=== PATIENT | female | born 1945 | race Caucasian/White ===

== ENCOUNTER 2022-10-04 09:24 | Outpatient (OUT) | payer MEDICARE, SELFPAY ==
--- NOTE | 2022-10-04 10:12 | CONS_ITS ---
CONSULTATION DATE: ??10/04/2022 TO:? Rusty Newman D.O. HISTORY:? Patient returns today complaining of 0-4/10 pain in her lower back, dull aching character, increased with activities such as standing, walking and performing transitioning maneuvers.? She feels most comfortable in the semi- recumbent position.? Denies any change in bowel and bladder habits or new sensorimotor changes in the lower extremities.? She has not required any tramadol since her last visit.? She is also taking Zanaflex infrequently, 2 mg b.i.d. as needed. EXAM:? Notable for patient having no clinical radiculopathy or myelopathy involving the lower extremities.? She had no pain with lumbar facet loading maneuvers.? She has nothing to suggest SI joint dysfunction.? In fact, her dysesthesia and hyperesthesia overlying the distribution of the lateral cutaneous branch of the iliohypogastric nerve has improved, and her myofascial spasm of the gluteus medius is also improved.? IMPRESSION:? Patient appears to have residual pain secondary to myofascial spasm, which is mild, of the gluteus medius muscle bilaterally.? She has undergone a successful radiofrequency ablation of the lateral cutaneous branch of the iliohypogastric nerve and she reports the pain as being improved by 90- 95%.? RECOMMENDATIONS:? I have asked her to discontinue tramadol altogether and to use the Zanaflex p.r.n.? We will see her back in the office in three months? time.? I recommend no further intervention for her residual pain symptoms.? As part of providing excellent, safe, comprehensive care, the following was completed at our patient's visit: 1. A medication reconciliation and review to ensure accurate knowledge of current/active medications, including asking our patients to inform us about any [id number]-[id number] medications or herbal remedies/nutritional supplements/alternative remedies. 2. A review to specifically ensure our patients have had annual screening for: elevated body mass index (BMI, see intake chart for exact total), tobacco use, screening for depression, and screening for unhealthy alcohol use.? When screening is concerning, patients are provided with education and the specific recommendation to discuss the concerning health issue and treatment options with their primary care provider. AVERY
== END 2022-10-04 09:25 | disposition home or self-care (01) ==
LOC: PM 09:24
PROVIDERS: PCP Internal Medicine; Visit Provider Anesthesiology Pain Medicine
DX: M62.838 Other muscle spasm (principal)
CPT/HCPCS: G0463

== ENCOUNTER 2023-01-10 08:38 | Outpatient (OUT) | payer MEDICARE, SELFPAY ==
--- NOTE | 2023-01-10 09:05 | P.CN_ITS ---
Consult Note: HPI Data of Consult Patient: known to practice within the last 3 years Requesting Physician: MIREYA KOROMA NP Primary Care Provider: SANGEETHA QUICK Consult Narrative Reason for consult: f/u Narrative: Rach Hernandez a pleasant 77 year old female presents for evalaution and management of chronic low back and bilateral buttock pain. Continues to have >50% pain relief and functional improvement from left and right LCIH RFAs from 09/04. Patient rating pain 6/10 today, had reclast infusion yesterday and has noticed increase in body aches and pain. Has not had zanaflex for one week and has noticed increase in pain. cc:: CC: MIREYA KOROMA NP Review of Systems ROS Status of ROS 10 or more systems reviewed and unremarkable except as noted in history and below Musculoskeletal Reports: back pain and joint pain Meds Home Medications and Allergies Home Medications Medication Instructions Recorded Confirmed Type acetaminophen 325 mg tablet (Aphen) 650 mg PO Q6H PRN pain 10/10/22 10/10/22 History levothyroxine 50 mcg capsule 50 mcg PO DAILY 10/11/22 10/11/22 History ropinirole 0.25 mg tablet 0.25 mg PO DAILY 10/11/22 10/11/22 History rosuvastatin 10 mg tablet 10 mg PO DAILY 10/11/22 10/11/22 History tizanidine 2 mg tablet 2 mg PO BID PRN spasm 10/11/22 10/11/22 History tramadol 50 mg tablet 50 mg PO BID 10/11/22 10/11/22 History zoledronic acid 5 mg/100 mL in ea IV .1 YEAR 01/10/23 History mannitol 5 %-water intravenous piggybck (Reclast) Allergies Allergy/AdvReac Type Severity Reaction Status Date / Time aspirin Allergy Verified 10/10/22 16:09 codeine Allergy Verified 10/10/22 16:09 iodine Allergy Verified 10/10/22 16:09 latex Allergy Verified 10/10/22 16:09 pregabalin [From Lyrica] Allergy Verified 10/10/22 16:09 Sulfa (Sulfonamide Allergy Verified 10/10/22 16:09 Antibiotics) lodine Allergy Uncoded 10/10/22 16:09 Exam Constitutional Documenting provider has reviewed patient's vital signs: yes Common normals: no apparent distress, oriented x3, healthy appearing, alert and well nourished General appearance: cooperative HENMA Common normals: normocephalic, hearing grossly normal bilaterally and moist oral mucous membranes Head and scalp: normocephalic Eye Common normals: PERRL Pupil: PERRL Neck & C-Spine Common normals: full ROM General: normal visual inspection Chest Common normals: inspection of chest normal Respiratory Common normals: normal respiratory effort, no retractions and no use of accessory muscles Back & Pelvis Thoracic spine/upper back: pain with ROM Lumbar spine/lower back: pain with ROM Sacroiliac joints: SI joint(s) abnormal Other: pain with jose l, FADER, ga[place]len. Right>L Extremity Common normals: normal to inspection and full ROM Other: diffuse mild joint pain Neuro Common normals: oriented x3, CN's II-XII intact bilaterally, moves all extremities, no focal motor deficits, no sensory deficits noted and deep tendon reflexes 2+ bilaterally Sensorium/orientation: alert Motor exam: strength 5/5 throughout and no movement abnormalities noted Psych Common normals: mental status grossly normal, thought process normal, cooperative, affect normal, speech normal and activity/motor behavior normal Speech: normal speech Thought process: normal thought process Results Additional Findings Additional findings: I have checked an [place]AR[place] report on this patient today and there are no aberrancies noted in the prescribing history.?? A drug screen was completed and reviewed within the last year, and if there has not been a drug screen completed we ordered one today to monitor higher risk, state monitored pain medication use. As part of providing excellent, safe, comprehensive care, the following was completed at our patient's visit: 1. A medication reconciliation and review to ensure accurate knowledge of current/active medications, including asking our patients to inform us about any [id number] medications or herbal remedies/nutritional supplements/alternative remedies. 2. A review to specifically ensure our patients have had annual screening for: elevated body mass index (BMI), tobacco use, screening for depression, and screening for unhealthy alcohol use. When screening is concerning, patients are provided with education and the specific recommendation to discuss the concerning health issue and treatment options with their primary care provider. Assessment and Plan Assessment and Plan (1) Chronic prescription opiate use: Assessment and Plan: UDS up to date discussed naloxone today, previously prescribed I feel these medications are improving the patient's quality of life and allow them to tolerate activities of daily living as well as participate in recreational activity.? The patient does not report intolerable side effects. The patient is NOT opioid naive and non-pharmacologic and non-opioid treatment has failed to significantly relieve the patient's pain and improve functionality. The patient has a diagnosis that is related to a somatic or visceral pain etiology. ? ?? I reviewed with the patient the potential risks and side effects with the use of? opioid medications including but not limited to respiratory depression,? sedation, and even . I verified the patient has access to naloxone should? these effects occur. I advised the patient to avoid the use of any other? sedation substances including alcohol, THC, and benzodiazepines while? taking opioid medications due to the risk of compounding side effects and? detrimental outcomes. I reviewed the [facility] [facility], pain treatment agreement, urine? drug screen, and opioid start talking forms. The patient was advised to let? their family know they had Naloxone in case they would need to administer? the medication.? ?? (2) Myalgia: (3) Osteoarthritis: (4) Chronic pain syndrome: (5) Lumbar spondylosis: (6) Unspecified mononeuropathy of right lower limb: Assessment and Plan: right LCIH neuritis >50% ongoing pain relief and functional improvement post RFA (7) Unspecified mononeuropathy of left lower limb: Assessment and Plan: right LCIH neuritis >50% ongoing pain relief and functional improvement post RFA (8) Osteoporosis: Assessment and Plan: yearly reclast, had yesterday Plan continue current medications f/u 3 months
== END 2023-01-10 08:39 | disposition home or self-care (01) ==
PROVIDERS: PCP Internal Medicine; Visit Provider Nurse Practitioner
DX: G89.29 Other chronic pain (principal); M47.816 Spondylosis without myelopathy or radiculopathy, lumbar region; M79.10 Myalgia, unspecified site; M19.90 Unspecified osteoarthritis, unspecified site; Z79.891 Long term (current) use of opiate analgesic
CPT/HCPCS: G0463

== ENCOUNTER 2023-04-10 08:35 | Outpatient (OUT) | payer MEDICARE, SELFPAY ==
--- NOTE | 2023-04-10 09:05 | P.CN_ITS ---
Consult Note: HPI Data of Consult Patient: known to practice within the last 3 years Requesting Physician: Rosina Fleming NP Primary Care Provider: SANGEETHA QUICK Consult Narrative Reason for consult: f/u Narrative: Rach Hernandez a pleasant 77 year old female presents for evalaution and management of chronic low back pain with radiculopathy.. Continues to have >50% pain relief and functional improvement from left and right [facility] RFAs from 09/04. Patient rating pain 6/10 today, worse with all activity improved with rest. Patient has been following with [facility] for left shoulder pain and cervical radiculopathy. cc:: CC: Rosina Fleming NP Review of Systems ROS Status of ROS 10 or more systems reviewed and unremark able except as noted in history and below Musculoskeletal Reports: back pain, neck pain, extremity pain and joint pain Meds Home Medications and Allergies Home Medications Medication Instructions Recorded Confirmed Type acetaminophen 325 mg tablet (Aphen) 650 mg PO Q6H PRN pain 10/10/22 10/10/22 History levothyroxine 50 mcg capsule 50 mcg PO DAILY 10/11/22 10/11/22 History ropinirole 0.25 mg tablet 0.25 mg PO DAILY 10/11/22 10/11/22 History rosuvastatin 10 mg tablet 10 mg PO DAILY 10/11/22 10/11/22 History tizanidine 2 mg tablet 2 mg PO BID PRN spasm 10/11/22 10/11/22 History tramadol 50 mg tablet 50 mg PO BID 10/11/22 10/11/22 History zoledronic acid 5 mg/100 mL in ea IV .1 YEAR 01/10/23 History mannitol 5 %-water intravenous piggybck (Reclast) Allergies Allergy/AdvReac Type Severity Reaction Status Date / Time aspirin Allergy Verified 10/10/22 16:09 codeine Allergy Verified 10/10/22 16:09 iodine Allergy Verified 10/10/22 16:09 latex Allergy Verified 10/10/22 16:09 pregabalin [From Lyrica] Allergy Verified 10/10/22 16:09 Sulfa (Sulfonamide Allergy Verified 10/10/22 16:09 Antibiotics) lodine Allergy Uncoded 10/10/22 16:09 Exam Constitutional Documenting provider has reviewed patient's vital signs: yes Common normals: no apparent distress, oriented x3, healthy appearing, alert and well nourished General appearance: cooperative HENNV Common normals: normocephalic, hearing grossly normal bilaterally and moist oral mucous membranes Head and scalp: normocephalic Eye Common normals: PERRL Pupil: PERRL Neck & C-Spine Common normals: full ROM General: normal visual inspection Other: pain with ROM positive spurlings left intermittent radiculopathy to left arm Chest Common normals: inspection of chest normal Respiratory Common normals: normal respiratory effort, no retractions and no use of accessory muscles Back & Pelvis Thoracic spine/upper back: pain with ROM Lumbar spine/lower back: pain with ROM and straight leg raise positive right Sacroiliac joints: SI joint(s) abnormal Other: pain with jose l, FADER, [place]. Right>L patient reports numbness tingling of left foot, positive right straight leg test Extremity Common normals: normal to inspection and full ROM Other: diffuse mild joint pain Neuro Common normals: oriented x3, CN's II-XII intact bilaterally, moves all extremities, no focal motor deficits, no sensory deficits noted and deep tendon reflexes 2+ bilaterally Sensorium/orientation: alert Motor exam: no movement abnormalities noted and strength abnormal (4/5 lue and BLE ) Psych Common normals: mental status grossly normal, thought process normal, cooperative, affect normal, speech normal and activity/motor behavior normal Speech: normal speech Thought process: normal thought process Assessment and Plan Assessment and Plan (1) Lumbar radiculopathy: (2) Chronic prescription opiate use: (3) Myalgia: (4) Chronic pain syndrome: (5) Lumbar spondylosis: (6) Osteoarthritis: (7) Osteoporosis: Plan L5 LENY under fluoroscopy with Dr Baker continue f/u with orthopedics at [facility] for left shoulder OA and cervical radiculopathy continue tramadol 50mg BID PRN and zanaflex 2mg PRN continue tylenol arthritis PRN f/u 2 weeks after injeciton
== END 2023-04-10 08:36 | disposition home or self-care (01) ==
LOC: PM 08:39
PROVIDERS: PCP Internal Medicine; Visit Provider Nurse Practitioner
DX: M54.16 Radiculopathy, lumbar region (principal); Z79.891 Long term (current) use of opiate analgesic; M79.10 Myalgia, unspecified site; G89.4 Chronic pain syndrome; M47.816 Spondylosis without myelopathy or radiculopathy, lumbar region; M19.90 Unspecified osteoarthritis, unspecified site; M81.0 Age-related osteoporosis without current pathological fracture
CPT/HCPCS: G0463

== ENCOUNTER 2023-05-07 07:18 | Day surgery (SDC) | payer MEDICARE, SELFPAY ==
--- OUTSIDE RECORDS SUMMARY | 2023-05-07 07:20 | XMS_ITS | CCD ---
Author Name Unknown Address [address] [place] [address] Organization [facility] Care Team Providers Care Backshoe Person Name Role Phone LAKSHMIPATHY, NARENDRANATH Attending Unava ilable LAKSHMIPATHY, NARENDRANATH Admitting Unava ilable YUHAS, DR VIVAS Primary Care Unavailable LAKSHMIPATHY, NARFAUSTINO Consulting Unava ilable FRACNI .MIREYA Consulting Unavailable BARRAZA ., DR YINKA Alford Consulting Unavailable BARRAZA ., DR YINKA Alford Attending Unavailable BARRAZA ., DR YINKA Alford Admitting Unavailable YUHAS, DR VIVAS Primary Care Unavailable BARRAZA ., DR YINKA Alford Attending Unavailable BARRAZA ., DR YINKA Alford Admitting Unavailable YUAN ., MARIELY Consulting Unavailable YUHAS, DR VIVAS Primary Care Unavailable LAKSHMIPATHY, TOÑA Attending Unava ilable LAKSHMIPATHY, NARENDBHUMIATH Admitting Unava ilable YUHAS, DR VIVAS Primary Care Unavailable LAKSHMIPATHY, NARFAUSTINO Admitting Unava ilable YUHAS, DR VIVAS Primary Care Unavailable LAKSHMIPATHY, TOÑA Attending Unava ilable BARRAZA ., DR YINKA Alford Attending Unavailable BARRAZA ., DR YINKA Alford Admitting Unavailable YUAN ., MARIELY Consulting Unavailable YUHAS, DR VIVAS Primary Care Unavailable LAKSHMIPATHY, TOÑA Attending Unava ilable LAKSHMIPATHY, NARENDBHUMIATH Admitting Unava ilable YUHAS, DR VIVAS Primary Care Unavailable LAKSHMIPATHY, TOÑA Consulting Unava ilable BARRAZA ., DR YINKA Alford Consulting Unavailable BARRAZA ., DR YINKA Alford Attending Unavailable BARRAZA ., DR YINKA Alford Admitting Unavailable YUHAS, DR VIVAS Primary Care Unavailable YUHAS, DR VIVAS Consulting Unavailable YUHAS, DR VIVAS Attending Unavailable YUHAS, DR VIVAS Admitting Unavailable YUHAS, DR VIVAS Primary Care Unavailable Ronaldo Rangel Consulting Unavailable BARRAZA ., DR YINKA Alford Consulting Unavailable BARRAZA ., DR YINKA Alford Attending Unavailable BARRAZA ., DR YINKA Alford Admitting Unavailable YUHAS, DR VIVAS Primary Care Unavailable YUAN ., MARIELY Consulting Unavailable BARRAZA ., DR YINKA Alford Attending Unavailable BARRAZA ., DR YINKA Alford Admitting Unavailable YUAN ., MARIELY Consulting Unavailable YUHAS, DR VIVAS Primary Care Unavailable BARRAZA ., DR YINKA Alford Attending Unavailable BARRAZA ., DR YINKA Alford Admitting Unavailable YUAN ., MARIELY Consulting Unavailable YUHAS, DR VIVAS Primary Care Unavailable BARRAZA ., DR YINKA Alford Attending Unavailable YUAN ., MARIELY Consulting Unavailable YUHAS, DR VIVAS Primary Care Unavailable BARRAZA ., DR YINKA Alford Admitting Unavailable LAKSHMIPATHY, NARENDRANATH Attending Unava ilable LAKSHMIPATHY, NARENDOMAR Admitting Unava ilable YURAFIQ, DR VIVAS Primary Care Unavailable LAKSHMIPATHY, NARENDRANATH Consulting Unava ilable SHANNEN BLAIR Consulting Unavailable LAKSHMIPATHY, NARENDRANATH Attending Unava ilable YUHAS, DR VIVAS Primary Care Unavailable LAKSHMIPATHY, NARENDRANATH Admitting Unava ilable LAKSHMIPATHY, NARENDRANATH Consulting Unava ilable Allergies Allergy Classification Reported Allergen(s) Allergy Type Date of Onset Reaction(s) Facility (1 source) Aspirin Drug Allergy [facility] Repository (1 source) Codeine Drug Allergy [facility] Rep[facility] (1 source) Etodolac Drug Allergy [facility] (1 source) Iodine Drug Allergy [facility] Rep[facility] (1 source) Latex Drug allergy (disorder) [facility] (1 source) pregabalin Drug Allergy [facility] Rep[facility] (1 source) Sulfonamides (Antibiotic) Drug allergy (disorder) [facility] Rep[facility] Problems Active Problems Problem Classification Problem Date Documented Date Episodic/Chronic Anxiety disorders (1 source) Anxiety disorder, unspecified; Translations: [ANXIETY DISORDER UNSPECIFIED] Onset: 08-22-2022 Chronic Other connective tissue disease (1 source) Other muscle spasm; Translations: [OTHER MUSCLE SPASM] Onset: 08-22-2022 Episodic Other hereditary and degenerative nervous system conditions (1 source) Restless legs syndrome; Translations: [RESTLESS LEGS SYNDROME] Onset: 01-13-2022 Chronic Other nervous system disorders (5 sources) Other specified mononeuropathies; Translations: [OTHER SPECIFIED MONONEUROPATHIES] Onset: 07-28-2022 Chronic Other nervous system disorders (4 sources) Other specified mononeuropathies of bilateral lower limbs; Translations: [OTH SPEC MONONEUROPATH MARCIANO LOW LIMB] Onset: 07-24-2022 Chronic Other nervous system disorders (5 sources) Other chronic pain; Translations: [OTHER CHRONIC PAIN] Onset: 02-13-2022 Chronic Other non-traumatic joint disorders (4 sources) Other specific arthropathies, not elsewhere classified, left shoulder; Translations: [OTH SPEC ARTHROPATHIES NEC LT SHLDR] Onset: 05-18-2022 Chronic Spondylosis; intervertebral disc disorders; other back problems (5 sources) Intervertebral disc disorders with myelopathy, lumbar region; Translations: [Other spondylosis with radiculopathy, lumbar region] Onset: 09-07-2021 Chronic Unclassified (1 source) LOW BACK PAIN, UNSPECIFIED; Translations: [LOW BACK PAIN, UNSPECIFIED] Onset: 02-13-2022 Past or Other Problems Problem Classification Problem Date Documented Date Episodic/Chronic Spondylosis; intervertebral disc disorders; other back problems (14 sources) Intervertebral disc disorders with radiculopathy, lumbar region; Translations: [Spinal stenosis, lumbar region without neurogenic claudication] Onset: 12-14-2021 Episodic Results Test Name Value Interpretation Reference Range Facility MRI SHOULDER LT WO CONon MRI SHOULDER LT WO CON EXAMINATION: MRI SHOULDER LT WO CON HISTORY: Arthropathy of left shoulder ; left shoulder pain since falling 2 months ago COMPARISON: No relevant comparison available. TECHNIQUE: A variety of imaging planes and parameters were utilized for visualization of suspected pathology. Imaging was performed without contrast. FINDINGS: ROTATOR CUFF REGION CUFF TENDONS: Disruption of the supraspinatus tendon with approximately 1.5 cm retraction. Evidence of prior rotator cuff repair. Narrowing of the acromial-humeral interval. CUFF MUSCLES: Normal appearing muscles. DELTOID: No significant atrophy or tear. LONG BICEPS TENDON: Poorly seen, but suspected to be intact. No increased fluid surrounding the visible tendon. LABRUM/BICEPS ANCHOR SUPERIOR: No visible labral tear or biceps anchor pathology. ANTERIOR/INFERIOR: No visible tear or attrition. POSTERIOR: No posterior labrum abnormality. CAPSULE No visible capsular laxity or thickening. AC JOINT REGION AC JOINT: Moderate to marked osteoarthropathy with mild-moderate narrowing of the underlying coracoacromial arch. AC LIGAMENTS: Normal acromioclavicular ligament. CC LIGAMENTS: Normal coracoclavicular ligaments. ACROMION: Normal horizontal (Type I) configuration. SUBACROMIAL BURSA: Small effusion. HYALINE CARTILAGE: Moderate marked thinning. OTHER BONES: Changes within lateral humeral head from prior rotator cuff repair. OTHER OBSERVATIONS: Negative. IMPRESSION: 1. Disruption and retraction of the supraspinatus tendon and moderate degenerative changes of the acromioclavicular joint.. 2. Prior rotator cuff repair. 3. Poorly seen long biceps tendon, but suspected to be intact. 4. Small subacromial-subdeltoid bursal fluid collection. 5. Thinning of articular cartilage. Electronically authenticated by: RONALDO RANGEL Date: 2022-05-18 09:45 Normal [facility] 08-29-2021 Albumin [Mass/Vol] 4.0 g/dL Normal 3.6-5.1 [facility] Comment on above: Performed By: #### 7 603, 879, 32640 #### [facility] [place] [address] Test Engine Operator: Finn Akins MD Albumin/Globulin [Mass ratio] 1.9 {ratio} Normal 1.0-2.5 [facility] Comment on above: Performed By: #### 7 946, 373, 73371 #### [facility] [place] [address] Test Engine Operator: Finn Akins MD ALP [Catalytic activity/Vol] 56 U/L Normal 37-153 [facility] Comment on above: Performed By: #### 7 010, 498, 19525 #### [facility] [place] [address] Test Engine Operator: Finn Akins MD ALT [Catalytic activity/Vol] 18 U/L Normal 6-29 [facility] Comment on above: Performed By: #### 7 600, 927, 50380 #### [facility] of [address], [address] [place] [address] Test Engine Operator: Finn Akins MD AST [Catalytic activity/Vol] 18 U/L Normal 10-35 [facility] Comment on above: Performed By: #### 7 600, 927, 76953 #### [facility] of [address], [address] [place] [address] Test Engine Operator: Finn Akins MD Bilirubin [Mass/Vol] 0.4 mg/dL Normal 0.2-1.2 [facility] Comment on above: Performed By: #### 7 600, 927, 29316 #### [facility] of [place] [address] Test Engine Operator: Finn Akins MD BUN/CREATININE RATIO NOT APPLICABLE Normal 6-22 [facility] Comment on above: Performed By: #### 7 600, 927, 79623 #### [facility] of [address], [address] [place] [address] Test Engine Operator: Finn Akins MD Calcium [Mass/Vol] 8.8 mg/dL Normal 8.6-10.4 [facility] Comment on above: Performed By: #### 7 600, 927, 08749 #### [facility] of [place] [address] Test Engine Operator: Finn Akins MD Chloride [Moles/Vol] 106 mmol/L Normal 98-110 [facility] Comment on above: Performed By: #### 7 600, 927, 61007 #### [facility] of [address], [address] [place] [address] Test Engine Operator: Finn Akins MD CO2 [Moles/Vol] 30 mmol/L Normal 20-32 [facility] Comment on above: Performed By: #### 7 600, 927, 32544 #### [facility] of [address], [address] [place] [address] Test Engine Operator: Finn Akins MD Creatinine [Mass/Vol] 0.67 mg/dL Normal 0.60-0.93 [facility] Comment on above: Result Comment: For patients >49 years of age, the reference limit for Creatinine is approximately 13% higher for people identified as -Tuvaluan. Performed By: #### 7 600, 927, 01041 #### [facility] [address], [address] [place] [address] Test Engine Operator: Finn Aikns MD eGFR NON-AFR. SUDANESE 87 mL/min/1.73m2 Normal > OR = 60 [facility] Comment on above: Performed By: #### 7 600, 927, 73316 #### [facility] [address], [address] [place] [address] Test Engine Operator: Finn Akins MD GFR/1.73 sq M.predicted among blacks MDRD (S/P/Bld) [Vol rate/Area] 101 mL/min/{1.73_m2} Normal > OR = 60 [facility] Comment on above: Performed By: #### 7 600, 927, 17437 #### [facility] [address], [address] [place] [address] Test Engine Operator: Finn Akins MD Globulin (S) [Mass/Vol] 2.1 g/dL Normal 1.9-3.7 [facility] Comment on above: Performed By: #### 7 600, 927, 99253 #### [facility] [address], [address] [place] [address] Test Engine Operator: Finn Akins MD Glucose [Mass/Vol] 96 mg/dL Normal 65-99 [facility] Comment on above: Result Comment: Fasting reference interval Performed By: #### 7 600, 927, 32833 #### [facility] [place] [address] Test Engine Operator: Finn Akins MD Potassium [Moles/Vol] 3.9 mmol/L Normal 3.5-5.3 [facility] Comment on above: Performed By: #### 7 600, 927, 69862 #### [facility] of [address], [address] [place] [address] Test Engine Operator: Finn Akins MD Protein [Mass/Vol] 6.1 g/dL Normal 6.1-8.1 [facility] Comment on above: Performed By: #### 7 600, 927, 24012 #### [facility] of [address], [address] [place] [address] Test Engine Operator: Finn Akins MD Sodium [Moles/Vol] 143 mmol/L Normal 135-146 [facility] Comment on above: Performed By: #### 7 600, 927, 32491 #### [facility] of [place] [address] Test Engine Operator: Finn Akins MD Urea nitrogen [Mass/Vol] 17 mg/dL Normal 7-25 [facility] Comment on above: Performed By: #### 7 600, 927, 50814 #### [facility] [place] [address] Test Engine Operator: Finn Akins MD LIPID PANEL, [address] Cholesterol [Mass/Vol] 126 mg/dL Normal <200 [facility] Comment on above: Order Comment: FASTI NG:YES FASTING: YES Performed By: #### 7 600, 927, 64597 #### [facility] of [place] [address] Test Engine Operator: Finn Akins MD Cholesterol in HDL [Mass/Vol] 46 mg/dL Low > OR = 50 [facility] Comment on above: Order Comment: FASTI NG:YES FASTING: YES Performed By: #### 7 600, 927, 42471 #### [facility] of [place] [address] Test Engine Operator: Finn Akins MD Cholesterol in LDL [Mass/Vol] 63 mg/dL Normal [facility] Comment on above: Order Comment: FASTI NG:YES FASTING: YES Result Comment: Refe rence range: <100 Desirable range <100 mg/dL for primary prevention; <70 mg/dL for patients with CHD or diabetic patients with > or = 2 CHD risk factors. LDL-C is now calculated using the Agnes calculation, which is a validated novel method providing better accuracy than the Friedewald equation in the estimation of LDL-C. Aguilar HOLCOMB et al. MCKAY. 2013;310(19): 8763-6774 (http://education.Traffio/faq/WUZ823) Performed By: #### 7 600, 927, 46964 #### [facility] [address], [address] [place] [address] Test Engine Operator: Finn Akins MD Cholesterol.total/ Cholesterol in HDL [Mass ratio] 2.7 {ratio} Normal <5.0 [facility] Comment on above: Order Comment: FASTI NG:YES FASTING: YES Performed By: #### 7 600, 927, 77439 #### [facility] [place] [address] Test Engine Operator: Finn Akins MD NON HDL CHOLESTEROL 80 mg/dL (calc) Normal <130 [facility] Comment on above: Order Comment: FASTI NG:YES FASTING: YES Result Comment: For patients with diabetes plus 1 major ASCVD risk factor, treating to a non-HDL-C goal of <100 mg/dL (LDL-C of <70 mg/dL) is considered a therapeutic option. Performed By: #### 7 600, 927, 47171 #### [facility] [place] [address] Test Engine Operator: Finn Akins MD Triglyceride [Mass/Vol] 86 mg/dL Normal <150 [facility] Comment on above: Order Comment: FASTI NG:YES FASTING: YES Performed By: #### 7 600, 927, 11855 #### [facility] [place] [address] Test Engine Operator: Finn Akins MD VITAMIN B12on 08-29-2021 Cobalamin (Vitamin B12) [Mass/Vol] 184 pg/mL Low 200-1100 [facility] Comment on above: Performed By: #### 7 600, 927, 74798 #### [facility] [place] [address] Test Engine Operator: Finn Akins MD BASIC METABOLIC PANELon Calcium [Mass/Vol] 9.2 mg/dL Normal 8.6-10.4 [facility] Comment on above: Performed By: #### 9 27, 27163, 30259 #### [facility] [place] [address] Test Engine Operator: Finn Akins MD Chloride [Moles/Vol] 102 mmol/L Normal 98-110 [facility] Comment on above: Performed By: #### 9 , 83577, 19207 #### [facility] [place] [address] Test Engine Operator: Finn Akins MD CO2 [Moles/Vol] 28 mmol/L Normal 20-32 [facility] Comment on above: Performed By: #### 9 , 09441, 03309 #### [facility] [place] [address] Test Engine Operator: Finn Akins MD Creatinine [Mass/Vol] 0.56 mg/dL Low 0.60-0.93 [facility] Comment on above: Result Comment: For patients >49 years of age, the reference limit for Creatinine is approximately 13% higher for people identified as -Tuvaluan. Performed By: #### 9 27, 31439, 55156 #### [facility] [place] [address] Test Engine Operator: Finn Akins MD eGFR NON-AFR. SUDANESE 93 mL/min/1.73m2 Normal > OR = 60 [facility] Comment on above: Performed By: #### 9 , 16566, 22660 #### [facility] [place] [address] Test Engine Operator: Finn Akins MD GFR/1.73 sq M.predicted among blacks MDRD (S/P/Bld) [Vol rate/Area] 107 mL/min/{1.73_m2} Normal > OR = 60 [facility] Comment on above: Performed By: #### 9 27, 75281, 30803 #### [facility] [place] [address] Test Engine Operator: Finn Akins MD Glucose [Mass/Vol] 97 mg/dL Normal 65-99 [facility] Comment on above: Result Comment: Fasting reference interval Performed By: #### 9 27, 23951, 94997 #### [facility] [address], [address] [place] [address] Test Engine Operator: Finn Akins MD Potassium [Moles/Vol] 3.8 mmol/L Normal 3.5-5.3 [facility] Comment on above: Performed By: #### 9 27, 99660, 72773 #### [facility] [place] [address] Test Engine Operator: Finn Akins MD Sodium [Moles/Vol] 140 mmol/L Normal 135-146 [facility] Comment on above: Performed By: #### 9 27, 95314, 24276 #### [facility] [place] [address] Test Engine Operator: Finn Akins MD Urea nitrogen [Mass/Vol] 14 mg/dL Normal 7-25 [facility] Comment on above: Performed By: #### 9 27, 63276, 75348 #### [facility] [place] [address] Test Engine Operator: Finn Akins MD Urea nitrogen/Creatinin e [Mass ratio] 25 mg/mg High 6-22 [facility] Comment on above: Performed By: #### 9 27, 67833, 99772 #### [facility] [place] [address] Test Engine Operator: Finn Akins MD TSH+FREE T4on 04-19-2021 Free T4 [Mass/Vol] 1.2 ng/dL Normal 0.8-1.8 [facility] Comment on above: Performed By: #### 9 27, 76679, 98701 #### [facility] [address], [address] [place] [address] Test Engine Operator: Finn Akins MD TSH Qn 0.55 m[IU]/L Normal 0.40-4.50 [facility] Comment on above: Performed By: #### 9 27, 14891, 23879 #### [facility] [address], [address] [place] [address] Test Engine Operator: Finn Akins MD VITAMIN B12on 04-19-2021 Cobalamin (Vitamin B12) [Mass/Vol] 133 pg/mL Low 200-1100 [facility] Comment on above: Performed By: #### 9 27, 46908, 26317 #### [facility] [address], [address] [place] [address] Test Engine Operator: Finn Akins MD Encounters Encounter Date Encounter Type Care Provider Facility Start: 09-28-2022 ambulatory NARENDRANATH LAKSHMIPAT HY Facility:[facility] Start: 09-04-2022 ambulatory NARENDRANATH LAKSHMIPAT HY Facility:[facility] Start: 08-28-2022 End: 08-28-2022 ambulatory NARENDRANATH LAKSHMIPATHY Facility:[facility] Start: 08-16-2022 End: 08-17-2022 ambulatory NARENDRANATH LAKSHMIPATHY Facility:[facility] Start: 07-24-2022 End: 07-24-2022 ambulatory NARENDRANATH LAKSHMIPATHY Facility:[facility] Start: 07-19-2022 End: 07-20-2022 ambulatory NARENDRANATH LAKSHMIPATHY Facility:[facility] Start: 05-18-2022 End: 05-19-[address] SANGEETHA QUICK Facility:[facility] Start: 04-26-2022 End: 04-27-[address] YINKA BARRAZA . Facility:[facility] Start: 04-03-2022 End: 04-03-[address] YINKA BARRAZA . Facility:[facility] Start: 03-27-2022 End: 03-28-[address] YINKA BARRAZA . Facility:[facility] Start: 02-08-2022 End: 02-09-[address] YINKA BARRAZA . Facility:[facility] Start: 01-16-2022 End: 01-16-[address] YINKA BARRAZA . Facility:[facility] Start: 01-11-2022 End: 01-12-[address] YINKA BARRAZA . Facility:[facility] Start: 12-14-2021 End: 12-15-[address] YINKA BARRAZA . Facility:[facility] Start: 09-07-2021 End: 09-08-[address] YINKA BARRAZA . Facility:[facility] Payers Date Payer Category Payer Medicare [id number] 1957 Private Health Insurance CLI [id number] 1945 Unknown [id number] 2.16.84 [id number] 1945 Unknown [id number] 2.16.84 [id number] 1945 Unknown [id number] 2.16.84 [id number] 1945 Unknown [id number] 2.16.84 0.1.235583.3.579.2.593 1945 Unknown [id number] 2.16.84 0.1.383825.3.579.2.593 1945 Unknown [id number] 2.16.84 0.1.974034.3.579.2.593 1945 Unknown [id number] 2.16.84 0.1.210028.3.579.2.593 1945 Unknown [id number] 2.16.84 0.1.153150.3.579.2.593 1945 Unknown [id number] 2.16.84 0.1.036461.3.579.2.593 1945 Unknown [id number] 2.16.84 0.1.039036.3.579.2.593 1945 Unknown [id number] 2.16.84 0.1.461350.3.579.2.593 1945 Unknown [id number] 2.16.84 0.1.850222.3.579.2.593 1945 Unknown [id number] 2.16.84 0.1.424674.3.579.2.593 1945 Unknown [id number] 2.16.84 [id number] 1945 Unknown [id number] 2.16.84 [id number] Consultation note 07-19-2022 Note Date & Type Note Facility 07-19-2022 Note CONSULTATION CONSULTATION DATE: 07/19/2022 TO: Dr. Quick CHIEF COMPLAINT: Includes severe bilateral, right worse than left, buttock pain, hip pain. HISTORY: She describes the pain as 5-7/10 pain, burning in nature with a sharp component, increases with light touch to the area as well as pain with standing, walking and performing transitioning maneuvers. She feels most comfortable in the semi-recumbent position. Denies any change in bowel and bladder habits or new sensorimotor changes in the lower extremities EXAM: Notable for patient having no clinical radiculopathy or myelopathy involving the lower extremities. No pain with lumbar facet joint loading maneuvers. There was significant dysesthesia and hyperesthesia overlying the distribution of the lateral cutaneous branch of the iliohypogastric nerve, more significant on the right than the left side. She had associated myofascial spasm of the lumbar paravertebral muscles as well as the gluteus medius, more significant on the right than the left side. 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 RECOMMENDATIONS: I have increased her Zanaflex 2 mg pill, half a pill to one pill b.i.d. She currently is taking it not on a daily basis. I placed her on Neurontin 100 mg b.i.d. Will proceed with an injection of the lateral cutaneous branch of the iliohypogastric nerve bilaterally under fluoroscopic guidance. As part of providing excellent, safe, comprehensive care, the following was completed at our patient's visit: 1. A medication reconciliation and review to ensure accurate knowledge of current/active medications, including asking our patients to inform us about any [id number] medications or herbal remedies/nutritional supplements/alternative remedies. 2. A review to specifically ensure our patients have had annual screening for: elevated body mass index (BMI, see intake chart for exact total), tobacco use, screening for depression, and screening for unhealthy alcohol use. When screening is concerning, patients are provided with education and the specific recommendation to discuss the concerning health issue and treatment options with their primary care provider. [facility] Consultation note 04-26-2022 Note Date & Type Note Facility 04-26-2022 Note CONSULTATION CONSULTATION DATE: 04/26/2022 HISTORY OF PRESENT ILLNESS: This is a very active, 76-year-old female who returns to the clinic status post lumbar epidural steroid injection completed on 04/03/2022. The patient has received 90% relief and it is ongoing. The patient has commented she is able to lie in bed, transition from bed to standing and just sit without any pain. Her functionality has greatly increased. She does have some increased pain during the evening hours or with increased activity. During those times, her pain will increase to 4/10. At rest today, she is 2/10. She did have a fall last month and hurt her left shoulder, and she is currently under the care of her PCP, Dr. Quick for that management. He has placed her on Zanaflex 4 mg daily and a short course of oral prednisone. Our clinic gives her Requip 1 mg at h.s. and tramadol 50 mg 1- 2 daily p.r.n. Since the procedure, the patient rarely needs the tramadol more than once a day. Patient's REVIEW OF SYSTEMS / PAST MEDICAL HISTORY / ALLERGIES and IMAGES have been reviewed and noted in the chart. PHYSICAL EXAM: VITAL SIGNS: Blood pressure is 148/80. Heart rate is 77. Temperature is 97.7. She is 4'10 and weighs 68 kg. GENERAL IMPRESSION: Pleasant, appropriate, no acute distress. FOCUSED EXAM - BACK: Range of motion is functional in lateral rotation and flexion/extension. Paravertebral muscles are non-spasmodic. No spinal axial pain to deep compression on her lumbar spine. Nicky's point mildly tender to the left. Negative FABERs and compression test. MUSCULOSKELETAL: Motor is intact bilaterally, 4/5. Patient walks unassisted with a steady gait. NEUROLOGICALLY: Patchy hypoesthesia noted along the L1-L2 distribution to the mid thigh region. +1 bilateral patellar and Achilles reflexes. DIAGNOSIS: Lumbar degenerative disc disease, lumbar spinal canal stenosis, lumbar radiculopathy. PLAN: Overall, the patient is doing great. She is not needing her tramadol as often, even though it was increased at her last visit. For her next refill, we will decrease it to 50 mg b.i.d. only. Patient has a pending Neurosurgery consult within the next month or so, and she was asked to update our office once she has that appointment. We will continue to manage her medications for her, at this time, with no other changes. We will see her in three months' time unless otherwise indicated. [facility] Consultation note 03-27-2022 Note Date & Type Note Facility 03-27-2022 Note CONSULTATION CONSULTATION DATE: 03/27/2022 CHIEF COMPLAINT: Low back pain with radiating pain into her leg. HISTORY OF PRESENT ILLNESS: This is a very pleasant, 76-year-old female who is known to the Pain Clinic. The patient has an MRI of 03/29/2021, which was reviewed in office today. She had spinal canal stenosis at the level of L4-L5, herniated disc at the level of L3-L4. The patient reports having increasing pain, radiating into her leg bilaterally. She rates it as a 10/10, electrical feeling. Sitting aggravates the pain. Standing, walking mitigate the pain. Laying down mitigates the pain. She has difficulty with sleeping. She uses Salonpas patch. Bearing down with bowel movements aggravate the patient's pain. The patient currently takes Requip 1 mg, takes tramadol 50 mg daily. We will increase this to t.i.d. The patient also takes Tylenol Arthritis. Baclofen 10 mg h.s. will be added. The patient's PAST MEDICAL HISTORY / SURGICAL HISTORY / REVIEW OF SYSTEMS are noted on the chart along with the MEDICATION LIST / ALLERGIES and the MRI. PHYSICAL EXAM: Upon physical examination, this is a pleasant, cooperative female who looks uncomfortable. VITAL SIGNS: Elevated at 162/98 with a heart rate of 68. At a height of 4'10 , the patient weighs 67 kg. HEAD: Atraumatic. NECK: No overt crepitus is noted. HEART: No orthopnea. LUNGS: No dyspnea. ABDOMEN: Soft, non-distended. BACK: No tenderness or paravertebral spasming is noted. EXTREMITIES: Hypoesthesia is present along the L4 distribution on the left hand side compared to the right hand side. Motor is intact. Slight fade is noted along the anterior tibialis on the left hand side. PSYCHIATRICALLY: Affect is appropriate. IMPRESSION: Lumbar radiculitis, radiculopathy, lumbar spinal canal stenosis, lumbar degenerative disc disease, lumbar disc displacement. PLAN: We will add the baclofen 10 mg h.s. Tramadol will be increased to t.i.d. We shall request a Neurosurgical consult. The patient, in the interim, will receive a lumbar epidural steroid injection to help her through the holidays. The patient understands and would like to proceed. CC: Sangeetha Quick D.O. [facility] Consultation note 02-08-2022 Note Date & Type Note Facility 02-08-2022 Note CONSULTATION CONSULTATION DATE: 02/08/2022 This is a very pleasant and active 76-year-old female who returned to the clinic status post lumbar epidural steroid injection completed on 01/17/2022. The patient states she was afforded 75% relief and it is ongoing. She still experiences night time leg cramps despite being on Requip 1 mg q.h.s. She does take tramadol 50 mg q. day p.r.n. in addition to vitamin B 12. She has tried Lyrica and gabapentin in the past, she is unable to tolerate it due to significant GI upset. She still experiences some right lower lumbar pain but it is episodic, depending on her activity. Housework, sitting, pushing, pulling and lifting aggravates her pain. She does use heat which is beneficial to her. She denies any lower extremity weakness. REVIEW OF SYSTEMS, PAST MEDICAL HISTORY, ALLERGIES AND IMAGES: Have been reviewed and noted in the chart. PHYSICAL EXAM: VITAL SIGNS: Blood pressure 126/74, heart rate is 65, temperature is 97.3. Height is 4'10, weighs 68 kg. GENERAL APPEARANCE: Pleasant, appropriate and in no acute distress. FOCUSED EXAM: BACK: Range of motion was functional in lateral rotation and flexion/extension. Paravertebral muscles are non-spasmodic. Mild spinoaxial pain upon compression of the lower lumbar facets of L4, L5 and S1 to the right. Nicky's point nontender bilaterally. MUSCULOSKELETAL: Muscle atrophy noted bilateral lower extremities, however, she has a stable and steady gait. She does not use an assistive device. Slight motor weakness to bilateral anterior tibialis, extensors are intact. NEUROLOGICAL: Diffuse polyneuropathy bilateral lower extremities to the foot. Plus 1 bilateral patellar reflexes. DIAGNOSIS: Lumbar spinal canal stenosis, lumbar radiculitis, lumbar degenerative diffuse and chronic lower back pain. PLAN: I did recommend her to take magnesium 400 mg q. day. I explained that this possibly helped with her leg cramps. She currently does not take a multivitamin but was strongly encouraged to do so. We will send a refill for her Tramadol 50 mg q. day p.r.n. We will see her in three months' time unless otherwise indicated. The patient agrees with this plan. [facility] Consultation note 01-11-2022 Note Date & Type Note Facility 01-11-2022 Note CONSULTATION CONSULTATION DATE: 01/11/2022 HISTORY OF PRESENT ILLNESS: This is a pleasant and active, 76-year-old female returning to the clinic for a one month follow up and medication evaluation. Patient was last seen on 12/14/2021 which, at that time, she was placed on Lyrica 50 mg daily for 30 days. Patient unfortunately experienced projectile vomiting with the medication despite taking it with food and different times during the day. She has since stopped taking it. Patient does have known spinal canal stenosis and restless leg syndrome. She was placed on Requip in the past at 0.25 mg. The patient is feeling slight benefit to it, but her evening and sleep hours are the worst. She feels her restless leg is getting progressively worse. She does occasionally do stretches in a sitting forward flexion stance, which decreases the radiating pain down her right leg. Activities that aggravate her pain are twisting, prolonged sitting, lying down and transitioning positions. She currently does not use heat or ice. In addition to the Requip, she takes tramadol 50 mg daily p.r.n. in addition to Tylenol Arthritis. The patient is unable to take NSAIDs due to GI issues. The patient denies any new pain pattern, falls or vasomotor weakness. Patient's REVIEW OF SYSTEMS / PAST MEDICAL HISTORY / ALLERGIES and IMAGES have been reviewed and they are noted on the chart. PHYSICAL EXAM: VITAL SIGNS: Blood pressure 137/77, heart rate is 69. Temperature is 97.5. She is 4'10 and weighs 65.8 kg. GENERAL IMPRESSION: Pleasant, appropriate, no acute distress. FOCUSED EXAM - BACK: Range of motion is functional in lateral rotation and flexion/extension. Paravertebral muscles are non-spasmodic. Upon compression of the posterior elements of the lumbar facets, no reproduction of spinal axial pain. Nicky's point mildly tender to the right with no radiating pain. FABERs and compression test are negative MUSCULOSKELETAL: Muscle atrophy noted diffusely bilateral lower extremities, right greater than left. There is atrophy to the right anterior tibialis. Extensors are intact. +1 bilateral patellar and Achilles reflexes. NEUROLOGICAL: Patchy hypoesthesia noted along the L5-S1 dermatome to the right to the level of the toes. DIAGNOSIS: Lumbar spinal canal stenosis, lumbar radiculitis, lumbar degenerative disc disease and restless leg syndrome. PLAN: We will increase the Requip to 1 mg q.h.s. Unfortunately, since the patient is unable to tolerate the Lyrica, that medication will be discontinued. We will move forward with a lumbar epidural steroid injection at the level of L3, L4 and patient was instructed to continue doing the seated flexion stretches for relief. I did encourage a menthol heat rub and heat application. The patient will be brought back to the clinic post procedure and all questions answered. Patient would like to move forward. [facility] Consultation note 12-14-2021 Note Date & Type Note Facility 12-14-2021 Note CONSULTATION PROCEDURE DATE: 12/14/2021 PREOPERATIVE DIAGNOSIS: Bilateral lumbar paravertebral spasms. POSTOPERATIVE DIAGNOSIS: Bilateral lumbar paravertebral spasms. PROCEDURE: Bilateral lumbar trigger point injection x2. Subsequent to obtaining informed consent, the patient was placed in the upright standing forward flexion position. Alcohol prep was used to sterilize the site. A 25 gauge needle with 0.125% Marcaine and 40 mg of Kenalog was divided into two locations. The needle was placed to rest inside the trigger zone. Negative heme. Medication was directed in a fan-like pattern. Patient tolerated the procedure well with no overt complications and will be followed up in the office. [facility] Consultation note 12-14-2021 Note Date & Type Note Facility 12-14-2021 Note CONSULTATION CONSULTATION DATE: 12/14/2021 HISTORY OF PRESENT ILLNESS: This is a pleasant, 75-year-old female returning to the clinic for a three month follow up for her chronic lower back pain. She had lumbar RFAs bilaterally completed in June of 2021. She is complaining of 6-7/10 sharp pain today diffusely across her lower back and radiating pain down her left leg to the level of the dorsum of her foot. It is aggravated by pushing, pulling, lifting, bending and walking. Intermittent use of alternating heat and ice decreases her pain. Medications include tramadol 50 mg daily p.r.n. and Requip 0.25 mg p.r.n. She does use Salonpas patches which are helpful. She does not use an assistive device to walk, and she is ambulatory, active and caring for her two elderly parents. Patient's REVIEW OF SYSTEMS / PAST MEDICAL HISTORY / ALLERGIES and IMAGES have been reviewed and they are noted on the chart. PHYSICAL EXAM: VITAL SIGNS: Blood pressure 118/74, heart rate is 73. Temperature is 97.3. She is 4'10 and weighs 67.6 kg. GENERAL APPEARANCE: Pleasant, appropriate, in no acute distress. FOCUSED EXAM - BACK: Range of motion is functional in lateral rotation and flexion/extension. Paravertebral muscles are taut bilaterally with trigger points identified in bilateral lower lumbar regions. Compression on those regions reproduces patient's pain symptomatology. Nicky's point is non-tender bilaterally and no reproduction of spinal axial pain to compression over the lumbar facets. MUSCULOSKELETAL: Motor is intact, 4/5 bilaterally. Diffuse muscle atrophy noted to bilateral lower extremities. Patient walks with a stable antalgic gait. NEUROLOGICAL: Patchy hypoesthesia noted along the L5 dermatome to the left to the dorsum of the foot. Bilateral patellar and Achilles reflexes are +1. DIAGNOSIS: Lumbar radiculitis, lumbar paravertebral spasms, lumbar degenerative disc disease. PLAN: I discussed with the patient regarding treatment for her radicular pain. We could approach this from a lumbar epidural steroid injection or try a conservative approach with Lyrica. Patient prefers to try the Lyrica first. We will begin with 50 mg in the evening for 30 days. She will be brought back to the clinic in 30 days time for re-evaluation and to revise her plan of as needed. Refill for her tramadol 50 mg daily p.r.n. and Requip 0.25 mg will be sent for her today. She will receive bilateral lumbar trigger point injections, as well, which she does consent to. [facility] Consultation note 09-07-2021 Note Date & Type Note Facility 09-07-2021 Note CONSULTATION CONSULTATION DATE: 09/07/2021 HISTORY OF PRESENT ILLNESS: This is a pleasant, 75-year-old patient who returns to the clinic for a one month appointment following bilateral trigger point injections. The patient states she feels better than she has in a long, long time. At her last appointment, we also restarted her Requip and tramadol. Since then, patient feels her muscle cramps in her lower extremities as well as her back pain and neuropathy are much better controlled. She has also lost 12 pounds in preparation for surgery in the fall. She was referred to [facility] Neuro[facility] and is planning to have surgery in the fall following harvest season. 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 Patient feels that she can make it through the summer with a combination of her medication and occasional trigger point injections. 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 She uses heat daily which decreases her pain. In addition to the Requip and tramadol, she does use Salonpas patches. Patient's REVIEW OF SYSTEMS / PAST MEDICAL HISTORY / ALLERGIES and IMAGES have been reviewed and they are noted on the chart. PHYSICAL EXAM: VITALS: Blood pressure 114/59, heart rate is 74. Temperature is 97.5. She is 4'10 and weighs 71 kg. GENERAL APPEARANCE: Pleasant, appropriate and vital. FOCUSED EXAM - BACK: Range of motion is somewhat guarded in lateral rotation and flexion/extension. No reproduction of spinal axial pain to direct compression along the posterior elements of the facets. Bilateral paravertebral muscles are non-spasmodic. MUSCULOSKELETAL: Patient with obvious weight loss. Slight muscle disuse to her lower extremities. Patient ambulates with a steady gait, does not use assistive device. NEUROLOGICALLY: Patchy hypoesthesia noted along L4-5 dermatomes bilaterally. Diffuse polyneuropathy. IMPRESSION: Lumbar spinal canal stenosis, lumbar radiculopathy, lumbar degenerative disc disease and lumbar spondylosis. PLAN: Overall, patient feels her pain is very well managed. We will obtain a U-Tox in the office today. We will continue to maintain her Requip and tramadol. Nutrition and vitamin importance was stressed, as was encouraging her to continue her weight loss journey. Patient was informed that she may call mid summer if she feels the need for trigger point injections that can bridge her to her surgery in the fall. Patient states understanding and agrees with the plan of care. She will be seen in three months' time, unless otherwise indicated. [facility] Signed and Approved by: MARIELY YUAN . 09/14/2021 16:04:00 [facility] Summary Purpose Family History No Family History Records FoundNo Family History Records Found Advance Directives No Advanced Directives Records FoundNo Advanced Directives Records Found Additional Source Comments INFORMATION SOURCE (unrecogn ized section and content) DATE CREATED AUTHOR 09/01/2021 [facility] DATE CREATED AUTHOR AUTHOR'S ORGANIZ ATION 08/29/2022 [facility] FOR RECORDS PERTAINING TO PATIENTS WHO ARE OR HAVE BEEN ENROLLED IN A CHEMICAL DEPENDENCY/SUBSTANCEABUSE PROGRAM, SOME INFORMATION MAY BE OMITTED. This clinical summary was aggregated from multiple sources. Caution should be exercised in using it in the provision of clinical care. This summary normalizes information from multiple sources, and as a consequence, information in this document may materially change the coding, format and clinical context of patient data. In addition, data may be omitted in some cases. CLINICAL DECISIONS SHOULD BE BASED ON THE PRIMARY CLINICAL RECORDS. [employer] [facility]. provides no warranty or guarantee of the accuracy or completeness of information in this document.
[2023-05-07 07:35] VITALS: BP 151/79; PULSE 77; RESP 16; TEMP 36.2; O2SAT 98
[2023-05-07] MEDS: IOHEXOL 240 MG/ML - 10 ML VIAL INJ (08:45)
[2023-05-07] MEDS: 0.9 % SODIUM CHLORIDE 10 ML SYRINGE - SALINE FLUSH 2 ML INJ (08:45)
[2023-05-07] MEDS: BUPIVACAINE HCL 0.25% PF 25 MG/10 ML VIAL 2 ML INJ (08:45)
[2023-05-07] MEDS: METHYLPREDNISOLONE ACETATE 80 MG/ML VIAL INJ (08:45)
[2023-05-07] MEDS: LIDOCAINE HCL 2% PF 100 MG/5 ML VIAL 3 ML INJ (08:45)
[2023-05-07 08:47] VITALS: BP 188/84; BP 188/99; PULSE 78; PULSE 80; RESP 16; RESP 17; O2SAT 97; O2SAT 98
--- NOTE | 2023-05-07 09:10 | P.ON_ITS ---
Date of procedure: 05/07/23 Pre-op diagnosis: Lumbar Radiculopathy Post-op diagnosis: same as pre-op Procedure: Lumbar 5 Epidural Steroid Injection Under fluoroscopic guidance Immediate complications none Solution used for injection: Marcaine 0.25% 2mL, 2cc Normal saline, Depo-Medrol 80mg Omnipaque 3 mL Anesthesia local 2% lidocaine up to 4ml Timeout process compliant After informed consent obtained. Patient brought to the procedure room placed in the prone position. Skin overlying the area was prepped and draped in a sterile fashion using betadine. 25 gauge needle used to raise a skin wheel with local anesthetic over the target area identified under fluoroscopy. A 17 gauge Touhy n eedle Was inserted over the anesthetized area and directed towards the inter- space under fluoroscopic guidance. Epidural space was identified with loss of resistance technique to air. Needle Tip placement confirmed with injection of contrast solution. Steroid solution was then injected. Anesthesia: Local Surgeon: Suma Baker Condition: stable
== END 2023-05-07 08:54 | disposition home or self-care (01) ==
LOC: SURGOUT 07:18
PROVIDERS: PCP Internal Medicine; Visit Provider Anesthesiology Pain Medicine
DX: M54.16 Radiculopathy, lumbar region (principal)
CPT/HCPCS: 62323; J0665; J1040; Q9966

== ENCOUNTER 2023-05-23 09:45 | Outpatient (OUT) | payer MEDICARE, SELFPAY ==
--- NOTE | 2023-05-23 10:06 | PM.CN ---
Consult Note: HPI Data of Consult Patient: known to practice within the last 3 years Requesting Physician: Rosina Fleming NP Primary Care Provider: SANGEETHA QUICK Consult Narrative Reason for consult: f/u Narrative: Rach Hernandez a pleasant 77 year old female presents for evalaution and management of chronic low back pain with radiculopathy.. Continues to have >50% pain relief and functional improvement from left and right [facility] RFAs from 09/04. Patient rating pain 4/10 today.. Patient has been following with [facility] for left shoulder pain and cervical radiculopathy. recent L5 LENY providing 80% ongoing relief and functional improvement. Now having mild to moderate midline low back aching. hx of RFA with benefit, not interested at this time. cc:: CC: Rosina Fleming NP Review of Systems ROS Status of ROS 10 or more systems reviewed and unremarkable except as noted in history and below Musculoskeletal Reports: back pain, neck pain and joint pain Meds Home Medications and Allergies Home Medications Medication Instructions Recorded Confirmed Type acetaminophen 325 mg tablet (Aphen) 650 mg PO Q6H PRN pain 10/10/22 05/07/23 History levothyroxine 50 mcg capsule 50 mcg PO DAILY 10/11/22 05/07/23 History ropinirole 0.25 mg tablet 0.25 mg PO DAILY 10/11/22 05/07/23 History rosuvastatin 10 mg tablet 10 mg PO DAILY 10/11/22 05/07/23 History tizanidine 2 mg tablet 2 mg PO BID PRN spasm 10/11/22 05/07/23 History tramadol 50 mg tablet 50 mg PO BID 10/11/22 05/07/23 History zoledronic acid 5 mg/100 mL in ea IV .1 YEAR 01/10/23 History mannitol 5 %-water intravenous piggybck (Reclast) Allergies Allergy/AdvReac Type Severity Reaction Status Date / Time aspirin Allergy Verified 05/07/23 07:42 codeine Allergy Verified 05/07/23 07:42 iodine Allergy Verified 05/07/23 07:42 latex Allergy Verified 05/07/23 07:42 pregabalin [From Lyrica] Allergy Verified 05/07/23 07:42 Sulfa (Sulfonamide Allergy Verified 05/07/23 07:42 Antibiotics) Exam Constitutional Documenting provider has reviewed patient's vital signs: yes Common normals: no apparent distress, oriented x3, healthy appearing, alert and well nourished General appearance: cooperative HENMT Common normals: normocephalic, hearing grossly normal bilaterally and moist oral mucous membranes Head and scalp: normocephalic Eye Common normals: PERRL Pupil: PERRL Neck & C-Spine Common normals: full ROM General: normal visual inspection Other: pain with ROM positive spurlings left intermittent radiculopathy to left arm Chest Common normals: inspection of chest normal Respiratory Common normals: normal respiratory effort, no retractions and no use of accessory muscles Back & Pelvis Thoracic spine/upper back: pain with ROM Lumbar spine/lower back: pain with ROM and straight leg raise negative bilaterally Sacroiliac joints: SI joint(s) abnormal Other: pain with jose l, FADER, [place]. Right>L Extremity Common normals: normal to inspection and full ROM Other: diffuse mild joint pain Neuro Common normals: oriented x3, CN's II-XII intact bilaterally, moves all extremities, no focal motor deficits, no sensory deficits noted and deep tendon reflexes 2+ bilaterally Sensorium/orientation: alert Motor exam: strength 5/5 throughout and no movement abnormalities noted Psych Common normals: mental status grossly normal, thought process normal, cooperative, affect normal, speech normal and activity/motor behavior normal Speech: normal speech Thought process: normal thought process Results Additional Findings Additional findings: I have checked an OARRS report on this patient today and there are no aberrancies noted in the prescribing history.?? A drug screen was completed and reviewed within the last year, and if there has not been a drug screen completed we ordered one today to monitor higher risk, state monitored pain medication use. As part of providing excellent, safe, comprehensive care, the following was completed at our patient's visit: 1. A medication reconciliation and review to ensure accurate knowledge of current/active medications, including asking our patients to inform us about any [id number]-myl-cwenlrh medications or herbal remedies/nutritional supplements/alternative remedies. 2. A review to specifically ensure our patients have had annual screening for: elevated body mass index (BMI), tobacco use, screening for depression, and screening for unhealthy alcohol use. When screening is concerning, patients are provided with education and the specific recommendation to discuss the concerning health issue and treatment options with their primary care provider. Assessment and Plan Assessment and Plan (1) Lumbar radiculopathy: (2) Chronic prescription opiate use: Assessment and Plan: I have refilled the patient's opioid prescriptions at the above noted dose and schedule.? I feel these medications are improving the patient's quality of life and allow them to tolerate activities of daily living as well as participate in recreational activity.? The patient does not report intolerable side effects. The patient is NOT opioid naive and non-pharmacologic and non-opioid treatment has failed to significantly relieve the patient's pain and improve functionality. The patient has a diagnosis that is related to a somatic or visceral pain etiology. ? ?? I reviewed with the patient the potential risks and side effects with the use of? opioid medications including but not limited to respiratory depression,? sedation, and even . I verified the patient has access to naloxone should? these effects occur. I advised the patient to avoid the use of any other? sedation substances including alcohol, THC, and benzodiazepines while? taking opioid medications due to the risk of compounding side effects and? detrimental outcomes. I reviewed the [employer], pain treatment agreement, urine? drug screen, and opioid start talking forms. The patient was advised to let? their family know they had Naloxone in case they would need to administer? the medication.? ?? A drug screen was completed within the last year, and no aberrancies were noted regarding their use of controlled substances. The patient understands they are subject to the terms and conditions of the pain contract that they have signed. ? ?? I have checked an OARRS report on this patient today and there are no aberrancies noted in the prescribing history.? (3) Myalgia: (4) Chronic pain syndrome: (5) Lumbar spondylosis: (6) Osteoarthritis: (7) Osteoporosis: Plan doing well over all at this time, continues to have abe horse cramps at night but patient has talked with PCP who encourages her to drink more water/electrolytes as patient hates water continue f[facility] OA and cervical radiculopathy continue tramadol 50mg BID PRN and zanaflex 2mg PRN continue tylenol arthritis PRN f/u 2 weeks after injeciton
== END 2023-05-23 09:46 | disposition home or self-care (01) ==
LOC: PM 09:45
PROVIDERS: PCP Internal Medicine; Visit Provider Nurse Practitioner
DX: M54.16 Radiculopathy, lumbar region (principal); Z79.891 Long term (current) use of opiate analgesic; M79.10 Myalgia, unspecified site; G89.4 Chronic pain syndrome; M47.816 Spondylosis without myelopathy or radiculopathy, lumbar region; M19.90 Unspecified osteoarthritis, unspecified site; M81.0 Age-related osteoporosis without current pathological fracture
CPT/HCPCS: G0463

== ENCOUNTER 2023-08-22 09:54 | Outpatient (OUT) | payer MEDICARE, SELFPAY ==
--- NOTE | 2023-08-22 10:12 | P.CN_ITS ---
Consult Note: HPI Data of Consult Patient: known to practice within the last 3 years Requesting Physician: Rosina Fleming NP Primary Care Provider: SANGEETHA QUICK Consult Narrative Reason for consult: f/u Narrative: Rach Hernandez a pleasant 77 year old female presents for evaluation and management of chronic low back pain with radiculopathy.. Continues to have >50% pain relief and functional improvement from left LCIH RFAs from 09/04, less than 50% from right LCI[facility] RFA. Patient rating pain 10/10 today in low back, right posterior hip. Reports sharp stabbing pain increased with activity relieved with standing in one place. Finds benefit to medication regimen without side effect. Recently noticing increase in severe left knee pain, has discussed with PCP who ordered xray imaging consistent with OA, patient would like an orthopedic referral. cc:: CC: Rosina Fleming NP Review of Systems 2 ROS0 Status of ROS 10 or more systems reviewed and unremark able except as noted in history and below Musculoskeletal Reports: back pain, extremity pain and joint pain Meds Home Medications and Allergies Home Medications ?Medication ?Instructions ?Recorded ?Confirmed ?Type acetaminophen 325 mg tablet (Aphen) 650 mg PO Q6H PRN pain 10/10/22 05/07/23 History levothyroxine 50 mcg capsule 50 mcg PO DAILY 10/11/22 05/07/23 History ropinirole 0.25 mg tablet 0.25 mg PO DAILY 10/11/22 05/07/23 History rosuvastatin 10 mg tablet 10 mg PO DAILY 10/11/22 05/07/23 History tizanidine 2 mg tablet 2 mg PO BID PRN spasm 10/11/22 05/07/23 History tramadol 50 mg tablet 50 mg PO BID 10/11/22 05/07/23 History zoledronic acid 5 mg/100 mL in ea IV .1 YEAR 01/10/23 History mannitol 5 %-water intravenous piggybck (Reclast) Allergies Allergy/AdvReac Type Severity Reaction Status Date / Time aspirin Allergy Verified 05/07/23 07:42 codeine Allergy Verified 05/07/23 07:42 iodine Allergy Verified 05/07/23 07:42 latex Allergy Verified 05/07/23 07:42 pregabalin [From Lyrica] Allergy Verified 05/07/23 07:42 Sulfa (Sulfonamide Allergy Verified 05/07/23 07:42 Antibiotics) Exam Constitutional Documenting provider has reviewed patient's vital signs: yes Common normals: no apparent distress, oriented x3, healthy appearing, alert and well nourished General appearance: cooperative HENMT Common normals: normocephalic, hearing grossly normal bilaterally and moist oral mucous membranes Head and scalp: normocephalic Eye Common normals: PERRL Pupil: PERRL Neck & C-Spine Common normals: full ROM General: normal visual inspection Other: pain with ROM positive spurlings left intermittent radiculopathy to left arm Chest Common normals: inspection of chest normal Respiratory Common normals: normal respiratory effort, no retractions and no use of accessory muscles Back & Pelvis Thoracic spine/upper back: pain with ROM Lumbar spine/lower back: pain with ROM, paraspinal muscle spasm Lumbar paraspinal muscle spasm: right and straight leg raise negative bilaterally Sacroiliac joints: SI joint(s) abnormal Other: pain with jose l, FADER, [place]. Right>L Back image (female): 2 1. Trigger points noted below 2. Extremity Common normals: normal to inspection and full ROM Left lower extremity: knee joint Left knee: inspection (mild edema noted, no discoloration or redness), palpation (tenderness most significant over MCL and meniscus), ROM (limited due to pain) and special tests Other: diffuse mild joint pain Neuro Common normals: oriented x3, CN's II-XII intact bilaterally, moves all extremities, no focal motor deficits, no sensory deficits noted and deep tendon reflexes 2+ bilaterally Sensorium/orientation: alert Motor exam: strength 5/5 throughout and no movement abnormalities noted Psych Common normals: mental status grossly normal, thought process normal, cooperative, affect normal, speech normal and activity/motor behavior normal Speech: normal speech Thought process: normal thought process Assessment and Plan Assessment and Plan (1) Myofascial pain: Assessment and Plan: Right paralumbar spinal trigger point injection The procedure risks, hazards and alternatives were discussed with the patient and a proper consent was obtained. The area over the myofascial spasm was prepped with alcohol utilizing sterile technique. After isolating it between two palpating fingertips a 25-gauge 1.75 needle was placed in the center of the myofascial spasms and a negative aspiration was performed. Then 1cc lidocaine,/bupivicaine/kenalog was injected and repeated in two additional surrounding areas. The patient tolerated the procedure well without any apparent difficulties or complications. They were feeling relief by the time the block had set. (2) Chronic prescription opiate use: Assessment and Plan: I feel these medications are improving the patient's quality of life and allow them to tolerate activities of daily living as well as participate in recreational activity.? The patient does not report intolerable side effects. The patient is NOT opioid naive and non-pharmacologic and non-opioid treatment has failed to significantly relieve the patient's pain and improve functionality. The patient has a diagnosis that is related to a somatic or visceral pain etiology. ? ?? I reviewed with the patient the potential risks and side effects with the use of? opioid medications including but not limited to respiratory depression,? sedation, and even . I verified the patient has access to naloxone should? these effects occur. I advised the patient to avoid the use of any other? sedation substances including alcohol, THC, and benzodiazepines while? taking opioid medications due to the risk of compounding side effects and? detrimental outcomes. I reviewed the [employer], pain treatment agreement, urine? drug screen, and opioid start talking forms. The patient was advised to let? their family know they had Naloxone in case they would need to administer? the medication.? ?? A drug screen was completed within the last year, and no aberrancies were noted regarding their use of controlled substances. The patient understands they are subject to the terms and conditions of the pain contract that they have signed. ? ?? I have checked an [facility] report on this patient today and there are no aberrancies noted in the prescribing history.? (3) Unspecified mononeuropathy of left lower limb: Assessment and Plan: greater than 50% improvement ongoing from left LCI[facility] RFA (4) Unspecified mononeuropathy of right lower limb: Assessment and Plan: patient feels prior right LCIH RFA is wearing off, would like to consider repeating (5) Lumbar spondylosis: (6) Chronic pain syndrome: (7) Left knee pain: (8) Osteoarthritis of left knee: Plan TPI performed as noted above, significant improvement in low back pain upon completion continue medications referral to Dr Mckeon for evaluation of left knee pain/edema/OA f/u 1 month, can consider repeat right LCIH nerve RFA as previous RFA provided >50% improvement greater than 6 months if moderate to severe pain persits
--- OUTSIDE RECORDS SUMMARY | 2023-08-22 10:18 | XMS_ITS | CCD ---
Author Organization [facility] Care Team Providers Care Supervisor [facility] Name Role Phone LAKSHMIPATHY, NARENDRANATH Attending Unava ilable LAKSHMIPATHY, NARENDRANATH Admitting Unava ilable YUHAS, DR VIVAS Primary Care Unavailable LAKSHMIPATHY, NARFAUSTINO Consulting Unava ilable FRANCI .MIREYA Consulting Unavailable BARRAZA ., DR YINKA Mon Consulting Unavailable BARRAZA ., DR YINKA Mon Attending Unavailable BARRAZA ., DR YINKA Mon Admitting Unavailable YUHAS, DR VIVAS Primary Care Unavailable BARRAZA ., DR YINKA Mon Attending Unavailable BARRAZA ., DR YINKA Mon Admitting Unavailable YUAN ., MARIELY Consulting Unavailable ABDELRAHMAN, DR VIVAS Primary Care Unavailable LAKSHMIPATHY, TOÑA Attending Unava ilable LAKSHMIPATHY, NARENDBHUMIATH Admitting Unava ilable YUHAS, DR VIVAS Primary Care Unavailable LAKSHMIPATHY, NARENDOMAR Admitting Unava ilable YUHAS, DR VIVAS Primary Care Unavailable LAKSHMIPATHY, TOÑA Attending Unava ilable CHRISTI ., DR YINKA Mon Attending Unavailable BARRAZA ., DR YINKA Mon Admitting Unavailable YUAN ., MARIELY Consulting Unavailable YUHAS, DR VIVAS Primary Care Unavailable LAKSHMIPATHY, NARFAUSTINO Attending Unava ilable LAKSHMIPATHY, NARENDOMAR Admitting Unava ilable YUHAS, DR VIVAS Primary Care Unavailable LAKSHMIPATHY, NARFAUSTINO Consulting Unava ilable BARRAZA ., DR YINKA Mon Consulting Unavailable BARRAZA ., DR YINKA Mon Attending Unavailable BARRAZA ., DR YINKA Mon Admitting Unavailable YUHAS, DR VIVAS Primary Care Unavailable YUHAPrashanth, DR VIVAS Consulting Unavailable YUHAS, DR VIVAS Attending Unavailable YUHAS, DR VIVAS Admitting Unavailable YUHAPrashanth, DR VIVAS Primary Care Unavailable Ronaldo Rangel Consulting Unavailable BARRAZA ., DR YINKA Mon Consulting Unavailable BARRAZA ., DR YINKA Mon Attending Unavailable BARRAZA ., DR YINKA Mon Admitting Unavailable YUHAS, DR VIVAS Primary Care Unavailable YUAN ., MARIELY Consulting Unavailable BARRAZA ., DR YINKA Mon Attending Unavailable BARRAZA ., DR YINKA Mon Admitting Unavailable YUAN ., MARIELY Consulting Unavailable YUHAS, DR VIVAS Primary Care Unavailable BARRAZA ., DR YINKA Mon Attending Unavailable BARRAZA ., DR YINKA Mon Admitting Unavailable YUAN ., MARIELY Consulting Unavailable YUHAS, DR VIVAS Primary Care Unavailable BARRAZA ., DR YINKA Mon Attending Unavailable YUAN ., MARIELY Consulting Unavailable YUHAS, DR VIVAS Primary Care Unavailable BARRAZA ., DR YINKA Mon Admitting Unavailable LAKSHMIPATHY, NARENDRANATH Attending Unava ilable LAKSHMIPATHY, NARENDBHUMIATH Admitting Unava ilable YUHAS, DR VIVAS Primary Care Unavailable LAKSHMIPATHY, NARENDRANATH Consulting Unava ilable SHANNEN BLAIR Consulting Unavailable LAKSHMIPATHY, NARENDRANATH Attending Unava ilable YUHAS, DR VIVAS Primary Care Unavailable LAKSHMIPATHY, NARENDRANATH Admitting Unava ilable LAKSHMIPATHY, NARENDRANATH Consulting Unava ilable YuhaSangeetha mon DO Primary Care Provider [phone] SANGEETHA QUICK Referring Unavailable YUHAS, SANGEETHA L Primary Care Unavailable YUMAYOS, SANGEETHA L Attending Unavailable YUHAS, SANGEETHA L Referring Unavailable YUHAS, SANGEETHA L Primary Care Unavailable YUHAS, SANGEETHA L Attending Unavailable YUHAS, SANGEETHA L Referring Unavailable YUHAS, SANGEETHA L Primary Care Unavailable YUHAS, SANGEETHA L Attending Unavailable YUHAS, SANGEETHA L Referring Unavailable YUHAS, SANGEETHA L Primary Care Unavailable YUHAS, SANGEETHA L Attending Unavailable YUHAS, SANGEETHA L Referring Unavailable YUHAS, SANGEETHA L Primary Care Unavailable YUHAS, SANGEETHA L Attending Unavailable YUHAS, SANGEETHA L Referring Unavailable YUHAS, SANGEETHA L Primary Care Unavailable Allergies Allergy Classification Reported Allergen(s) Allergy Type Date of Onset Reaction(s) Facility (1 source) Aspirin Drug Allergy [facility] Repository (4 sources) Codeine; Translations: [CODEINE] Drug Allergy 8 [facility]ository (1 source) Etodolac Drug Allergy [facility] (4 sources) Iodine; Translations: [IODINE] Drug Allergy 8 [facility] (4 sources) Latex; Translations: [LATEX] Drug allergy (disorder) 3 [facility] (1 source) pregabalin Drug Allergy [facility] (1 source) Sulfonamides (Antibiotic) Drug allergy (disorder) [facility] (6 sources) Aspirin; Translations: [ASPIRIN, BUFFERED] Drug Allergy 8 [facility] (3 sources) Codeine Drug Allergy 8 Rash [facility] (6 sources) Etodolac; Translations: [ETODOLAC] Drug Allergy 3 [facility] (3 sources) Iodine Drug Allergy 8 Anaphylaxis [facility] (3 sources) Latex Propensity to adverse reactions to drug 3 [facility] (6 sources) Penicillins; Translations: [PENICILLINS] Propensity to adverse reactions to drug 8 [facility] (6 sources) Sulfonamides (Antibiotic); Translations: [SULFA (SULFONAMIDE ANTIBIOTICS)] Propensity to adverse reactions to drug 8 Rash [facility] Medications Current Medications Medication Drug Class(es) Dates Sig (Normalized) Sig (Original) 8 hr acetaminophen 650 mg extended release oral tablet (3 sources) take 1 tablet by mouth every eight hours in the morning acetaminophen (TYLENOL) 650 mg 8 hr tablet Take 1 tablet (650 mg total) by mouth in the morning. 0 Active cholecalciferol 1.25 mg oral capsule (2 sources) Vitamin D Start: 05-22-2023 take 1 capsule by mouth every week cholecalciferol (VITAMIN D3) 50,000 units capsule TAKE 1 CAPSULE BY MOUTH ONCE WEEKLY 0 05/22/2023 Active ergocalciferol 1.25 mg oral capsule (3 sources) Provitamin D2 Compound Start: 02-16-2023 take 1 capsule by mouth every week ergocalciferol (DRISDOL) 1,250 mcg (50,000 unit) capsule TAKE 1 CASPULE BY MOUTH ONCE TIME PER WEEK 0 02/16/2023 Active estradiol 0.1 mg/ml vaginal cream (3 sources) Estrogen Start: 03-19-2023 estradioL (ESTRACE) 0.01 % (0.1 mg/gram) vaginal cream Indications: Lichen planus atrophicus Use at night once or twice weekly 42.5 g 1 03/19/2023 Active levothyroxine sodium 0.05 mg oral tablet (3 sources) l-Thyroxine Start: 05-21-2023 take 1 tablet by mouth once daily levothyroxine (SYNTHROID, LEVOTHROID) 50 MCG tablet Indications: Hypothyroidism TAKE 1 TABLET BY MOUTH EVERY DAY 90 tablet 1 05/31/2023 Active predniSONE 20 mg oral tablet (1 source) Start: 06-25-2023 End: 06-30-2023 take 2 tablets by mouth in the morning predniSONE (DELTASONE) 20 mg tablet Indications: Localized osteoarthritis of left knee Take 2 tablets (40 mg total) by mouth in the morning for 5 days. 10 tablet 0 06/25/2023 06/30/2023 Active rOPINIRole 0.25 mg oral tablet (3 sources) Nonergot Dopamine Agonist Start: 03-15-2022 take 1 tablet by mouth once daily at bedtime rOPINIRole (REQUIP) 0.25 mg tablet TAKE 1 TABLET BY MOUTH EVERY DAY 1-3 HOURS BEFORE BEDTIME 0 03/15/2022 Active rosuvastatin calcium 10 mg oral tablet (3 sources) HMG-CoA Reductase Inhibitor Start: 05-21-2023 take 1 tablet by mouth once daily rosuvastatin (CRESTOR) 10 mg tablet Indications: Hyperlipidemia, unspecified TAKE 1 TABLET BY MOUTH EVERY DAY 90 tablet 1 05/31/2023 Active tiZANidine 2 mg oral tablet (3 sources) Central alpha-2 Adrenergic Agonist Start: 07-14-2022 take 1 tablet by mouth twice daily as needed for muscle spasms tiZANidine (ZANAFLEX) 2 mg tablet Indications: Left cervical radiculopathy TAKE 1 TABLET BY MOUTH TWICE DAILY NEEDED FOR MUSCLE SPASMS 30 tablet 2 07/14/2022 Active traMADol hydrochloride 50 mg oral tablet (3 sources) Opioid Agonist Start: 03-19-2022 traMADoL (ULTRAM) 50 mg tablet vitamin b12 1 mg extended release oral tablet (3 sources) Vitamin B12 Start: 11-07-2022 take 2 tablets by mouth once daily cyanocobalamin, vitamin B-12, (VITAMIN B-12) 1,000 mcg tablet extended release Indications: Deficiency of other specified B group vitamins TAKE 2 TABLETS BY MOUTH EVERY DAY 180 tablet 3 11/07/2022 Active Completed/Discontinued Medications Medication Drug Class(es) Dates Sig (Normalized) Sig (Original) adjuvant AS01B, PF,vial 1 of 2 (SHINGRIX ADJUVANT COMPONENT-PF) suspension (1 source) Start: 07-01-2023 End: 07-01-2023 adjuvant AS01B, PF,vial 1 of 2 (SHINGRIX ADJUVANT COMPONENT-PF) suspension Indications: Immunization due Inject 0.5 mL into the appropriate muscle once for 1 dose. Repeat dose in 2 -4 months 0.5 mL 1 07/01/2023 07/01/2023 clobetasol propionate 0.5 mg/ml topical cream (1 source) Corticosteroid Start: 03-19-2023 End: 05-30-2023 clobetasoL (TEMOVATE) 0.05 % cream Indications: Lichen planus atrophicus Apply 1 Application topically in the morning and 1 Application before bedtime. 30 g 0 03/19/2023 05/30/2023 Discontinued (Patient Stopped On Own) loperamide hydrochloride 2 mg oral tablet (1 source) Opioid Agonist Start: 12-31-2022 End: 05-30-2023 take 1 tablet by mouth four times daily as needed for diarrhea loperamide (IMODIUM A-D) 2 mg tablet Indications: Diarrhea, unspecified type Take 1 tablet (2 mg total) by mouth 4 (four) times a day as needed for diarrhea. 30 tablet 0 12/31/2022 05/30/2023 Discontinued (Patient Stopped On Own) Problems Active Problems Problem Classification Problem Date Documented Date Episodic/Chronic Anxiety disorders (1 source) Anxiety disorder, unspecified; Translations: [ANXIETY DISORDER UNSPECIFIED] Onset: 08-22-2022 Chronic Disorders of lipid metabolism (7 sources) Hyperlipidemia; Translations: [Hyperlipidemia, unspecified] Onset: 12-15-2020 05-30-2023 Chronic Immunizations and screening for infectious disease (1 source) Immunization due; Translations: [Encounter for immunization] 07-01-2023 Episodic Mood disorders (3 sources) Depressive disorder; Translations: [Depressive disorder] Onset: 03-27-2018 12-15-2020 Chronic Osteoarthritis (10 sources) Osteoarthritis of joint of left shoulder region; Translations: [Primary osteoarthritis, left shoulder] Onset: 12-15-2020 05-30-2023 Chronic Osteoporosis (3 sources) Senile osteoporosis; Translations: [Age-related osteoporosis without current pathological fracture] Onset: 12-31-2022 12-31-2022 Chronic Other connective tissue disease (1 source) [...] ARTHROPATHIES NEC LT SHLDR] Onset: 05-18-2022 Chronic Other non-traumatic joint disorders (1 source) Knee pain Onset: 06-25-2023 Episodic 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 sources) Cystocele; Translations: [Cystocele, unspecified] Onset: 12-15-2020 12-15-2020 Chronic Residual codes; unclassified (3 sources) Obstructive sleep apnea syndrome; Translations: [Obstructive sleep apnea (adult) (pediatric)] Onset: 12-15-2020 12-15-2020 Chronic Spondylosis; intervertebral disc disorders; other back problems (8 sources) Intervertebral disc disorders with myelopathy, lumbar region; Translations: [Other spondylosis with radiculopathy, lumbar region] Onset: 05-27-2017 Chronic Thyroid disorders (6 sources) Hypothyroidism; Translations: [Hypothyroidism, unspecified] Onset: 12-15-2020 05-30-2023 Chronic Unclassified (1 source) LOW BACK PAIN, UNSPECIFIED; Translations: [LOW BACK PAIN, UNSPECIFIED] Onset: 02-13-2022 Unclassified (1 source) Injection Onset: 07-25-2023 Unclassified (1 source) lt knee injury, now both hurting Onset: 07-01-2023 Unclassified (1 source) Thyroid Problem Onset: 05-30-2023 Past or Other Problems Problem Classification Problem Date Documented Date Episodic/Chronic Abdominal hernia (3 sources) Hiatal hernia; Translations: [Diaphragmatic hernia without obstruction or gangrene] Onset: 04-17-2022 04-17-2022 Episodic Mood disorders (3 sources) Mood disorders Onset: 05-30-2023 Resolved: 07-01-2023 05-30-2023 Nutritional deficiencies (5 sources) Cobalamin deficiency; Translations: [Deficiency of other specified B group vitamins] Onset: 04-19-2021 05-30-2023 Episodic Other female genital disorders (3 sources) Leukoplakia of vulva; Translations: [Circumscribed scleroderma] Onset: 06-30-2018 12-15-2020 Episodic Other skin disorders (3 sources) Alopecia; Translations: [Nonscarring hair loss, unspecified] Onset: 12-15-2020 12-15-2020 Episodic Spondylosis; intervertebral disc disorders; other back problems (14 sources) Intervertebral disc disorders with radiculopathy, lumbar region; Translations: [Spinal stenosis, lumbar region without neurogenic claudication] Onset: 12-14-2021 Episodic Results Test Name Value Interpretation Reference Range Facility XR KNEE LT 3 VWSon XR KNEE LT 3 VWS XR KNEE LT 3 VWS CLINICAL INFORMATION: Localized osteoarthritis of left knee TECHNIQUE: XR KNEE LT 3 VWS 3 views left knee were obtained. Moderate tricompartmental osteoarthritic changes noted with osteophytes both medially and laterally. No joint effusion is seen. No evidence of fracture. IMPRESSION: Moderate tricompartmental osteoarthritis. Finalized by Jaylen Alejandro MD on 06/27/2023 1:51 PM Normal [facility] COMPREHENSIVE METABOLIC PANE [place] 05-30-2023 Albumin [Mass/Vol] 4.3 g/dL Normal 3.2-5.3 [facility] Comment on above: Performed By: #### C KIMBERLY, 91799-1, THYR #### [facility] ([id number]) [address], [address] [place] [address] ALP [Catalytic activity/Vol] 63 U/L Normal 39-130 [facility] Comment on above: Performed By: #### C KIMBERLY, 86365-3, THYR #### [facility] ([id number]) [address], [address] [place] [address] ALT [Catalytic activity/Vol] 15 U/L Normal 0-31 [facility] Comment on above: Performed By: #### C KIMBERLY, 61052-9, THYR #### [facility] ([id number]) [address], [address] [place] [address] Anion gap [Moles/Vol] 6 mmol/L Normal 5-15 [facility] Comment on above: Performed By: #### C KIMBERLY, 91719-3, THYR #### [facility] ([id number]) [address], [address] [place] [address] AST [Catalytic activity/Vol] 15 U/L Normal 0-41 [facility] Comment on above: Performed By: #### Renee HARRIS, 39832-4, THYR #### [facility] ([id number]) [address], [address] [place] [address] Bilirubin [Mass/Vol] 0.3 mg/dL Normal 0.3-1.2 [facility] Comment on above: Performed By: #### C KIMBERLY, 09963-6, THYR #### [facility] ([id number]) [address], [address] [place] [address] Calcium [Mass/Vol] 9.1 mg/dL Normal 8.5-10.5 [facility] Comment on above: Performed By: #### Renee HARRIS, 12468-4, THYR #### [facility] ([id number]) [address], [address] [place] [address] Chloride [Moles/Vol] 105 mmol/L Normal 98-109 [facility] Comment on above: Performed By: #### C KIMBERLY, 92864-1, THYR #### [facility] ([id number]) [address], [address] [place] [address] CO2 [Moles/Vol] 31 mmol/L Normal 22-32 [facility] Comment on above: Performed By: #### Renee HARRIS, 05733-4, THYR #### [facility] ([id number]) [address], [facility] [address] [place] [address] Creatinine [Mass/Vol] 0.65 mg/dL Normal 0.40-1.00 [facility] Comment on above: Result Comment: METH OD TRACEABLE TO IDMS STANDARD Performed By: #### Renee HARRIS, 40089-2, THYR #### [facility] ([id number]) [address] [place] [address] eGFR (CKD-EPI) NON-RACE DEPENDENT >90 Normal >59 [facility] Comment on above: Result Comment: Reported eGFR is based on the CKD-EPI 2020 equation that does not use a race coefficient. Performed By: #### Renee HARRIS, 41760-1, THYR #### [facility] ([id number]) [address], [address] [place] [address] Glucose [Mass/Vol] 101 mg/dL High 65-99 [facility] Comment on above: Performed By: #### Renee HARRIS, 92872-3, THYR #### [facility] ([id number]) [address] [address] [place] [address] Potassium [Moles/Vol] 4.4 mmol/L Normal 3.5-5.0 [facility] Comment on above: Performed By: #### Renee HARRIS, 37331-1, THYR #### [facility] ([id number]) [address], [address] [place] [address] Protein [Mass/Vol] 6.9 g/dL Normal 6.0-8.0 [facility] Comment on above: Performed By: #### C KIMBERLY, 64800-5, THYR #### [facility] ([id number]) [address], [address] [place] [address] Sodium [Moles/Vol] 142 mmol/L Normal 134-146 [facility] Comment on above: Performed By: #### C KIMBERLY, 74315-5, THYR #### [facility] ([id number]) [address], [address] [place] [address] Urea nitrogen [Mass/Vol] 18 mg/dL Normal 5-27 [facility] Comment on above: Performed By: #### Renee HARRIS, 13315-4, THYR #### [facility] ([id number]) [address], [address] [place] [address] Comprehensive metabolic pane ulices 05-30-2023 Albumin [Mass/Vol] 4.3 g/dL 3.2 - 5.3 g/dL [facility] ALP [Catalytic activity/Vol] 63 U/L 39 - 130 U/L [facility] ALT No additional P-5'-P [Catalytic activity/Vol] 15 U/L 0 - 31 U/L [facility] Anion gap [Moles/Vol] 6 mmol/L 5 - 15 mmol/L [facility] AST [Catalytic activity/Vol] 15 U/L 0 - 41 U/L [facility] Bilirubin [Mass/Vol] 0.3 mg/dL 0.3 - 1.2 mg/dL [facility] Calcium [Mass/Vol] 9.1 mg/dL 8.5 - 10. 5 mg/dL [facility] Chloride [Moles/Vol] 105 mmol/L 98 - 109 mmol/L [facility] CO2 [Moles/Vol] 31 mmol/L 22 - 32 mmol/L [facility] Creatinine [Mass/Vol] 0.65 mg/dL 0.40 - 1.00 mg/dL [facility] Comment on above: METHOD TRACEABLE TO [facility] STANDARD eGFR (CKD-EPI)non-race dependent - PINF [facility] Comment on above: Reported eGFR is based on the CKD-EPI 2020 equation that does not use a race coefficient. Glucose [Mass/Vol] 101 mg/dL High 65 - 99 mg/dL [facility] Potassium [Moles/Vol] 4.4 mmol/L 3.5 - 5.0 mmol/L [facility] Protein [Mass/Vol] 6.9 g/dL 6.0 - 8.0 g/dL [facility] Sodium [Moles/Vol] 142 mmol/L 134 - 146 mmol/L [facility] Urea nitrogen [Mass/Vol] 18 mg/dL 5 - 27 mg/dL [facility] Lipid 1996 panelon Cholesterol [Mass/Vol] 140 mg/dL Low 150 - 200 mg/dL [facility] Cholesterol in HDL [Mass/Vol] 55 mg/dL 39 - PINF mg/dL [facility] Comment on above: HDL <40 mg/dL - High Risk HDL > or = 40mg/dL- Desirable HDL >60 mg/dL - Negative Risk Cholesterol in LDL [Mass/Vol] 69 mg/dL NINF - 130 mg/dL [facility] Comment on above: LDL <100 mg/dL - Desirable LDL >160 mg/dL - High Risk Cholesterol in VLDL [Mass/Vol] 16 mg/dL 0 - 30 mg/dL [facility] Cholesterol.total/C holesterol in HDL [Mass ratio] 2.5 {ratio} 1.0 - 5.0 [facility] Triglyceride [Mass/Vol] 82 mg/dL 27 - 150 mg/dL [facility] Cholesterol [Mass/Vol] 140 mg/dL Low 150-200 [facility] Comment on above: Performed By: #### Renee HARRIS, 47218-0, THYR #### [facility] ([id number]) [address], [address] [place] [address] Cholesterol in HDL [Mass/Vol] 55 mg/dL Normal >39 [facility] Comment on above: Result Comment: HDL <40 mg/dL - High Risk HDL > or = 40mg/dL- Desirable HDL >60 mg/dL - Negative Risk Performed By: #### Renee HARRIS, 46373-7, THYR #### [facility] ([id number]) [address], [address] [place] [address] Cholesterol in LDL [Mass/Vol] 69 mg/dL Normal <130 [facility] Comment on above: Result Comment: LDL <100 mg/dL - Desirable LDL >160 mg/dL - High Risk Performed By: #### Renee HARRIS, 81328-3, THYR #### [facility] ([id number]) [address], [address] [place] [address] Cholesterol in VLDL [Mass/Vol] 16 mg/dL Normal 0-30 [facility] Comment on above: Performed By: #### Renee HARRIS, 47198-7, THYR #### [facility] ([id number]) [address], [address] [place] [address] CHOLESTEROL:HDL 2.5 Normal 1.0-5.0 [facility] Comment on above: Performed By: #### Renee HARRIS, 61860-1, THYR #### [facility] ([id number]) [address], [address] [place] [address] Triglyceride [Mass/Vol] 82 mg/dL Normal 27-150 [facility] Comment on above: Performed By: #### Renee HARRIS, 65331-4, THYR #### [facility] ([id number]) [address], [address] [place] [address] No Panel Informationon 05-30 Interpretation and review of laboratory results Abnormal [facility] THYROID PROFILEon 05-30-2023 Free T4 [Mass/Vol] 0.92 ng/dL Normal 0.61-1.60 [facility] Comment on above: Performed By: #### Renee HARRIS, 68313-0, THYR #### [facility] ([id number]) [address], [address] [place] [address] TSH 0.95 uIU/mL Normal 0.49-4.67 [facility] Comment on above: Performed By: #### Renee HARRIS, 22181-7, THYR #### [facility] ([id number]) [address], [address] [place] [address] Thyroid profile includes TSH FT4on 05-30-2023 Free T4 [Mass/Vol] 0.92 ng/dL 0.61 - 1. 60 ng/dL [facility] TSH Qn 0.95 m[IU]/L [facility] MRI SHOULDER LT WO CONon MRI SHOULDER [...] by: RONALDO RANGEL Date: 2022-05-18 09:45 Normal [facility] METABOLIC PANE [facility] 08-29-2021 Albumin [Mass/Vol] 4.0 g/dL Normal 3.6-5.1 [facility] Comment on above: Performed By: #### 7 655, 728, 23823 #### [facility] [address] [employer]: Finn Akins MD Albumin/Globulin [Mass ratio] 1.9 {ratio} Normal 1.0-2.5 [facility] Comment on above: Performed By: #### 7 683, 880, 56805 #### [facility] [address] [employer] Grinder: Finn Akins MD ALP [Catalytic activity/Vol] 56 U/L Normal 37-153 [facility] Comment on above: Performed By: #### 7 009, 435, 09160 #### [facility] [address], [address] [place], [place] [id number] [employer]: Finn Akins MD ALT [Catalytic activity/Vol] 18 U/L Normal 6-29 [facility] Comment on above: Performed By: #### 7 600, 927, 29730 #### [facility] [place] [address] [employer]: Finn Akins MD AST [Catalytic activity/Vol] 18 U/L Normal 10-35 [facility] Comment on above: Performed By: #### 7 600, 927, 05429 #### [facility] [place] [address] [employer]inder: Finn Akins MD Bilirubin [Mass/Vol] 0.4 mg/dL Normal 0.2-1.2 [facility] Comment on above: Performed By: #### 7 600, 927, 20532 #### [facility] [place] [address] [employer]inder: Finn Akins MD BUN/CREATININE RATIO NOT APPLICABLE Normal 6-22 [facility] Comment on above: Performed By: #### 7 600, 927, 02968 #### [facility] [place] [address] [employer]inder: Finn Akins MD Calcium [Mass/Vol] 8.8 mg/dL Normal 8.6-10.4 [facility] Comment on above: Performed By: #### 7 600, 927, 62209 #### [facility] [place] [address] [employer]inder: Finn Akins MD Chloride [Moles/Vol] 106 mmol/L Normal 98-110 [facility] Comment on above: Performed By: #### 7 600, 927, 99122 #### [facility] [place] [address] [employer]inder: Finn Akins MD CO2 [Moles/Vol] 30 mmol/L Normal 20-32 [facility] Comment on above: Performed By: #### 7 600, 927, 27561 #### [facility] [place] [address] [employer]inder: Finn Akins MD Creatinine [Mass/Vol] 0.67 mg/dL Normal 0.60-0.93 [facility] Comment on above: Result Comment: For patients >49 years of age, the reference limit for Creatinine is approximately 13% higher for people identified as -Gambian. Performed By: #### 7 600, 927, 87566 #### [facility] [place] [place] [address] [employer]: Finn Akins MD eGFR NON-AFR. BARBADIAN 87 mL/min/1.73m2 Normal > OR = 60 [facility] Comment on above: Performed By: #### 7 600, 927, 93544 #### [facility] [place] [address] [employer]inder: Finn Akins MD GFR/1.73 sq M.predicted among blacks MDRD (S/P/Bld) [Vol rate/Area] 101 mL/min/{1.73_m2} Normal > OR = 60 [facility] Comment on above: Performed By: #### 7 600, 927, 70876 #### [facility] [place] [address] [employer] Grinder: Finn Akins MD Globulin (S) [Mass/Vol] 2.1 g/dL Normal 1.9-3.7 [facility] Comment on above: Performed By: #### 7 600, 927, 15176 #### [facility] [place] [address] [employer]inder: Finn Akins MD Glucose [Mass/Vol] 96 mg/dL Normal 65-99 [facility] Comment on above: Result Comment: Fasting reference interval Performed By: #### 7 600, 927, 38150 #### [facility] [place] [address] [employer]inder: Finn Akins MD Potassium [Moles/Vol] 3.9 mmol/L Normal 3.5-5.3 [facility] Comment on above: Performed By: #### 7 600, 927, 81032 #### [facility] [place] [address] [employer]inder: Finn Akins MD Protein [Mass/Vol] 6.1 g/dL Normal 6.1-8.1 [facility] Comment on above: Performed By: #### 7 600, 927, 17525 #### [facility] [place] [address] [employer]inder: Finn Akins MD Sodium [Moles/Vol] 143 mmol/L Normal 135-146 [facility] Comment on above: Performed By: #### 7 600, 927, 99396 #### [facility] [place] [address] [employer]inder: Finn Akins MD Urea nitrogen [Mass/Vol] 17 mg/dL Normal 7-25 [facility] Comment on above: Performed By: #### 7 600, 927, 25236 #### [facility] [place] [address] [employer] Grinder: Finn Akins MD LIPID PANEL, [address] Cholesterol [Mass/Vol] 126 mg/dL Normal <200 [facility] Comment on above: Order Comment: FASTI NG:YES FASTING: YES Performed By: #### 7 600, 927, 94056 #### [facility] [place] [address] [employer]inder: Finn Akins MD Cholesterol in HDL [Mass/Vol] 46 mg/dL Low > OR = 50 [facility] Comment on above: Order Comment: FASTI NG:YES FASTING: YES Performed By: #### 7 600, 927, 49749 #### [facility] [place] [address] [employer]inder: Finn Akins MD Cholesterol in LDL [Mass/Vol] [...] LDL-C. Aguilar HOLCOMB et al. MCKAY. 2013;310(19): 2750-5918 (http://education.Book of Odds.Foldax/faq/HAO602) Performed By: #### 7 600, 927, 27868 #### [facility] [address], [address] [place] [address] Steel Grinder: Finn Akins MD Cholesterol.total/C holesterol in HDL [Mass ratio] 2.7 {ratio} Normal <5.0 [facility] Comment on above: Order Comment: FASTI NG:YES FASTING: YES Performed By: #### 7 600, 927, 37500 #### [facility] [address], [address] [place] [address] Steel Grinder: Finn Akins MD NON HDL CHOLESTEROL 80 mg/dL (calc) Normal <130 [facility] Comment on above: Order Comment: FASTI NG:YES FASTING: YES Result Comment: For patients with diabetes plus 1 major ASCVD risk factor, treating to a non-HDL-C goal of <100 mg/dL (LDL-C of <70 mg/dL) is considered a therapeutic option. Performed By: #### 7 600, 927, 62196 #### [facility] [place] [address] [employer] Grinder: Finn Akins MD Triglyceride [Mass/Vol] 86 mg/dL Normal <150 [facility] Comment on above: Order Comment: FASTI NG:YES FASTING: YES Performed By: #### 7 600, 927, 72763 #### [facility] [place] [address] [employer]inder: Finn Akins MD VITAMIN B12on 08-29-2021 Cobalamin (Vitamin B12) [Mass/Vol] 184 pg/mL Low 200-1100 [facility] Comment on above: Performed By: #### 7 600, 927, 55327 #### [facility] [address], [address] [place] [address] Steel Grinder: Finn Akins MD BASIC METABOLIC PANELon Calcium [Mass/Vol] 9.2 mg/dL Normal 8.6-10.4 [facility] Comment on above: Performed By: #### 9 , 04741, 01843 #### [facility] [address], [address] [place] [address] Steel Grinder: Finn Akins MD Chloride [Moles/Vol] 102 mmol/L Normal 98-110 [facility] Comment on above: Performed By: #### 9 , 16073, 67572 #### [facility] [address], [address] [place] [address] Steel Grinder: Finn Akins MD CO2 [Moles/Vol] 28 mmol/L Normal 20-32 [facility] Comment on above: Performed By: #### 9 , 04685, 17518 #### [facility] [place] [address] [employer] Grinder: Finn Akins MD Creatinine [Mass/Vol] 0.56 mg/dL Low 0.60-0.93 [facility] Comment on above: Result Comment: For patients >49 years of age, the reference limit for Creatinine is approximately 13% higher for people identified as -Gambian. Performed By: #### 9 27, 81101, 54325 #### [facility] [place] [address] [employer] Grinder: Finn Akins MD eGFR NON-AFR. BARBADIAN 93 mL/min/1.73m2 Normal > OR = 60 [facility] Comment on above: Performed By: #### 9 27, 50954, 95555 #### [facility] [place] [address] [employer] Grinder: Finn Akins MD GFR/1.73 sq M.predicted among blacks MDRD (S/P/Bld) [Vol rate/Area] 107 mL/min/{1.73_m2} Normal > OR = 60 [facility] Comment on above: Performed By: #### 9 27, 41799, 66464 #### [facility] [place] [address] [employer]inder: Finn Akins MD Glucose [Mass/Vol] 97 mg/dL Normal 65-99 [facility] Comment on above: Result Comment: Fasting reference interval Performed By: #### 9 27, 47794, 20101 #### [facility] [address], [address] [place] [address] Steel Grinder: Finn Akins MD Potassium [Moles/Vol] 3.8 mmol/L Normal 3.5-5.3 [facility] Comment on above: Performed By: #### 9 , 52173, 69156 #### [facility] [place] [address] [employer] Grinder: Finn Akins MD Sodium [Moles/Vol] 140 mmol/L Normal 135-146 [facility] Comment on above: Performed By: #### 9 27, 24998, 36473 #### [facility] [place] [address] [employer]inder: Finn Akins MD Urea nitrogen [Mass/Vol] 14 mg/dL Normal 7-25 [facility] Comment on above: Performed By: #### 9 27, 37772, 67802 #### [facility] [place] [address] [employer] Grinder: iFnn Akins MD Urea nitrogen/Creatinine [Mass ratio] 25 mg/mg High 6-22 [facility] Comment on above: Performed By: #### 9 , 97413, 94352 #### [facility] [place] [address] [employer] Grinder: Finn Akins MD TSH+FREE T4on 04-19-2021 Free T4 [Mass/Vol] 1.2 ng/dL Normal 0.8-1.8 [facility] Comment on above: Performed By: #### 9 27, 75490, 94822 #### [facility] [address], [address] [place] [address] Steel Grinder: Finn Akins MD TSH Qn 0.55 m[IU]/L Normal 0.40-4.50 [facility] Comment on above: Performed By: #### 9 27, 37677, 88349 #### [facility] [address], [address] [place] [address] Steel Grinder: Finn Akins MD VITAMIN B12on 04-19-2021 Cobalamin (Vitamin B12) [Mass/Vol] 133 pg/mL Low 200-1100 [facility] Comment on above: Performed By: #### 9 27, 45812, 43788 #### [facility] [address], [address] [place] [address] Steel Grinder: Finn Akins MD Vital Signs Date Time Vital Sign Value Performing Clinician Facility 07-01-2023 15:40-0400 Body height 149.9 cm Sangeetha Quick DO Work Phone: [facility] 07-01-2023 15:40-0400 Body mass index (BMI) [Ratio] 31.1 kg/m2 Sangeetha Quick DO Work Phone: [facility] 07-01-2023 15:40-0400 Body temperature 98.2 [degF] Sangeetha Quick DO Work Phone: [facility] 07-01-2023 15:40-0400 Body weight 69.85 kg Sangeetha Quick DO Work Phone: [facility] 07-01-2023 15:40-0400 Diastolic blood pressure 70 mm[Hg] Sangeetha Quick DO Work Phone: [facility] 07-01-2023 15:40-0400 Heart rate 87 /min Sangeetha Quick DO Work Phone: [facility] 07-01-2023 15:40-0400 SaO2% (BldA) [Mass fraction] 99 % Sangeetha Quick DO Work Phone: [facility] 07-01-2023 15:40-0400 Systolic blood pressure 136 mm[Hg] Sangeetha Dunbars DO Work Phone: [facility] 06-25-2023 11:23-0400 Body height 149.9 cm Sangeetha Dunbars DO Work Phone: [facility] 06-25-2023 11:23-0400 Body mass index (BMI) [Ratio] 31.06 kg/m2 Sangeetha Dunbars DO Work Phone: [facility] 06-25-2023 11:23-0400 Body temperature 98.29 [degF] Sangeetha Quick DO Work Phone: [facility] 06-25-2023 11:23-0400 Body weight 69.76 kg Sangeetha Quick DO Work Phone: [facility] 06-25-2023 11:23-0400 Diastolic blood pressure 70 mm[Hg] Sangeetha Quick DO Work Phone: [facility] 06-25-2023 11:23-0400 Heart rate 73 /min Sangeetha Quick DO Work Phone: [facility] 06-25-2023 11:23-0400 SaO2% (BldA) [Mass fraction] 97 % Sangeetha Quick DO Work Phone: [facility] 06-25-2023 11:23-0400 Systolic blood pressure 120 mm[Hg] Sangeetha Dunbars DO Work Phone: [facility] 05-30-2023 10:29-0500 Body height 149.9 cm Sangeetha Dunbars DO Work Phone: [facility] 05-30-2023 10:29-0500 Body mass index (BMI) [Ratio] 30.7 kg/m2 Sangeetha Dunbars DO Work Phone: [facility] 05-30-2023 10:29-0500 Body temperature 98.1 [degF] Sangeetha Dunbars DO Work Phone: [facility] 05-30-2023 10:29-0500 Body weight 68.95 kg Sangeetha Dunbars DO Work Phone: [facility] 05-30-2023 10:29-0500 Diastolic blood pressure 70 mm[Hg] Sangeetha Dunbars DO Work Phone: [facility] 05-30-2023 10:29-0500 Heart rate 71 /min Sangeetha Quick DO Work Phone: [facility] 05-30-2023 10:29-0500 SaO2% (BldA) [Mass fraction] 96 % Sangeetha Quick DO Work Phone: [facility] 05-30-2023 10:29-0500 Systolic blood pressure 120 mm[Hg] Sangeetha Quick DO Work Phone: [facility] Encounters Encounter Date Encounter Type Care Provider Facility Start: 07-25-2023 End: 07-25-2023 ambulatory [facility] Start: 07-01-2023 End: 07-01-2023 ambulatory [facility] Start: 07-01-2023 End: 07-01-2023 Office outpatient visit 25 minutes Sangeetha Quick DO Work Phone: [facility] Comment on above: 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, bilateral (Primary Dx); Osteoarthritis of left shoulder, unspecified osteoarthritis type; Immunization due Start: 06-27-2023 End: 06-28-2023 ambulatory [facility] Start: 06-25-2023 End: 06-25-2023 ambulatory [facility] Start: 06-25-2023 End: 06-25-2023 Office outpatient visit 25 minutes Sangeetha Quick DO Work Phone: [facility] Comment on above: Localized osteoarthr itis of left knee (Primary Dx) Start: 05-30-2023 End: 05-31-2023 ambulatory SANGEETHA Alek QUICK [facility] Start: 05-30-2023 End: 05-30-2023 ambulatory [facility] Start: 05-30-2023 End: 05-30-2023 Office outpatient visit 25 minutes Sangeetha Quick DO Work Phone: [facility] Comment on above: Hypothyroidism, unsp ecified type (Primary Dx); Cobalamin deficiency; Hyperlipidemia, unspecified hyperlipidemia type; Osteoarthritis of left shoulder, unspecified osteoarthritis type Start: 09-28-2022 ambulatory NARENDRANATH LAKSHMIPATHY Facility:[facility] Start: 09-04-2022 ambulatory NARENDRANATH LAKSHMIPATHY Facility:[facility] Start: 08-28-2022 End: 08-28-2022 ambulatory NARENDRANATH [...] End: 01-12-[address] YINKA BARRAZA . Facility: Start: 12-14-2021 End: 12-15-[address] YINKA BARRAZA . Facility:[facility] Start: 09-07-2021 End: 09-08-[address] YINKA BARRAZA . Facility: Procedures Date Procedure Procedure Detail Performing Clinician Start: 07-01-2023 Adult depression screening assessment Sangeetha Quick DO Work Phone: Start: 06-25-2023 Adult depression screening assessment Sangeetha Quick DO Work Phone: Start: 05-30-2023 Adult depression screening assessment Sangeetha Quick DO Work Phone: Plan of Treatment Date Care Activity Detail Author Start: 06-30-2024 Adult BMI Screening Adult BMI Screen ing [facility] Start: 06-30-2024 Depression Screening Depression Scre ening [facility] Start: 06-30-2024 Fall Risk Screening Fall Risk Screen ing [facility] Start: 06-30-2024 Tobacco Screening Tobacco Screening [facility] Start: 06-24-2024 Adult BMI Screening Adult BMI Screen ing [facility] Start: 06-24-2024 Depression Screening Depression Scre ening [facility] Start: 06-24-2024 Fall Risk Screening Fall Risk Screen ing [facility] Start: 06-24-2024 Tobacco Screening Tobacco Screening [facility] Start: 05-30-2024 Adult BMI Screening Adult BMI Screen ing [facility] Start: 05-30-2024 Depression Screening Depression Scre ening [facility] Start: 05-30-2024 Fall Risk Screening Fall Risk Screen ing [facility] Start: 05-30-2024 Tobacco Screening Tobacco Screening [facility] Start: 05-21-2024 DTaP,Tdap and Td Vaccines (2 - Td or Tdap) DTaP,Tdap and Td Vaccines (2 - Td or Tdap) [facility] Start: 12-03-2023 End: 12-03-2023 Patient encounter procedure 12/03/2023 2:00 PM EDT Office Visit [facility] [address] [place] [id number] [facility] Start: 11-28-2023 Medicare Annual Well ness Visit Medicare Annual Wellness Visit [facility] Start: 07-14-2023 Influenza vaccination Influenza Vacc ine [facility] Comment on above: Postponed from 12/14 (Vaccine Not Available) Start: 06-25-2023 End: 06-24-2024 XR Knee - left 3 Views X-ray knee left 3 views Imaging Routine Localized osteoarthritis of left knee Expected: 06/25/2023, Expires: 06/24/2024 [facility] Work Phone: Comment on above: Expected: 06/25/2023 , Expires: 06/24/2024 Start: 12-14-2022 COVID-19 Vaccine ( season) COVID-19 Vaccine ( season) [facility] Start: 12-14-2022 Influenza vaccination Influenza Vacc ine [facility] Start: 12-20-1997 Administration of varicella zoster vaccine Zoster (Shingles) Vaccine (1 of 2) [facility] Start: 12-20-1965 Adult BMI Follow Up Plan Adult BMI F ollow Up Plan [facility] Immunizations Immunization Date Immunization Notes Care Provider Dima landon 04-24-2017 Influenza, injectabl e, Madin [place] Canine Kidney, preservative free, quadrivalent Sangeetha Yuhas DO Work Phone: [facility] 04-24-2017 influenza virus vacc ine, unspecified formulation Sangeetha Dunbars DO Work Phone: [facility] 03-15-2016 pneumococcal polysaccharide vaccine, 23 valent Sangeetha Yuhas DO Work Phone: [facility] 01-11-2016 influenza, seasonal, injectable, preservative free Sangeetha Yuhas DO Work Phone: [facility] 01-05-2015 influenza, seasonal, injectable, preservative free Sangeetha Yuhas DO Work Phone: [facility] 01-05-2015 pneumococcal conjuga te vaccine, 13 valent Sangeetha Yuhas DO Work Phone: [facility] 05-21-2014 pneumococcal polysaccharide vaccine, 23 valent Sangeetha Quick DO Work Phone: [facility] 05-21-2014 tetanus toxoid, redu mary diphtheria toxoid, and acellular pertussis vaccine, adsorbed Sangeetha Quick DO Work Phone: [facility] Payers Date Payer Category Payer Private Health Insurance [employer] [id number] 2021-Present [phone] [address] [address] [place] [address] [id number] 2010 Medicare MEDICARE MEDICAR E PART A & B [id number] 2010-Present [phone] [address] [place] [address] [id number] 1959 Medicare [id number] 1959 Private Health Insurance CLI [id number] 1945 Unknown [id number] [id number] .2.593 1945 Unknown [id number] 2.16.840.1.483842.3.579 .2.59 1945 Unknown [id number] 2.16.840.1.185758.3.579 .2.593 1947 Unknown [id number] 2.16.840.1.105481.3.579 .2.593 1947 Unknown [id number] 2.16.840.1.818443.3.579 .2.593 1947 Unknown [id number] 2.16.840.1.723133.3.579 .2.593 1947 Unknown [id number] 2.16.840.1.766058.3.579 .2.593 1947 Unknown [id number] 2.16.840.1.829662.3.579 .2.593 1947 Unknown [id number] 2.16.840.1.392840.3.579 .2.593 1947 Unknown [id number] 2.16.840.1.191470.3.579 .2.593 1947 Unknown [id number] 2.16.840.1.795100.3.579 .2.593 1947 Unknown [id number] 2.16.840.1.039028.3.579 .2.593 1947 Unknown [id number] 2.16.840.1.443039.3.579 .2.593 1947 Unknown [id number] 2.16840.1.470425.3.579 .2.593 1947 Unknown [id number] 2.16.840.1.694191.3.579 .2.593 1947 Unknown [id number] 2.16.840.1.690979.3.579 .2.1286 1947 Unknown [id number] 2.16.840.1.803925.3.579 .2.1286 1947 Unknown [id number] 2.16840.1.417531.3.579 .2.1286 1947 Unknown [id number] 2.16.840.1.637256.3.579 .2.1286 1947 Unknown [id number] 2.16840.1.492607.3.579 .2.1286 1945 Unknown [id number] 2.16840.1.926803.3.579 .2.1286 Social History Date Type Detail Facility Start: 05-14-2022 Tobacco smoking stat [facility] Never smoked tobacco [facility] Start: 05-14-2022 Tobacco use and exposure Smoke less tobacco non-user [facility] Start: 05-30-2023 End: 07-01-2023 Alcohol intake Current non-drinker of alcohol (finding) [facility] Start: 11-27-2022 End: 07-01-2023 History of Social function [facility] Start: 11-27-2022 End: 07-01-2023 Social connection and isolation panel [facility] Do you belong to any clubs or organizations such as mandaeism groups, unions, fraternal or athletic groups, or school groups? Yes [facility] Are you now , , , , never or living with a partner? [facility] How often to you hav e a drink containing alcohol? Never [facility] How many standard dr inks containing alcohol do you have on a typical day? Patient does not drink [facility] How hard is it for y ou to pay for the very basics like food, housing, medical care, and heating Hard [facility] Do you feel stress - tense, restless, nervous, or anxious, or unable to sleep at night because your mind is troubled all the time - these days [OSQ] Very much [facility] Start: 1945 Sex Assigned At Not on file P [facility] Clinical Notes 09-07-2021 to 07-01-2023 Sangeetha Quick, DO - 07/01/2023 3:45 PM Denise Qucik, DO - 06/25/2023 11:15 AM Denise Quick, DO - 05/30/2023 10:10 AM EST Note Date & Type Note Facility 07-01-2023 History of Present illness Narrative IM PROGRESS NOTE Patient - Rach Munroe Age - 77 y.o. - 1945 ASSESSMENT & PLAN 1. Primary osteoarthritis of knees, bilateral -I reviewed the results of the x-rays recently performed with the patient. Has moderate tricompartmental disease. -has gotten fair to good relief with prednisone orally. -advised patient no absolute indication for injection today since her pain is better. However if the pain would return once the prednisone is gone we can consider another steroid injection, or evaluate for repeat Synvisc injection. 2. Osteoarthritis of left shoulder, unspecified osteoarthritis type -currently seeing pain management for this problem. -no changes today 3. Immunization due -I reviewed the recommended vaccinations with the patient. -she is at the end of season for flu vaccinations. It is not available here in the clinic. I told her to wear a mask if she is in a crowded room at least for the next several weeks. -does need Shingrix vaccination. Written instructions given to the patient, and an order was sent to her pharmacy. Subjective 77-year-old female presents for recheck her knee pain. At last visit was evaluated for knee pain and had x-rays performed which showed moderate tricompartmental osteoarthritis of both knees, especially on the left. She was started on a prednisone burst, and says the pain is much improved, although not gone completely. -she has been able to walk without pain, and able to operate the pedals on her cars, and go up and down stairs without discomfort as she previously noted. -she is here to discuss potential knee injections. She did have Synvisc injections with Orthopedic surgery 5-6 years ago. -no current falls, but the knee does feel unstable. A review of systems was negative except for the following: General: Has questions about what immunizations are needed. Musculoskeletal: gait disturbance, joint pain, and joint stiffness. Exam BP 136/70 (BP Site: Left Arm, BP Postition: Sitting) Pulse 87 Temp 36.8 C (98.2 F) (Oral) Ht 149.9 cm (4' 11 ) Wt 69.9 kg (154 lb) SpO2 99% BMI 31.10 kg/m Physical Exam Vitals reviewed. Constitutional: General: She is not in acute distress. Appearance: She is well-developed. She is obese. She is not toxic-appearing. HENT: Head: Normocephalic. Right Ear: External ear normal. Left Ear: External ear normal. Nose: Nose normal. Mouth/Throat: Mouth: Mucous membranes are moist. Eyes: General: No scleral icterus. Neck: Vascular: No carotid bruit. Cardiovascular: Rate and Rhythm: Normal rate and regular rhythm. Pulses: Normal pulses. Heart sounds: No murmur heard. No gallop. Pulmonary: Effort: Pulmonary effort is normal. Breath sounds: No wheezing or rales. Abdominal: Palpations: Abdomen is soft. Musculoskeletal: General: Tenderness (Medial and lateral joint space on the left knee. Crepitance and possible positive Cody.) present. Right lower leg: No edema. Left lower leg: No edema. Skin: General: Skin is warm and dry. Coloration: Skin is not jaundiced. Findings: No bruising. Neurological: General: No focal deficit present. Mental Status: She is alert and oriented to person, place, and time. Sensory: No sensory deficit. Motor: No weakness. Coordination: Coordination normal. Deep Tendon Reflexes: Reflexes are normal and symmetric. Psychiatric: Mood and Affect: Mood normal. Behavior: Behavior normal. Meds Current Outpatient Medications: acetaminophen (TYLENOL) 650 mg 8 hr tablet, Take 1 tablet (650 mg total) by mouth in the morning., Disp: , Rfl: cholecalciferol (VITAMIN D3) 50,000 units capsule, TAKE 1 CAPSULE BY MOUTH ONCE WEEKLY, Disp: , Rfl: cyanocobalamin, vitamin B-12, (VITAMIN B-12) 1,000 mcg tablet extended release, TAKE 2 TABLETS BY MOUTH EVERY DAY, Disp: 180 tablet, Rfl: 3 ergocalciferol (DRISDOL) 1,250 mcg (50,000 unit) capsule, TAKE 1 CASPULE BY MOUTH ONCE TIME PER WEEK, Disp: , Rfl: estradioL (ESTRACE) 0.01 % (0.1 mg/gram) vaginal cream, Use at night once or twice weekly, Disp: 42.5 g, Rfl: 1 levothyroxine (SYNTHROID, LEVOTHROID) 50 MCG tablet, TAKE 1 TABLET BY MOUTH EVERY DAY, Disp: 90 tablet, Rfl: 1 rOPINIRole (REQUIP) 0.25 mg tablet, TAKE 1 TABLET BY MOUTH EVERY DAY 1-3 HOURS BEFORE BEDTIME, Disp: , Rfl: rosuvastatin (CRESTOR) 10 mg tablet, TAKE 1 TABLET BY MOUTH EVERY DAY, Disp: 90 tablet, Rfl: 1 tiZANidine (ZANAFLEX) 2 mg tablet, TAKE 1 TABLET BY MOUTH TWICE DAILY NEEDED FOR MUSCLE SPASMS, Disp: 30 tablet, Rfl: 2 traMADoL (ULTRAM) 50 mg tablet, , Disp: , Rfl: Lab Results No visits with results within 1 Month(s) from this visit. Latest known visit with results is: Hospital Outpatient Visit on 05/30/2023 Component Date Value Ref Range Status TSH 05/30/2023 0.95 0.49 - 4.67 uIU/mL Final T4, free 05/30/2023 0.92 0.61 - 1.60 ng/dL Final Cholesterol 05/30/2023 140 (L) 150 - 200 mg/dL Final Triglycerides 05/30/2023 82 27 - 150 mg/dL Final HDL Cholesterol 05/30/2023 55 >39 mg/dL Final VLDL 05/30/2023 16 0 - 30 mg/dL Final LDL (calc) 05/30/2023 69 <130 mg/dL Final Cholesterol:HDL Ratio 05/30/2023 2.5 1.0 - 5.0 Final Sodium 05/30/2023 142 134 - 146 mmol/L Final Potassium, Bld 05/30/2023 4.4 3.5 - 5.0 mmol/L Final Chloride 05/30/2023 105 98 - 109 mmol/L Final CO2 05/30/2023 31 22 - 32 mmol/L Final Anion gap 05/30/2023 6 5 - 15 mmol/L Final BUN 05/30/2023 18 5 - 27 mg/dL Final Creatinine 05/30/2023 0.65 0.40 - 1.00 mg/dL Final Glucose 05/30/2023 101 (H) 65 - 99 mg/dL Final Calcium 05/30/2023 9.1 8.5 - 10.5 mg/dL Final Total Protein 05/30/2023 6.9 6.0 - 8.0 g/dL Final Albumin 05/30/2023 4.3 3.2 - 5.3 g/dL Final Alkaline Phosphatase 05/30/2023 63 39 - 130 U/L Final AST 05/30/2023 15 0 - 41 U/L Final ALT 05/30/2023 15 0 - 31 U/L Final Total bilirubin 05/30/2023 0.3 0.3 - 1.2 mg/dL Final eGFR (CKD-EPI)non-race dependent 05/30/2023 >90 >59 ml/min/1.73sq.m Final Other Testing No results found. Sangeetha Quick DO., [facility] Office: [phone] documented in this encounter [facility] 06-25-2023 History of Present illness Narrative IM PROGRESS NOTE Patient - Rach Munroe Age - 77 y.o. - 1945 ASSESSMENT & PLAN 1. Localized osteoarthritis of left knee -still with tenderness and pain, although unable to reproduce any instability on exam today -will obtain x-ray of the knee to look for any significant bony changes -prednisone 40 mg daily for the next 5 days -most likely will need orthopedic re-evaluation - predniSONE (DELTASONE) 20 mg tablet; Take 2 tablets (40 mg total) by mouth in the morning for 5 days. Dispense: 10 tablet; Refill: 0 - X-ray knee left 3 views; Future Subjective 77-year-old female presents for evaluation of left leg pain. Pain located in the left knee area, has been progressively worsening over the past several months. Has had no falls, but it is feeling more unstable. -currently using OTC medications such as Tylenol, topical liniment such as Voltaren gel or icy hot, and getting minimal if any relief. -does apply heat and ice without relief. -does have a history of injections in the left knee by Orthopedics, which she thought gave some temporary partial relief. -there have been no new injuries or trauma to the knee. -it hurts if she tries to bend or get down on her hands and knees to play with her grandchildren. -she did try stopping the tramadol which has been prescribed by pain clinic, and the pain in her knees has gotten much worse. She did restart taking it yesterday. A review of systems was negative except for the following: Musculoskeletal: gait disturbance, joint pain, joint stiffness, and pain in knee - left. Exam BP 120/70 (BP Site: Left Arm, BP Postition: Sitting) Pulse 73 Temp 36.8 C (98.3 F) (Tympanic) Ht 149.9 cm (4' 11 ) Wt 69.8 kg (153 lb 12.8 oz) SpO2 97% BMI 31.06 kg/m Physical Exam Vitals reviewed. Constitutional: General: She is not in acute distress. Appearance: She is well-developed. She is obese. She is not toxic-appearing. HENT: Head: Normocephalic. Right Ear: External ear normal. Left Ear: External ear normal. Nose: Nose normal. Mouth/Throat: Mouth: Mucous membranes are moist. Eyes: General: No scleral icterus. Neck: Vascular: No carotid bruit. Cardiovascular: Rate and Rhythm: Normal rate and regular rhythm. Pulses: Normal pulses. Heart sounds: No murmur heard. No gallop. Pulmonary: Effort: Pulmonary effort is normal. Breath sounds: No wheezing or rales. Abdominal: Palpations: Abdomen is soft. Musculoskeletal: General: Tenderness (Medial and lateral joint space on the left knee. Crepitance and possible positive Cody.) present. Right lower leg: No edema. Left lower leg: No edema. Skin: General: Skin is warm and dry. Coloration: Skin is not jaundiced. Findings: No bruising. Neurological: General: No focal deficit present. Mental Status: She is alert and oriented to person, place, and time. Sensory: No sensory deficit. Motor: No weakness. Coordination: Coordination normal. Deep Tendon Reflexes: Reflexes are normal and symmetric. Psychiatric: Mood and Affect: Mood normal. Behavior: Behavior normal. Meds Current Outpatient Medications: acetaminophen (TYLENOL) 650 mg 8 hr tablet, Take 1 tablet (650 mg total) by mouth in the morning., Disp: , Rfl: cholecalciferol (VITAMIN D3) 50,000 units capsule, TAKE 1 CAPSULE BY MOUTH ONCE WEEKLY, Disp: , Rfl: cyanocobalamin, vitamin B-12, (VITAMIN B-12) 1,000 mcg tablet extended release, TAKE 2 TABLETS BY MOUTH EVERY DAY, Disp: 180 tablet, Rfl: 3 ergocalciferol (DRISDOL) 1,250 mcg (50,000 unit) capsule, TAKE 1 CASPULE BY MOUTH ONCE TIME PER WEEK, Disp: , Rfl: estradioL (ESTRACE) 0.01 % (0.1 mg/gram) vaginal cream, Use at night once or twice weekly, Disp: 42.5 g, Rfl: 1 levothyroxine (SYNTHROID, LEVOTHROID) 50 MCG tablet, TAKE 1 TABLET BY MOUTH EVERY DAY, Disp: 90 tablet, Rfl: 1 rOPINIRole (REQUIP) 0.25 mg tablet, TAKE 1 TABLET BY MOUTH EVERY DAY 1-3 HOURS BEFORE BEDTIME, Disp: , Rfl: rosuvastatin (CRESTOR) 10 mg tablet, TAKE 1 TABLET BY MOUTH EVERY DAY, Disp: 90 tablet, Rfl: 1 tiZANidine (ZANAFLEX) 2 mg tablet, TAKE 1 TABLET BY MOUTH TWICE DAILY NEEDED FOR MUSCLE SPASMS, Disp: 30 tablet, Rfl: 2 traMADoL (ULTRAM) 50 mg tablet, , Disp: , Rfl: predniSONE (DELTASONE) 20 mg tablet, Take 2 tablets (40 mg total) by mouth in the morning for 5 days., Disp: 10 tablet, Rfl: 0 Lab Results Hospital Outpatient Visit on 05/30/2023 Component Date Value Ref Range Status TSH 05/30/2023 0.95 0.49 - 4.67 uIU/mL Final T4, free 05/30/2023 0.92 0.61 - 1.60 ng/dL Final Cholesterol 05/30/2023 140 (L) 150 - 200 mg/dL Final Triglycerides 05/30/2023 82 27 - 150 mg/dL Final HDL Cholesterol 05/30/2023 55 >39 mg/dL Final VLDL 05/30/2023 16 0 - 30 mg/dL Final LDL (calc) 05/30/2023 69 <130 mg/dL Final Cholesterol:HDL Ratio 05/30/2023 2.5 1.0 - 5.0 Final Sodium 05/30/2023 142 134 - 146 mmol/L Final Potassium, Bld 05/30/2023 4.4 3.5 - 5.0 mmol/L Final Chloride 05/30/2023 105 98 - 109 mmol/L Final CO2 05/30/2023 31 22 - 32 mmol/L Final Anion gap 05/30/2023 6 5 - 15 mmol/L Final BUN 05/30/2023 18 5 - 27 mg/dL Final Creatinine 05/30/2023 0.65 0.40 - 1.00 mg/dL Final Glucose 05/30/2023 101 (H) 65 - 99 mg/dL Final Calcium 05/30/2023 9.1 8.5 - 10.5 mg/dL Final Total Protein 05/30/2023 6.9 6.0 - 8.0 g/dL Final Albumin 05/30/2023 4.3 3.2 - 5.3 g/dL Final Alkaline Phosphatase 05/30/2023 63 39 - 130 U/L Final AST 05/30/2023 15 0 - 41 U/L Final ALT 05/30/2023 15 0 - 31 U/L Final Total bilirubin 05/30/2023 0.3 0.3 - 1.2 mg/dL Final eGFR (CKD-EPI)non-race dependent 05/30/2023 >90 >59 ml/min/1.73sq.m Final Other Testing No results found. Sangeetha Quick DO., [facility] Office: [phone] documented in this encounter [facility] 05-30-2023 History of Present illness Narrative IM PROGRESS NOTE Patient - Rach Munroe Age - 77 [facility] 1945 [id number] ASSESSMENT & PLAN 1. Hypothyroidism, unspecified type -currently taking levothyroxine 50 mcg daily -repeat TFT to assess efficacy of current replacement therapy - Thyroid profile includes TSH FT4; Future 2. Cobalamin deficiency -currently taking cyanocobalamin 1000 mcg daily -no change to current treatment 3. Hyperlipidemia, unspecified hyperlipidemia type -currently taking rosuvastatin 10 mg daily -repeat lipid panel to assess efficacy and side effects of current treatment - Lipid profile; Future - Comprehensive metabolic panel; Future 4. Osteoarthritis of left shoulder, unspecified osteoarthritis type -multiple joints, especially low back and left knee -keep routine follow-up with Pain Clinic and orthopedics Subjective 77-year-old female presents for recheck visit on multiple medical conditions. Since her last visit here, has had increased personal stress due to family conditions. Her father . Her mother has moved into a memory unit at a [facility], and a son was found at home. She continues to deal with this, along with the recent of her . She is having trouble communicating with the staff wear her mother's residing now and this causes her much consternation. -she continues to have joint pain in her back, knees, neck. She is going to pain management for LENY of the lumbar spine which overall seem to be helping. Still on tramadol and tizanidine regularly. -she is taking her thyroid medication routinely. Has not had thyroid function checked for nearly a year or more. -previously had a very low B12 level, and is taking B12 supplementation. -bowel symptoms have improved, no longer having diarrhea. -she is concerned that she might be having memory loss. Sometimes forget some names, and feels flustered when lots of things are happening at once. A review of systems was negative except for the following: Psychiatric: concentration difficulties and depression ENT: hearing change and frequent sinus congestion Genito-Urinary: urinary frequency/urgency Musculoskeletal: joint pain, joint stiffness, and occasional instability in the left knee Neurological: numbness/tingling. Exam BP 120/70 (BP Site: Left Arm, BP Postition: Sitting) Pulse 71 Temp 36.7 C (98.1 F) (Oral) Ht 149.9 cm (4' 11 ) Wt 68.9 kg (152 lb) SpO2 96% BMI 30.70 kg/m Physical Exam Vitals reviewed. Constitutional: General: She is not in acute distress. Appearance: She is well-developed. She is obese. She is not toxic-appearing. HENT: Head: Normocephalic. Right Ear: External ear normal. Left Ear: External ear normal. Nose: Nose normal. Mouth/Throat: Mouth: Mucous membranes are moist. Eyes: General: No scleral icterus. Conjunctiva/sclera: Conjunctivae normal. Neck: Vascular: No carotid bruit. Cardiovascular: Rate and Rhythm: Normal rate and regular rhythm. Pulses: Normal pulses. Heart sounds: No murmur heard. No gallop. Pulmonary: Effort: Pulmonary effort is normal. Breath sounds: No wheezing or rales. Abdominal: Palpations: Abdomen is soft. Musculoskeletal: General: Tenderness (Medial and lateral joint space on the left knee. Crepitance and positive Cody.) present. Right lower leg: No edema. Left lower leg: No edema. Skin: General: Skin is warm and dry. Coloration: Skin is not jaundiced. Findings: No bruising. Neurological: General: No focal deficit present. Mental Status: She is alert and oriented to person, place, and time. Sensory: No sensory deficit. Deep Tendon Reflexes: Reflexes are normal and symmetric. Comments: 6CIT 06/12 Psychiatric: Mood and Affect: Mood normal. Behavior: Behavior normal. Meds Current Outpatient Medications: acetaminophen (TYLENOL) 650 mg 8 hr tablet, Take 1 tablet (650 mg total) by mouth in the morning., Disp: , Rfl: cyanocobalamin, vitamin B-12, (VITAMIN B-12) 1,000 mcg tablet extended release, TAKE 2 TABLETS BY MOUTH EVERY DAY, Disp: 180 tablet, Rfl: 3 ergocalciferol (DRISDOL) 1,250 mcg (50,000 unit) capsule, TAKE 1 CASPULE BY MOUTH ONCE TIME PER WEEK, Disp: , Rfl: estradioL (ESTRACE) 0.01 % (0.1 mg/gram) vaginal cream, Use at night once or twice weekly, Disp: 42.5 g, Rfl: 1 levothyroxine (SYNTHROID, LEVOTHROID) 50 MCG tablet, TAKE 1 TABLET BY MOUTH EVERY DAY, Disp: 90 tablet, Rfl: 0 rOPINIRole (REQUIP) 0.25 mg tablet, TAKE 1 TABLET BY MOUTH EVERY DAY 1-3 HOURS BEFORE BEDTIME, Disp: , Rfl: rosuvastatin (CRESTOR) 10 mg tablet, TAKE 1 TABLET BY MOUTH EVERY DAY, Disp: 90 tablet, Rfl: 1 tiZANidine (ZANAFLEX) 2 mg tablet, TAKE 1 TABLET BY MOUTH TWICE DAILY NEEDED FOR MUSCLE SPASMS, Disp: 30 tablet, Rfl: 2 traMADoL (ULTRAM) 50 mg tablet, , Disp: , Rfl: Lab Results No visits with results within 1 Month(s) from this visit. Latest known visit with results is: Hospital Outpatient Visit on 12/31/2022 Component Date Value Ref Range Status Sodium 12/31/2022 143 134 - 146 mmol/L Final Potassium, Bld 12/31/2022 3.9 3.5 - 5.0 mmol/L Final Chloride 12/31/2022 108 98 - 109 mmol/L Final CO2 12/31/2022 27 22 - 32 mmol/L Final Anion gap 12/31/2022 8 5 - 15 mmol/L Final BUN 12/31/2022 15 5 - 27 mg/dL Final Creatinine 12/31/2022 0.59 0.40 - 1.00 mg/dL Final Glucose 12/31/2022 99 65 - 99 mg/dL Final Calcium 12/31/2022 8.8 8.5 - 10.5 mg/dL Final eGFR (CKD-EPI)non-race dependent 12/31/2022 >90 >59 ml/min/1.73sq.m Final Vit D, 25-Hydroxy 12/31/2022 50.1 30 - 100 ng/mL Final Other Testing No results found. Sangeetha Quick DO., [facility] Office: [phone] documented in this encounter [facility] 07-19-2022 Note CONSULTATION CONSULTATION DATE: 07/19/2022 TO: [...] our patients to inform us about any [id number] medications or herbal remedies/nutritional supplements/alternative remedies. 2. [...] options with their primary care provider. [facility] 04-26-2022 Note CONSULTATION CONSULTATION DATE: 04/26/2022 HISTORY [...] three months' time unless otherwise indicated. [facility] 03-27-2022 Note CONSULTATION CONSULTATION DATE: 03/27/2022 CHIEF [...] to proceed. CC: Sangeetha Quick D.O. [facility] 02-08-2022 Note CONSULTATION CONSULTATION DATE: 02/08/2022 This [...] The patient agrees with this plan. [facility] 01-11-2022 Note CONSULTATION CONSULTATION DATE: 01/11/2022 HISTORY [...] Patient would like to move forward. [facility] 12-14-2021 Note CONSULTATION PROCEDURE DATE: 12/14/2021 PREOPERATIVE [...] be followed up in the office. [facility] 12-14-2021 Note CONSULTATION CONSULTATION DATE: 12/14/2021 HISTORY [...] well, which she does consent to. [facility] 09-07-2021 Note CONSULTATION CONSULTATION DATE: 09/07/2021 HISTORY [...] in the fall. She was referred to [facility] Neuro[facility] and is planning to have surgery in the fall following harvest season. 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 Patient feels that she can make it through the summer with a combination of her medication and occasional trigger point injections. 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 She uses heat [...] in three months' time, unless otherwise indicated. [facility] Signed and Approved by: MARIELY YUAN . 09/14/2021 16:04:00 [facility] Evaluation note Diagnosis Hypothyroidism, unspecified type- Primary Cobalamin deficiency Other B-complex deficiencies Hyperlipidemia, unspecified hyperlipidemia type Osteoarthritis of left shoulder, unspecified osteoarthritis type documented in this encounter [facility]* Diagnosis Localized osteoarthritis of left knee- Primary documented in this encounter [facility]* Diagnosis Primary osteoarthritis of knees, bilateral- Primary Osteoarthritis of left shoulder, unspecified osteoarthritis type Immunization due documented in this encounter [facility] SystemInstructionsNot on filedocumented in this encounter [facility] SystemInstructionsNot on filedocumented in this encounter [facility] SystemInstructions* Attachments The following attachments cannot be sent through Care Everywhere. * Osteoarthritis Discharge Instructions (Singaporean) [facility] Purpose Family History No Family History Records FoundNo Family History Records FoundNo Family History Records FoundNo Family History Records FoundNo Family History Records Found Advance Directives No Advanced Directives Records FoundNo Advanced Directives Records FoundNo Advanced Directives Records FoundNo Advanced Directives Records FoundNo Advanced Directives Records Found Additional Source Comments INFORMATION SOURCE (unrecogn ized section and content) DATE CREATED AUTHOR 09/01/2021 [facility] DATE CREATED AUTHOR AUTHOR'S ORGANIZ ATION 08/29/2022 [facility] DATE CREATED AUTHOR AUTHOR'S ORGANIZ ATION 06/01/2023 [facility] DATE CREATED AUTHOR AUTHOR'S ORGANIZ ATION 06/28/2023 [facility] DATE CREATED AUTHOR AUTHOR'S ORGANIZ ATION 07/26/2023 [facility] Reason for Visit (unrecogniz ed section and content) Reason Comments Thyroid Problem Hyperlipidemia Reason Comments Knee Pain Left knee Reason Comments lt knee injury, now both hurting Feeling better. Pain level is at a 6 Care Teams (unrecognized sec tion and content) [employer] Relationship Specialty Start Date End Date Sangeetha Quick DO [address] [place] [address] PCP - General 11/09/13 [employer] Relationship Specialty Start Date End Date Sangeetha Quick DO [address] [place] [address] PCP - General 11/09/13 [employer] Relationship Specialty Start Date End Date Sangeetha Quick DO [address] [place] [address] [facility] 11/09/13 FOR RECORDS PERTAINING TO PATIENTS WHO ARE [...] BE BASED ON THE PRIMARY CLINICAL RECORDS. [facility]. provides no warranty or guarantee of the accuracy or completeness of information in this document.
== END 2023-08-22 09:55 | disposition home or self-care (01) ==
LOC: PM 09:55
PROVIDERS: PCP Internal Medicine; Visit Provider Nurse Practitioner
DX: M79.18 Myalgia, other site (principal); Z79.891 Long term (current) use of opiate analgesic; M47.816 Spondylosis without myelopathy or radiculopathy, lumbar region; G89.4 Chronic pain syndrome; M25.562 Pain in left knee; M17.12 Unilateral primary osteoarthritis, left knee; G57.93 Unspecified mononeuropathy of bilateral lower limbs
CPT/HCPCS: 20552

== ENCOUNTER 2023-09-11 14:20 | Outpatient (OUT) | payer MEDICARE, SELFPAY ==
--- NOTE | 2023-09-11 14:51 | P.CN_ITS ---
Consult Note: HPI Data of Consult Patient: known to practice within the last 3 years Requesting Physician: Rosina Fleming NP Primary Care Provider: SANGEETHA QUICK Consult Narrative Reason for consult: f/u Narrative: Rach Hernandez a pleasant 77 year old female presents for evaluation and management of chronic left knee pain. Patient has a hx of left knee OA that responds well to HUBER injections, failed to benefit from steroid based injections most recently 07/01/23 helped for 2 days before pain returned to baseline. Unfortunately patient fell down the steps yesterday and landed on her right knee, reporting severe pain of right knee as well. Pain today 8/10 increasing to 10/10 with standing, weight bearing, activity. Improved with medications. Tolerating tylenol arthritis and tramadol 50mg BID PRN well without side effects, finds benefit. cc:: CC: Rosina Fleming NP Review of Systems 2 ROS0 Status of ROS 10 or more systems reviewed and unremark able except as noted in history and below Musculoskeletal Reports: back pain and extremity pain Meds Home Medications and Allergies Home Medications ?Medication ?Instructions ?Recorded ?Confirmed ?Type acetaminophen 325 mg tablet (Aphen) 650 mg PO Q6H PRN pain 10/10/22 05/07/23 History levothyroxine 50 mcg capsule 50 mcg PO DAILY 10/11/22 05/07/23 History ropinirole 0.25 mg tablet 0.25 mg PO DAILY 10/11/22 05/07/23 History rosuvastatin 10 mg tablet 10 mg PO DAILY 10/11/22 05/07/23 History tizanidine 2 mg tablet 2 mg PO BID PRN spasm 10/11/22 05/07/23 History tramadol 50 mg tablet 50 mg PO BID 10/11/22 05/07/23 History zoledronic acid 5 mg/100 mL in ea IV .1 YEAR 01/10/23 History mannitol 5 %-water intravenous piggybck (Reclast) Allergies Allergy/AdvReac Type Severity Reaction Status Date / Time aspirin Allergy Verified 05/07/23 07:42 codeine Allergy Verified 05/07/23 07:42 iodine Allergy Verified 05/07/23 07:42 latex Allergy Verified 05/07/23 07:42 pregabalin [From Lyrica] Allergy Verified 05/07/23 07:42 Sulfa (Sulfonamide Allergy Verified 05/07/23 07:42 Antibiotics) Exam Constitutional Documenting provider has reviewed patient's vital signs: yes Common normals: no apparent distress, oriented x3, healthy appearing, alert and well nourished General appearance: cooperative HENMT Common normals: normocephalic, hearing grossly normal bilaterally and moist oral mucous membranes Head and scalp: normocephalic Eye Common normals: PERRL Pupil: PERRL Neck & C-Spine Common normals: full ROM General: normal visual inspection Other: pain with ROM positive spurlings left intermittent radiculopathy to left arm Chest Common normals: inspection of chest normal Respiratory Common normals: normal respiratory effort, no retractions and no use of accessory muscles Back & Pelvis Thoracic spine/upper back: pain with ROM Lumbar spine/lower back: pain with ROM, paraspinal muscle spasm Lumbar paraspinal muscle spasm: right and straight leg raise negative bilaterally Sacroiliac joints: SI joint(s) abnormal Other: pain with jose l, FADER, gaenslen. Right>L Extremity Common normals: normal to inspection and full ROM Left lower extremity: knee joint Left knee: inspection (mild edema noted, no discoloration or redness), palpation (tenderness most significant over MCL and meniscus), ROM (limited due to pain) and special tests Other: diffuse mild joint pain to left knee right knee enlarged, warm to touch, severe tenderness, limited ROM. Pain increased over patellar ligament insertion site. no instability noted Extremity image (front): 2 1. Neuro Common normals: oriented x3, CN's II-XII intact bilaterally, moves all extremities, no focal motor deficits, no sensory deficits noted and deep tendon reflexes 2+ bilaterally Sensorium/orientation: alert Motor exam: strength 5/5 throughout and no movement abnormalities noted Psych Common normals: mental status grossly normal, thought process normal, cooperative, affect normal, speech normal and activity/motor behavior normal Speech: normal speech Thought process: normal thought process Results Additional Findings Additional findings: If on a controlled substance or opioids, I have checked an OARRS report on this patient and there are no aberrancies noted in the prescribing history.??If on a controlled substance or opioid a drug screen was completed and reviewed within the last year, and if there has not been a drug screen completed we ordered one today to monitor higher risk, state monitored pain medication use. As part of providing excellent, safe, comprehensive care, the following was completed at our patient's visit: 1. A medication reconciliation and review to ensure accurate knowledge of current/active medications, including asking our patients to inform us about any jxpz-[id number] medications or herbal remedies/nutritional supplements/alternative remedies. 2. A review to specifically ensure our patients have had annual screening for screening for depression, screening for tobacco use, and screening for unhealthy alcohol use. For concerning screenings had a discussion with the patient, provided patient education, and recommended follow-up with primary care provider when appropriate. If patient noted with a risk of falling, they received education on strength, gait, and balance training to prevent future risk of falling. Assessment and Plan Assessment and Plan (1) Fall: (2) Osteoarthritis of left knee: (3) Acute pain of right knee: (4) Myofascial pain: (5) Lumbar spondylosis: (6) Chronic pain syndrome: (7) Chronic prescription opiate use: Assessment and Plan: I feel these medications are improving the patient's quality of life and allow them to tolerate activities of daily living as well as participate in recreational activity.? The patient does not report intolerable side effects. The patient is NOT opioid naive and non-pharmacologic and non-opioid treatment has failed to significantly relieve the patient's pain and improve functionality. The patient has a diagnosis that is related to a somatic or visceral pain etiology. ? ?? I reviewed with the patient the potential risks and side effects with the use of? opioid medications including but not limited to respiratory depression,? sedation, and even . I verified the patient has access to naloxone should? these effects occur. I advised the patient to avoid the use of any other? sedation substances including alcohol, THC, and benzodiazepines while? taking opioid medications due to the risk of compounding side effects and? detrimental outcomes. I reviewed the CREAM [employer]ER, pain treatment agreement, urine? drug screen, and opioid start talking forms. The patient was advised to let? their family know they had Naloxone in case they would need to administer? the medication.? ?? A drug screen was completed within the last year, and no aberrancies were noted regarding their use of controlled substances. The patient understands they are subject to the terms and conditions of the pain contract that they have signed. ? ?? I have checked an OARRS report on this patient today and there are no aberrancies noted in the prescribing history.? Plan update right knee xray left knee HUBER based injection under fluoroscopy with Dr Baker, risks vs benefits reviewed encouraged rest, ice, elevation for right knee pain declining PT for balance/gait training, 1 fall with injury refill and continue tramadol 50mg BID PRN moderate to severe pain, patient utilizes appropriately reports significant improvement in pain and function and denies side effects UDS today f/u after knee injection
== END 2023-09-11 14:21 | disposition home or self-care (01) ==
PROVIDERS: PCP Internal Medicine; Visit Provider Nurse Practitioner
DX: M25.561 Pain in right knee (principal); M79.18 Myalgia, other site; M47.816 Spondylosis without myelopathy or radiculopathy, lumbar region; G89.4 Chronic pain syndrome; Z79.891 Long term (current) use of opiate analgesic; M17.0 Bilateral primary osteoarthritis of knee
CPT/HCPCS: 73564; G0463

== ENCOUNTER 2023-09-11 15:00 | Outpatient (OUT) | payer MEDICARE, SELFPAY ==
--- NOTE | 2023-09-11 15:08 | XR_ITS ---
The [address] [address] Patient Name: PARMINDER MUNROE MRN: [id number] date: 1945 Sex: F Assigned Patient Location: [facility] Current Patient Location: [facility] Accession/Order Number: [id number] Exam Date: 09/11/2023 15:10 Report Date: 09/11/2023 15:33 At the request of: JB HOUSE Procedure: XR knee RT 4V PROCEDURE: XR knee RT 4V COMPARISON: None. HISTORY: Acute right knee pain, fall FINDINGS: BONES:No acute fracture or dislocation. Moderate to severe tricompartmental osteoarthritis. Extensive marginal osteophyte formation. Moderate narrowing medial joint space. SOFT TISSUES:Negative. No visible soft tissue swelling. EFFUSION:Moderate suprapatellar joint effusion OTHER: Negative. XR/XR knee RT 4V IMPRESSION: Moderate to severe tricompartmental osteoarthritis Electronically authenticated by: YONI PRESTON Date: 09/11/2023 15:33
== END 2023-09-11 15:01 | disposition home or self-care (01) ==
PROVIDERS: PCP Internal Medicine; Visit Provider Nurse Practitioner
DX: M25.561 Pain in right knee (principal); M17.11 Unilateral primary osteoarthritis, right knee
CPT/HCPCS: 73564

== ENCOUNTER 2023-10-01 07:50 | Day surgery (SDC) | payer MEDICARE, SELFPAY ==
[2023-10-01 08:24] VITALS: BP 133/58; PULSE 78; TEMP 36.8; O2SAT 98
[2023-10-01 08:51] VITALS: BP 175/72; BP 175/79; PULSE 73; PULSE 76; O2SAT 98; O2SAT 99
[2023-10-01] MEDS: IOHEXOL 240 MG/ML - 10 ML VIAL 12 MG INJ (08:54)
[2023-10-01] MEDS: LIDOCAINE HCL 2% PF 100 MG/5 ML VIAL 2 ML INJ (08:54)
[2023-10-01] MEDS: HYALURONATE SODIUM, STABILIZED 60 MG/3 ML SYRINGE IU (08:54)
--- NOTE | 2023-10-01 09:26 | P.ON_ITS ---
Date of procedure: 10/01/23 Pre-op diagnosis: Left knee osteoarthritis Post-op diagnosis: same as pre-op Procedure: Procedure: Left knee joint injection using Durolane 3ml. Immediate complications none. Anesthesia: 2% lidocaine plain for skin wheal. After informed consent was obtained, patient brought to the OR placed in the supine position. Skin overlying the area was prepped and draped using Betadine. 25-gauge 1/2 inch needle was used for skin wheal over the medial aspect of the k nee joint identified under fluoroscopy. Omnipaque dye was used to confirm needle tip placement within the knee joint space 0.5 mL use of the injection. Subsequently 3ml of durolane was injected into the space. No indication of intravascular or intraneuronal needle tip placement or injection was noted post procedure. The needle was removed, patient transferred to Recovery room in stable condition to discharged home after meeting criteria. Anesthesia: Local Surgeon: Suma Baker Condition: stable
== END 2023-10-01 08:57 | disposition home or self-care (01) ==
LOC: SURGOUT 07:51
PROVIDERS: PCP Internal Medicine; Visit Provider Anesthesiology Pain Medicine
DX: M17.12 Unilateral primary osteoarthritis, left knee (principal)
CPT/HCPCS: 20610; 77002; J7318; Q9966

== ENCOUNTER 2023-10-10 09:52 | Outpatient (OUT) | payer MEDICARE, SELFPAY ==
--- NOTE | 2023-10-10 09:52 | PM.CN ---
Consult Note: HPI Data of Consult Patient: known to practice within the last 3 years Requesting Physician: Rosina Fleming NP Primary Care Provider: SANGEETHA QUICK Consult Narrative Reason for consult: f/u Narrative: Rach Hernandez a pleasant 77 year old female presents for evaluation and management of chronic bilateral knee pain/OA. Patient has a hx of left knee OA that responds well to HUBER injections. Tolerating tylenol arthritis and tramadol 50mg BID PRN well without side effects, finds benefit. Recently underwent left knee durolane injection with 30% improvement ongoing. cc:: CC: Rosina Fleming NP Review of Systems ROS Status of ROS 10 or more systems reviewed and unremarkable except as noted in history and below Musculoskeletal Reports: back pain and joint pain Meds Home Medications and Allergies Home Medications ?Medication ?Instructions ?Recorded ?Confirmed ?Type acetaminophen 325 mg tablet (Aphen) 650 mg PO Q6H PRN pain 10/10/22 10/01/23 History levothyroxine 50 mcg capsule 50 mcg PO DAILY 10/11/22 10/01/23 History ropinirole 0.25 mg tablet 0.25 mg PO DAILY 10/11/22 10/01/23 History rosuvastatin 10 mg tablet 10 mg PO DAILY 10/11/22 10/01/23 History tizanidine 2 mg tablet 2 mg PO BID PRN spasm 10/11/22 10/01/23 History tramadol 50 mg tablet 50 mg PO BID 10/11/22 10/01/23 History zoledronic acid 5 mg/100 mL in ea IV .1 YEAR 01/10/23 History mannitol 5 %-water intravenous piggybck (Reclast) cholecalciferol (vitamin D3) 1,250 50,000 unit PO QWEEK 09/11/23 10/01/23 History mcg (50,000 unit) capsule ergocalciferol (vitamin D2) 1,250 1,250 mcg PO QWEEK 09/11/23 10/01/23 History mcg (50,000 unit) capsule estradiol 0.01% (0.1 mg/gram) 0.25 appful vaginal DAILY PRN 09/11/23 10/01/23 History vaginal cream itching Allergies Allergy/AdvReac Type Severity Reaction Status Date / Time aspirin Allergy Verified 10/01/23 08:26 codeine Allergy Verified 10/01/23 08:26 iodine Allergy Verified 10/01/23 08:26 latex Allergy Verified 10/01/23 08:26 pregabalin [From Lyrica] Allergy Verified 10/01/23 08:26 Sulfa (Sulfonamide Allergy Verified 10/01/23 08:26 Antibiotics) Exam Constitutional Documenting provider has reviewed patient's vital signs: yes Common normals: no apparent distress, oriented x3, healthy appearing, alert and well nourished General appearance: cooperative HENMT Common normals: normocephalic, hearing grossly normal bilaterally and moist oral mucous membranes Head and scalp: normocephalic Eye Common normals: PERRL Pupil: PERRL Neck & C-Spine Common normals: full ROM General: normal visual inspection Other: pain with ROM positive spurlings left intermittent radiculopathy to left arm Chest Common normals: inspection of chest normal Respiratory Common normals: normal respiratory effort, no retractions and no use of accessory muscles Back & Pelvis Thoracic spine/upper back: pain with ROM Lumbar spine/lower back: pain with ROM, paraspinal muscle spasm Lumbar paraspinal muscle spasm: right and straight leg raise negative bilaterally Sacroiliac joints: SI joint(s) abnormal Other: pain with jose l, FADER, [place]. Right>L Extremity Common normals: normal to inspection and full ROM Right lower extremity: knee joint Left lower extremity: knee joint Left knee: inspection (mild edema noted, no discoloration or redness), palpation (tenderness most significant over MCL and meniscus), ROM (limited due to pain) and special tests Other: moderate crepitus to bilateral knees, pain with medial and lateral stress testing, enlarged diameters, mild edema to bilateral knees. no instability noted Neuro Common normals: oriented x3, CN's II-XII intact bilaterally, moves all extremities, no focal motor deficits, no sensory deficits noted and deep tendon reflexes 2+ bilaterally Sensorium/orientation: alert Motor exam: strength 5/5 throughout and no movement abnormalities noted Psych Common normals: mental status grossly normal, thought process normal, cooperative, affect normal, speech normal and activity/motor behavior normal Speech: normal speech Thought process: normal thought process Results Additional Findings Additional findings: If on a controlled substance or opioids, I have checked an OARRS report on this patient and there are no aberrancies noted in the prescribing history.??If on a controlled substance or opioid a drug screen was completed and reviewed within the last year, and if there has not been a drug screen completed we ordered one today to monitor higher risk, state monitored pain medication use. As part of providing excellent, safe, comprehensive care, the following was completed at our patient's visit: 1. A medication reconciliation and review to ensure accurate knowledge of current/active medications, including asking our patients to inform us about any [id number] medications or herbal remedies/nutritional supplements/alternative remedies. 2. A review to specifically ensure our patients have had annual screening for screening for depression, screening for tobacco use, and screening for unhealthy alcohol use. For concerning screenings had a discussion with the patient, provided patient education, and recommended follow-up with primary care provider when appropriate. If patient noted with a risk of falling, they received education on strength, gait, and balance training to prevent future risk of falling. Assessment and Plan Assessment and Plan (1) Osteoarthritis of right knee: (2) Osteoarthritis of left knee: (3) Myofascial pain: (4) Lumbar spondylosis: (5) Chronic pain syndrome: (6) Chronic prescription opiate use: Assessment and Plan: I feel these medications are improving the patient's quality of life and allow them to tolerate activities of daily living as well as participate in recreational activity.? The patient does not report intolerable side effects. The patient is NOT opioid naive and non-pharmacologic and non-opioid treatment has failed to significantly relieve the patient's pain and improve functionality. The patient has a diagnosis that is related to a somatic or visceral pain etiology. ? ?? I reviewed with the patient the potential risks and side effects with the use of? opioid medications including but not limited to respiratory depression,? sedation, and even . I verified the patient has access to naloxone should? these effects occur. I advised the patient to avoid the use of any other? sedation substances including alcohol, THC, and benzodiazepines while? taking opioid medications due to the risk of compounding side effects and? detrimental outcomes. I reviewed the [employer] TECHNICIAN, pain treatment agreement, urine? drug screen, and opioid start talking forms. The patient was advised to let? their family know they had Naloxone in case they would need to administer? the medication.? ?? A drug screen was completed within the last year, and no aberrancies were noted regarding their use of controlled substances. The patient understands they are subject to the terms and conditions of the pain contract that they have signed. ? ?? I have checked an OARRS report on this patient today and there are no aberrancies noted in the prescribing history.? Plan right knee HUBER based injection under fluoroscopy with Dr Baker, risks vs benefits reviewed refill and continue tramadol 50mg BID PRN moderate to severe pain, patient utilizes appropriately reports significant improvement in pain and function and denies side effects. She has been trying to decrease to once daily as needed consider genicular nerve block working towards RFA if left knee pain does not improve, discussed today f/u after right knee injection
--- OUTSIDE RECORDS SUMMARY | 2023-10-10 10:01 | XMS_ITS | CCD ---
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 Name Role Phone LAKSHMIPATHY, NARENDRANATH Attending Unava ilable LAKSHMIPATHY, NARENDRANATH Admitting Unava ilable YUHAS, DR VIVAS Primary Care Unavailable LAKSHMIPATHY, NARENDOMAR Consulting Unava ilable FRANCI .MIREYA Consulting Unavailable [...] Unavailable LAKSHMIPATHY, TOÑA Attending Unava ilable LAKSHMIPATHY, NARENDRANATH Admitting Unava ilable YUHAS, DR VIVAS Primary Care Unavailable LAKSHMIPATHY, NARENDOMAR Admitting Unava ilable YUHAS, DR VIAVS Primary Care Unavailable LAKSHMIPATHY, TOÑA Attending Unava ilable BARRAZA ., DR YINKA Alford Attending Unavailable BARRAZA ., DR YINKA Al[place] Admitting Unavailable YUAN ., MARIELY Consulting Unavailable YUHAS, DR VIVAS Primary Care Unavailable LAKSHMIPATHY, NARENDOMAR Attending Unava ilable LAKSHMIPATHY, NARENDRANATH Admitting Unava [...] Unavailable LAKSHMIPATHY, NARENDRANATH Attending Unava ilable LAKSHMIPATHY, NARFAUSTINO Admitting Unava ilable YUHAS, DR VIVAS Primary Care Unavailable LAKSHMIPATHY, NARENDRANATH Consulting Unava ilable SHANNEN BLAIR Consulting Unavailable LAKSHMIPATHY, NARENDBHUMIATH Attending Unava ilable YUHAS, DR VIVAS Primary Care Unavailable LAKSHMIPATHY, NARENDRANATH Admitting Unava ilable LAKSHMIPATHY, NARENDRANATH Consulting Unava ilable Yuhas Sangeetha [place] Primary Care Provider [phone] SANGEETHA QUICK L Referring Unavailable YUHAS, SANGEETHA L Primary [...] Unavailable YUHAS, SANGEETHA L Primary Care Unavailable KATHRYN CAGLE Attending Unavailable Allergies Allergy Classification Reported Allergen(s) Allergy Type Date of Onset Reaction(s) Facility (1 source) Aspirin Drug Allergy [facility] Repository (4 sources) Codeine; Translations: [CODEINE] Drug Allergy 8 [facility]ository (1 source) Etodolac Drug Allergy [facility] (4 sources) Iodine; Translations: [IODINE] Drug Allergy 8 [facility] (4 sources) Latex; Translations: [LATEX] Drug allergy (disorder) 3 [facility] (1 source) pregabalin Drug Allergy [facility] (1 source) Sulfonamides (Antibiotic) Drug allergy (disorder) [facility] Repository (6 sources) Aspirin; Translations: [ASPIRIN, BUFFERED] Drug Allergy 8 [facility] (3 sources) Codeine Drug Allergy 8 Rash [facility] (6 sources) Etodolac; Translations: [ETODOLAC] Drug Allergy 3 [facility] (3 sources) Iodine Drug Allergy 8 Anaphylaxis [facility] (3 sources) Latex Propensity to adverse reactions to drug 3 [facility] (6 sources) Penicillins; Translations: [PENICILLINS] Propensity to adverse reactions to drug 8 [facility] (6 sources) Sulfonamides (Antibiotic); Translations: [SULFA (SULFONAMIDE ANTIBIOTICS)] Propensity to adverse reactions to drug 8 Rash [facility] Medications Current Medications Medication Drug Class(es) Dates [...] Alejandro MD on 06/27/2023 1:51 PM Normal [facility] COMPREHENSIVE METABOLIC PANE Ulices 05-30-2023 Albumin [Mass/Vol] 4.3 g/dL Normal 3.2-5.3 [facility] Comment on above: Performed By: #### C KIMBERLY, 34297-1, THYR #### [facility] ([id number]) [address], [address] [place] [address] ALP [Catalytic activity/Vol] 63 U/L Normal 39-130 [facility] Comment on above: Performed By: #### C KIMBERLY, 19409-1, THYR #### [facility] ([id number]) [address], [address] [place] [address] ALT [Catalytic activity/Vol] 15 U/L Normal 0-31 [facility] Comment on above: Performed By: #### C KIMBERLY, 84578-3, THYR #### [facility] ([id number]) [address], [address] [place] [address] Anion gap [Moles/Vol] 6 mmol/L Normal 5-15 [facility] Comment on above: Performed By: #### Renee HARRIS, 14221-7, THYR #### [facility] ([id number]) [address], [address] [place] [address] AST [Catalytic activity/Vol] 15 U/L Normal 0-41 [facility] Comment on above: Performed By: #### Renee HARRIS, 07049-2, THYR #### [facility] ([id number]) [address], [address] [place] [address] Bilirubin [Mass/Vol] 0.3 mg/dL Normal 0.3-1.2 [facility] Comment on above: Performed By: #### C KIMBERLY, 32865-3, THYR #### [facility] ([id number]) [address], [address] [place] [address] Calcium [Mass/Vol] 9.1 mg/dL Normal 8.5-10.5 [facility] Comment on above: Performed By: #### Renee HARRIS, 53255-7, THYR #### [facility] ([id number]) [address], [address] [place] [address] Chloride [Moles/Vol] 105 mmol/L Normal 98-109 [facility] Comment on above: Performed By: #### C KIMBERLY, 41163-6, THYR #### [facility] ([id number]) [address], [address] [place] [address] CO2 [Moles/Vol] 31 mmol/L Normal 22-32 [facility] Comment on above: Performed By: #### C KIMBERLY, 69829-9, THYR #### [facility] ([id number]) [address], [address] [place] [address] Creatinine [Mass/Vol] 0.65 mg/dL Normal 0.40-1.00 [facility] Comment on above: Result Comment: METH OD TRACEABLE TO IDMS STANDARD Performed By: #### C KIMBERLY, 16512-3, THYR #### [facility] ([id number]) [address], [address] [place] [address] eGFR (CKD-EPI) NON-RACE DEPENDENT >90 Normal >59 [facility] Comment on above: Result Comment: Reported eGFR is based on the CKD-EPI 2020 equation that does not use a race coefficient. Performed By: #### C KIMBERLY, 64410-7, THYR #### [facility] ([id number]) [address], [address] [place] [address] Glucose [Mass/Vol] 101 mg/dL High 65-99 [facility] Comment on above: Performed By: #### C KIMBERLY, 09900-3, THYR #### [facility] ([id number]) [address], [address] [place] [address] Potassium [Moles/Vol] 4.4 mmol/L Normal 3.5-5.0 [facility] Comment on above: Performed By: #### C KIMBERLY, 71119-8, THYR #### [facility] ([id number]) [address], [address] [place] [address] Protein [Mass/Vol] 6.9 g/dL Normal 6.0-8.0 [facility] Comment on above: Performed By: #### C KIMBERLY, 28919-1, THYR #### [facility] ([id number]) [address], [address] [place] [address] Sodium [Moles/Vol] 142 mmol/L Normal 134-146 [facility] Comment on above: Performed By: #### C KIMBERLY, 86071-6, THYR #### [facility] ([id number]) [address], [address] [place] [address] Urea nitrogen [Mass/Vol] 18 mg/dL Normal 5-27 [facility] Comment on above: Performed By: #### Renee HARRIS, 31092-1, THYR #### [facility] ([id number]) [address], [address] [place] [address] Comprehensive metabolic pane ulices 05-30-2023 Albumin [Mass/Vol] 4.3 g/dL 3.2 - 5.3 g/dL [facility] ALP [Catalytic activity/Vol] 63 U/L 39 - 130 U/L [facility] ALT No additional P-5'-P [Catalytic activity/Vol] 15 U/L 0 - 31 U/L [facility] Anion gap [Moles/Vol] 6 mmol/L 5 - 15 mmol/L [facility] AST [Catalytic activity/Vol] 15 U/L 0 - 41 U/L [facility] Bilirubin [Mass/Vol] 0.3 mg/dL 0.3 - 1.2 mg/dL [facility] Calcium [Mass/Vol] 9.1 mg/dL 8.5 - 10. 5 mg/dL [facility] Chloride [Moles/Vol] 105 mmol/L 98 - 109 mmol/L [facility] CO2 [Moles/Vol] 31 mmol/L 22 - 32 mmol/L [facility] Creatinine [Mass/Vol] 0.65 mg/dL 0.40 - 1.00 mg/dL [facility] Comment on above: METHOD TRACEABLE TO [facility] STANDARD eGFR (CKD-EPI)non-race dependent - PINF [facility] Comment on above: Reported eGFR is based on the CKD-EPI 2020 equation that does not use a race coefficient. Glucose [Mass/Vol] 101 mg/dL High 65 - 99 mg/dL [facility] Potassium [Moles/Vol] 4.4 mmol/L 3.5 - 5.0 mmol/L [facility] Protein [Mass/Vol] 6.9 g/dL 6.0 - 8.0 g/dL [facility] Sodium [Moles/Vol] 142 mmol/L 134 - 146 mmol/L [facility] Urea nitrogen [Mass/Vol] 18 mg/dL 5 - 27 mg/dL [facility] Lipid 1996 panelon Cholesterol [Mass/Vol] 140 mg/dL Low 150 - 200 mg/dL [facility] Cholesterol in HDL [Mass/Vol] 55 mg/dL 39 - PINF mg/dL [facility] Comment on above: HDL <40 mg/dL - High Risk HDL > or = 40mg/dL- Desirable HDL >60 mg/dL - Negative Risk Cholesterol in LDL [Mass/Vol] 69 mg/dL NINF - 130 mg/dL [facility] Comment on above: LDL <100 mg/dL - Desirable LDL >160 mg/dL - High Risk Cholesterol in VLDL [Mass/Vol] 16 mg/dL 0 - 30 mg/dL [facility] Cholesterol.total/C holesterol in HDL [Mass ratio] 2.5 {ratio} 1.0 - 5.0 [facility] Triglyceride [Mass/Vol] 82 mg/dL 27 - 150 mg/dL [facility] Cholesterol [Mass/Vol] 140 mg/dL Low 150-200 [facility] Comment on above: Performed By: #### Renee HARRIS, 79005-7, THYR #### [facility] ([id number]) [address], [address] [place] [address] Cholesterol in HDL [Mass/Vol] 55 mg/dL Normal >39 [facility] Comment on above: Result Comment: HDL <40 mg/dL - High Risk HDL > or = 40mg/dL- Desirable HDL >60 mg/dL - Negative Risk Performed By: #### Renee HARRIS, 97825-5, THYR #### [facility] ([id number]) [address], [address] [place] [address] Cholesterol in LDL [Mass/Vol] 69 mg/dL Normal <130 [facility] Comment on above: Result Comment: LDL <100 mg/dL - Desirable LDL >160 mg/dL - High Risk Performed By: #### Renee HARRIS, 16547-7, THYR #### [facility] ([id number]) [address], [address] [place] [address] Cholesterol in VLDL [Mass/Vol] 16 mg/dL Normal 0-30 [facility] Comment on above: Performed By: #### Renee HARRIS, 22795-7, THYR #### [facility] ([id number]) [address], [address] [place] [address] CHOLESTEROL:HDL 2.5 Normal 1.0-5.0 [facility] Comment on above: Performed By: #### Renee HARRIS, 88400-0, THYR #### [facility] ([id number]) [address], [address] [place] [address] Triglyceride [Mass/Vol] 82 mg/dL Normal 27-150 [facility] Comment on above: Performed By: #### Renee HARRIS, 23538-7, THYR #### [facility] ([id number]) [address], [address] [place] [address] No Panel Informationon 05-30 Interpretation and review of laboratory results Abnormal [facility] THYROID PROFILEon 05-30-2023 Free T4 [Mass/Vol] 0.92 ng/dL Normal 0.61-1.60 [facility] Comment on above: Performed By: #### Renee HARRIS, 14381-4, THYR #### [facility] ([id number]) [address], [address] [place] [address] TSH 0.95 uIU/mL Normal 0.49-4.67 [facility] Comment on above: Performed By: #### Renee HARRIS, 73949-7, THYR #### [facility] ([id number]) [address], [address] [place] [address] Thyroid profile includes TSH FT4on 05-30-2023 Free T4 [Mass/Vol] 0.92 ng/dL 0.61 - 1. 60 ng/dL [facility] TSH Qn 0.95 m[IU]/L [facility] MRI SHOULDER LT WO CONon MRI SHOULDER [...] by: RONALDO RANGEL Date: 2022-05-18 09:45 Normal [facility] METABOLIC PANE [facility] 08-29-2021 Albumin [Mass/Vol] 4.0 g/dL Normal 3.6-5.1 [facility] Comment on above: Performed By: #### 7 484, 519, 57857 #### [facility] [place] [address] Dish Person: Finn Akins MD Albumin/Globulin [Mass ratio] 1.9 {ratio} Normal 1.0-2.5 [facility] Comment on above: Performed By: #### 7 273, 286, 69470 #### [facility] [address] Dish Person: Finn Akins MD ALP [Catalytic activity/Vol] 56 U/L Normal 37-153 [facility] Comment on above: Performed By: #### 7 438, 101, 83950 #### [facility] [address], [address] [place], [place] [address] Dish Person: Finn Akins MD ALT [Catalytic activity/Vol] 18 U/L Normal 6-29 [facility] Comment on above: Performed By: #### 7 600, 927, 12722 #### [facility] of [place] [address] Dish Person: Finn Akins MD AST [Catalytic activity/Vol] 18 U/L Normal 10-35 [facility] Comment on above: Performed By: #### 7 600, 927, 12723 #### [facility] [place] [address] Dish Person: Finn Akins MD Bilirubin [Mass/Vol] 0.4 mg/dL Normal 0.2-1.2 [facility] Comment on above: Performed By: #### 7 600, 927, 26409 #### [facility] [place] [address] Dish Person: Finn Akins MD BUN/CREATININE RATIO NOT APPLICABLE Normal 6-22 [facility] Comment on above: Performed By: #### 7 600, 927, 72432 #### [facility] [place] [address] Dish Person: Finn Akins MD Calcium [Mass/Vol] 8.8 mg/dL Normal 8.6-10.4 [facility] Comment on above: Performed By: #### 7 600, 927, 57778 #### [facility] [place] [address] Dish Person: Finn Akins MD Chloride [Moles/Vol] 106 mmol/L Normal 98-110 [facility] Comment on above: Performed By: #### 7 600, 927, 94511 #### [facility] [place] [address] Dish Person: Finn Akins MD CO2 [Moles/Vol] 30 mmol/L Normal 20-32 [facility] Comment on above: Performed By: #### 7 600, 927, 83029 #### [facility] of [address] Dish Person: Finn Akins MD Creatinine [Mass/Vol] 0.67 mg/dL Normal 0.60-0.93 [facility] Comment on above: Result Comment: For patients >49 years of age, the reference limit for Creatinine is approximately 13% higher for people identified as -Northern Irish. Performed By: #### 7 600, 927, 83881 #### [facility] [place] [address] Dish Person: Finn Akins MD eGFR NON-AFR. PARAGUAYAN 87 mL/min/1.73m2 Normal > OR = 60 [facility] Comment on above: Performed By: #### 7 600, 927, 20545 #### [facility] [place] [address] Dish Person: Finn Akins MD GFR/1.73 sq M.predicted among blacks MDRD (S/P/Bld) [Vol rate/Area] 101 mL/min/{1.73_m2} Normal > OR = 60 [facility] Comment on above: Performed By: #### 7 600, 927, 56060 #### [facility] [place] [address] Dish Person: Finn Akins MD Globulin (S) [Mass/Vol] 2.1 g/dL Normal 1.9-3.7 [facility] Comment on above: Performed By: #### 7 600, 927, 91197 #### [facility] [place] [address] Dish Person: Finn Akins MD Glucose [Mass/Vol] 96 mg/dL Normal 65-99 [facility] Comment on above: Result Comment: Fasting reference interval Performed By: #### 7 600, 927, 30794 #### [facility] [place] [address] Dish Person: Finn Akins MD Potassium [Moles/Vol] 3.9 mmol/L Normal 3.5-5.3 [facility] Comment on above: Performed By: #### 7 600, 927, 94482 #### [facility] of [address], [address] [place] [address] Dish Person: Finn Akins MD Protein [Mass/Vol] 6.1 g/dL Normal 6.1-8.1 [facility] Comment on above: Performed By: #### 7 600, 927, 64998 #### [facility] of [address], [address] [place] [address] Dish Person: Finn Akins MD Sodium [Moles/Vol] 143 mmol/L Normal 135-146 [facility] Comment on above: Performed By: #### 7 600, 927, 83448 #### [facility] [place] [address] Dish Person: Finn Akins MD Urea nitrogen [Mass/Vol] 17 mg/dL Normal 7-25 [facility] Comment on above: Performed By: #### 7 600, 927, 35617 #### [facility] [place] [address] Dish Person: Finn Akins MD LIPID PANEL, [address] Cholesterol [Mass/Vol] 126 mg/dL Normal <200 [facility] Comment on above: Order Comment: FASTI NG:YES FASTING: YES Performed By: #### 7 600, 927, 87118 #### [facility] of [place] [address] Dish Person: Finn Akins MD Cholesterol in HDL [Mass/Vol] 46 mg/dL Low > OR = 50 [facility] Comment on above: Order Comment: FASTI NG:YES FASTING: YES Performed By: #### 7 600, 927, 34301 #### [facility] [place] [address] Dish Person: Finn Akins MD Cholesterol in LDL [Mass/Vol] [...] LDL-C. Aguilar HOLCOMB et al. MCKAY. 2013;310(19): 4838-0933 (http://education.[employer]/faq/EPB093) Performed By: #### 7 600, 927, 97698 #### [facility] [address], [address] [place] [address] Dish Person: Finn Akins MD Cholesterol.total/C holesterol in HDL [Mass ratio] 2.7 {ratio} Normal <5.0 [facility] Comment on above: Order Comment: FASTI NG:YES FASTING: YES Performed By: #### 7 600, 927, 38472 #### [facility] [address], [address] [place] [address] Dish Person: Finn Akins MD NON HDL CHOLESTEROL 80 mg/dL (calc) Normal <130 [facility] Comment on above: Order Comment: FASTI NG:YES FASTING: YES Result Comment: For patients with diabetes plus 1 major ASCVD risk factor, treating to a non-HDL-C goal of <100 mg/dL (LDL-C of <70 mg/dL) is considered a therapeutic option. Performed By: #### 7 600, 927, 97833 #### [facility] [place] [address] Dish Person: Finn Akins MD Triglyceride [Mass/Vol] 86 mg/dL Normal <150 [facility] Comment on above: Order Comment: FASTI NG:YES FASTING: YES Performed By: #### 7 600, 927, 98541 #### [facility] [place] [address] Dish Person: Finn Akins MD VITAMIN B12on 08-29-2021 Cobalamin (Vitamin B12) [Mass/Vol] 184 pg/mL Low 200-1100 [facility] Comment on above: Performed By: #### 7 600, 927, 31052 #### [facility] [address], [address] [place] [address] Dish Person: Finn Akins MD BASIC METABOLIC PANELon Calcium [Mass/Vol] 9.2 mg/dL Normal 8.6-10.4 [facility] Comment on above: Performed By: #### 9 , 18362, 13191 #### [facility] [address], [address] [place] [address] Dish Person: Finn Akins MD Chloride [Moles/Vol] 102 mmol/L Normal 98-110 [facility] Comment on above: Performed By: #### 9 27, 36818, 34469 #### [facility] [address], [address] [place] [address] Dish Person: Finn Akins MD CO2 [Moles/Vol] 28 mmol/L Normal 20-32 [facility] Comment on above: Performed By: #### 9 , 23874, 95036 #### [facility] [address], [address] [place] [address] Dish Person: Finn Akins MD Creatinine [Mass/Vol] 0.56 mg/dL Low 0.60-0.93 [facility] Comment on above: Result Comment: For patients >49 years of age, the reference limit for Creatinine is approximately 13% higher for people identified as -Northern Irish. Performed By: #### 9 27, 68751, 62425 #### [facility] [address], [address] [place] [address] Dish Person: Finn Akins MD eGFR NON-AFR. PARAGUAYAN 93 mL/min/1.73m2 Normal > OR = 60 [facility] Comment on above: Performed By: #### 9 27, 80862, 40273 #### [facility] [address], [address] [place] [address] Dish Person: Finn Akins MD GFR/1.73 sq M.predicted among blacks MDRD (S/P/Bld) [Vol rate/Area] 107 mL/min/{1.73_m2} Normal > OR = 60 [facility] Comment on above: Performed By: #### 9 27, 83848, 31298 #### [facility] [place] [address] Dish Person: Finn Akins MD Glucose [Mass/Vol] 97 mg/dL Normal 65-99 [facility] Comment on above: Result Comment: Fasting reference interval Performed By: #### 9 27, 86259, 06782 #### [facility] [address], [address] [place] [address] Dish Person: Finn Akins MD Potassium [Moles/Vol] 3.8 mmol/L Normal 3.5-5.3 [facility] Comment on above: Performed By: #### 9 , 43730, 26609 #### [facility] [place] [address] Dish Person: Finn Akins MD Sodium [Moles/Vol] 140 mmol/L Normal 135-146 [facility] Comment on above: Performed By: #### 9 27, 39628, 02405 #### [facility] [place] [address] Dish Person: Finn Akins MD Urea nitrogen [Mass/Vol] 14 mg/dL Normal 7-25 [facility] Comment on above: Performed By: #### 9 27, 17835, 27655 #### [facility] [place] [address] Dish Person: Finn Akins MD Urea nitrogen/Creatinine [Mass ratio] 25 mg/mg High 6-22 [facility] Comment on above: Performed By: #### 9 , 73482, 48601 #### [facility] [place] [address] Dish Person: Finn Akins MD TSH+FREE T4on 04-19-2021 Free T4 [Mass/Vol] 1.2 ng/dL Normal 0.8-1.8 [facility] Comment on above: Performed By: #### 9 27, 82828, 56940 #### [facility] [address], [address] [place] [address] Dish Person: Finn Akins MD TSH Qn 0.55 m[IU]/L Normal 0.40-4.50 [facility] Comment on above: Performed By: #### 9 27, 54637, 34940 #### [facility] [address], [address] [place] [address] Dish Person: Finn Akins MD VITAMIN B12on 04-19-2021 Cobalamin (Vitamin B12) [Mass/Vol] 133 pg/mL Low 200-1100 [facility] Comment on above: Performed By: #### 9 27, 13032, 24700 #### [facility] [address], [address] [place] [address] Dish Person: Finn Akins MD Vital Signs Date Time Vital Sign Value Performing Clinician Facility 07-01-2023 15:40-0400 Body height 149.9 cm Sangeetha Quick DO Work Phone: [facility] 07-01-2023 15:40-0400 Body mass index (BMI) [Ratio] 31.1 kg/m2 Sangeetha Quick DO Work Phone: [facility] 07-01-2023 15:40-0400 Body temperature 98.2 [degF] Sangeetha Quick DO Work Phone: [facility] 07-01-2023 15:40-0400 Body weight 69.85 kg Sangeetha Quick DO Work Phone: [facility] 07-01-2023 15:40-0400 Diastolic blood pressure 70 mm[Hg] Sangeetha Quick DO Work Phone: [facility] 07-01-2023 15:40-0400 Heart rate 87 /min Sangeetha Quick DO Work Phone: [facility] 07-01-2023 15:40-0400 SaO2% (BldA) [Mass fraction] 99 % Sangeetha Quick DO Work Phone: [facility] 07-01-2023 15:40-0400 Systolic blood pressure 136 mm[Hg] Sangeetha Quick DO Work Phone: [facility] 06-25-2023 11:23-0400 Body height 149.9 cm Sangeetha Quick DO Work Phone: [facility] 06-25-2023 11:23-0400 Body mass index (BMI) [Ratio] 31.06 kg/m2 Sangeetha Quick DO Work Phone: [facility] 06-25-2023 11:23-0400 Body temperature 98.29 [degF] Sangeetha Quick DO Work Phone: [facility] 06-25-2023 11:23-0400 Body weight 69.76 kg Sangeetha Quick DO Work Phone: [facility] 06-25-2023 11:23-0400 Diastolic blood pressure 70 mm[Hg] Sangeetha Quick DO Work Phone: [facility] 06-25-2023 11:23-0400 Heart rate 73 /min Sangeetha Quick DO Work Phone: [facility] [address] 06-25-2023 11:23-0400 SaO2% (BldA) [Mass fraction] 97 % Sangeetha Quick DO Work Phone: [facility] 06-25-2023 11:23-0400 Systolic blood pressure 120 mm[Hg] Sangeetha Quick DO Work Phone: [facility] 05-30-2023 10:29-0500 Body height 149.9 cm Sangeetha Quick DO Work Phone: [facility] 05-30-2023 10:29-0500 Body mass index (BMI) [Ratio] 30.7 kg/m2 Sangeetha Yuhas DO Work Phone: [facility] 05-30-2023 10:29-0500 Body temperature 98.1 [degF] Sangeetha Quick DO Work Phone: [facility] 05-30-2023 10:29-0500 Body weight 68.95 kg Sangeetha Quick DO Work Phone: [facility] 05-30-2023 10:29-0500 Diastolic blood pressure 70 mm[Hg] Sangeetha Quick DO Work Phone: [facility] 05-30-2023 10:29-0500 Heart rate 71 /min Sangeetha Quick DO Work Phone: [facility] [address] 05-30-2023 10:29-0500 SaO2% (BldA) [Mass fraction] 96 % Sangeetha Quick DO Work Phone: [facility] 05-30-2023 10:29-0500 Systolic blood pressure 120 mm[Hg] Sangeetha Quick DO Work Phone: [facility] [address] Encounters Encounter Date Encounter Type Care Provider Facility Start: 09-10-2023 End: 09-10-2023 ambulatory KATHRYN CAGLE Not Available Start: 07-25-2023 End: 07-25-2023 ambulatory [facility] Start: 07-01-2023 End: 07-01-2023 ambulatory [facility] Start: 07-01-2023 End: 07-01-2023 Office outpatient visit 25 minutes Sangeetha Quick DO Work Phone: [facility] Internal [facility] - Family Medicine Comment on above: 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, bilateral (Primary Dx); Osteoarthritis of left shoulder, unspecified osteoarthritis type; Immunization due Start: 06-27-2023 End: 06-28-2023 ambulatory [facility] Start: 06-25-2023 End: 06-25-2023 ambulatory [facility] Start: 06-25-2023 End: 06-25-2023 Office outpatient visit 25 minutes Sangeetha Quick DO Work Phone: [facility] - Family Medicine Comment on above: Localized osteoarthr itis of left knee (Primary Dx) Start: 05-30-2023 End: 05-31-2023 ambulatory SANGEETHA QUICK [facility] Start: 05-30-2023 End: 05-30-2023 ambulatory [facility] Alek [facility] Start: 05-30-2023 End: 05-30-2023 Office outpatient visit 25 minutes Sangeetha Quick DO Work Phone: [facility] Internal Medicine - Family Medicine [...] Adult BMI Screening Adult BMI Screen ing [facility] Start: 06-30-2024 Depression Screening Depression Scre ening [facility] Start: 06-30-2024 Fall Risk Screening Fall Risk Screen ing [facility] Start: 06-30-2024 Tobacco Screening Tobacco Screening [facility] Start: 06-24-2024 Adult BMI Screening Adult BMI Screen ing [facility] Start: 06-24-2024 Depression Screening Depression Scre ening [facility] Start: 06-24-2024 Fall Risk Screening Fall Risk Screen ing [facility] Start: 06-24-2024 Tobacco Screening Tobacco Screening [facility] Start: 05-30-2024 Adult BMI Screening Adult BMI Screen ing [facility] Start: 05-30-2024 Depression Screening Depression Scre ening [facility] Start: 05-30-2024 Fall Risk Screening Fall Risk Screen ing [facility] Start: 05-30-2024 Tobacco Screening Tobacco Screening [facility] Start: 05-21-2024 DTaP,Tdap and Td Vaccines (2 - Td or Tdap) DTaP,Tdap and Td Vaccines (2 - Td or Tdap) [facility] Start: 12-03-2023 End: 12-03-2023 Patient encounter procedure 12/03/2023 2:00 PM EDT Office Visit [facility] - Family Medicine [address] [place] [address] [facility] - [facility] Start: 11-28-2023 Medicare Annual Well ness Visit Medicare Annual Wellness Visit [facility] Start: 07-14-2023 Influenza vaccination Influenza Vacc ine [facility] Comment on above: Postponed from 12/14 (Vaccine Not Available) Start: 06-25-2023 End: 06-24-2024 XR Knee - left 3 Views X-ray knee left 3 views Imaging Routine Localized osteoarthritis of left knee Expected: 06/25/2023, Expires: 06/24/2024 [facility] Work Phone: Comment on above: Expected: 06/25/2023 , Expires: 06/24/2024 Start: 12-14-2022 COVID-19 Vaccine ( season) COVID-19 Vaccine ( season) [facility] Start: 12-14-2022 Influenza vaccination Influenza Vacc ine [facility] Start: 12-20-1997 Administration of varicella zoster vaccine Zoster (Shingles) Vaccine (1 of 2) [facility] Start: 12-20-1965 Adult BMI Follow Up Plan Adult BMI F ollow Up Plan [facility] Immunizations Immunization Date Immunization Notes Care Provider Dima landon 04-24-2017 Influenza, injectabl e, Madin Shirley Canine Kidney, preservative free, quadrivalent Sangeetha Quick DO Work Phone: [facility] 04-24-2017 influenza virus vacc ine, unspecified formulation Sangeetha Quick DO Work Phone: [facility] 03-15-2016 pneumococcal polysaccharide vaccine, 23 valent Sangeetha Quick DO Work Phone: [facility] 01-11-2016 influenza, seasonal, injectable, preservative free Sangeetha Quick DO Work Phone: [facility] 01-05-2015 influenza, seasonal, injectable, preservative free Sangeetha Quick DO Work Phone: [facility] 01-05-2015 pneumococcal conjuga te vaccine, 13 valent Sangeetha Quick DO Work Phone: [facility] 05-21-2014 pneumococcal polysaccharide vaccine, 23 valent Sangeetha Quick DO Work Phone: [facility] 05-21-2014 tetanus toxoid, redu mary diphtheria toxoid, and acellular pertussis vaccine, adsorbed Sangeetha Quick DO Work Phone: [facility] Payers Date Payer Category Payer Private Health Insurance [employer] [id number] 2021-Present [phone] [address] [address] [place] [address] [id number] 2010 Medicare MEDICARE MEDICAR E PART A & B [id number] 2010-Present [phone] [address] [place] [address] [id number] 1959 Medicare [id number] 1959 Private Health Insurance [id number] 1947 Unknown [id number] 2.16.840.1.427139.3.579 .2.593 1947 Unknown [id number] 2.16.840.1.659219.3.579 .2.593 1947 Unknown [id number] 2.16.840.1.625726.3.579 .2.593 1947 Unknown [id number] 2.16.840.1.011006.3.579 .2.593 1947 Unknown [id number] 2.16.840.1.282005.3.579 .2.593 1947 Unknown [id number] 2.16.840.1.103917.3.579 .2.593 1947 Unknown [id number] 2.16.840.1.640457.3.579 .2.593 1947 Unknown [id number] 2.16.840.1.972208.3.579 .2.593 1947 Unknown [id number] 2.16840.1.357226.3.579 .2.593 1947 Unknown [id number] 2.16.840.1.384163.3.579 .2.593 1947 Unknown [id number] 2.16840.1.264391.3.579 .2.593 1947 Unknown [id number] 2.16840.1.323385.3.579 .2.593 1947 Unknown [id number] 2.840.1.434914.3.579 .2.593 1947 Unknown [id number] 2.840.1.717492.3.579 .2.593 1947 Unknown [id number] 2.840.1.971692.3.579 .2.593 1947 Unknown [id number] 2.840.1.801185.3.579 .2.1286 1947 Unknown [id number] 2.840.1.323179.3.579 .2.128 1947 Unknown [id number] 2.16840.1.207893.3.579 .2.128 1947 Unknown [id number] 2.16840.1.071030.3.579 .2.128 1947 Unknown [id number] 2.16840.1.988190.3.579 .2.128 1947 Unknown [id number] 2.16840.1.124508.3.579 .2.128 1947 Unknown [id number] 2.16840.1.857564.3.579 .2.1259 Social History Date Type Detail Facility [facility]: [facility] Start: 05-14-2022 Tobacco use and exposure Smoke less tobacco non-user [facility] Start: 05-30-2023 End: 07-01-2023 Alcohol intake Current non-drinker of alcohol (finding) [facility] Start: 11-27-2022 End: 07-01-2023 History of Social function [facility] Start: 11-27-2022 End: 07-01-2023 Social connection and isolation panel [facility] Do you belong to any clubs or organizations such as baptism groups, unions, fraternal or athletic groups, or school groups? Yes [facility] Are you now , , , , never or living with a partner? [facility] How often to you hav e a drink containing alcohol? Never [facility] How many standard dr inks containing alcohol do you have on a typical day? Patient does not drink [facility] How hard is it for y ou to pay for the very basics like food, housing, medical care, and heating Hard [facility] Do you feel stress - tense, restless, nervous, or anxious, or unable to sleep at night because your mind is troubled all the time - these days [OSQ] Very much [facility] Start: 1945 Sex Assigned At Not on file P [facility] Clinical Notes 09-07-2021 to 07-01-2023 Sangeetha Quick, DO - 07/01/2023 3:45 PM Denise Quick, DO - 06/25/2023 11:15 AM Denise Quick, [...] Testing No results found. Sangeetha Quick DO., [facility] Office: [phone] documented in this encounter [facility] History of Present illness Narrative IM [...] ml/min/1.73sq.m Final Other Testing No results found. Sanegetha Quick DO., [facility] Office: [phone] documented in this encounter [facility] 05-30-2023 History of Present illness Narrative IM PROGRESS NOTE Patient - Rach Munroe Age - 77 y[facility] 1945 [id number] ASSESS[facility] & PLAN 1. Hypothyroidism, unspecified type [...] moved into a [facility] a [facility], and a son was found at home. [...] Testing No results found. Sangeetha Quick DO., [facility] Office: [phone] documented in this encounter [facility] 07-19-2022 Note CONSULTATION CONSULTATION DATE: 07/19/2022 TO: [...] our patients to inform us about any [id number] medications or herbal remedies/nutritional supplements/alternative remedies. 2. [...] options with their primary care provider. [facility] 04-26-2022 Note CONSULTATION CONSULTATION DATE: 04/26/2022 HISTORY [...] three months' time unless otherwise indicated. [facility] 03-27-2022 Note CONSULTATION CONSULTATION DATE: 03/27/2022 CHIEF [...] to proceed. CC: Sangeetha Quick D.O. [facility] 02-08-2022 Note CONSULTATION CONSULTATION DATE: 02/08/2022 This [...] The patient agrees with this plan. [facility] 01-11-2022 Note CONSULTATION CONSULTATION DATE: 01/11/2022 HISTORY [...] Patient would like to move forward. [facility] 12-14-2021 Note CONSULTATION PROCEDURE DATE: 12/14/2021 PREOPERATIVE [...] be followed up in the office. [facility] 12-14-2021 Note CONSULTATION CONSULTATION DATE: 12/14/2021 HISTORY [...] well, which she does consent to. [facility] 09-07-2021 Note CONSULTATION CONSULTATION DATE: 09/07/2021 HISTORY [...] in the fall. She was referred to [facility] Neurosurgery and is planning to have surgery in the fall following harvest season. 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 Patient feels that she can make it through the summer with a combination of her medication and occasional trigger point injections. 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 She uses heat [...] in three months' time, unless otherwise indicated. IF Signed and Approved by: MARIELY YUAN . 09/14/2021 16:04:00 [facility] Evaluation note Diagnosis Hypothyroidism, unspecified type- Primary Cobalamin deficiency Other B-complex deficiencies Hyperlipidemia, unspecified hyperlipidemia type Osteoarthritis of left shoulder, unspecified osteoarthritis type [facility] Diagnosis Localized osteoarthritis of left knee- Primary [facility] Diagnosis Primary osteoarthritis of knees, bilateral- Primary Osteoarthritis of left shoulder, unspecified osteoarthritis type Immunization due documented in this encounter [facility] System[facility]ructionsNot on filedocumented in this encounter [facility] System[facility]ructionsNot on filedocumented in this encounter [facility]* Attachments The following attachments cannot be sent through Care Everywhere. * Osteoarthritis Discharge Instructions (German) [facility] Purpose Family History No Family [...] DATE CREATED AUTHOR AUTHOR'S ORGANIZ ATION 08/29/2022 [facility] DATE CREATED AUTHOR AUTHOR'S ORGANIZ ATION 06/01/2023 [facility] DATE CREATED AUTHOR AUTHOR'S ORGANIZ ATION 06/28/2023 [facility] DATE CREATED AUTHOR AUTHOR'S ORGANIZ ATION 07/26/2023 [facility] DATE CREATED AUTHOR AUTHOR'S RICHMOND ATION 09/10/2023 [facility] EPIC Reason for Visit (unrecogniz ed section and content) Reason Comments Thyroid Problem Hyperlipidemia Reason Comments Knee Pain Left knee Reason Comments lt knee injury, now both hurting Feeling better. 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 [facility] [employer] [facility]. provides no warranty or guarantee of the accuracy or completeness of information in this document.
== END 2023-10-10 09:53 | disposition home or self-care (01) ==
LOC: PM 09:52
PROVIDERS: PCP Internal Medicine; Visit Provider Nurse Practitioner
DX: M17.0 Bilateral primary osteoarthritis of knee (principal); M79.10 Myalgia, unspecified site; M47.816 Spondylosis without myelopathy or radiculopathy, lumbar region; Z79.899 Other long term (current) drug therapy; G89.4 Chronic pain syndrome
CPT/HCPCS: G0463

== ENCOUNTER 2023-10-29 07:40 | Day surgery (SDC) | payer MEDICARE, SELFPAY ==
--- OUTSIDE RECORDS SUMMARY | 2023-10-29 07:43 | XMS_ITS | CCD ---
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 Role Phone LAKSHMIPATHY, NARENDRANATH Attending Unava [...] Primary Care Unavailable BARRAZA ., DR YINKA Alfodr Attending Unavailable YUAN ., MARIELY Consulting Unavailable [...] ilable Yuhas Sangeetha [place] Primary Care Provider [phone] SANGEETHA QUICK L Referring Unavailable YUHAS, SANGEETHA [...] Facility (1 source) Aspirin Drug Allergy [facility] Repository (4 sources) Codeine; Translations: [CODEINE] Drug Allergy 8 [facility] Repository (1 source) Etodolac Drug Allergy [facility] Rep[facility] (4 sources) Iodine; Translations: [IODINE] Drug Allergy 8 [facility] Rep[facility] (4 sources) Latex; Translations: [LATEX] Drug allergy (disorder) 3 [facility] Repository (1 source) pregabalin Drug Allergy [facility] Rep[facility] (1 source) Sulfonamides (Antibiotic) Drug allergy (disorder) [facility] Rep[facility] (6 sources) Aspirin; Translations: [ASPIRIN, BUFFERED] Drug Allergy 8 [facility] (3 sources) Codeine Drug Allergy 8 Rash [facility] (6 sources) Etodolac; Translations: [ETODOLAC] Drug Allergy 3 [facility] (3 sources) Iodine Drug Allergy 8 Anaphylaxis [facility] (3 sources) Latex Propensity to adverse reactions to drug 3 [facility] (6 sources) Penicillins; Translations: [PENICILLINS] Propensity to adverse reactions to drug 8 [facility] (6 sources) Sulfonamides (Antibiotic); Translations: [SULFA (SULFONAMIDE ANTIBIOTICS)] Propensity to adverse reactions to drug 8 Rash [facility] Medications Current Medications Medication Drug [...] Alejandro MD on 06/27/2023 1:51 PM Normal [facility] COMPREHENSIVE METABOLIC PANE Ulices 05-30-2023 Albumin [Mass/Vol] 4.3 g/dL Normal 3.2-5.3 [facility] Comment on above: Performed By: #### C KIMBERLY, 94286-3, THYR #### [facility] ([id number]) [address], [address] [place] [address] ALP [Catalytic activity/Vol] 63 U/L Normal 39-130 [facility] Comment on above: Performed By: #### C KIMBERLY, 98444-7, THYR #### [facility] ([id number]) [address], [address] [place] [address] ALT [Catalytic activity/Vol] 15 U/L Normal 0-31 [facility] Comment on above: Performed By: #### C KIMBERLY, 84752-5, THYR #### [facility] ([id number]) [address], [address] [place] [address] Anion gap [Moles/Vol] 6 mmol/L Normal 5-15 [facility] Comment on above: Performed By: #### Renee HARRIS, 85919-8, THYR #### [facility] ([id number]) [address], [address] [place] [address] AST [Catalytic activity/Vol] 15 U/L Normal 0-41 [facility] Comment on above: Performed By: #### Renee HARRIS, 34457-0, THYR #### [facility] ([id number]) [address], [address] [place] [address] Bilirubin [Mass/Vol] 0.3 mg/dL Normal 0.3-1.2 [facility] Comment on above: Performed By: #### C KIMBERLY, 71286-9, THYR #### [facility] ([id number]) [address], [address] [place] [address] Calcium [Mass/Vol] 9.1 mg/dL Normal 8.5-10.5 [facility] Comment on above: Performed By: #### Renee HARRIS, 07323-7, THYR #### [facility] ([id number]) [address], [address] [place] [address] Chloride [Moles/Vol] 105 mmol/L Normal 98-109 [facility] Comment on above: Performed By: #### C KIMBERLY, 56402-4, THYR #### [facility] ([id number]) [address], [address] [place] [address] CO2 [Moles/Vol] 31 mmol/L Normal 22-32 [facility] Comment on above: Performed By: #### C KIMBERLY, 75330-9, THYR #### [facility] ([id number]) [address] [place] [address] Creatinine [Mass/Vol] 0.65 mg/dL Normal 0.40-1.00 [facility] Comment on above: Result Comment: METH OD TRACEABLE TO IDMS STANDARD Performed By: #### C KIMBERLY, 71840-6, THYR #### [facility] ([id number]) [address] [place] [address] eGFR (CKD-EPI) NON-RACE DEPENDENT >90 Normal >59 [facility] Comment on above: Result Comment: Reported eGFR is based on the CKD-EPI 2020 equation that does not use a race coefficient. Performed By: #### C KIMBERLY, 80739-9, THYR #### [facility] ([id number]) [address], [address] [place] [address] Glucose [Mass/Vol] 101 mg/dL High 65-99 [facility] Comment on above: Performed By: #### C KIMBERLY, 40831-3, THYR #### [facility] ([id number]) [address], [address] [place] [address] Potassium [Moles/Vol] 4.4 mmol/L Normal 3.5-5.0 [facility] Comment on above: Performed By: #### C KIMBERLY, 68235-0, THYR #### [facility] ([id number]) [address], [address] [place] [address] Protein [Mass/Vol] 6.9 g/dL Normal 6.0-8.0 [facility] Comment on above: Performed By: #### C KIMBERYL, 99668-9, THYR #### [facility] ([id number]) [address], [address] [place] [address] Sodium [Moles/Vol] 142 mmol/L Normal 134-146 [facility] Comment on above: Performed By: #### C KIMBERLY, 00436-5, THYR #### [facility] ([id number]) [address], [address] [place] [address] Urea nitrogen [Mass/Vol] 18 mg/dL Normal 5-27 [facility] Comment on above: Performed By: #### Renee HARRIS, 00571-2, THYR #### [facility] ([id number]) [address], [address] [place] [address] Comprehensive metabolic pane ulices 05-30-2023 Albumin [Mass/Vol] 4.3 g/dL 3.2 - 5.3 g/dL [facility] ALP [Catalytic activity/Vol] 63 U/L 39 - 130 U/L [facility] ALT No additional P-5'-P [Catalytic activity/Vol] 15 U/L 0 - 31 U/L [facility] Anion gap [Moles/Vol] 6 mmol/L 5 - 15 mmol/L [facility] AST [Catalytic activity/Vol] 15 U/L 0 - 41 U/L [facility] Bilirubin [Mass/Vol] 0.3 mg/dL 0.3 - 1.2 mg/dL [facility] Calcium [Mass/Vol] 9.1 mg/dL 8.5 - 10. 5 mg/dL [facility] Chloride [Moles/Vol] 105 mmol/L 98 - 109 mmol/L [facility] CO2 [Moles/Vol] 31 mmol/L 22 - 32 mmol/L [facility] Creatinine [Mass/Vol] 0.65 mg/dL 0.40 - 1.00 mg/dL [facility] Comment on above: METHOD TRACEABLE TO [facility] STANDARD eGFR (CKD-EPI)non-race dependent - PINF [facility] Comment on above: Reported eGFR is based on the CKD-EPI 2020 equation that does not use a race coefficient. Glucose [Mass/Vol] 101 mg/dL High 65 - 99 mg/dL [facility] Potassium [Moles/Vol] 4.4 mmol/L 3.5 - 5.0 mmol/L [facility] Protein [Mass/Vol] 6.9 g/dL 6.0 - 8.0 g/dL [facility] Sodium [Moles/Vol] 142 mmol/L 134 - 146 mmol/L [facility] Urea nitrogen [Mass/Vol] 18 mg/dL 5 - 27 mg/dL [facility] Lipid 1996 panelon Cholesterol [Mass/Vol] 140 mg/dL Low 150 - 200 mg/dL [facility] Cholesterol in HDL [Mass/Vol] 55 mg/dL 39 - PINF mg/dL [facility] Comment on above: HDL <40 mg/dL - High Risk HDL > or = 40mg/dL- Desirable HDL >60 mg/dL - Negative Risk Cholesterol in LDL [Mass/Vol] 69 mg/dL NINF - 130 mg/dL [facility] Comment on above: LDL <100 mg/dL - Desirable LDL >160 mg/dL - High Risk Cholesterol in VLDL [Mass/Vol] 16 mg/dL 0 - 30 mg/dL [facility] Cholesterol.total/C holesterol in HDL [Mass ratio] 2.5 {ratio} 1.0 - 5.0 [facility] Triglyceride [Mass/Vol] 82 mg/dL 27 - 150 mg/dL [facility] Cholesterol [Mass/Vol] 140 mg/dL Low 150-200 [facility] Comment on above: Performed By: #### Renee HARRIS, 27768-3, THYR #### [facility] ([id number]) [address] [place] [address] Cholesterol in HDL [Mass/Vol] 55 mg/dL Normal >39 [facility] Comment on above: Result Comment: HDL <40 mg/dL - High Risk HDL > or = 40mg/dL- Desirable HDL >60 mg/dL - Negative Risk Performed By: #### Renee HARRIS, 41207-0, THYR #### [facility] ([id number]) [address] [place] [address] Cholesterol in LDL [Mass/Vol] 69 mg/dL Normal <130 [facility] Comment on above: Result Comment: LDL <100 mg/dL - Desirable LDL >160 mg/dL - High Risk Performed By: #### Renee HARRIS, 75870-7, THYR #### [facility] ([id number]) [address] [place] [address] Cholesterol in VLDL [Mass/Vol] 16 mg/dL Normal 0-30 [facility] Comment on above: Performed By: #### Renee HARRIS, 05158-1, THYR #### [facility] ([id number]) [address] [place] [address] CHOLESTEROL:HDL 2.5 Normal 1.0-5.0 [facility] Comment on above: Performed By: #### Renee HARRIS, 99093-7, THYR #### [facility] ([id number]) [address], [address] [place] [address] Triglyceride [Mass/Vol] 82 mg/dL Normal 27-150 [facility] Comment on above: Performed By: #### Renee HARRIS, 88555-1, THYR #### [facility] ([id number]) [address], [address] [place] [address] No Panel Informationon 05-30 Interpretation and review of laboratory results Abnormal [facility] THYROID PROFILEon 05-30-2023 Free T4 [Mass/Vol] 0.92 ng/dL Normal 0.61-1.60 [facility] Comment on above: Performed By: #### Renee HARRIS, 15233-2, THYR #### [facility] ([id number]) [address], [address] [place] [address] TSH 0.95 uIU/mL Normal 0.49-4.67 [facility] Comment on above: Performed By: #### Renee HARRIS, 60238-4, THYR #### [facility] ([id number]) [address], [address] [place] [address] Thyroid profile includes TSH FT4on 05-30-2023 Free T4 [Mass/Vol] 0.92 ng/dL 0.61 - 1. 60 ng/dL [facility] TSH Qn 0.95 m[IU]/L [facility] MRI SHOULDER LT WO CONon MRI SHOULDER [...] by: RONALDO RANGEL Date: 2022-05-18 09:45 Normal [facility] METABOLIC PANE [facility] 08-29-2021 Albumin [Mass/Vol] 4.0 g/dL Normal 3.6-5.1 [facility] Comment on above: Performed By: #### 7 125, 129, 05408 #### [facility] [place] [address] Lab Tech: Finn Akins MD Albumin/Globulin [Mass ratio] 1.9 {ratio} Normal 1.0-2.5 [facility] Comment on above: Performed By: #### 7 115, 603, 06591 #### [facility] [address] Lab Tech: Finn Akins MD ALP [Catalytic activity/Vol] 56 U/L Normal 37-153 [facility] Comment on above: Performed By: #### 7 951, 570, 75425 #### [facility] [address], [address] [place], [place] [id number] Lab Tech: Finn Akins MD ALT [Catalytic activity/Vol] 18 U/L Normal 6-29 [facility] Comment on above: Performed By: #### 7 600, 927, 61730 #### [facility] of [place] [address] Lab Tech: Finn Akins MD AST [Catalytic activity/Vol] 18 U/L Normal 10-35 [facility] Comment on above: Performed By: #### 7 600, 927, 62953 #### [facility] [place] [address] Lab Tech: Finn Akins MD Bilirubin [Mass/Vol] 0.4 mg/dL Normal 0.2-1.2 [facility] Comment on above: Performed By: #### 7 600, 927, 66706 #### [facility] [place] [address] Lab Tech: Finn Akins MD BUN/CREATININE RATIO NOT APPLICABLE Normal 6-22 [facility] Comment on above: Performed By: #### 7 600, 927, 19215 #### [facility] [place] [address] Lab Tech: Finn Akins MD Calcium [Mass/Vol] 8.8 mg/dL Normal 8.6-10.4 [facility] Comment on above: Performed By: #### 7 600, 927, 87080 #### [facility] [place] [address] Lab Tech: Finn Akins MD Chloride [Moles/Vol] 106 mmol/L Normal 98-110 [facility] Comment on above: Performed By: #### 7 600, 927, 46590 #### [facility] [place] [address] Lab Tech: Finn Akins MD CO2 [Moles/Vol] 30 mmol/L Normal 20-32 [facility] Comment on above: Performed By: #### 7 600, 927, 11300 #### [facility] of [address] Lab Tech: Finn Akins MD Creatinine [Mass/Vol] 0.67 mg/dL Normal 0.60-0.93 [facility] Comment on above: Result Comment: For patients >49 years of age, the reference limit for Creatinine is approximately 13% higher for people identified as -Fijian. Performed By: #### 7 600, 927, 52434 #### [facility] [place] [address] Lab Tech: Finn Akins MD eGFR NON-AFR. PALESTINIAN 87 mL/min/1.73m2 Normal > OR = 60 [facility] Comment on above: Performed By: #### 7 600, 927, 93123 #### [facility] [place] [address] Lab Tech: Finn Akins MD GFR/1.73 sq M.predicted among blacks MDRD (S/P/Bld) [Vol rate/Area] 101 mL/min/{1.73_m2} Normal > OR = 60 [facility] Comment on above: Performed By: #### 7 600, 927, 72217 #### [facility] [place] [address] Lab Tech: Finn Akins MD Globulin (S) [Mass/Vol] 2.1 g/dL Normal 1.9-3.7 [facility] Comment on above: Performed By: #### 7 600, 927, 55230 #### [facility] [place] [address] Lab Tech: Finn Akins MD Glucose [Mass/Vol] 96 mg/dL Normal 65-99 [facility] Comment on above: Result Comment: Fasting reference interval Performed By: #### 7 600, 927, 09806 #### [facility] [place] [address] Lab Tech: Finn Akins MD Potassium [Moles/Vol] 3.9 mmol/L Normal 3.5-5.3 [facility] Comment on above: Performed By: #### 7 600, 927, 41469 #### [facility] of [address], [address] [place] [address] Lab Tech: Finn Akins MD Protein [Mass/Vol] 6.1 g/dL Normal 6.1-8.1 [facility] Comment on above: Performed By: #### 7 600, 927, 03623 #### [facility] of [address], [address] [place] [address] Lab Tech: Finn Akins MD Sodium [Moles/Vol] 143 mmol/L Normal 135-146 [facility] Comment on above: Performed By: #### 7 600, 927, 45454 #### [facility] [place] [address] Lab Tech: Finn Akins MD Urea nitrogen [Mass/Vol] 17 mg/dL Normal 7-25 [facility] Comment on above: Performed By: #### 7 600, 927, 14309 #### [facility] [place] [address] Lab Tech: Finn Akins MD LIPID PANEL, [address] Cholesterol [Mass/Vol] 126 mg/dL Normal <200 [facility] Comment on above: Order Comment: FASTI NG:YES FASTING: YES Performed By: #### 7 600, 927, 60899 #### [facility] [place] [address] Lab Tech: Finn Akins MD Cholesterol in HDL [Mass/Vol] 46 mg/dL Low > OR = 50 [facility] Comment on above: Order Comment: FASTI NG:YES FASTING: YES Performed By: #### 7 600, 927, 06965 #### [facility] [place] [address] Lab Tech: Finn Akins MD Cholesterol in LDL [Mass/Vol] [...] LDL-C. Aguilar HOLCOMB et al. MCKAY. 2013;310(19): 5605-9975 (http://[email or web address].OnMyBlock/faq/NOS700) Performed By: #### 7 600, 927, 82306 #### [facility] [address], [address] [place] [address] Lab Tech: Finn Akins MD Cholesterol.total/C holesterol in HDL [Mass ratio] 2.7 {ratio} Normal <5.0 [facility] Comment on above: Order Comment: FASTI NG:YES FASTING: YES Performed By: #### 7 600, 927, 01702 #### [facility] [address], [address] [place] [address] Lab Tech: Finn Akins MD NON HDL CHOLESTEROL 80 mg/dL (calc) Normal <130 [facility] Comment on above: Order Comment: FASTI NG:YES FASTING: YES Result Comment: For patients with diabetes plus 1 major ASCVD risk factor, treating to a non-HDL-C goal of <100 mg/dL (LDL-C of <70 mg/dL) is considered a therapeutic option. Performed By: #### 7 600, 927, 08929 #### [facility] [place] [address] Lab Tech: Finn Akins MD Triglyceride [Mass/Vol] 86 mg/dL Normal <150 [facility] Comment on above: Order Comment: FASTI NG:YES FASTING: YES Performed By: #### 7 600, 927, 11480 #### [facility] [place] [address] Lab Tech: Finn Akins MD VITAMIN B12on 08-29-2021 Cobalamin (Vitamin B12) [Mass/Vol] 184 pg/mL Low 200-1100 [facility] Comment on above: Performed By: #### 7 600, 927, 49909 #### [facility] [address], [address] [place] [address] Lab Tech: Finn Akins MD BASIC METABOLIC PANELon Calcium [Mass/Vol] 9.2 mg/dL Normal 8.6-10.4 [facility] Comment on above: Performed By: #### 9 , 20061, 40810 #### [facility] [address], [address] [place] [address] Lab Tech: Finn Akins MD Chloride [Moles/Vol] 102 mmol/L Normal 98-110 [facility] Comment on above: Performed By: #### 9 27, 15452, 61968 #### [facility] [address], [address] [place] [address] Lab Tech: Finn Akins MD CO2 [Moles/Vol] 28 mmol/L Normal 20-32 [facility] Comment on above: Performed By: #### 9 , 11655, 86542 #### [facility] [address], [address] [place] [address] Lab Tech: Finn Akins MD Creatinine [Mass/Vol] 0.56 mg/dL Low 0.60-0.93 [facility] Comment on above: Result Comment: For patients >49 years of age, the reference limit for Creatinine is approximately 13% higher for people identified as -Fijian. Performed By: #### 9 27, 19874, 48559 #### [facility] [address], [address] [place] [address] Lab Tech: Finn Akins MD eGFR NON-AFR. PALESTINIAN 93 mL/min/1.73m2 Normal > OR = 60 [facility] Comment on above: Performed By: #### 9 27, 49238, 24250 #### [facility] [address], [address] [place] [address] Lab Tech: Finn Akins MD GFR/1.73 sq M.predicted among blacks MDRD (S/P/Bld) [Vol rate/Area] 107 mL/min/{1.73_m2} Normal > OR = 60 [facility] Comment on above: Performed By: #### 9 27, 94164, 34523 #### [facility] [place] [address] Lab Tech: Finn Akins MD Glucose [Mass/Vol] 97 mg/dL Normal 65-99 [facility] Comment on above: Result Comment: Fasting reference interval Performed By: #### 9 27, 57331, 73758 #### [facility] [address], [address] [place] [address] Lab Tech: Finn Akins MD Potassium [Moles/Vol] 3.8 mmol/L Normal 3.5-5.3 [facility] Comment on above: Performed By: #### 9 , 68554, 84048 #### [facility] [place] [address] Lab Tech: Finn Akins MD Sodium [Moles/Vol] 140 mmol/L Normal 135-146 [facility] Comment on above: Performed By: #### 9 27, 35953, 78862 #### [facility] [place] [address] Lab Tech: Finn Akins MD Urea nitrogen [Mass/Vol] 14 mg/dL Normal 7-25 [facility] Comment on above: Performed By: #### 9 27, 88085, 37014 #### [facility] [place] [address] Lab Tech: Finn Akins MD Urea nitrogen/Creatinine [Mass ratio] 25 mg/mg High 6-22 [facility] Comment on above: Performed By: #### 9 , 98215, 32123 #### [facility] [place] [address] Lab Tech: Finn Akins MD TSH+FREE T4on 04-19-2021 Free T4 [Mass/Vol] 1.2 ng/dL Normal 0.8-1.8 [facility] Comment on above: Performed By: #### 9 27, 39257, 19785 #### [facility] [address], [address] [place] [address] Lab Tech: Finn Akins MD TSH Qn 0.55 m[IU]/L Normal 0.40-4.50 [facility] Comment on above: Performed By: #### 9 27, 97873, 15140 #### [facility] [address], [address] [place] [address] Lab Tech: Finn Akins MD VITAMIN B12on 04-19-2021 Cobalamin (Vitamin B12) [Mass/Vol] 133 pg/mL Low 200-1100 [facility] Comment on above: Performed By: #### 9 27, 36605, 15107 #### [facility] [address], [address] [place] [address] Lab Tech: Finn Akins MD Vital Signs Date Time Vital Sign Value Performing Clinician Facility 07-01-2023 15:40-0400 Body height 149.9 cm Sangeetha Quick DO Work Phone: [facility] 07-01-2023 15:40-0400 Body mass index (BMI) [Ratio] 31.1 kg/m2 Sangeetha Quick DO Work Phone: [facility] 07-01-2023 15:40-0400 Body temperature 98.2 [degF] Sangeetha Quick DO Work Phone: [facility] 07-01-2023 15:40-0400 Body weight 69.85 kg Sangeetha Quick DO Work Phone: [facility] 07-01-2023 15:40-0400 Diastolic blood pressure 70 mm[Hg] Sangeetha Quick DO Work Phone: [facility] 07-01-2023 15:40-0400 Heart rate 87 /min Sangeetha Quick DO Work Phone: [facility] 07-01-2023 15:40-0400 SaO2% (BldA) [Mass fraction] 99 % Sangeetha Quick DO Work Phone: [facility] 07-01-2023 15:40-0400 Systolic blood pressure 136 mm[Hg] Sangeetha Quick DO Work Phone: [facility] 06-25-2023 11:23-0400 Body height 149.9 cm Sangeetha Quick DO Work Phone: [facility] 06-25-2023 11:23-0400 Body mass index (BMI) [Ratio] 31.06 kg/m2 Sangeetha Quick DO Work Phone: [facility] 06-25-2023 11:23-0400 Body temperature 98.29 [degF] Sangeetha Quick DO Work Phone: [facility] 06-25-2023 11:23-0400 Body weight 69.76 kg Sangeetha Quick DO Work Phone: [facility] 06-25-2023 11:23-0400 Diastolic blood pressure 70 mm[Hg] Sangeetha Quick DO Work Phone: [facility] 06-25-2023 11:23-0400 Heart rate 73 /min Sangeetha Quick DO Work Phone: [facility] 06-25-2023 11:23-0400 SaO2% (BldA) [Mass fraction] 97 % Sangeetha Quick DO Work Phone: [facility] 06-25-2023 11:23-0400 Systolic blood pressure 120 mm[Hg] Sangeetha Quick DO Work Phone: [facility] 05-30-2023 10:29-0500 Body height 149.9 cm Sangeetha Quick DO Work Phone: [facility] 05-30-2023 10:29-0500 Body mass index (BMI) [Ratio] 30.7 kg/m2 [facility] 05-30-2023 10:29-0500 Body temperature 98.1 [degF] [facility] Quick [facility] 05-30-2023 10:29-0500 Body weight 68.95 kg Sangeetha Quick [facility] 05-30-2023 10:29-0500 Diastolic blood pressure 70 mm[Hg] Sangeetha Quick DO Work Phone: [facility] 05-30-2023 10:29-0500 Heart rate 71 /min Sangeetha Quick DO Work Phone: [facility] 05-30-2023 10:29-0500 SaO2% (BldA) [Mass fraction] 96 % Sangeetha Quick DO Work Phone: [facility] 05-30-2023 10:29-0500 Systolic blood pressure 120 mm[Hg] Sangeetha Quick DO Work Phone: [facility] Encounters Encounter Date Encounter Type Care Provider Facility Start: 09-10-2023 End: 09-10-2023 ambulatory KATHRYN CAGLE Not Available Start: 07-25-2023 End: 07-25-2023 ambulatory [facility] Start: 07-01-2023 End: 07-01-2023 ambulatory [facility] Start: 07-01-2023 End: 07-01-2023 Office outpatient visit 25 minutes Sangeetha Quick DO Work Phone: [facility] - Family Medicine Comment on above: 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 Start: 06-25-2023 End: 06-25-2023 ambulatory [facility] [facility] Start: 06-25-2023 End: 06-25-2023 Office outpatient visit 25 minutes Sangeetha Quick DO Work Phone: [facility] Internal Medicine - Family Medicine Comment on above: Localized osteoarthr itis of left knee (Primary Dx) Start: 05-30-2023 End: 05-31-2023 ambulatory SANGEETHA QUICK [facility] Start: 05-30-2023 End: 05-30-2023 ambulatory [facility] Start: 05-30-2023 End: 05-30-2023 Office outpatient visit 25 minutes Sangeetha Quick DO Work Phone: [facility] Internal Medicine - Family Medicine [...] Adult BMI Screening Adult BMI Screen ing [facility] Start: 06-30-2024 Depression Screening Depression Scre ening [facility] Start: 06-30-2024 Fall Risk Screening Fall Risk Screen ing [facility] Start: 06-30-2024 Tobacco Screening Tobacco Screening [facility] Start: 06-24-2024 Adult BMI Screening Adult BMI Screen ing [facility] Start: 06-24-2024 Depression Screening Depression Scre ening [facility] Start: 06-24-2024 Fall Risk Screening Fall Risk Screen ing [facility] Start: 06-24-2024 Tobacco Screening Tobacco Screening [facility] Start: 05-30-2024 Adult BMI Screening Adult BMI Screen ing [facility] Start: 05-30-2024 Depression Screening Depression Scre ening [facility] Start: 05-30-2024 Fall Risk Screening Fall Risk Screen ing [facility] Start: 05-30-2024 Tobacco Screening Tobacco Screening [facility] Start: 05-21-2024 DTaP,Tdap and Td Vaccines (2 - Td or Tdap) DTaP,Tdap and Td Vaccines (2 - Td or Tdap) [facility] Start: 12-03-2023 End: 12-03-2023 Patient encounter procedure 12/03/2023 2:00 PM EDT Office Visit [facility] Internal Medicine - Family Medicine [address] [place] [address] [facility] Internal Medicine - Family Medicine Start: 11-28-2023 Medicare Annual Well ness Visit Medicare Annual Wellness Visit [facility] Start: 07-14-2023 Influenza vaccination Influenza Vacc ine [facility] Comment on above: Postponed from 12/14 (Vaccine Not Available) Start: 06-25-2023 End: 06-24-2024 XR Knee - left 3 Views X-ray knee left 3 views Imaging Routine Localized osteoarthritis of left knee Expected: 06/25/2023, Expires: 06/24/2024 [facility] Work Phone: Comment on above: Expected: 06/25/2023 , Expires: 06/24/2024 Start: 12-14-2022 COVID-19 Vaccine ( season) COVID-19 Vaccine ( season) [facility] Start: 12-14-2022 Influenza vaccination Influenza Vacc ine [facility] Start: 12-20-1997 Administration of varicella zoster vaccine Zoster (Shingles) Vaccine (1 of 2) [facility] Start: 12-20-1965 Adult BMI Follow Up Plan Adult BMI F ollow Up Plan [facility] Immunizations Immunization Date Immunization Notes Care Provider Dima landon 04-24-2017 Influenza, injectabl e, Madin [place] Canine Kidney, preservative free, quadrivalent Sangeetha Quick DO Work Phone: [facility] 04-24-2017 influenza virus vacc ine, unspecified formulation Sangeetha Quick DO Work Phone: [facility] 03-15-2016 pneumococcal polysaccharide vaccine, 23 valent Sangeetha Quick DO Work Phone: [facility] 01-11-2016 influenza, seasonal, injectable, preservative free Sangeetha Quick DO Work Phone: [facility] 01-05-2015 influenza, seasonal, injectable, preservative free Sangeetha Quick DO Work Phone: [facility] 01-05-2015 pneumococcal conjuga te vaccine, 13 valent Sangeetha Quick DO Work Phone: [facility] 05-21-2014 pneumococcal polysaccharide vaccine, 23 valent Sangeetha Quick DO Work Phone: [facility] 05-21-2014 tetanus toxoid, redu mary diphtheria toxoid, and acellular pertussis vaccine, adsorbed Sangeetha Quick DO Work Phone: [facility] Payers Date Payer Category Payer Private Health Insurance [employer] [id number] 2021-Present [phone] [address] [address] [place] [address] [id number] 2010 Medicare MEDICARE MEDICAR E PART A & B [id number] 2010-Present [phone] [address] [place] [address] [id number] 1959 Medicare [id number] 1959 Private Health Insurance CLI [id number] 1945 Unknown [id number] 2.16.840.1.920280.3.579 .2.593 1945 Unknown [id number] 2.16.840.1.376586.3.579 .2.593 1947 Unknown [id number] 2.16.840.1.583544.3.579 .2.593 1947 Unknown [id number] 2.16.840.1.955009.3.579 .2.593 1947 Unknown [id number] 2.16.840.1.760033.3.579 .2.593 1947 Unknown [id number] 2.16.840.1.790506.3.579 .2.593 1947 Unknown [id number] 2.16.840.1.032896.3.579 .2.593 1947 Unknown [id number] 2.16.840.1.220024.3.579 .2.593 1947 Unknown [id number] 2.16840.1.511193.3.579 .2.593 1947 Unknown [id number] 2.16.840.1.032044.3.579 .2.593 1947 Unknown [id number] 2.16840.1.439950.3.579 .2.593 1947 Unknown [id number] 2.16840.1.454302.3.579 .2.593 1947 Unknown [id number] 2.840.1.104287.3.579 .2.593 1947 Unknown [id number] 2.840.1.624421.3.579 .2.593 1947 Unknown [id number] 2.840.1.001420.3.579 .2.593 1947 Unknown [id number] 2.840.1.147325.3.579 .2.1286 1947 Unknown [id number] 2.840.1.430721.3.579 .2.128 1947 Unknown [id number] 2.16840.1.117143.3.579 .2.128 1947 Unknown [id number] 2.16840.1.650436.3.579 .2.128 1947 Unknown [id number] 2.16840.1.768966.3.579 .2.128 1945 Unknown [id number] 2.16840.1.555263.3.579 .2.128 1945 Unknown [id number] 2.16840.1.023242.3.579 .2.1259 Social History Date Type Detail Facility [facility]: [facility] Start: 05-14-2022 Tobacco use and exposure Smoke less tobacco non-user [facility] Start: 05-30-2023 End: 07-01-2023 Alcohol intake Current non-drinker of alcohol (finding) [facility] Start: 11-27-2022 End: 07-01-2023 History of Social function [facility] Start: 11-27-2022 End: 07-01-2023 Social connection and isolation panel [facility] Do you belong to any clubs or organizations such as rastafari groups, unions, fraternal or athletic groups, or school groups? Yes [facility] Are you now , , , , never or living with a partner? [facility] How often to you hav e a drink containing alcohol? Never [facility] How many standard dr inks containing alcohol do you have on a typical day? Patient does not drink [facility] How hard is it for y ou to pay for the very basics like food, housing, medical care, and heating Hard [facility] Do you feel stress - tense, restless, nervous, or anxious, or unable to sleep at night because your mind is troubled all the time - these days [OSQ] Very much [facility] Start: 1945 Sex Assigned At Not on file P [facility] Clinical Notes 09-07-2021 to 07-01-2023 Sangeetha [...] Testing No results found. Sangeetha Quick DO., [facility] Office: [phone] documented in this encounter [facility] 06-25-2023 History of Present illness Narrative [...] Testing No results found. Sangeetha Quick DO., [facility] Office: [phone] documented in this encounter [facility] 05-30-2023 History of Present illness Narrative IM PROGRESS NOTE Patient - Rach Munroe Age - 77 [facility] 1945 [id number] ASSESS[facility] & PLAN 1. Hypothyroidism, unspecified type [...] [facility] at a [facility], and a son was found at home. [...] Testing No results found. Sangeetha Quick DO., [facility] Office: [phone] documented in this encounter [facility] 07-19-2022 Note CONSULTATION CONSULTATION DATE: [...] our patients to inform us about any [id number]-[id number] medications or herbal remedies/nutritional supplements/alternative remedies. 2. [...] options with their primary care provider. [facility] 04-26-2022 Note CONSULTATION CONSULTATION DATE: 04/26/2022 [...] three months' time unless otherwise indicated. [facility] 03-27-2022 Note CONSULTATION CONSULTATION DATE: 03/27/2022 [...] to proceed. CC: Sangeetha Quick D.O. [facility] 02-08-2022 Note CONSULTATION CONSULTATION DATE: 02/08/2022 [...] The patient agrees with this plan. [facility] 01-11-2022 Note CONSULTATION CONSULTATION DATE: 01/11/2022 [...] Patient would like to move forward. [facility] 12-14-2021 Note CONSULTATION PROCEDURE DATE: 12/14/2021 [...] be followed up in the office. [facility] 12-14-2021 Note CONSULTATION CONSULTATION DATE: 12/14/2021 [...] well, which she does consent to. [facility] 09-07-2021 Note CONSULTATION CONSULTATION DATE: 09/07/2021 [...] in the fall. She was referred to [facility] Neurosurgery and is planning to have surgery in the fall following harvest season. 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 Patient feels that she can make it through the summer with a combination of her medication and occasional trigger point injections. Activities that aggravate her pain are early childhood specialist hours, housework and lifting. She uses heat [...] by: MARIELY YUAN . 09/14/2021 16:04:00 [facility] Evaluation note Diagnosis Hypothyroidism, unspecified type- Primary Cobalamin deficiency Other B-complex deficiencies Hyperlipidemia, unspecified hyperlipidemia type Osteoarthritis of left shoulder, unspecified osteoarthritis type [facility] Localized osteoarthritis of left knee- Primary [facility] Diagnosis Primary osteoarthritis of knees, bilateral- Primary Osteoarthritis of left shoulder, unspecified osteoarthritis type Immunization due documented [facility] filedocumented in this encounter [facility]ructionsNot on filedocumented in this encounter [facility]* Attachments The following attachments cannot be sent through Care Everywhere. * Osteoarthritis Discharge Instructions (Pakistani) [facility] Purpose Family History No Family [...] AUTHOR AUTHOR'S ORGANIZ ATION 08/29/2022 [facility] DATE CREATED AUTHOR AUTHOR'S ORGANIZ ATION 06/01/2023 [facility] DATE CREATED AUTHOR AUTHOR'S ORGANIZ ATION 06/28/2023 [facility] DATE CREATED AUTHOR AUTHOR'S ORGANIZ ATION 07/26/2023 [facility] DATE CREATED AUTHOR AUTHOR'S RICHMOND ATION 09/10/2023 [facility] EPIC Reason for Visit (unrecogniz ed section and content) Reason Comments Thyroid Problem Hyperlipidemia Reason Comments Knee Pain Left knee Reason Comments lt knee injury, now both hurting Feeling better. 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 [facility] [employer] [facility]. provides no warranty or guarantee of the accuracy or completeness of information in this document.
[2023-10-29 07:54] VITALS: BP 140/80; PULSE 72; TEMP 36.3; O2SAT 98
[2023-10-29 08:13] VITALS: BP 180/79; PULSE 70; O2SAT 93
[2023-10-29 08:17] VITALS: BP 188/83; PULSE 71; O2SAT 91
[2023-10-29] MEDS: LIDOCAINE HCL 2% PF 100 MG/5 ML VIAL 2 ML INJ (08:19)
[2023-10-29] MEDS: HYALURONATE SODIUM, STABILIZED 60 MG/3 ML SYRINGE IU (08:19)
[2023-10-29] MEDS: IOHEXOL 240 MG/ML - 10 ML VIAL 12 MG INJ (08:19)
--- NOTE | 2023-10-29 08:57 | W.PM.PROCNOT ---
Date of procedure: 10/29/23 Pre-op diagnosis: Right knee osteoarthritis Post-op diagnosis: same as pre-op Procedure: Procedure: Right knee joint injection using Durolane 3ml. Immediate complications none. Anesthesia: 2% lidocaine plain for skin wheal. After informed consent was obtained, patient brought to the OR placed in the supine position. Skin overlying the area was prepped and draped using Betadine. 25-gauge 1/2 inch needle was used for skin wheal over the medial aspect of the knee joint identified under fluoroscopy. Omnipaque dye was used to confirm needle tip placement within the knee joint space 0.5 mL use of the injection. Subsequently 3ml of durolane was injected into the space. No indication of intravascular or intraneuronal needle tip placement or injection was noted post procedure. The needle was removed, patient transferred to Recovery room in stable condition to discharged home after meeting criteria. Anesthesia: Local Surgeon: Suma Baker Condition: stable
== END 2023-10-29 08:20 | disposition home or self-care (01) ==
LOC: SURGOUT 07:40
PROVIDERS: PCP Internal Medicine; Visit Provider Anesthesiology Pain Medicine
DX: M17.11 Unilateral primary osteoarthritis, right knee (principal)
CPT/HCPCS: 20610; 77002; J7318; Q9966

== ENCOUNTER 2023-11-07 09:49 | Outpatient (OUT) | payer MEDICARE, SELFPAY ==
--- OUTSIDE RECORDS SUMMARY | 2023-11-07 09:52 | XMS_ITS | CCD ---
Author Organization [facility] Care Team Providers Care Internal Medicine Nurse Practitioner Name Role Phone LAKSHMIPATHY, NARENDRANATH Attending Unava [...] ilable Yuhas Sangeetha [place] Primary Care Provider SANGEETHA QUICK L Referring Unavailable YUHAS, SANGEETHA [...] Facility (1 source) Aspirin Drug Allergy [facility] Repository (4 sources) Codeine; Translations: [CODEINE] Drug Allergy 8 [facility] (1 source) Etodolac Drug Allergy [facility] (4 sources) Iodine; Translations: [IODINE] Drug Allergy 8 [facility] (4 sources) Latex; Translations: [LATEX] Drug allergy (disorder) 3 [facility] (1 source) pregabalin Drug Allergy [facility] (1 source) Sulfonamides (Antibiotic) Drug allergy (disorder) [facility] (6 sources) Aspirin; Translations: [ASPIRIN, BUFFERED] Drug Allergy 8 [facility] (3 sources) Codeine Drug Allergy 8 Rash [facility] (6 sources) Etodolac; Translations: [ETODOLAC] Drug Allergy 3 [facility] (3 sources) Iodine Drug Allergy 8 Anaphylaxis [facility] (3 sources) Latex Propensity to adverse reactions to drug 3 [facility] (6 sources) Penicillins; Translations: [PENICILLINS] Propensity to adverse reactions to drug 8 [facility] (6 sources) Sulfonamides (Antibiotic); Translations: [SULFA (SULFONAMIDE ANTIBIOTICS)] Propensity to adverse reactions to drug 8 Rash [facility] Medications Current Medications Medication Drug Class(es) Dates [...] Alejandro MD on 06/27/2023 1:51 PM Normal [facility] COMPREHENSIVE METABOLIC PANE Ulices 05-30-2023 Albumin [Mass/Vol] 4.3 g/dL Normal 3.2-5.3 [facility] Comment on above: Performed By: #### C KIMBERLY, 63097-3, THYR #### [facility] ([id number]) [address], [address] [place] [address] ALP [Catalytic activity/Vol] 63 U/L Normal 39-130 [facility] Comment on above: Performed By: #### C KIMBERLY, 43912-7, THYR #### [facility] ([id number]) [address], [address] [place] [address] ALT [Catalytic activity/Vol] 15 U/L Normal 0-31 [facility] Comment on above: Performed By: #### C KIMBERLY, 10872-5, THYR #### [facility] ([id number]) [address], [address] [place] [address] Anion gap [Moles/Vol] 6 mmol/L Normal 5-15 [facility] Comment on above: Performed By: #### Renee HARRIS, 97739-9, THYR #### [facility] ([id number]) [address], [address] [place] [address] AST [Catalytic activity/Vol] 15 U/L Normal 0-41 [facility] Comment on above: Performed By: #### Renee HARRIS, 93307-6, THYR #### [facility] ([id number]) [address], [address] [place] [address] Bilirubin [Mass/Vol] 0.3 mg/dL Normal 0.3-1.2 [facility] Comment on above: Performed By: #### C KIMBERLY, 62144-5, THYR #### [facility] ([id number]) [address], [address] [place] [address] Calcium [Mass/Vol] 9.1 mg/dL Normal 8.5-10.5 [facility] Comment on above: Performed By: #### Renee HARRIS, 89944-4, THYR #### [facility] ([id number]) [address], [address] [place] [address] Chloride [Moles/Vol] 105 mmol/L Normal 98-109 [facility] Comment on above: Performed By: #### C KIMBERLY, 40172-2, THYR #### [facility] ([id number]) [address], [address] [place] [address] CO2 [Moles/Vol] 31 mmol/L Normal 22-32 [facility] Comment on above: Performed By: #### C KIMBERLY, 88725-1, THYR #### [facility] ([id number]) [address], [address] [place] [address] Creatinine [Mass/Vol] 0.65 mg/dL Normal 0.40-1.00 [facility] Comment on above: Result Comment: METH OD TRACEABLE TO IDMS STANDARD Performed By: #### C KIMBERLY, 38876-6, THYR #### [facility] ([id number]) [address], [address] [place] [address] eGFR (CKD-EPI) NON-RACE DEPENDENT >90 Normal >59 [facility] Comment on above: Result Comment: Reported eGFR is based on the CKD-EPI 2020 equation that does not use a race coefficient. Performed By: #### C KIMBERLY, 21018-2, THYR #### [facility] ([id number]) [address], [address] [place] [address] Glucose [Mass/Vol] 101 mg/dL High 65-99 [facility] Comment on above: Performed By: #### C KIMBERLY, 10657-4, THYR #### [facility] ([id number]) [address], [address] [place] [address] Potassium [Moles/Vol] 4.4 mmol/L Normal 3.5-5.0 [facility] Comment on above: Performed By: #### C KIMBERLY, 38145-2, THYR #### [facility] ([id number]) [address], [address] [place] [address] Protein [Mass/Vol] 6.9 g/dL Normal 6.0-8.0 [facility] Comment on above: Performed By: #### C KIMBERLY, 19679-3, THYR #### [facility] ([id number]) [address], [address] [place] [address] Sodium [Moles/Vol] 142 mmol/L Normal 134-146 [facility] Comment on above: Performed By: #### C KIMBERLY, 14273-2, THYR #### [facility] ([id number]) [address], [address] [place] [address] Urea nitrogen [Mass/Vol] 18 mg/dL Normal 5-27 [facility] Comment on above: Performed By: #### Renee HARRIS, 59048-1, THYR #### [facility] ([id number]) [address], [address] [place] [address] Comprehensive metabolic pane ulices 05-30-2023 Albumin [Mass/Vol] 4.3 g/dL 3.2 - 5.3 g/dL [facility] ALP [Catalytic activity/Vol] 63 U/L 39 - 130 U/L [facility] ALT No additional P-5'-P [Catalytic activity/Vol] 15 U/L 0 - 31 U/L [facility] Anion gap [Moles/Vol] 6 mmol/L 5 - 15 mmol/L [facility] AST [Catalytic activity/Vol] 15 U/L 0 - 41 U/L [facility] Bilirubin [Mass/Vol] 0.3 mg/dL 0.3 - 1.2 mg/dL [facility] Calcium [Mass/Vol] 9.1 mg/dL 8.5 - 10. 5 mg/dL [facility] Chloride [Moles/Vol] 105 mmol/L 98 - 109 mmol/L [facility] CO2 [Moles/Vol] 31 mmol/L 22 - 32 mmol/L [facility] Creatinine [Mass/Vol] 0.65 mg/dL 0.40 - 1.00 mg/dL [facility] Comment on above: METHOD TRACEABLE TO [facility] STANDARD eGFR (CKD-EPI)non-race dependent - PINF [facility] Comment on above: Reported eGFR is based on the CKD-EPI 2020 equation that does not use a race coefficient. Glucose [Mass/Vol] 101 mg/dL High 65 - 99 mg/dL [facility] Potassium [Moles/Vol] 4.4 mmol/L 3.5 - 5.0 mmol/L [facility] Protein [Mass/Vol] 6.9 g/dL 6.0 - 8.0 g/dL [facility] Sodium [Moles/Vol] 142 mmol/L 134 - 146 mmol/L [facility] Urea nitrogen [Mass/Vol] 18 mg/dL 5 - 27 mg/dL [facility] Lipid 1996 panelon Cholesterol [Mass/Vol] 140 mg/dL Low 150 - 200 mg/dL [facility] Cholesterol in HDL [Mass/Vol] 55 mg/dL 39 - PINF mg/dL [facility] Comment on above: HDL <40 mg/dL - High Risk HDL > or = 40mg/dL- Desirable HDL >60 mg/dL - Negative Risk Cholesterol in LDL [Mass/Vol] 69 mg/dL NINF - 130 mg/dL [facility] Comment on above: LDL <100 mg/dL - Desirable LDL >160 mg/dL - High Risk Cholesterol in VLDL [Mass/Vol] 16 mg/dL 0 - 30 mg/dL [facility] Cholesterol.total/C holesterol in HDL [Mass ratio] 2.5 {ratio} 1.0 - 5.0 [facility] Triglyceride [Mass/Vol] 82 mg/dL 27 - 150 mg/dL [facility] Cholesterol [Mass/Vol] 140 mg/dL Low 150-200 [facility] Comment on above: Performed By: #### Renee HARRIS, 48320-8, THYR #### [facility] ([id number]) [address], [address] [place] [address] Cholesterol in HDL [Mass/Vol] 55 mg/dL Normal >39 [facility] Comment on above: Result Comment: HDL <40 mg/dL - High Risk HDL > or = 40mg/dL- Desirable HDL >60 mg/dL - Negative Risk Performed By: #### Renee HARRIS, 09640-1, THYR #### [facility] ([id number]) [address], [address] [place] [address] Cholesterol in LDL [Mass/Vol] 69 mg/dL Normal <130 [facility] Comment on above: Result Comment: LDL <100 mg/dL - Desirable LDL >160 mg/dL - High Risk Performed By: #### Renee HARRIS, 53060-1, THYR #### [facility] ([id number]) [address], [address] [place] [address] Cholesterol in VLDL [Mass/Vol] 16 mg/dL Normal 0-30 [facility] Comment on above: Performed By: #### Renee HARRIS, 63757-0, THYR #### [facility] ([id number]) [address], [address] [place] [address] CHOLESTEROL:HDL 2.5 Normal 1.0-5.0 [facility] Comment on above: Performed By: #### Renee HARRIS, 03573-3, THYR #### [facility] ([id number]) [address], [address] [place] [address] Triglyceride [Mass/Vol] 82 mg/dL Normal 27-150 [facility] Comment on above: Performed By: #### Renee HARRIS, 59334-7, THYR #### [facility] ([id number]) [address], [address] [place] [address] No Panel Informationon 05-30 Interpretation and review of laboratory results Abnormal [facility] THYROID PROFILEon 05-30-2023 Free T4 [Mass/Vol] 0.92 ng/dL Normal 0.61-1.60 [facility] Comment on above: Performed By: #### Renee HARRIS, 24244-5, THYR #### [facility] ([id number]) [address], [address] [place] [address] TSH 0.95 uIU/mL Normal 0.49-4.67 [facility] Comment on above: Performed By: #### Renee HARRIS, 49452-2, THYR #### [facility] ([id number]) [address], [address] [place] [address] Thyroid profile includes TSH FT4on 05-30-2023 Free T4 [Mass/Vol] 0.92 ng/dL 0.61 - 1. 60 ng/dL [facility] TSH Qn 0.95 m[IU]/L [facility] MRI SHOULDER LT WO CONon MRI [...] by: RONALDO RANGEL Date: 2022-05-18 09:45 Normal [facility] METABOLIC PANE [facility] 08-29-2021 Albumin [Mass/Vol] 4.0 g/dL Normal 3.6-5.1 [facility] Comment on above: Performed By: #### 7 675, 054, 55090 #### [facility] [place] [address] Acid Pump Operator: Finn Akins MD Albumin/Globulin [Mass ratio] 1.9 {ratio} Normal 1.0-2.5 [facility] Comment on above: Performed By: #### 7 032, 847, 40961 #### [facility] [address] Acid Pump Operator: Finn Akins MD ALP [Catalytic activity/Vol] 56 U/L Normal 37-153 [facility] Comment on above: Performed By: #### 7 903, 113, 91309 #### [facility] [address], [address] [place], [place] [address] Acid Pump Operator: Finn Akins MD ALT [Catalytic activity/Vol] 18 U/L Normal 6-29 [facility] Comment on above: Performed By: #### 7 600, 927, 01610 #### [facility] of [place] [address] Acid Pump Operator: Finn Akins MD AST [Catalytic activity/Vol] 18 U/L Normal 10-35 [facility] Comment on above: Performed By: #### 7 600, 927, 59457 #### [facility] of [place] [address] Acid Pump Operator: Finn Akins MD Bilirubin [Mass/Vol] 0.4 mg/dL Normal 0.2-1.2 [facility] Comment on above: Performed By: #### 7 600, 927, 10487 #### [facility] of [place] [address] Acid Pump Operator: Finn Akins MD BUN/CREATININE RATIO NOT APPLICABLE Normal 6-22 [facility] Comment on above: Performed By: #### 7 600, 927, 03167 #### [facility] [place] [address] Acid Pump Operator: Finn Akins MD Calcium [Mass/Vol] 8.8 mg/dL Normal 8.6-10.4 [facility] Comment on above: Performed By: #### 7 600, 927, 58556 #### [facility] of [place] [address] Acid Pump Operator: Finn Akins MD Chloride [Moles/Vol] 106 mmol/L Normal 98-110 [facility] Comment on above: Performed By: #### 7 600, 927, 17479 #### [facility] of [place] [address] Acid Pump Operator: Finn Akins MD CO2 [Moles/Vol] 30 mmol/L Normal 20-32 [facility] Comment on above: Performed By: #### 7 600, 927, 95632 #### [facility] of [address] Acid Pump Operator: Finn Akins MD Creatinine [Mass/Vol] 0.67 mg/dL Normal 0.60-0.93 [facility] Comment on above: Result Comment: For patients >49 years of age, the reference limit for Creatinine is approximately 13% higher for people identified as -Singaporean. Performed By: #### 7 600, 927, 50659 #### [facility] [place] [address] Acid Pump Operator: Finn Akins MD eGFR NON-AFR. BURKINAN 87 mL/min/1.73m2 Normal > OR = 60 [facility] Comment on above: Performed By: #### 7 600, 927, 04437 #### [facility] [place] [address] Acid Pump Operator: Finn Akins MD GFR/1.73 sq M.predicted among blacks MDRD (S/P/Bld) [Vol rate/Area] 101 mL/min/{1.73_m2} Normal > OR = 60 [facility] Comment on above: Performed By: #### 7 600, 927, 14864 #### [facility] [place] [address] Acid Pump Operator: Finn Akins MD Globulin (S) [Mass/Vol] 2.1 g/dL Normal 1.9-3.7 [facility] Comment on above: Performed By: #### 7 600, 927, 03376 #### [facility] [place] [address] Acid Pump Operator: Finn Akins MD Glucose [Mass/Vol] 96 mg/dL Normal 65-99 [facility] Comment on above: Result Comment: Fasting reference interval Performed By: #### 7 600, 927, 14243 #### [facility] [place] [address] Acid Pump Operator: Finn Akins MD Potassium [Moles/Vol] 3.9 mmol/L Normal 3.5-5.3 [facility] Comment on above: Performed By: #### 7 600, 927, 89956 #### [facility] of [address], [address] [place] [address] Acid Pump Operator: Finn Akins MD Protein [Mass/Vol] 6.1 g/dL Normal 6.1-8.1 [facility] Comment on above: Performed By: #### 7 600, 927, 81580 #### [facility] of [address], [address] [place] [address] Acid Pump Operator: Finn Akins MD Sodium [Moles/Vol] 143 mmol/L Normal 135-146 [facility] Comment on above: Performed By: #### 7 600, 927, 01389 #### [facility] of [place] [address] Acid Pump Operator: Finn Akins MD Urea nitrogen [Mass/Vol] 17 mg/dL Normal 7-25 [facility] Comment on above: Performed By: #### 7 600, 927, 33700 #### [facility] [place] [address] Acid Pump Operator: Finn Akins MD LIPID PANEL, [address] Cholesterol [Mass/Vol] 126 mg/dL Normal <200 [facility] Comment on above: Order Comment: FASTI NG:YES FASTING: YES Performed By: #### 7 600, 927, 46050 #### [facility] of [place] [address] Acid Pump Operator: Finn Akins MD Cholesterol in HDL [Mass/Vol] 46 mg/dL Low > OR = 50 [facility] Comment on above: Order Comment: FASTI NG:YES FASTING: YES Performed By: #### 7 600, 927, 93343 #### [facility] of [place] [address] Acid Pump Operator: Finn Akins MD Cholesterol in LDL [...] LDL-C. Aguilar HOLCOMB et al. MCKAY. 2013;310(19): 2822-8073 (http://education.Jia.com.Ryla/faq/AVF251) Performed By: #### 7 600, 927, 84175 #### [facility] [address], [address] [place] [address] Acid Pump Operator: Finn Akins MD Cholesterol.total/C holesterol in HDL [Mass ratio] 2.7 {ratio} Normal <5.0 [facility] Comment on above: Order Comment: FASTI NG:YES FASTING: YES Performed By: #### 7 600, 927, 81976 #### [facility] [address], [address] [place] [address] Acid Pump Operator: Finn Akins MD NON HDL CHOLESTEROL 80 mg/dL (calc) Normal <130 [facility] Comment on above: Order Comment: FASTI NG:YES FASTING: YES Result Comment: For patients with diabetes plus 1 major ASCVD risk factor, treating to a non-HDL-C goal of <100 mg/dL (LDL-C of <70 mg/dL) is considered a therapeutic option. Performed By: #### 7 600, 927, 64619 #### [facility] [place] [address] Acid Pump Operator: Finn Akins MD Triglyceride [Mass/Vol] 86 mg/dL Normal <150 [facility] Comment on above: Order Comment: FASTI NG:YES FASTING: YES Performed By: #### 7 600, 927, 23872 #### [facility] [place] [address] Acid Pump Operator: Finn Akins MD VITAMIN B12on 08-29-2021 Cobalamin (Vitamin B12) [Mass/Vol] 184 pg/mL Low 200-1100 [facility] Comment on above: Performed By: #### 7 600, 927, 85521 #### [facility] [address], [address] [place] [address] Acid Pump Operator: Finn Akins MD BASIC METABOLIC PANELon Calcium [Mass/Vol] 9.2 mg/dL Normal 8.6-10.4 [facility] Comment on above: Performed By: #### 9 , 99845, 94541 #### [facility] [address], [address] [place] [address] Acid Pump Operator: Finn Akins MD Chloride [Moles/Vol] 102 mmol/L Normal 98-110 [facility] Comment on above: Performed By: #### 9 27, 39773, 44833 #### [facility] [address], [address] [place] [address] Acid Pump Operator: Finn Akins MD CO2 [Moles/Vol] 28 mmol/L Normal 20-32 [facility] Comment on above: Performed By: #### 9 , 65114, 20207 #### [facility] [address], [address] [place] [address] Acid Pump Operator: Finn Akins MD Creatinine [Mass/Vol] 0.56 mg/dL Low 0.60-0.93 [facility] Comment on above: Result Comment: For patients >49 years of age, the reference limit for Creatinine is approximately 13% higher for people identified as -Singaporean. Performed By: #### 9 27, 68040, 30903 #### [facility] [address], [address] [place] [address] Acid Pump Operator: Finn Akins MD eGFR NON-AFR. BURKINAN 93 mL/min/1.73m2 Normal > OR = 60 [facility] Comment on above: Performed By: #### 9 27, 68529, 39796 #### [facility] [address], [address] [place] [address] Acid Pump Operator: Finn Akins MD GFR/1.73 sq M.predicted among blacks MDRD (S/P/Bld) [Vol rate/Area] 107 mL/min/{1.73_m2} Normal > OR = 60 [facility] Comment on above: Performed By: #### 9 27, 59721, 42279 #### [facility] [place] [address] Acid Pump Operator: Finn Akins MD Glucose [Mass/Vol] 97 mg/dL Normal 65-99 [facility] Comment on above: Result Comment: Fasting reference interval Performed By: #### 9 27, 08907, 56193 #### [facility] [address], [address] [place] [address] Acid Pump Operator: Finn Akins MD Potassium [Moles/Vol] 3.8 mmol/L Normal 3.5-5.3 [facility] Comment on above: Performed By: #### 9 , 62009, 96164 #### [facility] [place] [address] Acid Pump Operator: Finn Akins MD Sodium [Moles/Vol] 140 mmol/L Normal 135-146 [facility] Comment on above: Performed By: #### 9 27, 24806, 19542 #### [facility] [place] [address] Acid Pump Operator: Finn Akins MD Urea nitrogen [Mass/Vol] 14 mg/dL Normal 7-25 [facility] Comment on above: Performed By: #### 9 27, 52641, 23985 #### [facility] [place] [address] Acid Pump Operator: Finn Akins MD Urea nitrogen/Creatinine [Mass ratio] 25 mg/mg High 6-22 [facility] Comment on above: Performed By: #### 9 , 86731, 10940 #### [facility] [place] [address] Acid Pump Operator: Finn Akins MD TSH+FREE T4on 04-19-2021 Free T4 [Mass/Vol] 1.2 ng/dL Normal 0.8-1.8 [facility] Comment on above: Performed By: #### 9 27, 84682, 10986 #### [facility] [address], [address] [place] [address] Acid Pump Operator: Finn Akins MD TSH Qn 0.55 m[IU]/L Normal 0.40-4.50 [facility] Comment on above: Performed By: #### 9 27, 43577, 34022 #### [facility] [address], [address] [place] [address] Acid Pump Operator: Finn Akins MD VITAMIN B12on 04-19-2021 Cobalamin (Vitamin B12) [Mass/Vol] 133 pg/mL Low 200-1100 [facility] Comment on above: Performed By: #### 9 27, 39390, 50362 #### [facility] [address], [address] [place] [address] Acid Pump Operator: Finn Akins MD Vital Signs Date Time Vital Sign Value Performing Clinician Facility 07-01-2023 15:40-0400 Body height 149.9 cm Sangeetha Quick DO Work Phone: [facility] 07-01-2023 15:40-0400 Body mass index (BMI) [Ratio] 31.1 kg/m2 Sangeetha Quick DO Work Phone: [facility] 07-01-2023 15:40-0400 Body temperature 98.2 [degF] Sangeetha Quick DO Work Phone: [facility] 07-01-2023 15:40-0400 Body weight 69.85 kg Sangeetha Quick DO Work Phone: [facility] 07-01-2023 15:40-0400 Diastolic blood pressure 70 mm[Hg] Sangeetha Quick DO Work Phone: [facility] 07-01-2023 15:40-0400 Heart rate 87 /min Sangeetha Quick DO Work Phone: [facility] 07-01-2023 15:40-0400 SaO2% (BldA) [Mass fraction] 99 % Sangeetha Quick DO Work Phone: [facility] 07-01-2023 15:40-0400 Systolic blood pressure 136 mm[Hg] Sangeetha Quick DO Work Phone: [facility] 06-25-2023 11:23-0400 Body height 149.9 cm Sangeetha Quick DO Work Phone: [facility] 06-25-2023 11:23-0400 Body mass index (BMI) [Ratio] 31.06 kg/m2 Sangeetha Quick DO Work Phone: [facility] 06-25-2023 11:23-0400 Body temperature 98.29 [degF] Sangeetha Quick DO Work Phone: [facility] 06-25-2023 11:23-0400 Body weight 69.76 kg Sangeetha Quick DO Work Phone: [facility] 06-25-2023 11:23-0400 Diastolic blood pressure 70 mm[Hg] Sangeetha Quick DO Work Phone: [facility] 06-25-2023 11:23-0400 Heart rate 73 /min Sangeetha Quick DO Work Phone: [facility] [employer] 06-25-2023 11:23-0400 SaO2% (BldA) [Mass fraction] 97 % Sangeetha Quick DO Work Phone: [facility] 06-25-2023 11:23-0400 Systolic blood pressure 120 mm[Hg] Sangeetha Quick DO Work Phone: [facility] 05-30-2023 10:29-0500 Body height 149.9 cm Sangeetha Quick DO Work Phone: [facility] 05-30-2023 10:29-0500 Body mass index (BMI) [Ratio] 30.7 kg/m2 S[facility]etha [facility]as [facility] 05-30-2023 10:29-0500 Body temperature 98.1 [degF] [facility] Quick [facility] 05-30-2023 10:29-0500 Body weight 68.95 kg S[facility]etha Quick [facility] 05-30-2023 10:29-0500 Diastolic blood pressure 70 mm[Hg] Sangeetha Quick DO Work Phone: [facility] 05-30-2023 10:29-0500 Heart rate 71 /min Sangeetha Quick DO Work Phone: [facility] [employer] 05-30-2023 10:29-0500 SaO2% (BldA) [Mass fraction] 96 % Sangeetha Quick DO Work Phone: [facility] 05-30-2023 10:29-0500 Systolic blood pressure 120 mm[Hg] Sangeetha Quick DO Work Phone: [facility] [employer] Encounters Encounter Date Encounter Type Care Provider Facility Start: 09-10-2023 End: 09-10-2023 ambulatory KATHRYN CAGLE Not Available Start: 07-25-2023 End: 07-25-2023 ambulatory [facility] Start: 07-01-2023 End: 07-01-2023 ambulatory [facility] Start: 07-01-2023 End: 07-01-2023 Office outpatient visit 25 minutes Sangeetha Quick DO Work Phone: [facility] Internal [facility] - [facility] Comment on above: 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, bilateral (Primary Dx); Osteoarthritis of left shoulder, unspecified osteoarthritis type; Immunization due Start: 06-27-2023 End: 06-28-2023 ambulatory [facility] Start: 06-25-2023 End: 06-25-2023 ambulatory [facility] Start: 06-25-2023 End: 06-25-2023 Office outpatient visit 25 minutes Sangeetha Quick DO Work Phone: [facility] - [facility] Comment on above: Localized osteoarthr itis of left knee (Primary Dx) Start: 05-30-2023 End: 05-31-2023 ambulatory SANGEETHA QUICK [facility] Start: 05-30-2023 End: 05-30-2023 ambulatory [facility] Amb[facility] Start: 05-30-2023 End: 05-30-2023 Office outpatient visit 25 minutes Sangeetha Quick DO Work Phone: [facility] Internal [facility] - Family Medicine Comment [...] Adult BMI Screening Adult BMI Screen ing [facility] Start: 06-30-2024 Depression Screening Depression Scre ening [facility] Start: 06-30-2024 Fall Risk Screening Fall Risk Screen ing [facility] Start: 06-30-2024 Tobacco Screening Tobacco Screening [facility] Start: 06-24-2024 Adult BMI Screening Adult BMI Screen ing [facility] Start: 06-24-2024 Depression Screening Depression Scre ening [facility] Start: 06-24-2024 Fall Risk Screening Fall Risk Screen ing [facility] Start: 06-24-2024 Tobacco Screening Tobacco Screening [facility] Start: 05-30-2024 Adult BMI Screening Adult BMI Screen ing [facility] Start: 05-30-2024 Depression Screening Depression Scre ening [facility] Start: 05-30-2024 Fall Risk Screening Fall Risk Screen ing [facility] Start: 05-30-2024 Tobacco Screening Tobacco Screening [facility] Start: 05-21-2024 DTaP,Tdap and Td Vaccines (2 - Td or Tdap) DTaP,Tdap and Td Vaccines (2 - Td or Tdap) [facility] Start: 12-03-2023 End: 12-03-2023 Patient encounter procedure 12/03/2023 2:00 PM EDT Office Visit [facility] [address] [place] [address] [facility] Start: 11-28-2023 Medicare Annual Well ness Visit Medicare Annual Wellness Visit [facility] Start: 07-14-2023 Influenza vaccination Influenza Vacc ine [facility] Comment on above: Postponed from 12/14 (Vaccine Not Available) Start: 06-25-2023 End: 06-24-2024 XR Knee - left 3 Views X-ray knee left 3 views Imaging Routine Localized osteoarthritis of left knee Expected: 06/25/2023, Expires: 06/24/2024 [facility] Work Phone: Comment on above: Expected: 06/25/2023 , Expires: 06/24/2024 Start: 12-14-2022 COVID-19 Vaccine ( season) COVID-19 Vaccine ( season) [facility] Start: 12-14-2022 Influenza vaccination Influenza Vacc ine [facility] Start: 12-20-1997 Administration of varicella zoster vaccine Zoster (Shingles) Vaccine (1 of 2) [facility] Start: 12-20-1965 Adult BMI Follow Up Plan Adult BMI F ollow Up Plan [facility] Immunizations Immunization Date Immunization Notes Care Provider Dima landon 04-24-2017 Influenza, injectabl e, Madin [place] [place] Canine Kidney, preservative free, quadrivalent Sangeetha Quick DO Work Phone: [facility] 04-24-2017 influenza virus vacc ine, unspecified formulation Sangeetha Quick DO Work Phone: [facility] 03-15-2016 pneumococcal polysaccharide vaccine, 23 valent Sangeetha Quick DO Work Phone: [facility] 01-11-2016 influenza, seasonal, injectable, preservative free Sangeetha Quick DO Work Phone: [facility] 01-05-2015 influenza, seasonal, injectable, preservative free Sangeetha Quick DO Work Phone: [facility] 01-05-2015 pneumococcal conjuga te vaccine, 13 valent Sangeetha Quick DO Work Phone: [facility] 05-21-2014 pneumococcal polysaccharide vaccine, 23 valent Sangeetha Quick DO Work Phone: [facility] 05-21-2014 tetanus toxoid, redu mary diphtheria toxoid, and acellular pertussis vaccine, adsorbed Sangeetha Quick DO Work Phone: [facility] Payers Date Payer Category Payer Private Health Insurance [employer] [id number] 2021-Present [phone] [address] [address] [place] [address] [id number] 2010 Medicare MEDICARE MEDICAR E PART A & B [id number] 2010-Present [phone] [address] [place] [address] [id number] 1959 Medicare [id number] 1959 Private Health Insurance CLI [id number] 1945 Unknown [id number] [id number] .2.593 1947 Unknown [id number] 2.16.840.1.181037.3.579 .2.593 1947 Unknown [id number] 2.16.840.1.740641.3.579 .2.593 1947 Unknown [id number] 2.16.840.1.183866.3.579 .2.593 1947 Unknown [id number] 2.16.840.1.561995.3.579 .2.593 1947 Unknown [id number] 2.16.840.1.264531.3.579 .2.593 1947 Unknown [id number] 2.16.840.1.390110.3.579 .2.593 1947 Unknown [id number] 2.16.840.1.126240.3.579 .2.593 1947 Unknown [id number] 2.16840.1.967911.3.579 .2.593 1947 Unknown [id number] 2.16.840.1.418163.3.579 .2.593 1947 Unknown [id number] 2.16840.1.334256.3.579 .2.593 1947 Unknown [id number] 2.16840.1.816627.3.579 .2.593 1947 Unknown [id number] 2.840.1.251965.3.579 .2.593 1947 Unknown [id number] 2.840.1.744320.3.579 .2.593 1947 Unknown [id number] 2.840.1.682349.3.579 .2.593 1947 Unknown [id number] 2.840.1.549573.3.579 .2.1286 1947 Unknown [id number] 2.840.1.154653.3.579 .2.128 1947 Unknown [id number] 2.16840.1.578997.3.579 .2.128 1947 Unknown [id number] 2.16840.1.766878.3.579 .2.128 1947 Unknown [id number] 2.16840.1.548462.3.579 .2.128 1947 Unknown [id number] 2.16840.1.337233.3.579 .2.128 1945 Unknown [id number] 2.16840.1.882371.3.579 .2.1259 Social History Date Type Detail Facility Start: [facility] Start: 05-14-2022 Tobacco use and exposure Smoke less tobacco non-user [facility] Start: 05-30-2023 End: 07-01-2023 Alcohol intake Current non-drinker of alcohol (finding) [facility] Start: 11-27-2022 End: 07-01-2023 History of Social function [facility] Start: 11-27-2022 End: 07-01-2023 Social connection and isolation panel [facility] Do you belong to any clubs or organizations such as sikh groups, unions, fraternal or athletic groups, or school groups? Yes [facility] Are you now , , , , never or living with a partner? [facility] How often to you hav e a drink containing alcohol? Never [facility] How many standard dr inks containing alcohol do you have on a typical day? Patient does not drink [facility] How hard is it for y ou to pay for the very basics like food, housing, medical care, and heating Hard [facility] Do you feel stress - tense, restless, nervous, or anxious, or unable to sleep at night because your mind is troubled all the time - these days [OSQ] Very much [facility] Start: 1945 Sex Assigned At Not on file P [facility] Clinical Notes 09-07-2021 to 07-01-2023 Sangeetha Quick, [...] Testing No results found. Sangeetha Quick DO., [facility] Office: [phone] documented in this encounter [facility] 06-25-2023 History of Present illness Narrative [...] Testing No results found. Sangeetha Quick DO., [facility] Office: [phone] documented in this encounter [facility] 05-30-2023 History of Present illness Narrative IM PROGRESS NOTE Patient - Rach Munroe Age - 77 [facility] 1945 [id number] ASSESSMENT & PLAN 1. Hypothyroidism, unspecified type [...] [facility] into a memory unit at a [facility], and a son was found at home. [...] Testing No results found. Sangeetha Quick DO., [facility] Office: [phone] documented in this encounter [facility] 07-19-2022 Note CONSULTATION CONSULTATION DATE: 07/19/2022 TO: [...] our patients to inform us about any [id number] medications or herbal remedies/nutritional supplements/alternative remedies. 2. [...] options with their primary care provider. [facility] 04-26-2022 Note CONSULTATION CONSULTATION DATE: 04/26/2022 [...] three months' time unless otherwise indicated. [facility] 03-27-2022 Note CONSULTATION CONSULTATION DATE: 03/27/2022 [...] to proceed. CC: Sangeetha Quick D.O. [facility] 02-08-2022 Note CONSULTATION CONSULTATION DATE: 02/08/2022 [...] The patient agrees with this plan. [facility] 01-11-2022 Note CONSULTATION CONSULTATION DATE: 01/11/2022 [...] Patient would like to move forward. [facility] 12-14-2021 Note CONSULTATION PROCEDURE DATE: 12/14/2021 [...] be followed up in the office. [facility] 12-14-2021 Note CONSULTATION CONSULTATION DATE: 12/14/2021 [...] well, which she does consent to. [facility] 09-07-2021 Note CONSULTATION CONSULTATION DATE: 09/07/2021 [...] in the fall. She was referred to [facility] Neuro[facility] and is planning to have surgery in the fall following harvest season. 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 Patient feels that she can make it through the summer with a combination of her medication and occasional trigger point injections. 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 She uses heat [...] by: MARIELY YUAN . 09/14/2021 16:04:00 [facility] Evaluation note Diagnosis Hypothyroidism, unspecified type- Primary Cobalamin deficiency Other B-complex deficiencies Hyperlipidemia, unspecified hyperlipidemia type Osteoarthritis of left shoulder, unspecified osteoarthritis type [facility] Localized osteoarthritis of left knee- Primary [facility] Diagnosis Primary osteoarthritis of knees, bilateral- Primary Osteoarthritis of left shoulder, unspecified osteoarthritis type Immunization due documented [facility] filedocumented in this encounter [facility] filedocumented in [facility] encounter [facility]* Attachments The following attachments cannot be sent through Care Everywhere. * Osteoarthritis Discharge Instructions ([place]) [facility] Purpose Family History No [...] DATE CREATED AUTHOR AUTHOR'S ORGANIZ ATION 08/29/2022 [facility] DATE CREATED AUTHOR AUTHOR'S ORGANIZ ATION 06/01/2023 [facility] DATE CREATED AUTHOR AUTHOR'S ORGANIZ ATION 06/28/2023 [facility] DATE CREATED AUTHOR AUTHOR'S ORGANIZ ATION 07/26/2023 [facility] DATE CREATED AUTHOR AUTHOR'S RICHMOND ATION 09/10/2023 [facility] EPIC Reason for Visit (unrecogniz ed section and content) Reason Comments Thyroid Problem Hyperlipidemia Reason Comments Knee Pain Left knee Reason Comments lt knee injury, now both hurting Feeling better. Pain level is at a 6 Care Teams (unrecognized sec tion and content) Internal Medicine Nurse Practitioner Relationship Specialty Start Date End Date Sangeetha Quick DO [address] [place] [address] PCP - General 11/09/13 Internal Medicine Nurse Practitioner Relationship Specialty Start Date End Date Sangeetha Quick DO [address] [place] [address] PCP - General 11/09/13 Internal Medicine Nurse Practitioner Relationship Specialty Start Date End Date Sangeetha Quick DO [address] [place] [address] PCP - General 11/09/13 FOR RECORDS PERTAINING [...] BE BASED ON THE PRIMARY CLINICAL RECORDS. [facility] [employer] [facility]. provides no warranty or guarantee of the accuracy or completeness of information in this document.
--- NOTE | 2023-11-07 10:04 | P.CN_ITS ---
Consult Note: HPI Data of Consult Patient: known to practice within the last 3 years Requesting Physician: Rosina Fleming NP Primary Care Provider: SANGEETHA QUICK Consult Narrative Reason for consult: f/u Narrative: Rach Hernandez a pleasant 77 year old female presents for evaluation and management of chronic bilateral knee pain/OA. Tolerating tylenol arthritis, tizanidine 2mg BID PRN, and tramadol 50mg BID PRN well without side effects, finds mild benefit. Recently underwent right knee durolane injection with 50% improvement ongoing, now reporting 50% improvement in left knee pain. continues to use lidocaine patches for low back pain. ropinorole 0.25 HS has been helpful for RLS but she has ran out. cc:: CC: Rosina Fleming NP Review of Systems ROS Status of ROS 10 or more systems reviewed and unremark able except as noted in history and below Musculoskeletal Reports: back pain and joint pain Meds Home Medications and Allergies Home Medications ?Medication ?Instructions ?Recorded ?Confirmed ?Type acetaminophen 325 mg tablet (Aphen) 650 mg PO Q6H PRN pain 10/10/22 10/29/23 History levothyroxine 50 mcg capsule 50 mcg PO DAILY 10/11/22 10/29/23 History ropinirole 0.25 mg tablet 0.25 mg PO DAILY 10/11/22 10/29/23 History rosuvastatin 10 mg tablet 10 mg PO DAILY 10/11/22 10/29/23 History tizanidine 2 mg tablet 2 mg PO BID PRN spasm 10/11/22 10/29/23 History tramadol 50 mg tablet 50 mg PO BID 10/11/22 10/29/23 History zoledronic acid 5 mg/100 mL in ea IV .1 YEAR 01/10/23 History mannitol 5 %-water intravenous piggybck (Reclast) cholecalciferol (vitamin D3) 1,250 50,000 unit PO QWEEK 09/11/23 10/29/23 History mcg (50,000 unit) capsule ergocalciferol (vitamin D2) 1,250 1,250 mcg PO QWEEK 09/11/23 10/29/23 History mcg (50,000 unit) capsule estradiol 0.01% (0.1 mg/gram) 0.25 appful vaginal DAILY PRN 09/11/23 10/29/23 History vaginal cream itching Allergies Allergy/AdvReac Type Severity Reaction Status Date / Time aspirin Allergy Hives Verified 10/29/23 07:52 codeine Allergy Hives Verified 10/29/23 07:52 iodine Allergy Blister Verified 10/29/23 07:52 latex Allergy Blister Verified 10/29/23 07:52 pregabalin [From Lyrica] Allergy Abdominal Verified 10/29/23 07:52 Pain Sulfa (Sulfonamide Allergy Abdominal Verified 10/29/23 07:52 Antibiotics) Pain Exam Constitutional Documenting provider has reviewed patient's vital signs: yes Common normals: no apparent distress, oriented x3, healthy appearing, alert and well nourished General appearance: cooperative HENMT Common normals: normocephalic, hearing grossly normal bilaterally and moist oral mucous membranes Head and scalp: normocephalic Eye Common normals: PERRL Pupil: PERRL Neck & C-Spine Common normals: full ROM General: normal visual inspection Other: pain with ROM positive spurlings left intermittent radiculopathy to left arm Chest Common normals: inspection of chest normal Respiratory Common normals: normal respiratory effort, no retractions and no use of accessory muscles Back & Pelvis Thoracic spine/upper back: pain with ROM Lumbar spine/lower back: lumbar ROM normal and pain with ROM Sacroiliac joints: SI joint(s) abnormal Other: pain with jose l, FADER, ga[place]. Right>L Extremity Common normals: normal to inspection and full ROM Right lower extremity: knee joint Left lower extremity: knee joint Left knee: inspection (mild edema noted, no discoloration or redness), palpation (tenderness most significant over MCL and meniscus), ROM (limited due to pain) and special tests Other: moderate crepitus to bilateral knees, pain with medial and lateral stress testing, enlarged diameters, mild edema to bilateral knees. no instability noted Neuro Common normals: oriented x3, CN's II-XII intact bilaterally, moves all extremities, no focal motor deficits, no sensory deficits noted and deep tendon reflexes 2+ bilaterally Sensorium/orientation: alert Motor exam: strength 5/5 throughout and no movement abnormalities noted Psych Common normals: mental status grossly normal, thought process normal, cooperative, affect normal, speech normal and activity/motor behavior normal Speech: normal speech Thought process: normal thought process Results Additional Findings Additional findings: If on a controlled substance or opioids, I have checked an [place]ARRS report on this patient and there are no aberrancies noted in the prescribing history.??If on a controlled substance or opioid a drug screen was completed and reviewed within the last year, and if there has not been a drug screen completed we ordered one today to monitor higher risk, state monitored pain medication use. As part of providing excellent, safe, comprehensive care, the following was completed at our patient's visit: 1. A medication reconciliation and review to ensure accurate knowledge of current/active medications, including asking our patients to inform us about any [id number] medications or herbal remedies/nutritional suppl ements/alternative remedies. 2. A review to specifically ensure our patients have had annual screening for screening for depression, screening for tobacco use, and screening for unhealthy alcohol use. For concerning screenings had a discussion with the patient, provided patient education, and recommended follow-up with primary care provider when appropriate. If patient noted with a risk of falling, they received education on strength, gait, and balance training to prevent future risk of falling. Assessment and Plan Assessment and Plan (1) Osteoarthritis of right knee: (2) Osteoarthritis of left knee: (3) Myofascial pain: (4) Lumbar spondylosis: (5) Chronic pain syndrome: (6) Chronic prescription opiate use: Assessment and Plan: I feel these medications are improving the patient's quality of life and allow them to tolerate activities of daily living as well as participate in recreational activity.? The patient does not report intolerable side effects. The patient is NOT opioid naive and non-pharmacologic and non-opioid treatment has failed to significantly relieve the patient's pain and improve functionality. The patient has a diagnosis that is related to a somatic or visceral pain etiology. ? ?? I reviewed with the patient the potential risks and side effects with the use of? opioid medications including but not limited to respiratory depression,? sedation, and even . I verified the patient has access to naloxone should? these effects occur. I advised the patient to avoid the use of any other? sedation substances including alcohol, THC, and benzodiazepines while? taking opioid medications due to the risk of compounding side effects and? detrimental outcomes. I reviewed the QUANTITATIVE RESEARCHER, pain treatment agreement, urine? drug screen, and opioid start talking forms. The patient was advised to let? their family know they had Naloxone in case they would need to administer? the medication.? ?? A drug screen was completed within the last year, and no aberrancies were noted regarding their use of controlled substances. The patient understands they are subject to the terms and conditions of the pain contract that they have signed. ? ?? I have checked an OARRS report on this patient today and there are no aberrancies noted in the prescribing history.? (7) Restless leg syndrome: Plan increase tramadol 50-100mg BID PRN moderate to severe pain refill and continue ropinirole 0,25mg HS for RLS continue zanaflex 2mg BID PRN pain/spasms continue PRN tylenol not to exceed 3000mg day f/u 3 months, sooner if needed
== END 2023-11-07 09:50 | disposition home or self-care (01) ==
LOC: PM 09:49
PROVIDERS: PCP Internal Medicine; Visit Provider Nurse Practitioner
DX: M17.0 Bilateral primary osteoarthritis of knee (principal); M79.18 Myalgia, other site; M47.816 Spondylosis without myelopathy or radiculopathy, lumbar region; G89.4 Chronic pain syndrome; Z79.891 Long term (current) use of opiate analgesic; G25.81 Restless legs syndrome
CPT/HCPCS: G0463

== ENCOUNTER 2023-12-25 08:01 | Outpatient (OUT) | payer MEDICARE, SELFPAY ==
--- OUTSIDE RECORDS SUMMARY | 2023-12-25 08:06 | XMS_ITS | CCD ---
Author Organization [facility] Care Team Providers Care Clothes Marker Name Role Phone LAKSHMIPATHY, NARENDRANATH Attending Unava [...] YUHAS, DR VIVAS Primary Care Unavailable LAKSHMIPATHY, NARENDBHUMIATH Admitting Unava ilable YUHAS, DR VIVAS Primary Care Unavailable LAKSHMIPATHY, TOÑA Attending Unava ilable BARRAZA ., DR YINKA Mon Attending Unavailable [...] Mon Consulting Unavailable BARRAZA ., DR YINKA Mno Attending Unavailable BARRAZA ., DR YINKA Mon [...] ilable YuhaSangeetha mon DO Primary Care Provider [phone] SANGEETHA QUICK Referring Unavailable YUHAS, SANGEETHA L Primary Care Unavailable ARRONHAS, SANGEETHA L Attending Unavailable YUHAS, SANGEETHA L Referring Unavailable YUHAS, SANGEETHA Gaston Primary Care Unavailable ARRONHAS, SANGEETHA L Attending Unavailable YUHAS, SANGEETHA L Referring Unavailable YUHAS, SANGEETHA L Primary Care Unavailable YUHAS, SANGEETHA L Attending Unavailable YUHAS, SANGEETHA L Referring Unavailable YUHAS, SANGEETHA L Primary Care Unavailable YUHAS, SANGEETHA L Attending Unavailable YUHAS, SANGEETHA L Referring Unavailable YUHAS, SANGEETHA L Primary Care Unavailable KATHRYN CAGLE Attending Unavailable YUHAS, SANGEETHA Gaston Attending Unavailable YUHAS, SANGEETHA L Referring Unavailable YUHAS, SANGEETHA L Primary Care Unavailable YUHAS, SANGEETHA L Primary Care Unavailable MARCIO BRIGGS Attending Unavailable Allergies Allergy Classification Reported Allergen(s) Allergy Type Date of Onset Reaction(s) Facility (1 source) Aspirin Drug Allergy [facility] Repository (4 sources) Codeine; Translations: [CODEINE] Drug Allergy 8 [facility] Repository (1 source) Etodolac Drug Allergy [facility] Rep[facility] (4 sources) Iodine; Translations: [IODINE] Drug Allergy 8 [facility] Repository (4 sources) Latex; Translations: [LATEX] Drug allergy (disorder) 3 [facility] Repository (1 source) pregabalin Drug Allergy [facility] Rep[facility] (1 source) Sulfonamides (Antibiotic) Drug allergy (disorder) [facility] Repository (6 sources) Aspirin; Translations: [ASPIRIN, BUFFERED] Drug Allergy 8 [facility] (3 sources) Codeine Drug Allergy 8 Rash [facility] (6 sources) Etodolac; Translations: [ETODOLAC] Drug Allergy 3 [facility] (3 sources) Iodine Drug Allergy 8 Anaphylaxis [facility] (3 sources) Latex Propensity to adverse reactions to drug 3 [facility] (6 sources) Penicillins; Translations: [PENICILLINS] Propensity to adverse reactions to drug 8 [facility] (6 sources) Sulfonamides (Antibiotic); Translations: [SULFA (SULFONAMIDE ANTIBIOTICS)] Propensity to adverse reactions to drug 8 Rash [facility] Medications Current Medications Medication Drug Class(es) Dates [...] Active Problems Problem Classification Problem Date Documented Da te Episodic/Chronic Anxiety disorders (1 source) Anxiety disorder, unspecified; Translations: [ANXIETY DISORDER UNSPECIFIED] Onset: 3 Chronic Disorders of lipid metabolism (7 sources) Hyperlipidemia; Translations: [Hyperlipidemia, unspecified] Onset: 1 05-30-2023 Chronic Immunizations and screening for infectious disease (1 source) Immunization due; Translations: [Encounter for immunization] 07-01-2023 Episodic Intestinal infection (1 source) Viral intestinal infection, unspecified; Translations: [Viral intestinal infection, unspecified] Onset: 4 Episodic Mood disorders (3 sources) Depressive disorder; Translations: [Depressive disorder] Onset: 8 12-15-2020 Chronic Nausea and vomiting (2 sources) Vomiting; Translations: [Nausea] Onset: 4 Episodic Osteoarthritis (10 sources) Osteoarthritis of joint of left shoulder region; Translations: [Primary osteoarthritis, left shoulder] Onset: 1 05-30-2023 Chronic Osteoporosis (3 sources) Senile osteoporosis; Translations: [Age-related osteoporosis without current pathological fracture] Onset: 3 12-31-2022 Chronic Other connective tissue disease (1 source) Other muscle spasm; Translations: [OTHER MUSCLE SPASM] Onset: 3 Episodic Other gastrointestinal disorders (1 source) Diarrhea Onset: 4 Episodic Other hereditary and degenerative nervous system conditions (1 source) Restless legs syndrome; Translations: [RESTLESS LEGS SYNDROME] Onset: 2 Chronic Other nervous system disorders (5 sources) Other specified mononeuropathies; Translations: [OTHER SPECIFIED MONONEUROPATHIES] Onset: 3 Chronic Other nervous system disorders (4 sources) Other specified mononeuropathies of bilateral lower limbs; Translations: [OTH SPEC MONONEUROPATH MARCIANO LOW LIMB] Onset: 3 Chronic Other nervous system disorders (5 sources) Other chronic pain; Translations: [OTHER CHRONIC PAIN] Onset: 2 Chronic Other non-traumatic joint disorders (4 sources) Other specific arthropathies, not elsewhere classified, left shoulder; Translations: [OTH SPEC ARTHROPATHIES NEC LT SHLDR] Onset: 3 Chronic Other non-traumatic joint disorders (1 source) Knee pain Onset: 4 Episodic 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 sources) Cystocele; Translations: [Cystocele, unspecified] Onset: 1 12-15-2020 Chronic Residual codes; unclassified (3 sources) Obstructive sleep apnea syndrome; Translations: [Obstructive sleep apnea (adult) (pediatric)] Onset: 1 12-15-2020 Chronic Spondylosis; intervertebral disc disorders; other back problems (8 sources) Intervertebral disc disorders with myelopathy, lumbar region; Translations: [Other spondylosis with radiculopathy, lumbar region] Onset: 8 Chronic Thyroid disorders (6 sources) Hypothyroidism; Translations: [Hypothyroidism, unspecified] Onset: 1 05-30-2023 Chronic Unclassified (1 source) LOW BACK PAIN, UNSPECIFIED; Translations: [LOW BACK PAIN, UNSPECIFIED] Onset: 2 Unclassified (1 source) Injection Onset: 4 Unclassified (1 source) lt knee injury, now both hurting Onset: 4 Unclassified (1 source) Thyroid Problem Onset: 4 Unclassified (1 source) vomiting, diarrhea Onset: 4 Past or Other Problems Problem Classification Problem [...] Test Name Value Interpretation Reference Range Facility CBC AND AUTO DIFFon 12-21-19 24 ABSOLUTE BASOPHIL 0.0 X10E9/L Normal 0.0-0.2 [facility] Comment on above: Performed By: #### 3 040-3, CBCA, CMP #### [facility] ([id number]) [address] [place] [address] 31380 ABSOLUTE NEUTROPHIL 7.4 X10E9/L High 1.5-6.6 [facility] Comment on above: Performed By: #### 3 040-3, CBCA, CMP #### [facility] ([id number]) [address] [place] [address] 70372 Basophils/100 WBC (Bld) 0.3 % Normal [facility] Comment on above: Performed By: #### 3 040-3, CBCA, CMP #### [facility] ([id number]) [address] [place] [address] 05930 Eosinophils (Bld) [#/Vol] 0.1 10*3/uL Normal 0.0-0.4 [facility] Comment on above: Performed By: #### 3 040-3, CBCA, CMP #### [facility] ([id number]) [address] [place] [address] 50407 Eosinophils/100 WBC (Bld) 0.7 % Normal [facility] Comment on above: Performed By: #### 3 040-3, CBCA, CMP #### [facility] ([id number]) [address] [place] [address] 91649 Erythrocyte distribution width (RBC) [Ratio] 15.3 % High 11.5-15.0 [facility] Comment on above: Performed By: #### 3 040-3, CBCA, CMP #### [facility] ([id number]) [address] [place] [address] 19998 Hematocrit (Bld) [Volume fraction] 35.6 % Normal 35-47 [facility] Comment on above: Performed By: #### 3 040-3, CBCA, CMP #### [facility] ([id number]) [address] [place] [address] 57589 Hemoglobin (Bld) [Mass/Vol] 11.8 g/dL Normal 11.7-15.5 [facility] Comment on above: Performed By: #### 3 040-3, CBCA, CMP #### [facility] ([id number]) [address] [place] [address] 98203 Lymphocytes (Bld) [#/Vol] 1.1 10*3/uL Normal 1.0-3.5 [facility] Comment on above: Performed By: #### 3 040-3, CBCA, CMP #### [facility] ([id number]) [address] [place] [address] 76717 Lymphocytes/100 WBC (Bld) 11.6 % Normal [facility] Comment on above: Performed By: #### 3 040-3, CBCA, CMP #### [facility] ([id number]) [address] [place] [address] 04955 MCH (RBC) [Entitic mass] 27.8 pg Normal 27-34 [facility] Comment on above: Performed By: #### 3 040-3, CBCA, CMP #### [facility] ([id number]) [address] [place] [address] 40268 MCHC (RBC) [Mass/Vol] 33.1 g/dL Normal 32-36 [facility] Comment on above: Performed By: #### 3 040-3, CBCA, CMP #### [facility] ([id number]) [address] [place] [address] 57529 MCV (RBC) [Entitic vol] 84 fL Normal 80-100 [facility] Comment on above: Performed By: #### 3 040-3, CBCA, CMP #### [facility] ([id number]) [address] [place] [address] 50377 Monocytes (Bld) [#/Vol] 0.6 10*3/uL Normal 0-0.9 [facility] Comment on above: Performed By: #### 3 040-3, CBCA, CMP #### [facility] ([id number]) [address] [place] [address] 56521 Monocytes/100 WBC (Bld) 6.4 % Normal [facility] Comment on above: Performed By: #### 3 040-3, CBCA, CMP #### [facility] ([id number]) [address] [place] [address] 41842 Neutrophils/100 WBC (Bld) 81.0 % Normal [facility] Comment on above: Performed By: #### 3 040-3, CBCA, CMP #### [facility] ([id number]) [address] [place] [address] 48857 Platelet mean volume (Bld) [Entitic vol] 8.9 fL Normal 7-12 [facility] Comment on above: Performed By: #### 3 040-3, CBCA, CMP #### [facility] ([id number]) [address] [place] [address] 00371 Platelets (Bld) [#/Vol] 255 10*3/uL Normal 150-450 [facility] Comment on above: Performed By: #### 3 040-3, CBCA, CMP #### [facility] ([id number]) [address] [place] [address] 18111 RBC COUNT 4.24 X10E12/L Normal 3.80-5.20 [facility] Comment on above: Performed By: #### 3 040-3, CBCA, CMP #### [facility] ([id number]) [address] [place] [address] 23469 WBC (Bld) [#/Vol] 9.1 10*3/uL Normal 4.0-11.0 [facility] Comment on above: Performed By: #### 3 040-3, CBCA, CMP #### [facility] ([id number]) [address] [place] [address] 52978 COMPREHENSIVE METABOLIC PANE Ulices 2023 Albumin [Mass/Vol] 4.2 g/dL Normal 3.2-5.3 [facility] Comment on above: Performed By: #### 3 040-3, CBCA, CMP #### [facility] ([id number]) [address] [place] [address] 04549 ALP [Catalytic activity/Vol] 63 U/L Normal 39-130 [facility] Comment on above: Performed By: #### 3 040-3, CBCA, CMP #### [facility] ([id number]) [address] [place] [address] 29338 ALT [Catalytic activity/Vol] 14 U/L Normal 0-31 [facility] Comment on above: Performed By: #### 3 040-3, CBCA, CMP #### [facility] ([id number]) [address] [place] [address] [place] [address] Anion gap [Moles/Vol] 7 mmol/L Normal 5-15 [facility] Comment on above: Performed By: #### 3 040-3, CBCA, CMP #### [facility] ([id number]) [address] [place] [address] 61520 AST [Catalytic activity/Vol] 20 U/L Normal 0-41 [facility] Comment on above: Performed By: #### 3 040-3, CBCA, CMP #### [facility] ([id number]) [address] [place] [address] 41343 Bilirubin [Mass/Vol] 0.5 mg/dL Normal 0.3-1.2 [facility] Comment on above: Performed By: #### 3 040-3, CBCA, CMP #### [facility] ([id number]) [address] [place] [address] 92861 Calcium [Mass/Vol] 8.5 mg/dL Normal 8.5-10.5 [facility] Comment on above: Performed By: #### 3 040-3, CBCA, CMP #### [facility] ([id number]) [address] [place] [address] 08342 Chloride [Moles/Vol] 105 mmol/L Normal 98-109 [facility] Comment on above: Performed By: #### 3 040-3, CBCA, CMP #### [facility] ([id number]) [address] [place] [address] 74321 CO2 [Moles/Vol] 22 mmol/L Normal 22-32 [facility] Comment on above: Performed By: #### 3 040-3, CBCA, CMP #### [facility] ([id number]) [address] [place] [address] 54474 Creatinine [Mass/Vol] 0.64 mg/dL Normal 0.40-1.00 [facility] Comment on above: Result Comment: METH OD TRACEABLE TO IDMS STANDARD Performed By: #### 3 040-3, CBCCelestina, CMP #### [facility] ([id number]) [address] [place] [address] 30114 eGFR (CKD-EPI) NON-RACE DEPENDENT >90 Normal >59 [facility] Comment on above: Result Comment: Reported eGFR is based on the CKD-EPI 2020 equation that does not use a race coefficient. Performed By: #### 3 040-3, CBCA, CMP #### [facility] ([id number]) [address] [place] [address] 06570 Glucose [Mass/Vol] 123 mg/dL High 65-99 [facility] Comment on above: Performed By: #### 3 040-3, CBCA, CMP #### [facility] ([id number]) [address] [place] [address] 97708 Potassium [Moles/Vol] 3.8 mmol/L Normal 3.5-5.0 [facility] Comment on above: Performed By: #### 3 040-3, CBCA, CMP #### [facility] ([id number]) [address] [place] [address] 40936 Protein [Mass/Vol] 7.3 g/dL Normal 6.0-8.0 [facility] Comment on above: Performed By: #### 3 040-3, CBCA, CMP #### [facility] ([id number]) [address] [place] [address] 95563 Sodium [Moles/Vol] 134 mmol/L Normal 134-146 [facility] Comment on above: Performed By: #### 3 040-3, CBCA, CMP #### [facility] ([id number]) [address] [place] [address] 07017 Urea nitrogen [Mass/Vol] 18 mg/dL Normal 5-27 [facility] Comment on above: Performed By: #### 3 040-3, CBCA, CMP #### [facility] ([id number]) [address] [place] [address] 94713 LIPASEon 2023 Lipase [Catalytic activity/Vol] 26 U/L Normal 17-40 [facility] Comment on above: Performed By: #### 3 040-3, CBCA, CMP #### [facility] ([id number]) [address] [place] [address] 84562 SARS/FLU A+B/RSV by NAAT/Mol ecularon 2023 SARS/FLU A+B/RSV by NAAT/Molecular FLU A PCR Negative (qualifier value) FLU B PCR Negative (qualifier value) RSV by PCR Negative (qualifier value) SARS CoV 2 Not detected (qualifier value) NOTE The Xpert Xpress SARS-CoV-2/Flu/RSV Plus test is a rapid, multiplexed real-time RT-PCR test intended for the simultaneous qualitative detection and differentiation of SARS-CoV-2, influenza A, influenza B and respiratory syncytial virus (RSV) viral RNA from individuals suspected of respiratory viral infection consistent with COVID-19 by their healthcare provider. This test has not been validated in asymptomatic patients. The Xpert Xpress SARS-CoV-2 test is intended for use by qualified and trained operators who are performing tests using either GeneYelloYello DX or Endosense systems and is limited to laboratories that meet the CLIA requirements to perform high and moderate complexity tests. The Xpert Xpress SARS-CoV-2/Flu/RSV Plus is only for use under the Food and Drug Administration's Emergency Use Authorization. Results are for the simultaneous detection and differentiation of SARS-CoV-2, influenza A, influenza B and RSV nucleic acids in clinical specimens. SARS-CoV-2, influenza A, influenza B and RSV RNA identified by this test are generally detectable in upper respiratory samples during the acute phase of infection. Positive results are indicative of the presence of the identified virus, but do not rule out bacterial infection or co-infection with other pathogens not detected by this test. Clinical correlation with patient history and other diagnostic information is necessary to determine patient infection status. The agent detected may not be the definite cause of disease. Negative results do not preclude SARS-CoV-2, influenza A, influenza B and RSV infection and should not be used as the sole basis for treatment or other patient management decisions. Negative results must be combined with clinical observations, patient history and epidemiological information. An Invalid result may occur with specimen-associated inhibition unable to be resolved with specimen repeat. Fact Sheet for Healthcare Providers: https://www.fda.gov/me yg/793306/download Fact Sheet for Patients: https://www.fda.gov/me yg/715153/download Normal [facility] Comment on above: Performed By: #### C OVFLR #### [facility] ([id number]) [address] [place] [address] 22850 URN MACROSCOPIC NURon 2023 BILIRUBIN STUART Negative Normal NEG [facility] Comment on above: Performed By: #### N UM #### [facility] ([id number]) [address] [place] [address] 50637 BLOOD/HGB STUART Small Abnormal NEG [facility] Comment on above: Performed By: #### N UM #### [facility] ([id number]) [address] [place] [address] [place] [address] GLUCOSE STUART Negative Normal NEG [facility] Comment on above: Performed By: #### N UM #### [facility] ([id number]) [address] [place] [address] [place] [address] KETONES STUART Trace Abnormal NEG [facility] Comment on above: Performed By: #### N UM #### [facility] ([id number]) [address] [place] [address] 97219 LEUKOCYTE ESTERASE STUART Trace Abnormal NEG [facility] Comment on above: Performed By: #### N UM #### [facility] ([id number]) [address] [place] [address] [place] [address] NITRITE STUART Negative Normal NEG [facility] Comment on above: Performed By: #### N UM #### [facility] ([id number]) [address] [place] [address] 60176 PH STUART 5.5 Normal 5.0-8.5 [facility] Comment on above: Performed By: #### N UM #### [facility] ([id number]) [address] [place] [address] 66736 PROTEIN STUART Negative Normal NEG [facility] Comment on above: Performed By: #### N UM #### [facility] ([id number]) [address] [place] [address] [place] [address] SPECIFIC GRAVITY STUART 1.015 Normal 1.003-1.035 [facility] Comment on above: Performed By: #### N UM #### [facility] ([id number]) [address] [place] [address] [place] [address] UROBILINOGEN STUART 0.2 eu/dL Normal <1.1 [facility] Comment on above: Performed By: #### N UM #### [facility] ([id number]) [address] [place] [address], [place] [address] XR KNEE LT 3 VWSon 4 XR KNEE LT 3 VWS XR KNEE LT 3 VWS CLINICAL INFORMATION: Localized osteoarthritis of left knee TECHNIQUE: XR KNEE LT 3 VWS 3 views left knee were obtained. Moderate tricompartmental osteoarthritic changes noted with osteophytes both medially and laterally. No joint effusion is seen. No evidence of fracture. IMPRESSION: Moderate tricompartmental osteoarthritis. Finalized by Jaylen Alejandro MD on 06/27/2023 1:51 PM Normal [facility] COMPREHENSIVE METABOLIC PANE Ulices 05-30-2023 Albumin [Mass/Vol] 4.3 g/dL Normal 3.2-5.3 [facility] Comment on above: Performed By: #### C KIMBERLY, 08378-8, THYR #### [facility] ([id number]) [address], [address] [place] [address] ALP [Catalytic activity/Vol] 63 U/L Normal 39-130 [facility] Comment on above: Performed By: #### C KIMBERLY, 94064-8, THYR #### [facility] ([id number]) [address], [address] [place] [address] ALT [Catalytic activity/Vol] 15 U/L Normal 0-31 [facility] Comment on above: Performed By: #### C KIMBERLY, 41424-0, THYR #### [facility] ([id number]) [address], [address] [place] [address] Anion gap [Moles/Vol] 6 mmol/L Normal 5-15 [facility] Comment on above: Performed By: #### C KIMBERLY, 53022-2, THYR #### [facility] ([id number]) [address], [address] [place] [address] AST [Catalytic activity/Vol] 15 U/L Normal 0-41 [facility] Comment on above: Performed By: #### Renee HARRIS 08870-6, THYR #### [facility] ([id number]) [address], [address] [place] [address] Bilirubin [Mass/Vol] 0.3 mg/dL Normal 0.3-1.2 [facility] Comment on above: Performed By: #### Renee HARRIS 89574-7, THYR #### [facility] ([id number]) [address], [facility] [address] [place] [address] Calcium [Mass/Vol] 9.1 mg/dL Normal 8.5-10.5 [facility] Comment on above: Performed By: #### Renee HARRIS 65111-3, THYR #### [facility] ([id number]) [address], [address] [place] [address] Chloride [Moles/Vol] 105 mmol/L Normal 98-109 [facility] Comment on above: Performed By: #### Renee HARRIS 10807-4, THYR #### [facility] ([id number]) [address] [place] [address] CO2 [Moles/Vol] 31 mmol/L Normal 22-32 [facility] Comment on above: Performed By: #### Renee HARRIS 66468-2, THYR #### [facility] ([id number]) [address], [address] [place] [address] Creatinine [Mass/Vol] 0.65 mg/dL Normal 0.40-1.00 [facility] Comment on above: Result Comment: METH OD TRACEABLE TO IDMS STANDARD Performed By: #### Renee HARRIS, 32426-3, THYR #### [facility] ([id number]) [address], [address] [place] [address] eGFR (CKD-EPI) NON-RACE DEPENDENT >90 Normal >59 [facility] Comment on above: Result Comment: Reported eGFR is based on the CKD-EPI 2020 equation that does not use a race coefficient. Performed By: #### C KIMBERLY 96367-1, THYR #### [facility] ([id number]) [address], [address] [place] [address] Glucose [Mass/Vol] 101 mg/dL High 65-99 [facility] Comment on above: Performed By: #### Divya Duran MP31-1, THYR #### [facility] ([id number]) [address], [address] [place] [address] Potassium [Moles/Vol] 4.4 mmol/L Normal 3.5-5.0 [facility] Comment on above: Performed By: #### Renee HARRIS 28732-8, THYR #### [facility] ([id number]) [address], [address] [place] [address] Protein [Mass/Vol] 6.9 g/dL Normal 6.0-8.0 [facility] Comment on above: Performed By: #### Renee HARRIS 34475-5, THYR #### [facility] ([id number]) [address], [address] [place] [address] Sodium [Moles/Vol] 142 mmol/L Normal 134-146 [facility] Comment on above: Performed By: #### Renee HARRIS 36244-1, THYR #### [facility] ([id number]) [address], [address] [place] [address] Urea nitrogen [Mass/Vol] 18 mg/dL Normal 5-27 [facility] Comment on above: Performed By: #### Renee HARRIS 39272-3, THYR #### [facility] ([id number]) [address], [address] [place] [address] Comprehensive metabolic pane ulices 05-30-2023 Albumin [Mass/Vol] 4.3 g/dL 3.2 - 5.3 g/dL Pr [facility] ALP [Catalytic activity/Vol] 63 U/L 39 - 130 U/L [facility] ALT No additional P-5'-P [Catalytic activity/Vol] 15 U/L 0 - 31 U/L [facility] Anion gap [Moles/Vol] 6 mmol/L 5 - 15 mmol/L [facility] AST [Catalytic activity/Vol] 15 U/L 0 - 41 U/L [facility] Bilirubin [Mass/Vol] 0.3 mg/dL 0.3 - 1.2 mg/dL [facility] Calcium [Mass/Vol] 9.1 mg/dL 8.5 - 10. 5 mg/dL [facility] Chloride [Moles/Vol] 105 mmol/L 98 - 109 mmol/L [facility] CO2 [Moles/Vol] 31 mmol/L 22 - 32 mmol/L [facility] [facility] Creatinine [Mass/Vol] 0.65 mg/dL 0.40 - 1.00 mg/dL [facility] Comment on above: METHOD TRACEABLE TO [facility] STANDARD eGFR (CKD-EPI)non-race dependent - PINF [facility] Comment on above: Reported eGFR is based on the CKD-EPI 2020 equation that does not use a race coefficient. Glucose [Mass/Vol] 101 mg/dL High 65 - 99 mg/dL [facility] Potassium [Moles/Vol] 4.4 mmol/L 3.5 - 5.0 mmol/L [facility] Protein [Mass/Vol] 6.9 g/dL 6.0 - 8.0 g/dL [facility] Sodium [Moles/Vol] 142 mmol/L 134 - 146 mmol/L [facility] Urea nitrogen [Mass/Vol] 18 mg/dL 5 - 27 mg/dL [facility] Lipid 1996 panelon 4 Cholesterol [Mass/Vol] 140 mg/dL Low 150 - 200 mg/dL [facility] Cholesterol in HDL [Mass/Vol] 55 mg/dL 39 - PINF mg/dL [facility] Comment on above: HDL <40 mg/dL - High Risk HDL > or = 40mg/dL- Desirable HDL >60 mg/dL - Negative Risk Cholesterol in LDL [Mass/Vol] 69 mg/dL NINF - 130 mg/dL [facility] Comment on above: LDL <100 mg/dL - Desirable LDL >160 mg/dL - High Risk Cholesterol in VLDL [Mass/Vol] 16 mg/dL 0 - 30 mg/dL [facility] Cholesterol.total/C holesterol in HDL [Mass ratio] 2.5 {ratio} 1.0 - 5.0 [facility] Triglyceride [Mass/Vol] 82 mg/dL 27 - 150 mg/dL [facility] Cholesterol [Mass/Vol] 140 mg/dL Low 150-200 [facility] Comment on above: Performed By: #### Renee HARRIS, 77056-2, THYR #### [facility] ([id number]) [address], [address] [place] [address] Cholesterol in HDL [Mass/Vol] 55 mg/dL Normal >39 [facility] Comment on above: Result Comment: HDL <40 mg/dL - High Risk HDL > or = 40mg/dL- Desirable HDL >60 mg/dL - Negative Risk Performed By: #### Renee HARRIS, 66519-0, THYR #### [facility] ([id number]) [address], [address] [place] [address] Cholesterol in LDL [Mass/Vol] 69 mg/dL Normal <130 [facility] Comment on above: Result Comment: LDL <100 mg/dL - Desirable LDL >160 mg/dL - High Risk Performed By: #### Renee HARRIS, 58177-5, THYR #### [facility] ([id number]) [address], [address] [place] [address] Cholesterol in VLDL [Mass/Vol] 16 mg/dL Normal 0-30 [facility] Comment on above: Performed By: #### Renee HARRIS, 01913-6, THYR #### [facility] ([id number]) [address], [address] [place] [address] CHOLESTEROL:HDL 2.5 Normal 1.0-5.0 [facility] Comment on above: Performed By: #### Renee HARRIS, 01714-3, THYR #### [facility] ([id number]) [address], [address] [place] [address] Triglyceride [Mass/Vol] 82 mg/dL Normal 27-150 [facility] Comment on above: Performed By: #### Renee HARRIS, 40076-5, THYR #### [facility] ([id number]) [address], [address] [place] [address] No Panel Informationon 05-30 Interpretation and review of laboratory results Abnormal [facility] THYROID PROFILEon 05-30-2023 Free T4 [Mass/Vol] 0.92 ng/dL Normal 0.61-1.60 [facility] Comment on above: Performed By: #### Renee HARRIS, 09547-9, THYR #### [facility] ([id number]) [address], [facility] [address] [place] [address] TSH 0.95 uIU/mL Normal 0.49-4.67 [facility] Comment on above: Performed By: #### Renee HARRIS, 24260-6, THYR #### [facility] ([id number]) [address], [address] [place] [address] Thyroid profile includes TSH FT4on 05-30-2023 Free T4 [Mass/Vol] 0.92 ng/dL 0.61 - 1. 60 ng/dL [facility] TSH Qn 0.95 m[IU]/L [facility] MRI SHOULDER LT WO CONon MRI [...] of articular cartilage. Electronically authenticated by: RONALDO RAGNEL Date: 2022-05-18 09:45 Normal [facility] METABOLIC PANE [facility] 08-29-2021 Albumin [Mass/Vol] 4.0 g/dL Normal 3.6-5.1 [facility] Comment on above: Performed By: #### 7 600, 927, 41719 #### [facility] of [place] [address] [employer]: Finn Akins MD Albumin/Globulin [Mass ratio] 1.9 {ratio} Normal 1.0-2.5 [facility] Comment on above: Performed By: #### 7 600, 927, 30928 #### [facility] of [address], [address] [place] [address] [employer]: Finn Akins MD ALP [Catalytic activity/Vol] 56 U/L Normal 37-153 [facility] Comment on above: Performed By: #### 7 600, 927, 04428 #### [facility] [place] [address] [employer]ic: Finn Akins MD ALT [Catalytic activity/Vol] 18 U/L Normal 6-29 [facility] Comment on above: Performed By: #### 7 600, 927, 25901 #### [facility] [place] [address] [employer] Mechanic: Finn Akins MD AST [Catalytic activity/Vol] 18 U/L Normal 10-35 [facility] Comment on above: Performed By: #### 7 600, 927, 08292 #### [facility] of [place] [address] [employer] Mechanic: Finn Akins MD Bilirubin [Mass/Vol] 0.4 mg/dL Normal 0.2-1.2 [facility] Comment on above: Performed By: #### 7 600, 927, 38544 #### [facility] [place] [address] [employer] Mechanic: Finn Akins MD BUN/CREATININE RATIO NOT APPLICABLE Normal 6-22 [facility] Comment on above: Performed By: #### 7 600, 927, 55675 #### [facility] [place] [address] [employer] Mechanic: Finn Akins MD Calcium [Mass/Vol] 8.8 mg/dL Normal 8.6-10.4 [facility] Comment on above: Performed By: #### 7 600, 927, 32151 #### [facility] [place] [address] [employer]ic: Finn Akins MD Chloride [Moles/Vol] 106 mmol/L Normal 98-110 [facility] Comment on above: Performed By: #### 7 600, 92, 85335 #### [facility] [place] [address] [employer]ic: Finn Akins MD CO2 [Moles/Vol] 30 mmol/L Normal 20-32 [facility] Comment on above: Performed By: #### 7 600, 927, 87083 #### [facility] [place] [address] [employer] Mechanic: Finn Akins MD Creatinine [Mass/Vol] 0.67 mg/dL Normal 0.60-0.93 [facility] Comment on above: Result Comment: For patients >49 years of age, the reference limit for Creatinine is approximately 13% higher for people identified as -[place]. Performed By: #### 7 600, 927, 35416 #### [facility] [place] [address] [employer]ic: Finn Akins MD eGFR NON-AFR. UZBEK 87 mL/min/1.73m2 Normal > OR = 60 [facility] Comment on above: Performed By: #### 7 600, 927, 61874 #### [facility] [place] [address] [employer]ic: Finn Akins MD GFR/1.73 sq M.predicted among blacks MDRD (S/P/Bld) [Vol rate/Area] 101 mL/min/{1.73_m2} Normal > OR = 60 [facility] Comment on above: Performed By: #### 7 600, 927, 37163 #### [facility] of [place] [address] [employer]ic: Finn Akins MD Globulin (S) [Mass/Vol] 2.1 g/dL Normal 1.9-3.7 [facility] Comment on above: Performed By: #### 7 600, 927, 13865 #### [facility] [place] [address] [employer]ic: Finn Akins MD Glucose [Mass/Vol] 96 mg/dL Normal 65-99 [facility] Comment on above: Result Comment: Fasting reference interval Performed By: #### 7 600, 927, 58353 #### [facility] [place] [address] [employer] Mechanic: Finn Akins MD Potassium [Moles/Vol] 3.9 mmol/L Normal 3.5-5.3 [facility] Comment on above: Performed By: #### 7 600, 927, 95796 #### [facility] [place] [address] [employer] Mechanic: Finn Akins MD Protein [Mass/Vol] 6.1 g/dL Normal 6.1-8.1 [facility] Comment on above: Performed By: #### 7 600, 927, 14677 #### [facility] [place] [address] [employer] Mechanic: Finn Akins MD Sodium [Moles/Vol] 143 mmol/L Normal 135-146 [facility] Comment on above: Performed By: #### 7 600, 927, 73627 #### [facility] [place] [address] [employer] Mechanic: Finn Akins MD Urea nitrogen [Mass/Vol] 17 mg/dL Normal 7-25 [facility] Comment on above: Performed By: #### 7 600, 927, 75071 #### [facility] of [place] [address] [employer] Mechanic: Finn Akins MD LIPID PANEL, [facility] 08-13 Cholesterol [Mass/Vol] 126 mg/dL Normal <200 [facility] Comment on above: Order Comment: FASTI NG:YES FASTING: YES Performed By: #### 7 600, 927, 14107 #### [facility] [address], [address] [place] [address] [employer]ic: Finn Akins MD Cholesterol in HDL [Mass/Vol] 46 mg/dL Low > OR = 50 [facility] Comment on above: Order Comment: FASTI NG:YES FASTING: YES Performed By: #### 7 600, 927, 17249 #### [facility] [address], [address] [place] [address] [employer] Mechanic: Finn Akins MD Cholesterol in LDL [Mass/Vol] 63 mg/dL Normal [facility] Comment on above: Order Comment: FASTI NG:YES FASTING: YES Result Comment: Refe rence range: <100 Desirable range <100 mg/dL for primary prevention; <70 mg/dL for patients with CHD or diabetic patients with > or = 2 CHD risk factors. LDL-C is now calculated using the Aguilar-Alexey calculation, which is a validated novel method providing better accuracy than the Friedewald equation in the estimation of LDL-C. Aguilar SS et al. MCKAY. 2013;310(19): 5247-1646 (http://education.GAMEVIL/faq/YOH285) Performed By: #### 7 600, 920, 73301 #### [facility] [address], [address] [place] [address] [employer] Mechanic: Finn Akins MD Cholesterol.total/C holesterol in HDL [Mass ratio] 2.7 {ratio} Normal <5.0 [facility] Comment on above: Order Comment: FASTI NG:YES FASTING: YES Performed By: #### 7 600, 927, 16726 #### [facility] [address], [address] [place], [place] [address] [employer] Computer Mechanic: Finn Akins MD NON HDL CHOLESTEROL 80 mg/dL (calc) Normal <130 [facility] Comment on above: Order Comment: FASTI NG:YES FASTING: YES Result Comment: For patients with diabetes plus 1 major ASCVD risk factor, treating to a non-HDL-C goal of <100 mg/dL (LDL-C of <70 mg/dL) is considered a therapeutic option. Performed By: #### 7 600, 927, 76661 #### [facility] [address], [address] [place] [address] [employer] Computer Mechanic: Finn Akins MD Triglyceride [Mass/Vol] 86 mg/dL Normal <150 [facility] Comment on above: Order Comment: FASTI NG:YES FASTING: YES Performed By: #### 7 600, 927, 07539 #### [facility] [place] [address] [employer]ic: Finn Akins MD VITAMIN B12on 08-29-2021 Cobalamin (Vitamin B12) [Mass/Vol] 184 pg/mL Low 200-1100 [facility] Comment on above: Performed By: #### 7 600, 927, 39948 #### [facility] [address], [address] [place] [address] [employer]ic: Finn Akins MD BASIC METABOLIC PANELon Calcium [Mass/Vol] 9.2 mg/dL Normal 8.6-10.4 [facility] Comment on above: Performed By: #### 9 27, 85806, 91055 #### [facility] [place] [address] [employer] Mechanic: Finn Akins MD Chloride [Moles/Vol] 102 mmol/L Normal 98-110 [facility] Comment on above: Performed By: #### 9 27, 07311, 18473 #### [facility] [place] [address] [employer] Mechanic: Finn Akins MD CO2 [Moles/Vol] 28 mmol/L Normal 20-32 [facility] Comment on above: Performed By: #### 9 27, 72735, 03183 #### [facility] [place] [address] [employer] Mechanic: Finn Akins MD Creatinine [Mass/Vol] 0.56 mg/dL Low 0.60-0.93 [facility] Comment on above: Result Comment: For patients >49 years of age, the reference limit for Creatinine is approximately 13% higher for people identified as -[place]. Performed By: #### 9 , 65674, 35069 #### [facility] [place] [address] [employer] Mechanic: Finn Akins MD eGFR NON-AFR. UZBEK 93 mL/min/1.73m2 Normal > OR = 60 [facility] Comment on above: Performed By: #### 9 , 69423, 17980 #### [facility] [place] [address] [employer] Mechanic: Finn Akins MD GFR/1.73 sq M.predicted among blacks MDRD (S/P/Bld) [Vol rate/Area] 107 mL/min/{1.73_m2} Normal > OR = 60 [facility] Comment on above: Performed By: #### 9 , 88000, 54494 #### [facility] [place] [address] [employer] Mechanic: Finn Akins MD Glucose [Mass/Vol] 97 mg/dL Normal 65-99 [facility] Comment on above: Result Comment: Fasting reference interval Performed By: #### 9 , 35046, 41076 #### [facility] [place] [address] [employer] Mechanic: Finn Akins MD Potassium [Moles/Vol] 3.8 mmol/L Normal 3.5-5.3 [facility] Comment on above: Performed By: #### 9 , 38090, 65352 #### [facility] [place] [address] [employer] Mechanic: Finn Akins MD Sodium [Moles/Vol] 140 mmol/L Normal 135-146 [facility] Comment on above: Performed By: #### 9 , 78376, 90694 #### [facility] of [address], [address] [place] [address] [employer] Mechanic: Finn Akins MD Urea nitrogen [Mass/Vol] 14 mg/dL Normal 7-25 [facility] Comment on above: Performed By: #### 9 , 40815, 97206 #### [facility] [place] [address] [employer] Mechanic: Finn Akins MD Urea nitrogen/Creatinine [Mass ratio] 25 mg/mg High 6-22 [facility] Comment on above: Performed By: #### 9 , 63826, 35927 #### [facility] [place] [address] [employer] Computer Mechanic: Finn Akins MD TSH+FREE T4on 04-19-2021 Free T4 [Mass/Vol] 1.2 ng/dL Normal 0.8-1.8 [facility] Comment on above: Performed By: #### 9 , 67424, 81626 #### [facility] [place] [address] [employer] Computer Mechanic: Finn Akins MD TSH Qn 0.55 m[IU]/L Normal 0.40-4.50 [facility] Comment on above: Performed By: #### 9 , 63409, 16575 #### [facility] [place] [address] [employer] Computer Mechanic: Finn Akins MD VITAMIN B12on 04-19-2021 Cobalamin (Vitamin B12) [Mass/Vol] 133 pg/mL Low 200-1100 [facility] Comment on above: Performed By: #### 9 , 39454, 02586 #### [facility] [place] [address] [employer] Mechanic: Finn Akins MD Vital Signs Date Time Vital Sign Value Performing Clinician Facility 07-01-2023 15:40-0400 Body height 149.9 cm Sangeetha Quick DO Work Phone: [facility] 07-01-2023 15:40-0400 Body mass index (BMI) [Ratio] 31.1 kg/m2 Sangeetha Dunbars DO Work Phone: [facility] 07-01-2023 15:40-0400 Body temperature 98.2 [degF] Sangeetha Jiménezhas DO Work Phone: [facility] 07-01-2023 15:40-0400 Body weight 69.85 kg Sangeetha Dunbars DO Work Phone: [facility] 07-01-2023 15:40-0400 Diastolic blood pressure 70 mm[Hg] Sangeetha Dunbars DO Work Phone: [facility] 07-01-2023 15:40-0400 Heart rate 87 /min Sangeetha Dunbars DO Work Phone: [facility] 07-01-2023 15:40-0400 SaO2% (BldA) [Mass fraction] 99 % Sangeetha Dunbars DO Work Phone: [facility] 07-01-2023 15:40-0400 Systolic blood pressure 136 mm[Hg] Sangeetha Dunbars DO Work Phone: [facility] 06-25-2023 11:23-0400 Body height 149.9 cm Sangeetha Dunbars DO Work Phone: [facility] 06-25-2023 11:23-0400 Body mass index (BMI) [Ratio] 31.06 kg/m2 Sangeetha Dunbars DO Work Phone: [facility] 06-25-2023 11:23-0400 Body temperature 98.29 [degF] Sangeetha Jiménezhas DO Work Phone: [facility] 06-25-2023 11:23-0400 Body weight 69.76 kg Sangeetha Dunbars DO Work Phone: [facility] 06-25-2023 11:23-0400 Diastolic blood pressure 70 mm[Hg] [facility]as [facility] 06-25-2023 11:23-0400 Heart rate 73 /min Sangeetha Quick DO [facility] 06-25-2023 11:23-0400 SaO2% (BldA) [Mass fraction] 97 % Sangeetha Quick DO [facility] 06-25-2023 11:23-0400 Systolic blood pressure 120 mm[Hg] Sangeetha Quick DO [facility] 05-30-2023 10:29-0500 Body height 149.9 cm Sangeetha Quick DO [facility] 05-30-2023 10:29-0500 Body mass index (BMI) [Ratio] 30.7 kg/m2 Sangeetha Quick DO Work Phone: [facility] [employer] 05-30-2023 10:29-0500 Body temperature 98.1 [degF] Sangeetha Quick DO [facility] 05-30-2023 10:29-0500 Body weight 68.95 kg Sangeetha Quick DO [facility] 05-30-2023 10:29-0500 Diastolic blood pressure 70 mm[Hg] Sangeetha Quick DO [facility] 05-30-2023 10:29-0500 Heart rate 71 /min Sangeetha Quick DO [facility] 05-30-2023 10:29-0500 SaO2% (BldA) [Mass fraction] 96 % Sangeetha Quick DO [facility] 05-30-2023 10:29-0500 Systolic blood pressure 120 mm[Hg] Sangeetha Quick DO Work Phone: [facility] [employer] Encounters Encounter Date Encounter Type Care Provider Facility Start: 2023 End: 2023 Emergency department patient visit [facility] Start: 09-10-2023 End: 09-10-2023 ambulatory KATHRYN CAGLE Not Available Start: 07-25-2023 End: 07-25-2023 ambulatory [facility] Start: 07-01-2023 End: 07-01-2023 ambulatory [facility] Start: 07-01-2023 End: 07-01-2023 Office outpatient visit 25 minutes Sangeetha Quick DO Work Phone: [facility] Comment on above: 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, bilateral (Primary Dx); Osteoarthritis of left shoulder, unspecified osteoarthritis type; Immunization due Start: 06-27-2023 End: 06-27-2023 ambulatory [facility] Start: 06-25-2023 End: 06-25-2023 ambulatory [facility] Start: 06-25-2023 End: 06-25-2023 Office outpatient visit 25 minutes [facility] DO [facility] Comment on above: Localized osteoarthr itis of left knee (Primary Dx) Start: 05-30-2023 End: 05-31-2023 ambulatory [facility] Start: 05-30-2023 End: 05-30-2023 ambulatory [facility] Start: 05-30-2023 End: 05-30-2023 Office outpatient visit 25 minutes Sangeetha Quick DO [facility] Comment on above: Hypothyroidism, unsp ecified type (Primary Dx); Cobalamin deficiency; Hyperlipidemia, unspecified hyperlipidemia type; Osteoarthritis of left shoulder, unspecified osteoarthritis type Start: 09-28-2022 [facility] Start: 09-04-2022 ambulatory [facility] Facility:[facility] Start: 08-28-2022 End: 08-28-2022 ambulatory NARENDRANATH [...] Adult BMI Screening Adult BMI Screen ing [facility] Start: 06-30-2024 Depression Screening Depression Scre ening [facility] Start: 06-30-2024 Fall Risk Screening Fall Risk Screen ing [facility] Start: 06-30-2024 Tobacco Screening Tobacco Screening [facility] Start: 06-24-2024 Adult BMI Screening Adult BMI Screen ing [facility] Start: 06-24-2024 Depression Screening Depression Scre ening [facility] Start: 06-24-2024 Fall Risk Screening Fall Risk Screen ing [facility] Start: 06-24-2024 Tobacco Screening Tobacco Screening [facility] Start: 05-30-2024 Adult BMI Screening Adult BMI Screen ing [facility] Start: 05-30-2024 Depression Screening Depression Scre ening [facility] Start: 05-30-2024 Fall Risk Screening Fall Risk Screen ing [facility] Start: 05-30-2024 Tobacco Screening Tobacco Screening [facility] Start: 05-21-2024 DTaP,Tdap and Td Vaccines (2 - Td or Tdap) DTaP,Tdap and Td Vaccines (2 - Td or Tdap) [facility] Start: 12-03-2023 End: 12-03-2023 Patient encounter procedure 12/03/2023 2:00 PM EDT Office Visit [facility] [address] [place] [id number] [facility] Start: 11-28-2023 Medicare Annual Well ness Visit Medicare Annual Wellness Visit [facility] Start: 07-14-2023 Influenza vaccination Influenza Vacc ine [facility] Comment on above: Postponed from 12/14 (Vaccine Not Available) Start: 06-25-2023 End: 06-24-2024 XR Knee - left 3 Views X-ray knee left 3 views Imaging Routine Localized osteoarthritis of left knee Expected: 06/25/2023, Expires: 06/24/2024 [facility] Work Phone: Comment on above: Expected: 06/25/2023 , Expires: 06/24/2024 Start: 12-14-2022 COVID-19 Vaccine ( season) COVID-19 Vaccine () [facility] Start: 12-14-2022 Influenza vaccination Influenza Vacc ine [facility] Start: 12-20-1997 Administration of varicella zoster vaccine Zoster (Shingles) Vaccine (1 of 2) [facility] Start: 12-20-1965 Adult BMI Follow Up Plan Adult BMI F ollow Up Plan [facility] Immunizations Immunization Date Immunization Notes Care Provider Dima christiancelso 04-24-2017 Influenza, injectabl e, Madin Ammy Canine Kidney, preservative free, quadrivalent Sangeetha Yuhas DO Work Phone: [facility] 04-24-2017 influenza virus vacc ine, unspecified formulation Sangeetha Yuhas DO Work Phone: [facility] 03-15-2016 pneumococcal polysaccharide vaccine, 23 valent Sangeetha Yuhas DO Work Phone: [facility] 01-11-2016 influenza, seasonal, injectable, preservative free Sangeetha Yuhas DO Work Phone: [facility] 01-05-2015 influenza, seasonal, injectable, preservative free Sangeetha Yuhas DO Work Phone: [facility] 01-05-2015 pneumococcal conjuga te vaccine, 13 valent Sangeetha Yuhas DO Work Phone: [facility] 05-21-2014 pneumococcal polysaccharide vaccine, 23 valent Sangeetha Yuhas DO Work Phone: [facility] 05-21-2014 tetanus toxoid, redu mary diphtheria toxoid, and acellular pertussis vaccine, adsorbed Sangeetha Yuhas DO Work Phone: [facility] Payers Date Payer Category Payer Private Health Insurance [employer] [id number] 2021-Present [phone] [address] [address] [place] [address] [id number] 2010 Medicare MEDICARE MEDICAR E PART A & B [id number] 2010-Present [phone] [address] [place] [address] [id number] 1959 Medicare [id number] 1959 Private Health Insurance I [id number] 1947 Unknown [id number] 2.16.840.1.697579.3.579 .2.593 1947 Unknown [id number] 2.16.840.1.508752.3.579 .2.593 1947 Unknown [id number] 2.16.840.1.957481.3.579 .2.593 1947 Unknown [id number] 2.16.840.1.732017.3.579 .2.593 1947 Unknown [id number] 2.16.840.1.789635.3.579 .2.593 1947 Unknown [id number] 2.16.840.1.187807.3.579 .2.593 1947 Unknown [id number] 2.16.840.1.292722.3.579 .2.593 1947 Unknown [id number] 2.16.840.1.282364.3.579 .2.593 1947 Unknown [id number] 2.16.840.1.136337.3.579 .2.593 1947 Unknown [id number] 2.16.840.1.411569.3.579 .2.593 1947 Unknown [id number] 2.16.840.1.166542.3.579 .2.593 1947 Unknown [id number] 2.16.840.1.805216.3.579 .2.593 1947 Unknown [id number] 2.16.840.1.804197.3.579 .2.593 1947 Unknown [id number] 2.16.840.1.147071.3.579 .2.593 1947 Unknown [id number] 2.16.840.1.304987.3.579 .2.593 1947 Unknown [id number] 2.16.840.1.343879.3.579 .2.1286 1947 Unknown [id number] 2.16.840.1.113470.3.579 .2.1286 1947 Unknown [id number] 2.16.840.1.966914.3.579 .2.1286 1947 Unknown [id number] 2.16.840.1.839087.3.579 .2.1286 1945 Unknown [id number] 1945 Unknown [id number] 1945 Unknown [id number] 1945 Unknown [id number] Social History Date Type Detail Facility Start: 05-14-2022 Tobacco smoking stat [facility] Never smoked tobacco [facility] Start: 05-14-2022 Tobacco use and exposure Smoke less tobacco non-user [facility] Start: 05-30-2023 End: 07-01-2023 Alcohol intake Current non-drinker of alcohol (finding) [facility] Start: 11-27-2022 End: 07-01-2023 History of Social function [facility] Start: 11-27-2022 End: 07-01-2023 Social connection and isolation panel [facility] Do you belong to any clubs or organizations such as sabianism groups, unions, fraternal or athletic groups, or school groups? Yes [facility] Are you now , , , , never or living with a partner? [facility] How often to you hav e a drink containing alcohol? Never [facility] How many standard dr inks containing alcohol do you have on a typical day? Patient does not drink [facility] How hard is it for y ou to pay for the very basics like food, housing, medical care, and heating Hard [facility] Do you feel stress - tense, restless, nervous, or anxious, or unable to sleep at night because your mind is troubled all the time - these days [OSQ] Very much [facility] Start: 1945 Sex Assigned At Not on file P [facility] Clinical Notes 09-07-2021 to 07-01-2023 Sangeetha Quick, DO - 07/01/2023 3:45 PM eDnise Quick, DO - 06/25/2023 11:15 AM Denise [...] Testing No results found. Sangeetha Quick DO., [facility] Office: [phone] documented in this encounter [facility] 06-25-2023 History of Present illness Narrative [...] Testing No results found. Sangeetha Quick DO., [facility] Office: [phone] documented in this encounter [facility] 05-30-2023 History of Present illness Narrative IM PROGRESS NOTE Patient - Rach Munroe Age - 77 y.o. - 1945 [facility] # - [id number] ASSESSMENT & PLAN 1. Hypothyroidism, unspecified type [...] Testing No results found. Sangeetha Quick DO., [facility] Office: [phone] documented in this encounter [facility] 07-19-2022 Note CONSULTATION CONSULTATION DATE: 07/19/2022 TO: [...] our patients to inform us about any [id number] medications or herbal remedies/nutritional supplements/alternative remedies. 2. [...] options with their primary care provider. [facility] 04-26-2022 Note CONSULTATION CONSULTATION DATE: 04/26/2022 [...] three months' time unless otherwise indicated. [facility] 03-27-2022 Note CONSULTATION CONSULTATION DATE: 03/27/2022 [...] to proceed. CC: Sangeetha Quick D.O. [facility] 02-08-2022 Note CONSULTATION CONSULTATION DATE: 02/08/2022 [...] The patient agrees with this plan. [facility] 01-11-2022 Note CONSULTATION CONSULTATION DATE: 01/11/2022 [...] Patient would like to move forward. [facility] 12-14-2021 Note CONSULTATION PROCEDURE DATE: 12/14/2021 [...] be followed up in the office. [facility] 12-14-2021 Note CONSULTATION CONSULTATION DATE: 12/14/2021 [...] well, which she does consent to. [facility] 09-07-2021 Note CONSULTATION CONSULTATION DATE: 09/07/2021 [...] in the fall. She was referred to [facility] Neurosurgery and is planning to have surgery in the fall following harvest season. 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 Patient feels that she can make it through the summer with a combination of her medication and occasional trigger point injections. Activities that aggravate her pain are doughnut glazier hours, housework and lifting. She uses heat [...] in three months' time, unless otherwise indicated. [facility] Signed and Approved by: MARIELY YUAN . 09/14/2021 16:04:00 [facility] Evaluation note Diagnosis Hypothyroidism, unspecified type- Primary Cobalamin deficiency Other B-complex deficiencies Hyperlipidemia, unspecified hyperlipidemia type Osteoarthritis of left shoulder, unspecified osteoarthritis type [facility] Localized osteoarthritis of left knee- Primary [facility] Primary osteoarthritis of knees, bilateral- Primary Osteoarthritis of left shoulder, unspecified osteoarthritis type Immunization due documented [facility] filedocumented in this encounter [facility] filedocumented in this encounter [facility] Attachments The following attachments cannot be sent through Care Everywhere. * Osteoarthritis Discharge Instructions (Armenian) [facility] Family History No [...] CREATED AUTHOR AUTHOR'S ORGANIZ ATION 08/29/2022 [facility] DATE CREATED AUTHOR AUTHOR'S ORGANIZ ATION 06/01/2023 [facility] DATE CREATED AUTHOR AUTHOR'S ORGANIZ ATION 07/26/2023 [facility] DATE CREATED AUTHOR AUTHOR'S ORGANIZ ATION 09/10/2023 [facility] DATE CREATED AUTHOR AUTHOR'S ORGANIZ ATION 12/22/2023 [facility] Reason for Visit (unrecogniz ed section and content) Reason Comments Thyroid Problem Hyperlipidemia Reason Comments Knee Pain Left knee Reason Comments lt knee injury, now both hurting Feeling better. Pain level is at a 6 Care Teams (unrecognized sec tion and content) Clothes Marker Relationship Specialty Start Date End Date Sangeetha Quick DO [address] [place] [address] PCP - General 11/09/13 Clothes Marker Relationship Specialty Start Date End Date Sangeetha Quick DO [address] [place] [address] PCP - General 11/09/13 Clothes Marker Relationship Specialty Start Date End Date Sangeetha Quick [address] [id number] PCP - General 11/09/13 FOR RECORDS PERTAINING [...] BE BASED ON THE PRIMARY CLINICAL RECORDS. [facility]. provides no warranty or guarantee of the accuracy or completeness of information in this document.
--- NOTE | 2023-12-25 08:27 | P.CN_ITS ---
Consult Note: HPI Data of Consult Patient: known to practice within the last 3 years Requesting Physician: Rosina Fleming NP Primary Care Provider: SANGEETHA QUICK Consult Narrative Reason for consult: f/u Narrative: Rach Hernandez a pleasant 77 year old female presents for evaluation and management of chronic low back pain and bilateral knee pain/OA. Tolerating tylenol arthritis, tizanidine 2mg BID PRN, and tramadol 50mg BID PRN well without side effects, finds mild benefit. Reporting previous bilateral knee durolane injections providing greater than 50% improvement in the right knee, less than 50% improvement in the right knee. Patient reports shes had reoccuring moderate to severe edema in left knee with redness and warmth to touch causing immobility, last flare two weeks ago. Patient has not been evaluated by orthopedics or sports medicine recently, previously saw Dr Aponte. Patient would like to discuss repeating L5-S1 LENY as previous injection provided >50% improvement greater than 3 months and shes noticing increase in pain radiating down bilateral legs. cc:: CC: Rosina Fleming NP Review of Systems ROS Status of ROS 10 or more systems reviewed and unremark able except as noted in history and below Musculoskeletal Reports: back pain and joint pain Meds Home Medications and Allergies Home Medications ?Medication ?Instructions ?Recorded ?Confirmed ?Type acetaminophen 325 mg tablet (Aphen) 650 mg PO Q6H PRN pain 10/10/22 10/29/23 History levothyroxine 50 mcg capsule 50 mcg PO DAILY 10/11/22 10/29/23 History ropinirole 0.25 mg tablet 0.25 mg PO DAILY 10/11/22 10/29/23 History rosuvastatin 10 mg tablet 10 mg PO DAILY 10/11/22 10/29/23 History tizanidine 2 mg tablet 2 mg PO BID PRN spasm 10/11/22 10/29/23 History tramadol 50 mg tablet 50 mg PO BID 10/11/22 10/29/23 History zoledronic acid 5 mg/100 mL in ea IV .1 YEAR 01/10/23 History mannitol 5 %-water intravenous piggybck (Reclast) cholecalciferol (vitamin D3) 1,250 50,000 unit PO QWEEK 09/11/23 10/29/23 History mcg (50,000 unit) capsule ergocalciferol (vitamin D2) 1,250 1,250 mcg PO QWEEK 09/11/23 10/29/23 History mcg (50,000 unit) capsule estradiol 0.01% (0.1 mg/gram) 0.25 appful vaginal DAILY PRN 09/11/23 10/29/23 History vaginal cream itching Allergies Allergy/AdvReac Type Severity Reaction Status Date / Time aspirin Allergy Hives Verified 10/29/23 07:52 codeine Allergy Hives Verified 10/29/23 07:52 iodine Allergy Blister Verified 10/29/23 07:52 latex Allergy Blister Verified 10/29/23 07:52 pregabalin [From Lyrica] Allergy Abdominal Verified 10/29/23 07:52 Pain Sulfa (Sulfonamide Allergy Abdominal Verified 10/29/23 07:52 Antibiotics) Pain Exam Constitutional Documenting provider has reviewed patient's vital signs: yes Common normals: no apparent distress, oriented x3, healthy appearing, alert and well nourished General appearance: cooperative HENMT Common normals: normocephalic, hearing grossly normal bilaterally and moist oral mucous membranes Head and scalp: normocephalic Eye Common normals: PERRL Pupil: PERRL Neck & C-Spine Common normals: full ROM General: normal visual inspection Other: pain with ROM positive spurlings left intermittent radiculopathy to left arm Chest Common normals: inspection of chest normal Respiratory Common normals: normal respiratory effort, no retractions and no use of accessory muscles Back & Pelvis Thoracic spine/upper back: pain with ROM Lumbar spine/lower back: pain with ROM, lumbar spinal tenderness, paraspinal muscle tenderness, straight leg raise positive right and straight leg raise positive left Sacroiliac joints: SI joint(s) abnormal Other: pain with jose l, FADER, [place]. Right>L lumbar radiculopathy to bilateral L5-S1, strength 5/5 in BLE positive facet loading, pain over L4-S1 facets Extremity Common normals: normal to inspection and full ROM Right lower extremity: knee joint Left lower extremity: knee joint Left knee: inspection (mild edema noted, no discoloration or redness), palpation (tenderness most significant over MCL and meniscus), ROM (limited due to pain) and special tests Other: moderate crepitus to bilateral knees, pain with medial and lateral stress testing, enlarged diameters, mild edema to bilateral knees. no instability noted Neuro Common normals: oriented x3, CN's II-XII intact bilaterally, moves all extremities, no focal motor deficits, no sensory deficits noted and deep tendon reflexes 2+ bilaterally Sensorium/orientation: alert Motor exam: strength 5/5 throughout and no movement abnormalities noted Psych Common normals: mental status grossly normal, thought process normal, cooperative, affect normal, speech normal and activity/motor behavior normal Speech: normal speech Thought process: normal thought process Results Additional Findings Additional findings: If on a controlled substance or opioids, I have checked an [place]AR[place] report on this patient and there are no aberrancies noted in the prescribing history.??If on a controlled substance or opioid a drug screen was completed and reviewed within the last year, and if there has not been a drug screen completed we ordered one today to monitor higher risk, state monitored pain medication use. As part of providing excellent, safe, comprehensive care, the following was completed at our patient's visit: 1. A medication reconciliation and review to ensure accurate knowledge of current/active medications, including asking our patients to inform us about any chqj-xkq-picpara medications or herbal remedies/nutritional supplements/alternative remedies. 2. A review to specifically ensure our patients have had annual screening for screening for depression, screening for tobacco use, and screening for unhealthy alcohol use. For concerning screenings had a discussion with the patient, provided patient education, and recommended follow-up with primary care provider when appropriate. If patient noted with a risk of falling, they received education on strength, gait, and balance training to prevent future risk of falling. Assessment and Plan Assessment and Plan (1) Bursitis of left knee: (2) Osteoarthritis of right knee: (3) Osteoarthritis of left knee: (4) Lumbar radiculopathy: (5) Chronic prescription opiate use: (6) Osteoporosis: (7) Lumbar spondylosis: (8) Chronic pain syndrome: (9) Osteoarthritis: Plan refer to dr aponte for evaluation of left knee bursitis, can consider genicular nerve blocks and RFA in the future for OA related pain unresponsive to steroidal injections and HUBER based injections repeat L5-S1 LENY under fluoroscopy for lumbar radiculopathy, risks vs benefits reviewed. previous injection provided >50% improvement greater than 3 months consider bilateral L4-5 L5-S1 facet RFAs in the future for axial low back pain secondary to lumbar spondylosis continue current medications, tolerating well without side effects f/u 2 weeks after LENY
== END 2023-12-25 08:02 | disposition home or self-care (01) ==
PROVIDERS: PCP Internal Medicine; Visit Provider Nurse Practitioner
DX: M70.52 Other bursitis of knee, left knee (principal); M17.0 Bilateral primary osteoarthritis of knee; M54.16 Radiculopathy, lumbar region; Z79.891 Long term (current) use of opiate analgesic; M81.0 Age-related osteoporosis without current pathological fracture; M47.816 Spondylosis without myelopathy or radiculopathy, lumbar region; G89.4 Chronic pain syndrome; M19.90 Unspecified osteoarthritis, unspecified site
CPT/HCPCS: G0463

== ENCOUNTER 2024-06-04 12:29 | Outpatient (OUT) | payer MEDICARE, SELFPAY ==
--- OUTSIDE RECORDS SUMMARY | 2024-06-04 12:42 | XMS_ITS | CCD ---
Author Organization [facility] Care Team Providers Care Family Medicine Resident Name Role Phone LAKSHMIPATHY, NARENDRANATH Attending Unava [...] Admitting Unavailable YUAN ., MARIELY Consulting Unavailable YUWILLIS, DR VIVAS Primary Care Unavailable LAKSHMIPATHY, TOÑA [...] Unavailable LAKSHMIPATHY, TOÑA Attending Unava ilable LAKSHMIPATHY, NARENDBHMUIATH Admitting Unava ilable YUHAS, DR VIVAS Primary Care Unavailable LAKSHMIPATHY, TOÑA Consulting Unava ilable BARRAZA ., DR YINKA Alford Consulting Unavailable BARRAZA ., DR YINKA Alford Attending Unavailable BARRAZA ., DR YINKA Alford Admitting Unavailable YUHAS, DR VIVAS Primary Care Unavailable YUHAS, DR VIVAS Consulting Unavailable YUHAS, DR VIVAS Attending Unavailable YUHAS, DR VIVAS Admitting Unavailable YUHAS, DR VIVAS Primary Care Unavailable Dl Rangel Consulting Unavailable BARRAZA ., DR YINKA [...] Unava ilable LAKSHMIPATHY, NARFAUSTINO Admitting Unava ilable YUHAElieser, DR VIVAS Primary Care Unavailable LAKSHMIPATHY, NARENDRANATH Consulting Unava ilable SHANNEN BLAIR Consulting Unavailable LAKSHMIPATHY, NARENDRANATH Attending Unava ilable YUHAS, DR VIVAS Primary Care Unavailable LAKSHMIPATHY, NARENDRANKIM Admitting Unava ilable LAKSHMIPATHY, NARENDRANATH Consulting Unava ilable KATHRYN CAGLE Attending Unavailable KATHRYN CAGLE Attending Unavailable KATHRYN CAGLE Referring Unavailable JR. MCKEON GEORGE C Attending Sangeetha Pimentel MD Primary Care Provider Sangeetha Quick DO Primary Care Provider SANGEETHA QUICK Attending Unavailable SANGEETHA QUICK Referring Unavailable SANGEETHA QUICK Primary Care Unavailable SANGEETHA QUICK Attending Unavailable SANGEETHA QUICK Referring Unavailable SANGEETHA QUICK Primary Care Unavailable SANGEETHA QUICK Attending Unavailable SANGEETHA QUICK Referring Unavailable SANGEETHA QUICK Primary Care Unavailable SANGEETHA QUICK Attending Unavailable SANGEETHA QUICK Referring Unavailable SANGEETHA QUICK Primary Care Unavailable SANGEETHA QUICK Attending Unavailable SANGEETHA QUICK Referring Unavailable SANGEETHA QUICK Primary Care Unavailable YUHAS, SANGEETHA L Referring Unavailable YUHAS, SANGEETHA L Primary Care Unavailable YUHAS, SANGEETHA L Attending Unavailable YUHAS, SANGEETHA L Referring Unavailable YUHAS, SANGEETHA L Primary Care Unavailable YUHAS, SANGEETHA L Attending Unavailable YUHAS, SANGEETHA L Referring Unavailable YUHAS, SANGEETHA L Primary Care Unavailable YUHAS, SANGEETHA L Referring Unavailable YUHAS, SANGEETHA L Primary Care Unavailable YUHAS, SANGEETHA L Referring Unavailable YUHAS, SANGEETHA L Primary Care Unavailable YUHAS, SANGEETHA L Attending Unavailable YUHAS, SANGEETHA L Referring Unavailable YUHAS, SANGEETHA L Primary Care Unavailable YUHAS, SANGEETHA L Primary Care Unavailable MARCIO BRIGGS Attending Unavailable YUHAS, SANGEETHA L Referring Unavailable YUHAS, SANGEETHA L Primary Care Unavailable YUHAS, SANGEETHA L Referring Unavailable YUHAS, SANGEETHA L Primary Care Unavailable YUHAS, SANGEETHA L Attending Unavailable YUHAS, SANGEETHA L Referring Unavailable YUHAS, SANGEETHA L Primary Care Unavailable YUHAS, SANGEETHA L Referring Unavailable YUHAS, SANGEETHA L Primary Care Unavailable YUHAS, SANGEETHA L Referring Unavailable YUHAS, SANGEETHA L Primary Care Unavailable YUHAS, SANGEETHA L Attending Unavailable YUHAS, SANGEETHA L Referring Unavailable YUHAS, SANGEETHA L Primary Care Unavailable Allergies Allergy Classification Reported Allergen(s) Allergy Type Date of Onset Reaction(s) Facility (1 source) Aspirin Drug Allergy [facility] (4 sources) Codeine; Translations: [CODEINE] Drug Allergy 8 [facility] (1 source) Etodolac Drug Allergy [facility] (4 sources) Iodine; Translations: [IODINE] Drug Allergy 8 [facility] (4 sources) Latex; Translations: [LATEX] Drug allergy (disorder) 3 [facility] (1 source) pregabalin Drug Allergy [facility] (1 source) Sulfonamides (Antibiotic) Drug allergy (disorder) [facility] (6 sources) Aluminum aspirin Drug Allergy 4 [facility] (20 sources) Codeine Drug Allergy 8 Rash, Unknown [facility] (9 sources) Etodolac; Translations: [ETODOLAC] Propensity to adverse reactions 3 [facility] (20 sources) Iodine Drug Allergy 8 Anaphylaxis [facility] (6 sources) Latex Propensity to adverse reactions 3 [facility] (9 sources) Penicillins; Translations: [PENICILLINS] Drug Intolerance 8 Hives [facility] (20 sources) Sulfonamides (Antibiotic) Drug Intolerance 8 Rash, Unknown [facility] (18 sources) Aspirin; Translations: [ASPIRIN, BUFFERED] Drug Allergy 8 [facility] (15 sources) Etodolac Drug Allergy 3 [facility] (15 sources) Latex Propensity to adverse reactions to drug 3 [facility] (15 sources) Penicillins Propensity to adverse reactions to drug 8 [facility] (3 sources) Sulfonamides (Antibiotic); Translations: [SULFA (SULFONAMIDE ANTIBIOTICS)] Propensity to adverse reactions to drug (disorder) 8 [facility] Medications Current Medications Medication Drug Class(es) Dates Sig (Normalized) Sig (Original) 8 hr acetaminophen 650 mg extended release oral tablet (20 sources) take 1 tablet by mouth every eight hours in the morning acetaminophen (TYLENOL) 650 mg 8 hr tablet Take 1 tablet (650 mg total) by mouth in the morning. Active atropine sulfate 0.025 mg / diphenoxylate hydrochloride 2.5 mg oral tablet (1 source) Anticholinergic, Cholinergic Muscarinic Antagonist, Antidiarrheal Start: 12-24-2023 End: 12-29-2023 take 1 tablet by mouth four times daily as needed for diarrhea diphenoxylate-atropi ne (LOMOTIL) 2.5-0.025 mg per tablet Indications: Diarrhea, unspecified type Take 1 tablet by mouth 4 (four) times a day as needed for diarrhea for up to 5 days. 20 tablet 12/24/2023 12/29/2023 Active cholecalciferol 1.25 mg oral capsule (18 sources) Vitamin D Start: 02-25-2024 take 1 capsule by mouth every week cholecalciferol (VITAMIN D3) 50,000 units capsule Indications: Vitamin D deficiency, unspecified TAKE 1 CAPSULE BY MOUTH ONCE WEEKLY 12 capsule 3 02/25/2024 Active Start: 05-22-2023 End: 02-25-2024 take 1 capsule by mouth every week cholecalciferol (VITAMIN D3) 50,000 units capsule Indications: Vitamin D deficiency, unspecified TAKE 1 CAPSULE BY MOUTH ONCE WEEKLY 12 capsule 3 02/25/2024 Active ergocalciferol 1.25 mg oral capsule (20 sources) Provitamin D2 Compound Start: 02-16-2023 take 1 capsule by mouth every week ergocalciferol (DRISDOL) 1,250 mcg (50,000 unit) capsule TAKE 1 CASPULE BY MOUTH ONCE TIME PER WEEK 02/16/2023 Active estradiol 0.1 mg/ml vaginal cream (20 sources) Estrogen Start: 03-19-2023 estradioL (ESTRACE) 0.01 % (0.1 mg/gram) vaginal cream Indications: Lichen planus atrophicus Use at night once or twice weekly 42.5 g 1 03/19/2023 Active Start: 03-19-2023 estradiol (Est race) 0.1 MG/GM vaginal cream Use at night once or twice weekly 03/19/2023 Active levothyroxine sodium 0.05 mg oral tablet (20 sources) l-Thyroxine Start: 02-25-2024 take 1 tablet by mouth once daily levothyroxine (SYNTHROID, LEVOTHROID) 50 MCG tablet Indications: Hypothyroidism TAKE 1 TABLET BY MOUTH EVERY DAY 90 tablet 1 02/25/2024 Active Start: 05-21-2023 End: 02-25-2024 take 1 tablet by mouth once daily levothyroxine (SYNTHROID, LEVOTHROID) 50 MCG tablet Indications: Hypothyroidism TAKE 1 TABLET BY MOUTH EVERY DAY 90 tablet 1 02/25/2024 Active ondansetron 4 mg disintegrating oral tablet (10 sources) Serotonin-3 Receptor Antagonist Start: 12-24-2023 ondansetron ODT (ZOFRAN ODT) 4 mg disintegrating tablet Indications: Nausea and vomiting, unspecified vomiting type Dissolve 1 tablet (4 mg total) on tongue every 8 (eight) hours as needed for nausea or vomiting. 20 tablet 12/24/2023 Active Start: 2023 End: 12-24-2023 ondansetron ODT (ZOFRAN ODT) 4 mg disintegrating tablet Dissolve 1 tablet (4 mg total) on tongue 3 (three) times a day as needed for nausea for up to 3 doses. 3 tablet 2023 12/24/2023 Discontinued (Duplicate Listing) predniSONE 20 mg oral tablet (1 source) Start: 06-25-2023 End: 06-30-2023 take 2 tablets by mouth in the morning predniSONE (DELTASONE) 20 mg tablet Indications: Localized osteoarthritis of left knee Take 2 tablets (40 mg total) by mouth in the morning for 5 days. 10 tablet 0 06/25/2023 06/30/2023 Active rOPINIRole 0.25 mg oral tablet (20 sources) Nonergot Dopamine Agonist Start: 03-15-2022 take 1 tablet by mouth at bedtime rOPINIRole (Requip) 0.25 MG tablet Take 0.25 mg by mouth at bedtime 05/27/2023 Active rosuvastatin calcium 10 mg oral tablet (20 sources) HMG-CoA Reductase Inhibitor Start: 05-21-2023 take 1 tablet by mouth once daily rosuvastatin (CRESTOR) 10 mg tablet Indications: Hyperlipidemia, unspecified TAKE 1 TABLET BY MOUTH EVERY DAY 90 tablet 1 05/31/2023 Active tiZANidine 4 mg oral tablet (20 sources) Central alpha-2 Adrenergic Agonist Start: 05-27-2023 take 1 tablet by mouth twice daily as needed tiZANidine (Zanaflex) 4 MG tablet TAKE 1/2-1 TABLET BY MOUTH TWICE A DAY NEEDED 05/27/2023 Active Start: 07-14-2022 take 1 tablet by mike twice daily as needed for muscle spasms tiZANidine (ZANAFLEX) 2 mg tablet Indications: Left cervical radiculopathy TAKE 1 TABLET BY MOUTH TWICE DAILY NEEDED FOR MUSCLE SPASMS 30 tablet 2 07/14/2022 Active traMADol hydrochloride 50 mg oral tablet (20 sources) Opioid Agonist Start: 03-19-2022 traMADoL (ULTR AM) 50 mg tablet 03/19/2022 Active Completed/Discontinued Medications Medication Drug Class(es) Dates Sig (Normalized) Sig (Original) adjuvant AS01B, PF,vial 1 of 2 (SHINGRIX ADJUVANT COMPONENT-PF) suspension (1 source) Start: End: adjuvant AS01B, PF,vial 1 of 2 (SHINGRIX ADJUVANT COMPONENT-PF) suspension Indications: Immunization due Inject 0.5 mL into the appropriate muscle once for 1 dose. Repeat dose in 2 -4 months 0.5 mL 1 07/01/2023 07/01/2023 clobetasol propionate 0.5 mg/ml topical cream (1 source) Corticosteroid Start: 3 End: 4 clobetasoL (TEMOVATE) 0.05 % cream Indications: Lichen planus atrophicus Apply 1 Application topically in the morning and 1 Application before bedtime. 30 g 0 03/19/2023 05/30/2023 Discontinued (Patient Stopped On Own) dexamethasone 0.001 mg/mg / neomycin 0.0035 mg/mg / polymyxin b 10 unt/mg ophthalmic ointment (6 sources) Aminoglycoside Antibacterial, Polymyxin-class Antibacterial, Corticosteroid Start: 4 End: 4 neomycin-polymyxin B-dexAMETH (MAXITROL) 3.5 mg/g-10,000 unit/g-0.1 % ointment Indications: Hordeolum externum of right upper eyelid Apply to base of eyelashes every 8 (eight) hours. 3.5 g 01/20/2024 02/27/2024 Discontinued (Therapy completed) loperamide hydrochloride 2 mg oral tablet (1 source) Opioid Agonist Start: 3 End: 4 take 1 tablet by mouth four times daily as needed for diarrhea loperamide (IMODIUM A-D) 2 mg tablet Indications: Diarrhea, unspecified type Take 1 tablet (2 mg total) by mouth 4 (four) times a day as needed for diarrhea. 30 tablet 0 12/31/2022 05/30/2023 Discontinued (Patient Stopped On Own) 1 ml methylPREDNISolone acetate 40 mg/ml injection (2 sources) Corticosteroid Start: 4 End: 4 methylPREDNISolone acetate (DEPO-MEDROL) injection 40 mg Start: 07-25-2023 End: 07-25-2023 40 mg, intra-articular, Once , On Marita 07/25/23 at 1145, For 1 dose, Look-alike/sound-alike medication - verify indication for use. May alter blood glucose or insulin requirements. vitamin b12 1 mg extended release oral tablet (14 sources) Vitamin B12 Start: 11-07-2022 End: 01-20-2024 take 2 tablets by mouth once daily Cyanocobalamin ER 1000 MCG tablet controlled-release Take 2 tablets by mouth Daily 11/07/2022 01/20/2024 Discontinued (Therapy completed) 100 ml zoledronic acid 0.05 mg/ml injection (1 source) Bisphosphonate Start: 02-06-2024 End: 02-06-2024 5 mg, intravenous, at 400 mL/hr, Administer over 15 Minutes, Once, On Marita 02/06/24 at 1445, For 1 dose, Run in a line infusing NS or D5W only. Flush with NS before and after each dose. Start: 02-06-2024 End: 02-06-2024 5 mg, intravenous, at 400 mL /hr, Administer over 15 Minutes, Once, On Marita 02/06/24 at 1445, For 1 dose, Run in a line infusing NS or D5W only. Flush with NS before and after each dose. Problems Active Problems Problem Classification Problem Date Documented Date Episodic/Chronic Anxiety disorders (1 source) Anxiety disorder, unspecified; Translations: [ANXIETY DISORDER UNSPECIFIED] Onset: 08-22-2022 Chronic Disorders of lipid metabolism (19 sources) Hyperlipidemia; Translations: [Hyperlipidemia, unspecified] Onset: 12-15-2020 12-15-2020 Chronic Mood disorders (15 sources) Depressive disorder; Translations: [Depressive disorder] Onset: 03-27-2018 12-15-2020 Chronic Nutritional deficiencies (5 sources) Vitamin D deficiency; Translations: [Vitamin D deficiency, unspecified] Onset: 12-24-2023 05-19-2024 Chronic Osteoarthritis (20 sources) Osteoarthritis of left knee joint; Translations: [Unilateral primary osteoarthritis, left knee] Onset: 12-15-2020 01-20-2024 Chronic Osteoporosis (20 sources) Senile osteoporosis; Translations: [Age-related osteoporosis without current pathological fracture] Onset: 12-31-2022 12-31-2022 Chronic Other connective tissue disease (1 source) Other muscle spasm; Translations: [OTHER MUSCLE SPASM] Onset: 08-22-2022 Episodic Other connective tissue disease (1 source) Pain in right foot; Translations: [Pain in right foot] 05-19-2024 Episodic Other connective tissue disease (2 sources) Pain in right foot; Translations: [Pain in right foot] Onset: 05-19-2024 Episodic Other hereditary and degenerative nervous system conditions (1 source) Restless legs syndrome; Translations: [RESTLESS LEGS SYNDROME] Onset: 01-13-2022 Chronic Other inflammatory condition of skin (1 source) Atrophic lichen planus; Translations: [Lichen planus, unspecified] 05-19-2024 Episodic Other inflammatory condition of skin (1 source) Lichen planus, unspecified; Translations: [Lichen planus, unspecified] Onset: 05-19-2024 Episodic Other nervous system disorders (5 sources) Other [...] Onset: 05-18-2022 Chronic Other non-traumatic joint disorders (2 sources) Pain in left knee; Translations: [Pain in joint, lower leg] 01-07-2024 Episodic Prolapse of female genital organs (15 sources) Cystocele; Translations: [Cystocele, unspecified] Onset: 12-15-2020 12-15-2020 Chronic Residual codes; unclassified (15 sources) Obstructive sleep apnea syndrome; Translations: [Obstructive sleep apnea (adult) (pediatric)] Onset: 12-15-2020 12-15-2020 Chronic Spondylosis; intervertebral disc disorders; other back problems (20 sources) Intervertebral disc disorders with myelopathy, lumbar region; Translations: [Other spondylosis with radiculopathy, lumbar region] Onset: 05-27-2017 Chronic Thyroid disorders (20 sources) Hypothyroidism; Translations: [Hypothyroidism, unspecified] Onset: 12-15-2020 05-19-2024 Chronic Unclassified (1 source) LOW BACK PAIN, UNSPECIFIED; Translations: [LOW BACK PAIN, UNSPECIFIED] Onset: 02-13-2022 Unclassified (1 source) Injection Onset: 07-25-2023 Unclassified (1 source) lt knee injury, now both hurting Onset: 07-01-2023 Unclassified (1 source) Thyroid Problem Onset: 05-30-2023 Unclassified (1 source) Outpatient Infusion Onset: 02-06-2024 Unclassified (1 source) vomiting, diarrhea Onset: 2023 Past or Other Problems Problem Classification Problem Date Documented Da te Episodic/Chronic Abdominal hernia (15 sources) Hiatal hernia; Translations: [Diaphragmatic hernia without obstruction or gangrene] Onset: 04-17-2022 04-17-2022 Episodic Immunizations and screening for infectious disease (2 sources) Immunization due; Translations: [Encounter for immunization] 07-01-2023 Episodic Inflammation; infection of eye (except that caused by tuberculosis or sexually transmitteddisease) (5 sources) Hordeolum externum right upper eyelid; Translations: [Unspecified blepharitis right upper eyelid] Onset: 01-20-2024 01-20-2024 Episodic Intestinal infection (1 source) Viral intestinal infection, unspecified; Translations: [Viral intestinal infection, unspecified] Onset: 2023 Episodic Mood disorders (15 sources) Mood disorders Onset: 02-27-2024 Resolved: 05-19-2024 05-19-2024 Nausea and vomiting (4 sources) Nausea with vomiting, unspecified; Translations: [Vomiting] Onset: 2023 12-24-2023 Episodic Nutritional deficiencies (20 sources) Cobalamin deficiency; Translations: [Deficiency of other specified B group vitamins] Onset: 04-19-2021 05-19-2024 Episodic Other female genital disorders (15 sources) Leukoplakia of vulva; Translations: [Circumscribed scleroderma] Onset: 06-30-2018 12-15-2020 Episodic Other gastrointestinal disorders (2 sources) Diarrhea, unspecified; Translations: [Diarrhea, unspecified] Onset: 12-24-2023 Episodic Other gastrointestinal disorders (2 sources) Diarrhea; Translations: [Diarrhea, unspecified] Onset: 2023 12-24-2023 Episodic Other non-traumatic joint disorders (1 source) Knee pain Onset: 06-25-2023 Episodic Other screening for suspected conditions (not mental disorders or infectious disease) (1 source) Encounter for screening mammogram for malignant neoplasm of breast; Translations: [Encounter for screening mammogram for malignant neoplasm of breast] Onset: 12-26-2023 Episodic Other skin disorders (15 sources) Alopecia; Translations: [Nonscarring hair loss, unspecified] Onset: 12-15-2020 12-15-2020 Episodic Spondylosis; intervertebral disc disorders; other back problems (14 sources) Intervertebral disc disorders with radiculopathy, lumbar region; Translations: [Spinal stenosis, lumbar region without neurogenic claudication] Onset: 12-14-2021 Episodic Results Test Name Value Interpretation Reference Range Facility XR FOOT RT MIN 3 VWSon 05-23 XR FOOT RT MIN 3 VWS XR FOOT RT MIN 3 VW S EXAM: XR FOOT RT MIN 3 VWS CLINICAL INFORMATION: Right foot pain. COMPARISON: None. FINDINGS: There is no evidence for an acute displaced fracture or malalignment of the foot. There is mild DJD of the first MTP joint. There are small calcaneal enthesophytes. IMPRESSION: 1. No evidence for an acute displaced fracture or malalignment of the foot. 2. 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 3. Small calcaneal enthesophytes. Finalized by Monroe Perez MD on 05/23/2024 9:[address] [facility] CBC AND AUTO DIFFon 05-19-19 25 ABSOLUTE BASOPHIL 0.0 X10E9/L Normal 0.0-0.2 [facility] Comment on above: Performed By: #### C BCA, CMP, THYR, 02170-7 #### [facility] ([id number]) [address], [address] [place] [address] ABSOLUTE NEUTROPHIL 4.4 X10E9/L Normal 1.5-6.6 [facility] Comment on above: Performed By: #### C BCA, CMP, THYR, 55862-7 #### [facility] ([id number]) [address], [address] [place] [address] Basophils/100 WBC (Bld) 0.2 % Normal [facility] Comment on above: Performed By: #### C BCA, CMP, THYR, 2131-12, 31115-9 #### [facility] ([id number]) [address], [address] [place] [address] Eosinophils (Bld) [#/Vol] 0.1 10*3/uL Normal 0.0-0.4 [facility] Comment on above: Performed By: #### C BCA, CMP, THYR, 2131-12, 62755-9 #### [facility] ([id number]) [address], [address] [place] [address] Eosinophils/100 WBC (Bld) 1.2 % Normal [facility] Comment on above: Performed By: #### C BCA, CMP, THYR, 2131-12, 26452-6 #### [facility] ([id number]) [address], [address] [place] [address] Erythrocyte distribution width (RBC) [Ratio] 14.9 % Normal 11.5-15.0 [facility] Comment on above: Performed By: #### C BCA, CMP, THYR, 2131-12, 97537-2 #### [facility] ([id number]) [address] [place] [address] Hematocrit (Bld) [Volume fraction] 34.6 % Low 35-47 [facility] Comment on above: Performed By: #### C BCA, CMP, THYR, 2131-12, 20898-6 #### [facility] ([id number]) [address], [address] [place] [address] Hemoglobin (Bld) [Mass/Vol] 11.2 g/dL Low 11.7-15.5 [facility] Comment on above: Performed By: #### C BCA, CMP, THYR, 2131-12, 39161-2 #### [facility] ([id number]) [address] [place] [address] Lymphocytes (Bld) [#/Vol] 2.5 10*3/uL Normal 1.0-3.5 [facility] Comment on above: Performed By: #### C BCA, CMP, THYR, 2131-12, 45826-0 #### [facility] ([id number]) [address], [address] [place] [address] Lymphocytes/100 WBC (Bld) 33.7 % Normal [facility] Comment on above: Performed By: #### C BCA, CMP, THYR, 2131-12, 59521-0 #### [facility] ([id number]) [address], [address] [place] [address] MCH (RBC) [Entitic mass] 27.7 pg Normal 27-34 [facility] Comment on above: Performed By: #### C BCA, CMP, THYR, 2131-12, 37442-3 #### [facility] ([id number]) [address], [address] [place] [address] MCHC (RBC) [Mass/Vol] 32.4 g/dL Normal 32-36 [facility] Comment on above: Performed By: #### C BCA, CMP, THYR, 2131-12, 94483-4 #### [facility] ([id number]) [address], [address] [place] [address] MCV (RBC) [Entitic vol] 86 fL Normal 80-100 [facility] Comment on above: Performed By: #### C BCA, CMP, THYR, 2131-12, 96010-6 #### [facility] ([id number]) [address], [address] [place] [address] Monocytes (Bld) [#/Vol] 0.4 10*3/uL Normal 0-0.9 [facility] Comment on above: Performed By: #### C BCA, CMP, THYR, 2131-12, 45889-5 #### [facility] ([id number]) [address], [address] [place] [address] Monocytes/100 WBC (Bld) 5.8 % Normal [facility] Comment on above: Performed By: #### C BCA, CMP, THYR, 2131-12, 86686-0 #### [facility] ([id number]) [address], [facility] [address] [place] [address] Neutrophils/100 WBC (Bld) 59.1 % Normal [facility] Comment on above: Performed By: #### C BCA, CMP, THYR, 2131-12, 93277-9 #### [facility] ([id number]) [address], [address] [place] [address] Platelet mean volume (Bld) [Entitic vol] 9.4 fL Normal 7-12 [facility] Comment on above: Performed By: #### C BCA, CMP, THYR, 2131-12, 54870-0 #### [facility] ([id number]) [address], [address] [place] [address] Platelets (Bld) [#/Vol] 242 10*3/uL Normal 150-450 [facility] Comment on above: Performed By: #### C BCA, CMP, THYR, 2131-12, 78653-0 #### [facility] ([id number]) [address], [address] [place] [address] RBC COUNT 4.04 X10E12/L Normal 3.80-5.20 [facility] Comment on above: Performed By: #### C BCA, CMP, THYR, 2131-12, 06342-5 #### [facility] ([id number]) [address], [address] [place] [address] WBC (Bld) [#/Vol] 7.5 10*3/uL Normal 4.0-11.0 [facility] Comment on above: Performed By: #### C BCA, CMP, THYR, 2131-12, 57144-2 #### [facility] ([id number]) [address], [address] [place] [address] COMPREHENSIVE METABOLIC PANE Ulices 05-19-2024 Albumin [Mass/Vol] 4.3 g/dL Normal 3.2-5.3 [facility] Comment on above: Performed By: #### C BCA, CMP, THYR, 2131-12, 84324-8 #### [facility] ([id number]) [address], [address] [place] [address] ALP [Catalytic activity/Vol] 51 U/L Normal 39-130 [facility] Comment on above: Performed By: #### C BCA, CMP, THYR, 2131-12, 84444-3 #### [facility] ([id number]) [address], [address] [place] [address] ALT [Catalytic activity/Vol] 10 U/L Normal 0-31 [facility] Comment on above: Performed By: #### C BCA, CMP, THYR, 2131-12, 02129-6 #### [facility] ([id number]) [address] [place] [address] Anion gap [Moles/Vol] 8 mmol/L Normal 5-15 [facility] Comment on above: Performed By: #### C BCA, CMP, THYR, 2131-12, 97228-0 #### [facility] ([id number]) [address], [address] [place] [address] AST [Catalytic activity/Vol] 17 U/L Normal 0-41 [facility] Comment on above: Performed By: #### C BCA, CMP, THYR, 2131-12, 99794-9 #### [facility] ([id number]) [address], [address] [place] [address] Bilirubin [Mass/Vol] 0.4 mg/dL Normal 0.3-1.2 [facility] Comment on above: Performed By: #### C BCA, CMP, THYR, 2131-12, 43375-5 #### [facility] ([id number]) [address], [address] [place] [address] Calcium [Mass/Vol] 8.8 mg/dL Normal 8.5-10.5 [facility] Comment on above: Performed By: #### C BCA, CMP, THYR, 2131-12, 49991-5 #### [facility] ([id number]) [address], [facility] [address] [place] [address] Chloride [Moles/Vol] 104 mmol/L Normal 98-109 [facility] Comment on above: Performed By: #### C BCA, CMP, THYR, 2131-12, 81872-4 #### [facility] ([id number]) [address], [address] [place] [address] CO2 [Moles/Vol] 28 mmol/L Normal 22-32 [facility] Comment on above: Performed By: #### C BCA, CMP, THYR, 2131-12, 80874-7 #### [facility] ([id number]) [address], [address] [place] [address] Creatinine [Mass/Vol] 0.93 mg/dL Normal 0.40-1.00 [facility] Comment on above: Result Comment: METH OD TRACEABLE TO IDMS STANDARD Performed By: #### C BCA, CMP, THYR, 2131-12, 12032-2 #### [facility] ([id number]) [address] [address] [place] [address] GFR/1.73 sq M.predicted among non-blacks MDRD (S/P/Bld) [Vol rate/Area] 64 mL/min/{1.73_m2} Normal >59 [facility] Comment on above: Result Comment: Reported eGFR is based on the CKD-EPI 2020 equation that does not use a race coefficient. Performed By: #### C BCA, CMP, THYR, 2131-12, 62547-9 #### [facility] ([id number]) [address], [address] [place] [address] Glucose [Mass/Vol] 87 mg/dL Normal 65-99 [facility] Comment on above: Performed By: #### C BCA, CMP, THYR, 2131-12, 39767-0 #### [facility] ([id number]) [address], [address] [place] [address] Potassium [Moles/Vol] 4.1 mmol/L Normal 3.5-5.0 [facility] Comment on above: Performed By: #### C BCA, CMP, THYR, 2131-12, 14497-0 #### [facility] ([id number]) [address], [address] [place] [address] Protein [Mass/Vol] 6.6 g/dL Normal 6.0-8.0 [facility] Comment on above: Performed By: #### C BCA, CMP, THYR, 2131-12, 06592-8 #### [facility] ([id number]) [address], [address] [place] [address] Sodium [Moles/Vol] 140 mmol/L Normal 134-146 [facility] Comment on above: Performed By: #### C BCA, CMP, THYR, 2131-12, 95267-3 #### [facility] ([id number]) [address], [address] [place] [address] Urea nitrogen [Mass/Vol] 20 mg/dL Normal 5-27 [facility] Comment on above: Performed By: #### C BCA, CMP, THYR, 2131-12, 41503-1 #### [facility] ([id number]) [address], [address] [place] [address] THYROID PROFILEon 05-19-2024 Free T4 [Mass/Vol] 0.95 ng/dL Normal 0.61-1.60 [facility] Comment on above: Performed By: #### C BCA, CMP, THYR, 2131-12, 69529-3 #### [facility] ([id number]) [address], [address] [place] [address] TSH 0.60 uIU/mL Normal 0.49-4.67 [facility] Comment on above: Performed By: #### C BCA, CMP, THYR, 2131-12, 07303-1 #### [facility] ([id number]) [address] [place] [address] VITAMIN B12on 05-19-2024 Cobalamin (Vitamin B12) [Mass/Vol] 319 pg/mL Normal 180-914 [facility] Comment on above: Performed By: #### C BCA, CMP, THYR, 2131-12, 36359-9 #### [facility] ([id number]) [address] [place] [address] Vitamin D+Metabolites [Mass/ Vol]on 05-19-2024 VITAMIN D 25 HYD TOT 97.5 ng/mL Normal 30-100 [facility] Comment on above: Result Comment: Vitamin D status 25 [place] Vitamin D Deficiency <20 ng/mL Insufficiency 20-29 ng/mL Sufficiency 30-100 ng/mL Toxicity >100 ng/mL NOTE: A pediatric reference range has not been established by the bus escort of this kit. The [place] [employer] recommends a Vitamin D level of = or >20ng/mL in infants and children. Performed By: #### C BCA, CMP, THYR, 2131-12, 86212-5 #### [facility] ([id number]) [address] [place] [address] ALBUMINon 02-05-2024 Albumin [Mass/Vol] 4.1 g/dL Normal 3.2-5.3 [facility] Comment on above: Performed By: #### C TANNER HARDY, 3040-3 #### [facility] ([id number]) [address] [place] [address] CALCIUMon 02-05-2024 Calcium [Mass/Vol] 8.9 mg/dL Normal 8.5-10.5 [facility] Comment on above: Performed By: #### C TANNER HARDY, 3040-3 #### [facility] ([id number]) [address] [place] [address] CREATININEon 02-05-2024 Creatinine [Mass/Vol] 0.70 mg/dL Normal 0.40-1.00 [facility] Comment on above: Result Comment: METH OD TRACEABLE TO IDMS STANDARD Performed By: #### C ATNNER HARDY, 3040-3 #### [facility] ([id number]) [address] [place] [address] GFR/1.73 sq M.predicted among non-blacks MDRD (S/P/Bld) [Vol rate/Area] 90 mL/min/{1.73_m2} Normal >59 [facility] Comment on above: Result Comment: Reported eGFR is based on the CKD-EPI 2020 equation that does not use a race coefficient. Performed By: #### C TANNER HARDY, 3040-3 #### [facility] ([id number]) [address] [place] [address] Vitamin D+Metabolites [Mass/ Vol]on 02-05-2024 VITAMIN D 25 HYD TOT 78.5 ng/mL Normal 30-100 [facility] Comment on above: Result Comment: Vitamin D status 25 [place] Vitamin D Deficiency <20 ng/mL Insufficiency 20-29 ng/mL Sufficiency 30-100 ng/mL Toxicity >100 ng/mL NOTE: A pediatric reference range has not been established by the bus escort of this kit. The [place] [employer] recommends a Vitamin D level of = or >20ng/mL in infants and children. Performed By: #### C BCA, CMP, 3040-3 #### [facility] ([id number]) [address] [place] [address], [place] [address] XR Knee - left 1 or 2 Viewso n 01-08-2024 Imaging Result: AP and lateral views of left knee showed severe varus deformity with vwna-ff-lebl articulation to the medial joint line, flattening of the articular surfaces to the medial joint line lateral joint line and patellofemoral joint. Subchondral sclerosis was noted at the medial joint line surfaces as well as the lateral joint line and patellofemoral joint. Marginal osteophytic formation was noted tricompartmentally. There is no evidence of fracture or dislocation. 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 Mckeon on 01-08-2024 [facility] [employer] Work Phone: XR Knee - left 1 or 2 Viewso n 01-07-2024 Radiology Study observation (narrative) [facility] GI PANELon 12-26-2023 Gastrointestinal pathogens DNA and RNA panel RADHA+non-probe (Stl) SPECIMEN SOURCE STOOL CAMPYLOBACTER Not detected (qualifier value) PLESIOMONAS Not detected (qualifier value) SALMONELLA Not detected (qualifier value) VIBRIO Not detected (qualifier value) VIBRIO CHOLERAE Not detected (qualifier value) Y. ENTEROCOLITICA Not detected (qualifier value) AGGREGATIVE E COLI Not detected (qualifier value) PATHOGENIC E COLI Detected (qualifier value) Enteropathogenic Escherichia coli TOXIGENIC E COLI Not detected (qualifier value) SHIGA TOXIN E COLI Not detected (qualifier value) SHIGELLA-E COLI Not detected (qualifier value) CRYPTOSPORIDIUM Not detected (qualifier value) CYCLOSPORA Not detected (qualifier value) E HISTOLYTICA Not detected (qualifier value) GIARDIA LAMBLIA Not detected (qualifier value) ADENOVIRUS Not detected (qualifier value) ASTROVIRUS Not detected (qualifier value) NOROVIRUS Not detected (qualifier value) ROTAVIRUS A Not detected (qualifier value) SAPOVIRUS Not detected (qualifier value) Normal NDET [facility] Comment on above: Performed By: #### 8 2195-9 #### [facility] ([id number]) [address], [place] [address] [facility] ([id number]) [address] [place] [address] MAMM SCREENING BILATERAL W C resident doctor 12-26-2023 MAMM SCREENING BILATERAL W CAD MAMM SCREENING BILATERAL W CAD RACH Diaz QUAINTANCE 1945 [id number] EXAM: MAMM SCREENING BILATERAL W CAD, 12/26/2023 1:09 PM CLINICAL INDICATIONS: Screening, Encounter for screening mammogram for malignant neoplasm of breast COMPARISON: Multiple prior mammograms were viewed for comparison dating back to 04/09/2017 TECHNIQUE: Bilateral digital tomosynthesis MLO and CC views of the breasts were obtained, with creation of synthetic 2D views. Computer aided detection was utilized. FINDINGS: The breasts are heterogeneously dense, which may obscure small masses. There are no suspicious masses, calcifications, or areas of architectural distortion. IMPRESSION: No mammographic evidence of malignancy. BI-RADS: BI-RADS 1 - Negative Recommendation: Routine screening mammogram in 1 year. Finalized by Telma Sheikh MD on 12/26/2023 1:46 PM 1 c MAMM [address] [facility] BASIC METABOLIC PANLon 12-24 Anion gap [Moles/Vol] 10 mmol/L Normal 5-15 [facility] Comment on above: Performed By: #### B KIMBERLY, 2131-12 #### [facility] ([id number]) [address] [facility] [facility] [address] [place] [address] Calcium [Mass/Vol] 8.8 mg/dL Normal 8.5-10.5 [facility] Comment on above: Performed By: #### B KIMBERLY, 2131-12 #### [facility] ([id number]) [address] [place] [address] Chloride [Moles/Vol] 105 mmol/L Normal 98-109 [facility] Comment on above: Performed By: #### Lm HARRIS, 2131-12 #### [facility] ([id number]) [address] [place] [address] CO2 [Moles/Vol] 26 mmol/L Normal 22-32 [facility] Comment on above: Performed By: #### Lm HARRIS, 2131-12 #### [facility] ([id number]) [address], [address] [place] [address] Creatinine [Mass/Vol] 0.73 mg/dL Normal 0.40-1.00 [facility] Comment on above: Result Comment: METH OD TRACEABLE TO IDMS STANDARD Performed By: #### Lm HARRIS, 2131-12 #### [facility] ([id number]) [address], [address] [place] [address] GFR/1.73 sq M.predicted among non-blacks MDRD (S/P/Bld) [Vol rate/Area] 85 mL/min/{1.73_m2} Normal >59 [facility] Comment on above: Result Comment: Reported eGFR is based on the CKD-EPI 2020 equation that does not use a race coefficient. Performed By: #### Lm HARRIS, 2131-12 #### [facility] ([id number]) [address], [address] [place] [address] Glucose [Mass/Vol] 92 mg/dL Normal 65-99 [facility] Comment on above: Performed By: #### Lm HARRIS, 2131-12 #### [facility] ([id number]) [address], [address] [place] [address] Potassium [Moles/Vol] 3.4 mmol/L Low 3.5-5.0 [facility] Comment on above: Performed By: #### Lm HARRIS, 2131-12 #### [facility] ([id number]) [address], [address] [place] [address] Sodium [Moles/Vol] 141 mmol/L Normal 134-146 [facility] Comment on above: Performed By: #### Lm HARRIS, 9 #### [facility] ([id number]) [address], [address] [place] [address] Urea nitrogen [Mass/Vol] 22 mg/dL Normal 5-27 [facility] Comment on above: Performed By: #### Lm HARRIS, 2131-12 #### [facility] ([id number]) [address], [address] [place] [address] VITAMIN B12on 12-25-2023 Cobalamin (Vitamin B12) [Mass/Vol] pg/mL High 180-914 [facility] Comment on above: Performed By: #### Lm HARRIS, 2131-12 #### [facility] ([id number]) [address], [address] [place] [address] CBC AND AUTO DIFFon 12-21-19 24 ABSOLUTE BASOPHIL 0.0 X10E9/L Normal 0.0-0.2 [facility] Comment on above: Performed By: #### C HAYLEY, CMP, 3040-3 #### [facility] ([id number]) [address] [place] [address] ABSOLUTE NEUTROPHIL 7.4 X10E9/L High 1.5-6.6 [facility] Comment on above: Performed By: #### C BCA, CMP, 3040-3 #### [facility] ([id number]) [address] [place] [address] Basophils/100 WBC (Bld) 0.3 % Normal [facility] Comment on above: Performed By: #### C BCA, CMP, 3040-3 #### [facility] ([id number]) [address] [place] [address] Eosinophils (Bld) [#/Vol] 0.1 10*3/uL Normal 0.0-0.4 [facility] Comment on above: Performed By: #### Renee HARDY CMP, 3 #### [facility] ([id number]) [address] [place] [address] Eosinophils/100 WBC (Bld) 0.7 % Normal [facility] Comment on above: Performed By: #### Renee HARDY [facility], 3039-06 #### [facility] ([id number]) [address] [place] [address] Erythrocyte distribution width (RBC) [Ratio] 15.3 % High 11.5-15.0 [facility] Comment on above: Performed By: #### Renee HARDY [facility], 3039-06 #### [facility] ([id number]) [address] [place] [address] Hematocrit (Bld) [Volume fraction] 35.6 % Normal 35-47 [facility] Comment on above: Performed By: #### Renee HARDY [facility], 3039-06 #### [facility] ([id number]) [address] [place] [address] Hemoglobin (Bld) [Mass/Vol] 11.8 g/dL Normal 11.7-15.5 [facility] Comment on above: Performed By: #### Renee HARDY [facility], 3039-06 #### [facility] ([id number]) [address] [place] [address] Lymphocytes (Bld) [#/Vol] 1.1 10*3/uL Normal 1.0-3.5 [facility] Comment on above: Performed By: #### Renee HARDY CMP, 3039-06 #### [facility] ([id number]) [address] [place] [address] Lymphocytes/100 WBC (Bld) 11.6 % Normal [facility] Comment on above: Performed By: #### Renee HARDY CMP, 3039-06 #### [facility] ([id number]) [address] [place] [address] MCH (RBC) [Entitic mass] 27.8 pg Normal 27-34 [facility] Comment on above: Performed By: #### Renee HARDY CMP, 3039-06 #### [facility] ([id number]) [address] [place] [address] MCHC (RBC) [Mass/Vol] 33.1 g/dL Normal 32-36 [facility] Comment on above: Performed By: #### Renee HARDY CMP, 3039-06 #### [facility] ([id number]) [address] [place] [address] MCV (RBC) [Entitic vol] 84 fL Normal 80-100 [facility] Comment on above: Performed By: #### Renee HARDY CMP, 3039-06 #### [facility] ([id number]) [address] [place] [address] Monocytes (Bld) [#/Vol] 0.6 10*3/uL Normal 0-0.9 [facility] Comment on above: Performed By: #### Renee HARDY CMP, 3039-06 #### [facility] ([id number]) [address] [place] [address] Monocytes/100 WBC (Bld) 6.4 % Normal [facility] Comment on above: Performed By: #### Renee HARDY CMP, 3039-06 #### [facility] ([id number]) [address] [place] [address] Neutrophils/100 WBC (Bld) 81.0 % Normal [facility] Comment on above: Performed By: #### Renee HARDY CMP, 3039-06 #### [facility] ([id number]) [address] [place] [address] Platelet mean volume (Bld) [Entitic vol] 8.9 fL Normal 7-12 [facility] Comment on above: Performed By: #### C BCA, CMP, 3040-3 #### [facility] ([id number]) [address] [place] [address] Platelets (Bld) [#/Vol] 255 10*3/uL Normal 150-450 [facility] Comment on above: Performed By: #### C BCA, CMP, 0-3 #### [facility] ([id number]) [address] [place] [address] RBC COUNT 4.24 X10E12/L Normal 3.80-5.20 [facility] Comment on above: Performed By: #### Renee BCA, CMP, 3039-3 #### [facility] ([id number]) [address] [place] [address] WBC (Bld) [#/Vol] 9.1 10*3/uL Normal 4.0-11.0 [facility] Comment on above: Performed By: #### Renee BCA, CMP, 0-3 #### [facility] ([id number]) [address] [place] [address] COMPREHENSIVE METABOLIC PANE Ulices 2023 Albumin [Mass/Vol] 4.2 g/dL Normal 3.2-5.3 [facility] Comment on above: Performed By: #### Renee BCA, CMP, 0-3 #### [facility] ([id number]) [address] [place] [address] ALP [Catalytic activity/Vol] 63 U/L Normal 39-130 [facility] Comment on above: Performed By: #### Renee BCA, CMP, 3039-3 #### [facility] ([id number]) [address] [place] [address] ALT [Catalytic activity/Vol] 14 U/L Normal 0-31 [facility] Comment on above: Performed By: #### C TANNER HARDY, 3040-3 #### [facility] ([id number]) [address] [place] [address] Anion gap [Moles/Vol] 7 mmol/L Normal 5-15 [facility] Comment on above: Performed By: #### C TANNER HARDY, 3039-3 #### [facility] ([id number]) [address] [place] [address] AST [Catalytic activity/Vol] 20 U/L Normal 0-41 [facility] Comment on above: Performed By: #### Renee HARDY CMP, 3039-3 #### [facility] ([id number]) [address] [place] [address] [place] [address] Bilirubin [Mass/Vol] 0.5 mg/dL Normal 0.3-1.2 [facility] Comment on above: Performed By: #### Renee HARDY [facility], 3039-3 #### [facility] ([id number]) [address] [place] [address] Calcium [Mass/Vol] 8.5 mg/dL Normal 8.5-10.5 [facility] Comment on above: Performed By: #### Renee HARDY CMP, 0-3 #### [facility] ([id number]) [address] [place] [address] [place] [address] Chloride [Moles/Vol] 105 mmol/L Normal 98-109 [facility] Comment on above: Performed By: #### Renee HARDY CMP, 0-3 #### [facility] ([id number]) [address] [place] [address] CO2 [Moles/Vol] 22 mmol/L Normal 22-32 [facility] Comment on above: Performed By: #### C HAYLEY [facility], 3040-3 #### [facility] ([id number]) [address] [place] [address] Creatinine [Mass/Vol] 0.64 mg/dL Normal 0.40-1.00 [facility] Comment on above: Result Comment: METH OD TRACEABLE TO IDMS STANDARD Performed By: #### C TANNER HARDY, 3 #### [facility] ([id number]) [address] [place] [address] eGFR (CKD-EPI) NON-RACE DEPENDENT >90 Normal >59 [facility] Comment on above: Result Comment: Reported eGFR is based on the CKD-EPI 2020 equation that does not use a race coefficient. Performed By: #### C TANNER HARDY, 3039-3 #### [facility] ([id number]) [address] [place] [address] Glucose [Mass/Vol] 123 mg/dL High 65-99 [facility] Comment on above: Performed By: #### C HAYLEY [facility], 3 #### [facility] ([id number]) [address] [place] [address] Potassium [Moles/Vol] 3.8 mmol/L Normal 3.5-5.0 [facility] Comment on above: Performed By: #### C TANNER HARDY, 3 #### [facility] ([id number]) [address] [place] [address] Protein [Mass/Vol] 7.3 g/dL Normal 6.0-8.0 [facility] Comment on above: Performed By: #### C TANNER HARDY, 3039-3 #### [facility] ([id number]) [address] [place] [address] Sodium [Moles/Vol] 134 mmol/L Normal 134-146 [facility] Comment on above: Performed By: #### C HAYLEY, [facility], 3040-3 #### [facility] ([id number]) [address] [place] [address] Urea nitrogen [Mass/Vol] 18 mg/dL Normal 5-27 [facility] Comment on above: Performed By: #### C BCA, [facility], 3040-3 #### [facility] ([id number]) [address] [place] [address] LIPASEon 2023 Lipase [Catalytic activity/Vol] 26 U/L Normal 17-40 [facility] Comment on above: Performed By: #### C HAYLEY, [facility], 3040-3 #### [facility] ([id number]) [address] [place] [address] SARS/FLU A+B/RSV by NAAT/Mol ecularon 2023 SARS/FLU [...] operators who are performing tests using either [employer] DX or [employer] systems and is limited to laboratories that [...] specimen repeat. Fact Sheet for Healthcare Providers: https://www.fda.gov/m edia/704587/download Fact Sheet for Patients: https://www.[facility].gov/m edia/869095/download Normal [facility] Comment on above: Performed By: #### C OVFLR #### [facility] ([id number]) [address] [place] [id number] URN MACROSCOPIC NURon 2023 BILIRUBIN STUART Negative Normal NEG [facility] Comment on above: Performed By: #### N UM #### [facility] ([id number]) [address] [place] [id number] BLOOD/HGB STUART Small Abnormal NEG [facility] Comment on above: Performed By: #### N UM #### [facility] ([id number]) [address] [place] [address] 72000 GLUCOSE STUART Negative Normal NEG [facility] Comment on above: Performed By: #### N UM #### [facility] ([id number]) [address] [place] [id number] KETONES STUART Trace Abnormal NEG [facility] Comment on above: Performed By: #### N UM #### [facility] ([id number]) [address] [address], [place] [address] LEUKOCYTE ESTERASE STUART Trace Abnormal NEG [facility] Comment on above: Performed By: #### N UM #### [facility] ([id number]) [address] [place] [address] NITRITE STUART Negative Normal NEG [facility] Comment on above: Performed By: #### N UM #### [facility] ([id number]) [address] [place] [address] PH STUART 5.5 Normal 5.0-8.5 [facility] Comment on above: Performed By: #### N UM #### [facility] ([id number]) [address] [place] [address] PROTEIN STUART Negative Normal NEG [facility] Comment on above: Performed By: #### N UM #### [facility] ([id number]) [address] [place] [address] SPECIFIC GRAVITY STUART 1.015 Normal 1.003-1.035 [facility] Comment on above: Performed By: #### N UM #### [facility] ([id number]) [address] [place] [address] UROBILINOGEN STUART 0.2 eu/dL Normal <1.1 [facility] Comment on above: Performed By: #### N UM #### [facility] ([id number]) [address] [place] [address] [place] [address] $ Arthrocentesison 4 Sangeetha Quick DO 07/25/2023 2:50 PM $ Arthrocentesis Date/Time: 07/25/2023 11:44 AM Performed by: Sangeetha Quick DO Authorized by: Sangeetha Quick DO Fire Risk Assessment Score Procedure site above the Xiphoid 0 Open O2 source (mask/cannula) 0 Ignition source (Cautery, Fiberoptic Light, Laser) 0 Total Fire Risk Assessment Score 0 Verbal consent obtained?: Yes Written consent obtained?: No Risks and benefits: Risks, benefits and alternatives were discussed Consent given by: Patient Patient states understanding of procedures being performed: Yes Patient's understanding of procedure matches consent: Yes Procedure consent matches procedure scheduled: Yes Relevant documents present and verified: Yes Test results available and properly labeled: Yes Site marked: Yes Imaging studies available: Yes Required items: Required blood products, implants, devices and special equipment available Patient identity confirmed: Verbally with patient Indications: Osteoarthritis Body area: Knee Joint: Left knee Preparation: Patient was prepped and draped in usual sterile fashion Needle size: 22 G Ultrasound guidance: No Approach: Medial Aspirate: Clear Lidocaine HCL 1% amount (ml): 1 Methylprednisolone amount (mg): 40 Patient tolerance: Patient tolerated the procedure well with no immediate complications Procedure was completed Vital signs stable during the procedure Complications: none Interventions: none Post Anesthesia Evaluation (excludes pre-procedural restrictions and appropriate to age) patient returned to pre-procedure baseline post-procedure nausea and vomiting status reviewed post-procedure vital signs reviewed and stable MANUALLY TRANSCRIBED RESULTS [facility] XR KNEE LT 3 VWSon XR KNEE [...] Alejandro MD on 06/27/2023 1:[address] [facility] COMPREHENSIVE METABOLIC PANE Ulices 05-30-2023 Albumin [Mass/Vol] 4.3 g/dL Normal 3.2-5.3 [facility] Comment on above: Performed By: #### C KIMBERLY, 39467-6, THYR #### [facility] ([id number]) [address], [address] [place] [address] ALP [Catalytic activity/Vol] 63 U/L Normal 39-130 [facility] Comment on above: Performed By: #### C KIMBERLY, 69918-7, THYR #### [facility] ([id number]) [address], [address] [place] [address] ALT [Catalytic activity/Vol] 15 U/L Normal 0-31 [facility] Comment on above: Performed By: #### Renee HARRIS, 94677-9, THYR #### [facility] ([id number]) [address], [address] [place] [address] Anion gap [Moles/Vol] 6 mmol/L Normal 5-15 [facility] Comment on above: Performed By: #### Renee HARRIS, 44609-6, THYR #### [facility] ([id number]) [address], [address] [place] [address] AST [Catalytic activity/Vol] 15 U/L Normal 0-41 [facility] Comment on above: Performed By: #### Renee HARRIS, 70080-2, THYR #### [facility] ([id number]) [address], [address] [place] [address] Bilirubin [Mass/Vol] 0.3 mg/dL Normal 0.3-1.2 [facility] Comment on above: Performed By: #### Renee HARRIS, 88570-2, THYR #### [facility] ([id number]) [address], [address] [place] [address] Calcium [Mass/Vol] 9.1 mg/dL Normal 8.5-10.5 [facility] Comment on above: Performed By: #### Renee HARRIS 00011-8, THYR #### [facility] ([id number]) [address], [address] [place] [address] Chloride [Moles/Vol] 105 mmol/L Normal 98-109 [facility] Comment on above: Performed By: #### Renee HARRIS, 15000-8, THYR #### [facility] ([id number]) [address], [address] [place] [address] CO2 [Moles/Vol] 31 mmol/L Normal 22-32 [facility] Comment on above: Performed By: #### C KIMBERLY, 72304-5, THYR #### [facility] ([id number]) [address], [address] [place] [address] Creatinine [Mass/Vol] 0.65 mg/dL Normal 0.40-1.00 [facility] Comment on above: Result Comment: METH OD TRACEABLE TO IDMS STANDARD Performed By: #### C KIMBERLY, 23583-6, THYR #### [facility] ([id number]) [address], [address] [place] [address] eGFR (CKD-EPI) NON-RACE DEPENDENT >90 Normal >59 [facility] Comment on above: Result Comment: Reported eGFR is based on the CKD-EPI 2020 equation that does not use a race coefficient. Performed By: #### Renee HARRIS 30262-2, THYR #### [facility] ([id number]) [address], [address] [place] [address] Glucose [Mass/Vol] 101 mg/dL High 65-99 [facility] Comment on above: Performed By: #### Renee HARRIS 57273-6, THYR #### [facility] ([id number]) [address], [address] [place] [address] Potassium [Moles/Vol] 4.4 mmol/L Normal 3.5-5.0 [facility] Comment on above: Performed By: #### Renee HARRIS 82971-3, THYR #### [facility] ([id number]) [address], [address] [place] [address] Protein [Mass/Vol] 6.9 g/dL Normal 6.0-8.0 [facility] Comment on above: Performed By: #### Renee HARRIS, 43201-3, THYR #### [facility] ([id number]) [address], [address] [place] [address] Sodium [Moles/Vol] 142 mmol/L Normal 134-146 [facility] Comment on above: Performed By: #### C KIMBERLY, 16843-6, THYR #### [facility] ([id number]) [address], [address] [place] [address] Urea nitrogen [Mass/Vol] 18 mg/dL Normal 5-27 [facility] Comment on above: Performed By: #### C KIMBERLY, 55373-4, THYR #### [facility] ([id number]) [address], [address] [place] [address] Comprehensive metabolic pane ulices 05-30-2023 Albumin [Mass/Vol] 4.3 g/dL 3.2 - 5.3 g/dL [facility] ALP [Catalytic activity/Vol] 63 U/L 39 - 130 U/L [facility] ALT No additional P-5'-P [Catalytic activity/Vol] 15 U/L 0 - 31 U/L [facility] Anion gap [Moles/Vol] 6 mmol/L 5 - 15 mmol/L [facility] AST [Catalytic activity/Vol] 15 U/L 0 - 41 U/L [facility] Bilirubin [Mass/Vol] 0.3 mg/dL 0.3 - 1 .2 mg/dL [facility] Calcium [Mass/Vol] 9.1 mg/dL 8.5 - 10. 5 mg/dL [facility] Chloride [Moles/Vol] 105 mmol/L 98 - 10 9 mmol/L [facility] CO2 [Moles/Vol] 31 mmol/L 22 - 32 mmol/L [facility] Creatinine [Mass/Vol] 0.65 mg/dL 0.40 - 1.00 mg/dL [facility] Comment on above: METHOD TRACEABLE TO IDMS STANDARD eGFR (CKD-EPI)non-race dependent - PINF [facility] Comment on above: Reported eGFR is based on the CKD-EPI 2020 equation that does not use a race coefficient. Glucose [Mass/Vol] 101 mg/dL High 65 - 99 mg/dL [facility] Potassium [Moles/Vol] 4.4 mmol/L 3.5 - 5.0 mmol/L [facility] Protein [Mass/Vol] 6.9 g/dL 6.0 - 8.0 g/dL [facility] Sodium [Moles/Vol] 142 mmol/L 134 - 146 mmol/L [facility] Urea nitrogen [Mass/Vol] 18 mg/dL 5 - 27 mg/dL [facility] Lipid 1996 panelon 4 Cholesterol [Mass/Vol] 140 mg/dL Low 150 - 200 mg/dL [facility] Cholesterol in HDL [Mass/Vol] 55 mg/dL 39 - PINF mg/dL [facility] Comment on above: HDL <40 mg/dL - High Risk HDL > or = 40mg/dL- Desirable HDL >60 mg/dL - Negative Risk Cholesterol in LDL [Mass/Vol] 69 mg/dL NINF - 130 mg/dL [facility] Comment on above: LDL <100 mg/dL - Desirable LDL >160 mg/dL - High Risk Cholesterol in VLDL [Mass/Vol] 16 mg/dL 0 - 30 mg/dL [facility] Cholesterol.total/Cho lesterol in HDL [Mass ratio] 2.5 {ratio} 1.0 - 5.0 [facility] Triglyceride [Mass/Vol] 82 mg/dL 27 - 150 mg/dL [facility] Cholesterol [Mass/Vol] 140 mg/dL Low 150-200 [facility] Comment on above: Performed By: #### C KIMBERLY, 34398-8, THYR #### [facility] ([id number]) [address] [place] [address] Cholesterol in HDL [Mass/Vol] 55 mg/dL Normal >39 [facility] Comment on above: Result Comment: HDL <40 mg/dL - High Risk HDL > or = 40mg/dL- Desirable HDL >60 mg/dL - Negative Risk Performed By: #### Renee HARRIS, 62617-4, THYR #### [facility] ([id number]) [address], [address] [place] [address] Cholesterol in LDL [Mass/Vol] 69 mg/dL Normal <130 [facility] Comment on above: Result Comment: LDL <100 mg/dL - Desirable LDL >160 mg/dL - High Risk Performed By: #### Renee HARRIS, 66308-2, THYR #### [facility] ([id number]) [address], [address] [place] [address] Cholesterol in VLDL [Mass/Vol] 16 mg/dL Normal 0-30 [facility] Comment on above: Performed By: #### Renee HARRIS, 41198-5, THYR #### [facility] ([id number]) [address], [address] [place] [address] CHOLESTEROL:HDL 2.5 Normal 1.0-5.0 [facility] Comment on above: Performed By: #### Renee HARRIS, 81493-9, THYR #### [facility] ([id number]) [address], [address] [place] [address] Triglyceride [Mass/Vol] 82 mg/dL Normal 27-150 [facility] Comment on above: Performed By: #### Renee HARRIS, 56043-4, THYR #### [facility] ([id number]) [address], [address] [place] [address] No Panel Informationon 05-30 Interpretation and review of laboratory results Abnormal [facility] THYROID PROFILEon 05-30-2023 Free T4 [Mass/Vol] 0.92 ng/dL Normal 0.61-1.60 [facility] Comment on above: Performed By: #### C KIMBERLY, 97028-6, THYR #### [facility] ([id number]) [address] [place] [address] TSH 0.95 uIU/mL Normal 0.49-4.67 [facility] Comment on above: Performed By: #### C KIMBERLY, 34508-1, THYR #### [facility] ([id number]) [address], [address] [place] [address] Thyroid profile includes TSH FT4on 05-30-2023 Free T4 [Mass/Vol] 0.92 ng/dL 0.61 - 1. 60 ng/dL [facility] TSH Qn 0.95 m[IU]/L [facility] MRI SHOULDER LT WO CONon MRI SHOULDER [...] but suspected to be intact. 4. Small subacromial-subdeltoi d bursal fluid collection. 5. Thinning of articular cartilage. Electronically authenticated by: DL RANGEL Date: 2022-05-18 09:45 Normal [facility] METABOLIC PANE [facility] 08-29-2021 Albumin [Mass/Vol] 4.0 g/dL Normal 3.6-5.1 [facility] Comment on above: Performed By: #### 7 600, 927, 56504 #### [facility] [place] [address] Silo Operator: Finn Akins MD Albumin/Globulin [Mass ratio] 1.9 {ratio} Normal 1.0-2.5 [facility] Comment on above: Performed By: #### 7 600, 927, 90531 #### [facility] [place] [address] Silo Operator: Finn Akins MD ALP [Catalytic activity/Vol] 56 U/L Normal 37-153 [facility] Comment on above: Performed By: #### 7 600, 927, 70575 #### [facility] [place] [address] Silo Operator: Finn Akins MD ALT [Catalytic activity/Vol] 18 U/L Normal 6-29 [facility] Comment on above: Performed By: #### 7 600, 927, 90488 #### [facility] [place] [address] Silo Operator: Finn Akins MD AST [Catalytic activity/Vol] 18 U/L Normal 10-35 [facility] Comment on above: Performed By: #### 7 600, 927, 95607 #### [facility] [place] [address] Silo Operator: Finn Akins MD Bilirubin [Mass/Vol] 0.4 mg/dL Normal 0.2-1.2 [facility] Comment on above: Performed By: #### 7 600, 927, 89168 #### [facility] [address], [address] [place] [address] Silo Operator: Finn Akins MD BUN/CREATININE RATIO NOT APPLICABLE Normal 6-22 [facility] Comment on above: Performed By: #### 7 600, 927, 33450 #### [facility] [place] [address] Silo Operator: Finn Akins MD Calcium [Mass/Vol] 8.8 mg/dL Normal 8.6-10.4 [facility] Comment on above: Performed By: #### 7 600, 927, 16798 #### [facility] [place] [address] Silo Operator: Finn Akins MD Chloride [Moles/Vol] 106 mmol/L Normal 98-110 [facility] Comment on above: Performed By: #### 7 600, 927, 70482 #### [facility] [place] [address] Silo Operator: Finn Akins MD CO2 [Moles/Vol] 30 mmol/L Normal 20-32 [facility] Comment on above: Performed By: #### 7 600, 927, 48204 #### [facility] [place] [address] Silo Operator: Finn Akins MD Creatinine [Mass/Vol] 0.67 mg/dL Normal 0.60-0.93 [facility] Comment on above: Result Comment: For patients >49 years of age, the reference limit for Creatinine is approximately 13% higher for people identified as -Beninese. Performed By: #### 7 600, 927, 88202 #### [facility] [address], [address] [place] [address] Silo Operator: Finn Akins MD eGFR NON-AFR. IRANIAN 87 mL/min/1.73m2 Normal > OR = 60 [facility] Comment on above: Performed By: #### 7 600, 927, 00256 #### [facility] of [place] [address] Silo Operator: Finn Akins MD GFR/1.73 sq M.predicted among blacks MDRD (S/P/Bld) [Vol rate/Area] 101 mL/min/{1.73_m2} Normal > OR = 60 [facility] Comment on above: Performed By: #### 7 600, 927, 41080 #### [facility] [place] [address] Silo Operator: Finn Akins MD Globulin (S) [Mass/Vol] 2.1 g/dL Normal 1.9-3.7 [facility] Comment on above: Performed By: #### 7 600, 927, 27156 #### [facility] of [address], [address] [place] [address] Silo Operator: Finn Akins MD Glucose [Mass/Vol] 96 mg/dL Normal 65-99 [facility] Comment on above: Result Comment: Fasting reference interval Performed By: #### 7 600, 927, 13402 #### [facility] [place] [address] Silo Operator: Finn Akins MD Potassium [Moles/Vol] 3.9 mmol/L Normal 3.5-5.3 [facility] Comment on above: Performed By: #### 7 600, 927, 04212 #### [facility] [place] [address] Silo Operator: Finn Akins MD Protein [Mass/Vol] 6.1 g/dL Normal 6.1-8.1 [facility] Comment on above: Performed By: #### 7 600, 927, 01203 #### [facility] [address] [address] Silo Operator: Finn Akins MD Sodium [Moles/Vol] 143 mmol/L Normal 135-146 [facility] Comment on above: Performed By: #### 7 600, 927, 23792 #### [facility] [place] [address] Silo Operator: Finn Akins MD Urea nitrogen [Mass/Vol] 17 mg/dL Normal 7-25 [facility] Comment on above: Performed By: #### 7 600, 927, 53324 #### [facility] [place] [address] Silo Operator: Finn Akins MD LIPID PANEL, [facility] 08-13 Cholesterol [Mass/Vol] 126 mg/dL Normal <200 [facility] Comment on above: Order Comment: FASTI NG:YES FASTING: YES Performed By: #### 7 600, 927, 20819 #### [facility] [place] [address] Silo Operator: Finn Akins MD Cholesterol in HDL [Mass/Vol] 46 mg/dL Low > OR = 50 [facility] Comment on above: Order Comment: FASTI NG:YES FASTING: YES Performed By: #### 7 600, 927, 52295 #### [facility] [place] [address] Silo Operator: Finn Akins MD Cholesterol in LDL [...] LDL-C. Aguilar HOLCOMB et al. MCKAY. 2013;310(19): 6834-8638 (http://education.[employer]/faq/ZZI102) Performed By: #### 7 600, 927, 04359 #### [facility] [address], [address] [place] [address] Silo Operator: Finn Akins MD Cholesterol.total/Cho lesterol in HDL [Mass ratio] 2.7 {ratio} Normal <5.0 [facility] Comment on above: Order Comment: FASTI NG:YES FASTING: YES Performed By: #### 7 600, 927, 83552 #### [facility] [address], [address] [place] [address] Silo Operator: Finn Akins MD NON HDL CHOLESTEROL 80 mg/dL (calc) Normal <130 [facility] Comment on above: Order Comment: FASTI NG:YES FASTING: YES Result Comment: For patients with diabetes plus 1 major ASCVD risk factor, treating to a non-HDL-C goal of <100 mg/dL (LDL-C of <70 mg/dL) is considered a therapeutic option. Performed By: #### 7 600, 927, 21572 #### [facility] [address], [address] [place] [address] Silo Operator: Finn Akins MD Triglyceride [Mass/Vol] 86 mg/dL Normal <150 [facility] Comment on above: Order Comment: FASTI NG:YES FASTING: YES Performed By: #### 7 600, 927, 87946 #### [facility] [place] [address] Silo Operator: Finn Akins MD VITAMIN B12on 08-29-2021 Cobalamin (Vitamin B12) [Mass/Vol] 184 pg/mL Low 200-1100 [facility] Comment on above: Performed By: #### 7 600, 927, 84101 #### [facility] [place] [address] Silo Operator: Finn Akins MD BASIC METABOLIC PANELon Calcium [Mass/Vol] 9.2 mg/dL Normal 8.6-10.4 [facility] Comment on above: Performed By: #### 9 38, 28016, 82462 #### [facility] [address], [address] [place] [address] Silo Operator: Finn Akins MD Chloride [Moles/Vol] 102 mmol/L Normal 98-110 [facility] Comment on above: Performed By: #### 9 27, 57592, 27056 #### [facility] [address], [address] [place] [address] Silo Operator: Finn Akins MD CO2 [Moles/Vol] 28 mmol/L Normal 20-32 [facility] Comment on above: Performed By: #### 9 , 37241, 80024 #### [facility] [address], [address] [place] [address] Silo Operator: Finn Akins MD Creatinine [Mass/Vol] 0.56 mg/dL Low 0.60-0.[address] [facility] Comment on above: Result Comment: For patients >49 years of age, the reference limit for Creatinine is approximately 13% higher for people identified as -Beninese. Performed By: #### 9 , 46779, 32225 #### [facility] [address], [address] [place] [address] Silo Operator: Finn Akins MD eGFR NON-AFR. IRANIAN 93 mL/min/1.73m2 Normal > OR = 60 [facility] Comment on above: Performed By: #### 9 , 77852, 18103 #### [facility] [address], [address] [place] [address] Silo Operator: Finn Akins MD GFR/1.73 sq M.predicted among blacks MDRD (S/P/Bld) [Vol rate/Area] 107 mL/min/{1.73_m2} Normal > OR = 60 [facility] Comment on above: Performed By: #### 9 , 96583, 02959 #### [facility] [address], [address] [place] [address] Silo Operator: Finn Akins MD Glucose [Mass/Vol] 97 mg/dL Normal 65-99 [facility] Comment on above: Result Comment: Fasting reference interval Performed By: #### 9 27, 41677, 10125 #### [facility] of [address], [address] [place] [address] Silo Operator: Finn Akins MD Potassium [Moles/Vol] 3.8 mmol/L Normal 3.5-5.[address] [facility] Comment on above: Performed By: #### 9 , 53960, 42114 #### [facility] of [address], [address] [place] [address] Silo Operator: Finn Akins MD Sodium [Moles/Vol] 140 mmol/L Normal 135-146 [facility] Comment on above: Performed By: #### 9 , 71927, 13229 #### [facility] of [address], [address] [place] [address] Silo Operator: Finn Akins MD Urea nitrogen [Mass/Vol] 14 mg/dL Normal 7-25 [facility] Comment on above: Performed By: #### 9 , 07453, 32463 #### [facility] of [address], [address] [place] [address] Silo Operator: Finn Akins MD Urea nitrogen/Creatinine [Mass ratio] 25 mg/mg High 6-22 [facility] Comment on above: Performed By: #### 9 , 50817, 98648 #### [facility] of [address], [address] [place] [address] Silo Operator: Finn Akins MD TSH+FREE T4on 04-19-2021 Free T4 [Mass/Vol] 1.2 ng/dL Normal 0.8-1.8 [facility] Comment on above: Performed By: #### 9 27, 30734, 44798 #### [facility] of [address], [address] [place] [address] Silo Operator: Finn Akins MD TSH Qn 0.55 m[IU]/L Normal 0.40-4.50 [facility] Comment on above: Performed By: #### 9 , 11077, 95465 #### [facility] [address], [address] [place] [address] Silo Operator: Finn Akins MD VITAMIN B12on 04-19-2021 Cobalamin (Vitamin B12) [Mass/Vol] 133 pg/mL Low 200-1100 [facility] Comment on above: Performed By: #### 9 27, 01700, 00155 #### [facility] [address] [place] [address], [address] [place] [address] Silo Operator: Finn Akins MD Vital Signs Date Time Vital Sign Value Performing Clinician Facility 05-19-2024 14:32-0500 Body height 149.9 cm Sangeetha Manjinderelieser [place] Work Phone: [facility] 05-19-2024 14:32-0500 Body mass index (BMI) [Ratio] 30.13 kg/m2 Sangeetha Quick DO Work Phone: [facility] 05-19-2024 14:32-0500 Body temperature 98.49 [degF] Sangeetha Quick DO Work Phone: [facility] 05-19-2024 14:32-0500 Body weight 67.68 kg Sangeetha Quick DO Work Phone: [facility] 05-19-2024 14:32-0500 Diastolic blood pressure 78 mm[Hg] Sangeetha Quick DO Work Phone: [facility] 05-19-2024 14:32-0500 Heart rate 79 /min Sangeetha Quick DO Work Phone: [facility] 05-19-2024 14:32-0500 SaO2% (BldA) [Mass fraction] 97 % Sangeetha Quick DO Work Phone: [facility] 05-19-2024 14:32-0500 Systolic blood pressure 110 mm[Hg] Sangeetha Quick DO Work Phone: [facility] 02-27-2024 13:55-0500 Body height 149.9 cm Sangeetha Quick DO Work Phone: [facility] [employer] 02-27-2024 13:55-0500 Body mass index (BMI) [Ratio] 29.49 kg/m2 Sangeetha Quick DO Work Phone: [facility] [employer] 02-27-2024 13:55-0500 Body weight 66.22 kg Sangeetha Quick DO Work Phone: [facility] [employer] 02-27-2024 13:55-0500 Diastolic blood pressure 56 mm[Hg] Sangeetha Quick DO Work Phone: [facility] [employer] 02-27-2024 13:55-0500 Systolic blood pressure 107 mm[Hg] Sangeetha Quick DO Work Phone: [facility] 02-06-2024 14:17-0400 Body height 149.9 cm Pfo 4 [facility] 02-06-2024 14:17-0400 Body mass index (BMI) [Ratio] 29.63 kg/m2 Pfo 4 [facility] 02-06-2024 14:17-0400 Body temperature 98.2 [degF] Pfo 4 [facility] 02-06-2024 14:17-0400 Body weight 66.59 kg Pfo 4 [facility] 02-06-2024 14:17-0400 Diastolic blood pressure 56 mm[Hg] Pfo 4 [facility] 02-06-2024 14:17-0400 Heart rate 79 /min Pfo 4 [facility] 02-06-2024 14:17-0400 Respiratory rate 16 /min Pfo 4 [facility] 02-06-2024 14:17-0400 SaO2% (BldA) [Mass fraction] 99 % Pfo 4 [facility] 02-06-2024 14:17-0400 Systolic blood pressure 107 mm[Hg] Pfo 4 [facility] 01-20-2024 11:57-0400 Body height 149.9 cm Sangeetha Quick DO Work Phone: [facility] 01-20-2024 11:57-0400 Body mass index (BMI) [Ratio] 28.92 kg/m2 Sangeetha Dunbars DO Work Phone: [facility] 01-20-2024 11:57-0400 Body temperature 97.3 [degF] Sangeetha Dunbars DO Work Phone: [facility] 01-20-2024 11:57-0400 Body weight 64.95 kg Sangeetha Dunbars DO Work Phone: [facility] 01-20-2024 11:57-0400 Diastolic blood pressure 80 mm[Hg] Sangeetha Dunbars DO Work Phone: [facility] 01-20-2024 11:57-0400 Heart rate 65 /min Sangeetha Dunbars DO Work Phone: [facility] 01-20-2024 11:57-0400 Respiratory rate 18 /min Sangeetha Dunbars DO Work Phone: [facility] 01-20-2024 11:57-0400 SaO2% (BldA) [Mass fraction] 100 % Sangeetha Dunbars DO Work Phone: [facility] 01-20-2024 11:57-0400 Systolic blood pressure 150 mm[Hg] Sangeetha Quick DO Work Phone: [facility] 12-24-2023 12:43-0400 Body height 149.9 cm Sangeetha Dunbars DO Work Phone: [facility] 12-24-2023 12:43-0400 Body mass index (BMI) [Ratio] 27.91 kg/m2 Sangeetha Dunbars DO Work Phone: [facility] 12-24-2023 12:43-0400 Body temperature 98.6 [degF] Sangeetha Dunbars DO Work Phone: [facility] 12-24-2023 12:43-0400 Body weight 62.69 kg Sangeetha Dunbars DO Work Phone: [facility] 12-24-2023 12:43-0400 Diastolic blood pressure 70 mm[Hg] Sangeetha Dunbars DO Work Phone: [facility] 12-24-2023 12:43-0400 Heart rate 83 /min aSngeetha Dunbars DO Work Phone: [facility] 12-24-2023 12:43-0400 SaO2% (BldA) [Mass fraction] 99 % Sangeetha Dunbars DO Work Phone: [facility] 12-24-2023 12:43-0400 Systolic blood pressure 120 mm[Hg] Sangeetha Jiménezhas DO Work Phone: [facility] 07-25-2023 10:52-0400 Body height 149.9 cm Sangeetha Dunbars DO Work Phone: [facility] 07-25-2023 10:52-0400 Body mass index (BMI) [Ratio] 30.98 kg/m2 Sangeetha Dunbars DO Work Phone: [facility] 07-25-2023 10:52-0400 Body temperature 99 [degF] Sangeetha Dunbars DO Work Phone: [facility] 07-25-2023 10:52-0400 Body weight 69.58 kg Sangeetha Dunbars DO Work Phone: [facility] 07-25-2023 10:52-0400 Diastolic blood pressure 72 mm[Hg] Sangeetha Jiménezhas DO Work Phone: [facility] 07-25-2023 10:52-0400 Heart rate 68 /min Sangeetha Jiménezhas DO Work Phone: [facility] 07-25-2023 10:52-0400 SaO2% (BldA) [Mass fraction] 98 % Sangeetha Dunbars DO Work Phone: [facility] 07-25-2023 10:52-0400 Systolic blood pressure 118 mm[Hg] Sangeetha Jiménezhas DO Work Phone: [facility] [employer] 07-01-2023 15:40-0400 Body height 149.9 cm Sangeetha Dnubars DO Work Phone: [facility] [employer] 07-01-2023 15:40-0400 Body mass index (BMI) [Ratio] 31.1 kg/m2 Sangeetha Dunbars DO Work Phone: [facility] [employer] 07-01-2023 15:40-0400 Body temperature 98.2 [degF] Sangeetha Dunbars DO Work Phone: [facility] [employer] 07-01-2023 15:40-0400 Body weight 69.85 kg Sangeetha Dunbars DO Work Phone: [facility] [employer] 07-01-2023 15:40-0400 Diastolic blood pressure 70 mm[Hg] Sangeetha Quick DO Work Phone: [facility] [employer] 07-01-2023 15:40-0400 Heart rate 87 /min Sangeetha Quick DO Work Phone: [facility] [employer] 07-01-2023 15:40-0400 SaO2% (BldA) [Mass fraction] 99 % Sangeetha Quick DO Work Phone: [facility] [employer] 07-01-2023 15:40-0400 Systolic blood pressure 136 mm[Hg] Sangeetha Quick DO Work Phone: [facility] 06-25-2023 11:23-0400 Body height 149.9 cm Sangeetha Dunbars DO Work Phone: [facility] [employer] 06-25-2023 11:23-0400 Body mass index (BMI) [Ratio] 31.06 kg/m2 Sangeetha Dunbars DO Work Phone: [facility] [employer] 06-25-2023 11:23-0400 Body temperature 98.29 [degF] Sangeetha Dunbars DO Work Phone: [facility] [employer] 06-25-2023 11:23-0400 Body weight 69.76 kg Sangeetha Dunbars DO Work Phone: [facility] [employer] 06-25-2023 11:23-0400 Diastolic blood pressure 70 mm[Hg] Sangeetha Dunbars DO Work Phone: [facility] 06-25-2023 11:23-0400 Heart rate 73 /min Sangeetha Dunbars DO Work Phone: [facility] 06-25-2023 11:23-0400 SaO2% (BldA) [Mass fraction] 97 % Sangeetha Dunbars DO Work Phone: [facility] [employer] 06-25-2023 11:23-0400 Systolic blood pressure 120 mm[Hg] Sangeetha Dunbars DO Work Phone: [facility] 05-30-2023 10:29-0500 Body height 149.9 cm Sangeetha Dunbars DO Work Phone: [facility] 05-30-2023 10:29-0500 Body mass index (BMI) [Ratio] 30.7 kg/m2 Sangeetha Dunbars DO Work Phone: [facility] 05-30-2023 10:29-0500 Body temperature 98.1 [degF] Sangeetha Dunbars DO Work Phone: [facility] 05-30-2023 10:29-0500 Body weight 68.95 kg Sangeetha Dunbars DO Work Phone: [facility] 05-30-2023 10:29-0500 Diastolic blood pressure 70 mm[Hg] Sangeetha Jiménezhas DO Work Phone: [facility] 05-30-2023 10:29-0500 Heart rate 71 /min Sangeetha Jiménezhas DO Work Phone: [facility] 05-30-2023 10:29-0500 SaO2% (BldA) [Mass fraction] 96 % Sangeetha Dunbars DO Work Phone: [facility] 05-30-2023 10:290500 Systolic blood pressure 120 mm[Hg] Sangeetha Quick DO Work Phone: [facility] Encounters Encounter Date Encounter Type Care Provider Facility Start: 05-22-2024 End: 05-22-2024 ambulatory [facility] Start: 05-19-2024 End: 05-19-2024 ambulatory [facility] Start: 05-19-2024 End: 05-19-2024 Office outpatient visit 25 minutes Sangeetha Dunbarelieser DO Work Phone: [facility] Comment on above: Hypothyroidism, unsp ecified type (Primary Dx); Right foot pain; Vitamin D deficiency; Cobalamin deficiency; Lichen planus atrophicus Start: 05-19-2024 End: 05-19-2024 ambulatory [facility] Start: 02-27-2024 End: 02-27-2024 ambulatory [facility] Start: 02-27-2024 End: 02-27-2024 Patient encounter procedure Sangeetha Dunbarelieser DO Work Phone: [facility] Comment on above: Encounter for subseq uent annual wellness visit (AWV) in Medicare patient (Primary Dx) Start: 02-25-2024 End: 02-25-2024 Refill Sangeetha Dunbarelieser DO Work Phone: [facility] Comment on above: Hypothyroidism; Deficiency of other specified B group vitamins; Vitamin D deficiency, unspecified; Hordeolum externum of right upper eyelid Start: 02-06-2024 End: 02-06-2024 [facility] Comment on above: Age-related osteopor osis without current pathological fracture (Primary Dx) Start: 02-05-2024 End: 02-05-2024 [facility] Start: 02-03-2024 End: 02-03-2024 Telephone encounter Fatoumata Chacko CMA [facility] - [facility] Start: 01-22-2024 End: 01-22-2024 Telephone encounter Sangeetha Quick DO Work Phone: [facility] Internal Medicine - Family Medicine Start: 01-20-2024 End: 01-20-2024 Bambojerson flowsheet Jr. Angella Mckeon DO Work Phone: [facility] Start: 01-20-2024 End: 01-20-2024 Bamboo flowsheet Jr. Angella Mckeon DO Work Phone: [facility] Start: 01-20-2024 End: 01-20-2024 ambulatory [facility] Start: 01-20-2024 End: 01-20-2024 Office outpatient visit 25 minutes Jr. Angella Mckeon DO Work Phone: [facility] Comment on above: Primary osteoarthrit is of left knee (Primary Dx) Hordeolum externum o f right upper eyelid (Primary Dx); Blepharitis of right upper eyelid, unspecified type; Age-related osteoporosis without current pathological fracture; Encounter for immunization Start: 01-20-2024 End: 01-20-2024 ambulatory ANGELLA PASTRANA Not Available Start: 01-07-2024 End: 01-07-2024 Bamboo flowsheet Kathryn Cagle NP Work Phone: [facility] Start: 01-07-2024 End: 01-07-2024 Bamboo flowsheet Kathryn Cagle DISSOLVER OPERATOR Work Phone: [facility] Start: 01-07-2024 End: 01-07-2024 Office outpatient visit 10 minutes Kathryn Cagle DISSOLVER OPERATOR Work Phone: [facility] Comment on above: Primary localized os teoarthritis of left knee (Primary Dx); Left knee pain, unspecified chronicity Start: 01-07-2024 End: 01-07-2024 ambulatory KATHRNY CAGLE Not Available Start: 12-26-2023 End: 12-26-2023 ambulatory [facility] Start: 12-25-2023 End: 12-25-2023 ambulatory [facility] Start: 12-24-2023 End: 12-24-2023 Office outpatient visit 25 minutes Sangeetha Quick DO Work Phone: [facility] Comment on above: Diarrhea, unspecifie d type (Primary Dx); Primary osteoarthritis of knees, bilateral; Vitamin D deficiency; Cobalamin deficiency; Age-related osteoporosis without current pathological fracture; Nausea and vomiting, unspecified vomiting type Start: 12-24-2023 End: 12-24-2023 ambulatory [facility] Start: 12-23-2023 End: 12-24-2023 Telephone encounter Marcia Holdre [facility] Comment on above: Er Follow-up Start: 2023 End: 2023 Emergency department patient visit [facility] Start: 12-11-2023 End: 12-12-2023 Telephone encounter Dipika Sagastume CMA [facility] Start: 09-10-2023 End: 09-10-2023 ambulatory KATHRYN CAGLE Not Available Start: 08-21-2023 End: 08-23-2023 Telephone encounter Dipika Sagastume [facility] Start: 07-25-2023 End: 07-25-2023 Office outpatient visit 15 minutes Sangeetha Quick DO Work Phone: [facility] Comment on above: Osteoarthritis of le ft shoulder, unspecified osteoarthritis type (Primary Dx) Start: 07-25-2023 End: 07-25-2023 ambulatory [facility] Start: 07-01-2023 End: 07-01-2023 Office outpatient visit 25 minutes Sangeetha Quick DO Work Phone: [facility] Comment on above: 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, bilateral (Primary Dx); Osteoarthritis of left shoulder, unspecified osteoarthritis type; Immunization due Start: 07-01-2023 End: 07-01-2023 ambulatory [facility] Start: 06-27-2023 End: 06-27-2023 ambulatory [facility] Start: 06-25-2023 End: 06-25-2023 ambulatory [facility] Start: 06-25-2023 End: 06-25-2023 Office outpatient visit 25 minutes Sangeetha Quick DO Work Phone: [facility] Comment on above: Localized osteoarthr itis of left knee (Primary Dx) Start: 05-30-2023 End: 05-30-2023 ambulatory [facility] Start: 05-30-2023 End: 05-30-2023 ambulatory [facility] Start: 05-30-2023 End: 05-30-2023 Office outpatient visit 25 minutes Sangeetha Quick DO Work Phone: [facility] [...] End: 02-09-[address] YINKA BARRAZA . Facility: Start: 01-16-2022 End: 01-16-[address] YINKA BARRAZA . Facility: Start: 01-11-2022 End: 01-12-[address] YINKA BARRAZA . Facility:[facility] Start: 12-14-2021 End: 12-15-[address] YINKA BARRAZA . Facility:[facility] Start: 09-07-2021 End: 09-08-[address] YINKA BARRAZA . Facility: Procedures Date Procedure Procedure Detail Performing Clinician Start: 05-19-2024 Adult depression scr eening assessment Sangeetha Manjinderelieser DO Work Phone: Start: 02-27-2024 Adult depression scr eening assessment Sangeetha Quick DO Work Phone: Start: 01-20-2024 Adult depression scr eening assessment Sangeetha Quick DO Work Phone: Start: 01-07-2024 Radiologic examinati on knee 1/2 views Kathryn Cagle DISSOLVER OPERATOR Work Phone: Start: 12-24-2023 Follow-up visit Follow-up SANGEETHA QUICK Start: 12-24-2023 Adult depression scr eening assessment Sangeetha Manjinderelieser DO Work Phone: Start: 07-25-2023 Arthrocentesis aspir &/inj major jt/bursa w/o us Sangeetha Alek Jessywillielieser DO Work Phone: Start: 07-25-2023 Adult depression scr eening assessment Sangeetha Manjinderelieser DO Work Phone: Start: 07-01-2023 Adult depression scr eening assessment Sangeetha Trent DO Work Phone: Start: 06-25-2023 Adult depression scr eening assessment Sangeetha Manjinderelieser DO Work Phone: Start: 05-30-2023 Adult depression scr eening assessment Sangeetha Quick DO Work Phone: Plan of Treatment Date Care Activity Detail Author Start: 05-19-2025 Depression Screening Depression Scre ening [facility] Start: 05-19-2025 Fall Risk Screening Fall Risk Screen ing [facility] Start: 05-19-2025 Tobacco Screening Tobacco Screening [facility] Start: 03-02-2025 End: 03-02-2025 Patient encounter procedure 03/02/2025 2:20 PM EST Office Visit [facility] [address] [place] [phone] [facility] Start: 02-26-2025 Depression Screening Depression Scre ening [facility] Start: 02-26-2025 Fall Risk Screening Fall Risk Screen ing [facility] Start: 02-26-2025 Medicare Annual Well ness Visit Medicare Annual Wellness Visit [facility] Start: 01-19-2025 Adult BMI Screening Adult BMI Screen ing [facility] Start: 01-19-2025 Depression Screening Depression Scre ening [facility] Start: 01-19-2025 Fall Risk Screening Fall Risk Screen ing [facility] Start: 01-19-2025 Tobacco Screening Tobacco Screening [facility] Start: 12-23-2024 Adult BMI Screening Adult BMI Screen ing [facility] Start: 12-23-2024 Depression Screening Depression Scre ening [facility] Start: 12-23-2024 Fall Risk Screening Fall Risk Screen ing [facility] Start: 12-23-2024 Tobacco Screening Tobacco Screening [facility] Start: 07-24-2024 Adult BMI Screening Adult BMI Screen ing [facility] Start: 07-24-2024 Depression Screening Depression Scre ening [facility] Start: 07-24-2024 Fall Risk Screening Fall Risk Screen ing [facility] Start: 07-24-2024 Tobacco Screening Tobacco Screening [facility] Start: 06-30-2024 Adult BMI Screening Adult BMI Screen ing [facility] Start: 06-30-2024 Depression Screening Depression Scre ening [facility] Start: 06-30-2024 Fall Risk Screening Fall Risk Screen ing [facility] Start: 06-30-2024 Tobacco Screening Tobacco Screening [facility] Start: 06-24-2024 Adult BMI Screening Adult BMI Screen ing [facility] Start: 06-24-2024 Depression Screening Depression Scre ening [facility] Start: 06-24-2024 Fall Risk Screening Fall Risk Screen ing [facility] Start: 06-24-2024 Tobacco Screening Tobacco Screening [facility] Start: 05-30-2024 Adult BMI Screening Adult BMI Screen ing [facility] Start: 05-30-2024 Depression Screening Depression Scre ening [facility] Start: 05-30-2024 Fall Risk Screening Fall Risk Screen ing [facility] Start: 05-30-2024 Tobacco Screening Tobacco Screening [facility] Start: 05-22-2024 COVID-19 Vaccine () COVID-19 Vaccine () [facility] Start: 05-21-2024 DTaP,Tdap and Td Vaccines (2 - Td or Tdap) DTaP,Tdap and Td Vaccines (2 - Td or Tdap) [facility] Start: 05-19-2024 End: 05-19-2025 XR Foot - right 3 Views X-ray foot right minimum 3 views Imaging Routine Right foot pain Expected: 05/19/2024, Expires: 05/19/2025 [facility] Work Phone: Comment on above: Expected: 05/19/2024 , Expires: 05/19/2025 Start: 03-19-2024 End: 03-19-2024 Patient encounter procedure 03/19/2024 4:15 PM EST Office Visit [facility] [address] [place] [address] Sangeetha Quick, [address] [place] [address] [facility] Start: 03-16-2024 End: 03-16-2024 Patient encounter procedure 03/16/2024 10:00 AM EST Office Visit [facility] [address] [place] [phone] Kathryn Cagle, [address] [place], [place] [id number] [facility] Start: 02-27-2024 End: 02-27-2024 Patient encounter procedure 02/27/2024 1:40 PM EST [facility] [address] [place] [phone] [facility] Start: 01-20-2024 End: 01-20-2024 Patient encounter procedure [facility] Comment on above: Arrived Start: 01-07-2024 End: 01-07-2024 Patient encounter procedure 01/07/2024 10:30 AM EDT Office Visit [facility] [address] [phone] Kathryn Cagle, [address] [place] [address] Arrived [facility] Comment on above: Arrived Start: 12-26-2023 End: 12-26-2023 Patient encounter procedure 12/26/2023 1:45 PM EDT Appointment [facility] - Mammogram DEXA [address] [place] [phone] Sangeetha Quick, DO [address] [facility] [place] [address] [facility] - Mammogram DEXA Start: 12-24-2023 End: 12-23-2024 GI Panel(stool pathogen panel) GI Panel(stool pathogen panel) Lab Routine Diarrhea, unspecified type Expected: 12/24/2023, Expires: 12/23/2024 [facility] Work Phone: Comment on above: Expected: 12/24/2023 , Expires: 12/23/2024 Start: 12-24-2023 End: 12-24-2023 Patient encounter procedure 12/24/2023 1:00 PM EDT Office Visit [facility] [address] [place] [phone] Sangeetha Quick DO [address] [facility] [address] [facility] Start: 12-15-2023 COVID-19 Vaccine ( season) COVID-19 Vaccine () [facility] Start: 12-15-2023 Influenza vaccination [facility] Start: 12-03-2023 End: 12-03-2023 Patient encounter procedure 12/03/2023 2:00 PM EDT Office Visit [facility] [address] [place] [address] [facility] Start: 11-28-2023 Medicare Annual Well ness Visit Medicare Annual Wellness Visit [facility] Start: 07-14-2023 Influenza vaccination Influenza Vacc ine [facility] Comment on above: Postponed from 12/14 (Vaccine Not Available) Start: 06-25-2023 End: 06-24-2024 XR Knee - left 3 Views X-ray knee left 3 views Imaging Routine Localized osteoarthritis of left knee Expected: 06/25/2023, Expires: 06/24/2024 [facility] [facility] Work Phone: Comment on above: Expected: 06/25/2023 , Expires: 06/24/2024 Start: 12-14-2022 COVID-19 Vaccine ( season) COVID-19 Vaccine () [facility] Start: 12-14-2022 Influenza vaccination Influenza Vacc ine [facility] Start: 12-20-1997 Administration of varicella zoster vaccine Zoster (Shingles) Vaccine (1 of 2) [facility] [employer] Start: 12-20-1965 Adult BMI Follow Up Plan Adult BMI Follow Up Plan [facility] End: 12-23-2024 Basic metabolic 2000 panel - Serum or Plasma Basic Metabolic Panel Lab Routine Diarrhea, unspecified type 1 Occurrences starting 12/24/2023 until 12/23/2024 [facility] Comment on above: 1 Occurrences starti ng 12/24/2023 until 12/23/2024 End: 05-19-2025 CBC W Auto Differential panel - Blood CBC auto differential Lab Routine Hypothyroidism, unspecified type 1 Occurrences starting 05/19/2024 until 05/19/2025 [facility] Comment on above: 1 Occurrences starti ng 05/19/2024 until 05/19/2025 End: 05-19-2025 Comprehensive metabolic 2000 panel - Serum or Plasma Comprehensive metabolic panel Lab Routine Hypothyroidism, unspecified type 1 Occurrences starting 05/19/2024 until 05/19/2025 [facility] Comment on above: 1 Occurrences starti ng 05/19/2024 until 05/19/2025 End: 05-19-2025 Cyanocobalamin vitamin b-12 Vitamin B12 Lab Routine Cobalamin deficiency 1 Occurrences starting 05/19/2024 until 05/19/2025 [facility] Comment on above: 1 Occurrences starti ng 05/19/2024 until 05/19/2025 End: 12-23-2024 Cyanocobalamin vitamin b-12 Vitamin B12 Lab Routine Cobalamin deficiency 1 Occurrences starting 12/24/2023 until 12/23/2024 [facility] Comment on above: 1 Occurrences starti ng 12/24/2023 until 12/23/2024 End: 05-19-2025 Thyroid profile includes TSH FT4 Thyroid profile includes TSH FT4 Lab Routine Hypothyroidism, unspecified type 1 Occurrences starting 05/19/2024 until 05/19/2025 [facility] Comment on above: 1 Occurrences starti ng 05/19/2024 until 05/19/2025 End: 05-19-2025 Vitamin D 25 hydroxy Vitamin D 25 hydroxy Lab Routine Vitamin D deficiency 1 Occurrences starting 05/19/2024 until 05/19/2025 [facility] Comment on above: 1 Occurrences starti ng 05/19/2024 until 05/19/2025 Immunizations Immunization Date Immunization Notes Care Provider Fa cili 01-20-2024 Covid-19, Mrna, Lnp- s, Pf,christian-sucrose,30 Mcg/0.3ml Fall Sangeetha Dunbars DO Work Phone: [facility] 01-20-2024 Seasonal trivalent influenza vaccine, adjuvanted, preservative free Sangeetha Dunbars DO Work Phone: [facility] 01-20-2024 Immunization, In Clinic,; Translations: [Drug or medicament (substance)] Sangeetha Dunbars DO Work Phone: [facility] 01-22-2022 influenza virus vacc ine, unspecified formulation Kathryn Cagle NP Work Phone: [facility] 04-24-2017 Influenza, injectabl e, Madin Ammy Canine Kidney, preservative free, quadrivalent Sangeetha Dunbars DO Work Phone: [facility] 04-24-2017 influenza virus vacc ine, unspecified formulation Sangeetha Jiménezhas DO Work Phone: [facility] 03-15-2016 pneumococcal polysaccharide vaccine, 23 valent Sangeetha Yuhas DO Work Phone: [facility] 01-11-2016 influenza, seasonal, injectable, preservative free Sangeetha Jiménezhas DO Work Phone: [facility] 01-05-2015 influenza, seasonal, injectable, preservative free Sangeetha Jiménezhas DO Work Phone: [facility] 01-05-2015 pneumococcal conjuga te vaccine, 13 valent Sangeetha Yuhas DO Work Phone: [facility] 05-21-2014 pneumococcal polysaccharide vaccine, 23 valent Sangeetha Yuhas DO Work Phone: [facility] 05-21-2014 tetanus toxoid, redu mary diphtheria toxoid, and acellular pertussis vaccine, adsorbed Sangeetha Yuhas DO Work Phone: [facility] Payers Date Payer Category Payer Managed Care Other (unspecified) [facility] [id number] 2021 Commercial Managed C are - POS [employer] [id number] 2021 Private Health Insurance [id number] .[id number] 2010 Medicare [id number] 1959 Medicare [id number] 1959 Private Health Insurance CLI [id number] 1947 Unknown [id number] 2.16.840.1.775571.3.579 .2.593 1947 Unknown [id number] 2.16.840.1.848392.3.579 .2.593 1947 Unknown [id number] 2.16.840.1.842327.3.579 .2.593 1947 Unknown [id number] 2.16.840.1.928916.3.579 .2.593 1947 Unknown [id number] 2.16.840.1.496712.3.579 .2.593 1947 Unknown [id number] 2.16.840.1.153627.3.579 .2.593 1947 Unknown [id number] 2.16.840.1.743294.3.579 .2.593 1947 Unknown [id number] 2.16.840.1.289077.3.579 .2.593 1947 Unknown [id number] 2.16.840.1.083869.3.579 .2.593 1947 Unknown [id number] 2.16.840.1.128138.3.579 .2.593 1947 Unknown [id number] 2.16.840.1.193516.3.579 .2.593 1947 Unknown [id number] 2.16.840.1.069037.3.579 .2.593 1947 Unknown [id number] 2.16.840.1.163869.3.579 .2.593 1947 Unknown [id number] 2.16.840.1.794542.3.579 .2.593 1947 Unknown [id number] 2.16.840.1.270295.3.579 .2.593 1947 Unknown [id number] 2.16.840.1.542815.3.579 .2.1259 1947 Unknown [id number] 2.16.840.1.093973.3.579 .2.1259 1947 Unknown [id number] 2.16.840.1.124163.3.579 .2.1259 1947 Unknown [id number] 2.16.840.1.624333.3.579 .2.1259 1947 Unknown [id number] 2.16.840.1.386338.3.579 .2.1285 1947 Unknown [id number] 2.16.840.1.752210.3.579 .2.1285 1947 Unknown [id number] 2.16.840.1.820275.3.579 .2.1285 1947 Unknown [id number] 2.16840.1.665416.3.579 .2.1285 1947 Unknown [id number] 2.16.840.1.127502.3.579 .2.1285 1947 Unknown [id number] 2..840.1.516260.3.579 .2.1285 1947 Unknown [id number] 2.840.1.219745.3.579 .2.1285 1947 Unknown [id number] 2.840.1.650546.3.579 .2.1285 1947 Unknown [id number] 2.840.1.520890.3.579 .2.1285 1947 Unknown [id number] 2.840.1.134040.3.579 .2.1285 1947 Unknown [id number] 2.840.1.385069.3.579 .2.1285 1947 Unknown [id number] 2.840.1.381704.3.579 .2.1285 1947 Unknown [id number] 2.840.1.053095.3.579 .2.1285 1947 Unknown [id number] 2.16.840.1.785187.3.579 .2.1285 1947 Unknown [id number] 2.16840.1.859067.3.579 .2.1285 1947 Unknown [id number] 2.16840.1.466806.3.579 .2.1286 1947 Unknown [id number] 2.16.840.1.973938.3.579 .2.1286 1947 Unknown [id number] 2.16.840.1.493069.3.579 .2.1286 Social History Date Type Detail Facility Start: 05-14-2022 End: 01-07-2024 Tobacco smoking status [facility] Never smoked tobacco [facility] Work Phone: Start: 05-14-2022 End: 01-07-2024 Tobacco use and exposure Smokeless tobacco non-user [facility] Start: 01-07-2024 End: 01-20-2024 Alcoholic beverage intake Ex-drinker (finding) [facility] Start: 11-27-2022 End: 01-07-2024 History of Social function [facility] Start: 11-27-2022 End: 01-07-2024 Tobacco use panel [facility] Start: 1945 Sex assigned at Not on file [facility] Tobacco smoking stat [facility] Tobacco smoking consumption unknown [facility] Start: 01-20-2024 End: 05-19-2024 Alcoholic beverage intake Current non-drinker of alcohol (finding) [facility] Has the [employer], or water [employer] threatened to shut off services in your home in past 12Mo No [facility] Do you belong to any clubs or organizations such as yarsanism groups, unions, fraternal or athletic groups, or school groups? Yes [facility] Are you now , , , , never or living with a partner? [facility] How often to you hav e a drink containing alcohol? Never [facility] How many standard dr inks containing alcohol do you have on a typical day? Patient does not drink [facility] How hard is it for y ou to pay for the very basics like food, housing, medical care, and heating Somewhat hard [facility] Do you feel stress - tense, restless, nervous, or anxious, or unable to sleep at night because your mind is troubled all the time - these days [OSQ] Rather much [facility] Start: 11-18-2014 Sex Female (finding) [facility] How hard is it for y ou to pay for the very basics like food, housing, medical care, and heating Hard [facility] Do you feel stress - tense, restless, nervous, or anxious, or unable to sleep at night because your mind is troubled all the time - these days [OSQ] Very much [facility] Clinical Notes 09-07-2021 to 05-19-2024 Sangeetha Quick, DO - 05/19/2024 2:30 PM Vinnie Quick, DO - 02/27/2024 1:40 PM Mahogany Hassan RN - 02/06/2024 2:30 PM EDTTelephone Encounter - Fatoumata Adlerelsa, [employer]IST - 02/03/2024 12:49 PM EDT Note Date & Type Note Facility 05-19-2024 History of Present illness Narrative IM PROGRESS NOTE Patient - Rach Munroe Age - 78 y.o. - 1945 ASSESSMENT & PLAN 1. Hypothyroidism, unspecified type (Primary) -patient currently on levothyroxine 50 mcg daily -repeat TFTs to assess efficacy of current replacement therapy and evaluate for potential adjustment - CBC auto differential; Future - Comprehensive metabolic panel; Future - Thyroid profile includes TSH FT4; Future 2. Right foot pain -I suspect this is a combination of radicular pain, but does have some tenderness in the joints which may represent worsened osteoarthritis -proceed with x-ray of the right foot -further recommendations following testing - X-ray foot right minimum 3 views; Future -in the meantime, patient was advised to contact pain clinic to be evaluated for repeat LENY 3. Vitamin D deficiency -currently taking D3 58966 units weekly because of low vitamin-D and osteoporosis -repeat levels to assess efficacy of current treatment - Vitamin D 25 hydroxy; Future 4. 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 Check serum values - Vitamin B12; Future 5. Lichen planus atrophicus -continue estrogen cream as prescribed by Gynecology Subjective 78-year-old female presents for a multitude of complaints includin. Hair loss. She thinks she is losing more hair than in the past. Has not noticed any patches, and generally occurs when she is washing her hair were combing her hair. No itching. No dandruff. This occurred once before when she was found to have hypothyroidism. She is concerned it might be her thyroid gland acting up again. Has not had her thyroid medication adjusted, or checked for approximately 1 year. 2. Complains of cramping, burning and abnormal sensation in her right leg. Similar to when she required LENY to her lumbar spine at pain clinic. Denies any falls or instability because of it. Involves the lateral right leg and foot. No new injuries. She has not taken or tried anything to help this. 3. Complains of dry eyes. Occasionally gets it visual blurring. Has history of cataract replacement. Has not seen her eye doctor in over a year. 4. Difficulty sleeping unless she uses tramadol and tizanidine. However is afraid to use it at the same time. A review of systems was negative except for the following: Ophthalmic: blurry vision Allergies: seasonal allergies Musculoskeletal: joint pain, joint stiffness, and pain in back - right, lower, and radiates to the right leg Neurological: numbness/tingling. Exam BP 110/78 (BP Site: Left Arm, BP Postition: Sitting) Pulse 79 Temp 36.9 C (98.5 F) (Tympanic) Ht 149.9 cm (4' 11 ) Wt 67.7 kg (149 lb 3.2 oz) SpO2 97% BMI 30.13 kg/m Physical Exam Vitals reviewed. Constitutional: Appearance: She is well-developed. She is obese. She is not toxic-appearing. Comments: Uncomfortable HENT: Head: Normocephalic. Right Ear: External ear [...] Palpations: Abdomen is soft. Musculoskeletal: General: Tenderness (Bilateral lumbar spine) present. Right lower leg: No edema. Left lower leg: No edema. Skin: General: Skin is warm and dry. Coloration: Skin is not jaundiced. Findings: No bruising. Neurological: Mental Status: She is alert and oriented to person, place, and time. Sensory: Sensory deficit (Decreased pinprick sensation in the L5 and S1 dermatome of the right leg and foot. Diminished vibratory sensation in the stocking-glove distribution of the right foot.) present. Deep Tendon Reflexes: Reflexes abnormal (Achilles 0+/4 bilaterally. Patella 1+/4 bilaterally.). Psychiatric: Mood and Affect: Mood normal. Behavior: Behavior normal. Meds Current Outpatient Medications: acetaminophen (TYLENOL) 650 mg 8 hr tablet, Take 1 tablet (650 mg total) by mouth in the morning., Disp: , Rfl: cholecalciferol (VITAMIN D3) 50,000 units capsule, TAKE 1 CAPSULE BY MOUTH ONCE WEEKLY, Disp: 12 capsule, Rfl: 3 ergocalciferol (DRISDOL) 1,250 mcg (50,000 unit) capsule, TAKE 1 CASPULE BY MOUTH ONCE TIME PER WEEK, Disp: , Rfl: estradioL (ESTRACE) 0.01 % (0.1 mg/gram) vaginal cream, Use at night once or twice weekly, Disp: 42.5 g, Rfl: 1 levothyroxine (SYNTHROID, LEVOTHROID) 50 MCG tablet, TAKE 1 TABLET BY MOUTH EVERY DAY, Disp: 90 tablet, Rfl: 1 ondansetron ODT (ZOFRAN ODT) 4 mg disintegrating tablet, Dissolve 1 tablet (4 mg total) on tongue every 8 (eight) hours as needed for nausea or vomiting., Disp: 20 tablet, Rfl: 0 rOPINIRole (REQUIP) 0.25 mg [...] with results is: Hospital Outpatient Visit on 02/05/2024 Component Date Value Ref Range Status Albumin 02/05/2024 4.1 3.2 - 5.3 g/dL Final Calcium 02/05/2024 8.9 8.5 - 10.5 mg/dL Final Creatinine 02/05/2024 0.70 0.40 - 1.00 mg/dL Final eGFR (CKD-EPI)non-race dependent 02/05/2024 90 >59 ml/min/1.73sq.m Final Vit D, 25-Hydroxy 02/05/2024 78.5 30 - 100 ng/mL Final Other Testing No results found. Sangeetha Quick DO., [facility] Office: [phone] documented in this encounter [facility] 02-27-2024 History of Present illness Narrative Subjective SUBJECTIVE: Patient ID: Rach Munroe is a 78 y.o. female who presents for a Medicare Annual Wellness exam. HPI The following portions of the patient's history were reviewed and updated as appropriate: allergies, current medications, past family history, past medical history, past social history, past surgical history and problem list. AWV FLOWSHEET : Lifestyle Assessment Do you smoke or use smokeless tobacco?: No If you smoke or use smokeless tobacco, are you ready to quit?: NA Are you exposed to secondhand smoke?: (!) Yes On average, how many drinks of alcohol do you consume in a week?: None Do you exercise for 30 or more minutes on average at least 3 days a week?: (!) Never Do you have any tooth, denture, or oral problems?: No Do you snore or has anyone told you that you snore?: No Do you try to eat a balanced diet?: Yes Do you experience leakage of urine, also known as urinary incontinence?: (!) Often Do you have difficulty performing any of these activities? (check all that apply): None Do you have difficulty performing any of these activities? (check all that apply): None Fall Risk Fall Risk Assessment Completed?: Yes Have you fallen in the past year?: No Are you worried about falling?: (!) Yes Do you feel unsteady when standing or walking?: (!) Yes Risk Stratification: Moderate Risk Depression Screening Little interest or pleasure in doing things: Not at all Feeling down, depressed, or hopeless: Not at all Trouble falling or staying asleep, or sleeping too much: Not at all Feeling tired or having little energy: Not at all Poor appetite or overeating: Not at all Feeling bad about yourself - or that you are a failure or have let yourself or your family down: Not at all Trouble concentrating on things, such as reading the newspaper or watching television: Not at all Moving or speaking so slowly that other people could have noticed. Or the opposite - being so fidgety or restless that you have been moving around a lot more than usual: Not at all Thoughts that you would be better off , or of hurting yourself in some way: Not at all PEG Scale Safety Assessment Do you have throw rugs on the floor?: No Do you feel safe at your home?: Yes Do you feel unsteady when walking?: (!) Yes Are you having difficulty with driving?: No Do you have trouble seeing?: No What assistive device do you use? (check all that apply): None Hearing Assessment Do you strain or struggle to hear/understand conversations?: No Do you have trouble hearing the television or radio when others do not?: No Does your family ever voice concerns about your hearing?: No Do you wear hearing aid/s?: No Personal Health During the past 4 weeks, how would you rate your overall health?: Good Do you understand how to take all of your medications?: Yes How confident are you that you can control and manage most of your health problems?: Very confident In the past 12 months, how many times have you been hospitalized?: None End of Life Planning Do you have a living will?: Yes Do you have a durable power of staff attorney?: Yes Cognitive Screening Do you have trouble remembering or recalling facts or events?: No Do family members or caregivers report that you have difficulty remembering things?: No 6-ClT: Normal 07/10 REVIEW OF SYSTEMS: Review of Systems Objective PHYSICAL EXAMINATION: Vitals: 02/27/24 1355 BP: 107/56 Weight: 66.2 kg (146 lb) Height: 149.9 cm (4' 11 ) Physical Exam Assessment/Plan ASSESSMENT/PLAN Rach was seen today for maw. Diagnoses and all orders for this visit: Encounter for subsequent annual wellness visit (AWV) in Medicare patient Return in about 1 year (around 02/26/2025). documented in this encounter [facility] 02-06-2024 History of Present illness Narrative Pt here for reclast as scheduled. Has had in the past without issues. PIV initiated to LAC. Brisk blood return. Flushes with ease. Reclast infused over 15 minutes without incident. Line flushed. PIV removed. Pt dc'd in stable ambulatory condition. documented in this encounter [facility] 02-03-2024 Miscellaneous Notes Called pt to let her know that she just has to go get her labs drawn at the hospital and the orders are already in. documented in this encounter [facility] 02-03-2024 Telephone encounter Note Called pt to let her know that she just has to go get her labs drawn at the hospital and the orders are already in. [facility] 01-22-2024 Miscellaneous Notes Patient called asking about an infusion at the [facility] that you were suppose to send over Message noted. The order was sent. She can call them at any time Mailbox is full documented in this encounter [facility] 01-22-2024 Telephone encounter Note Patient called asking about an infusion at the [facility] that you were suppose to send over [facility] 01-22-2024 Telephone encounter Note Message noted. The order was sent. She can call them at any time [facility] 01-22-2024 Telephone encounter Note Mailbox is full [facility] 01-20-2024 History of Present illness Narrative IM PROGRESS NOTE Patient - Rach Munroe Age - 78 y.o. - 1945 ASSESSMENT & PLAN Diagnosis Plan 1. Hordeolum externum of right upper eyelid neomycin-polymyxin B-dexAMETH (MAXITROL) 3.5 mg/g-10,000 unit/g-0.1 % ointment -patient was advised to start cool compresses to the eye for the next 48 hours at least 4-5 times a day for 30 minutes -apply antibiotic ointment along the base of the eyelashes b.i.d. -may gently massage eyelid to help prevent enlargement of the Hordeleum 2. Blepharitis of right upper eyelid, unspecified type -as above 3. Age-related osteoporosis without current pathological fracture -her Reclast infusion was renewed today 4. Encounter for immunization Influenza, Trivalent, Adjuvanted Immunization, In Clinic, COVID-19, mRNA, LNP-S, PF, christian-sucrose, 30 mcg/0.3 mL Immunization, In Clinic, -COVID and flu shot given today. Subjective 78-year-old female presents for swelling, itching, and feeling like there is something caught in her upper eyelid on the right side, for the past 1-2 days. This started after she was outside working in her garden, and had numerous bits of dust and plant material blow into her eyes. No real drainage and Nab which is present is clear. He has been applying warm compresses, which have not provided any relief. No big change in her vision. No pain. She is not having any other upper respiratory symptoms such as ear pain fullness, no nasal congestion and no sore throat. A review of systems was negative except for the following: Musculoskeletal: joint pain and was seen by Orthopedics earlier today, and total knee replacement was recommended. She is thinking about having this done in March 2024.. In addition, patient noted that it has been 1 year since her last Reclast infusion. Would like to continue using this for osteoporosis prevention. Exam BP 150/80 (BP Site: Left Arm, BP Postition: Sitting) Pulse 65 Temp 36.3 C (97.3 F) (Temporal) Resp 18 Ht 149.9 cm (4' 11 ) Wt 65 kg (143 lb 3.2 oz) SpO2 100% BMI 28.92 kg/m Physical Exam Vitals reviewed. Constitutional: General: She is not in acute distress. Appearance: She is not toxic-appearing. Comments: Overweight HENT: Head: Normocephalic. Right Ear: Tympanic membrane, ear canal and external ear normal. Left Ear: Tympanic membrane, ear canal and external ear normal. Nose: Rhinorrhea present. No congestion. Mouth/Throat: Mouth: Mucous membranes are moist. Eyes: General: Right eye: Hordeolum (Medial right upper eyelid) present. Extraocular Movements: Extraocular movements intact. Conjunctiva/sclera: Conjunctivae normal. Pupils: Pupils are equal, round, and reactive to light. Comments: VA right: 20/30 VA left: 20/30 9 right upper eyelid swollen with mild erythema and scaling of the skin. Lid was everted, no foreign body noted posteriorly or along the tarsal plate. Cardiovascular: Rate and Rhythm: Normal rate and regular rhythm. Lymphadenopathy: Cervical: No cervical adenopathy. Skin: General: Skin is warm and dry. Coloration: Skin is not jaundiced. Findings: No bruising. Neurological: Mental Status: She is alert and oriented to person, place, and time. Psychiatric: Mood and Affect: Mood normal. Behavior: Behavior normal. Meds Current Outpatient Medications: acetaminophen (TYLENOL) 650 mg 8 hr tablet, Take 1 tablet (650 mg total) by mouth in the morning., Disp: , Rfl: cholecalciferol (VITAMIN D3) 50,000 units capsule, Take 1 capsule (50,000 Units total) by mouth once a week., Disp: , Rfl: ergocalciferol (DRISDOL) 1,250 mcg (50,000 unit) capsule, TAKE 1 CASPULE BY MOUTH ONCE TIME PER WEEK, Disp: , Rfl: estradioL (ESTRACE) 0.01 % (0.1 mg/gram) vaginal cream, Use at night once or twice weekly, Disp: 42.5 g, Rfl: 1 levothyroxine (SYNTHROID, LEVOTHROID) 50 MCG tablet, TAKE 1 TABLET BY MOUTH EVERY DAY, Disp: 90 tablet, Rfl: 1 ondansetron ODT (ZOFRAN ODT) 4 mg disintegrating tablet, Dissolve 1 tablet (4 mg total) on tongue every 8 (eight) hours as needed for nausea or vomiting., Disp: 20 tablet, Rfl: 0 rOPINIRole (REQUIP) 0.25 mg [...] 50 mg tablet, , Disp: , Rfl: neomycin-polymyxin B-dexAMETH (MAXITROL) 3.5 mg/g-10,000 unit/g-0.1 % ointment, Apply to base of eyelashes every 8 (eight) hours., Disp: 3.5 g, Rfl: 0 Lab Results Hospital Outpatient Visit on 12/26/2023 Component Date Value Ref Range Status Specimen Source 12/26/2023 STOOL Final Campylobacter 12/26/2023 Not Detected Not Detected^Not Detected Final Plesiomonas 12/26/2023 Not Detected Not Detected^Not Detected Final Salmonella 12/26/2023 Not Detected Not Detected^Not Detected Final Vibrio 12/26/2023 Not Detected Not Detected^Not Detected Final Vibrio Cholerae 12/26/2023 Not Detected Not Detected^Not Detected Final Y Enterocolitica 12/26/2023 Not Detected Not Detected^Not Detected Final Aggregative E Coli 12/26/2023 Not Detected Not Detected^Not Detected Final Pathogenic E Coli 12/26/2023 Detected (A) Not Detected^Not Detected Final Toxigenic E Coli 12/26/2023 Not Detected Not Detected^Not Detected Final Shiga Toxin E Coli 12/26/2023 Not Detected Not Detected^Not Detected Final Shigella-E Coli 12/26/2023 Not Detected Not Detected^Not Detected Final Cryptosporidium 12/26/2023 Not Detected Not Detected^Not Detected Final Cyclospora 12/26/2023 Not Detected Not Detected^Not Detected Final E Histolytica 12/26/2023 Not Detected Not Detected^Not Detected Final Giardia Lamblia 12/26/2023 Not Detected Not Detected^Not Detected Final Adenovirus 12/26/2023 Not Detected Not Detected^Not Detected Final Astrovirus 12/26/2023 Not Detected Not Detected^Not Detected Final Norovirus 12/26/2023 Not Detected Not Detected^Not Detected Final Rotavirus A 12/26/2023 Not Detected Not Detected^Not Detected Final Sapovirus 12/26/2023 Not Detected Not Detected^Not Detected Final Hospital Outpatient Visit on 12/25/2023 Component Date Value Ref Range Status Vitamin B-12 12/25/2023 >1,500 (H) 180 - 914 pg/mL Final Sodium 12/25/2023 141 134 - 146 mmol/L Final Potassium, Bld 12/25/2023 3.4 (L) 3.5 - 5.0 mmol/L Final Chloride 12/25/2023 105 98 - 109 mmol/L Final CO2 12/25/2023 26 22 - 32 mmol/L Final Anion gap 12/25/2023 10 5 - 15 mmol/L Final BUN 12/25/2023 22 5 - 27 mg/dL Final Creatinine 12/25/2023 0.73 0.40 - 1.00 mg/dL Final Glucose 12/25/2023 92 65 - 99 mg/dL Final Calcium 12/25/2023 8.8 8.5 - 10.5 mg/dL Final eGFR (CKD-EPI)non-race dependent 12/25/2023 85 >59 ml/min/1.73sq.m Final Other Testing No results found. Sangeetha Quick DO., [facility] Office: [phone] documented in this encounter [facility] 01-20-2024 History of Present illness Narrative HISTORY OF PRESENT ILLNESS: EST PT Rach Munroe is an 78 y.o. @ female. (EST PT; MOST RECENT VISIT WITH KATHRYN) RECHECK LT KNEE PAIN - HERE TO POSSIBLY DISCUSS SURGERY; WOULD LIKE TO WAIT UNTIL THE BEGINNING OF NEXT YEAR PT DID HAVE VISCO PER PAIN MANAGEMENT [facility] ~4-5WKS AGO; SOME RELIEF XRAY CHANGE 01/07/24 XRAY [facility] 09/11/23 XRAY [facility] 06/27/23 XRAY (08/26/18) @ [facility] SYNVISC (01/18/17) PER DR MCKEON PREVIOUS XRAYS (10/17/16) (AP STANDING) @ [facility]. PHYSICAL THERAPY @ [facility] 08/26/18 DR QUICK TX; TRAMADOL PRN- - HX SYNVISC INJ LT KNEE (01/18/17) INJ 07/01/23; PREDNISONE BURST 06/25/23 PARTIAL RELIEF. PAIN MGMT [facility]- VISCO ~12/23/23 HX B/L KNEE SCOPE PER PT YRS AGO PAIN CAN BE GLOBAL- +INSTABILITY-+STIFFNESS WITH PROLONG SITTING- SOME SWELLING+TRAMADOL/TYLENOL/SALON PAS - +CLICKING - DIFFICULTY WITH STAIRS ALLERGIES: Allergies Allergen Reactions Iodine Anaphylaxis Other Reaction(s): SOB / Blisters Aspirin Other Reaction(s): Fever / Rash Etodolac Latex Penicillins Hives Codeine Rash and Unknown Sulfa Antibiotics Rash and Unknown HOME MEDICATIONS: Current Outpatient Medications Medication Instructions acetaminophen (TYLENOL 8 HOUR) 650 mg, Oral, Daily RT cholecalciferol (Vitamin D-3) 1.25 MG (26137 UT) capsule 1 capsule, Oral, Weekly ergocalciferol (Vitamin D2) 1.25 MG (79231 UT) capsule TAKE 1 CASPULE BY MOUTH ONCE TIME PER WEEK estradiol (Estrace) 0.1 MG/GM vaginal cream Use at night once or twice weekly levothyroxine (Synthroid, Levoxyl) 50 MCG tablet 1 tablet, Oral, Daily rOPINIRole (REQUIP) 0.25 mg, Oral, Nightly rosuvastatin (Crestor) 10 MG tablet 1 tablet, Oral, Daily tiZANidine (Zanaflex) 4 MG tablet TAKE 1/2-1 TABLET BY MOUTH TWICE A DAY NEEDED traMADol (ULTRAM) 50 mg, Oral, 2 times daily PRN PHYSICAL EXAM: Knee Musculoskeletal Exam Gait Antalgic: left Limp: left Inspection Leg length disparity: no discrepancy Left Erythema: none Effusion: moderate Edema: mild Ecchymosis: none Deformity: mild Alignment: varus Previous incision: no previous incision Palpation Left Increased warmth: none Masses: none Crepitus: patellofemoral and medial Tenderness: present Medial joint line: moderate Patella: mild Range of Motion Left Active extension: 10 Active flexion: 110 Strength Left Extension: 5/5. Flexion: 5/5. Instability Left Instability signs: none - stable Varus stress grade: normal Valgus stress grade: normal Pivot shift: normal Anterior drawer: normal Posterior drawer: normal Dial test: normal Quad active test: normal Medial Cody test: negative Lateral Cody test: negative Miguel: negative Neurovascular Left Left knee neurovascular exam is normal. Patella reflex: 2/4 Pulses - DP: normal Dorsalis pedis: 2+ Pulses - PT: normal Posterior tibial: 2+ Capillary refill: brisk Special Signs Left Patellar compression: moderate Patellar apprehension: none Vitals: There is no height or weight on file to calculate BMI. Tobacco Use: Low Risk (01/20/2024) Patient History Smoking Tobacco Use: Never Smokeless Tobacco Use: Never Passive Exposure: Not on file Alcohol Use: Not At Risk (11/27/2022) [facility], [facility] [employer] [facility] AUDIT-C Frequency of Alcohol Consumption: Never Average Number of Drinks: Patient does not drink Frequency of Binge Drinking: Never IMAGING: Procedures No orders of the defined types were placed in this encounter. ASSESSMENT: ICD-10-CM 1. Primary osteoarthritis of left knee M17.12 PLAN: We have answered all the patients questions and explained the patients condition, decision making and plan including the risks and benefits associated with said plan in layman''s terms in a language the patient could understand easily. If patient''s symptoms significantly worsen and they cannot get a hold of us or their family physician, we have recommended that the patient proceed to the nearest emergency department (room). Dr. Mckeon obtained history and examined the patient, I am acting as scribe for Dr. Mckeon/francois, PLAN: We have reviewed prior (L) knee xrays. After examination of her left knee today we have discussed both surgical and nonsurgical intervention, with the risks and benefits of both. She is refusing surgical intervention at this time as she would like to wait at least until after first of the year. We have discussed her HEP and restrictions and will see her back in early March to reassess her left knee, if exam warrants we may recommend with proceeding with a (L) TKA. Angella Mckeon D.O. documented in this encounter [facility] 01-07-2024 History of Present illness Narrative Images from the original note were not included. Chief Complaint Patient presents with Left Knee - Pain HISTORY OF PRESENT ILLNESS: Rach Munroe is an 78 y.o. @ female. (EST PT) LT KNEE PAIN 2015. STATES A COUPLE WKS AGO, HER KNEE SWELLED AND GOT WARM. STATES SHE GOT REALLY SICK, DIARRHEA AND VOMITING. LAST TX 09/10/23 WITH REFERRAL TO PAIN FOR INJECTIONS XRAY TODAY CHANGE 01/07/24 XRAY [facility] 09/11/23 XRAY [facility] 06/27/23 XRAY (08/26/18) @ [facility] SY[facility] (01/18/17) PER DR MCKEON PREVIOUS XRAYS (10/17/16) (AP STANDING) @ [facility]. PHYSICAL THERAPY @ [facility] 08/26/18 DR QUICK TX; TRAMADOL PRN- - HX SYNVISC INJ LT KNEE (01/18/17) INJ 07/01/23; PREDNISONE BURST 06/25/23 PARTIAL RELIEF. PAIN MGMT [facility] DID HAVE INJECTION BY PAIN MGMT - HAD GOOD RELIEF FOR A LITTLE WHILE. PAIN CLINIC WANTED HER TO BE RE-CHECKED. PAIN IS MEDIAL KNEE. TAKING TRAMADOL IN AM. TAKING TYL ARTHRITIS. USING A CREAM. TRIED BIOFREEZE AND VOLTAREN. DENIES NUMBNESS. ADMITS GIVING OUT. SWELLING HAS GONE DOWN. KEEPING PT UP AT HS. ADMITS POPPING/GRINDING. WORSE WITH GETTING UP FROM SITTING. ALLERGIES: Allergies Allergen Reactions Iodine Anaphylaxis Other Reaction(s): SOB / Blisters Aspirin Other Reaction(s): Fever / Rash Etodolac Latex Penicillins Hives Codeine Rash and Unknown Sulfa Antibiotics Rash and Unknown HOME MEDICATIONS: Current Outpatient Medications Medication Instructions acetaminophen (TYLENOL 8 HOUR) 650 mg, Oral, Daily RT cholecalciferol (Vitamin D-3) 1.25 MG (17146 UT) capsule 1 capsule, Oral, Weekly Cyanocobalamin ER 1000 MCG tablet controlled-release 2 tablets, Oral, Daily ergocalciferol (Vitamin D2) 1.25 MG (38024 UT) capsule TAKE 1 CASPULE BY MOUTH ONCE TIME PER WEEK estradiol (Estrace) 0.1 MG/GM vaginal cream Use at night once or twice weekly levothyroxine (Synthroid, Levoxyl) 50 MCG tablet 1 tablet, Oral, Daily rOPINIRole (REQUIP) 0.25 mg, Oral, Nightly rosuvastatin (Crestor) 10 MG tablet 1 tablet, Oral, Daily tiZANidine (Zanaflex) 4 MG tablet TAKE 1/2-1 TABLET BY MOUTH TWICE A DAY NEEDED traMADol (ULTRAM) 50 mg, Oral, 2 times daily PRN REVIEW OF SYSTEMS: General: Denies fever, fatigue or weight loss Skin: Denies rash, sores or skin changes Eyes: Denies visual disturbance or pain GI: Denies indigestion or abdominal pain Neuro: Denies numbness or tingling, denies new onset paralysis Musculoskeletal: ( see note) PHYSICAL EXAM: Right Knee Exam Tenderness The patient is experiencing tenderness in the medial joint line. Range of Motion Extension: -5 Flexion: 110 Other Erythema: absent Scars: absent Sensation: normal Pulse: present Swelling: mild Left Knee Exam Tenderness The patient is experiencing tenderness in the medial joint line. Range of Motion Extension: -10 Flexion: 110 Tests Varus: negative Valgus: negative Drawer: Anterior - negative Posterior - negative Other Erythema: absent Scars: absent Sensation: normal Pulse: present Swelling: mild Comments: Crepitus with ROM testing Vitals: There is no height or weight on file to calculate BMI. IMAGING: XR knee 1 or 2 views left Imaging Result: AP and lateral views of left knee showed severe varus deformity with [id number] articulation to the medial joint line, flattening of the articular surfaces to the medial joint line lateral joint line and patellofemoral joint. Subchondral sclerosis was noted at the medial joint line surfaces as well as the lateral joint line and patellofemoral joint. Marginal osteophytic formation was noted tricompartmentally. There is no evidence of fracture or dislocation. Impression: severe degenerative joint disease left knee with varus deformity ASSESSMENT: ICD-10-CM 1. Primary localized osteoarthritis of left knee M17.12 2. Left knee pain, unspecified chronicity M25.562 XR knee 1 or 2 views left Procedures PLAN: I reviewed xray findings with the patient and discussed treatment options, answered questions. She states that she had no relief with cortisone injection given by PCP and limited relief visco injections. She did have flare up of pre-patellar bursitis but his has mostly resolved. I recommend that she meet with Dr. Mckeon to further discuss TKA. Questions answered in laymen terms at the bedside. The diagnosis, home exercise plan and any ongoing restrictions/ recommendations reviewed. If unable to be reached in office, I recommend evaluation at nearest Emergency Room if any symptoms worsened or new symptoms develop for requiring urgent evaluation. Kathryn Cagle [employer]AGE RIGGER-[employer]ARD ASSISTANT documented in this encounter [facility] 12-24-2023 History of Present illness Narrative IM PROGRESS NOTE Patient - Rach Munroe Age - 78 y.o. - 1945 ASSESSMENT & PLAN 1. Diarrhea, unspecified type -onset and frequency and severity highly suggestive of a gastroenteritis -symptoms mainly lower gastrointestinal. Need to get a GI stool pathogen panel -in the meantime, start Lomotil symptomatic relief -further recommendations following results of testing -should continue clear liquid/low residue diet - GI Panel(stool pathogen panel); Future - diphenoxylate-atropine (LOMOTIL) 2.5-0.025 mg per tablet; Take 1 tablet by mouth 4 (four) times a day as needed for diarrhea for up to 5 days. Dispense: 20 tablet; Refill: 0 - Basic Metabolic Panel; Future 2. Primary osteoarthritis of knees, bilateral -currently stable -keep follow-up with Pain Management -we talked about potential future need for joint replacement 3. Vitamin D deficiency -currently on vitamin D2 47273 units weekly -no change today 4. Cobalamin deficiency -currently taking cyanocobalamin 1000 mcg daily -repeat levels to assess efficacy of replacement therapy. May need to switch to IM injections - Vitamin B12; Future 5. Age-related osteoporosis without current pathological fracture -Reclast infusion ordered for 2023. 6. Nausea and vomiting, unspecified vomiting type -suspect gastroenteritis as above. -refill on 0 density try on so she can maintain her hydration and nutrition - ondansetron ODT (ZOFRAN ODT) 4 mg disintegrating tablet; Dissolve 1 tablet (4 mg total) on tongue every 8 (eight) hours as needed for nausea or vomiting. Dispense: 20 tablet; Refill: 0 Subjective 78-year-old female originally scheduled for recheck on her osteoporosis and vitamin B12 deficiency now reports new problem involving diarrhea. Was actually seen in the emergency department 3 days ago for the same problem. She reports developing a sudden onset of loose watery diarrhea, perhaps 10-12 BMs daily. Nonbloody. Some cramping. Had associated nausea and occasional vomiting. Has been able to drink some liquids, but not really eat anything. -in the emergency department, was given Zofran, and lab work revealed normal kidney function, normal electrolytes in a normal white blood cell count. She was discharged home with Zofran, but has not used it. -she did take a single Imodium or Lomotil last night, which helped slightly, but the symptoms are back again today. -she has not had any recent travel. There have been no new pets and no new sources of water. [place] and person there was having diarrhea and she may have been exposed. She did handle some snakes earlier this week as well. A review of systems was negative except for the following: General: fatigue and weight loss Endocrine: Taking her thyroid medication regularly. She is taking her B12 supplementation regularly. Is using her vitamin D. Is due for a repeat Reclast infusion in several weeks. Breasts: No symptoms. A yearly mammogram has been ordered. Musculoskeletal: joint pain, joint stiffness, and noted especially in both knees. Is receiving injections at pain clinic. Prior to the episode of diarrhea, her left knee was swollen and tender without fever.. Exam BP 120/70 (BP Site: Left Arm, BP Postition: Sitting) Pulse 83 Temp 37 C (98.6 F) (Tympanic) Ht 149.9 cm (4' 11 ) Wt 62.7 kg (138 lb 3.2 oz) SpO2 99% BMI 27.91 kg/m Physical Exam Vitals reviewed. Constitutional: General: She is not in acute distress. Appearance: She is well-developed. She is not toxic-appearing. Comments: Overweight HENT: Head: Normocephalic. Right Ear: Tympanic membrane, ear canal and external ear normal. Left Ear: Tympanic membrane, ear canal and external ear normal. Nose: Nose normal. Mouth/Throat: Mouth: Mucous membranes are moist. Eyes: General: No scleral icterus. Neck: Vascular: No carotid bruit. Cardiovascular: Rate and Rhythm: Normal rate and regular rhythm. Pulses: Normal pulses. Heart sounds: No murmur heard. No gallop. Pulmonary: Effort: Pulmonary effort is normal. Breath sounds: No wheezing or rales. Abdominal: General: There is no distension. Palpations: Abdomen is soft. There is no mass. Tenderness: There is abdominal tenderness (Left lower quadrant). There is no guarding. Musculoskeletal: General: Tenderness (Medial and lateral joint space on the left knee.) present. Right lower leg: No edema. Left lower leg: No edema. Skin: General: Skin is warm and dry. Coloration: Skin is not jaundiced. Findings: No bruising. Neurological: General: No focal deficit present. Mental Status: She is alert and oriented to person, place, and time. Motor: No weakness. Coordination: Coordination normal. Deep [...] 50 mg tablet, , Disp: , Rfl: diphenoxylate-atropine (LOMOTIL) 2.5-0.025 mg per tablet, Take 1 tablet by mouth 4 (four) times a day as needed for diarrhea for up to 5 days., Disp: 20 tablet, Rfl: 0 ondansetron ODT (ZOFRAN ODT) 4 mg disintegrating tablet, Dissolve 1 tablet (4 mg total) on tongue every 8 (eight) hours as needed for nausea or vomiting., Disp: 20 tablet, Rfl: 0 Lab Results Admission on 2023, Discharged on 2023 Component Date Value Ref Range Status White Blood Cells 2023 9.1 4.0 - 11.0 X10E9/L Final RBC count 2023 4.24 3.80 - 5.20 X10E12/L Final Hemoglobin 2023 11.8 11.7 - 15.5 g/dL Final Hematocrit 2023 35.6 35 - 47 % Final MCV 2023 84 80 - 100 fL Final MCH 2023 27.8 27 - 34 pg Final MCHC 2023 33.1 32 - 36 g/dL Final RDW 2023 15.3 (H) 11.5 - 15.0 % Final Platelets 2023 255 150 - 450 X10E9/L Final MPV 2023 8.9 7 - 12 fL Final % neutrophils 2023 81.0 % Final % lymphocytes 2023 11.6 % Final % monocytes 2023 6.4 % Final % eosinophils 2023 0.7 % Final % Basophils 2023 0.3 % Final Neutrophils Absolute (A) 2023 7.4 (H) 1.5 - 6.6 X10E9/L Final Lymphocytes Absolute 2023 1.1 1.0 - 3.5 X10E9/L Final Monocytes Absolute 2023 0.6 0 - 0.9 X10E9/L Final Eosinophils Absolute 2023 0.1 0.0 - 0.4 X10E9/L Final Basophils Absolute 2023 0.0 0.0 - 0.2 X10E9/L Final Sodium 2023 134 134 - 146 mmol/L Final Potassium, Bld 2023 3.8 3.5 - 5.0 mmol/L Final Chloride 2023 105 98 - 109 mmol/L Final CO2 2023 22 22 - 32 mmol/L Final Anion gap 2023 7 5 - 15 mmol/L Final BUN 2023 18 5 - 27 mg/dL Final Creatinine 2023 0.64 0.40 - 1.00 mg/dL Final Glucose 2023 123 (H) 65 - 99 mg/dL Final Calcium 2023 8.5 8.5 - 10.5 mg/dL Final Total Protein 2023 7.3 6.0 - 8.0 g/dL Final Albumin 2023 4.2 3.2 - 5.3 g/dL Final Alkaline Phosphatase 2023 63 39 - 130 U/L Final AST 2023 20 0 - 41 U/L Final ALT 2023 14 0 - 31 U/L Final Total bilirubin 2023 0.5 0.3 - 1.2 mg/dL Final eGFR (CKD-EPI)non-race dependent 2023 >90 >59 ml/min/1.73sq.m Final Lipase 2023 26 17 - 40 U/L Final FLU A PCR 2023 Negative Negative^Negative Final FLU B PCR 2023 Negative Negative^Negative Final RSV by PCR 2023 Negative Negative^Negative Final SARS CoV 2 BY PCR 2023 Not Detected Not Detected^Not Detected Final Specific gravity [facility] 2023 1.015 1.003 - 1.035 Final Leukocyte esterase [facility] 2023 Trace (A) Negative^Negative Final Nitrite [facility] 2023 Negative Negative^Negative Final Ph 2023 5.5 5.0 - 8.5 Final Protein [facility] 2023 Negative Negative^Negative mg/dL Final Urine glucose [facility] 2023 Negative Negative^Negative mg/dL Final Ketones [facility] 2023 Trace (A) Negative^Negative mg/dL Final Urobilinogen [facility] 2023 0.2 <1.1 eu/dL Final Bilirubin [facility] 2023 Negative Negative^Negative Final Hemoglobin [facility] 2023 Small (A) Negative^Negative Final Other Testing No results found. Sangeetha Quick DO., [facility] Office: [phone] documented in this encounter [facility] 12-23-2023 Miscellaneous Notes ED Outreach This documentation is being used for Transition of Care purposes: Yes/No: Yes ED Outreach Date: December 23, 2023 ED Outreach Method: COMMUNICATION METHOD: Telephone ED Outreach Attempt: second ED Outreach Outcome: Contacted Patient Name of ED Facility: [facility] Date of ED Discharge: 2023 Discharge Diagnosis: Viral gastroenteritis ED Chief Complaint: vomiting, nausea, diarrhea Current Symptom Status: continuing- patient states that she is continuing to feel unwell. She is experiencing diarrhea. Nausea and vomiting have slowed. Denies other concerns at this time. Medication Changes Reviewed: yes Medication Questions/Concerns: denies concerns Follow-up PCP Scheduled: 12/24/2023 Follow-up Specialist Scheduled:n/a Follow up Testing Scheduled: n/a Patient Contacted Office Prior to ED Visit: No. Patient made aware of on-call provider and same day appointment availability. Additional Comments: Patient will contact the office with additional concerns. documented in this encounter [employer] 12-23-2023 Telephone encounter Note ED Outreach This documentation is being used for Transition of Care purposes: Yes/No: Yes ED Outreach Date: December 23, 2023 ED Outreach Method: COMMUNICATION METHOD: Telephone ED Outreach Attempt: second ED Outreach Outcome: Contacted Patient Name of ED Facility: [facility] Date of ED Discharge: 2023 Discharge Diagnosis: Viral gastroenteritis ED Chief Complaint: vomiting, nausea, diarrhea Current Symptom Status: continuing- patient states that she is continuing to feel unwell. She is experiencing diarrhea. Nausea and vomiting have slowed. Denies other concerns at this time. Medication Changes Reviewed: yes Medication Questions/Concerns: denies concerns Follow-up PCP Scheduled: 12/24/2023 Follow-up Specialist Scheduled:n/a Follow up Testing Scheduled: n/a Patient Contacted Office Prior to ED Visit: No. Patient made aware of on-call provider and same day appointment availability. Additional Comments: Patient will contact the office with additional concerns. [facility] 12-11-2023 Miscellaneous Notes Patient came in today and asked if her mammogram could be sent to [facility]. Also she was wondering if you would check into her in fusion at [facility]. Message noted. [facility] infusion at [facility]. She can call about setting up the infusion Informed patient via answering machine. documented in this encounter [facility] 12-11-2023 Telephone encounter Note Patient came in today and asked if her mammogram could be sent to [facility]. Also she was wondering if you would check into her in fusion at [facility]. [facility] 12-11-2023 Telephone encounter Note Message noted. The mammogram order was sent to [facility] I put a new order for the Reclast infusion at [facility]. She can call about setting up the infusion [facility] 12-11-2023 Telephone encounter Note Informed patient via answering machine. [facility] 08-21-2023 Miscellaneous Notes Patient called and the injection in her knee did not help. She wanted to know where to go from here. Does she need another apt? Message noted. She needs to see orthopedics about a knee replacement. Whom does she wish to see? LM for Patient to call back. She would like to use Dr. Mckeon Message noted. I made a referral to Dr. Mckeon. She can call his office and schedule at any time. Patient notified documented in this encounter [facility] 08-21-2023 Telephone encounter Note Patient called and the injection in her knee did not help. She wanted to know where to go from here. Does she need another apt? [facility] 08-21-2023 Telephone encounter Note Message noted. She needs to see orthopedics about a knee replacement. Whom does she wish to see? [facility] 08-21-2023 Telephone encounter Note LM for Patient to call back. [facility] 08-21-2023 Telephone encounter Note She would like to use Dr. Mckeon [facility] 08-21-2023 Telephone encounter Note Message noted. I made a referral to Dr. Mckeon. She can call his office and schedule at any time. [facility] 08-21-2023 Telephone encounter Note Patient notified [facility] [facility] 07-25-2023 History of Present illness Narrative Associated Order(s): $ Arthrocentesis Post-Procedure Diagnose(s): Osteoarthritis of left shoulder, unspecified osteoarthritis type $ Arthrocentesis Date/Time: 07/25/2023 11:44 AM Performed by: Sangeetha Quick DO Authorized by: Sangeetha Quick DO Fire Risk Assessment Score Procedure site above the Xiphoid 0 Open O2 source (mask/cannula) 0 Ignition source (Cautery, Fiberoptic Light, Laser) 0 Total Fire Risk Assessment Score 0 Verbal consent obtained?: Yes Written consent obtained?: No Risks and benefits: Risks, benefits and alternatives were discussed Consent given by: Patient Patient states understanding of procedures being performed: Yes Patient's understanding of procedure matches consent: Yes Procedure consent matches procedure scheduled: Yes Relevant documents present and verified: Yes Test results available and properly labeled: Yes Site marked: Yes Imaging studies available: Yes Required items: Required blood products, implants, devices and special equipment available Patient identity confirmed: Verbally with patient Indications: Osteoarthritis Body area: Knee Joint: Left knee Preparation: Patient was prepped and draped in usual sterile fashion Needle size: 22 G Ultrasound guidance: No Approach: Medial Aspirate: Clear Lidocaine HCL 1% amount (ml): 1 Methylprednisolone amount (mg): 40 Patient tolerance: Patient tolerated the procedure well with no immediate complications Procedure was completed Vital signs stable during the procedure Complications: none Interventions: none Post Anesthesia Evaluation (excludes pre-procedural restrictions and appropriate to age) patient returned to pre-procedure baseline post-procedure nausea and vomiting status reviewed post-procedure vital signs reviewed and stable IM PROGRESS NOTE Patient - Rach Munroe Age - 77 y.o. - 1945 ASSESSMENT & PLAN 1. Osteoarthritis of left shoulder, unspecified osteoarthritis type -discussed risks versus benefits of knee injection. Patient is agreeable to proceed. - methylPREDNISolone acetate (DEPO-MEDROL) injection 40 mg - $ Arthrocentesis Subjective 77-year-old female presents for left knee injection. Has known severe OA bilateral knees. Has been recommended to have joint replacement, but is not ready to do so. Has had knee injections in the past, but none more recently than several years ago. Left knee is most bothersome. Occasional unsteadiness and instability. A review of systems was negative except for the following: Musculoskeletal: gait disturbance, joint pain, and joint stiffness. Exam BP 118/72 (BP Site: Left Arm, BP Postition: Sitting) Pulse 68 Temp 37.2 C (99 F) (Tympanic) Ht 149.9 cm (4' 11 ) Wt 69.6 kg (153 lb 6.4 oz) SpO2 98% BMI 30.98 kg/m Physical Exam Constitutional: General: She is not in acute distress. Appearance: She is obese. She is not toxic-appearing. HENT: Head: Normocephalic. Musculoskeletal: General: Swelling (With small fusion noted in the left knee especially medially) and tenderness (Medial joint space left and right knees) present. Skin: General: Skin is warm and dry. Coloration: Skin is not jaundiced. Findings: No bruising. Neurological: General: No focal deficit present. Mental Status: She is alert and oriented to person, place, and time. Psychiatric: Mood and Affect: Mood normal. Behavior: [...] 50 mg tablet, , Disp: , Rfl: No current facility-administered medications for this visit. Lab Results No visits with results within [...] Testing No results found. Sangeetha Quick DO., [facility]: [phone] documented in this encounter [facility] 07-01-2023 History of Present illness Narrative IM [...] Testing No results found. Sangeetha Quick DO., [facility]: [phone] documented in this encounter [facility] 06-25-2023 History of Present illness Narrative IM [...] Testing No results found. Sangeetha Quick DO., [facility]: [phone] documented in this encounter [facility] 05-30-2023 History of Present illness Narrative IM PROGRESS NOTE Patient - Rach Munroe Age - 77 y.o. - 1945 ASSESSMENT & PLAN 1. Hypothyroidism, unspecified type [...] moved into a memory unit at a detention, and a son was found at home. [...] Testing No results found. Sangeetha Quick DO., [facility]: [phone] documented in this encounter [facility] 07-19-2022 Note CONSULTATION CONSULTATION DATE: 07/19/2022 TO: [...] our patients to inform us about any [id number] medications or herbal remedies/nutritional supplements/alternative remedies. 2. [...] options with their primary care provider. [facility] 04-26-2022 Note CONSULTATION CONSULTATION DATE: 04/26/2022 [...] three months' time unless otherwise indicated. [facility] 03-27-2022 Note CONSULTATION CONSULTATION DATE: 03/27/2022 [...] to proceed. CC: Sangeetha Quick D.O. [facility] 02-08-2022 Note CONSULTATION CONSULTATION DATE: 02/08/2022 [...] The patient agrees with this plan. [facility] 01-11-2022 Note CONSULTATION CONSULTATION DATE: 01/11/2022 [...] Patient would like to move forward. [facility] 12-14-2021 Note CONSULTATION PROCEDURE DATE: 12/14/2021 [...] be followed up in the office. [facility] 12-14-2021 Note CONSULTATION CONSULTATION DATE: 12/14/2021 [...] well, which she does consent to. [facility] 09-07-2021 Note CONSULTATION CONSULTATION DATE: 09/07/2021 [...] in the fall. She was referred to [facility] and is planning to have surgery in the fall following harvest season. 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 Patient feels that she can make it through the summer with a combination of her medication and occasional trigger point injections. 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 She uses heat [...] in three months' time, unless otherwise indicated. [facility] Signed and Approved by: MARIELY YUAN . 09/14/2021 16:04:00 [facility] Evaluation note Diagnosis Primary osteoarthritis of left knee- Primary [facility] Diagnosis Primary localized osteoarthritis of left knee- Primary Left knee pain, unspecified chronicity [facility] Diagnosis Hypothyroidism, unspecified type- Primary Right foot pain Pain in soft tissues of limb Vitamin D deficiency Cobalamin deficiency Other B-complex deficiencies Lichen planus atrophicus Lichen planus [facility] Diagnosis Hypothyroidism, unspecified type- Primary Cobalamin deficiency Other B-complex deficiencies Hyperlipidemia, unspecified hyperlipidemia type Osteoarthritis of left shoulder, unspecified osteoarthritis type [facility] Diagnosis Localized osteoarthritis of left knee- Primary [facility] Diagnosis Primary osteoarthritis of knees, bilateral- Primary Osteoarthritis of left shoulder, unspecified osteoarthritis type Immunization due [facility] Diagnosis Osteoarthritis of left shoulder, unspecified osteoarthritis type- Primary [facility]* Diagnosis Hordeolum externum of right upper eyelid- Primary Blepharitis of right upper eyelid, unspecified type Age-related osteoporosis without current pathological fracture Encounter for immunization [facility] Diagnosis Diarrhea, unspecified type- Primary Primary osteoarthritis of knees, bilateral Vitamin D deficiency Cobalamin deficiency Other B-complex deficiencies Age-related osteoporosis without current pathological fracture Nausea and vomiting, unspecified vomiting type [facility]* Diagnosis Age-related osteoporosis without current pathological fracture- Primary [facility]* Diagnosis Hypothyroidism Unspecified hypothyroidism Deficiency of other specified B group vitamins Vitamin D deficiency, unspecified Hordeolum externum of right upper eyelid [facility]* Diagnosis Encounter for subsequent annual wellness visit (AWV) in Medicare patient- Primary [facility] filed[facility] in [facility] filedocumented in this encounter [facility] filedocumented in this encounter [facility]* Attachments The following attachments cannot be sent through Care Everywhere. * Osteoarthritis Discharge Instructions ([place]ayan) [facility] on [facility] documented in [facility]ructionsNot on file documented in this [facility]ructionsNot on file documented in this encounter[facility] System[facility]ructionsNot on file documented in [facility] on file documented in [facility]ructionsNot on file [facility] in [facility] Summary Purpose Family History No [...] CREATED AUTHOR AUTHOR'S ORGANIZ ATION 08/29/2022 [facility] DATE CREATED AUTHOR AUTHOR'S ORGANIZ ATION 01/20/2024 [facility] EPIC DATE CREATED AUTHOR AUTHOR'S ORGANIZ ATION 05/21/2024 [facility] DATE CREATED AUTHOR AUTHOR'S ORGANIZ ATION 05/22/2024 [facility] DATE CREATED AUTHOR AUTHOR'S ORGANIZ ATION 05/24/2024 [facility] Care Teams (unrecognized sec tion and content) Family Medicine Resident Relationship Specialty Start Date End Date Sangeetha Quick MD [address] [place] [address] PCP - General Internal Medicine 09/10/23 Family Medicine Resident Relationship Specialty Start Date End Date Sangeetha Quick MD [address] [place] [address] PCP - General Internal Medicine 09/10/23 Family Medicine Resident Relationship Specialty Start Date End Date Sangeetha Quick MD [address] [place] [address] PCP - General Internal Medicine 09/10/23 Family Medicine Resident Relationship Specialty Start Date End Date Sangeetha Quick DO [address] [facility] [place] [address] PCP - General 11/09/13 Family Medicine Resident Relationship Specialty Start Date End Date Sangeetha Quick DO [address] [place] [address] PCP - General 11/09/13 Family Medicine Resident Relationship Specialty Start Date End Date Sangeetha Quick DO [address] [facility] [place] [address] PCP - General 11/09/13 Family Medicine Resident Relationship Specialty Start Date End Date Sangeetha Quick DO [address] [place] [address] PCP - General 11/09/13 Family Medicine Resident Relationship Specialty Start Date End Date Sangeetha Quick DO [address] [facility] [place] [address] PCP - General 11/09/13 Family Medicine Resident Relationship Specialty Start Date End Date Sangeetha Quick DO [address] [place] [place] [address] PCP - General 11/09/13 Family Medicine Resident Relationship Specialty Start Date End Date Sangeetha Quick DO [address] [facility] [place] [address] PCP - General 11/09/13 Family Medicine Resident Relationship Specialty Start Date End Date Sangeetha Quick DO [address] [place] [address] PCP - General 11/09/13 Family Medicine Resident Relationship Specialty Start Date End Date Sangeetha Quick DO [address] [facility] [place] [address] PCP - General 11/09/13 Family Medicine Resident Relationship Specialty Start Date End Date Sangeetha Quick DO [address] [place] [address] PCP - General 11/09/13 Family Medicine Resident Relationship Specialty Start Date End Date Sangeetha Quick DO [address] [place] [address] PCP - General 11/09/13 Family Medicine Resident Relationship Specialty Start Date End Date Sangeetha Quick DO [address] [place] [address] PCP - General 11/09/13 Family Medicine Resident Relationship Specialty Start Date End Date Sangeetha Quick DO [address] [place] [address] PCP - General 11/09/13 Reason for Visit (unrecogniz ed section and content) Reason Comments Pain Reason Comments Hair loss Reason Comments Thyroid Problem Hyperlipidemia Reason Comments Knee Pain Left knee Reason Comments lt knee injury, now both hurting Feeling better. Pain level is at a 6 Reason Comments Injection Left Knee Reason Comments swollen right eye.Since sat 01/17 Reason Onset Date Comments Er Follow-up 12/23/2023 Reason Comments Follow-up Reason Comments Outpatient Infusion reclast Specialty Diagnoses / Procedures Referred By Contac t Referred To Contact Diagnoses Age-related osteoporosis without current pathological fracture Procedures IL ZOLEDRONIC ACID 1MG IL INJECTION,THERAP/PROPH/DIAG NOST, IV PUSH, INITIAL DRUG TrentSangeetha, DO [address] [place] [address] Phone: tel: fax: Alicia Alek [facility] [address] [place] [address] Phone: tel: fax: Referral ID Status Reason Start Date Expiration Date V isits Requested Visits Authorized [id number] Authorized 12/31/2022 01/29/2025 1 1 Reason Comments Med Refill Reason Comments maw FOR RECORDS PERTAINING TO PATIENTS WHO ARE [...] BE BASED ON THE PRIMARY CLINICAL RECORDS. [facility]. provides no warranty or guarantee of the accuracy or completeness of information in this document.
--- NOTE | 2024-06-04 13:06 | PM.CN ---
Consult Note: HPI Data of Consult Patient: known to practice within the last 3 years Requesting Physician: Rosina Fleming NP Primary Care Provider: SANGEETHA QUICK Consult Narrative Reason for consult: f/u Narrative: Rach Hernandez a pleasant 78 year old female presents for evaluation and management of chronic low back pain and bilateral knee pain/OA. Tolerating tylenol arthritis, tizanidine 2mg BID PRN, and tramadol 50-100mg BID PRN well without side effects, finds mild benefit. since last visit has stopped requip with increased pain. After last visit did not get repeat L5-S1 LENY, would like to revisit today as prior lumbar LENY provided >50% improvement greater than 3 months. Pain today 6/10 burning cramping pain in low back radiating down bilateral legs cc:: CC: Rosina Fleming NP Review of Systems ROS Status of ROS 10 or more systems reviewed and unremarkable except as noted in history and below Musculoskeletal Reports: back pain and joint pain Meds Home Medications and Allergies Home Medications ?Medication ?Instructions ?Recorded ?Confirmed ?Type acetaminophen 325 mg tablet (Aphen) 650 mg PO Q6H PRN pain 10/10/22 10/29/23 History levothyroxine 50 mcg capsule 50 mcg PO DAILY 10/11/22 10/29/23 History ropinirole 0.25 mg tablet 0.25 mg PO DAILY 10/11/22 10/29/23 History rosuvastatin 10 mg tablet 10 mg PO DAILY 10/11/22 10/29/23 History tizanidine 2 mg tablet 2 mg PO BID PRN spasm 10/11/22 10/29/23 History tramadol 50 mg tablet 50 mg PO BID 10/11/22 10/29/23 History zoledronic acid 5 mg/100 mL in ea IV .1 YEAR 01/10/23 History mannitol 5 %-water intravenous piggybck (Reclast) cholecalciferol (vitamin D3) 1,250 50,000 unit PO QWEEK 09/11/23 10/29/23 History mcg (50,000 unit) capsule ergocalciferol (vitamin D2) 1,250 1,250 mcg PO QWEEK 09/11/23 10/29/23 History mcg (50,000 unit) capsule estradiol 0.01% (0.1 mg/gram) 0.25 appful vaginal DAILY PRN 09/11/23 10/29/23 History vaginal cream itching tramadol 50 mg tablet 100 mg (2 x 50 mg) PO BID PRN pain 12/25/23 Rx #120 tabs Allergies Allergy/AdvReac Type Severity Reaction Status Date / Time aspirin Allergy Hives Verified 10/29/23 07:52 codeine Allergy Hives Verified 10/29/23 07:52 iodine Allergy Blister Verified 10/29/23 07:52 latex Allergy Blister Verified 10/29/23 07:52 pregabalin (From Lyrica) Allergy Abdominal Verified 10/29/23 07:52 Pain Sulfa (Sulfonamide Allergy Abdominal Verified 10/29/23 07:52 Antibiotics) Pain Exam Constitutional Documenting provider has reviewed patient's vital signs: yes Common normals: no apparent distress, oriented x3, healthy appearing, alert and well nourished General appearance: cooperative HENMT Common normals: normocephalic, hearing grossly normal bilaterally and moist oral mucous membranes Head and scalp: normocephalic Eye Common normals: PERRL Pupil: PERRL Neck & C-Spine Common normals: full ROM General: normal visual inspection Other: pain with ROM positive spurlings left intermittent radiculopathy to left arm Chest Common normals: inspection of chest normal Respiratory Common normals: normal respiratory effort, no retractions and no use of accessory muscles Back & Pelvis Thoracic spine/upper back: pain with ROM Lumbar spine/lower back: pain with ROM, lumbar spinal tenderness, paraspinal muscle tenderness, straight leg raise positive right and straight leg raise positive left Sacroiliac joints: SI joint(s) abnormal Other: pain with jose l, FADER, gaenslen. Right>L lumbar radiculopathy to bilateral L5-S1, strength 5/5 in BLE positive facet loading, pain over L4-S1 facets Extremity Common normals: normal to inspection and full ROM Right lower extremity: knee joint Left lower extremity: knee joint Left knee: inspection (mild edema noted, no discoloration or redness), palpation (tenderness most significant over MCL and meniscus), ROM (limited due to pain) and special tests Other: moderate crepitus to bilateral knees, pain with medial and lateral stress testing, enlarged diameters, mild edema to bilateral knees. no instability noted Neuro Common normals: oriented x3, CN's II-XII intact bilaterally, moves all extremities, no focal motor deficits, no sensory deficits noted and deep tendon reflexes 2+ bilaterally Sensorium/orientation: alert Motor exam: strength 5/5 throughout and no movement abnormalities noted Psych Common normals: mental status grossly normal, thought process normal, cooperative, affect normal, speech normal and activity/motor behavior normal Speech: normal speech Thought process: normal thought process Results Additional Findings Additional findings: If on a controlled substance or opioids, I have checked an [place]AR[place] report on this patient and there are no aberrancies noted in the prescribing history.??If on a controlled substance or opioid a drug screen was completed and reviewed within the last year, and if there has not been a drug screen completed we ordered one today to monitor higher risk, state monitored pain medication use. As part of providing excellent, safe, comprehensive care, the following was completed at our patient's visit: 1. A medication reconciliation and review to ensure accurate knowledge of current/active medications, including asking our patients to inform us about any [id number] medications or herbal remedies/nutritional supplements/alternative remedies. 2. A review to specifically ensure our patients have had annual screening for screening for depression, screening for tobacco use, and screening for unhealthy alcohol use. For concerning screenings had a discussion with the patient, provided patient education, and recommended follow-up with primary care provider when appropriate. If patient noted with a risk of falling, they received education on strength, gait, and balance training to prevent future risk of falling. Assessment and Plan Assessment and Plan (1) Lumbar radiculopathy: (2) Osteoarthritis of right knee: (3) Osteoarthritis of left knee: (4) Chronic prescription opiate use: Assessment and Plan: I feel these medications are improving the patient's quality of life and allow them to tolerate activities of daily living as well as participate in recreational activity.? The patient does not report intolerable side effects. The patient is NOT opioid naive and non-pharmacologic and non-opioid treatment has failed to significantly relieve the patient's pain and improve functionality. The patient has a diagnosis that is related to a somatic or visceral pain etiology. ? ?? I reviewed with the patient the potential risks and side effects with the use of? opioid medications including but not limited to respiratory depression,? sedation, and even . Within the last 12 months I have verified the patient has access to naloxone should? these effects occur. The patient was advised to let? their family know they had Naloxone in case they would need to administer? the medication. I advised the patient to avoid the use of any other? sedation substances including alcohol, THC, and benzodiazepines while? taking opioid medications due to the risk of compounding side effects and? detrimental outcomes. within the last 12 months I have reviewed the [employer], pain treatment agreement and urine drug screen.? ?? A drug screen was completed within the last year, and no aberrancies were noted regarding their use of controlled substances. The patient understands they are subject to the terms and conditions of the pain contract that they have signed. ? ?? I have checked an OARRS report on this patient today and there are no aberrancies noted in the prescribing history.? (5) Lumbar spondylosis: (6) Osteoarthritis: Plan repeat L5-S1 LENY under fluoroscopy for lumbar radiculopathy, risks vs benefits reviewed. previous injection provided >50% improvement greater than 3 months consider bilateral L4-5 L5-S1 facet RFAs in the future for axial low back pain secondary to lumbar spondylosis consider genicular nerve blocks working towards RFA vs repeat durolane restart requip 0.25mg HS for restless legs continue current medications, tolerating well without side effects f/u 2 weeks after LENY
== END 2024-06-04 12:30 | disposition home or self-care (01) ==
PROVIDERS: PCP Internal Medicine; Visit Provider Nurse Practitioner
DX: M54.16 Radiculopathy, lumbar region (principal); M17.0 Bilateral primary osteoarthritis of knee; Z79.891 Long term (current) use of opiate analgesic; M47.816 Spondylosis without myelopathy or radiculopathy, lumbar region
CPT/HCPCS: G0463

== ENCOUNTER 2024-06-16 06:44 | Day surgery (SDC) | payer MEDICARE, SELFPAY ==
--- OUTSIDE RECORDS SUMMARY | 2024-06-16 06:48 | XMS_ITS | CCD ---
Author Organization [facility] Care Team Providers Care Hydropulper Operator Name Role Phone LAKSHMIPATHY, NARENDRANATH Attending Unava ilable LAKSHMIPATHY, NARENDRANATH Admitting Unava ilable YUHAS, DR VIVAS Primary Care Unavailable LAKSHMIPATHY, NARENDRANATH Consulting Unava ilable FRANCI .MRIEYA Consulting Unavailable BARRAZA ., DR YINKA Alford Consulting Unavailable BARRAZA ., DR YINKA Alford Attending Unavailable BARRAZA ., DR YINKA Alford Admitting Unavailable YUHAS, DR VIVAS Primary Care Unavailable BARRAZA ., DR YINKA Alford Attending Unavailable BARRAZA ., DR YINKA Alford Admitting Unavailable YUAN .MARIELY Consulting Unavailable YUHAS, DR VIVAS Primary Care Unavailable LAKSHMIPATHY, NARYANYATH Attending Unava ilable LAKSHMIPATHY, NARENDRANATH Admitting Unava ilable YUHAS, DR VIVAS Primary Care Unavailable LAKSHMIPATHY, NARENDRANATH Admitting Unava ilable YUHAS, DR VIVAS Primary Care Unavailable LAKSHMIPATHY, NARFAUSTINO Attending Unava ilable BARRAZA ., DR YINKA Alford Attending Unavailable BARRAZA ., DR YINKA Alford Admitting Unavailable YUAN ., MARIELY Consulting Unavailable YUHAS, DR VIVAS Primary Care Unavailable LAKSHMIPATHY, NARENDOMAR Attending Unava ilable LAKSHMIPATHY, NARENDRANATH Admitting Unava ilable YUHAS, DR VIVAS Primary Care Unavailable LAKSHMIPATHY, NARENDOMAR Consulting Unava ilable BARRAZA ., DR YINKA Alford Consulting Unavailable BARRAZA ., DR YINKA Alford Attending Unavailable BARRAZA ., DR YINKA Alford Admitting Unavailable YUHAS, DR VIVAS Primary Care Unavailable YUHAS, DR VIVAS Consulting Unavailable YUHAS, DR VIVAS Attending Unavailable YUHAS, DR VIVAS Admitting Unavailable YUHAS, DR VIVAS Primary Care Unavailable Zieber, Ronaldo Consulting Unavailable BARRAZA ., DR YINKA Alford [...] VIVAS Primary Care Unavailable BARRAZA ., DR YIKNA Alford Attending Unavailable YUAN ., MARIELY Consulting Unavailable YUHAS, DR VIVAS Primary Care Unavailable BRARAZA ., DR YINKA Alford Admitting Unavailable LAKSHMIPATHY, [...] Attending Sangeetha Pimentel MD Primary Care Provider [phone] Sangeetha Quick DO Primary Care Provider SANGEETHA [...] SANGEETHA QUICK Primary Care Unavailable SANGEETHA QUICK Referring Unavailable SANGEETHA QUICK Primary Care Unavailable YUHAS, SANGEETHA L Attending [...] Facility (1 source) Aspirin Drug Allergy [facility] Rep[facility] (4 sources) Codeine; Translations: [CODEINE] Drug Allergy 8 [facility] (1 source) Etodolac Drug Allergy [facility] (4 sources) Iodine; Translations: [IODINE] Drug Allergy 8 [facility] (4 sources) Latex; Translations: [LATEX] Drug allergy (disorder) 3 [facility] (1 source) pregabalin Drug Allergy [facility] (1 source) Sulfonamides (Antibiotic) Drug allergy (disorder) [facility] (6 sources) Aluminum aspirin Drug Allergy 4 [facility] (20 sources) Codeine Drug Allergy 8 Rash, Unknown [facility] (9 sources) Etodolac; Translations: [ETODOLAC] Propensity to adverse reactions 3 [facility] (20 sources) Iodine Drug Allergy 8 Anaphylaxis [facility] (6 sources) Latex Propensity to adverse reactions 3 [facility] (9 sources) Penicillins; Translations: [PENICILLINS] Drug Intolerance 8 Hives [facility] (20 sources) Sulfonamides (Antibiotic) Drug Intolerance 8 Rash, Unknown [facility] (19 sources) Aspirin; Translations: [ASPIRIN, BUFFERED] Drug Allergy 8 [facility] (16 sources) Etodolac Drug Allergy 3 [facility] (16 sources) Latex Propensity to adverse reactions to drug 3 [facility] (16 sources) Penicillins Propensity to adverse reactions to drug 8 [facility] (3 sources) Sulfonamides (Antibiotic); Translations: [SULFA (SULFONAMIDE ANTIBIOTICS)] Propensity to adverse reactions to drug (disorder) [address] [facility] Medications Current Medications Medication Drug Class(es) [...] 12/29/2023 Active cholecalciferol 1.25 mg oral capsule (19 sources) Vitamin D Start: 05-22-2023 End: 02-25-2024 take 1 capsule [...] mg oral tablet (20 sources) l-Thyroxine Start: 05-21-2023 End: 02-25-2024 take 1 tablet by mouth once daily levothyroxine (SYNTHROID, LEVOTHROID) 50 MCG tablet Indications: Hypothyroidism TAKE 1 TABLET BY MOUTH EVERY DAY 90 tablet 1 02/25/2024 Active ondansetron 4 mg disintegrating oral tablet (11 sources) Serotonin-3 Receptor Antagonist Start: 12-24-2023 ondansetron [...] tablet (20 sources) Nonergot Dopamine Agonist Start: 12-01-2022 take 1 tablet by mouth once daily at bedtime rOPINIRole (REQUIP) 0.25 mg tablet TAKE 1 TABLET BY MOUTH EVERY DAY 1-3 HOURS BEFORE BEDTIME 03/15/2022 Active rosuvastatin calcium 10 mg oral tablet (20 sources) HMG-CoA Reductase Inhibitor Start: 05-21-2023 End: 06-09-2024 take 1 tablet by mouth once daily rosuvastatin (CRESTOR) 10 mg tablet Indications: Hyperlipidemia, unspecified TAKE 1 TABLET BY MOUTH EVERY DAY 90 tablet 1 06/09/2024 Active tiZANidine 4 mg oral tablet (20 sources) Central alpha-2 Adrenergic Agonist Start: 05-27-2023 take 1 tablet by mouth twice daily as needed tiZANidine (Zanaflex) 4 MG tablet TAKE 1/2-1 TABLET BY MOUTH TWICE A DAY NEEDED 05/27/2023 Active Start: 07-14-2022 take 1 tablet by mike th twice daily as needed for muscle spasms tiZANidine (ZANAFLEX) 2 mg tablet Indications: Left cervical radiculopathy TAKE 1 TABLET BY MOUTH TWICE DAILY NEEDED FOR MUSCLE SPASMS 30 tablet 2 07/14/2022 Active traMADol hydrochloride 50 mg oral tablet (20 sources) Opioid Agonist Start: 03-19-2022 traMADoL (ULTR AM) 50 mg tablet 03/19/2022 Active vitamin b12 1 mg oral tablet (15 sources) Vitamin B12 Start: 05-20-2024 take 1 tablet by mouth in the morning cyanocobalamin (vitamin B-12) 1000 MCG tablet Indications: Cobalamin deficiency Take 1 tablet (1,000 mcg total) by mouth in the morning. 90 tablet 1 05/20/2024 Active Start: 11-07-2022 End: 01-20-2024 take 2 tablets by mouth once daily Cyanocobalamin ER 1000 MCG tablet controlled-release Take 2 tablets by mouth Daily 11/07/2022 01/20/2024 Discontinued (Therapy completed) Completed/Discontinued Medications Medication Drug Class(es) Dates Sig [...] injection (2 sources) Corticosteroid Start: 4 End: methylPREDNISolone acetate (DEPO-MEDROL) injection 40 mg Start: 07-25-2023 End: 07-25-2023 40 mg, intra-articular, Once , On Marita 07/25/23 at 1145, For 1 dose, Look-alike/sound-alike medication - verify indication for use. May alter blood glucose or insulin requirements. 100 ml zoledronic acid 0.05 mg/ml injection [...] Onset: 08-22-2022 Chronic Disorders of lipid metabolism (20 sources) Hyperlipidemia; Translations: [Hyperlipidemia, unspecified] Onset: 12-15-2020 12-15-2020 Chronic Mood disorders (16 sources) Depressive disorder; Translations: [Depressive disorder] Onset: [...] 01-07-2024 Episodic Prolapse of female genital organs (16 sources) Cystocele; Translations: [Cystocele, unspecified] Onset: 12-15-2020 12-15-2020 Chronic Residual codes; unclassified (16 sources) Obstructive sleep apnea syndrome; Translations: [Obstructive [...] Date Documented Da te Episodic/Chronic Abdominal hernia (16 sources) Hiatal hernia; Translations: [Diaphragmatic hernia without [...] infection, unspecified] Onset: 2023 Episodic Mood disorders (16 sources) Mood disorders Onset: 02-27-2024 Resolved: 05-19-2024 05-19-2024 Nausea and vomiting (4 sources) Nausea with vomiting, unspecified; Translations: [Vomiting] Onset: 2023 12-24-2023 Episodic Nutritional deficiencies (20 sources) Cobalamin deficiency; Translations: [Deficiency of other specified B group vitamins] Onset: 04-19-2021 05-19-2024 Episodic Other female genital disorders (16 sources) Leukoplakia of vulva; Translations: [Circumscribed scleroderma] [...] breast] Onset: 12-26-2023 Episodic Other skin disorders (16 sources) Alopecia; Translations: [Nonscarring hair loss, unspecified] [...] Perez MD on 05/23/2024 9:39 PM Normal [facility] CBC AND AUTO DIFFon 05-19-19 25 ABSOLUTE BASOPHIL 0.0 X10E9/L Normal 0.0-0.2 [facility] Comment on above: Performed By: #### C BCA, CMP, THYR, 2131-12, 20906-3 #### [facility] ([id number]) [address], [address] [place] [address] ABSOLUTE NEUTROPHIL 4.4 X10E9/L Normal 1.5-6.6 [facility] Comment on above: Performed By: #### C BCA, CMP, THYR, 2131-12, 79235-7 #### [facility] ([id number]) [address], [address] [place] [address] Basophils/100 WBC (Bld) 0.2 % Normal [facility] Comment on above: Performed By: #### C BCA, CMP, THYR, 2131-12, 28421-4 #### [facility] ([id number]) [address], [address] [place] [address] Eosinophils (Bld) [#/Vol] 0.1 10*3/uL Normal 0.0-0.4 [facility] Comment on above: Performed By: #### C BCA, CMP, THYR, 2131-12, 40760-5 #### [facility] ([id number]) [address] [place] [address] Eosinophils/100 WBC (Bld) 1.2 % Normal [facility] Comment on above: Performed By: #### C BCA, CMP, THYR, 2131-12, 16963-3 #### [facility] ([id number]) [address] [place] [address] Erythrocyte distribution width (RBC) [Ratio] 14.9 % Normal 11.5-15.0 [facility] Comment on above: Performed By: #### C BCA, CMP, THYR, 2131-12, 98753-7 #### [facility] ([id number]) [address] [place] [address] Hematocrit (Bld) [Volume fraction] 34.6 % Low 35-47 [facility] Comment on above: Performed By: #### C BCA, CMP, THYR, 2131-12, 90323-8 #### [facility] ([id number]) [address] [place] [address] Hemoglobin (Bld) [Mass/Vol] 11.2 g/dL Low 11.7-15.5 [facility] Comment on above: Performed By: #### C BCA, CMP, THYR, 2131-12, 83714-4 #### [facility] ([id number]) [address] [place] [address] Lymphocytes (Bld) [#/Vol] 2.5 10*3/uL Normal 1.0-3.5 [facility] Comment on above: Performed By: #### C BCA, CMP, THYR, 2131-12, 33564-6 #### [facility] ([id number]) [address], [address] [place] [address] Lymphocytes/100 WBC (Bld) 33.7 % Normal [facility] Comment on above: Performed By: #### C BCA, CMP, THYR, 2131-12, #### [facility] ([id number]) [address], [address] [place] [address] MCH (RBC) [Entitic mass] 27.7 pg Normal 27-34 [facility] Comment on above: Performed By: #### C BCA, CMP, THYR, 2131-12, 92365-3 #### [facility] ([id number]) [address], [address] [place] [address] MCHC (RBC) [Mass/Vol] 32.4 g/dL Normal 32-36 [facility] Comment on above: Performed By: #### C BCA, CMP, THYR, 2131-12, 54889-8 #### [facility] ([id number]) [address], [address] [place] [address] MCV (RBC) [Entitic vol] 86 fL Normal 80-100 [facility] Comment on above: Performed By: #### C BCA, CMP, THYR, 2131-12, 49748-6 #### [facility] ([id number]) [address], [address] [place] [address] Monocytes (Bld) [#/Vol] 0.4 10*3/uL Normal 0-0.9 [facility] Comment on above: Performed By: #### C BCA, CMP, THYR, 2131-12, 99070-9 #### [facility] ([id number]) [address], [address] [place] [address] Monocytes/100 WBC (Bld) 5.8 % Normal [facility] Comment on above: Performed By: #### C BCA, CMP, THYR, 2131-12, 12526-7 #### [facility] ([id number]) [address] [address] [place] [address] Neutrophils/100 WBC (Bld) 59.1 % Normal [facility] Comment on above: Performed By: #### C BCA, CMP, THYR, 2131-12, 34085-3 #### [facility] ([id number]) [address], [address] [place] [address] Platelet mean volume (Bld) [Entitic vol] 9.4 fL Normal 7-12 [facility] Comment on above: Performed By: #### C BCA, CMP, THYR, 2131-12, 16278-8 #### [facility] ([id number]) [address] [address] [place] [address] Platelets (Bld) [#/Vol] 242 10*3/uL Normal 150-450 [facility] Comment on above: Performed By: #### C BCA, CMP, THYR, 2131-12, 57594-9 #### [facility] ([id number]) [address] [place] [address] RBC COUNT 4.04 X10E12/L Normal 3.80-5.20 [facility] Comment on above: Performed By: #### C BCA, CMP, THYR, 2131-12, 90754-4 #### [facility] ([id number]) [address] [address] [place] [address] WBC (Bld) [#/Vol] 7.5 10*3/uL Normal 4.0-11.0 [facility] Comment on above: Performed By: #### C BCA, CMP, THYR, 2131-12, 05384-9 #### [facility] ([id number]) [address], [address] [place] [address] COMPREHENSIVE METABOLIC PANE Ulices 05-19-2024 Albumin [Mass/Vol] 4.3 g/dL Normal 3.2-5.3 [facility] Comment on above: Performed By: #### C BCA, CMP, THYR, 2131-12, 99833-6 #### [facility] ([id number]) [address], [address] [place] [address] ALP [Catalytic activity/Vol] 51 U/L Normal 39-130 [facility] Comment on above: Performed By: #### C BCA, CMP, THYR, 2131-12, 65446-8 #### [facility] ([id number]) [address], [address] [place] [address] ALT [Catalytic activity/Vol] 10 U/L Normal 0-31 [facility] Comment on above: Performed By: #### C BCA, CMP, THYR, 2131-12, 01068-0 #### [facility] ([id number]) [address], [address] [place] [address] Anion gap [Moles/Vol] 8 mmol/L Normal 5-15 [facility] Comment on above: Performed By: #### C BCA, CMP, THYR, 2131-12, 93757-7 #### [facility] ([id number]) [address], [address] [place] [address] AST [Catalytic activity/Vol] 17 U/L Normal 0-41 [facility] Comment on above: Performed By: #### C BCA, CMP, THYR, 2131-12, 17823-2 #### [facility] ([id number]) [address], [address] [place] [address] Bilirubin [Mass/Vol] 0.4 mg/dL Normal 0.3-1.2 [facility] Comment on above: Performed By: #### C BCA, CMP, THYR, 2131-12, 74392-2 #### [facility] ([id number]) [address], [address] [place] [address] Calcium [Mass/Vol] 8.8 mg/dL Normal 8.5-10.5 [facility] Comment on above: Performed By: #### C BCA, CMP, THYR, 2131-12, 44880-6 #### [facility] ([id number]) [address], [address] [place] [address] Chloride [Moles/Vol] 104 mmol/L Normal 98-109 [facility] Comment on above: Performed By: #### C BCA, CMP, THYR, 2131-12, 98555-2 #### [facility] ([id number]) [address] [place] [address] CO2 [Moles/Vol] 28 mmol/L Normal 22-32 [facility] Comment on above: Performed By: #### C BCA, CMP, THYR, 2131-12, 13984-4 #### [facility] ([id number]) [address] [address] [place] [address] Creatinine [Mass/Vol] 0.93 mg/dL Normal 0.40-1.00 [facility] Comment on above: Result Comment: METH OD TRACEABLE TO IDMS STANDARD Performed By: #### C BCA, CMP, THYR, 2131-12, 35995-1 #### [facility] ([id number]) [address], [address] [place] [address] GFR/1.73 sq M.predicted among non-blacks MDRD (S/P/Bld) [Vol rate/Area] 64 mL/min/{1.73_m2} Normal >59 [facility] Comment on above: Result Comment: Reported eGFR is based on the CKD-EPI 2020 equation that does not use a race coefficient. Performed By: #### C BCA, CMP, THYR, 2131-12, 55441-7 #### [facility] ([id number]) [address], [address] [place] [address] Glucose [Mass/Vol] 87 mg/dL Normal 65-99 [facility] Comment on above: Performed By: #### C BCA, CMP, THYR, 2131-12, 93501-9 #### [facility] ([id number]) [address], [address] [place] [address] Potassium [Moles/Vol] 4.1 mmol/L Normal 3.5-5.0 [facility] Comment on above: Performed By: #### C BCA, CMP, THYR, 2131-12, 18803-3 #### [facility] ([id number]) [address], [address] [place] [address] Protein [Mass/Vol] 6.6 g/dL Normal 6.0-8.0 [facility] Comment on above: Performed By: #### C BCA, CMP, THYR, 2131-12, 01218-9 #### [facility] ([id number]) [address], [address] [place] [address] Sodium [Moles/Vol] 140 mmol/L Normal 134-146 [facility] Comment on above: Performed By: #### C BCA, CMP, THYR, 2131-12, 24986-6 #### [facility] ([id number]) [address], [address] [place] [address] Urea nitrogen [Mass/Vol] 20 mg/dL Normal 5-27 [facility] Comment on above: Performed By: #### C BCA, CMP, THYR, 2131-12, 71897-2 #### [facility] ([id number]) [address], [address] [place] [address] THYROID PROFILEon 05-19-2024 Free T4 [Mass/Vol] 0.95 ng/dL Normal 0.61-1.60 [facility] Comment on above: Performed By: #### C BCA, CMP, THYR, 2131-12, 78540-2 #### [facility] ([id number]) [address] [facility] [place] [address] TSH 0.60 uIU/mL Normal 0.49-4.67 [facility] Comment on above: Performed By: #### C BCA, CMP, THYR, 2131-12, 62639-9 #### [facility] ([id number]) [address] [place] [address] VITAMIN B12on 05-19-2024 Cobalamin (Vitamin B12) [Mass/Vol] 319 pg/mL Normal 180-914 [facility] Comment on above: Performed By: #### C BCA, CMP, THYR, 2131-12, 65638-4 #### [facility] ([id number]) [address] [place] [address] Vitamin D+Metabolites [Mass/ Vol]on 05-19-2024 VITAMIN D 25 HYD TOT 97.5 ng/mL Normal 30-100 [facility] Comment on above: Result Comment: Vitamin D status 25 [place] Vitamin D Deficiency <20 ng/mL Insufficiency 20-29 ng/mL Sufficiency 30-100 ng/mL Toxicity >100 ng/mL NOTE: A pediatric reference range has not been established by the painter chassis of this kit. The [place] [employer] recommends a Vitamin D level of = or >20ng/mL in infants and children. Performed By: #### C BCA, CMP, THYR, 2131-12, 15451-7 #### [facility] ([id number]) [address] [place] [address] ALBUMINon 02-05-2024 Albumin [Mass/Vol] 4.1 g/dL Normal 3.2-5.3 [facility] Comment on above: Performed By: #### C BCA, CMP, 3040-3 #### [facility] ([id number]) [address] [place] [address] CALCIUMon 02-05-2024 Calcium [Mass/Vol] 8.9 mg/dL Normal 8.5-10.5 [facility] Comment on above: Performed By: #### C TANNER HARDY, 3040-3 #### [facility] ([id number]) [address] [place] [address] CREATININEon 02-05-2024 Creatinine [Mass/Vol] 0.70 mg/dL Normal 0.40-1.00 [facility] Comment on above: Result Comment: METH OD TRACEABLE TO IDMS STANDARD Performed By: #### C TANNER HARDY, 3040-3 #### [facility] ([id number]) [address] [place] [address] GFR/1.73 sq M.predicted among non-blacks MDRD (S/P/Bld) [Vol rate/Area] 90 mL/min/{1.73_m2} Normal >59 [facility] Comment on above: Result Comment: Reported eGFR is based on the CKD-EPI 2020 equation that does not use a race coefficient. Performed By: #### C TANNER HARDY, 3040-3 #### [facility] ([id number]) [address] [place] [address] Vitamin D+Metabolites [Mass/ Vol]on 02-05-2024 VITAMIN D 25 HYD TOT 78.5 ng/mL Normal 30-100 [facility] Comment on above: Result Comment: Vitamin D status 25 [place] Vitamin D Deficiency <20 ng/mL Insufficiency 20-29 ng/mL Sufficiency 30-100 ng/mL Toxicity >100 ng/mL NOTE: A pediatric reference range has not been established by the painter chassis of this kit. The [place] [employer] recommends a Vitamin D level of = or >20ng/mL in infants and children. Performed By: #### C [facility], [facility], 3040-3 #### [facility] ([id number]) [address] [place] [address], [place] [address] XR Knee - left 1 or 2 Viewso n 01-08-2024 Imaging Result: AP and lateral views of left knee showed severe varus deformity with [id number] articulation to the medial joint line, flattening [...] joint disease left knee with varus deformity [facility] XR Knee - left 1 or 2 ViewsO rdered By: Jr. Mckeon on 01-08-2024 [facility] [employer] Work Phone: XR Knee - left 1 or 2 Viewso n 01-07-2024 Radiology Study observation (narrative) [facility] GI PANELon 12-26-2023 Gastrointestinal pathogens DNA and [...] SAPOVIRUS Not detected (qualifier value) Normal NDET [facility] Comment on above: Performed By: #### 8 2195-9 #### [facility] ([id number]) [address] [place] [address] [facility] ([id number]) [address] [place] [address] MAMM SCREENING BILATERAL W C financial business analyst 12-26-2023 MAMM SCREENING BILATERAL W CAD MAMM SCREENING BILATERAL W CAD RACH MUNROE 1945 [id number] EXAM: MAMM SCREENING BILATERAL W CAD, 12/26/2023 [...] PM 1 c MAMM 1 YR Normal [facility] BASIC METABOLIC PANLon 12-24 Anion gap [Moles/Vol] 10 mmol/L Normal 5-15 [facility] Comment on above: Performed By: #### B KIMBERLY, 2131-12 #### [facility] ([id number]) [address], [address] [place] [address] Calcium [Mass/Vol] 8.8 mg/dL Normal 8.5-10.5 [facility] Comment on above: Performed By: #### B KIMBERLY, 2131-12 #### [facility] ([id number]) [address] [place] [address] Chloride [Moles/Vol] 105 mmol/L Normal 98-109 [facility] Comment on above: Performed By: #### B KIMBERLY 2131-12 #### [facility] ([id number]) [address] [place] [address] CO2 [Moles/Vol] 26 mmol/L Normal 22-32 [facility] Comment on above: Performed By: #### Lm HARRIS, 2131-12 #### [facility] ([id number]) [address] [place] [address] Creatinine [Mass/Vol] 0.73 mg/dL Normal 0.40-1.00 [facility] Comment on above: Result Comment: METH OD TRACEABLE TO IDMS STANDARD Performed By: #### Lm HARRIS, 2131-12 #### [facility] ([id number]) [address] [place] [address] GFR/1.73 sq M.predicted among non-blacks MDRD (S/P/Bld) [Vol rate/Area] 85 mL/min/{1.73_m2} Normal >59 [facility] Comment on above: Result Comment: Reported eGFR is based on the CKD-EPI 2020 equation that does not use a race coefficient. Performed By: #### Lm HARRIS, 2131-12 #### [facility] ([id number]) [address] [place] [address] Glucose [Mass/Vol] 92 mg/dL Normal 65-99 [facility] Comment on above: Performed By: #### Lm HARRIS, 2131-12 #### [facility] ([id number]) [address] [place] [address] Potassium [Moles/Vol] 3.4 mmol/L Low 3.5-5.0 [facility] Comment on above: Performed By: #### Lm HARRIS, 2131-12 #### [facility] ([id number]) [address] [place] [address] Sodium [Moles/Vol] 141 mmol/L Normal 134-146 [facility] Comment on above: Performed By: #### Lm HARRIS, 2131-12 #### [facility] ([id number]) [address] [place] [address] Urea nitrogen [Mass/Vol] 22 mg/dL Normal 5-27 [facility] Comment on above: Performed By: #### Lm HARRIS, 2131-12 #### [facility] ([id number]) [address] [place] [address] VITAMIN B12on 12-25-2023 Cobalamin (Vitamin B12) [Mass/Vol] pg/mL High 180-914 [facility] Comment on above: Performed By: #### Lm HARRIS, 2131-12 #### [facility] ([id number]) [address] [place] [address] CBC AND AUTO DIFFon 12-21-19 24 ABSOLUTE BASOPHIL 0.0 X10E9/L Normal 0.0-0.2 [facility] Comment on above: Performed By: #### C HAYLEY CMP, 3040-3 #### [facility] ([id number]) [address] [place] [address] 90424 ABSOLUTE NEUTROPHIL 7.4 X10E9/L High 1.5-6.6 [facility] Comment on above: Performed By: #### Renee HARDY CMP, 0-3 #### [facility] ([id number]) [address] [place] [address] 24387 Basophils/100 WBC (Bld) 0.3 % Normal [facility] Comment on above: Performed By: #### Renee HARDY CMP, 3040-3 #### [facility] ([id number]) [address] [place] [address] 39639 Eosinophils (Bld) [#/Vol] 0.1 10*3/uL Normal 0.0-0.4 [facility] Comment on above: Performed By: #### C BCA, CMP, 3039-06 #### [facility] ([id number]) [address] [place] [address] 39834 Eosinophils/100 WBC (Bld) 0.7 % Normal [facility] Comment on above: Performed By: #### Renee HARDY CMP, 3039-06 #### [facility] ([id number]) [address] [place] [address] 99790 Erythrocyte distribution width (RBC) [Ratio] 15.3 % High 11.5-15.0 [facility] Comment on above: Performed By: #### Renee HARDY CMP, 3039-06 #### [facility] ([id number]) [address] [place] [address] 47724 Hematocrit (Bld) [Volume fraction] 35.6 % Normal 35-47 [facility] Comment on above: Performed By: #### Renee HARDY CMP, 3039-06 #### [facility] ([id number]) [address] [place] [address] 08014 Hemoglobin (Bld) [Mass/Vol] 11.8 g/dL Normal 11.7-15.5 [facility] Comment on above: Performed By: #### Renee HARDY CMP, 3039-06 #### [facility] ([id number]) [address] [place] [address] 14546 Lymphocytes (Bld) [#/Vol] 1.1 10*3/uL Normal 1.0-3.5 [facility] Comment on above: Performed By: #### Renee HARDY CMP, 3039-06 #### [facility] ([id number]) [address] [place] [address] 75135 Lymphocytes/100 WBC (Bld) 11.6 % Normal [facility] Comment on above: Performed By: #### Renee HARDY CMP, 3039-06 #### [facility] ([id number]) [address] [place] [address] 25006 MCH (RBC) [Entitic mass] 27.8 pg Normal 27-34 [facility] Comment on above: Performed By: #### Renee HARDY CMP, 3039-3 #### [facility] ([id number]) [address] [place] [address] 72887 MCHC (RBC) [Mass/Vol] 33.1 g/dL Normal 32-36 [facility] Comment on above: Performed By: #### Renee HARDY CMP, 3039-06 #### [facility] ([id number]) [address] [place] [address] 24374 MCV (RBC) [Entitic vol] 84 fL Normal 80-100 [facility] Comment on above: Performed By: #### Renee HARDY CMP, 3 #### [facility] ([id number]) [address] [place] [address] 39344 Monocytes (Bld) [#/Vol] 0.6 10*3/uL Normal 0-0.9 [facility] Comment on above: Performed By: #### Renee HARDY CMP, 3039-06 #### [facility] ([id number]) [address] [place] [address] 30306 Monocytes/100 WBC (Bld) 6.4 % Normal [facility] Comment on above: Performed By: #### Renee HARDY CMP, 3039-06 #### [facility] ([id number]) [address] [place] [address] 29795 Neutrophils/100 WBC (Bld) 81.0 % Normal [facility] Comment on above: Performed By: #### Renee HARDY CMP, 3039-06 #### [facility] ([id number]) [address] [place] [address] 03932 Platelet mean volume (Bld) [Entitic vol] 8.9 fL Normal 7-12 [facility] Comment on above: Performed By: #### C HAYLEY, CMP, 0-3 #### [facility] ([id number]) [address] [place] [address] 33109 Platelets (Bld) [#/Vol] 255 10*3/uL Normal 150-450 [facility] Comment on above: Performed By: #### Renee HARDY CMP, 3039-3 #### [facility] ([id number]) [address] [place] [address] 14461 RBC COUNT 4.24 X10E12/L Normal 3.80-5.20 [facility] Comment on above: Performed By: #### Renee HARDY CMP, 3 #### [facility] ([id number]) [address] [place] [address] 19222 WBC (Bld) [#/Vol] 9.1 10*3/uL Normal 4.0-11.0 [facility] Comment on above: Performed By: #### Renee HARDY, CMP, 3039-3 #### [facility] ([id number]) [address] [place] [address] 22371 COMPREHENSIVE METABOLIC PANE [facility] 2023 Albumin [Mass/Vol] 4.2 g/dL Normal 3.2-5.3 [facility] Comment on above: Performed By: #### Renee HARDY, CMP, 3039-3 #### [facility] ([id number]) [address] [place] [address] 09107 ALP [Catalytic activity/Vol] 63 U/L Normal 39-130 [facility] Comment on above: Performed By: #### C BCA, CMP, 3039-3 #### [facility] ([id number]) [address] [place] [address] 08350 ALT [Catalytic activity/Vol] 14 U/L Normal 0-31 [facility] Comment on above: Performed By: #### C BCA, CMP, 3039-3 #### [facility] ([id number]) [address] [place] [address] 49579 Anion gap [Moles/Vol] 7 mmol/L Normal 5-15 [facility] Comment on above: Performed By: #### C BCA, CMP, 3039-3 #### [facility] ([id number]) [address] [place] [address] [place] [address] AST [Catalytic activity/Vol] 20 U/L Normal 0-41 [facility] Comment on above: Performed By: #### C BCA, CMP, 3039-3 #### [facility] ([id number]) [address] [place] [address] 80667 Bilirubin [Mass/Vol] 0.5 mg/dL Normal 0.3-1.2 [facility] Comment on above: Performed By: #### C BCA, CMP, 3 #### [facility] ([id number]) [address] [place] [address] 06041 Calcium [Mass/Vol] 8.5 mg/dL Normal 8.5-10.5 [facility] Comment on above: Performed By: #### C BCA, CMP, 3039-3 #### [facility] ([id number]) [address] [place] [address] 96240 Chloride [Moles/Vol] 105 mmol/L Normal 98-109 [facility] Comment on above: Performed By: #### C BCA, CMP, 0-3 #### [facility] ([id number]) [address] [place] [address] 05010 CO2 [Moles/Vol] 22 mmol/L Normal 22-32 [facility] Comment on above: Performed By: #### C BCA, CMP, 0-3 #### [facility] ([id number]) [address] [place] [address] Creatinine [Mass/Vol] 0.64 mg/dL Normal 0.40-1.00 [facility] Comment on above: Result Comment: METH OD TRACEABLE TO IDMS STANDARD Performed By: #### C TANNER HARDY, 3040-3 #### [facility] ([id number]) [address] [place] [address] 82264 eGFR (CKD-EPI) NON-RACE DEPENDENT >90 Normal >59 [facility] Comment on above: Result Comment: Reported eGFR is based on the CKD-EPI 2020 equation that does not use a race coefficient. Performed By: #### C TANNER HARDY, 3039-3 #### [facility] ([id number]) [address] [place] [address] 45348 Glucose [Mass/Vol] 123 mg/dL High 65-99 [facility] Comment on above: Performed By: #### C HAYLEY [facility], 3 #### [facility] ([id number]) [address] [place] [address] 20525 Potassium [Moles/Vol] 3.8 mmol/L Normal 3.5-5.0 [facility] Comment on above: Performed By: #### C HAYLEY [facility], 0-3 #### [facility] ([id number]) [address] [place] [address] 39832 Protein [Mass/Vol] 7.3 g/dL Normal 6.0-8.0 [facility] Comment on above: Performed By: #### C HAYLEY [facility], 0-3 #### [facility] ([id number]) [address] [place] [address] 33599 Sodium [Moles/Vol] 134 mmol/L Normal 134-146 [facility] Comment on above: Performed By: #### Renee HARDY CMP, 0-3 #### [facility] ([id number]) [address] [place] [address] [place] [address] Urea nitrogen [Mass/Vol] 18 mg/dL Normal 5-27 [facility] Comment on above: Performed By: #### C HAYLEY, [facility], 3040-3 #### [facility] ([id number]) [address] [place] [address] LIPASEon 2023 Lipase [Catalytic activity/Vol] 26 U/L Normal 17-40 [facility] Comment on above: Performed By: #### C HAYLEY, [facility], 3040-3 #### [facility] ([id number]) [address] [place] [address] SARS/FLU A+B/RSV by NAAT/Mol ecularon 2023 SARS/FLU [...] operators who are performing tests using either [employer] or [employer] systems and is limited to laboratories that [...] repeat. Fact Sheet for Healthcare Providers: https://www.fda.gov/m edia/778732/download Fact Sheet for Patients: https://www.fda.gov/m edia/520306/download Normal [facility] Comment on above: Performed By: #### C OVFLR #### [facility] ([id number]) [address] [place] [address] 27903 URN MACROSCOPIC NURon 2023 BILIRUBIN STUART Negative Normal NEG [facility] Comment on above: Performed By: #### N UM #### [facility] ([id number]) [address] [place] [address] 02658 BLOOD/HGB STUART Small Abnormal [facility] Comment on above: Performed By: #### N UM #### [facility] ([id number]) [address] [place] [address] 58345 GLUCOSE STUART Negative Normal NEG [facility] Comment on above: Performed By: #### N UM #### [facility] ([id number]) [address] [place] [address] [place] [address] KETONES STUART Trace Abnormal NEG [facility] Comment on above: Performed By: #### N UM #### [facility] ([id number]) [address] [place] [address] 64266 LEUKOCYTE ESTERASE STUART Trace Abnormal [facility] Comment on above: Performed By: #### N UM #### [facility] ([id number]) [address] [place] [address] 73779 NITRITE STUART Negative Normal NEG [facility] Comment on above: Performed By: #### N UM #### [facility] ([id number]) [address] [place] [address] 82313 PH STUART 5.5 Normal 5.0-8.5 [facility] Comment on above: Performed By: #### N UM #### [facility] ([id number]) [address] [place] [address] 45705 PROTEIN STUART Negative Normal NEG [facility] Comment on above: Performed By: #### N UM #### [facility] ([id number]) [address] [place] [address] 61925 SPECIFIC GRAVITY STUART 1.015 Normal 1.003-1.035 [facility] Comment on above: Performed By: #### N UM #### [facility] ([id number]) [address] [place] [address] 71604 UROBILINOGEN STUART 0.2 eu/dL Normal <1.1 [facility] Comment on above: Performed By: #### N UM #### [facility] ([id number]) [address] [place] [address] 74223 $ Arthrocentesison 4 Sangeetha Quick DO 07/25/2023 [...] signs reviewed and stable MANUALLY TRANSCRIBED [facility]ULTS [facility]R KNEE LT 3 VWSon XR KNEE [...] Alejandro MD on 06/27/2023 1:51 PM Normal [facility] COMPREHENSIVE METABOLIC PANE [facility] 05-30-2023 Albumin [Mass/Vol] 4.3 g/dL Normal 3.2-5.3 [facility] Comment on above: Performed By: #### C KIMBERLY, 96399-5, THYR #### [facility] ([id number]) [address], [address] [place] [address] ALP [Catalytic activity/Vol] 63 U/L Normal 39-130 [facility] Comment on above: Performed By: #### C KIMBERLY, 83779-2, THYR #### [facility] ([id number]) [address] [facility], [address] [place] [address] ALT [Catalytic activity/Vol] 15 U/L Normal 0-31 [facility] Comment on above: Performed By: #### C KIMBERLY, 42275-0, THYR #### [facility] ([id number]) [address], [address] [place] [address] Anion gap [Moles/Vol] 6 mmol/L Normal 5-15 [facility] Comment on above: Performed By: #### C KIMBERLY, 15029-8, THYR #### [facility] ([id number]) [address], [address] [place] [address] AST [Catalytic activity/Vol] 15 U/L Normal 0-41 [facility] Comment on above: Performed By: #### C KIMBERLY, 21272-4, THYR #### [facility] ([id number]) [address], [address] [place] [address] Bilirubin [Mass/Vol] 0.3 mg/dL Normal 0.3-1.2 [facility] Comment on above: Performed By: #### C KIMBERLY, 49059-9, THYR #### [facility] ([id number]) [address], [address] [place] [address] Calcium [Mass/Vol] 9.1 mg/dL Normal 8.5-10.5 [facility] Comment on above: Performed By: #### C KIMBERLY, 60999-9, THYR #### [facility] ([id number]) [address], [address] [place] [address] Chloride [Moles/Vol] 105 mmol/L Normal 98-109 [facility] Comment on above: Performed By: #### C KIMBERLY, 29141-9, THYR #### [facility] ([id number]) [address], [address] [place] [address] CO2 [Moles/Vol] 31 mmol/L Normal 22-32 [facility] Comment on above: Performed By: #### C KIMBERLY, 66955-7, THYR #### [facility] ([id number]) [address], [address] [place] [address] Creatinine [Mass/Vol] 0.65 mg/dL Normal 0.40-1.00 [facility] Comment on above: Result Comment: METH OD TRACEABLE TO IDMS STANDARD Performed By: #### C KIMBERLY 22047-8, THYR #### [facility] ([id number]) [address], [address] [place] [address] eGFR (CKD-EPI) NON-RACE DEPENDENT >90 Normal >59 [facility] Comment on above: Result Comment: Reported eGFR is based on the CKD-EPI 2020 equation that does not use a race coefficient. Performed By: #### Divya Duran MP31-1, THYR #### [facility] ([id number]) [address], [address] [place] [address] Glucose [Mass/Vol] 101 mg/dL High 65-99 [facility] Comment on above: Performed By: #### Divya Duran MP31-1, THYR #### [facility] ([id number]) [address], [address] [place] [address] Potassium [Moles/Vol] 4.4 mmol/L Normal 3.5-5.0 [facility] Comment on above: Performed By: #### Renee HARRIS 74800-9, THYR #### [facility] ([id number]) [address], [address] [place] [address] Protein [Mass/Vol] 6.9 g/dL Normal 6.0-8.0 [facility] Comment on above: Performed By: #### Divya Duran MP31-1, THYR #### [facility] ([id number]) [address], [address] [place] [address] Sodium [Moles/Vol] 142 mmol/L Normal 134-146 [facility] Comment on above: Performed By: #### Renee HARRIS 59090-5, THYR #### [facility] ([id number]) [address], [address] [place] [address] Urea nitrogen [Mass/Vol] 18 mg/dL Normal 5-27 [facility] Comment on above: Performed By: #### C MP, 90175-8, THYR #### [facility] ([id number]) [address], [address] [place] [address] Comprehensive metabolic pane ulices 05-30-2023 Albumin [Mass/Vol] 4.3 g/dL 3.2 - 5.3 g/dL [facility] ALP [Catalytic activity/Vol] 63 U/L 39 - 130 U/L [facility] ALT No additional P-5'-P [Catalytic activity/Vol] 15 U/L 0 - 31 U/L [facility] Anion gap [Moles/Vol] 6 mmol/L 5 - 15 mmol/L [facility] AST [Catalytic activity/Vol] 15 U/L 0 - 41 U/L [facility] Bilirubin [Mass/Vol] 0.3 mg/dL 0.3 - 1 .2 mg/dL [facility] Calcium [Mass/Vol] 9.1 mg/dL 8.5 - 10. 5 mg/dL [facility] Chloride [Moles/Vol] 105 mmol/L 98 - 10 9 mmol/L [facility] CO2 [Moles/Vol] 31 mmol/L 22 - 32 mmol/L [facility] Creatinine [Mass/Vol] 0.65 mg/dL 0.40 - 1.00 mg/dL [facility] Comment on above: METHOD TRACEABLE TO IDMS STANDARD eGFR (CKD-EPI)non-race dependent - PINF [facility] Comment on above: Reported eGFR is based on the CKD-EPI 2020 equation that does not use a race coefficient. Glucose [Mass/Vol] 101 mg/dL High 65 - 99 mg/dL [facility] Potassium [Moles/Vol] 4.4 mmol/L 3.5 - 5.0 mmol/L [facility] Protein [Mass/Vol] 6.9 g/dL 6.0 - 8.0 g/dL [facility] Sodium [Moles/Vol] 142 mmol/L 134 - 146 mmol/L [facility] Urea nitrogen [Mass/Vol] 18 mg/dL 5 - 27 mg/dL [facility] Lipid 1996 panelon 4 Cholesterol [Mass/Vol] 140 mg/dL Low 150 - 200 mg/dL [facility] Cholesterol in HDL [Mass/Vol] 55 mg/dL 39 - PINF mg/dL [facility] Comment on above: HDL <40 mg/dL - High Risk HDL > or = 40mg/dL- Desirable HDL >60 mg/dL - Negative Risk Cholesterol in LDL [Mass/Vol] 69 mg/dL NINF - 130 mg/dL [facility] Comment on above: LDL <100 mg/dL - Desirable LDL >160 mg/dL - High Risk Cholesterol in VLDL [Mass/Vol] 16 mg/dL 0 - 30 mg/dL [facility] Cholesterol.total/Cho lesterol in HDL [Mass ratio] 2.5 {ratio} 1.0 - 5.0 [facility] Triglyceride [Mass/Vol] 82 mg/dL 27 - 150 mg/dL [facility] Cholesterol [Mass/Vol] 140 mg/dL Low 150-200 [facility] Comment on above: Performed By: #### C , 44986-3, THYR #### [facility] ([id number]) [address], [address] [place] [address] Cholesterol in HDL [Mass/Vol] 55 mg/dL Normal >39 [facility] Comment on above: Result Comment: HDL <40 mg/dL - High Risk HDL > or = 40mg/dL- Desirable HDL >60 mg/dL - Negative Risk Performed By: #### Renee HARRIS, 32204-1, THYR #### [facility] ([id number]) [address], [facility] [address] [place] [address] Cholesterol in LDL [Mass/Vol] 69 mg/dL Normal <130 [facility] Comment on above: Result Comment: LDL <100 mg/dL - Desirable LDL >160 mg/dL - High Risk Performed By: #### Renee HARRIS, 94504-2, THYR #### [facility] ([id number]) [address], [address] [place] [address] Cholesterol in VLDL [Mass/Vol] 16 mg/dL Normal 0-30 [facility] Comment on above: Performed By: #### Renee HARRIS, 30574-4, THYR #### [facility] ([id number]) [address], [facility] [address] [place] [address] CHOLESTEROL:HDL 2.5 Normal 1.0-5.0 [facility] Comment on above: Performed By: #### Renee HARRIS, 90629-3, THYR #### [facility] ([id number]) [address], [facility] [address] [place] [address] Triglyceride [Mass/Vol] 82 mg/dL Normal 27-150 [facility] Comment on above: Performed By: #### Renee HARRIS, 94928-5, THYR #### [facility] ([id number]) [address], [address] [address] No Panel Informationon 05-30 Interpretation and review of laboratory results Abnormal [facility] THYROID PROFILEon 05-30-2023 Free T4 [Mass/Vol] 0.92 ng/dL Normal 0.61-1.60 [facility] Comment on above: Performed By: #### C , 52532-3, THYR #### [facility] ([id number]) [address], [address] [place] [address] TSH 0.95 uIU/mL Normal 0.49-4.67 [facility] Comment on above: Performed By: #### C , 27482-7, THYR #### [facility] ([id number]) [address], [address] [place] [address] Thyroid profile includes TSH FT4on 05-30-2023 Free T4 [Mass/Vol] 0.92 ng/dL 0.61 - 1. 60 ng/dL [facility] TSH Qn 0.95 m[IU]/L [facility] MRI SHOULDER LT WO CONon MRI [...] of articular cartilage. Electronically authenticated by: RONALDO JORGENSEN Date: 2022-05-18 09:45 Normal [facility] METABOLIC PANE [facility] 08-29-2021 Albumin [Mass/Vol] 4.0 g/dL Normal 3.6-5.1 [facility] Comment on above: Performed By: #### 7 600, 927, 73580 #### [facility] [place] [address] [employer] Administrator: Finn Akins MD Albumin/Globulin [Mass ratio] 1.9 {ratio} Normal 1.0-2.5 [facility] Comment on above: Performed By: #### 7 600, 927, 78558 #### [facility] [place] [address] [employer] Administrator: Finn Akins MD ALP [Catalytic activity/Vol] 56 U/L Normal 37-153 [facility] Comment on above: Performed By: #### 7 600, 927, 01244 #### [facility] [place] [address] [employer] Administrator: Finn Akins MD ALT [Catalytic activity/Vol] 18 U/L Normal 6-29 [facility] Comment on above: Performed By: #### 7 600, 927, 57414 #### [facility] [place] [address] [employer] Administrator: Finn Akins MD AST [Catalytic activity/Vol] 18 U/L Normal 10-35 [facility] Comment on above: Performed By: #### 7 600, 927, 51642 #### [facility] [place] [address] [employer] Administrator: Finn Akins MD Bilirubin [Mass/Vol] 0.4 mg/dL Normal 0.2-1.2 [facility] Comment on above: Performed By: #### 7 600, 927, 94257 #### [facility] [place] [address] [employer] Administrator: Finn Akins MD BUN/CREATININE RATIO NOT APPLICABLE Normal 6-22 [facility] Comment on above: Performed By: #### 7 600, 927, 46083 #### [facility] [place] [address] [employer] Administrator: Finn Akins MD Calcium [Mass/Vol] 8.8 mg/dL Normal 8.6-10.4 [facility] Comment on above: Performed By: #### 7 600, 927, 80763 #### [facility] [place] [address] [employer] Administrator: Finn Akins MD Chloride [Moles/Vol] 106 mmol/L Normal 98-110 [facility] Comment on above: Performed By: #### 7 600, 927, 65640 #### [facility] [place] [address] [employer] Administrator: Finn Akins MD CO2 [Moles/Vol] 30 mmol/L Normal 20-32 [facility] Comment on above: Performed By: #### 7 600, 927, 57674 #### [facility] [place] [address] [employer] Administrator: Finn Akins MD Creatinine [Mass/Vol] 0.67 mg/dL Normal 0.60-0.93 [facility] Comment on above: Result Comment: For patients >49 years of age, the reference limit for Creatinine is approximately 13% higher for people identified as -Citizen Of [place]. Performed By: #### 7 600, 927, 07943 #### [facility] [place] [address] [employer] Administrator: Finn Akins MD eGFR NON-AFR. TONGAN 87 mL/min/1.73m2 Normal > OR = 60 [facility] Comment on above: Performed By: #### 7 600, 927, 80858 #### [facility] [place] [address] [employer] Administrator: Finn Akins MD GFR/1.73 sq M.predicted among blacks MDRD (S/P/Bld) [Vol rate/Area] 101 mL/min/{1.73_m2} Normal > OR = 60 [facility] Comment on above: Performed By: #### 7 600, 927, 07188 #### [facility] [place] [address] [employer] Administrator: Finn Akins MD Globulin (S) [Mass/Vol] 2.1 g/dL Normal 1.9-3.7 [facility] Comment on above: Performed By: #### 7 600, 927, 26680 #### [facility] [place] [address] [employer] Administrator: Finn Akins MD Glucose [Mass/Vol] 96 mg/dL Normal 65-99 [facility] Comment on above: Result Comment: Fasting reference interval Performed By: #### 7 600, 927, 19446 #### [facility] [place] [address] [employer] Administrator: Finn Akins MD Potassium [Moles/Vol] 3.9 mmol/L Normal 3.5-5.3 [facility] Comment on above: Performed By: #### 7 600, 927, 78610 #### [facility] [place] [address] [employer] Administrator: Finn Akins MD Protein [Mass/Vol] 6.1 g/dL Normal 6.1-8.1 [facility] Comment on above: Performed By: #### 7 600, 927, 01395 #### [facility] [place] [address] [employer] Administrator: Finn Akins MD Sodium [Moles/Vol] 143 mmol/L Normal 135-146 [facility] Comment on above: Performed By: #### 7 600, 927, 86522 #### [facility] [address], [address] [place] [address] [employer] Administrator: Finn Akins MD Urea nitrogen [Mass/Vol] 17 mg/dL Normal 7- [facility] Comment on above: Performed By: #### 7 600, 927, [id number] #### [facility] [address], [address] [place] [address] [employer] Administrator: Finn Akins MD LIPID PANEL, [facility] 05- Cholesterol [Mass/Vol] 126 mg/dL Normal <200 [facility] Comment on above: Order Comment: FASTI NG:YES FASTING: YES Performed By: #### 7 600, 927, [id number] #### [facility] [address], [address] [place] [address] [employer] Administrator: Finn Akins MD Cholesterol in HDL [Mass/Vol] 46 mg/dL Low > OR = 50 [facility] Comment on above: Order Comment: FASTI NG:YES FASTING: YES Performed By: #### 7 600, 927, 16164 #### [facility] [address], [address] [place] [address] [employer] Administrator: Finn Akins MD Cholesterol in LDL [Mass/Vol] [...] LDL-C. Aguilar SS et al. MCKAY. 2013;310(19): 5272-2331 (http://education.[employer]/faq/CML902) Performed By: #### 7 600, 927, 58534 #### [facility] [address], [address] [place] [address] [employer] Administrator: Finn Akins MD Cholesterol.total/Cho lesterol in HDL [Mass ratio] 2.7 {ratio} Normal <5.0 [facility] Comment on above: Order Comment: FASTI NG:YES FASTING: YES Performed By: #### 7 600, 927, 76402 #### [facility] [place] [address] [employer] Administrator: Finn Akins MD NON HDL CHOLESTEROL 80 mg/dL (calc) Normal <130 [facility] Comment on above: Order Comment: FASTI NG:YES FASTING: YES Result Comment: For patients with diabetes plus 1 major ASCVD risk factor, treating to a non-HDL-C goal of <100 mg/dL (LDL-C of <70 mg/dL) is considered a therapeutic option. Performed By: #### 7 600, 927, 80284 #### [facility] [place] [address] [employer] Administrator: Finn Akins MD Triglyceride [Mass/Vol] 86 mg/dL Normal <150 [facility] Comment on above: Order Comment: FASTI NG:YES FASTING: YES Performed By: #### 7 600, 927, 80694 #### [facility] [place] [address] [employer] Administrator: Finn Akins MD VITAMIN B12on 08-29-2021 Cobalamin (Vitamin B12) [Mass/Vol] 184 pg/mL Low 200-1100 [facility] Comment on above: Performed By: #### 7 600, 927, 82175 #### [facility] [place] [address] [employer] Administrator: Finn Akins MD BASIC METABOLIC PANELon Calcium [Mass/Vol] 9.2 mg/dL Normal 8.6-10.4 [facility] Comment on above: Performed By: #### 9 38, 54962, 63390 #### [facility] [place] [address] [employer] Administrator: Finn Akins MD Chloride [Moles/Vol] 102 mmol/L Normal 98-110 [facility] Comment on above: Performed By: #### 9 , 72449, 91977 #### [facility] [address], [address] [place] [address] [employer] Administrator: Finn Akins MD CO2 [Moles/Vol] 28 mmol/L Normal 20-32 [facility] Comment on above: Performed By: #### 9 , 35753, 34140 #### [facility] [address], [address] [place] [address] [employer] Administrator: Finn Akins MD Creatinine [Mass/Vol] 0.56 mg/dL Low 0.60-0.[address] [facility] Comment on above: Result Comment: For patients >49 years of age, the reference limit for Creatinine is approximately 13% higher for people identified as -Citizen Of [place]. Performed By: #### 01 09, 21839, 02541 #### [facility] [address], [address] [place] [address] [employer] Administrator: Finn Akins MD eGFR NON-AFR. TONGAN 93 mL/min/1.73m2 Normal > OR = 60 [facility] Comment on above: Performed By: #### 9 , 27057, 94671 #### [facility] [place] [address] [employer] Administrator: Finn Akins MD GFR/1.73 sq M.predicted among blacks MDRD (S/P/Bld) [Vol rate/Area] 107 mL/min/{1.73_m2} Normal > OR = 60 [facility] Comment on above: Performed By: #### 9 27, 07987, 46064 #### [facility] [address], [address] [place] [address] [employer] Administrator: Finn Akins MD Glucose [Mass/Vol] 97 mg/dL Normal 65-99 [facility] Comment on above: Result Comment: Fasting reference interval Performed By: #### 9 , 64129, 98362 #### [facility] [address], [address] [place] [address] [employer] Administrator: Finn Akins MD Potassium [Moles/Vol] 3.8 mmol/L Normal 3.5-5.3 [facility] Comment on above: Performed By: #### 9 27, 52665, 64467 #### [facility] of [address], [address] [place] [address] [employer] Administrator: Finn Akins MD Sodium [Moles/Vol] 140 mmol/L Normal 135-146 [facility] Comment on above: Performed By: #### 9 , 32687, 76082 #### [facility] of [address], [address] [place] [address] [employer] Administrator: Finn Akins MD Urea nitrogen [Mass/Vol] 14 mg/dL Normal 7-25 [facility] Comment on above: Performed By: #### 9 , 39459, 54498 #### [facility] of [address], [address] [place] [address] [employer] Administrator: Finn Akins MD Urea nitrogen/Creatinine [Mass ratio] 25 mg/mg High 6-22 [facility] Comment on above: Performed By: #### 9 , 73713, 68607 #### [facility] of [place] [address] [employer] Administrator: Finn Akins MD TSH+FREE T4on 04-19-2021 Free T4 [Mass/Vol] 1.2 ng/dL Normal 0.8-1.8 [facility] Comment on above: Performed By: #### 9 , 76517, 46833 #### [facility] of [address], [address] [place] [address] [employer] Administrator: Finn Akins MD TSH Qn 0.55 m[IU]/L Normal 0.40-4.50 [facility] Comment on above: Performed By: #### 9 , 70116, 27114 #### [facility] of [address], [address] [place] [address] [employer] Administrator: Finn Akins MD VITAMIN B12on 04-19-2021 Cobalamin (Vitamin B12) [Mass/Vol] 133 pg/mL Low 200-1100 [facility] Comment on above: Performed By: #### 9 66, 61628, 66507 #### [facility] [address] [facility], [address] [place] [address] [employer] Administrator: Finn Akins MD Vital Signs Date Time Vital Sign Value Performing Clinician Facility 05-19-2024 14:32-0500 Body height 149.9 cm Sangeetha Quick DO Work Phone: [facility] 05-19-2024 14:32-0500 Body mass index (BMI) [Ratio] 30.13 kg/m2 Sangeetha Quick DO Work Phone: [facility] 05-19-2024 14:32-0500 Body temperature 98.49 [degF] Sangeetha Quick DO Work Phone: [facility] 05-19-2024 14:32-0500 Body weight 67.68 kg Sangeetha Quick DO Work Phone: [facility] 05-19-2024 14:32-0500 Diastolic blood pressure 78 mm[Hg] Sangeetha Quick DO Work Phone: [facility] 05-19-2024 14:32-0500 Heart rate 79 /min Sangeetha Quick DO Work Phone: [facility] 05-19-2024 14:32-0500 SaO2% (BldA) [Mass fraction] 97 % Sangeetha Quick DO Work Phone: [facility] 05-19-2024 14:32-0500 Systolic blood pressure 110 mm[Hg] Sangeetha Quick DO Work Phone: [facility] 02-27-2024 13:55-0500 Body height 149.9 cm Sangeetha Quick DO Work Phone: [facility] 02-27-2024 13:55-0500 Body mass index (BMI) [Ratio] 29.49 kg/m2 Sangeetha Quick DO Work Phone: [facility] 02-27-2024 13:55-0500 Body weight 66.22 kg Sangeetha Quick DO Work Phone: [facility] 02-27-2024 13:55-0500 Diastolic blood pressure 56 mm[Hg] Sangeetha Quick DO Work Phone: [facility] 02-27-2024 13:55-0500 Systolic blood pressure 107 mm[Hg] Sangeetha Quick DO Work Phone: [facility] 02-06-2024 14:17-0400 Body height 149.9 cm Pfo 4 [facility] 02-06-2024 14:17-0400 Body mass index (BMI) [Ratio] 29.63 kg/m2 Pfo 4 [facility] 02-06-2024 14:17-0400 Body temperature 98.2 [degF] Pfo 4 [facility] 02-06-2024 14:17-0400 Body weight 66.59 kg Pfo 4 [facility] 02-06-2024 14:17-0400 Diastolic blood pressure 56 mm[Hg] Pfo 4 [facility] 02-06-2024 14:17-0400 Heart rate 79 /min Pfo 4 [facility] 02-06-2024 14:17-0400 Respiratory rate 16 /min Pfo 4 [facility] 02-06-2024 14:17-0400 SaO2% (BldA) [Mass fraction] 99 % Pfo 4 [facility] 02-06-2024 14:17-0400 Systolic blood pressure 107 mm[Hg] Pfo 4 [facility] 01-20-2024 11:57-0400 Body height 149.9 cm Sangeetha Quick DO Work Phone: [facility] 01-20-2024 11:57-0400 Body mass index (BMI) [Ratio] 28.92 kg/m2 Sangeetha Quick DO Work Phone: [facility] 01-20-2024 11:57-0400 Body temperature 97.3 [degF] Sangeetha Quick DO Work Phone: [facility] 01-20-2024 11:57-0400 Body weight 64.95 kg Sangeetha Quick DO Work Phone: [facility] 01-20-2024 11:57-0400 Diastolic blood pressure 80 mm[Hg] Sangeetha Quick DO Work Phone: [facility] 01-20-2024 11:57-0400 Heart rate 65 /min Sangeetha Quick DO Work Phone: [facility] 01-20-2024 11:57-0400 Respiratory rate 18 /min Sangeetha Quick DO Work Phone: [facility] 01-20-2024 11:57-0400 SaO2% (BldA) [Mass fraction] 100 % Sangeetha Quick DO Work Phone: [facility] 01-20-2024 11:57-0400 Systolic blood pressure 150 mm[Hg] Sangeetha Quick DO Work Phone: [facility] 12-24-2023 12:43-0400 Body height 149.9 cm Sangeetha Quick DO Work Phone: [facility] 12-24-2023 12:43-0400 Body mass index (BMI) [Ratio] 27.91 kg/m2 Sangeetha Quick DO Work Phone: [facility] 12-24-2023 12:43-0400 Body temperature 98.6 [degF] Sangeetha Quick DO Work Phone: [facility] 12-24-2023 12:43-0400 Body weight 62.69 kg Sangeetha Quick DO Work Phone: [facility] 12-24-2023 12:43-0400 Diastolic blood pressure 70 mm[Hg] Sangeetha Quick DO Work Phone: [facility] 12-24-2023 12:43-0400 Heart rate 83 /min Sangeetha Dunbars DO Work Phone: [facility] 12-24-2023 12:43-0400 SaO2% (BldA) [Mass fraction] 99 % Sangeetha Dunbars DO Work Phone: [facility] 12-24-2023 12:43-0400 Systolic blood pressure 120 mm[Hg] Sangeetha Dunbars DO Work Phone: [facility] 07-25-2023 10:52-0400 Body height 149.9 cm Sangeetha Jiménezhas DO Work Phone: [facility] 07-25-2023 10:52-0400 Body mass index (BMI) [Ratio] 30.98 kg/m2 Sangeetha Dunbars DO Work Phone: [facility] 07-25-2023 10:52-0400 Body temperature 99 [degF] Sangeetha Dunbars DO Work Phone: [facility] 07-25-2023 10:52-0400 Body weight 69.58 kg Sangeetha Dunbars DO Work Phone: [facility] 07-25-2023 10:52-0400 Diastolic blood pressure 72 mm[Hg] Sangeetha Dunbars DO Work Phone: [facility] 07-25-2023 10:52-0400 Heart rate 68 /min Sangeetha Dunbars DO Work Phone: [facility] 07-25-2023 10:52-0400 SaO2% (BldA) [Mass fraction] 98 % Sangeetha Dunbars DO Work Phone: [facility] 07-25-2023 10:52-0400 Systolic blood pressure 118 mm[Hg] Sangeetha Jiménezhas DO Work Phone: [facility] 07-01-2023 15:40-0400 Body height 149.9 cm Sangeetha Dunbars DO Work Phone: [facility] 07-01-2023 15:40-0400 Body mass index (BMI) [Ratio] 31.1 kg/m2 Sangeetha Dunbars DO Work Phone: [facility] 07-01-2023 15:40-0400 Body temperature 98.2 [degF] Sangeetha Jiménezhas DO Work Phone: [facility] 07-01-2023 15:40-0400 Body weight 69.85 kg Sangeetha Dunbars DO Work Phone: [facility] 07-01-2023 15:40-0400 Diastolic blood pressure 70 mm[Hg] Sangeetha Dunbars DO Work Phone: [facility] 07-01-2023 15:40-0400 Heart rate 87 /min Sangeetha Dunbars DO Work Phone: [facility] 07-01-2023 15:40-0400 SaO2% (BldA) [Mass fraction] 99 % Sangeetha Dunbars DO Work Phone: [facility] 07-01-2023 15:40-0400 Systolic blood pressure 136 mm[Hg] Sangeetha Dunbars DO Work Phone: [facility] 06-25-2023 11:23-0400 Body height 149.9 cm Sangeetha Dunbars DO Work Phone: [facility] 06-25-2023 11:23-0400 Body mass index (BMI) [Ratio] 31.06 kg/m2 Sangeetha Jiménezhas DO Work Phone: [facility] 06-25-2023 11:23-0400 Body temperature 98.29 [degF] Sangeetha Jiménezhas DO Work Phone: [facility] 06-25-2023 11:23-0400 Body weight 69.76 kg Sangeetha Dunbars DO Work Phone: [facility] 06-25-2023 11:23-0400 Diastolic blood pressure 70 mm[Hg] S[facility] Quick DO [facility] 06-25-2023 11:23-0400 Heart rate 73 /min Sangeetha Quick DO Work Phone: [facility] 06-25-2023 11:23-0400 SaO2% (BldA) [Mass fraction] 97 % Sangeetha Quick DO Work Phone: [facility] 06-25-2023 11:23-0400 Systolic blood pressure 120 mm[Hg] Sangeetha Quick DO Work Phone: [facility] 05-30-2023 10:29-0500 Body height 149.9 cm Sangeetha Quick DO Work Phone: [facility] 05-30-2023 10:29-0500 Body mass index (BMI) [Ratio] 30.7 kg/m2 Sangeetha Quick DO Work Phone: [facility] 05-30-2023 10:29-0500 Body temperature 98.1 [degF] Sangeetha Quick DO Work Phone: [facility] 05-30-2023 10:29-0500 Body weight 68.95 kg Sangeetha Quick DO Work Phone: [facility] 05-30-2023 10:29-0500 Diastolic blood pressure 70 mm[Hg] Sangeetha Quick DO Work Phone: [facility] 05-30-2023 10:29-0500 Heart rate 71 /min Sangeetha Quick DO Work Phone: [facility] 05-30-2023 10:29-0500 SaO2% (BldA) [Mass fraction] 96 % Sangeetha Quick DO Work Phone: [facility] 05-30-2023 10:29-0500 Systolic blood pressure 120 mm[Hg] Sangeetha Quick DO Work Phone: [facility] Encounters Encounter Date Encounter Type Care Provider Facility Start: 06-09-2024 End: 06-09-2024 Refill Sangeetha Quick DO Work Phone: [facility] Comment on above: Hyperlipidemia, unsp ecified Start: 05-22-2024 End: 05-22-2024 [facility] Start: 05-19-2024 End: 05-19-2024 ambulatory [facility] Start: 05-19-2024 End: 05-19-2024 Office outpatient visit 25 minutes Sangeetha Quick DO Work Phone: [facility] Comment on above: Hypothyroidism, unsp ecified type (Primary Dx); Right foot pain; Vitamin D deficiency; Cobalamin deficiency; Lichen planus atrophicus Start: 05-19-2024 End: 05-19-2024 [facility] Start: 02-27-2024 End: 02-27-2024 [facility] Start: 02-27-2024 End: 02-27-2024 Patient encounter procedure Sangeetha Quick DO Work Phone: [facility] Comment on above: Encounter for subseq uent annual wellness visit (AWV) in Medicare patient (Primary Dx) Start: 02-25-2024 End: 02-25-2024 Refill Sangeetha Quick DO Work Phone: [facility] Comment on above: Hypothyroidism; Deficiency of other specified B group vitamins; Vitamin D deficiency, unspecified; Hordeolum externum of right upper eyelid Start: 02-06-2024 End: 02-06-2024 [facility] Comment on above: Age-related osteopor osis without current pathological fracture (Primary Dx) Start: 02-05-2024 End: 02-05-2024 [facility] Start: 02-03-2024 End: 02-03-2024 Telephone encounter Fatoumata Chacko [facility] Start: 01-22-2024 End: 01-22-2024 Telephone encounter Sangeetha Quick DO Work Phone: [facility] Start: 01-20-2024 End: 01-20-2024 Bamboo flowsheet Jr. Angella Mckeon DO Work Phone: [facility] Start: 01-20-2024 End: 01-20-2024 Bamboo flowsheet Jr. Angella Mckeon DO Work Phone: [facility] Start: 01-20-2024 End: 01-20-2024 ambulatory [facility] Start: 01-20-2024 End: 01-20-2024 Office outpatient visit 25 minutes Jr. Angella Mckeon DO Work Phone: [facility] Comment on above: Primary osteoarthrit is of left knee (Primary Dx) Hordeolum externum o f right upper eyelid (Primary Dx); Blepharitis of right upper eyelid, unspecified type; Age-related osteoporosis without current pathological fracture; Encounter for immunization Start: 01-20-2024 End: 01-20-2024 ambulatory ANGELLA PASTRANA Not Available Start: 01-07-2024 End: 01-07-2024 Bamboo flowsheet Kathryn Cagle NP Work Phone: [facility] Start: 01-07-2024 End: 01-07-2024 Bamboo flowsheet Kathryn Cagle SHIFT MANAGER Work Phone: [facility] Start: 01-07-2024 End: 01-07-2024 Office outpatient visit 10 minutes Kathryn Cagle SHIFT MANAGER Work Phone: [facility] Comment on above: Primary localized os teoarthritis of left knee (Primary Dx); Left knee pain, unspecified chronicity Start: 01-07-2024 End: 01-07-2024 ambulatory KATHRYN CAGLE Not Available Start: 12-26-2023 End: 12-26-2023 ambulatory [facility] Start: 12-25-2023 End: 12-25-2023 ambulatory [facility] Start: 12-24-2023 End: 12-24-2023 Office outpatient visit 25 minutes Sangeetha Quick DO Work Phone: [facility] Comment on above: Diarrhea, unspecifie d type (Primary Dx); Primary osteoarthritis of knees, bilateral; Vitamin D deficiency; Cobalamin deficiency; Age-related osteoporosis without current pathological fracture; Nausea and vomiting, unspecified vomiting type Start: 12-24-2023 End: 12-24-2023 ambulatory [facility] Start: 12-23-2023 End: 12-24-2023 Telephone encounter Marcia Holder [facility] Comment on above: Er Follow-up Start: 2023 End: 2023 Emergency department patient visit [facility] Start: 12-11-2023 End: 12-12-2023 Telephone encounter Dipika Sagastume [facility] Start: 09-10-2023 End: 09-10-2023 ambulatory KATHRYN CAGLE Not Available Start: 08-21-2023 End: 08-23-2023 Telephone encounter Dipika Sagastume [facility] Start: 07-25-2023 End: 07-25-2023 Office outpatient visit 15 minutes Sangeetha Quick DO Work Phone: [facility] Comment on above: Osteoarthritis of le ft shoulder, unspecified osteoarthritis type (Primary Dx) Start: 07-25-2023 End: 07-25-2023 ambulatory [facility] Start: 07-01-2023 End: 07-01-2023 Office outpatient visit 25 minutes Sangeetha Quick DO Work Phone: [facility] Comment on above: 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, bilateral (Primary Dx); Osteoarthritis of left shoulder, unspecified osteoarthritis type; Immunization due Start: 07-01-2023 End: 07-01-2023 ambulatory [facility] Start: 06-27-2023 End: 06-27-2023 ambulatory [facility] Start: 06-25-2023 End: 06-25-2023 ambulatory [facility] Start: 06-25-2023 End: 06-25-2023 Office outpatient visit 25 minutes Sangeetha Quick DO Work Phone: [facility] Comment on above: Localized osteoarthr itis of left knee (Primary Dx) Start: 05-30-2023 End: 05-30-2023 ambulatory [facility] Start: 05-30-2023 End: 05-30-2023 ambulatory [facility] Start: 05-30-2023 End: 05-30-2023 Office outpatient visit 25 minutes Sangeetha Quick DO Work Phone: [facility] [...] Start: 04-26-2022 End: 04-27-[address] YINKA [place] Facility:[facility] Start: 04-03-2022 End: 04-03-[address] YINKA BARRAZA . Facility: Start: 03-27-2022 End: 03-28-[address] YINKA [...] 05-19-2024 Adult depression scr eening assessment Sangeetha Dunbarelieser DO Work Phone: Start: 02-27-2024 Adult depression scr eening assessment Sangeetha Dunbarelieser DO Work Phone: Start: 01-20-2024 Adult depression scr eening assessment Sangeetha Quick DO Work Phone: Start: 01-07-2024 Radiologic examinati on knee 1/2 views Kathryn Cagle NP Work Phone: Start: 12-24-2023 Follow-up visit Follow-up SANGEETHA Alek ABDELRAHMAN Start: 12-24-2023 Adult depression scr eening assessment Sangeetha Dunbarelieser DO Work Phone: Start: 07-25-2023 Arthrocentesis aspir &/inj major jt/bursa w/o us Sangeetha Jiménezwillielieser DO Work Phone: Start: 07-25-2023 Adult depression scr eening assessment Sangeetha Quick DO Work Phone: Start: 07-01-2023 Adult depression scr eening assessment Sangeetha Quick DO Work Phone: Start: 06-25-2023 Adult depression scr eening assessment Sangeetha Quick DO Work Phone: Start: 05-30-2023 Adult depression scr eening assessment Sangeetha Quick DO Work Phone: Plan of Treatment Date Care Activity Detail Author Start: 05-19-2025 Depression Screening Depression Scre ening [facility] Start: 05-19-2025 Fall Risk Screening Fall Risk Screen ing [facility] Start: 05-19-2025 Tobacco Screening Tobacco Screening [facility] Start: 03-02-2025 End: 03-02-2025 Patient encounter procedure 03/02/2025 2:20 PM EST Office Visit [facility] [address] [place] [address] [facility] Start: 02-26-2025 Depression Screening Depression Scre ening [facility] Start: 02-26-2025 Fall Risk Screening Fall Risk Screen ing [facility] Start: 02-26-2025 Medicare Annual Well ness Visit Medicare Annual Wellness Visit [facility] Start: 01-19-2025 Adult BMI Screening Adult BMI Screen ing [facility] Start: 01-19-2025 Depression Screening Depression Scre ening [facility] Start: 01-19-2025 Fall Risk Screening Fall Risk Screen ing [facility] Start: 01-19-2025 Tobacco Screening Tobacco Screening [facility] Start: 12-23-2024 Adult BMI Screening Adult BMI Screen ing [facility] Start: 12-23-2024 Depression Screening Depression Scre ening [facility] Start: 12-23-2024 Fall Risk Screening Fall Risk Screen ing [facility] Start: 12-23-2024 Tobacco Screening Tobacco Screening [facility] Start: 07-24-2024 Adult BMI Screening Adult BMI Screen ing [facility] Start: 07-24-2024 Depression Screening Depression Scre ening [facility] Start: 07-24-2024 Fall Risk Screening Fall Risk Screen ing [facility] Start: 07-24-2024 Tobacco Screening Tobacco Screening [facility] Start: 06-30-2024 Adult BMI Screening Adult BMI Screen ing [facility] Start: 06-30-2024 Depression Screening Depression Scre ening [facility] Start: 06-30-2024 Fall Risk Screening Fall Risk Screen ing [facility] Start: 06-30-2024 Tobacco Screening Tobacco Screening [facility] Start: 06-24-2024 Adult BMI Screening Adult BMI Screen ing [facility] Start: 06-24-2024 Depression Screening Depression Scre ening [facility] Start: 06-24-2024 Fall Risk Screening Fall Risk Screen ing [facility] Start: 06-24-2024 Tobacco Screening Tobacco Screening [facility] Start: 05-30-2024 Adult BMI Screening Adult BMI Screen ing [facility] Start: 05-30-2024 Depression Screening Depression Scre ening [facility] Start: 05-30-2024 Fall Risk Screening Fall Risk Screen ing [facility] Start: 05-30-2024 Tobacco Screening Tobacco Screening [facility] Start: 05-22-2024 COVID-19 Vaccine ( season) COVID-19 Vaccine () [facility] Start: 05-21-2024 DTaP,Tdap and Td Vaccines (2 - Td or Tdap) DTaP,Tdap and Td Vaccines (2 - Td or Tdap) [facility] Start: 05-19-2024 End: 05-19-2025 XR Foot - right 3 Views X-ray foot right minimum 3 views Imaging Routine Right foot pain Expected: 05/19/2024, Expires: 05/19/2025 [facility] Work Phone: Comment on above: Expected: 05/19/2024 , Expires: 05/19/2025 Start: 03-19-2024 End: 03-19-2024 Patient encounter procedure 03/19/2024 4:15 PM EST Office Visit [facility] Internal Medicine - Family Medicine [address] [place] [address] Sangeetha Quick, [address] [place] [address] [facility] Internal Medicine - Family Medicine Start: 03-16-2024 End: 03-16-2024 Patient encounter procedure 03/16/2024 10:00 AM EST Office Visit [facility] [address] [place] [phone] Kathryn Cagle, SHIFT MANAGER [address] [place], [place] [phone] [facility] Start: 02-27-2024 End: 02-27-2024 Patient encounter procedure 02/27/2024 1:40 PM EST [facility] [address] [place] [address] [facility] Internal Medicine - Family Medicine Start: 01-20-2024 End: 01-20-2024 Patient encounter procedure [facility] Comment on above: Arrived Start: 01-07-2024 End: 01-07-2024 Patient encounter procedure 01/07/2024 10:30 AM EDT Office Visit [facility] [address] [phone] Kathryn Cagle, SALLIE [address], [place] [phone] Arrived [facility] Comment on above: Arrived Start: 12-26-2023 End: 12-26-2023 Patient encounter procedure 12/26/2023 1:45 PM EDT Appointment [facility] - Mammogram DEXA [address] [place] [phone] Sangeetha Quick, DO [address] [place] [address] [facility] - Mammogram DEXA Start: 12-24-2023 End: 12-23-2024 GI Panel(stool pathogen panel) GI Panel(stool pathogen panel) Lab Routine Diarrhea, unspecified type Expected: 12/24/2023, Expires: 12/23/2024 [facility] Work Phone: Comment on above: Expected: 12/24/2023 , Expires: 12/23/2024 Start: 12-24-2023 End: 12-24-2023 Patient encounter procedure 12/24/2023 1:00 PM EDT [facility] [address] [place] [phone] Sangeetha Quick, DO [address] [facility] [place] [address] [facility] Internal Medicine - Family Medicine Start: 12-15-2023 COVID-19 Vaccine ( season) COVID-19 Vaccine () [facility] Start: 12-15-2023 Influenza vaccination N [facility] Start: 12-03-2023 End: 12-03-2023 Patient encounter procedure 12/03/2023 2:00 PM EDT [facility] [address] [place] [address] [facility] Internal Medicine - Family Medicine Start: 11-28-2023 Medicare Annual Well ness Visit Medicare Annual Wellness Visit [facility] Start: 07-14-2023 Influenza vaccination Influenza Vacc ine [facility] Comment on above: Postponed from 12/14 (Vaccine Not Available) Start: 06-25-2023 End: 06-24-2024 XR Knee - left 3 Views X-ray knee left 3 views Imaging Routine Localized osteoarthritis of left knee Expected: 06/25/2023, Expires: 06/24/2024 [facility] Work Phone: Comment on above: Expected: 06/25/2023 , Expires: 06/24/2024 Start: 12-14-2022 COVID-19 Vaccine ( season) COVID-19 Vaccine ( season) [facility] Start: 12-14-2022 Influenza vaccination Influenza Vacc ine [facility] Start: 12-20-1997 Administration of varicella zoster vaccine Zoster (Shingles) Vaccine (1 of 2) [facility] Start: 12-20-1965 Adult BMI Follow Up Plan Adult BMI Follow Up Plan [facility] End: 12-23-2024 Basic metabolic 2000 panel - Serum or Plasma Basic Metabolic Panel Lab Routine Diarrhea, unspecified type 1 Occurrences starting 12/24/2023 until 12/23/2024 [facility] Comment on above: 1 Occurrences starti ng 12/24/2023 until 12/23/2024 End: 05-19-2025 CBC W Auto Differential panel - Blood CBC auto differential Lab Routine Hypothyroidism, unspecified type 1 Occurrences starting 05/19/2024 until 05/19/2025 [facility] Comment on above: 1 Occurrences starti ng 05/19/2024 until 05/19/2025 End: 05-19-2025 Comprehensive metabolic 2000 panel - Serum or Plasma Comprehensive metabolic panel Lab Routine Hypothyroidism, unspecified type 1 Occurrences starting 05/19/2024 until 05/19/2025 [facility] Comment on above: 1 Occurrences starti ng 05/19/2024 until 05/19/2025 End: 05-19-2025 Cyanocobalamin vitamin b-12 Vitamin B12 Lab Routine Cobalamin deficiency 1 Occurrences starting 05/19/2024 until 05/19/2025 [facility] Comment on above: 1 Occurrences starti ng 05/19/2024 until 05/19/2025 End: 12-23-2024 Cyanocobalamin vitamin b-12 Vitamin B12 Lab Routine Cobalamin deficiency 1 Occurrences starting 12/24/2023 until 12/23/2024 [facility] Comment on above: 1 Occurrences starti ng 12/24/2023 until 12/23/2024 End: 05-19-2025 Thyroid profile includes TSH FT4 Thyroid profile includes TSH FT4 Lab Routine Hypothyroidism, unspecified type 1 Occurrences starting 05/19/2024 until 05/19/2025 [facility] Comment on above: 1 Occurrences starti ng 05/19/2024 until 05/19/2025 End: 05-19-2025 Vitamin D 25 hydroxy Vitamin D 25 hydroxy Lab Routine Vitamin D deficiency 1 Occurrences starting 05/19/2024 until 05/19/2025 [facility] Comment on above: 1 Occurrences starti ng 05/19/2024 until 05/19/2025 Immunizations Immunization Date Immunization Notes Care Provider Fa cili 01-20-2024 Covid-19, Mrna, Lnp- s, Pf,christian-sucrose,30 Mcg/0.3ml Fall Sangeetha Dunbars DO Work Phone: [facility] 01-20-2024 Seasonal trivalent influenza vaccine, adjuvanted, preservative free Sangeetha Dunbars DO Work Phone: [facility] 01-20-2024 Immunization, In Clinic,; Translations: [Drug or medicament (substance)] Sangeetha Dunbars DO Work Phone: [facility] 01-22-2022 influenza virus vacc ine, unspecified formulation Kathryn Cagle NP Work Phone: [facility] 04-24-2017 Influenza, injectabl e, Madin Ammy Canine Kidney, preservative free, quadrivalent Sangeetha Dunbars DO Work Phone: [facility] 04-24-2017 influenza virus vacc ine, unspecified formulation Sangeetha Dunbars DO Work Phone: [facility] 03-15-2016 pneumococcal polysaccharide vaccine, 23 valent Sangeetha Dunbars DO Work Phone: [facility] 01-11-2016 influenza, seasonal, injectable, preservative free Sangeetha Dunbars DO Work Phone: [facility] 01-05-2015 influenza, seasonal, injectable, preservative free Sangeetha Dunbars DO Work Phone: [facility] 01-05-2015 pneumococcal conjuga te vaccine, 13 valent Sangeetha Dunbars DO Work Phone: [facility] 05-21-2014 pneumococcal polysaccharide vaccine, 23 valent Sangeetha Jiménezhas DO Work Phone: [facility] 05-21-2014 tetanus toxoid, redu mary diphtheria toxoid, and acellular pertussis vaccine, adsorbed Sangeetha Dunbars DO Work Phone: [facility] Payers Date Payer Category Payer Managed Care Other (unspecified) [employer] [id number] 2021 Commercial Managed C are - POS [employer] [id number] 2021 Private Health Insurance [id number] 2010 Medicare [id number] .[id number] 1959 Medicare [id number] 1959 Private Health Insurance CLI [id number] 1947 Unknown [id number] 2.16.840.1.386523.3.579 .2.593 1945 Unknown [id number] 2.16.840.1.789891.3.579 .2.593 1947 Unknown [id number] 2.16.840.1.325390.3.579 .2.593 1947 Unknown [id number] 2.16.840.1.104533.3.579 .2.593 1947 Unknown [id number] 2.16.840.1.991166.3.579 .2.593 1947 Unknown [id number] 2.16.840.1.918470.3.579 .2.593 1947 Unknown [id number] 2.16.840.1.862499.3.579 .2.593 1947 Unknown [id number] 2.16.840.1.782013.3.579 .2.593 1947 Unknown [id number] 2.16.840.1.879665.3.579 .2.593 1947 Unknown [id number] 2.16.840.1.702630.3.579 .2.593 1947 Unknown [id number] 2.16.840.1.703054.3.579 .2.593 1947 Unknown [id number] 2.16.840.1.642466.3.579 .2.593 1947 Unknown [id number] 2.16.840.1.515970.3.579 .2.593 1947 Unknown [id number] 2.16.840.1.661556.3.579 .2.593 1947 Unknown [id number] 2.16.840.1.652425.3.579 .2.593 1947 Unknown [id number] 2.16.840.1.381538.3.579 .2.1259 1947 Unknown [id number] 2.16.840.1.042975.3.579 .2.1259 1947 Unknown [id number] 2.16.840.1.171008.3.579 .2.1259 1947 Unknown [id number] 2.16.840.1.907155.3.579 .2.1259 1947 Unknown [id number] 2.16.840.1.994527.3.579 .2.1285 1947 Unknown [id number] 2.16.840.1.883369.3.579 .2.1285 1947 Unknown [id number] 2.16.840.1.349527.3.579 .2.1285 1947 Unknown [id number] 2.840.1.892933.3.579 .2.1285 1947 Unknown [id number] 2.840.1.318065.3.579 .2.1285 1947 Unknown [id number] 2.840.1.566539.3.579 .2.1285 1947 Unknown [id number] 2.840.1.568513.3.579 .2.1285 1947 Unknown [id number] 2.840.1.351262.3.579 .2.1285 1947 Unknown [id number] 2.840.1.227045.3.579 .2.1285 1947 Unknown [id number] 2.840.1.594232.3.579 .2.1285 1947 Unknown [id number] 2.840.1.806766.3.579 .2.1285 1947 Unknown [id number] 2.840.1.860883.3.579 .2.1285 1947 Unknown [id number] 2.840.1.214459.3.579 .2.1285 1947 Unknown [id number] 2.16840.1.228713.3.579 .2.1285 1947 Unknown [id number] 2.840.1.663967.3.579 .2.1285 1947 Unknown [id number] 2.16.840.1.285188.3.579 .2.1286 1947 Unknown [id number] 2.16.840.1.179242.3.579 .2.1286 1947 Unknown [id number] 2.16.840.1.917722.3.579 .2.1286 Social History Date Type Detail Facility Start: 05-14-2022 End: 01-07-2024 Tobacco smoking status [facility] Never smoked tobacco [facility] Work Phone: Start: 05-14-2022 End: 01-07-2024 Tobacco use and exposure Smokeless tobacco non-user [facility] Start: 01-07-2024 End: 01-20-2024 Alcoholic beverage intake Ex-drinker (finding) [facility] Start: 11-27-2022 End: 01-07-2024 History of Social function [facility] Start: 11-27-2022 End: 01-07-2024 Tobacco use panel [facility] Start: 1945 Sex assigned at Not on file [facility] Tobacco smoking stat [facility] Tobacco smoking consumption unknown [facility] Start: 01-20-2024 End: 05-19-2024 Alcoholic beverage intake Current non-drinker of alcohol (finding) [facility] Has the [employer], [employer], or water [employer] threatened to shut off services in your home in past 12Mo No [facility] Do you belong to any clubs or organizations such as rastafari groups, unions, fraternal or athletic groups, or school groups? Yes [facility] Are you now , , , , never or living with a partner? [facility] How often to you hav e a drink containing alcohol? Never [facility] How many standard dr inks containing alcohol do you have on a typical day? Patient does not drink [facility] How hard is it for y ou to pay for the very basics like food, housing, medical care, and heating Somewhat hard [facility] Do you feel stress - tense, restless, nervous, or anxious, or unable to sleep at night because your mind is troubled all the time - these days [OSQ] Rather much [facility] Start: 11-18-2014 Sex Female (finding) [facility] How hard is it for y ou to pay for the very basics like food, housing, medical care, and heating Hard [facility] Do you feel stress - tense, restless, nervous, or anxious, or unable to sleep at night because your mind is troubled all the time - these days [OSQ] Very much [facility] Clinical Notes 09-07-2021 to 05-19-2024 Sangeetha Quick, DO - 05/19/2024 2:30 PM Vinnie Quick, DO - 02/27/2024 1:40 PM Mahogany Hassan RN - 02/06/2024 2:30 PM EDTTelephone Encounter - Fatoumata Adlerelsa, JOSEY - 02/03/2024 12:49 PM EDT Note Date [...] 3. Vitamin D deficiency -currently taking D3 87415 units weekly because of low vitamin-D and [...] Testing No results found. Sangeetha Quick DO., [facility] Office: [phone] documented in this encounter [facility] 02-27-2024 History of Present illness Narrative Subjective [...] Do you have a durable power of rn palliative?: Yes Cognitive Screening Do you have trouble remembering or recalling facts or events?: No Do family members or caregivers report that you have difficulty remembering things?: No 6-ClT: Normal 3/28 REVIEW OF SYSTEMS: Review of Systems Objective PHYSICAL EXAMINATION: Vitals: 02/27/24 1355 BP: 107/56 Weight: 66.2 kg (146 lb) Height: 149.9 cm (4' 11 ) Physical Exam Assessment/Plan ASSESSMENT/PLAN Rach was seen today for maw. Diagnoses and all orders for this visit: Encounter for subsequent annual wellness visit (AWV) in Medicare patient Return in about 1 year (around 02/26/2025). documented in this encounter [facility] 02-06-2024 History of Present illness Narrative Pt here for reclast as scheduled. Has had in the past without issues. PIV initiated to LAC. Brisk blood return. Flushes with ease. Reclast infused over 15 minutes without incident. Line flushed. PIV removed. Pt dc'd in stable ambulatory condition. documented in this encounter [facility] 02-03-2024 Miscellaneous Notes Called pt to let her know that she just has to go get her labs drawn at the hospital and the orders are already in. documented in this encounter [facility] 02-03-2024 Telephone encounter Note Called pt to let her know that she just has to go get her labs drawn at the hospital and the orders are already in. [facility] 01-22-2024 Miscellaneous Notes Patient called asking about an infusion at the [facility] that you were suppose to send over Message noted. The order was sent. She can call them at any time Mailbox is full documented in this encounter [facility] 01-22-2024 Telephone encounter Note Patient called asking about an infusion at the [facility] that you were suppose to send over [facility] 01-22-2024 Telephone encounter Note Message noted. The order was sent. She can call them at any time [facility] 01-22-2024 Telephone encounter Note Mailbox is full [facility] 01-20-2024 History of Present illness Narrative IM [...] Testing No results found. Sangeetha Quick DO., [facility] Office: [phone] [facility] History of Present illness Narrative HISTORY [...] Daily RT cholecalciferol (Vitamin D-3) 1.25 MG (86487 UT) capsule 1 capsule, Oral, Weekly ergocalciferol (Vitamin D2) 1.25 MG (04264 UT) capsule TAKE 1 CASPULE BY MOUTH [...] Use: Not At Risk (11/27/2022) [facility] AUD[facility]C Frequency of Alcohol Consumption: Never [...] Angella Mckeon D.O. documented in this encounter [facility] 01-07-2024 History of Present illness Narrative Images [...] 09/11/23 XRAY [facility] 06/27/23 XRAY (08/26/18) @ [facility] SY[facility]ISC (01/18/17) PER DR MCKEON PREVIOUS XRAYS (10/17/16) (AP STANDING) @ [facility]. PHYSICAL THERAPY @ [facility] 08/26/18 DR QUICK TX; TRAMADOL PRN- - HX SYNVISC INJ LT KNEE (01/18/17) INJ 3/18/24; PREDNISONE BURST 06/25/23 PARTIAL RELIEF. PAIN MGMT [...] Daily RT cholecalciferol (Vitamin D-3) 1.25 MG (70755 UT) capsule 1 capsule, Oral, Weekly Cyanocobalamin ER 1000 MCG tablet controlled-release 2 tablets, Oral, Daily ergocalciferol (Vitamin D2) 1.25 MG (84886 UT) capsule TAKE 1 CASPULE BY MOUTH [...] left knee showed severe varus deformity with smwq-ad-[id number] articulation to the medial joint line, flattening [...] develop for requiring urgent evaluation. 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 Cobalamin [...] She was visiting her mother in the [place], and person there was having diarrhea and [...] Detected Not Detected^Not Detected Final Specific gravity [facility] 2023 1.015 1.003 - 1.035 Final Leukocyte esterase [facility] 2023 Trace (A) Negative^Negative Final Nitrite [facility] 2023 Negative Negative^Negative Final Ph 2023 5.5 5.0 - 8.5 Final Protein [facility] 2023 Negative Negative^Negative mg/dL Final Urine glucose [facility] 2023 Negative Negative^Negative mg/dL Final Ketones [facility] 2023 Trace (A) Negative^Negative mg/dL Final Urobilinogen [facility] 2023 0.2 <1.1 eu/dL Final Bilirubin [facility] 2023 Negative Negative^Negative Final Hemoglobin [facility] 2023 Small (A) Negative^Negative Final Other Testing No results found. Sangeetha Quick DO., [facility] Office: [phone] documented in this encounter [facility] 12-23-2023 Miscellaneous Notes ED Outreach This documentation is being used for Transition of Care purposes: Yes/No: Yes ED Outreach Date: December 23, 2023 ED Outreach Method: COMMUNICATION METHOD: Telephone ED Outreach Attempt: second ED Outreach Outcome: Contacted Patient Name of ED Facility: [facility] Date of ED Discharge: 2023 [...] with additional concerns. documented in this encounter [facility] 12-23-2023 Telephone encounter Note ED Outreach This documentation is being used for Transition of Care purposes: Yes/No: Yes ED Outreach Date: December 23, 2023 ED Outreach Method: COMMUNICATION METHOD: Telephone ED Outreach Attempt: second ED Outreach Outcome: Contacted Patient Name of ED Facility: [facility] Date of ED Discharge: 2023 [...] will contact the office with additional concerns. [facility] 12-11-2023 Miscellaneous Notes Patient came in today and asked if her mammogram could be sent to [facility]. Also she was wondering if you would check into her in fusion at [facility]. Message noted. [facility] Re[facility]ast infusion at [facility]. She can call about setting up the infusion Informed patient via answering machine. documented in this encounter [facility] 12-11-2023 Telephone encounter Note Patient came in today and asked if her mammogram could be sent to [facility]. Also she was wondering if you would check into her in fusion at [facility]. [facility] 12-11-2023 Telephone encounter Note Message noted. The mammogram order was sent to [facility] I put a new order for the Reclast infusion at [facility]. She can call about setting up the infusion [facility] 12-11-2023 Telephone encounter Note Informed patient via answering machine. [facility] 08-21-2023 Miscellaneous Notes Patient called and the [...] time. Patient notified documented in this encounter [facility] 08-21-2023 Telephone encounter Note Patient called and the injection in her knee did not help. She wanted to know where to go from here. Does she need another apt? [facility] 08-21-2023 Telephone encounter Note Message noted. She needs to see orthopedics about a knee replacement. Whom does she wish to see? [facility] 08-21-2023 Telephone encounter Note LM for Patient to call back. [facility] 08-21-2023 Telephone encounter Note She would like to use Dr. Mckeon [facility] 08-21-2023 Telephone encounter Note Message noted. I made a referral to Dr. Mckeon. She can call his office and schedule at any time. [facility] 08-21-2023 Telephone encounter Note Patient notified [facility] 07-25-2023 History of Present illness Narrative Associated [...] Testing No results found. Sangeetha Quick DO., [facility] Office: [phone] [facility]23 History of Present illness Narrative IM [...] Testing No results found. Sangeetha Quick DO., [facility] Office: [phone] documented in this encounter [facility] 06-25-2023 History of Present illness Narrative IM PROGRESS NOTE Patient - Rach Salcedoance Age - 77 y.o. - 1945 ASSESSMENT [...] Other Testing No results found. Sangeetha Quick DO.DAYNA [facility] Office: [phone] documented in this encounter [facility] 05-30-2023 History of Present illness [...] moved into a memory unit at a correction, and a son was found at home. [...] Testing No results found. Sangeetha Quick DO., [facility] Office: [phone] documented in this encounter [facility] 07-19-2022 Note CONSULTATION CONSULTATION DATE: [...] our patients to inform us about any [id number]-johztvm medications or herbal remedies/nutritional supplements/alternative remedies. 2. [...] options with their primary care provider. [facility] 04-26-2022 Note CONSULTATION CONSULTATION DATE: 04/26/2022 [...] three months' time unless otherwise indicated. [facility] 03-27-2022 Note CONSULTATION CONSULTATION DATE: 03/27/2022 [...] to proceed. CC: Sangeetha Quick D.O. [facility] 02-08-2022 Note CONSULTATION CONSULTATION DATE: 02/08/2022 [...] The patient agrees with this plan. [facility] 01-11-2022 Note CONSULTATION CONSULTATION DATE: 01/11/2022 [...] Patient would like to move forward. [facility] 12-14-2021 Note CONSULTATION PROCEDURE DATE: 12/14/2021 [...] be followed up in the office. [facility] 12-14-2021 Note CONSULTATION CONSULTATION DATE: 12/14/2021 [...] well, which she does consent to. [facility] 09-07-2021 Note CONSULTATION CONSULTATION DATE: 09/07/2021 [...] in the fall. She was referred to [facility] Neurosurgery and is planning to have surgery in the fall following harvest season. 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 Patient feels that she can make it through the summer with a combination of her medication and occasional trigger point injections. 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 She uses heat [...] in three months' time, unless otherwise indicated. [facility] Signed and Approved by: MARIELY YUAN . 09/14/2021 16:04:00 [facility] Evaluation note Diagnosis Primary osteoarthritis of left knee- Primary [facility] Diagnosis Primary localized osteoarthritis of left knee- Primary Left knee pain, unspecified chronicity [facility] Hypothyroidism, unspecified type- Primary Right foot pain Pain in soft tissues of limb Vitamin D deficiency Cobalamin deficiency Other B-complex deficiencies Lichen planus atrophicus Lichen planus [facility] Diagnosis Hypothyroidism, unspecified type- Primary Cobalamin deficiency Other B-complex deficiencies Hyperlipidemia, unspecified hyperlipidemia type Osteoarthritis of left shoulder, unspecified osteoarthritis type documented [facility] this [facility]* Diagnosis Localized osteoarthritis of left knee- Primary documented in this encounter [facility]* Diagnosis Primary osteoarthritis of knees, bilateral- Primary Osteoarthritis of left shoulder, unspecified osteoarthritis type Immunization due documented in this encounter [facility]* Diagnosis Osteoarthritis of left shoulder, unspecified osteoarthritis type- Primary documented [facility] this [facility]* Diagnosis Hordeolum externum of right upper eyelid- Primary Blepharitis of right upper eyelid, unspecified type Age-related osteoporosis without current pathological fracture Encounter for immunization documented [facility] this [facility]* Diagnosis Diarrhea, unspecified type- Primary Primary osteoarthritis of knees, bilateral Vitamin D deficiency Cobalamin deficiency Other B-complex deficiencies Age-related osteoporosis without current pathological fracture Nausea and vomiting, unspecified vomiting type documented in this encounter [facility]* Diagnosis Age-related osteoporosis without current pathological fracture- Primary documented in this encounter [facility]* Diagnosis Hypothyroidism Unspecified hypothyroidism Deficiency of other specified B group vitamins Vitamin D deficiency, unspecified Hordeolum externum of right upper eyelid documented in this encounter [facility]* Diagnosis Encounter for subsequent annual wellness visit (AWV) in Medicare patient- Primary documented in this encounter [facility]* Diagnosis Hyperlipidemia, unspecified documented [facility] filedocumented in this encounter [facility] filedocumented in this encounter [facility]Not on filedocumented in this encounter [facility]* Attachments The following attachments cannot be sent through Care Everywhere. * Osteoarthritis Discharge Instructions (Surinamese) documented [facility]ructionsNot on file documented in this encounter[facility] SystemInstructionsNot on file documented in [facility] SystemInstructionsNot on file documented in this [facility] SystemInstructionsNot on file documented in this encounterPro[facility] SystemInstructionsNot on file documented in this encounter[facility] SystemInstructionsNot on file [facility] Summary Purpose Family History No Family [...] CREATED AUTHOR AUTHOR'S ORGANIZ ATION 08/29/2022 [facility] DATE CREATED AUTHOR AUTHOR'S ORGANIZ ATION 01/20/2024 [facility] EPIC DATE CREATED AUTHOR AUTHOR'S ORGANIZ ATION 05/21/2024 [facility] DATE CREATED AUTHOR AUTHOR'S ORGANIZ ATION 05/22/2024 [facility] DATE CREATED AUTHOR AUTHOR'S ORGANIZ ATION 05/24/2024 [facility] Care Teams (unrecognized sec tion and content) 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 Operator Relationship Specialty Start Date End Date Sangeetha Quick MD [address] [place] [address] PCP - General Internal Medicine 09/10/23 Hydropulper Operator Relationship Specialty Start Date End Date Sangeetha Quick MD [address] [place] [address] PCP - General Internal Medicine 09/10/23 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 Operator Relationship Specialty Start Date End Date Sangeetha Quick MD [address] [place] [address] PCP - General Internal Medicine 09/10/23 Hydropulper Operator Relationship Specialty Start Date End Date Sangeetha Quick DO [address] [facility] [place] [address] PCP - General 11/09/13 Hydropulper Operator Relationship Specialty Start Date End Date Sangeetha Quick DO [address] [facility] [place] [address] PCP - General 11/09/13 Hydropulper Operator Relationship Specialty Start Date End Date Sangeetha Quick DO [address] [facility] [place] [address] PCP - General 11/09/13 Hydropulper Operator Relationship Specialty Start Date End Date Sangeetha Quick DO [address] [facility] [place] [address] PCP - General 11/09/13 Hydropulper Operator Relationship Specialty Start Date End Date Sangeetha Quick DO [address] [facility] [place] [address] PCP - General 11/09/13 Hydropulper Operator Relationship Specialty Start Date End Date Sangeetha Quick DO [address] [facility] [place] [address] PCP - General 11/09/13 Hydropulper Operator Relationship Specialty Start Date End Date Sangeetha Quick DO [address] [facility] [place] [address] PCP - General 11/09/13 Hydropulper Operator Relationship Specialty Start Date End Date Sangeetha Quick [address] [place] [address] PCP - General 11/09/13 Hydropulper Operator Relationship Specialty Start Date End Date Sangeetha Quick DO [address] [place] [address] PCP - General 11/09/13 Hydropulper Operator Relationship Specialty Start Date End Date Sangeetha Quick DO [address] [place] [address] PCP General 11/09/13 Hydropulper Operator Relationship Specialty Start Date End Date Sangeetha Quick [address] [place] [address] [facility] General 11/09/13 Hydropulper Operator Relationship Specialty Start Date End Date Sangeetha Quick [address] [place] [address] [facility] General 11/09/13 Hydropulper Operator Relationship Specialty Start Date End Date Sangeetha Quick DO [address] [place] [address] PCP General 11/09/13 Reason for Visit (unrecogniz ed [...] Age-related osteoporosis without current pathological fracture Procedures LA ZOLEDRONIC ACID 1MG LA INJECTION,THERAP/PROPH/DIAG NOST, IV PUSH, INITIAL DRUG Sangeetha Quick, DO [address] [place] [address] Phone: tel: fax: Alicia Gaston [facility] [address] [place] [address] Phone: tel: fax: Referral ID Status Reason Start Date Expiration Date V isits Requested Visits Authorized [id number] Authorized 12/31/2022 01/29/2025 1 1 Reason Comments [...] BE BASED ON THE PRIMARY CLINICAL RECORDS. [place] provides no warranty or guarantee of the accuracy or completeness of information in this document.
[2024-06-16 07:04] VITALS: BP 119/61; PULSE 80; TEMP 36.4; O2SAT 99
[2024-06-16 08:27] VITALS: BP 172/88; BP 200/86; PULSE 72; PULSE 80; O2SAT 100; O2SAT 99
[2024-06-16] MEDS: 0.9 % SODIUM CHLORIDE 10 ML SYRINGE - SALINE FLUSH INJ (08:28)
[2024-06-16] MEDS: BUPIVACAINE HCL 0.25% PF 25 MG/10 ML VIAL INJ (08:28)
[2024-06-16] MEDS: METHYLPREDNISOLONE ACETATE 80 MG/ML VIAL INJ (08:29)
[2024-06-16] MEDS: LIDOCAINE HCL 2% 400 MG/20 ML MDV 5 ML INJ (08:29)
[2024-06-16] MEDS: IOHEXOL 240 MG/ML - 10 ML VIAL INJ (08:33)
--- NOTE | 2024-06-16 08:43 | P.ON_ITS ---
Date of procedure: 06/16/24 Pre-op diagnosis: Lumbar radiculopathy Post-op diagnosis: same as pre-op Procedure: Lumbar 5/Sacral 1 Epidural Steroid Injection Under fluoroscopic guidance Immediate complications none Solution used for injection: Marcaine 0.25% 2mL, 2cc Normal saline, Depo-Medrol 80mg Omnipaque 3 mL Anesthesia local 2% lidocaine up to 4ml Timeout process compliant After informed consent obtained. Patient brought to the procedure room placed in the prone position. Skin overlying the area was prepped and draped in a sterile fashion using betadine. 25 gauge needle used to raise a skin wheel with local anesthetic over the target area identified under fluoroscopy. A 17 gauge Touhy needle Was inserted over the anesthetized area and directed towards the inter- space under fluoroscopic guidance. Epidural space was identified with loss of resistance technique to air. Needle Tip placement confirmed with injection of contrast solution in AP and Lateral views. Steroid solution was then injected. Anesthesia: Local Surgeon: Suma Baker Condition: stable
== END 2024-06-16 08:38 | disposition home or self-care (01) ==
LOC: SURGOUT 06:45
PROVIDERS: PCP Internal Medicine; Visit Provider Anesthesiology Pain Medicine
DX: M54.16 Radiculopathy, lumbar region (principal)
CPT/HCPCS: 62323; J0665; J1010; Q9966

== ENCOUNTER 2024-07-02 14:04 | Outpatient (OUT) | payer MEDICARE, SELFPAY ==
--- OUTSIDE RECORDS SUMMARY | 2024-07-02 14:25 | XMS_ITS | CCD ---
Author Organization [facility] Care Team Providers Care Oral And Maxillofacial Surgery Name Role Phone LAKSHMIPATHY, NARENDRANATH Attending Unava ilable LAKSHMIPATHY, NARENDRANATH Admitting Unava ilable YUHAS, DR VIVAS Primary Care Unavailable LAKSHMIPATHY, NARENDRANATH Consulting Unava ilable FRANCI .MIREYA Consulting Unavailable BARRAZA ., DR YINKA Alford Consulting Unavailable BRARAZA ., DR YINKA Alford Attending Unavailable BARRAZA [...] Attending Sangeetha Pimentel MD Primary Care Provider [phone] Sangeetha Quick DO Primary Care Provider SANGEETHA [...] Facility (1 source) Aspirin Drug Allergy [facility] Repository (4 sources) Codeine; Translations: [CODEINE] Drug Allergy 8 [facility] Repository (1 source) Etodolac Drug Allergy [facility] Repository (4 sources) Iodine; Translations: [IODINE] Drug Allergy 8 [facility] Repository (4 sources) Latex; Translations: [LATEX] Drug allergy (disorder) 3 [facility] Repository (1 source) pregabalin Drug Allergy [facility] (1 source) Sulfonamides (Antibiotic) Drug allergy (disorder) [facility] Rep[facility] (6 sources) Aluminum aspirin Drug Allergy 4 [facility] (20 sources) Codeine Drug Allergy 8 Rash, Unknown [facility] (9 sources) Etodolac; Translations: [ETODOLAC] Propensity to adverse reactions 3 [facility] (20 sources) Iodine Drug Allergy 8 Anaphylaxis [facility] (6 sources) Latex Propensity to adverse reactions 3 [facility] (9 sources) Penicillins; Translations: [PENICILLINS] Drug Intolerance 8 Hives [facility] (20 sources) Sulfonamides (Antibiotic) Drug Intolerance 8 Rash, Unknown [facility] (19 sources) Aspirin; Translations: [ASPIRIN, BUFFERED] Drug Allergy 8 [facility] (16 sources) Etodolac Drug Allergy 3 [facility] (16 sources) Latex Propensity to adverse reactions to drug 3 [facility] (16 sources) Penicillins Propensity to adverse reactions to drug 8 [facility] (3 sources) Sulfonamides (Antibiotic); Translations: [SULFA (SULFONAMIDE ANTIBIOTICS)] Propensity to adverse reactions to drug (disorder) 8 [facility] Rep[facility] Medications Current Medications Medication Drug [...] Perez MD on 05/23/2024 9:39 PM Normal [facility] CBC AND AUTO DIFFon 05-19-19 25 ABSOLUTE BASOPHIL 0.0 X10E9/L Normal 0.0-0.2 [facility] Comment on above: Performed By: #### C BCA, CMP, THYR, 2131-12, 81273-7 #### [facility] ([id number]) [address], [address] [place] [address] ABSOLUTE NEUTROPHIL 4.4 X10E9/L Normal 1.5-6.6 [facility] Comment on above: Performed By: #### C BCA, CMP, THYR, 2131-12, 73429-6 #### [facility] ([id number]) [address], [address] [place] [address] Basophils/100 WBC (Bld) 0.2 % Normal [facility] Comment on above: Performed By: #### C BCA, CMP, THYR, 2131-12, 65816-4 #### [facility] ([id number]) [address], [address] [place] [address] Eosinophils (Bld) [#/Vol] 0.1 10*3/uL Normal 0.0-0.4 [facility] Comment on above: Performed By: #### C BCA, CMP, THYR, 2131-12, 26086-1 #### [facility] ([id number]) [address] [place] [address] Eosinophils/100 WBC (Bld) 1.2 % Normal [facility] Comment on above: Performed By: #### C BCA, CMP, THYR, 2131-12, 61553-4 #### [facility] ([id number]) [address] [place] [address] Erythrocyte distribution width (RBC) [Ratio] 14.9 % Normal 11.5-15.0 [facility] Comment on above: Performed By: #### C BCA, CMP, THYR, 2131-12, 34662-9 #### [facility] ([id number]) [address] [place] [address] Hematocrit (Bld) [Volume fraction] 34.6 % Low 35-47 [facility] Comment on above: Performed By: #### C BCA, CMP, THYR, 2131-12, 87330-3 #### [facility] ([id number]) [address] [place] [address] Hemoglobin (Bld) [Mass/Vol] 11.2 g/dL Low 11.7-15.5 [facility] Comment on above: Performed By: #### C BCA, CMP, THYR, 2131-12, 86145-2 #### [facility] ([id number]) [address] [place] [address] Lymphocytes (Bld) [#/Vol] 2.5 10*3/uL Normal 1.0-3.5 [facility] Comment on above: Performed By: #### C BCA, CMP, THYR, 2131-12, 49769-1 #### [facility] ([id number]) [address] [place] [address] Lymphocytes/100 WBC (Bld) 33.7 % Normal [facility] Comment on above: Performed By: #### C BCA, CMP, THYR, 2131-12, #### [facility] ([id number]) [address] [place] [address] MCH (RBC) [Entitic mass] 27.7 pg Normal 27-34 [facility] Comment on above: Performed By: #### C BCA, CMP, THYR, 2131-12, 93208-7 #### [facility] ([id number]) [address] [place] [address] MCHC (RBC) [Mass/Vol] 32.4 g/dL Normal 32-36 [facility] Comment on above: Performed By: #### C BCA, CMP, THYR, 2131-12, 04872-7 #### [facility] ([id number]) [address] [place] [address] MCV (RBC) [Entitic vol] 86 fL Normal 80-100 [facility] Comment on above: Performed By: #### C BCA, CMP, THYR, 2131-12, 03678-1 #### [facility] ([id number]) [address] [place] [address] Monocytes (Bld) [#/Vol] 0.4 10*3/uL Normal 0-0.9 [facility] Comment on above: Performed By: #### C BCA, CMP, THYR, 2131-12, 15349-9 #### [facility] ([id number]) [address] [place] [address] Monocytes/100 WBC (Bld) 5.8 % Normal [facility] Comment on above: Performed By: #### C BCA, CMP, THYR, 2131-12, 52365-2 #### [facility] ([id number]) [address] [address] [place] [address] Neutrophils/100 WBC (Bld) 59.1 % Normal [facility] Comment on above: Performed By: #### C BCA, CMP, THYR, 2131-12, 75472-5 #### [facility] ([id number]) [address] [place] [address] Platelet mean volume (Bld) [Entitic vol] 9.4 fL Normal 7-12 [facility] Comment on above: Performed By: #### C BCA, CMP, THYR, 2131-12, 50751-3 #### [facility] ([id number]) [address] [address] [place] [address] Platelets (Bld) [#/Vol] 242 10*3/uL Normal 150-450 [facility] Comment on above: Performed By: #### C BCA, CMP, THYR, 2131-12, 23327-6 #### [facility] ([id number]) [address] [address] [place] [address] RBC COUNT 4.04 X10E12/L Normal 3.80-5.20 [facility] Comment on above: Performed By: #### C BCA, CMP, THYR, 2131-12, 65752-1 #### [facility] ([id number]) [address] [address] [place] [address] WBC (Bld) [#/Vol] 7.5 10*3/uL Normal 4.0-11.0 [facility] Comment on above: Performed By: #### C BCA, CMP, THYR, 2131-12, 07857-6 #### [facility] ([id number]) [address] [place] [address] COMPREHENSIVE METABOLIC PANE Ulices 05-19-2024 Albumin [Mass/Vol] 4.3 g/dL Normal 3.2-5.3 [facility] Comment on above: Performed By: #### C BCA, CMP, THYR, 2131-12, 02744-8 #### [facility] ([id number]) [address] [place] [address] ALP [Catalytic activity/Vol] 51 U/L Normal 39-130 [facility] Comment on above: Performed By: #### C BCA, CMP, THYR, 2131-12, 57508-6 #### [facility] ([id number]) [address] [place] [address] ALT [Catalytic activity/Vol] 10 U/L Normal 0-31 [facility] Comment on above: Performed By: #### C BCA, CMP, THYR, 2131-12, 90182-3 #### [facility] ([id number]) [address] [place] [address] Anion gap [Moles/Vol] 8 mmol/L Normal 5-15 [facility] Comment on above: Performed By: #### C BCA, CMP, THYR, 2131-12, 51758-9 #### [facility] ([id number]) [address] [place] [address] AST [Catalytic activity/Vol] 17 U/L Normal 0-41 [facility] Comment on above: Performed By: #### C BCA, CMP, THYR, 2131-12, 61801-0 #### [facility] ([id number]) [address] [place] [address] Bilirubin [Mass/Vol] 0.4 mg/dL Normal 0.3-1.2 [facility] Comment on above: Performed By: #### C BCA, CMP, THYR, 2131-12, 11663-1 #### [facility] ([id number]) [address] [place] [address] Calcium [Mass/Vol] 8.8 mg/dL Normal 8.5-10.5 [facility] Comment on above: Performed By: #### C BCA, CMP, THYR, 2131-12, 70630-3 #### [facility] ([id number]) [address] [place] [address] Chloride [Moles/Vol] 104 mmol/L Normal 98-109 [facility] Comment on above: Performed By: #### C BCA, CMP, THYR, 2131-12, 71166-8 #### [facility] ([id number]) [address] [place] [address] CO2 [Moles/Vol] 28 mmol/L Normal 22-32 [facility] Comment on above: Performed By: #### C BCA, CMP, THYR, 2131-12, 64282-6 #### [facility] ([id number]) [address] [address] [place] [address] Creatinine [Mass/Vol] 0.93 mg/dL Normal 0.40-1.00 [facility] Comment on above: Result Comment: METH OD TRACEABLE TO IDMS STANDARD Performed By: #### C BCA, CMP, THYR, 2131-12, 68212-3 #### [facility] ([id number]) [address] [place] [address] GFR/1.73 sq M.predicted among non-blacks MDRD (S/P/Bld) [Vol rate/Area] 64 mL/min/{1.73_m2} Normal >59 [facility] Comment on above: Result Comment: Reported eGFR is based on the CKD-EPI 2020 equation that does not use a race coefficient. Performed By: #### C BCA, CMP, THYR, 2131-12, 50883-1 #### [facility] ([id number]) [address] [place] [address] Glucose [Mass/Vol] 87 mg/dL Normal 65-99 [facility] Comment on above: Performed By: #### C BCA, CMP, THYR, 2131-12, 01147-1 #### [facility] ([id number]) [address] [place] [address] Potassium [Moles/Vol] 4.1 mmol/L Normal 3.5-5.0 [facility] Comment on above: Performed By: #### C BCA, CMP, THYR, 2131-12, 90651-1 #### [facility] ([id number]) [address] [place] [address] Protein [Mass/Vol] 6.6 g/dL Normal 6.0-8.0 [facility] Comment on above: Performed By: #### C BCA, CMP, THYR, 2131-12, 29860-3 #### [facility] ([id number]) [address] [place] [address] Sodium [Moles/Vol] 140 mmol/L Normal 134-146 [facility] Comment on above: Performed By: #### C BCA, CMP, THYR, 2131-12, 33631-8 #### [facility] ([id number]) [address] [place] [address] Urea nitrogen [Mass/Vol] 20 mg/dL Normal 5-27 [facility] Comment on above: Performed By: #### C BCA, CMP, THYR, 2131-12, 84198-6 #### [facility] ([id number]) [address] [place] [address] THYROID PROFILEon 05-19-2024 Free T4 [Mass/Vol] 0.95 ng/dL Normal 0.61-1.60 [facility] Comment on above: Performed By: #### C BCA, CMP, THYR, 2131-12, 20939-1 #### [facility] ([id number]) [address] [place] [address] TSH 0.60 uIU/mL Normal 0.49-4.67 [facility] Comment on above: Performed By: #### C BCA, CMP, THYR, 2131-12, 25795-6 #### [facility] ([id number]) [address] [facility] [place] [address] VITAMIN B12on 05-19-2024 Cobalamin (Vitamin B12) [Mass/Vol] 319 pg/mL Normal 180-914 [facility] Comment on above: Performed By: #### C BCA, CMP, THYR, 2131-12, 49592-2 #### [facility] ([id number]) [address] [address] [address] [place] [address] Vitamin D+Metabolites [Mass/ Vol]on 05-19-2024 VITAMIN D 25 HYD TOT 97.5 ng/mL Normal 30-100 [facility] Comment on above: Result Comment: Vitamin D status 25 [place] Vitamin D Deficiency <20 ng/mL Insufficiency 20-29 ng/mL Sufficiency 30-100 ng/mL Toxicity >100 ng/mL NOTE: A pediatric reference range has not been established by the elocution teacher of this kit. The [place] [employer] recommends a Vitamin D level of = or >20ng/mL in infants and children. Performed By: #### C BCA, CMP, THYR, 2131-12, 64487-9 #### [facility] ([id number]) [address] [facility] [place] [address] ALBUMINon 02-05-2024 Albumin [Mass/Vol] 4.1 g/dL Normal 3.2-5.3 [facility] Comment on above: Performed By: #### C BCA, CMP, 3040-3 #### [facility] ([id number]) [address] [place] [address] CALCIUMon 02-05-2024 Calcium [Mass/Vol] 8.9 mg/dL Normal 8.5-10.5 [facility] Comment on above: Performed By: #### C TANNER HARDY, 3040-3 #### [facility] ([id number]) [address] [place] [address] CREATININEon 02-05-2024 Creatinine [Mass/Vol] 0.70 mg/dL Normal 0.40-1.00 [facility] Comment on above: Result Comment: METH OD TRACEABLE TO IDMS STANDARD Performed By: #### C TANNER HARDY, 3040-3 #### [facility] ([id number]) [address] [place] [address] GFR/1.73 sq M.predicted among non-blacks MDRD (S/P/Bld) [Vol rate/Area] 90 mL/min/{1.73_m2} Normal >59 [facility] Comment on above: Result Comment: Reported eGFR is based on the CKD-EPI 2020 equation that does not use a race coefficient. Performed By: #### C TANNER HARDY, 3040-3 #### [facility] ([id number]) [address] [place] [address] Vitamin D+Metabolites [Mass/ Vol]on 02-05-2024 VITAMIN D 25 HYD TOT 78.5 ng/mL Normal 30-100 [facility] Comment on above: Result Comment: Vitamin D status 25 [place] Vitamin D Deficiency <20 ng/mL Insufficiency 20-29 ng/mL Sufficiency 30-100 ng/mL Toxicity >100 ng/mL NOTE: A pediatric reference range has not been established by the elocution teacher of this kit. The [place] [employer] recommends a Vitamin D level of = or >20ng/mL in infants and children. Performed By: #### C [facility], [facility], 3040-3 #### [facility] ([id number]) [address] [place] [address], [place] [address] XR Knee - left 1 or 2 Viewso n 01-08-2024 Imaging Result: AP and lateral views of left knee showed severe varus deformity with [id number] articulation to the medial joint line, flattening [...] joint disease left knee with varus deformity [facility] XR Knee - left 1 or 2 ViewsO rdered By: Jr. Mckeon on 01-08-2024 [facility] [employer] Work Phone: XR Knee - left 1 or 2 Viewso n 01-07-2024 Radiology Study observation (narrative) [facility] GI PANELon 12-26-2023 Gastrointestinal [...] SAPOVIRUS Not detected (qualifier value) Normal NDET [facility] Comment on above: Performed By: #### 8 2195-9 #### [facility] ([id number]) [address] [facility] [place] [address] [facility] ([id number]) [address] [place] [address] MAMM SCREENING BILATERAL W C absorption plant operator 12-26-2023 MAMM SCREENING BILATERAL W CAD MAMM SCREENING BILATERAL W CAD RACH MUNROE 1945 [id number] EXAM: MAMM SCREENING BILATERAL W CAD, 12/26/2023 [...] PM 1 c MAMM 1 YR Normal [facility] BASIC METABOLIC PANLon 12-24 Anion gap [Moles/Vol] 10 mmol/L Normal 5-15 [facility] Comment on above: Performed By: #### B KIMBERLY, 2131-12 #### [facility] ([id number]) [address] [place] [address] Calcium [Mass/Vol] 8.8 mg/dL Normal 8.5-10.5 [facility] Comment on above: Performed By: #### B KIMBERLY, 2131-12 #### [facility] ([id number]) [address] [place] [address] Chloride [Moles/Vol] 105 mmol/L Normal 98-109 [facility] Comment on above: Performed By: #### B KIMBERLY 2131-12 #### [facility] ([id number]) [address] [place] [address] CO2 [Moles/Vol] 26 mmol/L Normal 22-32 [facility] Comment on above: Performed By: #### Lm HARRIS, 2131-12 #### [facility] ([id number]) [address] [place] [address] Creatinine [Mass/Vol] 0.73 mg/dL Normal 0.40-1.00 [facility] Comment on above: Result Comment: METH OD TRACEABLE TO IDMS STANDARD Performed By: #### Lm HARRIS, 2131-12 #### [facility] ([id number]) [address] [place] [address] GFR/1.73 sq M.predicted among non-blacks MDRD (S/P/Bld) [Vol rate/Area] 85 mL/min/{1.73_m2} Normal >59 [facility] Comment on above: Result Comment: Reported eGFR is based on the CKD-EPI 2020 equation that does not use a race coefficient. Performed By: #### Lm HARRIS, 2131-12 #### [facility] ([id number]) [address] [place] [address] Glucose [Mass/Vol] 92 mg/dL Normal 65-99 [facility] Comment on above: Performed By: #### Lm HARRIS, 2131-12 #### [facility] ([id number]) [address] [place] [address] Potassium [Moles/Vol] 3.4 mmol/L Low 3.5-5.0 [facility] Comment on above: Performed By: #### Lm HARRIS, 2131-12 #### [facility] ([id number]) [address] [place] [address] Sodium [Moles/Vol] 141 mmol/L Normal 134-146 [facility] Comment on above: Performed By: #### Lm HARRIS, 2131-12 #### [facility] ([id number]) [address] [place] [address] Urea nitrogen [Mass/Vol] 22 mg/dL Normal 5-27 [facility] Comment on above: Performed By: #### Lm HARRIS, 2131-12 #### [facility] ([id number]) [address] [place] [address] VITAMIN B12on 12-25-2023 Cobalamin (Vitamin B12) [Mass/Vol] pg/mL High 180-914 [facility] Comment on above: Performed By: #### Lm HARRIS, 2131-12 #### [facility] ([id number]) [address] [place] [address] CBC AND AUTO DIFFon 12-21-19 24 ABSOLUTE BASOPHIL 0.0 X10E9/L Normal 0.0-0.2 [facility] Comment on above: Performed By: #### C HAYLEY CMP, 3040-3 #### [facility] ([id number]) [address] [place] [address] ABSOLUTE NEUTROPHIL 7.4 X10E9/L High 1.5-6.6 [facility] Comment on above: Performed By: #### Renee HARDY CMP, 0-3 #### [facility] ([id number]) [address] [place] [address] Basophils/100 WBC (Bld) 0.3 % Normal [facility] Comment on above: Performed By: #### Renee HARDY CMP, 3040-3 #### [facility] ([id number]) [address] [place] [address] Eosinophils (Bld) [#/Vol] 0.1 10*3/uL Normal 0.0-0.4 [facility] Comment on above: Performed By: #### C BCA, CMP, 3039-06 #### [facility] ([id number]) [address] [place] [address] Eosinophils/100 WBC (Bld) 0.7 % Normal [facility] Comment on above: Performed By: #### Renee HARDY CMP, 3039-06 #### [facility] ([id number]) [address] [place] [address] Erythrocyte distribution width (RBC) [Ratio] 15.3 % High 11.5-15.0 [facility] Comment on above: Performed By: #### Renee HARDY CMP, 3039-06 #### [facility] ([id number]) [address] [place] [address] Hematocrit (Bld) [Volume fraction] 35.6 % Normal 35-47 [facility] Comment on above: Performed By: #### Renee HARDY CMP, 3039-06 #### [facility] ([id number]) [address] [place] [address] Hemoglobin (Bld) [Mass/Vol] 11.8 g/dL Normal 11.7-15.5 [facility] Comment on above: Performed By: #### Renee HARDY CMP, 3039-06 #### [facility] ([id number]) [address] [place] [address] Lymphocytes (Bld) [#/Vol] 1.1 10*3/uL Normal 1.0-3.5 [facility] Comment on above: Performed By: #### Renee HARDY CMP, 3039-06 #### [facility] ([id number]) [address] [place] [address] Lymphocytes/100 WBC (Bld) 11.6 % Normal [facility] Comment on above: Performed By: #### Renee HARDY CMP, 3039-06 #### [facility] ([id number]) [address] [place] [address] MCH (RBC) [Entitic mass] 27.8 pg Normal 27-34 [facility] Comment on above: Performed By: #### Renee HARDY CMP, 3039-3 #### [facility] ([id number]) [address] [place] [address] MCHC (RBC) [Mass/Vol] 33.1 g/dL Normal 32-36 [facility] Comment on above: Performed By: #### Renee HARDY CMP, 3039-06 #### [facility] ([id number]) [address] [place] [address] MCV (RBC) [Entitic vol] 84 fL Normal 80-100 [facility] Comment on above: Performed By: #### Renee HARDY CMP, 3 #### [facility] ([id number]) [address] [place] [address] 93256 Monocytes (Bld) [#/Vol] 0.6 10*3/uL Normal 0-0.9 [facility] Comment on above: Performed By: #### Renee HARDY CMP, 3039-06 #### [facility] ([id number]) [address] [place] [address] 66725 Monocytes/100 WBC (Bld) 6.4 % Normal [facility] Comment on above: Performed By: #### Renee HARDY CMP, 3039-06 #### [facility] ([id number]) [address] [place] [address] 60051 Neutrophils/100 WBC (Bld) 81.0 % Normal [facility] Comment on above: Performed By: #### Renee HARDY CMP, 3039-06 #### [facility] ([id number]) [address] [place] [address] 32341 Platelet mean volume (Bld) [Entitic vol] 8.9 fL Normal 7-12 [facility] Comment on above: Performed By: #### C HAYLEY, CMP, 0-3 #### [facility] ([id number]) [address] [place] [address] 56482 Platelets (Bld) [#/Vol] 255 10*3/uL Normal 150-450 [facility] Comment on above: Performed By: #### Renee HARDY CMP, 3039-3 #### [facility] ([id number]) [address] [place] [address] 53428 RBC COUNT 4.24 X10E12/L Normal 3.80-5.20 [facility] Comment on above: Performed By: #### Renee HARDY CMP, 3 #### [facility] ([id number]) [address] [place] [address] WBC (Bld) [#/Vol] 9.1 10*3/uL Normal 4.0-11.0 [facility] Comment on above: Performed By: #### Renee HARDY, CMP, 3039-3 #### [facility] ([id number]) [address] [place] [address]1489 COMPREHENSIVE METABOLIC PANE [facility] 2023 Albumin [Mass/Vol] 4.2 g/dL Normal 3.2-5.3 [facility] Comment on above: Performed By: #### Renee HARDY, CMP, 3039-3 #### [facility] ([id number]) [address] [place] [address]574 ALP [Catalytic activity/Vol] 63 U/L Normal 39-130 [facility] Comment on above: Performed By: #### C BCA, CMP, 3039-3 #### [facility] ([id number]) [address] [place] [address] 97586 ALT [Catalytic activity/Vol] 14 U/L Normal 0-31 [facility] Comment on above: Performed By: #### C BCA, CMP, 3039-3 #### [facility] ([id number]) [address] [place] [address] 62761 Anion gap [Moles/Vol] 7 mmol/L Normal 5-15 [facility] Comment on above: Performed By: #### C BCA, CMP, 3039-3 #### [facility] ([id number]) [address] [place] [address] [place] [address] AST [Catalytic activity/Vol] 20 U/L Normal 0-41 [facility] Comment on above: Performed By: #### C BCA, CMP, 3039-3 #### [facility] ([id number]) [address] [place] [address] 01562 Bilirubin [Mass/Vol] 0.5 mg/dL Normal 0.3-1.2 [facility] Comment on above: Performed By: #### C BCA, CMP, 3 #### [facility] ([id number]) [address] [place] [address] 03390 Calcium [Mass/Vol] 8.5 mg/dL Normal 8.5-10.5 [facility] Comment on above: Performed By: #### C BCA, CMP, 3039-3 #### [facility] ([id number]) [address] [place] [address] 03504 Chloride [Moles/Vol] 105 mmol/L Normal 98-109 [facility] Comment on above: Performed By: #### C BCA, CMP, 0-3 #### [facility] ([id number]) [address] [place] [address] 43409 CO2 [Moles/Vol] 22 mmol/L Normal 22-32 [facility] Comment on above: Performed By: #### C BCA, CMP, 0-3 #### [facility] ([id number]) [address] [place] [address] Creatinine [Mass/Vol] 0.64 mg/dL Normal 0.40-1.00 [facility] Comment on above: Result Comment: METH OD TRACEABLE TO IDMS STANDARD Performed By: #### C TANNER HARDY, 3040-3 #### [facility] ([id number]) [address] [place] [address] 39041 eGFR (CKD-EPI) NON-RACE DEPENDENT >90 Normal >59 [facility] Comment on above: Result Comment: Reported eGFR is based on the CKD-EPI 2020 equation that does not use a race coefficient. Performed By: #### C TANNER HARDY, 3039-3 #### [facility] ([id number]) [address] [place] [address] 23277 Glucose [Mass/Vol] 123 mg/dL High 65-99 [facility] Comment on above: Performed By: #### C HAYLEY [facility], 3 #### [facility] ([id number]) [address] [place] [address] 61395 Potassium [Moles/Vol] 3.8 mmol/L Normal 3.5-5.0 [facility] Comment on above: Performed By: #### C HAYLEY [facility], 0-3 #### [facility] ([id number]) [address] [place] [address] 39338 Protein [Mass/Vol] 7.3 g/dL Normal 6.0-8.0 [facility] Comment on above: Performed By: #### C HAYLEY [facility], 0-3 #### [facility] ([id number]) [address] [place] [address] 06899 Sodium [Moles/Vol] 134 mmol/L Normal 134-146 [facility] Comment on above: Performed By: #### Renee HARDY CMP, 0-3 #### [facility] ([id number]) [address] [place] [address] [place] [address] Urea nitrogen [Mass/Vol] 18 mg/dL Normal 5-27 [facility] Comment on above: Performed By: #### C HAYLEY, [facility], 3040-3 #### [facility] ([id number]) [address] [place] [address] LIPASEon 2023 Lipase [Catalytic activity/Vol] 26 U/L Normal 17-40 [facility] Comment on above: Performed By: #### C HAYLEY, [facility], 3040-3 #### [facility] ([id number]) [address] [place] [address] SARS/FLU A+B/RSV by NAAT/Mol ecularon 2023 SARS/FLU [...] operators who are performing tests using either Unmetric DX or Invodo systems and is limited to laboratories that [...] repeat. Fact Sheet for Healthcare Providers: https://www.fda.gov/m edia/774748/download Fact Sheet for Patients: https://www.fda.gov/m edia/866722/download Normal [facility] Comment on above: Performed By: #### C OVFLR #### [facility] ([id number]) [address] [place] [address] 79054 URN MACROSCOPIC NURon 2023 BILIRUBIN STUART Negative Normal NEG [facility] Comment on above: Performed By: #### N UM #### [facility] ([id number]) [address] [place] [address] 21202 BLOOD/HGB STUART Small Abnormal [facility] Comment on above: Performed By: #### N UM #### [facility] ([id number]) [address] [place] [address] 31264 GLUCOSE STUART Negative Normal NEG [facility] Comment on above: Performed By: #### N UM #### [facility] ([id number]) [address] [place] [address] [place] [address] KETONES STUART Trace Abnormal [facility] Comment on above: Performed By: #### N UM #### [facility] ([id number]) [address] [place] [address] 80116 LEUKOCYTE ESTERASE STUART Trace Abnormal [facility] Comment on above: Performed By: #### N UM #### [facility] ([id number]) [address] [place] [address] 67148 NITRITE STUART Negative Normal NEG [facility] Comment on above: Performed By: #### N UM #### [facility] ([id number]) [address] [place] [address] 60294 PH STUART 5.5 Normal 5.0-8.5 [facility] Comment on above: Performed By: #### N UM #### [facility] ([id number]) [address] [place] [address] 97233 PROTEIN STUART Negative Normal NEG [facility] Comment on above: Performed By: #### N UM #### [facility] ([id number]) [address] [place] [address] 55696 SPECIFIC GRAVITY STUART 1.015 Normal 1.003-1.035 [facility] Comment on above: Performed By: #### N UM #### [facility] ([id number]) [address] [place] [address] 55400 UROBILINOGEN STUART 0.2 eu/dL Normal <1.1 [facility] Comment on above: Performed By: #### N UM #### [facility] ([id number]) [address] [place] [address] 98402 $ Arthrocentesison 4 Sangeetha Quick DO 07/25/2023 [...] signs reviewed and stable [facility] KNEE LT 3 VWSon XR [...] Alejandro MD on 06/27/2023 1:51 PM Normal [facility] COMPREHENSIVE METABOLIC PANE [facility] 05-30-2023 Albumin [Mass/Vol] 4.3 g/dL Normal 3.2-5.3 [facility] Comment on above: Performed By: #### C KIMBERLY, 49323-9, THYR #### [facility] ([id number]) [address], [address] [place] [address] ALP [Catalytic activity/Vol] 63 U/L Normal 39-130 [facility] Comment on above: Performed By: #### C KIMBERLY, 06996-5, THYR #### [facility] ([id number]) [address] [facility] [address], [address] [place] [address] ALT [Catalytic activity/Vol] 15 U/L Normal 0-31 [facility] Comment on above: Performed By: #### C KIMBERLY, 94064-6, THYR #### [facility] ([id number]) [address], [address] [place] [address] Anion gap [Moles/Vol] 6 mmol/L Normal 5-15 [facility] Comment on above: Performed By: #### C KIMBERLY, 98229-7, THYR #### [facility] ([id number]) [address], [address] [place] [address] AST [Catalytic activity/Vol] 15 U/L Normal 0-41 [facility] Comment on above: Performed By: #### C KIMBERLY, 99947-9, THYR #### [facility] ([id number]) [address], [address] [place] [address] Bilirubin [Mass/Vol] 0.3 mg/dL Normal 0.3-1.2 [facility] Comment on above: Performed By: #### C KIMBERLY, 12316-7, THYR #### [facility] ([id number]) [address], [address] [place] [address] Calcium [Mass/Vol] 9.1 mg/dL Normal 8.5-10.5 [facility] Comment on above: Performed By: #### C KIMBERLY, 74237-0, THYR #### [facility] ([id number]) [address], [address] [place] [address] Chloride [Moles/Vol] 105 mmol/L Normal 98-109 [facility] Comment on above: Performed By: #### C KIMBERLY, 71118-8, THYR #### [facility] ([id number]) [address], [address] [place] [address] CO2 [Moles/Vol] 31 mmol/L Normal 22-32 [facility] Comment on above: Performed By: #### C KIMBERLY, 14294-1, THYR #### [facility] ([id number]) [address], [address] [place] [address] Creatinine [Mass/Vol] 0.65 mg/dL Normal 0.40-1.00 [facility] Comment on above: Result Comment: METH OD TRACEABLE TO IDMS STANDARD Performed By: #### C KIMBERLY 91610-9, THYR #### [facility] ([id number]) [address], [address] [place] [address] eGFR (CKD-EPI) NON-RACE DEPENDENT >90 Normal >59 [facility] Comment on above: Result Comment: Reported eGFR is based on the CKD-EPI 2020 equation that does not use a race coefficient. Performed By: #### Divya Duran MP31-1, THYR #### [facility] ([id number]) [address], [address] [place] [address] Glucose [Mass/Vol] 101 mg/dL High 65-99 [facility] Comment on above: Performed By: #### Divya Duran MP31-1, THYR #### [facility] ([id number]) [address], [address] [place] [address] Potassium [Moles/Vol] 4.4 mmol/L Normal 3.5-5.0 [facility] Comment on above: Performed By: #### Renee HARRIS 22875-6, THYR #### [facility] ([id number]) [address], [address] [place] [address] Protein [Mass/Vol] 6.9 g/dL Normal 6.0-8.0 [facility] Comment on above: Performed By: #### Divya Duran MP31-1, THYR #### [facility] ([id number]) [address] [place] [address] Sodium [Moles/Vol] 142 mmol/L Normal 134-146 [facility] Comment on above: Performed By: #### Renee HARRIS 54355-0, THYR #### [facility] ([id number]) [address], [address] [place] [address] Urea nitrogen [Mass/Vol] 18 mg/dL Normal 5-27 [facility] Comment on above: Performed By: #### C MP, 64897-6, THYR #### [facility] ([id number]) [address] [place] [address] Comprehensive metabolic pane ulices 05-30-2023 Albumin [Mass/Vol] 4.3 g/dL 3.2 - 5.3 g/dL [facility] ALP [Catalytic activity/Vol] 63 U/L 39 - 130 U/L [facility] ALT No additional P-5'-P [Catalytic activity/Vol] 15 U/L 0 - 31 U/L [facility] Anion gap [Moles/Vol] 6 mmol/L 5 - 15 mmol/L [facility] AST [Catalytic activity/Vol] 15 U/L 0 - 41 U/L [facility] Bilirubin [Mass/Vol] 0.3 mg/dL 0.3 - 1 .2 mg/dL [facility] Calcium [Mass/Vol] 9.1 mg/dL 8.5 - 10. 5 mg/dL [facility] Chloride [Moles/Vol] 105 mmol/L 98 - 10 9 mmol/L [facility] CO2 [Moles/Vol] 31 mmol/L 22 - 32 mmol/L [facility] Creatinine [Mass/Vol] 0.65 mg/dL 0.40 - 1.00 mg/dL [facility] Comment on above: METHOD TRACEABLE TO IDMS STANDARD eGFR (CKD-EPI)non-race dependent - PINF [facility] Comment on above: Reported eGFR is based on the CKD-EPI 2020 equation that does not use a race coefficient. Glucose [Mass/Vol] 101 mg/dL High 65 - 99 mg/dL [facility] Potassium [Moles/Vol] 4.4 mmol/L 3.5 - 5.0 mmol/L [facility] Protein [Mass/Vol] 6.9 g/dL 6.0 - 8.0 g/dL [facility] Sodium [Moles/Vol] 142 mmol/L 134 - 146 mmol/L [facility] Urea nitrogen [Mass/Vol] 18 mg/dL 5 - 27 mg/dL [facility] Lipid 1996 panelon 4 Cholesterol [Mass/Vol] 140 mg/dL Low 150 - 200 mg/dL [facility] Cholesterol in HDL [Mass/Vol] 55 mg/dL 39 - PINF mg/dL [facility] Comment on above: HDL <40 mg/dL - High Risk HDL > or = 40mg/dL- Desirable HDL >60 mg/dL - Negative Risk Cholesterol in LDL [Mass/Vol] 69 mg/dL NINF - 130 mg/dL [facility] Comment on above: LDL <100 mg/dL - Desirable LDL >160 mg/dL - High Risk Cholesterol in VLDL [Mass/Vol] 16 mg/dL 0 - 30 mg/dL [facility] Cholesterol.total/Cho lesterol in HDL [Mass ratio] 2.5 {ratio} 1.0 - 5.0 [facility] Triglyceride [Mass/Vol] 82 mg/dL 27 - 150 mg/dL [facility] Cholesterol [Mass/Vol] 140 mg/dL Low 150-200 [facility] Comment on above: Performed By: #### C , 83680-3, THYR #### [facility] ([id number]) [address] [facility] [address] [address] [place] [address] Cholesterol in HDL [Mass/Vol] 55 mg/dL Normal >39 [facility] Comment on above: Result Comment: HDL <40 mg/dL - High Risk HDL > or = 40mg/dL- Desirable HDL >60 mg/dL - Negative Risk Performed By: #### Renee HARRIS, 42492-6, THYR #### [facility] ([id number]) [address] [facility] [address] [place] [address] Cholesterol in LDL [Mass/Vol] 69 mg/dL Normal <130 [facility] Comment on above: Result Comment: LDL <100 mg/dL - Desirable LDL >160 mg/dL - High Risk Performed By: #### Renee HARRIS, 01156-1, THYR #### [facility] ([id number]) [address] [place] [address] Cholesterol in VLDL [Mass/Vol] 16 mg/dL Normal 0-30 [facility] Comment on above: Performed By: #### Renee HARRIS, 26439-8, THYR #### [facility] ([id number]) [address], [facility] [address] [place] [address] CHOLESTEROL:HDL 2.5 Normal 1.0-5.0 [facility] Comment on above: Performed By: #### Renee HARRIS, 10264-7, THYR #### [facility] ([id number]) [address], [facility] [address] [place] [address] Triglyceride [Mass/Vol] 82 mg/dL Normal 27-150 [facility] Comment on above: Performed By: #### Renee HARRIS, 63377-2, THYR #### [facility] ([id number]) [address], [address] [address] No Panel Informationon 05-30 Interpretation and review of laboratory results Abnormal [facility] THYROID PROFILEon 05-30-2023 Free T4 [Mass/Vol] 0.92 ng/dL Normal 0.61-1.60 [facility] Comment on above: Performed By: #### C , 84083-0, THYR #### [facility] ([id number]) [address] [place] [address] TSH 0.95 uIU/mL Normal 0.49-4.67 [facility] Comment on above: Performed By: #### C , 15216-0, THYR #### [facility] ([id number]) [address] [place] [address] Thyroid profile includes TSH FT4on 05-30-2023 Free T4 [Mass/Vol] 0.92 ng/dL 0.61 - 1. 60 ng/dL [facility] TSH Qn 0.95 m[IU]/L [facility] MRI SHOULDER LT WO CONon MRI SHOULDER [...] RONALDO JORGENSEN Date: 2022-05-18 09:45 Normal [facility] METABOLIC PANE [facility] 08-29-2021 Albumin [Mass/Vol] 4.0 g/dL Normal 3.6-5.1 [facility] Comment on above: Performed By: #### 7 600, 927, 93367 #### [facility] [place] [address] Machine I Coremaker: Finn Akins MD Albumin/Globulin [Mass ratio] 1.9 {ratio} Normal 1.0-2.5 [facility] Comment on above: Performed By: #### 7 600, 927, 30263 #### [facility] [place] [address] Machine [employer] Coremaker: Finn Akins MD ALP [Catalytic activity/Vol] 56 U/L Normal 37-153 [facility] Comment on above: Performed By: #### 7 600, 927, 27496 #### [facility] [place] [address] Machine [employer] Coremaker: Finn Akins MD ALT [Catalytic activity/Vol] 18 U/L Normal 6-29 [facility] Comment on above: Performed By: #### 7 600, 927, 13646 #### [facility] [place] [address] Machine [employer] Coremaker: Finn Akins MD AST [Catalytic activity/Vol] 18 U/L Normal 10-35 [facility] Comment on above: Performed By: #### 7 600, 927, 48229 #### [facility] [place] [address] Machine I Coremaker: Finn Akins MD Bilirubin [Mass/Vol] 0.4 mg/dL Normal 0.2-1.2 [facility] Comment on above: Performed By: #### 7 600, 927, 70090 #### [facility] [place] [address] Machine [employer] Coremaker: Finn Akins MD BUN/CREATININE RATIO NOT APPLICABLE Normal 6-22 [facility] Comment on above: Performed By: #### 7 600, 927, 29582 #### [facility] [place] [address] Machine I Coremaker: Finn Akins MD Calcium [Mass/Vol] 8.8 mg/dL Normal 8.6-10.4 [facility] Comment on above: Performed By: #### 7 600, 927, 54659 #### [facility] [place] [address] Machine [employer] Coremaker: Finn Akins MD Chloride [Moles/Vol] 106 mmol/L Normal 98-110 [facility] Comment on above: Performed By: #### 7 600, 927, 54819 #### [facility] [place] [address] Machine I Coremaker: Finn Akins MD CO2 [Moles/Vol] 30 mmol/L Normal 20-32 [facility] Comment on above: Performed By: #### 7 600, 927, 22544 #### [facility] [place] [address] Machine [employer] Coremaker: Finn Akins MD Creatinine [Mass/Vol] 0.67 mg/dL Normal 0.60-0.93 [facility] Comment on above: Result Comment: For patients >49 years of age, the reference limit for Creatinine is approximately 13% higher for people identified as -Guinean. Performed By: #### 7 600, 927, 92340 #### [facility] [place] [address] Machine [employer] Coremaker: Finn Akins MD eGFR NON-AFR. MONTSERRATIAN 87 mL/min/1.73m2 Normal > OR = 60 [facility] Comment on above: Performed By: #### 7 600, 927, 25866 #### [facility] [place] [address] Machine I Coremaker: Finn Akins MD GFR/1.73 sq M.predicted among blacks MDRD (S/P/Bld) [Vol rate/Area] 101 mL/min/{1.73_m2} Normal > OR = 60 [facility] Comment on above: Performed By: #### 7 600, 927, 24888 #### [facility] [place] [address] Machine I Coremaker: Finn Akins MD Globulin (S) [Mass/Vol] 2.1 g/dL Normal 1.9-3.7 [facility] Comment on above: Performed By: #### 7 600, 927, 66160 #### [facility] [place] [address] Machine I Coremaker: Finn Akins MD Glucose [Mass/Vol] 96 mg/dL Normal 65-99 [facility] Comment on above: Result Comment: Fasting reference interval Performed By: #### 7 600, 927, 71745 #### [facility] [place] [address] Machine I Coremaker: Finn Akins MD Potassium [Moles/Vol] 3.9 mmol/L Normal 3.5-5.3 [facility] Comment on above: Performed By: #### 7 600, 927, 20616 #### [facility] [place] [address] Machine I Coremaker: Finn Akins MD Protein [Mass/Vol] 6.1 g/dL Normal 6.1-8.1 [facility] Comment on above: Performed By: #### 7 600, 927, 86024 #### [facility] [place] [address] Machine I Coremaker: Finn Akins MD Sodium [Moles/Vol] 143 mmol/L Normal 135-146 [facility] Comment on above: Performed By: #### 7 600, 927, 80757 #### [facility] [address], [address] [place] [address] Machine I Coremaker: Finn Akins MD Urea nitrogen [Mass/Vol] 17 mg/dL Normal 7- [facility] Comment on above: Performed By: #### 7 600, 927, 27673 #### [facility] [address], [address] [place] [address] Machine I Coremaker: Finn Akins MD LIPID PANEL, [facility] 05- Cholesterol [Mass/Vol] 126 mg/dL Normal <200 [facility] Comment on above: Order Comment: FASTI NG:YES FASTING: YES Performed By: #### 7 600, 927, 37873 #### [facility] [address], [address] [place] [address] Machine I Coremaker: Finn Akins MD Cholesterol in HDL [Mass/Vol] 46 mg/dL Low > OR = 50 [facility] Comment on above: Order Comment: FASTI NG:YES FASTING: YES Performed By: #### 7 600, 927, 00196 #### [facility] [address], [address] [place] [address] Machine I Coremaker: Finn Akins MD Cholesterol in LDL [Mass/Vol] [...] LDL-C. Aguilar SS et al. MCKAY. 2013;310(19): 0490-5494 (http://education.Echo it.Colto/faq/YGQ014) Performed By: #### 7 600, 927, 17778 #### [facility] [address], [address] [place] [address] Machine I Coremaker: Finn Akins MD Cholesterol.total/Cho lesterol in HDL [Mass ratio] 2.7 {ratio} Normal <5.0 [facility] Comment on above: Order Comment: FASTI NG:YES FASTING: YES Performed By: #### 7 600, 927, 09310 #### [facility] [place] [address] Machine I Coremaker: Finn Akins MD NON HDL CHOLESTEROL 80 mg/dL (calc) Normal <130 [facility] Comment on above: Order Comment: FASTI NG:YES FASTING: YES Result Comment: For patients with diabetes plus 1 major ASCVD risk factor, treating to a non-HDL-C goal of <100 mg/dL (LDL-C of <70 mg/dL) is considered a therapeutic option. Performed By: #### 7 600, 927, 48771 #### [facility] [place] [address] Machine I Coremaker: Finn Akins MD Triglyceride [Mass/Vol] 86 mg/dL Normal <150 [facility] Comment on above: Order Comment: FASTI NG:YES FASTING: YES Performed By: #### 7 600, 927, 41576 #### [facility] [place] [address] Machine I Coremaker: Finn Akins MD VITAMIN B12on 08-29-2021 Cobalamin (Vitamin B12) [Mass/Vol] 184 pg/mL Low 200-1100 [facility] Comment on above: Performed By: #### 7 600, 927, 64008 #### [facility] [place] [address] Machine I Coremaker: Finn Akins MD BASIC METABOLIC PANELon Calcium [Mass/Vol] 9.2 mg/dL Normal 8.6-10.4 [facility] Comment on above: Performed By: #### 9 36, 46101, 63895 #### [facility] [place] [address] Machine I Coremaker: Finn Akins MD Chloride [Moles/Vol] 102 mmol/L Normal 98-110 [facility] Comment on above: Performed By: #### 9 , 54223, 23991 #### [facility] [address], [address] [place] [address] Machine I Coremaker: Finn Akins MD CO2 [Moles/Vol] 28 mmol/L Normal 20-32 [facility] Comment on above: Performed By: #### 9 , 89633, 18265 #### [facility] [address], [address] [place] [address] Machine I Coremaker: Finn Akins MD Creatinine [Mass/Vol] 0.56 mg/dL Low 0.60-0.[address] [facility] Comment on above: Result Comment: For patients >49 years of age, the reference limit for Creatinine is approximately 13% higher for people identified as -Guinean. Performed By: #### 01 09, 87296, 10560 #### [facility] [address], [address] [place] [address] Machine I Coremaker: Finn Akins MD eGFR NON-AFR. MONTSERRATIAN 93 mL/min/1.73m2 Normal > OR = 60 [facility] Comment on above: Performed By: #### 9 , 75396, 11893 #### [facility] [place] [address] Machine I Coremaker: Finn Akins MD GFR/1.73 sq M.predicted among blacks MDRD (S/P/Bld) [Vol rate/Area] 107 mL/min/{1.73_m2} Normal > OR = 60 [facility] Comment on above: Performed By: #### 9 27, [id number], [id number] #### [facility] [address], [address] [place] [address] Machine I Coremaker: Finn Akins MD Glucose [Mass/Vol] 97 mg/dL Normal 65-99 [facility] Comment on above: Result Comment: Fasting reference interval Performed By: #### 9 , [id number], [id number] #### [facility] [address], [address] [place] [address] Machine I Coremaker: Finn Akins MD Potassium [Moles/Vol] 3.8 mmol/L Normal 3.5-5.3 [facility] Comment on above: Performed By: #### 9 27, [id number], [id number] #### [facility] of [address], [address] [place] [address] Machine I Coremaker: Finn Akins MD Sodium [Moles/Vol] 140 mmol/L Normal 135-146 [facility] Comment on above: Performed By: #### 9 , [id number], [id number] #### [facility] of [address], [address] [place] [address] Machine I Coremaker: Finn Akins MD Urea nitrogen [Mass/Vol] 14 mg/dL Normal 7-25 [facility] Comment on above: Performed By: #### 9 , 02022, [id number] #### [facility] of [address], [address] [place] [address] Machine I Coremaker: Finn Akins MD Urea nitrogen/Creatinine [Mass ratio] 25 mg/mg High 6-22 [facility] Comment on above: Performed By: #### 9 , 06559, 64923 #### [facility] of [place] [address] Machine I Coremaker: Finn Akins MD TSH+FREE T4on 04-19-2021 Free T4 [Mass/Vol] 1.2 ng/dL Normal 0.8-1.8 [facility] Comment on above: Performed By: #### 9 , 70812, [id number] #### [facility] of [address], [address] [place] [address] Machine I Coremaker: Finn Akins MD TSH Qn 0.55 m[IU]/L Normal 0.40-4.50 [facility] Comment on above: Performed By: #### 9 , 23161, [id number] #### [facility] of [address], [address] [place] [address] Machine I Coremaker: Finn Akins MD VITAMIN B12on 04-19-2021 Cobalamin (Vitamin B12) [Mass/Vol] 133 pg/mL Low 200-1100 [facility] Comment on above: Performed By: #### 9 77, 44553, [id number] #### [facility] [address] [facility], [address] [place] [address] Machine I Coremaker: Finn Akins MD Vital Signs Date Time Vital Sign Value Performing Clinician Facility 05-19-2024 14:32-0500 Body height 149.9 cm Sangeetha Quick DO Work Phone: [facility] 05-19-2024 14:32-0500 Body mass index (BMI) [Ratio] 30.13 kg/m2 Sangeetha Quick DO Work Phone: [facility] 05-19-2024 14:32-0500 Body temperature 98.49 [degF] Sangeetha Quick DO Work Phone: [facility] 05-19-2024 14:32-0500 Body weight 67.68 kg Sangeetha Quick DO Work Phone: [facility] 05-19-2024 14:32-0500 Diastolic blood pressure 78 mm[Hg] Sangeetha Quick DO Work Phone: [facility] 05-19-2024 14:32-0500 Heart rate 79 /min Sangeetha Quick DO Work Phone: [facility] 05-19-2024 14:32-0500 SaO2% (BldA) [Mass fraction] 97 % Sangeetha Quick DO Work Phone: [facility] 05-19-2024 14:32-0500 Systolic blood pressure 110 mm[Hg] Sangeetha Quick DO Work Phone: [facility] 02-27-2024 13:55-0500 Body height 149.9 cm Sangeetha Quick DO Work Phone: [facility] 02-27-2024 13:55-0500 Body mass index (BMI) [Ratio] 29.49 kg/m2 Sangeetha Quick DO Work Phone: [facility] 02-27-2024 13:55-0500 Body weight 66.22 kg Sangeetha Quick DO Work Phone: [facility] 02-27-2024 13:55-0500 Diastolic blood pressure 56 mm[Hg] Sangeetha Quick DO Work Phone: [facility] [employer] 02-27-2024 13:55-0500 Systolic blood pressure 107 mm[Hg] Sangeetha Quick DO Work Phone: [facility] 02-06-2024 14:17-0400 Body height 149.9 cm Pfo 4 [facility] 02-06-2024 14:17-0400 Body mass index (BMI) [Ratio] 29.63 kg/m2 Pfo 4 [facility] 02-06-2024 14:17-0400 Body temperature 98.2 [degF] Pfo 4 [facility] 02-06-2024 14:17-0400 Body weight 66.59 kg Pfo 4 [facility] 02-06-2024 14:17-0400 Diastolic blood pressure 56 mm[Hg] Pfo 4 [facility] 02-06-2024 14:17-0400 Heart rate 79 /min Pfo 4 [facility] 02-06-2024 14:17-0400 Respiratory rate 16 /min Pfo 4 [facility] 02-06-2024 14:17-0400 SaO2% (BldA) [Mass fraction] 99 % Pfo 4 [facility] 02-06-2024 14:17-0400 Systolic blood pressure 107 mm[Hg] Pfo 4 [facility] 01-20-2024 11:57-0400 Body height 149.9 cm Sangeetha Quick DO Work Phone: [facility] 01-20-2024 11:57-0400 Body mass index (BMI) [Ratio] 28.92 kg/m2 Sangeetha Quick DO Work Phone: [facility] 01-20-2024 11:57-0400 Body temperature 97.3 [degF] Sangeetha Quick DO Work Phone: [facility] 01-20-2024 11:57-0400 Body weight 64.95 kg Sangeetha Quick DO Work Phone: [facility] 01-20-2024 11:57-0400 Diastolic blood pressure 80 mm[Hg] Sangeetha Quick DO Work Phone: [facility] 01-20-2024 11:57-0400 Heart rate 65 /min Sangeetha Quick DO Work Phone: [facility] 01-20-2024 11:57-0400 Respiratory rate 18 /min Sangeetha Quick DO Work Phone: [facility] 01-20-2024 11:57-0400 SaO2% (BldA) [Mass fraction] 100 % Sangeetha Quick DO Work Phone: [facility] 01-20-2024 11:57-0400 Systolic blood pressure 150 mm[Hg] Sangeetha Quick DO Work Phone: [facility] 12-24-2023 12:43-0400 Body height 149.9 cm Sangeetha Quick DO Work Phone: [facility] 12-24-2023 12:43-0400 Body mass index (BMI) [Ratio] 27.91 kg/m2 Sangeetha Quick DO Work Phone: [facility] 12-24-2023 12:43-0400 Body temperature 98.6 [degF] Sangeetha Quick DO Work Phone: [facility] 12-24-2023 12:43-0400 Body weight 62.69 kg Sangeetha Quick DO Work Phone: [facility] 12-24-2023 12:43-0400 Diastolic blood pressure 70 mm[Hg] Sangeetah Quick DO Work Phone: [facility] 12-24-2023 12:43-0400 Heart rate 83 /min Sangeetha Dunbars DO Work Phone: [facility] 12-24-2023 12:43-0400 SaO2% (BldA) [Mass fraction] 99 % Sangeetha Dunbars DO Work Phone: [facility] 12-24-2023 12:43-0400 Systolic blood pressure 120 mm[Hg] Sangeetha Dunbars DO Work Phone: [facility] 07-25-2023 10:52-0400 Body height 149.9 cm Sangeetha Jiménezhas DO Work Phone: [facility] 07-25-2023 10:52-0400 Body mass index (BMI) [Ratio] 30.98 kg/m2 Sangeetha Dunbars DO Work Phone: [facility] 07-25-2023 10:52-0400 Body temperature 99 [degF] Sangeetha Dunbars DO Work Phone: [facility] 07-25-2023 10:52-0400 Body weight 69.58 kg Sangeetha Dunbars DO Work Phone: [facility] 07-25-2023 10:52-0400 Diastolic blood pressure 72 mm[Hg] Sangeetha Dunbars DO Work Phone: [facility] 07-25-2023 10:52-0400 Heart rate 68 /min Sangeetha Dunbars DO Work Phone: [facility] 07-25-2023 10:52-0400 SaO2% (BldA) [Mass fraction] 98 % Sangeetha Dunbars DO Work Phone: [facility] 07-25-2023 10:52-0400 Systolic blood pressure 118 mm[Hg] Sangeetha Jiménezhas DO Work Phone: [facility] 07-01-2023 15:40-0400 Body height 149.9 cm Sangeetha Dunbars DO Work Phone: [facility] [employer] 07-01-2023 15:40-0400 Body mass index (BMI) [Ratio] 31.1 kg/m2 Sangeetha Dunbars DO Work Phone: [facility] [employer] 07-01-2023 15:40-0400 Body temperature 98.2 [degF] Sangeetha Jiménezhas DO Work Phone: [facility] [employer] 07-01-2023 15:40-0400 Body weight 69.85 kg Sangeetha Dunbars DO Work Phone: [facility] [employer] 07-01-2023 15:40-0400 Diastolic blood pressure 70 mm[Hg] Sangeetha Dunbars DO Work Phone: [facility] 07-01-2023 15:40-0400 Heart rate 87 /min Sangeetha Dunbars DO Work Phone: [facility] [employer] 07-01-2023 15:40-0400 SaO2% (BldA) [Mass fraction] 99 % Sangeetha Dunbars DO Work Phone: [facility] [employer] 07-01-2023 15:40-0400 Systolic blood pressure 136 mm[Hg] Sangeetha Dunbars DO Work Phone: [facility] 06-25-2023 11:23-0400 Body height 149.9 cm Sangeetha Dunbars DO Work Phone: [facility] [employer] 06-25-2023 11:23-0400 Body mass index (BMI) [Ratio] 31.06 kg/m2 Sangeetha Jiménezhas DO Work Phone: [facility] 06-25-2023 11:23-0400 Body temperature 98.29 [degF] Sangeetha Jiménezhas DO Work Phone: [facility] 06-25-2023 11:23-0400 Body weight 69.76 kg Sangeetha Dunbars DO Work Phone: [facility] 06-25-2023 11:23-0400 Diastolic blood pressure 70 mm[Hg] [facility]-25-[facility] 11:23-0400 Heart rate 73 /min [facility] 06-25-2023 11:23-0400 SaO2% (BldA) [Mass fraction] 97 % [facility] 06-25-2023 11:23-0400 Systolic blood pressure 120 mm[Hg] [facility] 05-30-2023 10:29-0500 Body height 149.9 cm [facility] 05-30-2023 10:29-0500 Body mass index (BMI) [Ratio] 30.7 kg/m2 Sangeetha Quick DO Work Phone: [facility] [employer] 05-30-2023 10:29-0500 Body temperature 98.1 [degF] [facility] 05-30-2023 10:29-0500 Body weight 68.95 kg [facility]etha Quick [facility] 05-30-2023 10:29-0500 Diastolic blood pressure 70 mm[Hg] [facility] Quick [facility] 05-30-2023 10:29-0500 Heart rate 71 /min [facility] Quick [facility] 05-30-2023 10:29-0500 SaO2% (BldA) [Mass fraction] 96 % [facility] Quick [facility] 05-30-2023 10:29-0500 Systolic blood pressure 120 mm[Hg] Sangeetha Quick DO Work Phone: [facility] Encounters Encounter Date Encounter Type Care Provider Facility Start: 06-09-2024 End: 06-09-2024 Refill Sangeetha Quick DO Work Phone: [facility] Comment on above: Hyperlipidemia, unsp ecified Start: 05-22-2024 End: 05-22-2024 [facility] Start: 05-19-2024 End: 05-19-2024 ambulatory [facility] Start: 05-19-2024 End: 05-19-2024 Office outpatient visit 25 minutes Sangeetha Quick DO Work Phone: [facility] Comment on above: Hypothyroidism, unsp ecified type (Primary Dx); Right foot pain; Vitamin D deficiency; Cobalamin deficiency; Lichen planus atrophicus Start: 05-19-2024 End: 05-19-2024 [facility] Start: 02-27-2024 End: 02-27-2024 [facility] Start: 02-27-2024 End: 02-27-2024 Patient encounter procedure Sangeetha Quick DO Work Phone: [facility] Comment on above: Encounter for subseq uent annual wellness visit (AWV) in Medicare patient (Primary Dx) Start: 02-25-2024 End: 02-25-2024 Refill Sangeetha Quick DO Work Phone: [facility] Comment on above: Hypothyroidism; Deficiency of other specified B group vitamins; Vitamin D deficiency, unspecified; Hordeolum externum of right upper eyelid Start: 02-06-2024 End: 02-06-2024 [facility] Comment on above: Age-related osteopor osis without current pathological fracture (Primary Dx) Start: 02-05-2024 End: 02-05-2024 [facility] Start: 02-03-2024 End: 02-03-2024 Telephone encounter Fatoumata Chacko [facility] Start: 01-22-2024 End: 01-22-2024 Telephone encounter Sangeetha Quick DO Work Phone: [facility] Start: 01-20-2024 End: 01-20-2024 Bamboo flowsheet Jr. Angella Mckeon DO Work Phone: [facility] Start: 01-20-2024 End: 01-20-2024 Bamboo flowsheet Jr. Angella Mckeon DO Work Phone: [facility] Start: 01-20-2024 End: 01-20-2024 ambulatory [facility] Start: 01-20-2024 End: 01-20-2024 Office outpatient [...] 01-07-2024 End: 01-07-2024 Bamboo flowsheet Kathryn Cagle SHEETER OPERATOR Work Phone: [facility] Start: 01-07-2024 End: 01-07-2024 Office outpatient visit 10 minutes Kathryn Cagle SHEETER OPERATOR Work Phone: [facility] Comment on above: Primary localized os teoarthritis of left knee (Primary Dx); Left knee pain, unspecified chronicity Start: 01-07-2024 End: 01-07-2024 ambulatory KATHRYN CAGLE Not Available Start: 12-26-2023 End: 12-26-2023 ambulatory [facility] Start: 12-25-2023 End: 12-25-2023 ambulatory [facility] Start: 12-24-2023 End: 12-24-2023 Office outpatient visit 25 minutes Sangeetha Quick DO Work Phone: [facility] Comment on above: Diarrhea, unspecifie d type (Primary Dx); Primary osteoarthritis of knees, bilateral; Vitamin D deficiency; Cobalamin deficiency; Age-related osteoporosis without current pathological fracture; Nausea and vomiting, unspecified vomiting type Start: 12-24-2023 End: 12-24-2023 ambulatory [facility] Start: 12-23-2023 End: 12-24-2023 Telephone encounter Marcia Holder [facility] Comment on above: Er Follow-up Start: 2023 End: 2023 Emergency department patient visit [facility] Start: 12-11-2023 End: 12-12-2023 Telephone encounter Dipika Sagastume [facility] Start: 09-10-2023 End: 09-10-2023 ambulatory KATHR[facility] CAGLE Not Available Start: 08-21-2023 End: 08-23-2023 Telephone encounter Dipika Sagastume [facility] Start: 07-25-2023 End: 07-25-2023 Office outpatient visit 15 minutes Sangeetha Quick DO Work Phone: [facility] Comment on above: Osteoarthritis of le ft shoulder, unspecified osteoarthritis type (Primary Dx) Start: 07-25-2023 End: 07-25-2023 ambulatory [facility] Start: 07-01-2023 End: 07-01-2023 Office outpatient visit 25 minutes Sangeetha Quick DO Work Phone: [facility] Comment on above: 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, bilateral (Primary Dx); Osteoarthritis of left shoulder, unspecified osteoarthritis type; Immunization due Start: 07-01-2023 End: 07-01-2023 ambulatory [facility] Start: 06-27-2023 End: 06-27-2023 ambulatory [facility] Start: 06-25-2023 End: 06-25-2023 ambulatory [facility] Start: 06-25-2023 End: 06-25-2023 Office outpatient visit 25 minutes Sangeetha Quick DO Work Phone: [facility] Comment on above: Localized osteoarthr itis of left knee (Primary Dx) Start: 05-30-2023 End: 05-30-2023 ambulatory [facility] Start: 05-30-2023 End: 05-30-2023 ambulatory [facility] Start: 05-30-2023 End: 05-30-2023 Office outpatient visit 25 minutes Sangeetha Quick DO Work Phone: [facility] Comment [...] Start: 05-19-2025 Depression Screening Depression Scre ening [facility] Start: 05-19-2025 Fall Risk Screening Fall Risk Screen ing [facility] Start: 05-19-2025 Tobacco Screening Tobacco Screening [facility] Start: 03-02-2025 End: 03-02-2025 Patient encounter procedure 03/02/2025 2:20 PM EST Office Visit [facility] [address] [place] [address] [facility] Start: 02-26-2025 Depression Screening Depression Scre ening [facility] Start: 02-26-2025 Fall Risk Screening Fall Risk Screen ing [facility] Start: 02-26-2025 Medicare Annual Well ness Visit Medicare Annual Wellness Visit [facility] Start: 01-19-2025 Adult BMI Screening Adult BMI Screen ing [facility] Start: 01-19-2025 Depression Screening Depression Scre ening [facility] Start: 01-19-2025 Fall Risk Screening Fall Risk Screen ing [facility] Start: 01-19-2025 Tobacco Screening Tobacco Screening [facility] Start: 12-23-2024 Adult BMI Screening Adult BMI Screen ing [facility] Start: 12-23-2024 Depression Screening Depression Scre ening [facility] Start: 12-23-2024 Fall Risk Screening Fall Risk Screen ing [facility] Start: 12-23-2024 Tobacco Screening Tobacco Screening [facility] Start: 07-24-2024 Adult BMI Screening Adult BMI Screen ing [facility] Start: 07-24-2024 Depression Screening Depression Scre ening [facility] Start: 07-24-2024 Fall Risk Screening Fall Risk Screen ing [facility] Start: 07-24-2024 Tobacco Screening Tobacco Screening [facility] Start: 06-30-2024 Adult BMI Screening Adult BMI Screen ing [facility] Start: 06-30-2024 Depression Screening Depression Scre ening [facility] Start: 06-30-2024 Fall Risk Screening Fall Risk Screen ing [facility] Start: 06-30-2024 Tobacco Screening Tobacco Screening [facility] Start: 06-24-2024 Adult BMI Screening Adult BMI Screen ing [facility] Start: 06-24-2024 Depression Screening Depression Scre ening [facility] Start: 06-24-2024 Fall Risk Screening Fall Risk Screen ing [facility] Start: 06-24-2024 Tobacco Screening Tobacco Screening [facility] Start: 05-30-2024 Adult BMI Screening Adult BMI Screen ing [facility] Start: 05-30-2024 Depression Screening Depression Scre ening [facility] Start: 05-30-2024 Fall Risk Screening Fall Risk Screen ing [facility] Start: 05-30-2024 Tobacco Screening Tobacco Screening [facility] Start: 05-22-2024 COVID-19 Vaccine ( season) COVID-19 Vaccine () [facility] Start: 05-21-2024 DTaP,Tdap and Td Vaccines (2 - Td or Tdap) DTaP,Tdap and Td Vaccines (2 - Td or Tdap) [facility] Start: 05-19-2024 End: 05-19-2025 XR Foot - right 3 Views X-ray foot right minimum 3 views Imaging Routine Right foot pain Expected: 05/19/2024, Expires: 05/19/2025 [facility] Work Phone: Comment on above: Expected: 05/19/2024 , Expires: 05/19/2025 Start: 03-19-2024 End: 03-19-2024 Patient encounter procedure 03/19/2024 4:15 PM EST Office Visit [facility] [address] [place] [address] Sangeetha Quick, [address] [place] [address] [facility] Start: 03-16-2024 End: 03-16-2024 Patient encounter procedure 03/16/2024 10:00 AM EST Office Visit [facility] [address] [place] [id number] Kathryn Cagle, SHEETER OPERATOR [address] [place], [place] [id number] [facility] Start: 02-27-2024 End: 02-27-2024 Patient encounter procedure 02/27/2024 1:40 PM EST [facility] [address] [place] [address] [facility] Start: 01-20-2024 End: 01-20-2024 Patient encounter procedure [facility] Comment on above: Arrived Start: 01-07-2024 End: 01-07-2024 Patient encounter procedure 01/07/2024 10:30 AM EDT Office Visit [facility] [address] [id number] Kathryn Cagle, SALLIE [address] [place], [place] [phone] Arrived [facility] Comment on above: Arrived Start: 12-26-2023 End: 12-26-2023 Patient encounter procedure 12/26/2023 1:45 PM EDT Appointment [facility] DEXA [address] [place] [id number] Sangeetha Quick, DO [address] [place] [address] [facility] Start: 12-24-2023 End: 12-23-2024 GI Panel(stool pathogen panel) GI Panel(stool pathogen panel) Lab Routine Diarrhea, unspecified type Expected: 12/24/2023, Expires: 12/23/2024 [facility] Work Phone: Comment on above: Expected: 12/24/2023 , Expires: 12/23/2024 Start: 12-24-2023 End: 12-24-2023 Patient encounter procedure 12/24/2023 1:00 PM EDT [facility] [address] [place] [phone] Sangeetha Quick, DO [address] [facility] [place] [address] [facility] Start: 12-15-2023 COVID-19 Vaccine ( season) COVID-19 Vaccine () [facility] Start: 12-15-2023 Influenza vaccination [facility] Start: 12-03-2023 End: 12-03-2023 Patient encounter procedure 12/03/2023 2:00 PM EDT [facility] [address] [place] [address] [facility] Start: 11-28-2023 Medicare Annual Well ness Visit Medicare Annual Wellness Visit [facility] Start: 07-14-2023 Influenza vaccination Influenza Vacc ine [facility] Comment on above: Postponed from 12/14 (Vaccine Not Available) Start: 06-25-2023 End: 06-24-2024 XR Knee - left 3 Views X-ray knee left 3 views Imaging Routine Localized osteoarthritis of left knee Expected: 06/25/2023, Expires: 06/24/2024 [facility] Work Phone: Comment on above: Expected: 06/25/2023 , Expires: 06/24/2024 Start: 12-14-2022 COVID-19 Vaccine ( season) COVID-19 Vaccine ( season) [facility] Start: 12-14-2022 Influenza vaccination Influenza Vacc ine [facility] Start: 12-20-1997 Administration of varicella zoster vaccine Zoster (Shingles) Vaccine (1 of 2) [facility] Start: 12-20-1965 Adult BMI Follow Up Plan Adult BMI Follow Up Plan [facility] End: 12-23-2024 Basic metabolic 2000 panel - Serum or Plasma Basic Metabolic Panel Lab Routine Diarrhea, unspecified type 1 Occurrences starting 12/24/2023 until 12/23/2024 [facility] Comment on above: 1 Occurrences starti ng 12/24/2023 until 12/23/2024 End: 05-19-2025 CBC W Auto Differential panel - Blood CBC auto differential Lab Routine Hypothyroidism, unspecified type 1 Occurrences starting 05/19/2024 until 05/19/2025 [facility] Comment on above: 1 Occurrences starti ng 05/19/2024 until 05/19/2025 End: 05-19-2025 Comprehensive metabolic 2000 panel - Serum or Plasma Comprehensive metabolic panel Lab Routine Hypothyroidism, unspecified type 1 Occurrences starting 05/19/2024 until 05/19/2025 [facility] Comment on above: 1 Occurrences starti ng 05/19/2024 until 05/19/2025 End: 05-19-2025 Cyanocobalamin vitamin b-12 Vitamin B12 Lab Routine Cobalamin deficiency 1 Occurrences starting 05/19/2024 until 05/19/2025 [facility] Comment on above: 1 Occurrences starti ng 05/19/2024 until 05/19/2025 End: 12-23-2024 Cyanocobalamin vitamin b-12 Vitamin B12 Lab Routine Cobalamin deficiency 1 Occurrences starting 12/24/2023 until 12/23/2024 [facility] Comment on above: 1 Occurrences starti ng 12/24/2023 until 12/23/2024 End: 05-19-2025 Thyroid profile includes TSH FT4 Thyroid profile includes TSH FT4 Lab Routine Hypothyroidism, unspecified type 1 Occurrences starting 05/19/2024 until 05/19/2025 [facility] Comment on above: 1 Occurrences starti ng 05/19/2024 until 05/19/2025 End: 05-19-2025 Vitamin D 25 hydroxy Vitamin D 25 hydroxy Lab Routine Vitamin D deficiency 1 Occurrences starting 05/19/2024 until 05/19/2025 [facility] Comment on above: 1 Occurrences starti ng 05/19/2024 until 05/19/2025 Immunizations Immunization Date Immunization Notes Care Provider Fa cili 01-20-2024 Covid-19, Mrna, Lnp- s, Pf,christian-sucrose,30 Mcg/0.3ml Fall Sangeetha Dunbars DO Work Phone: [facility] 01-20-2024 Seasonal trivalent influenza vaccine, adjuvanted, preservative free Sangeetha Dunbars DO Work Phone: [facility] 01-20-2024 Immunization, In Clinic,; Translations: [Drug or medicament (substance)] Sangeetha Dunbars DO Work Phone: [facility] 01-22-2022 influenza virus vacc ine, unspecified formulation Kathryn Cagle NP Work Phone: [facility] 04-24-2017 Influenza, injectabl e, Madin [place] Canine Kidney, preservative free, quadrivalent Sangeetha Dunbars DO Work Phone: [facility] 04-24-2017 influenza virus vacc ine, unspecified formulation Sangeetha Dunbars DO Work Phone: [facility] 03-15-2016 pneumococcal polysaccharide vaccine, 23 valent Sangeetha Dunbars DO Work Phone: [facility] 01-11-2016 influenza, seasonal, injectable, preservative free Sangeetha Dunbars DO Work Phone: [facility] 01-05-2015 influenza, seasonal, injectable, preservative free Sangeetha Dunbars DO Work Phone: [facility] 01-05-2015 pneumococcal conjuga te vaccine, 13 valent Sangeetha Dunbars DO Work Phone: [facility] 05-21-2014 pneumococcal polysaccharide vaccine, 23 valent Sangeetha Jiménezhas DO Work Phone: [facility] 05-21-2014 tetanus toxoid, redu mary diphtheria toxoid, and acellular pertussis vaccine, adsorbed Sangeetha Dunbars DO Work Phone: [facility] Payers Date Payer Category Payer Managed Care Other (unspecified) [employer] [id number] 2021 Commercial Managed C are - POS [employer] [id number] 2021 Private Health Insurance [id number] 2010 Medicare [id number] [id number] 1959 Medicare [id number] 1959 Private Health Insurance CLI [id number] 1947 Unknown [id number] 2.16.840.1.181972.3.579 .2.593 1947 Unknown [id number] 2.16.840.1.917207.3.579 .2.593 1947 Unknown [id number] 2.16.840.1.480877.3.579 .2.593 1947 Unknown [id number] 2.16.840.1.593123.3.579 .2.593 1947 Unknown [id number] 2.16.840.1.052554.3.579 .2.593 1947 Unknown [id number] 2.16.840.1.119306.3.579 .2.593 1947 Unknown [id number] 2.16.840.1.766835.3.579 .2.593 1947 Unknown [id number] 2.16.840.1.262655.3.579 .2.593 1947 Unknown [id number] 2.16.840.1.522136.3.579 .2.593 1947 Unknown [id number] 2.16.840.1.184550.3.579 .2.593 1947 Unknown [id number] 2.16.840.1.583375.3.579 .2.593 1947 Unknown [id number] 2.16.840.1.172117.3.579 .2.593 1947 Unknown [id number] 2.16.840.1.096119.3.579 .2.593 1947 Unknown [id number] 2.16.840.1.465047.3.579 .2.593 1947 Unknown [id number] 2.16.840.1.976480.3.579 .2.593 1947 Unknown [id number] 2.16.840.1.121493.3.579 .2.1259 1947 Unknown [id number] 2.16.840.1.231921.3.579 .2.1259 1947 Unknown [id number] 2.16.840.1.613955.3.579 .2.1259 1947 Unknown [id number] 2.16.840.1.163233.3.579 .2.1259 1947 Unknown [id number] 2.16.840.1.179344.3.579 .2.1285 1947 Unknown [id number] 2.16.840.1.010450.3.579 .2.1285 1947 Unknown [id number] 2.16.840.1.585052.3.579 .2.1285 1947 Unknown [id number] 2.840.1.661366.3.579 .2.1285 1947 Unknown [id number] 2.840.1.913513.3.579 .2.1285 1947 Unknown [id number] 2.840.1.117536.3.579 .2.1285 1947 Unknown [id number] 2.840.1.117394.3.579 .2.1285 1947 Unknown [id number] 2.840.1.135866.3.579 .2.1285 1947 Unknown [id number] 2.840.1.917765.3.579 .2.1285 1947 Unknown [id number] 2.840.1.117511.3.579 .2.1285 1947 Unknown [id number] 2.840.1.948199.3.579 .2.1285 1947 Unknown [id number] 2.840.1.563232.3.579 .2.1285 1947 Unknown [id number] 2.840.1.787398.3.579 .2.1285 1947 Unknown [id number] 2.16840.1.845801.3.579 .2.1285 1947 Unknown [id number] 2.840.1.354213.3.579 .2.1285 1947 Unknown [id number] 2.16.840.1.700364.3.579 .2.1286 1947 Unknown [id number] 2.16.840.1.672201.3.579 .2.1286 1947 Unknown [id number] 2.16.840.1.482969.3.579 .2.1286 Social History Date Type Detail Facility Start: 05-14-2022 End: 01-07-2024 Tobacco smoking status [facility] Never smoked tobacco [facility] Work Phone: Start: 05-14-2022 End: 01-07-2024 Tobacco use and exposure Smokeless tobacco non-user [facility] Start: 01-07-2024 End: 01-20-2024 Alcoholic beverage intake Ex-drinker (finding) [facility] [employer] Start: 11-27-2022 End: 01-07-2024 History of Social function [facility] Start: 11-27-2022 End: 01-07-2024 Tobacco use panel [facility] Start: 1945 Sex assigned at Not on file [facility] Tobacco smoking stat [facility] Tobacco smoking consumption unknown [facility] Start: 01-20-2024 End: 05-19-2024 Alcoholic beverage intake Current non-drinker of alcohol (finding) [facility] Has the [employer], [employer], or water [employer] threatened to shut off services in your home in past 12Mo No [facility] Do you belong to any clubs or organizations such as mormonism groups, unions, fraternal or athletic groups, or school groups? Yes [facility] Are you now , , , , never or living with a partner? [facility] How often to you hav e a drink containing alcohol? Never [facility] How many standard dr inks containing alcohol do you have on a typical day? Patient does not drink [facility] How hard is it for y ou to pay for the very basics like food, housing, medical care, and heating Somewhat hard [facility] Do you feel stress - tense, restless, nervous, or anxious, or unable to sleep at night because your mind is troubled all the time - these days [OSQ] Rather much [facility] Start: 11-18-2014 Sex Female (finding) [facility] How hard is it for y ou to pay for the very basics like food, housing, medical care, and heating Hard [facility] Do you feel stress - tense, restless, nervous, or anxious, or unable to sleep at night because your mind is troubled all the time - these days [OSQ] Very much [facility] Clinical Notes 09-07-2021 to 05-19-2024 Sangeetha [...] 3. Vitamin D deficiency -currently taking D3 95211 units weekly because of low vitamin-D and [...] Testing No results found. Sangeetha Quick DO., [facility] Office: [phone] documented in this encounter [facility] 02-27-2024 History of Present illness Narrative [...] Do you have a durable power of risk intern?: Yes Cognitive Screening Do you have trouble [...] year (around 02/26/2025). documented in this encounter [facility] 02-06-2024 History of Present illness Narrative Pt here for reclast as scheduled. Has had in the past without issues. PIV initiated to [facility]. Brisk blood return. Flushes with ease. Reclast infused over 15 minutes without incident. Line flushed. PIV removed. Pt dc'd in stable ambulatory condition. documented in this encounter [facility] 02-03-2024 Miscellaneous Notes Called pt to let her know that she just has to go get her labs drawn at the hospital and the orders are already in. documented in this encounter [facility] 02-03-2024 Telephone encounter Note Called pt to let her know that she just has to go get her labs drawn at the hospital and the orders are already in. [facility] 01-22-2024 Miscellaneous Notes Patient called asking about an infusion at the [facility] that you were suppose to send over Message noted. The order was sent. She can call them at any time Mailbox is full documented in this encounter [facility] 01-22-2024 Telephone encounter Note Patient called asking about an infusion at the [facility] that you were suppose to send over [facility] 01-22-2024 Telephone encounter Note Message noted. The order was sent. She can call them at any time [facility] 01-22-2024 Telephone encounter Note Mailbox is full [facility] 01-20-2024 History of Present illness Narrative IM [...] Testing No results found. Sangeetha Quick DO., [facility] Office: [phone] [facility] History of Present illness Narrative HISTORY [...] Daily RT cholecalciferol (Vitamin D-3) 1.25 MG (42902 UT) capsule 1 capsule, Oral, Weekly ergocalciferol (Vitamin D2) 1.25 MG (43881 UT) capsule TAKE 1 CASPULE BY MOUTH [...] Use: Not At Risk (11/27/2022) [facility] Frequency of Alcohol Consumption: Never [...] Angella Mckeon D.O. documented in this encounter [facility] 01-07-2024 History of Present [...] 09/11/23 XRAY [facility] 06/27/23 XRAY (08/26/18) @ [facility] SY[facility]ISC (01/18/17) PER DR MCKEON PREVIOUS XRAYS (10/17/16) (AP STANDING) @ [facility]. PHYSICAL THERAPY @ [facility] 08/26/18 DR QUICK TX; TRAMADOL PRN- [...] Daily RT cholecalciferol (Vitamin D-3) 1.25 MG (65847 UT) capsule 1 capsule, Oral, Weekly Cyanocobalamin ER 1000 MCG tablet controlled-release 2 tablets, Oral, Daily ergocalciferol (Vitamin D2) 1.25 MG (99869 UT) capsule TAKE 1 CASPULE BY MOUTH [...] left knee showed severe varus deformity with csor-oz-gedr articulation to the medial joint line, flattening [...] develop for requiring urgent evaluation. Kathryn Cagle SURGICAL SPECIALIST-MERCHANDISE DISTRIBUTOR documented in this encounter [facility] 12-24-2023 History of Present [...] Vitamin D deficiency -currently on vitamin D2 15317 units weekly -no change today 4. Cobalamin [...] She was visiting her mother in the group home, and person there was having diarrhea and [...] Detected Not Detected^Not Detected Final Specific gravity [facility] 2023 1.015 1.003 - 1.035 Final Leukocyte esterase [facility] 2023 Trace (A) Negative^Negative Final Nitrite [facility] 2023 Negative Negative^Negative Final Ph 2023 5.5 5.0 - 8.5 Final Protein [facility] 2023 Negative Negative^Negative mg/dL Final Urine glucose [facility] 2023 Negative Negative^Negative mg/dL Final Ketones [facility] 2023 Trace (A) Negative^Negative mg/dL Final Urobilinogen [facility] 2023 0.2 <1.1 eu/dL Final Bilirubin [facility] 2023 Negative Negative^Negative Final Hemoglobin [facility] 2023 Small (A) Negative^Negative Final Other Testing No results found. Sangeetha Quick DO., [facility] Office: [phone] documented in this encounter [facility] 12-23-2023 Miscellaneous Notes ED Outreach This documentation is being used for Transition of Care purposes: Yes/No: Yes ED Outreach Date: December 23, 2023 ED Outreach Method: COMMUNICATION METHOD: Telephone ED Outreach Attempt: second ED Outreach Outcome: Contacted Patient Name of ED Facility: [facility] Date of ED Discharge: 2023 Discharge [...] with additional concerns. documented in this encounter [facility] 12-23-2023 Telephone encounter Note ED Outreach This documentation is being used for Transition of Care purposes: Yes/No: Yes ED Outreach Date: December 23, 2023 ED Outreach Method: COMMUNICATION METHOD: Telephone ED Outreach Attempt: second ED Outreach Outcome: Contacted Patient Name of ED Facility: [facility] Date of ED Discharge: 2023 Discharge [...] will contact the office with additional concerns. [facility] 12-11-2023 Miscellaneous Notes Patient came in today and asked if her mammogram could be sent to [facility]. Also she was wondering if you would check into her in fusion at [facility]. Message noted. [facility] at [facility]. She can call about setting up the infusion Informed patient via answering machine. documented in this encounter [facility] 12-11-2023 Telephone encounter Note Patient came in today and asked if her mammogram could be sent to [facility]. Also she was wondering if you would check into her in fusion at [facility]. [facility] 12-11-2023 Telephone encounter Note Message noted. The mammogram order was sent to [facility] I put a new order for the Reclast infusion at [facility]. She can call about setting up the infusion [facility] 12-11-2023 Telephone encounter Note Informed patient via answering machine. [facility] 08-21-2023 Miscellaneous Notes Patient called and the [...] time. Patient notified documented in this encounter [facility] 08-21-2023 Telephone encounter Note Patient called and the injection in her knee did not help. She wanted to know where to go from here. Does she need another apt? [facility] 08-21-2023 Telephone encounter Note Message noted. She needs to see orthopedics about a knee replacement. Whom does she wish to see? [facility] 08-21-2023 Telephone encounter Note LM for Patient to call back. [facility] 08-21-2023 Telephone encounter Note She would like to use Dr. Mckeon [facility] 08-21-2023 Telephone encounter Note Message noted. I made a referral to Dr. Mckeon. She can call his office and schedule at any time. [facility] 08-21-2023 Telephone encounter Note [facility] notified [facility] 07-25-2023 History of Present illness Narrative [...] Testing No results found. Sangeetha Quick DO., [facility] Office: [phone] [facility] History of Present illness Narrative IM [...] Testing No results found. Sangeetha Quick DO., [facility] Office: [phone] documented in this encounter [facility] 06-25-2023 History of Present illness Narrative [...] Testing No results found. Sangeetha Quick DO.DAYNA [facility] Physicians Office: [phone] documented in this encounter [facility] 05-30-2023 History of Present illness Narrative [...] moved into a memory unit at a group home, and a son was found at home. [...] Testing No results found. Sangeetha Quick DO., [facility] Office: [phone] documented in this encounter [facility] 07-19-2022 Note CONSULTATION CONSULTATION DATE: 07/19/2022 [...] our patients to inform us about any vajv-ypr-ijfyjps medications or herbal remedies/nutritional supplements/alternative remedies. 2. [...] options with their primary care provider. [facility] 04-26-2022 Note CONSULTATION CONSULTATION DATE: 04/26/2022 HISTORY [...] three months' time unless otherwise indicated. [facility] 03-27-2022 Note CONSULTATION CONSULTATION DATE: 03/27/2022 CHIEF [...] to proceed. CC: Sangeetha Quick D.O. [facility] 02-08-2022 Note CONSULTATION CONSULTATION DATE: 02/08/2022 This [...] The patient agrees with this plan. [facility] 01-11-2022 Note CONSULTATION CONSULTATION DATE: 01/11/2022 HISTORY [...] Patient would like to move forward. [facility] 12-14-2021 Note CONSULTATION PROCEDURE DATE: 12/14/2021 PREOPERATIVE [...] be followed up in the office. [facility] 12-14-2021 Note CONSULTATION CONSULTATION DATE: 12/14/2021 HISTORY [...] well, which she does consent to. [facility] 09-07-2021 Note CONSULTATION CONSULTATION DATE: 09/07/2021 HISTORY [...] in the fall. She was referred to [facility] Neurosurgery and is planning to have surgery in the fall following harvest season. 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 Patient feels that she can make it through the summer with a combination of her medication and occasional trigger point injections. 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 She uses heat [...] in three months' time, unless otherwise indicated. [facility] Signed and Approved by: MARIELY YUAN . 09/14/2021 16:04:00 [facility] Evaluation note Diagnosis Primary osteoarthritis of left knee- Primary [facility] Diagnosis Primary localized osteoarthritis of left knee- Primary Left knee pain, unspecified chronicity [facility] Diagnosis Hypothyroidism, unspecified type- Primary Right foot pain Pain in soft tissues of limb Vitamin D deficiency Cobalamin deficiency Other B-complex deficiencies Lichen planus atrophicus Lichen planus documented [facility] this [facility] Diagnosis Hypothyroidism, unspecified type- Primary Cobalamin deficiency Other B-complex deficiencies Hyperlipidemia, unspecified hyperlipidemia type Osteoarthritis of left shoulder, unspecified osteoarthritis type [facility] Diagnosis Localized osteoarthritis of left knee- Primary [facility] Diagnosis Primary osteoarthritis of knees, bilateral- Primary Osteoarthritis of left shoulder, unspecified osteoarthritis type Immunization due [facility] Diagnosis Osteoarthritis of left shoulder, unspecified osteoarthritis type- Primary [facility]* Diagnosis Hordeolum externum of right upper eyelid- Primary Blepharitis of right upper eyelid, unspecified type Age-related osteoporosis without current pathological fracture Encounter for immunization [facility] Diagnosis Diarrhea, unspecified type- Primary Primary osteoarthritis of knees, bilateral Vitamin D deficiency Cobalamin deficiency Other B-complex deficiencies Age-related osteoporosis without current pathological fracture Nausea and vomiting, unspecified vomiting type [facility]* Diagnosis Age-related osteoporosis without current pathological fracture- Primary [facility]* Diagnosis Hypothyroidism Unspecified hypothyroidism Deficiency of other specified B group vitamins Vitamin D deficiency, unspecified Hordeolum externum of right upper eyelid [facility]* Diagnosis Encounter for subsequent annual wellness visit (AWV) in Medicare patient- Primary [facility] encounter [facility]* Diagnosis Hyperlipidemia, unspecified documented in this encounter [facility]Not on filedocumented in this encounter [facility]Not on filedocumented in this encounter [facility]ructionsNot on filedocumented in this encounter [facility]* Attachments The following attachments cannot be sent through Care Everywhere. * Osteoarthritis Discharge Instructions (Armenian) documented in this [facility] System[facility]ructionsNot on file documented in this [facility] SystemInstructionsNot on file documented in [facility] SystemInstructionsNot on file documented in this [facility] SystemInstructionsNot on file documented in this encounterProChildren[facility] SystemInstructionsNot on file documented in this encounter[facility] Health SystemInstructionsNot on file [facility] in [facility] Summary Purpose Family History No [...] CREATED AUTHOR AUTHOR'S ORGANIZ ATION 08/29/2022 [facility] DATE CREATED AUTHOR AUTHOR'S ORGANIZ ATION 01/20/2024 [facility] EPIC DATE CREATED AUTHOR AUTHOR'S ORGANIZ ATION 05/21/2024 [facility] DATE CREATED AUTHOR AUTHOR'S ORGANIZ ATION 05/22/2024 [facility] DATE CREATED AUTHOR AUTHOR'S ORGANIZ ATION 05/24/2024 [facility] Care Teams (unrecognized sec tion and content) Oral And Maxillofacial Surgery Relationship Specialty Start Date End Date Sangeetha Quick MD [address] [place] [address] PCP - General Internal Medicine 09/10/23 Oral And Maxillofacial Surgery Relationship Specialty Start Date End Date Sangeetha Quick MD [address] [place] [address] PCP - General Internal Medicine 09/10/23 Oral And Maxillofacial Surgery Relationship Specialty Start Date End Date Sangeetha Quick MD [address] [place] [address] PCP - General Internal Medicine 09/10/23 Oral And Maxillofacial Surgery Relationship Specialty Start Date End Date Sangeetha Quick DO [address] [facility] [place] [address] PCP - General 11/09/13 Oral And Maxillofacial Surgery Relationship Specialty Start Date End Date Sangeetha Quick DO [address] [facility] [place] [address] PCP - General 11/09/13 Oral And Maxillofacial Surgery Relationship Specialty Start Date End Date Sangeetha Quick DO [address] [facility] [place] [address] PCP - General 11/09/13 Oral And Maxillofacial Surgery Relationship Specialty Start Date End Date Sangeetha Quick DO [address] [facility] [place] [address] PCP - General 11/09/13 Oral And Maxillofacial Surgery Relationship Specialty Start Date End Date Sangeetha Quick DO [address] [facility] [place] [address] PCP - General 11/09/13 Oral And Maxillofacial Surgery Relationship Specialty Start Date End Date Sangeetha Quick DO [address] [facility] [place] [address] PCP - General 11/09/13 Oral And Maxillofacial Surgery Relationship Specialty Start Date End Date Sangeetha Quick DO [address] [facility] [place] [address] PCP - General 11/09/13 Oral And Maxillofacial Surgery Relationship Specialty Start Date End Date Sangeetha Quick [address] [place] [address] PCP - General 11/09/13 Oral And Maxillofacial Surgery Relationship Specialty Start Date End Date Sangeetha Quick DO [address] [place] [address] PCP - General 11/09/13 Oral And Maxillofacial Surgery Relationship Specialty Start Date End Date Sangeetha Quick DO [address] [place] [address] PCP General 11/09/13 Oral And Maxillofacial Surgery Relationship Specialty Start Date End Date Sangeetha Quick [address] [place] [address] [facility] General 11/09/13 Oral And Maxillofacial Surgery Relationship Specialty Start Date End Date Sangeetha Quick [address] [place] [address] [facility] General 11/09/13 Oral And Maxillofacial Surgery Relationship Specialty Start Date End Date Sangeetha Quick DO [address] [place] [address] PCP General 11/09/13 Reason for Visit (unrecogniz [...] Age-related osteoporosis without current pathological fracture Procedures TN ZOLEDRONIC ACID 1MG TN INJECTION,THERAP/PROPH/DIAG NOST, IV PUSH, INITIAL DRUG Sangeetha Quick, DO [address] [place] [address] Phone: tel: fax: Alicia Gaston [facility] - Medical [facility] [address] [place] [address] Phone: tel: fax: Referral ID Status Reason Start Date Expiration Date V isits Requested Visits Authorized [id number] Authorized 12/31/2022 01/29/2025 1 1 Reason Comments [...] BE BASED ON THE PRIMARY CLINICAL RECORDS. [employer] provides no warranty or guarantee of the accuracy or completeness of information in this document.
--- NOTE | 2024-07-02 14:34 | PM.CN ---
Consult Note: HPI Data of Consult Patient: known to practice within the last 3 years Requesting Physician: Rosina Fleming NP Primary Care Provider: SANGEETHA QUICK Consult Narrative Reason for consult: f/u Narrative: Rach Hernandez a pleasant 78 year old female presents for evaluation and management of chronic low back pain and bilateral knee pain/OA. Tolerating tylenol arthritis and tramadol 50-100mg BID PRN well without side effects, finds mild benefit. since last visit has stopped requip with increased pain. recently underwent L5/S1 LENY with mild improvement per pt. now having significant low back and buttock pain per pt. Pain 7/10 increasing to 10/10 with standing and walking cc:: CC: Rosina Fleming NP Review of Systems ROS Status of ROS 10 or more systems reviewed and unremarkable except as noted in history and below Musculoskeletal Reports: back pain and joint pain Meds Home Medications and Allergies Home Medications ?Medication ?Instructions ?Recorded ?Confirmed ?Type acetaminophen 325 mg tablet (Aphen) 650 mg PO Q6H PRN pain 10/10/22 06/16/24 History levothyroxine 50 mcg capsule 50 mcg PO DAILY 10/11/22 06/16/24 History ropinirole 0.25 mg tablet 0.25 mg PO DAILY 10/11/22 06/16/24 History rosuvastatin 10 mg tablet 10 mg PO DAILY 10/11/22 06/16/24 History tizanidine 2 mg tablet 2 mg PO BID PRN spasm 10/11/22 06/16/24 History tramadol 50 mg tablet 50 mg PO BID 10/11/22 06/16/24 History zoledronic acid 5 mg/100 mL in ea IV .1 YEAR 01/10/23 History mannitol 5 %-water intravenous piggybck (Reclast) cholecalciferol (vitamin D3) 1,250 50,000 unit PO QWEEK 09/11/23 06/16/24 History mcg (50,000 unit) capsule ergocalciferol (vitamin D2) 1,250 1,250 mcg PO QWEEK 09/11/23 06/16/24 History mcg (50,000 unit) capsule estradiol 0.01% (0.1 mg/gram) 0.25 appful vaginal DAILY PRN 09/11/23 06/16/24 History vaginal cream itching Allergies Allergy/AdvReac Type Severity Reaction Status Date / Time aspirin Allergy Hives Verified 06/16/24 07:09 codeine Allergy Hives Verified 06/16/24 07:09 iodine Allergy Blister Verified 06/16/24 07:09 latex Allergy Blister Verified 06/16/24 07:09 pregabalin (From Lyrica) Allergy Abdominal Verified 06/16/24 07:09 Pain Sulfa (Sulfonamide Allergy Abdominal Verified 06/16/24 07:09 Antibiotics) Pain Exam Constitutional Documenting provider has reviewed patient's vital signs: yes Common normals: no apparent distress, oriented x3, healthy appearing, alert and well nourished General appearance: cooperative HENMT Common normals: normocephalic, hearing grossly normal bilaterally and moist oral mucous membranes Head and scalp: normocephalic Eye Common normals: PERRL Pupil: PERRL Neck & C-Spine Common normals: full ROM General: normal visual inspection Other: pain with ROM positive spurlings left intermittent radiculopathy to left arm Chest Common normals: inspection of chest normal Respiratory Common normals: normal respiratory effort, no retractions and no use of accessory muscles Back & Pelvis Thoracic spine/upper back: pain with ROM Lumbar spine/lower back: pain with ROM, lumbar spinal tenderness and paraspinal muscle tenderness; straight leg raise negative right and straight leg raise negative left Sacroiliac joints: SI joint(s) abnormal Other: pain with jose l, FADER, [place]. Right>L lumbar radiculopathy to bilateral L5-S1, strength 5/5 in BLE positive facet loading, pain over L4-S1 facets Extremity Common normals: normal to inspection and full ROM Right lower extremity: knee joint Left lower extremity: knee joint Left knee: inspection (mild edema noted, no discoloration or redness), palpation (tenderness most significant over MCL and meniscus), ROM (limited due to pain) and special tests Other: moderate crepitus to bilateral knees, pain with medial and lateral stress testing, enlarged diameters, mild edema to bilateral knees. no instability noted Neuro Common normals: oriented x3, CN's II-XII intact bilaterally, moves all extremities, no focal motor deficits, no sensory deficits noted and deep tendon reflexes 2+ bilaterally Sensorium/orientation: alert Motor exam: strength 5/5 throughout and no movement abnormalities noted Psych Common normals: mental status grossly normal, thought process normal, cooperative, affect normal, speech normal and activity/motor behavior normal Speech: normal speech Thought process: normal thought process Results Additional Findings Additional findings: If on a controlled substance or opioids, I have checked an [place]AR[place] report on this patient and there are no aberrancies noted in the prescribing history.??If on a controlled substance or opioid a drug screen was completed and reviewed within the last year, and if there has not been a drug screen completed we ordered one today to monitor higher risk, state monitored pain medication use. As part of providing excellent, safe, comprehensive care, the following was completed at our patient's visit: 1. A medication reconciliation and review to ensure accurate knowledge of current/active medications, including asking our patients to inform us about any [id number] medications or herbal remedies/nutritional supplements/alternative remedies. 2. A review to specifically ensure our patients have had annual screening for screening for depression, screening for tobacco use, and screening for unhealthy alcohol use. For concerning screenings had a discussion with the patient, provided patient education, and recommended follow-up with primary care provider when appropriate. If patient noted with a risk of falling, they received education on strength, gait, and balance training to prevent future risk of falling. Assessment and Plan Assessment and Plan (1) Sacroiliitis: Assessment and Plan: The patient has had over 3 months of moderate to severe low back and bilateral SIJ pain with functional impairment and inadequate response to conservative care including NSAIDS (unless there are contraindication such as concurrent blood thinners), multiple oral or topical pain medications, and home exercise program/physical therapy.? Patient has completed >6 weeks of guided home exercise program and/or formal physical therapy program without relief of their symptoms.? I have reviewed the imaging of the lumbosacral spine and no red flags were identified.? The Oswestry Disability Index was completed, and the patient scored a 28%.? The patient noted the following:?? moderate to severe pain impacting ADLs, sleep, social life, travel We discussed the risks and benefits of the procedure with the patient, and we are NOT planning on using sedation as outlined in the guidelines from Medicare unless there is a documented reason that sedation would be strongly recommended.?? ?The procedure will be completed with fluoroscopic guidance.? (2) Lumbar radiculopathy: (3) Osteoarthritis of right knee: (4) Osteoarthritis of left knee: (5) Chronic prescription opiate use: Assessment and Plan: I feel these medications are improving the patient's quality of life and allow them to tolerate activities of daily living as well as participate in recreational activity.? The patient does not report intolerable side effects. The patient is NOT opioid naive and non-pharmacologic and non-opioid treatment has failed to significantly relieve the patient's pain and improve functionality. The patient has a diagnosis that is related to a somatic or visceral pain etiology. ? ?? I reviewed with the patient the potential risks and side effects with the use of? opioid medications including but not limited to respiratory depression,? sedation, and even . Within the last 12 months I have verified the patient has access to naloxone should? these effects occur. The patient was advised to let? their family know they had Naloxone in case they would need to administer? the medication. I advised the patient to avoid the use of any other? sedation substances including alcohol, THC, and benzodiazepines while? taking opioid medications due to the risk of compounding side effects and? detrimental outcomes. within the last 12 months I have reviewed the [employer], pain treatment agreement and urine drug screen.? ?? A drug screen was completed within the last year, and no aberrancies were noted regarding their use of controlled substances. The patient understands they are subject to the terms and conditions of the pain contract that they have signed. ? ?? I have checked an OARRS report on this patient today and there are no aberrancies noted in the prescribing history.? (6) Lumbar spondylosis: (7) Osteoarthritis: Plan bilateral SIJ injection under fluoroscopy consider bilateral L4-5 L5-S1 facet RFAs in the future for axial low back pain secondary to lumbar spondylosis consider genicular nerve blocks working towards RFA vs repeat durolane increase tizanidine 2-4mg TID PRN pain/spasms pt unsure if shes currently taking ropinerole, encounraged to looks at medications at home and call the office continue current medications, tolerating well without side effects f/u 2 weeks after injection
== END 2024-07-02 14:05 | disposition home or self-care (01) ==
LOC: PM 14:04
PROVIDERS: PCP Internal Medicine; Visit Provider Nurse Practitioner
DX: M46.1 Sacroiliitis, not elsewhere classified (principal); M54.16 Radiculopathy, lumbar region; M17.0 Bilateral primary osteoarthritis of knee; Z79.891 Long term (current) use of opiate analgesic; M47.816 Spondylosis without myelopathy or radiculopathy, lumbar region; M19.90 Unspecified osteoarthritis, unspecified site
CPT/HCPCS: G0463

== ENCOUNTER 2024-07-13 07:50 | Day surgery (SDC) | payer MEDICARE, SELFPAY ==
--- OUTSIDE RECORDS SUMMARY | 2024-07-13 08:00 | XMS_ITS | CCD ---
Author Organization [facility] Care Team Providers Care Product Marketing Consultant Name Role Phone LAKSHMIPATHY, NARENDRANATH Attending Unava [...] Facility (1 source) Aspirin Drug Allergy [facility] Repository (4 sources) Codeine; Translations: [CODEINE] Drug Allergy 8 [facility] Repository (1 source) Etodolac Drug Allergy [facility] Repository (4 sources) Iodine; Translations: [IODINE] Drug Allergy 8 [facility] Repository (4 sources) Latex; Translations: [LATEX] Drug allergy (disorder) 3 [facility] Repository (1 source) pregabalin Drug Allergy [facility] Repository (1 source) Sulfonamides (Antibiotic) Drug allergy (disorder) [facility] Repository (6 sources) Aluminum aspirin Drug Allergy 4 [facility] (20 sources) Codeine Drug Allergy 8 Rash, Unknown [facility] (9 sources) Etodolac; Translations: [ETODOLAC] Propensity to adverse reactions 3 [facility] (20 sources) Iodine Drug Allergy 8 Anaphylaxis [facility] (6 sources) Latex Propensity to adverse reactions 3 [facility] (9 sources) Penicillins; Translations: [PENICILLINS] Drug Intolerance 8 Hives [facility] (20 sources) Sulfonamides (Antibiotic) Drug Intolerance 8 Rash, Unknown [facility] (19 sources) Aspirin; Translations: [ASPIRIN, BUFFERED] Drug Allergy 8 [facility] (16 sources) Etodolac Drug Allergy 3 [facility] (16 sources) Latex Propensity to adverse reactions to drug 3 [facility] (16 sources) Penicillins Propensity to adverse reactions to drug 8 [facility] (3 sources) Sulfonamides (Antibiotic); Translations: [SULFA (SULFONAMIDE ANTIBIOTICS)] Propensity to adverse reactions to drug (disorder) 8 [facility] Repository Medications Current Medications Medication Drug Class(es) [...] Perez MD on 05/23/2024 9:39 PM Normal [facility] CBC AND AUTO DIFFon 05-19-19 25 ABSOLUTE BASOPHIL 0.0 X10E9/L Normal 0.0-0.2 [facility] Comment on above: Performed By: #### C BCA, CMP, THYR, 2131-12, 54430-1 #### [facility] ([id number]) [address], [address] [place] [address] ABSOLUTE NEUTROPHIL 4.4 X10E9/L Normal 1.5-6.6 [facility] Comment on above: Performed By: #### C BCA, CMP, THYR, 2131-12, 70903-7 #### [facility] ([id number]) [address], [address] [place] [address] Basophils/100 WBC (Bld) 0.2 % Normal [facility] Comment on above: Performed By: #### C BCA, CMP, THYR, 2131-12, 13047-7 #### [facility] ([id number]) [address], [address] [place] [address] Eosinophils (Bld) [#/Vol] 0.1 10*3/uL Normal 0.0-0.4 [facility] Comment on above: Performed By: #### C BCA, CMP, THYR, 2131-12, 91768-9 #### [facility] ([id number]) [address] [address] [place] [address] Eosinophils/100 WBC (Bld) 1.2 % Normal [facility] Comment on above: Performed By: #### C BCA, CMP, THYR, 2131-12, 04075-1 #### [facility] ([id number]) [address] [address] [place] [address] Erythrocyte distribution width (RBC) [Ratio] 14.9 % Normal 11.5-15.0 [facility] Comment on above: Performed By: #### C BCA, CMP, THYR, 2131-12, 02301-0 #### [facility] ([id number]) [address] [address] [place] [address] Hematocrit (Bld) [Volume fraction] 34.6 % Low 35-47 [facility] Comment on above: Performed By: #### C BCA, CMP, THYR, 2131-12, 01475-5 #### [facility] ([id number]) [address] [address] [place] [address] Hemoglobin (Bld) [Mass/Vol] 11.2 g/dL Low 11.7-15.5 [facility] Comment on above: Performed By: #### C BCA, CMP, THYR, 2131-12, 43140-6 #### [facility] ([id number]) [address] [address] [place] [address] Lymphocytes (Bld) [#/Vol] 2.5 10*3/uL Normal 1.0-3.5 [facility] Comment on above: Performed By: #### C BCA, CMP, THYR, 2131-12, 74943-1 #### [facility] ([id number]) [address], [address] [place] [address] Lymphocytes/100 WBC (Bld) 33.7 % Normal [facility] Comment on above: Performed By: #### C BCA, CMP, THYR, 2131-12, #### [facility] ([id number]) [address], [address] [place] [address] MCH (RBC) [Entitic mass] 27.7 pg Normal 27-34 [facility] Comment on above: Performed By: #### C BCA, CMP, THYR, 2131-12, 09401-3 #### [facility] ([id number]) [address] [place] [address] MCHC (RBC) [Mass/Vol] 32.4 g/dL Normal 32-36 [facility] Comment on above: Performed By: #### C BCA, CMP, THYR, 2131-12, 16704-8 #### [facility] ([id number]) [address], [address] [place] [address] MCV (RBC) [Entitic vol] 86 fL Normal 80-100 [facility] Comment on above: Performed By: #### C BCA, CMP, THYR, 2131-12, 51192-9 #### [facility] ([id number]) [address], [address] [place] [address] Monocytes (Bld) [#/Vol] 0.4 10*3/uL Normal 0-0.9 [facility] Comment on above: Performed By: #### C BCA, CMP, THYR, 2131-12, 50186-7 #### [facility] ([id number]) [address], [address] [place] [address] Monocytes/100 WBC (Bld) 5.8 % Normal [facility] Comment on above: Performed By: #### C BCA, CMP, THYR, 2131-12, 57270-1 #### [facility] ([id number]) [address] [address] [place] [address] Neutrophils/100 WBC (Bld) 59.1 % Normal [facility] Comment on above: Performed By: #### C BCA, CMP, THYR, 2131-12, 02934-5 #### [facility] ([id number]) [address], [address] [place] [address] Platelet mean volume (Bld) [Entitic vol] 9.4 fL Normal 7-12 [facility] Comment on above: Performed By: #### C BCA, CMP, THYR, 2131-12, 47550-1 #### [facility] ([id number]) [address] [address] [place] [address] Platelets (Bld) [#/Vol] 242 10*3/uL Normal 150-450 [facility] Comment on above: Performed By: #### C BCA, CMP, THYR, 2131-12, 55799-2 #### [facility] ([id number]) [address] [address] [place] [address] RBC COUNT 4.04 X10E12/L Normal 3.80-5.20 [facility] Comment on above: Performed By: #### C BCA, CMP, THYR, 2131-12, 36610-8 #### [facility] ([id number]) [address] [address] [place] [address] WBC (Bld) [#/Vol] 7.5 10*3/uL Normal 4.0-11.0 [facility] Comment on above: Performed By: #### C BCA, CMP, THYR, 2131-12, 61234-5 #### [facility] ([id number]) [address], [address] [place] [address] COMPREHENSIVE METABOLIC PANE Ulices 05-19-2024 Albumin [Mass/Vol] 4.3 g/dL Normal 3.2-5.3 [facility] Comment on above: Performed By: #### C BCA, CMP, THYR, 2131-12, 29764-6 #### [facility] ([id number]) [address], [address] [place] [address] ALP [Catalytic activity/Vol] 51 U/L Normal 39-130 [facility] Comment on above: Performed By: #### C BCA, CMP, THYR, 2131-12, 31122-5 #### [facility] ([id number]) [address], [address] [place] [address] ALT [Catalytic activity/Vol] 10 U/L Normal 0-31 [facility] Comment on above: Performed By: #### C BCA, CMP, THYR, 2131-12, 03877-9 #### [facility] ([id number]) [address] [place] [address] Anion gap [Moles/Vol] 8 mmol/L Normal 5-15 [facility] Comment on above: Performed By: #### C BCA, CMP, THYR, 2131-12, 42973-9 #### [facility] ([id number]) [address] [place] [address] AST [Catalytic activity/Vol] 17 U/L Normal 0-41 [facility] Comment on above: Performed By: #### C BCA, CMP, THYR, 2131-12, 44726-2 #### [facility] ([id number]) [address] [place] [address] Bilirubin [Mass/Vol] 0.4 mg/dL Normal 0.3-1.2 [facility] Comment on above: Performed By: #### C BCA, CMP, THYR, 2131-12, 33604-5 #### [facility] ([id number]) [address] [place] [address] Calcium [Mass/Vol] 8.8 mg/dL Normal 8.5-10.5 [facility] Comment on above: Performed By: #### C BCA, CMP, THYR, 2131-12, 26206-5 #### [facility] ([id number]) [address] [place] [address] Chloride [Moles/Vol] 104 mmol/L Normal 98-109 [facility] Comment on above: Performed By: #### C BCA, CMP, THYR, 2131-12, 67152-1 #### [facility] ([id number]) [address] [place] [address] CO2 [Moles/Vol] 28 mmol/L Normal 22-32 [facility] Comment on above: Performed By: #### C BCA, CMP, THYR, 2131-12, 73932-9 #### [facility] ([id number]) [address] [address] [place] [address] Creatinine [Mass/Vol] 0.93 mg/dL Normal 0.40-1.00 [facility] Comment on above: Result Comment: METH OD TRACEABLE TO IDMS STANDARD Performed By: #### C BCA, CMP, THYR, 2131-12, 62214-9 #### [facility] ([id number]) [address] [place] [address] GFR/1.73 sq M.predicted among non-blacks MDRD (S/P/Bld) [Vol rate/Area] 64 mL/min/{1.73_m2} Normal >59 [facility] Comment on above: Result Comment: Reported eGFR is based on the CKD-EPI 2020 equation that does not use a race coefficient. Performed By: #### C BCA, CMP, THYR, 2131-12, 73740-0 #### [facility] ([id number]) [address] [place] [address] Glucose [Mass/Vol] 87 mg/dL Normal 65-99 [facility] Comment on above: Performed By: #### C BCA, CMP, THYR, 2131-12, 36530-9 #### [facility] ([id number]) [address] [place] [address] Potassium [Moles/Vol] 4.1 mmol/L Normal 3.5-5.0 [facility] Comment on above: Performed By: #### C BCA, CMP, THYR, 2131-12, 43861-9 #### [facility] ([id number]) [address] [place] [address] Protein [Mass/Vol] 6.6 g/dL Normal 6.0-8.0 [facility] Comment on above: Performed By: #### C BCA, CMP, THYR, 2131-12, 81172-6 #### [facility] ([id number]) [address] [place] [address] Sodium [Moles/Vol] 140 mmol/L Normal 134-146 [facility] Comment on above: Performed By: #### C BCA, CMP, THYR, 2131-12, 59539-2 #### [facility] ([id number]) [address] [place] [address] Urea nitrogen [Mass/Vol] 20 mg/dL Normal 5-27 [facility] Comment on above: Performed By: #### C BCA, CMP, THYR, 2131-12, 37326-2 #### [facility] ([id number]) [address] [place] [address] THYROID PROFILEon 05-19-2024 Free T4 [Mass/Vol] 0.95 ng/dL Normal 0.61-1.60 [facility] Comment on above: Performed By: #### C BCA, CMP, THYR, 2131-12, 78552-1 #### [facility] ([id number]) [address] [facility] [place] [address] TSH 0.60 uIU/mL Normal 0.49-4.67 [facility] Comment on above: Performed By: #### C BCA, CMP, THYR, 2131-12, 44264-5 #### [facility] ([id number]) [address] [facility] [place] [address] VITAMIN B12on 05-19-2024 Cobalamin (Vitamin B12) [Mass/Vol] 319 pg/mL Normal 180-914 [facility] Comment on above: Performed By: #### C BCA, CMP, THYR, 2131-12, 72062-2 #### [facility] ([id number]) [address] [facility] [place] [address] Vitamin D+Metabolites [Mass/ Vol]on 05-19-2024 VITAMIN D 25 HYD TOT 97.5 ng/mL Normal 30-100 [facility] Comment on above: Result Comment: Vitamin D status 25 [place] Vitamin D Deficiency <20 ng/mL Insufficiency 20-29 ng/mL Sufficiency 30-100 ng/mL Toxicity >100 ng/mL NOTE: A pediatric reference range has not been established by the mobile mechanic of this kit. The [place] [employer] recommends a Vitamin D level of = or >20ng/mL in infants and children. Performed By: #### C BCA, CMP, THYR, 2131-12, 37762-7 #### [facility] ([id number]) [address] [facility] [place] [address] ALBUMINon 02-05-2024 Albumin [Mass/Vol] 4.1 g/dL Normal 3.2-5.3 [facility] Comment on above: Performed By: #### C BCA, CMP, 3040-3 #### [facility] ([id number]) [address] [place] [address] CALCIUMon 02-05-2024 Calcium [Mass/Vol] 8.9 mg/dL Normal 8.5-10.5 [facility] Comment on above: Performed By: #### C TANNER HARDY, 3040-3 #### [facility] ([id number]) [address] [place] [address] CREATININEon 02-05-2024 Creatinine [Mass/Vol] 0.70 mg/dL Normal 0.40-1.00 [facility] Comment on above: Result Comment: METH OD TRACEABLE TO IDMS STANDARD Performed By: #### C TANNER HARDY, 3040-3 #### [facility] ([id number]) [address] [place] [address] GFR/1.73 sq M.predicted among non-blacks MDRD (S/P/Bld) [Vol rate/Area] 90 mL/min/{1.73_m2} Normal >59 [facility] Comment on above: Result Comment: Reported eGFR is based on the CKD-EPI 2020 equation that does not use a race coefficient. Performed By: #### C TANNER HARDY, 3040-3 #### [facility] ([id number]) [address] [place] [address] Vitamin D+Metabolites [Mass/ Vol]on 02-05-2024 VITAMIN D 25 HYD TOT 78.5 ng/mL Normal 30-100 [facility] Comment on above: Result Comment: Vitamin D status 25 [place] Vitamin D Deficiency <20 ng/mL Insufficiency 20-29 ng/mL Sufficiency 30-100 ng/mL Toxicity >100 ng/mL NOTE: A pediatric reference range has not been established by the mobile mechanic of this kit. The [place] [employer] recommends a Vitamin D level of = or >20ng/mL in infants and children. Performed By: #### C [facility], 3040-3 #### [facility] ([id number]) [address] [place] [address], [place] [address] XR Knee - left 1 or 2 Viewso n 01-08-2024 Imaging Result: AP and lateral views of left knee showed severe varus deformity with [id number] articulation to the medial joint line, flattening [...] joint disease left knee with varus deformity [facility] XR Knee - left 1 or 2 ViewsO rdered By: Jr. Mckeon on 01-08-2024 [facility] GOGETMi / ?.??car e Work Phone: XR Knee - left 1 or 2 Viewso n 01-07-2024 Radiology Study observation (narrative) [facility] GI PANELon 12-26-2023 Gastrointestinal pathogens DNA and [...] SAPOVIRUS Not detected (qualifier value) Normal NDET [facility] Comment on above: Performed By: #### 8 2195-9 #### [facility] ([id number]) [address] [facility] [place] [address] [facility] ([id number]) [address] [place] [address] MAMM SCREENING BILATERAL W C facilities technician 12-26-2023 MAMM SCREENING BILATERAL W CAD MAMM SCREENING BILATERAL W CAD RACH MUNROE 1945 [id number] EXAM: MAMM SCREENING BILATERAL W CAD, 12/26/2023 [...] PM 1 c MAMM 1 YR Normal [facility] BASIC METABOLIC PANLon 12-24 Anion gap [Moles/Vol] 10 mmol/L Normal 5-15 [facility] Comment on above: Performed By: #### B KIMBERLY, 2131-12 #### [facility] ([id number]) [address] [place] [address] Calcium [Mass/Vol] 8.8 mg/dL Normal 8.5-10.5 [facility] Comment on above: Performed By: #### B KIMBERLY, 2131-12 #### [facility] ([id number]) [address] [place] [address] Chloride [Moles/Vol] 105 mmol/L Normal 98-109 [facility] Comment on above: Performed By: #### B KIMBERLY 2131-12 #### [facility] ([id number]) [address] [place] [address] CO2 [Moles/Vol] 26 mmol/L Normal 22-32 [facility] Comment on above: Performed By: #### Lm HARRIS, 2131-12 #### [facility] ([id number]) [address] [place] [address] Creatinine [Mass/Vol] 0.73 mg/dL Normal 0.40-1.00 [facility] Comment on above: Result Comment: METH OD TRACEABLE TO IDMS STANDARD Performed By: #### Lm HARRIS, 2131-12 #### [facility] ([id number]) [address] [place] [address] GFR/1.73 sq M.predicted among non-blacks MDRD (S/P/Bld) [Vol rate/Area] 85 mL/min/{1.73_m2} Normal >59 [facility] Comment on above: Result Comment: Reported eGFR is based on the CKD-EPI 2020 equation that does not use a race coefficient. Performed By: #### Lm HARRIS, 2131-12 #### [facility] ([id number]) [address] [place] [address] Glucose [Mass/Vol] 92 mg/dL Normal 65-99 [facility] Comment on above: Performed By: #### Lm HARRIS, 2131-12 #### [facility] ([id number]) [address] [place] [address] Potassium [Moles/Vol] 3.4 mmol/L Low 3.5-5.0 [facility] Comment on above: Performed By: #### Lm HARRIS, 2131-12 #### [facility] ([id number]) [address] [place] [address] Sodium [Moles/Vol] 141 mmol/L Normal 134-146 [facility] Comment on above: Performed By: #### Lm HARRIS, 2131-12 #### [facility] ([id number]) [address] [place] [address] Urea nitrogen [Mass/Vol] 22 mg/dL Normal 5-27 [facility] Comment on above: Performed By: #### Lm HARRIS, 2131-12 #### [facility] ([id number]) [address] [place] [address] VITAMIN B12on 12-25-2023 Cobalamin (Vitamin B12) [Mass/Vol] pg/mL High 180-914 [facility] Comment on above: Performed By: #### Lm HARRIS, 2131-12 #### [facility] ([id number]) [address] [place] [address] CBC AND AUTO DIFFon 12-21-19 24 ABSOLUTE BASOPHIL 0.0 X10E9/L Normal 0.0-0.2 [facility] Comment on above: Performed By: #### C HAYLEY CMP, 3040-3 #### [facility] ([id number]) [address] [place] [address] ABSOLUTE NEUTROPHIL 7.4 X10E9/L High 1.5-6.6 [facility] Comment on above: Performed By: #### Renee HARDY CMP, 0-3 #### [facility] ([id number]) [address] [place] [address] Basophils/100 WBC (Bld) 0.3 % Normal [facility] Comment on above: Performed By: #### Renee HARDY CMP, 3040-3 #### [facility] ([id number]) [address] [place] [address] Eosinophils (Bld) [#/Vol] 0.1 10*3/uL Normal 0.0-0.4 [facility] Comment on above: Performed By: #### C BCA, CMP, 3039-06 #### [facility] ([id number]) [address] [place] [address] Eosinophils/100 WBC (Bld) 0.7 % Normal [facility] Comment on above: Performed By: #### Renee HARDY CMP, 3039-06 #### [facility] ([id number]) [address] [place] [address] Erythrocyte distribution width (RBC) [Ratio] 15.3 % High 11.5-15.0 [facility] Comment on above: Performed By: #### Renee HARDY CMP, 3039-06 #### [facility] ([id number]) [address] [place] [address] Hematocrit (Bld) [Volume fraction] 35.6 % Normal 35-47 [facility] Comment on above: Performed By: #### Renee HARDY CMP, 3039-06 #### [facility] ([id number]) [address] [place] [address] Hemoglobin (Bld) [Mass/Vol] 11.8 g/dL Normal 11.7-15.5 [facility] Comment on above: Performed By: #### Renee HARDY CMP, 3039-06 #### [facility] ([id number]) [address] [place] [address] Lymphocytes (Bld) [#/Vol] 1.1 10*3/uL Normal 1.0-3.5 [facility] Comment on above: Performed By: #### Renee HARDY CMP, 3039-06 #### [facility] ([id number]) [address] [place] [address] Lymphocytes/100 WBC (Bld) 11.6 % Normal [facility] Comment on above: Performed By: #### Renee HARDY CMP, 3039-06 #### [facility] ([id number]) [address] [place] [address] MCH (RBC) [Entitic mass] 27.8 pg Normal 27-34 [facility] Comment on above: Performed By: #### Renee HARDY CMP, 3039-3 #### [facility] ([id number]) [address] [place] [address] MCHC (RBC) [Mass/Vol] 33.1 g/dL Normal 32-36 [facility] Comment on above: Performed By: #### Renee HARDY CMP, 3039-06 #### [facility] ([id number]) [address] [place] [address] MCV (RBC) [Entitic vol] 84 fL Normal 80-100 [facility] Comment on above: Performed By: #### Renee HARDY CMP, 3 #### [facility] ([id number]) [address] [place] [address] Monocytes (Bld) [#/Vol] 0.6 10*3/uL Normal 0-0.9 [facility] Comment on above: Performed By: #### Renee HARDY CMP, 3039-06 #### [facility] ([id number]) [address] [place] [address] Monocytes/100 WBC (Bld) 6.4 % Normal [facility] Comment on above: Performed By: #### Renee HARDY CMP, 3039-06 #### [facility] ([id number]) [address] [place] [address] 70816 Neutrophils/100 WBC (Bld) 81.0 % Normal [facility] Comment on above: Performed By: #### Renee HARDY CMP, 3039-06 #### [facility] ([id number]) [address] [place] [address] 50539 Platelet mean volume (Bld) [Entitic vol] 8.9 fL Normal 7-12 [facility] Comment on above: Performed By: #### C HAYLEY, CMP, 0-3 #### [facility] ([id number]) [address] [place] [address] 45245 Platelets (Bld) [#/Vol] 255 10*3/uL Normal 150-450 [facility] Comment on above: Performed By: #### Renee HARDY CMP, 3039-3 #### [facility] ([id number]) [address] [place] [address] 53271 RBC COUNT 4.24 X10E12/L Normal 3.80-5.20 [facility] Comment on above: Performed By: #### Renee HARDY CMP, 3 #### [facility] ([id number]) [address] [place] [address] 42027 WBC (Bld) [#/Vol] 9.1 10*3/uL Normal 4.0-11.0 [facility] Comment on above: Performed By: #### Renee HARDY, CMP, 3039-3 #### [facility] ([id number]) [address] [place] [address] 55839 COMPREHENSIVE METABOLIC PANE [facility] 2023 Albumin [Mass/Vol] 4.2 g/dL Normal 3.2-5.3 [facility] Comment on above: Performed By: #### Renee HARDY, CMP, 3039-3 #### [facility] [facility] ([id number]) [address] [place] [address] 16245 ALP [Catalytic activity/Vol] 63 U/L Normal 39-130 [facility] Comment on above: Performed By: #### C BCA, CMP, 3039-3 #### [facility] ([id number]) [address] [place] [address] 23851 ALT [Catalytic activity/Vol] 14 U/L Normal 0-31 [facility] Comment on above: Performed By: #### C BCA, CMP, 3039-3 #### [facility] ([id number]) [address] [place] [address] 47688 Anion gap [Moles/Vol] 7 mmol/L Normal 5-15 [facility] Comment on above: Performed By: #### C BCA, CMP, 3039-3 #### [facility] ([id number]) [address] [place] [address] [place] [address] AST [Catalytic activity/Vol] 20 U/L Normal 0-41 [facility] Comment on above: Performed By: #### C BCA, CMP, 3039-3 #### [facility] ([id number]) [address] [place] [address] 96475 Bilirubin [Mass/Vol] 0.5 mg/dL Normal 0.3-1.2 [facility] Comment on above: Performed By: #### C BCA, CMP, 3 #### [facility] ([id number]) [address] [place] [address] 74641 Calcium [Mass/Vol] 8.5 mg/dL Normal 8.5-10.5 [facility] Comment on above: Performed By: #### C BCA, CMP, 3039-3 #### [facility] ([id number]) [address] [place] [address] 46198 Chloride [Moles/Vol] 105 mmol/L Normal 98-109 [facility] Comment on above: Performed By: #### C BCA, CMP, 0-3 #### [facility] ([id number]) [address] [place] [address] 07685 CO2 [Moles/Vol] 22 mmol/L Normal 22-32 [facility] Comment on above: Performed By: #### C BCA, CMP, 0-3 #### [facility] ([id number]) [address] [place] [address] Creatinine [Mass/Vol] 0.64 mg/dL Normal 0.40-1.00 [facility] Comment on above: Result Comment: METH OD TRACEABLE TO IDMS STANDARD Performed By: #### C TANNER HARDY, 3040-3 #### [facility] ([id number]) [address] [place] [address] 90298 eGFR (CKD-EPI) NON-RACE DEPENDENT >90 Normal >59 [facility] Comment on above: Result Comment: Reported eGFR is based on the CKD-EPI 2020 equation that does not use a race coefficient. Performed By: #### C TANNER HARDY, 3039-3 #### [facility] ([id number]) [address] [place] [address] 19200 Glucose [Mass/Vol] 123 mg/dL High 65-99 [facility] Comment on above: Performed By: #### C [facility], 3 #### [facility] ([id number]) [address] [place] [address] 79450 Potassium [Moles/Vol] 3.8 mmol/L Normal 3.5-5.0 [facility] Comment on above: Performed By: #### C [facility], 0-3 #### [facility] ([id number]) [address] [place] [address] 56311 Protein [Mass/Vol] 7.3 g/dL Normal 6.0-8.0 [facility] Comment on above: Performed By: #### C [facility], 0-3 #### [facility] ([id number]) [address] [place] [address] 58914 Sodium [Moles/Vol] 134 mmol/L Normal 134-146 [facility] Comment on above: Performed By: #### Renee HARDY CMP, 0-3 #### [facility] ([id number]) [address] [place] [address] [place] [address] Urea nitrogen [Mass/Vol] 18 mg/dL Normal 5-27 [facility] Comment on above: Performed By: #### C [facility], 3040-3 #### [facility] ([id number]) [address] [place] [address] LIPASEon 2023 Lipase [Catalytic activity/Vol] 26 U/L Normal 17-40 [facility] Comment on above: Performed By: #### C [facility], 3040-3 #### [facility] ([id number]) [address] [place] [address] SARS/FLU A+B/RSV by NAAT/Mol ecularon 2023 SARS/FLU [...] operators who are performing tests using either Nimia DX or AgileMD systems and is limited to laboratories that [...] repeat. Fact Sheet for Healthcare Providers: https://www.fda.gov/m edia/102228/download Fact Sheet for Patients: https://www.fda.gov/m edia/368844/download Normal [facility] Comment on above: Performed By: #### C OVFLR #### [facility] ([id number]) [address] [place] [address] 37658 URN MACROSCOPIC NURon 2023 BILIRUBIN STUART Negative Normal NEG [facility] Comment on above: Performed By: #### N UM #### [facility] ([id number]) [address] [place] [address] 03597 BLOOD/HGB STUART Small Abnormal [facility] Comment on above: Performed By: #### N UM #### [facility] ([id number]) [address] [place] [address] 40469 GLUCOSE STUART Negative Normal NEG [facility] Comment on above: Performed By: #### N UM #### [facility] ([id number]) [address] [place] [address] [place] [address] KETONES STUART Trace Abnormal NEG [facility] Comment on above: Performed By: #### N UM #### [facility] ([id number]) [address] [place] [address] 94271 LEUKOCYTE ESTERASE STUART Trace Abnormal [facility] Comment on above: Performed By: #### N UM #### [facility] ([id number]) [address] [place] [address] 86616 NITRITE STUART Negative Normal NEG [facility] Comment on above: Performed By: #### N UM #### [facility] ([id number]) [address] [place] [address] 11390 PH STUART 5.5 Normal 5.0-8.5 [facility] Comment on above: Performed By: #### N UM #### [facility] ([id number]) [address] [place] [address] 37708 PROTEIN STUART Negative Normal NEG [facility] Comment on above: Performed By: #### N UM #### [facility] ([id number]) [address] [place] [address] 95459 SPECIFIC GRAVITY STUART 1.015 Normal 1.003-1.035 [facility] Comment on above: Performed By: #### N UM #### [facility] ([id number]) [address] [place] [address] 28383 UROBILINOGEN STUART 0.2 eu/dL Normal <1.1 [facility] Comment on above: Performed By: #### N UM #### [facility] ([id number]) [address] [place] [address] 61413 $ Arthrocentesison 4 Sangeetha Quick DO 07/25/2023 [...] signs reviewed and stable MANUALLY TRANSCRIBED RESULTS [facility] XR KNEE LT 3 VWSon XR KNEE [...] Alejandro MD on 06/27/2023 1:51 PM Normal [facility] COMPREHENSIVE METABOLIC PANE Ulices 05-30-2023 Albumin [Mass/Vol] 4.3 g/dL Normal 3.2-5.3 [facility] Comment on above: Performed By: #### C KIMBERLY, 03231-6, THYR #### [facility] ([id number]) [address], [address] [place] [address] ALP [Catalytic activity/Vol] 63 U/L Normal 39-130 [facility] Comment on above: Performed By: #### C KIMBERLY, 20695-2, THYR #### [facility] ([id number]) [address] [facility], [address] [place] [address] ALT [Catalytic activity/Vol] 15 U/L Normal 0-31 [facility] Comment on above: Performed By: #### C KIMBERLY, 62957-6, THYR #### [facility] ([id number]) [address], [address] [place] [address] Anion gap [Moles/Vol] 6 mmol/L Normal 5-15 [facility] Comment on above: Performed By: #### C KIMBERLY, 46178-7, THYR #### [facility] ([id number]) [address], [address] [place] [address] AST [Catalytic activity/Vol] 15 U/L Normal 0-41 [facility] Comment on above: Performed By: #### C KIMBERLY, 30934-1, THYR #### [facility] ([id number]) [address], [address] [place] [address] Bilirubin [Mass/Vol] 0.3 mg/dL Normal 0.3-1.2 [facility] Comment on above: Performed By: #### C KIMBERLY, 91097-4, THYR #### [facility] ([id number]) [address], [address] [place] [address] Calcium [Mass/Vol] 9.1 mg/dL Normal 8.5-10.5 [facility] Comment on above: Performed By: #### C KIMBERLY, 02849-0, THYR #### [facility] ([id number]) [address], [address] [place] [address] Chloride [Moles/Vol] 105 mmol/L Normal 98-109 [facility] Comment on above: Performed By: #### C KIMBERLY, 87689-0, THYR #### [facility] ([id number]) [address], [address] [place] [address] CO2 [Moles/Vol] 31 mmol/L Normal 22-32 [facility] Comment on above: Performed By: #### C KIMBERLY, 37068-6, THYR #### [facility] ([id number]) [address], [address] [place] [address] Creatinine [Mass/Vol] 0.65 mg/dL Normal 0.40-1.00 [facility] Comment on above: Result Comment: METH OD TRACEABLE TO IDMS STANDARD Performed By: #### C KIMBERLY 73481-8, THYR #### [facility] ([id number]) [address], [address] [place] [address] eGFR (CKD-EPI) NON-RACE DEPENDENT >90 Normal >59 [facility] Comment on above: Result Comment: Reported eGFR is based on the CKD-EPI 2020 equation that does not use a race coefficient. Performed By: #### Divya Duran MP31-1, THYR #### [facility] ([id number]) [address], [address] [place] [address] Glucose [Mass/Vol] 101 mg/dL High 65-99 [facility] Comment on above: Performed By: #### Divya Duran MP31-1, THYR #### [facility] ([id number]) [address], [address] [place] [address] Potassium [Moles/Vol] 4.4 mmol/L Normal 3.5-5.0 [facility] Comment on above: Performed By: #### Renee HARRIS 03795-7, THYR #### [facility] ([id number]) [address], [address] [place] [address] Protein [Mass/Vol] 6.9 g/dL Normal 6.0-8.0 [facility] Comment on above: Performed By: #### Divya Duran MP31-1, THYR #### [facility] ([id number]) [address], [address] [place] [address] Sodium [Moles/Vol] 142 mmol/L Normal 134-146 [facility] Comment on above: Performed By: #### Renee HARRIS 59624-8, THYR #### [facility] ([id number]) [address], [address] [place] [address] Urea nitrogen [Mass/Vol] 18 mg/dL Normal 5-27 [facility] Comment on above: Performed By: #### [place], 30638-8, THYR #### [facility] ([id number]) [address] [facility] [address], [address] [place] [address] Comprehensive metabolic pane ulices 05-30-2023 Albumin [Mass/Vol] 4.3 g/dL 3.2 - 5.3 g/dL [facility] ALP [Catalytic activity/Vol] 63 U/L 39 - 130 U/L [facility] ALT No additional P-5'-P [Catalytic activity/Vol] 15 U/L 0 - 31 U/L [facility] Anion gap [Moles/Vol] 6 mmol/L 5 - 15 mmol/L [facility] AST [Catalytic activity/Vol] 15 U/L 0 - 41 U/L [facility] Bilirubin [Mass/Vol] 0.3 mg/dL 0.3 - 1 .2 mg/dL [facility] Calcium [Mass/Vol] 9.1 mg/dL 8.5 - 10. 5 mg/dL [facility] Chloride [Moles/Vol] 105 mmol/L 98 - 10 9 mmol/L [facility] CO2 [Moles/Vol] 31 mmol/L 22 - 32 mmol/L [facility] Creatinine [Mass/Vol] 0.65 mg/dL 0.40 - 1.00 mg/dL [facility] Comment on above: METHOD TRACEABLE TO IDMS STANDARD eGFR (CKD-EPI)non-race dependent - PINF [facility] Comment on above: Reported eGFR is based on the CKD-EPI 2020 equation that does not use a race coefficient. Glucose [Mass/Vol] 101 mg/dL High 65 - 99 mg/dL [facility] Potassium [Moles/Vol] 4.4 mmol/L 3.5 - 5.0 mmol/L [facility] Protein [Mass/Vol] 6.9 g/dL 6.0 - 8.0 g/dL [facility] Sodium [Moles/Vol] 142 mmol/L 134 - 146 mmol/L [facility] Urea nitrogen [Mass/Vol] 18 mg/dL 5 - 27 mg/dL [facility] Lipid 1996 panelon 4 Cholesterol [Mass/Vol] 140 mg/dL Low 150 - 200 mg/dL [facility] Cholesterol in HDL [Mass/Vol] 55 mg/dL 39 - PINF mg/dL [facility] Comment on above: HDL <40 mg/dL - High Risk HDL > or = 40mg/dL- Desirable HDL >60 mg/dL - Negative Risk Cholesterol in LDL [Mass/Vol] 69 mg/dL NINF - 130 mg/dL [facility] Comment on above: LDL <100 mg/dL - Desirable LDL >160 mg/dL - High Risk Cholesterol in VLDL [Mass/Vol] 16 mg/dL 0 - 30 mg/dL [facility] Cholesterol.total/Cho lesterol in HDL [Mass ratio] 2.5 {ratio} 1.0 - 5.0 [facility] Triglyceride [Mass/Vol] 82 mg/dL 27 - 150 mg/dL [facility] Cholesterol [Mass/Vol] 140 mg/dL Low 150-200 [facility] Comment on above: Performed By: #### C , 93451-3, THYR #### [facility] ([id number]) [address] [address], [address] [place] [address] Cholesterol in HDL [Mass/Vol] 55 mg/dL Normal >39 [facility] Comment on above: Result Comment: HDL <40 mg/dL - High Risk HDL > or = 40mg/dL- Desirable HDL >60 mg/dL - Negative Risk Performed By: #### Renee HARRIS, 58215-1, THYR #### [facility] ([id number]) [address], [facility] [address] [place] [address] Cholesterol in LDL [Mass/Vol] 69 mg/dL Normal <130 [facility] Comment on above: Result Comment: LDL <100 mg/dL - Desirable LDL >160 mg/dL - High Risk Performed By: #### Renee HARRIS, 32857-0, THYR #### [facility] ([id number]) [address], [address] [place] [address] Cholesterol in VLDL [Mass/Vol] 16 mg/dL Normal 0-30 [facility] Comment on above: Performed By: #### Renee HARRIS, 25758-2, THYR #### [facility] ([id number]) [address], [facility] [address] [place] [address] CHOLESTEROL:HDL 2.5 Normal 1.0-5.0 [facility] Comment on above: Performed By: #### Renee HARRIS, 95944-5, THYR #### [facility] ([id number]) [address], [facility] [address] [place] [address] Triglyceride [Mass/Vol] 82 mg/dL Normal 27-150 [facility] Comment on above: Performed By: #### Renee HARRIS, 96835-7, THYR #### [facility] ([id number]) [address], [address] [address] No Panel Informationon 05-30 Interpretation and review of laboratory results Abnormal [facility] THYROID PROFILEon 05-30-2023 Free T4 [Mass/Vol] 0.92 ng/dL Normal 0.61-1.60 [facility] Comment on above: Performed By: #### C , 07582-3, THYR #### [facility] ([id number]) [address], [address] [place] [address] TSH 0.95 uIU/mL Normal 0.49-4.67 [facility] Comment on above: Performed By: #### C , 16514-3, THYR #### [facility] ([id number]) [address], [address] [place] [address] Thyroid profile includes TSH FT4on 05-30-2023 Free T4 [Mass/Vol] 0.92 ng/dL 0.61 - 1. 60 ng/dL [facility] TSH Qn 0.95 m[IU]/L [facility] MRI SHOULDER LT WO CONon MRI [...] RONALDO JORGENSEN Date: 2022-05-18 09:45 Normal [facility] METABOLIC PANE [facility] 08-29-2021 Albumin [Mass/Vol] 4.0 g/dL Normal 3.6-5.1 [facility] Comment on above: Performed By: #### 7 600, 927, 94918 #### [facility] [place] [address] [employer]: Finn Akins MD Albumin/Globulin [Mass ratio] 1.9 {ratio} Normal 1.0-2.5 [facility] Comment on above: Performed By: #### 7 600, 927, 15819 #### [facility] [place] [address] [employer]: Finn Akins MD ALP [Catalytic activity/Vol] 56 U/L Normal 37-153 [facility] Comment on above: Performed By: #### 7 600, 927, 43037 #### [facility] [place] [address] [employer]: Finn Akins MD ALT [Catalytic activity/Vol] 18 U/L Normal 6-29 [facility] Comment on above: Performed By: #### 7 600, 927, 41009 #### [facility] [place] [address] [employer]: Finn Akins MD AST [Catalytic activity/Vol] 18 U/L Normal 10-35 [facility] Comment on above: Performed By: #### 7 600, 927, 55830 #### [facility] [place] [address] [employer]: Finn Akins MD Bilirubin [Mass/Vol] 0.4 mg/dL Normal 0.2-1.2 [facility] Comment on above: Performed By: #### 7 600, 927, 14617 #### [facility] [place] [address] [employer]: Finn Akins MD BUN/CREATININE RATIO NOT APPLICABLE Normal 6-22 [facility] Comment on above: Performed By: #### 7 600, 927, 74815 #### [facility] [place] [address] [employer]: Finn Akins MD Calcium [Mass/Vol] 8.8 mg/dL Normal 8.6-10.4 [facility] Comment on above: Performed By: #### 7 600, 927, 64178 #### [facility] [place] [address] [employer]: Finn Akins MD Chloride [Moles/Vol] 106 mmol/L Normal 98-110 [facility] Comment on above: Performed By: #### 7 600, 927, 10398 #### [facility] [place] [address] [employer]: Finn Akins MD CO2 [Moles/Vol] 30 mmol/L Normal 20-32 [facility] Comment on above: Performed By: #### 7 600, 927, 16436 #### [facility] [place] [address] [employer]: Finn Akins MD Creatinine [Mass/Vol] 0.67 mg/dL Normal 0.60-0.[address] [facility] Comment on above: Result Comment: For patients >49 years of age, the reference limit for Creatinine is approximately 13% higher for people identified as -Belarusian. Performed By: #### 7 600, 927, 58339 #### [facility] [place] [address] [employer]: Finn Akins MD eGFR NON-AFR. IVORIAN 87 mL/min/1.73m2 Normal > OR = 60 [facility] Comment on above: Performed By: #### 7 600, 927, 38652 #### [facility] [place] [address] [employer]: Finn Akins MD GFR/1.73 sq M.predicted among blacks MDRD (S/P/Bld) [Vol rate/Area] 101 mL/min/{1.73_m2} Normal > OR = 60 [facility] Comment on above: Performed By: #### 7 600, 927, 26552 #### [facility] [place] [address] [employer]: Finn Akins MD Globulin (S) [Mass/Vol] 2.1 g/dL Normal 1.9-3.7 [facility] Comment on above: Performed By: #### 7 600, 927, 38552 #### [facility] [place] [address] [employer]: Finn Akins MD Glucose [Mass/Vol] 96 mg/dL Normal 65-99 [facility] Comment on above: Result Comment: Fasting reference interval Performed By: #### 7 600, 927, 87354 #### [facility] [place] [address] [employer]: Finn Akins MD Potassium [Moles/Vol] 3.9 mmol/L Normal 3.5-5.3 [facility] Comment on above: Performed By: #### 7 600, 927, 96040 #### [facility] [place] [address] [employer]: Finn Akins MD Protein [Mass/Vol] 6.1 g/dL Normal 6.1-8.1 [facility] Comment on above: Performed By: #### 7 600, 927, 44950 #### [facility] [place] [address] [employer]: Finn Akins MD Sodium [Moles/Vol] 143 mmol/L Normal 135-146 [facility] Comment on above: Performed By: #### 7 600, 927, 23082 #### [facility] [address], [address] [place] [address] [employer]: Finn Akins MD Urea nitrogen [Mass/Vol] 17 mg/dL Normal 7- [facility] Comment on above: Performed By: #### 7 600, 927, 83441 #### [facility] [address], [address] [place] [address] [employer]: Finn Akins MD LIPID PANEL, [facility] [place] 05- Cholesterol [Mass/Vol] 126 mg/dL Normal <200 [facility] Comment on above: Order Comment: FASTI NG:YES FASTING: YES Performed By: #### 7 600, 927, 78191 #### [facility] [address], [address] [place] [address] [employer]: Finn Akins MD Cholesterol in HDL [Mass/Vol] 46 mg/dL Low > OR = 50 [facility] Comment on above: Order Comment: FASTI NG:YES FASTING: YES Performed By: #### 7 600, 927, 17669 #### [facility] [address], [address] [place] [address] [employer]: Finn Akins MD Cholesterol in LDL [Mass/Vol] [...] LDL-C. Aguilar SS et al. MCKAY. 2013;310(19): 9612-2427 (http://education.[employer]/faq/LAZ500) Performed By: #### 7 600, 927, 33184 #### [facility] [address], [address] [place] [address] [employer]: Finn Akins MD Cholesterol.total/Cho lesterol in HDL [Mass ratio] 2.7 {ratio} Normal <5.0 [facility] Comment on above: Order Comment: FASTI NG:YES FASTING: YES Performed By: #### 7 600, 927, 50648 #### [facility] [place] [address] [employer]: Finn Akins MD NON HDL CHOLESTEROL 80 mg/dL (calc) Normal <130 [facility] Comment on above: Order Comment: FASTI NG:YES FASTING: YES Result Comment: For patients with diabetes plus 1 major ASCVD risk factor, treating to a non-HDL-C goal of <100 mg/dL (LDL-C of <70 mg/dL) is considered a therapeutic option. Performed By: #### 7 600, 927, 79594 #### [facility] [place] [address] [employer]: Finn Akins MD Triglyceride [Mass/Vol] 86 mg/dL Normal <150 [facility] Comment on above: Order Comment: FASTI NG:YES FASTING: YES Performed By: #### 7 600, 927, 61085 #### [facility] [place] [address] [employer]: Finn Akins MD VITAMIN B12on 08-29-2021 Cobalamin (Vitamin B12) [Mass/Vol] 184 pg/mL Low 200-1100 [facility] Comment on above: Performed By: #### 7 600, 927, 03794 #### [facility] [place] [address] [employer]: Finn Akins MD BASIC METABOLIC PANELon Calcium [Mass/Vol] 9.2 mg/dL Normal 8.6-10.4 [facility] Comment on above: Performed By: #### 9 96, 76139, 83014 #### [facility] [place] [address] [employer]: Finn Akins MD Chloride [Moles/Vol] 102 mmol/L Normal 98-110 [facility] Comment on above: Performed By: #### 9 , 22261, 39891 #### [facility] [address], [address] [place] [address] [employer]: Finn Akins MD CO2 [Moles/Vol] 28 mmol/L Normal 20-32 [facility] Comment on above: Performed By: #### 9 , 48906, 16239 #### [facility] [address], [address] [place] [address] [employer]: Finn Akins MD Creatinine [Mass/Vol] 0.56 mg/dL Low 0.60-0.[address] [facility] Comment on above: Result Comment: For patients >49 years of age, the reference limit for Creatinine is approximately 13% higher for people identified as -Belarusian. Performed By: #### 01 09, 93967, 16710 #### [facility] [address], [address] [place] [address] [employer]: Finn Akins MD eGFR NON-AFR. IVORIAN 93 mL/min/1.73m2 Normal > OR = 60 [facility] Comment on above: Performed By: #### 9 , 13593, 79863 #### [facility] [place] [address] [employer]: Finn Akins MD GFR/1.73 sq M.predicted among blacks MDRD (S/P/Bld) [Vol rate/Area] 107 mL/min/{1.73_m2} Normal > OR = 60 [facility] Comment on above: Performed By: #### 9 27, 27728, 61278 #### [facility] [address], [address] [place] [address] [employer]: Finn Akins MD Glucose [Mass/Vol] 97 mg/dL Normal 65-99 [facility] Comment on above: Result Comment: Fasting reference interval Performed By: #### 9 , 43106, 43126 #### [facility] [address] [address], [address] [place] [address] Analyst Business Analysis: Finn Akins MD Potassium [Moles/Vol] 3.8 mmol/L Normal 3.5-5.[address] [facility] Comment on above: Performed By: #### 9 27, [id number], [id number] #### [facility] of [address], [address] [place] [address] Analyst Business Analysis: Finn Akins MD Sodium [Moles/Vol] 140 mmol/L Normal 135-146 [facility] Comment on above: Performed By: #### 9 , [id number], [id number] #### [facility] of [address], [address] [place] [address] Analyst Business Analysis: Finn Akins MD Urea nitrogen [Mass/Vol] 14 mg/dL Normal 7-25 [facility] Comment on above: Performed By: #### 9 , [id number], [id number] #### [facility] of [address], [address] [place] [address] Analyst Business Analysis: Finn Akins MD Urea nitrogen/Creatinine [Mass ratio] 25 mg/mg High 6-22 [facility] Comment on above: Performed By: #### 9 , [id number], [id number] #### [facility] of [place] [address] Analyst Business Analysis: Finn Akins MD TSH+FREE T4on 04-19-2021 Free T4 [Mass/Vol] 1.2 ng/dL Normal 0.8-1.8 [facility] Comment on above: Performed By: #### 9 , [id number], [id number] #### [facility] of [address], [address] [place] [address] Analyst Business Analysis: Finn Akins MD TSH Qn 0.55 m[IU]/L Normal 0.40-4.50 [facility] Comment on above: Performed By: #### 9 , [id number], [id number] #### [facility] of [address], [address] [place] [address] Analyst Business Analysis: Finn Akins MD VITAMIN B12on 04-19-2021 Cobalamin (Vitamin B12) [Mass/Vol] 133 pg/mL Low 200-1100 [facility] Comment on above: Performed By: #### 9 55, [id number], [id number] #### [facility] [address] [facility], [address] [place] [address] Analyst Business Analysis: Finn Akins MD Vital Signs Date Time Vital Sign Value Performing Clinician Facility 05-19-2024 14:32-0500 Body height 149.9 cm Sangeetha Quick DO Work Phone: [facility] / ?.?? [facility] 05-19-2024 14:32-0500 Body mass index (BMI) [Ratio] 30.13 kg/m2 Sangeetha Quick DO Work Phone: [facility] 05-19-2024 14:32-0500 Body temperature 98.49 [degF] Sangeetha Quick DO Work Phone: [facility] / ?.?? [facility] 05-19-2024 14:32-0500 Body weight 67.68 kg Sangeetha Quick DO Work Phone: [facility] 05-19-2024 14:32-0500 Diastolic blood pressure 78 mm[Hg] Sangeetha Quick DO Work Phone: [facility] 05-19-2024 14:32-0500 Heart rate 79 /min Sangeetha Quick DO Work Phone: [facility] / ?.?? [facility] 05-19-2024 14:32-0500 SaO2% (BldA) [Mass fraction] 97 % Sangeetha Quick DO Work Phone: [facility] / ?.?? [facility] 05-19-2024 14:32-0500 Systolic blood pressure 110 mm[Hg] Sangeetha Quick DO Work Phone: [facility] / ?.?? [facility] 02-27-2024 13:55-0500 Body height 149.9 cm Sangeetha Quick DO Work Phone: [facility] / ?.?? [facility] 02-27-2024 13:55-0500 Body mass index (BMI) [Ratio] 29.49 kg/m2 Sangeetha Quick DO Work Phone: [facility] / ?.?? [facility] 02-27-2024 13:55-0500 Body weight 66.22 kg Sangeetha Quick DO Work Phone: [facility] / ?.?? [facility] 02-27-2024 13:55-0500 Diastolic blood pressure 56 mm[Hg] Sangeetha Quick DO Work Phone: [facility] 02-27-2024 13:55-0500 Systolic blood pressure 107 mm[Hg] Sangeetha Quick DO Work Phone: [facility] / ?.?? [facility] 02-06-2024 14:17-0400 Body height 149.9 cm Pfo 4 [facility] 02-06-2024 14:17-0400 Body mass index (BMI) [Ratio] 29.63 kg/m2 Pfo 4 [facility] 02-06-2024 14:17-0400 Body temperature 98.2 [degF] Pfo 4 [facility] 02-06-2024 14:17-0400 Body weight 66.59 kg Pfo 4 [facility] 02-06-2024 14:17-0400 Diastolic blood pressure 56 mm[Hg] Pfo 4 [facility] 02-06-2024 14:17-0400 Heart rate 79 /min Pfo 4 [facility] 02-06-2024 14:17-0400 Respiratory rate 16 /min Pfo [address] [facility] 02-06-2024 14:17-0400 SaO2% (BldA) [Mass fraction] 99 % Pfo 4 [facility] 02-06-2024 14:17-0400 Systolic blood pressure 107 mm[Hg] Pfo 4 [facility] / ?.?? [facility] 01-20-2024 11:57-0400 Body height 149.9 cm Sangeetha Quick DO Work Phone: [facility] 01-20-2024 11:57-0400 Body mass index (BMI) [Ratio] 28.92 kg/m2 Sangeetha Quick DO Work Phone: [facility] 01-20-2024 11:57-0400 Body temperature 97.3 [degF] Sangeetha Quick DO Work Phone: [facility] 01-20-2024 11:57-0400 Body weight 64.95 kg Sangeetha Quick DO Work Phone: [facility] 01-20-2024 11:57-0400 Diastolic blood pressure 80 mm[Hg] Sangeetha Quick DO Work Phone: [facility] 01-20-2024 11:57-0400 Heart rate 65 /min Sangeetha Quick DO Work Phone: [facility] 01-20-2024 11:57-0400 Respiratory rate 18 /min Sangeetha Quick DO Work Phone: [facility] 01-20-2024 11:57-0400 SaO2% (BldA) [Mass fraction] 100 % Sangeetha Quick DO Work Phone: [facility] 01-20-2024 11:57-0400 Systolic blood pressure 150 mm[Hg] Sangeetha Quick DO Work Phone: [facility] 12-24-2023 12:43-0400 Body height 149.9 cm Sangeetha Quick DO Work Phone: [facility] 12-24-2023 12:43-0400 Body mass index (BMI) [Ratio] 27.91 kg/m2 Sangeetha Quick DO Work Phone: [facility] 12-24-2023 12:43-0400 Body temperature 98.6 [degF] Sangeetha Quick DO Work Phone: [facility] 12-24-2023 12:43-0400 Body weight 62.69 kg Sangeetha Quick DO Work Phone: [facility] 12-24-2023 12:43-0400 Diastolic blood pressure 70 mm[Hg] Sangeetha Quick DO Work Phone: [facility] 12-24-2023 12:43-0400 Heart rate 83 /min Sangeetha Dunbars DO Work Phone: [facility] / ?.?? [facility] 12-24-2023 12:43-0400 SaO2% (BldA) [Mass fraction] 99 % Sangeetha Dunbars DO Work Phone: [facility] / ?.?? [facility] 12-24-2023 12:43-0400 Systolic blood pressure 120 mm[Hg] Sangeetha Dunbars DO Work Phone: [facility] 07-25-2023 10:52-0400 Body height 149.9 cm Sangeetha Jiménezhas DO Work Phone: [facility] 07-25-2023 10:52-0400 Body mass index (BMI) [Ratio] 30.98 kg/m2 Sangeetha Dunbars DO Work Phone: [facility] 07-25-2023 10:52-0400 Body temperature 99 [degF] Sangeetha Dunbars DO Work Phone: [facility] 07-25-2023 10:52-0400 Body weight 69.58 kg Sangeetha Dunbars DO Work Phone: [facility] 07-25-2023 10:52-0400 Diastolic blood pressure 72 mm[Hg] Sangeetha Dunbars DO Work Phone: [facility] / ?.?? [facility] 07-25-2023 10:52-0400 Heart rate 68 /min Sangeetha Dunbars DO Work Phone: [facility] 07-25-2023 10:52-0400 SaO2% (BldA) [Mass fraction] 98 % Sangeetha Dunbars DO Work Phone: [facility] 07-25-2023 10:52-0400 Systolic blood pressure 118 mm[Hg] Sangeetha Jiménezhas DO Work Phone: [facility] / ?.?? [facility] 07-01-2023 15:40-0400 Body height 149.9 cm Sangeetha Dunbars DO Work Phone: [facility] 07-01-2023 15:40-0400 Body mass index (BMI) [Ratio] 31.1 kg/m2 Sangeetha Dunbars DO Work Phone: [facility] 07-01-2023 15:40-0400 Body temperature 98.2 [degF] Sangeetha Jiménezhas DO Work Phone: [facility] 07-01-2023 15:40-0400 Body weight 69.85 kg Sangeetha Dunbars DO Work Phone: [facility] 07-01-2023 15:40-0400 Diastolic blood pressure 70 mm[Hg] Sangeetha Dunbars DO Work Phone: [facility] / ?.?? [facility] 07-01-2023 15:40-0400 Heart rate 87 /min Sangeetha Dunbars DO Work Phone: [facility] 07-01-2023 15:40-0400 SaO2% (BldA) [Mass fraction] 99 % Sangeetha Dunbars DO Work Phone: [facility] 07-01-2023 15:40-0400 Systolic blood pressure 136 mm[Hg] Sangeetha Dunbars DO Work Phone: [facility] / ?.?? [facility] 06-25-2023 11:23-0400 Body height 149.9 cm Sangeetha Dunbars DO Work Phone: [facility] 06-25-2023 11:23-0400 Body mass index (BMI) [Ratio] 31.06 kg/m2 Sangeetha Jiménezhas DO Work Phone: [facility] / ?.?? [facility] 06-25-2023 11:23-0400 Body temperature 98.29 [degF] Sangeetha Jiménezhas DO Work Phone: [facility] / ?.?? [facility] 06-25-2023 11:23-0400 Body weight 69.76 kg Sangeetha Dunbars DO Work Phone: [facility] / ?.?? [facility] 06-25-2023 11:23-0400 Diastolic blood pressure 70 mm[Hg] [facility] 06-25-2023 11:23-0400 Heart rate 73 /min [facility]etha Quick [facility] 06-25-2023 11:23-0400 SaO2% (BldA) [Mass fraction] 97 % [facility]etha Quick [facility] 06-25-2023 11:23-0400 Systolic blood pressure 120 mm[Hg] [facility]eth[facility] Quick [facility] 05-30-2023 10:29-0500 Body height 149.9 cm [facility]etha Quick [facility] 05-30-2023 10:29-0500 Body mass index (BMI) [Ratio] 30.7 kg/m2 Sangeetha Quick DO Work Phone: [facility] 05-30-2023 10:29-0500 Body temperature 98.1 [degF] [facility]eth[facility] Quick [facility] 05-30-2023 10:29-0500 Body weight 68.95 kg [facility]angeetha Quick [facility] 05-30-2023 10:29-0500 Diastolic blood pressure 70 mm[Hg] [facility]etha Quick [facility] 05-30-2023 10:29-0500 Heart rate 71 /min [facility]etha Quick DO [facility] 05-30-2023 10:29-0500 SaO2% (BldA) [Mass fraction] 96 % [facility]angeetha Quick DO [facility] 05-30-2023 10:29-0500 Systolic blood pressure 120 mm[Hg] Sangeetha Quick DO Work Phone: [facility] / ?.?? [facility] Encounters Encounter Date Encounter Type Care Provider Facility Start: 06-09-2024 End: 06-09-2024 Refill Sangeetha Quick DO Work Phone: [facility] Comment on above: Hyperlipidemia, unsp ecified Start: 05-22-2024 End: 05-22-2024 [facility] Start: 05-19-2024 End: 05-19-2024 ambulatory [facility] Start: 05-19-2024 End: 05-19-2024 Office outpatient visit 25 minutes Sangeetha Quick DO Work Phone: [facility] Comment on above: Hypothyroidism, unsp ecified type (Primary Dx); Right foot pain; Vitamin D deficiency; Cobalamin deficiency; Lichen planus atrophicus Start: 05-19-2024 End: 05-19-2024 [facility] Start: 02-27-2024 End: 02-27-2024 [facility] Start: 02-27-2024 End: 02-27-2024 Patient encounter procedure Sangeetha Quick DO Work Phone: [facility] Comment on above: Encounter for subseq uent annual wellness visit (AWV) in Medicare patient (Primary Dx) Start: 02-25-2024 End: 02-25-2024 Refill Sangeetha Quick DO Work Phone: [facility] Comment on above: Hypothyroidism; Deficiency of other specified B group vitamins; Vitamin D deficiency, unspecified; Hordeolum externum of right upper eyelid Start: 02-06-2024 End: 02-06-2024 [facility] Comment on above: Age-related osteopor osis without current pathological fracture (Primary Dx) Start: 02-05-2024 End: 02-05-2024 [facility] Start: 02-03-2024 End: 02-03-2024 Telephone encounter Fatoumata Chacko [facility] - Family Medicine Start: 01-22-2024 End: 01-22-2024 Telephone encounter Sangeetha Quick DO Work Phone: [facility] Start: 01-20-2024 End: 01-20-2024 Bamboo flowsheet Jr. Angella Mckeon DO Work Phone: [facility] Start: 01-20-2024 End: 01-20-2024 Bamboo flowsheet Jr. Angella Mckeon DO Work Phone: [facility] Start: 01-20-2024 End: 01-20-2024 ambulatory [facility] Start: 01-20-2024 End: 01-20-2024 Office outpatient [...] 01-07-2024 End: 01-07-2024 Bamboo flowsheet Kathryn Cagle LEAD HOUSEKEEPER Work Phone: [facility] Start: 01-07-2024 End: 01-07-2024 Office outpatient visit 10 minutes Kathryn Cagle LEAD HOU[employer]KEEPER Work Phone: [facility] Comment on above: Primary localized os teoarthritis of left knee (Primary Dx); Left knee pain, unspecified chronicity Start: 01-07-2024 End: 01-07-2024 ambulatory KATHRYN CAGLE Not Available Start: 12-26-2023 End: 12-26-2023 ambulatory [facility] Start: 12-25-2023 End: 12-25-2023 ambulatory [facility] Start: 12-24-2023 End: 12-24-2023 Office outpatient visit 25 minutes Sangeetha Quick DO Work Phone: [facility] Comment on above: Diarrhea, unspecifie d type (Primary Dx); Primary osteoarthritis of knees, bilateral; Vitamin D deficiency; Cobalamin deficiency; Age-related osteoporosis without current pathological fracture; Nausea and vomiting, unspecified vomiting type Start: 12-24-2023 End: 12-24-2023 ambulatory [facility] Start: 12-23-2023 End: 12-24-2023 Telephone encounter Marcia Holder [facility] Comment on above: Er Follow-up Start: 2023 End: 2023 Emergency department patient visit [facility] Start: 12-11-2023 End: 12-12-2023 Telephone encounter Dipika Sagastume [facility] Start: 09-10-2023 End: 09-10-2023 ambulatory KATHRYN CAGLE Not Available Start: 08-21-2023 End: 08-23-2023 Telephone encounter Dipika Sagastume [facility] Start: 07-25-2023 End: 07-25-2023 Office outpatient visit 15 minutes Sangeetha Quick DO Work Phone: [facility] Comment on above: Osteoarthritis of le ft shoulder, unspecified osteoarthritis type (Primary Dx) Start: 07-25-2023 End: 07-25-2023 ambulatory [facility] Start: 07-01-2023 End: 07-01-2023 Office outpatient visit 25 minutes Sangeetha Quick DO Work Phone: [facility] Comment on above: 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, bilateral (Primary Dx); Osteoarthritis of left shoulder, unspecified osteoarthritis type; Immunization due Start: 07-01-2023 End: 07-01-2023 ambulatory [facility] Start: 06-27-2023 End: 06-27-2023 ambulatory [facility] Start: 06-25-2023 End: 06-25-2023 ambulatory [facility] Start: 06-25-2023 End: 06-25-2023 Office outpatient visit 25 minutes Sangeetha Quick DO Work Phone: [facility] Comment on above: Localized osteoarthr itis of left knee (Primary Dx) Start: 05-30-2023 End: 05-30-2023 ambulatory [facility] Start: 05-30-2023 End: 05-30-2023 ambulatory [facility] Start: 05-30-2023 End: 05-30-2023 Office outpatient visit 25 minutes Sangeetha Quick DO Work Phone: [facility] - Family [...] Start: 05-19-2025 Depression Screening Depression Scre ening [facility] Start: 05-19-2025 Fall Risk Screening Fall Risk Screen ing [facility] Start: 05-19-2025 Tobacco Screening Tobacco Screening [facility] Start: 03-02-2025 End: 03-02-2025 Patient encounter procedure 03/02/2025 2:20 PM EST Office Visit [facility] [address] [place] [address] [facility] Start: 02-26-2025 Depression Screening Depression Scre ening [facility] Start: 02-26-2025 Fall Risk Screening Fall Risk Screen ing [facility] Start: 02-26-2025 Medicare Annual Well ness Visit Medicare Annual Wellness Visit [facility] Start: 01-19-2025 Adult BMI Screening Adult BMI Screen ing [facility] Start: 01-19-2025 Depression Screening Depression Scre ening [facility] Start: 01-19-2025 Fall Risk Screening Fall Risk Screen ing [facility] Start: 01-19-2025 Tobacco Screening Tobacco Screening [facility] Start: 12-23-2024 Adult BMI Screening Adult BMI Screen ing [facility] Start: 12-23-2024 Depression Screening Depression Scre ening [facility] Start: 12-23-2024 Fall Risk Screening Fall Risk Screen ing [facility] Start: 12-23-2024 Tobacco Screening Tobacco Screening [facility] Start: 07-24-2024 Adult BMI Screening Adult BMI Screen ing [facility] Start: 07-24-2024 Depression Screening Depression Scre ening [facility] Start: 07-24-2024 Fall Risk Screening Fall Risk Screen ing [facility] Start: 07-24-2024 Tobacco Screening Tobacco Screening [facility] Start: 06-30-2024 Adult BMI Screening Adult BMI Screen ing [facility] Start: 06-30-2024 Depression Screening Depression Scre ening [facility] Start: 06-30-2024 Fall Risk Screening Fall Risk Screen ing [facility] Start: 06-30-2024 Tobacco Screening Tobacco Screening [facility] Start: 06-24-2024 Adult BMI Screening Adult BMI Screen ing [facility] Start: 06-24-2024 Depression Screening Depression Scre ening [facility] Start: 06-24-2024 Fall Risk Screening Fall Risk Screen ing [facility] Start: 06-24-2024 Tobacco Screening Tobacco Screening [facility] Start: 05-30-2024 Adult BMI Screening Adult BMI Screen ing [facility] Start: 05-30-2024 Depression Screening Depression Scre ening [facility] Start: 05-30-2024 Fall Risk Screening Fall Risk Screen ing [facility] Start: 05-30-2024 Tobacco Screening Tobacco Screening [facility] Start: 05-22-2024 COVID-19 Vaccine ( season) COVID-19 Vaccine () [facility] Start: 05-21-2024 DTaP,Tdap and Td Vaccines (2 - Td or Tdap) DTaP,Tdap and Td Vaccines (2 - Td or Tdap) [facility] Start: 05-19-2024 End: 05-19-2025 XR Foot - right 3 Views X-ray foot right minimum 3 views Imaging Routine Right foot pain Expected: 05/19/2024, Expires: 05/19/2025 [facility] Work Phone: Comment on above: Expected: 05/19/2024 , Expires: 05/19/2025 Start: 03-19-2024 End: 03-19-2024 Patient encounter procedure 03/19/2024 4:15 PM EST Office Visit [facility] [address] [facility] [facility] [place] [address] Sangeetha Quick, [address] [facility] [place] [place] [address] [facility] Start: 03-16-2024 End: 03-16-2024 Patient encounter procedure 03/16/2024 10:00 AM EST Office Visit [facility] [address] [place] [id number] Kathryn Cagle, LEAD HOUSEKEEPER [address] [place], [place] [id number] [facility] Start: 02-27-2024 End: 02-27-2024 Patient encounter procedure 02/27/2024 1:40 PM EST [facility] [address] [place] [address] [facility] Start: 01-20-2024 End: 01-20-2024 Patient encounter procedure [facility] Comment on above: Arrived Start: 01-07-2024 End: 01-07-2024 Patient encounter procedure 01/07/2024 10:30 AM EDT Office Visit [facility] [address] [id number] Kathryn Cagle, SALLIE [address] [place], [place] [id number] Arrived [facility] Comment on above: Arrived Start: 12-26-2023 End: 12-26-2023 Patient encounter procedure 12/26/2023 1:45 PM EDT Appointment [facility] - Mammogram DEXA [address] [place] [id number] Sangeetha Quick, DO [address] [place] [address] [facility] - [facility]ammogram [facility]EX[facility] Start: 12-24-2023 End: 12-23-2024 GI Panel(stool pathogen panel) GI Panel(stool pathogen panel) Lab Routine Diarrhea, unspecified type Expected: 12/24/2023, Expires: 12/23/2024 [facility] Work Phone: Comment on above: Expected: 12/24/2023 , Expires: 12/23/2024 Start: 12-24-2023 End: 12-24-2023 Patient encounter procedure 12/24/2023 1:00 PM EDT [facility] [address] [place] [phone] Sangeetha Quick, DO [address] [facility] [place] [address] [facility] Start: 12-15-2023 COVID-19 Vaccine ( season) COVID-19 Vaccine () [facility] / ?.?? [facility] Start: 12-15-2023 Influenza vaccination N [facility] Start: 12-03-2023 End: 12-03-2023 Patient encounter procedure 12/03/2023 2:00 PM EDT [facility] [address] [place] [place] [address] [facility] Physicians Internal Medicine - Family Medicine Start: 11-28-2023 Medicare Annual Well ness Visit Medicare Annual Wellness Visit [facility] / ?.?? [facility] Start: 07-14-2023 Influenza vaccination Influenza Vacc ine [facility] Comment on above: Postponed from 12/14 (Vaccine Not Available) Start: 06-25-2023 End: 06-24-2024 XR Knee - left 3 Views X-ray knee left 3 views Imaging Routine Localized osteoarthritis of left knee Expected: 06/25/2023, Expires: 06/24/2024 [facility] Work Phone: Comment on above: Expected: 06/25/2023 , Expires: 06/24/2024 Start: 12-14-2022 COVID-19 Vaccine ( season) COVID-19 Vaccine ( season) [facility] / ?.?? [facility] Start: 12-14-2022 Influenza vaccination Influenza Vacc ine [facility] Start: 12-20-1997 Administration of varicella zoster vaccine Zoster (Shingles) Vaccine (1 of 2) [facility] / ?.?? [facility] Start: 12-20-1965 Adult BMI Follow Up Plan Adult BMI Follow Up Plan [facility] End: 12-23-2024 Basic metabolic 2000 panel - Serum or Plasma Basic Metabolic Panel Lab Routine Diarrhea, unspecified type 1 Occurrences starting 12/24/2023 until 12/23/2024 [facility] Comment on above: 1 Occurrences starti ng 12/24/2023 until 12/23/2024 End: 05-19-2025 CBC W Auto Differential panel - Blood CBC auto differential Lab Routine Hypothyroidism, unspecified type 1 Occurrences starting 05/19/2024 until 05/19/2025 [facility] Comment on above: 1 Occurrences starti ng 05/19/2024 until 05/19/2025 End: 05-19-2025 Comprehensive metabolic 2000 panel - Serum or Plasma Comprehensive metabolic panel Lab Routine Hypothyroidism, unspecified type 1 Occurrences starting 05/19/2024 until 05/19/2025 [facility] / ?.?? [facility] Comment on above: 1 Occurrences starti ng 05/19/2024 until 05/19/2025 End: 05-19-2025 Cyanocobalamin vitamin b-12 Vitamin B12 Lab Routine Cobalamin deficiency 1 Occurrences starting 05/19/2024 until 05/19/2025 [facility] / ?.?? [facility] Comment on above: 1 Occurrences starti ng 05/19/2024 until 05/19/2025 End: 12-23-2024 Cyanocobalamin vitamin b-12 Vitamin B12 Lab Routine Cobalamin deficiency 1 Occurrences starting 12/24/2023 until 12/23/2024 [facility] Comment on above: 1 Occurrences starti ng 12/24/2023 until 12/23/2024 End: 05-19-2025 Thyroid profile includes TSH FT4 Thyroid profile includes TSH FT4 Lab Routine Hypothyroidism, unspecified type 1 Occurrences starting 05/19/2024 until 05/19/2025 [facility] Comment on above: 1 Occurrences starti ng 05/19/2024 until 05/19/2025 End: 05-19-2025 Vitamin D 25 hydroxy Vitamin D 25 hydroxy Lab Routine Vitamin D deficiency 1 Occurrences starting 05/19/2024 until 05/19/2025 [facility] Comment on above: 1 Occurrences starti ng 05/19/2024 until 05/19/2025 Immunizations Immunization Date Immunization Notes Care Provider Fa cili 01-20-2024 Covid-19, Mrna, Lnp- s, Pf,christian-sucrose,30 Mcg/0.3ml Fall Sangeetha Dunbars DO Work Phone: [facility] 01-20-2024 Seasonal trivalent influenza vaccine, adjuvanted, preservative free Sangeetha Dunbars DO Work Phone: [facility] 01-20-2024 Immunization, In Clinic,; Translations: [Drug or medicament (substance)] Sangeetha Dunbars DO Work Phone: [facility] 01-22-2022 influenza virus vacc ine, unspecified formulation Kathryn Cagle NP Work Phone: [facility] 04-24-2017 Influenza, injectabl e, [place]in [place] Canine Kidney, preservative free, quadrivalent Sangeetha Dunbars DO Work Phone: [facility] 04-24-2017 influenza virus vacc ine, unspecified formulation Sangeetha Dunbars DO Work Phone: [facility] 03-15-2016 pneumococcal polysaccharide vaccine, 23 valent Sangeetha Dunbars DO Work Phone: [facility] 01-11-2016 influenza, seasonal, injectable, preservative free Sangeetha Dunbars DO Work Phone: [facility] 01-05-2015 influenza, seasonal, injectable, preservative free Sangeetha Dunbars DO Work Phone: [facility] 01-05-2015 pneumococcal conjuga te vaccine, 13 valent Sangeetha Dunbars DO Work Phone: [facility] 05-21-2014 pneumococcal polysaccharide vaccine, 23 valent Sangeetha Jiménezhas DO Work Phone: [facility] 05-21-2014 tetanus toxoid, redu mary diphtheria toxoid, and acellular pertussis vaccine, adsorbed Sangeetha Dunbars DO Work Phone: [facility] Payers Date Payer Category Payer Managed Care Other (unspecified) [employer] [id number] 2021 Commercial Managed C are - POS [employer] [id number] 2021 Private Health Insurance [id number] .[id number] 2010 Medicare [id number] .[id number] 1959 Medicare [id number] 1959 Private Health Insurance CLI [id number] 1947 Unknown [id number] 2.16.840.1.520219.3.579 .2.593 1947 Unknown [id number] 2.16.840.1.019743.3.579 .2.593 1947 Unknown [id number] 2.16.840.1.197078.3.579 .2.593 1947 Unknown [id number] 2.16.840.1.515781.3.579 .2.593 1947 Unknown [id number] 2.16.840.1.716029.3.579 .2.593 1947 Unknown [id number] 2.16.840.1.998485.3.579 .2.593 1947 Unknown [id number] 2.16.840.1.851814.3.579 .2.593 1947 Unknown [id number] 2.16.840.1.071329.3.579 .2.593 1947 Unknown [id number] 2.16.840.1.734807.3.579 .2.593 1947 Unknown [id number] 2.16.840.1.885507.3.579 .2.593 1947 Unknown [id number] 2.16.840.1.070449.3.579 .2.593 1947 Unknown [id number] 2.16.840.1.585048.3.579 .2.593 1947 Unknown [id number] 2.16.840.1.235840.3.579 .2.593 1947 Unknown [id number] 2.16.840.1.757695.3.579 .2.593 1947 Unknown [id number] 2.16.840.1.231855.3.579 .2.593 1947 Unknown [id number] 2.16.840.1.445135.3.579 .2.1259 1947 Unknown [id number] 2.16.840.1.644526.3.579 .2.1259 1947 Unknown [id number] 2.16.840.1.710382.3.579 .2.1259 1947 Unknown [id number] 2.16.840.1.400189.3.579 .2.1259 1947 Unknown [id number] 2.16.840.1.789353.3.579 .2.1285 1947 Unknown [id number] 2.16.840.1.137663.3.579 .2.1285 1947 Unknown [id number] 2.16.840.1.833579.3.579 .2.1285 1947 Unknown [id number] 2.840.1.802332.3.579 .2.1285 1947 Unknown [id number] 2.840.1.765667.3.579 .2.1285 1947 Unknown [id number] 2.840.1.757540.3.579 .2.1285 1947 Unknown [id number] 2.840.1.680661.3.579 .2.1285 1947 Unknown [id number] 2.840.1.039856.3.579 .2.1285 1947 Unknown [id number] 2.840.1.363085.3.579 .2.1285 1947 Unknown [id number] 2.840.1.387658.3.579 .2.1285 1947 Unknown [id number] 2.840.1.226213.3.579 .2.1285 1947 Unknown [id number] 2.840.1.725922.3.579 .2.1285 1947 Unknown [id number] 2.840.1.228797.3.579 .2.1285 1947 Unknown [id number] 2.16840.1.149661.3.579 .2.1285 1947 Unknown [id number] 2.840.1.325978.3.579 .2.1285 1947 Unknown [id number] 2.16.840.1.106411.3.579 .2.1286 1947 Unknown [id number] 2.16.840.1.560808.3.579 .2.1286 1947 Unknown [id number] 2.16.840.1.410359.3.579 .2.1286 Social History Date Type Detail Facility Start: 05-14-2022 End: 01-07-2024 Tobacco smoking status [facility] Never smoked tobacco [facility] Work Phone: Start: 05-14-2022 End: 01-07-2024 Tobacco use and exposure Smokeless tobacco non-user [facility] Start: 01-07-2024 End: 01-20-2024 Alcoholic beverage intake Ex-drinker (finding) [facility] / ?.??ne re Start: 11-27-2022 End: 01-07-2024 History of Social function [facility] Start: 11-27-2022 End: 01-07-2024 Tobacco use panel [facility] Start: 1945 Sex assigned at Not on file [facility] Tobacco smoking stat [facility] Tobacco smoking consumption unknown [facility] Start: 01-20-2024 End: 05-19-2024 Alcoholic beverage intake Current non-drinker of alcohol (finding) [facility] Has the [employer], [employer], or water [employer] threatened to shut off services in your home in past 12Mo No [facility] Do you belong to any clubs or organizations such as baptist groups, unions, fraternal or athletic groups, or school groups? Yes [facility] Are you now , , , , never or living with a partner? [facility] How often to you hav e a drink containing alcohol? Never [facility] How many standard dr inks containing alcohol do you have on a typical day? Patient does not drink [facility] How hard is it for y ou to pay for the very basics like food, housing, medical care, and heating Somewhat hard [facility] Do you feel stress - tense, restless, nervous, or anxious, or unable to sleep at night because your mind is troubled all the time - these days [OSQ] Rather much [facility] Start: 11-18-2014 Sex Female (finding) [facility] How hard is it for y ou to pay for the very basics like food, housing, medical care, and heating Hard [facility] Do you feel stress - tense, restless, nervous, or anxious, or unable to sleep at night because your mind is troubled all the time - these days [OSQ] Very much [facility] Clinical Notes 09-07-2021 to 05-19-2024 [...] 3. Vitamin D deficiency -currently taking D3 54216 units weekly because of low vitamin-D and [...] Quick DO., [facility] Office: [phone] documented in this encounter [facility] 02-27-2024 History of Present illness [...] Do you have a durable power of real estate associate attorney?: Yes Cognitive Screening Do you have [...] year (around 02/26/2025). documented in this encounter [facility] 02-06-2024 History of Present illness Narrative Pt here for reclast as scheduled. Has had in the past without issues. PIV initiated to LAC. Brisk blood return. Flushes with ease. Reclast infused over 15 minutes without incident. Line flushed. PIV removed. Pt dc'd in stable ambulatory condition. documented in this encounter [facility] 02-03-2024 Miscellaneous Notes Called pt to let her know that she just has to go get her labs drawn at the hospital and the orders are already in. documented in this encounter [facility] 02-03-2024 Telephone encounter Note Called pt to let her know that she just has to go get her labs drawn at the hospital and the orders are already in. [facility] 01-22-2024 Miscellaneous Notes Patient called asking about an infusion at the [facility] that you were suppose to send over Message noted. The order was sent. She can call them at any time Mailbox is full documented in this encounter [facility] 01-22-2024 Telephone encounter Note Patient called asking about an infusion at the [facility] that you were suppose to send over [facility] 01-22-2024 Telephone encounter Note Message noted. The order was sent. She can call them at any time [facility] 01-22-2024 Telephone encounter Note Mailbox is full [facility] 01-20-2024 History of Present illness [...] Quick DO., [facility] Office: [phone] [facility] History of Present illness Narrative HISTORY [...] Daily RT cholecalciferol (Vitamin D-3) 1.25 MG (09329 UT) capsule 1 capsule, Oral, Weekly ergocalciferol (Vitamin D2) 1.25 MG (94475 UT) capsule TAKE 1 CASPULE BY MOUTH [...] Use: Not At Risk (11/27/2022) [facility] Frequency of Alcohol Consumption: Never Average [...] Angella Mckeon D.O. documented in this encounter [facility] 01-07-2024 History of Present illness Narrative Images [...] 09/11/23 XRAY [facility] 06/27/23 XRAY (08/26/18) @ [facility] SY[facility] (01/18/17) PER DR MCKEON PREVIOUS XRAYS (10/17/16) (AP STANDING) @ [facility]. PHYSICAL THERAPY @ [facility] 08/26/18 DR QUICK TX; TRAMADOL PRN- - [...] Daily RT cholecalciferol (Vitamin D-3) 1.25 MG (82683 UT) capsule 1 capsule, Oral, Weekly Cyanocobalamin ER 1000 MCG tablet controlled-release 2 tablets, Oral, Daily ergocalciferol (Vitamin D2) 1.25 MG (23562 UT) capsule TAKE 1 CASPULE BY MOUTH [...] left knee showed severe varus deformity with qvrl-ah-[id number] articulation to the medial joint line, flattening [...] develop for requiring urgent evaluation. 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 Cobalamin [...] She was visiting her mother in the long-term, and person there was having diarrhea and [...] Detected Not Detected^Not Detected Final Specific gravity [facility] 2023 1.015 1.003 - 1.035 Final Leukocyte esterase [facility] 2023 Trace (A) Negative^Negative Final Nitrite [facility] 2023 Negative Negative^Negative Final Ph 2023 5.5 5.0 - 8.5 Final Protein [facility] 2023 Negative Negative^Negative mg/dL Final Urine glucose [facility] 2023 Negative Negative^Negative mg/dL Final Ketones [facility] 2023 Trace (A) Negative^Negative mg/dL Final Urobilinogen [facility] 2023 0.2 <1.1 eu/dL Final Bilirubin [facility] 2023 Negative Negative^Negative Final Hemoglobin [facility] 2023 Small (A) Negative^Negative Final Other Testing No results found. Sangeetha Quick DO., [facility] Office: [phone] documented in this encounter [facility] 12-23-2023 Miscellaneous Notes ED Outreach This documentation is being used for Transition of Care purposes: Yes/No: Yes ED Outreach Date: December 23, 2023 ED Outreach Method: COMMUNICATION METHOD: Telephone ED Outreach Attempt: second ED Outreach Outcome: Contacted Patient Name of ED Facility: [facility] Date of ED Discharge: 2023 Discharge Diagnosis: [...] with additional concerns. documented in this encounter [facility] 12-23-2023 Telephone encounter Note ED Outreach This documentation is being used for Transition of Care purposes: Yes/No: Yes ED Outreach Date: December 23, 2023 ED Outreach Method: COMMUNICATION METHOD: Telephone ED Outreach Attempt: second ED Outreach Outcome: Contacted Patient Name of ED Facility: [facility] Date of ED Discharge: 2023 Discharge Diagnosis: [...] will contact the office with additional concerns. [facility] 12-11-2023 Miscellaneous Notes Patient came in today and asked if her mammogram could be sent to [facility]. Also she was wondering if you would check into her in fusion at [facility]. Message noted. [facility] put a new order for the Reclast infusion at [facility]. She can call about setting up the infusion Informed patient via answering machine. documented in this encounter [facility] 12-11-2023 Telephone encounter Note Patient came in today and asked if her mammogram could be sent to [facility]. Also she was wondering if you would check into her in fusion at [facility]. [facility] 12-11-2023 Telephone encounter Note Message noted. [facility] new order for the Reclast infusion at [facility]. She can call about setting up the infusion [facility] 12-11-2023 Telephone encounter Note Informed patient via answering machine. [facility] 08-21-2023 Miscellaneous Notes Patient called [...] time. Patient notified documented in this encounter [facility] 08-21-2023 Telephone encounter Note Patient called and the injection in her knee did not help. She wanted to know where to go from here. Does she need another apt? [facility] 08-21-2023 Telephone encounter Note Message noted. She needs to see orthopedics about a knee replacement. Whom does she wish to see? [facility] 08-21-2023 Telephone encounter Note LM for Patient to call back. [facility] 08-21-2023 Telephone encounter Note She would like to use Dr. Mckeon [facility] 08-21-2023 Telephone encounter Note Message noted. I made a referral to Dr. Mckeon. She can call his office and schedule at any time. [facility] 08-21-2023 Telephone encounter Note [facility] 07-25-2023 History of Present illness Narrative Associated [...] Quick DO., [facility] Office: [phone] [facility] History of Present illness Narrative IM [...] Quick DO., [facility] Office: [phone] documented in this encounter [facility] / ?.?? [facility] 06-25-2023 History of Present illness [...] Testing No results found. Sangeetha Quick DO.DAYNA [facility] Office: [phone] documented in this encounter [facility] 05-30-2023 History of Present illness [...] moved into a memory unit at a long-term, and a son was found at home. [...] Quick DO., [facility] Office: [phone] documented in this encounter [facility] 07-19-2022 Note CONSULTATION CONSULTATION DATE: [...] our patients to inform us about any [id number] medications or herbal remedies/nutritional supplements/alternative remedies. 2. [...] options with their primary care provider. [facility] 04-26-2022 Note CONSULTATION CONSULTATION DATE: 04/26/2022 [...] three months' time unless otherwise indicated. [facility] 03-27-2022 Note CONSULTATION CONSULTATION DATE: 03/27/2022 [...] to proceed. CC: Sangeetha Quick D.O. [facility] 02-08-2022 Note CONSULTATION CONSULTATION DATE: 02/08/2022 [...] The patient agrees with this plan. [facility] 01-11-2022 Note CONSULTATION CONSULTATION DATE: 01/11/2022 [...] Patient would like to move forward. [facility] 12-14-2021 Note CONSULTATION PROCEDURE DATE: 12/14/2021 [...] be followed up in the office. [facility] 12-14-2021 Note CONSULTATION CONSULTATION DATE: 12/14/2021 [...] on those regions reproduces patient's pain symptomatology. Incky's point is non-tender bilaterally and no reproduction [...] well, which she does consent to. [facility] 09-07-2021 Note CONSULTATION CONSULTATION DATE: 09/07/2021 [...] in the fall. She was referred to [facility] Neurosurgery and is planning to have surgery in the fall following harvest season. 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 Patient feels that she can make it through the summer with a combination of her medication and occasional trigger point injections. 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 She uses heat [...] in three months' time, unless otherwise indicated. [facility] Signed and Approved by: MARIELY YUAN . 09/14/2021 16:04:00 [facility] Evaluation note Diagnosis Primary osteoarthritis of left knee- Primary [facility] Diagnosis Primary localized osteoarthritis of left knee- Primary Left knee pain, unspecified chronicity [facility] Hypothyroidism, unspecified type- Primary Right foot pain Pain in soft tissues of limb Vitamin D deficiency Cobalamin deficiency Other B-complex deficiencies Lichen planus atrophicus Lichen planus [facility] Diagnosis Hypothyroidism, unspecified type- Primary Cobalamin deficiency Other B-complex deficiencies Hyperlipidemia, unspecified hyperlipidemia type Osteoarthritis of left shoulder, unspecified osteoarthritis type [facility] Diagnosis Localized osteoarthritis of left knee- Primary [facility]* Diagnosis Primary osteoarthritis of knees, bilateral- Primary Osteoarthritis of left shoulder, unspecified osteoarthritis type Immunization due documented [facility] encounter [facility]* Diagnosis Osteoarthritis of left shoulder, unspecified osteoarthritis type- Primary [facility]* Diagnosis Hordeolum externum of right upper eyelid- Primary Blepharitis of right upper eyelid, unspecified type Age-related osteoporosis without current pathological fracture Encounter for immunization documented [facility] Diagnosis Diarrhea, unspecified type- Primary Primary osteoarthritis of knees, bilateral Vitamin D deficiency Cobalamin deficiency Other B-complex deficiencies Age-related osteoporosis without current pathological fracture Nausea and vomiting, unspecified vomiting type documented [facility]* Diagnosis Age-related osteoporosis without current pathological fracture- Primary documented [facility] encounter [facility]* Diagnosis Hypothyroidism Unspecified hypothyroidism Deficiency of other specified B group vitamins Vitamin D deficiency, unspecified Hordeolum externum of right upper eyelid documented [facility]* Diagnosis Encounter for subsequent annual wellness visit (AWV) in Medicare patient- Primary documented [facility] encounter [facility]* Diagnosis Hyperlipidemia, unspecified documented [facility] this [facility] filedocumented in this encounter [facility] filedocumented in this encounter [facility] filedocumented in this encounter [facility]* Attachments The following attachments cannot be sent through Care Everywhere. * Osteoarthritis Discharge Instructions (Greenlandic) documented in this encounterProUniversity Hospitals St. [facility] SystemInstructionsNot on file documented in this encounterProUniversity Hospitals St. [facility] SystemInstructionsNot on file documented in this encounterProCentral [facility] SystemInstructionsNot on file documented in this encounterProCentral [facility] SystemInstructionsNot on file documented in this encounterProUniversity Hospitals St. [facility] SystemInstructionsNot on file documented in this encounterProCentral [facility] SystemInstructionsNot on file documented in this encounterKet[facility] Summary Purpose Family [...] CREATED AUTHOR AUTHOR'S ORGANIZ ATION 08/29/2022 [facility] DATE CREATED AUTHOR AUTHOR'S ORGANIZ ATION 01/20/2024 [facility] EPIC DATE CREATED AUTHOR AUTHOR'S ORGANIZ ATION 05/21/2024 [facility] DATE CREATED AUTHOR AUTHOR'S ORGANIZ ATION 05/22/2024 [facility] DATE CREATED AUTHOR AUTHOR'S ORGANIZ ATION 05/24/2024 [facility] Care Teams (unrecognized sec tion and content) Product Marketing Consultant Relationship Specialty Start Date End Date Sangeetha Quick MD [address] [place] [address] PCP - General Internal Medicine 09/10/23 Product Marketing Consultant Relationship Specialty Start Date End Date Sangeetha Quick MD [address] [place] [address] PCP - General Internal Medicine 09/10/23 Product Marketing Consultant Relationship Specialty Start Date End Date Sangeetha Quick MD [address] [place] [address] PCP - General Internal Medicine 09/10/23 Product Marketing Consultant Relationship Specialty Start Date End Date Sangeetha Quick DO [address] [facility] [place] [address] PCP - General 11/09/13 Product Marketing Consultant Relationship Specialty Start Date End Date Sangeetha Quick DO [address] [facility] [place] [address] PCP - General 11/09/13 Product Marketing Consultant Relationship Specialty Start Date End Date Sangeetha Quick DO [address] [facility] [place] [address] PCP - General 11/09/13 Product Marketing Consultant Relationship Specialty Start Date End Date Sangeetha Quick DO [address] [facility] [place] [address] PCP - General 11/09/13 Product Marketing Consultant Relationship Specialty Start Date End Date Sangeetha Quick DO [address] [facility] [place] [address] PCP - General 11/09/13 Product Marketing Consultant Relationship Specialty Start Date End Date Sangeetha Quick DO [address] [facility] [place] [address] PCP - General 11/09/13 Product Marketing Consultant Relationship Specialty Start Date End Date Sangeetha Quikc DO [address] [facility] [place] [address] PCP - General 11/09/13 Product Marketing Consultant Relationship Specialty Start Date End Date Sangeetha Quick [address] [place] [address] PCP - General 11/09/13 Product Marketing Consultant Relationship Specialty Start Date End Date Sangeetha Quick DO [address] [place] [address] PCP - General 11/09/13 Product Marketing Consultant Relationship Specialty Start Date End Date Sangeetha Quick DO [address] [place] [address] PCP General 11/09/13 Product Marketing Consultant Relationship Specialty Start Date End Date Sangeetha Quick [address] [place] [address] [facility] General 11/09/13 Product Marketing Consultant Relationship Specialty Start Date End Date Sangeetha Quick [address] [place] [address] [facility] General 11/09/13 Product Marketing Consultant Relationship Specialty Start Date End Date Sangeetha Quick DO [address] [place] [address] PCP General 11/09/13 Reason for Visit (unrecogniz [...] Age-related osteoporosis without current pathological fracture Procedures WA ZOLEDRONIC ACID 1MG WA INJECTION,THERAP/PROPH/DIAG NOST, IV PUSH, INITIAL DRUG Sangeetha Quick, DO [address] [place] [address] Phone: tel: fax: Alicia Gaston [facility] - Medical Oncology [address] [place] [address] Phone: tel: fax: Referral ID Status Reason Start Date Expiration Date V isits Requested Visits Authorized [id number] Authorized 12/31/2022 01/29/2025 1 1 Reason Comments [...] BE BASED ON THE PRIMARY CLINICAL RECORDS. [email or web address] provides no warranty or guarantee of the accuracy or completeness of information in this document.
[2024-07-13 08:07] VITALS: BP 142/73; PULSE 72; TEMP 36.3; O2SAT 100
[2024-07-13 09:09] VITALS: BP 174/102; PULSE 83; PULSE 88; O2SAT 97; O2SAT 98
[2024-07-13] MEDS: LIDOCAINE HCL 2% 400 MG/20 ML MDV INJ (09:11)
[2024-07-13] MEDS: BUPIVACAINE HCL 0.25% PF 25 MG/10 ML VIAL 4 ML INJ (09:11)
[2024-07-13] MEDS: IOHEXOL 240 MG/ML - 10 ML VIAL 24 MG INJ (09:11)
--- NOTE | 2024-07-13 09:11 | W.PM.PROCNOT ---
Date of procedure: 07/13/24 Pre-op diagnosis: Pain due to bilateral sacroiliitis Post-op diagnosis: same as pre-op Procedure: Procedure: Bilateral sacroiliac joint injection Medications: Bupivacaine 0.25% 3cc, depomedrol 40mg After informed consent was obtained, the patient was brought to the medical procedure unit and placed in the prone position, when a timeout was completed verifying correct patient, procedure, site, positioning, implant, and/or special equipment.? The skin overlying the area was prepped and draped in standard sterile fashion using alcohol.? A 25-gauge needle was inserted towards the left sacroiliac joint under direct fluoroscopic imaging.? Needle tip was advanced until the joint was encountered.? We instilled a total of 2 mL of solution.? The same procedure was then completed on the right side.? Postoperatively needles were removed.? The patient tolerated the procedure well without complication.? The patient reported reduction in pain symptoms postoperatively. Anesthesia: Local Surgeon: Delmer You Pathology: none sent Condition: stable Disposition: no change
[2024-07-13 09:12] VITALS: BP 181/88
[2024-07-13] MEDS: METHYLPREDNISOLONE ACETATE 40 MG/ML VIAL 80 MG INJ (09:12)
== END 2024-07-13 09:14 | disposition home or self-care (01) ==
LOC: SURGOUT 07:51
PROVIDERS: PCP Internal Medicine; Visit Provider Anesthesiology
DX: M46.1 Sacroiliitis, not elsewhere classified (principal); M53.3 Sacrococcygeal disorders, not elsewhere classified
CPT/HCPCS: 27096; J0665; J1010; Q9966

== ENCOUNTER 2024-07-22 13:29 | Outpatient (OUT) | payer MEDICARE, SELFPAY ==
--- NOTE | 2024-07-22 14:04 | P.CN_ITS ---
Consult Note: HPI Data of Consult Patient: known to practice within the last 3 years Requesting Physician: Rosina Fleming NP Primary Care Provider: SANGEETHA QUICK Consult Narrative Reason for consult: f/u Narrative: pleasant 78 year old female presents for evaluation of chronic low back and SIJ pain as well as severe right shoulder pain. pt reports hx of OA to right shoulder however over the last 2 weeks she has had significant increase in right shoulder pain and limitation with functional ability and ROM. no recent falls or injury. pt reports pain 8/10 sharp today. prior bilateral SIJ injection providing >80% improvement ongoing. pt currently utilizing tramadol, tylenol, biofreeze, salon pas with mild relief. no recent lumbar MRI or imaging or right shoulder available. cc:: CC: Rosina Fleming NP Review of Systems ROS Status of ROS 10 or more systems reviewed and unremark able except as noted in history and below Musculoskeletal Reports: back pain and extremity pain Meds Home Medications and Allergies Home Medications ?Medication ?Instructions ?Recorded ?Confirmed ?Type acetaminophen 325 mg tablet (Aphen) 650 mg PO Q6H PRN pain 10/10/22 07/13/24 History levothyroxine 50 mcg capsule 50 mcg PO DAILY 10/11/22 07/13/24 History rosuvastatin 10 mg tablet 10 mg PO DAILY 10/11/22 07/13/24 History tizanidine 2 mg tablet 2 mg PO BID PRN spasm 10/11/22 07/13/24 History tramadol 50 mg tablet 50 mg PO BID 10/11/22 07/13/24 History zoledronic acid 5 mg/100 mL in ea IV .1 YEAR 01/10/23 History mannitol 5 %-water intravenous piggybck (Reclast) cholecalciferol (vitamin D3) 1,250 50,000 unit PO QWEEK 09/11/23 07/13/24 History mcg (50,000 unit) capsule estradiol 0.01% (0.1 mg/gram) 0.25 appful vaginal DAILY PRN 09/11/23 07/13/24 History vaginal cream itching tizanidine 4 mg capsule See Rx Instructions .Route 07/02/24 07/13/24 Rx .COMPLEX PRN muscle spasticity #90 caps Allergies Allergy/AdvReac Type Severity Reaction Status Date / Time aspirin Allergy Hives Verified 07/13/24 08:10 codeine Allergy Hives Verified 07/13/24 08:10 iodine Allergy Blister Verified 07/13/24 08:10 latex Allergy Blister Verified 07/13/24 08:10 pregabalin (From Lyrica) Allergy Abdominal Verified 07/13/24 08:10 Pain Sulfa (Sulfonamide Allergy Abdominal Verified 07/13/24 08:10 Antibiotics) Pain Exam Constitutional Documenting provider has reviewed patient's vital signs: yes Common normals: no apparent distress, oriented x3, healthy appearing, alert and well nourished General appearance: cooperative HENMT Common normals: normocephalic, hearing grossly normal bilaterally and moist oral mucous membranes Head and scalp: normocephalic Eye Common normals: PERRL Pupil: PERRL Neck & C-Spine Common normals: full ROM General: normal visual inspection Other: pain with ROM positive spurlings left intermittent radiculopathy to left arm Chest Common normals: inspection of chest normal Respiratory Common normals: normal respiratory effort, no retractions and no use of accessory muscles Back & Pelvis Thoracic spine/upper back: pain with ROM Lumbar spine/lower back: pain with ROM, lumbar spinal tenderness, paraspinal muscle tenderness and straight leg raise positive right; straight leg raise negative left Sacroiliac joints: SI joints normal Other: negative bilateral jose l(patricks), gaenslens, thigh thrust, compression test lumbar radiculopathy to bilateral L5-S1, strength 4/5 in BLE positive facet loading, pain over L4-S1 facets Extremity Right upper extremity: shoulder joint (significant discomfort with palpation) Right lower extremity: knee joint Left lower extremity: knee joint Left knee: inspection (mild edema noted, no di scoloration or redness), palpation (tenderness most significant over MCL and meniscus), ROM (limited due to pain) and special tests Other: moderate crepitus to bilateral knees, pain with medial and lateral stress testing, enlarged diameters, mild edema to bilateral knees. no instability noted right shoulder severely limited ROM, strength 3/5 in RUE. unable to perform empty can test, posterior liftoff, and apleys scratch test due to severe pain. negative crossbody abduction Neuro Common normals: oriented x3 and CN's II-XII intact bilaterally Sensorium/orientation: alert Motor exam: no movement abnormalities noted Psych Common normals: mental status grossly normal, thought process normal, cooperative, affect normal, speech normal and activity/motor behavior normal Speech: normal speech Thought process: normal thought process Assessment and Plan Assessment and Plan (1) Tendinopathy of right rotator cuff: Assessment and Plan: severe pain and limited ROM, STAT MRI of right shoulder to assess pain and potential rotator cuff tear. will refer to orthopedics based on results (2) DDD (degenerative disc disease), lumbar: (3) Lumbar stenosis with neurogenic claudication: (4) Chronic prescription opiate use: (5) Myofascial pain: (6) Lumbar radiculopathy: Plan update right shoulder MRI stat as noted above update lumbar MRI without contrast to assess lumbar radiculopathy, lumbar DDD, and lumbar stenosis with NC pt has a hx of claustraphobia and severe anxiety, will order valium 10mg PO 30 minutes prior to MRI. risks vs benefits reviewed continue current medications f/u to review imaging
== END 2024-07-22 13:30 | disposition home or self-care (01) ==
PROVIDERS: PCP Internal Medicine; Visit Provider Nurse Practitioner
DX: M75.101 Unspecified rotator cuff tear or rupture of right shoulder, not specified as traumatic (principal); M51.369 Other intervertebral disc degeneration, lumbar region without mention of lumbar back pain or lower extremity pain; Z79.891 Long term (current) use of opiate analgesic; M79.18 Myalgia, other site; M54.16 Radiculopathy, lumbar region
CPT/HCPCS: G0463

== ENCOUNTER 2024-08-11 12:09 | Outpatient (OUT) | payer MEDICARE, SELFPAY ==
--- NOTE | 2024-08-11 12:15 | MR_ITS ---
[address] [address] Patient Name: PARMINDER MUNROE MRN: [id number] date: 1945 Sex: F Assigned Patient Location: MRI Current Patient Location: MRI Accession/Order Number: [id number] Exam Date: 08/11/2024 14:17 Report Date: 08/11/2024 14:23 At the request of: JB HOUSE NP Procedure: MR shoulder RT wo con EXAMINATION: MRI OF THE RIGHT SHOULDER CLINICAL HISTORY: Right shoulder pain for 3 months. No known injury. COMPARISON: None TECHNIQUE: Multiecho, multiplanar imaging was performed with use of an extremity coil. No contrast was administered. FINDINGS: Bones/Joints: Small joint effusion with subacromial/subdeltoid bursitis. Moderate degenerative changes of the AC and glenohumeral joints. Cystic changes involving the humeral head and glenoid. Inferior glenohumeral ligament appears unremarkable. No bone marrow edema. No fracture. Labrum: Suboptimally visualized. No definitive tear is seen. Biceps tendon: Tendon is seen within the bicipital groove a small amount of surrounding fluid. No definitive tear is seen. Supraspinatus: Complete tear with retraction of fibers approximately 3 cm. Infraspinatus: Tendinosis with partial-thickness tear joint side near its insertion upon the greater tubercle. Teres Minor: Normal Subscapularis: Tendinosis without definitive tear. MR/MR shoulder RT wo con IMPRESSION: MODERATE DEGENERATIVE CHANGES OF THE AC AND GLENOHUMERAL JOINTS WITH ASSOCIATED JOINT EFFUSION WELL SUBACROMIAL/SUBDELTOID BURSITIS. THERE IS COMPLETE TEAR OF THE SUPRASPINATUS WITH APPROXIMATELY 3 CM OF RETRACTION WELL A PARTIAL-THICKNESS TEAR JOINT SIDE OF THE INFRASPINATUS NEAR ITS INSERTION UPON THE GREATER TUBERCLE. Impression dictated by: Heriberto Williamson Jr., D.O. 08/11/2024 2:23 PM Dictation Location: [place] [address] Electronically authenticated by: [id number] Y Date: 08/11/2024 14:23
--- NOTE | 2024-08-11 12:15 | MR_ITS ---
The [address] [address] Patient Name: PARMINDER MUNROE MRN: [facility]:[id number] date: 1945 Sex: F Assigned Patient Location: MRI Current Patient Location: MRI Accession/Order Number: [id number] Exam Date: 08/11/2024 14:24 Report Date: 08/11/2024 14:27 At the request of: JB HOUSE NP Procedure: MR lumbar spine wo con EXAMINATION: MRI LUMBAR SPINE WITHOUT IV CONTRAST CLINICAL HISTORY: Lumbar pain radiating into both legs. COMPARISON: None TECHNIQUE: Multiecho imaging was performed in the sagittal and axial planes without contrast administration. FINDINGS: Vertebral body heights appear maintained. No bone marrow edema. Diffuse disc desiccation. Spinal cord terminates in normal position without abnormal cord signal. No paraspinal mass. Visualized retroperitoneum demonstrates no acute process. At L1-L2: Mild broad-based disc bulge is present with ligamentum flavum hypertrophy and facet joint degenerative change causing mild canal and bilateral neural foraminal stenosis. At L2-L3: Mild broad-based disc bulge is present with ligamentum flavum hypertrophy and facet joint degenerative change causing mild canal and bilateral neural foraminal stenosis. At L3-L4: Broad-based disc bulge is present with ligamentum flavum hypertrophy facet joint degenerative changes causing moderate canal and bilateral neural foraminal stenosis. At L4-L5: 5 mm of anterolisthesis of L4 on L5. Diffuse broad-based disc bulge is present with ligamentum flavum hypertrophy and facet joint degenerative changes causing severe canal and bilateral neural foraminal stenosis. At L5-S1: Mild diffuse broad-based disc bulge with facet joint degenerative changes causing mild canal and bilateral neural foraminal stenosis. MR/MR lumbar spine wo con IMPRESSION: Multilevel degenerative disease as described above, worst at L4-L5. Impression dictated by: Heriberto Williamson Jr., D.O. 08/11/2024 2:27 PM Dictation Location: [place] [address] Electronically authenticated by: [id number] Y Date: 08/11/2024 14:27
== END 2024-08-11 12:10 | disposition home or self-care (01) ==
LOC: MRI 12:10
PROVIDERS: PCP Internal Medicine; Visit Provider Nurse Practitioner
DX: M75.31 Calcific tendinitis of right shoulder (principal); M48.062 Spinal stenosis, lumbar region with neurogenic claudication; M51.369 Other intervertebral disc degeneration, lumbar region without mention of lumbar back pain or lower extremity pain; M19.011 Primary osteoarthritis, right shoulder; S46.011A Strain of muscle(s) and tendon(s) of the rotator cuff of right shoulder, initial encounter
CPT/HCPCS: 72148; 73221

== ENCOUNTER 2024-11-19 11:01 | Outpatient (OUT) | payer MEDICARE, SELFPAY ==
--- NOTE | 2024-11-19 11:28 | PM.CN ---
Consult Note: HPI Data of Consult Patient: known to practice within the last 3 years Requesting Physician: Rosina Fleming NP Primary Care Provider: SANGEETHA QUICK Consult Narrative Reason for consult: low back and left hip pain Narrative: Rach Abrams a pleasant 78 year old female presents for evaluation of severe left low back and groin pain increasing over the last 3 weeks without injury/fall. pt reports she was evaluated by her pcp, lumbar xray was completed as advised by pcp with results in chart. patient rating pain 10/10 sharp constant pain increased with twisting, pushing, pulling, standing, walking, lifting, stairs, bending, activity. pain improved with sitting and heat. prior left SIJ injection provided >50% improvement greater than 3 months. cc:: CC: Rosina Fleming NP Meds Home Medications and Allergies Home Medications ?Medication ?Instructions ?Recorded ?Confirmed ?Type acetaminophen 325 mg tablet (Aphen) 650 mg PO Q6H PRN pain 10/10/22 07/13/24 History levothyroxine 50 mcg capsule 50 mcg PO DAILY 10/11/22 07/13/24 History rosuvastatin 10 mg tablet 10 mg PO DAILY 10/11/22 07/13/24 History tizanidine 2 mg tablet 2 mg PO BID PRN spasm 10/11/22 07/13/24 History tramadol 50 mg tablet 50 mg PO BID 10/11/22 07/13/24 History zoledronic acid 5 mg/100 mL in ea IV .1 YEAR 01/10/23 History mannitol 5 %-water intravenous piggybck (Reclast) cholecalciferol (vitamin D3) 1,250 50,000 unit PO QWEEK 09/11/23 07/13/24 History mcg (50,000 unit) capsule estradiol 0.01% (0.1 mg/gram) 0.25 appful vaginal DAILY PRN 09/11/23 07/13/24 History vaginal cream itching tizanidine 4 mg capsule See Rx Instructions .Route 07/02/24 07/13/24 Rx .COMPLEX PRN muscle spasticity #90 caps Allergies Allergy/AdvReac Type Severity Reaction Status Date / Time aspirin Allergy Hives Verified 07/13/24 08:10 codeine Allergy Hives Verified 07/13/24 08:10 iodine Allergy Blister Verified 07/13/24 08:10 latex Allergy Blister Verified 07/13/24 08:10 pregabalin (From Lyrica) Allergy Abdominal Verified 07/13/24 08:10 Pain Sulfa (Sulfonamide Allergy Abdominal Verified 07/13/24 08:10 Antibiotics) Pain Exam Constitutional Documenting provider has reviewed patient's vital signs: yes Common normals: no apparent distress, oriented x3, healthy appearing, alert and well nourished General appearance: cooperative HENMT Common normals: normocephalic, hearing grossly normal bilaterally and moist oral mucous membranes Head and scalp: normocephalic Eye Common normals: PERRL Pupil: PERRL Neck & C-Spine Common normals: full ROM General: normal visual inspection Chest Common normals: inspection of chest normal Respiratory Common normals: normal respiratory effort, no retractions and no use of accessory muscles Back & Pelvis Lumbar spine/lower back: ROM limited, pain with ROM and lumbar spinal tenderness Sacroiliac joints: SI joint(s) abnormal Other: left sij positive jose l(patricks), gaenslens, thigh thrust, compression test severe pain with internal/external rotation of left hip Neuro Common normals: oriented x3 Sensorium/orientation: alert Psych Common normals: mental status grossly normal, thought process normal, cooperative, affect normal, speech normal and activity/motor behavior normal Speech: normal speech Thought process: normal thought process Results Additional Findings Additional findings: If on a controlled substance or opioids, I have checked an [place]AR[place] report on this patient and there are no aberrancies noted in the prescribing history.??If on a controlled substance or opioid a drug screen was completed and reviewed within the last year, and if there has not been a drug screen completed we ordered one today to monitor higher risk, state monitored pain medication use. As part of providing excellent, safe, comprehensive care, the following was completed at our patient's visit: 1. A medication reconciliation and review to ensure accurate knowledge of current/active medications, including asking our patients to inform us about any cxzr-hxy-xnrscyi medications or herbal remedies/nutritional supplements/alternative remedies. 2. A review to specifically ensure our patients have had annual screening for screening for depression, screening for tobacco use, and screening for unhealthy alcohol use. For concerning screenings had a discussion with the patient, provided patient education, and recommended follow-up with primary care provider when appropriate. If patient noted with a risk of falling, they received education on strength, gait, and balance training to prevent future risk of falling. Portions of this note may have been carried over from the previous visit and updated as appropriate. Please note this office utilizes paper charting in addition to the electronic medical record. A list of current medications, vitals, and PMH is available there as the clinical staff outside of myself do not have access to [employer] charting during the clinic day operations. As part of providing quality comprehensive care the current medications, vitals, and PMH were reviewed in the paper chart. Assessment and Plan Assessment and Plan (1) Sacroiliitis: Assessment and Plan: The patient has had over 3 months of moderate to severe left SIJ pain with functional impairment and inadequate response to conservative care including NSAIDS (unless there are contraindication such as concurrent blood thinners), multiple oral or topical pain medications, and home exercise program/physical therapy.? Patient has completed >6 weeks of guided home exercise program and/or formal physical therapy program without relief of their symptoms.? The Oswestry Disability Index was completed, and the patient scored a 48%.? The patient noted the following:?? severe pain with standing, walking, lifting, ADLs, social life, travel? (2) Left hip pain: (3) Chronic prescription opiate use: Plan repeat left sij injection under fluoroscopy continue current medications start medrol dose pack, risks vs benefits reviewed update left hip xray update UDS for medication monitoring pt reports PCP mentioned she may have psoriatic arthritis, advised pt to f/u with pcp for further workup f/u 2 weeks after injection
== END 2024-11-19 11:02 | disposition home or self-care (01) ==
LOC: PM 11:01
PROVIDERS: PCP Internal Medicine; Visit Provider Nurse Practitioner
DX: M25.552 Pain in left hip (principal); M46.1 Sacroiliitis, not elsewhere classified; Z79.891 Long term (current) use of opiate analgesic
CPT/HCPCS: 73502; G0463

== ENCOUNTER 2024-11-19 11:47 | Outpatient (OUT) | payer MEDICARE, SELFPAY ==
--- NOTE | 2024-11-19 | XR_ITS ---
The [place] [id number] Patient Name: PARMINDER MUNROE MRN: [id number] date: 1945 Sex: F Assigned Patient Location: [facility] Current Patient Location: [facility] Accession/Order Number: [id number] Exam Date: 11/19/2024 13:33 Report Date: 11/19/2024 13:33 At the request of: JB HOUSE NP Procedure: XR hip LT min 2V LEFT HIP - 2 views: CLINICAL HISTORY: Acute left hip pain for 2 weeks. COMPARISON: Pelvis 10/07/2018 FINDINGS: Mild degenerative changes of the left hip without acute bony process. Additional degenerative changes involving the visualized lower lumbar spine, left SI joint and pubic symphysis. XR/XR hip LT min 2V IMPRESSION: MILD DEGENERATIVE CHANGES INVOLVING THE LEFT HIP WITHOUT ACUTE BONY PROCESS.. Impression dictated by: Heriberto Williamson Jr., DTranOTran 11/19/2024 1:33 PM Dictation Location: [place] [address] Electronically authenticated by: [id number] Y Date: 11/19/2024 13:33
== END 2024-11-19 11:48 | disposition home or self-care (01) ==
PROVIDERS: PCP Internal Medicine; Visit Provider Nurse Practitioner
DX: M25.552 Pain in left hip (principal)
CPT/HCPCS: 73502

== ENCOUNTER 2024-12-07 09:41 | Day surgery (SDC) | payer MEDICARE, SELFPAY ==
--- OUTSIDE RECORDS SUMMARY | 2024-07-24 05:40 | XMS_ITS | Continuity of Care Document ---
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 Name Role Phone Jose ROMAN CCC-AChantel Unavailable Unavailab le Allergies, Adverse Reactions, Alerts Substance Reaction Status Criticality No Known Allergies Active No Inform ation Medications Medication Instructions Dosage Effective Dates (start - stop) Status Comments gabapentin 300 mg capsule TAKE 1 Capsule BY MOUTH EVERY DAY IN THE MORNING - Active trazodone 50 mg tablet - Act raz venlafaxine ER 225 mg tablet,extended release 24 hr TAKE ONE TABLET BY MOUTH DAILY - Active mirtazapine 7.5 mg tablet TAKE 1 Tablet BY MOUTH DAILY AT BEDTIME - Active tramadol 50 mg tablet - Acti ve baclofen 5 mg tablet - Activ e venlafaxine ER 75 mg capsule,extended release 24 hr TAKE 3 Capsules BY MOUTH EVERY DAY - Active gabapentin 100 mg capsule - Active levetiracetam 500 mg tablet - Active enoxaparin 30 mg/0.3 mL subcutaneous syringe - Active olanzapine 2.5 mg tablet - Active venlafaxine ER 150 mg capsule,extended release 24 hr - Active lorazepam 0.5 mg tablet TAKE 1 Tablet BY MOUTH ONCE DAILY - Active metformin ER 500 mg tablet,extended release 24 hr - Active lisinopril 10 mg tablet - Ac tive Problems Condition Type Effective Dates (start - stop) Clini hakan Status Comments No Known Problems Procedures Procedure Date COMPREHENSIVE HEARING TEST REMOVE IMPACTED EAR WAX REMOVE IMPACTED EAR WAX COMPRE OPH EXAM EST PT / REMOVE IMPACTED EAR WAX EYE EXAM WITH PHOTOS COMPRE OPH EXAM NEW PT / Advance Directives Directive Yes / No Effective Date File Name No Information Encounters Encounter Description Practice Location Reason(s) For Visit Diagnoses Date Provider Providers Copied on Encounter [facility] [address], [place], [place], [id number] , [facility] Sensorineural hearing loss, bilateral 5 Jose Golden. [address] [facility], [address], [place], [place], [id number], [place]. tel:[phone] Referring Provider: Anitha Lizarraga. [facility] [address], [place], [place], [id number] , [facility] impacted cerumen (chief complaint) Impacted cerumen, left ear Mar- 4 King Chacorta. [address] [facility], [address], [place], [place], [id number], [place]. tel:[phone] Referring Provider: Anitha Lizarraga. [facility] [address], [place], [place], [id number] , [facility] Impacted cerumen, left ear Jan- 4 King Chacorta. [address] [facility], [address], [place], [place], [id number], [place]. tel:[phone] Referring Provider: Anitha Lizarraga. [facility] [address], [place], [place], [id number] , [facility] Follow Up of Diabetic eye exam (chief complaint) Type 2 diabetes mellitus without complicationsChang es in retinal vascular appearance, bilateralDry eye syndrome of bilateral lacrimal glands Jan- [address] [facility] , [place], [place], [id number], [place]. Referring Provider: Anitha Lizarraga. [facility] [address], [place], [place], [id number] , [place] [facility] ear care exam (chief complaint) Impacted cerumen, bilateralImpacted cerumen, left ear 4 King Chacorta. [address] [facility], [address], [place], [place], [address], [place]. tel:[phone] Referring Provider: Anitha Lizarraga. [address] [place] [address] [address], [place], [place], [id number] , [facility] Diabetic eye exam (chief complaint) Changes in retinal vascular appearance, bilateralDry eye syndrome of bilateral lacrimal glandsType 2 diabetes mellitus without complications [address] , [place], [place], [id number], [place]. Referring Provider: Anitha Lizarraga. [address] [place] [address], [address], [place], [place], [id number] , [place] [facility] No Information [address] , [place], [place], [id number], [place]. Family History Family Member Type Diagnosis Age At Onset No Information Payers Payer name Insurance type Covered constitution party ID Authoriza tidina(s) BCBS Medicare [place] [id number] Social History Type Description Quantity Date Captured Comments Alcohol Use Details Unknown Caffeine Use Details Unknown Tobacco Use Status No Information Smoking Status No Information Sex Female Chief Complaint And Reason For Visit No Information Reason For Referral Reason For Referral No Information Plan Of Treatment Date Type Action Status Goal Dilated eye exam. Due on Jul due Goal Dental exam. Due on 025 due Goal Hemoglobin A1C. Due on due Goal Foot exam. Due on 5 due Goal ASCVD 10 year risk. Due on A due Goal Influenza vaccine. Due on Ap due Goal Depression screening. Due on due Goal Lipid panel. Due on 025 due Goal Pneumococcal vaccine. Due on due Goal Zoster vaccine (). Due on due Goal Td vaccine. Due on 25 due Goal Tobacco screening. Due on Ap due Goal Tdap. Due on due Goal DEXA scan. Due on due Goal Hepatitis C screening. Due o n due Goal Unhealthy drug u se screening. Due on due Goal Urine microalbumin. Due on A due Goal GFR. Due on due Goal Dental exam. Due on due Goal ASCVD 10 year risk. Due on due Goal Dilated eye exam. Due on Mar due Goal Foot exam. Due on due Goal GFR. Due on due Goal Hemoglobin A1C. Due on due Goal Urine microalbumin. Due on due Goal Pneumococcal vaccine. Due on due Goal Influenza vaccine. Due on due Goal Depression screening. Due on due Goal Lipid panel. Due on due Goal Td vaccine. Due on 24 due Goal Hepatitis C screening. Due o n due Goal Zoster vaccine (). Due on due Goal Tdap. Due on due Goal Unhealthy drug u se screening. Due on due Goal DEXA scan. Due on due Goal Foot exam. Due on due Goal Dental exam. Due on due Goal GFR. Due on due Goal Dilated eye exam. Due on Jan due Goal ASCVD 10 year risk. Due on O due Goal Urine microalbumin. Due on O due Goal Hemoglobin A1C. Due on due Goal Tdap. Due on due Goal Unhealthy drug u se screening. Due on due Goal Td vaccine. Due on due Goal DEXA scan. Due on due Goal Hepatitis C screening. Due o n due Goal Zoster vaccine (). Due on due Goal Influenza vaccine. Due on Oc due Goal Depression screening. Due on due Goal Lipid panel. Due on due Goal Pneumococcal vaccine. Due on due Goal Lipid panel. Due on due Goal Depression screening. Due on due Goal Pneumococcal vaccine. Due on due Goal Influenza vaccine. Due on Oc due Goal Unhealthy drug u se screening. Due on due Goal Zoster vaccine (1st). Due on due Goal Hepatitis C screening. Due o n due Goal Tdap. Due on due Goal DEXA scan. Due on due Goal Td vaccine. Due on due Goal Hemoglobin A1C. Due on due Goal Dental exam. Due on due Goal Urine microalbumin. Due on O due Goal Foot exam. Due on due Goal Dilated eye exam. Due on Jan due Goal GFR. Due on due Goal ASCVD 10 year risk. Due on due Goal Lipid panel. Due on due Goal Pneumococcal vaccine. Due on due Goal Depression screening. Due on due Goal Influenza vaccine. Due on due Goal DEXA scan. Due on due Goal Hepatitis C screening. Due o n due Goal FOBT. Due on due Goal Colonoscopy. Due on due Goal Zoster vaccine (). Due on due Goal Tdap. Due on due Goal Td vaccine. Due on due Goal Unhealthy drug u se screening. Due on due Goal Dental exam. Due on due Goal GFR. Due on due Goal Urine microalbumin. Due on due Goal Hemoglobin A1C. Due on due Goal Dilated eye exam. Due on August due Goal ASCVD 10 year risk. Due on due Goal Foot exam. Due on due Goal Dental exam. Due on due Goal GFR. Due on due Goal Urine microalbumin. Due on A due Goal Hemoglobin A1C. Due on due Goal Dilated eye exam. Due on Jul due Goal ASCVD 10 year risk. Due on A due Goal Foot exam. Due on due Goal Zoster vaccine (1st). Due on due Goal Tdap. Due on due Goal Td vaccine. Due on due Goal Pneumococcal vaccine. Due on due Goal Depression screening. Due on due Goal Influenza vaccine. Due on Ap due Goal Unhealthy drug u se screening. Due on due Goal DEXA scan. Due on due Goal Hepatitis C screening. Due o n due Goal Lipid panel. Due on due Goal FOBT. Due on due Goal Colonoscopy. Due on due Patient Education Learning About Your Ear s completed Patient Education Earwax Blockage: Care I nstructions completed Patient Education Earwax Blockage: Care I nstructions completed History Of Present Illness Encounter Date Complaint History Of Prese nt Illness Follow Up of Diabetic eye exam T he 78 year old patient presents for evaluation of Follow Up of Diabetic eye exam in the right eye and left eye. It affects Unsure. The symptom is constant. The condition is stable. Functional Impairment: Pt with uncontrolled muscle mvmts and poor verbals Diabetic eye exam The 77 year ol d patient presents for evaluation of Diabetic eye exam in the right eye and left eye. It affects Unsure. The symptom is constant. The condition is stable. Patient denies: eye pain. Functional Impairment: Pt with uncontrolled body movements Functional Status Date Functional Assessmen t No Information Instructions Date Instruction Additional Infor hodan Performed Cerumen Re moval as per protocol, left ear cleared. Follow up in 6-9 months for reevaluation for chronic cerumen impaction Related to Impacted cerumen, left ear Left ear with comple te cerumen impaction, Performed Cerumen Removal as per protocol, left ear cleared partially. If no history of TM rupture, ear surgeries, or ear trauma and with PCP approval, would recommend Debrox 5 gtts bid x 3 days in the left ear then a gentle warm water rinse on the 4th day or defer to PCP for treatment of choice prior to our next visit, Attempt Re-treat in 1-3 months Related to Impacted cerumen, left ear Impression/Plan - Mo derate retinal vascular changes consistent with hypertension; Moderate occlusive risk. We will monitor at regular intervals. Related to Changes in retinal vascular appearance, bilateral Jan- Impression/Plan - No active diabetic retinopathy present in either eye. We will monitor at regular intervals. No macular edema noted OU Related to Type 2 diabetes mellitus without complications Follow up - Return i n 12-15 months for dilated fundus exam. Impression/Plan - Dr y Eye Syndrome is asymptomatic; we will monitor for corneal changes. Related to Dry eye syndrome of bilateral lacrimal glands Right ear cleared. l eft ear cleared partially. Would recommend (If no history of TM rupture, ear trauma, or ear surgeries and with PCP approval) Debrox 5 gtts bid x 3 days in the left ear then a gentle warm water rinse on the 4th day or defer to PCP for treatment of choice prior to our next visit, Attempt Re-treat in 1-3 months Related to Impacted cerumen, bilateral Follow up - Return i n 6-9 months for dilated fundus exam. Impression/Plan - Dr y Eye Syndrome is asymptomatic; we will monitor for corneal changes. Related to Dry eye syndrome of bilateral lacrimal glands Impression/Plan - Mo derate retinal vascular changes consistent with hypertension; Moderate occlusive risk. We will monitor at regular intervals.Limited and fleeting views only Related to Changes in retinal vascular appearance, bilateral Impression/Plan - No active diabetic retinopathy present in either eye. We will monitor at regular intervals.Limited and fleeting views d/t uncontrolled body movements Related to Type 2 diabetes mellitus without complications Assessments Type Assessment Date assessment Sensorineural hearing loss, bila teral Patient Care Teams Name Effective Dates (start - stop) Status Members No Information
--- OUTSIDE RECORDS SUMMARY | 2024-12-07 09:44 | XMS_ITS | Encounter Summary ---
Author Organization [employer] Address [facility] [id number] [address] [place] [address] Care Team Providers Care Chemistry Tutor Name Role Phone Rusty Newman DO Primary Care Provider [phone] Encounter Details Date Type Department Care Team (Late st Contact Info) Description 05/01/2022 Telephone [facility] - Family Medicine [address] [place] [phone] Salena Gandhi CMA Social History Tobacco Use Types Packs/Day Years Used Date Smoking Tobacco: Never Smokeless Tobacco: Never Alcohol Use Standard Drinks/Week Comments No 0 (1 standard drink = 0.6 oz pur e alcohol) PHQ-2 Answer Date Recorded Total Score 0 04/23/2022 Childcare Answer Date Recorded Childcare Unknown 09/24/2018 Employment Answer Date Recorded Employment Unknown 09/24/2018 Purpose - Life Answer Date Recorded Purpose and direction in life Unknown Comments No Sex and Gender Information Value Date Recorded Sex Assigned at Not on file Legal Sex Female 11:29 AM EDT Gender Identity Not on file Sexual Orientation Not on file COVID-19 Exposure Response Date Recorded In the last month, have you been in contact with someone who was confirmed or suspected to have Coronavirus / COVID-19? No / Unsure 04/23/2022 11:53 AM EST documented as of this encounter Miscellaneous Notes * Telephone Encounter - Salena Gandhi CMA - 05/01/2022 5:46 PM EST Patient called and can not take her MRI at [facility] because it is not an open scan. She said she would like it sent to [place] because she has been there before and she was fine with theirs. documented in this encounter Plan of Treatment Upcoming Encounters Date Type Department Care Team (Late st Contact Info) Description 03/02/2025 2:20 PM EST Office Visit [facility] [address] [place] [address] documented as of this encounter Visit Diagnoses Not on filedocumented in this encounter Additional Health Concerns Infection Onset Date Last Indicated Resolved Time Respiratory Rule-Out 10/23/2024 10/23/2024 025 10:09 AM EDT Enteric Rule-Out 10/23/2024 10/23/2024 10/23/2024 3:11 PM EDT Respiratory Rule-Out 10/23/2024 10/23/2024 025 11:44 AM EDT Norovirus 10/23/2024 10/23/2024 10/27/2024 8:08 PM EDT Assessment Noted Time PHQ-9 Depression Total Score: 0 04/23/19 23 12:06 PM EST documented as of this encounter Care Teams Chemistry Tutor Relationship Specialty Start Date End Date Rusty Newman DO [address] [facility] [place] [address] PCP - General 11/09/13 documented as of this encounter
--- OUTSIDE RECORDS SUMMARY | 2024-12-07 09:44 | XMS_ITS | Encounter Summary ---
Author Organization [employer] Address [id number] [address] [place] [address] Care Team Providers Care Sdet Name Role Phone Rusty Newman Primary Care Provider [phone] Encounter Details Date Type Department Care Team (Late st Contact Info) Description 05/25/2024 Telephone [facility] - [facility] [address] [place] [phone] Mary Beth Osman CMA Social History Tobacco Use Types Packs/Day Years Used Date Smoking Tobacco: Never Smokeless Tobacco: Never Alcohol Use Standard Drinks/Week Comments No 0 (1 standard drink = 0.6 oz pur e alcohol) [facility] Utilities Answer Date Recorded In the past 12 months has [employer] electric, gas, oil, or water company threatened to shut off services in your home? No 02/27/2024 Social Connection and Isolat ion Panel [NHANES] Answer Date Recorded In a typical week, how many times do you talk on the phone with family, friends, or neighbors? More than three times a week 11/27/2022 How often do you get togethe r with friends or relatives? More than three times a week 11/27/2022 How often do you attend chur ch or restoration services? More than 4 times per year 11/27/2022 Do you belong to any clubs o r organizations such as sikh groups, unions, fraternal or athletic groups, or school groups? Yes 11/27/2022 How often do you attend meet ings of the clubs or organizations you belong to? More than 4 times per year 11/27/2022 Are you , , di vorced, , never , or living with a partner? 11/27/2022 AUDIT-C Answer Date Recorded Q1: How often do you have a drink containing alcohol? Never 11/27/2022 Q2: How many drinks containi ng alcohol do you have on a typical day when you are drinking? Patient does not drink Q3: How often do you have si x or more drinks on one occasion? Never 11/27/2022 Overall Financial Resource Strain (CARDIA) Answe r Date Recorded How hard is it for you to pa y for the very basics like food, housing, medical care, and heating? Somewhat hard 02/27/2024 PHQ-2 Answer Date Recorded Total Score 0 05/19/2024 [facility] [place] [facility] Occupat ional Health - Occupational Stress Questionnaire Answer Date Recorded Do you feel stress - tense, restless, nervous, or anxious, or unable to sleep at night because your mind is troubled all the time - these days? Rather much 02/27/2024 Exercise Vital Sign Answer Date Recorde d On average, how many days pe r week do you engage in moderate to strenuous exercise (like a brisk walk)? 2 days 02/27/2024 On average, how many minutes do you engage in exercise at this level? 40 min 02/27/2024 PRAPARE - Transportation Answer Date Re corded In the past 12 months, has l ack of transportation kept you from medical appointments or from getting medications? No 11/13 In the past 12 months, has l ack of transportation kept you from meetings, work, or from getting things needed for daily living? No 11/27/2022 Housing Instability Answer Date Recorde d Are you worried or concerned that in the next two months you may not have stable housing that you own, rent or stay in as a part of a household? No 11/27/2022 Childcare Answer Date Recorded Do problems getting child ca re make it difficult for you to work or study? No 11/27/2022 Employment Answer Date Recorded Do you need help finding a l ocal career center and/or a training program? No 11/27/2022 Hunger Screening Answer Date Recorded Within the past 12 months we worried whether our food would run out before we got money to buy more. Never True 05/19/2024 Within the past 12 months th e food we bought just didn't last and we didn't have money to get more. Never True 05/19/2024 Purpose - Life Answer Date Recorded I have a purpose and direction in my life. Agree 11/27/2022 Comments No Sex and Gender Information Value Date Recorded Sex Assigned at Not on file Legal Sex Female 11:29 AM EDT Gender Identity Not on file Sexual Orientation Not on file documented as of this encounter Miscellaneous Notes * Telephone Encounter - Mary Beth Osman CMA - 05/25/2024 11:39 AM EST ----- Message from Dr. Rusty Newman DO sent at 05/25/2024 11:09 AM EST ----- Reviewed. Her foot x-ray shows some mild arthritis. I think most of the pain she is experiencing is from her pinched nerve in her back. She needs to contact pain management for an appointment soon. * Telephone Encounter - Mary Beth Osman CMA - 05/25/2024 11:39 AM EST Called pt , she is scheduled to go see them Saturday documented in this encounter Plan of Treatment Upcoming Encounters Date Type Department Care Team (Late st Contact Info) Description 03/02/2025 2:20 PM EST Office Visit [facility] [address] [place] [address] documented as of this encounter Visit Diagnoses Not on filedocumented in this encounter Additional Health Concerns Infection Onset Date Last Indicated Resolved Time Respiratory Rule-Out 10/23/2024 10/23/2024 025 10:09 AM EDT Enteric Rule-Out 10/23/2024 10/23/2024 10/23/2024 3:11 PM EDT Respiratory Rule-Out 10/23/2024 10/23/2024 025 11:44 AM EDT Norovirus 10/23/2024 10/23/2024 10/27/2024 8:08 PM EDT Assessment Noted Time PHQ-9 Depression Total Score: 0 05/19/19 25 2:29 PM EST documented as of this encounter Care Teams Sdet Relationship Specialty Start Date End Date Rusty Newman DO [address] [place] [address] PCP - General 11/09/13 documented as of this encounter
--- OUTSIDE RECORDS SUMMARY | 2024-12-07 09:44 | XMS_ITS | Encounter Summary ---
Author Organization [facility] [employer] s tem Address [facility] [id number] [address] [place] [address] Care Team Providers Care Drywall Taper Name Role Phone Rusty Newman DO Primary Care Provider [phone] Reason for Visit * Reason Comments Med Change Request Encounter Details Date Type Department Care Team (Late Contact Info) Description 05/02/2022 Refill [facility] [address] [place] [address] Rusty Newman DO [address] [place] [address] Cervical radiculopathy due to trauma Social History Tobacco Use Types Packs/Day Years [...] AM EST documented as of this encounter Plan of Treatment Upcoming Encounters Date Type Department Care Team (Late st Contact Info) Description 03/02/2025 2:20 PM EST Office Visit [facility] [address] [place] [address] documented as of this encounter Visit Diagnoses Diagnosis Cervical radiculopathy due to trauma documented in this encounter Additional Health Concerns Infection [...] documented as of this encounter Care Teams Drywall Taper Relationship Specialty Start Date End Date Rusty Newman DO [address] [place] [address] PCP - General 11/09/13 documented as of this encounter
--- OUTSIDE RECORDS SUMMARY | 2024-12-07 09:44 | XMS_ITS | Encounter Summary ---
Author Organization [employer] tem Address [facility] [id number] [address] [place] [address] Care Team Providers Care Production Line Technician Name Role Phone Rusty Newman DO Primary Care Provider [phone] Encounter Details Date Type Department Care Team (Late st Contact Info) Description 02/04/2024 Documentation Alicia Gaston [facility] - Medical Oncology [address] [place] [address] Marianna Flynn RN Social History Tobacco Use Types Packs/Day Years Used Date Smoking Tobacco: Never Smokeless Tobacco: Never Alcohol Use Standard Drinks/Week Comments No 0 (1 standard drink = 0.6 oz pur e alcohol) Social Connection and Isolat ion Panel [NHANES] Answer Date Recorded In a typical week, how many times do you talk on the phone with family, friends, or neighbors? More than three times a week 11/27/2022 How often do you get togethe r with friends or relatives? More than three times a week 11/27/2022 How often do you attend chur ch or latter day services? More than 4 times per year 11/27/2022 Do you belong to any clubs o r organizations such as jew groups, unions, fraternal or athletic groups, or [...] like food, housing, medical care, and heating? Hard 11/27/2022 PHQ-2 Answer Date Recorded Total Score 0 01/20/2024 [facility] - Occupational Stress Questionnaire Answer Date Recorded Do you feel stress - tense, restless, nervous, or anxious, or unable to sleep at night because your mind is troubled all the time - these days? Very much 11/27/2022 Exercise Vital Sign Answer Date Recorde d On average, how many days pe r week do you engage in moderate to strenuous exercise (like a brisk walk)? 2 days 11/27/2022 On average, how many minutes do you engage in exercise at this level? 40 min 11/27/2022 PRAPARE - Transportation Answer Date Re corded [...] Recorded Do you need help finding a [facility] and/or a training program? No 11/27/2022 Hunger Screening Answer Date Recorded Within the past 12 months we worried whether our food would run out before we got money to buy more. Never True 01/20/2024 Within the past 12 months th e food we bought just didn't last and we didn't have money to get more. Never True 01/20/2024 Purpose - Life Answer Date Recorded I have a purpose and direction in my life. Agree 11/27/2022 Comments No Sex and Gender Information Value Date Recorded Sex Assigned at Not on file Legal Sex Female 11:29 AM EDT Gender Identity Not on file Sexual Orientation Not on file documented as of this encounter Plan of Treatment Upcoming Encounters Date Type Department Care Team (Late st Contact Info) Description 03/02/2025 2:20 PM EST Office Visit [facility] Internal Medicine - Family Medicine [address] [place] [address] Scheduled Orders Name Type Priority Associated Diagnoses Orde r Schedule Creatinine, serum Lab Routine Age-related osteoporosis without current pathological fracture 1 Occurrences starting 02/04/2024 until 02/03/2025 Vitamin D 25 hydroxy Lab Routine Age-related osteoporosis without current pathological fracture 1 Occurrences starting 02/04/2024 until 02/03/2025 Calcium Lab Routine Age-related osteoporosis without current pathological fracture 1 Occurrences starting 02/04/2024 until 02/03/2025 Albumin Lab Routine Age-related osteoporosis without current pathological fracture 1 Occurrences starting 02/04/2024 until 02/03/2025 documented as of this encounter Visit Diagnoses Diagnosis Age-related osteoporosis without current pathological fracture- Primary documented in this encounter Additional Health Concerns Infection Onset Date Last Indicated Resolved Time Respiratory Rule-Out 10/23/2024 10/23/2024 025 10:09 AM EDT Enteric Rule-Out 10/23/2024 10/23/2024 10/23/2024 3:11 PM EDT Respiratory Rule-Out 10/23/2024 10/23/2024 025 11:44 AM EDT Norovirus 10/23/2024 10/23/2024 10/27/2024 8:08 PM EDT Assessment Noted Time PHQ-9 Depression Total Score: 0 01/20/20 24 11:54 AM EDT documented as of this encounter Care Teams Production Line Technician Relationship Specialty Start Date End Date Rusty Newman DO [address] [facility] [place] [address] PCP - General 11/09/13 documented as of this encounter
--- OUTSIDE RECORDS SUMMARY | 2024-12-07 09:44 | XMS_ITS | Encounter Summary ---
Author Organization [facility] [employer] s tem Address [id number] [place] [address] Care Team Providers Care Cushion Cover Inspector Name Role Phone Rusty Newman DO Primary Care Provider [phone] Encounter Details Date Type Department Care Team (Late st Contact Info) Description 09/09/2024 Orders Only [facility] Internal Medicine - Family Medicine [address] [place] [address] Ref Prov, [place] [address] Social History Tobacco Use Types Packs/Day Years Used Date Smoking Tobacco: Never Smokeless Tobacco: Never Alcohol Use Standard Drinks/Week Comments No 0 (1 standard drink = 0.6 oz pur e alcohol) [facility] Utilities Answer Date Recorded In the past 12 months has e electric, gas, oil, or water company threatened [...] often do you attend chur ch or spiritism services? More than 4 times per year 11/27/2022 Do you belong to any clubs o r organizations such as gnosticism groups, unions, fraternal or athletic groups, or [...] PHQ-2 Answer Date Recorded Total Score 0 08/18/2024 [facility] - Occupational Stress [...] Recorded Do you need help finding a [facility] and/or a training program? No 11/27/2022 Hunger Screening Answer Date Recorded Within the past 12 months we worried whether our food would run out before we got money to buy more. Never True 08/18/2024 Within the past 12 months th e food we bought just didn't last and we didn't have money to get more. Never True 08/18/2024 Purpose - Life Answer Date Recorded I [...] Internal Medicine - Family Medicine [address] [facility] [place] [address] documented as of this encounter Procedures Procedure Name Priority Date/Time Associated Diagnosis Comments MR SHOULDER RT WO CONT Routine 08/11/2024 11:33 AM EDT MR LUMBAR SPINE WO CONT Routine 08/11/2024 11:31 AM EDT documented in this encounter Results * MR shoulder right without contrast (08/11/2024 11:33 AM EDT) Anatomical Region Laterality Modality MSK, Shoulder, Upper Extremities, MSK Covera Rig ht Magnetic Resonance us Not In System Ref Prov IMG MRI ORDERABLES Final Result * MR lumbar spine without contrast (08/11/2024 11:31 AM EDT) Anatomical Region Laterality Modality MSK, Neuro, Spine, L-spine, Spine Covera N/A Magnetic Resonance us Not In System Ref Prov IMG MRI ORDERABLES Final Result documented in this encounter Visit Diagnoses Not on filedocumented in this encounter Additional Health Concerns Infection Onset Date Last Indicated Resolved Time Respiratory Rule-Out 10/23/2024 10/23/2024 025 10:09 AM EDT Enteric Rule-Out 10/23/2024 10/23/2024 10/23/2024 3:11 PM EDT Respiratory Rule-Out 10/23/2024 10/23/2024 025 11:44 AM EDT Norovirus 10/23/2024 10/23/2024 10/27/2024 8:08 PM EDT Assessment Noted Time PHQ-9 Depression Total Score: 0 08/19/19 25 3:10 PM EDT documented as of this encounter Care Teams Cushion Cover Inspector Relationship Specialty Start Date End Date Rusty Newman DO [address] [place] [address] PCP - General 11/09/13 documented as of this encounter
--- OUTSIDE RECORDS SUMMARY | 2024-12-07 09:44 | XMS_ITS | Encounter Summary ---
[facility] [id number] [address] [place] [address] Care Team Providers Care Crtt Name Role Phone Rusty Newman DO Primary Care Provider [phone] Reason for Visit * Reason Comments Med Refill Encounter Details Date Type Department Care Team (Late st Contact Info) Description 05/23/2022 Refill [facility] Internal Medicine - Family Medicine [address] [place] [address] Rusty Newman DO [address] [place] [address] Left cervical radiculopathy Social History Tobacco Use Types Packs/Day Years [...] have Coronavirus / COVID-19? No / Unsure 05/14/2022 11:53 AM EST documented as of this encounter Plan of Treatment Upcoming Encounters Date Type Department Care Team (Late st Contact Info) Description 03/02/2025 2:20 PM EST Office Visit [facility] - Family Medicine [address] [place] [address] documented as of this encounter Visit Diagnoses Diagnosis Left cervical radiculopathy documented in this encounter Additional Health Concerns [...] documented as of this encounter Care Teams Crtt Relationship Specialty Start Date End Date Rusty Newman DO [address] [place] [address] PCP - General 11/09/13 documented as of this encounter
--- OUTSIDE RECORDS SUMMARY | 2024-12-07 09:44 | XMS_ITS | Clinical Summary ---
Author Organization be2 tem Address [id number] [address] [place] [address] Care Team Providers Care Heel Lining Paster Name Role Phone Rusty Newman Primary Care Provider [phone] Allergies Active Allergy Reactions Criticality Noted Date Comments Aspirin, Buffered 05/27/2017 Codeine Rash Low 05/27/2017 Etodolac 04/17/2022 Iodine Anaphylaxis High 05/27/2017 Latex 04/17/2022 Penicillins 05/27/2017 Sulfa (Sulfonamide Antibiotics) Rash Low 05/16 Medications acetaminophen (TYLENOL) 650 mg 8 hr tablet Take 1 tablet (650 mg total) by mouth in the morning. Active rOPINIRole (REQUIP) 0.25 mg tablet 03/15/20 22 Active ondansetron ODT (ZOFRAN ODT) 4 mg disintegrating tabletIndications: Nausea and vomiting, unspecified vomiting type Dissolve 1 tablet (4 mg total) on tongue every 8 (eight) hours as needed for nausea or vomiting. 20 tablet 12/24/19 24 Active cholecalciferol (VITAMIN D3) 50,000 units capsuleIndications :Vitamin D deficiency, unspecified TAKE 1 CAPSULE BY MOUTH ONCE WEEKLY 12 capsule 3 02/25/20 24 Active rosuvastatin (CRESTOR) 10 mg tabletIndications: Hyperlipidemia, unspecified TAKE 1 TABLET BY MOUTH EVERY DAY 90 tablet 1 06/09/19 25 Active tiZANidine (ZANAFLEX) 4 mg capsuleIndications :muscle spasm Take 1 capsule (4 mg total) by mouth in the morning and 1 capsule (4 mg total) before bedtime. Indications : muscle spasm. Unsure if taking. 08/03/19 25 Active levothyroxine (SYNTHROID, LEVOTHROID) 50 MCG tabletIndications: Hypothyroidism TAKE 1 TABLET BY MOUTH EVERY DAY 90 tablet 1 08/31/19 25 Active meloxicam (MOBIC) 15 mg tabletIndications: Degenerative lumbar spinal stenosis Take 1 tablet (15 mg total) by mouth in the morning. 30 tablet 11/03/19 25 Active estradioL (ESTRACE) 0.01 % (0.1 mg/gram) vaginal creamIndications:L ichen planus atrophicus Use at night once or twice weekly 42.5 g 1 11/03/19 25 Active metoclopramide (REGLAN) 10 mg tabletIndications: Hiatal hernia Take 1 tablet (10 mg total) by mouth daily as needed (nausea). 10 tablet 11/03/19 25 Active cyanocobalamin 1000 MCG tabletIndications: Cobalamin deficiency TAKE 1 TABLET (1,000 MCG TOTAL) BY MOUTH IN THE MORNING 90 tablet 1 11/19/19 25 Active cyanocobalamin (vitamin B-12) 1000 MCG tabletIndications: Cobalamin deficiency Take 1 tablet (1,000 mcg total) by mouth in the morning. 90 tablet 1 05/20/19 25 025 Discontinued traMADoL (ULTRAM) 50 mg tabletIndications: Degenerative lumbar spinal stenosis Take 1 tablet (50 mg total) by mouth 2 (two) times a day as needed for pain for up to 7 days. 14 tablet 11/11/19 25 025 Active Problems Problem Noted Date Diagnosed Date Age-related osteoporosis wit hout current pathological fracture 12/31/2022 Hiatal hernia 04/17/2022 Cobalamin deficiency 04/19/2021 Cystocele with rectocele 12/15/2020 Obstructive sleep apnea syndrome 12/15/2020 Hypothyroidism 12/15/2020 Hyperlipidemia 12/15/2020 Alopecia 12/15/2020 Osteoarthritis 12/15/2020 Lichen sclerosus of female genitalia 06/30/2018 Depressive disorder 03/27/2018 DDD (degenerative disc disease), lumbar 05/27/19 18 Encounters Date Type Department Care Team Description 11/18/2024 Refill [facility] [address] [place] [address] Rusty Newman, DO Cobalamin deficiency 11/10/2024 Orders Only [facility] [address] [place] [address] Rusty Newman, Degenerative lumbar spinal stenosis (Primary Dx) 11/06/2024 Results Follow-Up [facility] [address] [place] [address] Rusty Newman, DO X-ray spine lumbar 2 or 3 views 11/05/2024 Telephone [facility] [address] [place] [address] Salena Gandhi CMA 11/03/2024 12:45 PM EDT - 11/03/2024 11:59 PM EDT Hospital Encounter [facility] - Radiology [address] [address] Rusty Newman, Degenerative lumbar spinal stenosis Discharge Disposition: Home 11/02/2024 4:15 PM EDT [facility] [address] [place] [address] Rusty Newman, Gastroenteritis due to norovirus (Primary Dx); Degenerative lumbar spinal stenosis; Hiatal hernia; 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 Travel 10/26/2024 Results Follow-Up [facility] - Emergency [address] [place] [address] Libia Flores RN GI Panel(stool pathogen panel) 10/26/2024 Telephone [facility] [address] [place] [address] Marcia Holder [facility] Er Follow-up 10/23/2024 8:18 AM EDT - 10/23/2024 12:43 PM EDT Emergency [facility] - Emergency [address] [place] [address] Kasie Mosley MD Nausea vomiting and diarrhea (Primary Dx); Acute cystitis without hematuria Discharge Disposition: Home 10/23/2024 Travel 09/09/2024 Orders Only [facility] [address] [place] [address] Ref Prov, Not In System from Last 3 Months Immunizations Immunization Administration Dates Next Due Covid-19, Mrna, Lnp-s, Pf,tr is-sucrose,30 Mcg/0.3ml Seasonal 01/20/2024 Influenza (IM) Preservative Free 01/11/2016,12/15 Influenza, Injectable, Mdck, Preservative Free, Quad 04/24/2017 Influenza, Trivalent, Adjuvanted 01/20/2024 Pneumococcal Conjugate 13-Valent 01/05/2015 Pneumococcal Polysaccharide 03/15/2016, 5 Tdap 05/21/2014 Family History Medical History Relation Name Comments Prostate cancer Brother 1 Phoenix Colon cancer Brother 2 Narayan Lung cancer Brother 2 Narayan Prostate cancer Brother 2 Narayan Kidney disease Brother 3 Gamaliel Prostate cancer Brother 3 Gamaliel Colon cancer Father Colon polyps Father Diabetes Father Prostate cancer Father Jon Breast Cancer Maternal Grandmother Breast cancer Maternal Grandmother 50s Alzheimer's disease Mother Jon Breast Cancer Paternal Grandmother Breast cancer Paternal Grandmother 60s Relation Name Status Comments Brother 1 Phoenix Alive Brother 2 Narayan Brother 3 Gamaliel Alive Father Maternal Grandmother Mother Paternal Grandmother Social History Tobacco Use Types Packs/Day Years Used Date Smoking Tobacco: Never Smokeless Tobacco: Never Tobacco Cessation:Counseling Given: Not Answered Alcohol Use Standard Drinks/Week Comments No 0 (1 standard drink = 0.6 oz pur e alcohol) [facility] Utilities Answer Date Recorded In the past 12 months has [employer], gas, oil, or water [email or web address] threatened to shut off services in your [...] week 11/27/2022 How often do you attend [facility] or mormon services? More than 4 times per year 11/27/2022 Do you belong to any clubs o r organizations such as christianity groups, unions, fraternal or athletic groups, or [...] PHQ-2 Answer Date Recorded Total Score 0 11/02/2024 [facility] - Occupational Stress [...] Recorded Do you need help finding a [facility] and/or a training program? No 11/27/2022 Hunger Screening Answer Date Recorded Within the past 12 months we worried whether our food would run out before we got money to buy more. Never True 11/02/2024 Within the past 12 months th e food we bought just didn't last and we didn't have money to get more. Never True 11/02/2024 Purpose - Life Answer Date Recorded I have a purpose and direction in my life. Agree 11/27/2022 Comments No Sex and Gender Information Value Date Recorded Sex Assigned at Not on file Legal Sex Female 11:29 AM EDT Gender Identity Not on file Sexual Orientation Not on file Last Filed Vital Signs Vital Sign Reading Time Taken Comments Blood Pressure 142/82 11/02/2024 4:15 PM EDT Pulse 63 11/02/2024 4:15 PM EDT Temperature 36.8 C (98.2 F) 11/02/2024 4:15 PM EDT Respiratory Rate 18 11/02/2024 4:15 PM EDT Oxygen Saturation 99% 11/02/2024 4:15 PM EDT Inhaled Oxygen Concentration - - Weight 67 kg (147 lb 12.8 oz) 11/02/2024 4:15 PM EDT Height 149.9 cm (4' 11.02 ) 11/02/2024 4:15 PM E DT Body Mass Index 29.84 11/02/2024 4:15 PM EDT Plan of Treatment Upcoming Encounters Date Type Department Care Team (Late st Contact Info) Description 03/02/2025 2:20 PM EST Office Visit [facility] [address] [place] [address] Health Maintenance Due Date Last Done Comments Zoster (Shingles) Vaccine (1 of 2) 12/20/1997 DTaP,Tdap and Td Vaccines (2 - Td or Tdap) 05/21/2024 05/21/2014 COVID-19 Vaccine (2023-2 5 season) 2024 01/20/2024, 01/12/2021, 07/14/2020, Additional history exists Influenza Vaccine 12/14/2024 01/20/2024, , 01/11/2016, Additional history exists Medicare Annual Wellness Visit 02/26/2025 02/27/2024 , 11/27/2022 Depression Screening 11/02/2025 11/02/2024 Fall Risk Screening 11/02/2025 11/02/2024 Tobacco Screening 11/02/2025 11/02/2024 Medical Devices Not on file Procedures Procedure Name Priority Date/Time Associated Diagnosis Comments XR SPINE LUMBAR 2 OR 3 VWS Routine 11/03/2024 1:10 PM EDT Degenerative lumbar spinal stenosis POCT NURSING URINE MACROSCOPIC UA Routine 10/23/2024 9:59 AM EDT GI PANEL STOOL PATHOGEN PANEL Routine 10/23/2024 9:48 AM EDT ER EXTRA URINE CULTURE STAT 10/23/2024 9:48 AM EDT ER EXTRA URINE STAT 10/23/2024 9:[address] ABDOMEN AND PELVIS WO CONT STAT 10/23/2024 9:38 AM EDT SARS/FLU A+B/RSV BY NAAT/MOLECULAR (M4RT COLLECTION TUBE) STAT 10/23/2024 9:17 AM EDT MAGNESIUM STAT Add-on 10/23/2024 9:03 AM EDT LIPASE STAT 10/23/2024 9:03 AM EDT COMPREHENSIVE METABOLIC PANEL STAT 10/23/2024 9:03 AM EDT CBC WITH AUTO DIFFERENTIAL STAT 10/23/2024 9:03 AM EDT EXTRA TUBES BLUE TOP Routine 10/23/2024 9:02 AM EDT EXTRA TUBES Routine 10/23/2024 9:02 AM EDT from Last 3 Months Results * X-ray spine lumbar 2 or 3 views (11/03/2024 1:10 PM EDT) Anatomical Region Laterality Modality MSK, Neuro, Spine, L-spine N/A Compu ghassan Radiography 11/05/2024 10:4 0 PM EDT Narrative 11/05/2024 10:41 PM EDT CLINICAL INFORMATION: Degenerative lumbar spinal stenosis TECHNIQUE: Lumbo-sacral spine radiographs performed. Three images acquired. COMPARISON: No relevant prior studies available. FINDINGS: Vertebral body heights of the lumbar spine are maintained. Grade 1 anterolisthesis of L4 and L5. Moderate to moderate multilevel degenerative changes SI joints are symmetric IMPRESSION: * Mild to moderate multilevel degenerative changes of the lumbar spine, grade 1 anterolisthesis of L4 on L5. Finalized by Peterson Nugent MD on 11/05/2024 10:41 PM Procedure Note Peterson Nugent MD - 11/05/2024 CLINICAL INFORMATION: Degenerative lumbar spinal stenosis TECHNIQUE: Lumbo-sacral spine radiographs performed. Three images acquired. COMPARISON: No relevant prior studies available. FINDINGS: Vertebral body heights of the lumbar spine are maintained. Grade 1anterolisthesis of L4 and L5. Moderate to moderate multilevel degenerativechanges SI joints are symmetric IMPRESSION: * Mild to moderate multilevel degenerative changes of the lumbar spine,grade 1 anterolisthesis of L4 on L5. Finalized by Peterson Nugent MD on 11/05/2024 10:41 PM Rusty Newman DO IM DIAGNOSTIC IMAGING ORDERABLE S Final Result * (ABNORMAL) POCT Nursing Urine Macroscopic UA (10/23/2024 9:59 AM EDT) POC Urine Specific [place] 1.020 1.010, 1.015, 1.020, 1.025 10/23/2024 9:52 AM EDT [facility] POC Urine Leukocyte Esterase Negative Negative 10/23/2024 9:52 AM EDT [facility] POC Urine Nitrite Positive(A) Negative 10/23/2024 9:52 AM EDT [facility] POC Urine pH 7.0 5.0, 6.0, 6.5, 7.0, 7.5, 8.0, 8.5, 5.5 10/23/2024 9:52 AM EDT [facility] POC Urine Protein Trace(A) Negative 10/23/2024 9:52 AM EDT [facility] POC Urine Glucose Negative Negative 10/23/2024 9:52 AM EDT [facility] POC Urine Ketones 15 mg/dL(A) Negative 10/23/2024 9:52 AM EDT [facility] POC Urine Urobilinogen 0.2 E.U./dL 10/23/2024 9:52 AM EDT [facility] POC Urine Bilirubin Negative Negative 10/23/2024 9:52 AM EDT [facility] POC Urine Blood/HGB Trace(A) Negative 10/23/2024 9:52 AM EDT [facility] Urine 10/23/2024 9:59 AM EDT 10/23/2024 9:52 AM EDT us Kasie Mosley MD POINT OF CARE TEST ORDERABLES Final Result Performing Organization Address City/[facility]/ZIP Co de Phone Number [facility] [address] [place] [address], * Extra Urine Culture (10/23/2024 9:48 AM EDT) Extra Tube Auto Resulted 10/23/2024 12:02 PM EDT [facility] Urine Urine specimen collection, clean catch / Unknown 10/23/2024 9:48 AM EDT 10/23/2024 11:03 AM EDT us Kasie Mosley MD URINE ORDERABLES Final Result [facility] [address] [place] [address], [place] * (ABNORMAL) GI Panel(stool pathogen panel) (10/23/2024 9:48 AM EDT) CAMPYLOBACTER Not Detected Not Detected 10/23/2024 3:11 PM EDT [facility] PLESIOMONAS Not Detected Not Detected 10/23/2024 3:11 PM EDT [facility] SALMONELLA Not Detected Not Detected 10/23/2024 3:11 PM EDT [facility] VIBRIO Not Detected Not Detected 10/23/2024 3:11 PM EDT [facility] VIBRIO CHOLERAE Not Detected Not Detected 10/23/2024 3:11 PM EDT [facility] Y. ENTEROCOLITICA Not Detected Not Detected 10/23/2024 3:11 PM EDT [facility] AGGREGATIVE E COLI Not Detected Not Detected 10/23/2024 3:11 PM EDT [facility] PATHOGENIC E COLI Not Detected Not Detected 10/23/2024 3:11 PM EDT [facility] TOXIGENIC E COLI Not Detected Not Detected 10/23/2024 3:11 PM EDT [facility] SHIGA TOXIN E COLI Not Detected Not Detected 10/23/2024 3:11 PM EDT [facility] SHIGELLA-E COLI Not Detected Not Detected 10/23/2024 3:11 PM EDT [facility] CRYPTOSPORIDIUM Not Detected Not Detected 10/23/2024 3:11 PM EDT [facility] CYCLOSPORA Not Detected Not Detected 10/23/2024 3:11 PM EDT [facility] E HISTOLYTICA Not Detected Not Detected 10/23/2024 3:11 PM EDT [facility] GIARDIA LAMBLIA Not Detected Not Detected 10/23/2024 3:11 PM EDT [facility] ADENOVIRUS Not Detected Not Detected 10/23/2024 3:11 PM EDT [facility] ASTROVIRUS Not Detected Not Detected 10/23/2024 3:11 PM EDT [facility] NOROVIRUS Detected(A) Not Detected 10/23/2024 3:11 PM EDT [facility] Comment:Detects the followin g: Norovirus Genogroups I, II. The filtration plant operator has reported an increase in false positive Norovirus results. If the positive test is inconsistent with clinical presentation, a secondary method should be used to confirm the results. ROTAVIRUS A Not Detected Not Detected 10/23/2024 3:11 PM EDT [facility] SAPOVIRUS Not Detected Not Detected 10/23/2024 3:11 PM EDT [facility] Stool Feces / Unknown 10/23/2024 9 :48 AM EDT 10/23/2024 11:03 AM EDT us Kasie Mosley MD BODY FLUIDS AND STOOLS ORDERA BLES Final Result [facility] [address] [place] [address], [place] [phone] * Extra Urine (10/23/2024 9:48 AM EDT) Extra Tube Auto Resulted 10/23/2024 12:02 PM EDT [facility] Urine Urine specimen collection, clean catch / Unknown 10/23/2024 9:48 AM EDT 10/23/2024 11:03 AM EDT us Kasie Mosley MD URINE ORDERABLES Final Result [facility] [address] [place] [address], [place] * CT abdomen and pelvis without contrast (10/23/2024 9:38 AM EDT) Anatomical Region Laterality Modality Body, Abdomen, Body Covera N/A Compu ghassan Tomography 10/23/2024 10:1 0 AM EDT Narrative 10/23/2024 10:[address] of the abdomen and pelvis dated 10/23/2024 at 9:17 AM INDICATION: Abdominal pain, nausea and vomiting. PROCEDURE: Automatic radiation exposure lowering techniques were utilized. All CT scans at this facility use dose modulation, iterative reconstruction, and/or weight based dosing when appropriate to reduce radiation dose to as low as reasonably achievable.. A nonenhanced CT of the abdomen and pelvis and sagittal and coronal reformats obtained. FINDINGS: Comparison is 12/16/2013. Motion artifacts compromise the evaluation. Status post cholecystectomy. Given the lack of intravenous contrast, and motion artifacts, no acute abnormality seen in the liver, spleen, adrenal glands, or pancreas. The gallbladder is surgically absent. No hydronephrosis of the kidneys. No renal calculi. Diverticulosis of the sigmoid without CT evidence of acute diverticulitis. No dilated bowel loops or free fluid. IMPRESSION: 1. Compromised due to motion artifacts and lack of intravenous contrast. 2. No kidney stones or hydronephrosis. 3. No acute abnormality seen. Finalized by Mono Mcmanus MD on 10/23/2024 10:12 AM Procedure Note Mono Mcmanus MD - 10/23/[address] of the abdomen and pelvis dated 10/23/2024 at 9:17 AM INDICATION: Abdominal pain, nausea and vomiting. PROCEDURE: Automatic radiation exposure lowering techniques were utilized.All CT scans at this facility use dose modulation, iterativereconstruction, and/or weight based dosing when appropriate to reduceradiation dose to as low as reasonably achievable.. A nonenhanced CT ofthe abdomen and pelvis and sagittal and coronal reformats obtained. FINDINGS: Comparison is 12/16/2013. Motion artifacts compromise theevaluation. Status post cholecystectomy. Given the lack of intravenouscontrast, and motion artifacts, no acute abnormality seen in the liver,spleen, adrenal glands, or pancreas. The gallbladder is surgically absent.No hydronephrosis of the kidneys. No renal calculi. Diverticulosis of thesigmoid without CT evidence of acute diverticulitis. No dilated bowelloops or free fluid. IMPRESSION: 1. Compromised due to motion artifacts and lack of intravenous contrast. 2. No kidney stones or hydronephrosis. 3. No acute abnormality seen. Finalized by Mono Mcmanus MD on 10/23/2024 10:12 AM Kasie Mosley MD IM CT ORDERABLES Final Resul t * SARS/FLU A+B/RSV by NAAT/Molecular (M4RT Collection Tube) (10/23/2024 9:17 AM EDT) [facility] FLU A PCR Negative Negative 10/23/2024 10:09 AM EDT [facility] FLU B PCR Negative Negative 10/23/2024 10:09 AM EDT [facility] RSV BY PCR Negative Negative 10/23/2024 10:09 AM EDT [facility] SARS COV 2 BY PCR Not Detected Not Detected 10/23/2024 10:09 AM EDT [facility] Swab Nasopharyngeal structure / Unknown 10/23/2024 9:17 AM EDT 10/23/2024 9:27 AM EDT [facility] - 10/23/2024 10:09 AM EDT The Xpert Xpress SARS-CoV-2/Flu/RSV Plus test is a rapid, multiplexed real-time RT-PCR test intended for the simultaneous qualitative detection and differentiation of SARS-CoV-2, influenza A, influenza B and respiratory syncytial virus (RSV) viral RNA from individuals suspected of respiratory viral infection consistent with COVID-19 by Their healthcare provider. This test has not been validated in asymptomatic patients. The Xpert Xpress SARS-CoV-2 test is intended for use by qualified and trained operators who are performing tests using either [facility] or [facility] systems and is limited to laboratories that [...] acute phase of infection. Positive results are Indicative of the presence of the identified virus, [...] specimen repeat. Fact Sheet for Healthcare Providers: https://www.fda.gov/media/060702/download Fact Sheet for Patients: https://www.fda.gov/media/872971/download us Kasie Mosley MD MICROBIOLOGY - GENERAL ORDERA BLES Final Result [facility] [address] [place] [address], * (ABNORMAL) CBC auto differential (10/23/2024 9:03 AM EDT) WBC 13.4(H) 4 - 11 x10E9/L 10/23/2024 9:25 AM EDT [facility] RBC Count 4.38 3.8 - 5.2 X10E12/L 10/23/2024 9:25 AM EDT [facility] Hemoglobin 12.4 11.7 - 15.5 g/dL 10/23/2024 9:25 AM EDT [facility] Hematocrit 37.5 35 - 47 % 10/23/2024 9:25 AM EDT [facility] MCV 86 80 - 100 fL 10/23/2024 9:25 AM EDT [facility] MCH 28.4 27 - 34 pg 10/23/2024 9:25 AM EDT [facility] MCHC 33.2 32 - 36 g/dL 10/23/2024 9:25 AM EDT [facility] RDW 15.0 11.5 - 15 % 10/23/2024 9:25 AM EDT [facility] Platelet Count 275 150 - 450 X10E9/L 10/23/2024 9:25 AM EDT [facility] MPV 9.2 7 - 12 fL 10/23/2024 9:25 AM EDT [facility] Neutrophils % 89.7 % 10/23/2024 9:25 AM EDT [facility] Lymphocytes % 5.8 % 10/23/2024 9:25 AM EDT [facility] Monocytes % 4.1 % 10/23/2024 9:25 AM EDT [facility] Eosinophils % 0.2 % 10/23/2024 9:25 AM EDT [facility] Basophils % 0.2 % 10/23/2024 9:25 AM EDT [facility] Neutrophils Absolute (A) 12.1(H) 1.5 - 6.6 10*3/uL 10/23/2024 9:25 AM EDT [facility] Lymphocytes Absolute 0.8(L) 1.0 - 3.5 10*3/uL 10/23/2024 9:25 AM EDT [facility] Monocytes Absolute 0.6 0.0 - 0.9 10*3/uL 10/23/2024 9:25 AM EDT [facility] Eosinophils Absolute 0.0 0.0 - 0.4 10*3/uL 10/23/2024 9:25 AM EDT [facility] Basophils Absolute 0.0 0.0 - 0.2 10*3/uL 10/23/2024 9:25 AM EDT [facility] Differential Type AUTOMATED DIFFERENTIAL 10/23/2024 9:25 AM EDT [facility] Blood Venous blood / Unknown Venipuncture / Unknown 10/23/2024 9:03 AM EDT 10/23/2024 9:10 AM EDT us Kasie Mosley MD LAB BLOOD ORDERABLES Final Re sult [address] [place] [address], [place] * Magnesium (10/23/2024 9:03 AM EDT) MAGNESIUM 1.8 1.8 - 2.6 mg/dL 10/23/2024 9:30 AM EDT [facility] Blood Venous blood / Unknown Venipuncture / Unknown 10/23/2024 9:03 AM EDT 10/23/2024 9:10 AM EDT Kasie Mosley MD LAB BLOOD ORDERABLES Final Re sult Performing Organization Address [facility] Co de Phone Number [address] [place] [address], [place] * Lipase (10/23/2024 9:03 AM EDT) LIPASE 28 17 - 40 U/L 10/23/2024 9:27 AM EDT [facility] Blood Venous blood / Unknown Venipuncture / Unknown 10/23/2024 9:03 AM EDT 10/23/2024 9:10 AM EDT Kasie Mosley MD LAB BLOOD ORDERABLES Final Re sult Performing Organization Address City/[facility]/ZIP Co de Phone Number [address] [place] [address], [place] * (ABNORMAL) Comprehensive metabolic panel (10/23/2024 9:03 AM EDT) SODIUM 138 134 - 146 mmol/L 10/23/2024 9:30 AM EDT [facility] POTASSIUM 3.7 3.5 - 5.0 mmol/L 10/23/2024 9:30 AM EDT [facility] CHLORIDE 106 98 - 109 mmol/L 10/23/2024 9:30 AM EDT [facility] CARBON DIOXIDE 23 22 - 32 mmol/L 10/23/2024 9:30 AM EDT [facility] ANION GAP 9 5 - 15 mmol/L 10/23/2024 9:30 AM EDT [facility] BLOOD UREA NITROGEN 18 5 - 27 mg/dL 10/23/2024 9:30 AM EDT [facility] CREATININE 0.62 0.40 - 1.00 mg/dL 10/23/2024 9:30 AM EDT [facility] Comment:METHOD TRACEABLE TO IDUT STANDARD GLUCOSE 142(H) 65 - 99 mg/dL 10/23/2024 9:30 AM EDT [facility] CALCIUM 8.6 8.5 - 10.5 mg/dL 10/23/2024 9:30 AM EDT [facility] TOTAL PROTEIN 7.4 6.0 - 8.0 g/dL 10/23/2024 9:30 AM EDT [facility] ALBUMIN 4.4 3.2 - 5.3 g/dL 10/23/2024 9:30 AM EDT [facility] ALKALINE PHOSPHATASE 59 39 - 130 U/L 10/23/2024 9:30 AM EDT [facility] AST 18 <=41 U/L 10/23/2024 9:30 AM EDT [facility] ALT 16 <=31 U/L 10/23/2024 9:30 AM EDT [facility] BILIRUBIN,TOTAL 0.6 0.3 - 1.2 mg/dL 10/23/2024 9:30 AM EDT [facility] EGFR Non-Race Dependent >90 >=60 ml/min/1.7 3sq.m 10/23/2024 9:30 AM EDT [facility] Comment: eGFR not reported due to non-numeric value for Creatinine. Reported eGFR is based on the CKD-EPI 2020 equation that does not use a race coefficient. Blood Venous blood / Unknown Venipuncture / Unknown 10/23/2024 9:03 AM EDT 10/23/2024 9:10 AM EDT us Kasie Mosley MD LAB BLOOD ORDERABLES Final Re sult [facility] [address] [place] [address], [place] * Light Blue Top (10/23/2024 9:02 AM EDT) Extra Tube Auto Resulted 10/23/2024 11:01 AM EDT [facility] Blood Venous blood / Unknown 10/23/2024 9:02 AM EDT 10/23/2024 9:12 AM EDT Kasie Mosley MD LAB BLOOD ORDERABLES Final Re sult Performing Organization Address City/[facility]/ZIP Co de Phone Number [facility] [address] [place] [address], [place] from Last 3 Months Insurance MEDICARE [facility] Care Teams Heel Lining Paster Relationship Specialty Start Date End Date Rusty Newman DO [address] [place] [address] PCP - General 11/09/13
--- OUTSIDE RECORDS SUMMARY | 2024-12-07 09:44 | XMS_ITS | Encounter Summary ---
Author Organization [facility] tem Address [facility] [id number] [address] [place] [address] Care Team Providers Care Manager Community Name Role Phone Rusty Newman DO Primary Care Provider [phone] Encounter Details Date Type Department Care Team (Late st Contact Info) Description 10/26/2024 Results Follow-Up [facility] - Emergency [address] [place] [id number] Libia Flores, RN GI Panel(stool pathogen panel) Social History Tobacco Use Types Packs/Day Years Used Date Smoking Tobacco: Never Smokeless Tobacco: Never Alcohol Use Standard Drinks/Week Comments No 0 (1 standard drink = 0.6 oz pur e alcohol) [facility] Utilities Answer Date Recorded In the [...] often do you attend chur ch or amish services? More than 4 times per year 11/27/2022 Do you belong to any clubs o r organizations such as mosque groups, unions, fraternal or athletic groups, or [...] Answer Date Recorded Total Score 0 08/18/2024 [facility] Occupat ional [facility] - Occupational Stress Questionnaire Answer Date Recorded [...] Recorded Do you need help finding a [facility] career [facility] and/or a training program? No 11/27/2022 Hunger Screening Answer Date Recorded Within the past 12 months we worried whether our food would run out before we got money to buy more. Never True 10/23/2024 Within the past 12 months th e food we bought just didn't last and we didn't have money to get more. Never True 10/23/2024 Purpose - Life Answer Date Recorded I [...] Internal Medicine - Family Medicine [address] [place] [address] documented as of this encounter Visit Diagnoses Not on filedocumented in this encounter Additional Health Concerns Infection Onset Date Last Indicated Resolved Time Norovirus 10/23/2024 10/23/2024 10/27/2024 8:08 PM EDT Assessment Noted Time PHQ-9 Depression Total Score: 0 08/19/19 25 3:10 PM EDT documented as of this encounter Care Teams Manager Community Relationship Specialty Start Date End Date Rusty Newman DO [address] [facility] [place] [address] PCP - General 11/09/13 documented as of this encounter
--- OUTSIDE RECORDS SUMMARY | 2024-12-07 09:44 | XMS_ITS | Encounter Summary ---
Author Organization [employer] [address] [facility] tem Address [facility] [id number] [address] [place] [address] Care Team Providers Care Sericulture Teacher Name Role Phone Rusty Newman DO Primary Care Provider Encounter Details Date Type Department Care Team ([facility] Contact Info) Description 05/25/2022 Orders Only [facility] Internal Medicine - Family Medicine [address] [place] [address] Salena Gandhi CMA Rotator cuff arthropathy, left Social History Tobacco Use Types Packs/Day Years [...] Upcoming Encounters Date Type Department Care Team ([facility] Contact Info) Description 03/02/2025 2:20 PM EST [facility] - [facility] [address] [place] [address] documented as of this encounter Procedures Procedure Name Priority Date/Time Associated Diagnosis Comments MR SHOULDER LT WO CONT Routine 05/25/2022 8:15 AM EST Rotator cuff arthropathy, left documented in this encounter Results * MR shoulder left without contrast (05/25/2022 8:15 AM EST) Anatomical Region Laterality Modality MSK, Shoulder, Upper Extremities, MSK [place] t Magnetic Resonance Rusty Newman DO IMG MRI ORDERABLES Final Result documented in this encounter Visit Diagnoses Diagnosis Rotator cuff arthropathy, left documented in this encounter Additional Health Concerns [...] documented as of this encounter Care Teams Sericulture Teacher Relationship Specialty Start Date End Date Rusty Newman DO [address] [place] [address] PCP - General 11/09/13 documented as of this encounter
--- OUTSIDE RECORDS SUMMARY | 2024-12-07 09:44 | XMS_ITS | Encounter Summary ---
Author Organization [facility] [email or web address] [facility] tem Address [id number] [address] [place] [address] Care Team Providers Care Director Utilization Management Name Role Phone Rusty Newman DO Primary Care Provider Encounter Details Date Type Department Care Team (Late st Contact Info) Description 11/10/2024 Orders Only [facility] Internal Medicine - Family Medicine [address] [place] [address] Rusty Newman DO [address] [place] [address] Degenerative lumbar spinal stenosis (Primary Dx) Social History Tobacco Use Types Packs/Day Years Used Date Smoking Tobacco: Never Smokeless Tobacco: Never Alcohol Use Standard Drinks/Week Comments No 0 (1 standard drink = 0.6 oz pur e alcohol) [facility] Utilities Answer Date Recorded In the past 12 months has [employer], gas, oil, or water company threatened to [...] 11/27/2022 How often do you attend chur or oriental orthodox services? More than 4 times per year 11/27/2022 Do you belong to any clubs o r organizations such as jewish groups, unions, fraternal or athletic groups, or [...] Answer Date Recorded Total Score 0 11/02/2024 [facility] - Occupational Stress Questionnaire Answer Date Recorded [...] Recorded Do you need help finding a [facility] career center and/or a training program? [...] Internal Medicine - Family Medicine [address] [place] [address] documented as of this encounter Visit Diagnoses Diagnosis Degenerative lumbar spinal stenosis- Primary Spinal stenosis of lumbar region documented in this encounter Additional Health Concerns Assessment Noted Time PHQ-9 Depression Total Score: 0 11/03/19 25 4:14 PM EDT documented as of this encounter Care Teams Director Utilization Management Relationship Specialty Start Date End Date Rusty Newman DO [address] [place] [address] PCP - General 11/09/13 documented as of this encounter
--- OUTSIDE RECORDS SUMMARY | 2024-12-07 09:44 | XMS_ITS | Encounter Summary ---
Author Organization [facility] tem Address [id number] [address] [place] [address] Care Team Providers Care Mosaic Technician Name Role Phone Rusty Newman Primary Care Provider [phone] Encounter Details Date Type Department Care Team (Late st Contact Info) Description 02/04/2024 Telephone [facility] Internal Medicine - Family Medicine [address] [place] [phone] Salena Gandhi CMA Social History Tobacco Use [...] often do you attend chur ch or synagogue services? More than 4 times per year 11/27/2022 Do you belong to any clubs o r organizations such as scientologist groups, unions, fraternal or athletic groups, or [...] Answer Date Recorded Total Score 0 01/20/2024 [facility] of Occupat ional Health - Occupational Stress [...] Recorded Do you need help finding a [facility] and/or a training program? [...] Telephone Encounter - Salena Gandhi CMA - 02/04/2024 8:39 AM EDT There are no orders in for her lab work. * Telephone Encounter - Rusty Newman DO - 02/04/2024 8:39 AM EDT Message noted. What lab work? * Telephone Encounter - Fatoumata Chacko CMA - 02/04/2024 8:39 AM EDT Pt needs Creatinine and calcium labs drawn prior to the reclast. * Telephone Encounter - Salena Gandhi CMA - 02/04/2024 8:39 AM EDT I called [facility] and they are going to check with their administrative assistant office manager to see what needs to be done. It has not been released. * Telephone Encounter - Rusty Newman DO - 02/04/2024 8:39 AM EDT Message noted. documented in this encounter Plan of Treatment Upcoming Encounters Date Type Department Care Team (Late st Contact Info) Description 03/02/2025 2:20 PM EST Office Visit [facility] - Family Medicine [address] [facility] [place] [place] [address] documented as of this encounter Visit Diagnoses [...] documented as of this encounter Care Teams Mosaic Technician Relationship Specialty Start Date End Date Rusty Newman DO [address] [place] [address] PCP - General 11/09/13 documented as of this encounter
--- OUTSIDE RECORDS SUMMARY | 2024-12-07 09:44 | XMS_ITS | Encounter Summary ---
Author Organization [facility] [employer] [facility] tem Address [facility] [id number] [address] [place] [address] Care Team Providers Care Guide Domestic Tour Name Role Phone Rusty Newman DO Primary Care Provider [phone] Encounter Details Date Type Department Care Team (Late st Contact Info) Description 05/20/2024 Orders Only [facility] Internal Medicine - Family Medicine [address] [place] [address] Rusty Newman DO [address] [place] [address] Cobalamin deficiency (Primary Dx) Social History Tobacco Use Types Packs/Day Years Used Date Smoking Tobacco: Never Smokeless Tobacco: Never Alcohol Use Standard Drinks/Week Comments No 0 (1 standard drink = 0.6 oz pur e alcohol) [facility] Utilities Answer Date Recorded In the past 12 months has [employer], gas, oil, or water [employer] threatened to shut off services in your [...] How often do you attend chur or lutheran services? More than 4 times per year 11/27/2022 Do you belong to any clubs o r organizations such as orthodoxy groups, unions, fraternal or athletic groups, or [...] Answer Date Recorded Total Score 0 05/19/2024 [facility] of Occupat ional Health - Occupational [...] Recorded Do you need help finding a [facility] career center and/or a training program? [...] - Family Medicine [address] [place] [address] documented as of this encounter Visit Diagnoses Diagnosis Cobalamin deficiency- Primary Other B-complex deficiencies documented in this encounter Additional Health Concerns [...] documented as of this encounter Care Teams Guide Domestic Tour Relationship Specialty Start Date End Date Rusty Newman DO [address] [place] [address] PCP - General 11/09/13 documented as of this encounter
--- OUTSIDE RECORDS SUMMARY | 2024-12-07 09:44 | XMS_ITS | Encounter Summary ---
Author Organization [employer] [facility] tem Address [id number] [address] [place] [address] Care Team Providers Care Documentation Clerk Name Role Phone Rusty Newman DO Primary Care Provider [phone] Encounter Details Date Type Department Care Team (Late st Contact Info) Description 02/03/2024 Telephone [facility] Internal Medicine - Family Medicine [address] [place] [address] Fatoumata Chacko CMA Social History Tobacco Use Types Packs/Day [...] often do you attend chur ch or scientology services? More than 4 times per year 11/27/2022 Do you belong to any clubs o r organizations such as anabaptism groups, unions, fraternal or athletic groups, or [...] Answer Date Recorded Total Score 0 01/20/2024 [facility] of Occupat ional Health - Occupational [...] Recorded Do you need help finding a [facility] career center and/or a training program? No [...] encounter Miscellaneous Notes * Telephone Encounter - Fatoumata Chacko CMA - 02/03/2024 12:41 PM EDT Spoke to Marianna at the cancer center and they are waiting for the plan to be authorized from compliance. As soon as that's done they will call pt and set up her infusion. Pt needs lab work prior to the re clast and would like those orders put in please. * Telephone Encounter - Rusty Newman DO - 02/03/2024 12:41 PM EDT Message noted. documented in this encounter Plan of Treatment Upcoming Encounters Date Type Department Care Team (Late st Contact Info) Description 03/02/2025 2:20 PM EST Office Visit [facility] Internal Medicine - Family Medicine [address] [place] [address] documented as of this encounter Visit Diagnoses [...] documented as of this encounter Care Teams Documentation Clerk Relationship Specialty Start Date End Date Rusty Newman DO [address] [place] [address] PCP - General 11/09/13 documented as of this encounter
--- OUTSIDE RECORDS SUMMARY | 2024-12-07 09:44 | XMS_ITS | Encounter Summary ---
Author Organization [facility] tem Address [facility] [id number] [address] [place] [address] Care Team Providers Care Sap Business Analyst Name Role Phone Rusty Newman DO Primary Care Provider [phone] Encounter Details Date Type Department Care Team (Late Contact Info) Description 04/25/2022 Orders Only [facility] Internal Medicine - Family Medicine [address] [place] [address] Rusty Newman DO [address] [place] [address] Cobalamin deficiency Social History Tobacco Use Types Packs/Day Years [...] Encounters Date Type Department Care Team (Late Contact Info) Description 03/02/2025 2:20 PM EST Office Visit [facility] Internal Medicine - Family Medicine [address] [place] [address] documented as of this encounter Visit Diagnoses Diagnosis Cobalamin deficiency Other B-complex deficiencies documented in this encounter [...] documented as of this encounter Care Teams Sap Business Analyst Relationship Specialty Start Date End Date Rusty Newman DO [address] [place] [address] PCP - General 11/09/13 documented as of this encounter
--- OUTSIDE RECORDS SUMMARY | 2024-12-07 09:44 | XMS_ITS | Encounter Summary ---
Author Organization [facility] tem Address [id number] [address] [place] [address] Care Team Providers Care Contract Project Manager Name Role Phone Rusty Newman DO Primary Care Provider [phone] Encounter Details Date Type Department Care Team ([facility] Contact Info) Description 05/28/2022 Orders Only [facility] Internal Medicine - Family Medicine [address] [place] [address] Rusty Newman DO [address] [place] [address] Nontraumatic complete tear of right rotator cuff (Primary Dx); Post-viral cough syndrome Social History Tobacco Use Types Packs/Day Years [...] Upcoming Encounters Date Type Department Care Team ([facility] st Contact Info) Description 03/02/2025 2:20 PM EST Office Visit [facility] Internal Medicine - Family Medicine [address] [place] [address] documented as of this encounter Visit Diagnoses Diagnosis Nontraumatic complete tear of right rotator cuff- Primary Post-viral cough syndrome documented in this encounter Additional Health Concerns [...] documented as of this encounter Care Teams Contract Project Manager Relationship Specialty Start Date End Date Rusty Newman DO [address] [place] [address] PCP - General 11/09/13 documented as of this encounter
--- OUTSIDE RECORDS SUMMARY | 2024-12-07 09:44 | XMS_ITS | Encounter Summary ---
Author Organization [facility] tem Address [facility]-[id number] [address] [place] [address] Care Team Providers Care Echocardiography Radiology Technologist Name Role Phone Rusty Newman DO Primary Care Provider [phone] Encounter Details Date Type Department Care Team (Late st Contact Info) Description 11/06/2024 Results Follow-Up [facility] Internal Medicine - Family Medicine [address] [place] [address] Rusty Newman DO [address] [place] [address] X-ray spine lumbar 2 or 3 views Social History Tobacco Use Types Packs/Day Years Used Date Smoking Tobacco: Never Smokeless Tobacco: Never Alcohol Use Standard Drinks/Week Comments No 0 (1 standard drink = 0.6 oz pur e alcohol) [place] Utilities Answer Date Recorded In the past 12 months has [employer], gas, oil, or water [employer] threatened to shut off services in your [...] often do you attend chur ch or mormonism services? More than 4 times per year 11/27/2022 Do you belong to any clubs o r organizations such as shinto groups, unions, fraternal or athletic groups, or [...] Answer Date Recorded Total Score 0 11/02/2024 [facility] of Occupat [facility] - Occupational Stress Questionnaire Answer Date Recorded [...] Recorded Do you need help finding a [facility] career center and/or a training program? [...] Internal Medicine - Family Medicine [address] [place] [address] documented as of this encounter Visit Diagnoses Not on filedocumented in this encounter Additional Health Concerns Assessment Noted Time PHQ-9 Depression Total Score: 0 11/03/19 25 4:14 PM EDT documented as of this encounter Care Teams Echocardiography Radiology Technologist Relationship Specialty Start Date End Date Rusty Newman DO [address] [place] [address] PCP - General 11/09/13 documented as of this encounter
--- OUTSIDE RECORDS SUMMARY | 2024-12-07 09:44 | XMS_ITS | Encounter Summary ---
Author Organization [facility] tem Address [facility] [place][id number] [address] [place] [address] Care Team Providers Care Client Services Administrator Name Role Phone Rusty Newman DO Primary Care Provider [phone] Encounter Details Date Type Department Care Team ([facility] Contact Info) Description 04/23/2022 Orders Only [facility] Internal Medicine - Family Medicine [address] [place] [address] Rusty Newman DO [address] [place] [address] Cobalamin deficiency (Primary Dx) Social History Tobacco [...] Upcoming Encounters Date Type Department Care Team ([facility] Contact Info) Description 03/02/2025 2:20 PM EST Office Visit [facility] Internal Medicine - Family Medicine [address] [place] [address] documented as of this encounter Visit Diagnoses [...] documented as of this encounter Care Teams Client Services Administrator Relationship Specialty Start Date End Date Rusty Newman DO [address] [place] [address] PCP - General 11/09/13 documented as of this encounter
--- OUTSIDE RECORDS SUMMARY | 2024-12-07 09:44 | XMS_ITS | Encounter Summary ---
Author Organization [facility] tem Address [id number] [address] [place] [address] Care Team Providers Care Resident Care Associate Name Role Phone Rusty Newman DO Primary Care Provider [phone] Encounter Details Date Type Department Care Team (Late st Contact Info) Description 02/04/2024 Orders Only [facility] Internal Medicine - Family Medicine [address] [place] [address] Rusty Newman DO [address] [place] [address] Age-related osteoporosis without current pathological fracture (Primary Dx) Social History Tobacco Use Types [...] often do you attend chur ch or adventism services? More than 4 times per year 11/27/2022 Do you belong to any clubs o r organizations such as samaritan groups, unions, fraternal or athletic groups, or [...] Date Recorded Total Score 0 01/20/2024 [facility] of Occupat ional Health - [...] Recorded Do you need help finding a [facility] career center and/or a training program? No [...] - Family Medicine [address] [place] [address] documented as of this encounter Visit Diagnoses [...] documented as of this encounter Care Teams Resident Care Associate Relationship Specialty Start Date End Date Rusty Newman DO [address] [place] [address] PCP - General 11/09/13 documented as of this encounter
--- OUTSIDE RECORDS SUMMARY | 2024-12-07 09:45 | XMS_ITS | Encounter Summary ---
Author Organization [employer] [facility] tem Address [id number] [address] [place] [address] Care Team Providers Care Urology Physician Name Role Phone Rusty Newman DO Primary Care Provider [phone] Encounter Details Date Type Department Care Team ([facility] Contact Info) Description 10/01/2022 Orders Only [facility] Internal Medicine - Family Medicine [address] [place] [address] Rusty Newman DO [address] [place] [address] Encounter for screening mammogram for malignant neoplasm of breast (Primary Dx) Social History Tobacco Use Types [...] Upcoming Encounters Date Type Department Care Team ([facility] Contact Info) Description 03/02/2025 2:20 PM EST [facility] [address] [place] [address] documented as of this encounter Visit Diagnoses Diagnosis Encounter for screening mammogram for malignant neoplasm of breast- Primary documented in this encounter Additional Health [...] documented as of this encounter Care Teams Urology Physician Relationship Specialty Start Date End Date Rusty Newman DO [address] [place] [address] PCP - General 11/09/13 documented as of this encounter
--- OUTSIDE RECORDS SUMMARY | 2024-12-07 09:45 | XMS_ITS | Encounter Summary ---
Author Organization [facility] s tem Address [facility] [id number] [address] [place] [address] Care Team Providers Care Optical Laboratory Manager Name Role Phone Rusty Newman Primary Care Provider [phone] Encounter Details Date Type Department Care Team (Late st Contact Info) Description 07/12/2023 Orders Only [facility] Internal Medicine - Family Medicine [address] [place] [phone] Lavern Rodriguez, KNITTING MACHINE TENDER-BRUSH HOLDER ASSEMBLER [address] [place] [address] Trigger index finger of right hand Social History Tobacco Use Types Packs/Day Years [...] often do you attend chur ch or yarsanism services? More than 4 times per year 11/27/2022 Do you belong to any clubs o r organizations such as gnosticist groups, unions, fraternal or athletic groups, or [...] PHQ-2 Answer Date Recorded Total Score 0 07/01/2023 [facility] [place] of Occupat ional Health - Occupational Stress [...] got money to buy more. Never True 07/01/2023 Within the past 12 months th e food we bought just didn't last and we didn't have money to get more. Never True 07/01/2023 Purpose - Life Answer Date Recorded I [...] Internal Medicine - Family Medicine [address] [place] [address] documented as of this encounter Procedures Procedure Name Priority Date/Time Associated Diagnosis Comments AMB REFERRAL TO ORTHOPEDIC SURGERY Routine 07/11/2023 9:07 AM EDT Trigger index finger of right hand documented in this encounter Results * Ambulatory referral to Orthopedic Surgery ([facility]) (07/11/2023 9:07 AM EDT) Lavern Rodriguez KNITTING MACHINE TENDER-BRUSH HOLDER ASSEMBLER OUTPATIENT REFERRAL ORDERAB LES Final Result MANUALLY TRANSCRIBED RESULTS documented in this encounter Visit Diagnoses Diagnosis Trigger index finger of right hand documented in this encounter Additional Health Concerns Infection Onset Date Last Indicated Resolved Time Respiratory Rule-Out 10/23/2024 10/23/2024 025 10:09 AM EDT Enteric Rule-Out 10/23/2024 10/23/2024 10/23/2024 3:11 PM EDT Respiratory Rule-Out 10/23/2024 10/23/2024 025 11:44 AM EDT Norovirus 10/23/2024 10/23/2024 10/27/2024 8:08 PM EDT Assessment Noted Time PHQ-9 Depression Total Score: 0 07/01/19 24 3:38 PM EDT documented as of this encounter Care Teams Optical Laboratory Manager Relationship Specialty Start Date End Date Rusty Newman DO [address] [facility] [address] PCP - General 11/09/13 documented as of this encounter
--- OUTSIDE RECORDS SUMMARY | 2024-12-07 09:45 | XMS_ITS | Encounter Summary ---
Author Organization [facility] [employer] s tem Address [facility] [id number] [address] [place] [address] Care Team Providers Care Survey Questionnaire Designer Name Role Phone Rusty Newamn DO Primary Care Provider [phone] Encounter Details Date Type Department Care Team (Late st Contact Info) Description 09/12/2023 Orders Only [facility] Internal Medicine - Family Medicine [address] [place] [address] External, Scanning Provider Social History Tobacco Use Types Packs/Day Years [...] often do you attend chur ch or religion services? More than 4 times per year [...] PHQ-2 Answer Date Recorded Total Score 0 07/25/2023 [facility] of Occupat ional Health - Occupational [...] Recorded Do you need help finding a [facility] and/or a training program? No 11/27/2022 Hunger Screening Answer Date Recorded Within the past 12 months we worried whether our food would run out before we got money to buy more. Never True 07/25/2023 Within the past 12 months th e food we bought just didn't last and we didn't have money to get more. Never True 07/25/2023 Purpose - Life Answer Date Recorded I [...] Medicine - Family Medicine [address] [place] [address] documented as of this encounter Procedures Procedure Name Priority Date/Time Associated Diagnosis Comments XR KNEE RT MIN 4 VWS Routine 09/11/2023 2:26 PM EDT documented in this encounter Results * X-ray knee right minimum 4 views (09/11/2023 2:26 PM EDT) Anatomical Region Laterality Modality Lower Extremities, MSK, Knee Right Com puted Radiography us Scanning Provider External IMG DIAGNOSTIC IMAGIN G ORDERABLES Final Result documented in this encounter [...] Noted Time PHQ-9 Depression Total Score: 0 07/25/19 24 10:51 AM EDT documented as of this encounter Care Teams Survey Questionnaire Designer Relationship Specialty Start Date End Date Rusty Newman DO [address] [facility] [place] [address] PCP - General 11/09/13 documented as of this encounter
--- OUTSIDE RECORDS SUMMARY | 2024-12-07 09:45 | XMS_ITS | Clinical Summary ---
Author Organization [facility] Address [address] [place] [address] Care Team Providers Care Rasper Machine Operator Name Role Phone Unavailable Primary Care Provider Unavailabl e Social History Tobacco Use Types Packs/Day Years Used Date Smoking Tobacco: Never Assessed [place] Safety & Environment Answer Date Rec orded Fear of Current or Ex-Partner Not on file Emotionally Abused Not on file 06/06/2023 Physically Abused Not on file 06/06/2023 Sexually Abused Not on file 06/06/2023 Physically or Sexually Abused Not on file Comments Unknown Sex and Gender Information Value Date Recorded Sex Assigned at Not on file Legal Sex Female 12:44 AM EDT Gender Identity Not on file Sexual Orientation Not on file Last Filed Vital Signs Vital Sign Reading Time Taken Comments Blood Pressure 140/70 08/02/2021 2:06 PM EDT Pulse 73 08/02/2021 2:06 PM EDT Temperature 36.8 C (98.3 F) 08/02/2021 2:06 PM EDT Respiratory Rate - - Oxygen Saturation - - Inhaled Oxygen Concentration - - Weight 74.3 kg (163 lb 14.4 oz) 08/02/2021 2:06 PM EDT Height 147.3 cm (4' 10 ) 08/02/2021 2:06 PM EDT Body Mass Index 34.25 08/02/2021 2:06 PM EDT Plan of Treatment Health Maintenance Due Date Last Done Comments Medicare Annual Wellness (AWV) 1945 Depression Screening 1957 Adult Tetanus 12/20/1969 Pneumococcal Vaccine: 50+ Ye ars (1 of 1 - PCV) 12/20/1997 Zoster Vaccines (1 of 2) 12/20/1997 Fall Risk Screening 12/20/2012 COVID-19 Vaccine ( - 2023-2 5 season) 2023 Influenza Vaccine (#1) 2024 HIB Vaccines Aged Out No longer eligi ble based on patient's age to complete this topic HPV Vaccines Aged Out No longer eligi ble based on patient's age to complete this topic IPV Vaccines Aged Out No longer eligi ble based on patient's age to complete this topic Meningococcal B Vaccine Aged Out No l onger eligible based on patient's age to complete this topic Meningococcal Vaccine Aged Out No jose walker eligible based on patient's age to complete this topic Rotavirus Vaccines Aged Out No longer eligible based on patient's age to complete this topic Insurance MEDICARE Member Subscriber Plan / Payer (Ef fective 2011-Present) Name:Rach Abrams Member ID:[id number] Relation to Subscriber:Self Name:Rach Abrams Subscriber ID:[id number] Payer ID:[id number] Group ID:Not on file Type:Medicare Address: [id number]
--- OUTSIDE RECORDS SUMMARY | 2024-12-07 09:45 | XMS_ITS | Encounter Summary ---
Author Organization [facility] tem Address [facility] [id number] [address] [place] [address] Care Team Providers Care Executive Administrative Assistant Name Role Phone Rusty Newman DO Primary Care Provider [phone] Encounter Details Date Type Department Care Team (Late st Contact Info) Description 12/11/2023 Orders Only [facility] Internal Medicine - Family Medicine [address] [place] [address] Rusty Newman DO [address] [place] [address] Encounter for screening mammogram for malignant neoplasm of breast (Primary Dx); Age-related osteoporosis without current pathological fracture Social History Tobacco Use Types Packs/Day Years [...] often do you attend chur ch or gnosticism services? More than 4 times per year 11/27/2022 Do you belong to any clubs o r organizations such as latter-day groups, unions, fraternal or athletic groups, or [...] Answer Date Recorded Total Score 0 07/25/2023 [facility] of Occupat ional Health - Occupational Stress [...] Recorded Do you need help finding a [facility] career center and/or a training program? [...] Description 03/02/2025 2:20 PM EST Office Visit [facility] Internal Medicine - Family Medicine [address] [place] [address] documented as of this encounter Results * Mammography screening bilateral with CAD (12/26/2023 1:36 PM EDT) Anatomical Region Laterality Modality Breast Bilateral Mammography 12/26/2023 1:45 PM EDT Narrative 12/26/2023 1:46 PM EDT RACH Diaz QUAINTANCE 1945 [id number] EXAM: MAMM SCREENING BILATERAL W CAD, 12/26/2023 [...] 1:46 PM 1 c MAMM 1 YR FDA Accredited Performing Facility: [facility] [address] [facility] [address] Procedure Note Telma Sheikh MD - 12/26/2023 RACH Diaz QUAINTANCE 1945 [id number] EXAM: MAMM SCREENING BILATERAL W CAD, 12/26/2023 1:09 PM CLINICAL INDICATIONS: Screening, Encounter for screening mammogram formalignant neoplasm of breast COMPARISON: Multiple prior mammograms were viewed for comparison datingback to 04/09/2017 TECHNIQUE: Bilateral digital tomosynthesis MLO and CC views of the breasts wereobtained, with creation of synthetic 2D views. Computer aided detectionwas utilized. FINDINGS: The breasts are heterogeneously dense, which may obscure small masses. There are no suspicious masses, calcifications, or areas of architecturaldistortion. IMPRESSION: No mammographic evidence of malignancy. BI-RADS: BI-RADS 1 - Negative Recommendation: Routine screening mammogram in 1 year. Finalized by Telma Sheikh MD on 12/26/2023 1:46 PM 1 c MAMM 1 YR FDA Accredited Performing Facility: [facility] [address] [facility] [address] Rusty Newman DO [facility] MAMMO[facility]HY ORDERABLES Final Result documented in this encounter Visit Diagnoses Diagnosis Encounter for screening mammogram for malignant neoplasm of breast- Primary Age-related osteoporosis without current pathological fracture Encounter for screening mammogram for malignant neoplasm of breast documented in this encounter Additional Health Concerns [...] documented as of this encounter Care Teams Executive Administrative Assistant Relationship Specialty Start Date End Date Rusty Newman DO [address] [place] [address] PCP - General 11/09/13 documented as of this encounter
--- OUTSIDE RECORDS SUMMARY | 2024-12-07 09:45 | XMS_ITS | Encounter Summary ---
Author Organization [facility] Address [facility] [id number] [address] [place] [address] Care Team Providers Care Negative Turner Name Role Phone Rusty Newman DO Primary Care Provider [phone] Encounter Details Date Type Department Care Team (Late st Contact Info) Description 04/10/2023 Orders Only [facility] Internal Medicine - Family Medicine [address] [place] [address] Lavern Rodriguez, OPENER VERIFIER PACKER CUSTOMS-PET HANDLER [address] [place] [place] [address] Osteoarthritis of left shoulder, unspecified osteoarthritis type Social History Tobacco Use Types Packs/Day Years [...] often do you attend chur ch or worship services? More than 4 times per year 11/27/2022 Do you belong to any clubs o r organizations such as restoration groups, unions, fraternal or athletic groups, or [...] PHQ-2 Answer Date Recorded Total Score 0 03/19/2023 [facility] [place] of Occupat ional Health - Occupational Stress [...] got money to buy more. Never True 03/19/2023 Within the past 12 months th e food we bought just didn't last and we didn't have money to get more. Never True 03/19/2023 Purpose - Life Answer Date Recorded I [...] Internal Medicine - Family Medicine [address] [place] [address] documented as of this encounter Procedures Procedure Name Priority Date/Time Associated Diagnosis Comments AMB REFERRAL TO PAIN MANAGEMENT Routine 04/10/2023 12:13 PM EST Osteoarthritis of left shoulder, unspecified osteoarthritis type documented in this encounter Results * Ambulatory referral to Pain Management ([facility]) (04/10/2023 12:13 PM EST) Lavern Rodriguez OPENER VERIFIER PACKER CUSTOMS-PET HANDLER OUTPATIENT REFERRAL ORDERAB LES Final Result MANUALLY TRANSCRIBED RESULTS documented in this encounter Visit Diagnoses Diagnosis Osteoarthritis of left shoulder, unspecified osteoarthritis type documented in this encounter Additional Health Concerns Infection Onset Date Last Indicated Resolved Time Respiratory Rule-Out 10/23/2024 10/23/2024 025 10:09 AM EDT Enteric Rule-Out 10/23/2024 10/23/2024 10/23/2024 3:11 PM EDT Respiratory Rule-Out 10/23/2024 10/23/2024 025 11:44 AM EDT Norovirus 10/23/2024 10/23/2024 10/27/2024 8:08 PM EDT Assessment Noted Time PHQ-9 Depression Total Score: 0 03/19/20 23 9:23 AM EST documented as of this encounter Care Teams Negative Turner Relationship Specialty Start Date End Date Rusty Newman DO [address] [place] [address] PCP - General 11/09/13 documented as of this encounter
--- OUTSIDE RECORDS SUMMARY | 2024-12-07 09:45 | XMS_ITS | Encounter Summary ---
Author Organization [facility] tem Address [facility] [id number] [address] [place] [address] Care Team Providers Care Evp Of Products & Co Founder Name Role Phone Rusty Newman DO Primary Care Provider [phone] Encounter Details Date Type Department Care Team (Late st Contact Info) Description 01/30/2024 Orders Only [facility] Internal Medicine - Family Medicine [address] [place] [address] Rusty Newman DO [address] [place] [address] Age-related osteoporosis without current pathological fracture (Primary [...] often do you attend chur ch or restorationist services? More than 4 times per year [...] Date Recorded Total Score 0 01/20/2024 [facility] of Occupat ional Health - Occupational [...] Recorded Do you need help finding a [facility] career [facility] and/or a training [...] Internal Medicine - Family Medicine [address] [place] [address] documented as of this encounter Visit Diagnoses [...] documented as of this encounter Care Teams Ev[employer] Products [employer] Founder Relationship Specialty Start Date End Date Rusty Newman DO [address] [place] [address] PCP - General 11/09/13 documented as of this encounter
--- OUTSIDE RECORDS SUMMARY | 2024-12-07 09:45 | XMS_ITS | Encounter Summary ---
Author Organization [facility] Address [facility] [id number] [address] [place] [address] Care Team Providers Care Etcher Photoengraving Name Role Phone Rusty Newman DO Primary Care Provider [phone] Encounter Details Date Type Department Care Team (Late st Contact Info) Description 06/18/2023 Orders Only [facility] Internal Medicine - Family Medicine [address] [place] [address] Rusty Newman DO [address] [place] [address] Social History Tobacco Use Types Packs/Day Years [...] any clubs o r organizations such as cheondoism groups, unions, fraternal or athletic groups, or [...] PHQ-2 Answer Date Recorded Total Score 0 05/30/2023 [facility] [place] of Occupat ional Health - Occupational Stress [...] got money to buy more. Never True 05/30/2023 Within the past 12 months th e food we bought just didn't last and we didn't have money to get more. Never True 05/30/2023 Purpose - Life Answer Date Recorded I [...] Internal Medicine - Family Medicine [address] [place] [address] documented as of this encounter Visit Diagnoses Not on filedocumented in this encounter Additional Health Concerns Infection Onset Date Last Indicated Resolved Time Respiratory Rule-Out 10/23/2024 10/23/2024 025 10:09 AM EDT Enteric Rule-Out 10/23/2024 10/23/2024 10/23/2024 3:11 PM EDT Respiratory Rule-Out 10/23/2024 10/23/2024 025 11:44 AM EDT Norovirus 10/23/2024 10/23/2024 10/27/2024 8:08 PM EDT Assessment Noted Time PHQ-9 Depression Total Score: 0 05/30/19 24 10:42 AM EST documented as of this encounter Care Teams Etcher Photoengraving Relationship Specialty Start Date End Date Rusty Newman DO [address] [facility] [place] [address] PCP - General 11/09/13 documented as of this encounter
--- OUTSIDE RECORDS SUMMARY | 2024-12-07 09:45 | XMS_ITS | Encounter Summary ---
Author Organization [facility] tem Address [facility] [id number] [address] [place] [address] Care Team Providers Care Fisheries Specialist Name Role Phone Rusty Newman DO Primary Care Provider [phone] Reason for Referral * Consultation (Routine) - Closed Specialty Diagnoses / Procedures Referred By Contmonroe t Referred To Contact Orthopaedic Surgery / MED-SURG/ORTHOPEDICS Diagnoses Primary osteoarthritis of knees, bilateral Rusty Newman DO [address] [place] [address] Phone: tel: fax: Bala Mckeon Jr., DO [address] [place] [address] Phone: tel: fax: Referral ID Status Reason Start Date Expiration Date V isits Requested Visits Authorized [id number] Closed Specialty Services Required 08/22/2023 08/21/2024 1 1 Encounter Details Date Type Department Care Team (Late st Contact Info) Description 08/22/2023 Orders Only [facility] Internal Medicine - Family Medicine [address] [place] [address] Rusty Newman DO [address] [place] [address] Primary osteoarthritis of knees, bilateral (Primary Dx) Social History Tobacco Use Types [...] How often do you attend chur or rastafarian services? More than 4 times per year 11/27/2022 Do you belong to any clubs o r organizations such as tenriism groups, unions, fraternal or athletic groups, or [...] Answer Date Recorded Total Score 0 07/25/2023 [facility] of Occupat ional Health [...] Recorded Do you need help finding a [facility] career center and/or a training program? [...] Medicine - Family Medicine [address] [place] [address] Scheduled Referrals Name Type Priority Associated Diagnoses Orde r Schedule Ambulatory referral to Orthopedic Surgery ([facility]) Outpatient Referral Routine Primary osteoarthritis of knees, bilateral 1 Occurrences starting 08/22/2023 until 08/21/2024 documented as of this encounter Visit Diagnoses Diagnosis Primary osteoarthritis of knees, bilateral- Primary documented in this encounter Additional Health [...] documented as of this encounter Care Teams Fisheries Specialist Relationship Specialty Start Date End Date Rusty Newman DO [address] [place] [address] PCP - General 11/09/13 documented as of this encounter
--- OUTSIDE RECORDS SUMMARY | 2024-12-07 09:45 | XMS_ITS | Encounter Summary ---
Author Organization [facility] Address [facility] [id number] [address] [place] [address] Care Team Providers Care Materials Director Name Role Phone Rusty Newman DO Primary Care Provider [phone] Reason for Visit * Reason Comments Med Refill Encounter Details Date Type Department Care Team (Late st Contact Info) Description 05/20/2023 Refill [facility] Internal Medicine - Family Medicine [address] [place] [address] Rusty Newman DO [address] [place] [address] Hypothyroidism; Hyperlipidemia, unspecified Social History Tobacco Use Types Packs/Day Years [...] any clubs o r organizations such as mu-ism groups, unions, fraternal or athletic groups, or [...] Answer Date Recorded Total Score 0 03/19/2023 [facility] of Occupat ional Health - [...] Recorded Do you need help finding a [facility] career center and/or a training program? No [...] encounter Miscellaneous Notes * Telephone Encounter - Rusty Newman DO - 05/20/2023 5:02 PM EST Needs appointment documented in this encounter Plan of Treatment Upcoming Encounters Date Type Department Care Team (Late st Contact Info) Description 03/02/2025 2:20 PM EST Office Visit [facility] Internal Medicine - Family Medicine [address] [place] [address] documented as of this encounter Visit Diagnoses Diagnosis Hypothyroidism Unspecified hypothyroidism Hyperlipidemia, unspecified documented in this encounter Additional Health Concerns [...] documented as of this encounter Care Teams Materials Director Relationship Specialty Start Date End Date Rusty Newman DO [address] [place] [place] [address] PCP - General 11/09/13 documented as of this encounter
--- OUTSIDE RECORDS SUMMARY | 2024-12-07 09:45 | XMS_ITS | Encounter Summary ---
Author Organization [facility] Address [address] [place] [address] Care Team Providers Care Garage Door Installer Name Role Phone Rusty Newman MD Primary Care Provider [phone] Encounter Details Date Type Department Care Team (Late st Contact Info) Description 08/14/2024 Orders Only [facility] [address] [place] [address] Rosina Fleming, SALLIE [address] [place] [address] Social History Tobacco Use Types Packs/Day Years Used Date Smoking Tobacco: Never Smokeless Tobacco: Never Alcohol Use Standard Drinks/Week Comments Not Currently 0 (1 standard drink = 0.6 oz pur e alcohol) Comments Unknown Sex and Gender Information Value Date Recorded Sex Assigned at Not on file Legal Sex Female 7:32 PM EDT Gender Identity Not on file Sexual Orientation Not on file documented as of this encounter Plan of Treatment Upcoming Encounters Date Type Department Care Team (Late st Contact Info) Description 12/16/2024 10:30 AM EDT Office Visit [facility] [address] [place] [address] Jr. Bala Mckeon, DO [address] [facility] [address] [place] [address] documented as of this encounter Procedures Procedure Name Priority Date/Time Associated Diagnosis Comments MRI SHOULDER RT WOUT CONTRAST Routine 08/14/2024 2:20 PM EDT documented in this encounter Results * MRI SHOULDER RT WOUT CONTRAST (08/14/2024 2:20 PM EDT) Anatomical Region Laterality Modality Radiographic Ewelina ging Rosina Fleming MANAGER UROLOGY IMG XR PROCEDURES Final Result documented in this encounter Visit Diagnoses Not on filedocumented in this encounter Care Teams Garage Door Installer Relationship Specialty Start Date End Date Rusty Newman MD PCP - General Internal Medicine 09/10/23 documented as of this encounter
--- OUTSIDE RECORDS SUMMARY | 2024-12-07 09:45 | XMS_ITS | Encounter Summary ---
Author Organization [employer] [facility] tem Address [facility] [id number] [address] [place] [address] Care Team Providers Care Safety Pin Assembling Machine Operator Name Role Phone Rusty Newman Primary Care Provider Encounter Details Date Type Department Care Team (Late st Contact Info) Description 01/30/2024 Telephone [facility] Internal Medicine - Family Medicine [address] [place] [phone] Waldemar Montes CMA Social History Tobacco Use Types Packs/Day [...] any clubs o r organizations such as yarsani groups, unions, fraternal or athletic groups, or [...] Answer Date Recorded Total Score 0 01/20/2024 [facility] of Occupat ional Health - [...] Recorded Do you need help finding a [facility] and/or a training [...] encounter Miscellaneous Notes * Telephone Encounter - Waldemar Montes CMA - 01/30/2024 1:29 PM EDT Pt called today states she has not been able to book her infusion at the [facility] due to no order being there. I called the [facility] to verify this. Left message waiting for a call back. * Telephone Encounter - Rusty Newman DO - 01/30/2024 1:29 PM EDT Message noted. Any word yet? * Telephone Encounter - Waldemar Montes CMA - 01/30/2024 1:29 PM EDT No! Fatoumata use to work there so she is going take it over. * Telephone Encounter - Rusty Newman DO - 01/30/2024 1:29 PM EDT Message noted. Did you know this? And, if so, do we have any confirmation that the [facility] has received the orders for Rach? * Telephone Encounter - Fatoumata Chacko CMA - 01/30/2024 1:29 PM EDT I am waiting on a call back from them. I called them this morning and a left a message. I will update you as soon as I hear something. documented in this encounter Plan of Treatment Upcoming Encounters Date Type Department Care Team (Late st Contact Info) Description 03/02/2025 2:20 PM EST Office Visit [facility] - Family Medicine [address] [place] [address] documented as of this encounter Visit Diagnoses [...] documented as of this encounter Care Teams Safety Pin Assembling Machine Operator Relationship Specialty Start Date End Date Rusty Newman DO [address] [place] [address] PCP - General 11/09/13 documented as of this encounter
--- OUTSIDE RECORDS SUMMARY | 2024-12-07 09:45 | XMS_ITS | Encounter Summary ---
Author Organization [facility] [employer] [facility] tem Address [facility] [id number] [address] [place] [address] Care Team Providers Care Air Compressor Operator Name Role Phone Rusty Newman DO Primary Care Provider [phone] Encounter Details Date Type Department Care Team (Late st Contact Info) Description 12/25/2023 Orders Only [facility] Internal Medicine - Family Medicine [address] [place] [address] Rusty Newman DO [address] [place] [address] Social History Tobacco Use Types Packs/Day Years [...] any clubs o r organizations such as anabaptist groups, unions, fraternal or athletic groups, or [...] PHQ-2 Answer Date Recorded Total Score 0 12/24/2023 [facility] of Occupat ional Health - Occupational Stress [...] got money to buy more. Never True 12/24/2023 Within the past 12 months th e food we bought just didn't last and we didn't have money to get more. Never True 12/24/2023 Purpose - Life Answer Date Recorded I [...] Internal Medicine - Family Medicine [address] [place] [address] documented as of this encounter Visit Diagnoses Not on filedocumented in this encounter Additional Health Concerns Infection Onset Date Last Indicated Resolved Time Respiratory Rule-Out 10/23/2024 10/23/2024 025 10:09 AM EDT Enteric Rule-Out 10/23/2024 10/23/2024 10/23/2024 3:11 PM EDT Respiratory Rule-Out 10/23/2024 10/23/2024 025 11:44 AM EDT Norovirus 10/23/2024 10/23/2024 10/27/2024 8:08 PM EDT Assessment Noted Time PHQ-9 Depression Total Score: 0 12/24/19 24 12:42 PM EDT documented as of this encounter Care Teams Air Compressor Operator Relationship Specialty Start Date End Date Rusty Newman DO [address] [place] [address] PCP - General 11/09/13 documented as of this encounter
--- OUTSIDE RECORDS SUMMARY | 2024-12-07 09:45 | XMS_ITS | Encounter Summary ---
Author Organization [employer] [facility] tem Address [id number] [address] [place] [address] Care Team Providers Care Data Quality Consultant Name Role Phone Rusty Newman DO Primary Care Provider [phone] Encounter Details Date Type Department Care Team (Late st Contact Info) Description 11/26/2022 Telephone [facility] Internal Medicine - Family Medicine [address] [place] [phone] Dipika Sagastume CMA Social History Tobacco Use Types Packs/Day [...] often do you attend chur ch or druze services? More than 4 times per year 11/27/2022 Do you belong to any clubs o r organizations such as scientology groups, unions, fraternal or athletic groups, or [...] 11/27/2022 PHQ-2 Answer Date Recorded Total Score 2 11/27/2022 [facility] of Occupat ional Health - Occupational [...] Do you need help finding a l al career center and/or a training program? No 11/27/2022 Purpose - Life Answer Date Recorded I have a purpose and direction in my life. Agree 11/27/2022 Comments No Sex and Gender Information Value Date Recorded Sex Assigned at Not on file Legal Sex Female 11:29 AM EDT Gender Identity Not on file Sexual Orientation Not on file documented as of this encounter Functional Status * Audit-C Score Answer Date of Assessment Author 0 11/27/2022 9:30 AM EDT Raquel Stanley * Question Answer Date of Assessment Author Q1: How often do you have a drink containing alcohol? Never 11/27/2022 9:30 AM EDT Raquel Stanley Q2: How many drinks containing alcohol do you have on a typical day when you are drinking? Patient does not drink 11/27/2022 9:30 AM EDT Raquel Stanley Q3: How often do you have six or more drinks on one occasion? Never 11/27/2022 9:30 AM EDT Raquel Stanley documented as of this encounter Miscellaneous Notes * Telephone Encounter - Dipika Sagastume CMA - 11/26/2022 10:51 AM EDT Needs mammogram sent to [facility] documented in this encounter Plan of Treatment Upcoming Encounters Date Type Department Care Team (Late st Contact Info) Description 03/02/2025 2:20 PM EST Office Visit [facility] - Family Medicine [address] [place] [address] documented as of this encounter Visit Diagnoses [...] documented as of this encounter Care Teams Data Quality Consultant Relationship Specialty Start Date End Date Rusty Newman DO [address] [place] [address] PCP - General 11/09/13 documented as of this encounter
--- OUTSIDE RECORDS SUMMARY | 2024-12-07 09:45 | XMS_ITS | Encounter Summary ---
Author Organization [facility] tem Address [facility] [id number] [address] [place] [address] Care Team Providers Care Campground Attendant Name Role Phone Rusty Newman DO Primary Care Provider [phone] Reason for Visit * Reason Comments Med Refill Encounter Details Date Type Department Care Team (Late st Contact Info) Description 11/29/2022 Refill [facility] Internal Medicine - Family Medicine [address] [place] [address] Rusty Newman DO [address] [place] [address] Vitamin D deficiency, unspecified Social History Tobacco Use Types Packs/Day [...] often do you attend chur ch or buddhist services? More than 4 times per year [...] Answer Date Recorded Total Score 2 11/27/2022 [facility] of Occupat ional Health - Occupational [...] Internal Medicine - Family Medicine [address] [place] [address] documented as of this encounter Visit Diagnoses Diagnosis Vitamin D deficiency, unspecified documented in this encounter Additional Health Concerns Infection Onset Date Last Indicated Resolved Time Respiratory Rule-Out 10/23/2024 10/23/2024 025 10:09 AM EDT Enteric Rule-Out 10/23/2024 10/23/2024 10/23/2024 3:11 PM EDT Respiratory Rule-Out 10/23/2024 10/23/2024 025 11:44 AM EDT Norovirus 10/23/2024 10/23/2024 10/27/2024 8:08 PM EDT Assessment Noted Time PHQ-9 Depression Total Score: 2 11/28/19 23 9:09 AM EDT documented as of this encounter Care Teams Campground Attendant Relationship Specialty Start Date End Date Rusty Newman DO [address] [place] [address] PCP - General 11/09/13 documented as of this encounter
--- OUTSIDE RECORDS SUMMARY | 2024-12-07 09:45 | XMS_ITS | Clinical Summary ---
Author Organization [facility] Address [address] [place] [address] Care Team Providers Care Cattle Knocker Name Role Phone Rusty Newman MD Primary Care Provider [phone] Allergies Active Allergy Reactions Criticality Noted Date Comments Aspirin 09/10/2023 Other Reaction(s): Fever / Rash Codeine Rash,Unknown Low 05/27/2017 Etodolac 04/17/2022 Iodine Anaphylaxis High 05/27/2017 Other Reaction(s): SOB / Blisters Latex 04/17/2022 Penicillins Hives 05/27/2017 Sulfa Antibiotics Rash,Unknown Low 05/27/2017 Medications traMADol (Ultram) 50 MG tablet Take 50 mg by mouth 2 (two) times a day as needed Active tiZANidine (Zanaflex) 4 MG tablet TAKE 1/2-1 TABLET BY MOUTH TWICE A DAY NEEDED 05/27/2023 Active rosuvastatin (Crestor) 10 MG tablet Take 1 tablet by mouth Daily 05/31/2023 Active rOPINIRole (Requip) 0.25 MG tablet Take 0.25 mg by mouth at bedtime 05/27/2023 Active levothyroxine (Synthroid, Levoxyl) 50 MCG tablet Take 1 tablet by mouth Daily 05/31/2023 Active estradiol (Estrace) 0.1 MG/GM vaginal cream Use at night once or twice weekly 03/19/2023 Active ergocalciferol (Vitamin D2) 1.25 MG (45390 UT) capsule TAKE 1 CASPULE BY MOUTH ONCE TIME PER WEEK Active cholecalciferol (Vitamin D-3) 1.25 MG (36065 UT) capsule Take 1 capsule by mouth 1 (one) time per week 05/22/2023 Active acetaminophen (Tylenol 8 Hour) 650 MG ER tablet Take 650 mg by mouth in the morning. Active Active Problems No known active problems Encounters Date Type Department Care Team Description 10/21/2024 10:15 AM EDT [facility] [address] [place] [address] Jr. Bala Mckeon, Acute pain of right shoulder (Primary Dx); Rotator cuff arthropathy, right 10/21/2024 Bamboo flowsheet [facility] [address] [place] [address] Jr. Bala Mckeon, 10/21/2024 Travel 09/09/2024 9:30 AM EDT Office Visit [facility] [address] [place] [address] Jr. Bala Mckeon, Acute pain of right shoulder (Primary Dx); Nontraumatic complete tear of right rotator cuff 09/09/2024 9:20 AM EDT Ancillary [facility] [address] [place] [address] 09/09/2024 [facility]amboo [facility] [address] [place] [address] Jr. Bala Mckeon, DO 09/09/2024 Travel from Last 3 Months Social History Tobacco Use Types Packs/Day Years Used Date Smoking Tobacco: Never Smokeless Tobacco: Never Tobacco Cessation:Counseling Given: Not Answered Alcohol Use Standard Drinks/Week Comments Not Currently 0 (1 standard drink = 0.6 oz pur e alcohol) Comments Unknown Sex and Gender Information Value Date Recorded Sex Assigned at Not on file Legal Sex Female 7:32 PM EDT Gender Identity Not on file Sexual Orientation Not on file Last Filed Vital Signs Vital Sign Reading Time Taken Comments Blood Pressure 120/76 06/01/2019 12:00 PM EST Pulse - - Temperature - - Respiratory Rate - - Oxygen Saturation - - Inhaled Oxygen Concentration - - Weight 66.2 kg (146 lb) 09/10/2023 10:35 AM EDT Height 149.9 cm (4' 11 ) 09/10/2023 10:35 AM EDT Body Mass Index 29.49 09/10/2023 10:35 AM EDT Plan of Treatment Upcoming Encounters Date Type Department Care Team (Late st Contact Info) Description 12/16/2024 10:30 AM EDT Office Visit [facility] [facility] [address] [place] [address] Jr. Bala Mckeon, DO [address] [facility] [address] [place] [address] Health Maintenance Due Date Last Done Comments Influenza Vaccine (#1) 2024 , 01/22/2022, 04/24/2017, Additional history exists Pneumococcal Vaccine: 65+ Years Completed 01/15/2022, 03/15/2016, 01/05/2015, Additional history exists Mammogram Discontinued 12/26/2023, 12/14, 04/24/2021, Additional history exists Procedures Procedure Name Priority Date/Time Associated Diagnosis Comments GA ARTHROCENTESIS ASPIR&/INJ MAJOR JT/BURSA W/O US Routine 10/21/2024 10:48 AM EDT Acute pain of right shoulder GA ARTHROCENTESIS ASPIR&/INJ MAJOR JT/BURSA W/O US Routine 09/09/2024 10:26 AM EDT Acute pain of right shoulder XR SHOULDER 2+ VIEWS RIGHT Routine 09/09/2024 9:16 AM EDT Acute pain of right shoulder from Last 3 Months Results * GA ARTHROCENTESIS ASPIR&/INJ MAJOR JT/BURSA W/O US (10/21/2024 10:48 AM EDT) Narrative Jr. Bala Mckeon, - 10/21/2024 10:48 AM EDT Jr. Bala Mckeon DO 10/31/2024 4:18 PM L Inj/Asp: R subacromial bursa on 10/21/2024 10:48 AM Indications: pain Details: 21 G needle, posterior approach Medications: 40 mg methylPREDNISolone acetate 40 MG/ML Outcome: tolerated well, no immediate complications SKIN PREPPED WITH ISOPROPYL ALCOHOL Procedure, treatment alternatives, risks and benefits explained, specific risks discussed. Consent was given by the patient. Result Inge Mckeon DO IN CLINIC/BEDSIDE ORDER VIVIENNE Final Result * GA ARTHROCENTESIS ASPIR&/INJ MAJOR JT/BURSA W/O US (09/09/2024 10:26 AM EDT) Narrative Jr. Bala Mckeon DO - 09/09/2024 10:26 AM EDT Jr. Bala Mckeon DO 09/15/2024 7:30 AM L Inj/Asp: R subacromial bursa on 09/09/2024 10:26 AM Indications: pain Details: 21 G needle, posterior approach Medications: 40 mg methylPREDNISolone acetate 40 MG/ML Outcome: tolerated well, no immediate complications Procedure, treatment alternatives, risks and benefits explained, specific risks discussed. Consent was given by the patient. Result Inge Mckeon DO IN CLINIC/BEDSIDE ORDER VIVIENNE Final Result * XR shoulder 2+ views right (09/09/2024 9:16 AM EDT) Anatomical Region Laterality Modality Upper Extremities, Shoulder Right Radi ographic Imaging Narrative 09/09/2024 10:19 AM EDT Imaging Result: Imaging Result: scapular Y and AP x-rays of right shoulder showed humeral head to be well centered in the glenoid fossa. There was no evidence of subluxation or dislocation. Acromioclavicular joint appeared to have global degenerative changes with decreased joint space and marginal osteophytic formation. There was no acute bony process including but not limited to fracture and/or dislocation. 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 Result [facility] Jr. Bala Mckeon DO IMG XR PROCEDURES Final Result from Last 3 Months Insurance MEDICARE AET[employer] Care Teams Cattle Knocker Relationship Specialty Start Date End Date Rusty Newman MD PCP - General Internal Medicine 09/10/23
--- OUTSIDE RECORDS SUMMARY | 2024-12-07 09:45 | XMS_ITS | Encounter Summary ---
Author Organization [facility] [employer] [facility] tem Address [facility] [id number] [address] [place] [address] Care Team Providers Care Engineering Writer Name Role Phone Rusty Newman DO Primary Care Provider [phone] Encounter Details Date Type Department Care Team (Late st Contact Info) Description 01/01/2023 Orders Only [facility] Internal Medicine - Family Medicine [address] [place] [address] Rusty Newman DO [address] [place] [address] Social History Tobacco Use Types Packs/Day Years [...] often do you attend chur ch or islam services? More than 4 times per year 11/27/2022 Do you belong to any clubs o r organizations such as religious groups, unions, fraternal or athletic groups, or [...] PHQ-2 Answer Date Recorded Total Score 0 12/31/2022 [facility] of Occupat ional Health - Occupational Stress [...] - Family Medicine [address] [place] [address] documented as of this encounter Visit Diagnoses Not on filedocumented in this encounter Additional Health Concerns Infection Onset Date Last Indicated Resolved Time Respiratory Rule-Out 10/23/2024 10/23/2024 025 10:09 AM EDT Enteric Rule-Out 10/23/2024 10/23/2024 10/23/2024 3:11 PM EDT Respiratory Rule-Out 10/23/2024 10/23/2024 025 11:44 AM EDT Norovirus 10/23/2024 10/23/2024 10/27/2024 8:08 PM EDT Assessment Noted Time PHQ-9 Depression Total Score: 0 01/01/20 23 2:15 PM EDT documented as of this encounter Care Teams Engineering Writer Relationship Specialty Start Date End Date Rusty Newman DO [address] [facility] [place] [address] PCP - General 11/09/13 documented as of this encounter
--- OUTSIDE RECORDS SUMMARY | 2024-12-07 09:45 | XMS_ITS | Encounter Summary ---
Author Organization [employer] [facility] tem Address [facility] [id number] [address] [place] [address] Care Team Providers Care Supervisor Vendor Quality Name Role Phone Rusty Newman DO Primary Care Provider [phone] Encounter Details Date Type Department Care Team (Late st Contact Info) Description 06/18/2023 Telephone [facility] Internal Medicine - Family Medicine [address] [place] [address] Rusty Newman DO [address] [place] [address] Social History Tobacco Use Types Packs/Day Years [...] often do you attend chur ch or orthodoxy services? More than 4 times per year 11/27/2022 Do you belong to any clubs o r organizations such as zoroastrian groups, unions, fraternal or athletic groups, or [...] Answer Date Recorded Total Score 0 05/30/2023 [facility] of Occupat ional Health - Occupational Stress [...] encounter Miscellaneous Notes * Telephone Encounter - Natalia Gusman - 06/18/2023 12:30 PM EST Patient came in to the office and she needs a new parking placard. Also she was wonder if you wouldbe able to get her a referral for her leg * Telephone Encounter - Natalia Gusman - 06/18/2023 12:30 PM EST Also wants to know if there is something other than Tramadol she can take for pain? * Telephone Encounter - Rusty Newman DO - 06/18/2023 12:30 PM EST A letter for a new parking placard was written. I am not sure what exactly she is referring to about a ???referral for her leg?? . She has already been seeing pain management. Is this a new or separate problem? That leads to her next question, that is, is there something other than tramadol that can be used? It depends, because it depends on what problem we are treating. Perhaps she needs an appointment to review this. You can squeeze her in my schedule any time this week (except Saturday) * Telephone Encounter - Natalia Gsuman - 06/18/2023 12:30 PM EST She said she talked to you the last time she was here, its for leg pain it hurts when she's sittingor laying down its a newer problem * Telephone Encounter - Rusty Newman DO - 06/18/2023 12:30 PM EST We talked about her left shoulder, but not her leg. I will need to see her to evaluate the leg. documented in this encounter Plan of Treatment Upcoming Encounters Date Type Department Care Team (Late st Contact Info) Description 03/02/2025 2:20 PM EST Office Visit [facility] Internal Medicine - Family Medicine [address] [place] [address] documented as of this encounter Visit Diagnoses [...] documented as of this encounter Care Teams Supervisor Vendor Quality Relationship Specialty Start Date End Date Rusty Newman DO [address] [facility] [place] [address] PCP - General 11/09/13 documented as of this encounter
--- OUTSIDE RECORDS SUMMARY | 2024-12-07 09:45 | XMS_ITS | Encounter Summary ---
Author Organization [facility] tem Address [facility] [place]-[id number] [address] [place] [address] Care Team Providers Care Cabin Cleaning Supervisor Name Role Phone Rusty Newman DO Primary Care Provider [phone] Encounter Details Date Type Department Care Team (Late st Contact Info) Description 01/22/2024 Orders Only [facility] Internal Medicine - Family Medicine [address] [place] [address] Rusty Newman DO [address] [place] [address] Age-related osteoporosis without current pathological fracture (Primary [...] Recorded Do you need help finding a [facility] and/or a training program? [...] Internal Medicine - Family Medicine [address] [place] [address] documented as of this encounter Visit Diagnoses [...] documented as of this encounter Care Teams Cabin Cleaning Supervisor Relationship Specialty Start Date End Date Rusty Newman DO [address] [place] [address] PCP - General 11/09/13 documented as of this encounter
--- OUTSIDE RECORDS SUMMARY | 2024-12-07 09:45 | XMS_ITS | Encounter Summary ---
Author Organization [facility] tem Address [facility] [id number] [address] [place] [address] Care Team Providers Care Dog Breeder Name Role Phone Rusty Newman DO Primary Care Provider [phone] Encounter Details Date Type Department Care Team (Late st Contact Info) Description 11/26/2022 Orders Only [facility] Internal Medicine - Family Medicine [address] [place] [address] Rusty Newman DO [address] [place] [address] Encounter for screening mammogram for malignant neoplasm [...] often do you attend chur ch or roman catholic services? More than 4 times per year 11/27/2022 Do you belong to any clubs o r organizations such as yazidism groups, unions, fraternal or athletic groups, or [...] Answer Date Recorded Total Score 2 11/27/2022 [facility] of Occupat ional Health - Occupational Stress [...] Raquel Stanley documented as of this encounter Plan of Treatment Upcoming Encounters Date Type Department Care Team (Late st Contact Info) Description 03/02/2025 2:20 PM EST Office Visit [facility] Medicine - Family Medicine [address] [place] [address] Scheduled Orders Name Type Priority Associated Diagnoses Orde r Schedule Mammography screening bilateral with CAD Imaging Routine Encounter for screening mammogram for malignant neoplasm of breast Expected: 11/26/2022, Expires: 11/27/2023 documented as of this encounter Visit Diagnoses [...] documented as of this encounter Care Teams Dog Breeder Relationship Specialty Start Date End Date Rusty Newman DO [address] [place] [address] PCP - General 11/09/13 documented as of this encounter
--- OUTSIDE RECORDS SUMMARY | 2024-12-07 09:45 | XMS_ITS | Encounter Summary ---
Author Organization [facility] [employer] [employer] [facility] tem Address [facility] [id number] [address] [place] [address] Care Team Providers Care Glass Laminating Operator Name Role Phone Rusty Newman DO Primary Care Provider [phone] Encounter Details Date Type Department Care Team (Late st Contact Info) Description 10/01/2022 Telephone [facility] Internal Medicine - Family Medicine [address] [place] [address] Rusty Newman DO [address] [place] [address] Social History Tobacco Use Types Packs/Day Years [...] encounter Miscellaneous Notes * Telephone Encounter - Tresa Steel - 10/01/2022 3:27 PM EDT Pt called to get a mammogram order faxed to [facility]. Thanks documented in this encounter Plan of Treatment Upcoming Encounters Date Type Department Care Team (Late st Contact Info) Description 03/02/2025 2:20 PM EST Office Visit [facility] Internal Medicine - Family Medicine [address] [place] [address] documented as of this encounter Visit Diagnoses [...] documented as of this encounter Care Teams Glass Laminating Operator Relationship Specialty Start Date End Date Rusty Newman DO [address] [facility] [place] [address] PCP - General 11/09/13 documented as of this encounter
--- OUTSIDE RECORDS SUMMARY | 2024-12-07 09:45 | XMS_ITS | Encounter Summary ---
Author Organization [facility] [facility] tem Address [id number] [address] [place] [address] Care Team Providers Care Resident Manager Name Role Phone Rusty Newman DO Primary Care Provider Encounter Details Date Type Department Care Team (Late st Contact Info) Description 05/31/2023 Orders Only [facility] Internal Medicine - Family Medicine [address] [place] [address] Rusty Newman DO [address] [place] [address] Hypothyroidism; Hyperlipidemia, unspecified Social History Tobacco Use [...] often do you attend chur ch or adventist services? More than 4 times per year [...] Recorded Total Score 0 05/30/2023 [facility] of Occupat ional Health - Occupational Stress [...] Internal Medicine - Family Medicine [address] [place] [address] documented as of this encounter Visit Diagnoses [...] as of this encounter Care Teams Resident Manager Relationship Specialty Start Date End Date Rusty Newman DO [address] [place] [address] PCP - General 11/09/13 documented as of this encounter
--- OUTSIDE RECORDS SUMMARY | 2024-12-07 09:45 | XMS_ITS | Encounter Summary ---
Author Organization [facility] tem Address [id number] [address] [place] [address] Care Team Providers Care Hospital Fellow Name Role Phone Rusty Newman DO Primary Care Provider [phone] Encounter Details Date Type Department Care Team (Late st Contact Info) Description 12/13/2022 Orders Only [facility] Internal Medicine - Family Medicine [address] [place] [address] Rusty Newman DO [address] [place] [address] Postmenopausal bone loss (Primary Dx) Social History Tobacco Use Types [...] often do you attend chur ch or zoroastrian services? More than 4 times per year 11/27/2022 Do you belong to any clubs o r organizations such as methodist groups, unions, fraternal or athletic groups, or [...] Answer Date Recorded Total Score 2 11/27/2022 [facility] of Occupat ional Health - Occupational Stress [...] Medicine - Family Medicine [address] [place] [address] documented as of this encounter Results * Dexa scan central skeletal (12/24/2022 12:05 PM EDT) Anatomical Region Laterality Modality Spine, Hip N/A DXA Scan 12/25/2022 6:12 PM EDT Narrative 12/25/2022 6:14 PM EDT DEXA SCAN CENTRAL SKELETAL: 12/24/2022 11:45 AM CLINICAL: Post menopausal. Exam/Technique: DEXA Scan (Dual Energy X-ray Absorptiometry) Findings: PA Lumbar Spine: BMD: 1.004 g/cm2. T-score: -1.5 Left Femoral neck: BMD 0.685 g/cm2. T-score: -2.5 Right Femoral neck: BMD 0.785 g/cm2. T-score: -1.8 Fracture Risk: According to FRAX, 10 year probability of any major osteoporosis-related fracture is 39.8%, 10 year probability of hip fracture is 28.1 % IMPRESSION: * Osteoporosis, improvement in mineralization lumbar spine and nearly stable in femoral necks compared with 06/10/2007. PLEASE NOTE * T-score compares patient BMD to a reference of young normal controls. World Health Organization Classification: Osteoporosis: T-score=-2.5 or below. Osteopenia (low bone mass): T-score between -1.0 and -2.5. Normal: T-score -1.0 or above. Secondary causes of bone loss should be evaluated if clinically indicated since the etiology of low BMD cannot be determined by BMD measurement alone. Finalized by Alli Prajapati MD on 12/25/2022 6:14 PM Procedure Note Alli Prajapati MD - 12/25/2022 DEXA SCAN CENTRAL SKELETAL: 12/24/2022 11:45 AM CLINICAL: Post menopausal. Exam/Technique: DEXA Scan (Dual Energy X-ray Absorptiometry) Findings: PA Lumbar Spine: BMD: 1.004 g/cm2. T-score: -1.5 Left Femoral neck: BMD 0.685 g/cm2. T-score: -2.5 Right Femoral neck: BMD 0.785 g/cm2. T-score: -1.8 Fracture Risk: According to FRAX, 10 year probability of any major osteoporosis-relatedfracture is 39.8%, 10 year probability of hip fracture is 28.1 % IMPRESSION: * Osteoporosis, improvement in mineralization lumbar spine and nearlystable in femoral necks compared with 06/10/2007. PLEASE NOTE * T-score compares patient BMD to a reference of young normal controls. World Health Organization Classification: Osteoporosis: T-score=-2.5 or below. Osteopenia (low bone mass): T-score between -1.0 and -2.5. Normal: T-score -1.0 or above. Secondary causes of bone loss should be evaluated if clinically indicatedsince the etiology of low BMD cannot be determined by BMD measurementalone. 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
--- OUTSIDE RECORDS SUMMARY | 2024-12-07 09:45 | XMS_ITS | Encounter Summary ---
Author Organization [employer] [facility] tem Address [id number] [address] [place] [address] Care Team Providers Care Case Briefer Name Role Phone Rusty Newman Primary Care Provider [phone] Encounter Details Date Type Department Care Team (Late st Contact Info) Description 01/20/2024 Telephone [facility] Internal Medicine - Family Medicine [address] [place] [id number] Salena Gandhi CMA Social History Tobacco Use [...] often do you attend chur ch or methodist services? More than 4 times per year [...] Answer Date Recorded Total Score 0 01/20/2024 [facility] of Occupat ional Health - Occupational [...] Recorded Do you need help finding a [facility] and/or a training [...] Telephone Encounter - Salena Gandhi CMA - 01/20/2024 12:39 PM EDT Patient forgot to mentioned to you that since you took her off of the B-12 she is losing her hair terrible. * Telephone Encounter - Rusty Newman DO - 01/20/2024 12:39 PM EDT Message noted. She can restart taking the B12 tablets. She can use over-the -counter, or, I can send a prescription. Her choice. * Telephone Encounter - Fatoumata Chacko CMA - 01/20/2024 12:39 PM EDT Mialbox full. Unable to leave message. documented in this encounter Plan of Treatment Upcoming Encounters Date Type Department Care Team (Late st Contact Info) Description 03/02/2025 2:20 PM EST Office Visit [facility] Internal Medicine - Family Medicine [address] [place] [address] documented as of this encounter Visit Diagnoses Not on filedocumented in this encounter Additional Health Concerns Infection Onset Date Last Indicated Resolved Time Respiratory Rule-Out 10/23/2024 10/23/2024 025 10:09 AM EDT Enteric Rule-Out 10/23/2024 10/23/2024 10/23/2024 3:11 PM EDT Respiratory Rule-Out 10/23/2024 10/23/2024 025 11:44 AM EDT Norovirus 10/23/2024 10/23/202410/27/2024 8:08 PM EDT Assessment Noted Time PHQ-9 Depression Total Score: 0 01/20/20 11:54 AM EDT documented as of this encounter Care Teams Case Briefer Relationship Specialty Start Date End Date Rusty Newman DO [address] [place] [address] PCP - General 11/09/13 documented as of this encounter
--- OUTSIDE RECORDS SUMMARY | 2024-12-07 09:48 | XMS_ITS | CCD ---
Author Organization [facility] Care Team Providers Care Molding Press Operator Name Role Phone LAKSHMIPATHY, NARENDRANATH Attending [...] YUHAS, DR VIVAS Primary Care Unavailable Zieber, Dl Consulting Unavailable BARRAZA ., DR YINKA Alford [...] Unavailable LAKSHMIPATHY, NARENDRANATH Attending Unava ilable LAKSHMIPATHY, NARENDRANATH Admitting Unava ilable YURAFIQ, DR VIVAS Primary Care Unavailable LAKSHMIPATHY, NARENDRANATH Consulting Unava ilable SHANNEN BLAIR Consulting Unavailable LAKSHMIPATHY, NARENDRANATH Attending Unava ilable YURAFIQ, DR VIVAS Primary Care Unavailable LAKSHMIPATHY, NARENDRANATH Admitting Unava ilable LAKSHMIPATHY, NARENDRANATH Consulting Unava ilable Sangeetha Quick MD Primary Care Provider Sangeetha Quick DO Primary Care Provider Delmer You MD Attending Unavailable Sangeetha Quick DO Primary Care Provider SANGEETHA QUICK Attending Unavailable SANGEETHA QUICK Primary Care Unavailable SANGEETHA QUICK Referring Unavailable SANGEETHA QUICK Primary Care Unavailable Sangeetha Quick MD Primary Care Provider JR. SUZIE, ANGELLA Campos Attending Unavailfiliberto MCKEON JR., ANGELLA Campos Referring Unavaila KATHRYN Cuevas Attending Unavailable KATHRYN CAGLE Referring Unavailable JR. SUZIE, ANGELLA Campos Attending Unavaila paul MCKEON JR., ANGELLA Campos Attending Unavaila SANGEETHA Wills Attending Unavailable SANGEETHA QUICK Referring Unavailable SANGEETHA [...] Unavailable YUHAS, SANGEETHA L Primary Care Unavailable CHEWILLIDEMARTIN Attending Unavailable YUHAS, SANGEETHA L Attending Unavailable YUHAS, SANGEETHA L Referring Unavailable YUHAS, SANGEETHA L Primary Care Unavailable Allergies Allergy Classification Reported Allergen(s) Allergy Type Date of Onset Reaction(s) Facility (1 source) Aspirin Drug Allergy [facility] (4 sources) Codeine; Translations: [CODEINE] Drug Allergy 8 [facility] (1 source) Etodolac Drug Allergy [facility] (4 sources) Iodine; Translations: [IODINE] Drug Allergy 8 [facility] (4 sources) Latex; Translations: [LATEX] Drug allergy (disorder) 3 [facility] (1 source) pregabalin Drug Allergy [facility] (1 source) Sulfonamides (Antibiotic) Drug allergy (disorder) [facility] (12 sources) Aluminum aspirin Drug Allergy 4 [facility] (20 sources) Codeine Drug Allergy 8 Rash, Unknown [facility] (15 sources) Etodolac; Translations: [ETODOLAC] Propensity to adverse reactions 3 [facility] (20 sources) Iodine Drug Allergy 8 Anaphylaxis [facility] (12 sources) Latex Propensity to adverse reactions 3 [facility] (15 sources) Penicillins; Translations: [PENICILLINS] Drug Intolerance 8 Hives [facility] (20 sources) Sulfonamides (Antibiotic) Drug Intolerance 8 Rash, Unknown [facility] (20 sources) Aspirin; Translations: [ASPIRIN, BUFFERED] Drug Allergy 8 [facility] (20 sources) Etodolac Drug Allergy 3 [facility] (20 sources) Latex Propensity to adverse reactions to drug 3 [facility] (16 sources) Penicillins Propensity to adverse reactions to drug 8 [facility] (6 sources) Penicillins Propensity to adverse reactions to drug 8 [facility] (3 sources) Sulfonamides (Antibiotic); Translations: [...] 5 days. 20 tablet 12/24/2023 12/29/2023 Active cephalexin 500 mg oral capsule (1 source) Cephalosporin Antibacterial Start: 10-23-2024 End: 10-30-2024 take 1 capsule by mouth in the morning, then take 1 capsule by mouth at bedtime CEPHalexin (KEFLEX) 500 mg capsule Take 1 capsule (500 mg total) by mouth in the morning and 1 capsule (500 mg total) before bedtime. Do all this for 7 days. 14 capsule 10/23/2024 10/30/2024 Active cholecalciferol 1.25 mg oral capsule (20 sources) Vitamin D Start: 05-22-2023 End: 02-25-2024 take 1 capsule by mouth every week cholecalciferol (VITAMIN D3) 50,000 units capsule Indications: Vitamin D deficiency, unspecified TAKE 1 CAPSULE BY MOUTH ONCE WEEKLY 12 capsule 3 02/25/2024 Active estradiol 0.1 mg/ml vaginal cream (20 sources) Estrogen Start: 03-19-2023 End: 11-02-2024 estradioL (ESTRACE) 0.01 % (0.1 mg/gram) vaginal cream Indications: Lichen planus atrophicus Use at night once or twice weekly 42.5 g 1 11/02/2024 Active Start: 03-19-2023 estradiol (Est race) 0.1 MG/GM vaginal cream Use at night once or twice weekly 03/19/2023 Active levothyroxine sodium 0.05 mg oral tablet (20 sources) l-Thyroxine Start: 05-21-2023 End: 08-30-2024 take 1 tablet by mouth once daily levothyroxine (SYNTHROID, LEVOTHROID) 50 MCG tablet Indications: Hypothyroidism TAKE 1 TABLET BY MOUTH EVERY DAY 90 tablet 1 08/30/2024 Active meloxicam 15 mg oral tablet (3 sources) Nonsteroidal Anti-inflammatory Drug Start: 11-02-2024 take 1 tablet by mouth in the morning meloxicam (MOBIC) 15 mg tablet Indications: Degenerative lumbar spinal stenosis Take 1 tablet (15 mg total) by mouth in the morning. 30 tablet 11/02/2024 Active metoclopramide 10 mg oral tablet (4 sources) Dopamine-2 Receptor Antagonist Start: 11-02-2024 take 1 tablet by mouth once daily as needed for nausea metoclopramide (REGLAN) 10 mg tablet Indications: Hiatal hernia Take 1 tablet (10 mg total) by mouth daily as needed (nausea). 10 tablet 11/02/2024 Active Start: 10-23-2024 End: 10-28-2024 metoclopramide (REGLAN) 10 m g tablet Take 0.5 tablets (5 mg total) by mouth in the morning and 0.5 tablets (5 mg total) at noon and 0.5 tablets (5 mg total) in the evening and 0.5 tablets (5 mg total) before bedtime. Do all this for 5 days. 10 tablet 10/23/2024 10/28/2024 Active ondansetron 4 mg disintegrating oral tablet (17 sources) Serotonin-3 Receptor Antagonist Start: 12-24-2023 ondansetron [...] (20 sources) Nonergot Dopamine Agonist Start: 03-15-2022 rOPINIRole (REQUIP) 0.25 mg tablet 03/15/2022 Active rosuvastatin calcium 10 mg oral tablet (20 sources) HMG-CoA Reductase Inhibitor Start: 05-21-2023 End: 06-09-2024 take 1 tablet by mouth once daily rosuvastatin (CRESTOR) 10 mg tablet Indications: Hyperlipidemia, unspecified TAKE 1 TABLET BY MOUTH EVERY DAY 90 tablet 1 06/09/2024 Active tiZANidine 4 mg oral capsule (20 sources) Central alpha-2 Adrenergic Agonist Start: 08-02-2024 take 1 capsule by mouth in the morning, then take 1 capsule by mouth at bedtime tiZANidine (ZANAFLEX) 4 mg capsule Indications: muscle spasm Take 1 capsule (4 mg total) by mouth in the morning and 1 capsule (4 mg total) before bedtime. Indications: muscle spasm. Unsure if taking. 08/02/2024 Active Start: 05-27-2023 take 1 tablet by mike twice daily as needed tiZANidine (Zanaflex) 4 MG tablet TAKE 1/2-1 TABLET BY MOUTH TWICE A DAY NEEDED 05/27/2023 Active Start: 07-14-2022 End: 08-18-2024 take 1 tablet by mouth twice daily as needed for muscle spasms tiZANidine (ZANAFLEX) 2 mg tablet Indications: Left cervical radiculopathy TAKE 1 TABLET BY MOUTH TWICE DAILY NEEDED FOR MUSCLE SPASMS 30 tablet 2 07/14/2022 08/18/2024 Discontinued (Dose adjustment) vitamin b12 1 mg oral tablet (20 sources) Vitamin B12 Start: 11-18-2024 take 1 tablet by mouth in the morning cyanocobalamin 1000 MCG tablet Indications: Cobalamin deficiency TAKE 1 TABLET (1,000 MCG TOTAL) BY MOUTH IN THE MORNING 90 tablet 1 11/18/2024 Active Start: 05-20-2024 End: 11-18-2024 take 1 tablet by mouth in the morning cyanocobalamin (vitamin B-12) 1000 MCG tablet Indications: Cobalamin deficiency Take 1 tablet (1,000 mcg total) by mouth in the morning. 90 tablet 1 05/20/2024 11/18/2024 Discontinued Start: 11-07-2022 End: 01-20-2024 take 2 tablets [...] 3.5 g 01/20/2024 02/27/2024 Discontinued (Therapy completed) ergocalciferol 1.25 mg oral capsule (20 sources) Provitamin D2 Compound Start: 3 End: 5 ergocalciferol (DRISDOL) 1,250 mcg (50,000 unit) capsule 02/16/2023 08/18/2024 Discontinued (Duplicate Listing) loperamide hydrochloride 2 mg oral tablet (1 [...] 1 ml methylPREDNISolone acetate 40 mg/ml injection (10 sources) Corticosteroid Start: 5 End: 5 methylPREDNISolone acetate (DEPO-Medrol) injection 40 mg Start: 10-21-2024 End: 10-21-2024 40 mg, Intra-articular, Once PRN Procedure, Starting on Sat10/21/24 at 1048, For 1 dose Start: 09-09-2024 End: 09-09-2024 methylPREDNISolone acetate ( DEPO-Medrol) injection 40 mg Start: 09-09-2024 End: 09-09-2024 40 mg, Intra-articular, Once PRN Procedure, Starting on Sat09/09/24 at 1026, For 1 dose Start: 07-25-2023 End: 07-25-2023 methylPREDNISolone acetate ( DEPO-MEDROL) injection 40 mg Start: 07-25-2023 End: 07-25-2023 40 mg, intra-articular, Once , On Marita 07/25/23 at 1145, For 1 dose, Look-alike/sound-alike medication - verify indication for use. May alter blood glucose or insulin requirements. traMADol hydrochloride 50 mg oral tablet (20 sources) Opioid Agonist Start: 03-19-2022 End: 11-02-2024 traMADoL (ULTRAM) 50 mg tablet 03/19/2022 11/02/2024 Discontinued (Patient Stopped On Own) 100 ml zoledronic acid 0.05 mg/ml injection [...] Classification Problem Date Documented Date Episodic/Chronic Abdominal pain (1 source) Abdominal pain Onset: 10-23-2024 Episodic Anxiety disorders (1 source) Anxiety disorder, unspecified; Translations: [ANXIETY DISORDER UNSPECIFIED] Onset: 08-22-2022 Chronic Disorders of lipid metabolism (20 sources) Hyperlipidemia; Translations: [Hyperlipidemia, unspecified] Onset: 12-15-2020 12-15-2020 Chronic Mood disorders (20 sources) Depressive disorder; Translations: [Depressive disorder] Onset: 03-27-2018 12-15-2020 Chronic Nausea and vomiting (5 sources) Nausea and vomiting; Translations: [Nausea with vomiting, unspecified] Onset: 2023 12-24-2023 Episodic Nutritional deficiencies (5 sources) Vitamin D deficiency; Translations: [Vitamin D deficiency, unspecified] Onset: 12-24-2023 05-19-2024 Chronic Nutritional deficiencies (20 sources) Cobalamin deficiency; Translations: [Deficiency of other specified B group vitamins] Onset: 04-19-2021 05-19-2024 Episodic Osteoarthritis (20 sources) Osteoarthritis of left knee joint; Translations: [Unilateral primary osteoarthritis, left knee] Onset: 12-15-2020 01-20-2024 Chronic Osteoporosis (20 sources) Senile osteoporosis; Translations: [Age-related osteoporosis without current pathological fracture] Onset: 12-31-2022 12-31-2022 Chronic Other circulatory disease (1 source) Elevated blood pressure; Translations: [Elevated blood-pressure reading, without diagnosis of hypertension] 08-18-2024 Episodic Other circulatory disease (1 source) Elevated blood-pressure reading, without diagnosis of hypertension; Translations: [Elevated blood-pressure reading, without diagnosis of hypertension] Onset: 08-18-2024 Episodic Other connective tissue disease (1 source) Other muscle spasm; Translations: [OTHER MUSCLE SPASM] Onset: 08-22-2022 Episodic Other connective tissue disease (1 source) Pain in right foot; Translations: [Pain in right foot] 05-19-2024 Episodic Other connective tissue disease (2 sources) Nontraumatic complete rupture of rotator cuff of right shoulder; Translations: [Complete rotator cuff tear or rupture of right shoulder, not specified as traumatic] 09-15-2024 Episodic Other hereditary and degenerative nervous system conditions (1 source) Restless legs syndrome; Translations: [RESTLESS LEGS SYNDROME] Onset: 01-13-2022 Chronic Other inflammatory condition of skin (2 sources) Atrophic lichen planus; Translations: [Lichen planus, unspecified] 05-19-2024 Episodic Other nervous system disorders (5 [...] Chronic Other non-traumatic joint disorders (2 sources) Rotator cuff arthropathy of right shoulder; Translations: [Other specific arthropathies, not elsewhere classified, right shoulder] 10-31-2024 Chronic Other non-traumatic joint disorders (2 sources) Pain in left knee; Translations: [Pain in joint, lower leg] 01-07-2024 Episodic Other non-traumatic joint disorders (4 sources) Pain in right shoulder; Translations: [Pain in joint, shoulder region] 09-09-2024 Episodic Prolapse of female genital organs (20 sources) Cystocele; Translations: [Cystocele, unspecified] Onset: 12-15-2020 12-15-2020 Chronic Residual codes; unclassified (20 sources) Obstructive sleep apnea syndrome; Translations: [Obstructive sleep apnea (adult) (pediatric)] Onset: 12-15-2020 12-15-2020 Chronic Spondylosis; intervertebral disc disorders; other back problems (20 sources) Intervertebral disc disorders with myelopathy, lumbar region; Translations: [Other spondylosis with radiculopathy, lumbar region] Onset: 05-27-2017 Chronic Spondylosis; intervertebral disc disorders; other back problems (17 sources) Intervertebral disc disorders with radiculopathy, lumbar region; Translations: [Spinal stenosis, lumbar region without neurogenic claudication] Onset: 12-14-2021 Episodic Thyroid disorders (20 sources) Hypothyroidism; Translations: [Hypothyroidism, unspecified] Onset: 12-15-2020 05-19-2024 Chronic Unclassified (1 source) LOW BACK PAIN, UNSPECIFIED; Translations: [LOW BACK PAIN, UNSPECIFIED] Onset: 02-13-2022 Unclassified (1 source) swollen right eye.Since sat 01/17 Onset: 01-20-2024 Unclassified (1 source) Outpatient Infusion Onset: 02-06-2024 Unclassified (1 source) vomiting, diarrhea Onset: 2023 Urinary tract infections (1 source) Acute cystitis without hematuria; Translations: [Acute cystitis without hematuria] Onset: 10-23-2024 Episodic Past or Other Problems Problem Classification Problem Date Documented Da te Episodic/Chronic Abdominal hernia (20 sources) Hiatal hernia; Translations: [Diaphragmatic hernia without obstruction or gangrene] Onset: 3 04-17-2022 Episodic Immunizations and screening for infectious disease (2 sources) Immunization due; Translations: [Encounter for immunization] 07-01-2023 Episodic Inflammation; infection of eye (except that caused by tuberculosis or sexually transmitteddisease) (5 sources) Hordeolum externum of upper eyelid of right eye; Translations: [Hordeolum externum right upper eyelid] Onset: 4 01-20-2024 Episodic Intestinal infection (3 sources) Viral gastroenteritis due to [place]-like agent; Translations: [Acute gastroenteropathy due to [place] agent] Onset: 4 11-02-2024 Episodic Mood disorders (20 sources) Mood disorders Onset: 5 Resolved: 5 05-19-2024 Other connective tissue disease (2 sources) Pain in right foot; Translations: [Pain in right foot] Onset: 5 Episodic Other female genital disorders (20 sources) Leukoplakia of vulva; Translations: [Circumscribed scleroderma] Onset: 9 12-15-2020 Episodic Other gastrointestinal disorders (2 sources) Diarrhea; Translations: [Diarrhea, unspecified] Onset: 4 12-24-2023 Episodic Other gastrointestinal disorders (2 sources) Diarrhea, unspecified; Translations: [Diarrhea, unspecified] Onset: 4 Episodic Other inflammatory condition of skin (1 source) Lichen planus, unspecified; Translations: [Lichen planus, unspecified] Onset: 5 Episodic Other screening for suspected conditions (not mental disorders or infectious disease) (1 source) Encounter for screening mammogram for malignant neoplasm of breast; Translations: [Encounter for screening mammogram for malignant neoplasm of breast] Onset: 4 Episodic Other skin disorders (20 sources) Alopecia; Translations: [Nonscarring hair loss, unspecified] Onset: 1 12-15-2020 Episodic Unclassified (4 sources) Acute pain of right shoulder 09-15-2024 Results Test Name Value Interpretation Reference Range Facility XR SPINE LUMBAR 2 OR 3 Son 11-05-2024 XR SPINE LUMBAR 2 OR 3 VWS XR SPINE LUMBAR 2 OR 3 VWS CLINICAL INFORMATION: Degenerative lumbar spinal stenosis TECHNIQUE: [...] Peterson Nugent MD on 11/05/2024 10:41 PM Normal [facility] CBC WITH AUTO DIFFERENTIALon 10-23-2024 BASOPHILS ABSOLUTE COUNT (10*3/UL) BY AUTOMATED COUNT 0.0 10*3/uL Normal 0.0-0.2 [facility] Comment on above: Performed By: #### Renee HARDY CMP, 3040-3 #### [facility] ([id number]) [address] [place] [address] 16951 BASOPHILS RELATIVE PERCENT BY AUTOMATED COUNT 0.2 % Normal [facility] Comment on above: Performed By: #### Renee HARDY CMP, 3040-3 #### [facility] ([id number]) [address] [place] [address] 31703 CELLAVISION DIFFERENTIAL TYPE AUTOMATED DIFFERENTIAL Normal [facility] Comment on above: Performed By: #### Rneee HARDY, CMP, 3040-3 #### [facility] ([id number]) [address] [place] [address] 84842 Eosinophils (Bld) [#/Vol] 0.0 10*3/uL Normal 0.0-0.4 [facility] Comment on above: Performed By: #### Renee BCA, CMP, 3040-3 #### [facility] ([id number]) [address] [place] [address] 35030 EOSINOPHILS RELATIVE PERCENT BY AUTOMATED COUNT 0.2 % Normal [facility] Comment on above: Performed By: #### Renee HARDY CMP, 3039-06 #### [facility] ([id number]) [address] [place] [address] 62786 Erythrocyte distribution width (RBC) [Ratio] 15.0 % Normal 11.5-15 [facility] Comment on above: Performed By: #### Renee HARDY CMP, 3039-06 #### [facility] ([id number]) [address] [place] [address] 63740 Hematocrit (Bld) [Volume fraction] 37.5 % Normal 35-47 [facility] Comment on above: Performed By: #### Renee HARDY CMP, 3 #### [facility] ([id number]) [address] [place] [address] 72460 Hemoglobin (Bld) [Mass/Vol] 12.4 g/dL Normal 11.7-15.5 [facility] Comment on above: Performed By: #### Renee HARDY CMP, 3039-06 #### [facility] ([id number]) [address] [place] [address] 32874 LYMPHOCYTES ABSOLUTE COUNT (10*3/UL) BY AUTOMATED COUNT 0.8 10*3/uL Low 1.0-3.5 [facility] Comment on above: Performed By: #### Renee HARDY CMP, 3 #### [facility] ([id number]) [address] [place] [address] 65865 LYMPHOCYTES RELATIVE PERCENT BY AUTOMATED COUNT 5.8 % Normal [facility] Comment on above: Performed By: #### Renee HARDY CMP, 3 #### [facility] ([id number]) [address] [place] [address] 14454 MCH (RBC) [Entitic mass] 28.4 pg Normal 27-34 [facility] Comment on above: Performed By: #### Renee HARDY CMP, 0-3 #### [facility] ([id number]) [address] [place] [address] 88837 MCHC (RBC) [Mass/Vol] 33.2 g/dL Normal 32-36 [facility] Comment on above: Performed By: #### Renee HARDY CMP, 3039-3 #### [facility] ([id number]) [address] [place] [address] 15392 MCV (RBC) [Entitic vol] 86 fL Normal 80-100 [facility] Comment on above: Performed By: #### Renee HARDY CMP, 3039-3 #### [facility] ([id number]) [address] [place] [address] 64734 MONOCYTES ABSOLUTE COUNT (10*3/UL) BY AUTOMATED COUNT 0.6 10*3/uL Normal 0.0-0.9 [facility] Comment on above: Performed By: #### Renee HARDY CMP, 3039-3 #### [facility] ([id number]) [address] [place] [address] 97000 MONOCYTES RELATIVE PERCENT BY AUTOMATED COUNT 4.1 % Normal [facility] Comment on above: Performed By: #### Renee HARDY CMP, 0-3 #### [facility] ([id number]) [address] [place] [address] 72009 NEUTROPHILS ABSOLUTE COUNT BY AUTOMATED COUNT 12.1 10*3/uL High 1.5-6.6 [facility] Comment on above: Performed By: #### Renee HARDY CMP, 3039-3 #### [facility] ([id number]) [address] [place] [address] 94639 NEUTROPHILS RELATIVE PERCENT BY AUTOMATED COUNT 89.7 % Normal [facility] Comment on above: Performed By: #### Renee HARDY CMP, 3039-3 #### [facility] ([id number]) [address] [place] [address] 74743 Platelet mean volume (Bld) [Entitic vol] 9.2 fL Normal 7-12 [facility] Comment on above: Performed By: #### C BCA, CMP, 3039-3 #### [facility] ([id number]) [address] [place] [address] 13480 Platelets (Bld) [#/Vol] 275 10*3/uL Normal 150-450 [facility] Comment on above: Performed By: #### Renee HARDY, CMP, 3039-06 #### [facility] ([id number]) [address] [place] [address] 93066 RBC COUNT 4.38 X10E12/L Normal 3.8-5.2 [facility] Comment on above: Performed By: #### Renee BCA, CMP, 3 #### [facility] ([id number]) [address] [place] [address] 96098 WBC (Bld) [#/Vol] 13.4 10*3/uL High 4-11 [facility] Comment on above: Performed By: #### Renee HARDY, CMP, 3039-06 #### [facility] ([id number]) [address] [place] [address] 40781 COMPREHENSIVE METABOLIC PANE Ulices 10-23-2024 Albumin [Mass/Vol] 4.4 g/dL Normal 3.2-5.3 [facility] Comment on above: Performed By: #### Renee BCA, CMP, 3 #### [facility] ([id number]) [address] [place] [address] 84139 ALP [Catalytic activity/Vol] 59 U/L Normal 39-130 [facility] Comment on above: Performed By: #### Renee BCA, CMP, 3039-3 #### [facility] ([id number]) [address] [place] [address] 66870 ALT [Catalytic activity/Vol] 16 U/L Normal <=31 [facility] Comment on above: Performed By: #### C BCA, CMP, 0-3 #### [facility] ([id number]) [address] [place] [address] 93882 Anion gap [Moles/Vol] 9 mmol/L Normal 5-15 [facility] Comment on above: Performed By: #### C HAYLEY, CMP, 3 #### [facility] ([id number]) [address] [place] [address] 61731 AST [Catalytic activity/Vol] 18 U/L Normal <=41 [facility] Comment on above: Performed By: #### C HAYLEY, CMP, 3 #### [facility] ([id number]) [address] [place] [address] 30670 Bilirubin [Mass/Vol] 0.6 mg/dL Normal 0.3-1.2 [facility] Comment on above: Performed By: #### C HAYLEY, [facility], 3 #### [facility] ([id number]) [address] [place] [address] 43799 Calcium [Mass/Vol] 8.6 mg/dL Normal 8.5-10.5 [facility] Comment on above: Performed By: #### C BCA, CMP, 3039-3 #### [facility] ([id number]) [address] [place] [address] 95493 Chloride [Moles/Vol] 106 mmol/L Normal 98-109 [facility] Comment on above: Performed By: #### C BCA, CMP, 3039-3 #### [facility] ([id number]) [address] [place] [address] 82467 CO2 [Moles/Vol] 23 mmol/L Normal 22-32 [facility] Comment on above: Performed By: #### C HAYLEY [facility], 3040-3 #### [facility] ([id number]) [address] [place] [address] 41677 Creatinine [Mass/Vol] 0.62 mg/dL Normal 0.40-1.00 [facility] Comment on above: Result Comment: METH OD TRACEABLE TO IDMS STANDARD Performed By: #### C HAYLEY [facility], 0-3 #### [facility] ([id number]) [address] [place] [address] 19299 EGFR (CKD-EPI) NON-RACE DEPENDENT >^90 Normal >=60 [facility] Comment on above: Result Comment: eGFR not reported due to non-numeric value for Creatinine. Reported eGFR is based on the CKD-EPI 2020 equation that does not use a race coefficient. Performed By: #### C HAYLEY [facility], 3 #### [facility] ([id number]) [address] [place] [address] 62460 Glucose [Mass/Vol] 142 mg/dL High 65-99 [facility] Comment on above: Performed By: #### C HAYLEY [facility], 3039-3 #### [facility] ([id number]) [address] [place] [address] 05500 Potassium [Moles/Vol] 3.7 mmol/L Normal 3.5-5.0 [facility] Comment on above: Performed By: #### C HAYLEY [facility], 0-3 #### [facility] ([id number]) [address] [place] [address] 33430 Protein [Mass/Vol] 7.4 g/dL Normal 6.0-8.0 [facility] Comment on above: Performed By: #### C AHYLEY [facility], 3040-3 #### [facility] ([id number]) [address] [place] [address] Sodium [Moles/Vol] 138 mmol/L Normal 134-146 [facility] Comment on above: Performed By: #### C TANNER HARDY, 3040-3 #### [facility] ([id number]) [address] [place] [address] Urea nitrogen [Mass/Vol] 18 mg/dL Normal 5-27 [facility] Comment on above: Performed By: #### C TANNER HARDY, 3040-3 #### [facility] ([id number]) [address] [place] [address] CT ABDOMEN AND PELVIS WO CON Ton 10-23-2024 CT ABDOMEN AND PELVIS WO CONT CT ABDOMEN AND PELVIS WO CONT Nonenhanced CT of the abdomen and pelvis [...] or hydronephrosis. 3. No acute abnormality seen. 1 Finalized by Mono Mcmanus MD on 10/23/2024 10:12 AM Normal [facility] GI PANEL STOOL PATHOGEN PANE Ulices 10-23-2024 ADENOVIRUS Not detected Normal Not Detected [facility] Comment on above: Performed By: #### C TANNER HARDY, 3040-3 #### [facility] ([id number]) [address] [place] [address] [place] [address] AGGREGATIVE E COLI Not detected Normal Not Detected [facility] Comment on above: Performed By: #### C BCA, CMP, 3040-3 #### [facility] ([id number]) [address] [place] [address], [place] [address] ASTROVIRUS Not detected Normal Not Detected [facility] Comment on above: Performed By: #### C BCA, CMP, 3040-3 #### [facility] ([id number]) [address] [place] [address], [place] [address] CAMPYLOBACTER Not detected Normal Not Detected [facility] Comment on above: Performed By: #### C BCA, CMP, 0-3 #### [facility] ([id number]) [address] [place] [address] [place] [address] CRYPTOSPORIDIUM Not detected Normal Not Detected [facility] Comment on above: Performed By: #### C BCA, CMP, 0-3 #### [facility] ([id number]) [address] [place] [address] [place] [address] CYCLOSPORA Not detected Normal Not Detected [facility] Comment on above: Performed By: #### C BCA, CMP, 0-3 #### [facility] ([id number]) [address] [place] [address] [place] [address] E HISTOLYTICA Not detected Normal Not Detected [facility] Comment on above: Performed By: #### C BCA, CMP, 3040-3 #### [facility] ([id number]) [address] [place] [address] [place] [address] GIARDIA LAMBLIA Not detected Normal Not Detected [facility] Comment on above: Performed By: #### C BCA, CMP, 3040-3 #### [facility] ([id number]) [address] [place] [address] [place] [address] NOROVIRUS Detected Abnormal Not Detected [facility] Comment on above: Result Comment: Dete cts the following: Norovirus Genogroups I, II. The assistant professor of religion has reported an increase in false positive Norovirus results. If the positive test is inconsistent with clinical presentation, a secondary method should be used to confirm the results. Performed By: #### C BCA, CMP, 3040-3 #### [facility] ([id number]) [address] [place] [address] PATHOGENIC E COLI Not detected Normal Not Detected [facility] Comment on above: Performed By: #### C BCA, CMP, 3040-3 #### [facility] ([id number]) [address] [place] [address] PLESIOMONAS Not detected Normal Not Detected [facility] Comment on above: Performed By: #### C BCA, CMP, 3040-3 #### [facility] ([id number]) [address] [place] [address] ROTAVIRUS A Not detected Normal Not Detected [facility] Comment on above: Performed By: #### C BCA, CMP, 3040-3 #### [facility] ([id number]) [address] [place] [address] SALMONELLA Not detected Normal Not Detected [facility] Comment on above: Performed By: #### C BCA, CMP, 3040-3 #### [facility] ([id number]) [address] [place] [address] SAPOVIRUS Not detected Normal Not Detected [facility] Comment on above: Performed By: #### C BCA, CMP, 3040-3 #### [facility] ([id number]) [address] [place] [address] SHIGA TOXIN E COLI Not detected Normal Not Detected [facility] Comment on above: Performed By: #### C BCA, CMP, 3040-3 #### [facility] ([id number]) [address] [place] [address] [place] [address] SHIGELLA-E COLI Not detected Normal Not Detected [facility] Comment on above: Performed By: #### C TANNER HARDY, 3039-3 #### [facility] ([id number]) [address] [place] [address] [place] [address] TOXIGENIC E COLI Not detected Normal Not Detected [facility] Comment on above: Performed By: #### C TANNER HARDY, 3039-3 #### [facility] ([id number]) [address] [place] [address] VIBRIO Not detected Normal Not Detected [facility] Comment on above: Performed By: #### Renee HARDY CMP, 3039-3 #### [facility] ([id number]) [address] [place] [address] VIBRIO CHOLERAE Not detected Normal Not Detected [facility] Comment on above: Performed By: #### Renee HARDY [facility], 3039-3 #### [facility] ([id number]) [address] [place] [address] Y. ENTEROCOLITICA Not detected Normal Not Detected [facility] Comment on above: Performed By: #### Renee HARDY CMP, 3039-3 #### [facility] ([id number]) [address] [place] [address] LIPASEon 10-23-2024 Lipase [Catalytic activity/Vol] 28 U/L Normal 17-40 [facility] Comment on above: Performed By: #### Renee HARDY CMP, 3039-3 #### [facility] ([id number]) [address] [place] [address] MAGNESIUMon 10-23-2024 Magnesium [Mass/Vol] 1.8 mg/dL Normal 1.8-2.6 [facility] Comment on above: Performed By: #### Renee HARDY CMP, 3039-3 #### [facility] ([id number]) [address] [place] [address] POCT NURSING URINE MACROSCOP IC UAon 10-23-2024 BILIRUBIN STUART Negative Normal Negative [facility] Comment on above: Performed By: #### C HAYLEY, CMP, 0-3 #### [facility] ([id number]) [address] [place] [address] BLOOD/HGB STUART Trace Abnormal Negative [facility] Comment on above: Performed By: #### C HAYLEY, CMP, 3039-3 #### [facility] ([id number]) [address] [place] [address] GLUCOSE STUART Negative Normal Negative [facility] Comment on above: Performed By: #### Renee HARDY, CMP, 3039-3 #### [facility] ([id number]) [address] [place] [address] KETONES STUART 15 mg/dL Abnormal Negative [facility] Comment on above: Performed By: #### Renee HARDY, CMP, 3039-3 #### [facility] ([id number]) [address] [place] [address] LEUKOCYTE ESTERASE STUART Negative Normal Negative [facility] Comment on above: Performed By: #### Renee HARDY, CMP, 3039-3 #### [facility] ([id number]) [address] [place] [address] [place] [address] NITRITE STUART Positive Abnormal Negative [facility] Comment on above: Performed By: #### Renee BCA, CMP, 0-3 #### [facility] ([id number]) [address] [place] [address] PH STUART 7.0 Normal 5.0, 6.0, 6.5, 7.0, 7.5, 8.0, 8.5, 5.5 [facility] Comment on above: Performed By: #### C BCA, CMP, 0-3 #### [facility] ([id number]) [address] [place] [address] PROTEIN STUART Trace Abnormal Negative [facility] Comment on above: Performed By: #### C TANNER HARDY, 3040-3 #### [facility] ([id number]) [address] [place] [address] SPECIFIC GRAVITY STUART 1.020 Normal 1.010, 1.015, 1.020, 1.025 [facility] Comment on above: Performed By: #### C HAYLEY [facility], 3040-3 #### [facility] ([id number]) [address] [place] [address] UROBILINOGEN STUART 0.2 E.U./dL Normal [facility] Comment on above: Performed By: #### Renee HARDY [facility], 3040-3 #### [facility] ([id number]) [address] [place] [address] SARS/FLU A+B/RSV BY NAAT/MOL ECULAR (M4RT COLLECTION TUBE)on 10-23-2024 SARS/FLU A+B/RSV BY NAAT/MOLECULAR (M4RT COLLECTION TUBE) FLU A PCR Negative FLU B PCR Negative RSV BY PCR Negative SARS COV 2 BY PCR Not Detected Normal Not Detected [facility] Comment on above: Order Comment: The X pert Xpress SARS-CoV-2/Flu/RSV Plus test is a rapid, [...] operators who are performing tests using either Qriously DX or Favim systems and is limited to laboratories that [...] inhibition unable to be resolved with specimen repeat.Fact Sheet for Healthcare Providers:https://www.fda.gov/media/359098/downloadFact Sheet for Patients:https://www.fda.gov/media/874701/download Performed By: #### C HAYLEY, [facility], 3040-3 #### [facility] ([id number]) [address] [place] [address] No Panel Informationon 10-21 Jr. Angella campos, DO 10/31/2024 4:18 PM L Inj/Asp: R subacromial bursa on 10/21/2024 10:48 AM Indications: pain Details: 21 G needle, posterior approach Medications: 40 mg methylPREDNISolone acetate 40 MG/ML Outcome: tolerated well, no immediate complications SKIN PREPPED WITH ISOPROPYL ALCOHOL Procedure, treatment alternatives, risks and benefits explained, specific risks discussed. Consent was given by the [facility]. [facility] Panel Informationon 09-09 Jr. Angella campos, DO 09/15/2024 7:30 AM L Inj/Asp: R subacromial bursa on 09/09/2024 10:26 AM Indications: pain Details: 21 G needle, posterior approach Medications: 40 mg methylPREDNISolone acetate 40 MG/ML Outcome: tolerated well, no immediate complications Procedure, treatment alternatives, risks and benefits explained, specific risks discussed. Consent was given by the patient. 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 [facility] [employer] Radiology Study observation (narrative) [facility] [employer] [facility] COMPREHENSIVE METABOLIC PANE Ulices 08-18-2024 Albumin [Mass/Vol] 4.3 g/dL Normal 3.2-5.3 [facility] Comment on above: Performed By: #### C MP #### [facility] ([facility]) [address] [place] [address] VIR ALP [Catalytic activity/Vol] 56 U/L Normal 39-130 [facility] Comment on above: Performed By: #### C MP #### [facility] ([facility]) [address] [place] [address] VIR ALT [Catalytic activity/Vol] 15 U/L Normal <=31 [facility] Comment on above: Performed By: #### C MP #### [facility] ([facility]) [address] [place] [address] VIR Anion gap [Moles/Vol] 10 mmol/L Normal 5-15 [facility] Comment on above: Performed By: #### C MP #### [facility] ([facility]) [address] [place] [address] VIR AST [Catalytic activity/Vol] 18 U/L Normal <=41 [facility] Comment on above: Performed By: #### C MP #### [facility] ([facility]) [address] [place] [address] VIR Bilirubin [Mass/Vol] 0.3 mg/dL Normal 0.3-1.2 [facility] Comment on above: Performed By: #### C MP #### [facility] ([facility]) [address] [place] [address] VIR Calcium [Mass/Vol] 9.3 mg/dL Normal 8.5-10.5 [facility] Comment on above: Performed By: #### C MP #### [facility] ([facility]) [address] [place] [address] VIR Chloride [Moles/Vol] 102 mmol/L Normal 98-109 [facility] Comment on above: Performed By: #### C MP #### [facility] ([facility]) [address] [place] [address] VIR CO2 [Moles/Vol] 28 mmol/L Normal 22-32 [facility] Comment on above: Performed By: #### C MP #### [facility] ([facility]) [address] [place] [address] VIR Creatinine [Mass/Vol] 0.59 mg/dL Normal 0.40-1.00 [facility] Comment on above: Result Comment: METH OD TRACEABLE TO IDMS STANDARD Performed By: #### C MP #### [facility] ([facility]) [address] [place] [address] VIR EGFR (CKD-EPI) NON-RACE DEPENDENT >^90 Normal >=60 [facility] Comment on above: Result Comment: Repo rted eGFR is based on the CKD-EPI 2021 equation that does not use a race coefficient. Performed By: #### C MP #### [facility] ([facility]) [address] [place] [address] VIR Glucose [Mass/Vol] 82 mg/dL Normal 65-99 [facility] Comment on above: Performed By: #### C MP #### [facility] ([facility]) [address] [place] [address] VIR Potassium [Moles/Vol] 3.7 mmol/L Normal 3.5-5.0 [facility] Comment on above: Performed By: #### C MP #### [facility] ([facility]) [address] [place] [address] VIR Protein [Mass/Vol] 6.7 g/dL Normal 6.0-8.0 [facility] Comment on above: Performed By: #### C MP #### [facility] ([facility]) [address] [place] [address] VIR Sodium [Moles/Vol] 140 mmol/L Normal 134-146 [facility] Comment on above: Performed By: #### C MP #### [facility] ([facility]) [address] [place] [address] VIR Urea nitrogen [Mass/Vol] 17 mg/dL Normal 5-27 [facility] Comment on above: Performed By: #### C MP #### [facility] ([facility]) [address] [place] [address] VIR LIPID PROFILEon 08-18-2024 Cholesterol [Mass/Vol] 153 mg/dL Normal 150-200 [facility] Comment on above: Performed By: #### L IPR #### [facility] ([facility]) [address] [place] [address] VIR Cholesterol in HDL [Mass/Vol] 54 mg/dL Normal >39 [facility] Comment on above: Result Comment: HDL <40 mg/dL - High Risk HDL > or = 40mg/dL- Desirable HDL >60 mg/dL - Negative Risk Performed By: #### L IPR #### [facility] ([facility]) [address] [place] [address] VIR Cholesterol in LDL [Mass/Vol] 75 mg/dL Normal <130 [facility] Comment on above: Result Comment: LDL <100 mg/dL - Desirable LDL >160 mg/dL - High Risk Performed By: #### L IPR #### [facility] ([facility]) [address] [place] [address] VIR CHOLESTEROL:HDL 2.8 Normal 1.0-5.0 [facility] Comment on above: Performed By: #### L IPR #### [facility] ([facility]) [address] [place] [address] VIR Triglyceride [Mass/Vol] 120 mg/dL Normal 27-150 [facility] Comment on above: Performed By: #### L IPR #### [facility] ([facility]) [address] [place] [address] VIR VERY LOW LIPOPROTEIN 24 mg/dL Normal 0-30 [facility] Comment on above: Performed By: #### L IPR #### [facility] ([facility]) [address] [place] [address] VIR XR FOOT RT MIN 3 VWSon 05-23 [...] Perez MD on 05/23/2024 9:39 PM Normal [facility] CBC AND AUTO DIFFon 05-19-19 25 ABSOLUTE BASOPHIL 0.0 X10E9/L Normal 0.0-0.2 [facility] Comment on above: Performed By: #### C BCA, CMP, THYR, 2131-12, 04963-9 #### [facility] ([id number]) [address] [place] [address] ABSOLUTE NEUTROPHIL 4.4 X10E9/L Normal 1.5-6.6 [facility] Comment on above: Performed By: #### C BCA, CMP, THYR, 2131-12, 62401-5 #### [facility] ([id number]) [address] [place] [address] Basophils/100 WBC (Bld) 0.2 % Normal [facility] Comment on above: Performed By: #### C BCA, CMP, THYR, 2131-12, 59275-1 #### [facility] ([id number]) [address] [place] [address] Eosinophils (Bld) [#/Vol] 0.1 10*3/uL Normal 0.0-0.4 [facility] Comment on above: Performed By: #### C BCA, CMP, THYR, 2131-12, 22577-0 #### [facility] ([id number]) [address] [address] [place] [address] Eosinophils/100 WBC (Bld) 1.2 % Normal [facility] Comment on above: Performed By: #### C BCA, CMP, THYR, 2131-12, 40660-0 #### [facility] ([id number]) [address] [address] [place] [address] Erythrocyte distribution width (RBC) [Ratio] 14.9 % Normal 11.5-15.0 [facility] Comment on above: Performed By: #### C BCA, CMP, THYR, 2131-12, 10745-2 #### [facility] ([id number]) [address] [address] [place] [address] Hematocrit (Bld) [Volume fraction] 34.6 % Low 35-47 [facility] Comment on above: Performed By: #### C BCA, CMP, THYR, 2131-12, 20550-9 #### [facility] ([id number]) [address] [address] [place] [address] Hemoglobin (Bld) [Mass/Vol] 11.2 g/dL Low 11.7-15.5 [facility] Comment on above: Performed By: #### C BCA, CMP, THYR, 2131-12, 01789-8 #### [facility] ([id number]) [address] [address] [place] [address] Lymphocytes (Bld) [#/Vol] 2.5 10*3/uL Normal 1.0-3.5 [facility] Comment on above: Performed By: #### C BCA, CMP, THYR, 2131-12, 31518-0 #### [facility] ([id number]) [address] [address] [place] [address] Lymphocytes/100 WBC (Bld) 33.7 % Normal [facility] Comment on above: Performed By: #### C BCA, CMP, THYR, 2131-12, 11914-2 #### [facility] ([id number]) [address] [place] [address] MCH (RBC) [Entitic mass] 27.7 pg Normal 27-34 [facility] Comment on above: Performed By: #### C BCA, CMP, THYR, 2131-12, 17448-1 #### [facility] ([id number]) [address] [address] [place] [address] MCHC (RBC) [Mass/Vol] 32.4 g/dL Normal 32-36 [facility] Comment on above: Performed By: #### C BCA, CMP, THYR, 2131-12, 20806-8 #### [facility] ([id number]) [address] [address] [place] [address] MCV (RBC) [Entitic vol] 86 fL Normal 80-100 [facility] Comment on above: Performed By: #### C BCA, CMP, THYR, 2131-12, 57304-1 #### [facility] ([id number]) [address] [address] [place] [address] Monocytes (Bld) [#/Vol] 0.4 10*3/uL Normal 0-0.9 [facility] Comment on above: Performed By: #### C BCA, CMP, THYR, 2131-12, 34841-8 #### [facility] ([id number]) [address], [facility] [address] [place] [address] Monocytes/100 WBC (Bld) 5.8 % Normal [facility] Comment on above: Performed By: #### C BCA, CMP, THYR, 2131-12, 17859-6 #### [facility] ([id number]) [address], [facility] [address] [place] [address] Neutrophils/100 WBC (Bld) 59.1 % Normal [facility] Comment on above: Performed By: #### C BCA, CMP, THYR, 2131-12, 29825-7 #### [facility] ([id number]) [address], [facility] [address] [place] [address] Platelet mean volume (Bld) [Entitic vol] 9.4 fL Normal 7-12 [facility] Comment on above: Performed By: #### C BCA, CMP, THYR, 2131-12, 71344-8 #### [facility] ([id number]) [address], [facility] [address] [place] [address] Platelets (Bld) [#/Vol] 242 10*3/uL Normal 150-450 [facility] Comment on above: Performed By: #### C BCA, CMP, THYR, 2131-12, 04762-8 #### [facility] ([id number]) [address], [facility] [address] [place] [address] RBC COUNT 4.04 X10E12/L Normal 3.80-5.20 [facility] Comment on above: Performed By: #### C BCA, CMP, THYR, 2131-12, 93031-8 #### [facility] ([id number]) [address] [place] [address] WBC (Bld) [#/Vol] 7.5 10*3/uL Normal 4.0-11.0 [facility] Comment on above: Performed By: #### C BCA, CMP, THYR, 2131-12, 59412-9 #### [facility] ([id number]) [address] [place] [address] COMPREHENSIVE METABOLIC PANE Ulices 05-19-2024 Albumin [Mass/Vol] 4.3 g/dL Normal 3.2-5.3 [facility] Comment on above: Performed By: #### C BCA, CMP, THYR, 2131-12, 27208-7 #### [facility] ([id number]) [address] [place] [address] ALP [Catalytic activity/Vol] 51 U/L Normal 39-130 [facility] Comment on above: Performed By: #### C BCA, CMP, THYR, 2131-12, 42084-3 #### [facility] ([id number]) [address] [place] [address] ALT [Catalytic activity/Vol] 10 U/L Normal 0-31 [facility] Comment on above: Performed By: #### C BCA, CMP, THYR, 2131-12, 44745-4 #### [facility] ([id number]) [address], [address] [place] [address] Anion gap [Moles/Vol] 8 mmol/L Normal 5-15 [facility] Comment on above: Performed By: #### C BCA, CMP, THYR, 2131-12, 72402-3 #### [facility] ([id number]) [address], [address] [place] [address] AST [Catalytic activity/Vol] 17 U/L Normal 0-41 [facility] Comment on above: Performed By: #### C BCA, CMP, THYR, 2131-12, 15018-4 #### [facility] ([id number]) [address], [address] [place] [address] Bilirubin [Mass/Vol] 0.4 mg/dL Normal 0.3-1.2 [facility] Comment on above: Performed By: #### C BCA, CMP, THYR, 2131-12, 86210-1 #### [facility] ([id number]) [address], [address] [place] [address] Calcium [Mass/Vol] 8.8 mg/dL Normal 8.5-10.5 [facility] Comment on above: Performed By: #### C BCA, CMP, THYR, 2131-12, 02225-9 #### [facility] ([id number]) [address] [place] [address] Chloride [Moles/Vol] 104 mmol/L Normal 98-109 [facility] Comment on above: Performed By: #### C BCA, CMP, THYR, 2131-12, 14185-8 #### [facility] ([id number]) [address] [place] [address] CO2 [Moles/Vol] 28 mmol/L Normal 22-32 [facility] Comment on above: Performed By: #### C BCA, CMP, THYR, 2131-12, 19287-1 #### [facility] ([id number]) [address], [address] [place] [address] Creatinine [Mass/Vol] 0.93 mg/dL Normal 0.40-1.00 [facility] Comment on above: Result Comment: METH OD TRACEABLE TO IDMS STANDARD Performed By: #### C BCA, CMP, THYR, 2131-12, 18317-2 #### [facility] ([id number]) [address] [address] [place] [address] GFR/1.73 sq M.predicted among non-blacks MDRD (S/P/Bld) [Vol rate/Area] 64 mL/min/{1.73_m2} Normal >59 [facility] Comment on above: Result Comment: Reported eGFR is based on the CKD-EPI 2020 equation that does not use a race coefficient. Performed By: #### C BCA, CMP, THYR, 2131-12, 69262-9 #### [facility] ([id number]) [address] [address] [place] [address] Glucose [Mass/Vol] 87 mg/dL Normal 65-99 [facility] Comment on above: Performed By: #### C BCA, CMP, THYR, 2131-12, 54239-7 #### [facility] ([id number]) [address] [address] [place] [address] Potassium [Moles/Vol] 4.1 mmol/L Normal 3.5-5.0 [facility] Comment on above: Performed By: #### C BCA, CMP, THYR, 2131-12, 31682-5 #### [facility] ([id number]) [address] [address] [place] [address] Protein [Mass/Vol] 6.6 g/dL Normal 6.0-8.0 [facility] Comment on above: Performed By: #### C BCA, CMP, THYR, 2131-12, 09884-8 #### [facility] ([id number]) [address] [address] [place] [address] Sodium [Moles/Vol] 140 mmol/L Normal 134-146 [facility] Comment on above: Performed By: #### C BCA, CMP, THYR, 2131-12, 28235-6 #### [facility] ([id number]) [address] [address] [place] [address] Urea nitrogen [Mass/Vol] 20 mg/dL Normal 5-27 [facility] Comment on above: Performed By: #### C BCA, CMP, THYR, 2131-12, 70431-8 #### [facility] ([id number]) [address], [address] [place] [address] THYROID PROFILEon 05-19-2024 Free T4 [Mass/Vol] 0.95 ng/dL Normal 0.61-1.60 [facility] Comment on above: Performed By: #### C BCA, CMP, THYR, 2131-12, 22961-6 #### [facility] ([id number]) [address], [facility] [address] [place] [address] TSH 0.60 uIU/mL Normal 0.49-4.67 [facility] Comment on above: Performed By: #### C BCA, CMP, THYR, 2131-12, 39732-3 #### [facility] ([id number]) [address], [address] [place] [address] VITAMIN B12on 05-19-2024 Cobalamin (Vitamin B12) [Mass/Vol] 319 pg/mL Normal 180-914 [facility] Comment on above: Performed By: #### C BCA, CMP, THYR, 2131-12, 50641-1 #### [facility] ([id number]) [address], [address] [place] [address] Vitamin D+Metabolites [Mass/ Vol]on 05-19-2024 VITAMIN D 25 HYD TOT 97.5 ng/mL Normal 30-100 [facility] Comment on above: Result Comment: Vitamin D status 25 [place] Vitamin D Deficiency <20 ng/mL Insufficiency 20-29 ng/mL Sufficiency 30-100 ng/mL Toxicity >100 ng/mL NOTE: A pediatric reference range has not been established by the assistant professor of religion of this kit. The [place] [employer] recommends a Vitamin D level of = or >20ng/mL in infants and children. Performed By: #### C TANNER HARDY, THYR, 2132-9, 94206-5 #### [facility] ([id number]) [address], [address] [place] [address] ALBUMINon 02-05-2024 Albumin [Mass/Vol] 4.1 g/dL Normal 3.2-5.3 [facility] Comment on above: Performed By: #### 1 751-7, 49788-2, PHARMACISTS, 49654-4 #### [facility] ([id number]) [address], [address] [place] [address] CALCIUMon 02-05-2024 Calcium [Mass/Vol] 8.9 mg/dL Normal 8.5-10.5 [facility] Comment on above: Performed By: #### C TANNER HARDY, 3040-3 #### [facility] ([id number]) [address] [place] [address] CREATININEon 02-05-2024 Creatinine [Mass/Vol] 0.70 mg/dL Normal 0.40-1.00 [facility] Comment on above: Result Comment: METH OD TRACEABLE TO IDMS STANDARD Performed By: #### C TANNER HARDY, 3040-3 #### [facility] ([id number]) [address] [place] [address] GFR/1.73 sq M.predicted among non-blacks MDRD (S/P/Bld) [Vol rate/Area] 90 mL/min/{1.73_m2} Normal >59 [facility] Comment on above: Result Comment: Reported eGFR is based on the CKD-EPI 2020 equation that does not use a race coefficient. Performed By: #### C TANNER HARDY, 3040-3 #### [facility] ([id number]) [address] [place] [address] Vitamin D+Metabolites [Mass/ Vol]on 02-05-2024 VITAMIN D 25 HYD TOT 78.5 ng/mL Normal 30-100 [facility] Comment on above: Result Comment: Vitamin D status 25 [place] Vitamin D Deficiency <20 ng/mL Insufficiency 20-29 ng/mL Sufficiency 30-100 ng/mL Toxicity >100 ng/mL NOTE: A pediatric reference range has not been established by the assistant professor of religion of this kit. The [place] [employer] recommends a Vitamin D level of = or >20ng/mL in infants and children. Performed By: #### C HAYLEY, [facility], 3040-3 #### [facility] ([id number]) [address] [place] [address], [place] [address] XR Knee - left 1 or 2 Viewso n 01-08-2024 Imaging Result: AP and lateral views of left knee showed severe varus deformity with [id number] articulation to the medial joint line, flattening [...] joint disease left knee with varus deformity [facility] XR Knee - left 1 or 2 ViewsO rdered By: Jr. Mckeon on 01-08-2024 [facility] [employer] Work Phone: XR Knee - left 1 or 2 Viewso n 01-07-2024 Radiology Study observation (narrative) [facility] GI PANELon 12-26-2023 Gastrointestinal pathogens DNA and [...] SAPOVIRUS Not detected (qualifier value) Normal NDET [facility] Comment on above: Performed By: #### 8 2195-9 #### [facility] ([id number]) [address] [facility] [place] [address] [facility] ([id number]) [address] [place] [address] [address] [place] [address] MAMM SCREENING BILATERAL W C seafood harvester 12-26-2023 MAMM SCREENING BILATERAL W CAD MAMM SCREENING BILATERAL W CAD RACH MUNROE 1945 [id number] EXAM: MAMM SCREENING BILATERAL W CAD, 12/26/2023 [...] PM 1 c MAMM 1 YR Normal [facility] BASIC METABOLIC PANLon 12-24 Anion gap [Moles/Vol] 10 mmol/L Normal 5-15 [facility] Comment on above: Performed By: #### B , 21305-24 #### [facility] ([id number]) [address], [address] [place] [address] Calcium [Mass/Vol] 8.8 mg/dL Normal 8.5-10.5 [facility] Comment on above: Performed By: #### Lm HARRIS, 2131-12 #### [facility] ([id number]) [address], [address] [place] [address] Chloride [Moles/Vol] 105 mmol/L Normal 98-109 [facility] Comment on above: Performed By: #### Lm HARRIS, 2131-12 #### [facility] ([id number]) [address] [place] [address] CO2 [Moles/Vol] 26 mmol/L Normal 22-32 [facility] Comment on above: Performed By: #### Lm HARRIS, 2131-12 #### [facility] ([id number]) [address] [place] [address] Creatinine [Mass/Vol] 0.73 mg/dL Normal 0.40-1.00 [facility] Comment on above: Result Comment: METH OD TRACEABLE TO IDMS STANDARD Performed By: #### Lm HARRIS, 2131-12 #### [facility] ([id number]) [address], [address] [place] [address] GFR/1.73 sq M.predicted among non-blacks MDRD (S/P/Bld) [Vol rate/Area] 85 mL/min/{1.73_m2} Normal >59 [facility] Comment on above: Result Comment: Reported eGFR is based on the CKD-EPI 2020 equation that does not use a race coefficient. Performed By: #### Lm HARRIS, 2131-12 #### [facility] ([id number]) [address] [place] [address] Glucose [Mass/Vol] 92 mg/dL Normal 65-99 [facility] Comment on above: Performed By: #### B KIMBERLY, 2131-12 #### [facility] ([id number]) [address], [address] [place] [address] Potassium [Moles/Vol] 3.4 mmol/L Low 3.5-5.0 [facility] Comment on above: Performed By: #### Lm HARRIS, 2131-12 #### [facility] ([id number]) [address], [address] [place] [address] Sodium [Moles/Vol] 141 mmol/L Normal 134-146 [facility] Comment on above: Performed By: #### Lm HARRIS, 2131-12 #### [facility] ([id number]) [address], [address] [place] [address] Urea nitrogen [Mass/Vol] 22 mg/dL Normal 5-27 [facility] Comment on above: Performed By: #### Lm HARRIS, 2131-12 #### [facility] ([id number]) [address] [place] [address] VITAMIN B12on 12-25-2023 Cobalamin (Vitamin B12) [Mass/Vol] pg/mL High 180-914 [facility] Comment on above: Performed By: #### Lm HARRIS, 2131-12 #### [facility] ([id number]) [address], [address] [place] [address] CBC AND AUTO DIFFon 12-21-19 24 ABSOLUTE BASOPHIL 0.0 X10E9/L Normal 0.0-0.2 [facility] Comment on above: Performed By: #### C HAYLEY CMP, 3040-3 #### [facility] ([id number]) [address] [place] [address], [place] [address] ABSOLUTE NEUTROPHIL 7.4 X10E9/L High 1.5-6.6 [facility] Comment on above: Performed By: #### C BCA CMP, 0-3 #### [facility] ([id number]) [address] [place] [address] Basophils/100 WBC (Bld) 0.3 % Normal [facility] Comment on above: Performed By: #### Renee HARDY CMP, 0-3 #### [facility] ([id number]) [address] [place] [address] Eosinophils (Bld) [#/Vol] 0.1 10*3/uL Normal 0.0-0.4 [facility] Comment on above: Performed By: #### Renee HARDY CMP, 3 #### [facility] ([id number]) [address] [place] [address] Eosinophils/100 WBC (Bld) 0.7 % Normal [facility] Comment on above: Performed By: #### Renee HARDY CMP, 3 #### [facility] ([id number]) [address] [place] [address] Erythrocyte distribution width (RBC) [Ratio] 15.3 % High 11.5-15.0 [facility] Comment on above: Performed By: #### Renee HARDY [facility], 3 #### [facility] ([id number]) [address] [place] [address] Hematocrit (Bld) [Volume fraction] 35.6 % Normal 35-47 [facility] Comment on above: Performed By: #### Renee HARDY CMP, 3 #### [facility] ([id number]) [address] [place] [address] Hemoglobin (Bld) [Mass/Vol] 11.8 g/dL Normal 11.7-15.5 [facility] Comment on above: Performed By: #### Renee HARDY CMP, 3039-3 #### [facility] ([id number]) [address] [place] [address] Lymphocytes (Bld) [#/Vol] 1.1 10*3/uL Normal 1.0-3.5 [facility] Comment on above: Performed By: #### Renee HARDY CMP, 3039-06 #### [facility] ([id number]) [address] [place] [address] Lymphocytes/100 WBC (Bld) 11.6 % Normal [facility] Comment on above: Performed By: #### Renee HARDY CMP, 3039-06 #### [facility] ([id number]) [address] [place] [address] MCH (RBC) [Entitic mass] 27.8 pg Normal 27-34 [facility] Comment on above: Performed By: #### Renee HARDY CMP, 3039-06 #### [facility] ([id number]) [address] [place] [address] MCHC (RBC) [Mass/Vol] 33.1 g/dL Normal 32-36 [facility] Comment on above: Performed By: #### Renee HARDY CMP, 3039-06 #### [facility] ([id number]) [address] [place] [address] MCV (RBC) [Entitic vol] 84 fL Normal 80-100 [facility] Comment on above: Performed By: #### Renee HARDY CMP, 3039-06 #### [facility] ([id number]) [address] [place] [address] Monocytes (Bld) [#/Vol] 0.6 10*3/uL Normal 0-0.9 [facility] Comment on above: Performed By: #### Renee HARDY CMP, 3039-06 #### [facility] ([id number]) [address] [place] [address] Monocytes/100 WBC (Bld) 6.4 % Normal [facility] Comment on above: Performed By: #### Renee HARDY CMP, 3039-3 #### [facility] ([id number]) [address] [place] [address] Neutrophils/100 WBC (Bld) 81.0 % Normal [facility] Comment on above: Performed By: #### Renee HARDY CMP, 3039-3 #### [facility] ([id number]) [address] [place] [address] Platelet mean volume (Bld) [Entitic vol] 8.9 fL Normal 7-12 [facility] Comment on above: Performed By: #### Renee HARDY CMP, 3 #### [facility] ([id number]) [address] [place] [address] Platelets (Bld) [#/Vol] 255 10*3/uL Normal 150-450 [facility] Comment on above: Performed By: #### Renee HARDY CMP, 3 #### [facility] ([id number]) [address] [place] [address] RBC COUNT 4.24 X10E12/L Normal 3.80-5.20 [facility] Comment on above: Performed By: #### Renee HARDY CMP, 3 #### [facility] ([id number]) [address] [place] [address] WBC (Bld) [#/Vol] 9.1 10*3/uL Normal 4.0-11.0 [facility] Comment on above: Performed By: #### Renee HARDY, CMP, 3039-3 #### [facility] ([id number]) [address] [place] [address] COMPREHENSIVE METABOLIC PANE Ulices 2023 Albumin [Mass/Vol] 4.2 g/dL Normal 3.2-5.3 [facility] Comment on above: Performed By: #### Renee HARDY CMP, 3039-3 #### [facility] ([id number]) [address] [place] [address] ALP [Catalytic activity/Vol] 63 U/L Normal 39-130 [facility] Comment on above: Performed By: #### C BCA, CMP, 3039-3 #### [facility] ([id number]) [address] [place] [address] ALT [Catalytic activity/Vol] 14 U/L Normal 0-31 [facility] Comment on above: Performed By: #### C BCA, CMP, 3039-3 #### [facility] ([id number]) [address] [place] [address] Anion gap [Moles/Vol] 7 mmol/L Normal 5-15 [facility] Comment on above: Performed By: #### C BCA, CMP, 3 #### [facility] ([id number]) [address] [place] [address] AST [Catalytic activity/Vol] 20 U/L Normal 0-41 [facility] Comment on above: Performed By: #### C BCA, CMP, 3 #### [facility] ([id number]) [address] [place] [address] Bilirubin [Mass/Vol] 0.5 mg/dL Normal 0.3-1.2 [facility] Comment on above: Performed By: #### C BCA, CMP, 3039-3 #### [facility] ([id number]) [address] [place] [address] Calcium [Mass/Vol] 8.5 mg/dL Normal 8.5-10.5 [facility] Comment on above: Performed By: #### C BCA, CMP, 3039-3 #### [facility] ([id number]) [address] [place] [address] Chloride [Moles/Vol] 105 mmol/L Normal 98-109 [facility] Comment on above: Performed By: #### C TANNER HARDY, 3039-3 #### [facility] ([id number]) [address] [place] [address] CO2 [Moles/Vol] 22 mmol/L Normal 22-32 [facility] Comment on above: Performed By: #### C TANNER HARDY, 3039-3 #### [facility] ([id number]) [address] [place] [address] Creatinine [Mass/Vol] 0.64 mg/dL Normal 0.40-1.00 [facility] Comment on above: Result Comment: METH OD TRACEABLE TO IDMS STANDARD Performed By: #### C TANNER HARDY, 3 #### [facility] ([id number]) [address] [place] [address]698 eGFR (CKD-EPI) NON-RACE DEPENDENT >90 Normal >59 [facility] Comment on above: Result Comment: Reported eGFR is based on the CKD-EPI 2020 equation that does not use a race coefficient. Performed By: #### C TANNER HARDY, 3 #### [facility] ([id number]) [address] [place] [address] Glucose [Mass/Vol] 123 mg/dL High 65-99 [facility] Comment on above: Performed By: #### C TANNER HARDY, 3 #### [facility] ([id number]) [address] [place] [address] Potassium [Moles/Vol] 3.8 mmol/L Normal 3.5-5.0 [facility] Comment on above: Performed By: #### C TANNER HARDY, 3039-3 #### [facility] ([id number]) [address] [place] [address] 00898 Protein [Mass/Vol] 7.3 g/dL Normal 6.0-8.0 [facility] Comment on above: Performed By: #### C TANNER HARDY, 3040-3 #### [facility] ([id number]) [address] [place] [address]2637 Sodium [Moles/Vol] 134 mmol/L Normal 134-146 [facility] Comment on above: Performed By: #### C TANNER HARDY, 3040-3 #### [facility] ([id number]) [address] [place] [address]64 Urea nitrogen [Mass/Vol] 18 mg/dL Normal 5-27 [facility] Comment on above: Performed By: #### C TANNER HARDY, 3040-3 #### [facility] ([id number]) [address] [place] [address]90 LIPASEon 2023 Lipase [Catalytic activity/Vol] 26 U/L Normal 17-40 [facility] Comment on above: Performed By: #### Renee HARDY [facility], 3040-3 #### [facility] ([id number]) [address] [place] [address]7900 SARS/FLU A+B/RSV by NAAT/Mol ecularon 2023 SARS/FLU [...] operators who are performing tests using either AtriCure or Favim systems and is limited to laboratories that [...] repeat. Fact Sheet for Healthcare Providers: https://www.fda.gov/me yg/315319/download Fact Sheet for Patients: https://www.fda.gov/me yg/790651/download Normal [facility] Comment on above: Performed By: #### C OVFLR #### [facility] ([id number]) [address] [place] [address]153 URN MACROSCOPIC NURon 2023 BILIRUBIN STUART Negative Normal NEG [facility] Comment on above: Performed By: #### N UM #### [facility] ([id number]) [address] [place] [address]236 BLOOD/HGB STUART Small Abnormal NEG [facility] Comment on above: Performed By: #### N UM #### [facility] ([id number]) [address] [place] [address]29 GLUCOSE STUART Negative Normal NEG [facility] Comment on above: Performed By: #### N UM #### [facility] ([id number]) [address] [place] [address] [place] [address] KETONES STUART Trace Abnormal NEG [facility] Comment on above: Performed By: #### N UM #### [facility] ([id number]) [address] [place] [address] 63359 LEUKOCYTE ESTERASE STUART Trace Abnormal NEG [facility] Comment on above: Performed By: #### N UM #### [facility] ([id number]) [address] [place] [address]756 NITRITE STUART Negative Normal NEG [facility] Comment on above: Performed By: #### N UM #### [facility] ([id number]) [address] [place] [address] 17762 PH STUART 5.5 Normal 5.0-8.5 [facility] Comment on above: Performed By: #### N UM #### [facility] ([id number]) [address] [place] [address] 49667 PROTEIN STUART Negative Normal NEG [facility] Comment on above: Performed By: #### N UM #### [facility] ([id number]) [address] [place] [address] [place] [address] SPECIFIC GRAVITY STUART 1.015 Normal 1.003-1.035 [facility] Comment on above: Performed By: #### N UM #### [facility] ([id number]) [address] [place] [address] [place] [address] UROBILINOGEN STUART 0.2 eu/dL Normal <1.1 [facility] Comment on above: Performed By: #### N UM #### [facility] ([id number]) [address] [place] [address] [place] [address] $ Arthrocentesison 4 Sangeetha Quick DO 07/25/2023 [...] signs reviewed and stable MANUALLY TRANSCRIBED RESULTS [facility] Comprehensive metabolic pane ulices 05-30-2023 Albumin [Mass/Vol] 4.3 g/dL 3.2 - 5.3 g/dL [facility] ALP [Catalytic activity/Vol] 63 U/L 39 - 130 U/L [facility] ALT No additional P-5'-P [Catalytic activity/Vol] 15 U/L 0 - 31 U/L [facility] Anion gap [Moles/Vol] 6 mmol/L 5 - 15 mmol/L [facility] AST [Catalytic activity/Vol] 15 U/L 0 - 41 U/L [facility] Bilirubin [Mass/Vol] 0.3 mg/dL 0.3 - 1 .2 mg/dL [facility] Calcium [Mass/Vol] 9.1 mg/dL 8.5 - 10. 5 mg/dL [facility] Chloride [Moles/Vol] 105 mmol/L 98 - 10 9 mmol/L [facility] CO2 [Moles/Vol] 31 mmol/L 22 - 32 mmol/L [facility] Creatinine [Mass/Vol] 0.65 mg/dL 0.40 - 1.00 mg/dL [facility] Comment on above: METHOD TRACEABLE TO [facility] STANDARD eGFR (CKD-EPI)non-race dependent - PINF [facility] Comment on above: Reported eGFR is based on the CKD-EPI 2020 equation that does not use a race coefficient. Glucose [Mass/Vol] 101 mg/dL High 65 - 99 mg/dL [facility] Potassium [Moles/Vol] 4.4 mmol/L 3.5 - 5.0 mmol/L [facility] Protein [Mass/Vol] 6.9 g/dL 6.0 - 8.0 g/dL [facility] Sodium [Moles/Vol] 142 mmol/L 134 - 146 mmol/L [facility] Urea nitrogen [Mass/Vol] 18 mg/dL 5 - 27 mg/dL [facility] Lipid 1996 panelon 4 Cholesterol [Mass/Vol] 140 mg/dL Low 150 - 200 mg/dL [facility] Cholesterol in HDL [Mass/Vol] 55 mg/dL 39 - PINF mg/dL [facility] Comment on above: HDL <40 mg/dL - High Risk HDL > or = 40mg/dL- Desirable HDL >60 mg/dL - Negative Risk Cholesterol in LDL [Mass/Vol] 69 mg/dL NINF - 130 mg/dL [facility] Comment on above: LDL <100 mg/dL - Desirable LDL >160 mg/dL - High Risk Cholesterol in VLDL [Mass/Vol] 16 mg/dL 0 - 30 mg/dL [facility] Cholesterol.total/Ch olesterol in HDL [Mass ratio] 2.5 {ratio} 1.0 - 5.0 [facility] Triglyceride [Mass/Vol] 82 mg/dL 27 - 150 mg/dL [facility] No Panel Informationon 05-30 Interpretation and review of laboratory results Abnormal [facility] Thyroid profile includes TSH FT4on 05-30-2023 Free T4 [Mass/Vol] 0.92 ng/dL 0.61 - 1. 60 ng/dL [facility] TSH Qn 0.95 m[IU]/L [facility] MRI SHOULDER LT WO CONon MRI [...] of articular cartilage. Electronically authenticated by: DL JORGENSEN Date: 2022-05-18 09:45 Normal [facility] COMPREHENSIVE METABOLIC PANE [place] 08-29-2021 Albumin [Mass/Vol] 4.0 g/dL Normal 3.6-5.1 [facility] Comment on above: Performed By: #### 7 600, 927, 45390 #### [facility] [place] [address] As400 Developer: Finn Akins MD Albumin/Globulin [Mass ratio] 1.9 {ratio} Normal 1.0-2.5 [facility] Comment on above: Performed By: #### 7 600, 927, 47049 #### [facility] [place] [address] As400 Developer: Finn Akins MD ALP [Catalytic activity/Vol] 56 U/L Normal 37-153 [facility] Comment on above: Performed By: #### 7 600, 927, 09874 #### [facility] [place] [address] As400 Developer: Finn Akins MD ALT [Catalytic activity/Vol] 18 U/L Normal 6-29 [facility] Comment on above: Performed By: #### 7 600, 927, 12157 #### [facility] [place] [address] As400 Developer: Finn Akins MD AST [Catalytic activity/Vol] 18 U/L Normal 10-35 [facility] Comment on above: Performed By: #### 7 600, 927, 43064 #### [facility] [place] [address] As400 Developer: Finn Akins MD Bilirubin [Mass/Vol] 0.4 mg/dL Normal 0.2-1.2 [facility] Comment on above: Performed By: #### 7 600, 927, 50776 #### [facility] [place] [address] As400 Developer: Finn Akins MD BUN/CREATININE RATIO NOT APPLICABLE Normal 6-22 [facility] Comment on above: Performed By: #### 7 600, 927, 96474 #### [facility] [address], [address] [place] [address] As400 Developer: Finn Akins MD Calcium [Mass/Vol] 8.8 mg/dL Normal 8.6-10.4 [facility] Comment on above: Performed By: #### 7 600, 927, 31964 #### [facility] of [address], [address] [place] [address] As400 Developer: Finn Akins MD Chloride [Moles/Vol] 106 mmol/L Normal 98-110 [facility] Comment on above: Performed By: #### 7 600, 927, 17676 #### [facility] [address], [address] [place] [address] As400 Developer: Finn Akins MD CO2 [Moles/Vol] 30 mmol/L Normal 20-32 [facility] Comment on above: Performed By: #### 7 600, 927, 13094 #### [facility] [address], [address] [place] [address] As400 Developer: Finn Akins MD Creatinine [Mass/Vol] 0.67 mg/dL Normal 0.60-0.93 [facility] Comment on above: Result Comment: For patients >49 years of age, the reference limit for Creatinine is approximately 13% higher for people identified as -[place]. Performed By: #### 7 600, 927, 26370 #### [facility] [address], [address] [place] [address] As400 Developer: Finn Akins MD eGFR NON-AFR. BRITISH 87 mL/min/1.73m2 Normal > OR = 60 [facility] Comment on above: Performed By: #### 7 600, 927, 45887 #### [facility] [address], [address] [place] [address] As400 Developer: Finn Akins MD GFR/1.73 sq M.predicted among blacks MDRD (S/P/Bld) [Vol rate/Area] 101 mL/min/{1.73_m2} Normal > OR = 60 [facility] Comment on above: Performed By: #### 7 600, 927, 76973 #### [facility] [place] [address] As400 Developer: Finn Akins MD Globulin (S) [Mass/Vol] 2.1 g/dL Normal 1.9-3.7 [facility] Comment on above: Performed By: #### 7 600, 927, 67185 #### [facility] [place] [address] As400 Developer: Finn Akins MD Glucose [Mass/Vol] 96 mg/dL Normal 65-99 [facility] Comment on above: Result Comment: Fasting reference interval Performed By: #### 7 600, 927, 76305 #### [facility] [place] [address] As400 Developer: Finn Akins MD Potassium [Moles/Vol] 3.9 mmol/L Normal 3.5-5.3 [facility] Comment on above: Performed By: #### 7 600, 927, 66606 #### [facility] [place] [address] As400 Developer: Finn Akins MD Protein [Mass/Vol] 6.1 g/dL Normal 6.1-8.1 [facility] Comment on above: Performed By: #### 7 600, 927, 89016 #### [facility] [place] [address] As400 Developer: Finn Akins MD Sodium [Moles/Vol] 143 mmol/L Normal 135-146 [facility] Comment on above: Performed By: #### 7 600, 927, 10964 #### [facility] [place] [address] As400 Developer: Finn Akins MD Urea nitrogen [Mass/Vol] 17 mg/dL Normal 7-25 [facility] Comment on above: Performed By: #### 7 600, 927, 71329 #### [facility] [address], [address] [place] [address] As400 Developer: Finn Akins MD LIPID PANEL, [facility] 08-13 Cholesterol [Mass/Vol] 126 mg/dL Normal <200 [facility] Comment on above: Order Comment: FASTI NG:YES FASTING: YES Performed By: #### 7 600, 927, 21223 #### [facility] [address], [address] [place] [address] As400 Developer: Finn Akins MD Cholesterol in HDL [Mass/Vol] 46 mg/dL Low > OR = 50 [facility] Comment on above: Order Comment: FASTI NG:YES FASTING: YES Performed By: #### 7 600, 927, 16651 #### [facility] [address], [address] [place] [address] As400 Developer: Finn Akins MD Cholesterol in LDL [Mass/Vol] [...] LDL-C. Aguilar HOLCOMB et al. MCKAY. 2013;310(19): 3788-5997 (http://education.[employer] [place]/faq/ZEI378) Performed By: #### 7 600, 927, 30551 #### [facility] [address], [address] [place] [address] As400 Developer: Finn Akins MD Cholesterol.total/Ch olesterol in HDL [Mass ratio] 2.7 {ratio} Normal <5.0 [facility] Comment on above: Order Comment: FASTI NG:YES FASTING: YES Performed By: #### 7 600, 927, 28732 #### [facility] [place] [address] As400 Developer: Finn Akins MD NON HDL CHOLESTEROL 80 mg/dL (calc) Normal <130 [facility] Comment on above: Order Comment: FASTI NG:YES FASTING: YES Result Comment: For patients with diabetes plus 1 major ASCVD risk factor, treating to a non-HDL-C goal of <100 mg/dL (LDL-C of <70 mg/dL) is considered a therapeutic option. Performed By: #### 7 600, 927, 48496 #### [facility] [place] [address] As400 Developer: Finn Akins MD Triglyceride [Mass/Vol] 86 mg/dL Normal <150 [facility] Comment on above: Order Comment: FASTI NG:YES FASTING: YES Performed By: #### 7 600, 927, 18912 #### [facility] [place] [address] As400 Developer: Finn Akins MD VITAMIN B12on 08-29-2021 Cobalamin (Vitamin B12) [Mass/Vol] 184 pg/mL Low 200-1100 [facility] Comment on above: Performed By: #### 7 600, 927, 70268 #### [facility] [place] [address] As400 Developer: Finn Akins MD BASIC METABOLIC PANELon Calcium [Mass/Vol] 9.2 mg/dL Normal 8.6-10.4 [facility] Comment on above: Performed By: #### 9 27, 53615, 93445 #### [facility] [place] [address] As400 Developer: Finn Akins MD Chloride [Moles/Vol] 102 mmol/L Normal 98-110 [facility] Comment on above: Performed By: #### 9 27, 63625, 10562 #### [facility] [place] [address] As400 Developer: Finn Akins MD CO2 [Moles/Vol] 28 mmol/L Normal 20-32 [facility] Comment on above: Performed By: #### 01 09, 24734, 06780 #### [facility] [place] [address] As400 Developer: Finn Akins MD Creatinine [Mass/Vol] 0.56 mg/dL Low 0.60-0.93 [facility] Comment on above: Result Comment: For patients >49 years of age, the reference limit for Creatinine is approximately 13% higher for people identified as -[place]. Performed By: #### 01 09, 29524, 47719 #### [facility] [place] [address] As400 Developer: Finn Akins MD eGFR NON-AFR. BRITISH 93 mL/min/1.73m2 Normal > OR = 60 [facility] Comment on above: Performed By: #### 01 09, 46025, 97502 #### [facility] [place] [address] As400 Developer: Finn Akins MD GFR/1.73 sq M.predicted among blacks MDRD (S/P/Bld) [Vol rate/Area] 107 mL/min/{1.73_m2} Normal > OR = 60 [facility] Comment on above: Performed By: #### 01 09, 90313, 44182 #### [facility] [place] [address] As400 Developer: Finn Akins MD Glucose [Mass/Vol] 97 mg/dL Normal 65-99 [facility] Comment on above: Result Comment: Fasting reference interval Performed By: #### 01 09, 98696, 75523 #### [facility] [place] [address] As400 Developer: Finn Akins MD Potassium [Moles/Vol] 3.8 mmol/L Normal 3.5-5.3 [facility] Comment on above: Performed By: #### 01 09, 26411, 04722 #### [facility] of [address], [address] [place] [address] As400 Developer: Finn Akins MD Sodium [Moles/Vol] 140 mmol/L Normal 135-146 [facility] Comment on above: Performed By: #### 9 27, 14052, 41556 #### [facility] of [address], [address] [place] [address] As400 Developer: Finn Akins MD Urea nitrogen [Mass/Vol] 14 mg/dL Normal 7-25 [facility] Comment on above: Performed By: #### 9 , 62437, 25228 #### [facility] of [address], [address] [place] [address] As400 Developer: Finn Akins MD Urea nitrogen/Creatinine [Mass ratio] 25 mg/mg High 6-22 [facility] Comment on above: Performed By: #### 9 , 14639, 54666 #### [facility] of [address], [address] [place] [address] As400 Developer: Finn Akins MD TSH+FREE T4on 04-19-2021 Free T4 [Mass/Vol] 1.2 ng/dL Normal 0.8-1.8 [facility] Comment on above: Performed By: #### 9 27, 86094, 16331 #### [facility] [place] [address] As400 Developer: Finn Akins MD TSH Qn 0.55 m[IU]/L Normal 0.40-4.50 [facility] Comment on above: Performed By: #### 9 , 74503, 84369 #### [facility] [place] [address] As400 Developer: Finn Akins MD VITAMIN B12on 04-19-2021 Cobalamin (Vitamin B12) [Mass/Vol] 133 pg/mL Low 200-1100 [facility] Comment on above: Performed By: #### 9 , 07471, 55155 #### [facility] of [address], [address] [place] [id number] As400 Developer: Finn Akins MD Vital Signs Date Time Vital Sign Value Performing Clinician Facility 11-02-2024 16:15-0400 Body height 149.9 cm Sangeetha Quick DO Work Phone: [facility] 11-02-2024 16:15-0400 Body mass index (BMI) [Ratio] 29.84 kg/m2 Sangeetha Quick DO Work Phone: [facility] 11-02-2024 16:15-0400 Body temperature 98.2 [degF] Sangeetha Quick DO Work Phone: [facility] 11-02-2024 16:15-0400 Body weight 67.04 kg aSngeetha Quick DO Work Phone: [facility] 11-02-2024 16:15-0400 Diastolic blood pressure 82 mm[Hg] Sangeetha Quick DO Work Phone: [facility] 11-02-2024 16:15-0400 Heart rate 63 /min Sangeetha Quick DO Work Phone: [facility] 11-02-2024 16:15-0400 Respiratory rate 18 /min Sangeetha Quick DO Work Phone: [facility] 11-02-2024 16:15-0400 SaO2% (BldA) [Mass fraction] 99 % Sangeetha Quick DO Work Phone: [facility] 11-02-2024 16:15-0400 Systolic blood pressure 142 mm[Hg] Sangeetha Quick DO Work Phone: [facility] 08-18-2024 15:11-0400 Body height 149.9 cm Sangeetha Quick DO Work Phone: [facility] 08-18-2024 15:11-0400 Body mass index (BMI) [Ratio] 31.05 kg/m2 Sangeetha Quick DO Work Phone: [facility] 08-18-2024 15:11-0400 Body temperature 97.81 [degF] Sangeetha Dunbars DO Work Phone: [facility] 08-18-2024 15:11-0400 Body weight 69.76 kg Sangeetha Dunbars DO Work Phone: [facility] 08-18-2024 15:11-0400 Diastolic blood pressure 80 mm[Hg] Sangeetha Dunbars DO Work Phone: [facility] 08-18-2024 15:11-0400 Heart rate 78 /min Sangeetha Dunbars DO Work Phone: [facility] 08-18-2024 15:11-0400 Respiratory rate 20 /min Sangeetha Dunbars DO Work Phone: [facility] 08-18-2024 15:11-0400 SaO2% (BldA) [Mass fraction] 100 % Sangeetha Dunbars DO Work Phone: [facility] 08-18-2024 15:11-0400 Systolic blood pressure 140 mm[Hg] Sangeetha Dunbars DO Work Phone: [facility] 05-19-2024 14:32-0500 Body height 149.9 cm Sangeetha Dunbars DO Work Phone: [facility] 05-19-2024 14:32-0500 Body mass index (BMI) [Ratio] 30.13 kg/m2 Sangeetha Dunbars DO Work Phone: [facility] 05-19-2024 14:32-0500 Body temperature 98.49 [degF] Sangeetha Jiménezhas DO Work Phone: [facility] 05-19-2024 14:32-0500 Body weight 67.68 kg Sangeetha Jiménezhas DO Work Phone: [facility] 05-19-2024 14:32-0500 Diastolic blood pressure 78 mm[Hg] Sangeetha Jiménezhas DO Work Phone: [facility] 05-19-2024 14:32-0500 Heart rate 79 /min Sangeetha Quick DO Work Phone: [facility] 05-19-2024 14:32-0500 SaO2% (BldA) [Mass fraction] 97 % Sangeetha Quick DO Work Phone: [facility] 05-19-2024 14:32-0500 Systolic blood pressure 110 mm[Hg] Sangeetha Dunbars DO Work Phone: [facility] 02-27-2024 13:55-0500 Body height 149.9 cm Sangeetha Dunbars DO Work Phone: [facility] 02-27-2024 13:55-0500 Body mass index (BMI) [Ratio] 29.49 kg/m2 Sangeetha Dunbars DO Work Phone: [facility] 02-27-2024 13:55-0500 Body weight 66.22 kg Sangeetha Quick DO Work Phone: [facility] 02-27-2024 13:55-0500 Diastolic blood pressure 56 mm[Hg] Sangeetha Quick DO Work Phone: [facility] 02-27-2024 13:55-0500 Systolic blood pressure 107 mm[Hg] Sangeetha Quick DO Work Phone: [facility] 02-06-2024 14:17-0400 Body height 149.9 cm Pfo 4 [facility] 02-06-2024 14:17-0400 Body mass index (BMI) [Ratio] 29.63 kg/m2 Pfo 4 [facility] 02-06-2024 14:17-0400 Body temperature 98.2 [degF] Pfo 4 [facility] 02-06-2024 14:17-0400 Body weight 66.59 kg Pfo 4 [facility] 02-06-2024 14:17-0400 Diastolic blood pressure 56 mm[Hg] Pfo 4 [facility] 02-06-2024 14:17-0400 Heart rate 79 /min Pfo 4 [facility] 02-06-2024 14:17-0400 Respiratory rate 16 /min Pfo 4 [facility] 02-06-2024 14:17-0400 SaO2% (BldA) [Mass fraction] 99 % Pfo 4 [facility] 02-06-2024 14:17-0400 Systolic blood pressure 107 mm[Hg] Pfo 4 [facility] 01-20-2024 11:57-0400 Body height 149.9 cm Sangeetha Quick DO Work Phone: [facility] 01-20-2024 11:57-0400 Body mass index (BMI) [Ratio] 28.92 kg/m2 Sangeetha Dunbars DO Work Phone: [facility] 01-20-2024 11:57-0400 Body temperature 97.3 [degF] Sangeetha Manjinders DO Work Phone: [facility] 01-20-2024 11:57-0400 Body weight 64.95 kg Sangeetha Dunbars DO Work Phone: [facility] 01-20-2024 11:57-0400 Diastolic blood pressure 80 mm[Hg] Sangeetha Dunbars DO Work Phone: [facility] 01-20-2024 11:57-0400 Heart rate 65 /min Sangeetha Dunbars DO Work Phone: [facility] 01-20-2024 11:57-0400 Respiratory rate 18 /min Sangeetha Dunbars DO Work Phone: [facility] 01-20-2024 11:57-0400 SaO2% (BldA) [Mass fraction] 100 % Sangeetha Dunbars DO Work Phone: [facility] 01-20-2024 11:57-0400 Systolic blood pressure 150 mm[Hg] Sangeetha Jessywillis DO Work Phone: [facility] 12-24-2023 12:43-0400 Body height 149.9 cm Sangeetha Quick DO Work Phone: [facility] [employer] [facility] 12-24-2023 12:43-0400 Body mass index (BMI) [Ratio] 27.91 kg/m2 Sangeetha Quick DO Work Phone: [facility] [employer] [facility] 12-24-2023 12:43-0400 Body temperature 98.6 [degF] Sangeetha Quick DO Work Phone: [facility] 12-24-2023 12:43-0400 Body weight 62.69 kg Sangeetha Quick DO Work Phone: [facility] [employer] [facility] 12-24-2023 12:43-0400 Diastolic blood pressure 70 mm[Hg] Sangeetha Quick DO Work Phone: [facility] 12-24-2023 12:43-0400 Heart rate 83 /min Sangeetha Quick DO Work Phone: [facility] 12-24-2023 12:43-0400 SaO2% (BldA) [Mass fraction] 99 % Sangeetha Quick DO Work Phone: [facility] 12-24-2023 12:43-0400 Systolic blood pressure 120 mm[Hg] Sangeetha Quick DO Work Phone: [facility] 07-25-2023 10:52-0400 Body height 149.9 cm Sangeetha Quick DO Work Phone: [facility] 07-25-2023 10:52-0400 Body mass index (BMI) [Ratio] 30.98 kg/m2 Sangeetha Quick DO Work Phone: [facility] [employer] [facility] 07-25-2023 10:52-0400 Body temperature 99 [degF] Sangeetha Quick DO Work Phone: [facility] [employer] [facility] 07-25-2023 10:52-0400 Body weight 69.58 kg Sangeetha Quick DO Work Phone: [facility] 07-25-2023 10:52-0400 Diastolic blood pressure 72 mm[Hg] Sangeetha Dunbars DO Work Phone: [facility] [employer] [facility] 07-25-2023 10:52-0400 Heart rate 68 /min Sangeetha Dunbars DO Work Phone: [facility] [employer] 07-25-2023 10:52-0400 SaO2% (BldA) [Mass fraction] 98 % Sangeetha Dunbars DO Work Phone: [facility] [employer] [facility] 07-25-2023 10:52-0400 Systolic blood pressure 118 mm[Hg] Sangeetha Dunbars DO Work Phone: [facility] [employer] [facility] 07-01-2023 15:40-0400 Body height 149.9 cm Sangeetha Dunbars DO Work Phone: [facility] [employer] [facility] 07-01-2023 15:40-0400 Body mass index (BMI) [Ratio] 31.1 kg/m2 Sangeetha Dunbars DO Work Phone: [facility] 07-01-2023 15:40-0400 Body temperature 98.2 [degF] Sangeetha Dunbars DO Work Phone: [facility] 07-01-2023 15:40-0400 Body weight 69.85 kg Sangeetha Dunbars DO Work Phone: [facility] [employer] 07-01-2023 15:40-0400 Diastolic blood pressure 70 mm[Hg] Sangeetha Dunbars DO Work Phone: [facility] [employer] [facility] 07-01-2023 15:40-0400 Heart rate 87 /min Sangeetha Dunbars DO Work Phone: [facility] [employer] 07-01-2023 15:40-0400 SaO2% (BldA) [Mass fraction] 99 % Sangeetha Dunbars DO Work Phone: [facility] [employer] 07-01-2023 15:40-0400 Systolic blood pressure 136 mm[Hg] Sangeetha Dunbars DO Work Phone: [facility] [employer] [facility] 06-25-2023 11:23-0400 Body height 149.9 cm Sangeetha Quick DO Work Phone: [facility] [employer] 06-25-2023 11:23-0400 Body mass index (BMI) [Ratio] 31.06 kg/m2 Sangeetha Dunbars DO Work Phone: [facility] [employer] [facility] 06-25-2023 11:23-0400 Body temperature 98.29 [degF] Sangeetha Jiménezhas DO Work Phone: [facility] [employer] [facility] 06-25-2023 11:23-0400 Body weight 69.76 kg Sangeetha Dunbars DO Work Phone: [facility] [employer] [facility] 06-25-2023 11:23-0400 Diastolic blood pressure 70 mm[Hg] Sangeetha Dunbars DO Work Phone: [facility] [employer] [facility] 06-25-2023 11:23-0400 Heart rate 73 /min Sangeetha Dunbars DO Work Phone: [facility] [employer] [facility] 06-25-2023 11:23-0400 SaO2% (BldA) [Mass fraction] 97 % Sangeetha Dunbars DO Work Phone: [facility] [employer] [facility] 06-25-2023 11:23-0400 Systolic blood pressure 120 mm[Hg] Sangeetha Dunbars DO Work Phone: [facility] [employer] [facility] 05-30-2023 10:29-0500 Body height 149.9 cm Sangeetha Dunbars DO Work Phone: [facility] [employer] [facility] 05-30-2023 10:29-0500 Body mass index (BMI) [Ratio] 30.7 kg/m2 Sangeetha Dunbars DO Work Phone: [facility] [employer] [facility] 05-30-2023 10:29-0500 Body temperature 98.1 [degF] Sangeetha Dunbars DO Work Phone: [facility] [employer] [facility] 05-30-2023 10:29-0500 Body weight 68.95 kg Sangeetha Quick DO Work Phone: [facility] 05-30-2023 10:29-0500 Diastolic blood pressure 70 mm[Hg] [facility]etha Quick [facility] 05-30-2023 10:29-0500 Heart rate 71 /min Sangeetha Quick DO [facility] 05-30-2023 10:29-0500 SaO2% (BldA) [Mass fraction] 96 % Sangeetha Quick DO [facility] 05-30-2023 10:29-0500 Systolic blood pressure 120 mm[Hg] Sangeetha Quick DO Work Phone: [facility] [employer] Encounters Encounter Date Encounter Type Care Provider Facility Start: 11-18-2024 End: 11-18-2024 Refill Sangeetha Quick DO Work Phone: [facility] Comment on above: Cobalamin deficiency Start: 11-05-2024 End: 11-11-2024 Telephone encounter Salena Gandhi [facility] Start: 11-03-2024 End: 11-03-2024 ambulatory [facility] Start: 11-02-2024 End: 11-02-2024 Office outpatient visit 25 minutes Sangeetha Quick DO Work Phone: [facility] Comment on above: Gastroenteritis due to norovirus (Primary Dx); Degenerative lumbar spinal stenosis; Hiatal hernia; Lichen planus atrophicus Start: 11-02-2024 End: 11-02-2024 ambulatory [facility] Start: 10-26-2024 End: 10-26-2024 Telephone encounter Marcia Holder [facility] Comment on above: Er Follow-up Start: 10-23-2024 End: 10-23-2024 Emergency department patient visit [facility] Start: 10-21-2024 End: 10-21-2024 Bamboo flowsheet Jr. Angella Mckeon DO Work Phone: [facility] Start: 10-21-2024 End: 10-21-2024 Bamboo flowsheet JrTran Campos Stepanic DO Work Phone: [facility] Start: 10-21-2024 End: 10-21-2024 Office outpatient visit 25 minutes Jr. Angella Mckeon DO Work Phone: [facility] Comment on above: Acute pain of right shoulder (Primary Dx); Rotator cuff arthropathy, right Start: 10-21-2024 End: 10-21-2024 ambulatory TranANGELLA Not Available Start: 09-09-2024 End: 09-09-2024 Bamboo flowsheet JrTran Mckeon DO Work Phone: [facility] Start: 09-09-2024 End: 09-09-2024 Bamboo flowsheet Jr. Angella Mckeon DO Work Phone: [facility] Start: 09-09-2024 End: 09-09-2024 Office outpatient visit 25 minutes Jr. Angella Mckeon DO Work Phone: [facility] Comment on above: Acute pain of right shoulder (Primary Dx); Nontraumatic complete tear of right rotator cuff Start: 09-09-2024 End: 09-09-2024 ambulatory ANGELLA [place] Not Available Start: 08-30-2024 End: 08-30-2024 Refill Sangeetha Quick DO Work Phone: [facility] Comment on above: Hypothyroidism Start: 08-18-2024 End: 08-18-2024 Office outpatient visit 25 minutes Sangeetha Quick DO Work Phone: [facility] Comment on above: Hyperlipidemia, unsp ecified hyperlipidemia type (Primary Dx); Hypothyroidism, unspecified type; Elevated blood pressure reading; Cobalamin deficiency Start: 08-18-2024 End: 05-06-2025 ambulatory [facility] Start: 08-18-2024 End: 08-18-2024 ambulatory [facility] Start: 07-13-2024 End: 07-13-2024 ambulatory Delmer You MD Facility: [facility] Start: 06-09-2024 End: 06-09-2024 Refill Sangeetha Quick DO Work Phone: [facility] Comment on above: Hyperlipidemia, unsp ecified Start: 05-22-2024 End: 05-22-2024 ambulatory [facility] Start: 05-19-2024 End: 05-19-2024 [facility] Start: 05-19-2024 End: 05-19-2024 Office outpatient visit 25 minutes Sangeetah Gaston Abdelrahman DO [facility] Comment on above: Hypothyroidism, unsp ecified type (Primary Dx); Right foot pain; Vitamin D deficiency; Cobalamin deficiency; Lichen planus atrophicus Start: 05-19-2024 End: 05-19-2024 ambulatory [facility] Start: 02-27-2024 End: 02-27-2024 ambulatory [facility] Start: 02-27-2024 End: 02-27-2024 Patient encounter procedure Sangeetha Quick DO Work Phone: [facility] Medicine - Family Medicine Comment on above: Encounter for subseq uent annual wellness visit (AWV) in Medicare patient (Primary Dx) Start: 02-25-2024 End: 02-25-2024 Refill Sangeetha Quick DO [facility]: [facility] - [facility] Comment on above: Hypothyroidism; Deficiency of other specified B group vitamins; Vitamin D deficiency, unspecified; Hordeolum externum of right upper eyelid Start: 02-06-2024 End: 02-06-2024 ambulatory Pfo Infusion Chair 4 Alicia Kim [facility] Center - Medical Oncology Comment on above: Age-related osteopor osis without current pathological fracture (Primary Dx) Start: 02-05-2024 End: 02-05-2024 ambulatory [facility] Start: 02-03-2024 End: 02-03-2024 Telephone encounter Fatoumata Chacko [facility] Internal Medicine - Family Medicine Start: 01-22-2024 End: 01-22-2024 Telephone encounter Sangeetha Quick DO Work Phone: [facility] Internal Medicine - [facility] Start: 01-20-2024 End: 01-20-2024 Bamboo flowsheet Jr. Angella Mckeon DO Work Phone: [facility] Start: 01-20-2024 End: 01-20-2024 Bamboo flowsheet Jr. Angella Mckeon DO Work Phone: [facility] Start: 01-20-2024 End: 01-20-2024 ambulatory [facility] Start: 01-20-2024 End: 01-20-2024 Office outpatient visit 25 minutes Jr. Angella Mckeon DO Work Phone: [facility] Comment on above: Primary osteoarthrit is of left knee (Primary Dx) Hordeolum externum o f right upper eyelid (Primary Dx); Blepharitis of right upper eyelid, unspecified type; Age-related osteoporosis without current pathological fracture; Encounter for immunization Start: 01-20-2024 End: 01-20-2024 ambulatory ANGELLA PASTRANA Not Available Start: 01-07-2024 End: 01-07-2024 Bamboo flowsheet Kathryn Cagle ROTARY SHEAR OPERATOR Work Phone: [facility] Start: 01-07-2024 End: 01-07-2024 Bamboo flowsheet Kathryn Cagle ROTARY SHEAR OPERATOR Work Phone: [facility] Start: 01-07-2024 End: 01-07-2024 Office outpatient visit 10 minutes Kathryn Cagle ROTARY SHEAR OPERATOR Work Phone: [facility] Comment on above: Primary localized os teoarthritis of left knee (Primary Dx); Left knee pain, unspecified chronicity Start: 01-07-2024 End: 01-07-2024 ambulatory KATHRYN CAGLE Not Available Start: 12-26-2023 End: 12-26-2023 ambulatory [facility] Start: 12-25-2023 End: 12-25-2023 ambulatory [facility] Start: 12-24-2023 End: 12-24-2023 Office outpatient visit 25 minutes Sangeetha Quick DO Work Phone: [facility] Internal Medicine - Family Medicine Comment on above: Diarrhea, unspecifie d type (Primary Dx); Primary osteoarthritis of knees, bilateral; Vitamin D deficiency; Cobalamin deficiency; Age-related osteoporosis without current pathological fracture; Nausea and vomiting, unspecified vomiting type Start: 12-24-2023 End: 12-24-2023 ambulatory [facility] Start: 12-23-2023 End: 12-24-2023 Telephone encounter Marcia Holder [facility] Internal Medicine - Family Medicine Comment on above: Er Follow-up Start: 2023 End: 2023 Emergency department patient visit [facility] Start: 12-11-2023 End: 12-12-2023 Telephone encounter Dipika Sagastume [facility] Internal Medicine - Family Medicine Start: 08-21-2023 End: 08-23-2023 Telephone encounter Dipika Sagastume [facility] Internal Medicine - Family Medicine Start: 07-25-2023 End: 07-25-2023 Office outpatient visit 15 minutes Sangeetha Quick DO Work Phone: [facility] Internal Medicine - Family Medicine Comment on above: Osteoarthritis of le ft shoulder, unspecified osteoarthritis type (Primary Dx) Start: 07-01-2023 End: 07-01-2023 Office outpatient visit 25 minutes Sangeetha Quick DO Work Phone: [facility] Internal Medicine - Family Medicine Comment on above: 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, bilateral (Primary Dx); Osteoarthritis of left shoulder, unspecified osteoarthritis type; Immunization due Start: 06-25-2023 End: 06-25-2023 Office outpatient visit 25 minutes Sangeetha Quick DO Work Phone: [facility] Internal Medicine - Family Medicine Comment on above: Localized osteoarthr itis of left knee (Primary Dx) Start: 05-30-2023 End: 05-30-2023 Office outpatient visit 25 minutes Sangeetha Quick DO Work Phone: [facility] Internal Medicine - Family Medicine Comment [...] End: 12-15-[address] YINKA BARRAZA . Facility: Start: 09-07-2021 End: 09-08-[address] YINKA BARRAZA . Facility: Procedures Date Procedure Procedure Detail Performing Clinician Start: 11-02-2024 Adult depression scr eening assessment Sangeetha Quick DO Work Phone: Start: 10-21-2024 Arthrocentesis aspir &/inj major jt/bursa w/o us Jr. Angella Campos Stepanic DO Work Phone: Start: 09-09-2024 Arthrocentesis aspir &/inj major jt/bursa w/o us JrTran Campos Stepanic DO Work Phone: Start: 09-09-2024 Radex shoulder compl ete minimum 2 views JrTran Campos Stepanic DO Work Phone: Start: 08-18-2024 Adult depression scr eening assessment Sangeetha Quick DO Work Phone: Start: 05-19-2024 Adult depression scr eening assessment Sangeetha Dunbars DO Work Phone: Start: 02-27-2024 Adult depression scr eening assessment Sangeetha Quick DO Work Phone: Start: 01-20-2024 Adult depression scr eening assessment Sangeetha Quick DO Work Phone: Start: 01-07-2024 Radiologic examinati on knee 1/2 views Kathryn Cagle NP Work Phone: Start: 12-24-2023 Follow-up visit Follow-up SANGEETHA Alek ABDELRAHMAN Start: 12-24-2023 Adult depression scr eening assessment Sangeetha Dunbars DO Work Phone: Start: 07-25-2023 Arthrocentesis aspir &/inj major jt/bursa w/o us Sangeetha Quick DO Work Phone: Start: 07-25-2023 Adult depression scr eening assessment Sangeetha Quick DO Work Phone: Start: 07-01-2023 Adult depression scr eening assessment Sangeetha Quick DO Work Phone: Start: 06-25-2023 Adult depression scr eening assessment Sangeetha Quick DO Work Phone: Start: 05-30-2023 Adult depression scr eening assessment Sangeetha Quick DO Work Phone: Plan of Treatment Date Care Activity Detail Author Start: 11-02-2025 Depression Screening Depression Scre ening [facility] Start: 11-02-2025 Fall Risk Screening Fall Risk Screen ing [facility] [employer] [facility] Start: 11-02-2025 Tobacco Screening Tobacco Screening [facility] Start: 08-18-2025 Depression Screening Depression Scre ening [facility] Start: 08-18-2025 Fall Risk Screening Fall Risk Screen ing [facility] Start: 08-18-2025 Tobacco Screening Tobacco Screening [facility] Start: 05-19-2025 Depression Screening Depression Scre ening [facility] Start: 05-19-2025 Fall Risk Screening Fall Risk Screen ing [facility] Start: 05-19-2025 Tobacco Screening Tobacco Screening [facility] [employer] Start: 03-02-2025 End: 03-02-2025 Patient encounter procedure 03/02/2025 2:20 PM EST Office Visit [facility] Internal Medicine - Family Medicine [address] [place] [place] [address] [facility] Internal Medicine - Family Medicine Start: 02-26-2025 Depression Screening Depression Scre ening [facility] Start: 02-26-2025 Fall Risk Screening Fall Risk Screen ing [facility] [employer] [facility] Start: 02-26-2025 Medicare Annual Well ness Visit Medicare Annual Wellness Visit [facility] Start: 01-19-2025 Adult BMI Screening Adult BMI Screen ing [facility] [employer] [facility] Start: 01-19-2025 Depression Screening Depression Scre ening [facility] Start: 01-19-2025 Fall Risk Screening Fall Risk Screen ing [facility] [employer] [facility] Start: 01-19-2025 Tobacco Screening Tobacco Screening [facility] Start: 12-23-2024 Adult BMI Screening Adult BMI Screen ing [facility] Start: 12-23-2024 Depression Screening Depression Scre ening [facility] Start: 12-23-2024 Fall Risk Screening Fall Risk Screen ing [facility] Start: 12-23-2024 Tobacco Screening Tobacco Screening [facility] Start: 12-16-2024 End: 12-16-2024 Patient encounter procedure 12/16/2024 10:30 AM EDT Office Visit [facility] [address] [place] [id number] Jr. Angella Mckeon, DO [address] [place] [address] [facility] Start: 12-14-2024 Influenza vaccination P [facility] Start: 11-02-2024 End: 11-02-2025 XR Lumbar spine 2 or 3 Views X-ray spine lumbar 2 or 3 views Imaging Routine Degenerative lumbar spinal stenosis Expected: 11/02/2024, Expires: 11/02/2025 [facility] Work Phone: Comment on above: Expected: 11/02/2024 , Expires: 11/02/2025 Start: 10-21-2024 End: 10-21-2024 Patient encounter procedure [facility] Comment on above: Arrived Start: 09-09-2024 End: 09-09-2024 Patient encounter procedure 09/09/2024 9:30 AM EDT Office Visit [facility] [address] [place] [phone] Jr. Angella Mckeon, DO [address] [place] [address] Acute pain of right shoulder [facility] Comment on above: Acute pain of right shoulder Start: 07-24-2024 Adult BMI Screening Adult BMI Screen ing [facility] Start: 07-24-2024 Depression Screening Depression Scre ening [facility] Start: 07-24-2024 Fall Risk Screening Fall Risk Screen ing [facility] Start: 07-24-2024 Tobacco Screening Tobacco Screening [facility] Start: 07-20-2024 COVID-19 Vaccine ( season) COVID-19 Vaccine () [facility] Start: 06-30-2024 Adult BMI Screening Adult BMI Screen ing [facility] Start: 06-30-2024 Depression Screening Depression Scre ening [facility] Start: 06-30-2024 Fall Risk Screening Fall Risk Screen ing [facility] Start: 06-30-2024 Tobacco Screening Tobacco Screening [facility] Start: 06-24-2024 Adult BMI Screening Adult BMI Screen ing [facility] Start: 06-24-2024 Depression Screening Depression Scre ening [facility] Start: 06-24-2024 Fall Risk Screening Fall Risk Screen ing [facility] Start: 06-24-2024 Tobacco Screening Tobacco Screening [facility] Start: 05-30-2024 Adult BMI Screening Adult BMI Screen ing [facility] Start: 05-30-2024 Depression Screening Depression Scre ening [facility] Start: 05-30-2024 Fall Risk Screening Fall Risk Screen ing [facility] Start: 05-30-2024 Tobacco Screening Tobacco Screening [facility] Start: 05-22-2024 COVID-19 Vaccine ( season) COVID-19 Vaccine () [facility] Start: 05-21-2024 DTaP,Tdap and Td Vaccines (2 - Td or Tdap) DTaP,Tdap and Td Vaccines (2 - Td or Tdap) [facility] Start: 05-19-2024 End: 05-19-2025 XR Foot - right 3 Views X-ray foot right minimum 3 views Imaging Routine Right foot pain Expected: 05/19/2024, Expires: 05/19/2025 [facility] Work Phone: Comment on above: Expected: 05/19/2024 , Expires: 05/19/2025 Start: 03-19-2024 End: 03-19-2024 Patient encounter procedure 03/19/2024 4:15 PM EST Office Visit [facility] Internal Medicine - Family Medicine [address] [place] [phone] Sangeetha Quick, DO [address] [place] [address] [facility] Internal [facility] - [facility] Start: 03-16-2024 End: 03-16-2024 Patient encounter procedure 03/16/2024 10:00 AM EST Office Visit [facility] [address] [place] [id number] Kathryn Cagle, SALLIE [address] [place] [address] [facility] Start: 02-27-2024 End: 02-27-2024 Patient encounter procedure 02/27/2024 1:40 PM EST Office Visit [facility] Internal Medicine - [facility] [address] [place] [phone] [facility] Internal [facility] Start: 01-20-2024 End: 01-20-2024 Patient encounter procedure [facility] Comment on above: Arrived Start: 01-07-2024 End: 01-07-2024 Patient encounter procedure 01/07/2024 10:30 AM EDT Office Visit [facility] [address] [place] [phone] Kathryn Cagle, SALLIE [address] [place] [address] Arrived [facility] Comment on above: Arrived Start: 12-26-2023 End: 12-26-2023 Patient encounter procedure 12/26/2023 1:45 PM EDT Appointment [facility] - Mammogram DEXA [address] [place] [address] Sangeetha Quick, DO [address] [place] [address] [facility] - Mammogram [facility]EXA Start: 12-24-2023 End: 12-23-2024 GI Panel(stool pathogen panel) GI Panel(stool pathogen panel) Lab Routine Diarrhea, unspecified type Expected: 12/24/2023, Expires: 12/23/2024 [facility] Work Phone: Comment on above: Expected: 12/24/2023 , Expires: 12/23/2024 Start: 12-24-2023 End: 12-24-2023 Patient encounter procedure 12/24/2023 1:00 PM EDT [facility] [address] [place] [address] Sangeetha Quick, [address] [facility] [place] [address] [facility] Internal Medicine - Family Medicine Start: 12-15-2023 COVID-19 Vaccine ( season) COVID-19 Vaccine () [facility] Start: 12-15-2023 Influenza vaccination [facility] Start: 12-03-2023 End: 12-03-2023 Patient encounter procedure 12/03/2023 2:00 PM EDT [facility] - [facility] [address] [place] [address] [facility] Internal Medicine - Family Medicine Start: 11-28-2023 Medicare Annual Well ness Visit Medicare Annual Wellness Visit [facility] Start: 07-14-2023 Influenza vaccination Influenza Vacc ine [facility] Comment on above: Postponed from 12/14 (Vaccine Not Available) Start: 06-25-2023 End: 06-24-2024 XR Knee - left 3 Views X-ray knee left 3 views Imaging Routine Localized osteoarthritis of left knee Expected: 06/25/2023, Expires: 06/24/2024 [facility] Work Phone: Comment on above: Expected: 06/25/2023 , Expires: 06/24/2024 Start: 12-14-2022 COVID-19 Vaccine ( season) COVID-19 Vaccine ( season) [facility] Start: 12-14-2022 Influenza vaccination Influenza Vacc ine [facility] Start: 12-20-1997 Administration of varicella zoster vaccine Zoster (Shingles) Vaccine (1 of 2) [facility] Start: 12-20-1965 Adult BMI Follow Up Plan Adult BMI Follow Up Plan [facility] End: 12-23-2024 Basic metabolic 2000 panel - Serum or Plasma Basic Metabolic Panel Lab Routine Diarrhea, unspecified type 1 Occurrences starting 12/24/2023 until 12/23/2024 [facility] Comment on above: 1 Occurrences starti ng 12/24/2023 until 12/23/2024 End: 05-19-2025 CBC W Auto Differential panel - Blood CBC auto differential Lab Routine Hypothyroidism, unspecified type 1 Occurrences starting 05/19/2024 until 05/19/2025 [facility] Comment on above: 1 Occurrences starti ng 05/19/2024 until 05/19/2025 End: 05-19-2025 Comprehensive metabolic 2000 panel - Serum or Plasma Comprehensive metabolic panel Lab Routine Hypothyroidism, unspecified type 1 Occurrences starting 05/19/2024 until 05/19/2025 [facility] Comment on above: 1 Occurrences starti ng 05/19/2024 until 05/19/2025 End: 08-18-2025 Comprehensive metabolic 2000 panel - Serum or Plasma Comprehensive metabolic panel Lab Routine Hyperlipidemia, unspecified hyperlipidemia type 1 Occurrences starting 08/18/2024 until 08/18/2025 [employer] Work Phone: Comment on above: 1 Occurrences starti ng 08/18/2024 until 08/18/2025 Comprehensive metabo lic 2000 panel - Serum or Plasma Comprehensive metabolic panel Lab Routine Hyperlipidemia, unspecified hyperlipidemia type 08/18/2024 3:42 PM EDT [facility] End: 05-19-2025 Cyanocobalamin vitamin b-12 Vitamin B12 Lab Routine Cobalamin deficiency 1 Occurrences starting 05/19/2024 until 05/19/2025 [facility] Comment on above: 1 Occurrences starti ng 05/19/2024 until 05/19/2025 End: 12-23-2024 Cyanocobalamin vitamin b-12 Vitamin B12 Lab Routine Cobalamin deficiency 1 Occurrences starting 12/24/2023 until 12/23/2024 [facility] [employer] [facility] Comment on above: 1 Occurrences starti ng 12/24/2023 until 12/23/2024 End: 08-18-2025 Lipid 1996 panel - Serum or Plasma Lipid profile Lab Routine Hyperlipidemia, unspecified hyperlipidemia type 1 Occurrences starting 08/18/2024 until 08/18/2025 [facility] [employer] [facility] Comment on above: 1 Occurrences starti ng 08/18/2024 until 08/18/2025 Lipid 1996 panel - S annette or Plasma Lipid profile Lab Routine Hyperlipidemia, unspecified hyperlipidemia type 08/18/2024 3:42 PM EDT [facility] End: 05-19-2025 Thyroid profile includes TSH FT4 Thyroid profile includes TSH FT4 Lab Routine Hypothyroidism, unspecified type 1 Occurrences starting 05/19/2024 until 05/19/2025 [facility] Comment on above: 1 Occurrences starti ng 05/19/2024 until 05/19/2025 End: 05-19-2025 Vitamin D 25 hydroxy Vitamin D 25 hydroxy Lab Routine Vitamin D deficiency 1 Occurrences starting 05/19/2024 until 05/19/2025 [facility] Comment on above: 1 Occurrences starti ng 05/19/2024 until 05/19/2025 Immunizations Immunization Date Immunization Notes Care Provider Fa [facility] 01-20-2024 Covid-19, Mrna, Lnp- s, Pf,christian-sucrose,30 Mcg/0.3ml Sangeetha Quick DO Work Phone: [facility] 01-20-2024 Seasonal trivalent influenza vaccine, adjuvanted, preservative free Sangeetha Quick DO Work Phone: [facility] 01-20-2024 Immunization, In Clinic,; Translations: [Drug or medicament (substance)] Sangeetha Quick DO Work Phone: [facility] 01-20-2024 influenza virus vacc ine, unspecified formulation Sangeetha Quick DO Work Phone: [facility] [employer] [facility] 01-22-2022 influenza virus vacc ine, unspecified formulation Kathryn Cagle NP Work Phone: [facility] 04-24-2017 Influenza, injectabl e, Madin Ammy Canine Kidney, preservative free, quadrivalent Sangeetha Yuhas DO Work Phone: [facility] 04-24-2017 influenza virus vacc ine, unspecified formulation Sangeetha Yuhas DO Work Phone: [facility] 03-15-2016 pneumococcal polysaccharide vaccine, 23 valent Sangeetha Yuhas DO Work Phone: [facility] 01-11-2016 influenza, seasonal, injectable, preservative free Sangeetha Yuhas DO Work Phone: [facility] 01-05-2015 influenza, seasonal, injectable, preservative free Sangeetha Yuhas DO Work Phone: [facility] 01-05-2015 pneumococcal conjuga te vaccine, 13 valent Sangeetha Yuhas DO Work Phone: [facility] 05-21-2014 pneumococcal polysaccharide vaccine, 23 valent Sangeetha Yuhas DO Work Phone: [facility] 05-21-2014 tetanus toxoid, redu mary diphtheria toxoid, and acellular pertussis vaccine, adsorbed Sangeetha Yuhas DO Work Phone: [facility] Payers Date Payer Category Payer Managed Care Other (unspecified) [facility] [id number] 2021 Commercial Managed C are - POS [employer] [id number] 2021 Private Health Insurance [id number] .[id number] 2010 Medicare [id number] .[id number] 1959 Medicare [id number] 1959 Private Health Insurance CLI [id number] 1947 Unknown [id number] 2.16.840.1.599046.3.579 .2.593 1947 Unknown [id number] 2.16.840.1.543853.3.579 .2.593 1947 Unknown [id number] 2.16.840.1.830284.3.579 .2.593 1947 Unknown [id number] 2.16.840.1.314397.3.579 .2.593 1947 Unknown [id number] 2.16.840.1.972885.3.579 .2.593 1947 Unknown [id number] 2.16.840.1.216767.3.579 .2.593 1947 Unknown [id number] 2.16.840.1.465467.3.579 .2.593 1947 Unknown [id number] 2.16.840.1.673770.3.579 .2.593 1947 Unknown [id number] 2.16.840.1.864191.3.579 .2.593 1947 Unknown [id number] 2.16.840.1.774921.3.579 .2.593 1947 Unknown [id number] 2.16.840.1.775389.3.579 .2.593 1947 Unknown [id number] 2.16.840.1.650904.3.579 .2.593 1947 Unknown [id number] 2.16.840.1.682866.3.579 .2.593 1947 Unknown [id number] 2.16.840.1.706786.3.579 .2.593 1947 Unknown [id number] 2.16.840.1.763972.3.579 .2.593 1947 Unknown [id number] 2.16.840.1.278802.3.579 .2.196 1947 Unknown [id number] 2.16.840.1.989069.3.579 .2.1286 1947 Unknown [id number] 2.16.840.1.291256.3.579 .2.1286 1947 Unknown [id number] 2.16.840.1.764515.3.579 .2.1259 1947 Unknown [id number] 2.16.840.1.972579.3.579 .2.1259 1947 Unknown [id number] 2.16.840.1.068378.3.579 .2.1259 1947 Unknown [id number] 2.16.840.1.467881.3.579 .2.1259 1947 Unknown [id number] 2.16.840.1.414348.3.579 .2.1259 1947 Unknown [id number] 2.16.840.1.454011.3.579 .2.1259 1947 Unknown [id number] 2.16.840.1.594230.3.579 .2.1285 1947 Unknown [id number] 2.16.840.1.183788.3.579 .2.1285 1947 Unknown [id number] 2.16.840.1.381787.3.579 .2.1285 1947 Unknown [id number] 2.16840.1.095921.3.579 .2.1285 1947 Unknown [id number] 2.840.1.585639.3.579 .2.1285 1947 Unknown [id number] 2.840.1.262039.3.579 .2.1285 1947 Unknown [id number] 2.0.1.481625.3.579 .2.1285 1947 Unknown [id number] 2.840.1.193180.3.579 .2.1285 1947 Unknown [id number] 2.840.1.544389.3.579 .2.1285 1947 Unknown [id number] 2.840.1.220007.3.579 .2.1285 1947 Unknown [id number] 2.840.1.966991.3.579 .2.1285 1947 Unknown [id number] 2.840.1.448653.3.579 .2.1285 1947 Unknown [id number] 2.840.1.037563.3.579 .2.1285 1947 Unknown [id number] 2.16840.1.801104.3.579 .2.1285 1947 Unknown [id number] 2.840.1.582728.3.579 .2.1286 Social History Date Type Detail Facility Start: 05-14-2022 End: 01-07-2024 Tobacco smoking status NHIS Never smoked tobacco [facility] Work Phone: Start: 05-14-2022 End: 01-07-2024 Tobacco use and exposure Smokeless tobacco non-user [facility] Start: 01-07-2024 End: 10-21-2024 Alcoholic [facility] intake [facility] Start: 11-27-2022 End: 01-07-2024 History of Social function [facility] Start: 11-27-2022 End: 01-07-2024 Tobacco use panel [facility] Start: 1945 Sex assigned at Not on file [facility] Tobacco smoking stat [facility] Tobacco smoking consumption unknown [facility] Start: 05-19-2024 End: 11-02-2024 Alcoholic beverage intake Current non-drinker of alcohol (finding) [facility] Has the [employer], or [employer] threatened to shut off services in your home in past 12Mo No [facility] Do you belong to any clubs or organizations such as gnosticist groups, unions, fraternal or athletic groups, or school groups? Yes [facility] Are you now , , , , never or living with a partner? [facility] How often to you hav e a drink containing alcohol? Never [facility] How many standard dr inks containing alcohol do you have on a typical day? Patient does not drink [facility] How hard is it for y ou to pay for the very basics like food, housing, medical care, and heating Somewhat hard [facility] Do you feel stress - tense, restless, nervous, or anxious, or unable to sleep at night because your mind is troubled all the time - these days [OSQ] Rather much [facility] Start: 11-18-2014 Sex Female (finding) [facility] How hard is it for y ou to pay for the very basics like food, housing, medical care, and heating Hard [facility] Do you feel stress - tense, restless, nervous, or anxious, or unable to sleep at night because your mind is troubled all the time - these days [OSQ] Very much [facility] Clinical Notes 09-07-2021 to 11-05-2024 Telephone Encounter - Salena Gandhi CMA - 11/05/2024 12:38 PM EDTTelephone Encounter - Sangeetha Quick DO - 11/05/2024 12:38 PM EDTTelephone Encounter - Lynnette Piña CMA - 11/05/2024 12:38 PM EDT Note Date & Type Note Facility 11-05-2024 Miscellaneous Notes Patient stopped in and she is in a lot of pain.and said the Meloxicam only work until noon. Her xrays have not been read yet. Message noted. I reviewed her back xray. It shows osteoarthritis at multiple levels. If the Meloxicam is only working for part of the day, is she willing to take Tramadol to help supplement? She used that in the past with some success. Just let me know. I spoke with pt and she agreed to take the Tramadol to supplement with the Meloxicam. Pt stated she will need a script sent to [facility] in [place]. Thank you. Message noted. I sent an order for Tramadol to [facility] in [place] documented in this encounter [facility] 11-05-2024 Telephone encounter Note Patient stopped in and she is in a lot of pain.and said the Meloxicam only work until noon. Her xrays have not been read yet. [facility] 11-05-2024 Telephone encounter Note Message noted. I reviewed her back xray. It shows osteoarthritis at multiple levels. If the Meloxicam is only working for part of the day, is she willing to take Tramadol to help supplement? She used that in the past with some success. Just let me know. [facility] 11-05-2024 Telephone encounter Note I spoke with pt and she agreed to take the Tramadol to supplement with the Meloxicam. Pt stated she will need a script sent to [facility] in [place]. Thank you. [facility] 11-05-2024 Telephone encounter Note Message noted. I sent an order for Tramadol to [facility] in [place] [facility] 11-02-2024 History of Present illness Narrative IM PROGRESS NOTE Patient - Rach Munroe Age - 78 y.o. - 1945 ASSESSMENT & PLAN 1. Gastroenteritis due to norovirus (Primary) -I reviewed the results from ED visit with the patient. Stool PCR was positive for norovirus. Patient advised there is no direct treatment for this, and and tail symptomatic relief. Should be resolving over the next several days. In the meantime, may continue the Reglan so that she is able to eat and drink. 2. Degenerative lumbar spinal stenosis -patient with known degenerative lumbar spinal stenosis and has received LENY in the past at [place] pain management -had MRI scan approximately 3 years ago -this pain is different. Will proceed with an x-ray of the lumbar spine to evaluate for compression fractures, and in the meantime will start meloxicam 15 mg daily to help with pain relief -further recommendations following testing. May need to have trial of physical therapy or referral back to pain management - meloxicam (MOBIC) 15 mg tablet; Take 1 tablet (15 mg total) by mouth in the morning. Dispense: 30 tablet; Refill: 0 - X-ray spine lumbar 2 or 3 views; Future 3. Hiatal hernia -this was noted on an EGD multiple years ago -symptoms worsened by recent gastroenteritis -resume metoclopramide once daily for the next 10 days - metoclopramide (REGLAN) 10 mg tablet; Take 1 tablet (10 mg total) by mouth daily as needed (nausea). Dispense: 10 tablet; Refill: 0 4. Lichen planus atrophicus -patient's urinary symptoms are worsened by her lack of compliance with suppressive therapy -it appears her current prescription for Estrace is more than 2 years old -this was refilled today, and she was advised to use it routinely twice weekly - estradioL (ESTRACE) 0.01 % (0.1 mg/gram) vaginal cream; Use at night once or twice weekly Dispense: 42.5 g; Refill: 1 Subjective FOLLOW-UP: EMERGENCY DEPARTMENT-[place] Patient was discharged from the facility on: 10/30/2024 Diagnosis was: UTI and gastroenteritis Problem or symptoms started as: Patient received a steroid injection in her right shoulder at orthopedics 2 days prior. Over the next 48 hours she developed increased nausea and vomiting, and unable to keep food or liquids down. She was vomiting at least several times an hour along with watery, green stool. Work-up and testing included: Surgery or biopsies? No Imaging / Xrays / Scans? Yes-CT of abdomen and pelvis Blood work? Yes-urine dipstick, stool culture Consults? No Transfusions, injections or infusions? No This is a new problem. Was discharged with the following treatments or medications: Cephalexin and metoclopramide The problem is better than at discharge. She has been taking the metoclopramide once a day and this controls her nausea. She has been able to eat and drink. Urine symptoms still present, with some dysuria, but this has been an ongoing problem, and she has not been using her estrogen cream as prescribed for her lichen planus. New problems since discharge include: Now having pain in her low back, especially on the left side radiating into the left buttock and hip area whenever she moves the wrong way . This includes bending, twisting, or trying to move too quickly. A review of systems was negative except for the following: Gastrointestinal: nausea/vomiting Genito-Urinary: dysuria and and has known lichen planus. Not using her estrogen treatment as prescribed. Symptoms are improved from her visit to the ED, and has completed her course of cephalexin. Musculoskeletal: joint pain, pain in back - left, lower, buttock - left, and shoulder - right, and has been getting injections in the shoulders from Orthopedics ([facility]). Also has been to pain management in [place] and received LENY to the lumbar spine. Has not been there in nearly a year. The current pain in her low back is different than previous pain, it is not radiating all the way down her leg, but is limiting in that it hurts with any movement.. Exam BP 142/82 (BP Site: Left Arm, BP Postition: Sitting, BP CUFF SIZE: S (7-9 inches)) Pulse 63 Temp 36.8 C (98.2 F) (Tympanic) Resp 18 Ht 149.9 cm (4' 11.02 ) Wt 67 kg (147 lb 12.8 oz) SpO2 99% BMI 29.84 kg/m Physical Exam Vitals reviewed. Constitutional: General: She is not in acute distress. Appearance: She is well-developed. She is not toxic-appearing. Comments: Overweight HENT: Head: Normocephalic. Right Ear: External ear normal. Left Ear: External ear normal. Ears: Comments: Mild hearing loss bilateral Nose: Nose normal. Mouth/Throat: Mouth: Mucous membranes are moist. Eyes: General: No scleral icterus. Neck: Vascular: No carotid bruit. Cardiovascular: Rate and Rhythm: Normal rate and regular rhythm. Pulses: Normal pulses. Heart sounds: No murmur heard. No gallop. Pulmonary: Effort: Pulmonary effort is normal. Breath sounds: No wheezing or rales. Abdominal: Palpations: Abdomen is soft. Musculoskeletal: General: Tenderness (L5, S1 and SI joint on the left side. Left sciatic notch.) present. Right lower leg: No edema. Left lower leg: No edema. Comments: ROM lumbar spine: Flexion 15 Extension 0 Rotation 0 Skin: General: Skin is warm and dry. Coloration: Skin is not jaundiced. Findings: No bruising. Neurological: General: No focal deficit present. Mental Status: She is alert and oriented to person, place, and time. Motor: No weakness. Coordination: Coordination normal. Gait: Gait abnormal (Moving very slowly and deliberately when standing and walking). Deep Tendon Reflexes: Reflexes are normal and symmetric. Psychiatric: Mood and Affect: Mood normal. Behavior: Behavior normal. Meds Current Outpatient Medications: acetaminophen (TYLENOL) 650 mg 8 hr tablet, Take 1 tablet (650 mg total) by mouth in the morning., Disp: , Rfl: cholecalciferol (VITAMIN D3) 50,000 units capsule, TAKE 1 CAPSULE BY MOUTH ONCE WEEKLY, Disp: 12 capsule, Rfl: 3 cyanocobalamin (vitamin B-12) 1000 MCG tablet, Take 1 tablet (1,000 mcg total) by mouth in the morning., Disp: 90 tablet, Rfl: 1 levothyroxine (SYNTHROID, LEVOTHROID) 50 MCG tablet, TAKE 1 TABLET BY MOUTH EVERY DAY, Disp: 90 tablet, Rfl: 1 ondansetron ODT (ZOFRAN ODT) 4 mg disintegrating tablet, Dissolve 1 tablet (4 mg total) on tongue every 8 (eight) hours as needed for nausea or vomiting., Disp: 20 tablet, Rfl: 0 rOPINIRole (REQUIP) 0.25 mg tablet, , Disp: , Rfl: rosuvastatin (CRESTOR) 10 mg tablet, TAKE 1 TABLET BY MOUTH EVERY DAY, Disp: 90 tablet, Rfl: 1 tiZANidine (ZANAFLEX) 4 mg capsule, Take 1 capsule (4 mg total) by mouth in the morning and 1 capsule (4 mg total) before bedtime. Indications: muscle spasm. Unsure if taking., Disp: , Rfl: estradioL (ESTRACE) 0.01 % (0.1 mg/gram) vaginal cream, Use at night once or twice weekly, Disp: 42.5 g, Rfl: 1 meloxicam (MOBIC) 15 mg tablet, Take 1 tablet (15 mg total) by mouth in the morning., Disp: 30 tablet, Rfl: 0 metoclopramide (REGLAN) 10 mg tablet, Take 1 tablet (10 mg total) by mouth daily as needed (nausea)., Disp: 10 tablet, Rfl: 0 Lab Results Admission on 10/23/2024, Discharged on 10/23/2024 Component Date Value Ref Range Status WBC 10/23/2024 13.4 (H) 4 - 11 x10E9/L Final RBC Count 10/23/2024 4.38 3.8 - 5.2 X10E12/L Final Hemoglobin 10/23/2024 12.4 11.7 - 15.5 g/dL Final Hematocrit 10/23/2024 37.5 35 - 47 % Final MCV 10/23/2024 86 80 - 100 fL Final MCH 10/23/2024 28.4 27 - 34 pg Final MCHC 10/23/2024 33.2 32 - 36 g/dL Final RDW 10/23/2024 15.0 11.5 - 15 % Final Platelet Count 10/23/2024 275 150 - 450 X10E9/L Final MPV 10/23/2024 9.2 7 - 12 fL Final Neutrophils % 10/23/2024 89.7 % Final Lymphocytes % 10/23/2024 5.8 % Final Monocytes % 10/23/2024 4.1 % Final Eosinophils % 10/23/2024 0.2 % Final Basophils % 10/23/2024 0.2 % Final Neutrophils Absolute (A) 10/23/2024 12.1 (H) 1.5 - 6.6 10*3/uL Final Lymphocytes Absolute 10/23/2024 0.8 (L) 1.0 - 3.5 10*3/uL Final Monocytes Absolute 10/23/2024 0.6 0.0 - 0.9 10*3/uL Final Eosinophils Absolute 10/23/2024 0.0 0.0 - 0.4 10*3/uL Final Basophils Absolute 10/23/2024 0.0 0.0 - 0.2 10*3/uL Final Differential Type 10/23/2024 AUTOMATED DIFFERENTIAL Final SODIUM 10/23/2024 138 134 - 146 mmol/L Final POTASSIUM 10/23/2024 3.7 3.5 - 5.0 mmol/L Final CHLORIDE 10/23/2024 106 98 - 109 mmol/L Final CARBON DIOXIDE 10/23/2024 23 22 - 32 mmol/L Final ANION GAP 10/23/2024 9 5 - 15 mmol/L Final BLOOD UREA NITROGEN 10/23/2024 18 5 - 27 mg/dL Final CREATININE 10/23/2024 0.62 0.40 - 1.00 mg/dL Final GLUCOSE 10/23/2024 142 (H) 65 - 99 mg/dL Final CALCIUM 10/23/2024 8.6 8.5 - 10.5 mg/dL Final TOTAL PROTEIN 10/23/2024 7.4 6.0 - 8.0 g/dL Final ALBUMIN 10/23/2024 4.4 3.2 - 5.3 g/dL Final ALKALINE PHOSPHATASE 10/23/2024 59 39 - 130 U/L Final AST 10/23/2024 18 <=41 U/L Final ALT 10/23/2024 16 <=31 U/L Final BILIRUBIN,TOTAL 10/23/2024 0.6 0.3 - 1.2 mg/dL Final EGFR Non-Race Dependent 10/23/2024 >90 >=60 ml/min/1.73sq.m Final LIPASE 10/23/2024 28 17 - 40 U/L Final Extra Tube 10/23/2024 Auto Resulted Final Extra Tube 10/23/2024 Auto Resulted Final FLU A PCR 10/23/2024 Negative Negative Final FLU B PCR 10/23/2024 Negative Negative Final RSV BY PCR 10/23/2024 Negative Negative Final SARS COV 2 BY PCR 10/23/2024 Not Detected Not Detected Final CAMPYLOBACTER 10/23/2024 Not Detected Not Detected Final PLESIOMONAS 10/23/2024 Not Detected Not Detected Final SALMONELLA 10/23/2024 Not Detected Not Detected Final VIBRIO 10/23/2024 Not Detected Not Detected Final VIBRIO CHOLERAE 10/23/2024 Not Detected Not Detected Final Y. ENTEROCOLITICA 10/23/2024 Not Detected Not Detected Final AGGREGATIVE E COLI 10/23/2024 Not Detected Not Detected Final PATHOGENIC E COLI 10/23/2024 Not Detected Not Detected Final TOXIGENIC E COLI 10/23/2024 Not Detected Not Detected Final SHIGA TOXIN E COLI 10/23/2024 Not Detected Not Detected Final SHIGELLA-E COLI 10/23/2024 Not Detected Not Detected Final CRYPTOSPORIDIUM 10/23/2024 Not Detected Not Detected Final CYCLOSPORA 10/23/2024 Not Detected Not Detected Final E HISTOLYTICA 10/23/2024 Not Detected Not Detected Final GIARDIA LAMBLIA 10/23/2024 Not Detected Not Detected Final ADENOVIRUS 10/23/2024 Not Detected Not Detected Final ASTROVIRUS 10/23/2024 Not Detected Not Detected Final NOROVIRUS 10/23/2024 Detected (A) Not Detected Final ROTAVIRUS A 10/23/2024 Not Detected Not Detected Final SAPOVIRUS 10/23/2024 Not Detected Not Detected Final MAGNESIUM 10/23/2024 1.8 1.8 - 2.6 mg/dL Final Extra Tube 10/23/2024 Auto Resulted Final POC Urine Specific [place] 10/23/2024 1.020 1.010, 1.015, 1.020, 1.025 Final POC Urine Leukocyte Esterase 10/23/2024 Negative Negative Final POC Urine Nitrite 10/23/2024 Positive (A) Negative Final POC Urine pH 10/23/2024 7.0 5.0, 6.0, 6.5, 7.0, 7.5, 8.0, 8.5, 5.5 Final POC Urine Protein 10/23/2024 Trace (A) Negative Final POC Urine Glucose 10/23/2024 Negative Negative Final POC Urine Ketones 10/23/2024 15 mg/dL (A) Negative Final POC Urine Urobilinogen 10/23/2024 0.2 E.U./dL Final POC Urine Bilirubin 10/23/2024 Negative Negative Final POC Urine Blood/HGB 10/23/2024 Trace (A) Negative Final Other Testing No results found. Sangeetha Quick DO., [facility]: [phone] documented in this encounter [facility] 10-26-2024 Miscellaneous Notes ED Outreach This documentation is being used for Transition of Care purposes: Yes/No: Yes ED Outreach Date: October 26, 2024 ED Outreach Method: COMMUNICATION METHOD: Telephone ED Outreach Attempt: first ED Outreach Outcome: Contacted Patient Name of ED Facility: [facility] Date of ED Discharge: 10/23/2024 Discharge Diagnosis: nausea vomiting and diarrhea ED Chief Complaint: abdominal pain Current Symptom Status: improving- patient states that the diarrhea and pain have slowed down/lessened. She states that she is continuing to be nauseated. She states that she is trying to stay hydrated. Denies other concerns at this time Medication Changes Reviewed: yes Medication Questions/Concerns: denies concerns at this time Follow-up PCP Scheduled: will call back to schedule Follow-up Specialist Scheduled:n/a Follow up Testing Scheduled: n/a Patient Contacted Office Prior to ED Visit: No. Patient made aware of on-call provider and same day appointment availability. Additional Comments: Patient will contact the office with additional concerns. documented in this encounter [facility] 10-26-2024 Telephone encounter Note ED Outreach This documentation is being used for Transition of Care purposes: Yes/No: Yes ED Outreach Date: October 26, 2024 ED Outreach Method: COMMUNICATION METHOD: Telephone ED Outreach Attempt: first ED Outreach Outcome: Contacted Patient Name of ED Facility: [facility] Date of ED Discharge: 10/23/2024 Discharge Diagnosis: nausea vomiting and diarrhea ED Chief Complaint: abdominal pain Current Symptom Status: improving- patient states that the diarrhea and pain have slowed down/lessened. She states that she is continuing to be nauseated. She states that she is trying to stay hydrated. Denies other concerns at this time Medication Changes Reviewed: yes Medication Questions/Concerns: denies concerns at this time Follow-up PCP Scheduled: will call back to schedule Follow-up Specialist Scheduled:n/a Follow up Testing Scheduled: n/a Patient Contacted Office Prior to ED Visit: No. Patient made aware of on-call provider and same day appointment availability. Additional Comments: Patient will contact the office with additional concerns. [facility] 10-21-2024 History of Present illness Narrative Associated Order(s): L Inj/Asp: R subacromial bursa Post-Procedure Diagnose(s): Acute pain of right shoulder Images from the original note were not included. HISTORY OF PRESENT ILLNESS: EST PT Rach Munroe is an 78 y.o. @ female. (EST PT) - RECHECK (R) SHOULDER DISCOMFORT S/P INJURY 06/12/24 (4 MONTHS, 10 DAYS) ; S/P CORTISONE INJ 09/09/24 (6 WKS) XRAY 09/09/24 IN EPIC MRI 08/11/24 @[facility] PER PT - POSSIBLY TOOK MDP FOR LBP IN 05/2024 CORTISONE INJ 09/09/24 NO PT PAIN MGMT @[facility] (DR. YOU) S/P CORTISONE INJ - WITH RELIEF. IMPROVEMENT HS. CONTINUES SUPINE SHOULDER EXERCISES (HEP). CAN STILL HAVE SUPERIOR / POSTERIOR DISCOMFORT WITH CERTAIN MOVEMENTS. RADIATION INTO UPPER ARM. ADMITS WARMTH TO TOUCH / DIFFUSE INTERMITTENT SWELLING. DENIES N/T. ADMITS DROPPING OBJECTS LESS FREQUENTLY - WEAKNESS. 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 ADMITS POPPING / CRACKING. DENIES TIGHTNESS / STIFFNESS. DIFFICULTY WITH GETTING COMFORTABLE. WAKING HS WHEN ROLLING ONTO ARM. OCCASIONALLY HAS TO USE OPPOSITE HAND TO HELP MOVE ARM. TRAMADOL (DR. YOU) - NOT TAKING BID, ONLY TAKING QAM - LIMITED RELIEF. TYL ARTHRITIS - WITH RELIEF. TRIED ICING / HEATING - NO RELIEF. ICY HOT, LIDOCAINE, VOLTAREN, BIOFREEZE. LIDOCAINE TOPICAL - SOME RELIEF. TIZANIDINE BID - WITH RELIEF. DANETTE: 06/12/24 - OVERHEAD BARN DOOR OPENED AND CAME DOWN ONTO (R) SHOULDER LT HANDED. ALLERGIES: Allergies Allergen Reactions Iodine Anaphylaxis Other Reaction(s): SOB / Blisters Aspirin Other Reaction(s): Fever / Rash Etodolac Latex Penicillins Hives Codeine Rash and Unknown Sulfa Antibiotics Rash and Unknown HOME MEDICATIONS: Current Outpatient Medications Medication Instructions acetaminophen (TYLENOL 8 HOUR) 650 mg, Oral, Daily RT cholecalciferol (Vitamin D-3) 1.25 MG (85216 UT) capsule 1 capsule, Oral, Weekly ergocalciferol (Vitamin D2) 1.25 MG (31597 UT) capsule TAKE 1 CASPULE BY MOUTH [...] A DAY NEEDED traMADol (ULTRAM) 50 mg, 2 times daily PRN PHYSICAL EXAM: Shoulder Musculoskeletal Exam Inspection Right Right shoulder inspection is normal. Ecchymosis: none Peripheral edema: none Atrophy: none Masses: none Palpation Right Crepitus: no crepitus Increased warmth: none Tenderness: present Anterior shoulder: moderate Posterior shoulder: mild AC joint: mild Proximal biceps: moderate Lateral arm: mild Range of Motion Right Right shoulder range of motion is normal. Active ROM: pain. Passive ROM: pain. Active forward elevation: 90. Passive forward elevation: 160. Shoulder active abduction: 90. Passive abduction: 160. Active external rotation at side: 40. Passive external rotation at side: 50. Internal rotation: L1. Strength Right External rotation: 5/5. Internal rotation: 5/5. Abduction: 3/5. Biceps: 5/5. Triceps: 5/5. Neurovascular Right Radial pulse: normal and 2+ Capillary refill: <3 sec Axillary nerve sensory distribution: normal Scapula Right Right shoulder scapula is normal. Position: normal Winging: none Special Tests Right Rotator Cuff Signs Neer's test: positive Alvarado test: positive Painful arc test: positive Biceps/rogelio Signs Speed's test: positive General Constitutional: appears stated age Neurological: alert and oriented x3 Vitals: There is no height or weight on file to calculate BMI. Tobacco Use: Low Risk (10/21/2024) Patient History Smoking Tobacco Use: Never Smokeless Tobacco Use: Never Passive Exposure: Not on file Alcohol Use: Not At Risk (11/27/2022) Received from [facility] AUDIT-C Frequency of Alcohol Consumption: Never Average Number of Drinks: Patient does not drink Frequency of Binge Drinking: Never IMAGING: L Inj/Asp: R subacromial bursa on 10/21/2024 10:48 AM Indications: pain Details: 21 G needle, posterior approach Medications: 40 mg methylPREDNISolone acetate 40 MG/ML Outcome: tolerated well, no immediate complications SKIN PREPPED WITH ISOPROPYL ALCOHOL Procedure, treatment alternatives, risks and benefits explained, specific risks discussed. Consent was given by the patient. Orders Placed This Encounter Procedures L Inj/Asp: R subacromial bursa This order was created via procedure documentation ASSESSMENT: ICD-10-CM 1. Acute pain of right shoulder M25.511 L Inj/Asp: R subacromial bursa 2. Rotator cuff arthropathy, right M12.474 PLAN: We have discussed her symptoms and physical exam with her at length today. She refuses any surgical intervention. She is requesting a second cortisone injection and we have performed this after obtaining informed consent under sterile technique without incident into the subacromial space of the right shoulder. We have discussed restrictions and home exercise program and we'll see her back in 8 weeks. If her symptoms persist or worsen we would probably recommend a reverse arthroplasty with Dr. Syed. Questions answered in laymen terms at the bedside. The diagnosis, home exercise plan and any ongoing restrictions/ recommendations reviewed. If unable to be reached in office, I recommend evaluation at nearest Emergency Room if any symptoms worsened or new symptoms develop for requiring urgent evaluation. documented in this encounter [facility] 09-09-2024 History of Present illness Narrative Associated Order(s): L Inj/Asp: R subacromial bursa Post-Procedure Diagnose(s): Acute pain of right shoulder Images from the original note were not included. HISTORY OF PRESENT ILLNESS: EST PT Rach Munroe is an 78 y.o. @ female. (EST PT) (NEW PROBLEM) - (R) SHOULDER DISCOMFORT S/P INJURY 06/12/24 (3 MONTHS) - OVERHEAD BARN DOOR OPENED AND CAME DOWN ONTO (R) SHOULDER XRAY TODAY, 09/09/24 IN EPIC MRI 08/11/24 @[facility] PER PT - POSSIBLY TOOK MDP FOR LBP IN 05/2024 NO CORTISONE INJ NO PT PAIN MGMT @[facility] (DR. YOU) SUPERIOR / POSTERIOR DISCOMFORT. RADIATION INTO UPPER ARM. ADMITS WARMTH TO TOUCH / DIFFUSE SWELLING. DENIES N/T. ADMITS DROPPING OBJECTS FREQUENTLY - WEAKNESS. 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 LIMITED ROM WITH ELEVATION / POSTERIOR MOVEMENT D/T DISCOMFORT. DENIES TIGHTNESS / STIFFNESS. WAKING HS / DIFFICULTY WITH GETTING COMFORTABLE. OCCASIONALLY HAS TO USE OPPOSITE HAND TO HELP MOVE ARM. TIZANIDINE / TRAMADOL (DR. YOU) - NO RELIEF. TYL ARTHRITIS - WITH RELIEF. TRIED ICING / HEATING - NO RELIEF. ICY HOT, LIDOCAINE, VOLTAREN, BIOFREEZE. LIDOCAINE TOPICAL - SOME RELIEF. ALLERGIES: Allergies Allergen Reactions Iodine Anaphylaxis Other Reaction(s): SOB / Blisters Aspirin Other Reaction(s): Fever / Rash Etodolac Latex Penicillins Hives Codeine Rash and Unknown Sulfa Antibiotics Rash and Unknown HOME MEDICATIONS: Current Outpatient Medications Medication Instructions acetaminophen (TYLENOL 8 HOUR) 650 mg, Oral, Daily RT cholecalciferol (Vitamin D-3) 1.25 MG (24202 UT) capsule 1 capsule, Oral, Weekly ergocalciferol (Vitamin D2) 1.25 MG (71495 UT) capsule TAKE 1 CASPULE BY MOUTH [...] Oral, 2 times daily PRN PHYSICAL EXAM: Shoulder Musculoskeletal Exam Inspection Right Right shoulder inspection is normal. Ecchymosis: none Peripheral edema: none Atrophy: none Masses: none Palpation Right Crepitus: no crepitus Increased warmth: none Tenderness: present Anterior shoulder: mild AC joint: mild Proximal biceps: moderate Lateral arm: mild Range of Motion Right Right shoulder range of motion is normal. Active ROM: pain. Passive ROM: pain. Active forward elevation: 90. Passive forward elevation: 160. Shoulder active abduction: 90. Passive abduction: 160. Active external rotation at side: 40. Passive external rotation at side: 50. Internal rotation: L1. Strength Right External rotation: 5/5. Internal rotation: 5/5. Abduction: 3/5. Biceps: 5/5. Triceps: 5/5. Neurovascular Right Radial pulse: normal and 2+ Capillary refill: <3 sec Axillary nerve sensory distribution: normal Scapula Right Right shoulder scapula is normal. Position: normal Winging: none Special Tests Right Rotator Cuff Signs Neer's test: positive Alvarado test: positive Painful arc test: positive Biceps/rogelio Signs Speed's test: positive General Constitutional: appears stated age Neurological: alert and oriented x3 Vitals: There is no height or weight on file to calculate BMI. 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 L Inj/Asp: R subacromial bursa on 09/09/2024 10:26 AM Indications: pain Details: 21 G needle, posterior approach Medications: 40 mg methylPREDNISolone acetate 40 MG/ML Outcome: tolerated well, no immediate complications Procedure, treatment alternatives, risks and benefits explained, specific risks discussed. Consent was given by the patient. Orders Placed This Encounter Procedures L Inj/Asp: R subacromial bursa This order was created via procedure documentation XR shoulder 2+ views right Reason for exam:: Pain ASSESSMENT: ICD-10-CM 1. Acute pain of right shoulder M25.511 XR shoulder 2+ views right L Inj/Asp: R subacromial bursa 2. Nontraumatic complete tear of right rotator cuff M75.121 PLAN: We have discussed her symptoms, physical exam, x-rays, and MRI today at length. She has a rotator cuff tear to the right shoulder. We have injected under sterile technique today in the office and we see her .back in 6 weeks. If her symptoms are intolerable we would probably recommend a diagnostic and operative arthroscopy of her right shoulder. We have given her supine shoulder exercises to do 10 times once a day in the interim. Questions answered in laymen terms at the bedside. The diagnosis, home exercise plan and any ongoing restrictions/ recommendations reviewed. If unable to be reached in office, I recommend evaluation at nearest Emergency Room if any symptoms worsened or new symptoms develop for requiring urgent evaluation. documented in this encounter [facility] 08-18-2024 History of Present illness Narrative IM PROGRESS NOTE Patient - Rach Munroe Age - 78 y.o. - 1945 ASSESSMENT & PLAN 1. Hyperlipidemia, unspecified hyperlipidemia type (Primary) - currently taking rosuvastatin 10 mg daily -repeat lipid panel to assess efficacy of current treatment and evaluate for side effects of medications. Further adjustments based on lab results - Comprehensive metabolic panel; Future - Lipid profile; Future - Lipid profile - Comprehensive metabolic panel 2. Hypothyroidism, unspecified type - I reviewed the results of her recent lab testing with the patient. - T4 and TSH within normal range -continue levothyroxine 50 mcg daily 3. Elevated blood pressure reading - had elevated blood pressure reading today - we have not seen this in the past - I encourage patient to start checking this routinely at home, or noting blood pressure readings when at other offices -if above goal ( 130/80 mmHg), she should let me know 4. Cobalamin deficiency - I reviewed the results of her recent B12 serum levels which were < 400 pg/ mL - has restarted cyanocobalamin 1000 mcg daily -tolerating well. No changes Subjective CARDIOVASCULAR FOLLOW-UP This is a follow up of a pre-existing problem. Blood pressures are not being checked outside the office. Frequency: rare Readings have been unknown. No one at other offices has mentioned her blood pressure being elevated. BP readings outside the office range from unknown systolic and unknown diastolic. The 10-year ASCVD risk score (Kaitlin CAREY, et al., 2019) is: 20.5% Values used to calculate the score: Age: 78 years Sex: Female Is Non- : No Diabetic: No Tobacco smoker: No Systolic Blood Pressure: 140 mmHg Is BP treated: No HDL Cholesterol: 55 mg/dL Total Cholesterol: 140 mg/dL Patient reports following dosing instructions. Currently taking rosuvastatin for her hyperlipidemia. Has not missed any. Physical activity: Is limited because of ongoing right shoulder pain and arm weakness. However does continue to try cooking and cleaning and doing work around her home Dietary efforts show fairly healthy diet with limited sugars and fats. CV symptoms review was negative for rapid or irregular heart rate, palpitations, syncope A review of systems was negative except for the following: General: weight gain Endocrine: had thyroid recheck several months ago. T4 and TSH readings were within normal range Genito-Urinary: urinary symptoms are stable. Often forgets to use her estrogen cream. Musculoskeletal: joint pain, pain in shoulder - right, and low back and knees. Going to pain clinic at [place] and receiving injections.. Exam BP 140/80 (BP Site: Left Arm, BP Postition: Sitting, BP CUFF SIZE: L (13-17 inches)) Pulse 78 Temp 36.6 C (97.8 F) (Oral) Resp 20 Ht 149.9 cm (4' 11.02 ) Wt 69.8 kg (153 lb 12.8 oz) SpO2 100% BMI 31.05 kg/m Physical Exam Vitals reviewed. Constitutional: General: She is not in acute distress. Appearance: She is well-developed. She is obese. She is not toxic-appearing. Comments: HENT: Head: Normocephalic. Right Ear: External ear normal. Left Ear: External ear normal. Nose: Nose normal. Mouth/Throat: Mouth: Mucous membranes are moist. Eyes: General: No scleral icterus. Neck: Vascular: No carotid bruit. Comments: Thyroid gland nonenlarged and nontender Cardiovascular: Rate and Rhythm: Normal rate and regular rhythm. Pulses: Normal pulses. Heart sounds: No murmur heard. No gallop. Pulmonary: Effort: Pulmonary effort is normal. Breath sounds: No wheezing or rales. Abdominal: Palpations: Abdomen is soft. Musculoskeletal: General: Tenderness (Right shoulder anterior and lateral with any movement) present. Right lower leg: No edema. Left lower leg: No edema. Skin: General: Skin is warm and dry. Coloration: Skin is not jaundiced. Findings: No bruising. Neurological: Mental Status: She is alert and oriented to person, place, and time. Sensory: Sensory deficit (Diminished vibratory sensation in the stocking-glove distribution of the right foot.) present. Motor: No weakness. Deep Tendon Reflexes: Reflexes normal. Psychiatric: Mood and Affect: Mood normal. Behavior: Behavior normal. Meds Current Outpatient Medications: acetaminophen (TYLENOL) 650 mg 8 hr tablet, Take 1 tablet (650 mg total) by mouth in the morning., Disp: , Rfl: cholecalciferol (VITAMIN D3) 50,000 units capsule, TAKE 1 CAPSULE BY MOUTH ONCE WEEKLY, Disp: 12 capsule, Rfl: 3 cyanocobalamin (vitamin B-12) 1000 MCG tablet, Take 1 tablet (1,000 mcg total) by mouth in the morning., Disp: 90 tablet, Rfl: 1 estradioL (ESTRACE) 0.01 % (0.1 mg/gram) vaginal [...] Rfl: 0 rOPINIRole (REQUIP) 0.25 mg tablet, , Disp: , Rfl: rosuvastatin (CRESTOR) 10 mg tablet, TAKE 1 TABLET BY MOUTH EVERY DAY, Disp: 90 tablet, Rfl: 1 tiZANidine (ZANAFLEX) 4 mg capsule, Take 1 capsule (4 mg total) by mouth once daily at bedtime Indications: muscle spasm. Unsure if taking, Disp: , Rfl: traMADoL (ULTRAM) 50 mg tablet, , Disp: , Rfl: Lab Results No visits with results within 1 Month(s) from this visit. Latest known visit with results is: Hospital Outpatient Visit on 05/19/2024 Component Date Value Ref Range Status Vit D, 25-Hydroxy 05/19/2024 97.5 30 - 100 ng/mL Final TSH 05/19/2024 0.60 0.49 - 4.67 uIU/mL Final T4, free 05/19/2024 0.95 0.61 - 1.60 ng/dL Final Sodium 05/19/2024 140 134 - 146 mmol/L Final Potassium, Bld 05/19/2024 4.1 3.5 - 5.0 mmol/L Final Chloride 05/19/2024 104 98 - 109 mmol/L Final CO2 05/19/2024 28 22 - 32 mmol/L Final Anion gap 05/19/2024 8 5 - 15 mmol/L Final BUN 05/19/2024 20 5 - 27 mg/dL Final Creatinine 05/19/2024 0.93 0.40 - 1.00 mg/dL Final Glucose 05/19/2024 87 65 - 99 mg/dL Final Calcium 05/19/2024 8.8 8.5 - 10.5 mg/dL Final Total Protein 05/19/2024 6.6 6.0 - 8.0 g/dL Final Albumin 05/19/2024 4.3 3.2 - 5.3 g/dL Final Alkaline Phosphatase 05/19/2024 51 39 - 130 U/L Final AST 05/19/2024 17 0 - 41 U/L Final ALT 05/19/2024 10 0 - 31 U/L Final Total bilirubin 05/19/2024 0.4 0.3 - 1.2 mg/dL Final eGFR (CKD-EPI)non-race dependent 05/19/2024 64 >59 ml/min/1.73sq.m Final Vitamin B-12 05/19/2024 319 180 - 914 pg/mL Final White Blood Cells 05/19/2024 7.5 4.0 - 11.0 X10E9/L Final RBC count 05/19/2024 4.04 3.80 - 5.20 X10E12/L Final Hemoglobin 05/19/2024 11.2 (L) 11.7 - 15.5 g/dL Final Hematocrit 05/19/2024 34.6 (L) 35 - 47 % Final MCV 05/19/2024 86 80 - 100 fL Final MCH 05/19/2024 27.7 27 - 34 pg Final MCHC 05/19/2024 32.4 32 - 36 g/dL Final RDW 05/19/2024 14.9 11.5 - 15.0 % Final Platelets 05/19/2024 242 150 - 450 X10E9/L Final MPV 05/19/2024 9.4 7 - 12 fL Final % neutrophils 05/19/2024 59.1 % Final % lymphocytes 05/19/2024 33.7 % Final % monocytes 05/19/2024 5.8 % Final % eosinophils 05/19/2024 1.2 % Final % Basophils 05/19/2024 0.2 % Final Neutrophils Absolute (A) 05/19/2024 4.4 1.5 - 6.6 X10E9/L Final Lymphocytes Absolute 05/19/2024 2.5 1.0 - 3.5 X10E9/L Final Monocytes Absolute 05/19/2024 0.4 0 - 0.9 X10E9/L Final Eosinophils Absolute 05/19/2024 0.1 0.0 - 0.4 X10E9/L Final Basophils Absolute 05/19/2024 0.0 0.0 - 0.2 X10E9/L Final Other Testing No results found. Sangeetha Quick DO., [facility] Office: [phone] documented in this encounter [facility] [employer] [facility] 05-19-2024 History of Present illness Narrative IM [...] 3. Vitamin D deficiency -currently taking D3 51232 units weekly because of low vitamin-D and [...] Testing No results found. Sangeetha Quick DO., [facility]: [phone] documented in this encounter [facility] 02-27-2024 History of Present illness Narrative [...] Do you have a durable power of business attorney?: Yes Cognitive Screening Do you have [...] year (around 02/26/2025). documented in this encounter [facility] 02-06-2024 History of Present illness Narrative Pt here for reclast as scheduled. Has had in the past without issues. PIV initiated to [facility]. Brisk blood return. Flushes with ease. Reclast infused over 15 minutes without incident. Line flushed. PIV removed. Pt dc'd in stable ambulatory condition. documented in this encounter [facility] 02-03-2024 Miscellaneous Notes Called pt to let her know that she just has to go get her labs drawn at the hospital and the orders are already in. documented in this encounter [facility] 02-03-2024 Telephone encounter Note Called pt to let her know that she just has to go get her labs drawn at the hospital and the orders are already in. [facility] 01-22-2024 Miscellaneous Notes Patient called asking about an infusion at the [facility] that you were suppose to send over Message noted. The order was sent. She can call them at any time Mailbox is full documented in this encounter [facility] 01-22-2024 Telephone encounter Note Patient called asking about an infusion at the [facility] that you were suppose to send over [facility] 01-22-2024 Telephone encounter Note Message noted. The order was sent. She can call them at any time [facility] 01-22-2024 Telephone encounter Note Mailbox is full [facility] 01-20-2024 History of Present illness Narrative IM PROGRESS NOTE Patient - Rach Munroe Age - 78 y[facility] 1945 [id number] ASSESSMENT & PLAN Diagnosis Plan 1. Hordeolum [...] Testing No results found. Sangeetha Quick DO., [facility]: [phone] documented in this encounter [facility] 01-20-2024 History of Present illness Narrative HISTORY [...] Daily RT cholecalciferol (Vitamin D-3) 1.25 MG (61844 UT) capsule 1 capsule, Oral, Weekly ergocalciferol (Vitamin D2) 1.25 MG (18352 UT) capsule TAKE 1 CASPULE BY MOUTH [...] Use: Not At Risk (11/27/2022) [facility] [email or web address] Frequency of Alcohol Consumption: Never Average [...] Angella Mckeon D.O. documented in this encounter [facility] 01-07-2024 History of Present illness Narrative Images [...] (AP STANDING) @ [place]. PHYSICAL THERAPY @ [facility] 08/26/18 DR QUICK TX; TRAMADOL PRN- [...] Daily RT cholecalciferol (Vitamin D-3) 1.25 MG (20006 UT) capsule 1 capsule, Oral, Weekly Cyanocobalamin ER 1000 MCG tablet controlled-release 2 tablets, Oral, Daily ergocalciferol (Vitamin D2) 1.25 MG (08234 UT) capsule TAKE 1 CASPULE BY MOUTH [...] left knee showed severe varus deformity with [id number] articulation to the medial joint line, flattening [...] develop for requiring urgent evaluation. Kathryn Cagle QUILTING MACHINE OPERATOR-GROCERY PACKER documented in this encounter [facility] 12-24-2023 History of Present illness Narrative IM PROGRESS NOTE Patient - Rach Munroe Age - 78 y.[facility]. [facility] 1945 [id number] ASSESSMENT & PLAN 1. Diarrhea, unspecified type [...] Vitamin D deficiency -currently on vitamin D2 27075 units weekly -no change today 4. Cobalamin [...] She was visiting her [facility] in [place] [facility], and person there was having diarrhea and [...] Detected Not Detected^Not Detected Final Specific gravity [facility] 2023 1.015 1.003 - 1.035 Final Leukocyte esterase [facility] 2023 Trace (A) Negative^Negative Final Nitrite [facility] 2023 Negative Negative^Negative Final Ph 2023 5.5 5.0 - 8.5 Final Protein [facility] 2023 Negative Negative^Negative mg/dL Final Urine glucose [facility] 2023 Negative Negative^Negative mg/dL Final Ketones [facility] 2023 Trace (A) Negative^Negative mg/dL Final Urobilinogen [facility] 2023 0.2 <1.1 eu/dL Final Bilirubin [facility] 2023 Negative Negative^Negative Final Hemoglobin [facility] 2023 Small (A) Negative^Negative Final Other Testing No results found. Sangeetha Quick DO., [facility]: [phone] documented in this encounter [facility] 12-23-2023 Miscellaneous Notes ED Outreach This documentation is being used for Transition of Care purposes: Yes/No: Yes ED Outreach Date: December 23, 2023 ED Outreach Method: COMMUNICATION METHOD: Telephone ED Outreach Attempt: second ED Outreach Outcome: Contacted Patient Name of ED Facility: [facility] Date of ED Discharge: 2023 Discharge [...] with additional concerns. documented in this encounter [email or web address] 12-23-2023 Telephone encounter Note ED Outreach This documentation is being used for Transition of Care purposes: Yes/No: Yes ED Outreach Date: December 23, 2023 ED Outreach Method: COMMUNICATION METHOD: Telephone ED Outreach Attempt: second ED Outreach Outcome: Contacted Patient Name of ED Facility: [facility] Date of ED Discharge: 2023 Discharge [...] will contact the office with additional concerns. [email or web address] 12-11-2023 Miscellaneous Notes Patient came in today and asked if her mammogram could be sent to [facility]. Also she was wondering if you would check into her in fusion at [facility]. Message noted. The mammogram order was sent to [facility] I put a new order for the Reclast infusion at [facility]. She can call about setting up the infusion Informed patient via answering machine. documented in this encounter [facility] 12-11-2023 Telephone encounter Note Patient came in today and asked if her mammogram could be sent to [facility]. Also she was wondering if you would check into her in fusion at [facility]. [facility] 12-11-2023 Telephone encounter Note Message noted. The mammogram order was sent to [facility] I put a new order for the Reclast infusion at [facility]. She can call about setting up the infusion [facility] 12-11-2023 Telephone encounter Note Informed patient via answering machine. [facility] 08-21-2023 Miscellaneous Notes Patient called and [...] time. Patient notified documented in this encounter [facility] 08-21-2023 Telephone encounter Note Patient called and the injection in her knee did not help. She wanted to know where to go from here. Does she need another apt? [facility] 08-21-2023 Telephone encounter Note Message noted. She needs to see orthopedics about a knee replacement. Whom does she wish to see? [facility] 08-21-2023 Telephone encounter Note LM for Patient to call back. [facility] 08-21-2023 Telephone encounter Note She would like to use Dr. Mckeon [facility] 08-21-2023 Telephone encounter Note Message noted. I made a referral to Dr. Mckeon. She can call his office and schedule at any time. [facility] 08-21-2023 Telephone encounter Note Patient notified [facility] 07-25-2023 History of Present illness Narrative [...] Testing No results found. Sangeetha Quick DO., [facility]: [phone] [facility] 07-01-2023 History of Present illness Narrative [...] Testing No results found. Sangeetha Quick DO., [facility]: [phone] documented in this encounter [facility] 06-25-2023 History of Present illness Narrative [...] Testing No results found. Sangeetha Quick DO., [facility]: [phone] documented in this encounter [facility] [employer] [facility] 05-30-2023 History of Present illness Narrative [...] [facility] into [facility], and a son was found at home. [...] Testing No results found. Sangeetha Quick DO., [facility]: [phone] documented in this encounter [facility] 07-19-2022 Note CONSULTATION CONSULTATION DATE: 07/19/2022 [...] our patients to inform us about any estx-vbn-dmbdice medications or herbal remedies/nutritional supplements/alternative remedies. 2. [...] options with their primary care provider. [facility] 04-26-2022 Note CONSULTATION CONSULTATION DATE: 04/26/2022 [...] three months' time unless otherwise indicated. [facility] 03-27-2022 Note CONSULTATION CONSULTATION DATE: 03/27/2022 [...] to proceed. CC: Sangeetha Quick D.O. [facility] 02-08-2022 Note CONSULTATION CONSULTATION DATE: 02/08/2022 [...] The patient agrees with this plan. [facility] 01-11-2022 Note CONSULTATION CONSULTATION DATE: 01/11/2022 [...] Patient would like to move forward. [facility] 12-14-2021 Note CONSULTATION PROCEDURE DATE: 12/14/2021 [...] be followed up in the office. [facility] 12-14-2021 Note CONSULTATION CONSULTATION DATE: 12/14/2021 [...] well, which she does consent to. [facility] 09-07-2021 Note CONSULTATION CONSULTATION DATE: 09/07/2021 [...] in the fall. She was referred to [email or web address] Neurosurgery and is planning to have surgery in the fall following harvest season. 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 Patient feels that she can make it through the summer with a combination of her medication and occasional trigger point injections. 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 She uses heat [...] in three months' time, unless otherwise indicated. [facility] Signed and Approved by: MARIELY YAUN . 09/14/2021 16:04:00 [facility] Evaluation note Diagnosis Primary osteoarthritis of [...] atrophicus Lichen planus [facility] Diagnosis Hypothyroidism, unspecified type- Primary Cobalamin deficiency Other B-complex deficiencies Hyperlipidemia, unspecified hyperlipidemia type Osteoarthritis of left shoulder, unspecified osteoarthritis type documented [facility] Diagnosis Localized osteoarthritis of left knee- Primary documented [facility]* Diagnosis Primary osteoarthritis of knees, bilateral- Primary Osteoarthritis of left shoulder, unspecified osteoarthritis type Immunization due documented [facility] Diagnosis Osteoarthritis of left shoulder, unspecified osteoarthritis type- Primary documented [facility]* Diagnosis Hordeolum externum of right upper eyelid- Primary Blepharitis of right upper eyelid, unspecified type Age-related osteoporosis without current pathological fracture Encounter for immunization documented [facility] Diagnosis Diarrhea, unspecified type- Primary Primary osteoarthritis of knees, bilateral Vitamin D deficiency Cobalamin deficiency Other B-complex deficiencies Age-related osteoporosis without current pathological fracture Nausea and vomiting, unspecified vomiting type documented [facility]* Diagnosis Age-related osteoporosis without current pathological fracture- Primary documented [facility]* Diagnosis Hypothyroidism Unspecified hypothyroidism Deficiency of other specified B group vitamins Vitamin D deficiency, unspecified Hordeolum externum of right upper eyelid documented [facility]* Diagnosis Encounter for subsequent annual wellness visit (AWV) in Medicare patient- Primary documented [facility]* Diagnosis Hyperlipidemia, unspecified documented [facility]* Diagnosis Hyperlipidemia, unspecified hyperlipidemia type- Primary Hypothyroidism, unspecified type Elevated blood pressure reading Elevated blood pressure reading without diagnosis of hypertension Cobalamin deficiency Other B-complex deficiencies documented [facility]* Diagnosis Hypothyroidism Unspecified hypothyroidism documented [facility]* Diagnosis Acute pain of right shoulder- Primary Nontraumatic complete tear of right rotator cuff [facility] Acute pain of right shoulder- Primary Rotator cuff arthropathy, right [facility] Diagnosis Gastroenteritis due to norovirus- Primary Degenerative lumbar spinal stenosis Spinal stenosis of lumbar region Hiatal hernia Diaphragmatic hernia without mention of obstruction or gangrene Lichen planus atrophicus Lichen planus [facility] Diagnosis Cobalamin deficiency Other B-complex deficiencies [facility] filedocumented in this [facility] filedocumented in this encounter [facility] filedocumented in this encounter [facility]* Attachments The following attachments cannot be sent through Care Everywhere. * Osteoarthritis Discharge Instructions (Albanian) documented in this encounterProMedica Health SystemInstructionsNot on [...] documented in this encounterProCentral [facility] Summary Purpose Family History No [...] CREATED AUTHOR AUTHOR'S ORGANIZ ATION 08/29/2022 [facility] DATE CREATED AUTHOR AUTHOR'S ORGANIZ ATION 07/19/2024 [facility] DATE CREATED AUTHOR AUTHOR'S ORGANIZ ATION 08/21/2024 [facility] DATE CREATED AUTHOR AUTHOR'S ORGANIZ ATION 10/25/2024 [facility] EPIC DATE CREATED AUTHOR AUTHOR'S ORGANIZ ATION 11/04/2024 [facility] DATE CREATED AUTHOR AUTHOR'S ORGANIZ ATION 11/07/2024 [facility] Care Teams (unrecognized sec tion and content) Molding Press Operator Relationship Specialty Start Date End Date Sangeetha Quick MD [address] [place] [address] PCP - General Internal Medicine 09/10/23 Molding Press Operator Relationship Specialty Start Date End Date Sangeetha Quick MD [address] [place] [address] PCP - General Internal Medicine 09/10/23 Molding Press Operator Relationship Specialty Start Date End Date Sangeetha Quick MD [address] [place] [address] PCP - General Internal Medicine 09/10/23 Molding Press Operator Relationship Specialty Start Date End Date Sangeetha Quick DO [address] [place] [address] PCP - General 11/09/13 Molding Press Operator Relationship Specialty Start Date End Date Sangeetha Quick DO [address] [place] [address] PCP - General 11/09/13 Molding Press Operator Relationship Specialty Start Date End Date Sangeetha Quick DO [address] [place] [address] PCP - General 11/09/13 Molding Press Operator Relationship Specialty Start Date End Date Sangeetha Quick DO [address] [facility] [place] [address] PCP - General 11/09/13 Molding Press Operator Relationship Specialty Start Date End Date Sangeetha Quick DO [address] [facility] [place] [address] PCP - General 11/09/13 Molding Press Operator Relationship Specialty Start Date End Date Sangeetha Quick DO [address] [place] [address] PCP - General 11/09/13 Molding Press Operator Relationship Specialty Start Date End Date Sangeetha Quick DO [address] [place] [address] PCP - General 11/09/13 Molding Press Operator Relationship Specialty Start Date End Date Sangeetha Quick DO [address] [facility] [place] [address] PCP - General 11/09/13 Molding Press Operator Relationship Specialty Start Date End Date Sangeetha Quick DO [address] [place] [address] PCP - General 11/09/13 Molding Press Operator Relationship Specialty Start Date End Date Sangeetha Quick DO [address] [place] [address] PCP - General 11/09/13 Molding Press Operator Relationship Specialty Start Date End Date Sangeetha Quick DO [address] [place] [address] PCP - General 11/09/13 Molding Press Operator Relationship Specialty Start Date End Date Sangeetha Quick DO [address] [place] [address] PCP - General 11/09/13 Molding Press Operator Relationship Specialty Start Date End Date Sangeetha Quick DO [address] [place] [address] PCP - General 11/09/13 Molding Press Operator Relationship Specialty Start Date End Date Sangeetha Quick MD PCP - General Internal Medicine 09/10/23 Molding Press Operator Relationship Specialty Start Date End Date Sangeetha Quick MD PCP - General Internal Medicine 09/10/23 Molding Press Operator Relationship Specialty Start Date End Date Sangeetha Quick MD PCP - General Internal Medicine 09/10/23 Molding Press Operator Relationship Specialty Start Date End Date Sangeetha Quick MD PCP - General Internal Medicine 09/10/23 Reason for Visit (unrecogniz ed section and [...] reclast Specialty Diagnoses / Procedures Referred By Machelle t Referred To Contact Diagnoses Age-related osteoporosis without current pathological fracture Procedures HI ZOLEDRONIC ACID 1MG HI INJECTION,THERAP/PROPH/DIAG NOST, IV PUSH, INITIAL DRUG Sangeetha Quick, DO [address] [place] [address] Phone: tel: fax: Alicia Gaston [facility] - Medical Oncology [address] [place] [address] Phone: tel: fax: Referral ID Status Reason Start Date Expiration Date V isits Requested Visits Authorized [id number] Authorized 12/31/2022 01/29/2025 1 1 Reason Comments Med Refill Reason Comments maw Reason Comments thyroid, vit d recheck Rash on arms 4 da ys Reason Comments Pain Reason Onset Date Comments Er Follow-up 10/26/2024 Reason Comments hospital d/c vomitting/ diarrhea FOR RECORDS PERTAINING TO PATIENTS WHO ARE [...] BE BASED ON THE PRIMARY CLINICAL RECORDS. [employer] [facility]. provides no warranty or guarantee of the accuracy or completeness of information in this document.
[2024-12-07 10:02] VITALS: BP 105/66; PULSE 72; TEMP 36.2; O2SAT 100
[2024-12-07 10:50] VITALS: BP 153/77; PULSE 72; O2SAT 99
[2024-12-07 10:51] VITALS: PULSE 74; O2SAT 100
[2024-12-07] MEDS: METHYLPREDNISOLONE ACETATE 40 MG/ML VIAL INJ (10:52)
[2024-12-07] MEDS: IOHEXOL 240 MG/ML - 10 ML VIAL 24 MG INJ (10:52)
[2024-12-07] MEDS: LIDOCAINE HCL 2% 400 MG/20 ML MDV INJ (10:52)
[2024-12-07] MEDS: BUPIVACAINE HCL 0.25% PF 25 MG/10 ML VIAL 2 ML INJ (10:52)
[2024-12-07 10:53] VITALS: BP 167/71
--- NOTE | 2024-12-07 10:56 | W.PM.PROCNOT ---
Date of procedure: 12/07/24 Pre-op diagnosis: Pain due to left sacroiliitis Post-op diagnosis: same as pre-op Procedure: Procedure: Left sacroiliac joint injection Medications: Bupivacaine 0.25% 4cc, depomedrol 40mg After informed consent was obtained, the patient was brought to the medical procedure unit and placed in the prone position, when a timeout was completed verifying correct patient, procedure, site, positioning, implant, and/or special equipment.? The skin overlying the area was prepped and draped in standard sterile fashion using alcohol.? A 25-gauge needle was inserted towards the left sacroiliac joint under direct fluoroscopic imaging.? Needle tip was advanced until the joint was encountered.? We instilled a total of 2 mL of solution.? Postoperatively needles were removed.? The patient tolerated the procedure well without complication.? The patient reported reduction in pain symptoms postoperatively. Anesthesia: Local Surgeon: Delmer You Pathology: none sent Condition: stable Disposition: no change
== END 2024-12-07 10:56 | disposition home or self-care (01) ==
PROVIDERS: PCP Internal Medicine; Visit Provider Anesthesiology
DX: M46.1 Sacroiliitis, not elsewhere classified (principal)
CPT/HCPCS: 27096; J0665; J1010; Q9966

== ENCOUNTER 2024-12-17 09:21 | Outpatient (OUT) | payer MEDICARE, SELFPAY ==
--- OUTSIDE RECORDS SUMMARY | 2024-12-17 09:24 | XMS_ITS | Encounter Summary ---
Author Organization [facility] tem Address [id number] [address] [place] [address] Care Team Providers Care Bottoming Room Supervisor Name Role Phone Rusty Newman DO Primary Care Provider [phone] Encounter Details Date Type Department Care Team (Late st Contact Info) Description 02/04/2024 Orders Only [facility] Internal Medicine - Family Medicine [address] [place] [address] Rusty Newman DO [address] [place] [address] Age-related osteoporosis without current pathological fracture (Primary [...] often do you attend chur ch or jewish services? More than 4 times per year 11/27/2022 Do you belong to any clubs o r organizations such as taoist groups, unions, fraternal or athletic groups, or [...] Answer Date Recorded Total Score 0 01/20/2024 [facility] of Occupat ional Health - [...] Recorded Do you need help finding a [facility] career center and/or a training [...] Internal Medicine - Family Medicine [address] [place] [address] documented as of this encounter Visit Diagnoses [...] documented as of this encounter Care Teams Bottoming Room Supervisor Relationship Specialty Start Date End Date Rusty Newman DO [address] [place] [address] PCP - General 11/09/13 documented as of this encounter
--- OUTSIDE RECORDS SUMMARY | 2024-12-17 09:25 | XMS_ITS | Encounter Summary ---
Author Organization [facility] [facility] tem Address [id number] [address] [place] [address] Care Team Providers Care Comber Fixer Name Role Phone Rusty Newman DO Primary Care Provider [phone] Encounter Details Date Type Department Care Team (Late st Contact Info) Description 12/13/2022 Orders Only [facility] Internal Medicine - Family Medicine [address] [place] [address] Rusty Newman DO [address] [place] [address] Postmenopausal bone loss (Primary Dx) Social History [...] any clubs o r organizations such as latter day groups, unions, fraternal or athletic groups, or [...] Answer Date Recorded Total Score 2 11/27/2022 [facility] [place] of Occupat ional Health - Occupational Stress [...] Medicine - Family Medicine [address] [place] [address] documented as of this encounter Results * [...] on 12/25/2022 6:14 PM Rusty Newman DO [facility] [place] Final Result documented in this [...] documented as of this encounter Care Teams Comber Fixer Relationship Specialty Start Date End Date Rusty Newman DO [address] [place] [address] PCP - General 11/09/13 documented as of this encounter
--- OUTSIDE RECORDS SUMMARY | 2024-12-17 09:25 | XMS_ITS | Encounter Summary ---
Author Organization [employer] [facility] tem Address [facility] [place]-[id number] [address] [place] [address] Care Team Providers Care Family Helper Name Role Phone Rusty Newman DO Primary Care Provider [phone] Reason for Referral * Consultation (Routine) - Closed Specialty Diagnoses / Procedures Referred By Contmonroe t Referred To Contact Orthopaedic Surgery / MED-SURG/ORTHOPEDICS Diagnoses Primary osteoarthritis of knees, bilateral Rusty Newman DO [address] [place] [address] Phone: tel: fax: Bala Mckeon Jr., DO [address] [place] [address] Phone: tel: fax: Referral ID Status Reason Start Date Expiration Date V isits Requested Visits Authorized [id number] Closed Specialty Services Required 08/22/2023 08/21/2024 1 1 Encounter Details Date Type Department Care Team (Late st Contact Info) Description 08/22/2023 Orders Only [facility] Internal Medicine - Family Medicine [address] [place] [address] Rusty Newman DO [address] [place] [address] Primary osteoarthritis of knees, bilateral (Primary Dx) [...] How often do you attend chur or mandaeism services? More than 4 times per year 11/27/2022 Do you belong to any clubs o r organizations such as zoroastrianism groups, unions, fraternal or athletic groups, or [...] Answer Date Recorded Total Score 0 07/25/2023 [facility] of Occupat ional Health [...] Do you need help finding a [facility] career [facility] and/or a training program? [...] Medicine - Family Medicine [address] [place] [address] Scheduled Referrals Name Type Priority Associated Diagnoses [...] documented as of this encounter Care Teams Family Helper Relationship Specialty Start Date End Date Rusty Newman DO [address] [place] [address] PCP - General 11/09/13 documented as of this encounter
--- OUTSIDE RECORDS SUMMARY | 2024-12-17 09:25 | XMS_ITS | Encounter Summary ---
Author Organization [facility] tem Address [facility] [place] [place]-[id number] [address] [place] [address] Care Team Providers Care Lap Grinder Name Role Phone Rusty Newman DO Primary Care Provider [phone] Encounter Details Date Type Department Care Team ([facility] Contact Info) Description 04/23/2022 Orders Only [facility] Internal Medicine - Family Medicine [address] [place] [address] Rusty Newman DO [address] [place] [address] Cobalamin deficiency (Primary Dx) Social History Tobacco [...] Upcoming Encounters Date Type Department Care Team ([facility] Contact Info) Description 03/02/2025 2:20 PM EST Office Visit [facility] Internal Medicine - Family Medicine [address] [place] [address] documented as of this encounter Visit Diagnoses [...] documented as of this encounter Care Teams Lap Grinder Relationship Specialty Start Date End Date Rusty Newman DO [address] [place] [address] PCP - General 11/09/13 documented as of this encounter
--- OUTSIDE RECORDS SUMMARY | 2024-12-17 09:25 | XMS_ITS | Encounter Summary ---
Author Organization [facility] tem Address [facility]-[id number] [address] [place] [address] Care Team Providers Care Senior Writer Name Role Phone Rusty Newman DO Primary Care Provider [phone] Encounter Details Date Type Department Care Team (Late st Contact Info) Description 11/06/2024 Results Follow-Up [facility] Internal Medicine - Family Medicine [address] [place] [address] Rusty Newman DO [address] [place] [address] X-ray spine lumbar 2 or 3 views Social History Tobacco Use Types Packs/Day Years Used Date Smoking Tobacco: Never Smokeless Tobacco: Never Alcohol Use Standard Drinks/Week Comments No 0 (1 standard drink = 0.6 oz pur e alcohol) [facility] Utilities Answer Date Recorded In the past 12 months has [employer] / [employer], gas, oil, or water [employer] threatened to shut off services in your [...] Answer Date Recorded Total Score 0 11/02/2024 [facility] - Occupational Stress Questionnaire Answer Date Recorded [...] Recorded Do you need help finding a [facility] career center and/or a training [...] Internal Medicine - Family Medicine [address] [place] [address] documented as of this encounter Visit Diagnoses Not on filedocumented in this encounter Additional Health Concerns Assessment Noted Time PHQ-9 Depression Total Score: 0 11/03/19 25 4:14 PM EDT documented as of this encounter Care Teams Senior Writer Relationship Specialty Start Date End Date Rusty Newman DO [address] [place] [address] PCP - General 11/09/13 documented as of this encounter
--- OUTSIDE RECORDS SUMMARY | 2024-12-17 09:25 | XMS_ITS | Encounter Summary ---
Author Organization [employer] [facility] tem Address [facility] [place]-[id number] [address] [place] [address] Care Team Providers Care Furniture Inspector Name Role Phone Rusty Newman DO Primary Care Provider [phone] Encounter Details Date Type Department Care Team (Late st Contact Info) Description 11/26/2022 Telephone [facility] Internal Medicine - Family Medicine [address] [place] [address] Dipika Sagastume CMA Social History Tobacco Use [...] often do you attend chur ch or restorationism services? More than 4 times per year 11/27/2022 Do you belong to any clubs o r organizations such as pentecostalism groups, unions, fraternal or athletic groups, or [...] Answer Date Recorded Total Score 2 11/27/2022 [facility] of Occupat ional Health - [...] 10:51 AM EDT Needs mammogram sent to [facility] documented in this encounter Plan of Treatment Upcoming Encounters Date Type Department Care Team (Late st Contact Info) Description 03/02/2025 2:20 PM EST Office Visit [facility] Internal Medicine - Family Medicine [address] [place] [address] documented as of this encounter Visit Diagnoses [...] documented as of this encounter Care Teams Furniture Inspector Relationship Specialty Start Date End Date Rusty Newman DO [address] [place] [address] PCP - General 11/09/13 documented as of this encounter
--- OUTSIDE RECORDS SUMMARY | 2024-12-17 09:25 | XMS_ITS | Encounter Summary ---
Author Organization [facility] tem Address [facility] [place]-[id number] [address] [place] [address] Care Team Providers Care Dial Mounter Name Role Phone Rusty Newman DO Primary Care Provider [phone] Encounter Details Date Type Department Care Team (Late st Contact Info) Description 04/10/2023 Orders Only [facility] Internal Medicine - Family Medicine [address] [place] [address] Lavern Rodriguez, AUTO DESIGN CHECKER-BROOM MAN [address] [place] [address] Osteoarthritis of left shoulder, unspecified osteoarthritis type [...] often do you attend chur ch or rastafarian services? More than 4 times per year 11/27/2022 Do you belong to any clubs o r organizations such as jain groups, unions, fraternal or athletic groups, or [...] Answer Date Recorded Total Score 0 03/19/2023 [employer] [place] of Occupat ional Health - Occupational Stress [...] Internal Medicine - Family Medicine [address] [facility] [place] [address] documented as of this encounter Procedures Procedure Name Priority Date/Time Associated Diagnosis Comments AMB REFERRAL TO PAIN MANAGEMENT Routine 04/10/2023 12:13 PM EST Osteoarthritis of left shoulder, unspecified osteoarthritis type documented in this encounter Results * Ambulatory referral to Pain Management ([facility]) (04/10/2023 12:13 PM EST) Lavern Rodriguez AUTO DESIGN CHECKER-BROOM MAN OUTPATIENT REFERRAL ORDERAB LES Final Result MANUALLY [...] documented as of this encounter Care Teams Dial Mounter Relationship Specialty Start Date End Date Rusty Newman DO [address] [place] [address] PCP - General 11/09/13 documented as of this encounter
--- OUTSIDE RECORDS SUMMARY | 2024-12-17 09:25 | XMS_ITS | Encounter Summary ---
Author Organization [facility] tem Address [facility]-[id number] [address] [place] [address] Care Team Providers Care Core Dropper Name Role Phone Rusty Newman DO Primary Care Provider [phone] Encounter Details Date Type Department Care Team (Late Contact Info) Description 04/25/2022 Orders Only [facility] Internal Medicine - Family Medicine [address] [place] [address] Rusty Newman DO [address] [place] [address] Cobalamin deficiency Social History Tobacco Use Types [...] Internal Medicine - Family Medicine [address] [place] [address] documented as of this encounter Visit Diagnoses [...] documented as of this encounter Care Teams Core Dropper Relationship Specialty Start Date End Date Rusty Newman DO [address] [place] [address] PCP - General 11/09/13 documented as of this encounter
--- OUTSIDE RECORDS SUMMARY | 2024-12-17 09:25 | XMS_ITS | Encounter Summary ---
Author Organization [facility] tem Address [facility] [place]-[id number] [address] [place] [address] Care Team Providers Care Supervisor Paper Testing Name Role Phone Rusty Newman Primary Care Provider [phone] Encounter Details Date Type Department Care Team (Late st Contact Info) Description 02/03/2024 Telephone [facility] Internal Medicine - Family Medicine [address] [place] [address] Fatoumata Chacko CMA Social History Tobacco Use [...] any clubs o r organizations such as spiritism groups, unions, fraternal or athletic groups, or [...] Answer Date Recorded Total Score 0 01/20/2024 [facility] of Occupat ional Health - Occupational Stress [...] Recorded Do you need help finding a [facility] career center and/or a training program? No [...] Internal Medicine - Family Medicine [address] [place] [address] documented as of this encounter Visit Diagnoses [...] as of this encounter Care Teams Supervisor Paper Testing Relationship Specialty Start Date End Date Rusty Newman DO [address] [place] [address] PCP - General 11/09/13 documented as of this encounter
--- OUTSIDE RECORDS SUMMARY | 2024-12-17 09:25 | XMS_ITS | Encounter Summary ---
Author Organization [facility] tem Address [facility] [place]-[id number] [address] [place] [address] Care Team Providers Care Client Delivery Specialist Name Role Phone Rusty Newman DO Primary Care Provider [phone] Encounter Details Date Type Department Care Team (Late st Contact Info) Description 06/18/2023 Orders Only [facility] Internal Medicine - Family Medicine [address] [place] [address] Rusty Newman DO [address] [place] [address] Social History Tobacco Use Types Packs/Day Years [...] any clubs o r organizations such as synagogue groups, unions, fraternal or athletic groups, or [...] Answer Date Recorded Total Score 0 05/30/2023 [facility] [place] of Occupat ional Health - Occupational Stress [...] Internal Medicine - Family Medicine [address] [place] [address] documented as of this encounter Visit Diagnoses [...] as of this encounter Care Teams Client Delivery Specialist Relationship Specialty Start Date End Date Rusty Newman DO [address] [facility] [place] [address] PCP - General 11/09/13 documented as of this encounter
--- OUTSIDE RECORDS SUMMARY | 2024-12-17 09:25 | XMS_ITS | Encounter Summary ---
Author Organization [facility] [employer] [facility] tem Address [facility][id number] [address] [place] [address] Care Team Providers Care Supervisor Accounts Receivable Name Role Phone Rusty Newman DO Primary Care Provider [phone] Encounter Details Date Type Department Care Team (Late st Contact Info) Description 01/01/2023 Orders Only [facility] Internal Medicine - Family Medicine [address] [place] [address] Rusty Newman DO [address] [place] [address] Social History Tobacco Use Types Packs/Day Years [...] any clubs o r organizations such as faith groups, unions, fraternal or athletic groups, or [...] Answer Date Recorded Total Score 0 12/31/2022 [facility] [place] of Occupat ional Health - Occupational Stress [...] - Family Medicine [address] [place] [address] documented as of this encounter Visit Diagnoses [...] as of this encounter Care Teams Supervisor Accounts Receivable Relationship Specialty Start Date End Date Rusty Newman DO [address] [place] [address] PCP - General 11/09/13 documented as of this encounter
--- OUTSIDE RECORDS SUMMARY | 2024-12-17 09:25 | XMS_ITS | Encounter Summary ---
Author Organization [facility] tem Address [facility]-[id number] [address] [place] [address] Care Team Providers Care Telescope Maintenance Name Role Phone Rusty Newman DO Primary Care Provider [phone] Reason for Visit * Reason Comments Med Refill Encounter Details Date Type Department Care Team (Late st Contact Info) Description 05/20/2023 Refill [facility] Internal Medicine - Family Medicine [address] [place] [address] Rusty Newman DO [address] [place] [address] Hypothyroidism; Hyperlipidemia, unspecified Social History Tobacco Use [...] often do you attend chur ch or pentecostalism services? More than 4 times per year [...] Answer Date Recorded Total Score 0 03/19/2023 [facility] of Occupat ional Health - [...] Recorded Do you need help finding a [facility] career [facility] and/or a training [...] Internal Medicine - Family Medicine [address] [place] [address] documented as of this encounter Visit Diagnoses [...] documented as of this encounter Care Teams Telescope Maintenance Relationship Specialty Start Date End Date Rusty Newman DO [address] [facility] [place] [address] PCP - General 11/09/13 documented as of this encounter
--- OUTSIDE RECORDS SUMMARY | 2024-12-17 09:25 | XMS_ITS | Encounter Summary ---
Author Organization [facility] tem Address [facility] [place]-[id number] [address] [place] [address] Care Team Providers Care Computer Technology Instructor Name Role Phone Rusty Newman DO Primary Care Provider [phone] Encounter Details Date Type Department Care Team (Late st Contact Info) Description 10/26/2024 Results Follow-Up [facility] - Emergency [address] [place] [phone] Libia Flores, RN GI Panel(stool pathogen panel) Social History Tobacco Use Types Packs/Day Years Used Date Smoking Tobacco: Never Smokeless Tobacco: Never Alcohol Use Standard Drinks/Week Comments No 0 (1 standard drink = 0.6 oz pur e alcohol) [facility] Utilities Answer Date Recorded In the [...] Answer Date Recorded Total Score 0 08/18/2024 [facility] - Occupational Stress Questionnaire Answer Date [...] Recorded Do you need help finding a [facility] and/or a training program? [...] Internal Medicine - Family Medicine [address] [place] [address] documented as of this encounter Visit Diagnoses Not on filedocumented in this encounter Additional Health Concerns Infection Onset Date Last Indicated Resolved Time Norovirus 10/23/2024 10/23/2024 10/27/2024 8:08 PM EDT Assessment Noted Time PHQ-9 Depression Total Score: 0 08/19/19 25 3:10 PM EDT documented as of this encounter Care Teams Computer Technology Instructor Relationship Specialty Start Date End Date Rusty Newman DO [address] [facility] [place] [address] PCP - General 11/09/13 documented as of this encounter
--- OUTSIDE RECORDS SUMMARY | 2024-12-17 09:25 | XMS_ITS | Encounter Summary ---
Author Organization [facility] tem Address [facility] [place]-[id number] [address] [place] [address] Care Team Providers Care Staff Design Engineer Name Role Phone Rusty Newman DO Primary Care Provider [phone] Encounter Details Date Type Department Care Team ([facility] Contact Info) Description 05/28/2022 Orders Only [facility] Internal Medicine - Family Medicine [address] [place] [address] Rusty Newman DO [address] [place] [address] Nontraumatic complete tear of right rotator cuff [...] Upcoming Encounters Date Type Department Care Team ([facility] st Contact Info) Description 03/02/2025 2:20 PM EST Office Visit [facility] Internal Medicine - Family Medicine [address] [place] [address] documented as of this encounter Visit Diagnoses [...] documented as of this encounter Care Teams Staff Design Engineer Relationship Specialty Start Date End Date Rusty Newman DO [address] [place] [address] PCP - General 11/09/13 documented as of this encounter
--- OUTSIDE RECORDS SUMMARY | 2024-12-17 09:25 | XMS_ITS | Encounter Summary ---
Author [facility] tem Address [id number] [address] [place] [address] Care Team Providers Care Speech And Language Tutor Name Role Phone Rusty Newman DO Primary Care Provider [phone] Encounter Details Date Type Department Care Team (Late st Contact Info) Description 10/01/2022 Telephone [facility] Internal Medicine - Family Medicine [address] [place] [address] Rusty Newmna DO [address] [place] [address] Social History Tobacco Use Types Packs/Day Years [...] to get a mammogram order faxed to [facility]. Thanks documented in this encounter Plan of Treatment Upcoming Encounters Date Type Department Care Team (Late st Contact Info) Description 03/02/2025 2:20 PM EST Office Visit [facility] Internal Medicine - Family Medicine [address] [place] [address] documented as of this encounter Visit Diagnoses [...] documented as of this encounter Care Teams Speech And Language Tutor Relationship Specialty Start Date End Date Rusty Newman DO [address] [facility] [address] PCP - General 11/09/13 documented as of this encounter
--- OUTSIDE RECORDS SUMMARY | 2024-12-17 09:25 | XMS_ITS | Encounter Summary ---
Author Organization [employer] [facility] tem Address [id number] [address] [place] [address] Care Team Providers Care Adjuster Piano Action Name Role Phone Rusty Newman DO Primary Care Provider [phone] Encounter Details Date Type Department Care Team ([facility] Contact Info) Description 05/25/2022 Orders Only [facility] Internal Medicine - Family Medicine [address] [place] [address] Salena Gandhi CMA Rotator cuff [...] Upcoming Encounters Date Type Department Care Team ([facility] Contact Info) Description 03/02/2025 2:20 PM EST [facility] [address] [place] [address] documented as of this encounter [...] documented as of this encounter Care Teams Adjuster Piano Action Relationship Specialty Start Date End Date Rusty Newman DO [address] [place] [address] PCP - General 11/09/13 documented as of this encounter
--- OUTSIDE RECORDS SUMMARY | 2024-12-17 09:25 | XMS_ITS | Encounter Summary ---
Author Organization [facility] tem Address [facility]-[id number] [address] [place] [address] Care Team Providers Care Superintendent Ammunition Storage Name Role Phone Rusty Newman DO Primary Care Provider [phone] Encounter Details Date Type Department Care Team ([facility] Contact Info) Description 10/01/2022 Orders Only [facility] Internal Medicine - Family Medicine [address] [place] [phone] Rusty Newman DO [address] [place] [address] Encounter for screening mammogram for malignant neoplasm [...] Upcoming Encounters Date Type Department Care Team ([facility] Contact Info) Description 03/02/2025 2:20 PM EST [facility] [address] [place] [address] documented as of this encounter Visit Diagnoses [...] documented as of this encounter Care Teams Superintendent Ammunition Storage Relationship Specialty Start Date End Date Rusty Newman DO [address] [place] [address] PCP - General 11/09/13 documented as of this encounter
--- OUTSIDE RECORDS SUMMARY | 2024-12-17 09:25 | XMS_ITS | Encounter Summary ---
Author Organization [facility] [employer] [facility] tem Address [id number] [address] [place] [address] Care Team Providers Care Explosives Detonator Name Role Phone Rusty Newman DO Primary Care Provider [phone] Encounter Details Date Type Department Care Team (Late st Contact Info) Description 05/31/2023 Orders Only [facility] Internal Medicine - Family Medicine [address] [place] [address] Rusty Newman DO [address] [place] [address] Hypothyroidism; Hyperlipidemia, unspecified Social History Tobacco Use [...] any clubs o r organizations such as hindu groups, unions, fraternal or athletic groups, or [...] Answer Date Recorded Total Score 0 05/30/2023 [facility] Occupat ional Health - Occupational Stress [...] Internal Medicine - Family Medicine [address] [place] [address] documented as of this encounter Visit Diagnoses [...] documented as of this encounter Care Teams Explosives Detonator Relationship Specialty Start Date End Date Rusty Newman DO [address] [place] [address] PCP - General 11/09/13 documented as of this encounter
--- OUTSIDE RECORDS SUMMARY | 2024-12-17 09:25 | XMS_ITS | Encounter Summary ---
Author Organization [facility] tem Address [facility] [id number] [address] [place] [address] Care Team Providers Care Endoscope Technician Name Role Phone Rusty Newman Primary Care Provider [phone] Encounter Details Date Type Department Care Team (Late st Contact Info) Description 02/04/2024 Telephone [facility] Internal Medicine - Family Medicine [address] [place] [phone] Salena Gandhi CMA Social History Tobacco Use [...] often do you attend chur ch or samaritan services? More than 4 times per year 11/27/2022 Do you belong to any clubs o r organizations such as yazdanism groups, unions, fraternal or athletic groups, or [...] Answer Date Recorded Total Score 0 01/20/2024 [facility] of Occupat ional Health - Occupational [...] Recorded Do you need help finding a [facility] and/or a training [...] they are going to check with their complaint investigations officer to see what needs to be done. It has not been released. * Telephone Encounter - Rusty Newman DO - 02/04/2024 8:39 AM EDT Message noted. documented in this encounter Plan of Treatment Upcoming Encounters Date Type Department Care Team (Late st Contact Info) Description 03/02/2025 2:20 PM EST Office Visit [facility] Internal Medicine - Family Medicine [address] [facility] [place] [place] [address] documented as of this encounter Visit Diagnoses [...] documented as of this encounter Care Teams Endoscope Technician Relationship Specialty Start Date End Date Rusty Newman DO [address] [place] [address] PCP - General 11/09/13 documented as of this encounter
--- OUTSIDE RECORDS SUMMARY | 2024-12-17 09:25 | XMS_ITS | Clinical Summary ---
Author Organization WhereverTV tem Address [id number] [address] [place] [address] Care Team Providers Care Manager Endoscopy Name Role Phone Rusty Newman Primary Care Provider [phone] Allergies Active Allergy Reactions Criticality Noted Date [...] WEEKLY 12 capsule 3 02/25/20 24 Active tiZANidine (ZANAFLEX) 4 mg capsuleIndications :muscle [...] MORNING 90 tablet 1 11/19/19 25 Active rosuvastatin (CRESTOR) 10 mg tabletIndications: Hyperlipidemia, unspecified TAKE 1 TABLET BY MOUTH EVERY DAY 90 tablet 1 12/09/19 25 Active cyanocobalamin (vitamin B-12) 1000 MCG tabletIndications: Cobalamin deficiency Take 1 tablet (1,000 mcg total) by mouth in the morning. 90 tablet 1 05/20/19 25 025 Discontinued rosuvastatin (CRESTOR) 10 mg tabletIndications: Hyperlipidemia, unspecified TAKE 1 TABLET BY MOUTH EVERY DAY 90 tablet 1 06/09/19 25 025 Discontinued traMADoL (ULTRAM) 50 mg [...] Encounters Date Type Department Care Team Description 12/08/2024 Refill [facility] Internal Medicine - Family Medicine [address] [place] [address] Rusty Newman, Hyperlipidemia, unspecified 11/18/2024 Refill [facility] Internal [facility] Medicine [address] [place] [address] Rusty Newman, Cobalamin deficiency 11/10/[address] [facility] [address] [place] [address] Rusty Newman, Degenerative lumbar spinal stenosis (Primary Dx) 11/06/2024 Results Follow-Up [facility] Phys[facility] [address] [place] [address] Rusty Newman, X-ray spine lumbar 2 or 3 views 11/05/2024 Telephone [facility] [address] [place] [address] Salena Gandhi CMA 11/03/2024 12:45 PM EDT - 11/03/2024 11:59 PM EDT Hospital Encounter [facility] - Radiology [address] [place] [address] Rusty Newman, Degenerative lumbar spinal stenosis Discharge Disposition: Home 11/02/2024 4:15 PM EDT Office Visit [facility] [address] [place] [address] Rusty Newman, Gastroenteritis due to norovirus (Primary Dx); Degenerative lumbar spinal stenosis; Hiatal hernia; 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 Travel 10/26/2024 Results Follow-Up [facility] - Emergency [address] [place] [id number] Libia Flores RN GI Panel(stool pathogen panel) 10/26/2024 Telephone [facility] [address] [place] [address] Marcia Holder CMA Er Follow-up 10/23/2024 8:18 AM EDT - 10/23/2024 12:43 PM EDT Emergency [facility] - Emergency [address] [place] [address] Kasie Mosley MD Nausea vomiting and diarrhea (Primary Dx); Acute cystitis without hematuria Discharge Disposition: Home 10/23/2024 Travel from Last 3 Months Immunizations Immunization Administration [...] drink = 0.6 oz pur e alcohol) [facility] Utilities Answer Date Recorded In the past 12 months has e [employer], gas, oil, or water [employer] threatened to shut off services in [...] How often do you attend chur or caodaism services? More than 4 times per year 11/27/2022 Do you belong to any clubs o r organizations such as roman catholic groups, unions, fraternal or athletic groups, or [...] Answer Date Recorded Total Score 0 11/02/2024 [facility] - Occupational [...] Recorded Do you need help finding a [facility] career center and/or a training [...] Medicine - Family Medicine [address] [place] [address] Health Maintenance Due Date Last Done Comments Zoster (Shingles) Vaccine (1 of 2) 12/20/1997 DTaP,Tdap and Td Vaccines (2 - Td or Tdap) 05/21/2024 05/21/2014 COVID-19 Vaccine (5 - 4-2 5 season) 2024 01/20/2024, 01/12/2021, 07/14/2020, Additional [...] on 11/05/2024 10:41 PM Rusty Newman DO [facility] ORDERABLE S Final Result * (ABNORMAL) POCT Nursing Urine Macroscopic UA (10/23/2024 9:59 AM EDT) POC Urine Specific Globe 1.020 1.010, 1.015, 1.020, 1.025 10/23/2024 9:52 AM EDT [facility] POC Urine Leukocyte Esterase Negative Negative 10/23/2024 9:52 AM EDT [facility] POC Urine Nitrite Positive(A) Negative 10/23/2024 9:52 AM EDT [facility] POC Urine pH 7.0 5.0, 6.0, 6.5, 7.0, 7.5, 8.0, 8.5, 5.5 10/23/2024 9:52 AM EDT [facility] POC Urine Protein Trace(A) Negative 10/23/2024 9:52 AM EDT [facility] POC Urine Glucose Negative Negative 10/23/2024 9:52 AM EDT [facility] POC Urine Ketones 15 mg/dL(A) Negative 10/23/2024 9:52 AM EDT [facility] POC Urine Urobilinogen 0.2 E.U./dL 10/23/2024 9:52 AM EDT [facility] POC Urine Bilirubin Negative Negative 10/23/2024 9:52 AM EDT [facility] POC Urine Blood/HGB Trace(A) Negative 10/23/2024 9:52 AM EDT [facility] Urine 10/23/2024 9:59 AM EDT 10/23/2024 9:52 AM EDT us Kasie Mosley MD POINT OF CARE TEST ORDERABLES Final Result [facility] [address] [facility] [place] [address], * Extra Urine Culture (10/23/2024 9:48 AM EDT) Extra Tube Auto Resulted 10/23/2024 12:02 PM EDT [facility] Urine Urine specimen collection, clean catch / Unknown 10/23/2024 9:48 AM EDT 10/23/2024 11:03 AM EDT us Kasie Mosley MD URINE ORDERABLES Final Result [facility] [address] [place] [address], [place] * (ABNORMAL) GI Panel(stool pathogen panel) (10/23/2024 9:48 AM EDT) CAMPYLOBACTER Not Detected Not Detected 10/23/2024 3:11 PM EDT [facility] PLESIOMONAS Not Detected Not Detected 10/23/2024 3:11 PM EDT [facility] SALMONELLA Not Detected Not Detected 10/23/2024 3:11 PM EDT [facility] VIBRIO Not Detected Not Detected 10/23/2024 3:11 PM EDT [facility] VIBRIO CHOLERAE Not Detected Not Detected 10/23/2024 3:11 PM EDT [facility] Y. ENTEROCOLITICA Not Detected Not Detected 10/23/2024 3:11 PM EDT [facility] AGGREGATIVE E COLI Not Detected Not Detected 10/23/2024 3:11 PM EDT [facility] PATHOGENIC E COLI Not Detected Not Detected 10/23/2024 3:11 PM EDT [facility] TOXIGENIC E COLI Not Detected Not Detected 10/23/2024 3:11 PM EDT [facility] SHIGA TOXIN E COLI Not Detected Not Detected 10/23/2024 3:11 PM EDT [facility] SHIGELLA-E COLI Not Detected Not Detected 10/23/2024 3:11 PM EDT [facility] CRYPTOSPORIDIUM Not Detected Not Detected 10/23/2024 3:11 PM EDT [facility] CYCLOSPORA Not Detected Not Detected 10/23/2024 3:11 PM EDT [facility] E HISTOLYTICA Not Detected Not Detected 10/23/2024 3:11 PM EDT [facility] GIARDIA LAMBLIA Not Detected Not Detected 10/23/2024 3:11 PM EDT [facility] ADENOVIRUS Not Detected Not Detected 10/23/2024 3:11 PM EDT [facility] ASTROVIRUS Not Detected Not Detected 10/23/2024 3:11 PM EDT [facility] NOROVIRUS Detected(A) Not Detected 10/23/2024 3:11 PM EDT [facility] Comment:Detects the followin g: Norovirus Genogroups I, II. The subway conductor has reported an increase in false positive Norovirus results. If the positive test is inconsistent with clinical presentation, a secondary method should be used to confirm the results. ROTAVIRUS A Not Detected Not Detected 10/23/2024 3:11 PM EDT [facility] SAPOVIRUS Not Detected Not Detected 10/23/2024 3:11 PM EDT [facility] Stool Feces / Unknown 10/23/2024 9 :48 AM EDT 10/23/2024 11:03 AM EDT Kasie Mosley MD BODY FLUIDS AND STOOLS ORDERA BLES Final Result [facility] [address] [place] [address], [place] [phone] * Extra Urine (10/23/2024 9:48 AM EDT) Extra Tube Auto Resulted 10/23/2024 12:02 PM EDT [facility] Urine Urine specimen collection, clean catch / Unknown 10/23/2024 9:48 AM EDT 10/23/2024 11:03 AM EDT Kasie Mosley MD URINE ORDERABLES Final Result [facility] [address] [place] [address], [place] * CT abdomen and pelvis without [...] on 10/23/2024 10:12 AM Kasie Mosley MD IMG CT ORDERABLES Final Resul t * SARS/FLU A+B/RSV by NAAT/Molecular (M4RT Collection Tube) (10/23/2024 9:17 AM EDT) Pathologist [facility] FLU A PCR Negative Negative 10/23/2024 10:09 AM EDT [facility] FLU B PCR Negative Negative 10/23/2024 10:09 AM EDT [facility] RSV BY PCR Negative Negative 10/23/2024 10:09 AM EDT [facility] SARS COV 2 BY PCR Not Detected Not Detected 10/23/2024 10:09 AM EDT [facility] Swab Nasopharyngeal structure / Unknown 10/23/2024 9:17 AM EDT 10/23/2024 9:27 AM EDT [facility] - 10/23/2024 10:09 AM EDT The Xpert [...] operators who are performing tests using either [employer] DX or Admittor systems and is limited to laboratories that [...] specimen repeat. Fact Sheet for Healthcare Providers: https://www.fda.gov/media/949027/download Fact Sheet for Patients: https://www.fda.gov/media/936495/download us Kasie Mosley MD MICROBIOLOGY - GENERAL [facility] Final Result [facility] [address] [place] [address], * (ABNORMAL) CBC auto differential (10/23/2024 9:03 AM EDT) WBC 13.4(H) 4 - 11 x10E9/L 10/23/2024 9:25 AM EDT [facility] RBC Count 4.38 3.8 - 5.2 X10E12/L 10/23/2024 9:25 AM EDT [facility] Hemoglobin 12.4 11.7 - 15.5 g/dL 10/23/2024 9:25 AM EDT [facility] Hematocrit 37.5 35 - 47 % 10/23/2024 9:25 AM EDT [facility] MCV 86 80 - 100 fL 10/23/2024 9:25 AM EDT [facility] MCH 28.4 27 - 34 pg 10/23/2024 9:25 AM EDT [facility] MCHC 33.2 32 - 36 g/dL 10/23/2024 9:25 AM EDT [facility] RDW 15.0 11.5 - 15 % 10/23/2024 9:25 AM EDT [facility] Platelet Count 275 150 - 450 X10E9/L 10/23/2024 9:25 AM EDT [facility] MPV 9.2 7 - 12 fL 10/23/2024 9:25 AM EDT [facility] Neutrophils % 89.7 % 10/23/2024 9:25 AM EDT [facility] Lymphocytes % 5.8 % 10/23/2024 9:25 AM EDT [facility] Monocytes % 4.1 % 10/23/2024 9:25 AM EDT [facility] Eosinophils % 0.2 % 10/23/2024 9:25 AM EDT [facility] Basophils % 0.2 % 10/23/2024 9:25 AM EDT [facility] Neutrophils Absolute (A) 12.1(H) 1.5 - 6.6 10*3/uL 10/23/2024 9:25 AM EDT [facility] Lymphocytes Absolute 0.8(L) 1.0 - 3.5 10*3/uL 10/23/2024 9:25 AM EDT [facility] Monocytes Absolute 0.6 0.0 - 0.9 10*3/uL 10/23/2024 9:25 AM EDT [facility] Eosinophils Absolute 0.0 0.0 - 0.4 10*3/uL 10/23/2024 9:25 AM EDT [facility] Basophils Absolute 0.0 0.0 - 0.2 10*3/uL 10/23/2024 9:25 AM EDT [facility] Differential Type AUTOMATED DIFFERENTIAL 10/23/2024 9:25 AM EDT [facility] Blood Venous blood / Unknown Venipuncture / Unknown 10/23/2024 9:03 AM EDT 10/23/2024 9:10 AM EDT us Kasie Mosley MD LAB BLOOD ORDERABLES Final Re sult Performing Organization Address [facility] Co de Phone Number [address] [place] [address], [place] * Magnesium (10/23/2024 9:03 AM EDT) MAGNESIUM 1.8 1.8 - 2.6 mg/dL 10/23/2024 9:30 AM EDT [facility] Blood Venous blood / Unknown Venipuncture / Unknown 10/23/2024 9:03 AM EDT 10/23/2024 9:10 AM EDT us Kasie Mosley MD LAB BLOOD ORDERABLES Final Re sult Performing Organization Address [facility] Co de Phone Number [address] [place] [address], [place] * Lipase (10/23/2024 9:03 AM EDT) LIPASE 28 17 - 40 U/L 10/23/2024 9:27 AM EDT [facility] Blood Venous blood / Unknown Venipuncture / Unknown 10/23/2024 9:03 AM EDT 10/23/2024 9:10 AM EDT us Kasie Mosley MD LAB BLOOD ORDERABLES Final Re sult Performing Organization Address City/[facility] Co de Phone Number [address] [place] [address], [place] * (ABNORMAL) Comprehensive metabolic panel (10/23/2024 9:03 AM EDT) SODIUM 138 134 - 146 mmol/L 10/23/2024 9:30 AM EDT [facility] POTASSIUM 3.7 3.5 - 5.0 mmol/L 10/23/2024 9:30 AM EDT [facility] CHLORIDE 106 98 - 109 mmol/L 10/23/2024 9:30 AM EDT [facility] CARBON DIOXIDE 23 22 - 32 mmol/L 10/23/2024 9:30 AM EDT [facility] ANION GAP 9 5 - 15 mmol/L 10/23/2024 9:30 AM EDT [facility] BLOOD UREA NITROGEN 18 5 - 27 mg/dL 10/23/2024 9:30 AM EDT [facility] CREATININE 0.62 0.40 - 1.00 mg/dL 10/23/2024 9:30 AM EDT [facility] Comment:METHOD TRACEABLE TO IDMS STANDARD GLUCOSE 142(H) 65 - 99 mg/dL 10/23/2024 9:30 AM EDT [facility] CALCIUM 8.6 8.5 - 10.5 mg/dL 10/23/2024 9:30 AM EDT [facility] TOTAL PROTEIN 7.4 6.0 - 8.0 g/dL 10/23/2024 9:30 AM EDT [facility] ALBUMIN 4.4 3.2 - 5.3 g/dL 10/23/2024 9:30 AM EDT [facility] ALKALINE PHOSPHATASE 59 39 - 130 U/L 10/23/2024 9:30 AM EDT [facility] AST 18 <=41 U/L 10/23/2024 9:30 AM EDT [facility] ALT 16 <=31 U/L 10/23/2024 9:30 AM EDT [facility] BILIRUBIN,TOTAL 0.6 0.3 - 1.2 mg/dL 10/23/2024 9:30 AM EDT [facility] EGFR Non-Race Dependent >90 >=60 ml/min/1.7 3sq.m 10/23/2024 9:30 AM EDT [facility] Comment: eGFR not reported due to non-numeric value for Creatinine. Reported eGFR is based on the CKD-EPI 2020 equation that does not use a race coefficient. Blood Venous blood / Unknown Venipuncture / Unknown 10/23/2024 9:03 AM EDT 10/23/2024 9:10 AM EDT us Kasie Mosley MD LAB BLOOD ORDERABLES Final Re sult [facility] [address] [place] [address] [place] [address], * Light Blue Top (10/23/2024 9:02 AM EDT) Extra Tube Auto Resulted 10/23/2024 11:01 AM EDT [facility] Blood Venous blood / Unknown 10/23/2024 9:02 AM EDT 10/23/2024 9:12 AM EDT us Kasie Mosley MD LAB BLOOD ORDERABLES Final Re sult Performing Organization Address City/[facility] Co de Phone Number [place] [phone] [facility] [place] [address], from Last 3 Months Insurance MEDICARE [facility]LY [facility] Care Teams Manager Endoscopy Relationship Specialty Start Date End Date Rusty Newman DO [address] [id number] PCP - General 11/09/13
--- OUTSIDE RECORDS SUMMARY | 2024-12-17 09:25 | XMS_ITS | Encounter Summary ---
Author Organization [facility] tem Address [id number] [address] [place] [address] Care Team Providers Care Vault Maker Name Role Phone Rusty Newman DO Primary Care Provider [phone] Reason for Visit * Reason Comments Med Refill Encounter Details Date Type Department Care Team (Late st Contact Info) Description 05/23/2022 Refill [facility] Internal Medicine - Family Medicine [address] [place] [address] Rusty Newman DO [address] [place] [address] Left cervical radiculopathy Social History Tobacco Use [...] Internal Medicine - Family Medicine [address] [place] [address] documented as of this encounter Visit Diagnoses [...] documented as of this encounter Care Teams Vault Maker Relationship Specialty Start Date End Date Rusty Newman DO [address] [place] [address] PCP - General 11/09/13 documented as of this encounter
--- OUTSIDE RECORDS SUMMARY | 2024-12-17 09:25 | XMS_ITS | Encounter Summary ---
Author Organization [facility] tem Address [id number] [address] [place] [address] Care Team Providers Care Casing Splitter Name Role Phone Rusty Newman DO Primary Care Provider Reason for Visit * Reason Comments Med Refill Encounter Details Date Type Department Care Team (Late st Contact Info) Description 11/29/2022 Refill [facility] Internal Medicine - Family Medicine [address] [place] [address] Rusty Newman DO [address] [place] [address] Vitamin D deficiency, unspecified Social History Tobacco [...] often do you attend chur ch or mosque services? More than 4 times per year 11/27/2022 Do you belong to any clubs o r organizations such as judaism groups, unions, fraternal or athletic groups, or [...] Answer Date Recorded Total Score 2 11/27/2022 [facility] Occupat ional Health - [...] Internal Medicine - Family Medicine [address] [place] [address] documented as of this encounter Visit Diagnoses [...] documented as of this encounter Care Teams Casing Splitter Relationship Specialty Start Date End Date Rusty Newman DO [address] [facility] [address] [address] PCP - General 11/09/13 documented as of this encounter
--- OUTSIDE RECORDS SUMMARY | 2024-12-17 09:25 | XMS_ITS | Encounter Summary ---
Author Organization [facility] s tem Address [facility] [id number] [address] [place] [address] Care Team Providers Care Fermenting Cellars Supervisor Name Role Phone Rusty Newman DO Primary Care Provider [phone] Reason for Visit * Reason Comments Med Refill Encounter Details Date Type Department Care Team (Late st Contact Info) Description 12/08/2024 Refill [facility] Internal Medicine - Family Medicine [address] [place] [address] Rusty Newman DO [address] [place] [address] Hyperlipidemia, unspecified Social History Tobacco Use Types Packs/Day Years Used Date Smoking Tobacco: Never Smokeless Tobacco: Never Alcohol Use Standard Drinks/Week Comments No 0 (1 standard drink = 0.6 oz pur e alcohol) [facility] Utilities Answer Date Recorded In the past 12 months has [employer], gas, oil, or water [employer] threatened to shut off services in your [...] How often do you attend chur or episcopal services? More than 4 times per year 11/27/2022 Do you belong to any clubs o r organizations such as restorationist groups, unions, fraternal or athletic groups, or [...] Answer Date Recorded Total Score 0 11/02/2024 [facility] of Occupat ional Health - [...] Recorded Do you need help finding a [facility] career center and/or a training program? [...] Internal Medicine - Family Medicine [address] [place] [address] documented as of this encounter Visit Diagnoses Diagnosis Hyperlipidemia, unspecified documented in this encounter Additional Health Concerns Assessment Noted Time PHQ-9 Depression Total Score: 0 11/03/19 25 4:14 PM EDT documented as of this encounter Care Teams Fermenting Cellars Supervisor Relationship Specialty Start Date End Date Rusty Newman DO [address] [place] [address] PCP - General 11/09/13 documented as of this encounter
--- OUTSIDE RECORDS SUMMARY | 2024-12-17 09:25 | XMS_ITS | Encounter Summary ---
Author Organization [employer] s tem Address [id number] [address] [place] [address] Care Team Providers Care Roll Edge Stitcher Hand Name Role Phone Rusty Newman Primary Care Provider [phone] Encounter Details Date Type Department Care Team (Late st Contact Info) Description 05/25/2024 Telephone [facility] Internal Medicine - Family Medicine [address] [place] [phone] Mary Beth Osman CMA Social History Tobacco Use Types Packs/Day Years Used Date Smoking Tobacco: Never Smokeless Tobacco: Never Alcohol Use Standard Drinks/Week Comments No 0 (1 standard drink = 0.6 oz pur e alcohol) [facility] Utilities Answer Date Recorded In the past 12 months has [employer], gas, oil, or water company threatened [...] often do you attend chur ch or alevism services? More than 4 times per year 11/27/2022 Do you belong to any clubs o r organizations such as jehovah's witness groups, unions, fraternal or athletic groups, or [...] Answer Date Recorded Total Score 0 05/19/2024 [facility] of Occupat ional Health - Occupational Stress [...] - Family Medicine [address] [place] [address] documented as of this encounter Visit Diagnoses [...] documented as of this encounter Care Teams Roll Edge Stitcher Hand Relationship Specialty Start Date End Date Rusty Newman DO [address] [place] [address] PCP - General 11/09/13 documented as of this encounter
--- OUTSIDE RECORDS SUMMARY | 2024-12-17 09:25 | XMS_ITS | Encounter Summary ---
Author Organization [facility] tem Address [id number] [address] [place] [address] Care Team Providers Care Oil Laboratory Analyst Name Role Phone Rusty Newman DO Primary Care Provider [phone] Encounter Details Date Type Department Care Team (Late st Contact Info) Description 11/10/2024 Orders Only [facility] Internal Medicine - Family Medicine [address] [place] [address] Rusty Newman DO [address] [place] [address] Degenerative lumbar spinal stenosis (Primary Dx) Social History Tobacco Use Types Packs/Day Years Used Date Smoking Tobacco: Never Smokeless Tobacco: Never Alcohol Use Standard Drinks/Week Comments No 0 (1 standard drink = 0.6 oz pur e alcohol) [facility] Utilities Answer Date Recorded In the past 12 months has [employer], gas, oil, or water company threatened to [...] How often do you attend chur or zoroastrian services? More than 4 times [...] Answer Date Recorded Total Score 0 11/02/2024 [facility] - Occupational Stress Questionnaire Answer [...] Recorded Do you need help finding a [facility] career center and/or a training program? [...] Internal Medicine - Family Medicine [address] [place] [address] documented as of this encounter Visit Diagnoses Diagnosis Degenerative lumbar spinal stenosis- Primary Spinal stenosis of lumbar region documented in this encounter Additional Health Concerns Assessment Noted Time PHQ-9 Depression Total Score: 0 11/03/19 25 4:14 PM EDT documented as of this encounter Care Teams Oil Laboratory Analyst Relationship Specialty Start Date End Date Rusty Newman DO [address] [place] [address] PCP - General 11/09/13 documented as of this encounter
--- OUTSIDE RECORDS SUMMARY | 2024-12-17 09:25 | XMS_ITS | Encounter Summary ---
Author Organization [facility] tem Address [facility] [place]-[id number] [address] [place] [address] Care Team Providers Care Polysom Tech Name Role Phone Rusty Newman DO Primary Care Provider [phone] Encounter Details Date Type Department Care Team (Late st Contact Info) Description 11/26/2022 Orders Only [facility] Internal Medicine - Family Medicine [address] [place] [address] Rusty Newman DO [address] [place] [address] Encounter for screening mammogram for malignant neoplasm [...] any clubs o r organizations such as quaker groups, unions, fraternal or athletic groups, or [...] Answer Date Recorded Total Score 2 11/27/2022 [facility] of Occupat ional Health - [...] Medicine - Family Medicine [address] [place] [address] Scheduled Orders Name Type Priority Associated Diagnoses [...] documented as of this encounter Care Teams Polysom Tech Relationship Specialty Start Date End Date Rusty Newman DO [address] [place] [address] PCP - General 11/09/13 documented as of this encounter
--- OUTSIDE RECORDS SUMMARY | 2024-12-17 09:25 | XMS_ITS | Encounter Summary ---
Author Organization [email or web address] tem Address [facility] [id number] [address] [place] [address] Care Team Providers Care Electric Furnace Operator Name Role Phone Rusty Newman DO Primary Care Provider [phone] Encounter Details Date Type Department Care Team (Late st Contact Info) Description 02/04/2024 Documentation Alicia Gaston [facility] - Medical Oncology [address] [place] [address] Marianna Flynn RN Social History [...] often do you attend chur ch or judaism services? More than 4 times per year [...] Answer Date Recorded Total Score 0 01/20/2024 [facility] of Occupat ional Health - Occupational [...] Recorded Do you need help finding a [facility] and/or a training [...] - Family Medicine [address] [place] [address] Scheduled Orders Name Type Priority Associated Diagnoses [...] documented as of this encounter Care Teams Electric Furnace Operator Relationship Specialty Start Date End Date Rusty Newman DO [address] [facility] [place] [address] PCP - General 11/09/13 documented as of this encounter
--- OUTSIDE RECORDS SUMMARY | 2024-12-17 09:25 | XMS_ITS | Encounter Summary ---
Author Organization [facility] [employer] tem Address [id number] [address] 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
--- OUTSIDE RECORDS SUMMARY | 2024-12-17 09:25 | XMS_ITS | Encounter Summary ---
Author Organization [employer] [facility] tem Address [facility]-[id number] [address] [place] [address] Care Team Providers Care Tech Intern Name Role Phone Rusty Newman DO Primary Care Provider [phone] Encounter Details Date Type Department Care Team (Late st Contact Info) Description 06/18/2023 Telephone [facility] Internal Medicine - Family Medicine [address] [place] [address] Rusty Newman DO [address] [place] [address] Social History Tobacco Use Types Packs/Day Years [...] often do you attend chur ch or yarsani services? More than 4 times per year [...] Answer Date Recorded Total Score 0 05/30/2023 [facility] [place] of Occupat ional Health - Occupational Stress [...] (except Saturday) * Telephone Encounter - Natalia Gusman - 06/18/2023 12:30 PM EST She said [...] Internal Medicine - Family Medicine [address] [place] [address] documented as of this encounter Visit Diagnoses [...] documented as of this encounter Care Teams Tech Intern Relationship Specialty Start Date End Date Rusty Newman DO [address] [facility] [place] [address] PCP - General 11/09/13 documented as of this encounter
--- OUTSIDE RECORDS SUMMARY | 2024-12-17 09:25 | XMS_ITS | Encounter Summary ---
Author Organization [facility] Address [address] [place] [address] Care Team Providers Care Cranberry Farm Supervisor Name Role Phone Rusty Newman MD Primary Care Provider [phone] Encounter Details Date Type Department Care Team (Late st Contact Info) Description 08/14/2024 Orders Only [facility] [address] [place] [address] Rosina Fleming NP [address] [place] [address] Social History Tobacco Use Types Packs/Day Years [...] as of this encounter Plan of Treatment Not on file documented as of this encounter Procedures Procedure Name Priority Date/Time Associated Diagnosis Comments MRI SHOULDER RT WOUT CONTRAST Routine 08/14/2024 2:20 PM EDT documented in this encounter Results * MRI SHOULDER RT WOUT CONTRAST (08/14/2024 2:20 PM EDT) Anatomical Region Laterality Modality Radiographic Ewelina ging Rosina Fleming NP IMG XR PROCEDURES Final Result documented in this encounter Visit Diagnoses Not on filedocumented in this encounter Care Teams Cranberry Farm Supervisor Relationship Specialty Start Date End Date Rusty Newman MD PCP - General Internal Medicine 09/10/23 documented as of this encounter
--- OUTSIDE RECORDS SUMMARY | 2024-12-17 09:25 | XMS_ITS | Encounter Summary ---
Author Organization [employer] tem Address [facility]-[id number] [address] [place] [address] Care Team Providers Care Care Assistant Name Role Phone Rusty Newman DO Primary Care Provider [phone] Encounter Details Date Type Department Care Team (Late st Contact Info) Description 05/01/2022 Telephone [facility] Internal Medicine - Family Medicine [address] [place] [address] Salena Gandhi CMA Social History Tobacco Use [...] and can not take her MRI at [facility] because it is not an open scan. She said she would like it sent to [facility] because she has been there before and she was fine with theirs. documented in this encounter Plan of Treatment Upcoming Encounters Date Type Department Care Team (Late st Contact Info) Description 03/02/2025 2:20 PM EST Office Visit [facility] Medicine - Family Medicine [address] [place] [address] documented as of this encounter Visit Diagnoses [...] documented as of this encounter Care Teams Care Assistant Relationship Specialty Start Date End Date Rusty Newman DO [address] [place] [address] PCP - General 11/09/13 documented as of this encounter
--- OUTSIDE RECORDS SUMMARY | 2024-12-17 09:25 | XMS_ITS | Encounter Summary ---
Author Organization [facility] [employer] tem Address [facility]-[id number] [address] [place] [address] Care Team Providers Care Maintenance Job Titles Name Role Phone Rusty Newman DO Primary Care Provider [phone] Encounter Details Date Type Department Care Team (Late st Contact Info) Description 09/09/2024 Orders Only [facility] Internal Medicine - Family Medicine [address] [place] [address] Ref Prov, [place] [address] Social History Tobacco Use Types Packs/Day Years Used Date Smoking Tobacco: Never Smokeless Tobacco: Never Alcohol Use Standard Drinks/Week Comments No 0 (1 standard drink = 0.6 oz pur e alcohol) [facility] Utilities Answer Date Recorded In the [...] often do you attend chur ch or mandaen services? More than 4 times per year [...] Answer Date Recorded Total Score 0 08/18/2024 [facility] of Occupat ional [...] Recorded Do you need help finding a [facility] career [facility] and/or a training program? [...] Internal Medicine - Family Medicine [address] [facility] [place] [address] documented as of this encounter [...] documented as of this encounter Care Teams Maintenance Job Titles Relationship Specialty Start Date End Date Rusty Newman DO [address] [place] [address] PCP - General 11/09/13 documented as of this encounter
--- OUTSIDE RECORDS SUMMARY | 2024-12-17 09:25 | XMS_ITS | Clinical Summary ---
Author Organization [facility] Address [address] [place] [address] Care Team Providers Care Public Policy Manager Name Role Phone Rusty Newman MD Primary Care Provider [phone] Allergies Active Allergy Reactions Criticality Noted Date [...] 03/19/2023 Active ergocalciferol (Vitamin D2) 1.25 MG (97420 UT) capsule TAKE 1 CASPULE BY MOUTH ONCE TIME PER WEEK Active cholecalciferol (Vitamin D-3) 1.25 MG (46544 UT) capsule Take 1 capsule by mouth 1 (one) time per week 05/22/2023 Active acetaminophen (Tylenol 8 Hour) 650 MG ER tablet Take 650 mg by mouth in the morning. Active Active Problems No known active problems Encounters Date Type Department Care Team Description 10/21/2024 10:15 AM EDT Office Visit [facility] [address] [place] [address] Jr. Bala Mckeon, Acute pain of right shoulder (Primary Dx); Rotator cuff arthropathy, right 10/21/2024 Bamboo flowsheet [facility] [address] [place] [address] Jr. Bala Mckeon DO 10/21/2024 Travel from Last 3 Months Social History [...] 09/10/2023 10:35 AM EDT Plan of Treatment Health Maintenance Due Date Last Done Comments Influenza Vaccine (#1) 2024 , 01/22/2022, 04/24/2017, Additional history exists Pneumococcal Vaccine: 65+ Years Completed 01/15/2022, 03/15/2016, 01/05/2015, Additional history exists Mammogram Discontinued 12/26/2023, 12/14, 04/24/2021, Additional history exists Procedures Procedure Name Priority Date/Time Associated Diagnosis Comments [place] ARTHROCENTESIS ASPIR&/INJ MAJOR JT/BURSA W/O US Routine 10/21/2024 10:48 AM EDT Acute pain of right shoulder from Last 3 Months Results * [place] ARTHROCENTESIS ASPIR&/INJ MAJOR JT/BURSA W/O US (10/21/2024 10:48 AM EDT) Jr. Bala Nichols, - 10/21/2024 10:48 AM EDT Jr. Bala Mckeon, DO 10/31/2024 4:18 PM L Inj/Asp: R subacromial bursa on 10/21/2024 10:48 AM Indications: pain Details: 21 G needle, posterior approach Medications: 40 mg methylPREDNISolone acetate 40 MG/ML Outcome: tolerated well, no immediate complications SKIN PREPPED WITH ISOPROPYL ALCOHOL Procedure, treatment alternatives, risks and benefits explained, specific risks discussed. Consent was given by the patient. Jr. Bala Mckeon DO IN CLINIC/BEDSIDE ORDER VIVIENNE Final Result from Last 3 Months Insurance MEDICARE T Care Teams Public Policy Manager Relationship Specialty Start Date End Date Rusty Newman MD PCP - General Internal Medicine 09/10/23
--- OUTSIDE RECORDS SUMMARY | 2024-12-17 09:25 | XMS_ITS | Encounter Summary ---
Author Organization [facility] [employer] [facility] tem Address [facility] [id number] [address] [place] [address] Care Team Providers Care Credit Consultant Name Role Phone Rusty Newman DO Primary Care Provider [phone] Encounter Details Date Type Department Care Team (Late st Contact Info) Description 05/20/2024 Orders Only [facility] Internal Medicine - Family Medicine [address] [place] [address] Rusty Newman DO [address] [place] [address] Cobalamin deficiency (Primary Dx) Social History Tobacco Use Types Packs/Day Years Used Date Smoking Tobacco: Never Smokeless Tobacco: Never Alcohol Use Standard Drinks/Week Comments No 0 (1 standard drink = 0.6 oz pur e alcohol) [facility] Utilities Answer Date Recorded In the past 12 months has [employer], gas, oil, or water [employer] threatened to shut off services in your [...] How often do you attend chur or spiritism services? More than 4 times [...] Answer Date Recorded Total Score 0 05/19/2024 [facility] of Occupat ional Health - Occupational [...] Recorded Do you need help finding a [facility] career center and/or a training [...] - Family Medicine [address] [place] [address] documented as of this encounter Visit Diagnoses [...] documented as of this encounter Care Teams Credit Consultant Relationship Specialty Start Date End Date Rusty Newman DO [address] [place] [address] PCP - General 11/09/13 documented as of this encounter
--- OUTSIDE RECORDS SUMMARY | 2024-12-17 09:26 | XMS_ITS | Encounter Summary ---
Author Organization [facility] tem Address [facility]-[id number] [address] [place] [address] Care Team Providers Care Diffuser Operator Name Role Phone Rusty Newman DO Primary Care Provider [phone] Encounter Details Date Type Department Care Team (Late st Contact Info) Description 12/25/2023 Orders Only [facility] Internal Medicine - Family Medicine [address] [place] [address] Rusty Newman DO [address] [place] [address] Social History Tobacco Use Types Packs/Day Years [...] often do you attend chur ch or muslim services? More than 4 times per year 11/27/2022 Do you belong to any clubs o r organizations such as anglican groups, unions, fraternal or athletic groups, or [...] Answer Date Recorded Total Score 0 12/24/2023 [facility] [place] of Occupat ional Health - Occupational Stress [...] Internal Medicine - Family Medicine [address] [place] [address] documented as of this encounter Visit Diagnoses [...] documented as of this encounter Care Teams Diffuser Operator Relationship Specialty Start Date End Date Rusty Newman DO [address] [place] [address] PCP - General 11/09/13 documented as of this encounter
--- OUTSIDE RECORDS SUMMARY | 2024-12-17 09:26 | XMS_ITS | Encounter Summary ---
Author Organization [facility] Address [facility] [place]-[id number] [address] [place] [address] Care Team Providers Care Copier Field Service Technician Name Role Phone Rusty Newman Primary Care Provider [phone] Encounter Details Date Type Department Care Team (Late st Contact Info) Description 07/12/2023 Orders Only [facility] Internal Medicine - Family Medicine [address] [place] [address] Lavern Rodriguez, PLATEN BUILDER UP-REPAIRER GENERAL [address] [place] [address] Trigger index finger of right hand Social [...] often do you attend chur ch or nondenominational services? More than 4 times per year 11/27/2022 Do you belong to any clubs o r organizations such as congregation groups, unions, fraternal or athletic groups, or [...] Answer Date Recorded Total Score 0 07/01/2023 [facility] of Occupat ional Health - Occupational Stress [...] Internal Medicine - Family Medicine [address] [place] [address] documented as of this encounter Procedures Procedure Name Priority Date/Time Associated Diagnosis Comments AMB REFERRAL TO ORTHOPEDIC SURGERY Routine 07/11/2023 9:07 AM EDT Trigger index finger of right hand documented in this encounter Results * Ambulatory referral to Orthopedic Surgery ([facility]) (07/11/2023 9:07 AM EDT) Lavern Rodriguez PLATEN BUILDER UP-REPAIRER GENERAL OUTPATIENT REFERRAL ORDERAB LES Final Result MANUALLY [...] documented as of this encounter Care Teams Copier Field Service Technician Relationship Specialty Start Date End Date Rusty Newman DO [address] [facility] [place] [address] PCP - General 11/09/13 documented as of this encounter
--- OUTSIDE RECORDS SUMMARY | 2024-12-17 09:26 | XMS_ITS | Encounter Summary ---
Author Organization [employer] [facility] tem Address [facility]-[id number] [address] [place] [address] Care Team Providers Care Parliamentary Archivist Name Role Phone Rusty Newman Primary Care Provider Encounter Details Date Type Department Care Team (Late st Contact Info) Description 01/20/2024 Telephone [facility] Internal Medicine - Family Medicine [address] [place] [address] Salena Gandhi CMA Social History Tobacco Use [...] often do you attend chur ch or yazdanism services? More than 4 times per year [...] Recorded Do you need help finding a [facility] and/or a training program? [...] - Family Medicine [address] [place] [address] documented as of this encounter Visit Diagnoses [...] documented as of this encounter Care Teams Parliamentary Archivist Relationship Specialty Start Date End Date Rusty Newman DO [address] [place] [address] PCP - General 11/09/13 documented as of this encounter
--- OUTSIDE RECORDS SUMMARY | 2024-12-17 09:26 | XMS_ITS | Encounter Summary ---
Author Organization [facility] [employer] tem Address [facility] [id number] [address] [place] [address] Care Team Providers Care Woodyard Crane Operator Name Role Phone Rusty Newman DO Primary Care Provider [phone] Encounter Details Date Type Department Care Team (Late st Contact Info) Description 09/12/2023 Orders Only [facility] Internal Medicine - Family Medicine [address] [place] [address] External, Scanning Provider Social History Tobacco Use [...] often do you attend chur ch or latter-day services? More than 4 times per year 11/27/2022 Do you belong to any clubs o r organizations such as mandaeism groups, unions, fraternal [...] Answer Date Recorded Total Score 0 07/25/2023 [facility] of Occupat ional Health - Occupational [...] Recorded Do you need help finding a [facility] career [facility] and/or a training program? [...] Medicine - Family Medicine [address] [place] [address] documented as of this encounter Procedures Procedure [...] documented as of this encounter Care Teams Woodyard Crane Operator Relationship Specialty Start Date End Date Rusty Newman DO [address] [place] [address] PCP - General 11/09/13 documented as of this encounter
--- OUTSIDE RECORDS SUMMARY | 2024-12-17 09:26 | XMS_ITS | Encounter Summary ---
Author Organization [facility] tem Address [facility] [id number] [address] [place] [address] Care Team Providers Care Performance Test Architect Name Role Phone Rusty Newman DO Primary Care Provider [phone] Encounter Details Date Type Department Care Team (Late st Contact Info) Description 12/11/2023 Orders Only [facility] Internal Medicine - Family Medicine [address] [place] [address] Rusty Newman DO [address] [place] [address] Encounter for screening mammogram for malignant neoplasm [...] often do you attend chur ch or church services? More than 4 times per year [...] Answer Date Recorded Total Score 0 07/25/2023 [facility] of Occupat ional Health [...] Recorded Do you need help finding a [facility] career center and/or a training program? [...] Description 03/02/2025 2:20 PM EST Office Visit [facility] Internal Medicine - Family Medicine [address] [place] [address] documented as of this encounter Results * Mammography screening bilateral with CAD (12/26/2023 1:36 PM EDT) Anatomical Region Laterality Modality Breast Bilateral Mammography 12/26/2023 1:45 PM EDT Narrative 12/26/2023 1:46 PM EDT RACH Diaz QUAINTANCE 1945 [id number] EXAM: MAMM SCREENING BILATERAL W CAD, 12/26/2023 [...] MAMM 1 YR FDA Accredited Performing Facility: [facility] - Mammography/DEXA Imaging [address] [facility] [address] Procedure Note Telma Sheikh MD - 12/26/2023 RACH Diaz QUAINTANCE 1945 [id number] EXAM: MAMM SCREENING BILATERAL W CAD, 12/26/2023 [...] MAMM 1 YR FDA Accredited Performing Facility: [facility] - Mammography/DEXA Imaging [address] [facility] [address] Rusty Newman DO [facility] MAMMOGRAPHY ORDERABLES Final Result documented in this [...] documented as of this encounter Care Teams Performance Test Architect Relationship Specialty Start Date End Date Rusty Newman DO [address] [place] [address] PCP - General 11/09/13 documented as of this encounter
--- OUTSIDE RECORDS SUMMARY | 2024-12-17 09:26 | XMS_ITS | Encounter Summary ---
Author Organization [facility] tem Address [facility] [place][id number] [address] [place] [address] Care Team Providers Care Energy Director Name Role Phone Rusty Newman DO Primary Care Provider [phone] Encounter Details Date Type Department Care Team (Late st Contact Info) Description 01/22/2024 Orders Only [facility] Internal Medicine - Family Medicine [address] [place] [address] Rusty Newman DO [address] [place] [address] Age-related osteoporosis without current pathological fracture (Primary [...] often do you attend chur ch or jainism services? More than 4 times per year [...] Date Recorded Total Score 0 01/20/2024 [facility] of Occupat ional Health - [...] Do you need help finding a [facility] career [facility] and/or a training [...] Internal Medicine - Family Medicine [address] [place] [address] documented as of this encounter Visit Diagnoses [...] documented as of this encounter Care Teams Energy Director Relationship Specialty Start Date End Date Rusty Newman DO [address] [place] [address] PCP - General 11/09/13 documented as of this encounter
--- OUTSIDE RECORDS SUMMARY | 2024-12-17 09:26 | XMS_ITS | Encounter Summary ---
Author Organization [facility] Address [facility] [place]-[id number] [address] [place] [address] Care Team Providers Care Sports Book Board Attendant Name Role Phone Rusty Newman DO Primary Care Provider [phone] Encounter Details Date Type Department Care Team (Late st Contact Info) Description 01/30/2024 Orders Only [facility] Internal Medicine - Family Medicine [address] [place] [address] Rusty Newman DO [address] [place] [address] Age-related osteoporosis without current pathological fracture (Primary [...] often do you attend chur ch or evangelical services? More than 4 times per year 11/27/2022 Do you belong to any clubs o r organizations such as moravian groups, unions, fraternal or athletic groups, or [...] Answer Date Recorded Total Score 0 01/20/2024 [facility] of Occupat ional Health - [...] Recorded Do you need help finding a [facility] career center and/or a training program? [...] Internal Medicine - Family Medicine [address] [place] [address] documented as of this encounter Visit Diagnoses [...] documented as of this encounter Care Teams Sports Book Board Attendant Relationship Specialty Start Date End Date Rusty Newman DO [address] [place] [address] PCP - General 11/09/13 documented as of this encounter
--- OUTSIDE RECORDS SUMMARY | 2024-12-17 09:26 | XMS_ITS | Encounter Summary ---
Author Organization [id number] [address] [place] [address] Care Team Providers Care Mine Promotor Name Role Phone Rusty Newman Primary Care Provider [phone] Encounter Details Date Type Department Care Team (Late st Contact Info) Description 01/30/2024 Telephone [facility] Internal Medicine - Family Medicine [address] [place] [id number] Waldemar Montes CMA Social History Tobacco Use [...] Answer Date Recorded Total Score 0 01/20/2024 [facility] - Occupational [...] [facility] and/or a training [...] able to book her infusion at the [facility] due to no order being there. I called the [facility] to verify this. Left message waiting [...] do we have any confirmation that the [facility] center has received the orders [...] Internal Medicine - Family Medicine [address] [place] [address] documented as of this encounter Visit Diagnoses [...] documented as of this encounter Care Teams Mine Promotor Relationship Specialty Start Date End Date Rusty Newman DO [address] [place] [address] PCP - General 11/09/13 documented as of this encounter
--- OUTSIDE RECORDS SUMMARY | 2024-12-17 09:27 | XMS_ITS | CCD ---
Author Organization [facility] Care Team Providers Care Sign Painter Name Role Phone LAKSHMIPATHY, NARENDRANATH Attending Unava [...] Alford Attending Unavailable BARRAZA ., DR YINKA lAford Admitting Unavailable YUAN .MARIELY Consulting Unavailable YUHAS, DR VIVAS Primary Care Unavailable LAKSHMIPATHY, NARYANYATH Attending Unava ilable LAKSHMIPATHY, NARENDRANATH Admitting Unava ilable YUHAS, DR VIVSA Primary Care Unavailable LAKSHMIPATHY, NARENDRANATH Admitting Unava ilable YUHAS, DR VIVAS Primary Care Unavailable LAKSHMIPATHY, NARFAUSTINO Attending Unava ilable BARRAZA ., DR YINKA Alford Attending Unavailable BARRAZA ., DR YINKA Alford Admitting Unavailable YUAN ., MARIELY Consulting Unavailable YUHAS, DR VIVAS Primary Care Unavailable LAKSHMIPATHY, NARENDOMAR Attending Unava ilable LAKSHMIPATHY, NARENDRANATH Admitting Unava ilable YUHAS, DR VIVAS Primary Care Unavailable LAKSHMIPATHY, NARENDMOAR Consulting Unava ilable BARRAZA ., DR YINKA [...] Unavailable LAKSHMIPATHY, NARENDRANATH Attending Unava ilable LAKSHMIPATHY, NARYANYATH Admitting Unava ilable YUROMULO, DR VIVAS Primary Care Unavailable LAKSHMIPATHY, NARENDRANATH Consulting Unava ilable SHANNEN BLAIR Consulting Unavailable LAKSHMIPATHY, NARENDRANATH Attending Unava ilable YUROMULO, DR VIVAS Primary Care Unavailable LAKSHMIPATHY, NARENDRANATH Admitting Unava ilable LAKSHMIPATHY, NARENDRANATH Consulting Unava ilable Sangeetha Quick MD Primary Care Provider [phone] Sangeetha Quick DO Primary Care Provider [phone] Sangeetha Quick DO Primary Care Provider SANGEETHA [...] QUICK Attending Unavailable SANGEETHA QUICK Referring Unavailable YUHAS, SANGEETHA L [...] Unavailable YUHAS, SANGEETHA L Primary Care Unavailable CHEMAYODEMARTIN Attending Unavailable YUHAS, SANGEETHA L Attending Unavailable YUHAS, SANGEETHA L Referring Unavailable YUHAS, SANGEETHA L Primary Care Unavailable Kenyatta ROOT, Delmer Mathias Attending Unavailable Kenyatta ROOT, Delmer Mathias Attending Unavailable Allergies Allergy Classification Reported Allergen(s) Allergy Type Date of Onset Reaction(s) Facility (1 source) Aspirin Drug Allergy [facility] Repository (4 sources) Codeine; Translations: [CODEINE] Drug Allergy 8 [facility] Repository (1 source) Etodolac Drug Allergy [facility] Repository (4 sources) Iodine; Translations: [IODINE] Drug Allergy 8 [facility] (4 sources) Latex; Translations: [LATEX] Drug allergy (disorder) 3 [facility] Repository (1 source) pregabalin Drug Allergy [facility] (1 source) Sulfonamides (Antibiotic) Drug allergy (disorder) [facility] Repository (12 sources) Aluminum aspirin Drug Allergy 4 [facility] (20 sources) Codeine Drug Allergy 8 Rash, Unknown [facility] (15 sources) Etodolac; Translations: [ETODOLAC] Propensity to adverse reactions 3 [facility] (20 sources) Iodine Drug Allergy [address] [facility] (12 sources) Latex Propensity to adverse reactions 3 [facility] (15 sources) Penicillins; Translations: [PENICILLINS] Drug Intolerance 8 Hives [facility] (20 sources) Sulfonamides (Antibiotic) Drug Intolerance 8 Rash, Unknown [facility] (20 sources) Aspirin; Translations: [ASPIRIN, BUFFERED] Drug Allergy [address] [facility] (20 sources) Etodolac Drug Allergy 3 [facility] (20 sources) Latex Propensity to adverse reactions to drug [address] [facility] (16 sources) Penicillins Propensity to adverse reactions to drug [address] [facility] (7 sources) Penicillins Propensity to adverse reactions to drug [address] [facility] (3 sources) Sulfonamides (Antibiotic); [...] 08/30/2024 Active meloxicam 15 mg oral tablet (4 sources) Nonsteroidal Anti-inflammatory Drug Start: 11-02-2024 take 1 tablet by mouth in the morning meloxicam (MOBIC) 15 mg tablet Indications: Degenerative lumbar spinal stenosis Take 1 tablet (15 mg total) by mouth in the morning. 30 tablet 11/02/2024 Active metoclopramide 10 mg oral tablet (5 sources) Dopamine-2 Receptor Antagonist Start: 11-02-2024 take [...] Active ondansetron 4 mg disintegrating oral tablet (18 sources) Serotonin-3 Receptor Antagonist Start: 12-24-2023 ondansetron [...] sources) HMG-CoA Reductase Inhibitor Start: 05-21-2023 End: 12-08-2024 take 1 tablet by mouth once daily rosuvastatin (CRESTOR) 10 mg tablet Indications: Hyperlipidemia, unspecified TAKE 1 TABLET BY MOUTH EVERY DAY 90 tablet 1 12/08/2024 Active tiZANidine 4 mg oral capsule (20 [...] infection (3 sources) Viral gastroenteritis due to Surrey-like agent; Translations: [Acute gastroenteropathy due to Surrey agent] Onset: 4 11-02-2024 Episodic Mood disorders (20 sources) Mood disorders Onset: 5 Resolved: 5 05-19-2024 Nutritional deficiencies (20 sources) Cobalamin deficiency; Translations: [Deficiency of other specified B group vitamins] Onset: 2 05-19-2024 Episodic Other connective tissue disease (2 [...] Facility XR SPINE LUMBAR 2 OR 3 VWSon 11-05-2024 XR SPINE LUMBAR 2 OR 3 [...] Nugent MD on 11/05/2024 10:41 PM Normal [facility] CBC WITH AUTO DIFFERENTIALon 10-23-2024 BASOPHILS ABSOLUTE COUNT (10*3/UL) BY AUTOMATED COUNT 0.0 10*3/uL Normal 0.0-0.2 [facility] Comment on above: Performed By: #### C TANNER HARDY, 3040-3 #### [facility] ([id number]) [address] [place] [address] 07354 BASOPHILS RELATIVE PERCENT BY AUTOMATED COUNT 0.2 % Normal [facility] Comment on above: Performed By: #### Renee HARDY CMP, 3040-3 #### [facility] ([id number]) [address] [place] [address] 87917 CELLAVISION DIFFERENTIAL TYPE AUTOMATED DIFFERENTIAL Normal [facility] Comment on above: Performed By: #### Renee HARDY CMP, 3040-3 #### [facility] ([id number]) [address] [place] [address] 70578 Eosinophils (Bld) [#/Vol] 0.0 10*3/uL Normal 0.0-0.4 [facility] Comment on above: Performed By: #### Renee HARDY CMP, 3039-3 #### [facility] ([id number]) [address] [place] [address] 84883 EOSINOPHILS RELATIVE PERCENT BY AUTOMATED COUNT 0.2 % Normal [facility] Comment on above: Performed By: #### C HAYLEY CMP, 3039-3 #### [facility] ([id number]) [address] [place] [address] 61819 Erythrocyte distribution width (RBC) [Ratio] 15.0 % Normal 11.5-15 [facility] Comment on above: Performed By: #### C HAYLEY CMP, 3 #### [facility] ([id number]) [address] [place] [address] 98748 Hematocrit (Bld) [Volume fraction] 37.5 % Normal 35-47 [facility] Comment on above: Performed By: #### Renee HARDY CMP, 3 #### [facility] ([id number]) [address] [place] [address] 37083 Hemoglobin (Bld) [Mass/Vol] 12.4 g/dL Normal 11.7-15.5 [facility] Comment on above: Performed By: #### Renee HARDY CMP, 3039-3 #### [facility] ([id number]) [address] [place] [address] 94447 LYMPHOCYTES ABSOLUTE COUNT (10*3/UL) BY AUTOMATED COUNT 0.8 10*3/uL Low 1.0-3.5 [facility] Comment on above: Performed By: #### C HAYLEY, CMP, 3039-3 #### [facility] ([id number]) [address] [place] [address] 44676 LYMPHOCYTES RELATIVE PERCENT BY AUTOMATED COUNT 5.8 % Normal [facility] Comment on above: Performed By: #### C HAYLEY CMP, 3039-3 #### [facility] ([id number]) [address] [place] [address] 50858 MCH (RBC) [Entitic mass] 28.4 pg Normal 27-34 [facility] Comment on above: Performed By: #### Renee HARDY CMP, 3039-3 #### [facility] ([id number]) [address] [place] [address] 62570 MCHC (RBC) [Mass/Vol] 33.2 g/dL Normal 32-36 [facility] Comment on above: Performed By: #### Renee HARDY CMP, 3 #### [facility] ([id number]) [address] [place] [address] 11231 MCV (RBC) [Entitic vol] 86 fL Normal 80-100 [facility] Comment on above: Performed By: #### Renee HARDY CMP, 3 #### [facility] ([id number]) [address] [place] [address] 21058 MONOCYTES ABSOLUTE COUNT (10*3/UL) BY AUTOMATED COUNT 0.6 10*3/uL Normal 0.0-0.9 [facility] Comment on above: Performed By: #### Renee HARDY CMP, 3 #### [facility] ([id number]) [address] [place] [address] 96728 MONOCYTES RELATIVE PERCENT BY AUTOMATED COUNT 4.1 % Normal [facility] Comment on above: Performed By: #### Renee HARDY CMP, 3039-06 #### [facility] ([id number]) [address] [place] [address] 72347 NEUTROPHILS ABSOLUTE COUNT BY AUTOMATED COUNT 12.1 10*3/uL High 1.5-6.6 [facility] Comment on above: Performed By: #### Renee HARDY CMP, 3039-3 #### [facility] ([id number]) [address] [place] [address] 72768 NEUTROPHILS RELATIVE PERCENT BY AUTOMATED COUNT 89.7 % Normal [facility] Comment on above: Performed By: #### C HAYLEY, CMP, 3039-3 #### [facility] ([id number]) [address] [place] [address] 71461 Platelet mean volume (Bld) [Entitic vol] 9.2 fL Normal 7-12 [facility] Comment on above: Performed By: #### C HAYLEY, CMP, 3039-3 #### [facility] ([id number]) [address] [place] [address] 80620 Platelets (Bld) [#/Vol] 275 10*3/uL Normal 150-450 [facility] Comment on above: Performed By: #### C HAYLEY, CMP, 3039-3 #### [facility] ([id number]) [address] [place] [address] 75835 RBC COUNT 4.38 X10E12/L Normal 3.8-5.2 [facility] Comment on above: Performed By: #### C HAYLEY, CMP, 3 #### [facility] ([id number]) [address] [place] [address] 90142 WBC (Bld) [#/Vol] 13.4 10*3/uL High 4-11 [facility] Comment on above: Performed By: #### C HAYLEY, CMP, 3039-3 #### [facility] ([id number]) [address] [place] [address] 22595 COMPREHENSIVE METABOLIC PANE Ulices 10-23-2024 Albumin [Mass/Vol] 4.4 g/dL Normal 3.2-5.3 [facility] Comment on above: Performed By: #### C BCA, CMP, 3039-3 #### [facility] ([id number]) [address] [place] [address] 69908 ALP [Catalytic activity/Vol] 59 U/L Normal 39-130 [facility] Comment on above: Performed By: #### C BCA, CMP, 3039-3 #### [facility] ([id number]) [address] [place] [address] 62368 ALT [Catalytic activity/Vol] 16 U/L Normal <=31 [facility] Comment on above: Performed By: #### C BCA, CMP, 3039-3 #### [facility] ([id number]) [address] [place] [address] 55690 Anion gap [Moles/Vol] 9 mmol/L Normal 5-15 [facility] Comment on above: Performed By: #### C BCA, CMP, 3 #### [facility] ([id number]) [address] [place] [address] 66724 AST [Catalytic activity/Vol] 18 U/L Normal <=41 [facility] Comment on above: Performed By: #### C BCA, CMP, 3 #### [facility] ([id number]) [address] [place] [address] 16476 Bilirubin [Mass/Vol] 0.6 mg/dL Normal 0.3-1.2 [facility] Comment on above: Performed By: #### C BCA, CMP, 3039-3 #### [facility] ([id number]) [address] [place] [address] 25682 Calcium [Mass/Vol] 8.6 mg/dL Normal 8.5-10.5 [facility] Comment on above: Performed By: #### C BCA, CMP, 3 #### [facility] ([id number]) [address] [place] [address] 19318 Chloride [Moles/Vol] 106 mmol/L Normal 98-109 [facility] Comment on above: Performed By: #### C BCA, CMP, 3039-3 #### [facility] ([id number]) [address] [place] [address] 08367 CO2 [Moles/Vol] 23 mmol/L Normal 22-32 [facility] Comment on above: Performed By: #### C TANNER AHRDY, 3040-3 #### [facility] ([id number]) [address] [place] [address] 58269 Creatinine [Mass/Vol] 0.62 mg/dL Normal 0.40-1.00 [facility] Comment on above: Result Comment: METH OD TRACEABLE TO IDMS STANDARD Performed By: #### C TANNER HARDY, 3039-3 #### [facility] ([id number]) [address] [place] [address] 12595 EGFR (CKD-EPI) NON-RACE DEPENDENT >^90 Normal >=60 [facility] Comment on above: Result Comment: eGFR not reported due to non-numeric value for Creatinine. Reported eGFR is based on the CKD-EPI 2020 equation that does not use a race coefficient. Performed By: #### C TANNER HARDY, 3 #### [facility] ([id number]) [address] [place] [address] 35716 Glucose [Mass/Vol] 142 mg/dL High 65-99 [facility] Comment on above: Performed By: #### Renee HARDY CMP, 3039-3 #### [facility] ([id number]) [address] [place] [address] 31979 Potassium [Moles/Vol] 3.7 mmol/L Normal 3.5-5.0 [facility] Comment on above: Performed By: #### C TANNER HARDY, 3039-3 #### [facility] ([id number]) [address] [place] [address] 38661 Protein [Mass/Vol] 7.4 g/dL Normal 6.0-8.0 [facility] Comment on above: Performed By: #### Renee HARDY CMP, 3039-3 #### [facility] ([id number]) [address] [place] [address] Sodium [Moles/Vol] 138 mmol/L Normal 134-146 [facility] Comment on above: Performed By: #### C TANNER HARDY, 3040-3 #### [facility] ([id number]) [address] [place] [address] Urea nitrogen [Mass/Vol] 18 mg/dL Normal 5-27 [facility] Comment on above: Performed By: #### C HAYLEY, CMP, 3040-3 #### [facility] ([id number]) [address] [place] [address] CT ABDOMEN AND PELVIS WO CON Ton [...] Mcmanus MD on 10/23/2024 10:12 AM Normal [facility] GI PANEL STOOL PATHOGEN PANE Ulices 10-23-2024 ADENOVIRUS Not detected Normal Not Detected [facility] Comment on above: Performed By: #### C HAYLEY, CMP, 3040-3 #### [facility] ([id number]) [address] [place] [address] [place] [address] AGGREGATIVE E COLI Not detected Normal Not Detected [facility] Comment on above: Performed By: #### C BCA, CMP, 3040-3 #### [facility] ([id number]) [address] [place] [address] [place] [address] ASTROVIRUS Not detected Normal Not Detected [facility] Comment on above: Performed By: #### C BCA, CMP, 3040-3 #### [facility] ([id number]) [address] [place] [address] [place] [address] CAMPYLOBACTER Not detected Normal Not Detected [facility] Comment on above: Performed By: #### C BCA, CMP, 3040-3 #### [facility] ([id number]) [address] [place] [address] [place] [address] CRYPTOSPORIDIUM Not detected Normal Not Detected [facility] Comment on above: Performed By: #### C BCA, CMP, 3040-3 #### [facility] ([id number]) [address] [place] [address] [place] [address] CYCLOSPORA Not detected Normal Not Detected [facility] Comment on above: Performed By: #### C BCA, CMP, 3040-3 #### [facility] ([id number]) [address] [place] [address] [place] [address] E HISTOLYTICA Not detected Normal Not Detected [facility] Comment on above: Performed By: #### C BCA, CMP, 3040-3 #### [facility] ([id number]) [address] [place] [address] 80803 GIARDIA LAMBLIA Not detected Normal Not Detected [facility] Comment on above: Performed By: #### C BCA, CMP, 3040-3 #### [facility] ([id number]) [address] [place] [address] [place] [address] NOROVIRUS Detected Abnormal Not Detected [facility] Comment on above: Result Comment: Dete cts the following: Norovirus Genogroups I, II. The transformer maker has reported an increase in false positive Norovirus results. If the positive test is inconsistent with clinical presentation, a secondary method should be used to confirm the results. Performed By: #### C BCA, CMP, 3040-3 #### [facility] ([id number]) [address] [place] [address] 50120 PATHOGENIC E COLI Not detected Normal Not Detected [place] Comment on above: Performed By: #### C HAYLEY, CMP, 0-3 #### [facility] ([id number]) [address] [place] [address] 20669 PLESIOMONAS Not detected Normal Not Detected [facility] Comment on above: Performed By: #### C TANNER HARDY, 3039-3 #### [facility] ([id number]) [address] [place] [address] [place] [address] ROTAVIRUS A Not detected Normal Not Detected [facility] Comment on above: Performed By: #### C HAYLEY [facility], 3039-3 #### [facility] ([id number]) [address] [place] [address] [place] [address] SALMONELLA Not detected Normal Not Detected [facility] Comment on above: Performed By: #### C BCA, CMP, 0-3 #### [facility] ([id number]) [address] [place] [address] [place] [address] SAPOVIRUS Not detected Normal Not Detected [facility] Comment on above: Performed By: #### C BCA, CMP, 0-3 #### [facility] ([id number]) [address] [place] [address] [place] [address] SHIGA TOXIN E COLI Not detected Normal Not Detected [facility] Comment on above: Performed By: #### C BCA, CMP, 0-3 #### [facility] ([id number]) [address] [place] [address] [place] [address] SHIGELLA-E COLI Not detected Normal Not Detected [facility] Comment on above: Performed By: #### C HAYLEY, CMP, 3040-3 #### [facility] ([id number]) [address] [place] [address] 80[address] TOXIGENIC E COLI Not detected Normal Not Detected [facility] Comment on above: Performed By: #### C HAYLEY, CMP, 3039-3 #### [facility] ([id number]) [address] [place] [address] 88737 VIBRIO Not detected Normal Not Detected [facility] Comment on above: Performed By: #### C HAYLEY CMP, 3039-3 #### [facility] ([id number]) [address] [place] [address] 28907 VIBRIO CHOLERAE Not detected Normal Not Detected [facility] Comment on above: Performed By: #### C HAYLEY, [facility], 3039-3 #### [facility] ([id number]) [address] [place] [address] 09301 Y. ENTEROCOLITICA Not detected Normal Not Detected [place] Comment on above: Performed By: #### Renee HARDY, CMP, 0-3 #### [facility] ([id number]) [address] [place] [address] 80897 LIPASEon 10-23-2024 Lipase [Catalytic activity/Vol] 28 U/L Normal 17-40 [facility] Comment on above: Performed By: #### Renee HARDY, CMP, 0-3 #### [facility] ([id number]) [address] [place] [address] 85600 MAGNESIUMon 10-23-2024 Magnesium [Mass/Vol] 1.8 mg/dL Normal 1.8-2.6 [facility] Comment on above: Performed By: #### C HAYLEY, CMP, 304-3 #### [facility] ([id number]) [address] [place] [address] 58495 POCT NURSING URINE MACROSCOP IC UAon 10-23-2024 BILIRUBIN STUART Negative Normal Negative [facility] Comment on above: Performed By: #### Renee HARDY CMP, 3039-3 #### [facility] ([id number]) [address] [place] [address] 84374 BLOOD/HGB STUART Trace Abnormal Negative [facility] Comment on above: Performed By: #### Renee HARDY CMP, 3039-3 #### [facility] ([id number]) [address] [place] [address] 59057 GLUCOSE STUART Negative Normal Negative [facility] Comment on above: Performed By: #### Renee HARDY CMP, 3039-3 #### [facility] ([id number]) [address] [place] [address] [place] [address] KETONES STUART 15 mg/dL Abnormal Negative [facility] Comment on above: Performed By: #### Renee HARDY CMP, 3 #### [facility] ([id number]) [address] [place] [address] [place] [address] LEUKOCYTE ESTERASE STUART Negative Normal Negative [facility] Comment on above: Performed By: #### Renee HARDY CMP, 3039-3 #### [facility] ([id number]) [address] [place] [address] [place] [address] NITRITE STUART Positive Abnormal Negative [facility] Comment on above: Performed By: #### Renee HARDY CMP, 3039-3 #### [facility] ([id number]) [address] [place] [address] 03636 PH STUART 7.0 Normal 5.0, 6.0, 6.5, 7.0, 7.5, 8.0, 8.5, 5.5 [facility] Comment on above: Performed By: #### C HAYLEY [facility], 3040-3 #### [facility] ([id number]) [address] [place] [address] 19909 PROTEIN STUART Trace Abnormal Negative [facility] Comment on above: Performed By: #### C HAYLEY [facility], 3040-3 #### [facility] ([id number]) [address] [place] [address] SPECIFIC GRAVITY STUART 1.020 Normal 1.010, 1.015, 1.020, 1.025 [facility] Comment on above: Performed By: #### C HAYLEY [facility], 3040-3 #### [facility] ([id number]) [address] [place] [address] 40526 UROBILINOGEN STUART 0.2 E.U./dL Normal [facility] Comment on above: Performed By: #### C HAYLEY [facility], 3040-3 #### [facility] ([id number]) [address] [place] [address] 67142 SARS/FLU A+B/RSV BY NAAT/MOL ECULAR (M4RT COLLECTION TUBE)on 10-23-2024 SARS/FLU A+B/RSV BY NAAT/MOLECULAR (M4RT COLLECTION TUBE) FLU A PCR Negative FLU B PCR Negative RSV BY PCR Negative SARS COV 2 BY PCR Not Detected Normal Not Detected [facility] Comment on above: Order Comment: The X [...] operators who are performing tests using either [employer]Jet or [employer] Tr[employer] systems and is limited to laboratories that [...] resolved with specimen repeat.Fact Sheet for Healthcare Providers:https://www.fda.gov/media/337518/downloadFact Sheet for Patients:https://www.fda.gov/media/263048/download Performed By: #### C HAYLEY, [facility], 3040-3 #### [facility] ([id number]) [address] [place] [address], [place] [address] No Panel Informationon 10-21 Jr. Angella campos, DO 10/31/2024 4:18 PM L Inj/Asp: R subacromial bursa on 10/21/2024 10:48 AM Indications: pain Details: 21 G needle, posterior approach Medications: 40 mg methylPREDNISolone acetate 40 MG/ML Outcome: tolerated well, no immediate complications SKIN PREPPED WITH ISOPROPYL ALCOHOL Procedure, treatment alternatives, risks and benefits explained, specific risks discussed. Consent was given by the patient. [facility] e No Panel Informationon 09-09 Jr. Angella campos, DO 09/15/2024 7:30 AM L Inj/Asp: R subacromial bursa on 09/09/2024 10:26 AM Indications: pain Details: 21 G needle, posterior approach Medications: 40 mg methylPREDNISolone acetate 40 MG/ML Outcome: tolerated well, no immediate complications Procedure, treatment alternatives, risks and benefits explained, specific risks discussed. Consent was given by the patient. 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 [facility] [employer] Radiology Study observation (narrative) [facility] [employer] COMPREHENSIVE METABOLIC PANE Ulices 08-18-2024 Albumin [Mass/Vol] 4.3 g/dL Normal 3.2-5.3 [facility] Comment on above: Performed By: #### C MP #### [facility] ([facility]) [address] [place] [address] VIR ALP [Catalytic activity/Vol] 56 U/L Normal 39-130 [facility] Comment on above: Performed By: #### C MP #### [facility] ([facility]) [address] [place] [address] VIR ALT [Catalytic activity/Vol] 15 U/L Normal <=31 [facility] Comment on above: Performed By: #### C MP #### [facility] ([facility]) [address] [place] [address] VIR Anion gap [Moles/Vol] 10 mmol/L Normal 5-15 [facility] Comment on above: Performed By: #### C MP #### [facility] ([facility]) [address] [place] [address] VIR AST [Catalytic activity/Vol] 18 U/L Normal <=41 [facility] Comment on above: Performed By: #### C MP #### [facility] ([facility]) [address] [place] [address] VIR Bilirubin [Mass/Vol] 0.3 mg/dL Normal 0.3-1.2 [facility] Comment on above: Performed By: #### C MP #### [facility] ([facility]) [address] [place] [address] VIR Calcium [Mass/Vol] 9.3 mg/dL Normal 8.5-10.5 [facility] Comment on above: Performed By: #### C MP #### [facility] ([facility]) [address] [place] [address] VIR Chloride [Moles/Vol] 102 mmol/L Normal 98-109 [facility] Comment on above: Performed By: #### C MP #### [facility] ([facility]) [address] [place] [address] VIR CO2 [Moles/Vol] 28 mmol/L Normal 22-32 [facility] Comment on above: Performed By: #### C MP #### [facility] ([facility]) [address] [place] [address] VIR Creatinine [Mass/Vol] 0.59 mg/dL Normal 0.40-1.00 [facility] Comment on above: Result Comment: METH OD TRACEABLE TO IDMS STANDARD Performed By: #### C MP #### [facility] ([facility]) [address] [place] [address] VIR EGFR (CKD-EPI) NON-RACE DEPENDENT >^90 Normal >=60 [facility] Comment on above: Result Comment: Repo rted eGFR is based on the CKD-EPI 2020 equation that does not use a race coefficient. Performed By: #### C MP #### [facility] ([facility]) [address] [place] [address] VIR Glucose [Mass/Vol] 82 mg/dL Normal 65-99 [facility] Comment on above: Performed By: #### C MP #### [facility] ([facility]) [address] [place] [address] VIR Potassium [Moles/Vol] 3.7 mmol/L Normal 3.5-5.0 [facility] Comment on above: Performed By: #### C MP #### [facility] ([facility]) [address] [place] [address] VIR Protein [Mass/Vol] 6.7 g/dL Normal 6.0-8.0 [facility] Comment on above: Performed By: #### C MP #### [facility] ([facility]) [address] [place] [address] VIR Sodium [Moles/Vol] 140 mmol/L Normal 134-146 [facility] Comment on above: Performed By: #### C MP #### [facility] ([facility]) [address] [place] [address] VIR Urea nitrogen [Mass/Vol] 17 mg/dL Normal 5-27 [facility] Comment on above: Performed By: #### C MP #### [facility] ([facility]) [address] [place] [address] VIR LIPID PROFILEon 08-18-2024 Cholesterol [Mass/Vol] 153 mg/dL Normal 150-200 [facility] Comment on above: Performed By: #### L IPR #### [facility] ([facility]) [address] [place] [address] VIR Cholesterol in HDL [Mass/Vol] 54 mg/dL Normal >39 [facility] Comment on above: Result Comment: HDL <40 mg/dL - High Risk HDL > or = 40mg/dL- Desirable HDL >60 mg/dL - Negative Risk Performed By: #### L IPR #### [facility] ([facility]) [address] [place] [address] VIR Cholesterol in LDL [Mass/Vol] 75 mg/dL Normal <130 [facility] Comment on above: Result Comment: LDL <100 mg/dL - Desirable LDL >160 mg/dL - High Risk Performed By: #### L IPR #### [facility] ([facility]) [address] [place] [address] VIR CHOLESTEROL:HDL 2.8 Normal 1.0-5.0 [facility] Comment on above: Performed By: #### L IPR #### [facility] ([facility]) [address] [place] [address] VIR Triglyceride [Mass/Vol] 120 mg/dL Normal 27-150 [facility] Comment on above: Performed By: #### L IPR #### [facility] ([facility]) [address] [place] [address] VIR VERY LOW LIPOPROTEIN 24 mg/dL Normal 0-30 [facility] Comment on above: Performed By: #### L IPR #### [facility] ([facility]) [address] [place] [address] VIR XR FOOT RT MIN 3 VWSon [...] on 05/23/2024 9:39 PM Normal [facility] CBC AND AUTO DIFFon 05-19-19 25 ABSOLUTE BASOPHIL 0.0 X10E9/L Normal 0.0-0.2 [facility] Comment on above: Performed By: #### C BCA, CMP, THYR, 2131-12, 44418-3 #### [facility] ([id number]) [address] [place] [address] ABSOLUTE NEUTROPHIL 4.4 X10E9/L Normal 1.5-6.6 [facility] Comment on above: Performed By: #### C BCA, CMP, THYR, 2131-12, 34509-6 #### [facility] ([id number]) [address] [place] [address] Basophils/100 WBC (Bld) 0.2 % Normal [facility] Comment on above: Performed By: #### C BCA, CMP, THYR, 2131-12, 73762-2 #### [facility] ([id number]) [address], [address] [place] [address] Eosinophils (Bld) [#/Vol] 0.1 10*3/uL Normal 0.0-0.4 [facility] Comment on above: Performed By: #### C BCA, CMP, THYR, 2131-12, 31696-0 #### [facility] ([id number]) [address] [address] [place] [address] Eosinophils/100 WBC (Bld) 1.2 % Normal [facility] Comment on above: Performed By: #### C BCA, CMP, THYR, 2131-12, 76277-4 #### [facility] ([id number]) [address] [address] [place] [address] Erythrocyte distribution width (RBC) [Ratio] 14.9 % Normal 11.5-15.0 [facility] Comment on above: Performed By: #### C BCA, CMP, THYR, 2131-12, 23936-2 #### [facility] ([id number]) [address] [address] [place] [address] Hematocrit (Bld) [Volume fraction] 34.6 % Low 35-47 [facility] Comment on above: Performed By: #### C BCA, CMP, THYR, 2131-12, 72295-4 #### [facility] ([id number]) [address], [address] [place] [address] Hemoglobin (Bld) [Mass/Vol] 11.2 g/dL Low 11.7-15.5 [facility] Comment on above: Performed By: #### C BCA, CMP, THYR, 2131-12, 86264-4 #### [facility] ([id number]) [address], [address] [place] [address] Lymphocytes (Bld) [#/Vol] 2.5 10*3/uL Normal 1.0-3.5 [facility] Comment on above: Performed By: #### C BCA, CMP, THYR, 2131-12, 15753-7 #### [facility] ([id number]) [address], [address] [place] [address] Lymphocytes/100 WBC (Bld) 33.7 % Normal [facility] Comment on above: Performed By: #### C BCA, CMP, THYR, 2131-12, 85071-1 #### [facility] ([id number]) [address] [place] [address] MCH (RBC) [Entitic mass] 27.7 pg Normal 27-34 [facility] Comment on above: Performed By: #### C BCA, CMP, THYR, 2131-12, 59768-8 #### [facility] ([id number]) [address], [address] [place] [address] MCHC (RBC) [Mass/Vol] 32.4 g/dL Normal 32-36 [facility] Comment on above: Performed By: #### C BCA, CMP, THYR, 2131-12, 79070-7 #### [facility] ([id number]) [address], [address] [place] [address] MCV (RBC) [Entitic vol] 86 fL Normal 80-100 [facility] Comment on above: Performed By: #### C BCA, CMP, THYR, 2131-12, 38631-8 #### [facility] ([id number]) [address], [address] [place] [address] Monocytes (Bld) [#/Vol] 0.4 10*3/uL Normal 0-0.9 [facility] Comment on above: Performed By: #### C BCA, CMP, THYR, 2131-12, 93176-4 #### [facility] ([id number]) [address], [address] [place] [address] Monocytes/100 WBC (Bld) 5.8 % Normal [facility] Comment on above: Performed By: #### C BCA, CMP, THYR, 2131-12, 74773-4 #### [facility] ([id number]) [address] [place] [address] Neutrophils/100 WBC (Bld) 59.1 % Normal [facility] Comment on above: Performed By: #### C BCA, CMP, THYR, 2131-12, 28138-9 #### [facility] ([id number]) [address], [address] [place] [address] Platelet mean volume (Bld) [Entitic vol] 9.4 fL Normal 7-12 [facility] Comment on above: Performed By: #### C BCA, CMP, THYR, 2131-12, 74759-0 #### [facility] ([id number]) [address], [address] [place] [address] Platelets (Bld) [#/Vol] 242 10*3/uL Normal 150-450 [facility] Comment on above: Performed By: #### C BCA, CMP, THYR, 2131-12, 45836-0 #### [facility] ([id number]) [address], [address] [place] [address] RBC COUNT 4.04 X10E12/L Normal 3.80-5.20 [facility] Comment on above: Performed By: #### C BCA, CMP, THYR, 2131-12, 14209-6 #### [facility] ([id number]) [address], [address] [place] [address] WBC (Bld) [#/Vol] 7.5 10*3/uL Normal 4.0-11.0 [facility] Comment on above: Performed By: #### C BCA, CMP, THYR, 2131-12, 62462-4 #### [facility] ([id number]) [address], [address] [place] [address] COMPREHENSIVE METABOLIC PANE Ulices 05-19-2024 Albumin [Mass/Vol] 4.3 g/dL Normal 3.2-5.3 [facility] Comment on above: Performed By: #### C BCA, CMP, THYR, 2131-12, 61039-3 #### [facility] ([id number]) [address], [address] [place] [address] ALP [Catalytic activity/Vol] 51 U/L Normal 39-130 [facility] Comment on above: Performed By: #### C BCA, CMP, THYR, 2131-12, 76401-0 #### [facility] ([id number]) [address], [address] [place] [address] ALT [Catalytic activity/Vol] 10 U/L Normal 0-31 [facility] Comment on above: Performed By: #### C BCA, CMP, THYR, 2131-12, 87211-6 #### [facility] ([id number]) [address], [address] [place] [address] Anion gap [Moles/Vol] 8 mmol/L Normal 5-15 [facility] Comment on above: Performed By: #### C BCA, CMP, THYR, 2131-12, 32290-2 #### [facility] ([id number]) [address], [address] [place] [address] AST [Catalytic activity/Vol] 17 U/L Normal 0-41 [facility] Comment on above: Performed By: #### C BCA, CMP, THYR, 2131-12, 98019-7 #### [facility] ([id number]) [address], [address] [place] [address] Bilirubin [Mass/Vol] 0.4 mg/dL Normal 0.3-1.2 [facility] Comment on above: Performed By: #### C BCA, CMP, THYR, 2131-12, 15156-9 #### [facility] ([id number]) [address] [place] [address] Calcium [Mass/Vol] 8.8 mg/dL Normal 8.5-10.5 [facility] Comment on above: Performed By: #### C BCA, CMP, THYR, 2131-12, 51538-3 #### [facility] ([id number]) [address] [place] [address] Chloride [Moles/Vol] 104 mmol/L Normal 98-109 [facility] Comment on above: Performed By: #### C BCA, CMP, THYR, 2131-12, 27187-4 #### [facility] ([id number]) [address], [address] [place] [address] CO2 [Moles/Vol] 28 mmol/L Normal 22-32 [facility] Comment on above: Performed By: #### C BCA, CMP, THYR, 2131-12, 74803-6 #### [facility] ([id number]) [address], [address] [place] [address] Creatinine [Mass/Vol] 0.93 mg/dL Normal 0.40-1.00 [facility] Comment on above: Result Comment: METH OD TRACEABLE TO IDMS STANDARD Performed By: #### C BCA, CMP, THYR, 2131-12, 63703-9 #### [facility] ([id number]) [address] [place] [address] GFR/1.73 sq M.predicted among non-blacks MDRD (S/P/Bld) [Vol rate/Area] 64 mL/min/{1.73_m2} Normal >59 [facility] Comment on above: Result Comment: Reported eGFR is based on the CKD-EPI 2020 equation that does not use a race coefficient. Performed By: #### C BCA, CMP, THYR, 2131-12, 95155-0 #### [facility] ([id number]) [address] [place] [address] Glucose [Mass/Vol] 87 mg/dL Normal 65-99 [facility] Comment on above: Performed By: #### C BCA, CMP, THYR, 2131-12, 59978-3 #### [facility] ([id number]) [address] [place] [address] Potassium [Moles/Vol] 4.1 mmol/L Normal 3.5-5.0 [facility] Comment on above: Performed By: #### C BCA, CMP, THYR, 2131-12, 70543-4 #### [facility] ([id number]) [address] [place] [address] Protein [Mass/Vol] 6.6 g/dL Normal 6.0-8.0 [facility] Comment on above: Performed By: #### C BCA, CMP, THYR, 2131-12, 84975-0 #### [facility] ([id number]) [address] [address] [place] [address] Sodium [Moles/Vol] 140 mmol/L Normal 134-146 [facility] Comment on above: Performed By: #### C BCA, CMP, THYR, 2131-12, 63528-3 #### [facility] ([id number]) [address] [place] [address] Urea nitrogen [Mass/Vol] 20 mg/dL Normal 5-27 [facility] Comment on above: Performed By: #### C BCA, CMP, THYR, 2131-12, 28737-5 #### [facility] ([id number]) [address] [place] [address] THYROID PROFILEon 05-19-2024 Free T4 [Mass/Vol] 0.95 ng/dL Normal 0.61-1.60 [facility] Comment on above: Performed By: #### C BCA, CMP, THYR, 2131-12, 27093-2 #### [facility] ([id number]) [address] [place] [address] TSH 0.60 uIU/mL Normal 0.49-4.67 [facility] Comment on above: Performed By: #### C BCA, CMP, THYR, 2131-12, 11085-3 #### [facility] ([id number]) [address] [place] [address] VITAMIN B12on 05-19-2024 Cobalamin (Vitamin B12) [Mass/Vol] 319 pg/mL Normal 180-914 [facility] Comment on above: Performed By: #### C BCA, CMP, THYR, 2131-12, 69190-1 #### [facility] ([id number]) [address] [place] [address] Vitamin D+Metabolites [Mass/ Vol]on 05-19-2024 VITAMIN D 25 HYD TOT 97.5 ng/mL Normal 30-100 [facility] Comment on above: Result Comment: Vitamin D status 25 [place] Vitamin D Deficiency <20 ng/mL Insufficiency 20-29 ng/mL Sufficiency 30-100 ng/mL Toxicity >100 ng/mL NOTE: A pediatric reference range has not been established by the transformer maker of this kit. The [place] [employer] recommends a Vitamin D level of = or >20ng/mL in infants and children. Performed By: #### C TANNER HARDY, THYR, 2132-9, 16623-8 #### [facility] ([id number]) [address] [place] [address] ALBUMINon 02-05-2024 Albumin [Mass/Vol] 4.1 g/dL Normal 3.2-5.3 [facility] Comment on above: Performed By: #### 1 751-7, 66604-0, SCHOOL PROGRAM DIRECTOR, 93128-6 #### [facility] ([id number]) [address] [place] [address] CALCIUMon 02-05-2024 Calcium [Mass/Vol] 8.9 mg/dL Normal 8.5-10.5 [facility] Comment on above: Performed By: #### C TANNER HARDY, 3040-3 #### [facility] ([id number]) [address] [place] [address] CREATININEon 02-05-2024 Creatinine [Mass/Vol] 0.70 mg/dL Normal 0.40-1.00 [facility] Comment on above: Result Comment: METH OD TRACEABLE TO IDMS STANDARD Performed By: #### C TANNER HARDY, 3040-3 #### [facility] ([id number]) [address] [place] [address] GFR/1.73 sq M.predicted among non-blacks MDRD (S/P/Bld) [Vol rate/Area] 90 mL/min/{1.73_m2} Normal >59 [facility] Comment on above: Result Comment: Reported eGFR is based on the CKD-EPI 2020 equation that does not use a race coefficient. Performed By: #### C TANNER HARDY, 3040-3 #### [facility] ([id number]) [address] [place] [address] Vitamin D+Metabolites [Mass/ Vol]on 02-05-2024 VITAMIN D 25 HYD TOT 78.5 ng/mL Normal 30-100 [facility] Comment on above: Result Comment: Vitamin D status 25 [place] Vitamin D Deficiency <20 ng/mL Insufficiency 20-29 ng/mL Sufficiency 30-100 ng/mL Toxicity >100 ng/mL NOTE: A pediatric reference range has not been established by the transformer maker of this kit. The [place] [employer] recommends a Vitamin D level of = or >20ng/mL in infants and children. Performed By: #### C HYALEY, [facility], 3040-3 #### [facility] ([id number]) [address] [place] [address] XR Knee - left 1 or 2 Viewso n 01-08-2024 Imaging Result: AP and lateral views of left knee showed severe varus deformity with [id number] articulation to the medial joint line, flattening [...] joint disease left knee with varus deformity [facility] Slice XR Knee - left 1 or 2 ViewsO rdered By: Jr. Mckeon on 01-08-2024 [facility] [employer] Work Phone: XR Knee - left 1 or 2 Viewso n 01-07-2024 Radiology Study observation (narrative) [facility] GI PANELon 12-26-2023 Gastrointestinal pathogens DNA and [...] detected (qualifier value) Normal NDET [facility] Comment on above: Performed By: #### 8 2195-9 #### [facility] ([id number]) [address] [facility] [place] [address] [facility] ([id number]) [address] [place] [address], [address] [place] [address] MAMM SCREENING BILATERAL W C cash management associate 12-26-2023 MAMM SCREENING BILATERAL W CAD MAMM SCREENING BILATERAL W CAD RACH Diaz QUAINTANCE 1945 [id number] EXAM: MAMM SCREENING BILATERAL W CAD, 12/26/2023 [...] c MAMM 1 YR Normal [facility] BASIC METABOLIC PANLon 12-24 Anion gap [Moles/Vol] 10 mmol/L Normal 5-15 [facility] Comment on above: Performed By: #### B KIMBERLY 2131-12 #### [facility] ([id number]) [address] [place] [address] Calcium [Mass/Vol] 8.8 mg/dL Normal 8.5-10.5 [facility] Comment on above: Performed By: #### Lm HARRIS, 2131-12 #### [facility] ([id number]) [address] [place] [address] Chloride [Moles/Vol] 105 mmol/L Normal 98-109 [facility] Comment on above: Performed By: #### Lm HARRIS, 2131-12 #### [facility] ([id number]) [address] [place] [address] CO2 [Moles/Vol] 26 mmol/L Normal 22-32 [facility] Comment on above: Performed By: #### Lm HARRIS, 2131-12 #### [facility] ([id number]) [address] [place] [address] Creatinine [Mass/Vol] 0.73 mg/dL Normal 0.40-1.00 [facility] Comment on above: Result Comment: METH OD TRACEABLE TO IDMS STANDARD Performed By: #### Lm HARRIS, 2131-12 #### [facility] ([id number]) [address] [place] [address] GFR/1.73 sq M.predicted among non-blacks MDRD (S/P/Bld) [Vol rate/Area] 85 mL/min/{1.73_m2} Normal >59 [facility] Comment on above: Result Comment: Reported eGFR is based on the CKD-EPI 2020 equation that does not use a race coefficient. Performed By: #### Lm HARRIS, 2131-12 #### [facility] ([id number]) [address] [place] [address] Glucose [Mass/Vol] 92 mg/dL Normal 65-99 [facility] Comment on above: Performed By: #### Lm HARRIS, 2131-12 #### [facility] ([id number]) [address] [place] [address] Potassium [Moles/Vol] 3.4 mmol/L Low 3.5-5.0 [facility] Comment on above: Performed By: #### Lm HARRIS, 2131-12 #### [facility] ([id number]) [address], [address] [place] [address] Sodium [Moles/Vol] 141 mmol/L Normal 134-146 [facility] Comment on above: Performed By: #### Lm HARRIS, 2131-12 #### [facility] ([id number]) [address], [address] [place] [address] Urea nitrogen [Mass/Vol] 22 mg/dL Normal 5-27 [facility] Comment on above: Performed By: #### Lm HARRIS, 2131-12 #### [facility] ([id number]) [address], [address] [place] [address] VITAMIN B12on 12-25-2023 Cobalamin (Vitamin B12) [Mass/Vol] pg/mL High 180-914 [facility] Comment on above: Performed By: #### Lm HARRIS, 2131-12 #### [facility] ([id number]) [address] [place] [address] CBC AND AUTO DIFFon 12-21-19 24 ABSOLUTE BASOPHIL 0.0 X10E9/L Normal 0.0-0.2 [facility] Comment on above: Performed By: #### C HAYLEY CMP, 3040-3 #### [facility] ([id number]) [address] [place] [address], [place] [address] ABSOLUTE NEUTROPHIL 7.4 X10E9/L High 1.5-6.6 [facility] Comment on above: Performed By: #### C HAYLEY CMP, 3039-3 #### [facility] ([id number]) [address] [place] [address] Basophils/100 WBC (Bld) 0.3 % Normal [facility] Comment on above: Performed By: #### Renee HARDY CMP, 3039-3 #### [facility] ([id number]) [address] [place] [address] Eosinophils (Bld) [#/Vol] 0.1 10*3/uL Normal 0.0-0.4 [facility] Comment on above: Performed By: #### Renee HARDY CMP, 3039-06 #### [facility] ([id number]) [address] [place] [address] 39255 Eosinophils/100 WBC (Bld) 0.7 % Normal [facility] Comment on above: Performed By: #### Renee HARDY [facility], 3 #### [facility] ([id number]) [address] [place] [address] 34804 Erythrocyte distribution width (RBC) [Ratio] 15.3 % High 11.5-15.0 [facility] Comment on above: Performed By: #### Renee HARDY [facility], 3039-06 #### [facility] ([id number]) [address] [place] [address] 85967 Hematocrit (Bld) [Volume fraction] 35.6 % Normal 35-47 [facility] Comment on above: Performed By: #### Renee HARDY [facility], 3 #### [facility] ([id number]) [address] [place] [address] 82544 Hemoglobin (Bld) [Mass/Vol] 11.8 g/dL Normal 11.7-15.5 [facility] Comment on above: Performed By: #### Renee HARDY CMP, 3039-3 #### [facility] ([id number]) [address] [place] [address] 49669 Lymphocytes (Bld) [#/Vol] 1.1 10*3/uL Normal 1.0-3.5 [facility] Comment on above: Performed By: #### Renee HARDY CMP, 3039-3 #### [facility] ([id number]) [address] [place] [address] 41352 Lymphocytes/100 WBC (Bld) 11.6 % Normal [facility] Comment on above: Performed By: #### Renee HARDY CMP, 3039-06 #### [facility] ([id number]) [address] [place] [address] 46476 MCH (RBC) [Entitic mass] 27.8 pg Normal 27-34 [facility] Comment on above: Performed By: #### Renee HARDY CMP, 3 #### [facility] ([id number]) [address] [place] [address] 81299 MCHC (RBC) [Mass/Vol] 33.1 g/dL Normal 32-36 [facility] Comment on above: Performed By: #### Renee HARDY [facility], 3039-06 #### [facility] ([id number]) [address] [place] [address] 40299 MCV (RBC) [Entitic vol] 84 fL Normal 80-100 [facility] Comment on above: Performed By: #### Renee HARDY CMP, 3039-06 #### [facility] ([id number]) [address] [place] [address] 08286 Monocytes (Bld) [#/Vol] 0.6 10*3/uL Normal 0-0.9 [facility] Comment on above: Performed By: #### Renee HARDY CMP, 3039-3 #### [facility] ([id number]) [address] [place] [address] 39907 Monocytes/100 WBC (Bld) 6.4 % Normal [facility] Comment on above: Performed By: #### Renee HARDY CMP, 3040-3 #### [facility] ([id number]) [address] [place] [address] 59303 Neutrophils/100 WBC (Bld) 81.0 % Normal [facility] Comment on above: Performed By: #### Renee HARDY CMP, 3039-3 #### [facility] ([id number]) [address] [place] [address] 62360 Platelet mean volume (Bld) [Entitic vol] 8.9 fL Normal 7-12 [facility] Comment on above: Performed By: #### Renee HARDY CMP, 3039-3 #### [facility] ([id number]) [address] [place] [address] 42496 Platelets (Bld) [#/Vol] 255 10*3/uL Normal 150-450 [facility] Comment on above: Performed By: #### Renee HARDY CMP, 3039-3 #### [facility] ([id number]) [address] [place] [address] 12832 RBC COUNT 4.24 X10E12/L Normal 3.80-5.20 [facility] Comment on above: Performed By: #### Renee HARDY CMP, 3039-3 #### [facility] ([id number]) [address] [place] [address] 89258 WBC (Bld) [#/Vol] 9.1 10*3/uL Normal 4.0-11.0 [facility] Comment on above: Performed By: #### Renee HARDY CMP, 3039-3 #### [facility] ([id number]) [address] [place] [address] 85115 COMPREHENSIVE METABOLIC PANE Ulices 2023 Albumin [Mass/Vol] 4.2 g/dL Normal 3.2-5.3 [facility] Comment on above: Performed By: #### C BCA, CMP, 0-3 #### [facility] ([id number]) [address] [place] [address] 17899 ALP [Catalytic activity/Vol] 63 U/L Normal 39-130 [facility] Comment on above: Performed By: #### C BCA, CMP, 0-3 #### [facility] ([id number]) [address] [place] [address] 46717 ALT [Catalytic activity/Vol] 14 U/L Normal 0-31 [facility] Comment on above: Performed By: #### C BCA, CMP, 3039-3 #### [facility] ([id number]) [address] [place] [address] 81771 Anion gap [Moles/Vol] 7 mmol/L Normal 5-15 [facility] Comment on above: Performed By: #### C BCA, CMP, 3039-3 #### [facility] ([id number]) [address] [place] [address] 20479 AST [Catalytic activity/Vol] 20 U/L Normal 0-41 [facility] Comment on above: Performed By: #### C BCA, CMP, 3039-3 #### [facility] ([id number]) [address] [place] [address] 47580 Bilirubin [Mass/Vol] 0.5 mg/dL Normal 0.3-1.2 [facility] Comment on above: Performed By: #### C BCA, CMP, 3039-3 #### [facility] ([id number]) [address] [place] [address] 26932 Calcium [Mass/Vol] 8.5 mg/dL Normal 8.5-10.5 [facility] Comment on above: Performed By: #### C BCA, CMP, 0-3 #### [facility] ([id number]) [address] [place] [address] 33992 Chloride [Moles/Vol] 105 mmol/L Normal 98-109 [facility] Comment on above: Performed By: #### C HAYLEY [facility], 3040-3 #### [facility] ([id number]) [address] [place] [address] 63021 CO2 [Moles/Vol] 22 mmol/L Normal 22-32 [facility] Comment on above: Performed By: #### C HAYLEY [facility], 3039-3 #### [facility] ([id number]) [address] [place] [address] 92791 Creatinine [Mass/Vol] 0.64 mg/dL Normal 0.40-1.00 [facility] Comment on above: Result Comment: METH OD TRACEABLE TO IDMS STANDARD Performed By: #### C TANNER HARDY, 3039-3 #### [facility] ([id number]) [address] [place] [address] 87113 eGFR (CKD-EPI) NON-RACE DEPENDENT >90 Normal >59 [facility] Comment on above: Result Comment: Reported eGFR is based on the CKD-EPI 2020 equation that does not use a race coefficient. Performed By: #### C TANNER HARDY, 0-3 #### [facility] ([id number]) [address] [place] [address] 41947 Glucose [Mass/Vol] 123 mg/dL High 65-99 [facility] Comment on above: Performed By: #### C TANNER HARDY, 3039-3 #### [facility] ([id number]) [address] [place] [address] 87000 Potassium [Moles/Vol] 3.8 mmol/L Normal 3.5-5.0 [facility] Comment on above: Performed By: #### C TANNER HARDY, 3039-3 #### [facility] ([id number]) [address] [place] [address], [place] [address] Protein [Mass/Vol] 7.3 g/dL Normal 6.0-8.0 [facility] Comment on above: Performed By: #### C HAYLEY [facility], 3040-3 #### [facility] ([id number]) [address] [place] [address] 05678 Sodium [Moles/Vol] 134 mmol/L Normal 134-146 [facility] Comment on above: Performed By: #### C HAYLEY [facility], 3040-3 #### [facility] ([id number]) [address] [place] [address] 17391 Urea nitrogen [Mass/Vol] 18 mg/dL Normal 5-27 [facility] Comment on above: Performed By: #### C HAYLEY [facility], 3040-3 #### [facility] ([id number]) [address] [place] [address] 76771 LIPASEon 2023 Lipase [Catalytic activity/Vol] 26 U/L Normal 17-40 [facility] Comment on above: Performed By: #### Renee HARDY [facility], 3040-3 #### [facility] ([id number]) [address] [place] [address] 51570 SARS/FLU A+B/RSV by NAAT/Mol ecularon 2023 SARS/FLU [...] operators who are performing tests using either GeneXTr[employer] DX or GeneXTrade[employer] Infinity systems and is limited to laboratories that [...] repeat. Fact Sheet for Healthcare Providers: https://www.fda.gov/me yg/194003/download Fact Sheet for Patients: https://www.fda.gov/me yg/003607/download Normal [facility] Comment on above: Performed By: #### C OVFLR #### [facility] ([id number]) [address] [place] [address] 24483 URN MACROSCOPIC NURon 2023 BILIRUBIN STUART Negative Normal NEG [facility] Comment on above: Performed By: #### N UM #### [facility] ([id number]) [address] [place] [address] 50009 BLOOD/HGB STUART Small Abnormal NEG [facility] Comment on above: Performed By: #### N UM #### [facility] ([id number]) [address] [place] [address] 69329 GLUCOSE STUART Negative Normal NEG [facility] Comment on above: Performed By: #### N UM #### [facility] ([id number]) [address] [place] [address] 24911 KETONES STUART Trace Abnormal NEG [facility] Comment on above: Performed By: #### N UM #### [facility] ([id number]) [address] [place] [address] 98289 LEUKOCYTE ESTERASE STUART Trace Abnormal NEG [facility] Comment on above: Performed By: #### N UM #### [facility] ([id number]) [address] [place] [address] 59200 NITRITE STUART Negative Normal NEG [facility] Comment on above: Performed By: #### N UM #### [facility] ([id number]) [address] [place] [address] 67955 PH STUART 5.5 Normal 5.0-8.5 [facility] Comment on above: Performed By: #### N UM #### [facility] ([id number]) [address] [place] [address] 69306 PROTEIN STUART Negative Normal NEG [facility] Comment on above: Performed By: #### N UM #### [facility] ([id number]) [address] [place] [address] 74886 SPECIFIC GRAVITY STUART 1.015 Normal 1.003-1.035 [place] Comment on above: Performed By: #### N UM #### [facility] ([id number]) [address] [place] [address] [place] [address] UROBILINOGEN STUART 0.2 eu/dL Normal <1.1 [facility] Comment on above: Performed By: #### N UM #### [facility] ([id number]) [address] [place] [address] 71694 $ Arthrocentesison 4 Sangeetha Quick DO 07/25/2023 [...] signs reviewed and stable MANUALLY TRANSCRIBED RESULTS [facility] Comprehensive metabolic pane ulices 05-30-2023 Albumin [Mass/Vol] 4.3 g/dL 3.2 - 5.3 g/dL [facility] ALP [Catalytic activity/Vol] 63 U/L 39 - 130 U/L [facility] ALT No additional P-5'-P [Catalytic activity/Vol] 15 U/L 0 - 31 U/L [facility] Anion gap [Moles/Vol] 6 mmol/L 5 - 15 mmol/L [facility] AST [Catalytic activity/Vol] 15 U/L 0 - 41 U/L [facility] Bilirubin [Mass/Vol] 0.3 mg/dL 0.3 - 1 .2 mg/dL [facility] Calcium [Mass/Vol] 9.1 mg/dL 8.5 - 10. 5 mg/dL [facility] Chloride [Moles/Vol] 105 mmol/L 98 - 10 9 mmol/L [facility] CO2 [Moles/Vol] 31 mmol/L 22 - 32 mmol/L [facility] Creatinine [Mass/Vol] 0.65 mg/dL 0.40 - 1.00 mg/dL [facility] Comment on above: METHOD TRACEABLE TO [facility] STANDARD eGFR (CKD-EPI)non-race dependent - PINF [facility] Comment on above: Reported eGFR is based on the CKD-EPI 2020 equation that does not use a race coefficient. Glucose [Mass/Vol] 101 mg/dL High 65 - 99 mg/dL [facility] Potassium [Moles/Vol] 4.4 mmol/L 3.5 - 5.0 mmol/L [facility] Protein [Mass/Vol] 6.9 g/dL 6.0 - 8.0 g/dL [facility] Sodium [Moles/Vol] 142 mmol/L 134 - 146 mmol/L [facility] Urea nitrogen [Mass/Vol] 18 mg/dL 5 - 27 mg/dL [facility] Lipid 1996 panelon 4 Cholesterol [Mass/Vol] 140 mg/dL Low 150 - 200 mg/dL [facility] Cholesterol in HDL [Mass/Vol] 55 mg/dL 39 - PINF mg/dL [facility] Comment on above: HDL <40 mg/dL - High Risk HDL > or = 40mg/dL- Desirable HDL >60 mg/dL - Negative Risk Cholesterol in LDL [Mass/Vol] 69 mg/dL NINF - 130 mg/dL [facility] Comment on above: LDL <100 mg/dL - Desirable LDL >160 mg/dL - High Risk Cholesterol in VLDL [Mass/Vol] 16 mg/dL 0 - 30 mg/dL [facility] Cholesterol.total/Ch olesterol in HDL [Mass ratio] 2.5 {ratio} 1.0 - 5.0 [facility] Triglyceride [Mass/Vol] 82 mg/dL 27 - 150 mg/dL [facility] No Panel Informationon 05-30 Interpretation and review of laboratory results Abnormal [facility] Thyroid profile includes TSH FT4on 05-30-2023 Free T4 [Mass/Vol] 0.92 ng/dL 0.61 - 1. 60 ng/dL [facility] TSH Qn 0.95 m[IU]/L [facility] MRI SHOULDER LT WO CONon MRI SHOULDER [...] of articular cartilage. Electronically authenticated by: DL ADRIANTODD Date: 2022-05-18 09:45 Normal [facility] COMPREHENSIVE METABOLIC PANE [facility] 08-29-2021 Albumin [Mass/Vol] 4.0 g/dL Normal 3.6-5.1 [facility] Comment on above: Performed By: #### 7 600, 927, 56338 #### [facility] [place] [address] [employer] Strategist: Finn Akins MD Albumin/Globulin [Mass ratio] 1.9 {ratio} Normal 1.0-2.5 [facility] Comment on above: Performed By: #### 7 600, 927, 33236 #### [facility] [place] [address] [employer] Strategist: Finn Akins MD ALP [Catalytic activity/Vol] 56 U/L Normal 37-153 [facility] Comment on above: Performed By: #### 7 600, 927, 06045 #### [facility] [place] [address] [employer] Strategist: Finn Akins MD ALT [Catalytic activity/Vol] 18 U/L Normal 6-29 [facility] Comment on above: Performed By: #### 7 600, 927, 79747 #### [facility] [place] [address] [employer] Strategist: Finn Akins MD AST [Catalytic activity/Vol] 18 U/L Normal 10-35 [facility] Comment on above: Performed By: #### 7 600, 927, 47673 #### [facility] [place] [address] [employer] Strategist: Finn Akins MD Bilirubin [Mass/Vol] 0.4 mg/dL Normal 0.2-1.2 [facility] Comment on above: Performed By: #### 7 600, 927, 72526 #### [facility] [place] [address] [employer] Strategist: Finn Akins MD BUN/CREATININE RATIO NOT APPLICABLE Normal 6-22 [facility] Comment on above: Performed By: #### 7 600, 927, 27072 #### [facility] [address], [address] [place] [address] [employer]ist: Finn Akins MD Calcium [Mass/Vol] 8.8 mg/dL Normal 8.6-10.4 [facility] Comment on above: Performed By: #### 7 600, 927, 93472 #### [facility] [address], [address] [place] [address] [employer] Strategist: Finn Akins MD Chloride [Moles/Vol] 106 mmol/L Normal 98-110 [facility] Comment on above: Performed By: #### 7 600, 927, 11528 #### [facility] [address], [address] [place] [address] [employer] Strategist: Finn Akins MD CO2 [Moles/Vol] 30 mmol/L Normal 20-32 [facility] Comment on above: Performed By: #### 7 600, 927, 60053 #### [facility] [address], [address] [place] [address] [employer] Strategist: Finn Akins MD Creatinine [Mass/Vol] 0.67 mg/dL Normal 0.60-0.93 [facility] Comment on above: Result Comment: For patients >49 years of age, the reference limit for Creatinine is approximately 13% higher for people identified as -Chilean. Performed By: #### 7 600, 927, 51424 #### [facility] [address], [address] [place] [address] [employer] Strategist: Finn Akins MD eGFR NON-AFR. CYPRIOT 87 mL/min/1.73m2 Normal > OR = 60 [facility] Comment on above: Performed By: #### 7 600, 927, 75952 #### [facility] [address], [address] [place] [address] [employer] Strategist: Finn Akins MD GFR/1.73 sq M.predicted among blacks MDRD (S/P/Bld) [Vol rate/Area] 101 mL/min/{1.73_m2} Normal > OR = 60 [facility] Comment on above: Performed By: #### 7 600, 927, 76691 #### [facility] [place] [address] [employer] Strategist: Finn Akins MD Globulin (S) [Mass/Vol] 2.1 g/dL Normal 1.9-3.7 [facility] Comment on above: Performed By: #### 7 600, 927, 84417 #### [facility] [place] [address] [employer] Strategist: Finn Akins MD Glucose [Mass/Vol] 96 mg/dL Normal 65-99 [facility] Comment on above: Result Comment: Fasting reference interval Performed By: #### 7 600, 927, 98417 #### [facility] [place] [address] [employer] Strategist: Finn Akins MD Potassium [Moles/Vol] 3.9 mmol/L Normal 3.5-5.3 [facility] Comment on above: Performed By: #### 7 600, 927, 69246 #### [facility] [place] [address] [employer] Strategist: Finn Akins MD Protein [Mass/Vol] 6.1 g/dL Normal 6.1-8.1 [facility] Comment on above: Performed By: #### 7 600, 927, 60009 #### [facility] [place] [address] [employer] Strategist: Finn Akins MD Sodium [Moles/Vol] 143 mmol/L Normal 135-146 [facility] Comment on above: Performed By: #### 7 600, 927, 25963 #### [facility] [place] [address] [employer] Strategist: Finn Akins MD Urea nitrogen [Mass/Vol] 17 mg/dL Normal 7-25 [facility] Comment on above: Performed By: #### 7 600, 927, 38308 #### [facility] [address], [address] [place] [address] E [employer] Strategist: Finn Akins MD LIPID PANEL, [address] Cholesterol [Mass/Vol] 126 mg/dL Normal <200 [facility] Comment on above: Order Comment: FASTI NG:YES FASTING: YES Performed By: #### 7 600, 927, 45605 #### [facility] [address], [address] [place] [address] [employer] Strategist: Finn Akins MD Cholesterol in HDL [Mass/Vol] 46 mg/dL Low > OR = 50 [facility] Comment on above: Order Comment: FASTI NG:YES FASTING: YES Performed By: #### 7 600, 927, 88096 #### [facility] [address], [address] [place] [address] [employer] Strategist: Finn Akins MD Cholesterol in LDL [Mass/Vol] [...] LDL-C. Aguilar HOLCOMB et al. MCKAY. 2013;310(19): 9570-9212 (http://education.Bevy.WatchParty/faq/TUI534) Performed By: #### 7 600, 927, 35366 #### [facility] [address], [address] [place] [address] [employer] Strategist: Finn Akins MD Cholesterol.total/Ch olesterol in HDL [Mass ratio] 2.7 {ratio} Normal <5.0 [facility] Comment on above: Order Comment: FASTI NG:YES FASTING: YES Performed By: #### 7 600, 927, 79722 #### [facility] [address], [address] [place] [address] E [employer] Strategist: Finn Akins MD NON HDL CHOLESTEROL 80 mg/dL (calc) Normal <130 [facility] Comment on above: Order Comment: FASTI NG:YES FASTING: YES Result Comment: For patients with diabetes plus 1 major ASCVD risk factor, treating to a non-HDL-C goal of <100 mg/dL (LDL-C of <70 mg/dL) is considered a therapeutic option. Performed By: #### 7 600, 927, 96287 #### [facility] [place] [address] [employer] Strategist: Finn Akins MD Triglyceride [Mass/Vol] 86 mg/dL Normal <150 [facility] Comment on above: Order Comment: FASTI NG:YES FASTING: YES Performed By: #### 7 600, 927, 83515 #### [facility] [place] [address] [employer] Strategist: Finn Akins MD VITAMIN B12on 08-29-2021 Cobalamin (Vitamin B12) [Mass/Vol] 184 pg/mL Low 200-1100 [facility] Comment on above: Performed By: #### 7 600, 927, 77627 #### [facility] [place] [address] [employer] Strategist: Finn Akins MD BASIC METABOLIC PANELon Calcium [Mass/Vol] 9.2 mg/dL Normal 8.6-10.4 [facility] Comment on above: Performed By: #### 9 27, 82998, 82699 #### [facility] [place] [address] [employer] Strategist: Finn Akins MD Chloride [Moles/Vol] 102 mmol/L Normal 98-110 [facility] Comment on above: Performed By: #### 9 27, 05484, 38237 #### [facility] [place] [id number] E [employer] Strategist: Finn Akins MD CO2 [Moles/Vol] 28 mmol/L Normal 20-32 [facility] Comment on above: Performed By: #### 9 , 89461, 24739 #### [facility] [place] [address] [employer] Strategist: Finn Akins MD Creatinine [Mass/Vol] 0.56 mg/dL Low 0.60-0.93 [facility] Comment on above: Result Comment: For patients >49 years of age, the reference limit for Creatinine is approximately 13% higher for people identified as -Chilean. Performed By: #### 9 , 12648, 87397 #### [facility] [place] [address] [employer] Strategist: Finn Akins MD eGFR NON-AFR. CYPRIOT 93 mL/min/1.73m2 Normal > OR = 60 [facility] Comment on above: Performed By: #### 9 , 47746, 63796 #### [facility] [place] [address] [employer] Strategist: Finn Akins MD GFR/1.73 sq M.predicted among blacks MDRD (S/P/Bld) [Vol rate/Area] 107 mL/min/{1.73_m2} Normal > OR = 60 [facility] Comment on above: Performed By: #### 9 , 27420, 72282 #### [facility] [place] [address] [employer] Strategist: Finn Akins MD Glucose [Mass/Vol] 97 mg/dL Normal 65-99 [facility] Comment on above: Result Comment: Fasting reference interval Performed By: #### 9 , 54093, 71859 #### [facility] [place] [address] [employer] Strategist: Finn Akins MD Potassium [Moles/Vol] 3.8 mmol/L Normal 3.5-5.3 [facility] Comment on above: Performed By: #### 9 , 92929, 44851 #### [facility] of [address], [address] [place] [address] E [employer] Strategist: Finn Akins MD Sodium [Moles/Vol] 140 mmol/L Normal 135-146 [facility] Comment on above: Performed By: #### 9 , 14401, 70467 #### [facility] [place] [address] [employer] Strategist: Finn Akins MD Urea nitrogen [Mass/Vol] 14 mg/dL Normal 7-25 [facility] Comment on above: Performed By: #### 9 , 06672, 12695 #### [facility] [place] [address] [employer] Strategist: Finn Akins MD Urea nitrogen/Creatinine [Mass ratio] 25 mg/mg High 6-22 [facility] Comment on above: Performed By: #### 9 , 39283, 93973 #### [facility] [place] [address] [employer] Strategist: Finn Akins MD TSH+FREE T4on 04-19-2021 Free T4 [Mass/Vol] 1.2 ng/dL Normal 0.8-1.8 [facility] Comment on above: Performed By: #### 9 , 03849, 04293 #### [facility] [place] [address] [employer] Strategist: Finn Akins MD TSH Qn 0.55 m[IU]/L Normal 0.40-4.50 [facility] Comment on above: Performed By: #### 9 , 19999, 62739 #### [facility] [place] [address] [employer] Strategist: Finn Akins MD VITAMIN B12on 04-19-2021 Cobalamin (Vitamin B12) [Mass/Vol] 133 pg/mL Low 200-1100 [facility] Comment on above: Performed By: #### 9 , 02674, 14654 #### [facility] [address], [address] [place] [address] E [employer] Strategist: Finn Akins MD Vital Signs Date Time Vital Sign Value Performing Clinician Facility 11-02-2024 16:15-0400 Body height 149.9 cm Sangeetha Quick DO Work Phone: [facility] [employer] [facility] 11-02-2024 16:15-0400 Body mass index (BMI) [Ratio] 29.84 kg/m2 Sangeetha Quick DO Work Phone: [facility] 11-02-2024 16:15-0400 Body temperature 98.2 [degF] Sangeetha Dunbars DO Work Phone: [facility] 11-02-2024 16:15-0400 Body weight 67.04 kg Sangeetha Quick DO Work Phone: [facility] 11-02-2024 16:15-0400 Diastolic blood pressure 82 mm[Hg] Sangeetha Quick DO Work Phone: [facility] 11-02-2024 16:15-0400 Heart rate 63 /min Sangeetha Dunbars DO Work Phone: [facility] 11-02-2024 16:15-0400 Respiratory rate 18 /min Sangeetha Quick DO Work Phone: [facility] 11-02-2024 16:15-0400 SaO2% (BldA) [Mass fraction] 99 % Sangeetha Quick DO Work Phone: [facility] 11-02-2024 16:15-0400 Systolic blood pressure 142 mm[Hg] Sangeetha Dunbars DO Work Phone: [facility] 08-18-2024 15:11-0400 Body height 149.9 cm Sangeetha Dunbars DO Work Phone: [facility] 08-18-2024 15:11-0400 Body mass index (BMI) [Ratio] 31.05 kg/m2 Sangeetha Yuhas DO Work Phone: [facility] 08-18-2024 15:11-0400 Body temperature 97.81 [degF] Sangeetha Dunbars DO Work Phone: [facility] 08-18-2024 15:11-0400 Body weight 69.76 kg Sangeetha Dunbars DO Work Phone: [facility] 08-18-2024 15:11-0400 Diastolic blood pressure 80 mm[Hg] Sangeetha Dunbars DO Work Phone: [facility] 08-18-2024 15:11-0400 Heart rate 78 /min Sangeetha Dunbars DO Work Phone: [facility] 08-18-2024 15:11-0400 Respiratory rate 20 /min Sangeetha Quick DO Work Phone: [facility] 08-18-2024 15:11-0400 SaO2% (BldA) [Mass fraction] 100 % Sangeetha Quick DO Work Phone: [facility] 08-18-2024 15:11-0400 Systolic blood pressure 140 mm[Hg] Sangeetha Dunbars DO Work Phone: [facility] 05-19-2024 14:32-0500 Body height 149.9 cm Sangeetha Dunbars DO Work Phone: [facility] 05-19-2024 14:32-0500 Body mass index (BMI) [Ratio] 30.13 kg/m2 Sangeetha Dunbars DO Work Phone: [facility] 05-19-2024 14:32-0500 Body temperature 98.49 [degF] Sangeetha Dunbars DO Work Phone: [facility] 05-19-2024 14:32-0500 Body weight 67.68 kg Sangeetha Dunbars DO Work Phone: [facility] 05-19-2024 14:32-0500 Diastolic blood pressure 78 mm[Hg] Sangeetha Yuhas DO Work Phone: [facility] 05-19-2024 14:32-0500 Heart rate 79 /min Sangeetha Quick DO Work Phone: [facility] 05-19-2024 14:32-0500 SaO2% (BldA) [Mass fraction] 97 % Sangeetha Quick DO Work Phone: [facility] 05-19-2024 14:32-0500 Systolic blood pressure 110 mm[Hg] Sangeetha Quick DO Work Phone: [facility] 02-27-2024 13:55-0500 Body height 149.9 cm Sangeetha Quick DO Work Phone: [facility] 02-27-2024 13:55-0500 Body mass index (BMI) [Ratio] 29.49 kg/m2 Sangeetha Quick DO Work Phone: [facility] 02-27-2024 13:55-0500 Body weight 66.22 kg Sangeetha Quick DO Work Phone: [facility] 02-27-2024 13:55-0500 Diastolic blood pressure 56 mm[Hg] Sangeetha Quick DO Work Phone: [facility] 02-27-2024 13:55-0500 Systolic blood pressure 107 mm[Hg] Sangeetha Quick DO Work Phone: [facility] 02-06-2024 14:17-0400 Body height 149.9 cm Pfo 4 [facility] 02-06-2024 14:17-0400 Body mass index (BMI) [Ratio] 29.63 kg/m2 Pfo 4 [facility] 02-06-2024 14:17-0400 Body temperature 98.2 [degF] Pfo 4 [facility] 02-06-2024 14:17-0400 Body weight 66.59 kg Pfo 4 [facility] 02-06-2024 14:17-0400 Diastolic blood pressure 56 mm[Hg] Pfo 4 [facility] 02-06-2024 14:17-0400 Heart rate 79 /min Pfo 4 [facility] 02-06-2024 14:17-0400 Respiratory rate 16 /min Pfo 4 [facility] 02-06-2024 14:17-0400 SaO2% (BldA) [Mass fraction] 99 % Pfo 4 [facility] 02-06-2024 14:17-0400 Systolic blood pressure 107 mm[Hg] Pfo 4 [facility] 01-20-2024 11:57-0400 Body height 149.9 cm Sangeetha Dunbars DO Work Phone: [facility] 01-20-2024 11:57-0400 Body mass index (BMI) [Ratio] 28.92 kg/m2 Sangeetha Jiménezhas DO Work Phone: [facility] 01-20-2024 11:57-0400 Body temperature 97.3 [degF] Sangeetha Dunbars DO Work Phone: [facility] 01-20-2024 11:57-0400 Body weight 64.95 kg aSngeetha Jiménezhas DO Work Phone: [facility] 01-20-2024 11:57-0400 Diastolic blood pressure 80 mm[Hg] Sangeetha Jiménezhas DO Work Phone: [facility] 01-20-2024 11:57-0400 Heart rate 65 /min Sangeetha Jiménezhas DO Work Phone: [facility] 01-20-2024 11:57-0400 Respiratory rate 18 /min Sangeetha Jiménezhas DO Work Phone: [facility] 01-20-2024 11:57-0400 SaO2% (BldA) [Mass fraction] 100 % Sangeetha Jiménezhas DO Work Phone: [facility] 01-20-2024 11:57-0400 Systolic blood pressure 150 mm[Hg] Sangeetha Jessyhas DO Work Phone: [facility] 12-24-2023 12:43-0400 Body height 149.9 cm Sangeetha Dunbars DO Work Phone: [facility] 12-24-2023 12:43-0400 Body mass index (BMI) [Ratio] 27.91 kg/m2 Sangeetha Dunbars DO Work Phone: [facility] 12-24-2023 12:43-0400 Body temperature 98.6 [degF] Sangeetha Dunbars DO Work Phone: [facility] 12-24-2023 12:43-0400 Body weight 62.69 kg Sangeetha Dunbars DO Work Phone: [facility] 12-24-2023 12:43-0400 Diastolic blood pressure 70 mm[Hg] Sangeetha Dunbars DO Work Phone: [facility] 12-24-2023 12:43-0400 Heart rate 83 /min Sangeetha Dunbars DO Work Phone: [facility] 12-24-2023 12:43-0400 SaO2% (BldA) [Mass fraction] 99 % Sangeetha Dunbars DO Work Phone: [facility] 12-24-2023 12:43-0400 Systolic blood pressure 120 mm[Hg] Sangeetha Dunbars DO Work Phone: [facility] 07-25-2023 10:52-0400 Body height 149.9 cm Sangeetha Dunbars DO Work Phone: [facility] 07-25-2023 10:52-0400 Body mass index (BMI) [Ratio] 30.98 kg/m2 Sangeetha Dunbars DO Work Phone: [facility] 07-25-2023 10:52-0400 Body temperature 99 [degF] Sangeetha Dunbars DO Work Phone: [facility] [employer] [facility] 07-25-2023 10:52-0400 Body weight 69.58 kg Sangeetha Dunbars DO Work Phone: [facility] [employer] [facility] 07-25-2023 10:52-0400 Diastolic blood pressure 72 mm[Hg] Sangeetha Dunbars DO Work Phone: [facility] [employer] [facility] 07-25-2023 10:52-0400 Heart rate 68 /min Sangeetha Dunbars DO Work Phone: [facility] [employer] [facility] 07-25-2023 10:52-0400 SaO2% (BldA) [Mass fraction] 98 % Sangeetha Dunbars DO Work Phone: [facility] [employer] [facility] 07-25-2023 10:52-0400 Systolic blood pressure 118 mm[Hg] Sangeetha Dunbars DO Work Phone: [facility] 07-01-2023 15:40-0400 Body height 149.9 cm Sangeetha Dunbars DO Work Phone: [facility] [employer] [facility] 07-01-2023 15:40-0400 Body mass index (BMI) [Ratio] 31.1 kg/m2 Sangeetha Dunbars DO Work Phone: [facility] [employer] [facility] 07-01-2023 15:40-0400 Body temperature 98.2 [degF] Sangeetha Dunbars DO Work Phone: [facility] [employer] [facility] 07-01-2023 15:40-0400 Body weight 69.85 kg Sangeetha Dunbars DO Work Phone: [facility] [employer] [facility] 07-01-2023 15:40-0400 Diastolic blood pressure 70 mm[Hg] Sangeetha Dunbars DO Work Phone: [facility] [employer] [facility] 07-01-2023 15:40-0400 Heart rate 87 /min Sangeetha Dunbars DO Work Phone: [facility] [employer] [facility] 07-01-2023 15:40-0400 SaO2% (BldA) [Mass fraction] 99 % Sangeetha Dunbars DO Work Phone: [facility] [employer] [facility] 07-01-2023 15:40-0400 Systolic blood pressure 136 mm[Hg] Sangeetha Quick DO Work Phone: [facility] [employer] 06-25-2023 11:23-0400 Body height 149.9 cm Sangeetha Quick DO Work Phone: [facility] [employer] 06-25-2023 11:23-0400 Body mass index (BMI) [Ratio] 31.06 kg/m2 Sangeetha Quick DO Work Phone: [facility] 06-25-2023 11:23-0400 Body temperature 98.29 [degF] Sangeetha Quick DO Work Phone: [facility] [employer] [facility] 06-25-2023 11:23-0400 Body weight 69.76 kg Sangeetha Quick DO Work Phone: [facility] [employer] [facility] 06-25-2023 11:23-0400 Diastolic blood pressure 70 mm[Hg] Sangeetha Quick DO Work Phone: [facility] 06-25-2023 11:23-0400 Heart rate 73 /min Sangeetha Quick DO Work Phone: [facility] [employer] [facility] 06-25-2023 11:23-0400 SaO2% (BldA) [Mass fraction] 97 % Sangeetha Quick DO Work Phone: [facility] [employer] [facility] 06-25-2023 11:23-0400 Systolic blood pressure 120 mm[Hg] Sangeetha Quick DO Work Phone: [facility] 05-30-2023 10:29-0500 Body height 149.9 cm Sangeetha Quick DO Work Phone: [facility] [employer] [facility] 05-30-2023 10:29-0500 Body mass index (BMI) [Ratio] 30.7 kg/m2 Sangeetha Quick DO Work Phone: [facility] [employer] [facility] 05-30-2023 10:29-0500 Body temperature 98.1 [degF] Sangeetha Quick DO Work Phone: [facility] 05-30-2023 10:29-0500 Body weight 68.95 kg Sangeetha Quick DO Work Phone: [facility] [employer] [facility] 05-30-2023 10:29-0500 Diastolic blood pressure 70 mm[Hg] Sangeetha Quick DO Work Phone: [facility] [employer] [facility] 05-30-2023 10:29-0500 Heart rate 71 /min Sangeetha Quick DO Work Phone: [facility] 05-30-2023 10:29-0500 SaO2% (BldA) [Mass fraction] 96 % Sangeetha Quick DO Work Phone: [facility] 05-30-2023 10:29-0500 Systolic blood pressure 120 mm[Hg] Sangeetha Quick DO Work Phone: [facility] Encounters Encounter Date Encounter Type Care Provider Facility Start: 12-08-2024 End: 12-08-2024 Refill Sangeetha Quick DO Work Phone: [facility] Comment on above: Hyperlipidemia, unsp ecified Start: 12-07-2024 End: 12-07-2024 ambulatory Delmer You MD Facility:[facility] Start: 11-18-2024 End: 11-18-2024 Refill Sangeetha Quick DO Work Phone: [facility] Comment on above: Cobalamin deficiency Start: 11-05-2024 End: 11-11-2024 Telephone encounter Salena Gandhi CMA [facility] Start: 11-03-2024 End: 11-03-2024 ambulatory [facility] Alek JIMÉNEZElieser [facility] Start: 11-02-2024 End: 11-02-2024 Office outpatient visit 25 minutes Sangeetha Quick DO Work Phone: [facility] Comment on above: Gastroenteritis due to norovirus (Primary Dx); Degenerative lumbar spinal stenosis; Hiatal hernia; Lichen planus atrophicus Start: 11-02-2024 End: 11-02-2024 ambulatory [facility] Alek [facility] Start: 10-26-2024 End: 10-26-2024 Telephone encounter Marcia Holder CMA [facility] Comment on above: Er Follow-up Start: 10-23-2024 End: 10-23-2024 Emergency department patient visit [facility] Start: 10-21-2024 End: 10-21-2024 Bamboo flowsheet Jr. Angella Campos Stepanic DO Work Phone: [facility] Start: 10-21-2024 End: 10-21-2024 Bamboo flowsheet Jr. Angella Campos Stepanic DO Work Phone: [facility] Start: 10-21-2024 End: 10-21-2024 Office outpatient visit 25 minutes Jr. Angella Campos Stepanic DO Work Phone: [facility] Comment on above: Acute pain of right shoulder (Primary Dx); Rotator cuff arthropathy, right Start: 10-21-2024 End: 10-21-2024 ambulatory JR.ANGELLA Not Available Start: 09-09-2024 End: 09-09-2024 Bamboo flowsheet Jr. Angella Campos Stepanic DO Work Phone: [facility] Start: 09-09-2024 End: 09-09-2024 Bamboo flowsheet Jr. Angella Campos Stepanic DO Work Phone: [facility] Start: 09-09-2024 End: 09-09-2024 Office outpatient visit 25 minutes JrTran Campos Stepanic DO Work Phone: [facility] Comment on above: Acute pain of right shoulder (Primary Dx); Nontraumatic complete tear of right rotator cuff Start: 09-09-2024 End: 09-09-2024 ambulatory JR.ANGELLA STEPANIC Not Available Start: 08-30-2024 End: 08-30-2024 Refill Sangeetha Quick DO Work Phone: [facility] Comment on above: Hypothyroidism Start: 08-18-2024 End: 08-18-2024 Office outpatient visit 25 minutes Sangeetha Quick DO Work Phone: [facility] Comment on above: Hyperlipidemia, unsp ecified hyperlipidemia type (Primary Dx); Hypothyroidism, unspecified type; Elevated blood pressure reading; Cobalamin deficiency Start: 08-18-2024 End: 08-18-2024 ambulatory [facility] Start: 08-18-2024 End: 08-18-2024 ambulatory [facility] Start: 07-13-2024 End: 07-13-2024 ambulatory Delmer You MD Facility:[facility] Start: 06-09-2024 End: 06-09-2024 Refill Sangeetha Quick DO Work Phone: [facility] Comment on above: Hyperlipidemia, unsp ecified Start: 05-22-2024 End: 05-22-2024 [facility] Start: 05-19-2024 End: 05-19-2024 [facility] Start: 05-19-2024 End: 05-19-2024 Office outpatient visit 25 minutes Sangeetha Quick DO Work Phone: [facility] Comment on above: Hypothyroidism, unsp ecified type (Primary Dx); Right foot pain; Vitamin D deficiency; Cobalamin deficiency; Lichen planus atrophicus Start: 05-19-2024 End: 05-19-2024 ambulatory [facility] Start: 02-27-2024 End: 02-27-2024 ambulatory [facility] Start: 02-27-2024 End: 02-27-2024 Patient encounter procedure Sangeetha Quick DO Work Phone: [facility] Comment on above: Encounter for subseq uent annual wellness visit (AWV) in Medicare patient (Primary Dx) Start: 02-25-2024 End: 02-25-2024 Refill Sangeetha Quick DO Work Phone: [facility] - Family Medicine Comment on above: Hypothyroidism; Deficiency of other specified B group vitamins; Vitamin D deficiency, unspecified; Hordeolum externum of right upper eyelid Start: 02-06-2024 End: 02-06-2024 ambulatory [facility] 4 Alicia Kim [facility] Comment on above: Age-related osteopor osis without current pathological fracture (Primary Dx) Start: 02-05-2024 End: 02-05-2024 ambulatory [facility] Start: 02-03-2024 End: 02-03-2024 Telephone encounter Fatoumata Chacko [facility] - Family [facility] Start: 01-22-2024 End: 01-22-2024 Telephone encounter Sangeetha Alek Quick DO Work Phone: [facility] Start: 01-20-2024 End: 01-20-2024 Tyrone Mckeon DO Work Phone: [facility] Start: 01-20-2024 End: 01-20-2024 Tyrone Mckeon DO Work Phone: [facility] Start: 01-20-2024 End: 01-20-2024 ambulatory [facility] Start: 01-20-2024 End: 01-20-2024 Office outpatient visit 25 minutes Jr. Angella Mckeon DO Work Phone: [facility] Comment on above: Primary osteoarthrit is [...] 01-07-2024 End: 01-07-2024 Bamboo flowsheet Kathryn Cagle [employer] Work Phone: [facility] Start: 01-07-2024 End: 01-07-2024 Office outpatient visit 10 minutes Kathryn Cagle [employer] Work Phone: [facility] Comment on above: Primary localized os teoarthritis of left knee (Primary Dx); Left knee pain, unspecified chronicity Start: 01-07-2024 End: 01-07-2024 ambulatory KATHRYN CAGLE Not Available Start: 12-26-2023 End: 12-26-2023 ambulatory [facility] Start: 12-25-2023 End: 12-25-2023 ambulatory [facility] Start: 12-24-2023 End: 12-24-2023 Office outpatient visit 25 minutes [facility] Work Phone: [facility] Comment on above: Diarrhea, unspecifie d type (Primary Dx); Primary osteoarthritis of knees, bilateral; Vitamin D deficiency; Cobalamin deficiency; Age-related osteoporosis without current pathological fracture; Nausea and vomiting, unspecified vomiting type Start: 12-24-2023 End: 12-24-2023 ambulatory [facility] Start: 12-23-2023 End: 12-24-2023 Telephone encounter Marcia Holedr [facility] Comment on above: Er Follow-up Start: 2023 End: 2023 Emergency department patient visit [facility] Start: 12-11-2023 End: 12-12-2023 Telephone encounter Dipika Sagastume [facility] Start: 08-21-2023 End: 08-23-2023 Telephone encounter Dipika Sagastume [facility] - Family Medicine Start: 07-25-2023 End: 07-25-2023 Office outpatient visit 15 minutes Sangeetha Quick DO Work Phone: [facility] Comment on above: Osteoarthritis of le ft shoulder, unspecified osteoarthritis type (Primary Dx) Start: 07-01-2023 End: 07-01-2023 Office outpatient visit 25 minutes Sangeetha Quick DO Work Phone: [facility] Comment on above: 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, bilateral (Primary Dx); Osteoarthritis of left shoulder, unspecified osteoarthritis type; Immunization due Start: 06-25-2023 End: 06-25-2023 Office outpatient visit 25 minutes Sangeetha Quick DO Work Phone: [facility] Comment on above: Localized osteoarthr itis of left knee (Primary Dx) Start: 05-30-2023 End: 05-30-2023 Office outpatient visit 25 minutes Sangeetha Quick DO Work Phone: [facility] [...] 11-02-2024 Adult depression scr eening assessment Sangeetha Trent DO Work Phone: Start: 10-21-2024 Arthrocentesis aspir &/inj major jt/bursa w/o us Jr. Angella Mckeon DO Work Phone: Start: 09-09-2024 Arthrocentesis aspir &/inj major jt/bursa w/o us Jr. Angella Mckeon DO Work Phone: Start: 09-09-2024 Radex shoulder compl ete minimum 2 views JrTran Mckeon DO Work Phone: Start: 08-18-2024 Adult depression scr eening assessment Sangeetha Jessyromulo DO Work Phone: Start: 05-19-2024 Adult depression scr eening assessment Sangeetha Quick DO Work Phone: Start: 02-27-2024 Adult depression scr eening assessment Sangeetha Manjinderelieser DO Work Phone: Start: 01-20-2024 Adult depression scr eening assessment Sangeetha Manjinderelieser DO Work Phone: Start: 01-07-2024 Radiologic examinati on knee 1/2 views Kathryn Cagle NP Work Phone: Start: 12-24-2023 Follow-up visit Follow-up SANGEETHA QUICK Start: 12-24-2023 Adult depression scr eening assessment Sangeetha Quick DO Work Phone: Start: 07-25-2023 Arthrocentesis aspir &/inj major jt/bursa w/o Sangeetha Quick DO Work Phone: Start: 07-25-2023 [...] Start: 11-02-2025 Depression Screening Depression Scre ening [facility] Start: 11-02-2025 Fall Risk Screening Fall Risk Screen ing [facility] Start: 11-02-2025 Tobacco Screening Tobacco Screening [facility] Start: 08-18-2025 Depression Screening Depression Scre ening [facility] Start: 08-18-2025 Fall Risk Screening Fall Risk Screen ing [facility] Start: 08-18-2025 Tobacco Screening Tobacco Screening [facility] Start: 05-19-2025 Depression Screening Depression Scre ening [facility] Start: 05-19-2025 Fall Risk Screening Fall Risk Screen ing [facility] Start: 05-19-2025 Tobacco Screening Tobacco Screening [facility] Start: 03-02-2025 End: 03-02-2025 Patient encounter procedure 03/02/2025 2:20 PM EST [facility] [address] [place] [id number] [facility] Start: 02-26-2025 Depression Screening Depression Scre ening [facility] Start: 02-26-2025 Fall Risk Screening Fall Risk Screen ing [facility] Start: 11-14-2025 Medicare Annual Well ness Visit Medicare Annual Wellness Visit [facility] Start: 01-19-2025 Adult BMI Screening Adult BMI Screen ing [facility] Start: 01-19-2025 Depression Screening Depression Scre ening [facility] Start: 01-19-2025 Fall Risk Screening Fall Risk Screen ing [facility] Start: 01-19-2025 Tobacco Screening Tobacco Screening [facility] Start: 12-23-2024 Adult BMI Screening Adult BMI Screen ing [facility] Start: 12-23-2024 Depression Screening Depression Scre ening [facility] Start: 12-23-2024 Fall Risk Screening Fall Risk Screen ing [facility] Start: 12-23-2024 Tobacco Screening Tobacco Screening [facility] Start: 12-16-2024 End: 12-16-2024 Patient encounter procedure 12/16/2024 10:30 AM EDT Office Visit [facility] [address] [place] [address] Jr. Angella Mckeon, DO [address] [place] [address] [facility] Start: 12-14-[address] [facility] Start: 11-02-2024 End: 11-02-2025 XR Lumbar spine 2 or 3 Views X-ray spine lumbar 2 or 3 views Imaging Routine Degenerative lumbar spinal stenosis Expected: 11/02/2024, Expires: 11/02/2025 [facility] Work Phone: Comment on above: Expected: 11/02/2024 , Expires: 11/02/2025 Start: 10-21-2024 End: 10-21-2024 Patient encounter procedure [facility] Comment on above: Arrived Start: 09-09-2024 End: 09-09-2024 Patient encounter procedure 09/09/2024 9:30 AM EDT Office Visit [facility] [address] [place] [id number] Jr. Angella Mckeon, [address] [place] [address] Acute pain of right shoulder [facility] Comment on above: Acute pain of right shoulder Start: 07-24-2024 Adult BMI Screening Adult BMI Screen ing [facility] Start: 07-24-2024 Depression Screening Depression Scre ening [facility] Start: 07-24-2024 Fall Risk Screening Fall Risk Screen ing [facility] Start: 07-24-2024 Tobacco Screening Tobacco Screening [facility] Start: 07-20-2024 COVID-19 Vaccine ( season) COVID-19 Vaccine () [facility] Start: 06-30-2024 Adult BMI Screening Adult BMI Screen ing [facility] Start: 06-30-2024 Depression Screening Depression Scre ening [facility] Start: 06-30-2024 Fall Risk Screening Fall Risk Screen ing [facility] Start: 06-30-2024 Tobacco Screening Tobacco Screening [facility] Start: 06-24-2024 Adult BMI Screening Adult BMI Screen ing [facility] Start: 06-24-2024 Depression Screening Depression Scre ening [facility] Start: 06-24-2024 Fall Risk Screening Fall Risk Screen ing [facility] Start: 06-24-2024 Tobacco Screening Tobacco Screening [facility] Start: 05-30-2024 Adult BMI Screening Adult BMI Screen ing [facility] Start: 05-30-2024 Depression Screening Depression Scre ening [facility] Start: 05-30-2024 Fall Risk Screening Fall Risk Screen ing [facility] Start: 05-30-2024 Tobacco Screening Tobacco Screening [facility] Start: 05-22-2024 COVID-19 Vaccine ( season) COVID-19 Vaccine () [facility] Start: 05-21-2024 DTaP,Tdap and Td Vaccines (2 - Td or Tdap) DTaP,Tdap and Td Vaccines (2 - Td or Tdap) [facility] Start: 05-19-2024 End: 05-19-2025 XR Foot - right 3 Views X-ray foot right minimum 3 views Imaging Routine Right foot pain Expected: 05/19/2024, Expires: 05/19/2025 [facility] Work Phone: Comment on above: Expected: 05/19/2024 , Expires: 05/19/2025 Start: 03-19-2024 End: 03-19-2024 Patient encounter procedure 03/19/2024 4:15 PM EST [facility] [address] [place] [address] Sangeetha Quick, [address] [facility] [place] [address] [facility] Internal [facility] Start: 03-16-2024 End: 03-16-2024 Patient encounter procedure 03/16/2024 10:00 AM EST Office Visit [facility] [address] [place] [phone] Kathryn Cagle, BIN PACKER [address] [place] [address] [facility] Start: 02-27-2024 End: 02-27-2024 Patient encounter procedure 02/27/2024 1:40 PM EST [facility] [address] [place] [address] [facility] Start: 01-20-2024 End: 01-20-2024 Patient encounter procedure [facility] Comment on above: Arrived Start: 01-07-2024 End: 01-07-2024 Patient encounter procedure 01/07/2024 10:30 AM EDT Office Visit [facility] [address] [place] [address] [place] [phone] Kathryn Cagle, BIN PACKER [address] [place] [address] Arrived [facility] Comment on above: Arrived Start: 12-26-2023 End: 12-26-2023 Patient encounter procedure 12/26/2023 1:45 PM EDT Appointment [facility] - Mammogram DEXA [address] [place] [phone] Sangeetha Quick, DO [address] [place] [address] [facility] - Mammogram DEXA Start: 12-24-2023 End: 12-23-2024 GI Panel(stool pathogen panel) GI Panel(stool pathogen panel) Lab Routine Diarrhea, unspecified type Expected: 12/24/2023, Expires: 12/23/2024 [facility] Work Phone: Comment on above: Expected: 12/24/2023 , Expires: 12/23/2024 Start: 12-24-2023 End: 12-24-2023 Patient encounter procedure 12/24/2023 1:00 PM EDT Office Visit [facility] Medicine - Family Medicine [address] [place] [address] Sangeetha Quick, DO [address] [place] [address] [facility] Internal Medicine - Family Medicine Start: 12-15-2023 COVID-19 Vaccine ( season) COVID-19 Vaccine ( season) [facility] Start: 12-15-2023 Influenza vaccination [facility] Start: 12-03-2023 End: 12-03-2023 Patient encounter procedure 12/03/2023 2:00 PM EDT [facility] [address] [place] [phone] [facility] Internal Medicine - Family Medicine Start: 11-28-2023 Medicare Annual Well ness Visit Medicare Annual Wellness Visit [facility] Start: 07-14-2023 Influenza vaccination Influenza Vacc ine [facility] Comment on above: Postponed from 12/14 (Vaccine Not Available) Start: 06-25-2023 End: 06-24-2024 XR Knee - left 3 Views X-ray knee left 3 views Imaging Routine Localized osteoarthritis of left knee Expected: 06/25/2023, Expires: 06/24/2024 [employer] Work Phone: Comment on above: Expected: 06/25/2023 , Expires: 06/24/2024 Start: 12-14-2022 COVID-19 Vaccine ( season) COVID-19 Vaccine ( season) [facility] Start: 12-14-2022 Influenza vaccination Influenza Vacc ine [facility] Start: 12-20-1997 Administration of varicella zoster vaccine Zoster (Shingles) Vaccine (1 of 2) [facility] Start: 12-20-1965 Adult BMI Follow Up Plan Adult BMI Follow Up Plan [facility] End: 12-23-2024 Basic metabolic 2000 panel - Serum or Plasma Basic Metabolic Panel Lab Routine Diarrhea, unspecified type 1 Occurrences starting 12/24/2023 until 12/23/[address] [facility] [employer] Comment on above: 1 Occurrences starti ng 12/24/2023 until 12/23/2024 End: 05-19-2025 CBC W Auto Differential panel - Blood CBC auto differential Lab Routine Hypothyroidism, unspecified type 1 Occurrences starting 05/19/2024 until 05/19/[address] [facility] [employer] Comment on above: 1 Occurrences starti ng 05/19/2024 until 05/19/2025 End: 05-19-2025 Comprehensive metabolic 2000 panel - Serum or Plasma Comprehensive metabolic panel Lab Routine Hypothyroidism, unspecified type 1 Occurrences starting 05/19/2024 until 05/19/2025 [facility] [employer] Comment on above: 1 Occurrences starti ng 05/19/2024 until 05/19/2025 End: 08-18-2025 Comprehensive metabolic 2000 panel - Serum or Plasma Comprehensive metabolic panel Lab Routine Hyperlipidemia, unspecified hyperlipidemia type 1 Occurrences starting 08/18/2024 until 08/18/2025 [employer] Work Phone: Comment on above: 1 Occurrences starti ng 08/18/2024 until 08/18/2025 Comprehensive metabo lic 2000 panel - Serum or Plasma Comprehensive metabolic panel Lab Routine Hyperlipidemia, unspecified hyperlipidemia type 08/18/2024 3:42 PM EDT [facility] End: 05-19-2025 Cyanocobalamin vitamin b-12 Vitamin B12 Lab Routine Cobalamin deficiency 1 Occurrences starting 05/19/2024 until 05/19/2025 [facility] [employer] [facility] Comment on above: 1 Occurrences starti ng 05/19/2024 until 05/19/2025 End: 12-23-2024 Cyanocobalamin vitamin b-12 Vitamin B12 Lab Routine Cobalamin deficiency 1 Occurrences starting 12/24/2023 until 12/23/2024 [facility] [employer] [facility] Comment on above: 1 Occurrences starti ng 12/24/2023 until 12/23/2024 End: 08-18-2025 Lipid 1996 panel - Serum or Plasma Lipid profile Lab Routine Hyperlipidemia, unspecified hyperlipidemia type 1 Occurrences starting 08/18/2024 until 08/18/2025 [facility] Comment on above: 1 Occurrences starti ng 08/18/2024 until 08/18/2025 Lipid 1996 panel - S annette or Plasma Lipid profile Lab Routine Hyperlipidemia, unspecified hyperlipidemia type 08/18/2024 3:42 PM EDT [facility] End: 05-19-2025 Thyroid profile includes TSH FT4 Thyroid profile includes TSH FT4 Lab Routine Hypothyroidism, unspecified type 1 Occurrences starting 05/19/2024 until 05/19/2025 [facility] Comment on above: 1 Occurrences starti ng 05/19/2024 until 05/19/2025 End: 05-19-2025 Vitamin D 25 hydroxy Vitamin D 25 hydroxy Lab Routine Vitamin D deficiency 1 Occurrences starting 05/19/2024 until 05/19/2025 [facility] [employer] [facility] Comment on above: 1 Occurrences starti ng 05/19/2024 until 05/19/2025 Immunizations Immunization Date Immunization Notes Care Provider Fa cility 01-20-2024 Covid-19, Mrna, Lnp- s, Pf,christian-sucrose,30 Mcg/0.3ml Sangeetha Quick DO [facility] 01-20-2024 Seasonal trivalent influenza vaccine, adjuvanted, preservative free Sangeetha Quick DO Work Phone: [facility] 01-20-2024 Immunization, In Clinic,; Translations: [Drug or medicament (substance)] Sangeetha Dunbars DO Work Phone: [facility] 01-20-2024 influenza virus vacc ine, unspecified formulation Sangeetha Jiménezhas DO Work Phone: [facility] 01-22-2022 influenza virus vacc ine, unspecified formulation Kathryn Cagle NP Work Phone: [facility] 04-24-2017 Influenza, injectabl e, Madin Ammy Canine Kidney, preservative free, quadrivalent Sangeetha Dunbars DO Work Phone: [facility] 04-24-2017 influenza virus vacc ine, unspecified formulation Sangeetha Yuhas DO Work Phone: [facility] 03-15-2016 pneumococcal polysaccharide vaccine, 23 valent Sangeetha Jiménezhas DO Work Phone: [facility] 01-11-2016 influenza, seasonal, injectable, preservative free Sangeetha Jiménezhas DO Work Phone: [facility] 01-05-2015 influenza, seasonal, injectable, preservative free Sangeetha Jiménezhas DO Work Phone: [facility] 01-05-2015 pneumococcal conjuga te vaccine, 13 valent Sangeetha Jiménezhas DO Work Phone: [facility] 05-21-2014 pneumococcal polysaccharide vaccine, 23 valent Sangeetha Jiménezhas DO Work Phone: [facility] 05-21-2014 tetanus toxoid, redu mary diphtheria toxoid, and acellular pertussis vaccine, adsorbed Sangeetha Yuhas DO Work Phone: [facility] Payers Date Payer Category Payer Managed Care Other (unspecified) [employer] [id number] 2021 Commercial Managed C are - POS [employer] [id number] 2021 Private Health Insurance [id number] .[id number] 2010 Medicare [id number] .[id number] 1959 Medicare [id number] 1959 Private Health Insurance CLI [id number] 1945 Unknown [id number] 2.16.840.1.509876.3.579 .2.593 1945 Unknown [id number] 2.16.840.1.537723.3.579 .2.593 1947 Unknown [id number] 2.16.840.1.258975.3.579 .2.59 1947 Unknown [id number] 2.16.840.1.474312.3.579 .2.593 1947 Unknown [id number] 2.16.840.1.387833.3.579 .2.593 1947 Unknown [id number] 2.16.840.1.955865.3.579 .2.593 1947 Unknown [id number] 2.16.840.1.063616.3.579 .2.593 1947 Unknown [id number] 2.16.840.1.242308.3.579 .2.593 1947 Unknown [id number] 2.16.840.1.279332.3.579 .2.593 1947 Unknown [id number] 2.16.840.1.972801.3.579 .2.593 1947 Unknown [id number] 2.16.840.1.760603.3.579 .2.593 1947 Unknown [id number] 2.16840.1.600980.3.579 .2.593 1947 Unknown [id number] 2.16.840.1.857888.3.579 .2.593 1947 Unknown [id number] 2.16.840.1.092299.3.579 .2.593 1947 Unknown [id number] 2.16840.1.906285.3.579 .2.593 1947 Unknown [id number] 2.840.1.769090.3.579 .2.1286 1947 Unknown [id number] 2.16.840.1.204020.3.579 .2.1286 1947 Unknown [id number] 2.16.840.1.931521.3.579 .2.1259 1947 Unknown [id number] 2.16.840.1.333668.3.579 .2.1259 1947 Unknown [id number] 2.16.840.1.624186.3.579 .2.1259 1947 Unknown [id number] 2.16.840.1.504062.3.579 .2.1258 1947 Unknown [id number] 2.16.840.1.851870.3.579 .2.1258 1947 Unknown [id number] 2.16.840.1.253788.3.579 .2.1258 1947 Unknown [id number] 2.16840.1.261611.3.579 .2.1285 1947 Unknown [id number] 2.16840.1.530806.3.579 .2.1285 1947 Unknown [id number] 2.840.1.525562.3.579 .2.1285 1947 Unknown [id number] 2.840.1.711262.3.579 .2.1285 1947 Unknown [id number] 2.840.1.959669.3.579 .2.1285 1947 Unknown [id number] 2.840.1.876237.3.579 .2.1285 1947 Unknown [id number] 2.840.1.302389.3.579 .2.1285 1947 Unknown [id number] 2.840.1.507562.3.579 .2.1285 1947 Unknown [id number] 2.840.1.471136.3.579 .2.1285 1947 Unknown [id number] 2.840.1.256787.3.579 .2.1285 1947 Unknown [id number] 2.840.1.530321.3.579 .2.1285 1947 Unknown [id number] 2.840.1.823926.3.579 .2.1285 1947 Unknown [id number] 2.840.1.248739.3.579 .2.1286 1947 Unknown [id number] 2.16.840.1.421192.3.579 .2.1286 1947 Unknown [id number] 2.16.840.1.664015.3.579 .2.1286 1947 Unknown [id number] 2.16.840.1.727934.3.579 .2.196 1945 Unknown [id number] 2.16.840.1.700688.3.579 .2.196 Social History Date Type Detail Facility Start: 05-14-2022 End: 01-07-[address] [facility] Never smoked tobacco [facility] Work Phone: Start: 05-14-2022 End: 01-07-2024 Tobacco use and exposure Smokeless tobacco non-user [facility] Start: 01-07-2024 End: 10-21-2024 Alcoholic beverage intake Ex-drinker (finding) [facility] Start: 11-27-2022 End: 01-07-2024 History of Social function [facility] Start: 11-27-2022 End: 01-07-2024 Tobacco use panel [facility] Start: 1945 Sex assigned at Not on file [facility] Tobacco smoking stat [facility] Tobacco smoking consumption unknown [facility] Start: 05-19-2024 End: 11-02-2024 Alcoholic beverage intake Current non-drinker of alcohol (finding) [facility] Has the [employer], or [employer] threatened to shut off services in your home in past 12Mo No [facility] Do you belong to any clubs or organizations such as orthodoxy groups, unions, fraternal or athletic groups, or school groups? Yes [facility] Are you now , , , , never or living with a partner? [facility] How often to you hav e a drink containing alcohol? Never [facility] How many standard dr inks containing alcohol do you have on a typical day? Patient does not drink [facility] How hard is it for y ou to pay for the very basics like food, housing, medical care, and heating Somewhat hard [facility] Do you feel stress - tense, restless, nervous, or anxious, or unable to sleep at night because your mind is troubled all the time - these days [OSQ] Rather much [facility] Start: 11-18-2014 Sex Female (finding) [facility] How hard is it for y ou to pay for the very basics like food, housing, medical care, and heating Hard [facility] Do you feel stress - tense, restless, nervous, or anxious, or unable to sleep at night because your mind is troubled all the time - these days [OSQ] Very much [facility] Clinical Notes 09-07-2021 to 11-05-2024 Telephone Encounter [...] she will need a script sent to [facility] in [place]. Thank you. Message noted. I sent an order for Tramadol to [facility] in [place] documented in this encounter [facility] 11-05-2024 Telephone encounter Note Patient stopped in and she is in a lot of pain.and said the Meloxicam only work until noon. Her xrays have not been read yet. [facility] 11-05-2024 Telephone encounter Note Message noted. I reviewed her back xray. It shows osteoarthritis at multiple levels. If the Meloxicam is only working for part of the day, is she willing to take Tramadol to help supplement? She used that in the past with some success. Just let me know. [facility] 11-05-2024 Telephone encounter Note I spoke with pt and she agreed to take the Tramadol to supplement with the Meloxicam. Pt stated she will need a script sent to [facility] in [place]. Thank you. [facility] 11-05-2024 Telephone encounter Note Message noted. I sent an order for Tramadol to [facility] in [place] [facility] 11-02-2024 History of Present illness Narrative IM PROGRESS NOTE Patient - Rach Abrams Age - 78 y.o. - 1945 ASSESSMENT [...] has received LENY in the past at [place] pain management -had MRI scan approximately 3 [...] 42.5 g; Refill: 1 Subjective FOLLOW-UP: EMERGENCY DEPARTMENT-[place] Patient was discharged from the facility on: [...] Also has been to pain management in [place] and received LENY to the lumbar spine. [...] 10/23/2024 Auto Resulted Final POC Urine Specific [place] 10/23/2024 1.020 1.010, 1.015, 1.020, 1.025 Final [...] Testing No results found. Sangeetha Quick DO., [facility] Office: [phone] documented in this encounter [facility] 10-26-2024 Miscellaneous Notes ED Outreach This documentation is being used for Transition of Care purposes: Yes/No: Yes ED Outreach Date: October 26, 2024 ED Outreach Method: COMMUNICATION METHOD: Telephone ED Outreach Attempt: first ED Outreach Outcome: Contacted Patient Name of ED Facility: [facility] Date of ED Discharge: 10/23/2024 Discharge [...] with additional concerns. documented in this encounter [facility] 10-26-2024 Telephone encounter Note ED Outreach This documentation is being used for Transition of Care purposes: Yes/No: Yes ED Outreach Date: October 26, 2024 ED Outreach Method: COMMUNICATION METHOD: Telephone ED Outreach Attempt: first ED Outreach Outcome: Contacted Patient Name of ED Facility: [facility] Date of ED Discharge: 10/23/2024 Discharge [...] will contact the office with additional concerns. [facility] 10-21-2024 History of Present illness Narrative Associated Order(s): L Inj/Asp: R subacromial bursa Post-Procedure Diagnose(s): Acute pain of right shoulder Images from the original note were not included. HISTORY OF PRESENT ILLNESS: EST PT Rach Abrams is an 78 y.o. @ female. (EST PT) - RECHECK (R) SHOULDER DISCOMFORT S/P INJURY 06/12/24 (4 MONTHS, 10 DAYS) ; S/P CORTISONE INJ 09/09/24 (6 WKS) XRAY 09/09/24 IN [facility] MRI 08/11/24 @[facility] PER PT - POSSIBLY TOOK MDP FOR [...] DROPPING OBJECTS LESS FREQUENTLY - WEAKNESS. GOOD MAT MAN. 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 ADMITS POPPING / [...] Daily RT cholecalciferol (Vitamin D-3) 1.25 MG (73694 UT) capsule 1 capsule, Oral, Weekly ergocalciferol (Vitamin D2) 1.25 MG (30580 UT) capsule TAKE 1 CASPULE BY MOUTH [...] Use: Not At Risk (11/27/2022) Received from [facility] Frequency of Alcohol Consumption: Never [...] subacromial bursa 2. Rotator cuff arthropathy, right M12.811 PLAN: We have discussed her symptoms and [...] requiring urgent evaluation. documented in this encounter [facility] 09-09-2024 History of Present illness Narrative Associated Order(s): L Inj/Asp: R subacromial bursa Post-Procedure Diagnose(s): Acute pain of right shoulder Images from the original note were not included. HISTORY OF PRESENT ILLNESS: EST PT Rach Abrams is an 78 y.o. @ female. (EST PT) (NEW PROBLEM) - (R) SHOULDER DISCOMFORT S/P INJURY 06/12/24 (3 MONTHS) - OVERHEAD BARN DOOR OPENED AND CAME DOWN ONTO (R) SHOULDER XRAY TODAY, 09/09/24 IN [facility] MRI 08/11/24 @[facility] PER PT - POSSIBLY TOOK MDP FOR LBP IN 05/2024 NO CORTISONE INJ NO PT PAIN MGMT @[facility] (DR. YOU) SUPERIOR / POSTERIOR DISCOMFORT. RADIATION INTO UPPER ARM. ADMITS WARMTH TO TOUCH / DIFFUSE SWELLING. DENIES N/T. ADMITS DROPPING OBJECTS FREQUENTLY - WEAKNESS. GOOD MAT MAN. LIMITED ROM WITH ELEVATION / POSTERIOR MOVEMENT [...] Daily RT cholecalciferol (Vitamin D-3) 1.25 MG (25686 UT) capsule 1 capsule, Oral, Weekly ergocalciferol (Vitamin D2) 1.25 MG (64627 UT) capsule TAKE 1 CASPULE BY MOUTH [...] Use: Not At Risk (11/27/2022) [facility] [employer] Frequency of Alcohol Consumption: Never Average [...] requiring urgent evaluation. documented in this encounter [facility] 08-18-2024 History of Present illness Narrative IM PROGRESS NOTE Patient - Rach Abrams Age - 78 [facility] 1945 [id number] ASSESSMENT & PLAN 1. Hyperlipidemia, unspecified hyperlipidemia [...] and knees. Going to pain clinic at [place] and receiving injections.. Exam BP 140/80 (BP [...] Testing No results found. Sangeetha Quick DO., [facility] Office: [phone] documented in this encounter [facility] 05-19-2024 History of Present illness Narrative IM PROGRESS NOTE Patient - Rach Abrams Age - 78 y.o. - 1945 ASSESSMENT [...] 3. Vitamin D deficiency -currently taking D3 97251 units weekly because of low vitamin-D and [...] Testing No results found. Sangeetha Quick DO., [facility] Office: [phone] documented in this encounter [facility] 02-27-2024 History of Present illness Narrative Subjective SUBJECTIVE: Patient ID: Rach Abrams is a 78 y.o. female who presents [...] year (around 02/26/2025). documented in this encounter [facility] 02-06-2024 History of Present illness Narrative Pt here for reclast as scheduled. Has had in the past without issues. PIV initiated to LAC. Brisk blood return. Flushes with ease. Reclast infused over 15 minutes without incident. Line flushed. PIV removed. Pt dc'd in stable ambulatory condition. documented in this encounter [facility] 02-03-2024 Miscellaneous Notes Called pt to let her know that she just has to go get her labs drawn at the hospital and the orders are already in. documented in this encounter [facility] 02-03-2024 Telephone encounter Note Called pt to let her know that she just has to go get her labs drawn at the hospital and the orders are already in. [facility] 01-22-2024 Miscellaneous Notes [facility] Message noted. The order was sent. She can call them at any time Mailbox is full documented in this encounter [facility] 01-22-2024 Telephone encounter Note Patient called [facility] 01-22-2024 Telephone encounter Note Message noted. The order was sent. She can call them at any time [facility] 01-22-2024 Telephone encounter Note Mailbox is full [facility] 01-20-2024 History of Present illness Narrative IM PROGRESS NOTE Patient - Rach Abrams Age - 78 [facility]. - 1945 [facility] [id number] ASSESSMENT & PLAN Diagnosis Plan 1. Hordeolum [...] Testing No results found. Sangeetha Quick DO., [facility] Office: [phone] documented in this encounter [facility] [employer] [facility] 01-20-2024 History of Present illness Narrative HISTORY OF PRESENT ILLNESS: EST PT Rach Abrams is an 78 y.o. @ female. (EST PT; MOST RECENT VISIT WITH KATHRYN) RECHECK LT KNEE PAIN - HERE TO POSSIBLY DISCUSS SURGERY; WOULD LIKE TO WAIT UNTIL THE BEGINNING OF NEXT YEAR PT DID HAVE VISCO PER PAIN MANAGEMENT [facility] ~4-5WKS AGO; SOME RELIEF XRAY CHANGE 01/07/24 XRAY [facility] 09/11/23 XRAY [facility] 06/27/23 XRAY (08/26/18) @ [facility] (01/18/17) PER DR MCKEON PREVIOUS XRAYS (10/17/16) (AP STANDING) @ [facility]. PHYSICAL THERAPY @ [facility] 08/26/18 DR QUICK TX; TRAMADOL PRN- [...] Daily RT cholecalciferol (Vitamin D-3) 1.25 MG (78594 UT) capsule 1 capsule, Oral, Weekly ergocalciferol (Vitamin D2) 1.25 MG (55835 UT) capsule TAKE 1 CASPULE BY MOUTH [...] Use: Not At Risk (11/27/2022) Received from [employer] Frequency of Alcohol Consumption: Never Average [...] Angella Mckeon D.O. documented in this encounter [facility] 01-07-2024 History of Present illness Narrative Images from the original note were not included. Chief Complaint Patient presents with Left Knee - Pain HISTORY OF PRESENT ILLNESS: Rach Abrams is an 78 y.o. @ female. (EST PT) LT KNEE PAIN 2015. STATES A COUPLE WKS AGO, HER KNEE SWELLED AND GOT WARM. STATES SHE GOT REALLY SICK, DIARRHEA AND VOMITING. LAST TX 09/10/23 WITH REFERRAL TO PAIN FOR INJECTIONS XRAY TODAY CHANGE 01/07/24 XRAY [facility] 09/11/23 XRAY [facility] 06/27/23 XRAY (08/26/18) @ [facility] (01/18/17) PER DR MCKEON PREVIOUS XRAYS (10/17/16) (AP STANDING) @ [facility]. PHYSICAL THERAPY @ [facility] 08/26/18 DR [...] Daily RT cholecalciferol (Vitamin D-3) 1.25 MG (63572 UT) capsule 1 capsule, Oral, Weekly Cyanocobalamin ER 1000 MCG tablet controlled-release 2 tablets, Oral, Daily ergocalciferol (Vitamin D2) 1.25 MG (73157 UT) capsule TAKE 1 CASPULE BY MOUTH [...] left knee showed severe varus deformity with [id number] articulation to the medial joint line, flattening [...] develop for requiring urgent evaluation. Kathryn Cagle [employer] documented in this encounter [facility] 12-24-2023 History of Present illness Narrative IM PROGRESS NOTE Patient - Rach Abrams Age - 78 [facility]. - 1945 [facility] [id number] ASSESSMENT & PLAN 1. Diarrhea, unspecified type [...] Vitamin D deficiency -currently on vitamin D2 30019 units weekly -no change today 4. Cobalamin [...] Detected Not Detected^Not Detected Final Specific gravity [facility] 2023 1.015 1.003 - 1.035 Final Leukocyte esterase [facility] 2023 Trace (A) Negative^Negative Final Nitrite [facility] 2023 Negative Negative^Negative Final Ph 2023 5.5 5.0 - 8.5 Final Protein [facility] 2023 Negative Negative^Negative mg/dL Final Urine glucose [facility] 2023 Negative Negative^Negative mg/dL Final Ketones [facility] 2023 Trace (A) Negative^Negative mg/dL Final Urobilinogen [facility] 2023 0.2 <1.1 eu/dL Final Bilirubin [facility] 2023 Negative Negative^Negative Final Hemoglobin [facility] 2023 Small (A) Negative^Negative Final Other Testing No results found. Sangeetha Quick DO., [facility]: [phone] documented in this encounter [facility] [employer] [facility] 12-23-2023 Miscellaneous Notes ED Outreach This documentation is being used for Transition of Care purposes: Yes/No: Yes ED Outreach Date: December 23, 2023 ED Outreach Method: COMMUNICATION METHOD: Telephone ED Outreach Attempt: second ED Outreach Outcome: Contacted Patient Name of ED Facility: [facility] Date of ED Discharge: 2023 Discharge [...] with additional concerns. [facility] encounter Note ED Outreach This documentation is being used for Transition of Care purposes: Yes/No: Yes ED Outreach Date: December 23, 2023 ED Outreach Method: COMMUNICATION METHOD: Telephone ED Outreach Attempt: second ED Outreach Outcome: Contacted Patient Name of ED Facility: [facility] Date of ED Discharge: 2023 Discharge [...] will contact the office with additional concerns. [facility] 12-11-2023 Miscellaneous Notes Patient came in today and asked if her mammogram could be sent to [facility]. Also she was wondering if you would check into her in fusion at [facility]. Message noted. The mammogram order was sent to [facility] I put a new order for the Reclast infusion at [facility]. She can call about setting up the infusion Informed patient via answering machine. documented in this encounter [facility] 12-11-2023 Telephone encounter Note Patient came in today and asked if her mammogram could be sent to [facility]. Also she was wondering if you would check into her in fusion at [facility]. [facility] 12-11-2023 Telephone encounter Note Message noted. The mammogram order was sent to [facility] I put a new order for the Reclast infusion at [facility]. She can call about setting up the infusion [facility] 12-11-2023 Telephone encounter Note Informed patient via answering machine. [facility] 08-21-2023 Miscellaneous Notes Patient called and [...] time. Patient notified documented in this encounter [facility] 08-21-2023 Telephone encounter Note Patient called and the injection in her knee did not help. She wanted to know where to go from here. Does she need another apt? [facility] 08-21-2023 Telephone encounter Note Message noted. She needs to see orthopedics about a knee replacement. Whom does she wish to see? [facility] 08-21-2023 Telephone encounter Note LM for Patient to call back. [facility] 08-21-2023 Telephone encounter Note She would like to use Dr. Mckeon [facility] 08-21-2023 Telephone encounter Note Message noted. I made a referral to Dr. Mckeon. She can call his office and schedule at any time. [facility] 08-21-2023 Telephone encounter Note Patient notified [facility] 07-25-2023 History of Present illness Narrative Associated [...] stable IM PROGRESS NOTE Patient - Rach Abrams Age - 77 [facility] 1945 [id number] ASSESS[facility] & PLAN 1. Osteoarthritis of left [...] Testing No results found. Sangeetha Quick DO., [facility] Physicians Office: [phone] documented in this encounter [facility] 07-01-2023 History of Present illness Narrative IM PROGRESS NOTE Patient - Rach Abrams Age - 77 y.o. - 1945 ASSESSMENT [...] Testing No results found. Sangeetha Quick DO., [facility] Phys[facility] Office: [phone] documented in this encounter [facility] 06-25-2023 History of Present illness Narrative IM PROGRESS NOTE Patient - Rach Abrams Age - 77 y.o. - 1945 ASSESSMENT [...] Testing No results found. Sangeetha Quick DO., [facility] Phys[facility] Office: [phone] documented in this encounter [facility] 05-30-2023 History of Present illness Narrative IM PROGRESS NOTE Patient - Rach Abrams Age - 77 y.o. - 1945 ASSESSMENT [...] Final Other Testing No results found. Sangeetha Quikc DO., [facility] Phys[facility] Office: [phone] documented in this encounter [facility] 07-19-2022 Note CONSULTATION CONSULTATION DATE: 07/19/2022 [...] our patients to inform us about any uvpu-cwe-ohzxemk medications or herbal remedies/nutritional supplements/alternative remedies. 2. [...] options with their primary care provider. [facility] 04-26-2022 Note CONSULTATION CONSULTATION DATE: [...] three months' time unless otherwise indicated. [facility] 03-27-2022 Note CONSULTATION CONSULTATION DATE: [...] to proceed. CC: Sangeetha Quick D.O. [facility] 02-08-2022 Note CONSULTATION CONSULTATION DATE: [...] The patient agrees with this plan. [facility] 01-11-2022 Note CONSULTATION CONSULTATION DATE: [...] Patient would like to move forward. [facility] 12-14-2021 Note CONSULTATION PROCEDURE DATE: [...] be followed up in the office. [facility] 12-14-2021 Note CONSULTATION CONSULTATION DATE: [...] well, which she does consent to. [facility] 09-07-2021 Note CONSULTATION CONSULTATION DATE: [...] injections. Activities that aggravate her pain are rn child hours, housework and lifting. She uses heat [...] time, unless otherwise indicated. [facility] Signed and Approved by: MARIELY YUAN . 09/14/2021 16:04:00 [facility] Evaluation note Diagnosis Primary osteoarthritis of left knee- Primary documented [facility] encounter [facility] Diagnosis Primary localized osteoarthritis of left knee- Primary Left knee pain, unspecified chronicity documented in this encounter [facility]* Diagnosis Hypothyroidism, unspecified type- Primary Right foot pain Pain in soft tissues of limb Vitamin D deficiency Cobalamin deficiency Other B-complex deficiencies Lichen planus atrophicus Lichen planus [facility] Diagnosis Hypothyroidism, unspecified type- Primary Cobalamin deficiency Other B-complex deficiencies Hyperlipidemia, unspecified hyperlipidemia type Osteoarthritis of left shoulder, unspecified osteoarthritis type [facility]* Diagnosis Localized osteoarthritis of left knee- Primary [facility]* Diagnosis Primary osteoarthritis of knees, bilateral- Primary Osteoarthritis of left shoulder, unspecified osteoarthritis type Immunization due documented [facility]* Diagnosis Osteoarthritis of left shoulder, unspecified osteoarthritis type- Primary [facility]* Diagnosis Hordeolum externum of right upper eyelid- Primary Blepharitis of right upper eyelid, unspecified type Age-related osteoporosis without current pathological fracture Encounter for immunization documented in [facility]* Diagnosis Diarrhea, unspecified type- Primary Primary osteoarthritis of knees, bilateral Vitamin D deficiency Cobalamin deficiency Other B-complex deficiencies Age-related osteoporosis without current pathological fracture Nausea and vomiting, unspecified vomiting type documented in this [facility]* Diagnosis Age-related osteoporosis without current pathological fracture- Primary documented [facility]* Diagnosis Hypothyroidism Unspecified hypothyroidism Deficiency of other specified B group vitamins Vitamin D deficiency, unspecified Hordeolum externum of right upper eyelid documented in [facility] encounter [facility]* Diagnosis Encounter for subsequent annual wellness visit (AWV) in Medicare patient- Primary documented in this encounter [facility]* Diagnosis Hyperlipidemia, unspecified documented in this encounter [facility]* Diagnosis Hyperlipidemia, unspecified hyperlipidemia type- Primary Hypothyroidism, unspecified type Elevated blood pressure reading Elevated blood pressure reading without diagnosis of hypertension Cobalamin deficiency Other B-complex deficiencies documented [facility]* Diagnosis Hypothyroidism Unspecified hypothyroidism documented in [facility]* Diagnosis Acute pain of right shoulder- Primary Nontraumatic complete tear of right rotator cuff documented in this encounter [facility] HealthcareEvaluation note* Diagnosis Acute pain of right shoulder- Primary Rotator cuff arthropathy, right documented in this encounter [facility]* Diagnosis Gastroenteritis due to norovirus- Primary Degenerative lumbar spinal stenosis Spinal stenosis of lumbar region Hiatal hernia Diaphragmatic hernia without mention of obstruction or gangrene Lichen planus atrophicus Lichen planus documented [facility]* Diagnosis Cobalamin deficiency Other B-complex deficiencies documented in this encounter [facility]Evaluation [facility]* Diagnosis Hyperlipidemia, unspecified documented in [facility] SystemInstructionsNot on filedocumented in this encounter [facility] SystemInstructionsNot on filedocumented in this encounter [facility] SystemInstructionsNot on filedocumented in this encounter [facility] System[facility]ructions* Attachments The following attachments cannot be sent through Care Everywhere. * Osteoarthritis Discharge Instructions (Mauritian) [facility] SystemInstructionsNot on file documented [facility] SystemInstructionsNot on file documented in this [facility] SystemInstructionsNot on file documented in this [facility] SystemInstructionsNot on file documented in [facility] SystemInstructionsNot on file documented in this [facility] SystemInstructionsNot on file documented in this [facility] SystemInstructionsNot on file documented in this encounterPro[facility] Health SystemInstructionsNot on file documented in this [facility] Health SystemInstructionsNot on file documented in this encounterPro[facility] Health SystemInstructionsNot on file documented [facility] this [facility] Summary Purpose Family History [...] CREATED AUTHOR AUTHOR'S ORGANIZ ATION 08/29/2022 [facility] DATE CREATED AUTHOR AUTHOR'S ORGANIZ ATION 08/21/2024 [facility] DATE CREATED AUTHOR AUTHOR'S ORGANIZ ATION 10/25/2024 [facility] dical Specialists [facility] DATE CREATED AUTHOR AUTHOR'S ORGANIZ ATION 11/04/2024 [facility] DATE CREATED AUTHOR AUTHOR'S ORGANIZ ATION 11/07/2024 [facility] DATE CREATED AUTHOR AUTHOR'S ORGANIZ ATION 12/12/2024 [facility] Care Teams (unrecognized sec tion and content) Sign Painter Relationship Specialty Start Date End Date Sangeetha Quick MD [address] [place] [address] PCP - General Internal Medicine 09/10/23 Sign Painter Relationship Specialty Start Date End Date Sangeetha Quick MD [address] [place] [address] PCP - General Internal Medicine 09/10/23 Sign Painter Relationship Specialty Start Date End Date Sangeetha Quick MD [address] [place] [address] PCP - General Internal Medicine 09/10/23 Sign Painter Relationship Specialty Start Date End Date Sangeetha Quick DO [address] [place] [address] PCP - General 11/09/13 Sign Painter Relationship Specialty Start Date End Date Sangeetha Quick DO [address] [place] [address] PCP - General 11/09/13 Sign Painter Relationship Specialty Start Date End Date Sangeetha Quick DO [address] [place] [address] PCP - General 11/09/13 Sign Painter Relationship Specialty Start Date End Date Sangeetha Quick DO [address] [place] [address] PCP - General 11/09/13 Sign Painter Relationship Specialty Start Date End Date Sangeetha Quick DO [address] [place] [address] PCP - General 11/09/13 Sign Painter Relationship Specialty Start Date End Date Sangeetha Quick DO [address] [place] [address] PCP - General 11/09/13 Sign Painter Relationship Specialty Start Date End Date Sangeetha Quick DO [address] [place] [address] PCP - General 11/09/13 Sign Painter Relationship Specialty Start Date End Date Sangeetha Quick DO [address] [place] [address] PCP - General 11/09/13 Sign Painter Relationship Specialty Start Date End Date Sangeetha Quick DO [address] [place] [address] PCP - General 11/09/13 Sign Painter Relationship Specialty Start Date End Date TrentSangeethaDO [address] [place] [address] PCP - General 11/09/13 Sign Painter Relationship Specialty Start Date End Date Trent Sangeetha DO Alek [address] [place] [address] PCP - General 11/09/13 Sign Painter Relationship Specialty Start Date End Date Sangeetha Quick DO [address] [place] [address] PCP - General 11/09/13 Sign Painter Relationship Specialty Start Date End Date Sangeetha Quick DO [address] [place] [address] PCP - General 11/09/13 Sign Painter Relationship Specialty Start Date End Date Sangeetha Quick MD PCP - General Internal Medicine 09/10/23 Sign Painter Relationship Specialty Start Date End Date Sangeetha Quick MD PCP - General Internal Medicine 09/10/23 Sign Painter Relationship Specialty Start Date End Date Sangeetha Quick MD PCP - General Internal Medicine 09/10/23 Sign Painter Relationship Specialty Start Date End Date Sangeetha [...] Age-related osteoporosis without current pathological fracture Procedures MO ZOLEDRONIC ACID 1MG MO INJECTION,THERAP/PROPH/DIAG NOST, IV PUSH, INITIAL DRUG Sangeetha Quick, [address] [place] [address] Phone: tel: fax: Alicia Gaston [facility] - Medical Oncology [address] [place] [id number] Phone: tel: fax: Referral ID Status Reason Start Date Expiration Date V isits Requested Visits Authorized [id number] Authorized 12/31/2022 01/29/2025 1 1 Reason Comments [...] BE BASED ON THE PRIMARY CLINICAL RECORDS. [employer] provides no warranty or guarantee of the accuracy or completeness of information in this document.
--- NOTE | 2024-12-17 09:54 | P.CN_ITS ---
Consult Note: HPI Data of Consult Patient: known to practice within the last 3 years Consult date: 12/17/24 Requesting Physician: Rosina Fleming NP Primary Care Provider: SANGEETHA QUICK Consult Narrative Reason for consult: low back and BLE pain Narrative: Rach Abrams a pleasant 78 year old female presents for evaluation of severe low back and BLE pain. patient rating pain 8/10 sharp constant pain increased with twisting, pushing, pulling, standing, walking, lifting, stairs, bending, activity. pain improved with sitting and heat. recently underwent left SIJ injection with >50% improvement ongoing in SIJ pain. cc:: CC: Rosina Fleming NP Review of Systems ROS Musculoskeletal Reports: back pain and extremity pain Meds Home Medications and Allergies Home Medications ?Medication ?Instructions ?Recorded ?Confirmed ?Type acetaminophen 325 mg tablet (Aphen) 650 mg PO Q6H PRN pain 10/10/22 12/07/24 History levothyroxine 50 mcg capsule 50 mcg PO DAILY 10/11/22 12/07/24 History rosuvastatin 10 mg tablet 10 mg PO DAILY 10/11/22/09/06 History tizanidine 2 mg tablet 2 mg PO BID PRN spasm 12/07/24 History tramadol 50 mg tablet 50 mg PO BID 10/11/22 History zoledronic acid 5 mg/100 mL in ea IV .1 YEAR 01/10/23 History mannitol 5 %-water intravenous piggybck (Reclast) cholecalciferol (vitamin D3) 1,250 50,000 unit PO QWEE K 09/11/23 12/07/24 History mcg (50,000 unit) capsule estradiol 0.01% (0.1 mg/gram) 0.25 appful vaginal SANTIAGO Y PRN 09/11/23 12/07/24 History vaginal cream itching tizanidine 4 mg capsule See Rx Instructions .Route 0 07/02/24 12/07/24 Rx .COMPLEX PRN muscle spasticity #90 caps Allergies Allergy/AdvReac Type Severity Reaction Status Date / Time aspirin Allergy Hives Verified 12/07/24 10:23 codeine Allergy Hives Verified 12/07/24 10:23 iodine Allergy Blister Verified 12/07/24 10:23 latex Allergy Blister Verified 12/07/24 10:23 pregabalin (From Lyrica) Allergy Abdominal Verified 12/07/24 10:23 Pain Sulfa (Sulfonamide Allergy Abdominal Verified 12/07/24 10:23 Antibiotics) Pain Exam Constitutional Documenting provider has reviewed patient's vital signs: yes Common normals: no apparent distress, oriented x3, healthy appearing, alert and well nourished General appearance: cooperative HENMT Common normals: normocephalic, hearing grossly normal bilaterally and moist oral mucous membranes Head and scalp: normocephalic Eye Common normals: PERRL Pupil: PERRL Neck & C-Spine Common normals: full ROM General: normal visual inspection Chest Common normals: inspection of chest normal Respiratory Common normals: normal respiratory effort, no retractions and no use of accessory muscles Back & Pelvis Lumbar spine/lower back: ROM limited, pain with ROM, lumbar spinal tenderness, straight leg raise positive right and straight leg raise positive left Other: decreased sensation bilateral L4,5,S1 strength 4/5 in BLE Neuro Common normals: oriented x3 Sensorium/orientation: alert Psych Common normals: mental status grossly normal, thought process normal, cooperative, affect normal, speech normal and activity/motor behavior normal Speech: normal speech Thought process: normal thought process Results Additional Findings Additional findings: If on a controlled substance or opioids, I have checked an OAR[place] report on this patient and there are no aberrancies noted in the prescribing history.??If on a controlled substance or opioid a drug screen was completed and reviewed within the last year, and if there has not been a drug screen completed we ordered one today to monitor higher risk, state monitored pain medication use. As part of providing excellent, safe, comprehensive care, the following was completed at our patient's visit: 1. A medication reconciliation and review to ensure accurate knowledge of current/active medications, including asking our patients to inform us about any jojy-cna-gndeyfc medications or herbal remedies/nutritional supplements/alternative remedies. 2. A review to specifically ensure our patients have had annual screening for screening for depression, screening for tobacco use, and screening for unhealthy alcohol use. For concerning screenings had a discussion with the patient, provided patient education, and recommended follow-up with primary care provider when appropriate. If patient noted with a risk of falling, they received education on strength, gait, and balance training to prevent future risk of falling. Portions of this note may have been carried over from the previous visit and updated as appropriate. Please note this office utilizes paper charting in addition to the electronic medical record. A list of current medications, vitals, and PMH is available there as the clinical staff outside of myself do not have access to Remote Assistant charting during the clinic day operations. As part of providing quality comprehensive care the current medications, vitals, and PMH were reviewed in the paper chart. Assessment and Plan Assessment and Plan (1) Lumbar stenosis with neurogenic claudication: (2) Sacroiliitis: (3) DDD (degenerative disc disease), lumbar: (4) Chronic prescription opiate use: Assessment and Plan: I feel these medications are improving the patient's quality of life and allow them to tolerate activities of daily living as well as participate in recreational activity.? The patient does not report intolerable side effects. The patient is NOT opioid naive and non-pharmacologic and non-opioid treatment has failed to significantly relieve the patient's pain and improve functionality. The patient has a diagnosis that is related to a somatic or visceral pain etiology. ? ?? I reviewed with the patient the potential risks and side effects with the use of? opioid medications including but not limited to respiratory depression,? sedation, and even . Within the last 12 months I have verified the patient has access to naloxone should? these effects occur. The patient was advised to let? their family know they had Naloxone in case they would need to administer? the medication. I advised the patient to avoid the use of any other? sedation substances including alcohol, THC, and benzodiazepines while? taking opioid medications due to the risk of compounding side effects and? detrimental outcomes. within the last 12 months I have reviewed the OPERATIONS INTELLIGENCE SUPERINTENDENT, pain treatment agreement and urine drug screen.? ?? A drug screen was completed within the last year, and no aberrancies were noted regarding their use of controlled substances. The patient understands they are subject to the terms and conditions of the pain contract that they have signed. ? ?? I have checked an OARRS report on this patient today and there are no aberrancies noted in the prescribing history.? (5) Lumbar spondylosis: Plan The patient has had over 3 months of moderate to severe low back and BLE pain with functional impairment and inadequate response to conservative care including NSAIDS (unless there are contraindication such as concurrent blood thinners), multiple oral or topical pain medications, and home exercise program/physical therapy.? Patient has completed >6 weeks of guided home exercise program and/or formal physical therapy program without relief of their symptoms.? The Oswestry Disability Index was completed, and the patient scored a 32%.? bilateral L4-5 TFESI under fluoroscopy for lumbar stenosis with NC start gabapentin 100mg TID for lumbar stenosis with NC, risks vs benefits reviewed continue tizanidine 4mg bid prn pain/spasms, ropinirole 0.25mg hs, decrease tramadol 50mg TID PRN moderate to severe pain continue HEP as tolerated f/u 2 weeks after injection
== END 2024-12-17 09:22 | disposition home or self-care (01) ==
LOC: PM 09:22
PROVIDERS: PCP Internal Medicine; Visit Provider Nurse Practitioner
DX: M48.062 Spinal stenosis, lumbar region with neurogenic claudication (principal); M46.1 Sacroiliitis, not elsewhere classified; M51.369 Other intervertebral disc degeneration, lumbar region without mention of lumbar back pain or lower extremity pain; Z79.891 Long term (current) use of opiate analgesic; M47.816 Spondylosis without myelopathy or radiculopathy, lumbar region
CPT/HCPCS: G0463

== ENCOUNTER 2024-12-28 07:05 | Day surgery (SDC) | payer MEDICARE, SELFPAY ==
--- OUTSIDE RECORDS SUMMARY | 2024-12-28 07:08 | XMS_ITS | Encounter Summary ---
Author Organization [facility] tem Address [id number] [address] [place] [address] Care Team Providers Care Merchandising Execution Associate Name Role Phone Rusty Newman DO Primary Care Provider [phone] Encounter Details Date Type Department Care Team ([facility] Contact Info) Description 05/28/2022 Orders Only [facility] Internal Medicine - Family Medicine [address] [place] [address] Rusty Newman DO [address] [place] [address] Nontraumatic complete tear of right rotator cuff [...] Upcoming Encounters Date Type Department Care Team ([facility] st Contact Info) Description 03/02/2025 2:20 PM EST Office Visit [facility] Internal Medicine - Family Medicine [address] [place] [address] documented as of this encounter Visit Diagnoses [...] documented as of this encounter Care Teams Merchandising Execution Associate Relationship Specialty Start Date End Date Rusty Newman DO [address] [place] [address] PCP - General 11/09/13 documented as of this encounter
--- OUTSIDE RECORDS SUMMARY | 2024-12-28 07:08 | XMS_ITS | Encounter Summary ---
Author Organization [facility] [place] [employer] [facility] tem Address [id number] [address] [place] [address] Care Team Providers Care Wool Hat Sanding Machine Operator Name Role Phone Rusty Newman DO Primary Care Provider [phone] Encounter Details Date Type Department Care Team (Late st Contact Info) Description 05/20/2024 Orders Only [facility] Internal Medicine - Family Medicine [address] [place] [address] Rusty Newman DO [address] [place] [address] Cobalamin deficiency (Primary Dx) Social History Tobacco Use Types Packs/Day Years Used Date Smoking Tobacco: Never Smokeless Tobacco: Never Alcohol Use Standard Drinks/Week Comments No 0 (1 standard drink = 0.6 oz pur e alcohol) [facility] Utilities Answer Date Recorded In the past 12 months has [employer], gas, oil, or water [employer] threatened to shut off services in your [...] How often do you attend chur or latter day services? More than 4 times per year 11/27/2022 Do you belong to any clubs o r organizations such as sabianist groups, unions, fraternal or athletic groups, or [...] Answer Date Recorded Total Score 0 05/19/2024 [facility] of Occupat ional Health - Occupational [...] Recorded Do you need help finding a [facility] career center and/or a training program? [...] - Family Medicine [address] [place] [address] documented as of this encounter Visit Diagnoses [...] documented as of this encounter Care Teams Wool Hat Sanding Machine Operator Relationship Specialty Start Date End Date Rusty Newman DO [address] [place] [address] PCP - General 11/09/13 documented as of this encounter
--- OUTSIDE RECORDS SUMMARY | 2024-12-28 07:08 | XMS_ITS | Encounter Summary ---
Author Organization [facility] tem Address [id number] [address] [place] [address] Care Team Providers Care Special Education Assistant Name Role Phone Rusty Newman DO Primary Care Provider [phone] Encounter Details Date Type Department Care Team (Late st Contact Info) Description 11/26/2022 Orders Only [facility] Internal Medicine - Family Medicine [address] [place] [address] Rusty Newman DO [address] [place] [address] Encounter for screening mammogram for malignant neoplasm [...] any clubs o r organizations such as yazidi groups, unions, fraternal or athletic groups, or [...] Answer Date Recorded Total Score 2 11/27/2022 [facility] of Occupat ional Health - [...] Medicine - Family Medicine [address] [place] [address] Scheduled Orders Name Type Priority Associated Diagnoses [...] documented as of this encounter Care Teams Special Education Assistant Relationship Specialty Start Date End Date Rusty Newman DO [address] [place] [address] PCP - General 11/09/13 documented as of this encounter
--- OUTSIDE RECORDS SUMMARY | 2024-12-28 07:08 | XMS_ITS | Encounter Summary ---
Author Organization [facility] [employer] [facility] tem Address [id number] [address] [place] [address] Care Team Providers Care Crime Scene Examiner Name Role Phone Rusty Newman DO Primary Care Provider [phone] Encounter Details Date Type Department Care Team (Late st Contact Info) Description 01/01/2023 Orders Only [facility] Internal Medicine - Family Medicine [address] [place] [address] Rusty Newman DO [address] [place] [address] Social History Tobacco Use Types Packs/Day Years [...] Answer Date Recorded Total Score 0 12/31/2022 [facility] of Occupat ional Health - Occupational Stress [...] - Family Medicine [address] [place] [address] documented as of this encounter Visit Diagnoses [...] documented as of this encounter Care Teams Crime Scene Examiner Relationship Specialty Start Date End Date Rusty Newman DO [address] [facility] [address] PCP - General 11/09/13 documented as of this encounter
--- OUTSIDE RECORDS SUMMARY | 2024-12-28 07:08 | XMS_ITS | Encounter Summary ---
Author Organization [facility] [employer] [facility] tem Address [id number] [address] [place] [address] Care Team Providers Care Director Of User Experience Name Role Phone Rusty Newman DO Primary Care Provider Encounter Details Date Type Department Care Team (Late st Contact Info) Description 11/10/2024 Orders Only [facility] Internal Medicine - Family Medicine [address] [place] [address] Rusty Newman DO [address] [place] [address] Degenerative lumbar spinal stenosis (Primary Dx) Social History Tobacco Use Types Packs/Day Years Used Date Smoking Tobacco: Never Smokeless Tobacco: Never Alcohol Use Standard Drinks/Week Comments No 0 (1 standard drink = 0.6 oz pur e alcohol) [facility] Utilities Answer Date Recorded In the past 12 months has [employer], gas, oil, or water company threatened to [...] How often do you attend chur or taoism services? More than 4 times per year [...] Answer Date Recorded Total Score 0 11/02/2024 [facility] - Occupational Stress Questionnaire Answer Date [...] Recorded Do you need help finding a [facility] career center and/or a training [...] Internal Medicine - Family Medicine [address] [place] [address] documented as of this encounter Visit Diagnoses Diagnosis Degenerative lumbar spinal stenosis- Primary Spinal stenosis of lumbar region documented in this encounter Additional Health Concerns Assessment Noted Time PHQ-9 Depression Total Score: 0 11/03/19 25 4:14 PM EDT documented as of this encounter Care Teams Director Of User Experience Relationship Specialty Start Date End Date Rusty Newman DO [address] [place] [address] PCP - General 11/09/13 documented as of this encounter
--- OUTSIDE RECORDS SUMMARY | 2024-12-28 07:08 | XMS_ITS | Encounter Summary ---
Author Organization [facility] Address [address] [place] [address] Care Team Providers Care Product Lister Name Role Phone Rusty Newman MD Primary Care Provider [phone] Encounter Details Date Type Department Care Team (Late st Contact Info) Description 08/14/2024 Orders Only [facility] [address] [place] [address] Rosina Fleming NP [address] [place] [address] Social History Tobacco Use Types Packs/Day Years [...] Region Laterality Modality Radiographic Ewelina ging Rosina Flemign NP IMG XR PROCEDURES Final Result documented in this encounter Visit Diagnoses Not on filedocumented in this encounter Care Teams Product Lister Relationship Specialty Start Date End Date Rusty Newman MD PCP - General Internal Medicine 09/10/23 documented as of this encounter
--- OUTSIDE RECORDS SUMMARY | 2024-12-28 07:08 | XMS_ITS | Encounter Summary ---
Author Organization [employer] [facility] tem Address [facility]-[id number] [address] [place] [address] Care Team Providers Care Mortgage Advisor Name Role Phone Rusty Newman DO Primary Care Provider [phone] Encounter Details Date Type Department Care Team (Late st Contact Info) Description 05/01/2022 Telephone [facility] Internal Medicine - Family Medicine [address] [place] [address] Salena Gandhi CMA Social History Tobacco Use [...] and can not take her MRI at [facility] because it is not an open scan. She said she would like it sent to [facility] because she has been there before and she was fine with theirs. documented in this encounter Plan of Treatment Upcoming Encounters Date Type Department Care Team (Late st Contact Info) Description 03/02/2025 2:20 PM EST Office Visit [facility] Medicine - Family Medicine [address] [place] [address] documented as of this encounter Visit Diagnoses [...] documented as of this encounter Care Teams Mortgage Advisor Relationship Specialty Start Date End Date Rusty Newman DO [address] [facility] [place] [address] PCP - General 11/09/13 documented as of this encounter
--- OUTSIDE RECORDS SUMMARY | 2024-12-28 07:08 | XMS_ITS | Encounter Summary ---
Author Organization [facility] [employer] tem Address [id number] [address] [place] [address] Care Team Providers Care Compensation Consultant Name Role Phone Rusty Newman DO Primary Care Provider [phone] Reason for Visit * Reason Comments Med Change Request Encounter Details Date Type Department Care Team (Late Contact Info) Description 05/02/2022 Refill [facility] Internal Medicine - Family Medicine [address] [place] [address] Rusty Newman DO [address] [place] [address] Cervical radiculopathy due to trauma Social History [...] Medicine - Family Medicine [address] [place] [address] documented as of this encounter Visit Diagnoses [...] documented as of this encounter Care Teams Compensation Consultant Relationship Specialty Start Date End Date Rusty Newman DO [address] [place] [address] PCP - General 11/09/13 documented as of this encounter
--- OUTSIDE RECORDS SUMMARY | 2024-12-28 07:08 | XMS_ITS | Encounter Summary ---
Author Organization [employer] [facility] tem Address [facility]-[id number] [address] [place] [address] Care Team Providers Care Chain Repairer Name Role Phone Rusty Newman DO Primary Care Provider [phone] Encounter Details Date Type Department Care Team ([facility] Contact Info) Description 05/25/2022 Orders Only [facility] Internal Medicine - Family Medicine [address] [place] [address] Salena Gandhi CMA Rotator cuff [...] Upcoming Encounters Date Type Department Care Team ([facility] Contact Info) Description 03/02/2025 2:20 PM EST [facility] [address] [place] [address] documented as of this encounter [...] documented as of this encounter Care Teams Chain Repairer Relationship Specialty Start Date End Date Rusty Newman DO [address] [place] [address] PCP - General 11/09/13 documented as of this encounter
--- OUTSIDE RECORDS SUMMARY | 2024-12-28 07:08 | XMS_ITS | Encounter Summary ---
Author Organization [facility] tem Address [facility]-[id number] [address] [place] [address] Care Team Providers Care Electric Motor Assembler And Tester Name Role Phone Rusty Newman DO Primary Care Provider [phone] Encounter Details Date Type Department Care Team (Late st Contact Info) Description 10/26/2024 Results Follow-Up [facility] - Emergency [address] [place] [address] Libia Flores, RN GI Panel(stool pathogen panel) Social History Tobacco Use Types Packs/Day Years Used Date Smoking Tobacco: Never Smokeless Tobacco: Never Alcohol Use Standard Drinks/Week Comments No 0 (1 standard drink = 0.6 oz pur e alcohol) [facility] Utilities Answer Date Recorded In the past [...] often do you attend chur ch or anglican services? More than 4 times per year 11/27/2022 Do you belong to any clubs o r organizations such as religion groups, unions, fraternal or athletic groups, or [...] Answer Date Recorded Total Score 0 11/02/2024 [facility] of Occupat ional [facility] - Occupational Stress Questionnaire Answer Date Recorded [...] Do you need help finding a [facility] career center and/or a training program? No [...] Internal Medicine - Family Medicine [address] [place] [address] documented as of this encounter Visit Diagnoses Not on filedocumented in this encounter Additional Health Concerns Infection Onset Date Last Indicated Resolved Time Norovirus 10/23/2024 10/23/2024 10/27/2024 8:08 PM EDT Assessment Noted Time PHQ-9 Depression Total Score: 0 08/19/19 25 3:10 PM EDT documented as of this encounter Care Teams Electric Motor Assembler And Tester Relationship Specialty Start Date End Date Rusty Newman DO [address] [place] [address] PCP - General 11/09/13 documented as of this encounter
--- OUTSIDE RECORDS SUMMARY | 2024-12-28 07:08 | XMS_ITS | Encounter Summary ---
Author Organization [facility] tem Address [id number] [address] [place] [address] Care Team Providers Care High School Physical Education Teacher Name Role Phone Rusty Newman DO Primary Care Provider [phone] Encounter Details Date Type Department Care Team (Late st Contact Info) Description 11/06/2024 Results Follow-Up [facility] Internal Medicine - Family Medicine [address] [place] [address] Rusty Newman DO [address] [place] [address] X-ray spine lumbar 2 or 3 views Social History Tobacco Use Types Packs/Day Years Used Date Smoking Tobacco: Never Smokeless Tobacco: Never Alcohol Use Standard Drinks/Week Comments No 0 (1 standard drink = 0.6 oz pur e alcohol) [facility] Utilities Answer Date Recorded In the past 12 months has [employer], gas, oil, or water [employer] threatened to shut off services in your [...] Answer Date Recorded Total Score 0 11/02/2024 [facility] - Occupational Stress Questionnaire Answer Date [...] Recorded Do you need help finding a [facility] career [facility] and/or a training [...] Internal Medicine - Family Medicine [address] [place] [address] documented as of this encounter Visit Diagnoses Not on filedocumented in this encounter Additional Health Concerns Assessment Noted Time PHQ-9 Depression Total Score: 0 11/03/19 25 4:14 PM EDT documented as of this encounter Care Teams High School Physical Education Teacher Relationship Specialty Start Date End Date Rusty Newman DO [address] [place] [address] PCP - General 11/09/13 documented as of this encounter
--- OUTSIDE RECORDS SUMMARY | 2024-12-28 07:08 | XMS_ITS | Encounter Summary ---
Author Organization [facility] [employer] [facility] tem Address [id number] [address] [place] [address] Care Team Providers Care Hospitality Manager Name Role Phone Rusty Newman DO Primary Care Provider [phone] Reason for Visit * Reason Comments Med Refill Encounter Details Date Type Department Care Team (Late st Contact Info) Description 05/23/2022 Refill [facility] Internal Medicine - Family Medicine [address] [place] [address] Rusty Newman DO [address] [place] [address] Left cervical radiculopathy Social History Tobacco Use [...] Internal Medicine - Family Medicine [address] [place] [address] documented as of this encounter Visit Diagnoses [...] documented as of this encounter Care Teams Hospitality Manager Relationship Specialty Start Date End Date Rusty Newman DO [address] [place] [address] PCP - General 11/09/13 documented as of this encounter
--- OUTSIDE RECORDS SUMMARY | 2024-12-28 07:08 | XMS_ITS | Clinical Summary ---
Author Organization [employer] tem Address [id number] [address] [place] [address] Care Team Providers Care Water Taxi Operator Name Role Phone Rusty Newman Primary Care Provider [phone] Allergies Active Allergy Reactions Criticality Noted Date [...] DAY 90 tablet 1 12/09/19 25 Active rosuvastatin (CRESTOR) 10 mg tabletIndications: Hyperlipidemia, unspecified TAKE 1 TABLET BY MOUTH EVERY DAY 90 tablet 1 06/09/19 25 025 Discontinued Active Problems Problem Noted Date Diagnosed Date [...] Medicine - Family Medicine [address] [place] [address] Rusty Newman DO Hyperlipidemia, unspecified 11/18/2024 Refill [facility] Internal Medicine - Family Medicine [address] [place] [address] Rusty Newman, DO Cobalamin deficiency 11/10/2024 Orders Only [facility] Internal Medicine - Family Medicine [address] [place] [address] Rusty Newman, Degenerative lumbar spinal stenosis (Primary Dx) 11/06/2024 Results Follow-Up [facility] Internal Medicine - Family Medicine [address] [place] [address] Rusty Newman, DO X-ray spine lumbar 2 or 3 views 11/05/2024 Telephone [facility] Internal Medicine - Family Medicine [address] [place] [address] Salena Gandhi CMA 11/03/2024 12:45 PM EDT - 11/03/2024 11:59 PM EDT Hospital Encounter [facility] - Radiology [address] [place] [address] Rusty Newman, Degenerative lumbar spinal stenosis Discharge Disposition: Home 11/02/2024 4:15 PM EDT Office Visit [facility] Internal Medicine - Family Medicine [address] [place] [address] Rusty Newman, Gastroenteritis due to norovirus (Primary Dx); Degenerative lumbar spinal stenosis; Hiatal hernia; 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 Travel 10/26/2024 Results Follow-Up [facility] - Emergency [address] [place] [address] Libia Flores RN GI Panel(stool pathogen panel) 10/26/2024 Telephone [facility] Internal Medicine - Family Medicine [address] [place] [address] Marcia Holder [facility] Er Follow-up 10/23/2024 8:18 AM EDT - 10/23/2024 12:43 PM EDT Emergency [facility] - Emergency [address] [place] [address] Kasie Mosley MD Nausea vomiting and diarrhea [...] Brother 2 Narayan Lung cancer Brother 2 aNrayan Prostate cancer Brother 2 Narayan Kidney disease [...] drink = 0.6 oz pur e alcohol) [facility] [employer] Answer Date Recorded In the past 12 months has [employer], gas, oil, or water [employer] threatened to shut off services in your [...] How often do you attend chur or pentecostal services? More than 4 times per year 11/27/2022 Do you belong to any clubs o r organizations such as voodoo groups, unions, fraternal or athletic groups, or [...] Answer Date Recorded Total Score 0 11/02/2024 [facility] of Occupat ional Health - Occupational Stress [...] Recorded Do you need help finding a [facility] career center and/or a training [...] Internal Medicine - Family Medicine [address] [place] [address] Health Maintenance Due Date Last Done Comments Zoster (Shingles) Vaccine (1 of 2) 12/20/1997 DTaP,Tdap and Td Vaccines (2 - Td or Tdap) 05/21/2024 05/21/2014 COVID-19 Vaccine (5 - 2023-2 5 season) 2024 01/20/2024, 01/12/2021, 07/14/2020, Additional [...] (10/23/2024 9:59 AM EDT) POC Urine Specific [place] 1.020 1.010, 1.015, 1.020, 1.025 10/23/2024 9:52 AM EDT [facility] POC Urine Leukocyte Esterase Negative Negative 10/23/2024 9:52 AM EDT [facility] POC Urine Nitrite Positive(A) Negative 10/23/2024 9:52 AM EDT [facility] POC Urine pH 7.0 5.0, 6.0, 6.5, 7.0, 7.5, 8.0, 8.5, 5.5 10/23/2024 9:52 AM EDT [facility] POC Urine Protein Trace(A) Negative 10/23/2024 9:52 AM EDT [facility] POC Urine Glucose Negative Negative 10/23/2024 9:52 AM EDT [facility] POC Urine Ketones 15 mg/dL(A) Negative 10/23/2024 9:52 AM EDT [facility] POC Urine Urobilinogen 0.2 E.U./dL 10/23/2024 9:52 AM EDT [facility] POC Urine Bilirubin Negative Negative 10/23/2024 9:52 AM EDT [facility] POC Urine Blood/HGB Trace(A) Negative 10/23/2024 9:52 AM EDT [facility] Urine 10/23/2024 9:59 AM EDT 10/23/2024 9:52 AM EDT Kasie Mosley MD POINT OF CARE TEST ORDERABLES Final Result Performing Organization Address City/[facility]/ZIP Co de Phone Number [address] [place] [address], [place] * Extra Urine Culture (10/23/2024 9:48 AM EDT) [facility] Extra Tube Auto Resulted 10/23/2024 12:02 PM EDT [facility] Urine Urine specimen collection, clean catch / Unknown 10/23/2024 9:48 AM EDT 10/23/2024 11:03 AM EDT Kasie Mosley MD URINE ORDERABLES Final Result Performing Organization Address City/[facility] Co de Phone Number [address] [place] [address], [place] * (ABNORMAL) GI Panel(stool pathogen panel) (10/23/2024 9:48 AM EDT) CAMPYLOBACTER Not Detected Not Detected 10/23/2024 3:11 PM EDT [facility] PLESIOMONAS Not Detected Not Detected 10/23/2024 3:11 PM EDT [facility] SALMONELLA Not Detected Not Detected 10/23/2024 3:11 PM EDT [facility] VIBRIO Not Detected Not Detected 10/23/2024 3:11 PM EDT [facility] VIBRIO CHOLERAE Not Detected Not Detected 10/23/2024 3:11 PM EDT [facility] Y. ENTEROCOLITICA Not Detected Not Detected 10/23/2024 3:11 PM EDT [facility] AGGREGATIVE E COLI Not Detected Not Detected 10/23/2024 3:11 PM EDT [facility] PATHOGENIC E COLI Not Detected Not Detected 10/23/2024 3:11 PM EDT [facility] TOXIGENIC E COLI Not Detected Not Detected 10/23/2024 3:11 PM EDT [facility] SHIGA TOXIN E COLI Not Detected Not Detected 10/23/2024 3:11 PM EDT [facility] SHIGELLA-E COLI Not Detected Not Detected 10/23/2024 3:11 PM EDT [facility] CRYPTOSPORIDIUM Not Detected Not Detected 10/23/2024 3:11 PM EDT [facility] CYCLOSPORA Not Detected Not Detected 10/23/2024 3:11 PM [facility] E HISTOLYTICA Not Detected Not Detected 10/23/2024 3:11 PM EDT [facility] GIARDIA LAMBLIA Not Detected Not Detected 10/23/2024 3:11 PM EDT [facility] ADENOVIRUS Not Detected Not Detected 10/23/2024 3:11 PM EDT [facility] ASTROVIRUS Not Detected Not Detected 10/23/2024 3:11 PM EDT [facility] NOROVIRUS Detected(A) Not Detected 10/23/2024 3:11 PM EDT [facility] Comment:Detects the followin g: Norovirus Genogroups I, II. The commercial attache has reported an increase in false positive Norovirus results. If the positive test is inconsistent with clinical presentation, a secondary method should be used to confirm the results. ROTAVIRUS A Not Detected Not Detected 10/23/2024 3:11 PM EDT [facility] SAPOVIRUS Not Detected Not Detected 10/23/2024 3:11 PM EDT [facility] Stool Feces / Unknown 10/23/2024 9 :48 AM EDT 10/23/2024 11:03 AM EDT us Kasie Mosley MD BODY FLUIDS AND STOOLS ORDERA BLES Final Result [facility] [address] [place] [address], [place] [phone] * Extra Urine (10/23/2024 9:48 AM EDT) Extra Tube Auto Resulted 10/23/2024 12:02 PM EDT [facility] Urine Urine specimen collection, clean catch / Unknown 10/23/2024 9:48 AM EDT 10/23/2024 11:03 AM EDT us Kasie Mosley MD URINE ORDERABLES Final Result [facility] [address] [place] [address], [place] * CT abdomen and pelvis without [...] No acute abnormality seen. Finalized by Mono Mcamnus MD on 10/23/2024 10:12 AM Procedure Note [...] Collection Tube) (10/23/2024 9:17 AM EDT) Pathologist [facility] FLU A PCR Negative Negative 10/23/2024 10:09 AM EDT [facility] FLU B PCR Negative Negative 10/23/2024 10:09 AM EDT [facility] RSV BY PCR Negative Negative 10/23/2024 10:09 AM EDT [facility] SARS COV 2 BY PCR Not Detected Not Detected 10/23/2024 10:09 AM EDT [facility] Swab Nasopharyngeal structure / Unknown 10/23/2024 9:17 AM EDT 10/23/2024 9:27 AM EDT Narrative [facility] - 10/23/2024 10:09 AM EDT The Xpert [...] operators who are performing tests using either [employer] or [employer] systems and is limited to laboratories that [...] specimen repeat. Fact Sheet for Healthcare Providers: https://www.fda.gov/media/266307/download Fact Sheet for Patients: https://www.fda.gov/media/074555/download us Kasie Mosley MD MICROBIOLOGY - GENERAL ORDERA BLES Final Result [facility] [address] [place] [address], * (ABNORMAL) CBC auto differential (10/23/2024 9:03 AM EDT) WBC 13.4(H) 4 - 11 x10E9/L 10/23/2024 9:25 AM EDT [facility] RBC Count 4.38 3.8 - 5.2 X10E12/L 10/23/2024 9:25 AM EDT [facility] Hemoglobin 12.4 11.7 - 15.5 g/dL 10/23/2024 9:25 AM EDT [facility] Hematocrit 37.5 35 - 47 % 10/23/2024 9:25 AM EDT [facility] MCV 86 80 - 100 fL 10/23/2024 9:25 AM EDT [facility] MCH 28.4 27 - 34 pg 10/23/2024 9:25 AM EDT [facility] MCHC 33.2 32 - 36 g/dL 10/23/2024 9:25 AM EDT [facility] RDW 15.0 11.5 - 15 % 10/23/2024 9:25 AM EDT [facility] Platelet Count 275 150 - 450 X10E9/L 10/23/2024 9:25 AM EDT [facility] MPV 9.2 7 - 12 fL 10/23/2024 9:25 AM EDT [facility] Neutrophils % 89.7 % 10/23/2024 9:25 AM EDT [facility] Lymphocytes % 5.8 % 10/23/2024 9:25 AM EDT [facility] Monocytes % 4.1 % 10/23/2024 9:25 AM EDT [facility] Eosinophils % 0.2 % 10/23/2024 9:25 AM EDT [facility] Basophils % 0.2 % 10/23/2024 9:25 AM EDT [facility] Neutrophils Absolute (A) 12.1(H) 1.5 - 6.6 10*3/uL 10/23/2024 9:25 AM EDT [facility] Lymphocytes Absolute 0.8(L) 1.0 - 3.5 10*3/uL 10/23/2024 9:25 AM EDT [facility] Monocytes Absolute 0.6 0.0 - 0.9 10*3/uL 10/23/2024 9:25 AM EDT [facility] Eosinophils Absolute 0.0 0.0 - 0.4 10*3/uL 10/23/2024 9:25 AM EDT [facility] Basophils Absolute 0.0 0.0 - 0.2 10*3/uL 10/23/2024 9:25 AM EDT [facility] Differential Type AUTOMATED DIFFERENTIAL 10/23/2024 9:25 AM EDT [facility] Blood Venous blood / Unknown Venipuncture / Unknown 10/23/2024 9:03 AM EDT 10/23/2024 9:10 AM EDT us Kasie Mosley MD LAB BLOOD ORDERABLES Final Re sult [facility] [address] [place] [address], [place] * Magnesium (10/23/2024 9:03 AM EDT) MAGNESIUM 1.8 1.8 - 2.6 mg/dL 10/23/2024 9:30 AM EDT [facility] Blood Venous blood / Unknown Venipuncture / Unknown 10/23/2024 9:03 AM EDT 10/23/2024 9:10 AM EDT Kasie Mosley MD LAB BLOOD ORDERABLES Final Re sult Performing Organization Address City/[facility]/ZIP Co de Phone Number [address] [place] [address], [place] * Lipase (10/23/2024 9:03 AM EDT) LIPASE 28 17 - 40 U/L 10/23/2024 9:27 AM EDT [facility] Blood Venous blood / Unknown Venipuncture / Unknown 10/23/2024 9:03 AM EDT 10/23/2024 9:10 AM EDT Kasie Mosley MD LAB BLOOD ORDERABLES Final Re sult Performing Organization Address City/[facility] Co de Phone Number [address] [place] [address], [place] * (ABNORMAL) Comprehensive metabolic panel (10/23/2024 9:03 AM EDT) SODIUM 138 134 - 146 mmol/L 10/23/2024 9:30 AM EDT [facility] POTASSIUM 3.7 3.5 - 5.0 mmol/L 10/23/2024 9:30 AM EDT [facility] CHLORIDE 106 98 - 109 mmol/L 10/23/2024 9:30 AM EDT [facility] CARBON DIOXIDE 23 22 - 32 mmol/L 10/23/2024 9:30 AM EDT [facility] ANION GAP 9 5 - 15 mmol/L 10/23/2024 9:30 AM EDT [facility] BLOOD UREA NITROGEN 18 5 - 27 mg/dL 10/23/2024 9:30 AM EDT [facility] CREATININE 0.62 0.40 - 1.00 mg/dL 10/23/2024 9:30 AM EDT [facility] Comment:METHOD TRACEABLE TO [facility] STANDARD GLUCOSE 142(H) 65 - 99 mg/dL 10/23/2024 9:30 AM EDT [facility] CALCIUM 8.6 8.5 - 10.5 mg/dL 10/23/2024 9:30 AM EDT [facility] TOTAL PROTEIN 7.4 6.0 - 8.0 g/dL 10/23/2024 9:30 AM EDT [facility] ALBUMIN 4.4 3.2 - 5.3 g/dL 10/23/2024 9:30 AM EDT [facility] ALKALINE PHOSPHATASE 59 39 - 130 U/L 10/23/2024 9:30 AM EDT [facility] AST 18 <=41 U/L 10/23/2024 9:30 AM EDT [facility] ALT 16 <=31 U/L 10/23/2024 9:30 AM EDT [facility] BILIRUBIN,TOTAL 0.6 0.3 - 1.2 mg/dL 10/23/2024 9:30 AM EDT [facility] EGFR Non-Race Dependent >90 >=60 ml/min/1.7 3sq.m 10/23/2024 9:30 AM EDT [facility] Comment: eGFR not reported due to non-numeric value for Creatinine. Reported eGFR is based on the CKD-EPI 2020 equation that does not use a race coefficient. Blood Venous blood / Unknown Venipuncture / Unknown 10/23/2024 9:03 AM EDT 10/23/2024 9:10 AM EDT us Kasie Mosley MD LAB BLOOD ORDERABLES Final Re sult [facility] [address] [facility] [place] [address], * Light Blue Top (10/23/2024 9:02 AM EDT) Extra Tube Auto Resulted 10/23/2024 11:01 AM EDT [facility] Blood Venous blood / Unknown 10/23/2024 9:02 AM EDT 10/23/2024 9:12 AM EDT us Kasie Mosley MD LAB BLOOD ORDERABLES Final Re sult [facility] [address] [place] [address], [place] from Last 3 Months Insurance MEDICARE FOR[facility]LY [facility] Care Teams Water Taxi Operator Relationship Specialty Start Date End Date Rusty Newman DO [address] [place] [address] PCP - General 11/09/13
--- OUTSIDE RECORDS SUMMARY | 2024-12-28 07:08 | XMS_ITS | Encounter Summary ---
Author Organization [facility] tem Address [id number] [address] [place] [address] Care Team Providers Care Coal Yard Supervisor Name Role Phone Rusty Newman DO Primary Care Provider [phone] Encounter Details Date Type Department Care Team (Late st Contact Info) Description 02/03/2024 Telephone [facility] Internal Medicine - Family Medicine [address] [place] [address] Fatoumata Chacko CMA Social History Tobacco Use [...] often do you attend chur ch or tenriism services? More than 4 times per year [...] Answer Date Recorded Total Score 0 01/20/2024 [facility] of Occupat ional Health [...] Recorded Do you need help finding a [facility] career center and/or a training program? No [...] Internal Medicine - Family Medicine [address] [place] [address] documented as of this encounter Visit Diagnoses [...] documented as of this encounter Care Teams Coal Yard Supervisor Relationship Specialty Start Date End Date Rusty Newman DO [address] [place] [address] PCP - General 11/09/13 documented as of this encounter
--- OUTSIDE RECORDS SUMMARY | 2024-12-28 07:08 | XMS_ITS | Encounter Summary ---
Author Organization [facility] [employer] [facility] tem Address [id number] [address] [place] [address] Care Team Providers Care User Experience Developer Name Role Phone Rusty Newman DO Primary Care Provider [phone] Encounter Details Date Type Department Care Team (Late st Contact Info) Description 12/13/2022 Orders Only [facility] Internal Medicine - Family Medicine [address] [place] [address] Rusty Newman DO [address] [place] [address] Postmenopausal bone loss (Primary Dx) Social History [...] Answer Date Recorded Total Score 2 11/27/2022 [facility] of Occupat ional Health - Occupational Stress [...] Medicine - Family Medicine [address] [place] [address] documented as of this encounter Results * [...] on 12/25/2022 6:14 PM Rusty Newman DO [facility] DXA ORDERABLES Final Result documented in this [...] documented as of this encounter Care Teams User Experience Developer Relationship Specialty Start Date End Date Rusty Newman DO [address] [place] [address] PCP - General 11/09/13 documented as of this encounter
--- OUTSIDE RECORDS SUMMARY | 2024-12-28 07:08 | XMS_ITS | Encounter Summary ---
Author [facility] Address [id number] [address] [place] [address] Care Team Providers Care Farm Planner Name Role Phone Rusty Newman DO Primary Care Provider [phone] Reason for Visit * Reason Comments Med Refill Encounter Details Date Type Department Care Team (Late st Contact Info) Description 11/29/2022 Refill [facility] Internal Medicine - Family Medicine [address] [place] [address] Rusty Newman DO [address] [place] [address] Vitamin D deficiency, unspecified Social History Tobacco [...] often do you attend chur ch or zoroastrianism services? More than 4 times per year 11/27/2022 Do you belong to any clubs o r organizations such as baptism groups, unions, fraternal [...] Answer Date Recorded Total Score 2 11/27/2022 [facility] of Occupat ional Health - Occupational [...] Internal Medicine - Family Medicine [address] [place] [address] documented as of this encounter Visit Diagnoses [...] documented as of this encounter Care Teams Farm Planner Relationship Specialty Start Date End Date Rusty Newman DO [address] [facility] [place] [address] PCP - General 11/09/13 documented as of this encounter
--- OUTSIDE RECORDS SUMMARY | 2024-12-28 07:08 | XMS_ITS | Encounter Summary ---
Author Organization [facility] tem Address [id number] [address] [place] [address] Care Team Providers Care Youth Development Professional Name Role Phone Rusty Newman DO Primary Care Provider [phone] Encounter Details Date Type Department Care Team (Late Contact Info) Description 04/25/2022 Orders Only [facility] Internal Medicine - Family Medicine [address] [place] [address] Rusty Newman DO [address] [place] [address] Cobalamin deficiency Social History Tobacco Use Types [...] Internal Medicine - Family Medicine [address] [place] [address] documented as of this encounter Visit Diagnoses [...] documented as of this encounter Care Teams Youth Development Professional Relationship Specialty Start Date End Date Rusty Newman DO [address] [place] [address] PCP - General 11/09/13 documented as of this encounter
--- OUTSIDE RECORDS SUMMARY | 2024-12-28 07:08 | XMS_ITS | Encounter Summary ---
Author Organization [facility] tem Address [facility][id number] [address] [place] [address] Care Team Providers Care Supervisor Electronics Inspection Name Role Phone Rusty Newman Primary Care Provider [phone] Encounter Details Date Type Department Care Team (Late st Contact Info) Description 02/04/2024 Telephone [facility] Internal Medicine - Family Medicine [address] [place] [address] Salena Gandhi CMA Social History Tobacco Use [...] any clubs o r organizations such as uatsdin groups, unions, fraternal or athletic groups, or [...] Recorded Do you need help finding a [facility] and/or a training program? [...] they are going to check with their sheriff officer to see what needs to be done. It has not been released. * Telephone Encounter - Rusty Newman DO - 02/04/2024 8:39 AM EDT Message noted. documented in this encounter Plan of Treatment Upcoming Encounters Date Type Department Care Team (Late st Contact Info) Description 03/02/2025 2:20 PM EST Office Visit [facility] Internal Medicine - Family Medicine [address] [facility] [place] [address] documented as of this encounter Visit Diagnoses [...] as of this encounter Care Teams Supervisor Electronics Inspection Relationship Specialty Start Date End Date Rusty Newman DO [address] [place] [address] PCP - General 11/09/13 documented as of this encounter
--- OUTSIDE RECORDS SUMMARY | 2024-12-28 07:08 | XMS_ITS | Encounter Summary ---
Author Organization [facility] [employer] tem Address [id number] [address] [place] [address] Care Team Providers Care Nut Culler Name Role Phone Rusty Newman DO Primary Care Provider [phone] Encounter Details Date Type Department Care Team (Late st Contact Info) Description 09/09/2024 Orders Only [facility] Internal Medicine - Family Medicine [address] [place] [address] Ref Prov, [place] [address] Social History Tobacco Use Types Packs/Day Years Used Date Smoking Tobacco: Never Smokeless Tobacco: Never Alcohol Use Standard Drinks/Week Comments No 0 (1 standard drink = 0.6 oz pur e alcohol) [facility] Utilities Answer Date Recorded In the [...] Answer Date Recorded Total Score 0 08/18/2024 [facility] of Occupat ional Health [...] Recorded Do you need help finding a [facility] and/or a training program? [...] Internal Medicine - Family Medicine [address] [facility] [place] [address] documented as of this encounter [...] documented as of this encounter Care Teams Nut Culler Relationship Specialty Start Date End Date Rusty Newman DO [address] [place] [address] PCP - General 11/09/13 documented as of this encounter
--- OUTSIDE RECORDS SUMMARY | 2024-12-28 07:08 | XMS_ITS | Encounter Summary ---
Author Organization [facility] Address [facility][id number] [address] [place] [address] Care Team Providers Care Business Development Name Role Phone Rusty Newman DO Primary Care Provider [phone] Encounter Details Date Type Department Care Team (Late st Contact Info) Description 04/10/2023 Orders Only [facility] Internal Medicine - Family Medicine [address] [place] [address] Lavern Rodriguez, MOBILE HOMES REPAIRER-DISPLAY ARTIST [address] [place] [address] Osteoarthritis of left shoulder, unspecified osteoarthritis type [...] often do you attend chur ch or sikh services? More than 4 times per year 11/27/2022 Do you belong to any clubs o r organizations such as holiness groups, unions, fraternal or athletic groups, or [...] Answer Date Recorded Total Score 0 03/19/2023 [facility] of Occupat ional Health - Occupational Stress [...] Internal Medicine - Family Medicine [address] [facility] [place] [address] documented as of this encounter Procedures Procedure Name Priority Date/Time Associated Diagnosis Comments AMB REFERRAL TO PAIN MANAGEMENT Routine 04/10/2023 12:13 PM EST Osteoarthritis of left shoulder, unspecified osteoarthritis type documented in this encounter Results * Ambulatory referral to Pain Management ([facility]) (04/10/2023 12:13 PM EST) Lavern Rodriguez MOBILE HOMES REPAIRER-DISPLAY ARTIST OUTPATIENT REFERRAL ORDERAB LES Final Result MANUALLY [...] documented as of this encounter Care Teams Business Development Relationship Specialty Start Date End Date Rusty Newman DO [address] [place] [address] PCP - General 11/09/13 documented as of this encounter
--- OUTSIDE RECORDS SUMMARY | 2024-12-28 07:08 | XMS_ITS | Encounter Summary ---
Author Organization [facility] [employer] [facility] tem Address [facility] [id number] [address] [place] [address] Care Team Providers Care Special Librarian Name Role Phone Rusty Newman DO Primary Care Provider [phone] Encounter Details Date Type Department Care Team (Late st Contact Info) Description 10/01/2022 Telephone [facility] Internal Medicine - Family Medicine [address] [place] [address] Rusty Newman DO [address] [place] [address] Social History Tobacco Use Types Packs/Day Years [...] to get a mammogram order faxed to [facility]. Thanks documented in this encounter Plan of Treatment Upcoming Encounters Date Type Department Care Team (Late st Contact Info) Description 03/02/2025 2:20 PM EST Office Visit [facility] Internal Medicine - Family Medicine [address] [place] [address] documented as of this encounter Visit Diagnoses [...] as of this encounter Care Teams Special Librarian Relationship Specialty Start Date End Date Rusty Newman DO [address] [facility] [place] [address] PCP - General 11/09/13 documented as of this encounter
--- OUTSIDE RECORDS SUMMARY | 2024-12-28 07:08 | XMS_ITS | Encounter Summary ---
Author Organization [employer] [facility] tem Address [facility] [id number] [address] [place] [address] Care Team Providers Care Leasing Consultant Name Role Phone Rusty Newman DO Primary Care Provider [phone] Encounter Details Date Type Department Care Team ([facility] Contact Info) Description 10/01/2022 Orders Only [facility] Internal Medicine - Family Medicine [address] [place] [address] Rusty Newman DO [address] [place] [address] Encounter for screening mammogram for malignant neoplasm [...] Upcoming Encounters Date Type Department Care Team ([facility] Contact Info) Description 03/02/2025 2:20 PM EST [facility] Medicine [address] [place] [address] documented as of this encounter Visit Diagnoses [...] documented as of this encounter Care Teams Leasing Consultant Relationship Specialty Start Date End Date Rusty Newman DO [address] [place] [address] PCP - General 11/09/13 documented as of this encounter
--- OUTSIDE RECORDS SUMMARY | 2024-12-28 07:08 | XMS_ITS | Encounter Summary ---
Author Organization [facility] tem Address [facility] [id number] [address] [place] [address] Care Team Providers Care Manager Strategic Sourcing Name Role Phone Rusty Newman DO Primary Care Provider [phone] Reason for Visit * Reason Comments Med Refill Encounter Details Date Type Department Care Team (Late st Contact Info) Description 05/20/2023 Refill [facility] Internal Medicine - Family Medicine [address] [place] [address] Rusty Newman DO [address] [place] [address] Hypothyroidism; Hyperlipidemia, unspecified Social History Tobacco Use [...] often do you attend chur ch or rastafari services? More than 4 times per year [...] Answer Date Recorded Total Score 0 03/19/2023 [facility] of Occupat ional [...] Recorded Do you need help finding a [facility] and/or a training [...] Internal Medicine - Family Medicine [address] [place] [address] documented as of this encounter Visit Diagnoses [...] as of this encounter Care Teams Manager Strategic Sourcing Relationship Specialty Start Date End Date Rusty Newman DO [address] [facility] [place] [address] PCP - General 11/09/13 documented as of this encounter
--- OUTSIDE RECORDS SUMMARY | 2024-12-28 07:08 | XMS_ITS | Encounter Summary ---
Author Organization [employer] tem Address [id number] [address] [place] [address] Care Team Providers Care Language Asst Name Role Phone Rusty Newman DO Primary Care Provider [phone] Encounter Details Date Type Department Care Team (Late st Contact Info) Description 02/04/2024 Documentation [facility] - Medical Oncology [address] [place] [address] Marianna Flynn RN Social History [...] often do you attend chur ch or protestant services? More than 4 times per year 11/27/2022 Do you belong to any clubs o r organizations such as christian groups, unions, fraternal or athletic groups, or [...] Answer Date Recorded Total Score 0 01/20/2024 [facility] of Occupat ional Health - Occupational [...] Recorded Do you need help finding a [facility] and/or a training [...] Medicine - Family Medicine [address] [place] [address] Scheduled Orders Name Type Priority Associated Diagnoses [...] documented as of this encounter Care Teams Language Asst Relationship Specialty Start Date End Date Rusty Newman DO [address] [facility] [place] [address] PCP - General 11/09/13 documented as of this encounter
--- OUTSIDE RECORDS SUMMARY | 2024-12-28 07:08 | XMS_ITS | Encounter Summary ---
Author Organization [employer] tem Address [id number] [address] [place] [address] Care Team Providers Care Asian Art Curator Name Role Phone Rusty Newman Primary Care Provider [phone] Encounter Details Date Type Department Care Team (Late st Contact Info) Description 05/25/2024 Telephone [facility] Internal Medicine - Family Medicine [address] [place] [address] Mary Beth Osman CMA Social History Tobacco Use Types Packs/Day Years Used Date Smoking Tobacco: Never Smokeless Tobacco: Never Alcohol Use Standard Drinks/Week Comments No 0 (1 standard drink = 0.6 oz pur e alcohol) [facility] Utilities Answer Date Recorded In the past 12 months has [employer], gas, oil, or water company threatened [...] often do you attend chur ch or jehovah's witness services? More than 4 times per year [...] Answer Date Recorded Total Score 0 05/19/2024 [facility] [place] of Occupat ional Health - Occupational Stress [...] - Family Medicine [address] [place] [address] documented as of this encounter Visit Diagnoses [...] documented as of this encounter Care Teams Asian Art Curator Relationship Specialty Start Date End Date Rusty Newman DO [address] [place] [address] PCP - General 11/09/13 documented as of this encounter
--- OUTSIDE RECORDS SUMMARY | 2024-12-28 07:08 | XMS_ITS | Encounter Summary ---
Author Organization [employer] [facility] tem Address [facility] [id number] [address] [place] [address] Care Team Providers Care Lens Fabricating Machine Tender Name Role Phone Rusty Newman DO Primary Care Provider [phone] Encounter Details Date Type Department Care Team (Late st Contact Info) Description 11/26/2022 Telephone [facility] Internal Medicine - Family Medicine [address] [place] [phone] Dipika Sagastume CMA Social History Tobacco Use [...] often do you attend chur ch or taoism services? More than 4 times [...] Answer Date Recorded Total Score 2 11/27/2022 [facility] of Occupat ional Health - Occupational Stress [...] 10:51 AM EDT Needs mammogram sent to [facility] documented in this encounter Plan of Treatment Upcoming Encounters Date Type Department Care Team (Late st Contact Info) Description 03/02/2025 2:20 PM EST Office Visit [facility] Internal Medicine - Family Medicine [address] [place] [address] documented as of this encounter Visit Diagnoses [...] documented as of this encounter Care Teams Lens Fabricating Machine Tender Relationship Specialty Start Date End Date Rusty Newman DO [address] [place] [address] PCP - General 11/09/13 documented as of this encounter
--- OUTSIDE RECORDS SUMMARY | 2024-12-28 07:08 | XMS_ITS | Encounter Summary ---
Author Organization [facility] tem Address [facility] [id number] [address] [place] [address] Care Team Providers Care Green Building Architect Name Role Phone Rusty Newman DO Primary Care Provider [phone] Encounter Details Date Type Department Care Team ([facility] Contact Info) Description 04/23/2022 Orders Only [facility] Internal Medicine - Family Medicine [address] [place] [address] Rusty Newman DO [address] [place] [address] Cobalamin deficiency (Primary Dx) Social History Tobacco [...] Upcoming Encounters Date Type Department Care Team ([facility] Contact Info) Description 03/02/2025 2:20 PM EST Office Visit [facility] Internal Medicine - Family Medicine [address] [place] [address] documented as of this encounter Visit Diagnoses [...] documented as of this encounter Care Teams Green Building Architect Relationship Specialty Start Date End Date Rusty Newman DO [address] [place] [address] PCP - General 11/09/13 documented as of this encounter
--- OUTSIDE RECORDS SUMMARY | 2024-12-28 07:09 | XMS_ITS | Encounter Summary ---
Author Organization [facility] tem Address [id number] [address] [place] [address] Care Team Providers Care Gas Regulator Repairer Helper Name Role Phone Rusty Newman DO Primary Care Provider [phone] Encounter Details Date Type Department Care Team (Late st Contact Info) Description 01/22/2024 Orders Only [facility] Internal Medicine - Family Medicine [address] [place] [address] Rusty Newman DO [address] [place] [address] Age-related osteoporosis without current pathological fracture (Primary [...] any clubs o r organizations such as presybeterian groups, unions, fraternal or athletic groups, or [...] Date Recorded Total Score 0 01/20/2024 [facility] of Occupat ional Health [...] Recorded Do you need help finding a [facility] and/or a training program? [...] Internal Medicine - Family Medicine [address] [place] [address] documented as of this encounter Visit Diagnoses [...] documented as of this encounter Care Teams Gas Regulator Repairer Helper Relationship Specialty Start Date End Date Rusty Newman DO [address] [place] [address] PCP - General 11/09/13 documented as of this encounter
--- OUTSIDE RECORDS SUMMARY | 2024-12-28 07:09 | XMS_ITS | Encounter Summary ---
Author Organization [employer] [facility] tem Address [facility] [place]-[id number] [address] [place] [address] Care Team Providers Care Human Performance Professor Name Role Phone Rusty Newman DO Primary Care Provider [phone] Encounter Details Date Type Department Care Team (Late st Contact Info) Description 06/18/2023 Telephone [facility] Internal Medicine - Family Medicine [address] [place] [address] Rusty Newman DO [address] [place] [address] Social History Tobacco Use Types Packs/Day Years [...] often do you attend chur ch or shinto services? More than 4 times per year 11/27/2022 Do you belong to any clubs o r organizations such as orthodox groups, unions, fraternal or athletic groups, or [...] Answer Date Recorded Total Score 0 05/30/2023 [facility] [place] of Occupat ional Health - Occupational Stress [...] Internal Medicine - Family Medicine [address] [place] [address] documented as of this encounter Visit Diagnoses [...] documented as of this encounter Care Teams Human Performance Professor Relationship Specialty Start Date End Date Rusty Newman DO [address] [facility] [place] [address] PCP - General 11/09/13 documented as of this encounter
--- OUTSIDE RECORDS SUMMARY | 2024-12-28 07:09 | XMS_ITS | CCD ---
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 SUZIE, ANGELLA Campos Attending Unavailfiliberto MCKEON [...] YUHAS, SANGEETHA L Primary Care Unavailable MARCIO FLORSE Attending Unavailable YUHAS, SANGEETHA L Referring Unavailable [...] Primary Care Unavailable CHEMAYODEMARTIN Attending Unavailable YUHAS, SANGETEHA L Attending Unavailable YUHAS, SANGEETHA L Referring Unavailable YUHAS, SANGEETHA L Primary Care Unavailable Kenyatta ROOT, Delmer Mathias Attending Unavailable Kenyatta ROOT, Delmer Mathias Attending Unavailable Allergies Allergy Classification Reported Allergen(s) Allergy Type Date of Onset Reaction(s) Facility (1 source) Aspirin Drug Allergy [facility] Repository (4 sources) Codeine; Translations: [CODEINE] Drug Allergy 8 [facility] Repository (1 source) Etodolac Drug Allergy [facility] Repository (4 sources) Iodine; Translations: [IODINE] Drug Allergy 8 [facility] Repository (4 sources) Latex; Translations: [LATEX] Drug allergy (disorder) 3 [facility] Repository (1 source) pregabalin Drug Allergy [facility] Repository (1 source) Sulfonamides (Antibiotic) Drug allergy (disorder) [facility] Repository (12 sources) Aluminum aspirin Drug Allergy 4 [facility] (20 sources) Codeine Drug Allergy 8 Rash, Unknown [facility] (15 sources) Etodolac; Translations: [ETODOLAC] Propensity to adverse reactions 3 [facility] (20 sources) Iodine Drug Allergy 8 Anaphylaxis [facility] (12 sources) Latex Propensity to adverse reactions 3 [facility] (15 sources) Penicillins; Translations: [PENICILLINS] Drug Intolerance 8 Hives [facility] (20 sources) Sulfonamides (Antibiotic) Drug Intolerance 8 Rash, Unknown [facility] (20 sources) Aspirin; Translations: [ASPIRIN, BUFFERED] Drug Allergy 8 [facility] (20 sources) Etodolac Drug Allergy 3 [facility] (20 sources) Latex Propensity to adverse reactions to drug 3 [facility] (16 sources) Penicillins Propensity to adverse reactions to drug 8 [facility] (8 sources) Penicillins Propensity to adverse reactions to drug 8 [facility] (3 sources) Sulfonamides (Antibiotic); Translations: [SULFA [...] Active ondansetron 4 mg disintegrating oral tablet (19 sources) Serotonin-3 Receptor Antagonist Start: 12-24-2023 ondansetron [...] infection (3 sources) Viral gastroenteritis due to Egeland-like agent; Translations: [Acute gastroenteropathy due to Egeland agent] Onset: 4 11-02-2024 Episodic Mood disorders [...] Nugent MD on 11/05/2024 10:41 PM Normal [facility] CBC WITH AUTO DIFFERENTIALon 10-23-2024 BASOPHILS ABSOLUTE COUNT (10*3/UL) BY AUTOMATED COUNT 0.0 10*3/uL Normal 0.0-0.2 [facility] Comment on above: Performed By: #### C TANNER HARDY, 3040-3 #### [facility] ([id number]) [address] [place] [address] 96366 BASOPHILS RELATIVE PERCENT BY AUTOMATED COUNT 0.2 % Normal [facility] Comment on above: Performed By: #### Renee HARDY CMP, 3040-3 #### [facility] ([id number]) [address] [place] [address] 17029 CELLAVISION DIFFERENTIAL TYPE AUTOMATED DIFFERENTIAL Normal [facility] Comment on above: Performed By: #### Renee HARDY CMP, 3040-3 #### [facility] ([id number]) [address] [place] [address] 64488 Eosinophils (Bld) [#/Vol] 0.0 10*3/uL Normal 0.0-0.4 [facility] Comment on above: Performed By: #### Renee HARDY CMP, 3039-3 #### [facility] ([id number]) [address] [place] [address] 77628 EOSINOPHILS RELATIVE PERCENT BY AUTOMATED COUNT 0.2 % Normal [facility] Comment on above: Performed By: #### C HAYLEY CMP, 3039-3 #### [facility] ([id number]) [address] [place] [address] 67180 Erythrocyte distribution width (RBC) [Ratio] 15.0 % Normal 11.5-15 [facility] Comment on above: Performed By: #### C HAYLEY CMP, 3 #### [facility] ([id number]) [address] [place] [address] 77279 Hematocrit (Bld) [Volume fraction] 37.5 % Normal 35-47 [facility] Comment on above: Performed By: #### Renee HARDY CMP, 3 #### [facility] ([id number]) [address] [place] [address] 82023 Hemoglobin (Bld) [Mass/Vol] 12.4 g/dL Normal 11.7-15.5 [facility] Comment on above: Performed By: #### Renee HARDY CMP, 3039-3 #### [facility] ([id number]) [address] [place] [address] 18073 LYMPHOCYTES ABSOLUTE COUNT (10*3/UL) BY AUTOMATED COUNT 0.8 10*3/uL Low 1.0-3.5 [facility] Comment on above: Performed By: #### C HAYLEY, CMP, 3039-3 #### [facility] ([id number]) [address] [place] [address] 25927 LYMPHOCYTES RELATIVE PERCENT BY AUTOMATED COUNT 5.8 % Normal [facility] Comment on above: Performed By: #### C HAYLEY CMP, 3039-3 #### [facility] ([id number]) [address] [place] [address] 41491 MCH (RBC) [Entitic mass] 28.4 pg Normal 27-34 [facility] Comment on above: Performed By: #### Renee HARDY CMP, 3039-3 #### [facility] ([id number]) [address] [place] [address] 96854 MCHC (RBC) [Mass/Vol] 33.2 g/dL Normal 32-36 [facility] Comment on above: Performed By: #### Renee HARDY CMP, 3 #### [facility] ([id number]) [address] [place] [address] 84658 MCV (RBC) [Entitic vol] 86 fL Normal 80-100 [facility] Comment on above: Performed By: #### Renee HARDY CMP, 3 #### [facility] ([id number]) [address] [place] [address] 83899 MONOCYTES ABSOLUTE COUNT (10*3/UL) BY AUTOMATED COUNT 0.6 10*3/uL Normal 0.0-0.9 [facility] Comment on above: Performed By: #### Renee HARDY CMP, 3 #### [facility] ([id number]) [address] [place] [address] 73560 MONOCYTES RELATIVE PERCENT BY AUTOMATED COUNT 4.1 % Normal [facility] Comment on above: Performed By: #### Renee HARDY CMP, 3039-06 #### [facility] ([id number]) [address] [place] [address] 04633 NEUTROPHILS ABSOLUTE COUNT BY AUTOMATED COUNT 12.1 10*3/uL High 1.5-6.6 [facility] Comment on above: Performed By: #### Renee HARDY CMP, 3039-3 #### [facility] ([id number]) [address] [place] [address] 58681 NEUTROPHILS RELATIVE PERCENT BY AUTOMATED COUNT 89.7 % Normal [facility] Comment on above: Performed By: #### C HAYLEY, CMP, 3039-3 #### [facility] ([id number]) [address] [place] [address] 54527 Platelet mean volume (Bld) [Entitic vol] 9.2 fL Normal 7-12 [facility] Comment on above: Performed By: #### C HAYLEY, CMP, 3039-3 #### [facility] ([id number]) [address] [place] [address] 34741 Platelets (Bld) [#/Vol] 275 10*3/uL Normal 150-450 [facility] Comment on above: Performed By: #### C HALYEY, CMP, 3039-3 #### [facility] ([id number]) [address] [place] [address] 87464 RBC COUNT 4.38 X10E12/L Normal 3.8-5.2 [facility] Comment on above: Performed By: #### C HAYLEY, CMP, 3 #### [facility] ([id number]) [address] [place] [address] 57389 WBC (Bld) [#/Vol] 13.4 10*3/uL High 4-11 [facility] Comment on above: Performed By: #### C HAYLEY, CMP, 3039-3 #### [facility] ([id number]) [address] [place] [address] 11917 COMPREHENSIVE METABOLIC PANE Ulices 10-23-2024 Albumin [Mass/Vol] 4.4 g/dL Normal 3.2-5.3 [facility] Comment on above: Performed By: #### C BCA, CMP, 3039-3 #### [facility] ([id number]) [address] [place] [address] 71016 ALP [Catalytic activity/Vol] 59 U/L Normal 39-130 [facility] Comment on above: Performed By: #### C BCA, CMP, 3039-3 #### [facility] ([id number]) [address] [place] [address] 81451 ALT [Catalytic activity/Vol] 16 U/L Normal <=31 [facility] Comment on above: Performed By: #### C BCA, CMP, 3039-3 #### [facility] ([id number]) [address] [place] [address] 20078 Anion gap [Moles/Vol] 9 mmol/L Normal 5-15 [facility] Comment on above: Performed By: #### C BCA, CMP, 3 #### [facility] ([id number]) [address] [place] [address] 60444 AST [Catalytic activity/Vol] 18 U/L Normal <=41 [facility] Comment on above: Performed By: #### C BCA, CMP, 3 #### [facility] ([id number]) [address] [place] [address] 87903 Bilirubin [Mass/Vol] 0.6 mg/dL Normal 0.3-1.2 [facility] Comment on above: Performed By: #### C BCA, CMP, 3039-3 #### [facility] ([id number]) [address] [place] [address] 68769 Calcium [Mass/Vol] 8.6 mg/dL Normal 8.5-10.5 [facility] Comment on above: Performed By: #### C BCA, CMP, 3 #### [facility] ([id number]) [address] [place] [address] 89084 Chloride [Moles/Vol] 106 mmol/L Normal 98-109 [facility] Comment on above: Performed By: #### C BCA, CMP, 3039-3 #### [facility] ([id number]) [address] [place] [address] 63702 CO2 [Moles/Vol] 23 mmol/L Normal 22-32 [facility] Comment on above: Performed By: #### C TANNER HARDY, 3040-3 #### [facility] ([id number]) [address] [place] [address] 46767 Creatinine [Mass/Vol] 0.62 mg/dL Normal 0.40-1.00 [facility] Comment on above: Result Comment: METH OD TRACEABLE TO IDMS STANDARD Performed By: #### C TANNER HARDY, 3039-3 #### [facility] ([id number]) [address] [place] [address] 37613 EGFR (CKD-EPI) NON-RACE DEPENDENT >^90 Normal >=60 [facility] Comment on above: Result Comment: eGFR not reported due to non-numeric value for Creatinine. Reported eGFR is based on the CKD-EPI 2020 equation that does not use a race coefficient. Performed By: #### C TANNER HARDY, 3 #### [facility] ([id number]) [address] [place] [address] 01394 Glucose [Mass/Vol] 142 mg/dL High 65-99 [facility] Comment on above: Performed By: #### Renee HARDY CMP, 3039-3 #### [facility] ([id number]) [address] [place] [address] 63831 Potassium [Moles/Vol] 3.7 mmol/L Normal 3.5-5.0 [facility] Comment on above: Performed By: #### C TANNER HARDY, 3039-3 #### [facility] ([id number]) [address] [place] [address] 20727 Protein [Mass/Vol] 7.4 g/dL Normal 6.0-8.0 [facility] Comment on above: Performed By: #### Renee HARDY CMP, 3039-3 #### [facility] ([id number]) [address] [place] [address] Sodium [Moles/Vol] 138 mmol/L Normal 134-146 [facility] Comment on above: Performed By: #### C TANNER HARDY, 3040-3 #### [facility] ([id number]) [address] [place] [address] Urea nitrogen [Mass/Vol] 18 mg/dL Normal 5-27 [facility] Comment on above: Performed By: #### C HAYLEY, CMP, 3040-3 #### [facility] ([id number]) [address] [place] [address] CT ABDOMEN AND PELVIS WO CON Ton [...] Mcmanus MD on 10/23/2024 10:12 AM Normal [facility] GI PANEL STOOL PATHOGEN PANE Ulices 10-23-2024 ADENOVIRUS Not detected Normal Not Detected [facility] Comment on above: Performed By: #### C HAYLEY, CMP, 3040-3 #### [facility] ([id number]) [address] [place] [address] [place] [address] AGGREGATIVE E COLI Not detected Normal Not Detected [facility] Comment on above: Performed By: #### C BCA, CMP, 3040-3 #### [facility] ([id number]) [address] [place] [address] [place] [address] ASTROVIRUS Not detected Normal Not Detected [facility] Comment on above: Performed By: #### C BCA, CMP, 3040-3 #### [facility] ([id number]) [address] [place] [address] [place] [address] CAMPYLOBACTER Not detected Normal Not Detected [facility] Comment on above: Performed By: #### C BCA, CMP, 3040-3 #### [facility] ([id number]) [address] [place] [address] [place] [address] CRYPTOSPORIDIUM Not detected Normal Not Detected [facility] Comment on above: Performed By: #### C BCA, CMP, 3040-3 #### [facility] ([id number]) [address] [place] [address] [place] [address] CYCLOSPORA Not detected Normal Not Detected [facility] Comment on above: Performed By: #### C BCA, CMP, 3040-3 #### [facility] ([id number]) [address] [place] [address] [place] [address] E HISTOLYTICA Not detected Normal Not Detected [facility] Comment on above: Performed By: #### C BCA, CMP, 3040-3 #### [facility] ([id number]) [address] [place] [address] 48325 GIARDIA LAMBLIA Not detected Normal Not Detected [facility] Comment on above: Performed By: #### C BCA, CMP, 3040-3 #### [facility] ([id number]) [address] [place] [address] [place] [address] NOROVIRUS Detected Abnormal Not Detected [facility] Comment on above: Result Comment: Dete cts the following: Norovirus Genogroups I, II. The field associate has reported an increase in false positive Norovirus results. If the positive test is inconsistent with clinical presentation, a secondary method should be used to confirm the results. Performed By: #### C BCA, CMP, 3040-3 #### [facility] ([id number]) [address] [place] [address] 63901 PATHOGENIC E COLI Not detected Normal Not Detected [facility] Comment on above: Performed By: #### C HAYLEY, CMP, 0-3 #### [facility] ([id number]) [address] [place] [address] 04309 PLESIOMONAS Not detected Normal Not Detected [facility] Comment on above: Performed By: #### C TANNER HARDY, 3039-3 #### [facility] ([id number]) [address] [place] [address] [place] [address] ROTAVIRUS A Not detected Normal Not Detected [facility] Comment on above: Performed By: #### C HAYLEY [facility], 3039-3 #### [facility] ([id number]) [address] [place] [address] [place] [address] SALMONELLA Not detected Normal Not Detected [facility] Comment on above: Performed By: #### C BCA, CMP, 0-3 #### [facility] ([id number]) [address] [place] [address] [place] [address] SAPOVIRUS Not detected Normal Not Detected [facility] Comment on above: Performed By: #### C BCA, CMP, 0-3 #### [facility] ([id number]) [address] [place] [address] [place] [address] SHIGA TOXIN E COLI Not detected Normal Not Detected [facility] Comment on above: Performed By: #### C BCA, CMP, 0-3 #### [facility] ([id number]) [address] [place] [address] [place] [address] SHIGELLA-E COLI Not detected Normal Not Detected [facility] Comment on above: Performed By: #### C HAYLEY, CMP, 3040-3 #### [facility] ([id number]) [address] [place] [address] 91275 TOXIGENIC E COLI Not detected Normal Not Detected [facility] Comment on above: Performed By: #### C HAYLEY, CMP, 3039-3 #### [facility] ([id number]) [address] [place] [address] 51853 VIBRIO Not detected Normal Not Detected [facility] Comment on above: Performed By: #### C HAYLEY CMP, 3039-3 #### [facility] ([id number]) [address] [place] [address] 49186 VIBRIO CHOLERAE Not detected Normal Not Detected [facility] Comment on above: Performed By: #### C HAYLEY, [facility], 3039-3 #### [facility] ([id number]) [address] [place] [address] 46928 Y. ENTEROCOLITICA Not detected Normal Not Detected [facility] Comment on above: Performed By: #### Renee HARDY, CMP, 0-3 #### [facility] ([id number]) [address] [place] [address] 56715 LIPASEon 10-23-2024 Lipase [Catalytic activity/Vol] 28 U/L Normal 17-40 [facility] Comment on above: Performed By: #### Renee HARDY, CMP, 0-3 #### [facility] ([id number]) [address] [place] [address] 53054 MAGNESIUMon 10-23-2024 Magnesium [Mass/Vol] 1.8 mg/dL Normal 1.8-2.6 [facility] Comment on above: Performed By: #### C HAYLEY, CMP, 304-3 #### [facility] ([id number]) [address] [place] [address] 57157 POCT NURSING URINE MACROSCOP IC UAon 10-23-2024 BILIRUBIN STUART Negative Normal Negative [facility] Comment on above: Performed By: #### Renee HARDY CMP, 3039-3 #### [facility] ([id number]) [address] [place] [address] 28041 BLOOD/HGB STUART Trace Abnormal Negative [facility] Comment on above: Performed By: #### Renee HARDY CMP, 3039-3 #### [facility] ([id number]) [address] [place] [address] 46913 GLUCOSE STUART Negative Normal Negative [facility] Comment on above: Performed By: #### Renee HARDY CMP, 3039-3 #### [facility] ([id number]) [address] [place] [address] [place] [address] KETONES STUART 15 mg/dL Abnormal Negative [facility] Comment on above: Performed By: #### Renee HARDY CMP, 3 #### [facility] ([id number]) [address] [place] [address] [place] [address] LEUKOCYTE ESTERASE STUART Negative Normal Negative [facility] Comment on above: Performed By: #### Renee HARDY CMP, 3039-3 #### [facility] ([id number]) [address] [place] [address] [place] [address] NITRITE STUART Positive Abnormal Negative [facility] Comment on above: Performed By: #### Renee HARDY CMP, 3039-3 #### [facility] ([id number]) [address] [place] [address] 87148 PH STUART 7.0 Normal 5.0, 6.0, 6.5, 7.0, 7.5, 8.0, 8.5, 5.5 [facility] Comment on above: Performed By: #### C HAYLEY [facility], 3040-3 #### [facility] ([id number]) [address] [place] [address] 33323 PROTEIN STUART Trace Abnormal Negative [facility] Comment on above: Performed By: #### C HAYLEY [facility], 3040-3 #### [facility] ([id number]) [address] [place] [address] SPECIFIC GRAVITY STUART 1.020 Normal 1.010, 1.015, 1.020, 1.025 [facility] Comment on above: Performed By: #### C HAYLEY [facility], 3040-3 #### [facility] ([id number]) [address] [place] [address] 05185 UROBILINOGEN STUART 0.2 E.U./dL Normal [facility] Comment on above: Performed By: #### C HAYLEY [facility], 3040-3 #### [facility] ([id number]) [address] [place] [address] 44263 SARS/FLU A+B/RSV BY NAAT/MOL ECULAR (M4RT COLLECTION TUBE)on 10-23-2024 SARS/FLU A+B/RSV BY NAAT/MOLECULAR (M4RT COLLECTION TUBE) FLU A PCR Negative FLU B PCR Negative RSV BY PCR Negative SARS COV 2 BY PCR Not Detected Normal Not Detected [facility] Comment on above: Order Comment: The [...] operators who are performing tests using either [employer] or [employer] systems and is limited to laboratories that [...] resolved with specimen repeat.Fact Sheet for Healthcare Providers:https://www.fda.gov/media/478759/downloadFact Sheet for Patients:https://www.fda.gov/media/915416/download Performed By: #### C HAYLEY, [facility], 3040-3 #### [facility] ([id number]) [address] [place] [address], [place] [address] No Panel Informationon 10-21 Jr. Angella campos, DO 10/31/2024 4:18 PM L Inj/Asp: R subacromial bursa on 10/21/2024 10:48 AM Indications: pain Details: 21 G needle, posterior approach Medications: 40 mg methylPREDNISolone acetate 40 MG/ML Outcome: tolerated well, no immediate complications SKIN PREPPED WITH ISOPROPYL ALCOHOL Procedure, treatment alternatives, risks and benefits explained, specific risks discussed. Consent was given by the patient. [facility] e No Panel Informationon 09-09 Jr. Angella campos, DO 09/15/2024 7:30 AM L Inj/Asp: R subacromial bursa on 09/09/2024 10:26 AM Indications: pain Details: 21 G needle, posterior approach Medications: 40 mg methylPREDNISolone acetate 40 MG/ML Outcome: tolerated well, no immediate complications Procedure, treatment alternatives, risks and benefits explained, specific risks discussed. Consent was given by the patient. 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 [facility] [employer] Radiology Study observation (narrative) [facility] [employer] COMPREHENSIVE METABOLIC PANE Ulices 08-18-2024 Albumin [Mass/Vol] 4.3 g/dL Normal 3.2-5.3 [facility] Comment on above: Performed By: #### C MP #### [facility] ([facility]) [address] [place] [address] VIR ALP [Catalytic activity/Vol] 56 U/L Normal 39-130 [facility] Comment on above: Performed By: #### C MP #### [facility] ([facility]) [address] [place] [address] VIR ALT [Catalytic activity/Vol] 15 U/L Normal <=31 [facility] Comment on above: Performed By: #### C MP #### [facility] ([facility]) [address] [place] [address] VIR Anion gap [Moles/Vol] 10 mmol/L Normal 5-15 [facility] Comment on above: Performed By: #### C MP #### [facility] ([facility]) [address] [place] [address] VIR AST [Catalytic activity/Vol] 18 U/L Normal <=41 [facility] Comment on above: Performed By: #### C MP #### [facility] ([facility]) [address] [place] [address] VIR Bilirubin [Mass/Vol] 0.3 mg/dL Normal 0.3-1.2 [facility] Comment on above: Performed By: #### C MP #### [facility] ([facility]) [address] [place] [address] VIR Calcium [Mass/Vol] 9.3 mg/dL Normal 8.5-10.5 [facility] Comment on above: Performed By: #### C MP #### [facility] ([facility]) [address] [place] [address] VIR Chloride [Moles/Vol] 102 mmol/L Normal 98-109 [facility] Comment on above: Performed By: #### C MP #### [facility] ([facility]) [address] [place] [address] VIR CO2 [Moles/Vol] 28 mmol/L Normal 22-32 [facility] Comment on above: Performed By: #### C MP #### [facility] ([facility]) [address] [place] [address] VIR Creatinine [Mass/Vol] 0.59 mg/dL Normal 0.40-1.00 [facility] Comment on above: Result Comment: METH OD TRACEABLE TO IDMS STANDARD Performed By: #### C MP #### [facility] ([facility]) [address] [place] [address] VIR EGFR (CKD-EPI) NON-RACE DEPENDENT >^90 Normal >=60 [facility] Comment on above: Result Comment: Repo rted eGFR is based on the CKD-EPI 2020 equation that does not use a race coefficient. Performed By: #### C MP #### [facility] ([facility]) [address] [place] [address] VIR Glucose [Mass/Vol] 82 mg/dL Normal 65-99 [facility] Comment on above: Performed By: #### C MP #### [facility] ([facility]) [address] [place] [address] VIR Potassium [Moles/Vol] 3.7 mmol/L Normal 3.5-5.0 [facility] Comment on above: Performed By: #### C MP #### [facility] ([facility]) [address] [place] [address] VIR Protein [Mass/Vol] 6.7 g/dL Normal 6.0-8.0 [facility] Comment on above: Performed By: #### C MP #### [facility] ([facility]) [address] [place] [address] VIR Sodium [Moles/Vol] 140 mmol/L Normal 134-146 [facility] Comment on above: Performed By: #### C MP #### [facility] ([facility]) [address] [place] [address] VIR Urea nitrogen [Mass/Vol] 17 mg/dL Normal 5-27 [facility] Comment on above: Performed By: #### C MP #### [facility] ([facility]) [address] [place] [address] VIR LIPID PROFILEon 08-18-2024 Cholesterol [Mass/Vol] 153 mg/dL Normal 150-200 [facility] Comment on above: Performed By: #### L IPR #### [facility] ([facility]) [address] [place] [address] VIR Cholesterol in HDL [Mass/Vol] 54 mg/dL Normal >39 [facility] Comment on above: Result Comment: HDL <40 mg/dL - High Risk HDL > or = 40mg/dL- Desirable HDL >60 mg/dL - Negative Risk Performed By: #### L IPR #### [facility] ([facility]) [address] [place] [address] VIR Cholesterol in LDL [Mass/Vol] 75 mg/dL Normal <130 [facility] Comment on above: Result Comment: LDL <100 mg/dL - Desirable LDL >160 mg/dL - High Risk Performed By: #### L IPR #### [facility] ([facility]) [address] [place] [address] VIR CHOLESTEROL:HDL 2.8 Normal 1.0-5.0 [facility] Comment on above: Performed By: #### L IPR #### [facility] ([facility]) [address] [place] [address] VIR Triglyceride [Mass/Vol] 120 mg/dL Normal 27-150 [facility] Comment on above: Performed By: #### L IPR #### [facility] ([facility]) [address] [place] [address] VIR VERY LOW LIPOPROTEIN 24 mg/dL Normal 0-30 [facility] Comment on above: Performed By: #### L IPR #### [facility] ([facility]) [address] [place] [address] VIR XR FOOT RT MIN 3 VWSon [...] Perez MD on 05/23/2024 9:39 PM Normal [facility] CBC AND AUTO DIFFon 05-19-19 25 ABSOLUTE BASOPHIL 0.0 X10E9/L Normal 0.0-0.2 [facility] Comment on above: Performed By: #### C BCA, CMP, THYR, 2131-12, 76245-2 #### [facility] ([id number]) [address], [address] [place] [address] ABSOLUTE NEUTROPHIL 4.4 X10E9/L Normal 1.5-6.6 [facility] Comment on above: Performed By: #### C BCA, CMP, THYR, 2131-12, 51381-7 #### [facility] ([id number]) [address], [address] [place] [address] Basophils/100 WBC (Bld) 0.2 % Normal [facility] Comment on above: Performed By: #### C BCA, CMP, THYR, 2131-12, 40511-3 #### [facility] ([id number]) [address], [address] [place] [address] Eosinophils (Bld) [#/Vol] 0.1 10*3/uL Normal 0.0-0.4 [facility] Comment on above: Performed By: #### C BCA, CMP, THYR, 2131-12, 15349-9 #### [facility] ([id number]) [address] [address] [place] [address] Eosinophils/100 WBC (Bld) 1.2 % Normal [facility] Comment on above: Performed By: #### C BCA, CMP, THYR, 2131-12, 74536-2 #### [facility] ([id number]) [address] [address] [place] [address] Erythrocyte distribution width (RBC) [Ratio] 14.9 % Normal 11.5-15.0 [facility] Comment on above: Performed By: #### C BCA, CMP, THYR, 2131-12, 11019-6 #### [facility] ([id number]) [address] [address] [place] [address] Hematocrit (Bld) [Volume fraction] 34.6 % Low 35-47 [facility] Comment on above: Performed By: #### C BCA, CMP, THYR, 2131-12, 63705-0 #### [facility] ([id number]) [address], [address] [place] [address] Hemoglobin (Bld) [Mass/Vol] 11.2 g/dL Low 11.7-15.5 [facility] Comment on above: Performed By: #### C BCA, CMP, THYR, 2131-12, 82868-8 #### [facility] ([id number]) [address], [address] [place] [address] Lymphocytes (Bld) [#/Vol] 2.5 10*3/uL Normal 1.0-3.5 [facility] Comment on above: Performed By: #### C BCA, CMP, THYR, 2131-12, 31449-2 #### [facility] ([id number]) [address], [address] [place] [address] Lymphocytes/100 WBC (Bld) 33.7 % Normal [facility] Comment on above: Performed By: #### C BCA, CMP, THYR, 2131-12, 66309-4 #### [facility] ([id number]) [address], [address] [place] [address] MCH (RBC) [Entitic mass] 27.7 pg Normal 27-34 [facility] Comment on above: Performed By: #### C BCA, CMP, THYR, 2131-12, 32630-5 #### [facility] ([id number]) [address], [address] [place] [address] MCHC (RBC) [Mass/Vol] 32.4 g/dL Normal 32-36 [facility] Comment on above: Performed By: #### C BCA, CMP, THYR, 2131-12, 65788-6 #### [facility] ([id number]) [address], [address] [place] [address] MCV (RBC) [Entitic vol] 86 fL Normal 80-100 [facility] Comment on above: Performed By: #### C BCA, CMP, THYR, 2131-12, 03017-0 #### [facility] ([id number]) [address], [address] [place] [address] Monocytes (Bld) [#/Vol] 0.4 10*3/uL Normal 0-0.9 [facility] Comment on above: Performed By: #### C BCA, CMP, THYR, 2131-12, 53631-5 #### [facility] ([id number]) [address], [address] [place] [address] Monocytes/100 WBC (Bld) 5.8 % Normal [facility] Comment on above: Performed By: #### C BCA, CMP, THYR, 2131-12, 09319-9 #### [facility] ([id number]) [address] [place] [address] Neutrophils/100 WBC (Bld) 59.1 % Normal [facility] Comment on above: Performed By: #### C BCA, CMP, THYR, 2131-12, 52408-5 #### [facility] ([id number]) [address], [address] [place] [address] Platelet mean volume (Bld) [Entitic vol] 9.4 fL Normal 7-12 [facility] Comment on above: Performed By: #### C BCA, CMP, THYR, 2131-12, 08036-8 #### [facility] ([id number]) [address], [address] [place] [address] Platelets (Bld) [#/Vol] 242 10*3/uL Normal 150-450 [facility] Comment on above: Performed By: #### C BCA, CMP, THYR, 2131-12, 99967-4 #### [facility] ([id number]) [address], [address] [place] [address] RBC COUNT 4.04 X10E12/L Normal 3.80-5.20 [facility] Comment on above: Performed By: #### C BCA, CMP, THYR, 2131-12, 84094-6 #### [facility] ([id number]) [address], [address] [place] [address] WBC (Bld) [#/Vol] 7.5 10*3/uL Normal 4.0-11.0 [facility] Comment on above: Performed By: #### C BCA, CMP, THYR, 2131-12, 29485-0 #### [facility] ([id number]) [address], [address] [place] [address] COMPREHENSIVE METABOLIC PANE Ulices 05-19-2024 Albumin [Mass/Vol] 4.3 g/dL Normal 3.2-5.3 [facility] Comment on above: Performed By: #### C BCA, CMP, THYR, 2131-12, 06725-4 #### [facility] ([id number]) [address], [address] [place] [address] ALP [Catalytic activity/Vol] 51 U/L Normal 39-130 [facility] Comment on above: Performed By: #### C BCA, CMP, THYR, 2131-12, 85175-1 #### [facility] ([id number]) [address], [address] [place] [address] ALT [Catalytic activity/Vol] 10 U/L Normal 0-31 [facility] Comment on above: Performed By: #### C BCA, CMP, THYR, 2131-12, 79003-4 #### [facility] ([id number]) [address], [address] [place] [address] Anion gap [Moles/Vol] 8 mmol/L Normal 5-15 [facility] Comment on above: Performed By: #### C BCA, CMP, THYR, 2131-12, 08314-7 #### [facility] ([id number]) [address], [address] [place] [address] AST [Catalytic activity/Vol] 17 U/L Normal 0-41 [facility] Comment on above: Performed By: #### C BCA, CMP, THYR, 2131-12, 28216-3 #### [facility] ([id number]) [address], [address] [place] [address] Bilirubin [Mass/Vol] 0.4 mg/dL Normal 0.3-1.2 [facility] Comment on above: Performed By: #### C BCA, CMP, THYR, 2131-12, 67102-1 #### [facility] ([id number]) [address], [address] [place] [address] Calcium [Mass/Vol] 8.8 mg/dL Normal 8.5-10.5 [facility] Comment on above: Performed By: #### C BCA, CMP, THYR, 2131-12, 00190-8 #### [facility] ([id number]) [address], [address] [place] [address] Chloride [Moles/Vol] 104 mmol/L Normal 98-109 [facility] Comment on above: Performed By: #### C BCA, CMP, THYR, 2131-12, 38364-0 #### [facility] ([id number]) [address], [address] [place] [address] CO2 [Moles/Vol] 28 mmol/L Normal 22-32 [facility] Comment on above: Performed By: #### C BCA, CMP, THYR, 2131-12, 75041-0 #### [facility] ([id number]) [address], [address] [place] [address] Creatinine [Mass/Vol] 0.93 mg/dL Normal 0.40-1.00 [facility] Comment on above: Result Comment: METH OD TRACEABLE TO IDMS STANDARD Performed By: #### C BCA, CMP, THYR, 2131-12, 30533-0 #### [facility] ([id number]) [address], [address] [place] [address] GFR/1.73 sq M.predicted among non-blacks MDRD (S/P/Bld) [Vol rate/Area] 64 mL/min/{1.73_m2} Normal >59 [facility] Comment on above: Result Comment: Reported eGFR is based on the CKD-EPI 2020 equation that does not use a race coefficient. Performed By: #### C BCA, CMP, THYR, 2131-12, 65000-0 #### [facility] ([id number]) [address] [address] [place] [address] Glucose [Mass/Vol] 87 mg/dL Normal 65-99 [facility] Comment on above: Performed By: #### C BCA, CMP, THYR, 2131-12, 41265-2 #### [facility] ([id number]) [address], [address] [place] [address] Potassium [Moles/Vol] 4.1 mmol/L Normal 3.5-5.0 [facility] Comment on above: Performed By: #### C BCA, CMP, THYR, 2131-12, 61609-9 #### [facility] ([id number]) [address] [address] [place] [address] Protein [Mass/Vol] 6.6 g/dL Normal 6.0-8.0 [facility] Comment on above: Performed By: #### C BCA, CMP, THYR, 2131-12, 30248-9 #### [facility] ([id number]) [address] [address] [place] [address] Sodium [Moles/Vol] 140 mmol/L Normal 134-146 [facility] Comment on above: Performed By: #### C BCA, CMP, THYR, 2131-12, 14674-3 #### [facility] ([id number]) [address], [address] [place] [address] Urea nitrogen [Mass/Vol] 20 mg/dL Normal 5-27 [facility] Comment on above: Performed By: #### C BCA, CMP, THYR, 2131-12, 62759-9 #### [facility] ([id number]) [address], [address] [place] [address] THYROID PROFILEon 05-19-2024 Free T4 [Mass/Vol] 0.95 ng/dL Normal 0.61-1.60 [facility] Comment on above: Performed By: #### C BCA, CMP, THYR, 2131-12, 11985-8 #### [facility] ([id number]) [address], [address] [place] [address] TSH 0.60 uIU/mL Normal 0.49-4.67 [facility] Comment on above: Performed By: #### C BCA, CMP, THYR, 2131-12, 04398-5 #### [facility] ([id number]) [address], [address] [place] [address] VITAMIN B12on 05-19-2024 Cobalamin (Vitamin B12) [Mass/Vol] 319 pg/mL Normal 180-914 [facility] Comment on above: Performed By: #### C BCA, CMP, THYR, 2131-12, 75512-9 #### [facility] ([id number]) [address] [place] [address] Vitamin D+Metabolites [Mass/ Vol]on 05-19-2024 VITAMIN D 25 HYD TOT 97.5 ng/mL Normal 30-100 [facility] Comment on above: Result Comment: Vitamin D status 25 [place] Vitamin D Deficiency <20 ng/mL Insufficiency 20-29 ng/mL Sufficiency 30-100 ng/mL Toxicity >100 ng/mL NOTE: A pediatric reference range has not been established by the field associate of this kit. The [place] recommends a Vitamin D level of = or >20ng/mL in infants and children. Performed By: #### C TANNER HARDY, THYR, 2132-9, 59054-7 #### [facility] ([id number]) [address], [address] [place] [address] ALBUMINon 02-05-2024 Albumin [Mass/Vol] 4.1 g/dL Normal 3.2-5.3 [facility] Comment on above: Performed By: #### 1 751-7, 51878-5, INTERPRETIVE PROGRAM COORDINATOR, 68131-3 #### [facility] ([id number]) [address], [address] [place] [address] CALCIUMon 02-05-2024 Calcium [Mass/Vol] 8.9 mg/dL Normal 8.5-10.5 [facility] Comment on above: Performed By: #### C TANNER HARDY, 3040-3 #### [facility] ([id number]) [address] [place] [address] CREATININEon 02-05-2024 Creatinine [Mass/Vol] 0.70 mg/dL Normal 0.40-1.00 [facility] Comment on above: Result Comment: METH OD TRACEABLE TO IDMS STANDARD Performed By: #### C TANNER HARDY, 3040-3 #### [facility] ([id number]) [address] [place] [address] GFR/1.73 sq M.predicted among non-blacks MDRD (S/P/Bld) [Vol rate/Area] 90 mL/min/{1.73_m2} Normal >59 [facility] Comment on above: Result Comment: Reported eGFR is based on the CKD-EPI 2020 equation that does not use a race coefficient. Performed By: #### C TANNER HARDY, 3040-3 #### [facility] ([id number]) [address] [place] [address] Vitamin D+Metabolites [Mass/ Vol]on 02-05-2024 VITAMIN D 25 HYD TOT 78.5 ng/mL Normal 30-[address] [facility] Comment on above: Result Comment: Vitamin D status 25 [place] Vitamin D Deficiency <20 ng/mL Insufficiency 20-29 ng/mL Sufficiency 30-100 ng/mL Toxicity >100 ng/mL NOTE: A pediatric reference range has not been established by the field associate of this kit. The [place] [employer] [employer] recommends a Vitamin D level of = or >20ng/mL in infants and children. Performed By: #### C HAYLEY, [facility], 3040-3 #### [facility] ([id number]) [address] [place] [address] XR Knee - left 1 or 2 Viewso n 01-08-2024 Imaging Result: AP and lateral views of left knee showed severe varus deformity with [id number] articulation to the medial joint line, flattening [...] joint disease left knee with varus deformity [facility] [employer] XR Knee - left 1 or 2 ViewsO rdered By: Jr. Mckeon on 01-08-2024 [facility] [employer] Work Phone: XR Knee - left 1 or 2 Viewso n 01-07-2024 Radiology Study observation (narrative) [facility] [employer] GI PANELon 12-26-2023 Gastrointestinal pathogens DNA and [...] SAPOVIRUS Not detected (qualifier value) Normal NDET [facility] Comment on above: Performed By: #### 8 2195-9 #### [facility] ([id number]) [address] [facility] [place] [place] [place] [address] [facility] ([id number]) [address] [place] [address], [address] [place] [address] MAMM SCREENING BILATERAL W C fruit picker 12-26-2023 MAMM SCREENING BILATERAL W CAD MAMM SCREENING BILATERAL W CAD RACH Diaz QUAINTANCE [id number] EXAM: MAMM SCREENING BILATERAL W CAD, 12/26/2023 [...] PM 1 c MAMM 1 YR Normal [facility] BASIC METABOLIC PANLon 12-24 Anion gap [Moles/Vol] 10 mmol/L Normal 5-15 [facility] Comment on above: Performed By: #### B KIMBERLY 2131-12 #### [facility] ([id number]) [address] [place] [address] Calcium [Mass/Vol] 8.8 mg/dL Normal 8.5-10.5 [facility] Comment on above: Performed By: #### Lm HARRIS, 2131-12 #### [facility] ([id number]) [address] [place] [address] Chloride [Moles/Vol] 105 mmol/L Normal 98-109 [facility] Comment on above: Performed By: #### Lm HARRIS, 2131-12 #### [facility] ([id number]) [address] [place] [address] CO2 [Moles/Vol] 26 mmol/L Normal 22-32 [facility] Comment on above: Performed By: #### Lm HARRIS, 2131-12 #### [facility] ([id number]) [address] [place] [address] Creatinine [Mass/Vol] 0.73 mg/dL Normal 0.40-1.00 [facility] Comment on above: Result Comment: METH OD TRACEABLE TO IDMS STANDARD Performed By: #### Lm HARRIS, 2131-12 #### [facility] ([id number]) [address] [place] [address] GFR/1.73 sq M.predicted among non-blacks MDRD (S/P/Bld) [Vol rate/Area] 85 mL/min/{1.73_m2} Normal >59 [facility] Comment on above: Result Comment: Reported eGFR is based on the CKD-EPI 2020 equation that does not use a race coefficient. Performed By: #### Lm HARRIS, 2131-12 #### [facility] ([id number]) [address], [address] [place] [address] Glucose [Mass/Vol] 92 mg/dL Normal 65-99 [facility] Comment on above: Performed By: #### Lm HARRIS, 2131-12 #### [facility] ([id number]) [address], [address] [place] [address] Potassium [Moles/Vol] 3.4 mmol/L Low 3.5-5.0 [facility] Comment on above: Performed By: #### Lm HARRIS, 2131-12 #### [facility] ([id number]) [address] [place] [address] Sodium [Moles/Vol] 141 mmol/L Normal 134-146 [facility] Comment on above: Performed By: #### Lm HARRIS, 2131-12 #### [facility] ([id number]) [address], [address] [place] [address] Urea nitrogen [Mass/Vol] 22 mg/dL Normal 5-27 [facility] Comment on above: Performed By: #### Lm HARRIS, 2131-12 #### [facility] ([id number]) [address] [place] [address] VITAMIN B12on 12-25-2023 Cobalamin (Vitamin B12) [Mass/Vol] pg/mL High 180-914 [facility] Comment on above: Performed By: #### Lm HARRIS, 2131-12 #### [facility] ([id number]) [address] [place] [address] CBC AND AUTO DIFFon 12-21-19 24 ABSOLUTE BASOPHIL 0.0 X10E9/L Normal 0.0-0.2 [facility] Comment on above: Performed By: #### C HAYLEY CMP, 3040-3 #### [facility] ([id number]) [address] [place] [address], [place] [address] ABSOLUTE NEUTROPHIL 7.4 X10E9/L High 1.5-6.6 [facility] Comment on above: Performed By: #### C HAYLEY CMP, 3039-3 #### [facility] ([id number]) [address] [place] [address] Basophils/100 WBC (Bld) 0.3 % Normal [facility] Comment on above: Performed By: #### Renee HARDY CMP, 3039-3 #### [facility] ([id number]) [address] [place] [address] Eosinophils (Bld) [#/Vol] 0.1 10*3/uL Normal 0.0-0.4 [facility] Comment on above: Performed By: #### Renee HARDY CMP, 3039-06 #### [facility] ([id number]) [address] [place] [address] Eosinophils/100 WBC (Bld) 0.7 % Normal [facility] Comment on above: Performed By: #### Renee HARDY [facility], 3 #### [facility] ([id number]) [address] [place] [address] Erythrocyte distribution width (RBC) [Ratio] 15.3 % High 11.5-15.0 [facility] Comment on above: Performed By: #### Renee HARDY [facility], 3039-06 #### [facility] ([id number]) [address] [place] [address] Hematocrit (Bld) [Volume fraction] 35.6 % Normal 35-47 [facility] Comment on above: Performed By: #### Renee HARDY [facility], 3 #### [facility] ([id number]) [address] [place] [address] Hemoglobin (Bld) [Mass/Vol] 11.8 g/dL Normal 11.7-15.5 [facility] Comment on above: Performed By: #### Renee HARDY CMP, 3039-3 #### [facility] ([id number]) [address] [place] [address] Lymphocytes (Bld) [#/Vol] 1.1 10*3/uL Normal 1.0-3.5 [facility] Comment on above: Performed By: #### Renee HARDY CMP, 3039-3 #### [facility] ([id number]) [address] [place] [address] Lymphocytes/100 WBC (Bld) 11.6 % Normal [facility] Comment on above: Performed By: #### Renee HARDY CMP, 3039-06 #### [facility] ([id number]) [address] [place] [address] MCH (RBC) [Entitic mass] 27.8 pg Normal 27-34 [facility] Comment on above: Performed By: #### Renee HARDY CMP, 3 #### [facility] ([id number]) [address] [place] [address] MCHC (RBC) [Mass/Vol] 33.1 g/dL Normal 32-36 [facility] Comment on above: Performed By: #### Renee HARDY [facility], 3039-06 #### [facility] ([id number]) [address] [place] [address] MCV (RBC) [Entitic vol] 84 fL Normal 80-100 [facility] Comment on above: Performed By: #### Renee HARDY CMP, 3039-06 #### [facility] ([id number]) [address] [place] [address] 09643 Monocytes (Bld) [#/Vol] 0.6 10*3/uL Normal 0-0.9 [facility] Comment on above: Performed By: #### Renee HARDY CMP, 3039-3 #### [facility] ([id number]) [address] [place] [address] 88174 Monocytes/100 WBC (Bld) 6.4 % Normal [facility] Comment on above: Performed By: #### Renee HARDY CMP, 3040-3 #### [facility] ([id number]) [address] [place] [address] 12472 Neutrophils/100 WBC (Bld) 81.0 % Normal [facility] Comment on above: Performed By: #### Renee HARDY CMP, 3039-3 #### [facility] ([id number]) [address] [place] [address] 45987 Platelet mean volume (Bld) [Entitic vol] 8.9 fL Normal 7-12 [facility] Comment on above: Performed By: #### Renee HARDY CMP, 3039-3 #### [facility] ([id number]) [address] [place] [address] 73214 Platelets (Bld) [#/Vol] 255 10*3/uL Normal 150-450 [facility] Comment on above: Performed By: #### Renee HARDY CMP, 3039-3 #### [facility] ([id number]) [address] [place] [address] 54697 RBC COUNT 4.24 X10E12/L Normal 3.80-5.20 [facility] Comment on above: Performed By: #### Renee HARDY CMP, 3039-3 #### [facility] ([id number]) [address] [place] [address] 94518 WBC (Bld) [#/Vol] 9.1 10*3/uL Normal 4.0-11.0 [facility] Comment on above: Performed By: #### Renee HARDY CMP, 3039-3 #### [facility] ([id number]) [address] [place] [address] 16041 COMPREHENSIVE METABOLIC PANE [place] 2023 Albumin [Mass/Vol] 4.2 g/dL Normal 3.2-5.3 [facility] Comment on above: Performed By: #### C BCA, CMP, 0-3 #### [facility] ([id number]) [address] [place] [address] 03526 ALP [Catalytic activity/Vol] 63 U/L Normal 39-130 [facility] Comment on above: Performed By: #### C BCA, CMP, 0-3 #### [facility] ([id number]) [address] [place] [address] 99643 ALT [Catalytic activity/Vol] 14 U/L Normal 0-31 [facility] Comment on above: Performed By: #### C BCA, CMP, 3039-3 #### [facility] ([id number]) [address] [place] [address] 04453 Anion gap [Moles/Vol] 7 mmol/L Normal 5-15 [facility] Comment on above: Performed By: #### C BCA, CMP, 3039-3 #### [facility] ([id number]) [address] [place] [address] 76285 AST [Catalytic activity/Vol] 20 U/L Normal 0-41 [facility] Comment on above: Performed By: #### C BCA, CMP, 3039-3 #### [facility] ([id number]) [address] [place] [address] 22152 Bilirubin [Mass/Vol] 0.5 mg/dL Normal 0.3-1.2 [facility] Comment on above: Performed By: #### C BCA, CMP, 3039-3 #### [facility] ([id number]) [address] [place] [address] 70565 Calcium [Mass/Vol] 8.5 mg/dL Normal 8.5-10.5 [facility] Comment on above: Performed By: #### C BCA, CMP, 0-3 #### [facility] ([id number]) [address] [place] [address] 98991 Chloride [Moles/Vol] 105 mmol/L Normal 98-109 [facility] Comment on above: Performed By: #### C HAYLEY [facility], 3040-3 #### [facility] ([id number]) [address] [place] [address] 33513 CO2 [Moles/Vol] 22 mmol/L Normal 22-32 [facility] Comment on above: Performed By: #### C [facility], 3039-3 #### [facility] ([id number]) [address] [place] [address] 59903 Creatinine [Mass/Vol] 0.64 mg/dL Normal 0.40-1.00 [facility] Comment on above: Result Comment: METH OD TRACEABLE TO IDMS STANDARD Performed By: #### C TANNER HARDY, 3039-3 #### [facility] ([id number]) [address] [place] [address] 04678 eGFR (CKD-EPI) NON-RACE DEPENDENT >90 Normal >59 [facility] Comment on above: Result Comment: Reported eGFR is based on the CKD-EPI 2020 equation that does not use a race coefficient. Performed By: #### C TANNER HARDY, 0-3 #### [facility] ([id number]) [address] [place] [address] 86066 Glucose [Mass/Vol] 123 mg/dL High 65-99 [facility] Comment on above: Performed By: #### C TANNER HARDY, 3039-3 #### [facility] ([id number]) [address] [place] [address] 19280 Potassium [Moles/Vol] 3.8 mmol/L Normal 3.5-5.0 [facility] Comment on above: Performed By: #### C TANNER HARDY, 3039-3 #### [facility] ([id number]) [address] [place] [address], [place] [address] Protein [Mass/Vol] 7.3 g/dL Normal 6.0-8.0 [facility] Comment on above: Performed By: #### C HAYLEY [facility], 3040-3 #### [facility] ([id number]) [address] [place] [address] 82899 Sodium [Moles/Vol] 134 mmol/L Normal 134-146 [facility] Comment on above: Performed By: #### C HAYLEY [facility], 3040-3 #### [facility] ([id number]) [address] [place] [address] 45549 Urea nitrogen [Mass/Vol] 18 mg/dL Normal 5-27 [facility] Comment on above: Performed By: #### C HAYLEY [facility], 3040-3 #### [facility] ([id number]) [address] [place] [address] 70676 LIPASEon 2023 Lipase [Catalytic activity/Vol] 26 U/L Normal 17-40 [facility] Comment on above: Performed By: #### Renee HARDY [facility], 3040-3 #### [facility] ([id number]) [address] [place] [address] 63755 SARS/FLU A+B/RSV by NAAT/Mol ecularon 2023 SARS/FLU [...] operators who are performing tests using either [employer] DX or [employer] Infinity systems and is limited to laboratories [...] repeat. Fact Sheet for Healthcare Providers: https://www.fda.gov/me yg/426723/download Fact Sheet for Patients: https://www.fda.gov/me yg/333203/download Normal [facility] Comment on above: Performed By: #### C OVFLR #### [facility] ([id number]) [address] [place] [address] 74572 URN MACROSCOPIC NURon 2023 BILIRUBIN STUART Negative Normal NEG [facility] Comment on above: Performed By: #### N UM #### [facility] ([id number]) [address] [place] [address] 08922 BLOOD/HGB STUART Small Abnormal NEG [facility] Comment on above: Performed By: #### N UM #### [facility] ([id number]) [address] [place] [address] 74376 GLUCOSE STUART Negative Normal NEG [facility] Comment on above: Performed By: #### N UM #### [facility] ([id number]) [address] [place] [address] 29158 KETONES STUART Trace Abnormal NEG [facility] Comment on above: Performed By: #### N UM #### [facility] ([id number]) [address] [place] [address] 98069 LEUKOCYTE ESTERASE STUART Trace Abnormal NEG [facility] Comment on above: Performed By: #### N UM #### [facility] ([id number]) [address] [place] [address] 91594 NITRITE STUART Negative Normal NEG [facility] Comment on above: Performed By: #### N UM #### [facility] ([id number]) [address] [place] [address] 51218 PH STUART 5.5 Normal 5.0-8.5 [facility] Comment on above: Performed By: #### N UM #### [facility] ([id number]) [address] [place] [address] 53295 PROTEIN STUART Negative Normal NEG [facility] Comment on above: Performed By: #### N UM #### [facility] ([id number]) [address] [place] [address] 18353 SPECIFIC GRAVITY STUART 1.015 Normal 1.003-1.035 [facility] Comment on above: Performed By: #### N UM #### [facility] ([id number]) [address] [place] [address] [place] [address] UROBILINOGEN STUART 0.2 eu/dL Normal <1.1 [facility] Comment on above: Performed By: #### N UM #### [facility] ([id number]) [address] [place] [address] 49385 $ Arthrocentesison 4 Sangeetha Quick DO 07/25/2023 [...] signs reviewed and stable MANUALLY TRANSCRIBED RESULTS [facility] Comprehensive metabolic pane ulices 05-30-2023 Albumin [Mass/Vol] 4.3 g/dL 3.2 - 5.3 g/dL [facility] ALP [Catalytic activity/Vol] 63 U/L 39 - 130 U/L [facility] ALT No additional P-5'-P [Catalytic activity/Vol] 15 U/L 0 - 31 U/L [facility] Anion gap [Moles/Vol] 6 mmol/L 5 - 15 mmol/L [facility] AST [Catalytic activity/Vol] 15 U/L 0 - 41 U/L [facility] Bilirubin [Mass/Vol] 0.3 mg/dL 0.3 - 1 .2 mg/dL [facility] Calcium [Mass/Vol] 9.1 mg/dL 8.5 - 10. 5 mg/dL [facility] Chloride [Moles/Vol] 105 mmol/L 98 - 10 9 mmol/L [facility] CO2 [Moles/Vol] 31 mmol/L 22 - 32 mmol/L [facility] Creatinine [Mass/Vol] 0.65 mg/dL 0.40 - 1.00 mg/dL [facility] Comment on above: METHOD TRACEABLE TO [facility] STANDARD eGFR (CKD-EPI)non-race dependent - PINF [facility] Comment on above: Reported eGFR is based on the CKD-EPI 2020 equation that does not use a race coefficient. Glucose [Mass/Vol] 101 mg/dL High 65 - 99 mg/dL [facility] Potassium [Moles/Vol] 4.4 mmol/L 3.5 - 5.0 mmol/L [facility] Protein [Mass/Vol] 6.9 g/dL 6.0 - 8.0 g/dL [facility] Sodium [Moles/Vol] 142 mmol/L 134 - 146 mmol/L [facility] Urea nitrogen [Mass/Vol] 18 mg/dL 5 - 27 mg/dL [facility] Lipid 1996 panelon 4 Cholesterol [Mass/Vol] 140 mg/dL Low 150 - 200 mg/dL [facility] Cholesterol in HDL [Mass/Vol] 55 mg/dL 39 - PINF mg/dL [facility] Comment on above: HDL <40 mg/dL - High Risk HDL > or = 40mg/dL- Desirable HDL >60 mg/dL - Negative Risk Cholesterol in LDL [Mass/Vol] 69 mg/dL NINF - 130 mg/dL [facility] Comment on above: LDL <100 mg/dL - Desirable LDL >160 mg/dL - High Risk Cholesterol in VLDL [Mass/Vol] 16 mg/dL 0 - 30 mg/dL [facility] Cholesterol.total/Ch olesterol in HDL [Mass ratio] 2.5 {ratio} 1.0 - 5.0 [facility] Triglyceride [Mass/Vol] 82 mg/dL 27 - 150 mg/dL [facility] No Panel Informationon 05-30 Interpretation and review of laboratory results Abnormal [facility] Thyroid profile includes TSH FT4on 05-30-2023 Free T4 [Mass/Vol] 0.92 ng/dL 0.61 - 1. 60 ng/dL [facility] TSH Qn 0.95 m[IU]/L [facility] MRI [...] DL ADRIANTODD Date: 2022-05-18 09:45 Normal [facility] COMPREHENSIVE METABOLIC PANE [facility] 08-29-2021 Albumin [Mass/Vol] 4.0 g/dL Normal 3.6-5.1 [facility] Comment on above: Performed By: #### 7 600, 927, 36631 #### [facility] [place] [address] [employer] Press[employer]: Finn Akins MD Albumin/Globulin [Mass ratio] 1.9 {ratio} Normal 1.0-2.5 [facility] Comment on above: Performed By: #### 7 600, 927, 42624 #### [facility] [place] [address] [employer]: Finn Akins MD ALP [Catalytic activity/Vol] 56 U/L Normal 37-153 [facility] Comment on above: Performed By: #### 7 600, 927, 78239 #### [facility] [place] [address] [employer]: Finn Akins MD ALT [Catalytic activity/Vol] 18 U/L Normal 6-29 [facility] Comment on above: Performed By: #### 7 600, 927, 72704 #### [facility] [place] [address] [employer]: Finn Akins MD AST [Catalytic activity/Vol] 18 U/L Normal 10-35 [facility] Comment on above: Performed By: #### 7 600, 927, 02150 #### [facility] [place] [address] [employer]: Finn Akins MD Bilirubin [Mass/Vol] 0.4 mg/dL Normal 0.2-1.2 [facility] Comment on above: Performed By: #### 7 600, 927, 33380 #### [facility] [place] [address] [employer]: Finn Akins MD BUN/CREATININE RATIO NOT APPLICABLE Normal 6-22 [facility] Comment on above: Performed By: #### 7 600, 927, 37389 #### [facility] [address], [address] [place] [address] [employer]: Finn Akins MD Calcium [Mass/Vol] 8.8 mg/dL Normal 8.6-10.4 [facility] Comment on above: Performed By: #### 7 600, 927, 43266 #### [facility] [address], [address] [place] [address] [employer]: Finn Akins MD Chloride [Moles/Vol] 106 mmol/L Normal 98-110 [facility] Comment on above: Performed By: #### 7 600, 927, 07325 #### [facility] [address], [address] [place] [address] [employer]: Finn Akins MD CO2 [Moles/Vol] 30 mmol/L Normal 20-32 [facility] Comment on above: Performed By: #### 7 600, 927, 90111 #### [facility] [address], [address] [place] [address] [employer]: Finn Akins MD Creatinine [Mass/Vol] 0.67 mg/dL Normal 0.60-0.93 [facility] Comment on above: Result Comment: For patients >49 years of age, the reference limit for Creatinine is approximately 13% higher for people identified as -[place] Island[place]. Performed By: #### 7 600, 927, 88083 #### [facility] [address], [address] [place] [address] [employer]: Finn Akins MD eGFR NON-AFR. SLOVENIAN 87 mL/min/1.73m2 Normal > OR = 60 [facility] Comment on above: Performed By: #### 7 600, 927, 45025 #### [facility] [address], [address] [place] [address] [employer]: Finn Akins MD GFR/1.73 sq M.predicted among blacks MDRD (S/P/Bld) [Vol rate/Area] 101 mL/min/{1.73_m2} Normal > OR = 60 [facility] Comment on above: Performed By: #### 7 600, 927, 20055 #### [facility] [place] [address] [employer]: Finn Akins MD Globulin (S) [Mass/Vol] 2.1 g/dL Normal 1.9-3.7 [facility] Comment on above: Performed By: #### 7 600, 927, 75174 #### [facility] [place] [address] [employer]: Finn Akins MD Glucose [Mass/Vol] 96 mg/dL Normal 65-99 [facility] Comment on above: Result Comment: Fasting reference interval Performed By: #### 7 600, 927, 22564 #### [facility] [place] [address] [employer]: Finn Akins MD Potassium [Moles/Vol] 3.9 mmol/L Normal 3.5-5.3 [facility] Comment on above: Performed By: #### 7 600, 927, 02725 #### [facility] [place] [address] [employer]: Finn Akins MD Protein [Mass/Vol] 6.1 g/dL Normal 6.1-8.1 [facility] Comment on above: Performed By: #### 7 600, 927, 70662 #### [facility] [place] [address] [employer]: Finn Akins MD Sodium [Moles/Vol] 143 mmol/L Normal 135-146 [facility] Comment on above: Performed By: #### 7 600, 927, 04631 #### [facility] [place] [address] [employer]: Finn Akins MD Urea nitrogen [Mass/Vol] 17 mg/dL Normal 7-25 [facility] Comment on above: Performed By: #### 7 600, 927, 27243 #### [facility] [address], [address] [place] [address] [employer]: Finn Akins MD LIPID PANEL, [address] Cholesterol [Mass/Vol] 126 mg/dL Normal <200 [facility] Comment on above: Order Comment: FASTI NG:YES FASTING: YES Performed By: #### 7 600, 927, 37269 #### [facility] [address], [address] [place] [address] [employer]: Finn Akins MD Cholesterol in HDL [Mass/Vol] 46 mg/dL Low > OR = 50 [facility] Comment on above: Order Comment: FASTI NG:YES FASTING: YES Performed By: #### 7 600, 927, 15909 #### [facility] [address], [address] [place] [address] [employer]: Finn Akins MD Cholesterol in LDL [Mass/Vol] [...] LDL-C. Aguilar HOLCOMB et al. MCKAY. 2013;310(19): 2368-0478 (http://education.[employer].Deligic/faq/SJI300) Performed By: #### 7 600, 927, 52372 #### [facility] [address], [address] [place] [address] [employer]: Finn Akins MD Cholesterol.total/Ch olesterol in HDL [Mass ratio] 2.7 {ratio} Normal <5.0 [facility] Comment on above: Order Comment: FASTI NG:YES FASTING: YES Performed By: #### 7 600, 927, 35183 #### [facility] [address], [address] [place] [address] [employer]: Finn Akins MD NON HDL CHOLESTEROL 80 mg/dL (calc) Normal <130 [facility] Comment on above: Order Comment: FASTI NG:YES FASTING: YES Result Comment: For patients with diabetes plus 1 major ASCVD risk factor, treating to a non-HDL-C goal of <100 mg/dL (LDL-C of <70 mg/dL) is considered a therapeutic option. Performed By: #### 7 600, 927, 71516 #### [facility] [place] [address] [employer]: Finn Akins MD Triglyceride [Mass/Vol] 86 mg/dL Normal <150 [facility] Comment on above: Order Comment: FASTI NG:YES FASTING: YES Performed By: #### 7 600, 927, 95277 #### [facility] [place] [address] [employer]: Finn Akins MD VITAMIN B12on 08-29-2021 Cobalamin (Vitamin B12) [Mass/Vol] 184 pg/mL Low 200-1100 [facility] Comment on above: Performed By: #### 7 600, 927, 83066 #### [facility] [place] [address] [employer]: Finn Akins MD BASIC METABOLIC PANELon Calcium [Mass/Vol] 9.2 mg/dL Normal 8.6-10.4 [facility] Comment on above: Performed By: #### 9 27, 19138, 20553 #### [facility] [place] [address] [employer]: Finn Akins MD Chloride [Moles/Vol] 102 mmol/L Normal 98-110 [facility] Comment on above: Performed By: #### 9 27, 01266, 35374 #### [facility] [place] [id number] [employer]: Finn Akins MD CO2 [Moles/Vol] 28 mmol/L Normal 20-32 [facility] Comment on above: Performed By: #### 9 , 51674, 09919 #### [facility] [place] [address] [employer]: Finn Akins MD Creatinine [Mass/Vol] 0.56 mg/dL Low 0.60-0.93 [facility] Comment on above: Result Comment: For patients >49 years of age, the reference limit for Creatinine is approximately 13% higher for people identified as -[place]. Performed By: #### 9 , 41414, 38384 #### [facility] [place] [address] [employer]: Finn Akins MD eGFR NON-AFR. SLOVENIAN 93 mL/min/1.73m2 Normal > OR = 60 [facility] Comment on above: Performed By: #### 9 , 91830, 36289 #### [facility] [place] [address] [employer]: Finn Akins MD GFR/1.73 sq M.predicted among blacks MDRD (S/P/Bld) [Vol rate/Area] 107 mL/min/{1.73_m2} Normal > OR = 60 [facility] Comment on above: Performed By: #### 9 , 45638, 07792 #### [facility] [place] [address] [employer]: Finn Akins MD Glucose [Mass/Vol] 97 mg/dL Normal 65-99 [facility] Comment on above: Result Comment: Fasting reference interval Performed By: #### 9 , 88099, 37546 #### [facility] [place] [address] [employer]: Finn Akins MD Potassium [Moles/Vol] 3.8 mmol/L Normal 3.5-5.3 [facility] Comment on above: Performed By: #### 9 , 02037, 52025 #### [facility] of [address], [address] [place] [address] [employer]: Finn Akins MD Sodium [Moles/Vol] 140 mmol/L Normal 135-146 [facility] Comment on above: Performed By: #### 9 , 12181, 57962 #### [facility] [place] [address] [employer]: Finn Akins MD Urea nitrogen [Mass/Vol] 14 mg/dL Normal 7-25 [facility] Comment on above: Performed By: #### 9 , 95903, 06209 #### [facility] [place] [address] [employer]: Finn Akins MD Urea nitrogen/Creatinine [Mass ratio] 25 mg/mg High 6-22 [facility] Comment on above: Performed By: #### 9 , 05604, 65799 #### [facility] [place] [address] [employer]: Finn Akins MD TSH+FREE T4on 04-19-2021 Free T4 [Mass/Vol] 1.2 ng/dL Normal 0.8-1.8 [facility] Comment on above: Performed By: #### 9 , 62844, 24565 #### [facility] [place] [address] [employer]: Finn Akins MD TSH Qn 0.55 m[IU]/L Normal 0.40-4.50 [facility] Comment on above: Performed By: #### 9 , 10590, 85114 #### [facility] [place] [address] [employer]: Finn Akins MD VITAMIN B12on 04-19-2021 Cobalamin (Vitamin B12) [Mass/Vol] 133 pg/mL Low 200-1100 [facility] Comment on above: Performed By: #### 9 , 81762, 60845 #### [facility] [address], [address] [place] [address] [employer]: Finn Akins MD Vital Signs Date Time Vital Sign Value Performing Clinician Facility 11-02-2024 16:15-0400 Body height 149.9 cm Sangeetha Quick DO Work Phone: [facility] [facility] 11-02-2024 16:15-0400 Body mass index (BMI) [Ratio] 29.84 kg/m2 Sangeetha Quick DO Work Phone: [facility] 11-02-2024 16:15-0400 Body temperature 98.2 [degF] Sangeetha Dunbars DO Work Phone: [facility] 11-02-2024 16:15-0400 Body weight 67.04 kg Sangeetha Quick DO Work Phone: [facility] 11-02-2024 16:15-0400 Diastolic blood pressure 82 mm[Hg] Sangeetha Quick DO Work Phone: [facility] 11-02-2024 16:15-0400 Heart rate 63 /min Sangeetha Dunbars DO Work Phone: [facility] 11-02-2024 16:15-0400 Respiratory rate 18 /min Sangeetha Quick DO Work Phone: [facility] 11-02-2024 16:15-0400 SaO2% (BldA) [Mass fraction] 99 % Sangeetha Quick DO Work Phone: [facility] 11-02-2024 16:15-0400 Systolic blood pressure 142 mm[Hg] Sangeetha Dunbars DO Work Phone: [facility] 08-18-2024 15:11-0400 Body height 149.9 cm Sangeetha Dunbars DO Work Phone: [facility] 08-18-2024 15:11-0400 Body mass index (BMI) [Ratio] 31.05 kg/m2 Sangeetha Yuhas DO Work Phone: [facility] 08-18-2024 15:11-0400 Body temperature 97.81 [degF] Sangeetha Dunbars DO Work Phone: [facility] 08-18-2024 15:11-0400 Body weight 69.76 kg Sangeetha Dunbras DO Work Phone: [facility] 08-18-2024 15:11-0400 Diastolic blood pressure 80 mm[Hg] Sangeetha Dunbars DO Work Phone: [facility] 08-18-2024 15:11-0400 Heart rate 78 /min Sangeetha Dunbars DO Work Phone: [facility] 08-18-2024 15:11-0400 Respiratory rate 20 /min Sangeetha Quick DO Work Phone: [facility] 08-18-2024 15:11-0400 SaO2% (BldA) [Mass fraction] 100 % Sangeetha Quick DO Work Phone: [facility] 08-18-2024 15:11-0400 Systolic blood pressure 140 mm[Hg] Sangeetha Dunbars DO Work Phone: [facility] 05-19-2024 14:32-0500 Body height 149.9 cm Sangeetha Dunbars DO Work Phone: [facility] 05-19-2024 14:32-0500 Body mass index (BMI) [Ratio] 30.13 kg/m2 Sangeetha Dunbars DO Work Phone: [facility] 05-19-2024 14:32-0500 Body temperature 98.49 [degF] Sangeetha Dunbars DO Work Phone: [facility] 05-19-2024 14:32-0500 Body weight 67.68 kg Sangeetha Dunbars DO Work Phone: [facility] 05-19-2024 14:32-0500 Diastolic blood pressure 78 mm[Hg] Sangeetha Yuhas DO Work Phone: [facility] 05-19-2024 14:32-0500 Heart rate 79 /min Sangeetha Quick DO Work Phone: [facility] 05-19-2024 14:32-0500 SaO2% (BldA) [Mass fraction] 97 % Sangeetha Quick DO Work Phone: [facility] 05-19-2024 14:32-0500 Systolic blood pressure 110 mm[Hg] Sangeetha Quick DO Work Phone: [facility] 02-27-2024 13:55-0500 Body height 149.9 cm Sangeetha Quick DO Work Phone: [facility] 02-27-2024 13:55-0500 Body mass index (BMI) [Ratio] 29.49 kg/m2 Sangeetha Quick DO Work Phone: [facility] 02-27-2024 13:55-0500 Body weight 66.22 kg Sangeetha Quick DO Work Phone: [facility] 02-27-2024 13:55-0500 Diastolic blood pressure 56 mm[Hg] Sangeetha Quick DO Work Phone: [facility] 02-27-2024 13:55-0500 Systolic blood pressure 107 mm[Hg] Sangeetha Quick DO Work Phone: [facility] 02-06-2024 14:17-0400 Body height 149.9 cm Pfo 4 [facility] 02-06-2024 14:17-0400 Body mass index (BMI) [Ratio] 29.63 kg/m2 Pfo 4 [facility] 02-06-2024 14:17-0400 Body temperature 98.2 [degF] Pfo 4 [facility] 02-06-2024 14:17-0400 Body weight 66.59 kg Pfo 4 [facility] 02-06-2024 14:17-0400 Diastolic blood pressure 56 mm[Hg] Pfo 4 [facility] 02-06-2024 14:17-0400 Heart rate 79 /min Pfo 4 [facility] 02-06-2024 14:17-0400 Respiratory rate 16 /min Pfo 4 [facility] 02-06-2024 14:17-0400 SaO2% (BldA) [Mass fraction] 99 % Pfo 4 [facility] 02-06-2024 14:17-0400 Systolic blood pressure 107 mm[Hg] Pfo 4 [facility] 01-20-2024 11:57-0400 Body height 149.9 cm Sangeetha Dunbars DO Work Phone: [facility] 01-20-2024 11:57-0400 Body mass index (BMI) [Ratio] 28.92 kg/m2 Sangeetha Jiménezhas DO Work Phone: [facility] 01-20-2024 11:57-0400 Body temperature 97.3 [degF] Sangeetha Dunbars DO Work Phone: [facility] 01-20-2024 11:57-0400 Body weight 64.95 kg Sangeetha Jiménezhas DO Work Phone: [facility] 01-20-2024 11:57-0400 Diastolic blood pressure 80 mm[Hg] Sangeetha Jiménezhas DO Work Phone: [facility] 01-20-2024 11:57-0400 Heart rate 65 /min Sangeetha Jiménezhas DO Work Phone: [facility] 01-20-2024 11:57-0400 Respiratory rate 18 /min Sangeetha Jiménezhas DO Work Phone: [facility] 01-20-2024 11:57-0400 SaO2% (BldA) [Mass fraction] 100 % Sangeetha Jiménezhas DO Work Phone: [facility] 01-20-2024 11:57-0400 Systolic blood pressure 150 mm[Hg] Sangeetha Jessyhas DO Work Phone: [facility] 12-24-2023 12:43-0400 Body height 149.9 cm Sangeetha Dunbars DO Work Phone: [facility] 12-24-2023 12:43-0400 Body mass index (BMI) [Ratio] 27.91 kg/m2 Sangeetha Dunbars DO Work Phone: [facility] 12-24-2023 12:43-0400 Body temperature 98.6 [degF] Sangeetha Dunbars DO Work Phone: [facility] 12-24-2023 12:43-0400 Body weight 62.69 kg Sangeetha Dunbars DO Work Phone: [facility] 12-24-2023 12:43-0400 Diastolic blood pressure 70 mm[Hg] Sangeetha Dunbars DO Work Phone: [facility] 12-24-2023 12:43-0400 Heart rate 83 /min Sangeetha Dunbars DO Work Phone: [facility] 12-24-2023 12:43-0400 SaO2% (BldA) [Mass fraction] 99 % Sangeetha Dunbars DO Work Phone: [facility] 12-24-2023 12:43-0400 Systolic blood pressure 120 mm[Hg] Sangeetha Dunbars DO Work Phone: [facility] 07-25-2023 10:52-0400 Body height 149.9 cm Sangeetha Dunbars DO Work Phone: [facility] 07-25-2023 10:52-0400 Body mass index (BMI) [Ratio] 30.98 kg/m2 Sangeetha Dunbars DO Work Phone: [facility] 07-25-2023 10:52-0400 Body temperature 99 [degF] Sangeetha Dunbars DO Work Phone: [facility] [employer] [facility] 07-25-2023 10:52-0400 Body weight 69.58 kg Sangeetha Dunbars DO Work Phone: [facility] [employer] [facility] 07-25-2023 10:52-0400 Diastolic blood pressure 72 mm[Hg] Sangeetha Dunbars DO Work Phone: [facility] [employer] [facility] 07-25-2023 10:52-0400 Heart rate 68 /min Sangeetha Dunbars DO Work Phone: [facility] [employer] [facility] 07-25-2023 10:52-0400 SaO2% (BldA) [Mass fraction] 98 % Sangeetha Dunbars DO Work Phone: [facility] [employer] [facility] 07-25-2023 10:52-0400 Systolic blood pressure 118 mm[Hg] Sangeetha Dunbars DO Work Phone: [facility] 07-01-2023 15:40-0400 Body height 149.9 cm Sangeetha Dunbars DO Work Phone: [facility] [employer] [facility] 07-01-2023 15:40-0400 Body mass index (BMI) [Ratio] 31.1 kg/m2 Sangeetha Dunbars DO Work Phone: [facility] [employer] [facility] 07-01-2023 15:40-0400 Body temperature 98.2 [degF] Sangeetha Dunbars DO Work Phone: [facility] [employer] [facility] 07-01-2023 15:40-0400 Body weight 69.85 kg Sangeetha Dunbars DO Work Phone: [facility] [employer] [facility] 07-01-2023 15:40-0400 Diastolic blood pressure 70 mm[Hg] Sangeetha Dunbars DO Work Phone: [facility] [employer] [facility] 07-01-2023 15:40-0400 Heart rate 87 /min Sangeetha Dunbars DO Work Phone: [facility] [employer] [facility] 07-01-2023 15:40-0400 SaO2% (BldA) [Mass fraction] 99 % Sangeetha Dunbars DO Work Phone: [facility] [employer] [facility] 07-01-2023 15:40-0400 Systolic blood pressure 136 mm[Hg] Sangeetha Quick DO Work Phone: [facility] 06-25-2023 11:23-0400 Body height 149.9 cm Sangeetha Quick DO Work Phone: [facility] 06-25-2023 11:23-0400 Body mass index (BMI) [Ratio] 31.06 kg/m2 Sangeetha Quick DO Work Phone: [facility] 06-25-2023 11:23-0400 Body temperature 98.29 [degF] Sangeetha Quick DO Work Phone: [facility] [employer] [facility] 06-25-2023 11:23-0400 Body weight 69.76 kg Sangeetha Quick DO Work Phone: [facility] [employer] [facility] 06-25-2023 11:23-0400 Diastolic blood pressure 70 mm[Hg] Sangeetha Quick DO Work Phone: [facility] 06-25-2023 11:23-0400 Heart rate 73 /min Sangeetha Quick DO Work Phone: [facility] [employer] [facility] 06-25-2023 11:23-0400 SaO2% (BldA) [Mass fraction] 97 % Sangeetha Quick DO Work Phone: [facility] [employer] [facility] 06-25-2023 11:23-0400 Systolic blood pressure 120 mm[Hg] Sangeetha Quick DO Work Phone: [facility] 05-30-2023 10:29-0500 Body height 149.9 cm Sangeetha Quick DO Work Phone: [facility] [employer] [facility] 05-30-2023 10:29-0500 Body mass index (BMI) [Ratio] 30.7 kg/m2 Sangeetha Quick DO Work Phone: [facility] [employer] [facility] 05-30-2023 10:29-0500 Body temperature 98.1 [degF] Sangeetha Quick DO Work Phone: [facility] 05-30-2023 10:29-0500 Body weight 68.95 kg Sangeetha Quick DO Work Phone: [facility] [employer] [facility] 05-30-2023 10:29-0500 Diastolic blood pressure 70 mm[Hg] Sangeetha Quick DO Work Phone: [facility] [employer] [facility] 05-30-2023 10:29-0500 Heart rate 71 /min Sangeetha Quick DO Work Phone: [facility] 05-30-2023 10:29-0500 SaO2% (BldA) [Mass fraction] 96 % Sangeetha Quick DO Work Phone: [facility] 05-30-2023 10:29-0500 Systolic blood pressure 120 mm[Hg] Sagneetha Quick DO Work Phone: [facility] Encounters Encounter Date Encounter Type Care Provider Facility Start: 12-08-2024 End: 12-08-2024 Refill Sangeetha Quick DO Work Phone: [facility] Comment on above: Hyperlipidemia, unsp ecified Start: 12-07-2024 End: 12-07-2024 ambulatory Delmer You MD Facility:[facility] Start: 11-18-2024 End: 11-18-2024 Refill Sangeetha Quick DO Work Phone: [facility] Comment on above: Cobalamin deficiency Start: 11-05-2024 End: 11-11-2024 Telephone encounter Salena Gandhi CMA [facility] Start: 11-03-2024 End: 11-03-2024 ambulatory [facility] Alek JIMÉNEZPrashanth [facility] Start: 11-02-2024 End: 11-02-2024 Office outpatient visit 25 minutes Sangeetha Quick DO Work Phone: [facility] Comment on above: Gastroenteritis due to norovirus (Primary Dx); Degenerative lumbar spinal stenosis; Hiatal hernia; Lichen planus atrophicus Start: 11-02-2024 End: 11-02-2024 ambulatory SANGEETHA Gaston [facility] Start: 10-26-2024 End: 12-26-2024 Follow-up encounter Libia Flores RN [facility] - Emergency Comment on above: GI Panel(stool patho gen panel) Start: 10-26-2024 End: 10-26-2024 Telephone encounter Marcia Holder CMA [facility] Comment on above: Er Follow-up Start: 10-23-2024 End: 10-23-2024 Emergency department patient visit SANGEETHA Gaston [facility] Start: 10-21-2024 End: 10-21-2024 Bamboo flowsheet Jr. Angella Campos Stepanic DO Work Phone: [facility] Start: 10-21-2024 End: 10-21-2024 Bamboo flowsheet Jr. Angella Campos Stepanic DO Work Phone: [facility] Start: 10-21-2024 End: 10-21-2024 Office outpatient visit 25 minutes JrTran Campos Stepanthony DO Work Phone: [facility] Comment on above: Acute pain of right shoulder (Primary Dx); Rotator cuff arthropathy, right Start: 10-21-2024 End: 10-21-2024 ambulatory ANGELLA PASTRANA Not Available Start: 09-09-2024 End: 09-09-2024 Bamboo flowsheet JrTran Campos Stepanic DO Work Phone: [facility] Start: 09-09-2024 End: 09-09-2024 Bamboo flowsheet JrTran Campos Stepanic DO Work Phone: [facility] Start: 09-09-2024 End: 09-09-2024 Office outpatient visit 25 minutes Jr. Angella Campos Stepanic DO Work Phone: [facility] Comment on above: Acute pain of right shoulder (Primary Dx); Nontraumatic complete tear of right rotator cuff Start: 09-09-2024 End: 09-09-2024 ambulatory ANGELLA PASTRANA Not Available Start: 08-30-2024 End: 08-30-2024 Refill Sangeetha Quick DO Work Phone: [facility] Comment on above: Hypothyroidism Start: 08-18-2024 End: 08-18-2024 Office outpatient visit 25 minutes [facility]etha Quick DO [facility] Comment on above: Hyperlipidemia, unsp ecified hyperlipidemia type (Primary Dx); Hypothyroidism, unspecified type; Elevated blood pressure reading; Cobalamin deficiency Start: 08-18-2024 End: 08-18-2024 ambulatory [facility] Start: 08-18-2024 End: 08-18-2024 [facility] Start: 07-13-2024 End: 07-13-2024 ambulatory Delmer You MD Facility:[facility] Start: 06-09-2024 End: 06-09-2024 Refill Sangeetha Quick DO Work Phone: [facility] Comment on above: Hyperlipidemia, unsp ecified Start: 05-22-2024 End: 05-22-2024 [facility] Start: 05-19-2024 End: 05-19-2024 [facility] Start: 05-19-2024 End: 05-19-2024 Office outpatient visit 25 minutes Sangeetha Quick DO Work Phone: [facility] Comment on above: Hypothyroidism, unsp ecified type (Primary Dx); Right foot pain; Vitamin D deficiency; Cobalamin deficiency; Lichen planus atrophicus Start: 05-19-2024 End: 05-19-2024 ambulatory [facility] Start: 02-27-2024 End: 02-27-2024 ambulatory [facility] Start: 02-27-2024 End: 02-27-2024 Patient encounter procedure Sangeetha Quick DO Work Phone: [facility] Comment on above: Encounter for subseq uent annual wellness visit (AWV) in Medicare patient (Primary Dx) Start: 02-25-2024 End: 02-25-2024 Refill Sangeetha Quick DO Work Phone: [facility] Comment on above: Hypothyroidism; Deficiency of other specified B group vitamins; Vitamin D deficiency, unspecified; Hordeolum externum of right upper eyelid Start: 02-06-2024 End: 02-06-2024 ambulatory [facility] 4 Alicia Kim [facility] Comment on above: Age-related osteopor osis without current pathological fracture (Primary Dx) Start: 02-05-2024 End: 02-05-2024 ambulatory [facility] Start: 02-03-2024 End: 02-03-2024 Telephone encounter Fatoumata Chacko [facility] Start: 01-22-2024 End: 01-22-2024 Telephone encounter Sangeetha Alek Jessyromulo DO Work Phone: [facility] Start: 01-20-2024 End: 01-20-2024 Tyrone Mckeon DO Work Phone: [facility] Start: 01-20-2024 End: 01-20-2024 Tyrone Mckeon DO Work Phone: [facility] Start: 01-20-2024 End: 01-20-2024 ambulatory [facility] Start: 01-20-2024 End: 01-20-2024 Office outpatient visit 25 minutes Jr. Angella Mckeon DO Work Phone: [facility] Comment on above: Primary osteoarthrit is of left knee (Primary Dx) Hordeolum externum o f right upper eyelid (Primary Dx); Blepharitis of right upper eyelid, unspecified type; Age-related osteoporosis without current pathological fracture; Encounter for immunization Start: 01-20-2024 End: 01-20-2024 ambulatory ANGELLA PASTRANA Not Available Start: 01-07-2024 End: 01-07-2024 Bamboo flowsheet Kathryn Cagle [employer] Work Phone: [facility] Start: 01-07-2024 End: 01-07-2024 Bamboo flowsheet Kathryn Cagle [employer] Work Phone: [facility] Start: 01-07-2024 End: 01-07-2024 Office outpatient visit 10 minutes Kathryn Cagle [employer] Work Phone: [facility] Comment on above: Primary localized os teoarthritis of left knee (Primary Dx); Left knee pain, unspecified chronicity Start: 01-07-2024 End: 01-07-2024 ambulatory KATHRYN CAGLE Not Available Start: 12-26-2023 End: 12-26-2023 ambulatory [facility] Start: 12-25-2023 End: 12-25-2023 ambulatory [facility] Start: 12-24-2023 End: 12-24-2023 Office outpatient visit 25 minutes [facility] DO Work Phone: [facility] Comment on above: Diarrhea, unspecifie d type (Primary Dx); Primary osteoarthritis of knees, bilateral; Vitamin D deficiency; Cobalamin deficiency; Age-related osteoporosis without current pathological fracture; Nausea and vomiting, unspecified vomiting type Start: 12-24-2023 End: 12-24-2023 ambulatory [facility] Start: 12-23-2023 End: 12-24-2023 [facility] Comment on above: Er Follow-up Start: 2023 End: 2023 Emergency department patient visit [facility] Start: 12-11-2023 End: 12-12-2023 Telephone encounter Dipika Sagastume [facility] Start: 08-21-2023 End: 08-23-2023 Telephone encounter Dipika Sagastume CMA [facility] Start: 07-25-2023 End: 07-25-2023 Office outpatient visit 15 minutes Sangeetha Quick DO Work Phone: [facility] Comment on above: Osteoarthritis of le ft shoulder, unspecified osteoarthritis type (Primary Dx) Start: 07-01-2023 End: 07-01-2023 Office outpatient visit 25 minutes Sangeetha Quick DO Work Phone: [facility] Comment on above: 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, bilateral (Primary Dx); Osteoarthritis of left shoulder, unspecified osteoarthritis type; Immunization due Start: 06-25-2023 End: 06-25-2023 Office outpatient visit 25 minutes Sangeetha Quick DO Work Phone: [facility] Comment on above: Localized osteoarthr itis of left knee (Primary Dx) Start: 05-30-2023 End: 05-30-2023 Office outpatient visit 25 minutes Sangeetha Quick DO Work Phone: [facility] Comment on above: Hypothyroidism, unsp ecified type (Primary Dx); Cobalamin deficiency; Hyperlipidemia, unspecified hyperlipidemia type; Osteoarthritis of left shoulder, unspecified osteoarthritis type Start: 09-28-2022 ambulatory NARENDRANATH HELENESHMIPATHY Facility:[facility] Start: 09-04-2022 ambulatory NARENDRANATH LAKSHMIPATHY Facility:[facility] Start: 08-28-2022 End: 08-28-2022 ambulatory NARENDRANATH LAKSHMIPATHY Facility:[facility] Start: 08-16-2022 End: 08-17-2022 ambulatory NARENDRANATH LAKSHMIPATHY Facility:[facility] Start: 07-24-2022 End: 07-24-2022 ambulatory NARENDRANATH LAKSHMIPATHY Facility:[facility] Start: 07-19-2022 End: 07-20-2022 ambulatory NARENDRANATH HELENESHMIPATHY Facility:[facility] Start: 05-18-2022 End: 05-19-[address] [...] Radex shoulder compl ete minimum 2 views Jr. Angella Campos Stepanthony DO Work Phone: Start: 08-18-2024 Adult depression scr eening assessment Sangeetha uQick DO Work Phone: Start: 05-19-2024 Adult depression scr eening assessment Sangeetha Quick DO Work Phone: Start: 02-27-2024 Adult depression scr eening assessment Sangeetha Quick DO Work Phone: Start: 01-20-2024 Adult depression scr eening assessment Sangeetha Quick DO Work Phone: Start: 01-07-2024 Radiologic examinati on knee 1/2 views Kathryn Cagle [employer] Work Phone: Start: 12-24-2023 Follow-up visit Follow-up [...] Start: 11-02-2025 Depression Screening Depression Scre ening [facility] Start: 11-02-2025 Fall Risk Screening Fall Risk Screen ing [facility] Start: 11-02-2025 Tobacco Screening Tobacco Screening [facility] Start: 08-18-2025 Depression Screening Depression Scre ening [facility] Start: 08-18-2025 Fall Risk Screening Fall Risk Screen ing [facility] Start: 08-18-2025 Tobacco Screening Tobacco Screening [facility] Start: 05-19-2025 Depression Screening Depression Scre ening [facility] Start: 05-19-2025 Fall Risk Screening Fall Risk Screen ing [facility] Start: 05-19-2025 Tobacco Screening Tobacco Screening [facility] Start: 03-02-2025 End: 03-02-2025 Patient encounter procedure 03/02/2025 2:20 PM EST [facility] [address] [place] [id number] [facility] Start: 02-26-2025 Depression Screening Depression Scre ening [facility] Start: 02-26-2025 Fall Risk Screening Fall Risk Screen ing [facility] Start: 02-26-2025 Medicare Annual Well ness Visit Medicare Annual Wellness Visit [facility] Start: 01-19-2025 Adult BMI Screening Adult BMI Screen ing [facility] Start: 01-19-2025 Depression Screening Depression Scre ening [facility] Start: 01-19-2025 Fall Risk Screening Fall Risk Screen ing [facility] Start: 01-19-2025 Tobacco Screening Tobacco Screening [facility] Start: 12-23-2024 Adult BMI Screening Adult BMI Screen ing [facility] Start: 12-23-2024 Depression Screening Depression Scre ening [facility] Start: 12-23-2024 Fall Risk Screening Fall Risk Screen ing [facility] Start: 12-23-2024 Tobacco Screening Tobacco Screening [facility] Start: 12-16-2024 End: 12-16-2024 Patient encounter procedure 12/16/2024 10:30 AM EDT Office Visit [facility] [address] [place] [id number] Jr. Angella Mckeon, DO [address] [facility] [address] [place] [address] [facility] Start: 12-14-2024 Influenza vaccination P [facility] Start: 11-02-2024 End: 11-02-2025 XR Lumbar spine 2 or 3 Views X-ray spine lumbar 2 or 3 views Imaging Routine Degenerative lumbar spinal stenosis Expected: 11/02/2024, Expires: 11/02/2025 [employer] Work Phone: Comment on above: Expected: 11/02/2024 , Expires: 11/02/2025 Start: 10-21-2024 End: 10-21-2024 Patient encounter procedure [facility] Comment on above: Arrived Start: 09-09-2024 End: 09-09-2024 Patient encounter procedure 09/09/2024 9:30 AM EDT Office Visit [facility] [address] [place] [address] Jr. Angella Mckeon, DO [address] [place] [address] Acute pain of right shoulder [facility] Comment on above: Acute pain of right shoulder Start: 07-24-2024 Adult BMI Screening Adult BMI Screen ing [facility] Start: 07-24-2024 Depression Screening Depression Scre ening [facility] Start: 07-24-2024 Fall Risk Screening Fall Risk Screen ing [facility] Start: 07-24-2024 Tobacco Screening Tobacco Screening [facility] Start: 07-20-2024 COVID-19 Vaccine () COVID-19 Vaccine () [facility] Start: 06-30-2024 Adult BMI Screening Adult BMI Screen ing [facility] Start: 06-30-2024 Depression Screening Depression Scre ening [facility] Start: 06-30-2024 Fall Risk Screening Fall Risk Screen ing [facility] Start: 06-30-2024 Tobacco Screening Tobacco Screening [facility] Start: 06-24-2024 Adult BMI Screening Adult BMI Screen ing [facility] Start: 06-24-2024 Depression Screening Depression Scre ening [facility] Start: 06-24-2024 Fall Risk Screening Fall Risk Screen ing [facility] Start: 06-24-2024 Tobacco Screening Tobacco Screening [facility] Start: 05-30-2024 Adult BMI Screening Adult BMI Screen ing [facility] Start: 05-30-2024 Depression Screening Depression Scre ening [facility] Start: 05-30-2024 Fall Risk Screening Fall Risk Screen ing [facility] Start: 05-30-2024 Tobacco Screening Tobacco Screening [facility] Start: 05-22-2024 COVID-19 Vaccine ( season) COVID-19 Vaccine () [facility] Start: 05-21-2024 DTaP,Tdap and Td Vaccines (2 - Td or Tdap) DTaP,Tdap and Td Vaccines (2 - Td or Tdap) [facility] Start: 05-19-2024 End: 05-19-2025 XR Foot - right 3 Views X-ray foot right minimum 3 views Imaging Routine Right foot pain Expected: 05/19/2024, Expires: 05/19/2025 [facility] Work Phone: Comment on above: Expected: 05/19/2024 , Expires: 05/19/2025 Start: 03-19-2024 End: 03-19-2024 Patient encounter procedure 03/19/2024 4:15 PM EST Office Visit [facility] [address] [place] [address] Sangeetha Quick DO [address] [facility] [address] [facility] Start: 03-16-2024 End: 03-16-2024 Patient encounter procedure 03/16/2024 10:00 AM EST Office Visit [facility] [address] [facility] [address] Kathryn Cagle, SALLIE [address] [place] [address] [facility] Start: 02-27-2024 End: 02-27-2024 Patient encounter procedure 02/27/2024 1:40 PM EST Office Visit [facility] [address] [place] [address] [facility] Start: 01-20-2024 End: 01-20-2024 Patient encounter procedure [facility] Comment on above: Arrived Start: 01-07-2024 End: 01-07-2024 Patient encounter procedure 01/07/2024 10:30 AM EDT Office Visit [facility] [address] [place] [address] [place] [address] Kathryn Cagle, [employer] [address] [place] [address] Arrived [facility] Comment on above: Arrived Start: 12-26-2023 End: 12-26-2023 Patient encounter procedure 12/26/2023 1:45 PM EDT Appointment [facility] - Mammogram DEXA [address] [place] [id number] Sangeetha Quick, DO [address] [place] [address] [facility] - Mamm[facility] DEXA Start: 12-24-2023 End: 12-23-2024 GI Panel(stool pathogen panel) GI Panel(stool pathogen panel) Lab Routine Diarrhea, unspecified type Expected: 12/24/2023, Expires: 12/23/2024 [facility] Work Phone: Comment on above: Expected: 12/24/2023 , Expires: 12/23/2024 Start: 12-24-2023 End: 12-24-2023 Patient encounter procedure 12/24/2023 1:00 PM EDT [facility] [address] [place] [phone] Sangeetha Quick, DO [address] [place] [address] [facility] Start: 12-15-2023 COVID-19 Vaccine ( season) COVID-19 Vaccine ( season) [facility] Start: 12-15-2023 Influenza vaccination [facility] Start: 12-03-2023 End: 12-03-2023 Patient encounter procedure 12/03/2023 2:00 PM EDT [facility] [address] [place] [phone] [facility] Start: 11-28-2023 Medicare Annual Well ness Visit Medicare Annual Wellness Visit [employer] Start: 07-14-2023 Influenza vaccination [facility] Comment on above: Postponed from 12/14 (Vaccine Not Available) Start: 06-25-2023 End: 06-24-2024 XR Knee - left 3 Views X-ray knee left 3 views Imaging Routine Localized osteoarthritis of left knee Expected: 06/25/2023, Expires: 06/24/2024 [employer] Phone: Comment on above: Expected: 06/25/2023 , Expires: 06/24/2024 Start: 12-14-2022 COVID-19 Vaccine ( season) [facility] Start: 12-14-2022 Influenza vaccination Influenza Vacc ine [facility] Start: 12-20-1997 Administration of varicella zoster vaccine Zoster (Shingles) Vaccine (1 of 2) [employer] Start: 12-20-1965 Adult BMI Follow Up Plan Adult BMI Follow Up Plan [facility] End: 12-23-2024 Basic metabolic 2000 panel - Serum or Plasma Basic Metabolic Panel Lab Routine Diarrhea, unspecified type 1 Occurrences starting 12/24/2023 until 12/23/2024 [employer] Comment on above: 1 Occurrences starti ng 12/24/2023 until 12/23/2024 End: 05-19-2025 CBC W Auto Differential panel - Blood CBC auto differential Lab Routine Hypothyroidism, unspecified type 1 Occurrences starting 05/19/2024 until 05/19/2025 [employer] Comment on above: 1 Occurrences starti ng 05/19/2024 until 05/19/2025 End: 05-19-2025 Comprehensive metabolic 2000 panel - Serum or Plasma Comprehensive metabolic panel Lab Routine Hypothyroidism, unspecified type 1 Occurrences starting 05/19/2024 until 05/19/2025 [employer] Comment on above: 1 Occurrences starti ng 05/19/2024 until 05/19/2025 End: 08-18-2025 Comprehensive metabolic 2000 panel - Serum or Plasma Comprehensive metabolic panel Lab Routine Hyperlipidemia, unspecified hyperlipidemia type 1 Occurrences starting 08/18/2024 until 08/18/2025 [employer] Phone: Comment on above: 1 Occurrences starti ng 08/18/2024 until 08/18/2025 Comprehensive metabo lic 2000 panel - Serum or Plasma Comprehensive metabolic panel Lab Routine Hyperlipidemia, unspecified hyperlipidemia type 08/18/2024 3:42 PM EDT [facility] End: 05-19-2025 Cyanocobalamin vitamin b-12 Vitamin B12 Lab Routine Cobalamin deficiency 1 Occurrences starting 05/19/2024 until 05/19/2025 [employer] Comment on above: 1 Occurrences starti ng 05/19/2024 until 05/19/2025 End: 12-23-2024 Cyanocobalamin vitamin b-12 Vitamin B12 Lab Routine Cobalamin deficiency 1 Occurrences starting 12/24/2023 until 12/23/2024 [employer] Comment on above: 1 Occurrences starti ng 12/24/2023 until 12/23/2024 End: 08-18-2025 Lipid 1996 panel - Serum or Plasma Lipid profile Lab Routine Hyperlipidemia, unspecified hyperlipidemia type 1 Occurrences starting 08/18/2024 until 08/18/2025 [employer] Comment on above: 1 Occurrences starti ng 08/18/2024 until 08/18/2025 Lipid 1996 panel - S annette or Plasma Lipid profile Lab Routine Hyperlipidemia, unspecified hyperlipidemia type 08/18/2024 3:42 PM EDT [facility] End: 05-19-2025 Thyroid profile includes TSH FT4 Thyroid profile includes TSH FT4 Lab Routine Hypothyroidism, unspecified type 1 Occurrences starting 05/19/2024 until 05/19/2025 [facility] Comment on above: 1 Occurrences starti ng 05/19/2024 until 05/19/2025 End: 05-19-2025 Vitamin D 25 hydroxy Vitamin D 25 hydroxy Lab Routine Vitamin D deficiency 1 Occurrences starting 05/19/2024 until 05/19/2025 [facility] Comment on above: 1 Occurrences starti ng 05/19/2024 until 05/19/2025 Immunizations Immunization Date Immunization Notes Care Provider Fa cili 01-20-2024 Covid-19, Mrna, Lnp- s, Pf,christian-sucrose,30 Mcg/0.3ml Sangeetha Jessyromulo [place] Work Phone: [facility] 01-20-2024 Seasonal trivalent influenza vaccine, adjuvanted, preservative free Sangeetha Quick DO Work Phone: [facility] 01-20-2024 Immunization, In Clinic,; Translations: [Drug or medicament (substance)] Sangeetha Quick DO Work Phone: [facility] 01-20-2024 influenza virus vacc ine, unspecified formulation Sangeetha Dunbars DO Work Phone: [facility] 01-22-2022 influenza virus vacc ine, unspecified formulation Kathryn Cagle NP Work Phone: [facility] 04-24-2017 Influenza, injectabl e, Madin Ammy Canine Kidney, preservative free, quadrivalent Sangeetha Dunbars DO Work Phone: [facility] 04-24-2017 influenza virus vacc ine, unspecified formulation Sangeetha Dunbars DO Work Phone: [facility] 03-15-2016 pneumococcal polysaccharide vaccine, 23 valent Sangeetha Dunbars DO Work Phone: [facility] 01-11-2016 influenza, seasonal, injectable, preservative free Sangeetha Dunbars DO Work Phone: [facility] 01-05-2015 influenza, seasonal, injectable, preservative free Sangeetha Dunbars DO Work Phone: [facility] 01-05-2015 pneumococcal conjuga te vaccine, 13 valent Sangeetha Dunbars DO Work Phone: [facility] 05-21-2014 pneumococcal polysaccharide vaccine, 23 valent Sangeetha Jiménezhas DO Work Phone: [facility] 05-21-2014 tetanus toxoid, redu mary diphtheria toxoid, and acellular pertussis vaccine, adsorbed Sangeetha Dunbars DO Work Phone: [facility] Payers Date Payer Category Payer Managed Care Other (unspecified) [employer] [id number] 2021 Commercial Managed C are - POS [employer] [id number] 2021 Private Health Insurance [id number] 2010 Medicare [id number] .[id number] 1959 Medicare [id number] 1959 Private Health Insurance CLI [id number] 1945 Unknown [id number] 2.16.840.1.389267.3.579 .2.593 1945 Unknown [id number] 2.16.840.1.825956.3.579 .2.593 1947 Unknown [id number] 2.16.840.1.778070.3.579 .2.593 1947 Unknown [id number] 2.16.840.1.950761.3.579 .2.593 1947 Unknown [id number] 2.16.840.1.115136.3.579 .2.593 1947 Unknown [id number] 2.16.840.1.569671.3.579 .2.593 1947 Unknown [id number] 2.16.840.1.316818.3.579 .2.593 1947 Unknown [id number] 2.16.840.1.133230.3.579 .2.593 1947 Unknown [id number] 2.16.840.1.925522.3.579 .2.593 1947 Unknown [id number] 2.16.840.1.560269.3.579 .2.593 1947 Unknown [id number] 2.16840.1.588713.3.579 .2.593 1947 Unknown [id number] 2.16.840.1.317387.3.579 .2.593 1947 Unknown [id number] 2.16840.1.596348.3.579 .2.593 1947 Unknown [id number] 2.16840.1.277190.3.579 .2.593 1947 Unknown [id number] 2.16840.1.856923.3.579 .2.593 1947 Unknown [id number] 2.16.840.1.884237.3.579 .2.1286 1947 Unknown [id number] 2.16.840.1.131427.3.579 .2.1286 1947 Unknown [id number] 2.16.840.1.829980.3.579 .2.1259 1947 Unknown [id number] 2.16.840.1.784544.3.579 .2.1259 -07-1946 Unknown [id number] 2.16.840.1.245339.3.579 .2.1258 1947 Unknown [id number] 2.16.840.1.653964.3.579 .2.1258 1947 Unknown [id number] 2.16.840.1.905278.3.579 .2.1258 1947 Unknown [id number] 2.16.840.1.860733.3.579 .2.1258 1947 Unknown [id number] 2.16.840.1.711922.3.579 .2.1285 1947 Unknown [id number] 2.16840.1.290636.3.579 .2.1285 1947 Unknown [id number] 2.840.1.102140.3.579 .2.1285 1947 Unknown [id number] 2.840.1.585000.3.579 .2.1285 1947 Unknown [id number] 2.840.1.417088.3.579 .2.1285 1947 Unknown [id number] 2.840.1.403442.3.579 .2.1285 1947 Unknown [id number] 2.840.1.933674.3.579 .2.1285 1947 Unknown [id number] 2.840.1.021262.3.579 .2.1285 1947 Unknown [id number] 2.16840.1.087157.3.579 .2.1285 1947 Unknown [id number] 2.16840.1.911816.3.579 .2.1285 1947 Unknown [id number] 2.840.1.633231.3.579 .2.1285 1947 Unknown [id number] 2.16.840.1.710541.3.579 .2.1286 1947 Unknown [id number] 2.16.840.1.205606.3.579 .2.6 1947 Unknown [id number] 2.16.840.1.234533.3.579 .2.6 1945 Unknown [id number] 2.16.840.1.191287.3.579 .2.1286 1947 Unknown [id number] 2.16.840.1.734449.3.579 .2.196 1945 Unknown [id number] 2.16.840.1.498325.3.579 .2.196 Social History Date Type Detail Facility Start: 05-14-2022 End: 01-07-2024 Tobacco smoking status [facility] Never smoked tobacco [facility] Healthcare Work Phone: Start: 05-14-2022 End: 01-07-2024 Tobacco use and exposure Smokeless tobacco non-user [facility] Start: 01-07-2024 End: 10-21-2024 Alcoholic beverage intake Ex-drinker (finding) [facility] Start: 11-27-2022 End: 01-07-2024 History of Social function [facility] Start: 11-27-2022 End: 01-07-2024 Tobacco use panel [facility] Start: 1945 Sex assigned at Not on file [facility] [place] [facility] [place] smoking consumption unknown [facility] Start: 05-19-2024 End: 08-18-2024 Alcoholic beverage intake Current non-drinker of alcohol (finding) [facility] Has the [employer], or [employer] threatened to shut off services in your home in past 12Mo No [facility] Do you belong to any clubs or organizations such as shinto groups, unions, fraternal or athletic groups, or school groups? Yes [facility] Are you now , , , , never or living with a partner? [facility] How often to you hav e a drink containing alcohol? Never [facility] How many standard dr inks containing alcohol do you have on a typical day? Patient does not drink [facility] How hard is it for y ou to pay for the very basics like food, housing, medical care, and heating Somewhat hard [facility] Do you feel stress - tense, restless, nervous, or anxious, or unable to sleep at night because your mind is troubled all the time - these days [OSQ] Rather much [facility] Start: 11-18-2014 Sex Female (finding) [facility] How hard is it for y ou to pay for the very basics like food, housing, medical care, and heating Hard [facility] [employer] [facility] Do you feel stress - tense, restless, nervous, or anxious, or unable to sleep at night because your mind is troubled all the time - these days [OSQ] Very much [facility] Clinical Notes 09-07-2021 to 11-05-2024 Telephone [...] she will need a script sent to [facility] in [place]. Thank you. Message noted. I sent an order for Tramadol to [facility] in [place] documented in this encounter [facility] 11-05-2024 Telephone encounter Note Patient stopped in and she is in a lot of pain.and said the Meloxicam only work until noon. Her xrays have not been read yet. [facility] 11-05-2024 Telephone encounter Note Message noted. I reviewed her back xray. It shows osteoarthritis at multiple levels. If the Meloxicam is only working for part of the day, is she willing to take Tramadol to help supplement? She used that in the past with some success. Just let me know. [facility] 11-05-2024 Telephone encounter Note I spoke with pt and she agreed to take the Tramadol to supplement with the Meloxicam. Pt stated she will need a script sent to [facility] in [place]. Thank you. [facility] 11-05-2024 Telephone encounter Note Message noted. I sent an order for Tramadol to [facility] in [place] [facility] 11-02-2024 History of Present illness Narrative IM PROGRESS NOTE Patient - Rach Abrams Age - 78 y.o. - 1945 N - [id number] [facility] # - [id number] ASSESSMENT & PLAN 1. Gastroenteritis due to [...] has received LENY in the past at [place] [facility] -had MRI scan approximately 3 [...] 42.5 g; Refill: 1 Subjective FOLLOW-UP: EMERGENCY DEPARTMENT-[place] Patient was discharged from the facility on: [...] Also has been to pain management in [place] and received LENY to the lumbar spine. [...] 10/23/2024 Auto Resulted Final POC Urine Specific [place] 10/23/2024 1.020 1.010, 1.015, 1.020, 1.025 Final [...] Testing No results found. Sangeetha Quick DO., [facility] Physicians Office: [phone] documented in this encounter [facility] 10-26-2024 Miscellaneous Notes ED Outreach This documentation is being used for Transition of Care purposes: Yes/No: Yes ED Outreach Date: October 26, 2024 ED Outreach Method: COMMUNICATION METHOD: Telephone ED Outreach Attempt: first ED Outreach Outcome: Contacted Patient Name of ED Facility: [facility] Date of ED Discharge: 10/23/2024 Discharge [...] with additional concerns. documented in this encounter [facility] 10-26-2024 Telephone encounter Note ED Outreach This documentation is being used for Transition of Care purposes: Yes/No: Yes ED Outreach Date: October 26, 2024 ED Outreach Method: COMMUNICATION METHOD: Telephone ED Outreach Attempt: first ED Outreach Outcome: Contacted Patient Name of ED Facility: [facility] Date of ED Discharge: 10/23/2024 Discharge [...] will contact the office with additional concerns. [facility] 10-21-2024 History of Present illness Narrative Associated [...] WKS) XRAY 09/09/24 IN EPIC MRI 08/11/24 [facility] PER PT - POSSIBLY TOOK MDP [...] DROPPING OBJECTS LESS FREQUENTLY - WEAKNESS. 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 ADMITS POPPING / [...] Daily RT cholecalciferol (Vitamin D-3) 1.25 MG (80486 UT) capsule 1 capsule, Oral, Weekly ergocalciferol (Vitamin D2) 1.25 MG (74316 UT) capsule TAKE 1 CASPULE BY MOUTH [...] Use: Not At Risk (11/27/2022) Received from [employer] Frequency of Alcohol Consumption: Never Average [...] requiring urgent evaluation. documented in this encounter [facility] 09-09-2024 History of Present illness Narrative Associated Order(s): L Inj/Asp: R subacromial bursa Post-Procedure Diagnose(s): Acute pain of right shoulder Images from the original note were not included. HISTORY OF PRESENT ILLNESS: EST PT Rach Quaintance is an 78 y.o. @ female. (EST PT) (NEW PROBLEM) - (R) SHOULDER DISCOMFORT S/P INJURY 06/12/24 (3 MONTHS) - OVERHEAD BARN DOOR OPENED AND CAME DOWN ONTO (R) SHOULDER XRAY TODAY, 09/09/24 IN EPIC MRI 08/11/24 @[facility] PER PT - POSSIBLY TOOK MDP FOR LBP IN 05/2024 NO CORTISONE INJ NO PT PAIN MGMT @[facility] (DR. YOU) SUPERIOR / POSTERIOR DISCOMFORT. RADIATION INTO UPPER ARM. ADMITS WARMTH TO TOUCH / DIFFUSE SWELLING. DENIES N/T. ADMITS DROPPING OBJECTS FREQUENTLY - WEAKNESS. 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 documented in this encounter [facility] 08-18-2024 History of Present illness Narrative IM [...] and knees. Going to pain clinic at [place] and receiving injections.. Exam BP 140/80 (BP [...] Testing No results found. Sangeetha Quick DO., [facility] Physicians Office: [phone] documented in this encounter [facility] 05-19-2024 History of Present illness Narrative IM [...] 3. Vitamin D deficiency -currently taking D3 80138 units weekly because of low vitamin-D and [...] Testing No results found. Sangeetha Quick DO., [facility] Physicians Office: [phone] documented in this encounter [facility] [employer] [facility] 02-27-2024 History of Present illness Narrative [...] Do you have a durable power of civil rights attorney?: Yes [facility] Do you have [...] year (around 02/26/2025). [facility] 02-06-2024 History of Present illness Narrative Pt here for reclast as scheduled. Has had in the past without issues. PIV initiated to [facility]. Brisk blood return. Flushes with ease. Reclast infused over 15 minutes without incident. Line flushed. PIV removed. Pt dc'd in stable ambulatory condition. documented in this encounter [facility] 02-03-2024 Miscellaneous Notes Called pt to let her know that she just has to go get her labs drawn at the hospital and the orders are already in. documented in this encounter [facility]-03[facility]2024 Telephone encounter Note Called pt to let her know that she just has to go get her labs drawn at the hospital and the orders are already in. [facility] 01-22-2024 Miscellaneous Notes [facility] Message noted. The order was sent. She can call them at any time Mailbox is full documented in this encounter [facility] 01-22-2024 Telephone encounter Note Patient called [facility] 01-22-2024 Telephone encounter Note Message noted. The order was sent. She can call them at any time [facility] 01-22-2024 Telephone encounter Note Mailbox is full [facility] 01-20-2024 History of Present illness Narrative IM PROGRESS NOTE Patient - Rach Abrams Age - 78 [facility] 1945 [id number] ASSESSMENT & PLAN Diagnosis Plan 1. Hordeolum [...] Testing No results found. Sangeetha Quick DO., [facility] Physicians Office: [phone] documented in this encounter [facility] [employer] [facility] 01-20-2024 History of Present illness Narrative HISTORY OF PRESENT ILLNESS: EST PT Rach Ruizaintance is an 78 y.o. @ female. (EST PT; MOST RECENT VISIT WITH KATHRYN) RECHECK LT KNEE PAIN - HERE TO POSSIBLY DISCUSS SURGERY; WOULD LIKE TO WAIT UNTIL THE BEGINNING OF NEXT YEAR PT DID HAVE VISCO PER PAIN MANAGEMENT [facility] ~4-5WKS AGO; SOME RELIEF XRAY CHANGE 01/07/24 XRAY [facility] 09/11/23 XRAY H 06/27/23 XRAY (08/26/18) @ [facility] (01/18/17) PER DR MCKEON PREVIOUS XRAYS (10/17/16) (AP STANDING) @ [facility]. PHYSICAL THERAPY @ [facility] 08/26/18 DR YUHAS TX; TRAMADOL PRN- - HX [facility] INJ [...] Daily RT cholecalciferol (Vitamin D-3) 1.25 MG (65209 UT) capsule 1 capsule, Oral, Weekly ergocalciferol (Vitamin D2) 1.25 MG (78849 UT) capsule TAKE 1 CASPULE BY MOUTH [...] Use: Not At Risk (11/27/2022) Received from [employer], [employer] Frequency of Alcohol Consumption: Never Average [...] Angella Mckeon D.O. documented in this encounter [facility] 01-07-2024 History of Present illness Narrative Images from the original note were not included. Chief Complaint Patient presents with Left Knee - Pain HISTORY OF PRESENT ILLNESS: Rach Abrams is an 78 y.o. @ female. (EST PT) LT KNEE PAIN 2016. STATES A COUPLE WKS AGO, HER KNEE [...] Daily RT cholecalciferol (Vitamin D-3) 1.25 MG (33747 UT) capsule 1 capsule, Oral, Weekly Cyanocobalamin ER 1000 MCG tablet controlled-release 2 tablets, Oral, Daily ergocalciferol (Vitamin D2) 1.25 MG (05795 UT) capsule TAKE 1 CASPULE BY MOUTH [...] left knee showed severe varus deformity with [id number] articulation to the medial joint line, flattening [...] develop for requiring urgent evaluation. Kathryn Cagle INSTRUCTIONAL TECHNOLOGY TEACHER-PICKLING TANK OPERATOR documented in this encounter [facility] 12-24-2023 History of Present illness Narrative IM PROGRESS NOTE Patient - Rach Abrams Age - 78 [facility] 1945 [id number] ASSESSMENT & PLAN 1. Diarrhea, unspecified type [...] Vitamin D deficiency -currently on vitamin D2 78815 units weekly -no change today 4. Cobalamin [...] She was [place] [facility] [place], and person there was having diarrhea and [...] Detected Not Detected^Not Detected Final Specific gravity [facility] 2023 1.015 1.003 - 1.035 Final Leukocyte esterase [facility] 2023 Trace (A) Negative^Negative Final Nitrite [facility] 2023 Negative Negative^Negative Final Ph 2023 5.5 5.0 - 8.5 Final Protein [facility] 2023 Negative Negative^Negative mg/dL Final Urine glucose [facility] 2023 Negative Negative^Negative mg/dL Final Ketones [facility] 2023 Trace (A) Negative^Negative mg/dL Final Urobilinogen [facility] 2023 0.2 <1.1 eu/dL Final Bilirubin [facility] 2023 Negative Negative^Negative Final Hemoglobin [facility] 2023 Small (A) Negative^Negative Final Other Testing No results found. Sangeetha Quick DO., [facility] Physicians Office: [phone] documented in this encounter [facility] 12-23-2023 Miscellaneous Notes ED Outreach This documentation is being used for Transition of Care purposes: Yes/No: Yes ED Outreach Date: December 23, 2023 ED Outreach Method: COMMUNICATION METHOD: Telephone ED Outreach Attempt: second ED Outreach Outcome: Contacted Patient Name of ED Facility: [facility] Date of ED Discharge: 2023 Discharge [...] with additional concerns. documented in this encounter [facility] 12-23-2023 Telephone encounter Note ED Outreach This documentation is being used for Transition of Care purposes: Yes/No: Yes ED Outreach Date: December 23, 2023 ED Outreach Method: COMMUNICATION METHOD: Telephone ED Outreach Attempt: second ED Outreach Outcome: Contacted Patient Name of ED Facility: [facility] Date of ED Discharge: 2023 Discharge [...] will contact the office with additional concerns. [facility] 12-11-2023 Miscellaneous Notes Patient came in today and asked if her mammogram could be sent to [facility]. Also she was wondering if you would check into her in fusion at [facility]. Message noted. The mammogram order was sent to [facility] I put a new order for the Reclast infusion at [facility]. She can call about setting up the infusion Informed patient via answering machine. documented in this encounter [facility] 12-11-2023 Telephone encounter Note Patient came in today and asked if her mammogram could be sent to [facility]. Also she was wondering if you would check into her in fusion at [facility]. [facility] 12-11-2023 Telephone encounter Note Message noted. The mammogram order was sent to [facility] I put a new order for the Reclast infusion at [facility]. She can call about setting up the infusion [facility] 12-11-2023 Telephone encounter Note Informed patient via answering machine. [facility] 08-21-2023 Miscellaneous Notes Patient called [...] time. Patient notified documented in this encounter [facility] 08-21-2023 Telephone encounter Note Patient called and the injection in her knee did not help. She wanted to know where to go from here. Does she need another apt? [facility] 08-21-2023 Telephone encounter Note Message noted. She needs to see orthopedics about a knee replacement. Whom does she wish to see? [facility] 08-21-2023 Telephone encounter Note LM for Patient to call back. [facility] 08-21-2023 Telephone encounter Note She would like to use Dr. Mckeon [facility] 08-21-2023 Telephone encounter Note Message noted. I made a referral to Dr. Mckeon. She can call his office and schedule at any time. [facility] 08-21-2023 Telephone encounter Note Patient notified [facility] 07-25-2023 History of Present illness Narrative Associated [...] Testing No results found. Sangeetha Quick DO., [facility] Office: [phone] documented in this encounter [facility] 07-01-2023 History of [...] Other Testing No results found. Sangeetha Quick DO. [facility] Office: [phone] documented in this encounter [facility] 06-25-2023 History of Present illness [...] Testing No results found. Sangeetha Quick DO., [facility] Office: [phone] documented in this encounter [facility] [facility] 05-30-2023 History of [...] moved into [place] [facility] [place], and a son was found at home. [...] Testing No results found. Sangeetha Quick DO., [facility] Office: [phone] documented in this encounter [facility] 07-19-2022 Note CONSULTATION CONSULTATION DATE: [...] our patients to inform us about any [id number] medications or herbal remedies/nutritional supplements/alternative remedies. 2. [...] options with their primary care provider. [facility] 04-26-2022 Note CONSULTATION CONSULTATION DATE: 04/26/2022 [...] three months' time unless otherwise indicated. [facility] 03-27-2022 Note CONSULTATION CONSULTATION DATE: 03/27/2022 [...] to proceed. CC: Sangeetha Quick D.O. [facility] 02-08-2022 Note CONSULTATION CONSULTATION DATE: 02/08/2022 [...] The patient agrees with this plan. [facility] 01-11-2022 Note CONSULTATION CONSULTATION DATE: 01/11/2022 [...] Patient would like to move forward. [facility] 12-14-2021 Note CONSULTATION PROCEDURE DATE: 12/14/2021 [...] be followed up in the office. [facility] 12-14-2021 Note CONSULTATION CONSULTATION DATE: 12/14/2021 [...] well, which she does consent to. [facility] 09-07-2021 Note CONSULTATION CONSULTATION DATE: 09/07/2021 [...] in the fall. She was referred to [facility] Neurosurgery and is planning to have surgery in the fall following harvest season. 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 Patient feels that she can make it through the summer with a combination of her medication and occasional trigger point injections. 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 She uses heat [...] in three months' time, unless otherwise indicated. [facility] Signed and Approved by: MARIELY YUAN . 09/14/2021 16:04:00 [facility] Evaluation note Diagnosis Primary osteoarthritis of left knee- Primary [facility] Diagnosis Primary localized osteoarthritis of left knee- Primary Left knee pain, unspecified chronicity documented in this encounter [facility] Healthcare[facility]* Diagnosis Hypothyroidism, unspecified type- Primary Right foot pain Pain in soft tissues of limb Vitamin D deficiency Cobalamin deficiency Other B-complex deficiencies Lichen planus atrophicus Lichen planus [facility] Diagnosis Hypothyroidism, unspecified type- Primary Cobalamin deficiency Other B-complex deficiencies Hyperlipidemia, unspecified hyperlipidemia type Osteoarthritis of left shoulder, unspecified osteoarthritis type [facility] Diagnosis Localized osteoarthritis of left knee- Primary [facility] Diagnosis Primary osteoarthritis of knees, bilateral- Primary Osteoarthritis of left shoulder, unspecified osteoarthritis type Immunization due [facility] Diagnosis Osteoarthritis of left shoulder, unspecified osteoarthritis type- Primary [facility] Diagnosis Hordeolum externum of right upper eyelid- Primary Blepharitis of right upper eyelid, unspecified type Age-related osteoporosis without current pathological fracture Encounter for immunization [facility] Diagnosis Diarrhea, unspecified type- Primary Primary osteoarthritis of knees, bilateral Vitamin D deficiency Cobalamin deficiency Other B-complex deficiencies Age-related osteoporosis without current pathological fracture Nausea and vomiting, unspecified vomiting type [facility] Diagnosis Age-related osteoporosis without current pathological fracture- Primary [facility] Diagnosis Hypothyroidism Unspecified hypothyroidism Deficiency of other specified B group vitamins Vitamin D deficiency, unspecified Hordeolum externum of right upper eyelid documented in this encounter [facility]* Diagnosis Encounter for subsequent annual [facility] this encounter [facility]* Diagnosis Hyperlipidemia, unspecified [facility] Diagnosis Hyperlipidemia, unspecified hyperlipidemia type- Primary Hypothyroidism, unspecified type Elevated blood pressure reading Elevated blood pressure reading without diagnosis of hypertension Cobalamin deficiency Other B-complex deficiencies [facility] Diagnosis Hypothyroidism Unspecified hypothyroidism documented in this encounter [facility]* Diagnosis Acute pain of right shoulder- Primary Nontraumatic complete tear of right rotator cuff documented in this encounter [facility] HealthcareEvaluation note* Diagnosis Acute pain of right shoulder- Primary Rotator cuff arthropathy, right documented in this encounter [facility] HealthcareEvaluation note* Diagnosis Gastroenteritis due to norovirus- Primary Degenerative lumbar spinal stenosis Spinal stenosis of lumbar region Hiatal hernia Diaphragmatic hernia without mention of obstruction or gangrene Lichen planus atrophicus Lichen planus documented in this encounter [facility]* Diagnosis Cobalamin deficiency Other B-complex deficiencies documented in this encounter [facility]* Diagnosis Hyperlipidemia, unspecified documented in this encounter [facility] System[facility]ructionsNot on filedocumented in this encounter [facility] SystemInstructionsNot on filedocumented in this encounter [facility] SystemInstructionsNot on filedocumented in this encounter [facility]* Attachments The following attachments cannot be sent through Care Everywhere. * Osteoarthritis Discharge Instructions (Martiniquais) [facility]ructionsNot on file documented in this [facility] SystemInstructionsNot on file documented in this [facility] SystemInstructionsNot on file documented in this [facility] System[facility]ructionsNot on file documented in this [facility] SystemInstructionsNot on file documented in this encounterPro[facility] SystemInstructionsNot on file documented in this encounterProMedinc Health SystemInstructionsNot on file documented in this encounterProMedica Health SystemInstructionsNot on file documented in this encounter[facility] SystemInstructionsNot on file documented in this [facility] Health SystemInstructionsNot on file documented in this [facility] SystemInstructionsNot on file documented [facility] Summary Purpose Family History No Family [...] CREATED AUTHOR AUTHOR'S ORGANIZ ATION 08/29/2022 [facility] DATE CREATED AUTHOR AUTHOR'S ORGANIZ ATION 08/21/2024 [facility] DATE CREATED AUTHOR AUTHOR'S ORGANIZ ATION 10/25/2024 [facility] dical [facility] DATE CREATED AUTHOR AUTHOR'S ORGANIZ ATION 11/04/2024 [facility] DATE CREATED AUTHOR AUTHOR'S ORGANIZ ATION 11/07/2024 [facility] DATE CREATED AUTHOR AUTHOR'S ORGANIZ ATION 12/12/2024 [facility] Care Teams (unrecognized sec tion and content) Fire Extinguisher Inspector Relationship Specialty Start Date End Date Sangeetha Quick MD [address] [place] [address] PCP - General Internal Medicine 09/10/23 Fire Extinguisher Inspector Relationship Specialty Start Date End Date Sangeetha Quick MD [address] [place] [address] PCP - General Internal Medicine 09/10/23 Fire Extinguisher Inspector Relationship Specialty Start Date End Date Sangeetha Quick MD [address] [place] [address] PCP - General Internal Medicine 09/10/23 Fire Extinguisher Inspector Relationship Specialty Start Date End Date Sangeetha Quick DO [address] [place] [address] PCP - General 11/09/13 Fire Extinguisher Inspector Relationship Specialty Start Date End Date Sangeetha Quick DO [address] [place] [address] PCP - General 11/09/13 Fire Extinguisher Inspector Relationship Specialty Start Date End Date Sangeetha Quick DO [address] [place] [address] PCP - General 11/09/13 Fire Extinguisher Inspector Relationship Specialty Start Date End Date Sangeetha Quick DO [address] [place] [address] PCP - General 11/09/13 Fire Extinguisher Inspector Relationship Specialty Start Date End Date Sangeetha Quick DO [address] [place] [address] PCP - General 11/09/13 Fire Extinguisher Inspector Relationship Specialty Start Date End Date Sangeetha Quick DO [address] [place] [address] PCP - General 11/09/13 Fire Extinguisher Inspector Relationship Specialty Start Date End Date Sangeetha Quick DO [address] [place] [address] PCP - General 11/09/13 Fire Extinguisher Inspector Relationship Specialty Start Date End Date Sangeetha Quick DO [address] [facility] [place] [address] PCP - General 11/09/13 Fire Extinguisher Inspector Relationship Specialty Start Date End Date Sangeetha Quick DO [address] [place] [address] PCP - General 11/09/13 Fire Extinguisher Inspector Relationship Specialty Start Date End Date Sangeetha Quick DO [address] [facility] [place] [address] PCP - General 11/09/13 Fire Extinguisher Inspector Relationship Specialty Start Date End Date Sangeetha Quick DO [address] [facility] [place] [address] PCP - General 11/09/13 Fire Extinguisher Inspector Relationship Specialty Start Date End Date Sangeetha Quick DO [address] [facility] [place] [address] PCP - General 11/09/13 Fire Extinguisher Inspector Relationship Specialty Start Date End Date Sangeetha Quick DO [address] [facility] [place] [address] PCP - General 11/09/13 Fire Extinguisher Inspector Relationship Specialty Start Date End Date Sangeetha Quick MD PCP - General Internal Medicine 09/10/23 Fire Extinguisher Inspector Relationship Specialty Start Date End Date Sangeetha Quick MD PCP - General Internal Medicine 09/10/23 Fire Extinguisher Inspector Relationship Specialty Start Date End Date Sangeetha Quick MD PCP - General Internal Medicine 09/10/23 Fire Extinguisher Inspector Relationship Specialty Start Date End Date Sangeetha Quick MD PCP - General Internal Medicine 09/10/23 Fire Extinguisher Inspector Relationship Specialty Start Date End Date Sangeetha Quick DO [address] [place] [address] PCP - General 11/09/13 Reason for Visit [...] Age-related osteoporosis without current pathological fracture Procedures MT ZOLEDRONIC ACID 1MG MT INJECTION,THERAP/PROPH/DIAG NOST, IV PUSH, INITIAL DRUG Sangeetha Quick DO [address] [place] [address] Phone: tel: fax: Alicia Gaston [facility] - Medical Oncology [address] [place] [address] Phone: tel: fax: Referral ID Status Reason Start Date Expiration Date V isits Requested Visits Authorized [id number] Authorized 12/31/2022 01/29/2025 1 1 Reason Comments [...] BE BASED ON THE PRIMARY CLINICAL RECORDS. [facility] [employer] [facility]. provides no warranty or guarantee of the accuracy or completeness of information in this document.
--- OUTSIDE RECORDS SUMMARY | 2024-12-28 07:09 | XMS_ITS | Encounter Summary ---
Author Organization [facility] [employer] [facility] tem Address [id number] [address] [place] [address] Care Team Providers Care Marketing Programs Specialist Name Role Phone Rusty Newman DO Primary Care Provider [phone] Encounter Details Date Type Department Care Team (Late st Contact Info) Description 05/31/2023 Orders Only [facility] Internal Medicine - Family Medicine [address] [place] [address] Rusty Newman DO [address] [place] [address] Hypothyroidism; Hyperlipidemia, unspecified Social History Tobacco Use [...] Answer Date Recorded Total Score 0 05/30/2023 [facility] [place] of Occupat ional Health - Occupational Stress [...] Internal Medicine - Family Medicine [address] [place] [address] documented as of this encounter Visit Diagnoses [...] documented as of this encounter Care Teams Marketing Programs Specialist Relationship Specialty Start Date End Date Rusty Newman DO [address] [place] [address] PCP - General 11/09/13 documented as of this encounter
--- OUTSIDE RECORDS SUMMARY | 2024-12-28 07:09 | XMS_ITS | Encounter Summary ---
Author Organization [facility] tem Address [id number] [address] [place] [address] Care Team Providers Care Office Technology Instructor Name Role Phone Rusty Newman DO Primary Care Provider [phone] Encounter Details Date Type Department Care Team (Late st Contact Info) Description 12/11/2023 Orders Only [facility] Internal Medicine - Family Medicine [address] [place] [id number] Rusty Newman DO [address] [place] [address] Encounter for screening mammogram for malignant neoplasm [...] often do you attend chur ch or voodoo services? More than 4 times per year 11/27/2022 Do you belong to any clubs o r organizations such as nondenominational groups, unions, fraternal or athletic groups, or [...] Answer Date Recorded Total Score 0 07/25/2023 [facility] of Occupat ional Health - [...] Do you need help finding a [facility] career center and/or a training program? [...] Description 03/02/2025 2:20 PM EST Office Visit [facility] Internal Medicine - Family Medicine [address] [place] [address] documented as of this encounter Results * Mammography screening bilateral with CAD (12/26/2023 1:36 PM EDT) Anatomical Region Laterality Modality Breast Bilateral Mammography 12/26/2023 1:45 PM EDT Narrative 12/26/2023 1:46 PM EDT RACH Diaz QUAINTANCE 1945 [id number] EXAM: MAMM SCREENING BILATERAL W CAD, 12/26/2023 [...] MAMM 1 YR FDA Accredited Performing Facility: [facility] - Mammography/DEXA Imaging [address] [facility] [address] Procedure Note Telma Sheikh MD - 12/26/2023 RACH Diaz QUAINTANCE 1945 [id number] EXAM: MAMM SCREENING BILATERAL W CAD, 12/26/2023 [...] MAMM 1 YR FDA Accredited Performing Facility: [facility] - Mammography/DEXA Imaging [address] [facility] [address] Rutsy Newman DO [facility] MAMMOGRAPHY ORDERABLES Final [...] documented as of this encounter Care Teams Office Technology Instructor Relationship Specialty Start Date End Date Rusty Newman DO [address] [place] [address] PCP - General 11/09/13 documented as of this encounter
--- OUTSIDE RECORDS SUMMARY | 2024-12-28 07:09 | XMS_ITS | Encounter Summary ---
Author Organization [facility] tem Address [id number] [address] [place] [address] Care Team Providers Care Logistics Manager Name Role Phone Rusty Newman DO Primary Care Provider [phone] Encounter Details Date Type Department Care Team (Late st Contact Info) Description 09/12/2023 Orders Only [facility] Internal Medicine - Family Medicine [address] [place] [address] External, Scanning Provider Social History Tobacco Use [...] any clubs o r organizations such as druze groups, unions, fraternal or athletic groups, or [...] Answer Date Recorded Total Score 0 07/25/2023 [facility] of Occupat ional Health - Occupational [...] Medicine - Family Medicine [address] [place] [address] documented as of this encounter Procedures Procedure [...] documented as of this encounter Care Teams Logistics Manager Relationship Specialty Start Date End Date Rusty Newman DO [address] [place] [address] PCP - General 11/09/13 documented as of this encounter
--- OUTSIDE RECORDS SUMMARY | 2024-12-28 07:09 | XMS_ITS | Clinical Summary ---
Author Organization [facility] Address [address] [place] [address] Care Team Providers Care Stress Analyst Name Role Phone Rusty Nemwan MD Primary Care Provider [phone] Allergies Active Allergy Reactions Criticality Noted Date [...] 03/19/2023 Active ergocalciferol (Vitamin D2) 1.25 MG (14973 UT) capsule TAKE 1 CASPULE BY MOUTH ONCE TIME PER WEEK Active cholecalciferol (Vitamin D-3) 1.25 MG (97447 UT) capsule Take 1 capsule by mouth 1 (one) time per week 05/22/2023 Active acetaminophen (Tylenol 8 Hour) 650 MG ER tablet Take 650 mg by mouth in the morning. Active Active Problems No known active problems Encounters Date Type Department Care Team Description 10/21/2024 10:15 AM EDT Office Visit [facility] [address] [place] [address] Jr. Bala Mckeon, Acute pain of right shoulder (Primary Dx); Rotator cuff arthropathy, right 10/21/2024 Bamboo flowsheet [facility] [address] [place] [address] Jr. Bala Mckeon DO 10/21/2024 Travel from [...] Procedure Name Priority Date/Time Associated Diagnosis Comments [place] ARTHROCENTESIS ASPIR&/INJ MAJOR JT/BURSA W/O US Routine 10/21/2024 10:48 AM EDT Acute pain of right shoulder from Last 3 Months Results * KS ARTHROCENTESIS ASPIR&/INJ MAJOR JT/BURSA W/O US (10/21/2024 [...] 3 Months Insurance MEDICARE T Care Teams Stress Analyst Relationship Specialty Start Date End Date Rusty Newman MD PCP - General Internal Medicine 09/10/23
--- OUTSIDE RECORDS SUMMARY | 2024-12-28 07:09 | XMS_ITS | Encounter Summary ---
Author Organization [employer] [facility] tem Address [id number] [address] [place] [address] Care Team Providers Care Senior Radiation Therapist Name Role Phone Rusty Newman Primary Care Provider [phone] Encounter Details Date Type Department Care Team (Late st Contact Info) Description 01/20/2024 Telephone [facility] Internal Medicine - Family Medicine [address] [place] [phone] Salena Gandhi CMA Social History Tobacco Use [...] often do you attend chur ch or anabaptist services? More than 4 times per year 11/27/2022 Do you belong to any clubs o r organizations such as alevism groups, unions, fraternal or athletic groups, or [...] Answer Date Recorded Total Score 0 01/20/2024 [facility] of Occupat ional Health - Occupational [...] Recorded Do you need help finding a [facility] career center and/or a training [...] - Family Medicine [address] [place] [address] documented as of this encounter Visit Diagnoses [...] as of this encounter Care Teams Senior Radiation Therapist Relationship Specialty Start Date End Date Rusty Newman DO [address] [place] [address] PCP - General 11/09/13 documented as of this encounter
--- OUTSIDE RECORDS SUMMARY | 2024-12-28 07:09 | XMS_ITS | Encounter Summary ---
Author Organization [employer] [facility] tem Address [id number] [address] [place] [address] Care Team Providers Care Chinchilla Machine Operator Name Role Phone Rusty Newman DO Primary Care Provider [phone] Reason for Referral * Consultation (Routine) - Closed Specialty Diagnoses / Procedures Referred By Contmonroe t Referred To Contact Orthopaedic Surgery / MED-SURG/ORTHOPEDICS Diagnoses Primary osteoarthritis of knees, bilateral Rusty Newman DO [address] [place] [address] Phone: tel: fax: Bala Mckeon Jr., DO [address] [place] [address] Phone: tel: fax: Referral ID Status Reason Start Date Expiration Date V isits Requested Visits Authorized [id number] Closed Specialty Services Required 08/22/2023 08/21/2024 1 1 Encounter Details Date Type Department Care Team (Late st Contact Info) Description 08/22/2023 Orders Only [facility] Internal Medicine - Family Medicine [address] [place] [address] Rusty Newman DO [address] [place] [address] Primary osteoarthritis of knees, bilateral (Primary Dx) [...] How often do you attend chur or islam services? More than 4 times per year 11/27/2022 Do you belong to any clubs o r organizations such as bahai groups, unions, fraternal or athletic groups, or [...] Recorded Total Score 0 07/25/2023 [facility] of Occupat ional Health - Occupational Stress [...] Recorded Do you need help finding a [facility] career center and/or a training program? No [...] Medicine - Family Medicine [address] [place] [address] Scheduled Referrals Name Type Priority Associated Diagnoses [...] documented as of this encounter Care Teams Chinchilla Machine Operator Relationship Specialty Start Date End Date Rusty Newman DO [address] [place] [address] PCP - General 11/09/13 documented as of this encounter
--- OUTSIDE RECORDS SUMMARY | 2024-12-28 07:09 | XMS_ITS | Encounter Summary ---
Author Organization [facility] tem Address [facility] [id number] [address] [place] [address] Care Team Providers Care Mixer Machine Feeder Name Role Phone Rusty Newman Primary Care Provider [phone] Encounter Details Date Type Department Care Team (Late st Contact Info) Description 07/12/2023 Orders Only [facility] Internal Medicine - Family Medicine [address] [place] [id number] Lavern Rodriguez, MACHINE CASTINGS PLASTERER-ASSEMBLER DIELECTRIC HEATER [address] [place] [address] Trigger index finger of right hand Social [...] any clubs o r organizations such as yarsanism groups, unions, fraternal [...] Answer Date Recorded Total Score 0 07/01/2023 [facility] [place] of Occupat ional Health - Occupational Stress [...] Internal Medicine - Family Medicine [address] [place] [address] documented as of this encounter Procedures Procedure Name Priority Date/Time Associated Diagnosis Comments AMB REFERRAL TO ORTHOPEDIC SURGERY Routine 07/11/2023 9:07 AM EDT Trigger index finger of right hand documented in this encounter Results * Ambulatory referral to Orthopedic Surgery ([facility]) (07/11/2023 9:07 AM EDT) Lavern Rodriguez MACHINE CASTINGS PLASTERER-ASSEMBLER DIELECTRIC HEATER OUTPATIENT REFERRAL ORDERAB LES Final Result MANUALLY [...] documented as of this encounter Care Teams Mixer Machine Feeder Relationship Specialty Start Date End Date Rusty Newman DO [address] [facility] [place] [address] PCP - General 11/09/13 documented as of this encounter
--- OUTSIDE RECORDS SUMMARY | 2024-12-28 07:09 | XMS_ITS | Encounter Summary ---
Author Organization [facility] tem Address [facility] [id number] [address] [place] [address] Care Team Providers Care Run Lead Name Role Phone Rusty Newman Primary Care Provider [phone] Encounter Details Date Type Department Care Team (Late st Contact Info) Description 01/30/2024 Telephone [facility] Internal Medicine - Family Medicine [address] [place] [id number] Waldemar Montes CMA Social History Tobacco Use [...] often do you attend chur ch or buddhism services? More than 4 times per year 11/27/2022 Do you belong to any clubs o r organizations such as mormonism groups, unions, fraternal [...] Recorded Total Score 0 01/20/2024 [facility] of Occupat ional Health - Occupational [...] Recorded Do you need help finding a [facility], [facility] and/or a training program? No [...] able to book her infusion at the [facility] due to no order being there. I called the [facility] to verify this. Left message waiting for [...] do we have any confirmation that the [facility] has received the orders [...] Internal Medicine - Family Medicine [address] [place] [address] documented as of this encounter Visit Diagnoses [...] documented as of this encounter Care Teams Run Lead Relationship Specialty Start Date End Date Rusty Newman DO [address] [place] [address] PCP - General 11/09/13 documented as of this encounter
--- OUTSIDE RECORDS SUMMARY | 2024-12-28 07:09 | XMS_ITS | Encounter Summary ---
Author Organization [facility] [employer] [facility] tem Address [id number] [address] [place] [address] Care Team Providers Care Senior Foreman Name Role Phone Rusty Newman DO Primary Care Provider [phone] Encounter Details Date Type Department Care Team (Late st Contact Info) Description 06/18/2023 Orders Only [facility] Internal Medicine - Family Medicine [address] [place] [address] Rusty Newman DO [address] [place] [address] Social History Tobacco Use Types Packs/Day Years [...] Answer Date Recorded Total Score 0 05/30/2023 [facility] [place] of Occupat ional Health - Occupational Stress [...] Internal Medicine - Family Medicine [address] [place] [address] documented as of this encounter Visit Diagnoses [...] as of this encounter Care Teams Senior Foreman Relationship Specialty Start Date End Date Rusty Newman DO [address] [facility] [place] [address] PCP - General 11/09/13 documented as of this encounter
--- OUTSIDE RECORDS SUMMARY | 2024-12-28 07:09 | XMS_ITS | Encounter Summary ---
Author Organization [facility] tem Address [facility] [id number] [address] [place] [address] Care Team Providers Care Bundle Tier And Labeler Name Role Phone Rusty Newman DO Primary Care Provider [phone] Encounter Details Date Type Department Care Team (Late st Contact Info) Description 01/30/2024 Orders Only [facility] Internal Medicine - Family Medicine [address] [place] [address] Rusty Newman DO [address] [place] [address] Age-related osteoporosis without current pathological fracture (Primary [...] any clubs o r organizations such as rastafarian groups, unions, fraternal or athletic groups, or [...] Answer Date Recorded Total Score 0 01/20/2024 [facility] of Occupat ional Health [...] Internal Medicine - Family Medicine [address] [place] [address] documented as of this encounter Visit Diagnoses [...] documented as of this encounter Care Teams Bundle Tier And Labeler Relationship Specialty Start Date End Date Rusty Newman DO [address] [place] [address] PCP - General 11/09/13 documented as of this encounter
--- OUTSIDE RECORDS SUMMARY | 2024-12-28 07:09 | XMS_ITS | Encounter Summary ---
Author Organization [facility] [facility] tem Address [facility] [id number] [address] [place] [address] Care Team Providers Care Pageant Director Name Role Phone Rusty Newman DO Primary Care Provider [phone] Encounter Details Date Type Department Care Team (Late st Contact Info) Description 12/25/2023 Orders Only [facility] Internal Medicine - Family Medicine [address] [place] [address] Rusty Newman DO [address] [place] [address] Social History Tobacco Use Types Packs/Day Years [...] often do you attend chur ch or gnosticist services? More than 4 times per year 11/27/2022 Do you belong to any clubs o r organizations such as advent groups, unions, fraternal or athletic groups, or [...] Answer Date Recorded Total Score 0 12/24/2023 [facility] [place] of Occupat ional Health - Occupational Stress [...] Internal Medicine - Family Medicine [address] [place] [address] documented as of this encounter Visit Diagnoses [...] documented as of this encounter Care Teams Pageant Director Relationship Specialty Start Date End Date Rusty Newman DO [address] [place] [address] PCP - General 11/09/13 documented as of this encounter
[2024-12-28 07:35] VITALS: BP 168/73; PULSE 74; TEMP 36.6; O2SAT 99
[2024-12-28 08:05] VITALS: BP 206/83; PULSE 80; O2SAT 99
[2024-12-28 08:06] VITALS: BP 185/83; PULSE 78; O2SAT 99
[2024-12-28] MEDS: 0.9 % SODIUM CHLORIDE 10 ML SYRINGE - SALINE FLUSH INJ (08:09)
[2024-12-28] MEDS: BUPIVACAINE HCL 0.25% PF 25 MG/10 ML VIAL INJ (08:09)
[2024-12-28] MEDS: LIDOCAINE HCL 2% 400 MG/20 ML MDV 3 ML INJ (08:10)
[2024-12-28] MEDS: METHYLPREDNISOLONE ACETATE 80 MG/ML VIAL INJ (08:10)
[2024-12-28] MEDS: IOHEXOL 240 MG/ML - 10 ML VIAL 24 MG INJ (08:10)
--- NOTE | 2024-12-28 08:12 | W.PM.PROCNOT ---
Date of procedure: 12/28/24 Pre-op diagnosis: Pain due to lumbar stenosis with neurogenic claudication Post-op diagnosis: same as pre-op Procedure: Procedure: Bilateral L4-5 transforaminal epidural steroid injection Medications: Bupivacaine 0.25% 2cc, lidocaine 2% 1cc, depomedrol 80mg The patient was seen and examined in the preoperative holding area.? Informed consent was obtained and placed on the chart.? Patient was brought to the medical procedure unit and placed in the prone position where a timeout was completed verifying the correct patient, procedure site, position, and planned special equipment using sterile aseptic technique.? Under direct fluoroscopic visualization a 25-gauge Quincke tipped spinal needle was advanced at level left L4-5 to the designated neural foramen where contrast dye was injected to show adequate spread.? There was no evidence of vascular or adverse uptake.? Epidural spread was appreciated.? The above-mentioned injectate was then placed in a 1.5 mL aliquot preceded by negative aspiration.? The needle was removed. The same procedure, at the same level, was completed on the opposite side. ? Patient was taken to the postprocedural recovery area and monitored for an appropriate length of time before found suitable for discharge in the accompaniment of a responsible adult. Anesthesia: Local Surgeon: Delmer You Pathology: none sent Condition: stable Disposition: no change
--- NOTE | 2024-12-28 08:14 | PC.NURSE ---
PAIN 3/10 UPON D/C
== END 2024-12-28 08:13 | disposition home or self-care (01) ==
PROVIDERS: PCP Internal Medicine; Visit Provider Anesthesiology
DX: M48.062 Spinal stenosis, lumbar region with neurogenic claudication (principal); M54.50 Low back pain, unspecified
CPT/HCPCS: 64483; J0665; J1010; Q9966

== ENCOUNTER 2025-01-07 08:24 | Outpatient (OUT) | payer MEDICARE, SELFPAY ==
--- OUTSIDE RECORDS SUMMARY | 2025-01-07 08:29 | XMS_ITS | CCD ---
Author Organization [facility] Care Team Providers Care Gold Miner Blasting Name Role Phone LAKSHMIPATHY, NARENDRANATH Attending Unava [...] Unava ilable LAKSHMIPATHY, NARYANYATH Admitting Unava ilable YUHAElieser, DR VIVAS Primary [...] Unavailable YUHAS, SANGEETHA L Primary Care Unavailable Giedraitis , Delmer Mathias Attending Unavailable Giedraitis , Andrius Santiagoytdayday Attending Unavailable Giedraitis , Andri Vytdayday Attending Unavailable YUHAS, SANGEETHA L Referring Unavailable YUHAS, SANGEETHA L Primary Care Unavailable YUHAS, SANGEETHA L Referring Unavailable YUHAS, SANGEETHA L Primary Care Unavailable YUHAS, SANGEETHA L Attending Unavailable YUHAS, SANGEETHA L Referring Unavailable YUHAS, SANGEETHA L Primary Care Unavailable YUHAS, SANGEETHA L Primary Care Unavailable MARTIN GAUTHIER Attending Unavailable YUHAS, SANGEETHA L Attending Unavailable YUHAS, SANGEETHA L Referring Unavailable YUHAS, SANGEETHA L Primary Care Unavailable YUHAS, SANGEETHA L Referring Unavailable YUHAS, SANGEETHA L Primary Care Unavailable Allergies Allergy Classification Reported Allergen(s) Allergy Type Date of Onset Reaction(s) Facility (1 source) Aspirin Drug Allergy [facility] Repository (4 sources) Codeine; Translations: [CODEINE] Drug Allergy 8 [facility] Repository (1 source) Etodolac Drug Allergy [facility] Repository (4 sources) Iodine; Translations: [IODINE] Drug Allergy 8 [facility] Repository (4 sources) Latex; Translations: [LATEX] Drug allergy (disorder) 3 [facility] Repository (1 source) pregabalin Drug Allergy [facility] Rep[facility] (1 source) Sulfonamides (Antibiotic) Drug allergy (disorder) [facility] Rep[facility] (12 sources) Aluminum aspirin Drug Allergy 4 [facility] (20 sources) Codeine Drug Allergy 8 Rash, Unknown [facility] (15 sources) Etodolac; Translations: [ETODOLAC] Propensity to adverse reactions 3 [facility] (20 sources) Iodine Drug Allergy 8 Anaphylaxis [facility] (12 sources) Latex Propensity to adverse reactions 3 [facility] (15 sources) Penicillins; Translations: [PENICILLINS] Drug Intolerance 8 Hives [facility] (20 sources) Sulfonamides (Antibiotic) Drug Intolerance 8 Rash, Unknown [facility] (20 sources) Aspirin; Translations: [ASPIRIN, BUFFERED] Drug Allergy 8 [facility] (20 sources) Etodolac Drug Allergy 3 [facility] (20 sources) Latex Propensity to adverse reactions to drug 3 [facility] (16 sources) Penicillins Propensity to adverse reactions to drug 8 [facility] (10 sources) Penicillins Propensity to adverse reactions to drug 8 [facility] (3 sources) Sulfonamides (Antibiotic); Translations: [SULFA (SULFONAMIDE [...] 08/30/2024 Active meloxicam 15 mg oral tablet (6 sources) Nonsteroidal Anti-inflammatory Drug Start: 11-02-2024 take 1 tablet by mouth in the morning meloxicam (MOBIC) 15 mg tablet Indications: Degenerative lumbar spinal stenosis Take 1 tablet (15 mg total) by mouth in the morning. 30 tablet 11/02/2024 Active metoclopramide 10 mg oral tablet (7 sources) Dopamine-2 Receptor Antagonist Start: 11-02-2024 take [...] Active ondansetron 4 mg disintegrating oral tablet (20 sources) Serotonin-3 Receptor Antagonist Start: 12-24-2023 ondansetron [...] oral tablet (20 sources) Vitamin B12 Start: 05-20-2024 End: 11-18-2024 take 1 tablet by mouth in the morning cyanocobalamin 1000 MCG tablet Indications: Cobalamin deficiency TAKE 1 TABLET (1,000 MCG TOTAL) BY MOUTH IN THE MORNING 90 tablet 1 11/18/2024 Active Start: 11-07-2022 End: 01-20-2024 take 2 tablets by mouth once daily Cyanocobalamin ER 1000 MCG tablet controlled-release Take 2 tablets by mouth Daily 11/07/2022 01/20/2024 Discontinued (Therapy completed) Completed/Discontinued Medications Medication Drug Class(es) Dates Sig (Normalized) Sig (Original) adjuvant AS01B, PF,vial 1 of 2 (SHINGRIX ADJUVANT COMPONENT-PF) suspension (1 source) Start: 4 End: 4 adjuvant AS01B, PF,vial 1 of 2 (SHINGRIX [...] Problem Date Documented Da te Episodic/Chronic Abdominal pain (2 sources) Abdominal pain Onset: 5 Episodic Anxiety disorders (1 source) Anxiety disorder, unspecified; Translations: [ANXIETY DISORDER UNSPECIFIED] Onset: 3 Chronic Disorders of lipid metabolism (20 sources) Hyperlipidemia; Translations: [Hyperlipidemia, unspecified] Onset: 1 12-15-2020 Chronic Intestinal infection (2 sources) Viral gastroenteritis due to [place]-like agent; Translations: [Acute gastroenteropathy due to [place] agent] Onset: 5 11-02-2024 Episodic Mood disorders (20 sources) Depressive disorder; Translations: [Depressive disorder] Onset: 8 12-15-2020 Chronic Nausea and vomiting (3 sources) Nausea and vomiting; Translations: [Nausea with vomiting, unspecified] Onset: 4 12-24-2023 Episodic Nutritional deficiencies (5 sources) Vitamin D deficiency; Translations: [Vitamin D deficiency, unspecified] Onset: 4 05-19-2024 Chronic Osteoarthritis (20 sources) Osteoarthritis of left knee joint; Translations: [Unilateral primary osteoarthritis, left knee] Onset: 1 01-20-2024 Chronic Osteoporosis (20 sources) Senile osteoporosis; Translations: [Age-related osteoporosis without current pathological fracture] Onset: 3 12-31-2022 Chronic Other circulatory disease (1 source) Elevated blood pressure; Translations: [Elevated blood-pressure reading, without diagnosis of hypertension] 08-18-2024 Episodic Other circulatory disease (1 source) Elevated blood-pressure reading, without diagnosis of hypertension; Translations: [Elevated blood-pressure reading, without diagnosis of hypertension] Onset: 5 Episodic Other connective tissue disease (1 source) Other muscle spasm; Translations: [OTHER MUSCLE SPASM] Onset: 3 Episodic Other connective tissue disease (1 source) Pain in right foot; Translations: [Pain in right foot] 05-19-2024 Episodic Other connective tissue disease (2 sources) Nontraumatic complete rupture of rotator cuff of right shoulder; Translations: [Complete rotator cuff tear or rupture of right shoulder, not specified as traumatic] 09-15-2024 Episodic Other gastrointestinal disorders (2 sources) Diarrhea, unspecified; Translations: [Diarrhea, unspecified] Onset: 4 Episodic Other hereditary and degenerative nervous system conditions (1 source) Restless legs syndrome; Translations: [RESTLESS LEGS SYNDROME] Onset: 2 Chronic Other inflammatory condition of skin (2 [...] Onset: 3 Chronic Other non-traumatic joint disorders (2 sources) [...] (20 sources) Cystocele; Translations: [Cystocele, unspecified] Onset: 1 12-15-2020 Chronic Residual codes; unclassified (20 sources) Obstructive sleep apnea syndrome; Translations: [Obstructive sleep apnea (adult) (pediatric)] Onset: 1 12-15-2020 Chronic Spondylosis; intervertebral disc disorders; other back problems (20 sources) Intervertebral disc disorders with myelopathy, lumbar region; Translations: [Other spondylosis with radiculopathy, lumbar region] Onset: 8 Chronic Spondylosis; intervertebral disc disorders; other back problems (17 sources) Intervertebral disc disorders with radiculopathy, lumbar region; Translations: [Spinal stenosis, lumbar region without neurogenic claudication] Onset: 2 Episodic Thyroid disorders (20 sources) Hypothyroidism; Translations: [Hypothyroidism, unspecified] Onset: 1 05-19-2024 Chronic Unclassified (1 source) LOW BACK PAIN, UNSPECIFIED; Translations: [LOW BACK PAIN, UNSPECIFIED] Onset: 2 Unclassified (1 source) swollen right eye.Since sat 01/17 Onset: 4 Unclassified (1 source) Outpatient Infusion Onset: 4 Urinary tract infections (1 source) Acute cystitis without hematuria; Translations: [Acute cystitis without hematuria] Onset: 5 Episodic Past or Other Problems Problem Classification [...] Translations: [Hordeolum externum right upper eyelid] Onset: 01-20-2024 01-20-2024 Episodic Mood disorders (20 sources) Mood disorders Onset: 05-19-2024 Resolved: 11-02-2024 05-19-2024 Nutritional deficiencies (20 sources) Cobalamin deficiency; Translations: [Deficiency of other specified B group vitamins] Onset: 04-19-2021 05-19-2024 Episodic Other connective tissue disease (2 sources) Pain in right foot; Translations: [Pain in right foot] Onset: 05-19-2024 Episodic Other female genital disorders (20 sources) Leukoplakia of vulva; Translations: [Circumscribed scleroderma] Onset: 06-30-2018 12-15-2020 Episodic Other gastrointestinal disorders (1 source) Diarrhea; Translations: [Diarrhea, unspecified] 12-24-2023 Episodic Other inflammatory condition of skin (1 source) Lichen planus, unspecified; Translations: [Lichen planus, unspecified] Onset: 05-19-2024 Episodic Other skin disorders (20 sources) Alopecia; Translations: [Nonscarring hair loss, unspecified] Onset: 12-15-2020 12-15-2020 Episodic Unclassified (4 sources) Acute pain of right shoulder 09-15-2024 Results Test Name Value Interpretation Reference Range Facility ALBUMINon 01-04-2025 Albumin [Mass/Vol] 4.1 g/dL Normal 3.2-5.3 [facility] Comment on above: Performed By: #### 3 5365-6, 81403-0, BEATER ENGINEER HELPER, 8011-7 #### [facility] ([id number]) [address] [place] [address] CALCIUMon 01-04-2025 Calcium [Mass/Vol] 8.8 mg/dL Normal 8.5-10.5 [facility] Comment on above: Performed By: #### 3 5365-6, 17719-9, BEATER ENGINEER HELPER, 1750- #### [facility] ([id number]) [address], [address] [place] [address] CREATININE, SERUMon 01-05-20 Creatinine [Mass/Vol] 0.62 mg/dL Normal 0.40-1.00 [facility] Comment on above: Result Comment: METH OD TRACEABLE TO IDMS STANDARD Performed By: #### 3 5365-6, 16728-6, BEATER ENGINEER HELPER, 1750- #### [facility] ([id number]) [address], [address] [place] [address] EGFR (CKD-EPI) NON-RACE DEPENDENT >^90 Normal >=60 [facility] Comment on above: Result Comment: Repo rted eGFR is based on the CKD-EPI 2020 equation that does not use a race coefficient. Performed By: #### 3 5365-6, 12836-3, ENDY, 1750-10 #### [facility] ([id number]) [address], [address] [place] [address] VITAMIN D 25 HYDROXYon 01-04 VITAMIN D 25 HYD TOT 80.2 ng/mL Normal 30.0-100.0 [facility] Comment on above: Order Comment: Vitam in D status 25 [place] Vitamin D Deficiency <20 ng/mLInsufficiency 20-29 ng/mLSufficiency 30-100 ng/mLToxicity >100 ng/mLNOTE: A pediatric reference range has not been established by the fisheries specialist of this kit. The [place] [employer] recommends a Vitamin D level of = or >20ng/mL in infants and children. Performed By: #### 3 5365-6, 87359-7, BEATER ENGINEER HELPER, 1750- #### [facility] ([id number]) [address] [place] [address] XR SPINE LUMBAR 2 OR 3 VWSon [...] Nugent MD on 11/05/2024 10:41 PM Normal [facility] CBC WITH AUTO DIFFERENTIALon 10-23-2024 BASOPHILS ABSOLUTE COUNT (10*3/UL) BY AUTOMATED COUNT 0.0 10*3/uL Normal 0.0-0.2 [facility] Comment on above: Performed By: #### C BCA #### [facility] ([address] [address] VIR BASOPHILS RELATIVE PERCENT BY AUTOMATED COUNT 0.2 % Normal [facility] Comment on above: Performed By: #### C BCA #### [facility] ([address] [address] VIR CELLAVISION DIFFERENTIAL TYPE AUTOMATED DIFFERENTIAL Normal [facility] Comment on above: Performed By: #### C BCA #### [facility] ([address] [address] VIR Eosinophils (Bld) [#/Vol] 0.0 10*3/uL Normal 0.0-0.4 [facility] Comment on above: Performed By: #### C BCA #### [facility] ([address] [address] VIR EOSINOPHILS RELATIVE PERCENT BY AUTOMATED COUNT 0.2 % Normal [facility] Comment on above: Performed By: #### C BCA #### [facility] ([address] [address] VIR Erythrocyte distribution width (RBC) [Ratio] 15.0 % Normal 11.5-15 [facility] Comment on above: Performed By: #### C BCA #### [facility] ([address] [address] VIR Hematocrit (Bld) [Volume fraction] 37.5 % Normal 35-47 [facility] Comment on above: Performed By: #### C BCA #### [facility] ([address] [address] VIR Hemoglobin (Bld) [Mass/Vol] 12.4 g/dL Normal 11.7-15.5 [facility] Comment on above: Performed By: #### C BCA #### [facility] ([address] [address] VIR LYMPHOCYTES ABSOLUTE COUNT (10*3/UL) BY AUTOMATED COUNT 0.8 10*3/uL Low 1.0-3.5 [facility] Comment on above: Performed By: #### C BCA #### [facility] ([address] [address] VIR LYMPHOCYTES RELATIVE PERCENT BY AUTOMATED COUNT 5.8 % Normal [facility] Comment on above: Performed By: #### C BCA #### [facility] ([address] [address] VIR MCH (RBC) [Entitic mass] 28.4 pg Normal 27-34 [facility] Comment on above: Performed By: #### C BCA #### [facility] ([address] [address] VIR MCHC (RBC) [Mass/Vol] 33.2 g/dL Normal 32-36 [facility] Comment on above: Performed By: #### C BCA #### [facility] ([address] [address] VIR MCV (RBC) [Entitic vol] 86 fL Normal 80-100 [facility] Comment on above: Performed By: #### C BCA #### [facility] ([address] [address] VIR MONOCYTES ABSOLUTE COUNT (10*3/UL) BY AUTOMATED COUNT 0.6 10*3/uL Normal 0.0-0.9 [facility] Comment on above: Performed By: #### C BCA #### [facility] ([address] [address] VIR MONOCYTES RELATIVE PERCENT BY AUTOMATED COUNT 4.1 % Normal [facility] Comment on above: Performed By: #### C BCA #### [facility] ([address] [address] VIR NEUTROPHILS ABSOLUTE COUNT BY AUTOMATED COUNT 12.1 10*3/uL High 1.5-6.6 [facility] Comment on above: Performed By: #### C BCA #### [facility] ([address] [address] VIR NEUTROPHILS RELATIVE PERCENT BY AUTOMATED COUNT 89.7 % Normal [facility] Comment on above: Performed By: #### C BCA #### [facility] ([address] [place] [address] VIR Platelet mean volume (Bld) [Entitic vol] 9.2 fL Normal 7-12 [facility] Comment on above: Performed By: #### C BCA #### [facility] ([address] [address] VIR Platelets (Bld) [#/Vol] 275 10*3/uL Normal 150-450 [facility] Comment on above: Performed By: #### C BCA #### [facility] ([address] [place] [address] VIR RBC COUNT 4.38 X10E12/L Normal 3.8-5.2 [facility] Comment on above: Performed By: #### C BCA #### [facility] ([place] [address] [place] [address] VIR WBC (Bld) [#/Vol] 13.4 10*3/uL High 4-11 [facility] Comment on above: Performed By: #### C BCA #### [facility] ([address] [place] [address] VIR COMPREHENSIVE METABOLIC PANE Ulices 10-23-2024 Albumin [Mass/Vol] 4.4 g/dL Normal 3.2-5.3 [facility] Comment on above: Performed By: #### C MP #### [facility] ([address] [place] [address] VIR ALP [Catalytic activity/Vol] 59 U/L Normal 39-130 [facility] Comment on above: Performed By: #### C MP #### [facility] ([address] [place] [address] VIR ALT [Catalytic activity/Vol] 16 U/L Normal <=31 [facility] Comment on above: Performed By: #### C MP #### [facility] ([place] [address] [place] [address] VIR Anion gap [Moles/Vol] 9 mmol/L Normal 5-15 [facility] Comment on above: Performed By: #### C MP #### [facility] ([address] [place] [address] VIR AST [Catalytic activity/Vol] 18 U/L Normal <=41 [facility] Comment on above: Performed By: #### C MP #### [facility] ([place] [address] [place] [address] VIR Bilirubin [Mass/Vol] 0.6 mg/dL Normal 0.3-1.2 [facility] Comment on above: Performed By: #### C MP #### [facility] ([place] [address] [place] [address] VIR Calcium [Mass/Vol] 8.6 mg/dL Normal 8.5-10.5 [facility] Comment on above: Performed By: #### C MP #### [facility] ([address] [place] [address] VIR Chloride [Moles/Vol] 106 mmol/L Normal 98-109 [facility] Comment on above: Performed By: #### C MP #### [facility] ([address] [place] [address] VIR CO2 [Moles/Vol] 23 mmol/L Normal 22-32 [facility] Comment on above: Performed By: #### C MP #### [facility] ([address] [place] [address] VIR Creatinine [Mass/Vol] 0.62 mg/dL Normal 0.40-1.00 [facility] Comment on above: Result Comment: METH OD TRACEABLE TO IDMS STANDARD Performed By: #### C MP #### [facility] ([address] [place] [address] VIR EGFR (CKD-EPI) NON-RACE DEPENDENT >^90 Normal >=60 [facility] Comment on above: Result Comment: eGFR not reported due to non-numeric value for Creatinine. Reported eGFR is based on the CKD-EPI 2021 equation that does not use a race coefficient. Performed By: #### C MP #### [facility] ([place] [address] [place] [address] VIR Glucose [Mass/Vol] 142 mg/dL High 65-99 [facility] Comment on above: Performed By: #### C MP #### [facility] ([facility]) [address] [address] VIR Potassium [Moles/Vol] 3.7 mmol/L Normal 3.5-5.0 [facility] Comment on above: Performed By: #### C MP #### [facility] ([facility]) [address] [place] [address] [place] [address] VIR Protein [Mass/Vol] 7.4 g/dL Normal 6.0-8.0 [facility] Comment on above: Performed By: #### C MP #### [facility] ([address] [place] [address] VIR Sodium [Moles/Vol] 138 mmol/L Normal 134-146 [facility] Comment on above: Performed By: #### C MP #### [facility] ([address] [place] [address] VIR Urea nitrogen [Mass/Vol] 18 mg/dL Normal 5-27 [facility] Comment on above: Performed By: #### C MP #### [facility] ([address] [place] [address] ABDOMEN AND PELVIS WO CON Ton [...] Mcmanus MD on 10/23/2024 10:12 AM Normal [facility] GI PANEL STOOL PATHOGEN PANE Ulices 10-23-2024 ADENOVIRUS Not detected Normal Not Detected [facility] Comment on above: Performed By: #### 3 5365-6, 02776-4, BEATER ENGINEER HELPER, 175-7 #### [facility] ([id number]) [address], [address] [place] [address] AGGREGATIVE E COLI Not detected Normal Not Detected [facility] Comment on above: Performed By: #### 3 5365-6, 48661-7, BEATER ENGINEER HELPER, 175-7 #### [facility] ([id number]) [address], [address] [place] [address] ASTROVIRUS Not detected Normal Not Detected [facility] Comment on above: Performed By: #### 3 5365-6, 57620-3, BEATER ENGINEER HELPER, 175-7 #### [facility] ([id number]) [address], [address] [place] [address] CAMPYLOBACTER Not detected Normal Not Detected [facility] Comment on above: Performed By: #### 3 5365-6, 81641-7, BEATER ENGINEER HELPER, 1750-7 #### [facility] ([id number]) [address], [address] [place] [address] CRYPTOSPORIDIUM Not detected Normal Not Detected [facility] Comment on above: Performed By: #### 3 5365-6, 82253-8, BEATER ENGINEER HELPER, 175-7 #### [facility] ([id number]) [address], [address] [place] [address] CYCLOSPORA Not detected Normal Not Detected [facility] Comment on above: Performed By: #### 3 5365-6, 16501-9, BEATER ENGINEER HELPER, 1751-7 #### [facility] ([id number]) [address], [address] [place] [address] E HISTOLYTICA Not detected Normal Not Detected [facility] Comment on above: Performed By: #### 3 5365-6, 22223-6, BEATER ENGINEER HELPER, 1751-7 #### [facility] ([id number]) [address], [address] [place] [address] GIARDIA LAMBLIA Not detected Normal Not Detected [facility] Comment on above: Performed By: #### 3 5365-6, 83228-4, BEATER ENGINEER HELPER, 175-7 #### [facility] ([id number]) [address], [address] [place] [address] NOROVIRUS Detected Abnormal Not Detected [facility] Comment on above: Result Comment: Dete cts the following: Norovirus Genogroups I, II. The fisheries specialist has reported an increase in false positive Norovirus results. If the positive test is inconsistent with clinical presentation, a secondary method should be used to confirm the results. Performed By: #### 3 5365-6, 20365-0, BEATER ENGINEER HELPER, 175-7 #### [facility] ([id number]) [address], [address] [place] [address] PATHOGENIC E COLI Not detected Normal Not Detected [facility] Comment on above: Performed By: #### 3 5365-6, 95830-5, BEATER ENGINEER HELPER, 175-7 #### [facility] ([id number]) [address], [address] [place] [address] PLESIOMONAS Not detected Normal Not Detected [facility] Comment on above: Performed By: #### 3 5365-6, 64108-9, BEATER ENGINEER HELPER, 175-7 #### [facility] ([id number]) [address], [address] [place] [address] ROTAVIRUS A Not detected Normal Not Detected [facility] Comment on above: Performed By: #### 3 5365-6, 71913-0, BEATER ENGINEER HELPER, 1750- #### [facility] ([id number]) [address], [address] [place] [address] SALMONELLA Not detected Normal Not Detected [facility] Comment on above: Performed By: #### 3 5365-6, 86564-5, BEATER ENGINEER HELPER, 1750- #### [facility] ([id number]) [address], [address] [place] [address] SAPOVIRUS Not detected Normal Not Detected [facility] Comment on above: Performed By: #### 3 5365-6, 28279-6, BEATER ENGINEER HELPER, 1750- #### [facility] ([id number]) [address], [address] [place] [address] SHIGA TOXIN E COLI Not detected Normal Not Detected [facility] Comment on above: Performed By: #### 3 5365-6, 31430-7, BEATER ENGINEER HELPER, 1750- #### [facility] ([id number]) [address], [address] [place] [address] SHIGELLA-E COLI Not detected Normal Not Detected [facility] Comment on above: Performed By: #### 3 5365-6, 20738-9, BEATER ENGINEER HELPER, 1750-10 #### [facility] ([id number]) [address], [address] [place] [address] TOXIGENIC E COLI Not detected Normal Not Detected [facility] Comment on above: Performed By: #### 3 5365-6, 49534-5, BEATER ENGINEER HELPER, 1750- #### [facility] ([id number]) [address], [address] [place] [address] VIBRIO Not detected Normal Not Detected [facility] Comment on above: Performed By: #### 3 5365-6, 69394-0, BEATER ENGINEER HELPER, 1750- #### [facility] ([id number]) [address], [address] [place] [address] VIBRIO CHOLERAE Not detected Normal Not Detected [facility] Comment on above: Performed By: #### 3 5365-6, 11167-6, BEATER ENGINEER HELPER, 1751-7 #### [facility] ([id number]) [address], [address] [place] [address] Y. ENTEROCOLITICA Not detected Normal Not Detected [facility] Comment on above: Performed By: #### 3 5365-6, 74010-2, BEATER ENGINEER HELPER, 175-7 #### [facility] ([id number]) [address], [address] [place] [address] LIPASEon 10-23-2024 Lipase [Catalytic activity/Vol] 28 U/L Normal 17-40 [facility] Comment on above: Performed By: #### L IPA #### [facility] ([address] [place] [address] VIR MAGNESIUMon 10-23-2024 Magnesium [Mass/Vol] 1.8 mg/dL Normal 1.8-2.6 [facility] Comment on above: Performed By: #### M G #### [facility] ([place] [address] [place] [address] VIR POCT NURSING URINE MACROSCOP IC UAon 10-23-2024 BILIRUBIN STUART Negative Normal Negative [facility] Comment on above: Performed By: #### N UM #### [facility] ([place] [address] [place] [address] VIR BLOOD/HGB STUART Trace Abnormal Negative [facility] Comment on above: Performed By: #### N UM #### [facility] ([place] [address] [place] [address] VIR GLUCOSE STUART Negative Normal Negative [facility] Comment on above: Performed By: #### N UM #### [facility] ([facility]) [address] [place] [address] VIR KETONES STUART 15 mg/dL Abnormal Negative [facility] Comment on above: Performed By: #### N UM #### [facility] ([facility]) [facility] [place] [address] VIR LEUKOCYTE ESTERASE STUART Negative Normal Negative [facility] Comment on above: Performed By: #### N UM #### [facility] ([place] [address] [place] [address] VIR NITRITE STUART Positive Abnormal Negative [facility] Comment on above: Performed By: #### N UM #### [facility] ([address] [place] [address] VIR PH STUART 7.0 Normal 5.0, 6.0, 6.5, 7.0, 7.5, 8.0, 8.5, 5.5 [facility] Comment on above: Performed By: #### N UM #### [facility] ([place] [address] [place] [address] VIR PROTEIN STUART Trace Abnormal Negative [facility] Comment on above: Performed By: #### N UM #### [facility] ([address] [place] [address] VIR SPECIFIC GRAVITY STUART 1.020 Normal 1.010, 1.015, 1.020, 1.025 [facility] Comment on above: Performed By: #### N UM #### [facility] ([address] [place] [address] VIR UROBILINOGEN STUART 0.2 E.U./dL Normal [facility] Comment on above: Performed By: #### N UM #### [facility] ([place] [address] [place] [address] VIR SARS/FLU A+B/RSV BY NAAT/MOL ECULAR (M4RT COLLECTION TUBE)on 10-23-2024 SARS/FLU A+B/RSV BY NAAT/MOLECULAR (M4RT COLLECTION TUBE) FLU A PCR Negative FLU B PCR Negative RSV BY PCR Negative SARS COV 2 BY PCR Not Detected Normal Not Detected [facility] Comment on above: Order Comment: The [employer] Xpress SARS-CoV-2/Flu/RSV Plus test is a rapid, [...] operators who are performing tests using either [employer] or [employer] systems and is limited to laboratories that [...] resolved with specimen repeat.Fact Sheet for Healthcare Providers:https://www.fda.gov/media/365633/downloadFact Sheet for Patients:https://www.fda.gov/media/188972/download Performed By: #### 3 5365-6, 26751-5, [facility], 1751-7 #### [facility] ([id number]) [address], [address] [place] [address] No Panel Informationon 10-21 Angella campos, DO 10/31/2024 4:18 PM L Inj/Asp: R subacromial bursa on 10/21/2024 10:48 AM Indications: pain Details: 21 G needle, posterior approach Medications: 40 mg methylPREDNISolone acetate 40 MG/ML Outcome: tolerated well, no immediate complications SKIN PREPPED WITH ISOPROPYL ALCOHOL Procedure, treatment alternatives, risks and benefits explained, specific risks discussed. Consent was given by the patient. [employer] [facility] No Panel Informationon 09-09 Angella campos, DO 09/15/2024 7:30 AM L Inj/Asp: R subacromial bursa on 09/09/2024 10:26 AM Indications: pain Details: 21 G needle, posterior approach Medications: 40 mg methylPREDNISolone acetate 40 MG/ML Outcome: tolerated well, no immediate complications Procedure, treatment alternatives, risks and benefits explained, specific risks discussed. Consent was given by the patient. 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 [employer] Radiology Study observation (narrative) [facility] [employer] COMPREHENSIVE METABOLIC PANE Ulices 08-18-2024 Albumin [Mass/Vol] 4.3 g/dL Normal 3.2-5.3 [facility] Comment on above: Performed By: #### C MP #### [facility] ([facility]) [address] [place] [address] VIR ALP [Catalytic activity/Vol] 56 U/L Normal 39-130 [facility] Comment on above: Performed By: #### C MP #### [facility] ([facility]) [address] [place] [address] VIR ALT [Catalytic activity/Vol] 15 U/L Normal <=31 [facility] Comment on above: Performed By: #### C MP #### [facility] ([facility]) [address] [place] [address] VIR Anion gap [Moles/Vol] 10 mmol/L Normal 5-15 [facility] Comment on above: Performed By: #### C MP #### [facility] ([facility]) [address] [place] [address] VIR AST [Catalytic activity/Vol] 18 U/L Normal <=41 [facility] Comment on above: Performed By: #### C MP #### [facility] ([facility]) [address] [place] [address] VIR Bilirubin [Mass/Vol] 0.3 mg/dL Normal 0.3-1.2 [facility] Comment on above: Performed By: #### C MP #### [facility] ([facility]) [address] [place] [address] VIR Calcium [Mass/Vol] 9.3 mg/dL Normal 8.5-10.5 [facility] Comment on above: Performed By: #### C MP #### [facility] ([facility]) [address] [place] [address] VIR Chloride [Moles/Vol] 102 mmol/L Normal 98-109 [facility] Comment on above: Performed By: #### C MP #### [facility] ([facility]) [address] [place] [address] VIR CO2 [Moles/Vol] 28 mmol/L Normal 22-32 [facility] Comment on above: Performed By: #### C MP #### [facility] ([facility]) [address] [place] [address] VIR Creatinine [Mass/Vol] 0.59 mg/dL Normal 0.40-1.00 [facility] Comment on above: Result Comment: METH OD TRACEABLE TO IDMS STANDARD Performed By: #### C MP #### [facility] ([facility]) [address] [place] [address] VIR EGFR (CKD-EPI) NON-RACE DEPENDENT >^90 Normal >=60 [facility] Comment on above: Result Comment: Repo rted eGFR is based on the CKD-EPI 2020 equation that does not use a race coefficient. Performed By: #### C MP #### [facility] ([facility]) [address] [place] [address] VIR Glucose [Mass/Vol] 82 mg/dL Normal 65-99 [facility] Comment on above: Performed By: #### C MP #### [facility] ([facility]) [address] [place] [address] VIR Potassium [Moles/Vol] 3.7 mmol/L Normal 3.5-5.0 [facility] Comment on above: Performed By: #### C MP #### [facility] ([facility]) [address] [place] [address] VIR Protein [Mass/Vol] 6.7 g/dL Normal 6.0-8.0 [facility] Comment on above: Performed By: #### C MP #### [facility] ([facility]) [address] [place] [address] VIR Sodium [Moles/Vol] 140 mmol/L Normal 134-146 [facility] Comment on above: Performed By: #### C MP #### [facility] ([facility]) [address] [place] [address] VIR Urea nitrogen [Mass/Vol] 17 mg/dL Normal 5-27 [facility] Comment on above: Performed By: #### C MP #### [facility] ([facility]) [address] [place] [address] VIR LIPID PROFILEon 08-18-2024 Cholesterol [Mass/Vol] 153 mg/dL Normal 150-200 [facility] Comment on above: Performed By: #### L IPR #### [facility] ([facility]) [address] [place] [address] VIR Cholesterol in HDL [Mass/Vol] 54 mg/dL Normal >39 [facility] Comment on above: Result Comment: HDL <40 mg/dL - High Risk HDL > or = 40mg/dL- Desirable HDL >60 mg/dL - Negative Risk Performed By: #### L IPR #### [facility] ([facility]) [address] [place] [address] VIR Cholesterol in LDL [Mass/Vol] 75 mg/dL Normal <130 [facility] Comment on above: Result Comment: LDL <100 mg/dL - Desirable LDL >160 mg/dL - High Risk Performed By: #### L IPR #### [facility] ([facility]) [address] [place] [address] VIR CHOLESTEROL:HDL 2.8 Normal 1.0-5.0 [facility] Comment on above: Performed By: #### L IPR #### [facility] ([facility]) [address] [place] [address] VIR Triglyceride [Mass/Vol] 120 mg/dL Normal 27-150 [facility] Comment on above: Performed By: #### L IPR #### [facility] ([facility]) [address] [place] [address] VIR VERY LOW LIPOPROTEIN 24 mg/dL Normal 0-30 [facility] Comment on above: Performed By: #### L IPR #### [facility] ([facility]) [address] [place] [address] VIR XR FOOT RT MIN 3 VWSon [...] Perez MD on 05/23/2024 9:39 PM Normal [facility] CBC AND AUTO DIFFon 05-19-19 25 ABSOLUTE BASOPHIL 0.0 X10E9/L Normal 0.0-0.[address] [facility] Comment on above: Performed By: #### C BCA, CMP, THYR, 2131-12, 99969-3 #### [facility] ([id number]) [address], [address] [place] [address] ABSOLUTE NEUTROPHIL 4.4 X10E9/L Normal 1.5-6.6 [facility] Comment on above: Performed By: #### C BCA, CMP, THYR, 2131-12, 31386-7 #### [facility] ([id number]) [address], [address] [place] [address] Basophils/100 WBC (Bld) 0.2 % Normal [facility] Comment on above: Performed By: #### C BCA, CMP, THYR, 2131-12, 88138-7 #### [facility] ([id number]) [address], [address] [place] [address] Eosinophils (Bld) [#/Vol] 0.1 10*3/uL Normal 0.0-0.4 [facility] Comment on above: Performed By: #### C BCA, CMP, THYR, 2131-12, 96131-3 #### [facility] ([id number]) [address] [place] [address] Eosinophils/100 WBC (Bld) 1.2 % Normal [facility] Comment on above: Performed By: #### C BCA, CMP, THYR, 2131-12, 22969-6 #### [facility] ([id number]) [address] [place] [address] Erythrocyte distribution width (RBC) [Ratio] 14.9 % Normal 11.5-15.0 [facility] Comment on above: Performed By: #### C BCA, CMP, THYR, 2131-12, 20803-3 #### [facility] ([id number]) [address] [place] [address] Hematocrit (Bld) [Volume fraction] 34.6 % Low 35-47 [facility] Comment on above: Performed By: #### C BCA, CMP, THYR, 2131-12, 89335-6 #### [facility] ([id number]) [address], [address] [place] [address] Hemoglobin (Bld) [Mass/Vol] 11.2 g/dL Low 11.7-15.5 [facility] Comment on above: Performed By: #### C BCA, CMP, THYR, 2131-12, 69619-1 #### [facility] ([id number]) [address] [place] [address] Lymphocytes (Bld) [#/Vol] 2.5 10*3/uL Normal 1.0-3.5 [facility] Comment on above: Performed By: #### C BCA, CMP, THYR, 2131-12, 64526-2 #### [facility] ([id number]) [address] [place] [address] Lymphocytes/100 WBC (Bld) 33.7 % Normal [facility] Comment on above: Performed By: #### C BCA, CMP, THYR, 2131-12, 97369-5 #### [facility] ([id number]) [address] [place] [address] MCH (RBC) [Entitic mass] 27.7 pg Normal 27-34 [facility] Comment on above: Performed By: #### C BCA, CMP, THYR, 2131-12, 49404-4 #### [facility] ([id number]) [address] [place] [address] MCHC (RBC) [Mass/Vol] 32.4 g/dL Normal 32-36 [facility] Comment on above: Performed By: #### C BCA, CMP, THYR, 2131-12, 43627-7 #### [facility] ([id number]) [address], [facility] [address] [place] [address] MCV (RBC) [Entitic vol] 86 fL Normal 80-100 [facility] Comment on above: Performed By: #### C BCA, CMP, THYR, 2131-12, #### [facility] ([id number]) [address] [place] [address] Monocytes (Bld) [#/Vol] 0.4 10*3/uL Normal 0-0.9 [facility] Comment on above: Performed By: #### C BCA, CMP, THYR, 2131-12, 47157-9 #### [facility] ([id number]) [address] [place] [address] Monocytes/100 WBC (Bld) 5.8 % Normal [facility] Comment on above: Performed By: #### C BCA, CMP, THYR, 2131-12, 39592-9 #### [facility] ([id number]) [address] [place] [address] Neutrophils/100 WBC (Bld) 59.1 % Normal [facility] Comment on above: Performed By: #### C BCA, CMP, THYR, 2131-12, 30631-0 #### [facility] ([id number]) [address] [place] [address] Platelet mean volume (Bld) [Entitic vol] 9.4 fL Normal 7-12 [facility] Comment on above: Performed By: #### C BCA, CMP, THYR, 2131-12, 64970-5 #### [facility] ([id number]) [address] [place] [address] Platelets (Bld) [#/Vol] 242 10*3/uL Normal 150-450 [facility] Comment on above: Performed By: #### C BCA, CMP, THYR, 2131-12, 44098-2 #### [facility] ([id number]) [address], [facility] [address] [place] [address] RBC COUNT 4.04 X10E12/L Normal 3.80-5.20 [facility] Comment on above: Performed By: #### C BCA, CMP, THYR, 2131-12, 49193-9 #### [facility] ([id number]) [address] [place] [address] WBC (Bld) [#/Vol] 7.5 10*3/uL Normal 4.0-11.[address] [facility] Comment on above: Performed By: #### C BCA, CMP, THYR, 2131-12, 83002-1 #### [facility] ([id number]) [address] [place] [address] COMPREHENSIVE METABOLIC PANE Ulices 05-19-2024 Albumin [Mass/Vol] 4.3 g/dL Normal 3.2-5.[address] [facility] Comment on above: Performed By: #### C BCA, CMP, THYR, 2131-12, 49886-3 #### [facility] ([id number]) [address] [place] [address] ALP [Catalytic activity/Vol] 51 U/L Normal 39-130 [facility] Comment on above: Performed By: #### C BCA, CMP, THYR, 2131-12, 81204-2 #### [facility] ([id number]) [address] [place] [address] ALT [Catalytic activity/Vol] 10 U/L Normal 0-31 [facility] Comment on above: Performed By: #### C BCA, CMP, THYR, 2131-12, 79582-0 #### [facility] ([id number]) [address] [place] [address] Anion gap [Moles/Vol] 8 mmol/L Normal 5-15 [facility] Comment on above: Performed By: #### C BCA, CMP, THYR, 2131-12, 22425-3 #### [facility] ([id number]) [address] [place] [address] AST [Catalytic activity/Vol] 17 U/L Normal 0-41 [facility] Comment on above: Performed By: #### C BCA, CMP, THYR, 2131-12, 83527-8 #### [facility] ([id number]) [address] [place] [address] Bilirubin [Mass/Vol] 0.4 mg/dL Normal 0.3-1.2 [facility] Comment on above: Performed By: #### C BCA, CMP, THYR, 2131-12, 82572-1 #### [facility] ([id number]) [address] [place] [address] Calcium [Mass/Vol] 8.8 mg/dL Normal 8.5-10.[address] [facility] Comment on above: Performed By: #### C BCA, CMP, THYR, 2131-12, 63763-8 #### [facility] ([id number]) [address] [place] [address] Chloride [Moles/Vol] 104 mmol/L Normal 98-109 [facility] Comment on above: Performed By: #### C BCA, CMP, THYR, 2131-12, 29521-1 #### [facility] ([id number]) [address] [place] [address] CO2 [Moles/Vol] 28 mmol/L Normal 22-32 [facility] Comment on above: Performed By: #### C BCA, CMP, THYR, 2131-12, 09144-5 #### [facility] ([id number]) [address] [place] [address] Creatinine [Mass/Vol] 0.93 mg/dL Normal 0.40-1.00 [facility] Comment on above: Result Comment: METH OD TRACEABLE TO IDMS STANDARD Performed By: #### C BCA, CMP, THYR, 2131-12, 40106-8 #### [facility] ([id number]) [address] [place] [address] GFR/1.73 sq M.predicted among non-blacks MDRD (S/P/Bld) [Vol rate/Area] 64 mL/min/{1.73_m2} Normal >59 [facility] Comment on above: Result Comment: Reported eGFR is based on the CKD-EPI 2020 equation that does not use a race coefficient. Performed By: #### C BCA, CMP, THYR, 2131-12, 47008-8 #### [facility] ([id number]) [address] [place] [address] Glucose [Mass/Vol] 87 mg/dL Normal 65-[address] [facility] Comment on above: Performed By: #### C BCA, CMP, THYR, 2131-12, 11856-8 #### [facility] ([id number]) [address] [place] [address] Potassium [Moles/Vol] 4.1 mmol/L Normal 3.5-5.0 [facility] Comment on above: Performed By: #### C BCA, CMP, THYR, 2131-12, 84823-9 #### [facility] ([id number]) [address] [place] [address] Protein [Mass/Vol] 6.6 g/dL Normal 6.0-8.[address] [facility] Comment on above: Performed By: #### C BCA, CMP, THYR, 2131-12, 11232-1 #### [facility] ([id number]) [address] [place] [address] Sodium [Moles/Vol] 140 mmol/L Normal 134-[address] [facility] Comment on above: Performed By: #### C BCA, CMP, THYR, 2131-12, 79207-9 #### [facility] ([id number]) [address] [place] [address] Urea nitrogen [Mass/Vol] 20 mg/dL Normal 5-27 [facility] Comment on above: Performed By: #### C BCA, CMP, THYR, 2131-12, 19167-0 #### [facility] ([id number]) [address] [place] [address] THYROID PROFILEon 05-19-2024 Free T4 [Mass/Vol] 0.95 ng/dL Normal 0.61-1.[address] [facility] Comment on above: Performed By: #### C BCA, CMP, THYR, 2131-12, 01511-1 #### [facility] ([id number]) [address] [address] [place] [address] TSH 0.60 uIU/mL Normal 0.49-4.67 [facility] Comment on above: Performed By: #### C BCA, CMP, THYR, 2131-12, 67932-3 #### [facility] ([id number]) [address], [address] [place] [address] VITAMIN B12on 05-19-2024 Cobalamin (Vitamin B12) [Mass/Vol] 319 pg/mL Normal 180-914 [facility] Comment on above: Performed By: #### C BCA, CMP, THYR, 2131-12, 41338-5 #### [facility] ([id number]) [address], [address] [place] [address] Vitamin D+Metabolites [Mass/ Vol]on 05-19-2024 VITAMIN D 25 HYD TOT 97.5 ng/mL Normal 30-100 [facility] Comment on above: Result Comment: Vitamin D status 25 [place] Vitamin D Deficiency <20 ng/mL Insufficiency 20-29 ng/mL Sufficiency 30-100 ng/mL Toxicity >100 ng/mL NOTE: A pediatric reference range has not been established by the fisheries specialist of this kit. The [employer] recommends a Vitamin D level of = or >20ng/mL in infants and children. Performed By: #### C BCA, CMP, THYR, 2131-12, 12474-1 #### [facility] ([id number]) [address], [address] [place] [address] ALBUMINon 02-05-2024 Albumin [Mass/Vol] 4.1 g/dL Normal 3.2-5.3 [facility] Comment on above: Performed By: #### 3 5365-6, 18762-6, BEATER ENGINEER HELPER, 175-7 #### [facility] ([id number]) [address], [address] [place] [address] CALCIUMon 02-05-2024 Calcium [Mass/Vol] 8.9 mg/dL Normal 8.5-10.5 [facility] Comment on above: Performed By: #### 3 5365-6, 87330-2, BEATER ENGINEER HELPER, 1751-7 #### [facility] ([id number]) [address], [address] [place] [address] CREATININEon 02-05-2024 Creatinine [Mass/Vol] 0.70 mg/dL Normal 0.40-1.00 [facility] Comment on above: Result Comment: METH OD TRACEABLE TO IDMS STANDARD Performed By: #### 3 5365-6, 76044-6, BEATER ENGINEER HELPER, 1750-10 #### [facility] ([id number]) [address] [facility] [address] [place] [address] GFR/1.73 sq M.predicted among non-blacks MDRD (S/P/Bld) [Vol rate/Area] 90 mL/min/{1.73_m2} Normal >59 [facility] Comment on above: Result Comment: Reported eGFR is based on the CKD-EPI 2020 equation that does not use a race coefficient. Performed By: #### 3 5365-6, 34072-0, BEATER ENGINEER HELPER, 1750-10 #### [facility] ([id number]) [address] [address] Vitamin D+Metabolites [Mass/ Vol]on 02-05-2024 VITAMIN D 25 HYD TOT 78.5 ng/mL Normal 30-100 [facility] Comment on above: Result Comment: Vitamin D status 25 [place] Vitamin D Deficiency <20 ng/mL Insufficiency 20-29 ng/mL Sufficiency 30-100 ng/mL Toxicity >100 ng/mL NOTE: A pediatric reference range has not been established by the fisheries specialist of this kit. The [place] [employer] recommends a Vitamin D level of = or >20ng/mL in infants and children. Performed By: #### 3 5365-6, 03697-0, BEATER ENGINEER HELPER, 1750-10 #### [facility] ([id number]) [address], [facility] [address] [place] [address] XR Knee - left 1 or 2 Viewso n 01-08-2024 Imaging Result: AP and lateral views of left knee showed severe varus deformity with [id number] articulation to the medial joint line, flattening [...] joint disease left knee with varus deformity [facility] XR Knee - left 1 or 2 ViewsO rdered By: Jr. Mckeon on 01-08-2024 [facility] [employer] Work Phone: XR Knee - left 1 or 2 Viewso n 01-07-2024 Radiology Study observation (narrative) [facility] $ Arthrocentesison 4 Sangeetha Quick DO 07/25/2023 [...] signs reviewed and stable MANUALLY TRANSCRIBED RESULTS [facility] Comprehensive metabolic pane ulices 05-30-2023 Albumin [Mass/Vol] 4.3 g/dL 3.2 - 5.3 g/dL [facility] ALP [Catalytic activity/Vol] 63 U/L 39 - 130 U/L [facility] ALT No additional P-5'-P [Catalytic activity/Vol] 15 U/L 0 - 31 U/L [facility] Anion gap [Moles/Vol] 6 mmol/L 5 - 15 mmol/L [facility] AST [Catalytic activity/Vol] 15 U/L 0 - 41 U/L [facility] Bilirubin [Mass/Vol] 0.3 mg/dL 0.3 - 1 .2 mg/dL [facility] Calcium [Mass/Vol] 9.1 mg/dL 8.5 - 10. 5 mg/dL [facility] Chloride [Moles/Vol] 105 mmol/L 98 - 10 9 mmol/L [facility] CO2 [Moles/Vol] 31 mmol/L 22 - 32 mmol/L [facility] Creatinine [Mass/Vol] 0.65 mg/dL 0.40 - 1.00 mg/dL [facility] Comment on above: METHOD TRACEABLE TO IDOK STANDARD eGFR (CKD-EPI)non-race dependent - PINF [facility] Comment on above: Reported eGFR is based on the CKD-EPI 2020 equation that does not use a race coefficient. Glucose [Mass/Vol] 101 mg/dL High 65 - 99 mg/dL [facility] Potassium [Moles/Vol] 4.4 mmol/L 3.5 - 5.0 mmol/L [facility] Protein [Mass/Vol] 6.9 g/dL 6.0 - 8.0 g/dL [facility] Sodium [Moles/Vol] 142 mmol/L 134 - 146 mmol/L [facility] Urea nitrogen [Mass/Vol] 18 mg/dL 5 - 27 mg/dL [facility] Lipid 1996 panelon Cholesterol [Mass/Vol] 140 mg/dL Low 150 - 200 mg/dL [facility] Cholesterol in HDL [Mass/Vol] 55 mg/dL 39 - PINF mg/dL [facility] Comment on above: HDL <40 mg/dL - High Risk HDL > or = 40mg/dL- Desirable HDL >60 mg/dL - Negative Risk Cholesterol in LDL [Mass/Vol] 69 mg/dL NINF - 130 mg/dL [facility] Comment on above: LDL <100 mg/dL - Desirable LDL >160 mg/dL - High Risk Cholesterol in VLDL [Mass/Vol] 16 mg/dL 0 - 30 mg/dL [facility] Cholesterol.total/Ch olesterol in HDL [Mass ratio] 2.5 {ratio} 1.0 - 5.0 [facility] Triglyceride [Mass/Vol] 82 mg/dL 27 - 150 mg/dL [facility] No Panel Informationon 05-30 Interpretation and review of laboratory results Abnormal [facility] Thyroid profile includes TSH FT4on 05-30-2023 Free T4 [Mass/Vol] 0.92 ng/dL 0.61 - 1. 60 ng/dL [facility] TSH Qn 0.95 m[IU]/L [facility] MRI SHOULDER LT WO CONon MRI SHOULDER [...] DL RANGEL Date: 2022-05-18 09:45 Normal [facility] METABOLIC PANE [facility] 08-29-2021 Albumin [Mass/Vol] 4.0 g/dL Normal 3.6-5.1 [facility] Comment on above: Performed By: #### 7 241, 245, 69780 #### [facility] [place] [address] Specialty Transformer Assembler: Finn Akins MD Albumin/Globulin [Mass ratio] 1.9 {ratio} Normal 1.0-2.5 [facility] Comment on above: Performed By: #### 7 600, 795, 77429 #### [facility] [place] [address] Specialty Transformer Assembler: Finn Akins MD ALP [Catalytic activity/Vol] 56 U/L Normal 37-153 [facility] Comment on above: Performed By: #### 7 052, 557, 42151 #### [facility] [place] [address] Specialty Transformer Assembler: Finn Akins MD ALT [Catalytic activity/Vol] 18 U/L Normal 6-29 [facility] Comment on above: Performed By: #### 7 600, 907, 48265 #### [facility] of [address], [address] [place] [address] Specialty Transformer Assembler: Finn Akins MD AST [Catalytic activity/Vol] 18 U/L Normal 10-35 [facility] Comment on above: Performed By: #### 7 600, 927, 67536 #### [facility] of [address], [address] [place] [address] Specialty Transformer Assembler: Finn Akins MD Bilirubin [Mass/Vol] 0.4 mg/dL Normal 0.2-1.2 [facility] Comment on above: Performed By: #### 7 600, 927, 13462 #### [facility] of [place] [address] Specialty Transformer Assembler: Finn Akins MD BUN/CREATININE RATIO NOT APPLICABLE Normal 6-22 [facility] Comment on above: Performed By: #### 7 600, 927, 92804 #### [facility] of [place] [address] Specialty Transformer Assembler: Finn Akins MD Calcium [Mass/Vol] 8.8 mg/dL Normal 8.6-10.4 [facility] Comment on above: Performed By: #### 7 600, 927, 46456 #### [facility] of [place] [address] Specialty Transformer Assembler: Finn Akins MD Chloride [Moles/Vol] 106 mmol/L Normal 98-110 [facility] Comment on above: Performed By: #### 7 600, 927, 66288 #### [facility] of [address], [address] [place] [address] Specialty Transformer Assembler: Finn Akins MD CO2 [Moles/Vol] 30 mmol/L Normal 20-32 [facility] Comment on above: Performed By: #### 7 600, 927, 42732 #### [facility] of [place] [address] Specialty Transformer Assembler: Finn Akins MD Creatinine [Mass/Vol] 0.67 mg/dL Normal 0.60-0.93 [facility] Comment on above: Result Comment: For patients >49 years of age, the reference limit for Creatinine is approximately 13% higher for people identified as -Greek. Performed By: #### 7 600, 927, 90856 #### [facility] [address], [address] [place] [address] Specialty Transformer Assembler: Finn Akins MD eGFR NON-AFR. BERMUDIAN 87 mL/min/1.73m2 Normal > OR = 60 [facility] Comment on above: Performed By: #### 7 600, 927, 40997 #### [facility] [address], [address] [place] [address] Specialty Transformer Assembler: Finn Akins MD GFR/1.73 sq M.predicted among blacks MDRD (S/P/Bld) [Vol rate/Area] 101 mL/min/{1.73_m2} Normal > OR = 60 [facility] Comment on above: Performed By: #### 7 600, 927, 42789 #### [facility] [address], [address] [place] [address] Specialty Transformer Assembler: Finn Akins MD Globulin (S) [Mass/Vol] 2.1 g/dL Normal 1.9-3.7 [facility] Comment on above: Performed By: #### 7 600, 927, 27927 #### [facility] [address], [address] [place] [address] Specialty Transformer Assembler: Finn Akins MD Glucose [Mass/Vol] 96 mg/dL Normal 65-99 [facility] Comment on above: Result Comment: Fasting reference interval Performed By: #### 7 600, 927, 39932 #### [facility] [place] [address] Specialty Transformer Assembler: Finn Akins MD Potassium [Moles/Vol] 3.9 mmol/L Normal 3.5-5.3 [facility] Comment on above: Performed By: #### 7 600, 927, 50300 #### [facility] of [address], [address] [place] [address] Specialty Transformer Assembler: Finn Akins MD Protein [Mass/Vol] 6.1 g/dL Normal 6.1-8.1 [facility] Comment on above: Performed By: #### 7 600, 927, 87324 #### [facility] of [address], [address] [place] [address] Specialty Transformer Assembler: Finn Akins MD Sodium [Moles/Vol] 143 mmol/L Normal 135-146 [facility] Comment on above: Performed By: #### 7 600, 927, 85432 #### [facility] of [place] [address] Specialty Transformer Assembler: Finn Akins MD Urea nitrogen [Mass/Vol] 17 mg/dL Normal 7-25 [facility] Comment on above: Performed By: #### 7 600, 927, 42888 #### [facility] [place] [address] Specialty Transformer Assembler: Finn Akins MD LIPID PANEL, [address] Cholesterol [Mass/Vol] 126 mg/dL Normal <200 [facility] Comment on above: Order Comment: FASTI NG:YES FASTING: YES Performed By: #### 7 600, 927, 67695 #### [facility] of [place] [address] Specialty Transformer Assembler: Finn Akins MD Cholesterol in HDL [Mass/Vol] 46 mg/dL Low > OR = 50 [facility] Comment on above: Order Comment: FASTI NG:YES FASTING: YES Performed By: #### 7 600, 927, 87498 #### [facility] of [place] [address] Specialty Transformer Assembler: Finn Akins MD Cholesterol in LDL [Mass/Vol] [...] LDL-C. Aguilar HOLCOMB et al. MCKAY. 2013;310(19): 0220-3280 ([email or web address]) Performed By: #### 7 600, 927, 72896 #### [facility] [place] [address] Specialty Transformer Assembler: Finn Akins MD Cholesterol.total/Ch olesterol in HDL [Mass ratio] 2.7 {ratio} Normal <5.0 [facility] Comment on above: Order Comment: FASTI NG:YES FASTING: YES Performed By: #### 7 600, 927, 87568 #### [facility] [place] [address] Specialty Transformer Assembler: Finn Akins MD NON HDL CHOLESTEROL 80 mg/dL (calc) Normal <130 [facility] Comment on above: Order Comment: FASTI NG:YES FASTING: YES Result Comment: For patients with diabetes plus 1 major ASCVD risk factor, treating to a non-HDL-C goal of <100 mg/dL (LDL-C of <70 mg/dL) is considered a therapeutic option. Performed By: #### 7 600, 927, 51869 #### [facility] [place] [address] Specialty Transformer Assembler: Finn Akins MD Triglyceride [Mass/Vol] 86 mg/dL Normal <150 [facility] Comment on above: Order Comment: FASTI NG:YES FASTING: YES Performed By: #### 7 600, 927, 78375 #### [facility] [place] [address] Specialty Transformer Assembler: Finn Akins MD VITAMIN B12on 08-29-2021 Cobalamin (Vitamin B12) [Mass/Vol] 184 pg/mL Low 200-1100 [facility] Comment on above: Performed By: #### 7 600, 927, 01522 #### [facility] [address], [address] [place] [address] Specialty Transformer Assembler: Finn Akins MD BASIC METABOLIC PANELon Calcium [Mass/Vol] 9.2 mg/dL Normal 8.6-10.4 [facility] Comment on above: Performed By: #### 9 , 12113, 54479 #### [facility] [address], [address] [place] [address] Specialty Transformer Assembler: Finn Akins MD Chloride [Moles/Vol] 102 mmol/L Normal 98-110 [facility] Comment on above: Performed By: #### 9 27, 93758, 42730 #### [facility] [place] [address] Specialty Transformer Assembler: Finn Akins MD CO2 [Moles/Vol] 28 mmol/L Normal 20-32 [facility] Comment on above: Performed By: #### 9 , 13402, 04467 #### [facility] [place] [address] Specialty Transformer Assembler: Finn Akins MD Creatinine [Mass/Vol] 0.56 mg/dL Low 0.60-0.93 [facility] Comment on above: Result Comment: For patients >49 years of age, the reference limit for Creatinine is approximately 13% higher for people identified as -Greek. Performed By: #### 9 27, 90151, 10566 #### [facility] [place] [address] Specialty Transformer Assembler: Finn Akins MD eGFR NON-AFR. BERMUDIAN 93 mL/min/1.73m2 Normal > OR = 60 [facility] Comment on above: Performed By: #### 9 27, 62970, 87445 #### [facility] [place] [address] Specialty Transformer Assembler: Finn Akins MD GFR/1.73 sq M.predicted among blacks MDRD (S/P/Bld) [Vol rate/Area] 107 mL/min/{1.73_m2} Normal > OR = 60 [facility] Comment on above: Performed By: #### 9 27, 75312, 50044 #### [facility] [place] [address] Specialty Transformer Assembler: Finn Akins MD Glucose [Mass/Vol] 97 mg/dL Normal 65-99 [facility] Comment on above: Result Comment: Fasting reference interval Performed By: #### 9 27, 27600, 67015 #### [facility] of [address], [address] [place] [address] Specialty Transformer Assembler: Finn Akins MD Potassium [Moles/Vol] 3.8 mmol/L Normal 3.5-5.3 [facility] Comment on above: Performed By: #### 9 27, 46133, 96638 #### [facility] [place] [address] Specialty Transformer Assembler: Finn Akins MD Sodium [Moles/Vol] 140 mmol/L Normal 135-146 [facility] Comment on above: Performed By: #### 9 27, 57893, 24585 #### [facility] [place] [address] Specialty Transformer Assembler: Finn Akins MD Urea nitrogen [Mass/Vol] 14 mg/dL Normal 7-25 [facility] Comment on above: Performed By: #### 9 27, 51636, 76623 #### [facility] [place] [address] Specialty Transformer Assembler: Finn Akins MD Urea nitrogen/Creatinine [Mass ratio] 25 mg/mg High 6-22 [facility] Comment on above: Performed By: #### 9 27, 48863, 45293 #### [facility] [place] [address] Specialty Transformer Assembler: Finn Akins MD TSH+FREE T4on 04-19-2021 Free T4 [Mass/Vol] 1.2 ng/dL Normal 0.8-1.8 [facility] Comment on above: Performed By: #### 9 27, 41731, 46498 #### [facility] [address], [address] [place] [address] Specialty Transformer Assembler: Finn Akins MD TSH Qn 0.55 m[IU]/L Normal 0.40-4.50 [facility] Comment on above: Performed By: #### 9 27, 11347, 92795 #### [facility] [address], [address] [place] [address] Specialty Transformer Assembler: Finn Akins MD VITAMIN B12on 04-19-2021 Cobalamin (Vitamin B12) [Mass/Vol] 133 pg/mL Low 200-1100 [facility] Comment on above: Performed By: #### 9 27, 06289, 31203 #### [facility] [address], [address] [place] [address] Specialty Transformer Assembler: Finn Akins MD Vital Signs Date Time Vital Sign Value Performing Clinician Facility 11-02-2024 16:15-0400 Body height 149.9 cm Sangeetha Quick DO Work Phone: [facility] 11-02-2024 16:15-0400 Body mass index (BMI) [Ratio] 29.84 kg/m2 Sangeetha Quick DO Work Phone: [facility] 11-02-2024 16:15-0400 Body temperature 98.2 [degF] Sangeetha Quick DO Work Phone: [facility] 11-02-2024 16:15-0400 Body weight 67.04 kg Sangeetha Quick Work Phone: [facility] 11-02-2024 16:15-0400 Diastolic blood pressure 82 mm[Hg] Sangeetha Quick DO Work Phone: [facility] 11-02-2024 16:15-0400 Heart rate 63 /min Sangeetha Quick DO Work Phone: [facility] 11-02-2024 16:15-0400 Respiratory rate 18 /min Sangeetha Yuhas DO Work Phone: [facility] 11-02-2024 16:15-0400 SaO2% (BldA) [Mass fraction] 99 % Sangeetha Dunbars DO Work Phone: [facility] 11-02-2024 16:15-0400 Systolic blood pressure 142 mm[Hg] Sangeetha Dunbars DO Work Phone: [facility] 08-18-2024 15:11-0400 Body height 149.9 cm Sangeetha Dunbars DO Work Phone: [facility] 08-18-2024 15:11-0400 Body mass index (BMI) [Ratio] 31.05 kg/m2 Sangeetha Dunbars DO Work Phone: [facility] 08-18-2024 15:11-0400 Body temperature 97.81 [degF] Sangeetha Dunbars DO Work Phone: [facility] 08-18-2024 15:11-0400 Body weight 69.76 kg Sangeetha Quick DO Work Phone: [facility] 08-18-2024 15:11-0400 Diastolic blood pressure 80 mm[Hg] Sangeetha Dunbars DO Work Phone: [facility] 08-18-2024 15:11-0400 Heart rate 78 /min Sangeetha Dunbars DO Work Phone: [facility] 08-18-2024 15:11-0400 Respiratory rate 20 /min Sangeetha Dunbars DO Work Phone: [facility] 08-18-2024 15:11-0400 SaO2% (BldA) [Mass fraction] 100 % Sangeetha Quick DO Work Phone: [facility] 08-18-2024 15:11-0400 Systolic blood pressure 140 mm[Hg] Sangeetha Dunbars DO Work Phone: [facility] 05-19-2024 14:32-0500 Body height 149.9 cm Sangeetha Dunbars DO Work Phone: [facility] 05-19-2024 14:32-0500 Body mass index (BMI) [Ratio] 30.13 kg/m2 Sangeetha Jiménezhas DO Work Phone: [facility] 05-19-2024 14:32-0500 Body temperature 98.49 [degF] Sangeetha Jiménezhas DO Work Phone: [facility] 05-19-2024 14:32-0500 Body weight 67.68 kg Sangeetha Jiménezhas DO Work Phone: [facility] 05-19-2024 14:32-0500 Diastolic blood pressure 78 mm[Hg] Sangeetha Jiménezhas DO Work Phone: [facility] 05-19-2024 14:32-0500 Heart rate 79 /min Sangeetha Dunbars DO Work Phone: [facility] 05-19-2024 14:32-0500 SaO2% (BldA) [Mass fraction] 97 % Sangeetha Jiménezhas DO Work Phone: [facility] 05-19-2024 14:32-0500 Systolic blood pressure 110 mm[Hg] Sangeetha Dunbars DO Work Phone: [facility] 02-27-2024 13:55-0500 Body height 149.9 cm Sangeetha Jiménezhas DO Work Phone: [facility] 02-27-2024 13:55-0500 Body mass index (BMI) [Ratio] 29.49 kg/m2 Sangeetha Jiménezhas DO Work Phone: [facility] 02-27-2024 13:55-0500 Body weight 66.22 kg Sangeetha Jiménezhas DO Work Phone: [facility] 02-27-2024 13:55-0500 Diastolic blood pressure 56 mm[Hg] Sangeetha Jiménezhas DO Work Phone: [facility] 02-27-2024 13:55-0500 Systolic blood pressure 107 mm[Hg] Sangeetha Quick DO Work Phone: [facility] 02-06-2024 14:17-0400 Body height 149.9 cm Pfo 4 [facility] 02-06-2024 14:17-0400 Body mass index (BMI) [Ratio] 29.63 kg/m2 Pfo 4 [facility] 02-06-2024 14:17-0400 Body temperature 98.2 [degF] Pfo 4 [facility] 02-06-2024 14:17-0400 Body weight 66.59 kg Pfo 4 [facility] 02-06-2024 14:17-0400 Diastolic blood pressure 56 mm[Hg] Pfo 4 [facility] 02-06-2024 14:17-0400 Heart rate 79 /min Pfo 4 [facility] 02-06-2024 14:17-0400 Respiratory rate 16 /min Pfo 4 [facility] 02-06-2024 14:17-0400 SaO2% (BldA) [Mass fraction] 99 % Pfo 4 [facility] 02-06-2024 14:17-0400 Systolic blood pressure 107 mm[Hg] Pfo 4 [facility] 01-20-2024 11:57-0400 Body height 149.9 cm Sangeetha Quick DO Work Phone: [facility] 01-20-2024 11:57-0400 Body mass index (BMI) [Ratio] 28.92 kg/m2 Sangeetha Quick DO Work Phone: [facility] 01-20-2024 11:57-0400 Body temperature 97.3 [degF] Sangeetha Quick Work Phone: [facility] 01-20-2024 11:57-0400 Body weight 64.95 kg Sangeetha Jessywillielieser [place] Work Phone: [facility] 01-20-2024 11:57-0400 Diastolic blood pressure 80 mm[Hg] Sangeetha Yuhas DO Work Phone: [facility] 01-20-2024 11:57-0400 Heart rate 65 /min Sangeetha Dunbars DO Work Phone: [facility] 01-20-2024 11:57-0400 Respiratory rate 18 /min Sangeetha Quick DO Work Phone: [facility] 01-20-2024 11:57-0400 SaO2% (BldA) [Mass fraction] 100 % Sangeetha Dunbars DO Work Phone: [facility] 01-20-2024 11:57-0400 Systolic blood pressure 150 mm[Hg] Sangeetha Dunbars DO Work Phone: [facility] 12-24-2023 12:43-0400 Body height 149.9 cm Sangeetha Dunbars DO Work Phone: [facility] 12-24-2023 12:43-0400 Body mass index (BMI) [Ratio] 27.91 kg/m2 Sangeetha Quick DO Work Phone: [facility] 12-24-2023 12:43-0400 Body temperature 98.6 [degF] Sangeetha Dunbars DO Work Phone: [facility] 12-24-2023 12:43-0400 Body weight 62.69 kg Sangeetha Dunbars DO Work Phone: [facility] 12-24-2023 12:43-0400 Diastolic blood pressure 70 mm[Hg] Sangeetha Dunbars DO Work Phone: [facility] 12-24-2023 12:43-0400 Heart rate 83 /min Sangeetha Dunbars DO Work Phone: [facility] 12-24-2023 12:43-0400 SaO2% (BldA) [Mass fraction] 99 % Sangeetha Dunbars DO Work Phone: [facility] 12-24-2023 12:43-0400 Systolic blood pressure 120 mm[Hg] Sangeetha Quick DO Work Phone: [facility] 07-25-2023 10:52-0400 Body height 149.9 cm Sangeetha Quick DO Work Phone: [facility] 07-25-2023 10:52-0400 Body mass index (BMI) [Ratio] 30.98 kg/m2 Sangeetha Quick DO Work Phone: [facility] 07-25-2023 10:52-0400 Body temperature 99 [degF] Sangeetha Quick DO Work Phone: [facility] 07-25-2023 10:52-0400 Body weight 69.58 kg Sangeetha Quick DO Work Phone: [facility] 07-25-2023 10:52-0400 Diastolic blood pressure 72 mm[Hg] Sangeetha Quick DO Work Phone: [facility] 07-25-2023 10:52-0400 Heart rate 68 /min Sangeetha Quick DO Work Phone: [facility] 07-25-2023 10:52-0400 SaO2% (BldA) [Mass fraction] 98 % Sangeetha Quick DO Work Phone: [facility] 07-25-2023 10:52-0400 Systolic blood pressure 118 mm[Hg] Sangeetha Quick DO Work Phone: [facility] 07-01-2023 15:40-0400 Body height 149.9 cm Sangeetha Quick DO Work Phone: [facility] 07-01-2023 15:40-0400 Body mass index (BMI) [Ratio] 31.1 kg/m2 Sangeetha Quick DO Work Phone: [facility] [facility] 07-01-2023 15:40-0400 Body temperature 98.2 [degF] Sangeetha Quick DO Work Phone: [facility] 07-01-2023 15:40-0400 Body weight 69.85 kg Sangeetha Jiménezhas DO Work Phone: [facility] 07-01-2023 15:40-0400 Diastolic blood pressure 70 mm[Hg] Sangeetha Jiménezhas DO Work Phone: [facility] 07-01-2023 15:40-0400 Heart rate 87 /min Sangeetha Jiménezhas DO Work Phone: [facility] 07-01-2023 15:40-0400 SaO2% (BldA) [Mass fraction] 99 % Sangeetha Jiménezhas DO Work Phone: [facility] 07-01-2023 15:40-0400 Systolic blood pressure 136 mm[Hg] Sangeetha Jiménezhas DO Work Phone: [facility] 06-25-2023 11:23-0400 Body height 149.9 cm Sangeetha Jiménezhas DO Work Phone: [facility] 06-25-2023 11:23-0400 Body mass index (BMI) [Ratio] 31.06 kg/m2 Sangeetha Jiménezhas DO Work Phone: [facility] 06-25-2023 11:23-0400 Body temperature 98.29 [degF] Sangeetha Dunbars DO Work Phone: [facility] 06-25-2023 11:23-0400 Body weight 69.76 kg Sangeetha Dunbars DO Work Phone: [facility] 06-25-2023 11:23-0400 Diastolic blood pressure 70 mm[Hg] Sangeetha Jiménezhas DO Work Phone: [facility] 06-25-2023 11:23-0400 Heart rate 73 /min Sangeetha Jiménezhas DO Work Phone: [facility] 06-25-2023 11:23-0400 SaO2% (BldA) [Mass fraction] 97 % Sangeetha Jiménezhas DO Work Phone: [employer] 06-25-2023 11:23-0400 Systolic blood pressure 120 mm[Hg] Sangeetha Quick DO Work Phone: [facility] 05-30-2023 10:29-0500 Body height 149.9 cm [facility] 05-30-2023 10:29-0500 Body mass index (BMI) [Ratio] 30.7 kg/m2 Sangeetha Quick DO Work Phone: [facility] 05-30-2023 10:29-0500 Body temperature 98.1 [degF] [facility] 05-30-2023 10:29-0500 Body weight 68.95 kg [facility]etha Quick [facility] 05-30-2023 10:29-0500 Diastolic blood pressure 70 mm[Hg] Sangeetha Quick DO Work Phone: [facility] 05-30-2023 10:29-0500 Heart rate 71 /min [facility]etha Quick DO [facility] 05-30-2023 10:29-0500 SaO2% (BldA) [Mass fraction] 96 % Sangeetha Quick DO Work Phone: [facility] 05-30-2023 10:29-0500 Systolic blood pressure 120 mm[Hg] Sangeetha Quick DO Work Phone: [facility] Encounters Encounter Date Encounter Type Care Provider Facility Start: 01-04-2025 ambulatory SANGEETHA QUICK [facility] Start: 12-28-2024 End: 12-29-2024 Telephone encounter Salena Gandhi CMA [facility] Start: 12-28-2024 End: 12-28-2024 ambulatory Delmer You MD Facility:[facility] Start: 12-08-2024 End: 12-08-2024 Refill Sangeetha Quick DO Work Phone: [facility] Comment on above: Hyperlipidemia, unsp ecified Start: 12-07-2024 End: 12-07-2024 ambulatory Delmer You MD Facility:[facility] Start: 11-18-2024 End: 11-18-2024 Refill Sangeetha Quick DO Work Phone: [facility] Comment on above: Cobalamin deficiency Start: 11-06-2024 End: 01-06-2025 Follow-up encounter Sangeetha Quick DO Work Phone: [facility] Comment on above: X-ray spine lumbar 2 or 3 views Start: 11-05-2024 End: 11-11-2024 Telephone encounter Salena Gandhi [facility] Start: 11-03-2024 End: 11-03-2024 ambulatory [facility] Start: 11-02-2024 End: 11-02-2024 Office outpatient visit 25 minutes Sangeetha Quick DO Work Phone: [facility] Comment on above: Gastroenteritis due to norovirus (Primary Dx); Degenerative lumbar spinal stenosis; Hiatal hernia; Lichen planus atrophicus Start: 11-02-2024 End: 11-02-2024 ambulatory [facility] Start: 10-26-2024 End: 12-26-2024 Follow-up encounter Libia Flores RN [facility] - Emergency Comment on above: GI Panel(stool patho gen panel) Start: 10-26-2024 End: 10-26-2024 Telephone encounter Marcia Holder [facility] Comment on above: Er Follow-up Start: 10-23-2024 End: 10-23-2024 Emergency department patient visit [facility] Start: 10-21-2024 End: 10-21-2024 Tyrone Mckeon DO Work Phone: [facility] [...] 08-30-2024 Refill Sangeetha Quick DO Work Phone: [facility] Internal Medicine - Family Medicine Comment on above: Hypothyroidism Start: 08-18-2024 End: 08-18-2024 Office outpatient visit 25 minutes Sangeetha Quick DO Work Phone: [facility] Comment on above: Hyperlipidemia, unsp ecified hyperlipidemia type (Primary Dx); Hypothyroidism, unspecified type; Elevated blood pressure reading; Cobalamin deficiency Start: 08-18-2024 End: 08-18-2024 ambulatory [facility] Start: 08-18-2024 End: 08-18-2024 ambulatory [facility] Start: 07-13-2024 End: 07-13-2024 ambulatory Delmer You MD Facility: [facility] Start: 06-09-2024 End: 06-09-2024 Refill [facility] Quick DO [facility] Comment on above: Hyperlipidemia, unsp ecified Start: 05-22-2024 End: 05-22-2024 ambulatory [facility] Start: 05-19-2024 End: 05-19-2024 ambulatory [facility] Start: 05-19-2024 End: 05-19-2024 Office outpatient visit 25 minutes [facility]etha Quick DO [facility] Comment on above: Hypothyroidism, unsp ecified type (Primary Dx); Right foot pain; Vitamin D deficiency; Cobalamin deficiency; Lichen planus atrophicus Start: 05-19-2024 End: 05-19-2024 ambulatory [facility] Start: 02-27-2024 End: 02-27-2024 ambulatory [facility] Start: 02-27-2024 End: 02-27-2024 Patient encounter procedure [facility]etha Quick DO [facility] Comment on above: Encounter for subseq uent annual wellness visit (AWV) in Medicare patient (Primary Dx) Start: 02-25-2024 End: 02-25-2024 Refill Sangeetha Quick DO Work Phone: [facility] Comment on above: Hypothyroidism; Deficiency of other specified B group vitamins; Vitamin D deficiency, unspecified; Hordeolum externum of right upper eyelid Start: 02-06-2024 End: 02-06-2024 ambulatory [facility] 4 Alicia Marinhelen [facility] - Medical Oncology Comment on above: Age-related osteopor osis without current pathological fracture (Primary Dx) Start: 02-05-2024 End: 02-05-2024 ambulatory [facility] Start: 02-03-2024 End: 02-03-2024 Telephone encounter Fatoumata Chacko [facility] Internal Medicine - Family Medicine Start: 01-22-2024 End: 01-22-2024 Telephone encounter Sangeetha Gaston [facility] DO Work Phone: [facility] - Family [facility] Start: 01-20-2024 End: 01-20-2024 Bambojerson flowsana Mckeon DO Work Phone: [facility] Start: 01-20-2024 End: 01-20-2024 Bambojerson flowsana Mckeon DO Work Phone: [facility] Start: 01-20-2024 End: 01-20-2024 ambulatory [facility] Start: 01-20-2024 End: 01-20-2024 Office outpatient visit 25 minutes Jr. Angella Mckeon DO Work Phone: [facility] Comment on above: Primary osteoarthrit is of left knee (Primary Dx) Hordeolum externum o f right upper eyelid (Primary Dx); Blepharitis of right upper eyelid, unspecified type; Age-related osteoporosis without current pathological fracture; Encounter for immunization Start: 01-20-2024 End: 01-20-2024 ambulatory ANGELLA PASTRANA Not Available Start: 01-07-2024 End: 01-07-2024 Bamboo flowsheet Kathryn Cagle FUR CUTTING MACHINE OPERATOR Work Phone: [facility] Start: 01-07-2024 End: 01-07-2024 Bamboo flowsheet Kathryn Cagle FUR CUTTING MACHINE OPERATOR Work Phone: [facility] Start: 01-07-2024 End: 01-07-2024 Office outpatient visit 10 minutes Kathryn Cagle FUR CUTTING MACHINE OPERATOR Work Phone: [facility] Comment on above: Primary localized os teoarthritis of left knee (Primary Dx); Left knee pain, unspecified chronicity Start: 01-07-2024 End: 01-07-2024 ambulatory KATHRYN CAGLE Not Available Start: 12-24-2023 End: 12-24-2023 Office outpatient visit 25 minutes Sangeetha Quick DO Work Phone: [facility] Internal Medicine - Family Medicine Comment on above: Diarrhea, unspecifie d type (Primary Dx); Primary osteoarthritis of knees, bilateral; Vitamin D deficiency; Cobalamin deficiency; Age-related osteoporosis without current pathological fracture; Nausea and vomiting, unspecified vomiting type Start: 12-24-2023 End: 12-24-2023 ambulatory [facility] Start: 12-23-2023 End: 12-24-2023 Telephone encounter Marcia Holder [facility] Comment on above: Er Follow-up Start: 12-11-2023 End: 12-12-2023 Telephone encounter Dipika Sagastume [facility] Start: 08-21-2023 End: 08-23-2023 Telephone encounter Dipika Sagastume [facility] Start: 07-25-2023 End: 07-25-2023 Office outpatient visit 15 minutes Sangeetha Quick DO Work Phone: [facility] Comment on above: Osteoarthritis of le ft shoulder, unspecified osteoarthritis type (Primary Dx) Start: 07-01-2023 End: 07-01-2023 Office outpatient visit 25 minutes Sangeetha Quick DO Work Phone: [facility] Comment on above: 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, bilateral (Primary Dx); Osteoarthritis of left shoulder, unspecified osteoarthritis type; Immunization due Start: 06-25-2023 End: 06-25-2023 Office outpatient visit 25 minutes Sangeetha Quick DO Work Phone: [facility] Internal Medicine - Family Medicine Comment on above: Localized osteoarthr itis of left knee (Primary Dx) Start: 05-30-2023 End: 05-30-2023 Office outpatient visit 25 minutes Sangeetha Quick DO Work Phone: [facility] Comment [...] major jt/bursa w/o us Jr. Angella Campos Stepanthony DO Work Phone: Start: 09-09-2024 Radex shoulder compl ete minimum 2 views Jr. Angella Mckeon DO Work Phone: Start: 08-18-2024 Adult depression scr eening assessment Sangeetha Quick DO Work Phone: Start: 05-19-2024 Adult depression scr eening assessment Sangeetha Quick DO Work Phone: Start: 02-27-2024 Adult depression scr eening assessment Sangeetha Quick DO Work Phone: Start: 01-20-2024 Adult depression scr eening assessment Sangeetha Quick DO Work Phone: Start: 01-07-2024 Radiologic examinati on knee 1/2 views Kathryn Cagle FUR CUTTING MACHINE OPERATOR Work Phone: Start: 12-24-2023 Follow-up visit [...] Start: 11-02-2025 Depression Screening Depression Scre ening [facility] Start: 11-02-2025 Fall Risk Screening Fall Risk Screen ing [facility] Start: 11-02-2025 Tobacco Screening Tobacco Screening [facility] Start: 08-18-2025 Depression Screening Depression Scre ening [facility] Start: 08-18-2025 Fall Risk Screening Fall Risk Screen ing [facility] Start: 08-18-2025 Tobacco Screening Tobacco Screening [facility] Start: 05-19-2025 Depression Screening Depression Scre ening [facility] Start: 05-19-2025 Fall Risk Screening Fall Risk Screen ing [facility] Start: 05-19-2025 Tobacco Screening Tobacco Screening [facility] Start: 03-02-2025 End: 03-02-2025 Patient encounter procedure 03/02/2025 2:20 PM EST Office Visit [facility] [address] [place] [address] [facility] Start: 02-26-2025 Depression Screening Depression Scre ening [facility] Start: 02-26-2025 Fall Risk Screening Fall Risk Screen ing [facility] Start: 02-26-2025 Medicare Annual Well ness Visit Medicare Annual Wellness Visit [facility] Start: 02-05-2025 End: 02-05-2025 ambulatory 02/05/2025 2:30 PM EDT Infusion Alicia Kim [facility] - Medical Oncology [facility] [place] [address] Alicia Kim [facility] - [facility] On[facility] Start: 01-19-2025 Adult BMI Screening Adult BMI Screen ing [facility] Start: 01-19-2025 Depression Screening Depression Scre ening [facility] Start: 01-19-2025 Fall Risk Screening Fall Risk Screen ing [facility] Start: 01-19-2025 Tobacco Screening Tobacco Screening [facility] Start: 01-07-2025 End: 01-07-2025 Patient encounter procedure [facility] - Mammography/DEXA Imaging Start: 12-23-2024 Adult BMI Screening Adult BMI Screen ing [facility] Start: 12-23-2024 Depression Screening Depression Scre ening [facility] Start: 12-23-2024 Fall Risk Screening Fall Risk Screen ing [facility] Start: 12-23-2024 Tobacco Screening Tobacco Screening [facility] Start: 12-16-2024 End: 12-16-2024 Patient encounter procedure 12/16/2024 10:30 AM EDT Office Visit [facility] [address] [place] [id number] Jr. nAgella Mckeon, DO [address] [facility] [address] [place] [address] [facility] Start: 12-14-2024 COVID-19 Vaccine ( season) COVID-19 Vaccine () [facility] Start: 12-14-2024 Influenza vaccination [facility] Start: 11-02-2024 End: 11-02-2025 XR Lumbar spine 2 or 3 Views X-ray spine lumbar 2 or 3 views Imaging Routine Degenerative lumbar spinal stenosis Expected: 11/02/2024, Expires: 11/02/2025 [facility] Work Phone: Comment on above: Expected: 11/02/2024 , Expires: 11/02/2025 Start: 10-21-2024 End: 10-21-2024 Patient encounter procedure [facility] Comment on above: Arrived Start: 09-09-2024 End: 09-09-2024 Patient encounter procedure 09/09/2024 9:30 AM EDT Office Visit [facility] [address] [place] [id number] Jr. Angella Mckeon, DO [address] [place] [address] Acute pain of right shoulder [facility] Comment on above: Acute pain of right shoulder Start: 07-24-2024 Adult BMI Screening Adult BMI Screen ing [facility] Start: 07-24-2024 Depression Screening Depression Scre ening [facility] Start: 07-24-2024 Fall Risk Screening Fall Risk Screen ing [facility] Start: 07-24-2024 Tobacco Screening Tobacco Screening [facility] Start: 07-20-2024 COVID-19 Vaccine ( season) COVID-19 Vaccine () [facility] Start: 06-30-2024 Adult BMI Screening Adult BMI Screen ing [facility] Start: 06-30-2024 Depression Screening Depression Scre ening [facility] Start: 06-30-2024 Fall Risk Screening Fall Risk Screen ing [facility] Start: 06-30-2024 Tobacco Screening Tobacco Screening [facility] Start: 06-24-2024 Adult BMI Screening Adult BMI Screen ing [facility] Start: 06-24-2024 Depression Screening Depression Scre ening [facility] Start: 06-24-2024 Fall Risk Screening Fall Risk Screen ing [facility] Start: 06-24-2024 Tobacco Screening Tobacco Screening [facility] Start: 05-30-2024 Adult BMI Screening Adult BMI Screen ing [facility] Start: 05-30-2024 Depression Screening Depression Scre [facility] Start: 05-30-2024 Fall Risk Screening Fall Risk Screen ing [facility] Start: 05-30-2024 Tobacco Screening Tobacco Screening [facility] Start: 05-22-2024 COVID-19 Vaccine () COVID-19 Vaccine () [facility] Start: 05-21-2024 DTaP,Tdap and Td Vaccines (2 - Td or Tdap) DTaP,Tdap and Td Vaccines (2 - Td or Tdap) [facility] Start: 05-19-2024 End: 05-19-2025 XR Foot - right 3 Views X-ray foot right minimum 3 views Imaging Routine Right foot pain Expected: 05/19/2024, Expires: 05/19/2025 [facility] Work Phone: Comment on above: Expected: 05/19/2024 , Expires: 05/19/2025 Start: 03-19-2024 End: 03-19-2024 Patient encounter procedure 03/19/2024 4:15 PM EST Office Visit [facility] - Family [facility] [address] [place] [address] Sangeetha Quick, DO [address] [place] [address] [facility] Start: 03-16-2024 End: 03-16-2024 Patient encounter procedure 03/16/2024 10:00 AM EST Office Visit [facility] [address] [place] [phone] Kathryn Cagle, FUR CUTTING MACHINE OPERATOR [address] [place], [place] [id number] [facility] Start: 02-27-2024 End: 02-27-2024 Patient encounter procedure 02/27/2024 1:40 PM EST [facility] [address] [place] [address] [facility] Start: 01-20-2024 End: 01-20-2024 Patient encounter procedure [facility] Comment on above: Arrived Start: 01-07-2024 End: 01-07-2024 Patient encounter procedure 01/07/2024 10:30 AM EDT Office Visit [facility] [address] [place] [phone] Kathryn Cagle, FUR CUTTING MACHINE OPERATOR [address] [facility] [place] [address] Arrived [facility] Comment on above: Arrived Start: 12-26-2023 End: 12-26-2023 Patient encounter procedure 12/26/2023 1:45 PM EDT Appointment [facility] - Mammogram DEXA [address] [place] [phone] Sangeetha Quick, DO [address] [place] [address] [facility] - Mammogram [facility]EX[facility] Start: 12-24-2023 End: 12-23-2024 GI Panel(stool pathogen panel) GI Panel(stool pathogen panel) Lab Routine Diarrhea, unspecified type Expected: 12/24/2023, Expires: 12/23/2024 [facility] Work Phone: Comment on above: Expected: 12/24/2023 , Expires: 12/23/2024 Start: 12-24-2023 End: 12-24-2023 Patient encounter procedure 12/24/2023 1:00 PM EDT Office Visit [facility] [address] [place] [address] Sangeetha Quick DO [address] [place] [address] [facility] Start: 12-15-2023 COVID-19 Vaccine ( season) COVID-19 Vaccine ( season) [facility] Start: 12-15-2023 Influenza vaccination [facility] Start: 12-03-2023 End: 12-03-2023 Patient encounter procedure 12/03/2023 2:00 PM EDT Office Visit [facility] [address] [facility] [place] [address] [facility] Start: 11-28-2023 Medicare Annual Well ness Visit Medicare Annual Wellness Visit [facility] Start: 07-14-2023 Influenza vaccination Influenza Vacc ine [facility] Comment on above: Postponed from 12/14 (Vaccine Not Available) Start: 06-25-2023 End: 06-24-2024 XR Knee - left 3 Views X-ray knee left 3 views Imaging Routine Localized osteoarthritis of left knee Expected: 06/25/2023, Expires: 06/24/2024 [facility] Comment on above: Expected: 06/25/2023 , Expires: 06/24/2024 Start: 12-14-2022 COVID-19 Vaccine ( season) COVID-19 Vaccine ( season) [facility] Start: 12-14-2022 Influenza vaccination Influenza Vacc ine [facility] Start: 12-20-1997 Administration of varicella zoster vaccine Zoster (Shingles) Vaccine (1 of 2) [facility] Start: [birth year]-20-1965 Adult BMI Follow Up Plan Adult BMI Follow Up Plan [facility] End: 12-23-2024 Basic metabolic 2000 panel - Serum or Plasma Basic Metabolic Panel Lab Routine Diarrhea, unspecified type 1 Occurrences starting 12/24/2023 until 12/23/2024 [facility] Comment on above: 1 Occurrences starti ng 12/24/2023 until 12/23/2024 End: 05-19-2025 CBC W Auto Differential panel - Blood CBC auto differential Lab Routine Hypothyroidism, unspecified type 1 Occurrences starting 05/19/2024 until 05/19/2025 [facility] Comment on above: 1 Occurrences starti ng 05/19/2024 until 05/19/2025 End: 05-19-2025 Comprehensive metabolic 2000 panel - Serum or Plasma Comprehensive metabolic panel Lab Routine Hypothyroidism, unspecified type 1 Occurrences starting 05/19/2024 until 05/19/2025 [facility] Comment on above: 1 Occurrences starti ng 05/19/2024 until 05/19/2025 End: 08-18-2025 Comprehensive metabolic 2000 panel - Serum or Plasma Comprehensive metabolic panel Lab Routine Hyperlipidemia, unspecified hyperlipidemia type 1 Occurrences starting 08/18/2024 until 08/18/2025 [employer] Work Phone: Comment on above: 1 Occurrences starti ng 08/18/2024 until 08/18/2025 Comprehensive metabo lic 2000 panel - Serum or Plasma Comprehensive metabolic panel Lab Routine Hyperlipidemia, unspecified hyperlipidemia type 08/18/2024 3:42 PM EDT [facility] End: 05-19-2025 Cyanocobalamin vitamin b-12 Vitamin B12 Lab Routine Cobalamin deficiency 1 Occurrences starting 05/19/2024 until 05/19/2025 [facility] Comment on above: 1 Occurrences starti ng 05/19/2024 until 05/19/2025 End: 12-23-2024 Cyanocobalamin vitamin b-12 Vitamin B12 Lab Routine Cobalamin deficiency 1 Occurrences starting 12/24/2023 until 12/23/2024 [facility] Comment on above: 1 Occurrences starti ng 12/24/2023 until 12/23/2024 End: 08-18-2025 Lipid 1996 panel - Serum or Plasma Lipid profile Lab Routine Hyperlipidemia, unspecified hyperlipidemia type 1 Occurrences starting 08/18/2024 until 08/18/2025 [facility] Comment on above: 1 Occurrences starti ng 08/18/2024 until 08/18/2025 Lipid 1996 panel - S annette or Plasma Lipid profile Lab Routine Hyperlipidemia, unspecified hyperlipidemia type 08/18/2024 3:42 PM EDT [facility] End: 05-19-2025 Thyroid profile includes TSH FT4 Thyroid profile includes TSH FT4 Lab Routine Hypothyroidism, unspecified type 1 Occurrences starting 05/19/2024 until 05/19/2025 [facility] Comment on above: 1 Occurrences starti ng 05/19/2024 until 05/19/2025 End: 05-19-2025 Vitamin D 25 hydroxy Vitamin D 25 hydroxy Lab Routine Vitamin D deficiency 1 Occurrences starting 05/19/2024 until 05/19/2025 [facility] Comment on above: 1 Occurrences starti ng 05/19/2024 until 05/19/2025 Immunizations Immunization Date Immunization Notes Care Provider Fa cili 01-20-2024 Covid-19, Mrna, Lnp- s, Pf,christian-sucrose,30 Mcg/0.3ml Sangeetha Quick DO Work Phone: [facility] 01-20-2024 Seasonal trivalent influenza vaccine, adjuvanted, preservative free Sangeetha Quick DO Work Phone: [facility] 01-20-2024 Immunization, In Clinic,; Translations: [Drug or medicament (substance)] Sangeetha Quick DO Work Phone: [facility] 01-20-2024 influenza virus vacc ine, unspecified formulation Sangeetha Dunbars DO Work Phone: [facility] 01-22-2022 influenza virus vacc ine, unspecified formulation Kathryn Lopezen FUR CUTTING MACHINE OPERATOR Work Phone: [facility] 04-24-2017 Influenza, injectabl e, Madin Pandora Canine Kidney, preservative free, quadrivalent Sangeetha Yuhas DO Work Phone: [facility] 04-24-2017 influenza virus vacc ine, unspecified formulation Sangeetha Yuhas DO Work Phone: [facility] 03-15-2016 pneumococcal polysaccharide vaccine, 23 valent Sangeetha Yuhas DO Work Phone: [facility] 01-11-2016 influenza, seasonal, injectable, preservative free Sangeetha Yuhas DO Work Phone: [facility] 01-05-2015 influenza, seasonal, injectable, preservative free Sangeetha Yuhas DO Work Phone: [facility] 01-05-2015 pneumococcal conjuga te vaccine, 13 valent Sangeetha Yuhas DO Work Phone: [facility] 05-21-2014 pneumococcal polysaccharide vaccine, 23 valent Sangeetha Yuhas DO Work Phone: [facility] 05-21-2014 tetanus toxoid, redu mary diphtheria toxoid, and acellular pertussis vaccine, adsorbed Sangeetha Yuhas DO Work Phone: [facility] Payers Date Payer Category Payer Managed Care Other (unspecified) [facility] [id number] 2021 Commercial Managed C are - POS [id number] 2021 Private Health Insurance [id number] .[id number] .[id number] 2010 Medicare [id number]. 1.13.693 .[id number] 1959 Medicare [id number] 1959 Private Health Insurance CLI [id number] 1947 Unknown [id number] 2.16.840.1.978325.3.579 .2.593 1947 Unknown [id number] 2.16.840.1.088192.3.579 .2.593 1947 Unknown [id number] 2.16.840.1.208080.3.579 .2.593 1947 Unknown [id number] 2.16.840.1.754276.3.579 .2.593 1947 Unknown [id number] 2.16.840.1.784321.3.579 .2.593 1947 Unknown [id number] 2.16.840.1.598124.3.579 .2.593 1947 Unknown [id number] 2.16.840.1.530018.3.579 .2.593 1947 Unknown [id number] 2.16.840.1.541742.3.579 .2.593 1947 Unknown [id number] 2.16.840.1.166721.3.579 .2.593 1947 Unknown [id number] 2.16.840.1.220351.3.579 .2.593 1947 Unknown [id number] 2.16.840.1.947544.3.579 .2.593 1947 Unknown [id number] 2.16.840.1.969587.3.579 .2.593 1947 Unknown [id number] 2.16.840.1.820767.3.579 .2.593 1947 Unknown [id number] 2.16.840.1.459284.3.579 .2.593 1947 Unknown [id number] 2.16.840.1.345698.3.579 .2.593 1947 Unknown [id number] 2.16.840.1.873866.3.579 .2.1286 1947 Unknown [id number] 2.840.1.412233.3.579 .2.128 1947 Unknown [id number] 2.16840.1.159053.3.579 .2.1259 1947 Unknown [id number] 2.16.840.1.771142.3.579 .2.125 1947 Unknown [id number] 2.16.840.1.883593.3.579 .2.1259 1947 Unknown [id number] 2.16840.1.913026.3.579 .2.1259 1947 Unknown [id number] 2.16.840.1.419093.3.579 .2.1259 1947 Unknown [id number] 2.16.840.1.722177.3.579 .2.125 1947 Unknown [id number] 2.16.840.1.956001.3.579 .2.1286 1947 Unknown [id number] 2.16.840.1.493183.3.579 .2.128 1947 Unknown [id number] 2.16.840.1.994308.3.579 .2.128 1947 Unknown [id number] 2.16.840.1.532232.3.579 .2.1285 1947 Unknown [id number] 2.16.840.1.226526.3.579 .2.1285 1947 Unknown [id number] 2.16.840.1.304817.3.579 .2.1285 1947 Unknown [id number] 2.16.840.1.955040.3.579 .2.196 1945 Unknown [id number] 2.16.840.1.957638.3.579 .2. 1945 Unknown [id number] 2.16.840.1.346881.3.579 .2. 1945 Unknown [id number] 2.16.840.1.226131.3.579 .2.1285 1947 Unknown [id number] 2.16.840.1.368666.3.579 .2.1285 1945 Unknown [id number] 2.16.840.1.938750.3.579 .2.1285 1947 Unknown [id number] 2.16.840.1.504050.3.579 .2.1285 1947 Unknown [id number] 2.16840.1.821509.3.579 .2.1285 1947 Unknown [id number] 2.16840.1.007173.3.579 .2.1286 Social History Date Type Detail Facility Start: 05-14-2022 End: 01-07-2024 Tobacco smoking status PAIS Never smoked tobacco [facility] Work Phone: Start: 05-14-2022 End: 01-07-2024 Tobacco use and exposure Smokeless tobacco non-user [facility] Start: 01-07-2024 End: 10-21-2024 Alcoholic beverage intake Ex-drinker (finding) [facility] Start: 11-27-2022 End: 01-07-2024 History of Social function [facility] Start: 11-27-2022 End: 01-07-2024 Tobacco use panel [facility] Start: 1945 Sex assigned at Not on file [facility] Tobacco smoking stat [facility] Tobacco smoking consumption unknown [facility] Start: 05-19-2024 End: 11-02-2024 Alcoholic beverage intake Current non-drinker of alcohol (finding) [facility] Has the [employer], or water [employer] threatened to shut off services in your home in past 12Mo No [facility] Do you belong to any clubs or organizations such as confucianism groups, unions, fraternal or athletic groups, or school groups? Yes [facility] Are you now , , , , never or living with a partner? [facility] How often to you hav e a drink containing alcohol? Never [facility] How many standard dr inks containing alcohol do you have on a typical day? Patient does not drink [facility] How hard is it for y ou to pay for the very basics like food, housing, medical care, and heating Somewhat hard [facility] Do you feel stress - tense, restless, nervous, or anxious, or unable to sleep at night because your mind is troubled all the time - these days [OSQ] Rather much [facility] Start: 11-18-2014 Sex Female (finding) [facility] How hard is it for y ou to pay for the very basics like food, housing, medical care, and heating Hard [facility] Do you feel stress - tense, restless, nervous, or anxious, or unable to sleep at night because your mind is troubled all the time - these days [OSQ] Very much [facility] Clinical Notes 09-07-2021 to 12-28-2024 Telephone Encounter - Salena Gandhi, MOGUL OPERATOR - 12/28/2024 12:17 PM EDTTelephone Encounter - Sangeetha Quick DO - 12/28/2024 12:17 PM EDTTelephone Encounter - Edmundo Liegh CNA - 12/28/2024 12:17 PM EDT Note Date & Type Note Facility 12-28-2024 Miscellaneous Notes This patient called because she needs a referral to the [facility] for her infusion. She also needs an order for her Mammogram and Dexa sent to [facility] Message noted. The orders for the tests, and the infusion were sent to [facility] Pt informed documented in this encounter [facility] 12-28-2024 Telephone encounter Note This patient called because she needs a referral to the [facility] for her infusion. She also needs an order for her Mammogram and Dexa sent to [facility] 12-28-2024 Telephone encounter Note Message noted. The orders for the tests, and the infusion were sent to [facility] 12-28-2024 Telephone encounter Note Pt informed [facility] 11-05-2024 Miscellaneous Notes Patient stopped in and [...] she will need a script sent to [facility] in [place]. Thank you. Message noted. I sent an order for Tramadol to [facility] in [place] documented in this encounter [facility] 11-05-2024 Telephone encounter Note Patient stopped in and she is in a lot of pain.and said the Meloxicam only work until noon. Her xrays have not been read yet. [facility] 11-05-2024 Telephone encounter Note Message noted. I reviewed her back xray. It shows osteoarthritis at multiple levels. If the Meloxicam is only working for part of the day, is she willing to take Tramadol to help supplement? She used that in the past with some success. Just let me know. [facility] 11-05-2024 Telephone encounter Note I spoke with pt and she agreed to take the Tramadol to supplement with the Meloxicam. Pt stated she will need a script sent to [facility] in [place]. Thank you. [facility] 07-24-2025 Telephone encounter Note Message noted. I sent an order for Tramadol to [facility] in [place] [facility] 11-02-2024 History of Present illness Narrative [...] has received LENY in the past at [place] [facility] -had MRI scan approximately 3 [...] 42.5 g; Refill: 1 Subjective FOLLOW-UP: EMERGENCY DEPARTMENT-[place] Patient was discharged from the facility on: [...] Also has been to pain management in [place] and received LENY to the lumbar spine. [...] 10/23/2024 Auto Resulted Final POC Urine Specific [place] 10/23/2024 1.020 1.010, 1.015, 1.020, 1.025 Final [...] Testing No results found. Sangeetha Quick DO., [facility] Office: [phone] documented in this encounter [facility] 10-26-2024 Miscellaneous Notes ED Outreach This documentation is being used for Transition of Care purposes: Yes/No: Yes ED Outreach Date: October 26, 2024 ED Outreach Method: COMMUNICATION METHOD: Telephone ED Outreach Attempt: first ED Outreach Outcome: Contacted Patient Name of ED Facility: [facility] Date of ED Discharge: 10/23/2024 Discharge Diagnosis: [...] with additional concerns. documented in this encounter [facility] 10-26-2024 Telephone encounter Note ED Outreach This documentation is being used for Transition of Care purposes: Yes/No: Yes ED Outreach Date: October 26, 2024 ED Outreach Method: COMMUNICATION METHOD: Telephone ED Outreach Attempt: first ED Outreach Outcome: Contacted Patient Name of ED Facility: [facility] Date of ED Discharge: 10/23/2024 Discharge Diagnosis: [...] WKS) XRAY 09/09/24 IN EPIC MRI 08/11/24 @[facility] PER PT - POSSIBLY TOOK MDP [...] DROPPING OBJECTS LESS FREQUENTLY - WEAKNESS. 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 ADMITS POPPING / [...] Daily RT cholecalciferol (Vitamin D-3) 1.25 MG (33753 UT) capsule 1 capsule, Oral, Weekly ergocalciferol (Vitamin D2) 1.25 MG (11256 UT) capsule TAKE 1 CASPULE BY MOUTH [...] Use: Not At Risk (11/27/2022) Received from [facility] Frequency of Alcohol Consumption: Never Average [...] requiring urgent evaluation. documented in this encounter [facility] 09-09-2024 History of Present illness Narrative [...] XRAY TODAY, 09/09/24 IN EPIC MRI 08/11/24 @[facility] PER PT - POSSIBLY TOOK MDP FOR LBP IN 05/2024 NO CORTISONE INJ NO PT PAIN MGMT @[facility] (DR. YOU) SUPERIOR / POSTERIOR DISCOMFORT. RADIATION INTO UPPER ARM. ADMITS WARMTH TO TOUCH / DIFFUSE SWELLING. DENIES N/T. ADMITS DROPPING OBJECTS FREQUENTLY - WEAKNESS. 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 LIMITED ROM WITH ELEVATION / POSTERIOR MOVEMENT [...] Daily RT cholecalciferol (Vitamin D-3) 1.25 MG (11476 UT) capsule 1 capsule, Oral, Weekly ergocalciferol (Vitamin D2) 1.25 MG (14090 UT) capsule TAKE 1 CASPULE BY MOUTH [...] Use: Not At Risk (11/27/2022) Received from [facility] Frequency of Alcohol Consumption: [...] requiring urgent evaluation. documented in this encounter [facility] 08-18-2024 History of Present illness Narrative IM PROGRESS NOTE Patient - Rach Abrams Age - 78 [facility] 1945 [id number] ASSESSMENT & PLAN 1. Hyperlipidemia, unspecified hyperlipidemia [...] and knees. Going to pain clinic at [place] and receiving injections.. Exam BP 140/80 (BP [...] Testing No results found. Sangeetha Quick DO., [facility] Office: [phone] documented in this encounter [facility] 05-19-2024 History of Present illness Narrative IM PROGRESS NOTE Patient - Rach Abrams Age - 78 y.[facility] 1945 [facility] [id number] ASSESSMENT & PLAN 1. Hypothyroidism, unspecified type [...] 3. Vitamin D deficiency -currently taking D3 78550 units weekly because of low vitamin-D and [...] Testing No results found. Sangeetha Quick DO., [facility] Office: [phone] documented in this encounter [facility] 02-27-2024 History of Present illness [...] Do you have a durable power of finance attorney?: Yes Cognitive Screening Do you have [...] year (around 02/26/2025). [facility] History of Present illness Narrative Pt here for reclast as scheduled. Has had in the past without issues. PIV initiated to LAC. Brisk blood return. Flushes with ease. Reclast infused over 15 minutes without incident. Line flushed. PIV removed. Pt dc'd in stable ambulatory condition. documented in this encounter [facility] 02-03-2024 Miscellaneous Notes Called pt to let her know that she just has to go get her labs drawn at the hospital and the orders are already in. documented in this encounter [facility] 02-03-2024 Telephone encounter Note Called pt to let her know that she just has to go get her labs drawn at the hospital and the orders are already in. [facility] 01-22-2024 Miscellaneous Notes Patient called asking about an infusion at the [facility] that you were suppose to send over Message noted. The order was sent. She can call them at any time Mailbox is full documented in this encounter [facility] 01-22-2024 Telephone encounter Note Patient called asking about an infusion at the [facility] that you were suppose to send over [facility] 01-22-2024 Telephone encounter Note Message noted. The order was sent. She can call them at any time [facility] 01-22-2024 Telephone encounter Note Mailbox is full [facility] 01-20-2024 History of Present illness Narrative IM PROGRESS NOTE Patient - Rach Abrams Age - 78 y.[facility]. [facility] 1945 [facility] [facility] [id number] ASSESSMENT & PLAN Diagnosis Plan 1. Hordeolum [...] Testing No results found. Sangeetha Quick DO., [facility] Office: [phone] documented in this encounter [facility] 01-20-2024 History of Present illness Narrative HISTORY [...] Daily RT cholecalciferol (Vitamin D-3) 1.25 MG (70289 UT) capsule 1 capsule, Oral, Weekly ergocalciferol (Vitamin D2) 1.25 MG (19710 UT) capsule TAKE 1 CASPULE BY MOUTH [...] Use: Not At Risk (11/27/2022) Received from [facility], [facility] Frequency of Alcohol Consumption: Never Average [...] Angella Mckeon D.O. documented in this encounter [facility] 01-07-2024 History of Present illness Narrative [...] 09/11/23 XRAY [facility] 06/27/23 XRAY (08/26/18) @ [facility] SY[facility]ISC (01/18/17) PER DR MCKEON PREVIOUS XRAYS (10/17/16) (AP STANDING) @ [facility]. PHYSICAL THERAPY @ [facility] 08/26/18 DR QUICK TX; TRAMADOL [...] Daily RT cholecalciferol (Vitamin D-3) 1.25 MG (27674 UT) capsule 1 capsule, Oral, Weekly Cyanocobalamin ER 1000 MCG tablet controlled-release 2 tablets, Oral, Daily ergocalciferol (Vitamin D2) 1.25 MG (13123 UT) capsule TAKE 1 CASPULE BY MOUTH [...] left knee showed severe varus deformity with edby-ag-ustd articulation to the medial joint line, flattening [...] develop for requiring urgent evaluation. Kathryn Cagle OPHTHALMIC DISPENSER-OUTPATIENT RECEPTIONIST documented in this encounter [facility] 12-24-2023 History of Present illness Narrative [...] Vitamin D deficiency -currently on vitamin D2 62023 units weekly -no change today 4. Cobalamin [...] She was visiting her mother in the half-way, and person there was having diarrhea and [...] Detected Not Detected^Not Detected Final Specific gravity STUART 2023 1.015 1.003 - 1.035 Final Leukocyte esterase [facility] 2023 Trace (A) Negative^Negative Final Nitrite [facility] 2023 Negative Negative^Negative Final Ph 2023 5.5 5.0 - 8.5 Final Protein [facility] 2023 Negative Negative^Negative mg/dL Final Urine glucose [facility] 2023 Negative Negative^Negative mg/dL Final Ketones [facility] 2023 Trace (A) Negative^Negative mg/dL Final Urobilinogen [facility] 2023 0.2 <1.1 eu/dL Final Bilirubin [facility] 2023 Negative Negative^Negative Final Hemoglobin [facility] 2023 Small (A) Negative^Negative Final Other Testing No results found. Sangeetha Quick DO., [facility] Office: [phone] documented in this encounter [facility] 12-23-2023 Miscellaneous Notes ED Outreach This documentation is being used for Transition of Care purposes: Yes/No: Yes ED Outreach Date: December 23, 2023 ED Outreach Method: COMMUNICATION METHOD: Telephone ED Outreach Attempt: second ED Outreach Outcome: Contacted Patient Name of ED Facility: [facility] Date of ED Discharge: 2023 [...] with additional concerns. documented in this encounter [facility] 12-23-2023 Telephone encounter Note ED Outreach This documentation is being used for Transition of Care purposes: Yes/No: Yes ED Outreach Date: December 23, 2023 ED Outreach Method: COMMUNICATION METHOD: Telephone ED Outreach Attempt: second ED Outreach Outcome: Contacted Patient Name of ED Facility: [facility] Date of ED Discharge: 2023 [...] will contact the office with additional concerns. [facility] 12-11-2023 Miscellaneous Notes Patient came in today and asked if her mammogram could be sent to [facility]. Also she was wondering if you would check into her in fusion at [facility]. Message noted. The mammogram order was sent to [facility] I put a new order for the Reclast infusion at [facility]. She can call about setting up the infusion Informed patient via answering machine. documented in this encounter [facility] 12-11-2023 Telephone encounter Note Patient came in today and asked if her mammogram could be sent to [facility]. Also she was wondering if you would check into her in fusion at [facility]. [facility] 12-11-2023 Telephone encounter Note Message noted. The mammogram order was sent to [facility] I put a new order for the Reclast infusion at [facility]. She can call about setting up the infusion [facility] 12-11-2023 Telephone encounter Note Informed patient via answering machine. [facility] 08-21-2023 Miscellaneous Notes Patient called [...] notified documented in this encounter [facility] 08-21-2023 Telephone encounter Note Patient called and the injection in her knee did not help. She wanted to know where to go from here. Does she need another apt? [facility] 08-21-2023 Telephone encounter Note Message noted. She needs to see orthopedics about a knee replacement. Whom does she wish to see? [facility] 08-21-2023 Telephone encounter Note LM for Patient to call back. [facility] 08-21-2023 Telephone encounter Note She would like to use Dr. Mckeon [facility] 08-21-2023 Telephone encounter Note Message noted. I made a referral to Dr. Mckeon. She can call his office and schedule at any time. [facility] 08-21-2023 Telephone encounter Note Patient notified T [facility] 07-25-2023 History of Present illness Narrative Associated [...] Testing No results found. Sangeetha Quick DO., [facility] Office: [phone] [id number] History of Present illness Narrative IM PROGRESS NOTE Patient - Rach Abrams Age - 77 y.[facility] 1945 [facility] [facility] [id number] ASSESSMENT & PLAN 1. Primary osteoarthritis of [...] ml/min/1.73sq.m Final Other Testing No results found. Sangeetah Quick DO., [facility] Office: [phone] documented in this encounter [facility] 06-25-2023 History of Present illness [...] Testing No results found. Sangeetha Quick DO., [facility] Office: [phone] documented in this encounter [facility] 05-30-2023 History of Present illness Narrative IM PROGRESS NOTE Patient - Rach Abrams Age - 77 y.[facility] 1945 [facility] [facility] [id number] ASSESSMENT & PLAN 1. Hypothyroidism, unspecified type [...] moved into a memory unit at a half-way, and a son was found at home. [...] Testing No results found. Sangeetha Quick DO., [facility] Office: [phone] documented in this encounter [facility] 07-19-2022 Note CONSULTATION CONSULTATION DATE: [...] our patients to inform us about any jmpp-aok-iulpqnh medications or herbal remedies/nutritional supplements/alternative remedies. 2. [...] options with their primary care provider. [facility] 04-26-2022 Note CONSULTATION CONSULTATION DATE: 04/26/2022 HISTORY [...] three months' time unless otherwise indicated. [facility] 03-27-2022 Note CONSULTATION CONSULTATION DATE: 03/27/2022 CHIEF [...] to proceed. CC: Sangeetha Quick D.O. [facility] 02-08-2022 Note CONSULTATION CONSULTATION DATE: 02/08/2022 This [...] The patient agrees with this plan. [facility] 01-11-2022 Note CONSULTATION CONSULTATION DATE: 01/11/2022 HISTORY [...] Patient would like to move forward. [facility] 12-14-2021 Note CONSULTATION PROCEDURE DATE: 12/14/2021 PREOPERATIVE [...] be followed up in the office. [facility] 12-14-2021 Note CONSULTATION CONSULTATION DATE: 12/14/2021 HISTORY [...] well, which she does consent to. [facility] 09-07-2021 Note CONSULTATION CONSULTATION DATE: 09/07/2021 HISTORY [...] injections. 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 She uses [...] in three months' time, unless otherwise indicated. [facility] ELIZABETH HEBRON Signed and Approved by: MARIELY YUAN . 09/14/2021 16:04:00 [facility] Evaluation note Diagnosis Primary osteoarthritis of left knee- Primary documented in this encounter [facility] HealthcareEvaluation note* Diagnosis Primary localized osteoarthritis of left knee- Primary Left knee pain, unspecified chronicity documented in this encounter [facility] HealthcareEvaluation note* Diagnosis Hypothyroidism, unspecified type- Primary Right foot pain Pain in soft tissues of limb Vitamin D deficiency Cobalamin deficiency Other B-complex deficiencies Lichen planus atrophicus Lichen planus [facility] Diagnosis Hypothyroidism, unspecified type- Primary Cobalamin deficiency Other B-complex deficiencies Hyperlipidemia, unspecified hyperlipidemia type Osteoarthritis of left shoulder, unspecified osteoarthritis type documented [facility] Diagnosis Localized osteoarthritis of left knee- Primary [facility] Diagnosis Primary osteoarthritis of knees, bilateral- Primary Osteoarthritis of left shoulder, unspecified osteoarthritis type Immunization due documented in this [facility] Diagnosis Osteoarthritis of left shoulder, unspecified osteoarthritis type- Primary [facility] Diagnosis Hordeolum externum of right upper eyelid- Primary Blepharitis of right upper eyelid, unspecified type Age-related osteoporosis without current pathological fracture Encounter for immunization documented in this [facility] Diagnosis Diarrhea, unspecified type- Primary Primary osteoarthritis of knees, bilateral Vitamin D deficiency Cobalamin deficiency Other B-complex deficiencies Age-related osteoporosis without current pathological fracture Nausea and vomiting, unspecified vomiting type documented [facility] this [facility] Diagnosis Age-related osteoporosis without current pathological fracture- Primary [facility] Diagnosis Hypothyroidism Unspecified hypothyroidism Deficiency of other specified B group vitamins Vitamin D deficiency, unspecified Hordeolum externum of right upper eyelid documented in this encounter [facility] Diagnosis Encounter for subsequent annual wellness visit (AWV) in Medicare patient- Primary documented in this encounter [facility]* Diagnosis Hyperlipidemia, unspecified documented in this encounter [facility]* Diagnosis Hyperlipidemia, unspecified hyperlipidemia type- Primary Hypothyroidism, unspecified type Elevated blood pressure reading Elevated blood pressure reading without diagnosis of hypertension Cobalamin deficiency Other B-complex deficiencies documented in this encounter [facility]* Diagnosis Hypothyroidism Unspecified hypothyroidism documented in this encounter [facility]* Diagnosis Acute pain of right shoulder- Primary Nontraumatic complete tear of right rotator cuff documented in this encounter [facility] HealthcareEvaluation note* Diagnosis Acute pain of right shoulder- Primary Rotator cuff arthropathy, right documented in this encounter [facility] HealthcareEvaluation note* Diagnosis Gastroenteritis due to norovirus- Primary Degenerative lumbar spinal stenosis Spinal stenosis of lumbar region Hiatal hernia Diaphragmatic hernia without mention of obstruction or gangrene Lichen planus atrophicus Lichen planus documented in this encounter [facility]* Diagnosis Cobalamin deficiency Other B-complex deficiencies documented in this encounter [facility]* Diagnosis Hyperlipidemia, unspecified documented in this encounter [facility] SystemInstructionsNot on filedocumented in this encounter [facility] filedocumented in this encounter [facility] Health SystemInstructionsNot on filedocumented in this encounter [facility]* Attachments The following attachments cannot be sent through Care Everywhere. * Osteoarthritis Discharge Instructions (Frisian) documented [facility]ructionsNot on file documented in this encounter[facility] SystemInstructionsNot on file documented in this encounterPro[facility] SystemInstructionsNot on file documented in [facility] SystemInstructionsNot on file documented in this encounterPro[facility] SystemInstructionsNot on file documented in this encounterPro[facility] SystemInstructionsNot on file documented in this [facility] SystemInstructionsNot on file documented in this [facility] SystemInstructionsNot on file documented in this encounter[facility] Health SystemInstructionsNot on file documented in this encounter[facility] Health SystemInstructionsNot on file documented in this encounter[facility] SystemInstructionsNot on file documented in [facility] Summary Purpose Family History No [...] DATE CREATED AUTHOR AUTHOR'S ORGANIZ ATION 08/29/2022 [facility] DATE CREATED AUTHOR AUTHOR'S ORGANIZ ATION 08/21/2024 [facility] DATE CREATED AUTHOR AUTHOR'S ORGANIZ ATION 10/25/2024 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 Relationship Specialty Start Date End Date Sangeetha Quick MD [address] [place] [address] PCP - General Internal Medicine 09/10/23 [employer] Relationship Specialty Start Date End Date Sangeetha Quick MD [address] [place] [address] PCP - General Internal Medicine 09/10/23 [employer] Relationship Specialty Start Date End Date Sangeetha Quick MD [address] [place] [address] PCP - General Internal Medicine 09/10/23 [employer]er [employer] Relationship Specialty Start Date End Date Sangeetha Quick DO [address] [place] [address] PCP - General 11/09/13 [employer] Relationship Specialty Start Date End Date Sangeetha Quick DO [address] [place] [address] PCP - General 11/09/13 [employer] Relationship Specialty Start Date End Date Sangeetha Quick DO [address] [place] [address] PCP - General 11/09/13 [employer] Relationship Specialty Start Date End Date Sangeetha Quick DO [address] [place] [address] PCP - General 11/09/13 [employer] Relationship Specialty Start Date End Date Sangeetha Quick DO [address] [place] [address] PCP - General 11/09/13 [employer] Relationship Specialty Start Date End Date Sangeetha Quick DO [address] [place] [address] PCP - General 11/09/13 [employer] Relationship Specialty Start Date End Date Sangeetha Quick DO [address] [place] [address] PCP - General 11/09/13 [employer]er [employer] Relationship Specialty Start Date End Date Sangeetha Quick DO [address] [place] [address] PCP - General 11/09/13 [employer] Relationship Specialty Start Date End Date Sangeetha Quick DO [address] [place] [address] PCP - General 11/09/13 [employer] Relationship Specialty Start Date End Date Sangeetha Quick DO [address] [place] [address] PCP - General 11/09/13 [employer] Relationship Specialty Start Date End Date Sangeetha Quick DO [address] [place] [address] PCP - General 11/09/13 [employer] Relationship Specialty Start Date End Date Sangeetha Quick DO [address] [place] [address] PCP - General 11/09/13 [employer] Relationship Specialty Start Date End Date Sangeetha Quick DO [address] [place] [address] PCP - General 11/09/13 [employer] Relationship Specialty Start Date End Date Sangeetha Quick MD PCP - General Internal Medicine 09/10/23 [employer] Relationship Specialty Start Date End Date Sangeetha Quick MD PCP - General Internal Medicine 09/10/23 [employer] Relationship Specialty Start Date End Date Sangeetha Quick MD PCP - General Internal Medicine 09/10/23 [employer] Relationship Specialty Start Date End Date Sangeetha Quick MD PCP - General Internal Medicine 09/10/23 [employer] Relationship Specialty Start Date End Date Sangeetha Quick DO [address] [place] [address] PCP - General 11/09/13 Reason for Visit [...] Age-related osteoporosis without current pathological fracture Procedures MN ZOLEDRONIC ACID 1MG MN INJECTION,THERAP/PROPH/DIAG NOST, IV PUSH, INITIAL DRUG Sangeetha Quick DO [address] [place] [address] Phone: tel: fax: Alicia Gaston [facility] - Medical On[facility] [address] [place] [phone] Phone: tel: fax: Referral ID Status Reason Start Date Expiration Date V isits Requested Visits Authorized [id number] Authorized 12/31/2022 01/29/2025 1 1 Reason Comments [...] BE BASED ON THE PRIMARY CLINICAL RECORDS. [facility]. provides no warranty or guarantee of the accuracy or completeness of information in this document.
--- NOTE | 2025-01-07 08:36 | PM.CN ---
Consult Note: HPI Data of Consult Patient: known to practice within the last 3 years Consult date: 01/07/25 Requesting Physician: Rosina Fleming NP Primary Care Provider: SANGEETHA QUICK Consult Narrative Reason for consult: low back and BLE pain Narrative: Rach Abrams a pleasant 79 year old female presents for evaluation of severe low back and BLE pain. patient rating pain 5/10 increased with twisting, pushing, pulling, standing, walking, lifting, stairs, bending, activity. pain improved with sitting and heat. recently underwent bilateral L4-5 TFESI with 50% improvement, noting no pain in LLE and improvement in NC symptoms in RLE. continues to endorse moderate to severe RLE pain and cramping intermittently. utilizing gabapentin 100mg BID-TID, tizanidine, tramadol, tylenol prn without side effects. cc:: CC: Rosina Fleming NP Review of Systems ROS Musculoskeletal Reports: back pain and extremity pain PFSH PFSH Medical History (Updated 12/28/24 @ 07:46 by Luzmaria Shannon) Rheumatoid arthritis ?M06.9 - Rheumatoid arthritis, unspecified (ICD-10) History of rectocele Low back pain ?M54.50 - Low back pain, unspecified (ICD-10) Hypothyroid ?E03.9 - Hypothyroidism, unspecified (ICD-10) Surgical History (Updated 12/28/24 @ 07:44 by Luzmaria Shannon) History of cholecystectomy ?Z90.49 - Acquired absence of other specified parts of digestive tract (ICD-10) H/O right heart catheterization ?Z98.890 - Other specified postprocedural states (ICD-10) History of hysterectomy ?Z90.710 - Acquired absence of both cervix and uterus (ICD-10) Meds Home Medications and Allergies Home Medications ?Medication ?Instructions ?Recorded ?Confirmed ?Type acetaminophen 325 mg tablet (Aphen) 650 mg PO Q6H PRN pain 10/10/22 12/28/24 History levothyroxine 50 mcg capsule 50 mcg PO DAILY 10/11/22 12/28/24 History rosuvastatin 10 mg tablet 10 mg PO DAILY 10/11/22 12/28/24 History zoledronic acid 5 mg/100 mL in ea IV .1 YEAR 01/10/23 History mannitol 5 %-water intravenous piggybck (Reclast) cholecalciferol (vitamin D3) 1,250 50,000 unit PO QWEEK 09/11/23 12/28/24 History mcg (50,000 unit) capsule estradiol 0.01% (0.1 mg/gram) 0.25 appful vaginal DAILY PRN 09/11/23 12/28/24 History vaginal cream itching gabapentin 100 mg capsule 100 mg PO TID #90 caps 12/17/24 12/28/24 Rx ropinirole 0.25 mg tablet 0.25 mg PO .QHS #90 tabs 12/17/24 12/28/24 Rx tizanidine 2 mg tablet 2 mg PO BID PRN muscle spasticity 12/17/24 12/28/24 Rx #180 tabs tramadol 50 mg tablet 50 mg PO TID PRN pain #90 tabs 12/17/24 12/28/24 Rx Allergies Allergy/AdvReac Type Severity Reaction Status Date / Time aspirin Allergy Hives Verified 12/28/24 07:39 codeine Allergy Hives Verified 12/28/24 07:39 iodine Allergy Blister Verified 12/28/24 07:39 latex Allergy Blister Verified 12/28/24 07:39 pregabalin (From Lyrica) Allergy Abdominal Verified 12/28/24 07:39 Pain Sulfa (Sulfonamide Allergy Abdominal Verified 12/28/24 07:39 Antibiotics) Pain Exam Constitutional Documenting provider has reviewed patient's vital signs: yes Common normals: no apparent distress, oriented x3, healthy appearing, alert and well nourished General appearance: cooperative [facility] Common normals: normocephalic, hearing grossly normal bilaterally and moist oral mucous membranes Head and scalp: normocephalic Eye Common normals: PERRL Pupil: PERRL Neck & C-Spine Common normals: full ROM General: normal visual inspection Chest Common normals: inspection of chest normal Respiratory Common normals: normal respiratory effort, no retractions and no use of accessory muscles Back & Pelvis Lumbar spine/lower back: ROM limited, pain with ROM, lumbar spinal tenderness and straight leg raise positive right; straight leg raise negative left Other: decreased sensation right L4,5,S1 strength 4/5 in RLE and 5/5 in LLE Neuro Common normals: oriented x3 Sensorium/orientation: alert Psych Common normals: mental status grossly normal, thought process normal, cooperative, affect normal, speech normal and activity/motor behavior normal Speech: normal speech Thought process: normal thought process Results Additional Findings Additional findings: If on a controlled substance or opioids, I have checked an [place]AR[place] report on this patient and there are no aberrancies noted in the prescribing history.??If on a controlled substance or opioid a drug screen was completed and reviewed within the last year, and if there has not been a drug screen completed we ordered one today to monitor higher risk, state monitored pain medication use. As part of providing excellent, safe, comprehensive care, the following was completed at our patient's visit: 1. A medication reconciliation and review to ensure accurate knowledge of current/active medications, including asking our patients to inform us about any ztkg-ybt-ilieqrr medications or herbal remedies/nutritional supplements/alternative remedies. 2. A review to specifically ensure our patients have had annual screening for screening for depression, screening for tobacco use, and screening for unhealthy alcohol use. For concerning screenings had a discussion with the patient, provided patient education, and recommended follow-up with primary care provider when appropriate. If patient noted with a risk of falling, they received education on strength, gait, and balance training to prevent future risk of falling. Portions of this note may have been carried over from the previous visit and updated as appropriate. Please note this office utilizes paper charting in addition to the electronic medical record. A list of current medications, vitals, and PMH is available there as the clinical staff outside of myself do not have access to [facility] charting during the clinic day operations. As part of providing quality comprehensive care the current medications, vitals, and PMH were reviewed in the paper chart. Assessment and Plan Assessment and Plan (1) Lumbar stenosis with neurogenic claudication: Assessment and Plan: bilateral L4-5 TFESI 50% improvement ongoing (2) Sacroiliitis: (3) DDD (degenerative disc disease), lumbar: (4) Chronic prescription opiate use: Assessment and Plan: I feel these medications are improving the patient's quality of life and allow them to tolerate activities of daily living as well as participate in recreational activity.? The patient does not report intolerable side effects. The patient is NOT opioid naive and non-pharmacologic and non-opioid treatment has failed to significantly relieve the patient's pain and improve functionality. The patient has a diagnosis that is related to a somatic or visceral pain etiology. ? ?? I reviewed with the patient the potential risks and side effects with the use of? opioid medications including but not limited to respiratory depression,? sedation, and even . Within the last 12 months I have verified the patient has access to naloxone should? these effects occur. The patient was advised to let? their family know they had Naloxone in case they would need to administer? the medication. I advised the patient to avoid the use of any other? sedation substances including alcohol, THC, and benzodiazepines while? taking opioid medications due to the risk of compounding side effects and? detrimental outcomes. within the last 12 months I have reviewed the DIRECTOR PATIENT ACCOUNTING, pain treatment agreement and urine drug screen.? ?? A drug screen was completed within the last year, and no aberrancies were noted regarding their use of controlled substances. The patient understands they are subject to the terms and conditions of the pain contract that they have signed. ? ?? I have checked an OARRS report on this patient today and there are no aberrancies noted in the prescribing history.? (5) Lumbar spondylosis: Plan The patient has had over 3 months of moderate to severe low back and BLE pain with functional impairment and inadequate response to conservative care including NSAIDS (unless there are contraindication such as concurrent blood thinners), multiple oral or topical pain medications, and home exercise program/physical therapy.? Patient has completed >6 weeks of guided home exercise program and/or formal physical therapy program without relief of their symptoms.? The Oswestry Disability Index was completed, and the patient scored a 16%.?improved from prior increase gabapentin 200mg TID for lumbar stenosis with NC, risks vs benefits reviewed declining NS consultation at this time, we briefly discussed scs trial for pt to consider. handout provided continue tizanidine 4mg bid prn pain/spasms, ropinirole 0.25mg hs, continue tramadol 50mg TID PRN moderate to severe pain continue HEP as tolerated f/u 1 month
== END 2025-01-07 08:25 | disposition home or self-care (01) ==
LOC: PM 08:26
PROVIDERS: PCP Internal Medicine; Visit Provider Nurse Practitioner
DX: M48.062 Spinal stenosis, lumbar region with neurogenic claudication (principal); M46.1 Sacroiliitis, not elsewhere classified; M51.369 Other intervertebral disc degeneration, lumbar region without mention of lumbar back pain or lower extremity pain; Z79.891 Long term (current) use of opiate analgesic; M47.816 Spondylosis without myelopathy or radiculopathy, lumbar region
CPT/HCPCS: G0463

== ENCOUNTER 2025-02-11 08:46 | Outpatient (OUT) | payer MEDICARE, SELFPAY ==
--- OUTSIDE RECORDS SUMMARY | 2025-02-11 08:49 | XMS_ITS | Clinical Summary ---
Author Organization [facility] Address [address] [place] [address] Care Team Providers Care Religious Leader Name Role Phone Unavailable Primary Care Provider Unavailabl e Social History Tobacco UseTypesPacks/DayYears UsedDateSmoking Tobacco: Never AssessedUT Safety & EnvironmentAnswerDate RecordedFear of Current or Ex-PartnerNot on file 06/06/2023Emotionally AbusedNot on file06/06/2023hysically AbusedNot on file 06/06/2023Sexually AbusedNot on file06/06/2023hysically or Sexually AbusedNot on file06/06/2023CommentsUnknownSex and Gender InformationValueDate RecordedSex Assigned at BirthNot on fileLegal QjpHxubyo51/30/2022 12:44 AM EDT Gender IdentityNot on fileSexual OrientationNot on file Last Filed Vital Signs Vital SignReadingTime TakenCommentsBlood Cbdarslm144/7004 2:06 PM EDT Assjs3942 2:06 PM FGHKtwqwyyxomm09.8 ??C (98.3 ??F)08/02/2021 2:06 PM EDTRespiratory Rate--Oxygen Saturation--Inhaled Oxygen Concentration--Gxsxwh81.3 kg (163 lb 14.4 oz)08/02/2021 2:06 PM ZGVKyzfgd227.3 cm (4' 10 )08/02/2021 2:06 PM EDTBody Mass Index34.2504 2:06 PM EDT Plan of Treatment Health MaintenanceDue DateLast DoneCommentsMedicare Annual Wellness (AWV) 1945Depression Cmokgsbet88/07/1960Adult Pvbwihe9512/20/1969Pneumococcal Vaccine: 50+ Years (1 of 1 - PCV)09/07/1998Zoster Vaccines (1 of 2)12/20/1997 Fall Risk Wmdchxgpy76/07/2013COVID-19 Vaccine (2024- season)2024 Influenza Vaccine (#1)2024HIB VaccinesAged OutNo longer eligible based on patient's age to complete this topicHPV VaccinesAged OutNo longer eligible based on patient's age to complete this topicIPV VaccinesAged OutNo longer eligible based on patient's age to complete this topicMeningococcal B VaccineAged OutNo longer eligible based on patient's age to complete this topicMeningococcal VaccineAged OutNo longer eligible based on patient's age to complete this topic Rotavirus VaccinesAged OutNo longer eligible based on patient's age to complete this topic Insurance
--- OUTSIDE RECORDS SUMMARY | 2025-02-11 08:49 | XMS_ITS | Clinical Summary ---
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 Name Role Phone Rusty Newman MD Primary Care Provider [phone] Allergies Active AllergyReactionsCriticalityNoted AfykIfzkrnwsTctwrum68/28/2024 Other Reaction(s): Fever / Rash CodeineRash,IlwyjmhQkm94/12/6749Wrcfhpay40/03/2023IodineAnaphylaxisHigh 05/27/2017 Other Reaction(s): SOB / Blisters Latex04/17/20226676PrgoinoathzPjgdq04/12/2018Sulfa AntibioticsRash,UnknownLow 05/27/2017 Medications MedicationSigDispense QuantityRefillsLast FilledStart DateEnd DateStatus traMADol (Ultram) 50 MG tablet Take 50 mg by mouth 2 (two) times a day as neededActive tiZANidine (Zanaflex) 4 MG tablet TAKE 1/2-1 TABLET BY MOUTH TWICE A DAY TCEZSI3605/27/2023ctive rosuvastatin (Crestor) 10 MG tablet Take 1 tablet by mouth Daily05/31/2023ctive rOPINIRole (Requip) 0.25 MG tablet Take 0.25 mg by mouth at wzdjdnm3305/27/2023ctive levothyroxine (Synthroid, Levoxyl) 50 MCG tablet Take 1 tablet by mouth Daily05/31/2023ctive estradiol (Estrace) 0.1 MG/GM vaginal cream Use at night once or twice gzxyjg8103/19/2023ctive ergocalciferol (Vitamin D2) 1.25 MG (28642 UT) capsule TAKE 1 CASPULE BY MOUTH ONCE TIME PER WEEKActive cholecalciferol (Vitamin D-3) 1.25 MG (78020 UT) capsule Take 1 capsule by mouth 1 (one) time per week05/22/2023ctive acetaminophen (Tylenol 8 Hour) 650 MG ER tablet Take 650 mg by mouth in the morning.Active Active Problems No known active problems Social History Tobacco UseTypesPacks/DayYears UsedDateSmoking Tobacco: NeverSmokeless Tobacco: Never Tobacco Cessation:Counseling Given: Not Answered Alcohol UseStandard Drinks/WeekCommentsNot Currently0 (1 standard drink = 0.6 oz pure alcohol)CommentsUnknownSex and Gender InformationValueDate Recorded Sex Assigned at BirthNot on fileLegal PmmNrlcpt02/15/2023 7:32 PM EDTGender IdentityNot on fileSexual OrientationNot on file Last Filed Vital Signs Vital SignReadingTime TakenCommentsBlood Ixrwyyjg936/76006/01/2019 12:00 PM EST Pulse--Temperature--Respiratory Rate--Oxygen Saturation--Inhaled Oxygen Concentration--Vrlony70.2 kg (146 lb)09/10/2023 10:35 AM GWJHuvmui728.9 cm (4' 11 )09/10/2023 10:35 AM EDTBody Mass Index29.49009/10/2023 10:35 AM EDT Plan of Treatment Health MaintenanceDue DateLast DoneCommentsInfluenza Vaccine (#1)12/14/2024 01/20/2024, 01/22/2022, 04/24/2017, Additional history existsPneumococcal Vaccine: 65+ WhateUhcywinqa98/03/2022, 03/15/2016, 01/05/2015, Additional history pxpogrMzkwvxwetWmkpxhhbzfzr04/12/2024, 12/24/2022, 04/24/2021, Additional history exists Insurance Care Teams Team MemberRelationshipSpecialtyStart DateEnd Rusty Newman MD PCP - GeneralInternal Medicine09/10/23
--- OUTSIDE RECORDS SUMMARY | 2025-02-11 09:07 | XMS_ITS | CCD ---
Author Organization [facility] Care Team Providers Care Surveillance Manager Name Role Phone LAKSHMIPATHY, NARENDRANATH Attending Unava [...] Unava ilable LAKSHMIPATHY, NARYANYATH Admitting Unava ilable YUHAPrashanth, DR VIVAS Primary Care Unavailable LAKSHMIPATHY, NARENDRANATH Consulting Unava ilable SHANNEN BLAIR Consulting Unavailable LAKSHMIPATHY, NARENDRANATH Attending Unava ilable YURAFIQ, DR VIVAS Primary Care Unavailable LAKSHMIPATHY, NARENDRANATH Admitting Unava ilable LAKSHMIPATHY, NARENDRANATH Consulting Unava ilable Sangeetha Quick MD Primary Care Provider [phone] Sangeetha Quick DO Primary Care Provider [phone] Sangeetha Quick DO Primary Care Provider [phone] SANGEETHA QUICK Attending Unavailable SANGEETHA QUICK Primary Care Unavailable SANGEETHA QUICK Referring Unavailable SANGEETHA QUICK Primary Care Unavailable Sangeetha Quick MD Primary Care Provider [phone] JR. MIKE, ANGELLA Duran Attending Unavailcelestina MCKEON JR., ANGELLA Duran Referring Unavaila KATHRYN Cuevas Attending Unavailable KATHRYN CAGLE Referring Unavailable JR. MIKE, ANGELLA Duran Attending Unavaila paul MCKEON JR., ANGELLA Duran Attending Unavaila SANGEETHA Wills Attending Unavailable SANGEETHA [...] Delmer Mathias Attending Unavailable Giedraitis , Andrius Mathias Attending Unavailable Giedraitis , Andspencer Mathias Attending Unavailable Yuhas DO, Sangeetha L Primary Care Provider PATELS, SANGEETHA L Attending Unavailable YUHAS, SANGEETHA L Referring Unavailable YUHAS, SANGEETHA L Primary Care Unavailable YUHAS, SANGEETHA L Primary Care Unavailable CHEMARTIN TREVIÑO E Attending Unavailable YUHAS, SANGEETHA L Attending Unavailable YUHAS, SANGEETHA L Referring Unavailable YUHAS, SANGEETHA L Primary Care Unavailable YUHAS, SANGEETHA L Referring Unavailable YUHAS, SANGEETHA L Primary Care Unavailable YUHAS, SANGEETHA L Attending Unavailable YUHAS, SANGEETHA L Referring Unavailable YUHAS, SANGEETHA L Primary Care Unavailable YUHAS, SANGEETHA L Referring Unavailable YUHAS, SANGEETHA L Primary Care Unavailable Allergies Allergy ClassificationReported Allergen(s)Allergy TypeDate of OnsetReaction(s) Facility (1 source)AspirinDrug AllergyThe [facility] (4 sources)Codeine; Translations: [CODEINE]Drug Laydxlh07-83-8872Sro [facility] (1 source)EtodolacDrug AllergyThe [facility] (4 sources)Iodine; Translations: [IODINE]Drug Ntwikqt62-09-2214Crm [facility] (4 sources)Latex; Translations: [LATEX]Drug allergy (disorder)80-86-6885Fmg [facility] (1 source)pregabalinDrug AllergyThe [facility] (1 source)Sulfonamides (Antibiotic)Drug allergy (disorder)[facility] (12 sources)Aluminum aspirinDrug Gjshonv67-79-8935[facility] (20 sources)CodeineDrug Lhjqalp95-16-7537Abnf, [facility] (15 sources)Etodolac; Translations: [ETODOLAC]Propensity to adverse reactions 77-55-6948MMZZSaint [facility] (20 sources)IodineDrug Ldtyeyd40-08-5725PfdrlpgkbeoGoxUvljms Health System (12 sources)LatexPropensity to adverse ocdpeqikc35-50-0044MTK[facility] (15 sources)Penicillins; Translations: [PENICILLINS]Drug Qilsfldzsyr77-60-6626 [facility]Saint [facility] (20 sources)Sulfonamides (Antibiotic)Drug Aaujmumjobv04-69-2967Kxoy, Unknown [facility] (20 sources)Aspirin; Translations: [ASPIRIN, BUFFERED]Drug Xnsnttf78-15-1830 [facility] (20 sources)EtodolacDrug Cueedgd81-06-5221RrmRevind [facility] (20 sources)LatexPropensity to adverse reactions to dgsf18-92-5549Ese[address]ar[address] [place] [address] (16 sources)PenicillinsPropensity to adverse reactions to iaud60-22-3826 [facility] (14 sources)PenicillinsPropensity to adverse reactions to xgtn16-09-5818 [facility] (3 sources)Sulfonamides (Antibiotic); Translations: [SULFA (SULFONAMIDE ANTIBIOTICS)]Propensity to adverse reactions to drug (disorder)05-27-2017 [facility] Medications Current Medications MedicationDrug Class(es)DatesSig (Normalized)Sig (Original)8 hr acetaminophen 650 mg extended release oral tablet (20 sources)take 1 tablet by mouth every eight hours in the morningacetaminophen (TYLENOL) 650 mg 8 hr tablet Take 1 tablet (650 mg total) by mouth in the morning. Activeatropine sulfate 0.025 mg / diphenoxylate hydrochloride 2.5 mg oral tablet (1 source)Anticholinergic, Cholinergic Muscarinic Antagonist, Antidiarrheal Start: 12-24-2023 End: 93-58-6779dbxs 1 tablet by mouth four times daily as needed for diarrhea diphenoxylate-atropine (LOMOTIL) 2.5-0.025 mg per tablet Indications: Diarrhea, unspecified type Take 1 tablet by mouth 4 (four) times a day as needed for diarrhea for up to 5 days. 20 tablet 12/24/2023 12/29/2023 Activecephalexin 500 mg oral capsule (1 source)Cephalosporin AntibacterialStart: 10-23-2024 End: 27-89-1827mrir 1 capsule by mouth in the morning, then take 1 capsule by mouth at bedtimeCEPHalexin (KEFLEX) 500 mg capsule Take 1 capsule (500 mg total) by mouth in the morning and 1 capsule (500 mg total) before bedtime. Do all this for 7 days. 14 capsule 10/23/2024 10/30/2024 Activecholecalciferol 1.25 mg oral capsule (20 sources)Vitamin DStart: 66-87-8434vkhl 1 capsule by mouth every week cholecalciferol (VITAMIN D3) 50,000 units capsule Indications: Vitamin D deficiency, unspecified TAKE 1 CAPSULE BY MOUTH ONCE WEEKLY 12 capsule 3 02/07/2025 ActiveStart: 05-22-2023 End: 68-90-0656uqkb 1 capsule by mouth every weekcholecalciferol (VITAMIN D3) 50,000 units capsule Indications: Vitamin D deficiency, unspecified TAKE 1 CAPSULE BY MOUTH ONCE WEEKLY 12 capsule 3 02/25/2024 02/07/2025 Discontinued estradiol 0.1 mg/ml vaginal cream (20 sources)EstrogenStart: 03-19-2023 End: 61-65-9605nvaywggdY (ESTRACE) 0.01 % (0.1 mg/gram) vaginal cream Indications: Lichen planus atrophicus Use atnight once or twice weekly 42.5 g 1 11/02/2024 ActiveStart: 70-64-7922gsxjkzvmi (Estrace) 0.1 MG/GM vaginal cream Use at night once or twice weekly 03/19/2023 Activelevothyroxine sodium 0.05 mg oral tablet (20 sources)l-ThyroxineStart: 05-21-2023 End: 17-35-9077vzrh 1 tablet by mouth once dailylevothyroxine (SYNTHROID, LEVOTHROID) 50 MCG tablet Indications: Hypothyroidism TAKE 1 TABLET BY MOUTH EVERY DAY 90 tablet 1 08/30/2024 Activemeloxicam 15 mg oral tablet (10 sources)Nonsteroidal Anti-inflammatory DrugStart: 80-20-1957qzob 1 tablet by mouth in the morningmeloxicam (MOBIC) 15 mg tablet Indications: Degenerative lumbar spinal stenosis Take 1 tablet (15 mg total) by mouth in the morning. 30 tablet 11/02/2024 Activemetoclopramide 10 mg oral tablet (11 sources)Dopamine-2 Receptor AntagonistStart: 44-32-1885gucp 1 tablet by mouth once daily as needed for nauseametoclopramide (REGLAN) 10 mg tablet Indications: Hiatal hernia Take 1 tablet (10 mg total) by mouth daily as needed (nausea). 10 tablet 11/02/2024 ActiveStart: 10-23-2024 End: 41-46-5987nrvgxhbaurlovy (REGLAN) 10 mg tablet Take 0.5 tablets (5 mg total) by mouth in the morning and 0.5 tablets (5 mg total) at noon and 0.5 tablets (5 mg total) in the evening and 0.5 tablets (5 mg total) before bedtime. Do all this for 5 days. 10 tablet 10/23/2024 10/28/2024 Activeondansetron 4 mg disintegrating oral tablet (20 sources)Serotonin-3 Receptor AntagonistStart: 53-38-3433rxxrdynbuzn ODT (ZOFRAN ODT) 4 mg disintegrating tablet Indications: Nausea and vomiting, unspecified vomiting type Dissolve 1 tablet (4 mg total) on tongue every 8 (eight) hours as needed for nauseaor vomiting. 20 tablet 12/24/2023 ActiveStart: 2023 End: 59-39-5267emtuscqzlow ODT (ZOFRAN ODT) 4 mg disintegrating tablet Dissolve 1 tablet (4 mg total) on tongue 3 (three) times a day as needed for nausea for up to 3 doses. 3 tablet 2023 12/24/2023 Discontinued (Duplicate Listing) predniSONE 20 mg oral tablet (1 source)Start: 06-25-2023 End: 58-71-6864gpgc 2 tablets by mouth in the morningpredniSONE (DELTASONE) 20 mg tablet Indications: Localized osteoarthritis of left knee Take 2 tablets (40 mg total) by mouth in the morning for 5 days. 10 tablet 0 06/25/2023 06/30/2023 ActiverOPINIRole 0.25 mg oral tablet (20 sources)Nonergot Dopamine AgonistStart: 14-39-2934kWIIWHTkut (REQUIP) 0.25 mg tablet 03/15/2022 Activerosuvastatin calcium 10 mg oral tablet (20 sources)HMG-CoA Reductase InhibitorStart: 05-21-2023 End: 11-60-7221fsxh 1 tablet by mouth once dailyrosuvastatin (CRESTOR) 10 mg tablet Indications: Hyperlipidemia, unspecified TAKE 1 TABLET BY MOUTHEVERY DAY 90 tablet 1 12/08/2024 ActivetiZANidine 4 mg oral capsule (20 sources)Central alpha-2 Adrenergic AgonistStart: 60-16-0061qldq 1 capsule by mouth in the morning, then take 1 capsule by mouth at bedtimetiZANidine (ZANAFLEX) 4 mg capsule Indications: muscle spasm Take 1 capsule (4 mg total) by mouth in the morning and 1 capsule (4 mg total) before bedtime. Indications: muscle spasm. Unsure if taking. 08/02/2024 ActiveStart: 24-52-7525yakb 1 tablet by mouth twice daily as neededtiZANidine (Zanaflex) 4 MG tablet TAKE 1/2-1 TABLET BY MOUTH TWICE A DAY NEEDED 05/27/2023 ActiveStart: 07-14-2022 End: 28-00-1281dmjl 1 tablet by mouth twice daily as needed for muscle spasms tiZANidine (ZANAFLEX) 2 mg tablet Indications: Left cervical radiculopathy TAKE 1 TABLET BY MOUTH TWICE DAILY NEEDED FOR MUSCLE SPASMS 30 tablet 2 07/14/2022 08/18/2024 Discontinued (Dose adjustment)vitamin b12 1 mg oral tablet (20 sources)Vitamin S56Wkegf: 05-20-2024 End: 82-18-1751vkce 1 tablet by mouth in the morningcyanocobalamin 1000 MCG tablet Indications: Cobalamin deficiency TAKE 1 TABLET (1,000 MCG TOTAL) BYMOUTH IN THE MORNING 90 tablet 1 11/18/2024 ActiveStart: 11-07-2022 End: 32-51-2786uowe 2 tablets by mouth once dailyCyanocobalamin ER 1000 MCG tablet controlled-release Take 2 tablets by mouth Daily 11/07/2022 01/20/2024 Discontinued (Therapy completed) Completed/Discontinued Medications MedicationDrug Class(es)DatesSig (Normalized)Sig (Original)adjuvant AS01B, PF,vial 1 of 2 (SHINGRIX ADJUVANT COMPONENT-PF) suspension (1 source)Start: 07-01-2023 End: 52-80-0775vmeafioq AS01B, PF,vial 1 of 2 (SHINGRIX ADJUVANT COMPONENT-PF) suspension Indications: Immunization due Inject 0.5 mL into the appropriate muscle once for 1 dose. Repeat dose in 2 -4 months 0.5 mL 07/01/2023 Expiredclobetasol propionate 0.5 mg/ml topical cream (1 source)CorticosteroidStart: 03-19-2023 End: 47-59-4407shmzlgoneG (TEMOVATE) 0.05 % cream Indications: Lichen planus atrophicus Apply 1 Application topically in the morning and 1 Application before bedtime. 30 g 0 03/19/2023 05/30/2023 Discontinued (Patient Stopped On Own) dexamethasone 0.001 mg/mg / neomycin 0.0035 mg/mg / polymyxin b 10 unt/mg ophthalmic ointment (6 sources)Aminoglycoside Antibacterial, Polymyxin-class Antibacterial, CorticosteroidStart: 01-20-2024 End: 17-57-1842oivxhkfk-polymyxin B-dexAMETH (MAXITROL) 3.5 mg/g-10,000 unit/g- 0.1 % ointment Indications: Hordeolum externum of right upper eyelid Apply to base of eyelashes every 8 (eight) hours. 3.5 g Discontinued (Therapy completed)ergocalciferol 1.25 mg oral capsule (20 sources)Provitamin D2 CompoundStart: 02-16-2023 End: 17-55-6304wkirzngneomdlz (DRISDOL) 1,250 mcg (50,000 unit) capsule 02/16/2023 08/18/2024 Discontinued (Duplicate Listing)loperamide hydrochloride 2 mg oral tablet (1 source)Opioid AgonistStart: 12-31-2022 End: 07-28-7047eaei 1 tablet by mouth four times daily as needed for diarrhea loperamide (IMODIUM A-D) 2 mg tablet Indications: Diarrhea, unspecified type Take 1 tablet (2 mg total) by mouth 4 (four) times a day as needed for diarrhea. 30 tablet 0 12/31/2022 05/30/2023 Discontinued (Patient Stopped On Own)1 ml methylPREDNISolone acetate 40 mg/ml injection (10 sources)CorticosteroidStart: 10-21-2024 End: 69-34-3504qhfwreOQVABNYupmdq acetate (DEPO-Medrol) injection 40 mgStart: 10-21-2024 End: 88-86-947942 mg, Intra-articular, Once PRN Procedure, Starting on Sat10/21/24 at 1048, For 1 doseStart: 09-09-2024 End: 58-41-0360wqepkxFGAXYDKnvwlr acetate (DEPO-Medrol) injection 40 mgStart: 09-09-2024 End: 62-70-207776 mg, Intra-articular, Once PRN Procedure, Starting on Sat09/09/24 at 1026, For 1 doseStart: 07-25-2023 End: 02-62-9485veexrxBARJRDHolyww acetate (DEPO-MEDROL) injection 40 mgStart: 07-25-2023 End: 11-47-064503 mg, intra-articular, Once, On Mairta 07/25/23 at 1145, For 1 dose, Look-alike/sound-alike medication- verify indication for use. May alter blood glucose or insulin requirements.traMADol hydrochloride 50 mg oral tablet (20 sources)Opioid AgonistStart: 03-19-2022 End: 90-86-5989fnpAPJvS (ULTRAM) 50 mg tablet 03/19/2022 11/02/2024 Discontinued (Patient Stopped On Own)100 ml zoledronic acid 0.05 mg/ml injection (1 source)BisphosphonateStart: 02-06-2024 End: mg, intravenous, at 400 mL/hr, Administer over 15 Minutes, Once, On Marita 02/06/24 at 1445, For 1 dose, Run in a line infusing NS or D5W only. Flush with NS before and after each dose.Start: 02-06-2024 End: mg, intravenous, at 400 mL/hr, Administer over 15 Minutes, Once, On Marita 02/06/24 at 1445, For 1 dose, Run in a line infusing NS or D5W only. Flush with NS before and after each dose. Problems Active Problems Problem ClassificationProblemDateDocumented DateEpisodic/ChronicAnxiety disorders (1 source)Anxiety disorder, unspecified; Translations: [ANXIETY DISORDER UNSPECIFIED]Onset: 13-55-9465PfhnzyxOmvgythhu of lipid metabolism (20 sources)Hyperlipidemia; Translations: [Hyperlipidemia, unspecified]Onset: 051955-47-9332EzcncmjCquxogszoj infection (2 sources)Viral gastroenteritis due to [place]-like agent; Translations: [Acute gastroenteropathy due to [place] agent]Onset: 390940-85-2392SctpeikgDvrp disorders (20 sources)Depressive disorder; Translations: [Depressive disorder]Onset: 702860-57-7542IdyamoqHodwtgpphmj deficiencies (6 sources)Vitamin D deficiency; Translations: [Vitamin D deficiency, unspecified]Onset: 000670-86-5367AhsgpwuCmplcsddyldryr (20 sources)Osteoarthritis of left knee joint; Translations: [Unilateral primary osteoarthritis, left knee]Onset: 211583-15-8256UvxciekEpjwllftdugo (20 sources)Senile osteoporosis; Translations: [Age-related osteoporosis without current pathological fracture]Onset: 151813-07-5873ZgowoyaOgydb circulatory disease (1 source)Elevated blood pressure; Translations: [Elevated blood-pressure reading, without diagnosis of hypertension]02-95-8111HgdxtsihMvasv circulatory disease (1 source)Elevated blood-pressure reading, without diagnosis of hypertension; Translations: [Elevated blood-pressure reading, without diagnosis of hypertension]Onset: 07-23-7050RhldnbieZmkfc connective tissue disease (1 source)Other muscle spasm; Translations: [OTHER MUSCLE SPASM]Onset: 28-55-1788LethefwnHfsuj connective tissue disease (1 source)Pain in right foot; Translations: [Pain in right foot]05-19-2024 EpisodicOther connective tissue disease (2 sources)Nontraumatic complete rupture of rotator cuff of right shoulder; Translations: [Complete rotator cuff tear or rupture of right shoulder, not specified as traumatic]18-64-7063NpzuzyhsHzqsr hereditary and degenerative nervous system conditions (1 source)Restless legs syndrome; Translations: [RESTLESS LEGS SYNDROME]Onset: 42-57-3526JriiwujIqton inflammatory condition of skin (2 sources)Atrophic lichen planus; Translations: [Lichen planus, unspecified] 87-69-2386BbstrnbkUgdzq nervous system disorders (5 sources)Other specified mononeuropathies; Translations: [OTHER SPECIFIED MONONEUROPATHIES]Onset: 85-50-7264MllezltAtpgm nervous system disorders (4 sources)Other specified mononeuropathies of bilateral lower limbs; Translations: [OTH SPEC MONONEUROPATH MARCIANO LOW LIMB]Onset: 22-88-4375MxwtagxVdiyx nervous system disorders (5 sources)Other chronic pain; Translations: [OTHER CHRONIC PAIN]Onset: 51-45-8043OjvajzpIqinp non-traumatic joint disorders (4 sources)Other specific arthropathies, not elsewhere classified, left shoulder; Translations: [OTH SPEC ARTHROPATHIES NEC LT SHLDR]Onset: 05-18-2022 ChronicOther non-traumatic joint disorders (2 sources)Rotator cuff arthropathy of right shoulder; Translations: [Other specific arthropathies, not elsewhere classified, right shoulder]10-31-2024 ChronicOther non-traumatic joint disorders (2 sources)Pain in left knee; Translations: [Pain in joint, lower leg]01-07-2024 EpisodicOther non-traumatic joint disorders (4 sources)Pain in right shoulder; Translations: [Pain in joint, shoulder region]64-79-0624DgletaazTvcel screening for suspected conditions (not mental disorders or infectious disease) (1 source)Encounter for screening mammogram for malignant neoplasm of breast; Translations: [Encounter for screening mammogram for malignant neoplasm of breast]Onset: 19-36-4639OlppvnffYhqozyji of female genital organs (20 sources)Cystocele; Translations: [Cystocele, unspecified]Onset: 12-15-2020 76-20-3413NwafesdJnfwumjw codes; unclassified (20 sources)Obstructive sleep apnea syndrome; Translations: [Obstructive sleep apnea (adult) (pediatric)]Onset: 738114-35-5834TmauoldWhuorwbguwd; intervertebral disc disorders; other back problems (20 sources)Intervertebral disc disorders with myelopathy, lumbar region; Translations: [Other spondylosis withradiculopathy, lumbar region]Onset: 65-74-2439NktgrzcQtuutzj disorders (20 sources)Hypothyroidism; Translations: [Hypothyroidism, unspecified]Onset: 259912-59-9057YqybwdmEyqnelrvwgwy (1 source)LOW BACK PAIN, UNSPECIFIED; Translations: [LOW BACK PAIN, UNSPECIFIED] Onset: 23-50-1731Gzuutozwxuhn (1 source)swollen right eye.Since sat 01/17Onset: 01-20-2024 Past or Other Problems Problem ClassificationProblemDateDocumented DateEpisodic/ChronicAbdominal hernia (20 sources)Hiatal hernia; Translations: [Diaphragmatic hernia without obstruction or gangrene]Onset: 214895-35-6039AfntkdrrHdrdrzymh pain (2 sources)Abdominal painOnset: 17-42-7885CzezocxxHwjvvwhzewgqp and screening for infectious disease (2 sources)Immunization due; Translations: [Encounter for immunization] 14-91-8016YimaxackBfhpgoxumogj; infection of eye (except that caused by tuberculosis or sexually transmitteddisease) (5 sources)Hordeolum externum of upper eyelid of right eye; Translations: [Hordeolum externum right upper eyelid]Onset: 278631-55-7916SdzzepoiGpyn disorders (20 sources)Mood disordersOnset: 05-19-2024 Resolved: Nausea and vomiting (3 sources)Nausea and vomiting; Translations: [Nausea with vomiting, unspecified]Onset: 240941-27-9577MonzhpasAjljxgfpcbu deficiencies (20 sources)Cobalamin deficiency; Translations: [Deficiency of other specified B group vitamins]Onset: 918164-81-6386OvbsanxbUxkfq connective tissue disease (2 sources)Pain in right foot; Translations: [Pain in right foot]Onset: 80-67-1018QbdhlknqTkhjm female genital disorders (20 sources)Leukoplakia of vulva; Translations: [Circumscribed scleroderma] Onset: 819571-81-2848MqdahgimKlntj gastrointestinal disorders (1 source)Diarrhea; Translations: [Diarrhea, unspecified]78-17-6521VesghjruCcvrk gastrointestinal disorders (2 sources)Diarrhea, unspecified; Translations: [Diarrhea, unspecified]Onset: 24-12-3548WvyhquarGumkh inflammatory condition of skin (1 source)Lichen planus, unspecified; Translations: [Lichen planus, unspecified] Onset: 81-08-8233JglxfegoIzqzj skin disorders (20 sources)Alopecia; Translations: [Nonscarring hair loss, unspecified]Onset: 864566-17-2943DvjjjyebAmyyzqdsxcj; intervertebral disc disorders; other back problems (17 sources)Intervertebral disc disorders with radiculopathy, lumbar region; Translations: [Spinal stenosis, lumbar region without neurogenic claudication] Onset: 61-10-7496VoxdhilwOzsfhnqvisrm (4 sources)Acute pain of right kdncetcf06-33-1004Avddejm tract infections (1 source)Acute cystitis without hematuria; Translations: [Acute cystitis without hematuria]Onset: 72-28-9076Egshktfm Results Test NameValueInterpretationReference RangeFacilityMAMM SCREENING BILATERAL W CADon 79-01-2416VZCS SCREENING BILATERAL W CADMAMM SCREENING BILATERAL W CAD RACH MUNROE 1945 [id number] EXAM: MAMM SCREENING BILATERAL W CAD, 01/07/2025 1:55 PM CLINICAL INDICATIONS: Screening, Encounter for screening [...] of malignancy. BI-RADS: BI-RADS 1 - Negative RECOMMENDATION: Routine screening mammogram in 1 year. RISK ASSESSMENT: TC Lifetime risk: 5.78%. The patient's reported personal and family medical history was used calculate their Tyrer-Cuzick lifetime risk of malignancy. Scores less than 20% are not considered high risk per ACR guidelines and patient should continue with the above recommendation. Finalized by Telma Sheikh MD on 01/11/2025 11:03 AM 1 c MAMM 1 [facility] CENTRAL SKELETALon 01-08-2025 DEXA SCAN CENTRAL SKELETALDEXA SCAN CENTRAL SKELETAL DEXA SCAN CENTRAL SKELETAL: 01/07/2025 1:55 PM CLINICAL: Post menopausal. Exam/Technique: DEXA Scan (Dual Energy X-ray Absorptiometry) Findings: PA Lumbar Spine: T-score: -0.7, previously -1.5 Left Femoral neck: T-score: -2.7, previously -2.5. Right Femoral neck: T-score: -2.3, previously -1.8 Fracture Risk: According to FRAX, 10 year probability of any major osteoporosis-related fracture is 47.1%, 10 yearprobability of hip fracture is 35.6 % IMPRESSION: * Osteoporosis, stable to mildly progressed compared with 12/24/2022. PLEASE NOTE * T-score compares patient BMD to a reference of young normal controls. World Health Organization Classification: Osteoporosis: T-score=-2.5 or below. Osteopenia (low bone mass): T-score between -1.0 and -2.5. Normal: T-score -1.0 or above. Secondary causes of bone loss should be evaluated if clinically indicated since the etiology of lowBMD cannot be determined by BMD measurement alone. The current national osteoporosis Foundation guide recommends treating patient's with FRAX10 year risk score of greater than or equal to 3% for hip fracture or greater than or equal to 20% for major osteoporotic fracture, to reduce their fracture risk. Finalized by Alli Prajapati MD on 01/08/2025 1:42 PMNormalProMedica Bellwood General HospitalALBUMINon 00-45-7861Ipmlork [Mass/Vol]4.1 g/dLNormal3.2-5.3PKettering Health Washington TownshipComment on above:Performed By: #### CBCA #### [facility] ([address] [address] VIRCALCIUMon 32-88-2446Umvbzmp [Mass/Vol]8.8 mg/dLNormal 8.5-10.5PKettering Health Washington TownshipComment on above:Performed By: #### CBCA #### [facility] ([address] [address] VIRCREATININE, SERUMon 57-63-1159Hloojddkqo [Mass/Vol]0.62 mg/dLNormal0.40-1.00Barney Children's Medical CenterComment on above:Result Comment: METHOD TRACEABLE TO IDNH STANDARDPerformed By: #### CBCA #### [address] [address] VIREGFR (CKD-EPI) NON-RACE DEPENDENT>^90Normal>=60ProAspire Behavioral Health HospitalComment on above:Result Comment: Reported eGFR is based on the CKD-EPI 2020 equation that does not use a race coefficient.Performed By: #### CBCA #### [address] [address] VIRVITAMIN D 25 HYDROXYon 67-37-7570AUMDCSY D 25 HYD TOT80.2 ng/yGQmfpqd86.0-100.0ProAspire Behavioral Health HospitalComment on above:Order Comment: Vitamin D status 25 [place] Vitamin D Deficiency <20 ng/mLInsufficiency 20-29 ng/mLSufficiency 30-100 ng/mLToxicity >100 ng/mLNOTE: A pediatric reference range has not been established by the advertising photographer of this kit. The [employer] recommends a Vitamin D level of = or >20ng/mL in infants and children.Performed By: #### CBCA #### [facility] ([address] [address] VIRXR SPINE LUMBAR 2 OR 3 VWSon 26-33-2913DP SPINE LUMBAR 2 OR 3 VWSXR SPINE LUMBAR 2 OR 3 VWS CLINICAL [...] by Peterson Nugent MD on 11/05/2024 10:41 PMNormalUniversity Hospitals [facility] WITH AUTO DIFFERENTIALon 72-35-0943APRKGRDOR ABSOLUTE COUNT (10*3/UL) BY AUTOMATED COUNT0.0 10*3/uLNormal0.0-0.2PKettering Health Washington Township Comment on above:Performed By: #### CBCA #### [address] [address] VIRBASOPHILS RELATIVE PERCENT BY AUTOMATED COUNT0.2 %Normal [facility] Medical CenterComment on above:Performed By: #### CBCA #### [address] [address] VIRCELLAVISION DIFFERENTIAL TYPEAUTOMATED DIFFERENTIALNormal [facility] CenterComment on above:Performed By: #### CBCA #### [address] [address] VIREosinophils (Bld) [#/Vol]0.0 10*3/uLNormal0.0-0.4Bar[facility] Children's Medical CenterComment on above:Performed By: #### CBCA #### [address] [address] VIREOSINOPHILS RELATIVE PERCENT BY AUTOMATED COUNT0.2 %Normal [facility] Medical CenterComment on above:Performed By: #### CBCA #### [address] [address] VIRErythrocyte distribution width (RBC) [Ratio]15.0 %Normal 11.5-15ProAspire Behavioral Health HospitalComment on above:Performed By: #### CBCA #### [facility] ([address] [place] [address] VIRHematocrit (Bld) [Volume fraction]37.5 %Alxwkh97-12 [facility] CenterComment on above:Performed By: #### CBCA #### [facility] ([address] [place] [address] VIRHemoglobin (Bld) [Mass/Vol]12.4 g/wFXassme95.7-15.5 [facility] Medical CenterComment on above:Performed By: #### CBCA #### [facility] ([address] [place] [address] VIRLYMPHOCYTES ABSOLUTE COUNT (10*3/UL) BY AUTOMATED COUNT0.8 10*3/uLLow1.0-3.5PKettering Health Washington TownshipComment on above:Performed By: #### CBCA #### [facility] ([address] [place] [address] VIRLYMPHOCYTES RELATIVE PERCENT BY AUTOMATED COUNT5.8 %Normal [facility] Medical CenterComment on above:Performed By: #### CBCA #### [facility] ([address] [place] [address] VIRMCH (RBC) [Entitic mass]28.4 pqFviowf17-59XxlSafgooAspire Behavioral Health HospitalComment on above:Performed By: #### CBCA #### [facility] ([address] [place] [address] VIRMCHC (RBC) [Mass/Vol]33.2 g/hYLvawhz08-36LxjXjtqsuAspire Behavioral Health HospitalComment on above:Performed By: #### CBCA #### [facility] ([address] [place] [address] VIRMCV (RBC) [Entitic vol]86 aVNbnvbw59-225RzyRwbvtp [facility]remont HospitalComment on above:Performed By: #### CBCA #### [facility] ([facility]) [address] [place] [address] [place] [address] VIRMONOCYTES ABSOLUTE COUNT (10*3/UL) BY AUTOMATED COUNT0.6 10*3/uLNormal0.0-0.9ProAspire Behavioral Health HospitalComment on above:Performed By: #### CBCA #### [facility] ([facility]) [address] [place] [address] [place] [address] VIRMONOCYTES RELATIVE PERCENT BY AUTOMATED COUNT4.1 %Normal [facility] Medical CenterComment on above:Performed By: #### CBCA #### [facility] ([address] [place] [address] VIRNEUTROPHILS ABSOLUTE COUNT BY AUTOMATED COUNT12.1 10*3/uL High1.5-6.6[facility]'s Medical CenterComment on above:Performed By: #### CBCA #### [facility] ([address] [place] [address] VIRNEUTROPHILS RELATIVE PERCENT BY AUTOMATED COUNT89.7 %Normal [facility] Medical CenterComment on above:Performed By: #### CBCA #### [facility] ([address] [place] [address] VIRPlatelet mean volume (Bld) [Entitic vol]9.2 fLNormal7-12 [facility] Medical CenterComment on above:Performed By: #### CBCA #### [facility] ([address] [place] [address] VIRPlatelets (Bld) [#/Vol]275 10*3/mCIzkmlh930-218MceFzfuii [facility]ont HospitalComment on above:Performed By: #### CBCA #### [facility] ([address] [place] [address] VIRRBC COUNT4.38 X10E12/LNormal3.8-5.2PKettering Health Washington TownshipComment on above:Performed By: #### CBCA #### [facility] ([address] [address] VIRWBC (Bld) [#/Vol]13.4 10*3/uLHigh4-11ProAspire Behavioral Health HospitalComment on above:Performed By: #### CBCA #### [facility] ([address] [address] VIRCOMPREHENSIVE METABOLIC PANELon 54-98-0793Eydqfru [Mass/Vol]4.4 g/dLNormal3.2-5.3PKettering Health Washington TownshipComment on above: Performed By: #### CMP #### [facility] ([address] [address] VIRALP [Catalytic activity/Vol]59 U/GEnxigp83-775EmdQbnmmxAspire Behavioral Health HospitalComment on above:Performed By: #### CMP #### [facility] ([address] [address] VIRALT [Catalytic activity/Vol]16 U/LNormal<=31PKettering Health Washington TownshipComment on above:Performed By: #### CMP #### [facility] ([address] [address] VIRAnion gap [Moles/Vol]9 mmol/LNormal5-15ProAspire Behavioral Health HospitalComment on above:Performed By: #### CMP #### [facility] ([address] [address] VIRAST [Catalytic activity/Vol]18 U/LNormal<=41ProAspire Behavioral Health HospitalComment on above:Performed By: #### CMP #### [facility] ([address] [address] VIRBilirubin [Mass/Vol]0.6 mg/dLNormal0.3-1.2PKettering Health Washington TownshipComment on above:Performed By: #### CMP #### [facility] ([address] [place] [address] VIRCalcium [Mass/Vol]8.6 mg/dLNormal8.5-10.5PKettering Health Washington TownshipComment on above:Performed By: #### CMP #### [facility] ([address] [place] [address] VIRChloride [Moles/Vol]106 mmol/YMydxry39-992NadXxxvexAspire Behavioral Health HospitalComment on above:Performed By: #### CMP #### [address] [place] [address] VIRCO2 [Moles/Vol]23 mmol/MOrvjxp36-67SwvNikdckKettering Health Washington TownshipComment on above:Performed By: #### CMP #### [facility] ([address] [place] [address] VIRCreatinine [Mass/Vol]0.62 mg/dLNormal0.40-1.00ProAspire Behavioral Health HospitalComment on above:Result Comment: METHOD TRACEABLE TO IDMS STANDARDPerformed By: #### CMP #### [facility] ([address] [place] [address] VIREGFR (CKD-EPI) NON-RACE DEPENDENT>^90Normal>=60ProAspire Behavioral Health HospitalComment on above:Result Comment: eGFR not reported due to non- numeric value for Creatinine. Reported eGFR is based on the CKD-EPI 2021 equation that does not use a race coefficient.Performed By: #### CMP #### [facility] ([address] [place] [address] VIRGlucose [Mass/Vol]142 mg/rTEwpz44-51ZszElqdtmAspire Behavioral Health HospitalComment on above:Performed By: #### CMP #### [facility] ([facility]) [address] [place] [address] [place] [address] VIRPotassium [Moles/Vol]3.7 mmol/LNormal3.5-5.0ProAspire Behavioral Health HospitalComment on above:Performed By: #### CMP #### [facility] ([address] [place] [address] VIRProtein [Mass/Vol]7.4 g/dLNormal6.0-8.0ProAspire Behavioral Health HospitalComment on above:Performed By: #### CMP #### [facility] ([address] [place] [address] VIRSodium [Moles/Vol]138 mmol/RDfhuvp240-876OfzLlnbel [facility]ont HospitalComment on above:Performed By: #### CMP #### [facility] ([address] [place] [address] VIRUrea nitrogen [Mass/Vol]18 mg/dLNormal5-27ProAspire Behavioral Health HospitalComment on above:Performed By: #### CMP #### [facility] ([address] [place] [address] VIRCT ABDOMEN AND PELVIS WO CONTon 50-30-1426KN ABDOMEN AND PELVIS WO CONTCT ABDOMEN AND PELVIS WO CONT Nonenhanced CT [...] by Mono Mcmanus MD on 10/23/2024 10:12 AMNormalBarney Children's Medical CenterGI PANEL STOOL PATHOGEN PANELon 09-84-0821UMVIIDUTASAst detectedNormal Not DetectedProAspire Behavioral Health HospitalComment on above:Performed By: #### GIP #### [facility] ([facility]) [address] [place] [address] VIRAGGREGATIVE E COLINot detectedNormalNot DetectedProAspire Behavioral Health HospitalComment on above:Performed By: #### GIP #### [facility] ([facility]) [address] [place] [address] VIRASTROVIRUSNot detectedNormalNot DetectedBarney Children's Medical CenterComment on above:Performed By: #### GIP #### [facility] ([facility]) [address] [place] [address] VIRCAMPYLOBACTERNot detectedNormalNot DetectedProAspire Behavioral Health HospitalComment on above:Performed By: #### GIP #### [facility] ([facility]) [address] [place] [address] VIRCRYPTOSPORIDIUMNot detectedNormalNot DetectedProAspire Behavioral Health HospitalComment on above:Performed By: #### GIP #### [facility] ([facility]) [address] [place] [address] VIRCYCLOSPORANot detectedNormalNot DetectedProAspire Behavioral Health HospitalComment on above:Performed By: #### GIP #### [facility] ([facility]) [address] [place] [address] VIRE HISTOLYTICANot detectedNormalNot DetectedProAspire Behavioral Health HospitalComment on above:Performed By: #### GIP #### [facility] ([facility]) [address] [place] [address] VIRGIARDIA LAMBLIANot detectedNormalNot DetectedProMercy Health St. [facility] Hospital HospitalComment on above:Performed By: #### GIP #### [facility] ([facility]) [address] [place] [address] VIRNOROVIRUSDetectedAbnormalNot DetectedProMercy Health St. Anne Hospital HospitalComment on above:Result Comment: Detects the following: Norovirus Genogroups I, II. The advertising photographer has reported anincrease in false positive Norovirus results. If the positive test is inconsistent with clinical pre sentation, a secondary method should be used to confirm the results.Performed By: #### GIP #### [facility] ([facility]) [address] [place] [address] VIRPATHOGENIC E COLINot detectedNormalNot DetectedProMercy Health St. Anne Hospital HospitalComment on above:Performed By: #### GIP #### [facility] ([facility]) [address] [place] [address] VIRPLESIOMONASNot detectedNormalNot DetectedProMercy Health St. Anne Hospital HospitalComment on above:Performed By: #### GIP #### [facility] ([facility]) [address] [place] [address] VIRROTAVIRUS ANot detectedNormalNot DetectedProMercy Health St. Anne Hospital HospitalComment on above:Performed By: #### GIP #### [facility] ([facility]) [address] [place] [address] VIRSALMONELLANot detectedNormalNot DetectedProMercy Health St. Anne Hospital HospitalComment on above:Performed By: #### GIP #### [facility] ([facility]) [address] [place] [address] VIRSAPOVIRUSNot detectedNormalNot DetectedProMercy Health St. [facility] Hospital HospitalComment on above:Performed By: #### GIP #### [facility] ([facility]) [address] [place] [address] VIRSHIGA TOXIN E COLINot detectedNormalNot DetectedProAspire Behavioral Health HospitalComment on above:Performed By: #### GIP #### [facility] ([facility]) [address] [place] [address] VIRSHIGELLA-E COLINot detectedNormalNot DetectedProAspire Behavioral Health HospitalComment on above:Performed By: #### GIP #### [facility] ([facility]) [address] [place] [address] VIRTOXIGENIC E COLINot detectedNormalNot DetectedProAspire Behavioral Health HospitalComment on above:Performed By: #### GIP #### [facility] ([facility]) [address] [place] [address] VIRVIBRIONot detectedNormalNot DetectedProAspire Behavioral Health HospitalComment on above:Performed By: #### GIP #### [facility] ([facility]) [address] [place] [address] VIRVIBRIO CHOLERAENot detectedNormalNot DetectedProAspire Behavioral Health HospitalComment on above:Performed By: #### GIP #### [facility] ([facility]) [address] [place] [address] KATHY. ENTEROCOLITICANot detectedNormalNot DetectedProAspire Behavioral Health HospitalComment on above:Performed By: #### GIP #### [facility] ([facility]) [address] [place] [address] VIRLIPASEon 07-95-2388Yavtxq [Catalytic activity/Vol]28 U/L Zphdex49-05IryWzacwxAspire Behavioral Health HospitalComment on above:Performed By: #### LIPA #### [facility] ([facility]) [address] [place] [address] VIRMAGNESIUMon 45-67-1368Agsqlbeiv [Mass/Vol]1.8 mg/dLNormal 1.8-2.6ProAspire Behavioral Health HospitalComment on above:Performed By: #### MG #### [facility] ([address] [address] VIRPOCT NURSING URINE MACROSCOPIC UAon 78-48-8354CYTKTEYBC STUART NegativeNormalNegativeProAspire Behavioral Health HospitalComment on above:Performed By: #### NUM #### [facility] ([address] [address] VIRBLOOD/HGB NURTraceAbnormalNegativeProAspire Behavioral Health HospitalComment on above:Performed By: #### NUM #### [address] [address] VIRGLUCOSE NURNegativeNormalNegativeBarney Children's Medical Center Comment on above:Performed By: #### NUM #### [address] [address] VIRKETONES NUR15 mg/dLAbnormalNegativeProAspire Behavioral Health HospitalComment on above:Performed By: #### NUM #### [address] [address] VIRLEUKOCYTE ESTERASE NURNegativeNormalNegativeBarney Children's Medical CenterComment on above:Performed By: #### NUM #### [address] [address] VIRNITRITE NURPositiveAbnormalNegativeProAspire Behavioral Health HospitalComment on above:Performed By: #### NUM #### [address] [address] VIRPH NUR7.7Xctefp1.0, 6.0, 6.5, 7.0, 7.5, 8.0, 8.5, 5.5 [facility] Medical CenterComment on above:Performed By: #### NUM #### [facility] ([facility]) [address] [place] [address] VIRPROTEIN NURTraceAbnormalNegativeBarney Children's Medical Center Comment on above:Performed By: #### NUM #### [facility] ([facility]) [address] [place] [address] VIRSPECIFIC GRAVITY NUR1.268Uqwyhm9.010, 1.015, 1.020, 1.025 [facility] Medical CenterComment on above:Performed By: #### NUM #### [facility] ([address] [address] VIRUROBILINOGEN NUR0.2 E.U./dLNormalBarney Children's Medical Center Comment on above:Performed By: #### NUM #### [facility] ([address] [address] VIRSARS/FLU A+B/RSV BY NAAT/MOLECULAR (M4RT COLLECTION TUBE)on 66-55-6662HJFD/FLU A+B/RSV BY NAAT/MOLECULAR (M4RT COLLECTION TUBE)FLU A PCR Negative FLU B PCR Negative RSV BY PCR Negative SARS COV 2 BY PCR Not DetectedNormalNot DetectedBarney Children's Medical CenterComment on above:Order Comment: The Xpert Xpress SARS-CoV-2/Flu/RSV Plus test is [...] operators who are performing tests using either ReliOn or nChannel and is limited to laboratories that meet [...] by this test are generally detectable in upperrespiratory samples during the acute phase of infection. [...] preclude SARS-CoV-2, influenza A, influenza B and RSVinfection and should not be used as the sole basis for treatment or other patient management decisions. Negative results must be combined with clinical observations, patient history and epidemiological information. An Invalid result may occur with specimen-associated inhibition unable to be resolved with specimen repeat. Fact Sheet for Healthcare Providers: https://www.fda.gov/media/246439/download Fact Sheet for Patients: https://www.fda.gov/media/953468/downloadPerformed By: #### COVFLR #### [facility] ([place] [address] VIRNo Panel Informationon [id number]. Angella Mckeon, DO 10/31/2024 4:18 PM L Inj/Asp: R subacromial bursa on 10/21/2024 10:48 AM Indications: pain Details: 21 G needle, posterior approach Medications: 40 mg methylPREDNISolone acetate 40 MG/ML Outcome: tolerated well, no immediate complications SKIN PREPPED WITH ISOPROPYL ALCOHOL Procedure, treatment alternatives, risks and benefits explained, specific risks discussed. Consent was given by the patient. [facility]burgNo Panel Informationon [id number]. Angella Mckeon, DO 09/15/2024 7:30 AM L Inj/Asp: R subacromial bursa on 09/09/2024 10:26 AM Indications: pain Details: 21 G needle, posterior approach Medications: 40 mg methylPREDNISolone acetate 40 MG/ML Outcome: tolerated well, no immediate complications Procedure, treatment alternatives, risks and benefits explained, specific risks discussed. Consent was given by the patient. 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 [facility]burgRadiology Study observation (narrative)[facility] SpringfieldPREHENSIVE METABOLIC PANELon 77-87-7565Xsxavwr [Mass/Vol]4.3 g/dL Normal3.2-5.3PAv[facility] Ambulatory PPGComment on above:Performed By: #### CMP #### [facility] ([facility]) [address] [place] [address] VIRALP [Catalytic activity/Vol]56 U/ZQpuius63-241KlqYzhqjn Hospital Ambulatory PPGComment on above:Performed By: #### CMP #### [facility] ([facility]) [address] [place] [address] VIRALT [Catalytic activity/Vol]15 U/LNormal<=31PAv[facility] Ambulatory PPGComment on above:Performed By: #### CMP #### [facility] ([facility]) [address] [place] [address] VIRAnion gap [Moles/Vol]10 mmol/LNormal5-15[facility]ulatory PPGComment on above:Performed By: #### CMP #### [facility] ([facility]) [address] [place] [address] VIRAST [Catalytic activity/Vol]18 U/LNormal<=41Mc[facility] Ambulatory PPGComment on above:Performed By: #### CMP #### [facility] ([facility]) [address] [place] [address] VIRBilirubin [Mass/Vol]0.3 mg/dLNormal0.3-1.2PAv[facility] Ambulatory PPGComment on above:Performed By: #### CMP #### [facility] ([facility]) [address] [place] [address] VIRCalcium [Mass/Vol]9.3 mg/dLNormal8.5-10.5PAv[facility] Ambulatory PPGComment on above:Performed By: #### CMP #### [facility] ([facility]) [address] [place] [address] VIRChloride [Moles/Vol]102 mmol/FIgprwi42-936RajLqfeem Hospital Ambulatory PPGComment on above:Performed By: #### CMP #### [facility] ([facility]) [address] [place] [address] VIRCO2 [Moles/Vol]28 mmol/YGgtrub06-75SabGovpra Hospital Ambulatory PPGComment on above:Performed By: #### CMP #### [facility] ([facility]) [address] [place] [address] VIRCreatinine [Mass/Vol]0.59 mg/dLNormal0.40-1.00ProFulton [facility] Ambulatory PPGComment on above:Result Comment: METHOD TRACEABLE TO IDMS STANDARDPerformed By: #### CMP #### [facility] ([facility]) [address] [place] [address] VIREGFR (CKD-EPI) NON-RACE DEPENDENT>^90Normal>=60ProFulton County Health Center Ambulatory PPGComment on above:Result Comment: Reported eGFR is based on the CKD-EPI 2020 equation that does not use a race coefficient.Performed By: #### CMP #### [facility] ([facility]) [address] [place] [address] VIRGlucose [Mass/Vol]82 mg/uUUizesb16-71OdzPpcfge Hospital Ambulatory PPGComment on above:Performed By: #### CMP #### [facility] ([facility]) [address] [place] [address] VIRPotassium [Moles/Vol]3.7 mmol/LNormal3.5-5.0ProFulton County Health Center Ambulatory PPGComment on above:Performed By: #### CMP #### [facility] ([facility]) [address] [place] [address] VIRProtein [Mass/Vol]6.7 g/dLNormal6.0-8.0[facility] Ambulatory PPGComment on above:Performed By: #### CMP #### [facility] ([facility]) [address] [place] [address] VIRSodium [Moles/Vol]140 mmol/WIgilry051-913BdkXcxwml Hospital Ambulatory PPGComment on above:Performed By: #### CMP #### [facility] ([facility]) [address] [place] [address] VIRUrea nitrogen [Mass/Vol]17 mg/dLNormal5-27[facility] Ambulatory PPGComment on above:Performed By: #### CMP #### [facility] ([facility]) [address] [place] [address] VIRLIPID PROFILEon 37-79-2159Sudbmoxsovh [Mass/Vol]153 mg/dL Lvhkoc786-111VxwZzdkij Hospital Ambulatory PPGComment on above:Performed By: #### LIPR #### [facility] ([facility]) [address] [place] [address] VIRCholesterol in HDL [Mass/Vol]54 mg/dLNormal>39Mc[facility] Ambulatory PPGComment on above:Result Comment: HDL <40 mg/dL - High Risk HDL > or = 40mg/dL- Desirable HDL >60 mg/dL - Negative RiskPerformed By: #### LIPR #### [facility] ([facility]) [address] [place] [address] VIRCholesterol in LDL [Mass/Vol]75 mg/dLNormal<130Mc[facility] Ambulatory PPGComment on above:Result Comment: LDL <100 mg/dL - Desirable LDL >160 mg/dL - High RiskPerformed By: #### LIPR #### [facility] ([facility]) [address] [place] [address] VIRCHOLESTEROL:HDL2.9Cegwwg7.0-5.0[facility] Ambulatory PPGComment on above:Performed By: #### LIPR #### [facility] ([facility]) [address] [place] [address] VIRTriglyceride [Mass/Vol]120 mg/mXHriydf30-412[facility] PPGComment on above:Performed By: #### LIPR #### [facility] ([facility]) [address] [place] [address] VIRVERY LOW EVCKEXTSUOQ65 mg/dLNormal0-30ProF[facility]ulatory PPGComment on above:Performed By: #### LIPR #### [facility] ([facility]) [address] [place] [id number] VIRXR FOOT RT MIN 3 VWSon [id number] FOOT RT MIN 3 VWSXR FOOT RT MIN 3 VWS EXAM: XR FOOT RT MIN 3 VWS CLINICAL INFORMATION: Right foot pain. COMPARISON: None. FINDINGS: There is no evidence for an acute displaced fracture or malalignment of the foot. There is mild DJDof the first MTP joint. There are small calcaneal enthesophytes. IMPRESSION: 1. No evidence for an acute displaced fracture or malalignment of the foot. 2. 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 3. Small calcaneal enthesophytes. Finalized by Monroe Perez MD on 05/23/2024 9:39 PMNormalBarney Children's [facility] CBC AND AUTO DIFFon 00-39-4035RISFJKLO BASOPHIL0.0 X10E9/LNormal0.0-0.2ProMedAshtabula County Medical Center HospitalComment on above:Performed By: #### CBCA, CMP, THYR, 2131-12, 35637-6 #### [facility] ([id number]) [address] [place], [place] [address]YVYELWUY NEUTROPHIL4.4 X10E9/LNormal1.5-6.6ProCleveland Clinic [facility]uclid Hospital HospitalComment on above:Performed By: #### CBCA, CMP, THYR, 2131-12, 07616-0 #### [facility] ([id number]) [address], [address] [place], [place] [address]Iauiviynj/100 WBC (Bld)0.2 %NormalVan Wert County Hospital Comment on above:Performed By: #### CBCA, CMP, THYR, 2131-12, 23434-2 #### [facility] ([id number]) [address], [address] [place], [place] [address]Vrfetbzvbii (Bld) [#/Vol]0.1 10*3/uLNormal0.0-0.4ProDoctors HospitalComment on above:Performed By: #### CBCA, CMP, THYR, 2131-12, 45052-4 #### [facility] ([id number]) [address], [address] [place], [place] [address]Enbnojhdvtx/100 WBC (Bld)1.2 %NormalVan Wert County Hospital Comment on above:Performed By: #### CBCA, CMP, THYR, 2131-12, 64865-9 #### [facility] ([id number]) [address], [address] [place], [place] [address]Zqmfuoginld distribution width (RBC) [Ratio]14.9 %Normal 11.5-15.0ProDoctors HospitalComment on above:Performed By: #### CBCA, CMP, THYR, 2131-12, 15502-7 #### [facility] ([id number]) [address], [address] [place], [place] [address]Gniiwwtcsq (Bld) [Volume fraction]34.6 %Myz00-92SynTehxjk [place] HospitalComment on above:Performed By: #### CBCA, CMP, THYR, 2131-12, 97092-6 #### [facility] ([id number]) [address], [address] [place], [place] [address]Bywcylxnku (Bld) [Mass/Vol]11.2 g/dLLow11.7-15.5PProMedica Bay Park Hospital HospitalComment on above:Performed By: #### CBCA, CMP, THYR, 2131-12, 24784-0 #### [facility] ([id number]) [address], [address] [place], [place] [address]Rarizvvombu (Bld) [#/Vol]2.5 10*3/uLNormal1.0-3.5PProMedica Bay Park Hospital HospitalComment on above:Performed By: #### CBCA, CMP, THYR, 2131-12, 82321-6 #### [facility] ([id number]) [address], [address] [place], [place] [address]Bebvjagmukj/100 WBC (Bld)33.7 %NormalProCleveland Clinic Euclid Hospital Hospital Comment on above:Performed By: #### CBCA, CMP, THYR, 2131-12, 30886-5 #### [facility] ([id number]) [address], [address] [place], [place] [address]OKO (RBC) [Entitic mass]27.7 kqQfhndo70-60GmaLzjmfv [place] HospitalComment on above:Performed By: #### CBCA, CMP, THYR, 2131-12, 45465-7 #### [facility] ([id number]) [address], [address] [place], [place] [address]WJGD (RBC) [Mass/Vol]32.4 g/cCXqetwv33-16XtvFxrttz [place] HospitalComment on above:Performed By: #### CBCA, CMP, THYR, 2131-12, 48395-5 #### [facility] ([id number]) [address], [address] [place], [place] [address]VJL (RBC) [Entitic vol]86 rAFflhuf17-528KbaAiwvcn [place] HospitalComment on above:Performed By: #### CBCA, CMP, THYR, 2131-12, 40237-0 #### [facility] ([id number]) [address], [address] [place], [place] [address]Jtpeytusn (Bld) [#/Vol]0.4 10*3/uLNormal0-0.9Pro[facility] [place] HospitalComment on above:Performed By: #### CBCA, CMP, THYR, 2131-12, 42871-6 #### [facility] ([id number]) [address], [address] [place], [place] [address]Gpqwvcqts/100 WBC (Bld)5.8 %NormalVan Wert County Hospital Comment on above:Performed By: #### CBCA, CMP, THYR, 2131-12, 37890-3 #### [facility] ([id number]) [address], [address] [place], [place] [address]Xapkecxdvtv/100 WBC (Bld)59.1 %NormalVan Wert County Hospital Comment on above:Performed By: #### CBCA, CMP, THYR, 2131-12, 65886-3 #### [facility] ([id number]) [address], [address] [place], [place] [address]Jwmsxdml mean volume (Bld) [Entitic vol]9.4 fLNormal7-12 [facility] [place] [facility] HospitalComment on above:Performed By: #### CBCA, CMP, THYR, 2131-12, 45059-3 #### [facility] ([id number]) [address], [address] [place], [place] [address]Esaihwiix (Bld) [#/Vol]242 10*3/mIZjlyav248-885EkoNikoeu [place] HospitalComment on above:Performed By: #### CBCA, CMP, THYR, 2131-12, 40625-5 #### [facility] ([id number]) [address], [address] [place], [place] [address]CIN COUNT4.04 X10E12/LNormal3.80-5.20[facility] Comment on above:Performed By: #### CBCA, CMP, THYR, 2131-12, 74474-5 #### [facility] ([id number]) [address], [address] [place], [place] [address]KQB (Bld) [#/Vol]7.5 10*3/uLNormal4.0-11.0ProC[facility] Clinic [facility] Hospital HospitalComment on above:Performed By: #### CBCA, CMP, THYR, 2131-12, 03955-3 #### [facility] ([id number]) [address], [address] [place], [place] [address]XCRWTATNDFHGV METABOLIC PANELon 12-47-8271Phqwhhg [Mass/Vol]4.3 g/dLNormal3.2-5.3ProMedAshtabula County Medical Center HospitalComment on above:Performed By: #### CBCA, CMP, THYR, 2131-12, 16364-3 #### [facility] ([id number]) [address], [address] [place], [place] [address]CRQ [Catalytic activity/Vol]51 U/BNflzsy25-789UmbEhpvrx [place] HospitalComment on above:Performed By: #### CBCA, CMP, THYR, 2131-12, 65507-9 #### [facility] ([id number]) [address], [address] [place], [place] [address]GDV [Catalytic activity/Vol]10 U/LNormal0-31PWVUMedicine Harrison Community HospitalComment on above:Performed By: #### CBCA, CMP, THYR, 2131-12, 65369-2 #### [facility] ([id number]) [address], [address] [place], [place] [address]Xtfmg gap [Moles/Vol]8 mmol/LNormal5-15[facility] Comment on above:Performed By: #### CBCA, CMP, THYR, 2131-12, 19874-6 #### [facility] ([id number]) [address], [address] [place], [place] [address]RZW [Catalytic activity/Vol]17 U/LNormal0-41[facility] [place] HospitalComment on above:Performed By: #### CBCA, CMP, THYR, 2131-12, 29517-2 #### [facility] ([id number]) [address], [address] [place], [place] [address]Rnegmyihg [Mass/Vol]0.4 mg/dLNormal0.3-1.2PProMedica Bay Park Hospital HospitalComment on above:Performed By: #### CBCA, CMP, THYR, 2131-12, 29014-1 #### [facility] ([id number]) [address], [address] [place], [place] [address]Ccegzoa [Mass/Vol]8.8 mg/dLNormal8.5-10.5PProMedica Bay Park Hospital HospitalComment on above:Performed By: #### CBCA, CMP, THYR, 2131-12, 15268-7 #### [facility] ([id number]) [address], [address] [place], [place] [address]Ppopujsk [Moles/Vol]104 mmol/ORwaher67-814XgySdcthi [place] HospitalComment on above:Performed By: #### CBCA, CMP, THYR, 2131-12, 99320-8 #### [facility] ([id number]) [address], [address] [place], [place] [address]UK4 [Moles/Vol]28 mmol/ZLqnmpn07-67PurLvpash [facility] Comment on above:Performed By: #### CBCA, CMP, THYR, 2131-12, 46622-0 #### [facility] ([id number]) [address], [address] [place], [place] [address]Eniqprprpn [Mass/Vol]0.93 mg/dLNormal0.40-1.00ProDoctors HospitalComment on above:Result Comment: METHOD TRACEABLE TO IDMS STANDARD Performed By: #### TANNER QUINN, THYR, 2131-12, 37666-8 #### [facility] ([id number]) [address] [address] [place], [place] [address]HAD/1.73 sq M.predicted among non-blacks MDRD (S/P/Bld) [Vol rate/Area]64 mL/min/{1.73_m2}Normal>59ProDoctors HospitalComment on above: Result Comment: Reported eGFR is based on the CKD-EPI 2020 equation that does not use a race coefficient.Performed By: #### [place], CMP, THYR, 2131-12, 03055-1 #### [facility] ([id number]) [address] [address] [place], [place] [address]Hcrntqc [Mass/Vol]87 mg/gWYulffl87-29ZwsUerxgj [facility] Comment on above:Performed By: #### TANNER QUINN, THYR, 2131-12, 30261-5 #### [facility] ([id number]) [address] [address] [place], [place] [address]Xeyxbanfu [Moles/Vol]4.1 mmol/LNormal3.5-5.0ProDoctors HospitalComment on above:Performed By: #### CBCA, CMP, THYR, 2131-12, 22139-4 #### [facility] ([id number]) [address] [address] [place], [place] [address]Amjwsno [Mass/Vol]6.6 g/dLNormal6.0-8.0[facility] Comment on above:Performed By: #### CBCA, CMP, THYR, 2131-12, 99245-8 #### [facility] ([id number]) [address], [address] [place], [place] [address]Hevbvf [Moles/Vol]140 mmol/EPvkkze164-631VwoArmikf [place] HospitalComment on above:Performed By: #### CBCA, CMP, THYR, 2131-12, 73133-0 #### [facility] ([id number]) [address], [address] [place], [place] [address]Wboq nitrogen [Mass/Vol]20 mg/dLNormal5-27[facility] [place] HospitalComment on above:Performed By: #### CBCA, CMP, THYR, 2131-12, 89017-5 #### [facility] ([id number]) [address], [address] [place] [address]LSVRTOU PROFILEon 60-54-5290Ycbc T4 [Mass/Vol]0.95 ng/dLNormal 0.61-1.60[facility] HospitalComment on above:Performed By: #### CBCA, CMP, THYR, 2131-12, 88465-6 #### [facility] ([id number]) [address], [address] [place], [place] [address]MWN9.60 uIU/mLNormal0.49-4.67ProC[facility] HospitalComment on above:Performed By: #### CBCA, CMP, THYR, 2131-12, 90895-6 #### [facility] ([id number]) [address], [address] [place], [place] [address]QOKAPAG B12on 10-72-7959Bsbfxcwtg (Vitamin B12) [Mass/Vol]319 pg/hQNolaxg660-291PefOaddtz [place] HospitalComment on above:Performed By: #### CBCA, CMP, THYR, 2131-12, 90772-0 #### [facility] ([id number]) [address], [address] [place], [place] [address]Vgithkh D+Metabolites [Mass/Vol]on 35-74-5054AUOQHDR D 25 HYD TOT97.5 ng/iCIkiunc70-731NewIoecup [place] HospitalComment on above:Result Comment: Vitamin D status 25 [place] Vitamin D Deficiency <20 ng/mL Insufficiency 20-29 ng/mL Sufficiency 30-100 ng/mL Toxicity >100 ng/mL NOTE: A pediatric reference range has not been established by the advertising photographer of this kit. The [employer] recommends a Vitamin D level of = or >20ng/mL in infants and children.Performed By: #### CBCA, CMP, THYR, 2132-9, 36432-4 #### [facility] ([id number]) [address] [place], [place] [address]SR Knee - left 1 or 2 Viewson 34-60-2041Xqwceyy Result: AP and lateral views of left knee showed severe varus deformity with pgri-lj-mojp articulation to the medial joint line, flattening [...] joint disease left knee with varus deformity [facility] 1 or 2 ViewsOrdered By: Jr. Mckeon on 01-08-2024 [facility] Work Phone: XR Knee - left 1 or 2 Viewson 53-50-7705Fdznbksux Study observation (narrative)[facility]$ Arthrocentesison 62-04-7099MqofSangeetha Quick DO 07/25/2023 2:50 PM $ Arthrocentesis [...] status reviewed post-procedure vital signs reviewed and stableMANUALLY TRANSCRIBED RESULTS [facility] HospitalComprehensive metabolic panelon 30-76-1891Hvzuaqm [Mass/Vol]4.3 g/dL3.2 - 5.3 g/dLProOhiohealth Doctors Hospitalca Health SystemALP [Catalytic activity/Vol]63 U/L39 - 130 U/[facility] HospitaloMedica Health SystemALT No additional P-5'-P [Catalytic activity/Vol]15 U/L0 - 31 U/LProMedica Health SystemAnion gap [Moles/Vol]6 mmol/L5 - 15 mmol/LProMedica Health SystemAST [Catalytic activity/Vol]15 U/L0 - 41 U/[facility] HospitaloMedica Health SystemBilirubin [Mass/Vol]0.3 mg/dL0.3 - 1.2 mg/dLProMedica Health SystemCalcium [Mass/Vol]9.1 mg/dL8.5 - 10.5 mg/dLProMedica Health SystemChloride [Moles/Vol]105 mmol/L98 - 109 mmol/L [facility] SystemCO2 [Moles/Vol]31 mmol/L22 - 32 mmol/LProMedtaylor hardin secure medical facility Health SystemCreatinine [Mass/Vol]0.65 mg/dL0.40 - 1.00 mg/dLSuburban Community Hospital & [facility] System Comment on above:METHOD TRACEABLE TO IDMS STANDARDeGFR (CKD-EPI)non-race dependent- [facility] Health - DanvilleComment on above: Reported eGFR is based on the CKD-EPI 2020 equation that does not use a race coefficient. Glucose [Mass/Vol]101 mg/oOCial17 - 99 mg/dLBrown Memorial HospitalPotassium [Moles/Vol]4.4 mmol/L3.5 - 5.0 mmol/LPrGerman Hospital SystemProtein [Mass/Vol] 6.9 g/dL6.0 - 8.0 g/dLCaroMont Regional Medical Center - Mount Hollyodium [Moles/Vol]142 mmol/L134 - 146 mmol/[facility] HospitalUrea nitrogen [Mass/Vol]18 mg/dL5 - 27 mg/dL [facility] HospitalLipid 1996 panelon 63-65-0513Ryptwvgianj [Mass/Vol]140 mg/qZLcy002 - 200 mg/dLBrown Memorial HospitalCholesterol in HDL [Mass/Vol]55 mg/dL39 - PINF mg/dLBrown Memorial HospitalComment on above: HDL <40 mg/dL - High Risk HDL > or = 40mg/dL- Desirable HDL >60 mg/dL - Negative Risk Cholesterol in LDL [Mass/Vol]69 mg/dLNINF - 130 mg/dLBrown [facility] Comment on above: LDL <100 mg/dL - Desirable LDL >160 mg/dL - High Risk Cholesterol in VLDL [Mass/Vol]16 mg/dL0 - 30 mg/dLBrown [facility] Cholesterol.total/Cholesterol in HDL [Mass ratio]2.5 {ratio}1.0 - 5.0[facility] HospitalTriglyceride [Mass/Vol]82 mg/dL27 - 150 mg/dLBrown Memorial HospitalNo Panel Informationon 63-42-4291Ttmxocquynvlth and review of laboratory resultsAbnormalProTemple University Health SystemThyroid profile includes TSH FT4on 89-70-9145Ohxl T4 [Mass/Vol]0.92 ng/dL0.61 - 1.60 ng/dL [facility] Qn0.95 m[IU]/LProMedica Drew Memorial HospitalMRI SHOULDER LT WO CONon 07-54-7937VSK SHOULDER LT WO CONEXAMINATION: MRI SHOULDER LT WO CON HISTORY: Arthropathy [...] Electronically authenticated by: DL RANGEL Date: 2022-05-18 09:[address] [place], [place] [address]COMPREHENSIVE METABOLIC PANELon 79-14-2466Imirgqa [Mass/Vol]4.0 g/dLNormal3.6-5.1Quest DiagnosticsComment on above:Performed By: #### 7600, 927, 35890 #### [facility] of [address], [address] [place] [address] Drafting Instructor: Finn Akins MDAlbumin/Globulin [Mass ratio]1.9 {ratio}Normal 1.0-2.5Quest DiagnosticsComment on above:Performed By: #### 7600, 927, 77880 #### [facility] of [address], [address] [place] [address] Drafting Instructor: Finn Akins MDALP [Catalytic activity/Vol]56 U/UEjpjlk31-050 [facility] DiagnosticsComment on above:Performed By: #### 7600, 927, 32166 #### [facility] of [place] [address] Drafting Instructor: Finn Akins MDALT [Catalytic activity/Vol]18 U/LNormal6-29 Quest DiagnosticsComment on above:Performed By: #### 7600, 927, 17275 #### [facility] of [place] [address] Drafting Instructor: Finn Akins MDAST [Catalytic activity/Vol]18 U/BKgpgxe41-65 [facility] DiagnosticsComment on above:Performed By: #### 7600, 927, 47438 #### [facility] of [place] [address] Drafting Instructor: Finn Akins MDBilirubin [Mass/Vol]0.4 mg/dLNormal0.2-1.2 Quest DiagnosticsComment on above:Performed By: #### 7600, 927, 21153 #### [facility] of [place] [address] Drafting Instructor: Finn Akins MDBUN/CREATININE RATIONOT APPLICABLENormal6-22 Quest DiagnosticsComment on above:Performed By: #### 7600, 927, 77768 #### [facility] of [address], [address] [place] [address] Drafting Instructor: Finn Akins MDCalcium [Mass/Vol]8.8 mg/dLNormal8.6-10.4Quest DiagnosticsComment on above:Performed By: #### 7600, 927, 99746 #### [facility] [address], [address] [place] [address] Drafting Instructor: Finn Akins MDChloride [Moles/Vol]106 mmol/NQziblq34-204 Quest DiagnosticsComment on above:Performed By: #### 7600, 927, 08226 #### [facility] [address], [address] [place] [address] Drafting Instructor: Finn Akins MDCO2 [Moles/Vol]30 mmol/FBicoes69-26Wydnx DiagnosticsComment on above:Performed By: #### 7600, 927, 72792 #### [facility] [address], [address] [place] [address] Drafting Instructor: Finn LIUreatinine [Mass/Vol]0.67 mg/dLNormal0.60-0.93 [facility] DiagnosticsComment on above:Result Comment: For patients >49 years of age, the reference limit for Creatinine is approximately 13% higher for people identified as -Palestinian.Performed By: #### 7600, 927, 66108 #### [facility] [address], [address] [place] [address] Drafting Instructor: Finn Aknis MDeGFR NON-AFR. NGCKOYVK14 mL/min/1.18g6Bqujjv> OR = 60Quest DiagnosticsComment on above:Performed By: #### 7600, 927, 14116 #### [facility] [place] [address] Drafting Instructor: Finn Akins MDGFR/1.73 sq M.predicted among blacks MDRD (S/P/Bld) [Vol rate/Area]101 mL/min/{1.73_m2}Normal> OR = 60[facility] Comment on above:Performed By: #### 0, 927, 73226 #### [facility] [place] [address] Drafting Instructor: Finn Akins MDGlobulin (S) [Mass/Vol]2.1 g/dLNormal1.9-3.7 Quest DiagnosticsComment on above:Performed By: #### 0, 927, 70876 #### [facility] [place] [address] Drafting Instructor: Finn Akins MDGlucose [Mass/Vol]96 mg/iVSadpqf23-95Ydlww DiagnosticsComment on above:Result Comment: Fasting reference intervalPerformed By: #### 0, 927, 89333 #### [facility] [place] [address] Drafting Instructor: Finn Akins MDPotassium [Moles/Vol]3.9 mmol/LNormal3.5-5.3 Quest DiagnosticsComment on above:Performed By: #### 0, 927, 89308 #### [facility] [place] [address] Drafting Instructor: Finn kAins MDProtein [Mass/Vol]6.1 g/dLNormal6.1-8.1Quest DiagnosticsComment on above:Performed By: #### 0, 927, 54976 #### [facility] [place] [address] Drafting Instructor: Finn Akins MDSodium [Moles/Vol]143 mmol/RRmsvle498-333Aqubi DiagnosticsComment on above:Performed By: #### 7600, 927, 38858 #### [facility] of [place] [address] Drafting Instructor: Finn Akins MDUrea nitrogen [Mass/Vol]17 mg/dLNormal7-25 Quest DiagnosticsComment on above:Performed By: #### 7600, 927, 92952 #### [facility] [address], [address] [place] [address] Drafting Instructor: Finn Akins MDLIPID PANEL, [facility] 83-55-9994Gklqqrgaezw [Mass/Vol]126 mg/dLNormal<200Quest DiagnosticsComment on above:Order Comment: FASTING:YES FASTING: YESPerformed By: #### 7600, 927, 70285 #### [facility] [address], [address] [place] [address] Drafting Instructor: Finn Akins MDCholesterol in HDL [Mass/Vol]46 mg/dLLow> OR = 50Quest DiagnosticsComment on above:Order Comment: FASTING:YES FASTING: YESPerformed By: #### 7600, 927, 64679 #### [facility] [address], [address] [place] [address] Drafting Instructor: Finn Akins MDCholesterol in LDL [Mass/Vol]63 mg/dLNormal Quest DiagnosticsComment on above:Order Comment: FASTING:YES FASTING: YESResult Comment: Reference range: <100 Desirable range <100 mg/dL for primary prevention; <70 mg/dL for patients with CHD or diabetic patients with > or = 2 CHD risk factors. LDL-C is now calculated using the Aguilar-Alexey calculation, which is a validated novel method providing better accuracy than the Friedewald equation in the estimation of LDL-C. Aguilar SS et al. MCKAY. 2013;310(19): 2767-5678 (http://education.[employer].Captimo/faq/XPI269)Performed By: #### 7600, 927, 37320 #### [facility] [address], [address] [place] [address] Drafting Instructor: Finn LIUholesteromaury.total/Cholesterol in HDL [Mass ratio]2.7 {ratio}Normal<5.0Quest DiagnosticsComment on above:Order Comment: FASTING:YES FASTING: YESPerformed By: #### 7600, 927, 05071 #### [facility] [place] [address] Drafting Instructor: Finn GALAVIZ HDL RGMWIKBEZGK68 mg/dL (calc)Normal<130 Quest DiagnosticsComment on above:Order Comment: FASTING:YES FASTING: YESResult Comment: For patients with diabetes plus 1 major ASCVD risk factor, treating to a non-HDL-C goal of <100 mg/dL (LDL-C of <70 mg/dL) is considered a therapeutic option.Performed By: #### 7600, 927, 75128 #### [facility] [place] [address] Drafting Instructor: Finn Akins MDTriglyceride [Mass/Vol]86 mg/dLNormal<150Quest DiagnosticsComment on above:Order Comment: FASTING:YES FASTING: YESPerformed By: #### 7600, 927, 03584 #### [facility] [address], [address] [place] [address] Drafting Instructor: Finn Akins MDVITAMIN B12on 59-48-6376Thfuynras (Vitamin B12) [Mass/Vol]184 pg/fMXol700-7324Ixwoi DiagnosticsComment on above:Performed By: #### 7600, 927, 69330 #### [facility] [place] [address] Drafting Instructor: Finn Akins MDBASIC METABOLIC PANELon 04-50-6423Efmabqi [Mass/Vol]9.2 mg/dLNormal8.6-10.4Quest DiagnosticsComment on above:Performed By: #### 927, 42629, 98160 #### [facility] [place] [address] Drafting Instructor: iFnn Akins MDChloride [Moles/Vol]102 mmol/GUlrvsy89-182 [facility] DiagnosticsComment on above:Performed By: #### 927, 01411, 95905 #### [facility] [address], [address] [place] [address] Drafting Instructor: Finn Akins MDCO2 [Moles/Vol]28 mmol/WEqpybf16-37Ohylk DiagnosticsComment on above:Performed By: #### 927, 51892, 50142 #### [facility] [place] [address] Drafting Instructor: Finn Akins MDCreatinine [Mass/Vol]0.56 mg/dLLow0.60-0.93 [facility] DiagnosticsComment on above:Result Comment: For patients >49 years of age, the reference limit for Creatinine is approximately 13% higher for people identified as -Palestinian.Performed By: #### 927, 99002, 60495 #### [facility] [place] [address] Drafting Instructor: Finn Akins MDeGFR NON-AFR. NNBCDEUI59 mL/min/1.05y5Njqvdc> OR = 60Quest DiagnosticsComment on above:Performed By: #### 927, 92641, 35228 #### [facility] [place] [address] Drafting Instructor: Finn Akins MDGFR/1.73 sq M.predicted among blacks MDRD (S/P/Bld) [Vol rate/Area]107 mL/min/{1.73_m2}Normal> OR = 60[facility] Comment on above:Performed By: #### 927, 24839, 47693 #### [facility] [place] [address] Drafting Instructor: Finn Akins MDGlucose [Mass/Vol]97 mg/wCWkefla33-73Llwlg DiagnosticsComment on above:Result Comment: Fasting reference intervalPerformed By: #### 927, 07409, 22005 #### [facility] [place] [address] Drafting Instructor: Finn Akins MDPotassium [Moles/Vol]3.8 mmol/LNormal3.5-5.3 [facility] DiagnosticsComment on above:Performed By: #### 927, 13280, 79131 #### [facility] of [address], [address] [place] [address] Drafting Instructor: Finn ABDALLAodium [Moles/Vol]140 mmol/SBniuws432-817Iuupd DiagnosticsComment on above:Performed By: #### 927, [id number], [id number] #### [facility] of [address], [address] [place] [address] Drafting Instructor: Finn Akins MDUrea nitrogen [Mass/Vol]14 mg/dLNormal7-25 [facility] DiagnosticsComment on above:Performed By: #### 927, 40612, 51651 #### [facility] of [address], [address] [place] [address] Drafting Instructor: Finn Akins MDUrea nitrogen/Creatinine [Mass ratio]25 mg/mg High6-22Quest DiagnosticsComment on above:Performed By: #### 927, 53922, [id number] #### [facility] of [address], [address] [place] [address] Drafting Instructor: Finn Akins MDPE[facility]HE[facility]+FREE T4on [id number] T4 [Mass/Vol]1.2 ng/dLNormal0.8-1.8Quest DiagnosticsComment on above:Performed By: #### 927, 42588, [id number] #### [facility] of [address], [address] [place] [address] Drafting Instructor: Finn Akins MDPE[facility]HE[facility] Qn0.55 m[IU]/LNormal0.40-4.50Quest DiagnosticsComment on above:Performed By: #### 927, 39518, 07321 #### [facility] of [place] [address] Drafting Instructor: Finn Akins MDVITAMIN B12on [id number] (Vitamin B12) [Mass/Vol]133 pg/oJTdm633-5455Cuhts DiagnosticsComment on above:Performed By: #### 927, 42716, 79961 #### [facility] [address] [facility], [address] [place] [address] Drafting Instructor: Finn Akins MD Vital Signs Date TimeVital SignValuePerforming YnyattycnMaczlpej38-17-9428 16:15-0400Body eqercy081.9 cmJolorena Dunbars DO Work Phone: [facility] Okfsto68-44-7722 16:15-0400Body mass index (BMI) [Ratio]29.84 kg/m2Sangeetha Yuhas DO Work Phone: [facility] Hbkfiy09-69-3939 16:15-0400Body ahyahzqdwsd34.2 [degF]Sangeetha Dunbars DO Work Phone: [facility] Bpaybz28-90-9893 16:15-0400Body ooufns22.04 kgJolorena Dunbars DO Work Phone: [facility] Gobhjx78-45-8098 16:15-0400Diastolic blood csvtzynm14 mm[Hg]Sangeetha Quick DO Work Phone: [facility] Ffiizm44-76-7281 16:15-0400Heart rate 63 /minSangeetha Dunbars DO Work Phone: [facility] Jvfihu44-28-7645 16:15-0400 Respiratory rate18 /minSangeetha Dunbars DO Work Phone: [facility] Gvrzji81-98-1577 16:15-5487CgV5% (BldA) [Mass fraction]99 %Sangeetha Dunbars DO Work Phone: [facility] Dsnoyb24-48-8368 16:15-0400Systolic blood msackffg388 mm[Hg]Sangeetha Quick DO Work Phone: [facility] Ckqhjg67-95-7884 15:11-0400Body edmyxf632.9 cmSangeetha Dunbars DO Work Phone: [facility] [employer] Utixkk45-98-1903 15:11-0400Body mass index (BMI) [Ratio]31.05 kg/m2Sangeetha Quick DO Work Phone: [facility] [employer] Tvfpfv20-88-8857 15:11-0400Body ltjrucyomjh36.81 [degF]Sangeetha Quick DO Work Phone: [facility] [employer] Ivbjmk05-98-4874 15:11-0400Body ijofry21.76 kgSangeetha Quick DO Work Phone: [facility] [employer] Bmymaf46-71-0450 15:11-0400Diastolic blood nzsapark24 mm[Hg]Sangeetha Quick DO Work Phone: [facility] [employer] Rzaoqz12-12-0301 15:11-0400Heart rate 78 /minSangeetha Quick DO Work Phone: [facility] [employer] Qzfspi33-76-3114 15:11-0400 Respiratory rate20 /minSangeetha Quick DO Work Phone: [facility] [employer] Zqilkv42-86-0938 15:11-3103IyH1% (BldA) [Mass fraction]100 %Sangeetha Quick DO Work Phone: [facility] [employer] Mfmvhl80-66-7227 15:11-0400Systolic blood hyswfdqx801 mm[Hg]Sangeetha Quick DO Work Phone: [facility] [employer] Msskga67-01-4064 14:32-0500Body jffojs686.9 cmSangeetha Quick DO Work Phone: [facility] [employer] Wsszgy22-97-5243 14:32-0500Body mass index (BMI) [Ratio]30.13 kg/m2Sangeetha Quick DO Work Phone: [facility] [employer] Qvjaom58-42-5956 14:32-0500Body sswyqunimqi13.49 [degF]Sangeetha Quick DO Work Phone: [facility] [employer] Ttkrsy29-65-7908 14:32-0500Body .68 kgSangeetha Quick DO Work Phone: [facility] Gfcchc06-16-1106 14:32-0500Diastolic blood apiyabml72 mm[Hg]Sangeetha Quick DO Work Phone: [facility] [employer] Pbpelk97-20-9172 14:32-0500Heart rate 79 /minJolorena Quick DO Work Phone: [facility] [employer] Lzrmlx57-73-1257 14:32-1434LcM4% (BldA) [Mass fraction]97 %Sangeetha Quick DO Work Phone: [facility] [employer] Rfgefe26-11-5490 14:32-0500Systolic blood ufokwsxj384 mm[Hg]Sangeetha Quick DO Work Phone: [facility] [employer] Kfezcw18-02-7307 13:55-0500Body icwktp064.9 cmJolorena Quick DO Work Phone: [facility] [employer] Oahduj83-04-5258 13:55-0500Body mass index (BMI) [Ratio]29.49 kg/m2Sangeetha Quick DO Work Phone: [facility] [employer] Tqkcde46-43-4092 13:55-0500Body rjkrxa63.22 kgSangeetha Quick DO Work Phone: [facility] [employer] Xsydra52-91-5490 13:55-0500Diastolic blood drcvquxk76 mm[Hg]Sangeetha Quick DO Work Phone: [facility] [employer] Sxrsdw66-66-4377 13:55-0500Systolic blood vilalbac707 mm[Hg]Sangeetha Quick DO Work Phone: [facility] [employer] Gflugc71-29-2761 14:17-0400Body bbfgoq566.[address] [place], [place] 3244810-24-2024 14:17-0400Body mass index (BMI) [Ratio]29.63 kg/m2Pfo [address] [place] [address] [employer] Lkvegn40-32-4913 14:17-0400Body hsqtyudibtd75.2 [degF]Pfo [address] [place], [place] 3244810-24-2024 14:17-0400Body .[address] [place], [place] 3244810-24-2024 14:17-0400Diastolic blood bxzsylsi98 mm[Hg]Pfo [address] [place], [place] 3244810-24-2024 14:17-0400Heart rate79 /minPfo [address] [place], [place] 3244810-24-2024 14:-0400Respiratory rate16 /minPfo [address] [place], [place] 3244810-24-2024 14:17-8089OuW4% (BldA) [Mass fraction]99 %[address]10-24-2024 14:17-0400Systolic blood yfdljvxt963 mm[Hg] [address]10-07-2024 11:57-0400Body uctemr460.9 cmJolorena Dunbars DO Work Phone: [facility]10-07-2024 11:57-0400Body mass index (BMI) [Ratio]28.92 kg/m2Sangeetha Dunbars DO Work Phone: [facility]10-07-2024 11:57-0400Body bgvvawjtvuc78.3 [degF]Sangeetha Quick DO Work Phone: [facility]10-07-2024 11:57-0400Body qtjsau26.95 kgSangeetha Dunbars DO Work Phone: [facility]10-07-2024 11:57-0400Diastolic blood azusetdr21 mm[Hg]Sangeetha Quick DO Work Phone: [facility]10-07-2024 11:57-0400Heart rate 65 /minSangeetha Dunbars DO Work Phone: [facility]10-07-2024 11:57-0400 Respiratory rate18 /minSangeetha Dunbars DO Work Phone: [facility]10-07-2024 11:57-9252IsF1% (BldA) [Mass fraction]100 %Sangeetha Quick DO Work Phone: [facility] Xqixzg85-83-7850 11:57-0400Systolic blood wpnnshoy498 mm[Hg]Sangeetha Quick DO Work Phone: [facility] Vbvdcb69-43-0277 12:43-0400Body uwizcw361.9 cmSangeetha Quick DO Work Phone: [facility] [employer] Tpnwyl50-57-1549 12:43-0400Body mass index (BMI) [Ratio]27.91 kg/m2Jolorena Quick DO Work Phone: [facility] [employer] Ujofhg91-71-7978 12:43-0400Body phxbdedjxqb36.6 [degF]Sangeetha Quick DO Work Phone: [facility] [employer] Svfbll83-23-4158 12:43-0400Body zumuax90.69 kgJolorena Quick DO Work Phone: [facility] [employer] Hfezhv97-68-8947 12:43-0400Diastolic blood zrkmuzcp37 mm[Hg]Sangeetha Quick DO Work Phone: [facility] [employer] Ljfsxt78-23-0536 12:43-0400Heart rate 83 /minJolorena Quick DO Work Phone: [facility] [employer] Dtnqsw88-97-6749 12:43-9268HwU1% (BldA) [Mass fraction]99 %Sangeetha Quick DO Work Phone: [facility] [employer] Mtwkjz64-01-1940 12:43-0400Systolic blood yuyvvrew955 mm[Hg]Sangeetha Quick DO Work Phone: [facility] [employer] Nljnqs08-68-7958 10:52-0400Body pfxcut742.9 cmSangeetha Quick DO Work Phone: [facility] Fnggss90-46-6775 10:52-0400Body mass index (BMI) [Ratio]30.98 kg/m2Sangeetha Quick DO Work Phone: [facility]arvii[facility] 10:52-0400Body dhkdaqtmmjg36 [degF]Sangeetha Quick DO Work Phone: [facility] CenterGame [facility] Qnxpcq88-28-1842 10:52-0400Body ejarjy78.58 kgSangeetha Quick DO Work Phone: [facility] Udvwsu00-72-1730 10:52-0400Diastolic blood mm[Hg]Sangeetha Quick DO Work Phone: [facility] CenterNarvii04-11-2024 10:52-0400Heart rate 68 /minJolorena Quick DO Work Phone: [facility] Armmno21-55-7613 10:52-0243YzN0% (BldA) [Mass fraction]98 %Sangeetha Quick DO Work Phone: [facility] Lrjkqb87-63-6027 10:52-0400Systolic blood gdwigwvi016 mm[Hg]Sangeetha Quick DO Work Phone: [facility] Slpyvk48-23-3090 15:40-0400Body zmqxko606.9 cmSangeetha Quick DO Work Phone: [facility] Gcxymq79-86-9632 15:40-0400Body mass index (BMI) [Ratio]31.1 kg/m2Sangeetha Quick DO Work Phone: [facility] Yaheiw42-14-9572 15:40-0400Body nyivqffljor63.2 [degF]Sangeetha Quick DO Work Phone: [facility]Cyp[facility] [employer]03-18-2024 15:40-0400Body rihgcg72.85 kgSangeetha Quick DO Work Phone: [facility] Znxmaz52-46-4810 15:40-0400Diastolic blood mm[Hg]Sangeetha Quick DO Work Phone: [employer]03-18-2024 15:40-0400Heart rate 87 /minSangeetha Quick DO Work Phone: [facility] Fflpix43-35-9293 15:40-7780AfI2% (BldA) [Mass fraction]99 %Sangeetha Quick DO Work Phone: [facility] Tcoctf75-62-8223 15:40-0400Systolic blood xhsousnt377 mm[Hg]Sangeetha Quick DO Work Phone: [facility] [employer] Dfdkmu23-75-1326 11:23-0400Body urgmxf085.9 cmSangeetha Quick DO Work Phone: [facility] [employer] Vdwqmz33-39-5163 11:23-0400Body mass index (BMI) [Ratio]31.06 kg/m2Sangeetha Quick DO Work Phone: [facility] [employer] Ytgpyj02-45-6281 11:23-0400Body mceayqcioyk35.29 [degF]Sangeetha Quick DO Work Phone: [facility] [employer] Etswvd04-54-1188 11:23-0400Body ugxurs61.76 kgSangeetha Quick DO Work Phone: [facility] [employer] Huzlfq39-01-7421 11:23-0400Diastolic blood zbtjzxuk24 mm[Hg]Sangeetha Quick DO Work Phone: [facility] [employer] Dllmsu68-55-8455 11:23-0400Heart rate 73 /minSangeetha Quick DO Work Phone: [facility] [employer] Qlhzjx28-70-9332 11:23-2660TtM7% (BldA) [Mass fraction]97 %Sangeetha Quick DO Work Phone: [facility] [employer] Evebsn72-13-7007 11:23-0400Systolic blood eixuysko898 mm[Hg]Sangeetha Quick DO Work Phone: [facility] Ihwmzx69-00-7737 10:29-0500Body ssgwet883.9 cmSangeetha Quick DO Work Phone: [facility] [employer] HoopsHahejq21-10-6449 10:29-0500Body mass index (BMI) [Ratio]30.7 kg/m2Sangeetha Quick DO Work Phone: [facility] CenterNarvii02-15-2024 10:29-0500Body japxxzqiild62.1 [degF]Sangeetha Quick DO Work Phone: [facility] [employer] HoopsFrwdrm88-71-3772 10:29-0500Body .95 kgJolorena Quick DO Work Phone: [facility] [employer]opsOigrwt37-03-5785 10:29-0500Diastolic blood jecgeujp88 mm[Hg]Sangeetha Quick DO Work Phone: [facility] [employer] HoopsCxpbrv12-72-4018 10:29-0500Heart rate 71 /minJolorena Quick DO Work Phone: [facility] [employer] HoopsVdfuxy53-77-2150 10:29-1001ZsS7% (BldA) [Mass fraction]96 %Sangeetha Quick DO Work Phone: [facility] [employer] HoopsVhucsx18-27-2800 10:29-0500Systolic blood clwoxnyy226 mm[Hg]Sangeetha Quick DO Work Phone: [facility] [employer] [facility] Encounters Encounter DateEncounter TypeCare ProviderFacilityStart: 02-08-2025 End: 80-57-6320Oibysrqbn encounterChajude Willis MD Work Phone: [facility] Gaston [facility] - Medical OncologyStart: 02-06-2025 End: 18-98-8714GddubnGjma Maury Quick DO Work Phone: [facility] Physicians Internal Medicine - Family MedicineComment on above:Vitamin D deficiency, unspecifiedStart: 02-05-2025 End: 30-38-8591waakepqifgCxy Infusion Chair 5[facility] Maury [facility] - Medical OncologyComment on above:Age-related osteoporosis without current pathological fracture (Primary Dx)Start: 46-71-9547fygdrvdfijYRGE L YUHAS [facility] Hospitaltart: 01-18-2025 End: 44-48-0180Ikvqlf-up encounterSangeetha Quick DO Work Phone: [facility] Internal Medicine - Family [facility] CenterComment on above:Mammography screening bilateral with CAD, Dexa scan central skeletalStart: 01-07-2025 End: 02-82-5786mijbvlwgarLWZK L YUHAParkview Health [facility] Hospitaltart: 01-04-2025 ambulatorySANGEETHA Gaston [facility]: 12-28-2024 End: 05-00-2372Igtzaifci encounterJudy Hiram D[facility]INGGood [facility] Hospitalca Physicians Internal Medicine [facility] Cent[facility]art: 12-28-2024 End: 48-13-8334chnxfauppkFrzjuib Vytautas Giedraitis MDFacility:PM Tere Start: 12-08-2024 End: 87-38-2269NzhzemVymm L Yuhas DO Work Phone: [facility] Phys[facility] Internal [facility] - [facility] TattnallComment on above:Hyperlipidemia, unspecifiedStart: 12-07-2024 End: 24-85-5591eqivdjllwjKbxcztl Vytautas Giedraitis MDFacility:PM Tere Start: 11-18-2024 End: 24-90-8749VsseasEtlo L Yuhas DO Work Phone: [facility] Internal Medicine - Family MedicineComment on above:Cobalamin deficiencyStart: 11-06-2024 End: 01-42-8882Cutjwl-up encounterSangeetha Quick DO Work Phone: [facility] Internal Medicine - Family MedicineComment on above:X-ray spine lumbar 2 or 3 viewsStart: 11-05-2024 End: 90-70-9286Fhgszrdar encounterJudivelisse Gandhi CMAUniversity Hospitals Health System Physicians Internal Medicine [facility] Centertart: 11-03-2024 End: 37-68-7618vsxlmfzbvaVFVI L [facility] Hospitaltart: 11-02-2024 End: 39-94-7364Anoptn outpatient visit 25 minutesJolorena [facility] DO Work Phone: [facility] Internal Medicine - Family MedicineComment on above:Gastroenteritis due to norovirus (Primary Dx); Degenerative lumbar spinal stenosis; Hiatal hernia; Lichen planus atrophicusStart: 11-02-2024 End: 82-87-8224qflobwgpimLULAHudson River [facility] Hospital Ambulatory PPGStart: 10-26-2024 End: 77-57-0758Xrwumn-up encounterUniversity Hospitals [facility] - EmergencyComment on above:GI Panel(stool pathogen panel)Start: 10-26-2024 End: 80-43-2709Kvprzydwy encounterMarcia Holder [facility] CENTERProMedivt Physicians Internal Medicine - Family MedicineComment on above:Er Follow-upStart: 10-23-2024 End: 14-03-0637Qbphvhzyv department patient visitJOLake [facility] HospitalStart: 10-21-2024 End: 72-46-7252Ejfcot flowsheetJr. Angella Mckeon DO Work Phone: [facility] ORTHOStart: 10-21-2024 End: 97-79-5342Hmxobc flowsheetJr. Angella Mckeon DO Work Phone: [facility] ORTHOStart: 10-21-2024 End: 35-96-6272Nawjha outpatient visit 25 minutesJr. Angella Mckeon DO Work Phone: noms [facility] ORTHOComment on above:Acute pain of right shoulder (Primary Dx); Rotator cuff arthropathy, rightStart: 10-21-2024 End: 05-44-6548khwbeigxfgMX., ANGELLA MCKEONNot AvailableStart: 09-09-2024 End: 63-26-7359Bgmlrh flowsheetJr. Angella Mckeon DO Work Phone: [facility] ORTHOStart: 09-09-2024 End: 53-36-9371Fwdynf flowsheetJr. Angella Mckeon DO Work Phone: noms [facility] ORTHOStart: 09-09-2024 End: 51-62-5176Emjurg outpatient visit 25 minutesJrTran Duran Mike DO Work Phone: noms [facility] ORTHOComment on above:Acute pain of right shoulder (Primary Dx); Nontraumatic complete tear of right rotator cuffStart: 09-09-2024 End: 46-99-6285oarrgbzpvgBL., GEORGE C STEPANICNot AvailableStart: 08-30-2024 End: 01-49-8250VmeuseUtke L Yuhas DO Work Phone: [facility] Internal Medicine - Family MedicineComment on above:HypothyroidismStart: 08-18-2024 End: 55-38-6546Hfetgq outpatient visit 25 minutesJohn L Yuhas DO Work Phone: [facility] Internal Medicine - Family MedicineComment on above:Hyperlipidemia, unspecified hyperlipidemia type (Primary Dx); Hypothyroidism, unspecified type; Elevated blood pressure reading; Cobalamin deficiencyStart: 08-18-2024 End: 26-65-7725pgolnckosnAVPR [facility] PPGStart: 08-18-2024 End: 25-89-2618rykjkvtkvyHOYS L [facility] HospitalStart: 07-13-2024 End: 76-06-5961znddndimpsCtbxfrd Vytautas Giedraitis MDFacility:PM Tere Start: 06-09-2024 End: 07-88-3725QdtjgbIetf L Yuhas DO Work Phone: [facility] Internal Medicine - Family MedicineComment on above:Hyperlipidemia, unspecifiedStart: 05-22-2024 End: 53-35-8396kzvkhudmszFLTN L [facility] HospitalStart: 05-19-2024 End: 84-28-2324rehqlastodQOGY L HASPProMedica [facility] HospitalStart: 05-19-2024 End: 77-56-1314Efbzbk outpatient visit 25 minutesJohn L Yuhas DO Work Phone: [facility] Internal Medicine - Family MedicineComment on above:Hypothyroidism, unspecified type (Primary Dx); Right foot pain; Vitamin D deficiency; Cobalamin deficiency; Lichen planus atrophicusStart: 05-19-2024 End: 01-30-3130qvvthggflyKUNSNYU [facility] Ambulatory PPGStart: 02-27-2024 End: 89-09-8896ygbhgzpbmdVJPSNYU [facility] Ambulatory PPGStart: 02-27-2024 End: 39-97-9591Aafldos encounter procedureSangeetha Quick DO Work Phone: [facility] Internal Medicine - [facility]attnallComment on above:Encounter for subsequent annual wellness visit (AWV) in Medicare patient (Primary Dx)Start: 02-25-2024 End: 42-56-1514UqojwgErvt L Yuhas DO Work Phone: [facility] Internal [facility] - [facility] TattnallComment on above:Hypothyroidism; Deficiency of other specified B group vitamins; Vitamin D deficiency, unspecified; Hordeolum externum of right upper eyelidStart: 02-06-2024 End: 05-31-0613tswrthfnbwFqg Infusion Chair [address] [place] [address] - Medical OncologyComment on above:Age-related osteoporosis without current pathological fracture (Primary Dx)Start: 02-03-2024 End: 22-84-3718Mwcoadppb encounterFatoumata Chacko CMAProMedica Physicians Internal Medicine - Family MedicineStart: 01-22-2024 End: 36-66-0595Rbkezfqcs encounterJolorena Maury Quick DO Work Phone: [facility] Internal Medicine - Family MedicineStart: 01-20-2024 End: 00-78-5019Sqqvni flowsheetJr. Angella Mckeon DO Work Phone: noms FB ORTHOPAEDICSStart: 01-20-2024 End: 56-90-7018Naklnt flowsheetJr. Angella Mckeon DO Work Phone: noms FB ORTHOPAEDICSStart: 01-20-2024 End: 89-65-0462bfnwuwjvbzKRAUPiedmont [facility] Ambulatory PPGStart: 01-20-2024 End: 49-96-9901Kottkc outpatient visit 25 minutesJr. Angella Mckeon DO Work Phone: noms FB ORTHOPAEDICSComment on above:Primary osteoarthritis of left knee (Primary Dx)Hordeolum externum of right upper eyelid (Primary Dx); Blepharitis of right upper eyelid, unspecified type; Age-related osteoporosis without current pathological fracture; Encounter for immunizationStart: 01-20-2024 End: 50-86-1364jnxywbiucjJF., ANGELLA Kinney AvailableStart: 01-07-2024 End: 21-64-7162Beujxn Donny Cagle TYPE PHOTOGRAPHY SUPERVISOR Work Phone: noMS CI ORTHOPAEDICSStart: 01-07-2024 End: 59-10-3922Jaabha Donny Cagle NP Work Phone: noms CI ORTHOPAEDICSStart: 01-07-2024 End: 72-21-7468Pfoecd outpatient visit 10 minutesKathryn Cagle NP Work Phone: noms CI ORTHOPAEDICSComment on above:Primary localized osteoarthritis of left knee (Primary Dx); Left knee pain, unspecified chronicityStart: 01-07-2024 End: 84-90-2718kflqkmcbmjWRQUM T OLSENNot AvailableStart: 12-24-2023 End: 11-19-8161Ataiuz outpatient visit 25 minutesSangeetha Maury Trent DO Work Phone: [facility] Internal Medicine - Family MedicineComment on above:Diarrhea, unspecified type (Primary Dx); Primary osteoarthritis of knees, bilateral; Vitamin D deficiency; Cobalamin deficiency; Age-related osteoporosis without current pathological fracture; Nausea and vomiting, unspecified vomiting typeStart: 12-24-2023 End: 12-25-9410xdkaizafazDLHQPiedmont [facility] Ambulatory PPGStart: 12-23-2023 End: 58-51-7061Ovgizgxua encounterMarcia Holder CMAProMedica Physicians Internal Medicine - Family MedicineComment on above:Er Follow-upStart: 12-11-2023 End: 47-05-8611Krgqmeanq encounterDipika Sagastume [facility] Physicians Internal Medicine - [facility] MedicineStart: 08-21-2023 End: 95-70-2317Qppimeigz encounterDipika Sagastume [facility] Physicians Internal Medicine - [facility] MedicineStart: 07-25-2023 End: 65-11-7682Yzhnqw outpatient visit 15 minutesmyMedScorelorena JiménezCahootsy Limited DO Work Phone: [facility] Physicians Internal Medicine - Family [facility] CenterComment on above:Osteoarthritis of left shoulder, unspecified osteoarthritis type (Primary Dx)Start: 07-01-2023 End: 36-79-2239Lwtvrp outpatient visit 25 minutesmyMedScorelorena Gaston [employer] Work Phone: [facility] Physicians Internal [facility] - [facility]nallComment on above:Primary osteoarthritis of knees, bilateral (Primary Dx); Osteoarthritis of left shoulder, unspecified osteoarthritis type; Immunization dueStart: 06-25-2023 End: 19-92-8281Aicoax outpatient visit 25 minutesmyMedScorelorena Gaston [employer] DO Work Phone: [facility] Physicians Internal [facility] - [facility]attnallComment on above:Localized osteoarthritis of left knee (Primary Dx) Start: 05-30-2023 End: 94-52-9784Iodcao outpatient visit 25 minutesmyMedScorelorena JiménezCahootsy Limited DO Work Phone: [facility] Physicians Internal [facility] - [facility]allComment on above:Hypothyroidism, unspecified type (Primary Dx); Cobalamin deficiency; Hyperlipidemia, unspecified hyperlipidemia type; Osteoarthritis of left shoulder, unspecified osteoarthritis typeStart: 40-94-2703nnwxaypucbMDYGTKGFMIYX LAKSHMIPATHYFacility:G3Khqcq: 09-04-2022 ambulatoryNARENDRANATH LAKSHMIPATHYFacility:Z5Famjq: 08-28-2022 End: 49-47-9440bwuxdigtyfSJKYQKISBZAF LAKSHMIPATHYFacility:B8Kacdb: 08-16-2022 End: 12-64-5204zulivxrrxxFGQUWGHYUBJN LAKSHMIPATHYFacility:U7Ifdxk: 07-24-2022 End: 32-34-5023djkvozssgfAMPZYYWRMCIY LAKSHMIPATHYFacility:W1Nrxzb: 07-19-2022 End: 01-11-9890ninzlhokdnWQNKWEINALZB HELENESHMIPATHYFacility:A7Irbqk: 05-18-2022 End: 71-62-4308ofuzjwlwxeBS SANGEETHA DUNBARSFacility:C7Faeiz: 04-26-2022 End: 25-89-0646zajnkkgijzHC YINKA Prashanth BARRAZA .Facility:M3Ycksl: 04-03-2022 End: 62-93-7303hoeolrzadqDW YINKA S BARRAZA .Facility:O8Kzpdc: 03-27-2022 End: 08-17-8803zyvynxnxepNF YINKA S BARRAZA .Facility:G8Bwmiu: 02-08-2022 End: 10-92-6271pmxymuqyqbIA YINKA S BARRAZA .Facility:X0Mzavn: 01-16-2022 End: 12-95-0387xvcrbcwvjqAJ YINKA S BARRAZA .Facility:E9Awfky: 01-11-2022 End: 89-53-7004ljfzkjzhqrTV YINKA S BARRAZA .Facility:C3Cerje: 12-14-2021 End: 63-25-2767vqrcmpmfglSH YINKA S BARRAZA .Facility:X3Oxjkm: 09-07-2021 End: 02-17-6629qgwpfujpdsNW YINKA S BARRAZA .Facility:[address] DateProcedureProcedure DetailPerforming ClinicianStart: 08-72-2392Qoxmw depression screening assessmentSangeetha Quick DO Work Phone: Start: 48-52-3638Eohucpfdsdjwqa aspir&/inj major jt/bursa w/o usJr. Angella Duran Mike DO Work Phone: Start: 58-03-6388Hxapkuruvwvjge aspir&/inj major jt/bursa w/o usJr. Angella Duran Stepanthony DO Work Phone: Start: 50-70-8081Unvez shoulder complete minimum 2 viewsJr. Angella Duran Mike DO Work Phone: Start: 45-65-5821Pqlkh depression screening assessment Sangeetha Quick DO Work Phone: Start: 44-58-2671Mhieo depression screening assessment Sangeetha Quick DO Work Phone: Start: 76-46-1898Vnjkq depression screening assessment Sangeetha Quick DO Work Phone: Start: 16-55-3445Lfnoa depression screening assessment Sangeetha Quick DO Work Phone: Start: 31-73-7840Hrjcomfehc examination knee 1/2 views Kathryn Cagle NP Work Phone: Start: 01-63-3118Gekxru-up visitFollow-upSANGEETHA QUICK Start: 96-56-2489Qcqff depression screening assessmentSangeetha Quick DO Work Phone: Start: 97-04-5422Rkcpdodptxokrt aspir&/inj major jt/bursa w/o usJolorena Quick DO Work Phone: Start: 48-91-2977Kfzrs depression screening assessment Sangeetha Quick DO Work Phone: Start: 80-18-2757Pynad depression screening assessment Sangeetha Quick DO Work Phone: Start: 62-51-8486Xaosh depression screening assessment Sangeetha Quick DO Work Phone: Start: 53-90-6440Hvwvl depression screening assessment Sangeetha Quick DO Work Phone: Plan of Treatment DateCare ActivityDetailAuthorStart: 58-66-3943Jjbhrlxopv ScreeningDepression ScreeningProMedica Health SystemStart: 00-82-3668Nity Risk ScreeningFall Risk ScreeningProMedica Health SystemStart: 38-21-8453Bvylfvi ScreeningTobacco ScreeningProMedica Health SystemStart: 34-06-5056Lxmltlblwi ScreeningDepression ScreeningProMedica Health SystemStart: 48-02-2294Hqnd Risk ScreeningFall Risk ScreeningProOhiohealth Doctors Hospitalca Health SystemStart: 36-14-8040Fwmrxix ScreeningTobacco ScreeningProMedica Health SystemStart: 79-24-1191Aaujbkbbfi ScreeningDepression ScreeningProAkron Children'S Hospital SystemStart: 80-97-4245Cpbo Risk ScreeningFall Risk ScreeningProOhiohealth Doctors Hospitalca [facility] SystemStart: 40-52-9447Bxxdwvg ScreeningTobacco ScreeningSub[facility] SystemStart: 03-02-2025 End: 21-48-3550Zwqdgmd encounter uamimotnd82/18/2025 2:20 PM EST Office Visit [facility] [address] [place] [address] FcpRxavzl [facility]icians [facility] - [facility] MedicineStart: 36-02-3532Lijnxroxxt ScreeningDepression ScreeningSuburban Community Hospital & [facility] SystemStart: 61-88-4505Hany Risk ScreeningFall Risk ScreeningProAkron Children'S Hospital SystemStart: 11-14-2025Medicare Annual Wellness VisitMedicare Annual Wellness VisitProAkron Children'S Hospital SystemStart: 02-05-2025 End: 74-81-5765fewjxjjwcn72/24/2025 2:30 PM EDT Infusion Alicia [facility] - Medical Oncology [address] [place] [address] Alicia Gaston [facility] - Medical OncologyStart: 58-94-8400Gownw BMI ScreeningAdult BMI ScreeningSuburban Community Hospital & [facility] SystemStart: 26-94-2707Lynwzaqxdx ScreeningDepression ScreeningSuburban [facility] SystemStart: 15-24-0736Lozw Risk ScreeningFall Risk ScreeningSuburban [facility] & [facility] SystemStart: 74-82-2103Batwzps ScreeningTobacco ScreeningSuburban [facility] SystemStart: 01-07-2025 End: 18-42-4053Pezvkgg encounter procedureSt[facility] - [facility]/DEXA ImagingStart: 86-60-8474Ztnjo BMI ScreeningAdult BMI Screening [facility] SystemStart: 69-61-0899Mzfgngpzxo ScreeningDepression Screening [facility] SystemStart: 19-92-7217Yxct Risk ScreeningFall Risk Screening [facility] SystemStart: 32-79-3497Bteucrt ScreeningTobacco Screening [facility] SystemStart: 12-16-2024 End: 61-73-3058Nsodebp encounter wnemsuxvh06/03/2025 10:30 AM EDT Office Visit [facility] [address] [place] [phone] Jr. Angella Mckeon, DO [address] [facility] [address] [place] [address] [facility] ORTHOStart: 95-53-3489HNLNQ-19 Vaccine ( season)COVID-19 Vaccine ()[facility] SystemStart: 34-95-8715Kxvibawbd vaccinationProMedica Health SystemStart: 11-02-2024 End: 66-95-5986BS Lumbar spine 2 or 3 ViewsX-ray spine lumbar 2 or 3 views Imaging Routine Degenerative lumbar spinal stenosis Expected: 11/02/2024, Expires: 11/02/2025[facility] Work Phone: Comment on above:Expected: 11/02/2024, Expires: 11/02/2025Start: 10-21-2024 End: 21-31-2523Zjholjk encounter procedureN[facility] ORTHOComment on above:Arrived Start: 09-09-2024 End: 26-37-8690Wbwkasf encounter clwznibfo97/28/2025 9:30 AM EDT Office Visit [facility] [address] [place] [address] Jr. Angella Mckeon, DO [address] [facility] [address] [place] [address] Acute pain of right shoulderNOMS SWS ORTHOComment on above:Acute pain of right shoulderStart: 18-06-0169Omtxk BMI ScreeningAdult BMI ScreeningProMedica Health SystemStart: 21-78-1922Gcifhnrmtz ScreeningDepression ScreeningProMedica Health SystemStart: 99-63-7909Kxbv Risk ScreeningFall Risk ScreeningProOhiohealth Doctors Hospitalca Health SystemStart: 14-75-7405Zpuhdjh ScreeningTobacco ScreeningProMedica Health SystemStart: 95-71-2363KMHUH-19 Vaccine ( season)COVID-19 Vaccine ()[facility] SystemStart: 11-45-3851Ytxnc BMI ScreeningAdult BMI ScreeningSuburban [facility] & [facility] SystemStart: 25-26-9546Yzirkttmaw ScreeningDepression ScreeningSub[facility] SystemStart: 33-50-9683Dmsi Risk ScreeningFall Risk ScreeningSub[facility] SystemStart: 90-33-5494Ggiwizp ScreeningTobacco ScreeningSuburban [facility] & [facility] SystemStart: 08-78-8154Ulesy BMI ScreeningAdult BMI ScreeningSuburban [facility] SystemStart: 05-40-1189Uzllyvskif ScreeningDepression ScreeningSub[facility] SystemStart: 40-21-9006Irra Risk ScreeningFall Risk ScreeningSuburban [facility] & [facility] SystemStart: 97-23-7037Ctgxjrj ScreeningTobacco ScreeningBrown [facility] Start: 97-24-9050Mxyfn BMI ScreeningAdult BMI ScreeningBrown Memorial Hospital Start: 36-50-9485Jkdeawyano ScreeningDepression ScreeningSub[facility] Start: 89-78-2106Ligb Risk ScreeningFall Risk ScreeningBrown Memorial Hospital Start: 84-29-8389Pdjeqej ScreeningTobacco ScreeningSuburban [facility] & [facility] SystemStart: 11-39-6220UEGTC-19 Vaccine ( season)COVID-19 Vaccine ()[facility] Hollytart: 87-67-1228ZHiR,Tdap and Td Vaccines (2 - Td or Tdap)DTaP,Tdap and Td Vaccines (2 - Td or Tdap)[facility] SystemStart: 05-19-2024 End: 14-06-6843NF Foot - right 3 ViewsX-ray foot right minimum 3 views Imaging Routine Right foot pain Expected: 05/19/2024, Expires: 05/19/2025[facility] Work Phone: Comment on above:Expected: 05/19/2024, Expires: 05/19/2025Start: 03-19-2024 End: 06-50-6130Wxdyedi encounter huggyncyv51/05/2024 4:15 PM EST Office [facility] [address] [place] [address] Sangeetha Quick, DO [address] [facility] [place], [place] [facility] MedicineStart: 03-16-2024 End: 34-35-1945Wnegezv encounter vakdgpluc44/02/2024 10:00 AM EST Office Visit [facility] [address] [place] [phone] Kathryn Cagle, TYPE PHOTOGRAPHY SUPERVISOR [address] [facility] [place], [place] [phone] [facility]THOPAEDICSStart: 02-27-2024 End: 64-53-0455Pkpluua encounter wqiwfsmuk61/14/2024 1:40 PM EST [facility] [address] [place] [address] [phone] Physicians [facility] MedicineStart: 01-20-2024 End: 07-67-9943Azkdccr encounter procedureNOMS FB ORTHOPAEDICSComment on above: ArrivedStart: 01-07-2024 End: 18-31-6564Bfxjrfd encounter luhaytwbk90/24/2024 10:30 AM EDT Office Visit [facility] [address] [place] [phone] Kathryn Cagle, TYPE PHOTOGRAPHY SUPERVISOR [address] [facility] [place] [address] ArrivedNOMS CI ORTHOPAEDICSComment on above:Arrived Start: 12-26-2023 End: 11-97-3158Nxaecmy encounter vxcthinga70/12/2024 1:[address] [facility] - Mammogram DEXA [address] [place] [address] Sangeetha Quick, DO [address] [facility] [place] [place] [address] [facility] [place] - Mammogram DEXAStart: 12-24-2023 End: 26-58-5067MG Panel(stool pathogen panel)GI Panel(stool pathogen panel) Lab Routine Diarrhea, unspecified type Expected: 12/24/2023, Expires: 12/23/2024 [facility] Work Phone: Comment on above:Expected: 12/24/2023, Expires: 12/23/2024Start: 12-24-2023 End: 01-95-4300Wdwfvoj encounter mbunlnaul49/10/2024 1:00 PM EDT [facility] [address] [place] [address] Sangeetha Quick, [address] [facility] [place], [id number] [facility] Internal Medicine - Family MedicineStart: 54-62-8546YUGIW-19 Vaccine ( season)COVID-19 Vaccine ( season)[facility] SystemStart: 18-48-5675Cnathzthx vaccinationNONH HealthcareStart: 12-03-2023 End: 65-31-6927Npvtlhn encounter sufmdbenr87/20/2024 2:00 PM EDT [facility] [address] [place] [address] LakSbyqqh [facility]icians Internal Medicine - Family MedicineStart: 08-15-2024Medicare Annual Wellness VisitMedicare Annual Wellness VisitSuburban Community Hospital & [facility] SystemStart: 41-79-4332Ljexjruzv vaccinationInfluenza VaccineProAkron Children'S Hospital SystemComment on above:Postponed from 12/14/2022 (Vaccine Not Available)Start: 06-25-2023 End: 23-65-8266MC Knee - left 3 ViewsX-ray knee left 3 views Imaging Routine Localized osteoarthritis of left knee Expected: 06/25/2023,Expires: 06/24/[facility]24 [facility] Phone: Comment on above:Expected: 06/25/2023, Expires: 06/24/2024Start: 89-05-5324URGXX-19 Vaccine ( season)COVID-19 Vaccine ( season)[facility]: 64-31-7945Sfzkpstvt vaccinationInfluenza VaccineSuburban Community Hospital & [facility] SystemStart: 12-20-1997 Administration of varicella zoster vaccineZoster (Shingles) Vaccine (1 of 2) [facility] [facility] HospitalZul[facility]htart: 47-26-3340Mactt BMI Follow Up PlanAdult BMI Follow Up [facility] End: 25-62-7326Wrokr metabolic 2000 panel - Serum or PlasmaBasic Metabolic Panel Lab Routine Diarrhea, unspecified type 1 Occurrences starting 12/24/2023 until 12/23/2024[facility] HospitalComment on above:1 Occurrences starting 12/24/2023 until 12/23/2024 End: 72-62-9785MOV W Auto Differential panel - BloodCBC auto differential Lab Routine Hypothyroidism, unspecified type 1 Occurrences starting 05/19/2024 until 05/19/2025[facility] HospitalComment on above:1 Occurrences starting 05/19/2024 until 05/19/2025 End: 23-12-4273Qdlrfkwmoxsdn metabolic 2000 panel - Serum or PlasmaComprehensive metabolic panel Lab Routine Hypothyroidism, unspecified type 1 Occurrences starting 05/19/2024 until 05/19/2025[facility] HospitalComment on above:1 Occurrences starting 05/19/2024 until 05/19/2025 End: 27-55-0629Pppwhnzqrslgc metabolic 2000 panel - Serum or PlasmaComprehensive metabolic panel Lab Routine Hyperlipidemia, unspecified hyperlipidemia type 1 Occurrences starting 08/18/2024 until 08/18/2025[facility] Work Phone: Comment on above:1 Occurrences starting 08/18/2024 until 08/18/2025omprehensive metabolic 2000 panel - Serum or Plasma Comprehensive metabolic panel Lab Routine Hyperlipidemia, unspecified hyperlipidemia type 08/18/2024 3:42 PM [facility] End: 90-27-0691Mjyymevnxpljeq vitamin b-12Vitamin B12 Lab Routine Cobalamin deficiency 1 Occurrences starting 05/19/2024 until 05/19/2025[facility] HospitalComment on above:1 Occurrences starting 05/19/2024 until 05/19/2025 End: 20-81-5823Tsrtmcgtmdzcgk vitamin b-12Vitamin B12 Lab Routine Cobalamin deficiency 1 Occurrences starting 12/24/2023 until 12/23/2024[facility] HospitalComment on above:1 Occurrences starting 12/24/2023 until 12/23/2024 End: 35-80-1409Mllvl 1995 panel - Serum or PlasmaLipid profile Lab Routine Hyperlipidemia, unspecified hyperlipidemia type 1 Occurrences starting 09/2024 until 08/18/2025[facility] HospitalComment on above:1 Occurrences starting 08/18/2024 until 08/18/2025Lipid 1996 panel - Serum or PlasmaLipid profile Lab Routine Hyperlipidemia, unspecified hyperlipidemia type 08/18/2024 3:42 PM [facility] End: 10-51-7502Cchmgnm profile includes TSH PE1Mbnlgfx profile includes TSH FT4 Lab Routine Hypothyroidism, unspecified type 1 Occurrences starting 05/19/2024 until 05/19/2025[facility] HospitalComment on above:1 Occurrences starting 05/19/2024 until 05/19/2025 End: 97-98-0809Fysydmt D 25 hydroxyVitamin D 25 hydroxy Lab Routine Vitamin D deficiency 1 Occurrences starting 05/19/2024 until 05/19/2025[facility] HospitalComment on above:1 Occurrences starting 05/19/2024 until 05/19/2025 Immunizations Immunization DateImmunizationNotesCare WttrgfrcJolullbf84-05-3242Gpwog-11, Mrna, Lnp-s, Pf,christian-sucrose,30 Mcg/0.3ml Hage51Gssy Trent DO Work Phone: [facility] HospitalDexecq61-34-1268Bcrpgeus trivalent influenza vaccine, adjuvanted, preservative freeSangeetha Quick DO Work Phone: [facility] HospitalHdhhez02-26-7795Hbejnfzhpehy, In Clinic,; Translations: [Drug or medicament (substance)]Sangeetha Jiménezhas DO Work Phone: [facility] HospitalSdsfpl63-83-7226zjofmtchg virus vaccine, unspecified formulationJohn Yuhas DO Work Phone: [facility] HospitalTbroqv77-18-0639snmqanzrg virus vaccine, unspecified formulationKathryn Cagle TYPE PHOTOGRAPHY SUPERVISOR Work Phone: [facility]SmithvilleEreblqorjp21-48-3964Vzlzkdcmi, injectable, Madin Ammy Canine Kidney, preservative free, quadrivalentJohn Yuhas DO Work Phone: [facility] HospitalKvdhgi06-13-0754vjoqoykyt virus vaccine, unspecified formulationJohn Yuhas DO Work Phone: [facility] HospitalQchcrh20-77-8964xnblegxwlpvz polysaccharide vaccine, 23 valentJohn Yuhas DO Work Phone: [facility] HospitalKughcn18-98-1598culipfvoz, seasonal, injectable, preservative freeJohn Yuhas DO Work Phone: [facility] HospitalBxyqig96-29-8807tjjogbzdq, seasonal, injectable, preservative freeJohn Yuhas DO Work Phone: [facility] HospitalEkxgfg78-27-5883tekzaaxebagk conjugate vaccine, 13 valentJohn Yuhas DO Work Phone: [facility] HospitalTavcvc42-59-9239yqtqcikyrrwz polysaccharide vaccine, 23 valentJohn Yuhas DO Work Phone: [facility]02-06-2015tetanus toxoid, reduced diphtheria toxoid, and acellular pertussis vaccine, adsorbedJohn Yuhas DO Work Phone: [facility] Payers DatePayer CategoryPayerPolicy [id number] Care Other (unspecified) [employer] Member Subscriber Plan / Payer (Effective 2024-Present) Name: Rach Munroe Relation to Subscriber: Self Name: Rach Munroe Payer ID: Not on file Group ID: Not on file Type: Not on file Address: [address] [id number] Commercial Managed Care - [id number] 09-32-5375Jmqalcr Health Insurance1.2.840.799269.1.13.693.2.7.3.003344.315 2011Medicare1.2.840.906920.1.13.693.2.7.3.282295.315 1960Medicare [id number] 2078Hyhyvkv Health QzzxaixdsTNR[id number] 2.0.1.890839.3.57[id number] 2..1.728906.3.57[id number] 2..1.609649.3.57[id number] 2.0.1.929656.3.579.[id number] 2.0.1.371436.3.579.2.65991-90-7075Awyawor8342410 2.0.1.785973.3.579.2.15592-69-9654Hlhqbqe1854837 2.0.1.475410.3.579.[id number] 2.16.840.1.183565.3.579.2.71039-67-0521Npdyvdi9058359 2.16840.1.209654.3.57[id number] 2.16840.1.909932.3.57[id number] 2.16840.1.097525.3.57[id number] 2.840.1.391013.3.57[id number] 2.840.1.683536.3.57[id number] 2.840.1.269384.3.579.[id number] 2.840.1.275534.3.57[id number] 2.840.1.871266.3.579.[id number] 2.840.1.955367.3.579.2.041[id number] 2.840.1.490873.3.579.2.503312-74-2046Xtbfoaf9578152 2.16840.1.823387.3.579.2.779908-41-6354Trpjgli8419284 2.840.1.998970.3.579.2.505106-70-3213Czueiwi9784678 2.16840.1.531024.3.579.2.799314-99-1845Vagcmhe0755517 2.840.1.453779.3.579.2.922045-61-8992Mubsafs4197571 2.840.1.755519.3.579.2.32[id number] 2.16840.1.776358.3.579.2.16[id number] 2.840.1.878508.3.579.[id number] 2.0.1.973021.3.579.2.655991-32-0033Ndjnohs91889965 2..1.603612.3.579.2.575623-60-6185Nfipuhv43269145 2..1.086533.3.579.2.739405-24-2756Ssblhui82732775 2.0.1.192891.3.57[id number] 2..1.629968.3.579.2.24809-55-6160Uukqarg191106027 2.0.1.506756.3.579.[id number] 2..1.347334.3.579.2.91663-32-0960Bhixzwb155449150 2..1.592096.3.579.2.972801-97-3259Fjsejfe463172523 2.840.1.804174.3.579.[id number] 2.840.1.470660.3.579.2.37[id number] 2.840.1.593458.3.57[id number] 2..840.1.820086.3.579.2.854725-56-7234Fnywous454520808 2..840.1.438153.3.579.2.[id number] 2.16.840.1.813209.3.579.2.1286 Social History DateTypeDetailFacilityStart: 05-14-2022 End: 11-66-1872Znlcvbd smoking status NHISNever smoked tobaccoMOAB [facility] Work Phone: Start: 05-14-2022 End: 75-98-4172Gcqqsfp use and exposureSmokeless tobacco non-userSuburban Community Hospital & [facility] Hospital SystemStart: 01-07-2024 End: 40-13-8118Kwqcpsltm beverage intakeEx-drinker (finding)[facility] Start: 11-27-2022 End: 68-83-6391Ynommgr of Social functionSuburban Community Hospital & Brentwood Hospital SystemStart: 11-27-2022 End: 71-13-1770Zddycsx use panelSuburban Community Hospital & [facility] Hospital SystemStart: 70-80-5594Vss assigned at birthNot on fileBrown Memorial HospitalTobastroud regional medical center [facility] smoking status NHIS Tobacco smoking consumption unknownNONH HealthcareStart: 05-19-2024 End: 39-92-1396Gueetfgbm beverage intakeCurrent non-drinker of alcohol (finding) [facility] SystemHas the Exploredge, oil, or water [employer] threatened to shut off services in your home in past 12MoNoProAkron Children'S Hospital SystemDo you belong to any clubs or organizations such as taoist groups, unions, fraternal or athletic groups, or school groups?YesProUniversity Of South [facility] Children[facility]'S [facility] Health SystemAre you now , , , , never or living with a partner? [facility] SystemHow often to you have a drink containing alcohol?Never [facility] SystemHow many standard drinks containing alcohol do you have on a typical day?Patient does not drinkProUniversity Of South [facility]'S Hospital Health SystemHow hard is it for you to pay for the very basics like food, housing, medical care, and heating Somewhat hardUniversity Hospitals Health System Health SystemDo you feel stress - tense, restless, nervous, or anxious, or unable to sleep at night because yourmind is troubled all the time - these days [OSQ]Rather muchCaroMont Regional Medical Center - Mount Hollytart: 39-57-4761QkiZkpyvu (finding)[facility] HospitalHow hard is it for you to pay for the very basics like food, housing, medical care, and heatingHard [facility] Memorial HospitalDo you feel stress - tense, restless, nervous, or anxious, or unable to sleep at night because yourmind is troubled all the time - these days [OSQ]Very muchBrown Memorial Hospital Clinical Notes 09-07-2021 to 02-08-2025 Note Date & DpgzSyrlWvsqpxeb91-89-4367 Miscellaneous Notes* Telephone Encounter - Shayy Schilling - 02/08/2025 3:34 PM EDT - eft vm to reschedule her infusion documented in this [facility]10-27-2025 Telephone encounter Note* Telephone Encounter - Shayy Schilling - 02/08/2025 3:34 PM EDT - eft vm to reschedule her infusion [facility]10-24-2025 History of Present illness Narrative* Rupert Hassan RN - 02/05/2025 2:30 PM EDT Pt marked present by mistake. Medication was released and spiked. Pt was a no show. Medication not given. documented in this [facility]10-06-2025 Miscellaneous Notes* Telephone Encounter - Dipika Sagastume CMA - 01/18/2025 7:37 PM EDT ----- Message from Sangeetha Quick DO sent at 08/18/2024 5:55 PM EDT ----- Elevated BP recheck * Telephone Encounter - Dipika Sagastume CMA - 01/18/2025 7:37 PM EDT LM for patient on VM to schedule. documented in this encounterBrown Memorial Hospital10-06-2025 Telephone encounter Note* Telephone Encounter - Dipika Sagastume CMA - 01/18/2025 7:37 PM EDT ----- Message from Sangeetha Quick DO sent at 08/18/2024 5:55 PM EDT ----- Elevated BP recheck [facility]10-06-2025 Telephone encounter Note* Telephone Encounter - Dipika Sagastume CMA - 01/18/2025 7:37 PM EDT LM for patient on VM to schedule. [facility]09-15-2025 Miscellaneous Notes* Telephone Encounter - Salena Gandhi CMA - 12/28/2024 12:17 PM EDT This patient called because she needs a referral to the [facility] for her infusion. She also needs an order for her Mammogram and Dexa sent to [facility] * Telephone Encounter - Sangeetha Quick DO - 12/28/2024 12:17 PM EDT Message noted. The orders for the tests, and the infusion were sent to [facility] * Telephone Encounter - Edmundo Leigh CNA - 12/28/2024 12:17 PM EDT Pt informed documented in this encounterBrown Memorial Hospital09-15-2025 Telephone encounter Note* Telephone Encounter - Salena Gandhi CMA - 12/28/2024 12:17 PM EDT This patient called because she needs a referral to the [facility] for her infusion. She also needs an order for her Mammogram and Dexa sent to [facility]09-15-2025 Telephone encounter Note* Telephone Encounter - Sangeetha Quick DO - 12/28/2024 12:17 PM EDT Message noted. The orders for the tests, and the infusion were sent to [facility]09-15-2025 Telephone encounter Note* Telephone Encounter - Edmundo Leigh CNA - 12/28/2024 12:17 PM EDT Pt informed [facility]07-24-2025 Miscellaneous Notes* Telephone Encounter - Salena Gandhi CMA - 11/05/2024 12:38 PM EDT Patient stopped in and she is in a lot of pain.and said the Meloxicam only work until noon. Her xrays have not been read yet. * Telephone Encounter - Sangeetha Quick DO - 11/05/2024 12:38 PM EDT Message noted. I reviewed her back xray. It shows osteoarthritis at multiple levels. If the Meloxicam is only working for part of the day, is she willing to take Tramadol to help supplement? She used that in the past with some success. Just let me know. * Telephone Encounter - Lynnette Piña CMA - 11/05/2024 12:38 PM EDT I spoke with pt and she agreed to take the Tramadol to supplement with the Meloxicam. Pt stated mireillell need a script sent to [facility] in [place]. Thank you. * Telephone Encounter - Sangeetha Quick DO - 11/05/2024 12:38 PM EDT Message noted. I sent an order for Tramadol to [facility] in [place] documented in this encounterBrown Memorial Hospital07-24-2025 Telephone encounter Note* Telephone Encounter - Salena Gandhi CMA - 11/05/2024 12:38 PM EDT Patient stopped in and she is in a lot of pain.and said the Meloxicam only work until noon. Her xrays have not been read yet. [facility]07-24-2025 Telephone encounter Note* Telephone Encounter - Sangeetha Quick DO - 11/05/2024 12:38 PM EDT Message noted. I reviewed her back xray. It shows osteoarthritis at multiple levels. If the Meloxicam is only working for part of the day, is she willing to take Tramadol to help supplement? She used that in the past with some success. Just let me know. [facility]07-24-2025 Telephone encounter Note* Telephone Encounter - Lynnette Piña CMA - 11/05/2024 12:38 PM EDT I spoke with pt and she agreed to take the Tramadol to supplement with the Meloxicam. Pt stated mireillell need a script sent to [facility] in [place]. Thank you. [facility] [employer] [id number] Telephone encounter Note* Telephone Encounter - Sangeetha Quick DO - 11/05/2024 12:38 PM EDT Message noted. I sent an order for Tramadol to [facility] in [place] [facility]07-21-2025 History of Present illness Narrative* Sangeetha Quick DO - 11/02/2024 4:15 PM EDT IM PROGRESS NOTE Patient - Rach Munroe [...] has received LENY in the past at [place] pain [facility] -had MRI scan approximately 3 years ago -this pain is different. Will proceed with an x-ray of the lumbar spine to evaluate for compressionfractures, and in the meantime will start meloxicam 15 mg daily to help with pain relief -further recommendations following testing. May need to have trial of physical therapy or referral back to pain management - meloxicam (MOBIC) 15 mg tablet; Take 1 tablet (15 mg total) by mouth in the morning. Dispense: 30tablet; Refill: 0 - X-ray spine lumbar 2 [...] 42.5 g; Refill: 1 Subjective FOLLOW-UP: EMERGENCY DEPARTMENT-[place] Patient was discharged from the facility on: [...] taking the metoclopramide once a day and thiscontrols her nausea. She has been able to [...] Also has been to pain management in [place] and received LENY to the lumbar spine. Has not been there in nearly a year. The cur rent pain in her low back is different than previous pain, it is not radiating all the way down herleg, but is limiting in that it hurts [...] 10/23/2024 Auto Resulted Final POC Urine Specific Gilbert 10/23/2024 1.020 1.010, 1.015, 1.020, 1.025 Final [...] Testing No results found. Sangeetha Quick DO., [facility] Phys[facility] Office: [phone] documented in this encounterBrown Memorial Hospital07-14-2025 Miscellaneous Notes* Telephone Encounter - Marcia Holder CMA - 10/26/2024 8:13 AM EDT ED Outreach This documentation is being used for Transition of Care purposes: Yes/No: Yes ED Outreach Date: October 26, 2024 ED Outreach Method: COMMUNICATION METHOD: Telephone ED Outreach Attempt: first ED Outreach Outcome: Contacted Patient Name of ED Facility: [facility] Date of ED Discharge: 10/23/2024 Discharge [...] made aware of on-call provider and same dayappointment availability. Additional Comments: Patient will contact the office with additional concerns. documented in this encounterBrown Memorial Hospital07-14-2025 Telephone encounter Note* Telephone Encounter - Marcia Holder CMA - 10/26/2024 8:13 AM EDT ED Outreach This documentation is being used for Transition of Care purposes: Yes/No: Yes ED Outreach Date: October 26, 2024 ED Outreach Method: COMMUNICATION METHOD: Telephone ED Outreach Attempt: first ED Outreach Outcome: Contacted Patient Name of ED Facility: [facility] Date of ED Discharge: 10/23/2024 Discharge [...] made aware of on-call provider and same dayappointment availability. Additional Comments: Patient will contact the office with additional concerns. [facility]07-09-2025 History of Present illness Narrative* Jr. Angella Mckeon DO - 10/21/2024 10:15 AM EDTAssociated Order(s): L Inj/Asp: R subacromial bursa Post-Procedure Diagnose(s): Acute pain of right shoulder Images from the original note were not included. HISTORY OF PRESENT ILLNESS: EST PT Rach Munroe is an 78 y.o. @ female. (EST PT) - RECHECK (R) SHOULDER DISCOMFORT S/P INJURY 06/12/24 (4 MONTHS, 10 DAYS) ; S/P CORTISONE INJ 09/09/24 (6 WKS) XRAY 09/09/24 IN EPIC MRI 08/11/24 @[facility] PER PT - POSSIBLY TOOK MDP FOR LBP IN 05/2024 CORTISONE INJ 09/09/24 NO PT PAIN MGMT @[facility] (DR. PEREZ) S/P CORTISONE INJ - WITH RELIEF. IMPROVEMENT HS. CONTINUES SUPINE SHOULDER EXERCISES (HEP). CAN STILL HAVE SUPERIOR / POSTERIOR DISCOMFORT WITH CERTAIN MOVEMENTS. RADIATION INTO UPPER ARM. ADMITS WARMTH TO TOUCH / DIFFUSE INTERMITTENT SWELLING. DENIES N/T. ADMITS DROPPING OBJECTS LESS FREQUENTLY - W EAKNESS. 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 ADMITS POPPING / CRACKING. DENIES TIGHTNESS / STIFFNESS. DIFFICULTY WITH GETTING COMFORTABLE. WAKING HS WHEN ROLLING ONTO ARM. OCCASIONALLY HAS TO USE OPPOSITE HAND TO HELP MOVE ARM. TRAMADOL (DR. PEREZ) - NOT TAKING BID, ONLY TAKING QAM [...] Daily RT cholecalciferol (Vitamin D-3) 1.25 MG (09883 UT) capsule 1 capsule, Oral, Weekly ergocalciferol (Vitamin D2) 1.25 MG (48683 UT) capsule TAKE 1 CASPULE BY MOUTH [...] Use: Not At Risk (11/27/2022) Received from [facility] AUD[facility]-C Frequency of Alcohol Consumption: [...] her at length today. She refuses any surgicalintervention. She is requesting a second cortisone injection [...] for requiring urgent evaluation. documented in this encounterSaint Luke[facility] Hospital–[id number] History of Present illness Narrative* Jr. Angella Mckeon DO - 09/09/2024 9:30 AM EDTAssociated Order(s): L Inj/Asp: R subacromial bursa Post-Procedure Diagnose(s): Acute pain of right shoulder Images from the original note were not included. HISTORY OF PRESENT ILLNESS: EST PT Rach Quaintance is an 78 y.o. @ female. (EST PT) (NEW PROBLEM) - (R) SHOULDER DISCOMFORT S/P INJURY 06/12/24 (3 MONTHS) - OVERHEAD BARN DOOROPENED AND CAME DOWN ONTO (R) SHOULDER XRAY TODAY, 09/09/24 IN EPIC MRI 08/11/24 @[facility] PER PT - POSSIBLY TOOK MDP FOR LBP IN 05/2024 NO CORTISONE INJ NO PT PAIN MGMT @[facility] (DR. PEREZ) SUPERIOR / POSTERIOR DISCOMFORT. RADIATION INTO UPPER ARM. ADMITS WARMTH TO TOUCH / DIFFUSE SWELLING. DENIES N/T. ADMITS DROPPING OBJECTS FREQUENTLY - WEAKNESS. 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 LIMITED ROM WITH ELEVATION / POSTERIOR MOVEMENT D/T DISCOMFORT. DENIES TIGHTNESS / STIFFNESS. WAKING HS / DIFFICULTY WITH GETTING COMFORTABLE. OCCASIONALLY HAS TO USE OPPOSITE HAND TO HELP MOVE ARM. TIZANIDINE / TRAMADOL (DR. PEREZ) - NO RELIEF. TYL ARTHRITIS - WITH [...] Daily RT cholecalciferol (Vitamin D-3) 1.25 MG (21788 UT) capsule 1 capsule, Oral, Weekly ergocalciferol (Vitamin D2) 1.25 MG (03062 UT) capsule TAKE 1 CASPULE BY MOUTH [...] Use: Not At Risk (11/27/2022) Received from [facility]UD[facility]-C Frequency of Alcohol Consumption: Never Average [...] given her supine shoulder exercises to do 10times once a day in the interim. Questions answered in laymen terms at the bedside. The diagnosis, home exercise plan and any ongoing restrictions/ recommendations reviewed. If unable to be reached in office, I recommend evaluation at nearest Emergency Room if any symptoms worsened or new symptoms develop for requiring urgent evaluation. documented in this encounterSaint Luke's North Hospital–[id number] History of Present illness Narrative* Sangeetha Quick DO - 08/18/2024 3:00 PM EDT IM PROGRESS NOTE Patient - Rach Munroe [...] right shoulder pain and arm weakness. However doescontinue to try cooking and cleaning and doing [...] low back and knees. [place] and receiving injections.. Exam BP 140/80 (BP Site: Left Arm, BP Postition: Sitting, BP CUFF SIZE: L (13-17 inches)) Pulse 78 Temp 36.6 C (97.8 F) (Oral) Resp 20 Ht 149.9 cm (4' 11.02 ) Wt 69.8 kg (153 lb 12.8 oz) HiA0937% BMI 31.05 kg/m Physical Exam Vitals reviewed. [...] Testing No results found. Sangeetha Quick DO., [facility] Office: [phone] documented in this encounterBrown Memorial Hospital02-04-2025 History of Present illness Narrative* Sangeetha Quick DO - 05/19/2024 2:30 PM EST IM PROGRESS NOTE Patient - Rach Munroe [...] 3. Vitamin D deficiency -currently taking D3 03000 units weekly because of low vitamin-D and [...] the past. Has not noticed any patches, andgenerally occurs when she is washing her hair [...] any falls or instability because of it. Involvesthe lateral right leg and foot. No new [...] Testing No results found. Sangeetha Quick DO., [facility] Office: [phone] documented in this encounterBrown Memorial Hospital11-14-2024 History of Present illness Narrative* Sangeetha Quick DO - 02/27/2024 1:40 PM EST Subjective SUBJECTIVE: Patient ID: Rach Munroe is a 78 y.o. female who presents for a Medicare Annual Wellness exam. HPI The following portions of the patient's history were reviewed and updated as appropriate: allergies, current medications, past family history, past medical history, past social history, past surgicalhistory and problem list. AWV FLOWSHEET : Lifestyle [...] Do you have a durable power of prosecuting attorney?: Yes Cognitive Screening Do you have [...] 1 year (around 02/26/2025). documented in this encounterBrown Memorial Hospital10-24-2024 History of Present illness Narrative* Rupert Hassan RN - 02/06/2024 2:30 PM EDT Pt here for reclast as scheduled. Has had in the past without issues. PIV initiated to LAC. Brisk blood return. Flushes with ease. Reclast infused over 15 minutes without incident. Line flushed. PIV removed. Pt dc'd in stable ambulatory condition. documented in this encounterBrown Memorial Hospital10-21-2024 Miscellaneous Notes* Telephone Encounter - Fatoumata Chacko CMA - 02/03/2024 12:49 PM EDT Called pt to let her know that she just has to go get her labs drawn at the hospital and the ordersare already in. documented in this [facility]10-21-2024 Telephone encounter Note* Telephone Encounter - Fatoumata Chacko CMA - 02/03/2024 12:49 PM EDT Called pt to let her know that she just has to go get her labs drawn at the hospital and the ordersare already in. [facility]10-09-2024 Miscellaneous Notes* Telephone Encounter - Natalia Gusman - 01/22/2024 1:25 PM EDT Patient called asking about an infusion at the [facility] that you were suppose to send over * Telephone Encounter - Sangeetha Quick DO - 01/22/2024 1:25 PM EDT Message noted. The order was sent. She can call them at any time * Telephone Encounter - Dipika Sagastume CMA - 01/22/2024 1:25 PM EDT Mailbox is full documented in this encounterBrown Memorial Hospital10-09-2024 Telephone encounter Note* Telephone Encounter - Natalia Gusman - 01/22/2024 1:25 PM EDT Patient called asking about an infusion at the [facility] that you were suppose to send over [facility]10-09-2024 Telephone encounter Note* Telephone Encounter - Sangeetha Quick DO - 01/22/2024 1:25 PM EDT Message noted. The order was sent. She can call them at any time [facility]10-09-2024 Telephone encounter Note* Telephone Encounter - Dipika Sagastume CMA - 01/22/2024 1:25 PM EDT [facility] [id number] History of Present illness Narrative* Sangeetha Quick, - 01/20/2024 12:00 PM EDT IM PROGRESS NOTE Patient - Rach Munroe Age - 78 y.o. - 1945 ASSESSMENT & PLAN Diagnosis Plan 1. Hordeolum externum of right upper eyelid neomycin-polymyxin B-dexAMETH (MAXITROL) 3.5 mg/g-10,000 unit/g-0.1 % ointment -patient was advised to start cool compresses to the eye for the next 48 hours at least 4-5 times aday for 30 minutes -apply antibiotic ointment along [...] material blow into her eyes. No real drainageand Nab which is present is clear. He [...] done in March 2024.. In addition, patient notedthat it has been 1 year since her [...] Testing No results found. Sangeetha Quick DO., [facility] Office: [phone] documented in this encounterBrown Memorial Hospital10-07-2024 History of Present illness Narrative* Jr. Angella Mckeon DO - 01/20/2024 9:30 AM EDT HISTORY OF PRESENT ILLNESS: EST PT Rach [...] [facility]18 [facility] QUIKC [place]; TRAMADOL PRN- - HX SYNVISC INJ LT KNEE (01/18/17) INJ 07/01/23; PREDNISONE BURST 06/25/23PARTIAL RELIEF. PAIN MGMT [facility]- VISCO ~12/23/23 HX [...] Daily RT cholecalciferol (Vitamin D-3) 1.25 MG (75293 UT) capsule 1 capsule, Oral, Weekly ergocalciferol (Vitamin D2) 1.25 MG (43398 UT) capsule TAKE 1 CASPULE BY MOUTH [...] Use: Not At Risk (11/27/2022) Received from [facility], [facility] Frequency of Alcohol Consumption: Never [...] TKA. Angella Mckeon D.O. documented in this encounterSaint Luke's North Hospital–[id number] History of Present illness Narrative* Kathryn Cagle NP - 01/07/2024 10:30 AM EDT Images from the original note were not [...] LT KNEE (01/18/17) INJ 07/01/23; PREDNISONE BURST 06/25/23PARTIAL RELIEF. PAIN MGMT [facility] DID HAVE INJECTION [...] Daily RT cholecalciferol (Vitamin D-3) 1.25 MG (31808 UT) capsule 1 capsule, Oral, Weekly Cyanocobalamin ER 1000 MCG tablet controlled-release 2 tablets, Oral, Daily ergocalciferol (Vitamin D2) 1.25 MG (95086 UT) capsule TAKE 1 CASPULE BY MOUTH [...] left knee showed severe varus deformity with [id number] articulation to the medial joint line, flattening [...] injections. She did have flare up of pre- patellar bursitis but his has mostly resolved. I [...] develop for requiring urgent evaluation. Kathryn Cagle [employer] OF MARKETING documented in this encounterSaint Luke's North Hospital–[id number] History of Present illness Narrative* Sangeetha Quick DO - 12/24/2023 1:00 PM EDT IM PROGRESS NOTE Patient - Rach Munroe [...] 1 tablet by mouth 4 (four) times aday as needed for diarrhea for up to 5 days. Dispense: 20 tablet; Refill: 0 - Basic Metabolic Panel; Future 2. Primary osteoarthritis of knees, bilateral -currently stable -keep follow-up with Pain Management -we talked about potential future need for joint replacement 3. Vitamin D deficiency -currently on vitamin D2 00050 units weekly -no change today 4. Cobalamin [...] Dissolve 1 tablet (4 mg total) on tongueevery 8 (eight) hours as needed for nausea or vomiting. Dispense: 20 tablet; Refill: 0 Subjective 78-year-old female originally scheduled for recheck on her osteoporosis and vitamin B12 deficiency now reports new problem involving diarrhea. Was actually seen in the emergency department 3 days agofor the same problem. She reports developing a sudden onset of loose watery diarrhea, perhaps 10-12BMs daily. Nonbloody. Some cramping. Had associated nausea [...] She was visiting her mother in the residential, and person there was having diarrhea and [...] Detected Not Detected^Not Detected Final Specific gravity [facility] 2023 1.015 1.003 - 1.035 Final Leukocyte esterase [facility] 2023 Trace (A) Negative^Negative Final Nitrite [facility] 2023 Negative Negative^Negative Final Ph 2023 5.5 5.0 - 8.5 Final Protein [facility] 2023 Negative Negative^Negative mg/dL Final Urine glucose [facility] 2023 Negative Negative^Negative mg/dL Final Ketones [facility] 2023 Trace (A) Negative^Negative mg/dL Final Urobilinogen [facility] 2023 0.2 <1.1 eu/dL Final Bilirubin [facility] 2023 Negative Negative^Negative Final Hemoglobin [facility] 2023 Small (A) Negative^Negative Final Other Testing No results found. Sangeetha Quick DO., [facility] Office: [phone] documented in this encounterBrown Memorial Hospital09-09-2024 Miscellaneous Notes* Telephone Encounter - Marcia Holder CMA - 12/23/2023 10:09 AM EDT ED Outreach This documentation is being used for Transition of Care purposes: Yes/No: Yes ED Outreach Date: December 23, 2023 ED Outreach Method: COMMUNICATION METHOD: Telephone ED Outreach Attempt: second ED Outreach Outcome: Contacted Patient Name of ED Facility: [facility] Date of ED Discharge: 2023 Discharge [...] made aware of on-call provider and same dayappointment availability. Additional Comments: Patient will contact the office with additional concerns. documented in this encounterBrown Memorial Hospital09-09-2024 Telephone encounter Note* Telephone Encounter - Marcia Holder CMA - 12/23/2023 10:09 AM EDT ED Outreach This documentation is being used for Transition of Care purposes: Yes/No: Yes ED Outreach Date: December 23, 2023 ED Outreach Method: COMMUNICATION METHOD: Telephone ED Outreach Attempt: second ED Outreach Outcome: Contacted Patient Name of ED Facility: [facility] Date of ED Discharge: 2023 Discharge [...] made aware of on-call provider and same dayappointment availability. Additional Comments: Patient will contact the office with additional concerns. [facility]08-28-2024 Miscellaneous Notes* Telephone Encounter - Dipika Sagastume CMA - 12/11/2023 4:44 PM EDT Patient came in today and asked if her mammogram could be sent to [place]. Also she was wonderingif you would check into her in fusion at [facility]. * Telephone Encounter - Sangeetha Quick DO - 12/11/2023 4:44 PM EDT Message noted. The mammogram order [facility] I put a new order for the Reclast infusion at [facility]. She can call about setting up the infusion * Telephone Encounter - Dipika Sagastume CMA - 12/11/2023 4:44 PM EDT Informed patient via answering machine. documented in this encounterBrown Memorial Hospital08-28-2024 Telephone encounter Note* Telephone Encounter - Dipika Sagastume CMA - 12/11/2023 4:44 PM EDT Patient came in today and asked if her mammogram could be sent to [facility]. Also she was wonderingif you would check into her in fusion at [facility]. [facility]08-28-2024 Telephone encounter Note* Telephone Encounter - Sangeetha Quick DO - 12/11/2023 4:44 PM EDT Message noted. The mammogram order was sent to [facility] I put a new order for the Reclast infusion at [facility]. She can call about setting up the infusion [facility]08-28-2024 Telephone encounter Note* Telephone Encounter - Dipika Sagastume CMA - 12/11/2023 4:44 PM EDT Informed patient via answering machine. [facility]05-08-2024 Miscellaneous Notes* Telephone Encounter - Dipika Sagastume CMA - 08/21/2023 2:19 PM EDT Patient called and the injection in her knee did not help. She wanted to know where to go from here. Does she need another apt? * Telephone Encounter - Sangeetha Quick DO - 08/21/2023 2:19 PM EDT Message noted. She needs to see orthopedics about a knee replacement. Whom does she wish to see? * Telephone Encounter - Dipika Sagastume CMA - 08/21/2023 2:19 PM EDT LM for Patient to call back. * Telephone Encounter - Dipika Sagastume CMA - 08/21/2023 2:19 PM EDT She would like to use Dr. Mckeon * Telephone Encounter - Sangeetha Quick DO - 08/21/2023 2:19 PM EDT Message noted. I made a referral to Dr. Mckeon. She can call his office and schedule at any time. * Telephone Encounter - Dipika Sagastume CMA - 08/21/2023 2:19 PM EDT Patient notified documented in this encounterBrown Memorial Hospital05-08-2024 Telephone encounter Note* Telephone Encounter - Dipika Sagastume CMA - 08/21/2023 2:19 PM EDT Patient called and the injection in her knee did not help. She wanted to know where to go from here. Does she need another apt? [facility]05-08-2024 Telephone encounter Note* Telephone Encounter - Sangeetha Quick DO - 08/21/2023 2:19 PM EDT Message noted. She needs to see orthopedics about a knee replacement. Whom does she wish to see? [facility]05-08-2024 Telephone encounter Note* Telephone Encounter - Dipika Sagastume CMA - 08/21/2023 2:19 PM EDT LM for Patient to call back. [facility]05-08-2024 Telephone encounter Note* Telephone Encounter - Dipika aSgastume CMA - 08/21/2023 2:19 PM EDT She would like to use Dr. Mckeon [facility]05-08-2024 Telephone encounter Note* Telephone Encounter - Sangeetha Quick DO - 08/21/2023 2:19 PM EDT Message noted. I made a referral to Dr. Mckeon. She can call his office and schedule at any time. [facility]05-08-2024 Telephone encounter Note* Telephone Encounter - Dipika Sagastume CMA - 08/21/2023 2:19 PM EDT Patient notified [facility]04-11-2024 History of Present illness Narrative* Sangeetha Quick DO - 07/25/2023 11:00 AM EDTAssociated Order(s): $ Arthrocentesis Post-Procedure Diagnose(s): Osteoarthritis of [...] reviewed post-procedure vital signs reviewed and stable * Sangeetha Quick DO - 07/25/2023 11:00 AM EDT IM PROGRESS NOTE Patient - Rach Munroe [...] Testing No results found. Sangeetha Quick DO., [facility] Office: [phone] documented in this encounterBrown Memorial Hospital03-18-2024 History of Present illness Narrative* Sangeetha Quick DO - 07/01/2023 3:45 PM EDT IM PROGRESS NOTE Patient - Rach Munroe [...] Testing No results found. Sangeetha Quick DO., [facility] Office: [phone] documented in this encounterBrown Memorial Hospital03-12-2024 History of Present illness Narrative* Sangeetha Quick DO - 06/25/2023 11:15 AM EDT IM PROGRESS NOTE Patient - Rach Salcedoance [...] liniment such as Voltaren gel or icy hot,and getting minimal if any relief. -does apply [...] Testing No results found. Sangeetha Quick DO., [facility] Office: [phone] documented in this encounterBrown Memorial Hospital02-15-2024 History of Present illness Narrative* Sangeetha Quick DO - 05/30/2023 10:10 AM EST IM PROGRESS NOTE Patient - Rach Munroe Age - 77 [facility] 1945 [id number] ASSESSMENT & PLAN 1. Hypothyroidism, unspecified type [...] moved into a memory unit at a residential, and a son was found at home. She continues to deal with this, along with the recent of her . She is having trouble communicating with the staff wear her mother's residing now and this causes her much consternation. -she continues to have joint pain in her back, knees, neck. She is going to pain management for ESIof the lumbar spine which overall seem to [...] Testing No results found. Sangeetha Quick DO., [facility] Office: [phone] documented in this encounterBrown Memorial Hospital04-06-2023 NoteCONSULTATION CONSULTATION DATE: 07/19/2022 TO: Dr. Quick CHIEF [...] our patients to inform us about any tiey-ell-bneihva medications or herbal remedies/nutritional supplements/alternative remedies. 2. [...] and treatment options with their primary care provider.[facility] [id number] Note CONSULTATION CONSULTATION DATE: 04/26/2022 HISTORY OF [...] her in three months' time unless otherwise indicated.[facility] [id number] NoteCONSULTATION CONSULTATION DATE: 03/27/2022 CHIEF COMPLAINT: Low back [...] would like to proceed. CC: Sangeetha Quick D.O.[facility] [id number] NoteCONSULTATION CONSULTATION DATE: 02/08/2022 This is a very [...] otherwise indicated. The patient agrees with this plan.[facility] 01-11-2022 NoteCONSULTATION CONSULTATION DATE: 01/11/2022 HISTORY OF PRESENT ILLNESS: [...] questions answered. Patient would like to move forward.[facility] 12-14-2021 NoteCONSULTATION PROCEDURE DATE: 12/14/2021 PREOPERATIVE DIAGNOSIS: Bilateral lumbar [...] and will be followed up in the office.[facility] [id number] NoteCONSULTATION CONSULTATION DATE: 12/14/2021 HISTORY OF PRESENT ILLNESS: [...] injections, as well, which she does consent to.[facility] [id number] Note CONSULTATION CONSULTATION DATE: 09/07/2021 HISTORY OF [...] in the fall. She was referred to [facility] Neuro[facility] and is planning to have surgery in the fall following harvest season. 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 Patient feels that she can make it through the summer with a combination of her medication and occasional trigger point injections. 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 She uses heat [...] in three months' time, unless otherwise indicated. [facility] Signed and Approved by: MARIELY YUAN . 09/14/2021 16:04:00[facility] Primary osteoarthritis of left knee- Primary documented in this encounter [facility]* Diagnosis Primary localized osteoarthritis of left knee- Primary Left knee pain, unspecified chronicity [facility] Diagnosis Hypothyroidism, unspecified type- Primary Right foot pain Pain in soft tissues of limb Vitamin D deficiency Cobalamin deficiency Other B-complex deficiencies Lichen planus atrophicus Lichen planus [facility] Diagnosis Hypothyroidism, unspecified type- Primary Cobalamin deficiency Other B-complex deficiencies Hyperlipidemia, unspecified hyperlipidemia type Osteoarthritis of left shoulder, unspecified osteoarthritis type documented [facility] Diagnosis Localized osteoarthritis of left knee- Primary documented [facility] Diagnosis Primary osteoarthritis of knees, bilateral- Primary Osteoarthritis of left shoulder, unspecified osteoarthritis type Immunization due documented in [facility] Diagnosis Osteoarthritis of left shoulder, unspecified osteoarthritis type- Primary documented [facility]* Diagnosis Hordeolum externum of right upper eyelid- Primary Blepharitis of right upper eyelid, unspecified type Age-related osteoporosis without current pathological fracture Encounter for immunization documented in this [facility] Diagnosis Diarrhea, unspecified type- Primary Primary osteoarthritis of knees, bilateral Vitamin D deficiency Cobalamin deficiency Other B-complex deficiencies Age-related osteoporosis without current pathological fracture Nausea and vomiting, unspecified vomiting type documented in this encounter [facility]* Diagnosis Age-related osteoporosis without current pathological fracture- Primary documented in [facility]* Diagnosis Hypothyroidism Unspecified hypothyroidism Deficiency of other specified B group vitamins Vitamin D deficiency, unspecified Hordeolum externum of right upper eyelid documented in this encounter [facility]* Diagnosis Encounter for subsequent annual wellness visit (AWV) in Medicare patient- Primary documented in this encounter [facility]* Diagnosis Hyperlipidemia, unspecified documented in this encounter [facility]* Diagnosis Hyperlipidemia, unspecified hyperlipidemia type- Primary Hypothyroidism, unspecified type Elevated blood pressure reading Elevated blood pressure reading without diagnosis of hypertension Cobalamin deficiency Other B-complex deficiencies documented in this encounter [facility]* Diagnosis Hypothyroidism Unspecified hypothyroidism [facility] Diagnosis Acute pain of right shoulder- Primary Nontraumatic complete tear of right rotator cuff documented in this encounter [facility]* Diagnosis Acute pain of right shoulder- Primary Rotator cuff arthropathy, right documented in this encounter [facility]* Diagnosis Gastroenteritis due to norovirus- Primary Degenerative lumbar spinal stenosis Spinal stenosis of lumbar region Hiatal hernia Diaphragmatic hernia without mention of obstruction or gangrene Lichen planus atrophicus Lichen planus documented [facility]* Diagnosis Cobalamin deficiency Other B-complex deficiencies documented in this [facility]* Diagnosis Hyperlipidemia, unspecified documented in this [facility]* Diagnosis Age-related osteoporosis without current pathological fracture- Primary documented in this [facility]* Diagnosis Vitamin D deficiency, unspecified documented in this [facility] System[facility]ructionsNot on filedocumented in this encounter [facility] SystemInstructionsNot on filedocumented in this encounter [facility] SystemInstructionsNot on filedocumented in this encounter [facility] System[facility]* Attachments The following attachments cannot be sent through Care Everywhere. * Osteoarthritis Discharge Instructions (Spanish) [facility]ructionsNot on file documented in this [facility] SystemInstructionsNot on file documented in this [facility] SystemInstructionsNot on file documented in this [facility] System[facility]ructionsNot on file documented in this [facility] SystemInstructionsNot on file documented in this [facility] SystemInstructionsNot on file documented in this [facility] SystemInstructionsNot on file documented in this [facility] SystemInstructionsNot on file documented in this [facility] SystemInstructionsNot on file documented in this [facility] SystemInstructionsNot on file documented in this encounterPro[facility] SystemInstructionsNot on file documented in this encounterProAk[facility] SystemReason for visit Narrative* Episode Based Medications (Routine) - AuthorizedSpecialtyDiagnoses / ProceduresReferred By ContactReferred To Contact Diagnoses Age-related osteoporosis without current pathological fracture Procedures ND ZOLEDRONIC ACID 1MG ND INJECTION,THERAP/PROPH/DIAGNOST, IV PUSH, INITIAL DRUG Sangeetha Quick DO [address] [place] [address] Phone: tel: fax: Alicia Gaston [facility] [address] [place] [address] Phone: tel: fax: Referral IDStatusReasonStart DateExpiration DateVisits RequestedVisits [id number] [facility] Summary Purpose Family History No Family History [...] and content) DATE CREATED AUTHOR 09/01/2021 [facility] DATE CREATED AUTHOR AUTHOR'S ORGANIZ ATION 08/29/2022 [facility] DATE CREATED AUTHOR AUTHOR'S ORGANIZ ATION 08/21/2024 [facility] DATE CREATED AUTHOR AUTHOR'S ORGANIZ ATION 10/25/2024 [facility] EP[facility] DATE CREATED AUTHOR AUTHOR'S ORGANIZ ATION 11/04/2024 [facility] DATE CREATED AUTHOR AUTHOR'S ORGANIZ ATION 12/30/2024 [facility] DATE CREATED AUTHOR AUTHOR'S ORGANIZ ATION 02/09/2025 [facility] Care Teams (unrecognized sec tion and content) Team MemberRelationshipSpecialtyStart DateEnd Date Sangeetha Quick MD [address] [place] [address] PCP - GeneralInternal Medicine09/10/23Team MemberRelationshipSpecialtyStart Date End Date Sangeetha Quick MD [address] [place] [address] PCP - GeneralInternal Medicine09/10/23Team MemberRelationshipSpecialtyStart Date End Date Sangeetha Quick MD [address] [place] [address] PCP - GeneralInternal Medicine09/10/23Team MemberRelationshipSpecialtyStart Date End Date Sangeetha Quick DO [address] [place] [address] PCP - General11/09/13Team MemberRelationshipSpecialtyStart DateEnd Date Sangeetha Quick DO [address] [place] [address] PCP - General11/09/13Team MemberRelationshipSpecialtyStart DateEnd Date Sangeetha Quick, [address] [place] [address] PCP - General11/09/13Team MemberRelationshipSpecialtyStart DateEnd Date Sangeetha Quick, [address] [place] [place] [address] PCP - General11/09/13Team MemberRelationshipSpecialtyStart DateEnd Date Sangeetha Quick, DO [address] [place] [address] PCP - General11/09/13Team MemberRelationshipSpecialtyStart DateEnd Date Sangeetha Quick, DO [address] [place] [address] PCP - General11/09/13Team MemberRelationshipSpecialtyStart DateEnd Date Sangeetha Quick, DO [address] [place] [address] PCP - General11/09/13Team MemberRelationshipSpecialtyStart DateEnd Date Sangeetha Quick, DO [address] [place] [address] PCP - General11/09/13Team MemberRelationshipSpecialtyStart DateEnd Date Sangeetha Quick, DO [address] [place] [address] PCP - General11/09/13Team MemberRelationshipSpecialtyStart DateEnd Date Sangeetha Quick, DO [address] [place] [address] PCP - General11/09/13Team MemberRelationshipSpecialtyStart DateEnd Date Sangeetha Quick, DO [address] [place] [address] PCP - General11/09/13Team MemberRelationshipSpecialtyStart DateEnd Date Sangeetha Quick, DO [address] [place] [address] PCP - General11/09/13Team MemberRelationshipSpecialtyStart DateEnd Date Sangeetha Quick DO [address] [place] [address] PCP - General11/09/13Team MemberRelationshipSpecialtyStart DateEnd Date Sangeetha Quick MD PCP - GeneralInternal Medicine09/10/23Team MemberRelationshipSpecialtyStart Date End Date Sangeetha Quick MD PCP - GeneralInternal Medicine09/10/23Team MemberRelationshipSpecialtyStart Date End Date Sangeetha Quick MD PCP - GeneralInternal Medicine09/10/23Team MemberRelationshipSpecialtyStart Date End Date Sangeetha Quick MD PCP - GeneralInternal Medicine09/10/23Team MemberRelationshipSpecialtyStart Date End Date Sangeetha Quick DO [address] [place] [address] PCP - General11/09/13Team MemberRelationshipSpecialtyStart DateEnd Date Sangeetha Quick DO [address] [place] [address] PCP - General11/09/13 Reason for Visit (unrecogniz ed section and content) ReasonCommentsPainReasonCommentsHair lossReasonCommentsThyroid Problem HyperlipidemiaReasonCommentsKnee PainLeft kneeReasonCommentslt knee injury, now both hurtingFeeling better. Pain level is at a 6ReasonCommentsInjectionLeft Knee ReasonCommentsswollen right eye.Since sat 01/17ReasonOnset DateCommentsEr Follow-up4ReasonCommentsFollow-upReasonCommentsOutpatient Infusion reclastSpecialtyDiagnoses / ProceduresReferred By ContactReferred To Contact Diagnoses Age-related osteoporosis without current pathological fracture Procedures ND ZOLEDRONIC ACID 1MG ND INJECTION,THERAP/PROPH/DIAGNOST, IV PUSH, INITIAL DRUG Sangeetha Quick, DO [address] [place] [address] Phone: tel: fax: Alicia Gaston [facility] - Medical On[facility] [address] [place] [phone] Phone: tel: fax: Referral IDStatusReasonStart DateExpiration DateVisits RequestedVisits [id number] RefillReason CommentsmawReasonCommentsthyroid, vit d recheckRash on arms 4 daysReasonComments PainReasonOnset DateCommentsEr Follow-up10/26/2024ReasonCommentshospital d/c vomitting/ diarrhea FOR RECORDS PERTAINING TO [...] BE BASED ON THE PRIMARY CLINICAL RECORDS. [employer] [facility]. provides no warranty or guarantee of the accuracy or completeness of information in this document.
--- NOTE | 2025-02-11 09:30 | P.CN_ITS ---
Consult Note: HPI Data of Consult Patient: known to practice within the last 3 years Consult date: 02/11/25 Requesting Physician: Rosina Fleming NP Primary Care Provider: SANGEETHA QUICK Consult Narrative Reason for consult: low back and BLE pain Narrative: Rach Abrams a pleasant 79 year old female presents for evaluation of severe low back and BLE pain. patient rating pain 6-7/10 increased with twisting, pushing, pulling, standing, walking, lifting, stairs, bending, activity. pain improved with sitting and heat. recently underwent bilateral L4-5 TFESI with 50% improvement but moderate BLE pain. utilizing gabapentin 200mg TID, tizanidine, tramadol, tylenol prn with mild benefit. pt has been out of gabapentin for 1 week and would like to restart. pt was experiencing mild dizziness or lightheadedness midday but was taking 200mg around 9am and 200mg around 12 then 200mg in the evening, likely this was just a timing issue causing side effects. cc:: CC: Rosina Fleming NP Review of Systems ROS Musculoskeletal Reports: back pain and extremity pain PFSH PFSH Medical History (Updated 02/11/25 @ 09:36 by Rosina Fleming NP) Rheumatoid arthritis ?M06.9 - Rheumatoid arthritis, unspecified (ICD-10) History of rectocele Low back pain ?M54.50 - Low back pain, unspecified (ICD-10) Hypothyroid ?E03.9 - Hypothyroidism, unspecified (ICD-10) Surgical History (Updated 12/28/24 @ 07:44 by Luzmaria Shannon) History of cholecystectomy ?Z90.49 - Acquired absence of other specified parts of digestive tract (ICD- 10) H/O right heart catheterization ?Z98.890 - Other specified postprocedural states (ICD-10) History of hysterectomy ?Z90.710 - Acquired absence of both cervix and uterus (ICD-10) Meds Home Medications and Allergies Home Medications ?Medication ?Instructions ?Recorded ?Confirmed ?Type acetaminophen 325 mg tablet (Aphen) 650 mg PO Q6H PRN pain 10/10/22 12/28/24 History levothyroxine 50 mcg capsule 50 mcg PO DAILY 10/11/22 12/28/24 History rosuvastatin 10 mg tablet 10 mg PO DAILY 10/11/2212/14 History zoledronic acid 5 mg/100 mL in ea IV .1 YEAR 01/10/23 History mannitol 5 %-water intravenous piggybck (Reclast) cholecalciferol (vitamin D3) 1,250 50,000 unit PO QWEE K 09/11/23 12/28/24 History mcg (50,000 unit) capsule estradiol 0.01% (0.1 mg/gram) 0.25 appful vaginal SANTIAGO Y PRN 09/11/23 12/28/24 History vaginal cream itching gabapentin 100 mg capsule 100 mg PO TID #90 caps 12/1712/28/24 Rx ropinirole 0.25 mg tablet 0.25 mg PO .QHS #90 tabs 08/0712/28/24 Rx tizanidine 2 mg tablet 2 mg PO BID PRN muscle spast icity 12/17/24 12/28/24 Rx #180 tabs tramadol 50 mg tablet 50 mg PO TID PRN pain #90 ta bs 12/17/24 12/28/24 Rx gabapentin 100 mg capsule 200 mg (2 x 100 mg) PO TID # 180 01/07/25 Rx caps tramadol 50 mg tablet 50 mg PO TID PRN pain #90 ta bs 01/07/25 Rx Allergies Allergy/AdvReac Type Severity Reaction Status Date / Time aspirin Allergy Hives Verified 12/28/24 07:39 codeine Allergy Hives Verified 12/28/24 07:39 iodine Allergy Blister Verified 12/28/24 07:39 latex Allergy Blister Verified 12/28/24 07:39 pregabalin (From Lyrica) Allergy Abdominal Verified 12/28/24 07:39 Pain Sulfa (Sulfonamide Allergy Abdominal Verified 12/28/24 07:39 Antibiotics) Pain Exam Constitutional Documenting provider has reviewed patient's vital signs: yes Common normals: no apparent distress, oriented x3, healthy appearing, alert and well nourished General appearance: cooperative HENMT Common normals: normocephalic, hearing grossly normal bilaterally and moist oral mucous membranes Head and scalp: normocephalic Eye Common normals: PERRL Pupil: PERRL Neck & C-Spine Common normals: full ROM General: normal visual inspection Chest Common normals: inspection of chest normal Respiratory Common normals: normal respiratory effort, no retractions and no use of accessory muscles Back & Pelvis Lumbar spine/lower back: ROM limited, pain with ROM, lumbar spinal tenderness, straight leg raise positive right and straight leg raise positive left Other: radiculopathy noted bilateral L4,5,S1 strength 4/5 in BLE Neuro Common normals: oriented x3 Sensorium/orientation: alert Psych Common normals: mental status grossly normal, thought process normal, cooperative, affect normal, speech normal and activity/motor behavior normal Speech: normal speech Thought process: normal thought process Results Additional Findings Additional findings: If on a controlled substance or opioids, I have checked an [place]AR[place] report on this patient and there are no aberrancies noted in the prescribing history.??If on a controlled substance or opioid a drug screen was completed and reviewed within the last year, and if there has not been a drug screen completed we ordered one today to monitor higher risk, state monitored pain medication use. As part of providing excellent, safe, comprehensive care, the following was completed at our patient's visit: 1. A medication reconciliation and review to ensure accurate knowledge of current/active medications, including asking our patients to inform us about any [id number] medications or herbal remedies/nutritional supplements/alternative remedies. 2. A review to specifically ensure our patients have had annual screening for screening for depression, screening for tobacco use, and screening for unhealthy alcohol use. For concerning screenings had a discussion with the patient, provided patient education, and recommended follow-up with primary care provider when appropriate. If patient noted with a risk of falling, they received education on strength, gait, and balance training to prevent future risk of falling. Portions of this note may have been carried over from the previous visit and updated as appropriate. Please note this office utilizes paper charting in addition to the electronic medical record. A list of current medications, vitals, and PMH is available there as the clinical staff outside of myself do not have access to [facility] charting during the clinic day operations. As part of providing quality comprehensive care the current medications, vitals, and PMH were reviewed in the paper chart. Assessment and Plan Assessment and Plan (1) Lumbar stenosis with neurogenic claudication: Assessment and Plan: bilateral L4-5 TFESI 50% improvement ongoing (2) Sacroiliitis: (3) DDD (degenerative disc disease), lumbar: Qualifiers: Disc-related pain type: discogenic back pain and lower extremity pain Qualified Code(s): M51.362 - Other intervertebral disc degeneration, lumbar region with discogenic back pain and lower extremity pain (4) Chronic prescription opiate use: Assessment and Plan: I feel these medications are improving the patient's quality of life and allow them to tolerate activities of daily living as well as participate in recreational activity.? The patient does not report intolerable side effects. The patient is NOT opioid naive and non-pharmacologic and non-opioid treatment has failed to significantly relieve the patient's pain and improve functionality. The patient has a diagnosis that is related to a somatic or visceral pain etiology. ? ?? I reviewed with the patient the potential risks and side effects with the use of? opioid medications including but not limited to respiratory depression,? sedation, and even . Within the last 12 months I have verified the patient has access to naloxone should? these effects occur. The patient was advised to let? their family know they had Naloxone in case they would need to administer? the medication. I advised the patient to avoid the use of any other? sedation substances including alcohol, THC, and benzodiazepines while? taking opioid medications due to the risk of compounding side effects and? detrimental outcomes. within the last 12 months I have reviewed the CREDIT CHARGE AUTHORIZER, pain treatment agreement and urine drug screen.? ?? A drug screen was completed within the last year, and no aberrancies were noted regarding their use of controlled substances. The patient understands they are subject to the terms and conditions of the pain contract that they have signed. ? ?? I have checked an OARRS report on this patient today and there are no aberrancies noted in the prescribing history.? (5) Lumbar spondylosis: (6) Lumbar radiculopathy: Plan The patient has had over 3 months of moderate to severe low back and BLE pain with functional impairment and inadequate response to conservative care including NSAIDS (unless there are contraindication such as concurrent blood thinners), multiple oral or topical pain medications, and home exercise program/physical therapy.? Patient has completed >6 weeks of guided home exercise program and/or formal physical therapy program without relief of their symptoms.? The Oswestry Disability Index was completed, and the patient scored a 27% refer to NS for consultation consider scs trial/implant restart gabapentin 200mg TID at least 6 hours apart. continue tizanidine 4mg bid prn pain/spasms, ropinirole 0.25mg hs, continue tramadol 50mg TID PRN moderate to severe pain continue HEP as tolerated f/u after NS consultation
== END 2025-02-11 08:47 | disposition home or self-care (01) ==
LOC: PM 08:47
PROVIDERS: PCP Internal Medicine; Visit Provider Nurse Practitioner
DX: M48.062 Spinal stenosis, lumbar region with neurogenic claudication (principal); M46.1 Sacroiliitis, not elsewhere classified; M51.362 Other intervertebral disc degeneration, lumbar region with discogenic back pain and lower extremity pain; Z79.891 Long term (current) use of opiate analgesic; M47.816 Spondylosis without myelopathy or radiculopathy, lumbar region; M54.16 Radiculopathy, lumbar region
CPT/HCPCS: G0463